=== PATIENT | female | born 1950 | race Caucasian/White ===

== ENCOUNTER → 2019-12-14 10:54 | Outpatient (BNVA) | payer MEDICARE, MEDICAID, SELFPAY | PROVIDERS: PCP Internal Medicine; Referring Provider Internal Medicine; Visit Provider Obstetrics & Gynecology | DX: N95.0 Postmenopausal bleeding (principal); R93.89 Abnormal findings on diagnostic imaging of other specified body structures | CPT/HCPCS: 99213 ==

== ENCOUNTER 2020-04-19 13:48 | Outpatient (REF) | payer MEDICARE, MEDICAID, SELFPAY ==
[2020-04-19 16:27] LABS: MANUAL DIFF FLAG NO
[2020-04-19 16:32] LABS: Basophils Percent Auto 0.4 % (0-2); Eosinophils Absolute Auto 0.1 X10*3/uL (0.0-0.4); Eosinophils Percent Auto 2.5 % (0-4); Hematocrit 36.3 % (37-47); Hemoglobin 11.8 g/dl (12.0-16.0); Imm Gran Abs Auto 0.02 X10*3/uL (0.00-0.03); Imm Gran Pct Auto 0.4 % (0.0-0.4); Lymphocytes Absolute Auto 1.5 X10*3/uL (1.2-4.9); Lymphocytes Percent Auto 26.3 % (20-40); Mean Corpuscular HGB Conc 32.5 g/dl (31.0-35.0); Mean Corpuscular Hemoglobin 32.2 pg (27.0-33.0); Mean Corpuscular Volume 98.9 fL (80-98); Mean Platelet Volume 9.1 fL (9.4-12.3); Monocytes Absolute Auto 0.5 X10*3/uL (0.1-1.2); Monocytes Percent Auto 9.2 % (2-11); Neutrophils Absolute Auto 3.4 X10*3/uL (2.0-8.3); Neutrophils Percent Auto 61.2 % (45-73); Platelet Count 276 X10*3/uL (160-400); Red Blood Count 3.67 X10*6/uL (4.20-5.50); Red Cell Distribution Width 13.1 % (11.0-16.0); White Blood Count 5.6 X10*3/uL (4.8-10.8)
[2020-04-19 16:45] LABS: Glucose Urine UA NEG (NEG); Leukocyte Esterase Urine NEG (NEG); Nitrite Urine NEG (NEG); PH 5.5 (5.0-8.0); Specific Gravity - Urine >= 1.030 (1.005-1.025); Urine Blood 3+ (NEG); Urine Ketones NEG (NEG); Urine Protein NEG (NEG-TRACE)
[2020-04-19 16:46] LABS: Appearance Urine CLEAR; Color Urine YELLOW
[2020-04-19 16:54] LABS: Bacteria Urine 1+ /LPF; Squamous Epithelial Cell Urine 1+ /LPF; WBC Urine 0 /HPF (0-4)
[2020-04-19 17:01] LABS: Alanine Aminotransferase 107 U/L (0-31); Alkaline Phosphatase 110 U/L (39-117); Anion Gap 14 (12-20); Aspartate Amino Transferase 84 U/L (5-31); Bilirubin Total 0.5 mg/dL (0.0-1.0); Blood Urea Nitrogen 18 mg/dL (9-16); C Reactive Protein 0.98 mg/dL (< or = 0.50); Calcium 8.7 mg/dL (8.4-10.2); Carbon Dioxide 25 mmol/L (22-29); Chloride 105 mmol/L (96-108); Estimated Glomerular Filt Rate > 60; Glucose Random 89 mg/dL (60-115); Lipase 36 U/L (8-78); Potassium 4.5 mmol/L (3.3-5.1); Sodium 139 mmol/L (135-145); Total Protein 7.8 g/dL (6.5-8.0)
== END 2020-04-19 13:49 | disposition home or self-care (01) ==
LOC: HO.HMGCLDS 13:48
PROVIDERS: PCP Internal Medicine; Visit Provider Internal Medicine
DX: R10.9 Unspecified abdominal pain (principal)
CPT/HCPCS: 36415; 80053; 81001; 83690; 85025; 86140

== ENCOUNTER → 2020-04-20 11:12 | Outpatient (BNV) | payer MEDICARE, MEDICAID, SELFPAY | PROVIDERS: PCP Internal Medicine; Visit Provider Internal Medicine | DX: D64.9 Anemia, unspecified (principal) | CPT/HCPCS: 99212; 99213; 99214; G2211 ==

== ENCOUNTER 2020-04-27 15:04 | Outpatient (REF) | payer MEDICARE, MEDICAID, SELFPAY | END 2020-04-27 15:05 | disposition home or self-care (01) | LOC: HO.CT 15:04 | PROVIDERS: PCP Internal Medicine; Visit Provider Internal Medicine | DX: Z13.89 Encounter for screening for other disorder (principal) ==

== ENCOUNTER → 2020-05-02 14:34 | Outpatient (BNVA) | payer MEDICARE, MEDICAID, SELFPAY | PROVIDERS: PCP Internal Medicine; Visit Provider Internal Medicine Cardiovascular Disease | DX: Z13.89 Encounter for screening for other disorder (principal) | CPT/HCPCS: 99212 ==

== ENCOUNTER 2020-05-03 12:36 | Outpatient (REF) | payer MEDICARE, MEDICAID, SELFPAY ==
--- NOTE | ~2020-05-03 | CT_ITS ---
EXAMINATION: CT ABDOMEN AND PELVIS WITH CONTRAST CLINICAL INFORMATION: Abdominal pain COMPARISON: Previous CT of the abdomen and pelvis June 2019 and pelvic ultrasound October 2019 and abdominal ultrasound October 2017 TECHNIQUE: Multidetector volumetric images were obtained from the superior aspect of the liver through the pubic symphysis following administration 85 mL of Omnipaque 350 intravenous contrast. Sagittal and coronal reformatted images were obtained on the technologist's workstation. Oral contrast: Yes This CT examination was performed using dose optimization techniques as appropriate, variously including the following: *Automated exposure control *Adjustment of mA and/or kV according to patient size (this includes techniques or standardized protocols for targeted exams where dose is matched to indication/reason for exam; i.e. extremities or head) *Use of iterative reconstruction technique DLP: 537 mGy-cm FINDINGS: LUNG BASES: There are increased peripheral interstitial markings at the lung bases suggestive of interstitial lung disease. LIVER, GALLBLADDER, AND BILIARY TREE: The liver is low in attenuation suggestive of fatty infiltration. The gallbladder is been removed. There is intra and extrahepatic biliary duct dilatation. This is unchanged from previous CT June 2019. The common bile duct measures 1.8 cm. The common bile tapers likely that of the pancreas. No common bile duct stone is appreciated. PANCREAS: Unremarkable. SPLEEN: Unremarkable. ADRENAL GLANDS: Unremarkable. KIDNEYS AND URETERS: There are small bilateral low-attenuation renal lesions probably representing cysts. The largest measures 1 cm in the lower pole of the right kidney. BLADDER: Not optimally distended. GASTROINTESTINAL TRACT: There are dilated fluid-filled loops of small bowel in the lower abdomen and pelvis. There is a some small bowel fecalization. Appearance is concerning for small bowel obstruction. There may be a transition zone in the pelvis. The distal ileum does not appear dilated. There are multiple surgical clips seen in the left pelvis and presacral region. There is a small amount of fluid in the pelvis. ABDOMINAL WALL: No significant hernia is appreciated. LYMPH NODES: Normal. VASCULAR: There is evidence of atherosclerotic disease. No aneurysm is seen. PELVIC VISCERA: There is low-attenuation seen in the central uterus questionable for endometrial fluid or thickening. This measures 1.1 cm in AP dimension. OSSEOUS STRUCTURES: There are degenerative changes of the spine. There are degenerative changes at the hip joints. CT/CT abdomen pelvis w con IMPRESSION: Dilated fluid-filled small bowel suggestive of distal small bowel obstruction. The level of obstruction may be in the pelvis adjacent to surgical clips. Small amount of fluid in the pelvis. Low-attenuation in the central uterus questionable for endometrial fluid or thickening. Follow-up pelvic ultrasound should be considered, particularly if there is history of vaginal bleeding. Post cholecystectomy. Intrahepatic and extrahepatic biliary duct dilatation similar to previous exam. Small renal cysts. Mild interstitial lung disease at the lung bases. Findings will be communicated by the [place] work flow systems navigator Brianna Gordon.
[2020-05-03] MEDS: Barium Sulfate Oral (Berry) 450 ML ORAL.SUSP 900 ML PO (15:15)
[2020-05-03] MEDS: iohexoL 350 MG/ML 100 ML INFUS..BTL IV (15:16)
== END 2020-05-03 12:37 | disposition home or self-care (01) ==
LOC: HO.CT 12:36
PROVIDERS: PCP Internal Medicine; Visit Provider Internal Medicine
DX: R10.9 Unspecified abdominal pain (principal)
CPT/HCPCS: 74177; Q3014; Q9967

== ENCOUNTER 2020-05-09 16:19 | Outpatient (REF) | payer MEDICARE, MEDICAID, SELFPAY ==
[2020-05-09 17:35] LABS: Amylase 79 U/L (28-100); Lactate Dehydrogenase 238 U/L (122-220); Lipase 36 U/L (8-78)
== END 2020-05-09 16:20 | disposition home or self-care (01) ==
LOC: HO.LAB 16:19
PROVIDERS: PCP Internal Medicine; Visit Provider Nurse Practitioner
DX: R31.9 Hematuria, unspecified (principal); R10.9 Unspecified abdominal pain; R63.4 Abnormal weight loss; R11.2 Nausea with vomiting, unspecified
CPT/HCPCS: 36415; 82150; 83615; 83690

== ENCOUNTER 2020-05-11 14:10 | Outpatient (REF) | payer MEDICARE, MEDICAID, SELFPAY ==
--- NOTE | ~2020-05-11 | US_ITS ---
EXAMINATION: US RETROPERITONEAL LIMITED (RENAL ONLY) CLINICAL INFORMATION: Hematuria. COMPARISON: CT abdomen pelvis 05/03/2020. Ultrasound abdomen 10/13/2018 and 10/22/2017. X-ray abdomen 06/06/2017. X-ray KUB 05/04/2016. TECHNIQUE: Real-time imaging of the kidneys. FINDINGS: RIGHT KIDNEY: 10.8 x 6.0 x 5.1 cm (SAG x AP x TRV). The kidney is normal in size, contour, and echogenicity. Renal cortical thickness is normal. There is a 1.2 x 1.4 x 1.4 cm cyst in the upper pole. No renal calculi or hydronephrosis. LEFT KIDNEY: 10.1 x 4.8 x 3.9 cm (SAG x AP x TRV). The kidney is normal in size, contour, and echogenicity. Renal cortical thickness is normal. There is a 1.2 x 1.1 x 0.9 cm cyst in the upper pole. No renal calculi or hydronephrosis. US/US renal BI IMPRESSION: Small bilateral renal cysts.
== END 2020-05-11 14:11 | disposition home or self-care (01) ==
LOC: HO.HMGCX 14:10
PROVIDERS: Visit Provider Nurse Practitioner
DX: R10.9 Unspecified abdominal pain (principal); R11.2 Nausea with vomiting, unspecified; R31.9 Hematuria, unspecified; R63.4 Abnormal weight loss
CPT/HCPCS: 76775

== ENCOUNTER 2020-05-19 09:05 | Outpatient (REF) | payer MEDICARE, MEDICAID, SELFPAY ==
--- NOTE | ~2020-05-19 | FL_ITS ---
EXAMINATION: FL UPPER GI SERIES AND SMALL BOWEL SERIES CLINICAL INFORMATION: R10.33 - Periumbilical pain COMPARISON: CT abdomen and pelvis 05/03/2020 TECHNIQUE: Upper GI series and small bowel follow-through and are performed using fluoroscopic evaluation in addition to multiple fluoroscopic spot views and overhead images. The patient is imaged both upright and prone and using both thick and thin barium sulfate along with effervescent granules. Fluoroscopy time: 1.4 minutes DAP: 33.17 Gycm2 Fluoroscopic spot images: 13 Overhead Images: 6 FINDINGS: Esophageal motility appears normal. There is no obstruction, stricture, or ulceration. Small sliding hiatal hernia is noted during fluoroscopy and there is spontaneous gastroesophageal reflux to the proximal thoracic esophagus. The stomach shows no thickened folds or ulcer crater or outlet obstruction. The duodenal bulb is pliable and without ulcer crater or scarring. The post bulbar duodenum is unremarkable. Contrast is followed through the small bowel and reaches the colon within 90 minutes. There is no small bowel dilatation, angulated or tethered loops, or abnormal thickening of small bowel folds. There are no fixed or rigid segments of small bowel on fluoroscopic exam with compression. No abnormal bowel seen in the deep pelvis in area of small bowel thickening noted on recent CT. The terminal ileum appears normal. FL/FL small bowel follow through IMPRESSION: 1. Small sliding hiatal hernia with spontaneous gastroesophageal reflux to the proximal thoracic esophagus. No ulceration or scarring or stricture. 2. Normal small bowel series.
--- NOTE | ~2020-05-19 | FL_ITS ---
EXAMINATION: FL UPPER GI SERIES AND SMALL BOWEL SERIES CLINICAL INFORMATION: R10.33 - Periumbilical pain COMPARISON: CT abdomen and pelvis 05/03/2020 TECHNIQUE: Upper GI series and small bowel follow-through and are performed using fluoroscopic evaluation in addition to multiple fluoroscopic spot views and overhead images. The patient is imaged both upright and prone and using both thick and thin barium sulfate along with effervescent granules. Fluoroscopy time: 1.4 minutes DAP: 33.17 Gycm2 Fluoroscopic spot images: 13 Overhead Images: 6 FINDINGS: Esophageal motility appears normal. There is no obstruction, stricture, or ulceration. Small sliding hiatal hernia is noted during fluoroscopy and there is spontaneous gastroesophageal reflux to the proximal thoracic esophagus. The stomach shows no thickened folds or ulcer crater or outlet obstruction. The duodenal bulb is pliable and without ulcer crater or scarring. The post bulbar duodenum is unremarkable. Contrast is followed through the small bowel and reaches the colon within 90 minutes. There is no small bowel dilatation, angulated or tethered loops, or abnormal thickening of small bowel folds. There are no fixed or rigid segments of small bowel on fluoroscopic exam with compression. No abnormal bowel seen in the deep pelvis in area of small bowel thickening noted on recent CT. The terminal ileum appears normal. FL/FL upper GI w air IMPRESSION: 1. Small sliding hiatal hernia with spontaneous gastroesophageal reflux to the proximal thoracic esophagus. No ulceration or scarring or stricture. 2. Normal small bowel series.
== END 2020-05-19 09:06 | disposition home or self-care (01) ==
LOC: HO.XRAY 09:05
PROVIDERS: PCP Internal Medicine; Visit Provider Nurse Practitioner
DX: R10.33 Periumbilical pain (principal); R31.9 Hematuria, unspecified; R10.9 Unspecified abdominal pain; R63.4 Abnormal weight loss; R11.2 Nausea with vomiting, unspecified
CPT/HCPCS: 74246; 74248; 74250

== ENCOUNTER 2020-05-30 14:36 | Outpatient (REF) | payer MEDICARE, MEDICAID, SELFPAY ==
--- NOTE | ~2020-05-30 | US_ITS ---
EXAMINATION: US PELVIC COMPLETE CLINICAL INFORMATION: Postmenopausal bleeding COMPARISON: None TECHNIQUE: Transabdominal and transvaginal ultrasound pelvis is performed. FINDINGS: The uterus is retroverted measuring 4.7 cm in length, 2.5 cm in AP and 3.2 cm wide. The uterus is homogeneous in echotexture. The endometrial thickness is 0.34 cm. Both ovaries are unremarkable. No focal lesion seen. There is no free fluid in the cul-de-sac. US/US pelvic complete IMPRESSION: Unremarkable uterus. Ovaries are not seen.
--- NOTE | ~2020-05-30 | US_ITS ---
EXAMINATION: US PELVIC COMPLETE CLINICAL INFORMATION: Postmenopausal bleeding COMPARISON: None TECHNIQUE: Transabdominal and transvaginal ultrasound pelvis is performed. FINDINGS: The uterus is retroverted measuring 4.7 cm in length, 2.5 cm in AP and 3.2 cm wide. The uterus is homogeneous in echotexture. The endometrial thickness is 0.34 cm. Both ovaries are unremarkable. No focal lesion seen. There is no free fluid in the cul-de-sac. US/US transvaginal IMPRESSION: Unremarkable uterus. Ovaries are not seen.
== END 2020-05-30 14:37 | disposition home or self-care (01) ==
LOC: HO.HMGCX 14:36
PROVIDERS: Visit Provider Internal Medicine
DX: N95.0 Postmenopausal bleeding (principal)
CPT/HCPCS: 76830; 76856

== ENCOUNTER 2020-06-01 14:51 | Outpatient (REF) | payer MEDICARE, MEDICAID, SELFPAY ==
[2020-06-01 16:56] LABS: Alanine Aminotransferase 109 U/L (0-31); Albumin Level 3.8 g/dL (3.5-5.0); Alkaline Phosphatase 111 U/L (39-117); Amylase 81 U/L (28-100); Anion Gap 14 (12-20); Aspartate Amino Transferase 100 U/L (5-31); Bilirubin Total 0.4 mg/dL (0.0-1.0); Blood Urea Nitrogen 22 mg/dL (9-16); Calcium 8.5 mg/dL (8.4-10.2); Carbon Dioxide 26 mmol/L (22-29); Chloride 105 mmol/L (96-108); Estimated Glomerular Filt Rate > 60; Glucose Random 103 mg/dL (60-115); Lipase 46 U/L (8-78); Potassium 4.3 mmol/L (3.3-5.1); Sodium 141 mmol/L (135-145); Total Protein 7.4 g/dL (6.5-8.0)
== END 2020-06-01 14:52 | disposition home or self-care (01) ==
LOC: HO.LAB 14:51
PROVIDERS: PCP Internal Medicine; Visit Provider Nurse Practitioner
DX: R10.33 Periumbilical pain (principal); R10.9 Unspecified abdominal pain; R31.9 Hematuria, unspecified; R11.2 Nausea with vomiting, unspecified; R63.4 Abnormal weight loss; Z87.19 Personal history of other diseases of the digestive system
CPT/HCPCS: 36415; 80053; 82150; 83690

== ENCOUNTER 2020-06-02 15:43 | Outpatient (REF) | payer MEDICARE, MEDICAID, SELFPAY | END 2020-06-02 15:44 | disposition home or self-care (01) | LOC: HO.LAB 15:43 | PROVIDERS: PCP Internal Medicine; Visit Provider Nurse Practitioner | DX: R10.33 Periumbilical pain (principal); R10.9 Unspecified abdominal pain; R31.9 Hematuria, unspecified; R11.2 Nausea with vomiting, unspecified; R63.4 Abnormal weight loss; Z87.19 Personal history of other diseases of the digestive system | CPT/HCPCS: 87338 ==

== ENCOUNTER 2020-06-08 12:26 | Outpatient (REF) | payer MEDICARE, MEDICAID, SELFPAY ==
--- NOTE | ~2020-06-08 | CT_ITS ---
EXAMINATION: CT ABDOMEN AND PELVIS WITH CONTRAST CLINICAL INFORMATION: Nausea and vomiting COMPARISON: 05/03/2020 CT. Fluoroscopy study from 05/19/2020. TECHNIQUE: Multidetector volumetric images were obtained from the superior aspect of the liver through the pubic symphysis following administration 85 mL of Omnipaque 350 intravenous contrast. Sagittal and coronal reformatted images were obtained on the technologist's workstation. Oral contrast: Yes This CT examination was performed using dose optimization techniques as appropriate, variously including the following: *Automated exposure control *Adjustment of mA and/or kV according to patient size (this includes techniques or standardized protocols for targeted exams where dose is matched to indication/reason for exam; i.e. extremities or head) *Use of iterative reconstruction technique DLP: 383 mGy-cm FINDINGS: LUNG BASES: Minimal bibasilar reticulation may represent atelectasis or mild fibrotic change. The visualized cardiac structures are unremarkable. LIVER, GALLBLADDER, AND BILIARY TREE: The liver is normal in size, shape, and attenuation. No focal hepatic lesion or intrahepatic biliary ductal dilatation is present. Cholecystectomy. Dilated appearance of the common bile duct is unchanged from prior. No ductal filling defect. PANCREAS: Unremarkable. SPLEEN: Unremarkable. ADRENAL GLANDS: Unremarkable. KIDNEYS AND URETERS: The kidneys are normal in size, shape, and attenuation. No hydronephrosis, hydroureter, or calculi seen. No perinephric stranding. Hypoattenuating lesions are seen in both kidneys, unchanged from prior and likely representing cysts. BLADDER: Decompressed with no gross abnormality. GASTROINTESTINAL TRACT: The stomach is unremarkable. The small bowel is normal in caliber. There is no obstruction. Contrast extends into the colon. No colonic wall thickening or acute inflammation. Mild to moderate colonic stool burden. No free air. Trace pelvic free fluid. ABDOMINAL WALL: No significant hernia is appreciated. LYMPH NODES: Normal. VASCULAR: Normal caliber aorta with mild atherosclerotic calcification. PELVIC VISCERA: Retroverted uterus. No adnexal mass. OSSEOUS STRUCTURES: No acute or suspicious osseous abnormality. Multilevel degenerative changes of the spine. Degenerative changes are seen at both hips. Increased trabeculation seen in both iliac bones near the sacroiliac joints. This is similar to previous imaging. This is nonspecific. Could be associated with Paget's disease. CT/CT abdomen pelvis w con IMPRESSION: No acute abnormality of the abdomen or pelvis. There is no obstruction. No inflammatory changes. Chronic findings, including renal cysts and dilatation of the common bile duct. Likely chronic changes at the lung bases.
== END 2020-06-08 12:27 | disposition home or self-care (01) ==
LOC: HO.CT 12:26
PROVIDERS: Visit Provider Nurse Practitioner
DX: R11.2 Nausea with vomiting, unspecified (principal)
CPT/HCPCS: 74177; Q9967

== ENCOUNTER → 2020-06-14 10:31 | Outpatient (BNVA) | payer MEDICARE, MEDICAID, SELFPAY | PROVIDERS: PCP Internal Medicine; Visit Provider Nurse Practitioner | DX: R10.33 Periumbilical pain (principal); R11.2 Nausea with vomiting, unspecified; R63.4 Abnormal weight loss; K21.00 Gastro-esophageal reflux disease with esophagitis, without bleeding; M54.6 Pain in thoracic spine; Z87.19 Personal history of other diseases of the digestive system; Z85.038 Personal history of other malignant neoplasm of large intestine | CPT/HCPCS: Q3014 ==

== ENCOUNTER 2020-06-16 17:00 | Outpatient (REF) | payer MEDICARE, MEDICAID, SELFPAY ==
[2020-06-16 17:38] LABS: Ammonia 47 umol/L (13-55)
[2020-06-16 18:11] LABS: MANUAL DIFF FLAG NO
[2020-06-16 18:28] LABS: Basophils Percent Auto 0.2 % (0-2); Eosinophils Absolute Auto 0.1 X10*3/uL (0.0-0.4); Hematocrit 34.8 % (37-47); Hemoglobin 11.7 g/dl (12.0-16.0); Imm Gran Abs Auto 0.04 X10*3/uL (0.00-0.03); Imm Gran Pct Auto 0.7 % (0.0-0.4); Lymphocytes Absolute Auto 1.3 X10*3/uL (1.2-4.9); Lymphocytes Percent Auto 21.4 % (20-40); Mean Corpuscular HGB Conc 33.6 g/dl (31.0-35.0); Mean Corpuscular Hemoglobin 32.7 pg (27.0-33.0); Mean Corpuscular Volume 97.2 fL (80-98); Monocytes Absolute Auto 0.4 X10*3/uL (0.1-1.2); Monocytes Percent Auto 7.1 % (2-11); Neutrophils Absolute Auto 4.1 X10*3/uL (2.0-8.3); Neutrophils Percent Auto 68.6 % (45-73); Platelet Count 283 X10*3/uL (160-400); Red Blood Count 3.58 X10*6/uL (4.20-5.50); Red Cell Distribution Width 13.2 % (11.0-16.0)
[2020-06-16 18:34] LABS: C Reactive Protein 0.39 mg/dL (< or = 0.50); Rheumatoid Factor 21.1 IU/mL (<15.0)
[2020-06-16 19:12] LABS: Erythrocyte Sedimentation Rate 69 MM/HR (0-20)
[2020-06-17 04:32] LABS: Hepatitis B Core Antibody Nonreactive (Nonreactive); ~HepC Num1 0.13 S/CO (0.00-0.79); ~Hepatitis A Antibody IgM Nonreactive (Nonreactive); ~Hepatitis C Antibody Nonreactive (Nonreactive)
[2020-06-17 04:57] LABS: HBS Num1 0.68 mIU/mL (0-7.99); Hepatitis B Surface Antigen Negative (Negative); ~Hepatitis B Surface Antibody NONREACTIVE (Nonreactive)
[2020-06-17 07:48] LABS: Monotest Negative (Negative)
[2020-06-19 22:37] LABS: Transglutaminase Ab IgG 6 U/mL; Transglutaminase IgA 1 U/mL
[2020-06-20 13:17] LABS: Gliadin Deamidated IgA Ab 6 Units; Gliadin Deamidated IgG Ab 2 Units
[2020-06-20 14:51] LABS: Mitochondrial Antibodies NEGATIVE (NEGATIVE)
[2020-06-20 22:01] LABS: Anti Nuclear Antibody Pattern Nuclear, Speckled; Anti Nuclear Antibody Screen POSITIVE (NEGATIVE)
[2020-06-23 12:47] LABS: Smooth Muscle Antibody <20 U (<20)
== END 2020-06-16 17:01 | disposition home or self-care (01) ==
LOC: HO.LAB 17:00
PROVIDERS: PCP Internal Medicine; Visit Provider Nurse Practitioner
DX: R10.9 Unspecified abdominal pain (principal); M54.6 Pain in thoracic spine
CPT/HCPCS: 36415; 82105; 82140; 83516; 85025; 85652; 86038; 86039; 86140; 86255; 86256; 86308; 86431; 86704; 86706; 86709; 86803; 87340

== ENCOUNTER 2020-06-23 14:33 | Outpatient (REF) | payer MEDICARE, MEDICAID, SELFPAY ==
--- NOTE | ~2020-06-23 | XR_ITS ---
EXAMINATION: XR THORACIC SPINE CLINICAL INFORMATION: Pain COMPARISON: None TECHNIQUE: 3 views of the thoracic spine were obtained. FINDINGS: There is mild curvature of the proximal thoracic spine to the right with apex at T4 and lower thoracic spine to the left with apex at T12. Bone alignment is otherwise normal. There is multilevel degenerative spondylosis and degenerative disc disease. There are degenerative changes of the visualized cervical spine. No acute fracture or dislocation is seen. Paraspinal soft tissues are normal. There are old right proximal rib fractures. XR/XR thoracic spine 3V IMPRESSION: Multilevel degenerative changes.
[2020-06-23 16:27] LABS: Appearance Urine CLEAR; Color Urine YELLOW; Estimated Average Glucose 100 mg/dL; Glucose Urine UA NEG (NEG); Hemoglobin A1c % 5.1 %; Leukocyte Esterase Urine NEG (NEG); Nitrite Urine NEG (NEG); PH 5.5 (5.0-8.0); Specific Gravity - Urine >= 1.030 (1.005-1.025); Urine Blood NEG (NEG); Urine Ketones NEG (NEG); Urine Protein NEG (NEG-TRACE)
[2020-06-23 16:42] LABS: Alanine Aminotransferase 89 U/L (0-31); Albumin Level 3.9 g/dL (3.5-5.0); Alkaline Phosphatase 106 U/L (39-117); Anion Gap 11 (12-20); Aspartate Amino Transferase 69 U/L (5-31); Bilirubin Total 0.4 mg/dL (0.0-1.0); Blood Urea Nitrogen 19 mg/dL (9-16); Carbon Dioxide 25 mmol/L (22-29); Chloride 108 mmol/L (96-108); Estimated Glomerular Filt Rate > 60; Glucose Random 71 mg/dL (60-115); Potassium 5.2 mmol/L (3.3-5.1); Sodium 139 mmol/L (135-145); Total Protein 7.5 g/dL (6.5-8.0)
== END 2020-06-23 14:34 | disposition home or self-care (01) ==
LOC: HO.HMGCLDS 14:33
PROVIDERS: Absent Provider Nurse Practitioner; PCP Internal Medicine; Visit Provider Internal Medicine
DX: R10.9 Unspecified abdominal pain (principal); E83.110 Hereditary hemochromatosis; R73.9 Hyperglycemia, unspecified; M54.9 Dorsalgia, unspecified
CPT/HCPCS: 36415; 72072; 80053; 81003; 83036

== ENCOUNTER → 2020-07-06 15:28 | Outpatient (BNVA) | payer MEDICARE, MEDICAID, SELFPAY | PROVIDERS: PCP Internal Medicine; Visit Provider Nurse Practitioner | DX: Z13.89 Encounter for screening for other disorder (principal) | CPT/HCPCS: Q3014 ==

== ENCOUNTER 2020-08-03 13:55 | Outpatient (REF) | payer MEDICARE, MEDICAID, SELFPAY ==
[2020-08-06 23:07] LABS: HPV 16 RNA NOT DETECTED (NOT DETECTED); HPV mRNA E6/E7 rflx Detected (Not Detected)
== END 2020-08-03 13:56 | disposition home or self-care (01) ==
LOC: HO.LAB 13:55
PROVIDERS: Visit Provider Obstetrics & Gynecology
DX: Z01.419 Encounter for gynecological examination (general) (routine) without abnormal findings (principal); Z11.51 Encounter for screening for human papillomavirus (HPV); N95.0 Postmenopausal bleeding; Z78.0 Asymptomatic menopausal state
CPT/HCPCS: 87624; 87625; 88142

== ENCOUNTER 2020-08-19 21:18 | Observation (INO) | payer MEDICARE, MEDICAID, SELFPAY ==
--- NOTE | 2020-08-19 | ECG_ITS ---
Test Reason : DIZZINESS Blood Pressure : / mmHG Vent. Rate : 077 BPM Atrial Rate : 077 BPM P-R Int : 152 ms QRS Dur : 100 ms QT Int : 406 ms P-R-T Axes : 035 -26 -02 degrees QTc Int : 459 ms Normal sinus rhythm Minimal voltage criteria for LVH, may be normal variant Cannot rule out Anterior infarct (cited on or before 19-AUG-2020) Abnormal ECG When compared with ECG of 12-MAR-2018 23:37, Incomplete right bundle branch block is no longer Present Referred By: Priscilla Doyle Electronically Signed By:MARGIE ALLEN MD
--- NOTE | ~2020-08-19 | CT_ITS ---
EXAMINATION: CT HEAD WITHOUT CONTRAST CLINICAL INFORMATION: Vertigo COMPARISON: 10/08/2017 TECHNIQUE: Contiguous axial imaging was performed from the skull base to vertex without intravenous administration of contrast. This CT examination was performed using dose optimization techniques as appropriate, variously including the following: *Automated exposure control *Adjustment of mA and/or kV according to patient size (this includes techniques or standardized protocols for targeted exams where dose is matched to indication/reason for exam; i.e. extremities or head) *Use of iterative reconstruction technique DLP: 638 mGy-cm FINDINGS: There is no evidence of acute intracranial hemorrhage or territorial infarction. No abnormal mass effect or midline shift is seen. Kerr to white matter differentiation is well preserved. No extra-axial fluid collections are identified. The ventricles are normal in size. Calcifications are noted in the bilateral basal ganglia and also in the bilateral centrum semiovale. The osseous structures and soft tissues are normal. The mastoid air cells and visualized portions of the paranasal sinuses are well aerated. CT/CT head/brain wo con IMPRESSION: No acute intracranial pathology.
--- NOTE | ~2020-08-19 | CT_ITS ---
EXAMINATION: CT ABDOMEN AND PELVIS WITHOUT CONTRAST CLINICAL INFORMATION: Abdominal pain COMPARISON: 06/08/2020 TECHNIQUE: Multidetector volumetric imaging was performed from the superior aspect of the liver through the pubic symphysis. Sagittal and coronal reformatted images were obtained on the technologist's workstation. This CT examination was performed using dose optimization techniques as appropriate, variously including the following: *Automated exposure control *Adjustment of mA and/or kV according to patient size (this includes techniques or standardized protocols for targeted exams where dose is matched to indication/reason for exam; i.e. extremities or head) *Use of iterative reconstruction technique DLP: 553 mGy-cm FINDINGS: The lack of intravenous contrast limits evaluation of the solid visceral organs including the liver, spleen, pancreas, and kidneys. LUNG BASES: Bibasilar peripheral reticulation again seen suggesting mild fibrosis. Normal heart size. LIVER, GALLBLADDER, AND BILIARY TREE: Liver has a nodular contour suggesting cirrhosis status post cholecystectomy. Chronic dilation of the common bile duct up to 1.7 cm. PANCREAS: Limited non-contrast evaluation is normal. No nadira-pancreatic fluid. SPLEEN: Limited non-contrast evaluation is normal. ADRENAL GLANDS: Normal; no adrenal mass. KIDNEYS AND URETERS: Limited non-contrast evaluation is normal. No hydronephrosis, hydroureter, or calculi seen. No perinephric stranding. GASTROINTESTINAL TRACT: Stomach and small bowel are nondilated. Tortuous colon. Scattered colonic diverticulosis. Again seen are surgical clips along the course of the sigmoid colon. Small volume of pelvic free fluid again seen similar perhaps slightly increased from the prior study 06/08/2020. ABDOMINAL WALL: No hernia seen. LYMPH NODES: No pathologically enlarged lymph nodes in the abdomen or pelvis. VASCULAR: Normal caliber abdominal aorta. BLADDER: Unremarkable. PELVIC VISCERA: Normal noncontrast appearance of the uterus and ovaries. OSSEOUS STRUCTURES: No acute or suspicious osseous abnormalities. CT/CT abdomen pelvis wo con IMPRESSION: No acute CT findings. Surgical clips adjacent the distal sigmoid colon. Chronic common bile duct dilation.
[2020-08-19 21:22] VITALS: BP 123/77; BP 146/82; PULSE 78; PULSE 87; RESP 18; TEMP 36.9; O2SAT 95; O2SAT 97; BMI 29.0
[2020-08-19 21:42] LABS: MANUAL DIFF FLAG NO
[2020-08-19 21:43] LABS: Basophils Percent Auto 0.2 % (0-2); Eosinophils Absolute Auto 0.1 X10*3/uL (0.0-0.4); Eosinophils Percent Auto 0.9 % (0-4); Hematocrit 33.4 % (37-47); Hemoglobin 11.2 g/dl (12.0-16.0); Imm Gran Abs Auto 0.02 X10*3/uL (0.00-0.03); Imm Gran Pct Auto 0.3 % (0.0-0.4); Mean Corpuscular HGB Conc 33.5 g/dl (31.0-35.0); Mean Corpuscular Hemoglobin 32.7 pg (27.0-33.0); Mean Corpuscular Volume 97.4 fL (80-98); Mean Platelet Volume 8.7 fL (9.4-12.3); Monocytes Absolute Auto 0.4 X10*3/uL (0.1-1.2); Monocytes Percent Auto 6.2 % (2-11); Neutrophils Absolute Auto 4.9 X10*3/uL (2.0-8.3); Neutrophils Percent Auto 76.4 % (45-73); Platelet Count 231 X10*3/uL (160-400); Red Blood Count 3.43 X10*6/uL (4.20-5.50); White Blood Count 6.5 X10*3/uL (4.8-10.8)
[2020-08-19 22:00] LABS: Glucose Urine UA NEG (NEG); Leukocyte Esterase Urine NEG (NEG); Nitrite Urine NEG (NEG); Specific Gravity - Urine <= 1.005 (1.005-1.025); Urine Blood NEG (NEG); Urine Ketones NEG (NEG); Urine Protein NEG (NEG-TRACE)
[2020-08-19 22:01] VITALS: BP 113/67; PULSE 70; RESP 24; TEMP 37.1; O2SAT 97
[2020-08-19 22:05] LABS: Appearance Urine CLEAR; Color Urine YELLOW
[2020-08-19 22:16] LABS: Alanine Aminotransferase 69 U/L (0-31); Albumin Level 3.9 g/dL (3.5-5.0); Alkaline Phosphatase 110 U/L (39-117); Anion Gap 11 (12-20); Aspartate Amino Transferase 62 U/L (5-31); Bilirubin Total 0.3 mg/dL (0.0-1.0); Blood Urea Nitrogen 18 mg/dL (9-16); Calcium 8.7 mg/dL (8.4-10.2); Carbon Dioxide 24 mmol/L (22-29); Chloride 106 mmol/L (96-108); Creatinine Clr Calc Pharmacy 66.8; Estimated Glomerular Filt Rate > 60; Glucose Random 100 mg/dL (60-115); Potassium 4.3 mmol/L (3.3-5.1); Sodium 137 mmol/L (135-145); Total Protein 7.4 g/dL (6.5-8.0)
[2020-08-19 22:21] LABS: Troponin-I High Sensitivity < 3.5 ng/L (<3.5-17.0)
--- NOTE | 2020-08-19 22:41 | ED.NAVMDI ---
HPI - Nausea/Vomiting/Diarrhea General Chief complaint: Nausea/Vomiting/Diarrhea Stated complaint: nausea vomiting Time Seen by Provider: 08/19/20 22:38 History of Present Illness HPI Narrative: Patient is a 71-year-old female. Presents today with having sudden onset of spinning sensation. The sensations worse with movement. Worse with turning her head. There is no chest pain. There is positive nausea vomiting. There is no focal weakness. Patient is from home. No history of similar symptoms. No changes in hearing. No cough no congestion or upper respiratory symptoms. Patient from home. No new medication. No travel history. Related Data Home Medications Medication Instructions Recorded Confirmed cetirizine 10 mg tablet 10 mg PO DAILY 12/09/19 07/19/20 dicyclomine 20 mg tablet 20 mg PO QID 12/09/19 07/19/20 epinephrine 0.3 mg/0.3 mL 0.3 mg IM USEASDIRECTD 12/09/19 07/19/20 injection, auto-injector metoprolol succinate 25 mg 25 mg PO DAILY 12/09/19 07/19/20 tablet,extended release 24 hr Previous Rx's Medication Instructions Recorded pantoprazole 40 mg tablet,delayed 40 mg PO DAILY #90 tab 02/12/20 release cholecalciferol (vitamin D3) 125 125 mcg PO DAILY #30 tab 03/02/20 mcg (5,000 unit) tablet [id number] 1 cap PO TID #90 cap 04/19/20 24,000-76,000-120,000 unit capsule,delayed rel hydrocortisone 2.5 % topical cream 1 appl MA BID PRN #30 g 05/03/20 with perineal applicator simethicone 180 mg capsule 180 mg PO QID 30 Days #120 cap 05/03/20 sucralfate 100 mg/mL oral 10 ml PO BID 30 Days #600 ml 05/03/20 suspension fluticasone propionate 50 50 mcg INTRANASAL DAILY #16 g 08/12/20 mcg/actuation nasal spray,suspension permethrin 1 % topical liquid 60 ml TOPICAL ONCE #59 ml 08/12/20 Allergies Allergy/AdvReac Type Severity Reaction Status Date / Time No Known Allergies Allergy Verified 08/03/20 14:05 [No Known Allergies*] Review of Systems Review of Systems: Constitutional: No Weight loss, No Fever, No Chills, No Night Sweats, No Fatigue, No Malaise ENT/Mouth: No Hearing loss, No Ear Pain, No Nasal Congestion, No Sinus Pain, No Hoarseness, No sore throat, No Rhinorrhea, No Swallowing Difficulty Eyes: No Eye Pain, No Swelling, No Redness, No Foreign Body, No Discharge, No Vision Changes Cardiovascular: No Chest Pain, No SOB, No Dyspnea on Exertion, No Orthopnea, No Edema, No Palpitations Respiratory: No Cough, No Sputum, No Wheezing, No Smoke Exposure, No Dyspnea Gastrointestinal: No Nausea, No Vomiting, No Diarrhea, No Constipation, No abdominal Pain, No Hematochezia, No Melena Genitourinary: no irregular bleeding, No Dysuria, No Urinary Frequency, No Hematuria, No Urinary Incontinence, No Urgency, No Flank Pain, No Urinary Flow Changes, No Hesitancy Musculoskeletal: No joint pain, No Myalgias, No Joint Swelling Skin: No Skin Lesions, No rash Neuro: Positive spinning sensation Psych: No Anxiety/Panic, No Depression, No SI/HI/AH/VH, No Social Issues, Heme/Lymph: No Bruising, No Bleeding,No Lymphadenopathy Endocrine: No Polyuria, No Polydipsia, No Temperature Intolerance [facility] Past Medical History Medical History Annual physical exam Colon cancer Hemochromatosis Hyperglycemia IBS (irritable bowel syndrome) Palpitation Recurrent intestinal obstruction Tubular adenoma Vaginal cancer Surgical History H/O colectomy H/O colonoscopy History of esophagogastroduodenoscopy (EGD) Family History Family History Father Dementia GSW (gunshot wound) CAD (coronary artery disease) Mother GSW (gunshot wound) Family/Other Diabetes mellitus Brother CAD (coronary artery disease) Sister No problems noted. Social History Social History Alcohol intake: current Alcohol intake frequency: 0-2 drinks per day Smoked in Last 30 Days: No Use of substances other than those prescribed or required for medical reasons: No Advance Directives: No Advance Directives Information Provided: No Sexual orientation: Straight/Heterosexual Gender identity: female Physical Exam Vital Signs: Vital Signs: Last Vital Signs Temp 98.7 F 08/19/20 22:01 Pulse 78 08/20/20 00:24 Resp 18 08/20/20 00:00 BP 133/77 08/20/20 00:24 Pulse Ox 100 08/20/20 00:00 Body Mass Index 29.0 Appearance: Alert. Oriented X3. No acute distress. Eyes: Pupils equal, round and reactive to light. ENT: Pharynx normal. Neck: Normal inspection. Neck supple. No lymph nodes noted. No crepitus CVS: Normal heart rate and rhythm. Pulses normal. Normal S1 and S2 Respiratory: No respiratory distress. Breath sounds normal. No Wheezing. No rales Abdomen: Soft and nontender. No rigidity. No distention. good BS x4 Skin: Skin warm and dry. Normal skin color. Normal skin turgor. Extremities: No lower extremity edema. Neurovascular intact to all extremities. No Lacerations. No Rash Neuro: Oriented X 3. No motor deficit. No sensory deficit. Moving all extermities. No slurred speech. Positive [place] Hallpike's test on turning patient's head to the right or to the left. This patient's symptoms were reproduced. MDM - Nausea/Vomiting/Diarrhea MDM Narrative Medical decision making narrative: Sudden onset of dizziness. Made worse with position. CT scan head was negative for any acute evidence of mass. Given Antivert here given Zofran and also Ativan. Only moderate relief. Unable to ambulate. Will admit patient for vertigo. Currently in stable condition. Medical Records Attestation: I reviewed the patient's medical records. Lab Data Attestation: I reviewed the patient's lab results. Result diagrams: 08/19/20 21:35 08/19/20 21:35 Labs: Lab Results 08/19/20 08/19/20 08/19/20 Range/Units 21:35 21:35 21:35 WBC 6.5 (4.8-10.8) X10*3/uL RBC 3.43 L (4.20-5.50) X10*6/uL Hgb 11.2 L (12.0-16.0) g/dl Hct 33.4 L (37-47) % MCV 97.4 (80-98) fL MCH 32.7 (27.0-33.0) pg MCHC 33.5 (31.0-35.0) g/dl RDW 13.0 (11.0-16.0) % Plt Count 231 (160-400) X10*3/uL MPV 8.7 L (9.4-12.3) fL Immature Gran % (Auto) 0.3 (0.0-0.4) % Neut % (Auto) 76.4 H (45-73) % Lymph % (Auto) 16.0 L (20-40) % [place] % (Auto) 6.2 (2-11) % Eos % (Auto) 0.9 (0-4) % Baso % (Auto) 0.2 (0-2) % Lymph # (Auto) 1.0 L (1.2-4.9) X10*3/uL [place] # (Auto) 0.4 (0.1-1.2) X10*3/uL Eos # (Auto) 0.1 (0.0-0.4) X10*3/uL Baso # (Auto) 0.0 (0.0-0.2) X10*3/uL Abs Immat Gran (auto) 0.02 (0.00-0.03) X10*3/uL Absolute Neuts (auto) 4.9 (2.0-8.3) X10*3/uL Absolute Nucleated RBC 0.000 (0.0-0.012) X10*3/uL Nucleated RBC % (auto) 0.0 (0.0-0.2) /100WBC Sodium 137 (135-145) mmol/L Potassium 4.3 (3.3-5.1) mmol/L Chloride 106 (96-108) mmol/L Carbon Dioxide 24 (22-29) mmol/L Anion Gap 11 L (12-20) BUN 18 H (9-16) mg/dL Creatinine 0.82 (0.5-1.4) mg/dL Estim Creat Clear Calc 66.8 Estimated GFR > 60 Random Glucose 100 D (60-115) mg/dL Calcium 8.7 (8.4-10.2) mg/dL Total Bilirubin 0.3 (0.0-1.0) mg/dL AST 62 H (5-31) U/L ALT 69 H (0-31) U/L Alkaline Phosphatase 110 (39-117) U/L Troponin I High Sens < 3.5 (<3.5-17.0) ng/L Total Protein 7.4 (6.5-8.0) g/dL Albumin 3.9 (3.5-5.0) g/dL Urine Color Urine Appearance Urine pH (5.0-8.0) Ur Specific Lynch (1.005-1.025) Urine Protein (NEG-TRACE) MG/DL Urine Glucose (UA) (NEG) MG/DL Urine Ketones (NEG) MG/DL Urine Blood (NEG) Urine Nitrite (NEG) Ur Leukocyte Esterase (NEG) 08/19/20 Range/Units 21:53 WBC (4.8-10.8) X10*3/uL RBC (4.20-5.50) X10*6/uL Hgb (12.0-16.0) g/dl Hct (37-47) % MCV (80-98) fL MCH (27.0-33.0) pg MCHC (31.0-35.0) g/dl RDW (11.0-16.0) % Plt Count (160-400) X10*3/uL MPV (9.4-12.3) fL Immature Gran % (Auto) (0.0-0.4) % Neut % (Auto) (45-73) % Lymph % (Auto) (20-40) % [place] % (Auto) (2-11) % Eos % (Auto) (0-4) % Baso % (Auto) (0-2) % Lymph # (Auto) (1.2-4.9) X10*3/uL [place] # (Auto) (0.1-1.2) X10*3/uL Eos # (Auto) (0.0-0.4) X10*3/uL Baso # (Auto) (0.0-0.2) X10*3/uL Abs Immat Gran (auto) (0.00-0.03) X10*3/uL Absolute Neuts (auto) (2.0-8.3) X10*3/uL Absolute Nucleated RBC (0.0-0.012) X10*3/uL Nucleated RBC % (auto) (0.0-0.2) /100WBC Sodium (135-145) mmol/L Potassium (3.3-5.1) mmol/L Chloride (96-108) mmol/L Carbon Dioxide (22-29) mmol/L Anion Gap (12-20) BUN (9-16) mg/dL Creatinine (0.5-1.4) mg/dL Estim Creat Clear Calc Estimated GFR Random Glucose (60-115) mg/dL Calcium (8.4-10.2) mg/dL Total Bilirubin (0.0-1.0) mg/dL AST (5-31) U/L ALT (0-31) U/L Alkaline Phosphatase (39-117) U/L Troponin I High Sens (<3.5-17.0) ng/L Total Protein (6.5-8.0) g/dL Albumin (3.5-5.0) g/dL Urine Color YELLOW Urine Appearance CLEAR Urine pH 6.0 (5.0-8.0) Ur Specific Lynch <= 1.005 (1.005-1.025) Urine Protein NEG (NEG-TRACE) MG/DL Urine Glucose (UA) NEG (NEG) MG/DL Urine Ketones NEG (NEG) MG/DL Urine Blood NEG (NEG) Urine Nitrite NEG (NEG) Ur Leukocyte Esterase NEG (NEG) Discharge Plan Discharge Prescriptions: No Action pantoprazole 40 mg tablet,delayed release (DR/EC) 40 mg PO DAILY Qty: 90 RF: 2 cholecalciferol (vitamin D3) [Vitamin D3] 125 mcg (5,000 unit) tablet 125 mcg PO DAILY Qty: 30 RF: 6 permethrin 1 % liquid 60 ml topical ONCE Qty: 59 RF: 1 fluticasone propionate 50 mcg/actuation spray,suspension 50 mcg intranasal DAILY Qty: 16 RF: 3 nrwnpv-bgrteumz-twkabbb 24,000-76,000 -120,000 unit capsule,delayed release(DR/EC) 1 cap PO TID Qty: 90 RF: 3 metoprolol succinate 25 mg tablet extended release 24 hr 25 mg PO DAILY RF: 0 cetirizine 10 mg tablet 10 mg PO DAILY RF: 0 dicyclomine 20 mg tablet 20 mg PO QID RF: 0 epinephrine 0.3 mg/0.3 mL auto-injector 0.3 mg IM USEASDIRECTD RF: 0 sucralfate [Carafate] 100 mg/mL suspension 10 ml PO BID 30 Days Qty: 600 RF: 6 hydrocortisone [Proctosol HC] 2.5 % cream with perineal applicator 1 appl MA BID PRN (Reason: hemorrhoids) Qty: 30 RF: 0 simethicone 180 mg capsule 180 mg PO QID 30 Days Qty: 120 RF: 3
[2020-08-19] MEDS: 0.9 % Sodium Chloride 1,000 ML 999 ML IV (22:44)
[2020-08-19] MEDS: Meclizine HCl 25 MG TABLET PO (22:44)
[2020-08-19] MEDS: ondansetron HCL 4 MG/2 ML VIAL IVPUSH (23:22)
[2020-08-20] VITALS (11 sets, daily range): BP systolic 109–134; BP diastolic 52–80; PULSE 60–92; RESP 16–20; TEMP 36.3–37.3; O2SAT 95–100
[2020-08-20] MEDS: LORazepam 2 MG/ML VIAL 0.5 MG IVPUSH (00:36)
--- NOTE | 2020-08-20 01:47 | PM.IMHP ---
History of Present Illness Date of Service: 08/20/20 Chief Complaint: Dizziness 70-year-old female with a past medical history of colon cancer, vaginal cancer, interval bowel syndrome, history of intestinal obstruction, presented to the hospital with a chief complaint of dizziness. Patient mentioned that this evening she was driving and suddenly felt disease subsequently she went home and laid down thinking it would improve but after she woke up her symptoms did not improve and she continued to have dizziness/room spinning. Mentions that every time she changes the position the dizziness worsens; when she tries to walk she felt wobbly. Had a fall denies any head strike or loss of consciousness. Denies any hip pain back pain. Given symptoms are not improving she decided to come to the ER for further evaluation. Denies any chest pain palpitations. Denies any numbness tingling. Denies any fever chills cough. Patient mentioned that when she had episodes of dizziness she had associated nausea and vomiting. Denies any blood in the vomitus. Review of all other systems is negative except mentioned above ER course: Per ER team patient exam was nonfocal CT head showed no acute findings labs were essentially benign; given a dose of meclizine as the patient continued to have symptoms decided to admit to the hospital for further management. [facility] Medical History (Updated 08/20/20 @ 15:46 by Miladys Garica RN) Colon cancer Hemochromatosis Hyperglycemia IBS (irritable bowel syndrome) Palpitation Recurrent intestinal obstruction Seasonal allergies Tubular adenoma Vaginal cancer Family History Father Dementia GSW (gunshot wound) CAD (coronary artery disease) Mother GSW (gunshot wound) Family/Other Diabetes mellitus Brother CAD (coronary artery disease) Sister No problems noted. Surgical History H/O colectomy H/O colonoscopy History of esophagogastroduodenoscopy (EGD) Social History Household Members: Other Housing: House Do you presently have visiting nurse or other home services: No Alcohol intake: current Alcohol intake frequency: 0-2 drinks per day Patient Tobacco Use Status: Never used Tobacco Smoked in Last 30 Days: No Use of substances other than those prescribed or required for medical reasons: No Currently Displaying Signs/Symptoms of Drug Intoxication Withdrawal: No Have you been hit, kicked, punched, or otherwise hurt by someone within the past year? If so, by whom?: No Do you feel safe in your current relationship?: No Current Relationship Is there a partner from a previous relationship who is making you feel unsafe now?: No Are you made to feel afraid or neglected: No Yazidi Healthcare Practices: Orthodox Advance Directives: No Advance Directives Information Provided: No Advance Directives on File: No Do you have thoughts of harming others: None Do you have a plan to hurt others: No Plan Recently lost weight without trying: No Nutrition Risks: No Nutritional Risk Patient : No : No Poor oral hygiene: No service: No Current occupational status: unemployed Sexual orientation: Straight/Heterosexual Gender identity: female Meds Allergies Allergy/AdvReac Type Severity Reaction Status Date / Time No Known Allergies Allergy Verified 08/03/20 14:05 [No Known Allergies*] Active Medications: Current Medications Generic Name Dose Route Start Last Admin Trade Name Freq PRN Reason Stop Dose Admin Acetaminophen 650 mg 08/20/20 01:43 Acetaminophen 325 Mg Tablet PO Q6H PRN Pain, Mild (Pain Scale 1-3) Sodium Chloride 1,000 mls @ 100 mls/hr 08/20/20 01:45 Ns IVCONT .Q10H FRANCISCO Magnesium Hydroxide 30 ml 08/20/20 01:43 Milk Of Magnesia 30 Ml Oral.Susp PO DAILY PRN Constipation Meclizine HCl 25 mg 08/20/20 01:43 Meclizine Hcl 25 Mg Tablet PO Q8H PRN dizziness Sodium Chloride 3 ml 08/20/20 08:00 0.9 % Sodium Chloride Flush 3 Ml Syringe IVFLUSH QSHIFT [facility] Home Medications Medication Instructions Recorded Confirmed Last Taken Type amoxicillin 1 cap PO BID 08/20/20 08/20/20 Unknown History fluticasone propionate 1 spray INTRANASAL DAILY 08/20/20 08/20/20 Unknown History [id number] [Creon] 1 cap PO TID 08/20/20 08/20/20 Unknown History pantoprazole 1 tab PO DAILY 08/20/20 08/20/20 Unknown History permethrin 1 appl TOPICAL ONCE 08/20/20 08/20/20 Unknown History sucralfate 10 ml PO BID 08/20/20 08/20/20 Unknown History Physical Exam Vital Signs and Narrative: Vital Signs: Last Vital Signs Temp 98.7 F 08/19/20 22:01 Pulse 78 08/20/20 00:24 Resp 18 08/20/20 00:00 BP 133/77 08/20/20 00:24 Pulse Ox 100 08/20/20 00:00 Body Mass Index 29.0 Gen: Appears be in no acute distress HEENT: NCAT, Moist mucosa. Pulmonary: Vesicular breath sounds, fair air entry CVS: Normal S1-S2 Abdomen: BS+, Soft, Nontender Extremities: Warm well perfused Neuro: Alert and awake. Nonfocal Results Labs CBC and Chem 7: 08/20/20 04:42 08/20/20 04:42 Labs: Laboratory Results - last 24 hr 08/19/20 08/19/20 08/19/20 21:35 21:35 21:35 MCV 97.4 MCH 32.7 MCHC 33.5 RDW 13.0 Plt Count 231 MPV 8.7 L Immature Gran % (Auto) 0.3 Neut % (Auto) 76.4 H Lymph % (Auto) 16.0 L [place] % (Auto) 6.2 Eos % (Auto) 0.9 Baso % (Auto) 0.2 Lymph # (Auto) 1.0 L [place] # (Auto) 0.4 Eos # (Auto) 0.1 Baso # (Auto) 0.0 Abs Immat Gran (auto) 0.02 Absolute Neuts (auto) 4.9 Absolute Nucleated RBC 0.000 Nucleated RBC % (auto) 0.0 Anion Gap 11 L Estim Creat Clear Calc 66.8 Estimated GFR > 60 Random Glucose 100 D Calcium 8.7 Total Bilirubin 0.3 AST 62 H ALT 69 H Alkaline Phosphatase 110 Troponin I High Sens < 3.5 Total Protein 7.4 Albumin 3.9 Urine Color Urine Appearance Urine pH Ur Specific [place] Urine Protein Urine Glucose (UA) Urine Ketones Urine Blood Urine Nitrite Ur Leukocyte Esterase 08/19/20 21:53 MCV MCH MCHC RDW Plt Count MPV Immature Gran % (Auto) Neut % (Auto) Lymph % (Auto) [place] % (Auto) Eos % (Auto) Baso % (Auto) Lymph # (Auto) [place] # (Auto) Eos # (Auto) Baso # (Auto) Abs Immat Gran (auto) Absolute Neuts (auto) Absolute Nucleated RBC Nucleated RBC % (auto) Anion Gap Estim Creat Clear Calc Estimated GFR Random Glucose Calcium Total Bilirubin AST ALT Alkaline Phosphatase Troponin I High Sens Total Protein Albumin Urine Color YELLOW Urine Appearance CLEAR Urine pH 6.0 Ur Specific [place] <= 1.005 Urine Protein NEG Urine Glucose (UA) NEG Urine Ketones NEG Urine Blood NEG Urine Nitrite NEG Ur Leukocyte Esterase NEG Imaging Radiologist's Impressions: Impressions Head CT 08/19/20 22:38 IMPRESSION: No acute intracranial pathology. Assessment and Plan (1) Dizziness: Status: Acute 70-year-old female with a past medical history of vaginal cancer, colon cancer, hemochromatosis, Eldepryl bowel syndrome presented to the hospital with a chief complaint of dizziness. Dizziness: Concern for possible BPPV. Exam was not nonfocal. Fall precautions. PT/OT eventually Meclizine p.r.n. Neurology consult Telemetry Cycle cardiac enzymes Echocardiogram DVT prophylaxis: SCD boots Code status: Full code
[2020-08-20] MEDS: 0.9 % Sodium Chloride 1,000 ML 100 ML IVCONT ×3 (02:24→22:38)
[2020-08-20 02:32] LABS: COVID-19 Test Negative (Negative); IDNOW Serial# 9DD0AD1C
[2020-08-20 05:16] LABS: MANUAL DIFF FLAG NO
[2020-08-20 05:27] LABS: Basophils Percent Auto 0.2 % (0-2); Eosinophils Absolute Auto 0.1 X10*3/uL (0.0-0.4); Eosinophils Percent Auto 2.8 % (0-4); Hematocrit 30.2 % (37-47); Hemoglobin 10.2 g/dl (12.0-16.0); Imm Gran Abs Auto 0.02 X10*3/uL (0.00-0.03); Imm Gran Pct Auto 0.4 % (0.0-0.4); Lymphocytes Absolute Auto 1.8 X10*3/uL (1.2-4.9); Lymphocytes Percent Auto 34.6 % (20-40); Mean Corpuscular HGB Conc 33.8 g/dl (31.0-35.0); Mean Corpuscular Hemoglobin 33.1 pg (27.0-33.0); Mean Corpuscular Volume 98.1 fL (80-98); Mean Platelet Volume 9.1 fL (9.4-12.3); Monocytes Absolute Auto 0.6 X10*3/uL (0.1-1.2); Monocytes Percent Auto 11.2 % (2-11); Neutrophils Absolute Auto 2.6 X10*3/uL (2.0-8.3); Neutrophils Percent Auto 50.8 % (45-73); Platelet Count 202 X10*3/uL (160-400); Red Blood Count 3.08 X10*6/uL (4.20-5.50); Red Cell Distribution Width 12.9 % (11.0-16.0); White Blood Count 5.1 X10*3/uL (4.8-10.8)
[2020-08-20 05:58] LABS: Anion Gap 15 (12-20); Blood Urea Nitrogen 17 mg/dL (9-16); Calcium 8.1 mg/dL (8.4-10.2); Carbon Dioxide 18 mmol/L (22-29); Chloride 109 mmol/L (96-108); Creatinine Clr Calc Pharmacy 77.2; Estimated Glomerular Filt Rate > 60; Glucose Random 81 mg/dL (60-115); Potassium 4.3 mmol/L (3.3-5.1); Sodium 138 mmol/L (135-145)
[2020-08-20 07:27] LABS: Glucose, Whole Blood 85 mg/dL (60-115)
[2020-08-20] MEDS: 0.9 % Sodium Chloride Flush 3 ML SYRINGE IVFLUSH ×3 (08:51→20:29)
--- NOTE | 2020-08-20 09:20 | PC.NURSE ---
pt seen by dr. alejo, pt aware of plan of care. pt has small scabbed areas (less than dime size) on multi areas to gen body dr. alejo and pedro luis shaw assess/eval , it is not scabies per md and palynette. pt aware of plan of care for admission to hosp.
[2020-08-20] MEDS: Lipase/Prot/Amylase 24/76/120K 1 CAP CAPSULE.DR PO ×3 (10:11→20:26)
[2020-08-20] MEDS: Omeprazole 20 MG CAPSULE.DR PO (10:11)
[2020-08-20] MEDS: Sucralfate Oral Suspension 1 GM/10 ML ORAL.SUSP PO ×2 (10:11→20:26)
[2020-08-20] MEDS: Amoxicillin 500 MG CAPSULE PO ×2 (10:11→18:30)
--- NOTE | 2020-08-20 10:50 | PC.NURSE ---
pt states that she is not diabetic. aware.
--- NOTE | 2020-08-20 14:06 | PM.NEUROCN ---
History of Present Illness Data of Consult Service Date: 08/20/20 Primary Care Provider: Unknown Physician 70 years old woman with underlying history of cancer hemochromatosis and cerebral microvascular disease came to hospital with sudden onset of dizziness that was unsteadiness and not able to walk well. She also reported seeing double and triple but only if she would close her left eye. It was not there when she had both eyes open. There was no particular headache. She denied any cold or flu-like illness or any focal weakness or speech language difficulty. Review of Systems Review of Systems: As per HPI. PMFSH Past Medical History Medical History Annual physical exam Colon cancer Hemochromatosis Hyperglycemia IBS (irritable bowel syndrome) Palpitation Recurrent intestinal obstruction Tubular adenoma Vaginal cancer Family History Family History Father Dementia GSW (gunshot wound) CAD (coronary artery disease) Mother GSW (gunshot wound) Family/Other Diabetes mellitus Brother CAD (coronary artery disease) Sister No problems noted. Surgical History Surgical History H/O colectomy H/O colonoscopy History of esophagogastroduodenoscopy (EGD) Social History Social History Alcohol intake: current Alcohol intake frequency: 0-2 drinks per day Smoked in Last 30 Days: No Use of substances other than those prescribed or required for medical reasons: No Advance Directives: No Advance Directives Information Provided: No Sexual orientation: Straight/Heterosexual Gender identity: female Meds Allergies Allergy/AdvReac Type Severity Reaction Status Date / Time No Known Allergies Allergy Verified 08/03/20 14:05 [No Known Allergies*] Active Medications: Current Medications Generic Name Dose Route Start Last Admin Trade Name Freq PRN Reason Stop Dose Admin Acetaminophen 650 mg 08/20/20 01:43 Acetaminophen 325 Mg Tablet PO Q6H PRN Pain, Mild (Pain Scale 1-3) Amoxicillin 500 mg 08/20/20 10:00 08/20/20 10:11 Amoxicillin 500 Mg Capsule PO 500 mg Q8H FRANCISCO Administration Lipase/Protease/Amylase 1 cap 08/20/20 09:00 08/20/20 10:11 Lipase/Prot/Amylase 24/76/120k 1 Cap Capsule. PO 1 cap TID FRANCISCO Administration Sodium Chloride 1,000 mls @ 100 mls/hr 08/20/20 01:45 08/20/20 12:07 Ns IVCONT 100 mls/hr .Q10H FRANCISCO Administration Magnesium Hydroxide 30 ml 08/20/20 01:43 Milk Of Magnesia 30 Ml Oral.Susp PO DAILY PRN Constipation Meclizine HCl 25 mg 08/20/20 01:43 Meclizine Hcl 25 Mg Tablet PO Q8H PRN dizziness Omeprazole 20 mg 08/20/20 09:00 08/20/20 10:11 Omeprazole 20 Mg Capsule. PO 20 mg DAILY FRANCISCO Administration Sodium Chloride 3 ml 08/20/20 08:00 08/20/20 08:51 0.9 % Sodium Chloride Flush 3 Ml Syringe IVFLUSH 3 ml QSHIFT FRANCISCO Administration Sucralfate 1 gm 08/20/20 09:00 08/20/20 10:11 Sucralfate Oral Suspension 1 Gm/10 Ml Oral.Susp PO 1 gm BID FRANCISCO Administration Home Medications Medication Instructions Recorded Confirmed Last Taken Type amoxicillin 1 cap PO BID 08/20/20 08/20/20 Unknown History fluticasone propionate 1 spray INTRANASAL DAILY 08/20/20 08/20/20 Unknown History [id number] [Creon] 1 cap PO TID 08/20/20 08/20/20 Unknown History pantoprazole 1 tab PO DAILY 08/20/20 08/20/20 Unknown History permethrin 1 appl TOPICAL ONCE 08/20/20 08/20/20 Unknown History sucralfate 10 ml PO BID 08/20/20 08/20/20 Unknown History Physical Exam Vital Signs: Vital Signs: Last Vital Signs Temp 98.5 F 08/20/20 10:33 Pulse 61 08/20/20 12:06 Resp 18 08/20/20 12:06 BP 111/64 08/20/20 12:06 Pulse Ox 96 08/20/20 12:06 Body Mass Index 29.0 She was alert and awake with normal spontaneity of speech fluency comprehension and affect. Pupils were equal and reactive to light and extraocular muscles were intact. Visual pineda are full to threat. Face was symmetrical. Tongue was midline. There was no pronator drift. Hmsoyr-kn-[id number] testing was normal. With the left eye close she was looking at television and stating that she was seeing shadow of an image. Deep tendon reflexes were trace with flexor plantars. Results Labs CBC & Chem 7: 08/20/20 04:42 08/20/20 04:42 Labs: Short CBC 08/19/20 08/20/20 Range/Units 21:35 04:42 WBC 6.5 5.1 (4.8-10.8) X10*3/uL Hgb 11.2 L 10.2 L (12.0-16.0) g/dl Hct 33.4 L 30.2 L (37-47) % Plt Count 231 202 (160-400) X10*3/uL BMP 08/19/20 08/20/20 21:35 04:42 Sodium 137 138 Potassium 4.3 4.3 Chloride 106 109 H Carbon Dioxide 24 18 L BUN 18 H 17 H Creatinine 0.82 0.71 Calcium 8.7 8.1 L D Liver Function 08/19/20 Range/Units 21:35 Total Bilirubin 0.3 (0.0-1.0) mg/dL AST 62 H (5-31) U/L ALT 69 H (0-31) U/L Alkaline Phosphatase 110 (39-117) U/L Albumin 3.9 (3.5-5.0) g/dL Urine 08/19/20 Range/Units 21:53 Urine Color YELLOW Urine Appearance CLEAR Urine pH 6.0 (5.0-8.0) Ur Specific [place] <= 1.005 (1.005-1.025) Urine Protein NEG (NEG-TRACE) MG/DL Urine Glucose (UA) NEG (NEG) MG/DL Her noncontrast head CT did not reveal any acute abnormality. Assessment and Plan (1) Dizziness: Status: Acute 70 years old woman with underlying history of cancer hemochromatosis and cerebrum a microvascular disease presented with sudden onset of dizziness that was nonspecific and did not particularly include any brainstem symptoms. The type of visual abnormality she was describing was typically from an ophthalmological problem. She reported that she was diagnosed with some retinal bleeding type of problem recently. An MRI of brain sometime can help in these cases but that was not available this weekend. At this time my recommendation is to continue anti-platelet agent and control of other vascular risk factors. Any nonneurological cause of dizziness such as systemic infection can also be looked at but at this time she did not seem to be infected or had any metabolic abnormality. Physical therapy and occupational therapy consultation can be obtained and if she was able to walk safely she could be discharged. Procedures Date of Service Date of Service: 08/20/20
--- NOTE | 2020-08-20 14:42 | PC.NURSE ---
Pt up to bedside chair, c/o dizziness but transfers steadily. Pt linen and gown changed, set up for bed bath and oral care. Pt denies further complaints or needs at this time.
[2020-08-20 16:32] LABS: Glucose, Whole Blood 85 mg/dL (60-115)
--- NOTE | 2020-08-20 18:43 | PC.NURSE ---
Patient reports 10/10 left upper quadrant pain radiating to left flank. Hospitalist notified, to order CT abd/pelv.
[2020-08-20] MEDS: HYDROmorphone HCl 0.5 MG/0.5 ML SYRINGE IVPUSH (20:26)
[2020-08-20 20:30] LABS: Glucose, Whole Blood 88 mg/dL (60-115)
[2020-08-20] MEDS: Meclizine HCl 25 MG TABLET PO (20:57)
[2020-08-21] VITALS (7 sets, daily range): BP systolic 118–133; BP diastolic 63–79; PULSE 72–81; RESP 18–20; TEMP 36.4–36.8; O2SAT 94–98
[2020-08-21] MEDS: Amoxicillin 500 MG CAPSULE PO ×3 (02:07→18:06)
[2020-08-21] MEDS: Omeprazole 20 MG CAPSULE.DR PO (08:45)
[2020-08-21] MEDS: Sucralfate Oral Suspension 1 GM/10 ML ORAL.SUSP PO ×2 (08:45→20:59)
[2020-08-21] MEDS: 0.9 % Sodium Chloride Flush 3 ML SYRINGE IVFLUSH (08:46)
[2020-08-21] MEDS: Lipase/Prot/Amylase 24/76/120K 1 CAP CAPSULE.DR PO ×3 (08:46→20:59)
[2020-08-21] MEDS: 0.9 % Sodium Chloride 1,000 ML 100 ML IVCONT ×2 (08:50→18:05)
--- NOTE | 2020-08-21 11:28 | HO.PM.IMPN ---
Subjective Subjective Date of Service: 08/21/20 Interval History: dizzyness improving, but still present, had luq abd pain yesterday, now resolved, cT was unremarkable Cardiovascular Cardiovascular: Reports no additional cardiovascular complaints Respiratory Respiratory: Reports no additional respiratory complaints Physical Exam Vital Signs: Vital Signs: Last Vital Signs Temp 97.9 F 08/21/20 07:13 Pulse 80 08/21/20 07:13 Resp 20 08/21/20 07:13 BP 130/69 08/21/20 07:13 Pulse Ox 94 08/21/20 07:13 Body Mass Index 29.0 General: AO X 3, no acute distress Resp: CTA bilateral CVS: S1,S2,RRR GI: soft, non tender, non distended Neuro: motor grossly intact Psych: appropriate affect Objective Data Current Medications Generic Name Dose Route Start Last Admin Trade Name Freq PRN Reason Stop Dose Admin Acetaminophen 650 mg 08/20/20 01:43 Acetaminophen 325 Mg Tablet PO Q6H PRN Pain, Mild (Pain Scale 1-3) Amoxicillin 500 mg 08/20/20 10:00 08/21/20 08:45 Amoxicillin 500 Mg Capsule PO 500 mg Q8H FRANCISCO Administration Lipase/Protease/Amylase 1 cap 08/20/20 09:00 08/21/20 08:46 Lipase/Prot/Amylase 24/76/120k 1 Cap Capsule. PO 1 cap TID FRANCISCO Administration Hydromorphone HCl 0.5 mg 08/20/20 18:42 08/20/20 20:26 Hydromorphone Hcl 0.5 Mg/0.5 Ml Syringe IVPUSH 0.5 mg Q4H PRN Administration Pain, Moderate (Pain Scale 4-6 Sodium Chloride 1,000 mls @ 100 mls/hr 08/20/20 01:45 08/21/20 08:50 Ns IVCONT 100 mls/hr .Q10H FRANCISCO Administration Magnesium Hydroxide 30 ml 08/20/20 01:43 Milk Of Magnesia 30 Ml Oral.Susp PO DAILY PRN Constipation Meclizine HCl 25 mg 08/20/20 01:43 08/20/20 20:57 Meclizine Hcl 25 Mg Tablet PO 25 mg Q8H PRN Administration dizziness Omeprazole 20 mg 08/20/20 09:00 08/21/20 08:45 Omeprazole 20 Mg Capsule. PO 20 mg DAILY FRANCISCO Administration Sodium Chloride 3 ml 08/20/20 08:00 08/21/20 08:46 0.9 % Sodium Chloride Flush 3 Ml Syringe IVFLUSH 3 ml QSHIFT FRANCISCO Administration Sucralfate 1 gm 08/20/20 09:00 08/21/20 08:45 Sucralfate Oral Suspension 1 Gm/10 Ml Oral.Susp PO 1 gm BID FRANCISCO Administration Labs CBC & Chem 7: 08/20/20 04:42 08/20/20 04:42 Assessment and Plan (1) Dizziness: Status: Acute Assessment and Plan: 70F presented with dizziness dizziness some concern for central cause if possible will try for inpatient MRI, otherwise will arrange outpatient continue aspirin hemochromatosis stable dental infection amoxil
[2020-08-21] MEDS: Acetaminophen 325 MG TABLET 650 MG PO (12:43)
--- NOTE | 2020-08-21 12:45 | MHC.CM.PN ---
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 PT REPORTS BEING FULLY INDEPENDENT WITH HER CARE AND MOBILITY AND DENIES USING DME OR SERVICES. PT HAS A HCP ON FILE AND REPORTS HER PCP IS CLIFF VELA. CURRENT DC PLAN IS HOME WITH NO SERVICES PT WILL SELF ARRANGE TRANSPORT
[2020-08-21 16:19] LABS: Glucose, Whole Blood 82 mg/dL (60-115)
[2020-08-21 20:17] LABS: Glucose, Whole Blood 130 mg/dL (60-115)
[2020-08-21] MEDS: HYDROmorphone HCl 0.5 MG/0.5 ML SYRINGE IVPUSH (20:59)
[2020-08-22] MEDS: HYDROmorphone HCl 0.5 MG/0.5 ML SYRINGE IVPUSH (01:19)
[2020-08-22] MEDS: 0.9 % Sodium Chloride 1,000 ML 100 ML IVCONT (01:20)
[2020-08-22] MEDS: Amoxicillin 500 MG CAPSULE PO ×2 (01:20→09:38)
[2020-08-22 04:00] VITALS: BP 124/61; PULSE 86; RESP 18; TEMP 36.9; O2SAT 97
[2020-08-22] MEDS: Acetaminophen 325 MG TABLET 650 MG PO (04:08)
[2020-08-22 07:08] VITALS: BP 123/58; PULSE 82; RESP 20; TEMP 35.5; O2SAT 97
[2020-08-22] MEDS: Aspirin Enteric Coated 81 MG TABLET.DR PO (09:38)
[2020-08-22] MEDS: Omeprazole 20 MG CAPSULE.DR PO (09:38)
[2020-08-22] MEDS: Sucralfate Oral Suspension 1 GM/10 ML ORAL.SUSP PO (09:38)
--- NOTE | 2020-08-22 10:11 | P.DS_ITS ---
DS: Providers Provider Date of Service: 08/22/20 Date of admission: 08/20/20 01:43 Primary care physician: Unknown Physician Consults: 08/20/20 01:43 Consult to Neurology Routine Consulting Provider: [facility] Reason for consultation: dizziness DS: Diagnosis Discharge Diagnosis (1) Dizziness: Status: Acute DS: Medications Discharge Medications Home Medications: Home Medications Medication Instructions Recorded Confirmed Creon 1 cap PO TID 08/20/20 08/20/20 amoxicillin 1 cap PO BID 08/20/20 08/20/20 fluticasone propionate 1 spray INTRANASAL DAILY 08/20/20 08/20/20 pantoprazole 1 tab PO DAILY 08/20/20 08/20/20 permethrin 1 appl TOPICAL ONCE 08/20/20 08/20/20 sucralfate 10 ml PO BID 08/20/20 08/20/20 Previous Rx's Medication Instructions Recorded aspirin 81 mg PO DAILY #0 tab 08/22/20 DS: Summary Hospital Course Hospital Course: Patient was admitted for dizziness. There was some concern that there may be central cause. She was evaluated by Neurology recommended starting antiplatelet and obtaining non emergent MRI. Unfortunately, MRI machine was down and was not felt urgent after require transfer to another facility. Patient should get MRI as outpatient and follow-up with Neurology. Dizziness is improving and she will be discharged home. Time Spent with Patient Time attestation: Total time spent providing and/or coordinating discharge services: Discharge coordination time: Greater than 30 minutes Quality: Stroke Does the patient have a stroke diagnosis?: No Physical Exam Vital Signs: Vital Signs: Last Vital Signs Temp 96 F L 08/22/20 07:08 Pulse 82 08/22/20 07:08 Resp 20 08/22/20 07:08 BP 123/58 L 08/22/20 07:08 Pulse Ox 97 08/22/20 07:08 Body Mass Index 29.0 General: AO X 3, no acute distress Resp: CTA bilateral CVS: S1,S2,RRR GI: soft, non tender, non distended Neuro: motor grossly intact Psych: appropriate affect DS: Data Data Completed and Pending Labs on day of discharge: Laboratory Results - last 24 hr 08/21/20 08/21/20 16:04 20:11 POC Glucose 82 130 H Discharge Plan Discharge Patient Disposition: Home, Self-Care Discharge Diagnosis: dizzy Referrals: Imelda Reyes MD [Physician] - 1 Week Physician,Unknown [Primary Care Provider] - 1 Week Discharge Medications: New aspirin 81 mg Tablet,Delayed Release (Dr/Ec) 81 mg PO DAILY Qty: 0 RF: 0 Continued amoxicillin 500 mg capsule 1 cap PO BID RF: 0 sucralfate 100 mg/mL suspension 10 ml PO BID RF: 0 permethrin 5 % cream 1 appl topical ONCE RF: 0 pantoprazole 40 mg tablet,delayed release (DR/EC) 1 tab PO DAILY RF: 0 fluticasone propionate 50 mcg/actuation spray,suspension 1 spray intranasal DAILY RF: 0 Creon 24,000-76,000 -120,000 unit capsule,delayed release(DR/EC) 1 cap PO TID RF: 0 Discharge Orders: Discharge Order (Routine); Ordered 08/22/20 Ordered By: Lalito Rico Diet: advance to usual diet Activity on Discharge: As tolerated Stand Alone Forms: Patient Portal Discharge page Care Plan Goals: recovery Health Concerns: dizzy Plan of Treatment: follow up neuro for mri, asa Assessment: see above
[2020-08-22] MEDS: Lipase/Prot/Amylase 24/76/120K 1 CAP CAPSULE.DR PO (10:12)
--- NOTE | 2020-08-22 10:21 | MHC.CM.PN ---
pt dcd today has own transportaion eri chalino sklillled servceis are indicated
[2020-08-22 11:10] VITALS: BP 126/74; PULSE 82; RESP 20; TEMP 36.1; O2SAT 97
== END 2020-08-22 13:00 | disposition home or self-care (01) ==
LOC: HO.ED 21:32 → HO.EDOVER 08-20 07:13 → HO.IMC 08-20 15:32 → HO.EDOVER 08-21 02:54
PROVIDERS: Admitting Provider Hospitalist; Emergency Provider Emergency Medicine Emergency Medical Services; PCP Internal Medicine; Visit Provider Internal Medicine
DX: R42 Dizziness and giddiness (principal); R11.2 Nausea with vomiting, unspecified; R10.9 Unspecified abdominal pain; E83.119 Hemochromatosis, unspecified; I67.9 Cerebrovascular disease, unspecified; R94.31 Abnormal electrocardiogram [ECG] [EKG]; D36.9 Benign neoplasm, unspecified site; Z20.822 Contact with and (suspected) exposure to COVID-19; Z90.49 Acquired absence of other specified parts of digestive tract; Z85.44 Personal history of malignant neoplasm of other female genital organs; Z85.038 Personal history of other malignant neoplasm of large intestine; Z79.899 Other long term (current) drug therapy
CPT/HCPCS: 36415; 70450; 74176; 80048; 80053; 81003; 82947; 84484; 85025; 87635; 93005; 96361; 96374; 96375; 97161; 99219; 99285; J1170; J2060; J2405

== ENCOUNTER 2020-09-15 15:10 | Outpatient (REF) | payer MEDICARE, MEDICAID, SELFPAY ==
[2020-09-15 16:26] LABS: Glucose Urine UA NEG (NEG); Leukocyte Esterase Urine NEG (NEG); Nitrite Urine NEG (NEG); Specific Gravity - Urine >= 1.030 (1.005-1.025); Urine Blood NEG (NEG); Urine Ketones NEG (NEG); Urine Protein NEG (NEG-TRACE)
[2020-09-15 16:27] LABS: Appearance Urine CLEAR; Color Urine YELLOW
== END 2020-09-15 15:11 | disposition home or self-care (01) ==
LOC: HO.HMGCLDS 15:10
PROVIDERS: PCP Internal Medicine; Visit Provider Internal Medicine
DX: R30.0 Dysuria (principal)
CPT/HCPCS: 81003

== ENCOUNTER → 2020-10-07 14:45 | Outpatient (BNVA) | payer MEDICARE, MEDICAID, SELFPAY | PROVIDERS: PCP Internal Medicine; Visit Provider Nurse Practitioner | DX: E83.110 Hereditary hemochromatosis (principal); R11.2 Nausea with vomiting, unspecified; R63.4 Abnormal weight loss; R10.33 Periumbilical pain; R76.8 Other specified abnormal immunological findings in serum; R74.02 Elevation of levels of lactic acid dehydrogenase [LDH]; R42 Dizziness and giddiness; K21.00 Gastro-esophageal reflux disease with esophagitis, without bleeding; K58.9 Irritable bowel syndrome, unspecified; K29.70 Gastritis, unspecified, without bleeding; M25.50 Pain in unspecified joint; Z87.19 Personal history of other diseases of the digestive system; Z85.038 Personal history of other malignant neoplasm of large intestine | CPT/HCPCS: Q3014 ==

== ENCOUNTER 2020-10-18 15:37 | Outpatient (REF) | payer MEDICARE, MEDICAID, SELFPAY ==
[2020-10-18 16:26] LABS: C Reactive Protein 0.43 mg/dL (< or = 0.50)
[2020-10-18 16:28] LABS: Rheumatoid Factor 23.7 IU/mL (<15.0)
[2020-10-18 17:10] LABS: Erythrocyte Sedimentation Rate 78 MM/HR (0-20)
[2020-10-20 23:06] LABS: Anti Nuclear Antibody Screen POSITIVE (NEGATIVE)
== END 2020-10-18 15:38 | disposition home or self-care (01) ==
LOC: HO.LAB 15:37
PROVIDERS: Absent Provider Internal Medicine; PCP Internal Medicine; Visit Provider Nurse Practitioner
DX: R76.8 Other specified abnormal immunological findings in serum (principal); R74.02 Elevation of levels of lactic acid dehydrogenase [LDH]; M25.50 Pain in unspecified joint
CPT/HCPCS: 36415; 85652; 86038; 86039; 86140; 86431

== ENCOUNTER 2020-10-25 15:37 | Outpatient (REF) | payer MEDICARE, MEDICAID, SELFPAY ==
--- NOTE | ~2020-10-25 | MM_ITS ---
EXAMINATION: MM SCREENING DIGITAL BREAST TOMOSYNTHESIS, BILATERAL CLINICAL INFORMATION: Screening. Asymptomatic. The lifetime risk of breast cancer based on the Tyrer-Cuzick Model is 3%. COMPARISON: Outside mammography 05/03/2017, 09/22/2014 ([facility]). TECHNIQUE: Digital breast tomosynthesis is performed in both the craniocaudal and mediolateral oblique views along with computer-aided detection (CAD). Synthesized 2D images are generated from the tomosynthesis. FINDINGS: There are scattered areas of fibroglandular density (ACR BI-RADS breast composition Category b). There are no significant masses, abnormal calcifications, or other abnormalities. Parenchymal pattern is similar to prior studies. No developing density. There are bulky benign calcifications again noted posterior 12:00 right breast. The axilla and skin contours are unremarkable. MM/MM tomosynthesis screening BI IMPRESSION: No mammographic evidence of malignancy. ASSESSMENT: BI-RADS 2: Benign RECOMMENDATION: Routine annual mammography screening. This patient's information was entered into a reminder system with a target due date for their next mammogram.
== END 2020-10-25 15:38 | disposition home or self-care (01) ==
LOC: HO.MAMMO 15:37
PROVIDERS: PCP Internal Medicine; Visit Provider Obstetrics & Gynecology
DX: Z12.31 Encounter for screening mammogram for malignant neoplasm of breast (principal)
CPT/HCPCS: 77063; 77067

== ENCOUNTER 2020-10-26 14:34 | Outpatient (REF) | payer MEDICARE, MEDICAID, SELFPAY | END 2020-10-26 14:35 | disposition home or self-care (01) | LOC: HO.LAB 14:34 | PROVIDERS: Visit Provider Obstetrics & Gynecology | DX: R87.615 Unsatisfactory cytologic smear of cervix (principal); R87.811 Vaginal high risk human papillomavirus (HPV) DNA test positive; N95.0 Postmenopausal bleeding; Z85.44 Personal history of malignant neoplasm of other female genital organs | CPT/HCPCS: 57454; 88142; 88300; 88305; 99212 ==

== ENCOUNTER → 2020-11-09 13:36 | Outpatient (BNVA) | payer MEDICARE, MEDICAID, SELFPAY | PROVIDERS: Visit Provider Obstetrics & Gynecology | DX: Z13.89 Encounter for screening for other disorder (principal) | CPT/HCPCS: Q3014 ==

== ENCOUNTER → 2021-01-03 14:06 | Outpatient (BNVA) | payer MEDICARE, MEDICAID, SELFPAY | PROVIDERS: Referring Provider Internal Medicine; Visit Provider Nurse Practitioner | DX: K90.89 Other intestinal malabsorption (principal); K21.00 Gastro-esophageal reflux disease with esophagitis, without bleeding | CPT/HCPCS: 99212 ==

== ENCOUNTER 2021-02-07 14:36 | Outpatient (REF) | payer MEDICARE, MEDICAID, SELFPAY ==
--- NOTE | ~2021-02-07 | XR_ITS ---
EXAMINATION: XR CHEST CLINICAL INFORMATION: Bronchitis and cough COMPARISON: Previous chest x-rays most recent June [address] October 2017 TECHNIQUE: 2 views of the chest were obtained. FINDINGS: The cardiac and mediastinal contours are stable. There are increased interstitial markings suggestive of interstitial lung disease. There is increased attenuation seen in the right upper lobe questionable for acute alveolitis related to interstitial lung disease or possible small pneumonia. There is question of a 5 mm right nodule extending over the right posterior eighth rib. The lungs are otherwise clear. There is no pleural effusion or pneumothorax. There are degenerative changes of the spine. XR/XR chest 2V IMPRESSION: Interstitial lung disease. New increased attenuation in the right upper lobe questionable for acute alveolitis related interstitial lung disease versus pneumonia. Question right base pulmonary nodule. Chest x-ray or chest CT follow-up recommended.
== END 2021-02-07 14:37 | disposition home or self-care (01) ==
LOC: HO.XRAY 14:36
PROVIDERS: PCP Internal Medicine; Visit Provider Internal Medicine
DX: R05.9 Cough, unspecified (principal); J47.9 Bronchiectasis, uncomplicated
CPT/HCPCS: 71046; 99202

== ENCOUNTER → 2021-02-13 14:47 | Outpatient (BNVA) | payer MEDICARE, MEDICAID, SELFPAY | PROVIDERS: PCP Internal Medicine; Referring Provider Internal Medicine; Visit Provider Nurse Practitioner | DX: K90.89 Other intestinal malabsorption (principal); K58.9 Irritable bowel syndrome, unspecified; K21.00 Gastro-esophageal reflux disease with esophagitis, without bleeding; R63.4 Abnormal weight loss; R76.8 Other specified abnormal immunological findings in serum | CPT/HCPCS: 99212 ==

== ENCOUNTER 2021-02-15 17:17 | Outpatient (REF) | payer MEDICARE, MEDICAID, SELFPAY ==
[2021-02-15 18:34] LABS: Hemoglobin 11.3 g/dl (12.0-16.0); Mean Corpuscular HGB Conc 33.2 g/dl (31.0-35.0); Mean Corpuscular Hemoglobin 32.5 pg (27.0-33.0); Mean Corpuscular Volume 97.7 fL (80.0-98.0); Mean Platelet Volume 9.1 fL (9.4-12.3); Platelet Count 282 X10*3/uL (160-400); Red Blood Count 3.48 X10*6/uL (4.20-5.50); Red Cell Distribution Width 13.2 % (11.0-16.0); White Blood Count 6.2 X10*3/uL (4.8-10.8)
[2021-02-15 19:18] LABS: Vitamin B12 383 pg/mL (200-900)
[2021-02-19 15:05] LABS: Vitamin D 25-OH, D2 6 ng/mL; Vitamin D 25-OH, D3 29 ng/mL; Vitamin D 25-OH, Total 35 ng/mL (30-100)
== END 2021-02-15 17:18 | disposition home or self-care (01) ==
LOC: HO.LAB 17:17
PROVIDERS: Absent Provider Internal Medicine; PCP Internal Medicine; Visit Provider Nurse Practitioner
DX: K90.89 Other intestinal malabsorption (principal); R53.83 Other fatigue; R05.9 Cough, unspecified
CPT/HCPCS: 36415; 82306; 82607; 85027

== ENCOUNTER 2021-03-27 16:42 | Outpatient (REF) | payer MEDICARE, MEDICAID, SELFPAY ==
[2021-03-27 17:45] LABS: Alanine Aminotransferase 107 U/L (0-31); Albumin Level 3.7 g/dL (3.5-5.0); Alkaline Phosphatase 122 U/L (39-117); Anion Gap 11 (12-20); Aspartate Amino Transferase 113 U/L (5-31); Bilirubin Total 0.6 mg/dL (0.0-1.0); Blood Urea Nitrogen 18 mg/dL (9-16); Calcium 9.2 mg/dL (8.4-10.2); Carbon Dioxide 24 mmol/L (22-29); Chloride 106 mmol/L (96-108); Estimated Glomerular Filt Rate > 60; Glucose Random 96 mg/dL (60-115); Potassium 4.4 mmol/L (3.3-5.1); Sodium 137 mmol/L (135-145)
== END 2021-03-27 16:43 | disposition home or self-care (01) ==
LOC: HO.LAB 16:42
PROVIDERS: Absent Provider Internal Medicine; PCP Internal Medicine; Visit Provider Nurse Practitioner
DX: K90.89 Other intestinal malabsorption (principal); R53.83 Other fatigue
CPT/HCPCS: 36415; 80053

== ENCOUNTER → 2021-03-28 15:52 | Outpatient (BNVA) | payer MEDICARE, MEDICAID, SELFPAY | PROVIDERS: PCP Internal Medicine; Referring Provider Internal Medicine; Visit Provider Nurse Practitioner | DX: K21.00 Gastro-esophageal reflux disease with esophagitis, without bleeding (principal); K90.89 Other intestinal malabsorption; R79.89 Other specified abnormal findings of blood chemistry; R63.4 Abnormal weight loss; R53.83 Other fatigue; L71.9 Rosacea, unspecified; Z87.19 Personal history of other diseases of the digestive system | CPT/HCPCS: 99212 ==

== ENCOUNTER 2021-03-30 14:02 | Outpatient (REF) | payer MEDICARE, MEDICAID, SELFPAY ==
--- NOTE | 2021-03-30 16:58 | PFT_ITS ---
FLOWS: FEV1 98% of predicted at 1.97 L. FVC 86% of predicted at 2.30 L. FEV1 to FVC ratio of 0.86. Positive bronchodilator response. LUNG VOLUMES: Total lung capacity 73% of predicted at 3.50 L. Residual volume 57% of predicted at 1.24 L. Slow vital capacity 86% of predicted at 2.26 L. Expiratory reserve volume 41% of predicted at 0.23 L. Diffusion capacity is moderately decreased, diffusion capacity corrects to normal after adjustment for alveolar ventilation. IMPRESSION: Mild restrictive ventilatory defect with positive bronchodilator response. Lg Garza MD AP/MODL / [id number]
== END 2021-03-30 14:03 | disposition home or self-care (01) ==
LOC: HO.RESP 14:02
PROVIDERS: PCP Internal Medicine; Visit Provider Internal Medicine
DX: R06.00 Dyspnea, unspecified (principal); R05.9 Cough, unspecified; J47.9 Bronchiectasis, uncomplicated; J45.909 Unspecified asthma, uncomplicated; J84.9 Interstitial pulmonary disease, unspecified
CPT/HCPCS: 94060; 94727; 94729; 99212

== ENCOUNTER 2021-04-14 14:08 | Outpatient (REF) | payer MEDICARE, MEDICAID, SELFPAY ==
--- NOTE | ~2021-04-14 | CT_ITS ---
EXAMINATION: CT CHEST WITHOUT CONTRAST CLINICAL INFORMATION: Interstitial pulmonary disease COMPARISON: Chest x-ray 02/07/2021, CT abdomen pelvis 08/20/[address] 11/05/2017 TECHNIQUE: Multidetector volumetric CT imaging of the chest was done. Axial MIP volume rendering provided. Sagittal and coronal reformatted images were obtained. This CT examination was performed using dose optimization techniques as appropriate, variously including the following: *Automated exposure control *Adjustment of mA and/or kV according to patient size (this includes techniques or standardized protocols for targeted exams where dose is matched to indication/reason for exam; i.e. extremities or head) *Use of iterative reconstruction technique DLP: 154 mGy-cm FINDINGS: The heart is normal in size. Coronary artery calcifications are present. Trace pericardial fluid without pericardial effusion. Normal caliber thoracic aorta. A few scattered prominent/mildly enlarged mediastinal lymph nodes are visualized, some of which are mildly increased in size from 2018 imaging. For example there is a 1.3 cm right paratracheal lymph node which previously measured 8 mm (image 19/57, series 7). Similar coarse calcification within the right breast. No axillary lymphadenopathy. Central airways are patent. Lungs are well aerated. Diffuse subpleural reticular changes are noted bilaterally which are overall mildly more prominent than 2018 cross-sectional imaging. Some minimal cystic changes are again noted within the posterior right lung base. No significant honeycombing demonstrated. No significant bronchiectasis. No suspicious pulmonary masses identified. There is no lobar consolidation present. No pleural effusion or pneumothorax. Visualized portions of the upper abdomen demonstrate surgical changes consistent with prior cholecystectomy. Moderate diffuse degenerative changes of the spine. CT/CT chest wo con IMPRESSION: Mild interval progression in diffuse interstitial lung disease. Mild interval increase in prominence of mediastinal lymph nodes are likely reactive in nature. Fleischner guidelines were followed.
[2021-04-14 15:34] LABS: Alanine Aminotransferase 75 U/L (0-31); Albumin Level 3.7 g/dL (3.5-5.0); Alkaline Phosphatase 132 U/L (39-117); Anion Gap 12 (12-20); Aspartate Amino Transferase 68 U/L (5-31); Bilirubin Total 0.5 mg/dL (0.0-1.0); Blood Urea Nitrogen 25 mg/dL (9-16); Calcium 9.2 mg/dL (8.4-10.2); Carbon Dioxide 24 mmol/L (22-29); Chloride 107 mmol/L (96-108); Estimated Glomerular Filt Rate > 60; Glucose Random 106 mg/dL (60-115); Potassium 5.2 mmol/L (3.3-5.1); Sodium 138 mmol/L (135-145)
[2021-04-14 15:54] LABS: Ferritin 173 ng/mL (10-250)
[2021-04-14 16:07] LABS: Folate 15.9 ng/mL (> or = 4.0); Vitamin B12 428 pg/mL (200-900)
== END 2021-04-14 14:09 | disposition home or self-care (01) ==
LOC: HO.CT 14:08
PROVIDERS: Absent Provider Nurse Practitioner; PCP Internal Medicine; Referring Provider Internal Medicine; Visit Provider Internal Medicine
DX: J45.909 Unspecified asthma, uncomplicated (principal); J47.9 Bronchiectasis, uncomplicated; J84.9 Interstitial pulmonary disease, unspecified; R53.83 Other fatigue; R63.4 Abnormal weight loss; R05.9 Cough, unspecified
CPT/HCPCS: 36415; 71250; 80053; 82607; 82728; 82746

== ENCOUNTER 2021-05-24 14:02 | Outpatient (REF) | payer MEDICARE, MEDICAID, SELFPAY ==
--- NOTE | ~2021-05-24 | MM_ITS ---
EXAMINATION: BONE DENSITOMETRY CLINICAL INDICATION: Asymptomatic menopausal state. COMPARISON: Baseline BD dated 04/24/2019. TECHNIQUE: Using a [employer] DXA System (software version: 13.1) manufactured by [employer], dual-energy x-ray absorptiometry was performed of the lumbar spine and left hip. The images are of good technical quality. Summary results are attached. FINDINGS: AP SPINE L1-L4: Current: BMD 0.903 g/cm2, Z-score -0.8, T-score -2.3, osteopenia, 0.1% increase from baseline (<5% change is not significant). Baseline: BMD 0.902 g/cm2. LEFT FEMUR, NECK: Current: BMD 1.037 g/cm2, Z-score 1.7, T-score 0.0, normal. Baseline: BMD 0.874 g/cm2. LEFT FEMUR, TOTAL: Current: BMD 0.970 g/cm2, Z-score 1.1, T-score -0.3, normal, 8.7% increase from baseline (<5% change is not significant). Baseline: BMD 0.892 g/cm2. IDENTIFIED RISK FACTORS: Osteoporosis, recurrent falls. Early menopause, secondary osteoporosis, history of fracture (adult). HISTORY OF FRACTURE: Clavicle. MEDICATIONS: Calcium supplements or multivitamin, vitamin D. MM/XR DEXA axial skeleton IMPRESSION: 1. DIAGNOSIS: Osteopenia based on the lowest T-score value of -2.3 in the lumbar spine applying World Health Organization criteria. 2. 10-YEAR FRACTURE RISK PREDICTION, FRAX: Major osteoporotic fracture (clinical spine, forearm, hip or shoulder) 11.3%. Hip fracture 0.7%. 3. Treatment Recommendations: NOF guidelines recommend consideration for treatment in postmenopausal women and men age 50 and older presenting with the following: -A hip or vertebral (clinical or morphometric) fracture. -T-score less than or equal to -2.5 at the femoral neck or spine after appropriate evaluation to exclude secondary causes. -Low bone mass at the hip or spine and a 10-year fracture probability by FRAX of greater than or equal to 3% for hip fracture or greater than or equal to 20% for major osteoporotic fracture based on the [place] adapted WHO algorithm. 4. Other Recommendations: All treatment decisions require clinical judgment and consideration of individual patient factors, including patient preferences, comorbidities, previous drug use, risk factors not captured in the FRAX model (e.g. frailty, falls, vitamin D deficiency, increased bone turnover, interval significant decline in bone density) and possible under or overestimation of fracture risk by FRAX. Additional medical evaluation for secondary cause of low bone mineral density may be appropriate. FUTURE SCAN RECOMMENDATION: People with diagnosed cases of osteoporosis or at high risk for fracture should have regular bone mineral density tests. For patients eligible for Medicare, routine testing is allowed once every 2 years. The testing frequency can be increased to one year for patients who have rapidly progressing disease, those who are receiving or discontinuing medical therapy to restore bone mass, or have additional risk factors.
== END 2021-05-24 14:03 | disposition home or self-care (01) ==
LOC: HO.MAMMO 14:02
PROVIDERS: Visit Provider Obstetrics & Gynecology
DX: Z13.820 Encounter for screening for osteoporosis (principal); M85.80 Other specified disorders of bone density and structure, unspecified site; Z78.0 Asymptomatic menopausal state; Z79.899 Other long term (current) drug therapy
CPT/HCPCS: 77080

== ENCOUNTER → 2021-06-07 13:39 | Outpatient (BNVA) | payer MEDICARE, MEDICAID, SELFPAY | PROVIDERS: Visit Provider Obstetrics & Gynecology | DX: Z13.89 Encounter for screening for other disorder (principal) | CPT/HCPCS: Q3014 ==

== ENCOUNTER → 2021-06-12 12:10 | Outpatient (BNVA) | payer MEDICARE, MEDICAID, SELFPAY | PROVIDERS: Referring Provider Internal Medicine; Visit Provider Nurse Practitioner | DX: K21.00 Gastro-esophageal reflux disease with esophagitis, without bleeding (principal); K58.0 Irritable bowel syndrome with diarrhea; R53.83 Other fatigue; R11.2 Nausea with vomiting, unspecified; L71.9 Rosacea, unspecified; E55.9 Vitamin D deficiency, unspecified; R76.8 Other specified abnormal immunological findings in serum; Z85.038 Personal history of other malignant neoplasm of large intestine; Z87.19 Personal history of other diseases of the digestive system | CPT/HCPCS: 99212 ==

== ENCOUNTER 2021-06-22 14:00 | Outpatient (REF) | payer MEDICARE, MEDICAID, SELFPAY ==
--- NOTE | ~2021-06-22 | CT_ITS ---
EXAMINATION: CT ABDOMEN AND PELVIS WITH CONTRAST CLINICAL INFORMATION: 71-year-old female with abnormal weight loss. COMPARISON: CT abdomen and pelvis from 08/20/2020 TECHNIQUE: Multidetector volumetric images were obtained from the superior aspect of the liver through the pubic symphysis following administration 85 mL of Omnipaque 350 intravenous contrast as well as oral contrast. Sagittal and coronal reformatted images were obtained on the technologist's workstation. This CT examination was performed using dose optimization techniques as appropriate, variously including the following: *Automated exposure control *Adjustment of mA and/or kV according to patient size (this includes techniques or standardized protocols for targeted exams where dose is matched to indication/reason for exam; i.e. extremities or head) *Use of iterative reconstruction technique DLP: 361 mGy-cm FINDINGS: LUNG BASES: Chronic subpleural reticular opacities of fibrosis with regions of mild traction bronchiectasis and/or subpleural honeycombing. The interstitial disease is unchanged compared to 08/20/2020. No basilar consolidation or pleural effusion. LIVER: The liver has slightly nodular surface contour, suspicious for cirrhosis, as noted on 08/20/2020. Small, 0.5 cm hypodense focus in the left hepatic lobe and 0.3 cm hypodense focus in the posterior hepatic segment are very likely cysts. No suspicious liver lesion. GALLBLADDER AND BILIARY TREE: Gallbladder is surgically absent. Common bile duct is chronically dilated; it measures up to approximately 1.3 cm maximum AP diameter on the axial images. There are no radiopaque calculi within the chronically dilated duct. PANCREAS: Normal. No edema, pancreatic ductal dilatation or mass. SPLEEN: Normal. ADRENAL GLANDS: Normal. KIDNEYS AND URETERS: The kidneys have normal size and cortical thickness. A few simple cysts of each kidney. No renal imaging follow-up is recommended for simple cysts. No perinephric fluid collection. No urolithiasis or hydroureteronephrosis. BLADDER: Normal. No calculi or wall thickening. BOWEL AND PERITONEUM: Stomach is underdistended. Small bowel is unremarkable. Moderate amount fecal material is present in the nondilated colon. There are surgical clips in the pelvis adjacent to the distal sigmoid and proximal rectum. ABDOMINAL WALL: Unremarkable. VASCULATURE: Unremarkable. LYMPH NODES: A prominent lymph node of the gastrohepatic ligament of 1.2 cm short axis dimension is stable compared to prior exams, such as 03/13/2018 and 08/20/2020 (image 16, series 3). No pathologic sized retroperitoneal lymph nodes. No iliac or inguinal lymphadenopathy. PELVIC VISCERA: Uterus is retroverted. No evidence of uterine or adnexal mass. Small amount of simple appearing free fluid is present in the posterior cul-de-sac. SKELETAL: Chronic multilevel discovertebral degenerative change of the visualized thoracic and lumbar spine. There is 0.3 cm of degenerative anterolisthesis at L3-L4. Mild osteoarthritis of the hips. No suspicious bone lesions. CT/CT abdomen pelvis w con IMPRESSION: * Chronic interstitial lung disease. * Chronic stable dilatation of the common duct, status post cholecystectomy. * Liver chronically has slightly nodular contour, suspicious for mild cirrhosis. * A mildly enlarged lymph node of the gastrohepatic ligament is unchanged in size compared to prior exams, including 03/13/2018 and 08/20/2020. There are no suspicious enlarging lymph nodes in the abdomen or pelvis.
[2021-06-22 14:41] LABS: MANUAL DIFF FLAG NO
[2021-06-22 14:58] LABS: Basophils Percent Auto 0.3 % (0-2); Eosinophils Absolute Auto 0.2 X10*3/uL (0.0-0.4); Eosinophils Percent Auto 1.9 % (0-4); Hematocrit 35.8 % (37.0-47.0); Hemoglobin 11.8 g/dl (12.0-16.0); Imm Gran Abs Auto 0.04 X10*3/uL (0.00-0.03); Imm Gran Pct Auto 0.4 % (0.0-0.4); Lymphocytes Absolute Auto 1.8 X10*3/uL (1.2-4.9); Lymphocytes Percent Auto 18.8 % (20-40); Mean Corpuscular Hemoglobin 32.2 pg (27.0-33.0); Mean Corpuscular Volume 97.5 fL (80.0-98.0); Mean Platelet Volume 8.7 fL (9.4-12.3); Monocytes Absolute Auto 0.8 X10*3/uL (0.1-1.2); Neutrophils Absolute Auto 6.9 x10*3/uL (2.0-8.3); Neutrophils Percent Auto 70.6 % (45-73); Platelet Count 295 X10*3/uL (160-400); Red Blood Count 3.67 X10*6/uL (4.20-5.50); Red Cell Distribution Width 12.9 % (11.0-16.0); White Blood Count 9.8 X10*3/uL (4.8-10.8)
[2021-06-22 15:10] LABS: Appearance Urine CLEAR; Color Urine YELLOW; Glucose Urine UA NEG (NEG); Leukocyte Esterase Urine NEG (NEG); Nitrite Urine NEG (NEG); Specific Gravity - Urine 1.025 (1.005-1.025); Urine Blood NEG (NEG); Urine Ketones NEG (NEG); Urine Protein NEG (NEG-TRACE)
[2021-06-22 15:19] LABS: Alanine Aminotransferase 79 U/L (0-31); Albumin Level 3.6 g/dL (3.5-5.0); Alkaline Phosphatase 125 U/L (39-117); Amylase 89 U/L (28-100); Anion Gap 13 (12-20); Aspartate Amino Transferase 91 U/L (5-31); Bilirubin Total 0.6 mg/dL (0.0-1.0); Blood Urea Nitrogen 20 mg/dL (9-16); Calcium 9.2 mg/dL (8.4-10.2); Carbon Dioxide 24 mmol/L (22-29); Chloride 105 mmol/L (96-108); Estimated Glomerular Filt Rate > 60; Glucose Random 67 mg/dL (60-115); Lipase 51 U/L (8-78); Potassium 5.1 mmol/L (3.3-5.1); Sodium 137 mmol/L (135-145); Total Protein 7.9 g/dL (6.5-8.0)
[2021-06-22] MEDS: iohexoL 350 MG/ML 100 ML INFUS..BTL IV (16:49)
[2021-06-22] MEDS: Barium Sulfate Oral (Vanilla) 450 ML ORAL.SUSP 900 ML PO (16:51)
[2021-06-27 12:42] LABS: Alpha Fetoprotein 2.6 ng/mL
[2021-06-27 16:21] LABS: Mitochondrial Antibodies NEGATIVE (NEGATIVE)
[2021-06-28 13:35] LABS: Smooth Muscle Antibody 23 U (<20)
== END 2021-06-22 14:01 | disposition home or self-care (01) ==
LOC: HO.CT 14:00
PROVIDERS: Absent Provider Internal Medicine; PCP Internal Medicine; Visit Provider Nurse Practitioner
DX: R10.9 Unspecified abdominal pain (principal); R11.2 Nausea with vomiting, unspecified; R63.4 Abnormal weight loss; Z87.19 Personal history of other diseases of the digestive system
CPT/HCPCS: 36415; 74177; 80053; 81003; 82105; 82150; 83690; 85025; 86015; 86255; 86256; Q9967

== ENCOUNTER → 2021-06-23 14:47 | Outpatient (BNVA) | payer MEDICARE, MEDICAID, SELFPAY | PROVIDERS: PCP Internal Medicine; Referring Provider Internal Medicine; Visit Provider Nurse Practitioner | DX: R63.4 Abnormal weight loss (principal); Z68.29 Body mass index [BMI] 29.0-29.9, adult; R11.2 Nausea with vomiting, unspecified; R10.33 Periumbilical pain; R76.8 Other specified abnormal immunological findings in serum | CPT/HCPCS: 99212 ==

== ENCOUNTER → 2021-07-25 14:08 | Outpatient (BNVA) | payer MEDICARE, MEDICAID, SELFPAY | PROVIDERS: PCP Internal Medicine; Visit Provider Internal Medicine | DX: J84.9 Interstitial pulmonary disease, unspecified (principal); J47.9 Bronchiectasis, uncomplicated; R05.9 Cough, unspecified | CPT/HCPCS: 99212 ==

== ENCOUNTER → 2021-07-28 14:35 | Outpatient (BNVA) | payer MEDICARE, MEDICAID, SELFPAY | PROVIDERS: PCP Internal Medicine; Referring Provider Internal Medicine; Visit Provider Nurse Practitioner | DX: K21.00 Gastro-esophageal reflux disease with esophagitis, without bleeding (principal); R63.4 Abnormal weight loss; R10.33 Periumbilical pain; R11.2 Nausea with vomiting, unspecified; E83.110 Hereditary hemochromatosis; R76.8 Other specified abnormal immunological findings in serum; K90.89 Other intestinal malabsorption; Z87.19 Personal history of other diseases of the digestive system | CPT/HCPCS: 99212 ==

== ENCOUNTER → 2021-09-05 14:31 | Outpatient (BNVA) | payer MEDICARE, MEDICAID, SELFPAY | PROVIDERS: PCP Internal Medicine; Visit Provider Internal Medicine | DX: J84.9 Interstitial pulmonary disease, unspecified (principal); J47.9 Bronchiectasis, uncomplicated; R05.9 Cough, unspecified; J45.909 Unspecified asthma, uncomplicated; Z79.899 Other long term (current) drug therapy | CPT/HCPCS: 99212 ==

== ENCOUNTER → 2021-10-11 15:34 | Outpatient (BNVA) | payer MEDICARE, MEDICAID, SELFPAY | PROVIDERS: PCP Internal Medicine; Visit Provider Nurse Practitioner | DX: R19.7 Diarrhea, unspecified (principal); R10.33 Periumbilical pain; R63.4 Abnormal weight loss; K21.00 Gastro-esophageal reflux disease with esophagitis, without bleeding; E83.110 Hereditary hemochromatosis; R76.8 Other specified abnormal immunological findings in serum; R79.89 Other specified abnormal findings of blood chemistry | CPT/HCPCS: 99212 ==

== ENCOUNTER 2021-10-18 15:25 | Outpatient (REF) | payer MEDICARE, MEDICAID, SELFPAY ==
[2021-10-26 14:56] LABS: HPV 16 RNA NOT DETECTED (NOT DETECTED); HPV mRNA E6/E7 rflx Detected (Not Detected)
== END 2021-10-18 15:26 | disposition home or self-care (01) ==
LOC: HO.LAB 15:25
PROVIDERS: Visit Provider Obstetrics & Gynecology
DX: Z01.419 Encounter for gynecological examination (general) (routine) without abnormal findings (principal); Z11.51 Encounter for screening for human papillomavirus (HPV)
CPT/HCPCS: 87624; 87625; 88142

== ENCOUNTER → 2021-10-23 14:48 | Outpatient (BNVA) | payer MEDICARE, MEDICAID, SELFPAY | PROVIDERS: PCP Internal Medicine; Visit Provider Internal Medicine | DX: J47.9 Bronchiectasis, uncomplicated (principal); J84.9 Interstitial pulmonary disease, unspecified; J32.9 Chronic sinusitis, unspecified; U09.9 Post COVID-19 condition, unspecified; Z79.899 Other long term (current) drug therapy | CPT/HCPCS: 99212 ==

== ENCOUNTER 2021-11-06 09:26 | Outpatient (REF) | payer MEDICARE, MEDICAID, SELFPAY ==
--- NOTE | ~2021-11-06 | XR_ITS ---
EXAMINATION: XR CHEST CLINICAL INFORMATION: Shortness of breath COMPARISON: Previous chest x-ray most recent January [address] most recent April 2021 TECHNIQUE: 2 views of the chest were obtained. FINDINGS: The cardiac and mediastinal contours are stable. There are increased interstitial markings seen in the lungs suggestive of interstitial lung disease. This may be slightly increased compared to prior exams. The lung volumes are low. No acute pulmonary finding is seen. There is no pleural effusion or pneumothorax. There are degenerative changes of the spine. There is a stable calcification in the right breast. XR/XR chest 2V IMPRESSION: Interstitial lung disease, question slightly increased from prior exams.
--- NOTE | ~2021-11-06 | XR_ITS ---
EXAMINATION: XR SINUSES CLINICAL INFORMATION: Chronic sinus pressure for stiffness COMPARISON: None TECHNIQUE: 3 views of the sinuses were obtained. FINDINGS: Paranasal sinuses are well aerated and clear. No opacification or air-fluid level to suggest sinusitis is seen. Bony structures are normal. XR/XR sinus min 3V IMPRESSION: Unremarkable examination.
[2021-11-06 16:10] LABS: Hemoglobin 11.4 g/dl (12.0-16.0); Imm Gran Abs Auto 0.03 X10*3/uL (0.00-0.03); Imm Gran Pct Auto 0.4 % (0.0-0.4); MANUAL DIFF FLAG SCAN; PLT CLUMP 1; Red Cell Distribution Width 13.3 % (11.0-16.0); SCAN SMEAR FLAG 1
[2021-11-06 16:12] LABS: Basophils Percent Auto 0.4 % (0-2); Eosinophils Absolute Auto 0.1 X10*3/uL (0.0-0.4); Eosinophils Percent Auto 1.5 % (0-4); Hematocrit 33.1 % (37.0-47.0); Lymphocytes Absolute Auto 1.6 X10*3/uL (1.2-4.9); Lymphocytes Percent Auto 23.7 % (20-40); Mean Corpuscular HGB Conc 34.4 g/dl (31.0-35.0); Mean Corpuscular Volume 95.9 fL (80.0-98.0); Mean Platelet Volume 9.3 fL (9.4-12.3); Monocytes Absolute Auto 0.4 X10*3/uL (0.1-1.2); Monocytes Percent Auto 6.4 % (2-11); Neutrophils Absolute Auto 4.7 x10*3/uL (2.0-8.3); Neutrophils Percent Auto 67.6 % (45-73); Red Blood Count 3.45 X10*6/uL (4.20-5.50)
[2021-11-06 16:33] LABS: Alanine Aminotransferase 59 U/L (0-31); Albumin Level 3.8 g/dL (3.5-5.0); Alkaline Phosphatase 102 U/L (39-117); Anion Gap 13 (12-20); Aspartate Amino Transferase 61 U/L (5-31); Bilirubin Total 0.4 mg/dL (0.0-1.0); Blood Urea Nitrogen 16 mg/dL (9-16); C Reactive Protein 0.31 mg/dL (< or = 0.50); Calcium 8.9 mg/dL (8.4-10.2); Carbon Dioxide 22 mmol/L (22-29); Chloride 107 mmol/L (96-108); Estimated Glomerular Filt Rate > 60; Glucose Random 113 mg/dL (60-115); Platelet Count 226 X10*3/uL (160-400); Potassium 4.3 mmol/L (3.3-5.1); Rheumatoid Factor 24.4 IU/mL (<15.0); Sodium 138 mmol/L (135-145); Total Protein 7.8 g/dL (6.5-8.0); White Blood Count 6.9 X10*3/uL (4.8-10.8)
[2021-11-06 16:34] LABS: SLIDE REVIEW VERIFIED
[2021-11-06 16:41] LABS: Erythrocyte Sedimentation Rate 78 MM/HR (0-20)
[2021-11-06 16:48] LABS: Gamma Glutamyl Transpeptidase 174 U/L (7-33)
[2021-11-08 12:53] LABS: Alpha Fetoprotein 3.2 ng/mL
[2021-11-10 17:47] LABS: Anti Nuclear Antibody Screen POSITIVE (NEGATIVE)
== END 2021-11-06 09:27 | disposition home or self-care (01) ==
LOC: HO.XRAY 09:26
PROVIDERS: Absent Provider Nurse Practitioner; PCP Internal Medicine; Visit Provider Internal Medicine
DX: J84.9 Interstitial pulmonary disease, unspecified (principal); J47.9 Bronchiectasis, uncomplicated; J40 Bronchitis, not specified as acute or chronic; J32.9 Chronic sinusitis, unspecified; R19.7 Diarrhea, unspecified; R63.4 Abnormal weight loss; R79.89 Other specified abnormal findings of blood chemistry
CPT/HCPCS: 36415; 70220; 71046; 80053; 81335; 81479; 82105; 82397; 82977; 83520; 85025; 85652; 86038; 86039; 86140; 86431; 88346; 88350; Q3014

== ENCOUNTER 2021-11-07 14:20 | Outpatient (REF) | payer MEDICARE, MEDICAID, SELFPAY | END 2021-11-07 14:21 | disposition home or self-care (01) | LOC: HO.LAB 14:20 | PROVIDERS: Visit Provider Obstetrics & Gynecology | DX: R87.810 Cervical high risk human papillomavirus (HPV) DNA test positive (principal); R87.610 Atypical squamous cells of undetermined significance on cytologic smear of cervix (ASC-US) | CPT/HCPCS: 57455; 88305 ==

== ENCOUNTER 2021-11-08 10:30 | Outpatient (REF) | payer MEDICARE, MEDICAID, SELFPAY ==
[2021-11-11 09:38] LABS: Campylobacter Not Detected (Not Detect.); E. coli EAEC Not Detected (Not Detect.); E. coli EPEC Not Detected (Not Detect.); E. coli ETEC Not Detected (Not Detect.); E. coli STEC Not Detected (Not Detect.); Plesiomonas shigelloides Not Detected (Not Detect.); Salmonella Not Detected (Not Detect.); Vibrio Not Detected (Not Detect.); Vibrio Cholerae Not Detected (Not Detect.); Yersinia enterocolitica Not Detected (Not Detect.)
[2021-11-11 09:39] LABS: Adenovirus F 40/41 Not Detected (Not Detect.); Astrovirus Not Detected (Not Detect.); Cryptosporidium Not Detected (Not Detect.); Cyclospora cayetanensis Not Detected (Not Detect.); Entamoeba histolytica Not Detected (Not Detect.); Giardia lamblia Not Detected (Not Detect.); Norovirus GI/GII Not Detected (Not Detect.); Rotavirus A Not Detected (Not Detect.); Sapovirus Not Detected (Not Detect.); Shigella sp./EIEC Not Detected (Not Detect.)
== END 2021-11-08 10:31 | disposition home or self-care (01) ==
LOC: HO.LNP 10:30
PROVIDERS: Visit Provider Nurse Practitioner
DX: J40 Bronchitis, not specified as acute or chronic (principal); R05.9 Cough, unspecified; R19.7 Diarrhea, unspecified; R63.4 Abnormal weight loss
CPT/HCPCS: 83993; 87070; 87205; 87507

== ENCOUNTER → 2021-11-09 16:01 | Outpatient (BNVA) | payer MEDICARE, MEDICAID, SELFPAY | PROVIDERS: PCP Internal Medicine; Visit Provider Nurse Practitioner | DX: K75.4 Autoimmune hepatitis (principal); E55.9 Vitamin D deficiency, unspecified; R74.02 Elevation of levels of lactic acid dehydrogenase [LDH]; R76.8 Other specified abnormal immunological findings in serum; E83.110 Hereditary hemochromatosis; R11.2 Nausea with vomiting, unspecified; K21.00 Gastro-esophageal reflux disease with esophagitis, without bleeding | CPT/HCPCS: 99212 ==

== ENCOUNTER 2021-11-10 16:13 | Outpatient (REF) | payer MEDICARE, MEDICAID, SELFPAY | END 2021-11-10 16:14 | disposition home or self-care (01) | LOC: HO.LNP 16:13 | PROVIDERS: Visit Provider Nurse Practitioner | DX: Z13.89 Encounter for screening for other disorder (principal) | CPT/HCPCS: 83993; 87070; 87205; 87507 ==

== ENCOUNTER → 2021-11-21 14:08 | Outpatient (BNVA) | payer MEDICARE, MEDICAID, SELFPAY | PROVIDERS: PCP Internal Medicine; Visit Provider Obstetrics & Gynecology | DX: R87.610 Atypical squamous cells of undetermined significance on cytologic smear of cervix (ASC-US) (principal); R87.810 Cervical high risk human papillomavirus (HPV) DNA test positive | CPT/HCPCS: 99212 ==

== ENCOUNTER → 2021-12-08 15:51 | Outpatient (BNVA) | payer MEDICARE, MEDICAID, SELFPAY | PROVIDERS: PCP Internal Medicine; Visit Provider Nurse Practitioner | DX: K75.4 Autoimmune hepatitis (principal); E83.110 Hereditary hemochromatosis; R76.8 Other specified abnormal immunological findings in serum; R87.610 Atypical squamous cells of undetermined significance on cytologic smear of cervix (ASC-US); R87.810 Cervical high risk human papillomavirus (HPV) DNA test positive; K90.89 Other intestinal malabsorption | CPT/HCPCS: 99212 ==

== ENCOUNTER 2022-01-05 12:42 | Outpatient (REF) | payer MEDICARE, MEDICAID, SELFPAY ==
[2022-01-05 13:39] LABS: Alanine Aminotransferase 53 U/L (0-31); Albumin Level 3.8 g/dL (3.5-5.0); Alkaline Phosphatase 119 U/L (39-117); Aspartate Amino Transferase 53 U/L (5-31); Bilirubin Direct 0.2 mg/dL (0.0-0.5); Bilirubin Total 0.3 mg/dL (0.0-1.0); Total Protein 7.8 g/dL (6.5-8.0)
[2022-01-05 13:59] LABS: Ferritin 110 ng/mL (10-250)
[2022-01-08 18:32] LABS: TS Negative Control Passed; TS Panel A 0; TS Panel B 0; TS Positive Control Passed; TSpotTB Negative (Negative)
== END 2022-01-05 12:43 | disposition home or self-care (01) ==
LOC: HO.LAB 12:42
PROVIDERS: Visit Provider Nurse Practitioner
DX: Z11.1 Encounter for screening for respiratory tuberculosis (principal); R10.33 Periumbilical pain; R11.2 Nausea with vomiting, unspecified; K21.00 Gastro-esophageal reflux disease with esophagitis, without bleeding; R63.4 Abnormal weight loss; K75.4 Autoimmune hepatitis; E83.110 Hereditary hemochromatosis; R76.8 Other specified abnormal immunological findings in serum; R74.02 Elevation of levels of lactic acid dehydrogenase [LDH]; Z85.038 Personal history of other malignant neoplasm of large intestine
CPT/HCPCS: 36415; 80076; 82728; 86481; 99212

== ENCOUNTER 2022-02-09 11:38 | Day surgery (SDC) | payer MEDICARE, MEDICAID, SELFPAY ==
--- NOTE | 2022-02-08 13:15 | P.CONAN_ITS ---
Documented by User: Shila Carbajal NP 02/08/22 13:16 [facility] Active Problems Active Problems: All Active Problems (Updated 01/05/22 @ 17:34 by SAM Ceja) Weight loss, abnormal (Acute) Rectal bleeding (Acute) Vitamin D deficiency (Acute) ASCUS with positive high risk HPV cervical (Acute) Sinusitis (Acute) Bronchitis (Acute) Post covid-19 condition, unspecified (Acute) Sinusitis (Acute) Well woman exam (Acute) Elevated LFTs (Acute) Diarrhea (Acute) Osteopenia (Acute) Interstitial lung disease (Acute) Asthma (Acute) Scabies (Acute) Rosacea (Acute) Fatigue (Acute) Low vitamin D level (Acute) Fatigue (Acute) Bronchiectasis (Acute) Bile salt-induced diarrhea (Acute) Cough (Acute) HPV test positive (Acute) Arthralgia (Acute) Gastritis (Acute) Shoulder pain, bilateral (Acute) Vertigo (Acute) Dysuria (Acute) Dizziness (Acute) Postmenopausal bleeding (Acute) IBS (irritable bowel syndrome) (Acute) Elevated LDH (Acute) Elevated rheumatoid factor (Acute) Elevated antinuclear antibody (SVETLANA) level (Acute) Hyperglycemia (Acute) Left-sided thoracic back pain (Acute) Left flank pain (Acute) Annual physical exam (Acute) Hemochromatosis (Acute) Hematuria (Acute) Flank pain (Acute) Nausea and vomiting (Acute) Weight loss, abnormal (Acute) Periumbilical abdominal pain (Acute) History of small bowel obstruction (Acute) History of colon cancer (Acute) GERD with esophagitis (Acute) Abdominal pain (Acute) Acute sinusitis (Acute) Postmenopausal bleeding (Acute) Past Medical History Medical History (Updated 01/05/22 @ 17:34 by SAM Ceja) Asthma Bronchiectasis Bronchitis Colon cancer Cough Dysuria Hemochromatosis Hyperglycemia Interstitial lung disease Palpitation Post covid-19 condition, unspecified Recurrent intestinal obstruction Seasonal allergies Shoulder pain, bilateral Sinusitis Sinusitis Tubular adenoma Vaginal cancer Vertigo Family History Family History Father Dementia GSW (gunshot wound) CAD (coronary artery disease) Mother GSW (gunshot wound) Family/Other Diabetes mellitus Brother CAD (coronary artery disease) Sister No problems noted. Surgical History Surgical History H/O colectomy H/O colonoscopy History of cholecystectomy History of esophagogastroduodenoscopy (EGD) Social History Social History Household Members: Other Housing: House Do you presently have visiting nurse or other home services: No Alcohol intake: current Alcohol intake frequency: 0-2 drinks per day Patient Tobacco Use Status: Never used Tobacco e-Cigarette/Vaping Use: Never Used Second Hand Smoke Exposure: Yes Advance Directives: No Advance Directives Information Provided: Yes service: No Current occupational status: unemployed Sexual orientation: Straight/Heterosexual Gender identity: Female Meds Allergies Allergy/AdvReac Type Severity Reaction Status Date / Time No Known Allergies Allergy Verified 01/05/22 15:48 [No Known Allergies*] Home Medications Medication Instructions Recorded Confirmed Last Taken Type fluticasone propionate 50 1 spray intranasal DAILY 08/20/20 11/06/21 Unknown History mcg/actuation nasal spray,suspension ascorbate calcium (vitamin C) 500 1 g PO Q6H 10/11/21 11/06/21 Unknown History mg tablet ketoconazole 2 % topical cream 1 appl topical 10/11/21 11/06/21 Unknown History prednisone 5 mg tablet 5 mg PO DAILY Interstitial Lung 10/23/21 11/06/21 Unknown History disease azithromycin 250 mg tablet 250 mg PO DAILY 01/05/22 Unknown History cholecalciferol (vitamin D3) 125 125 mcg PO DAILY 01/05/22 Unknown History mcg (5,000 unit) capsule Exam Exam Date and Time: February 08, 2022 1315 Pertinent Lab Results Pertinent Lab Results: Laboratory Tests 11/06/21 11/06/21 15:34 15:34 WBC 6.9 Hgb 11.4 L Hct 33.1 L Plt Count 226 Sodium 138 Potassium 4.3 Chloride 107 Carbon Dioxide 22 BUN 16 Creatinine 0.79 Narrative Narrative: EKG 03/2021 IMPRESSION:? Mild restrictive ventilatory defect with positive bronchodilator response. Assessment and Plan Assessment Anesthesia Assessment: Chart Reviewed Documented by User: Alessandra Davis MD 02/09/22 11:52 [facility] Past Medical History Medical History (Updated 01/05/22 @ 17:34 by SAM Ceja) Asthma Bronchiectasis Bronchitis Colon cancer Cough Dysuria Hemochromatosis Hyperglycemia Interstitial lung disease Palpitation Post covid-19 condition, unspecified Recurrent intestinal obstruction Seasonal allergies Shoulder pain, bilateral Sinusitis Sinusitis Tubular adenoma Vaginal cancer Vertigo Family History Family History Father Dementia GSW (gunshot wound) CAD (coronary artery disease) Mother GSW (gunshot wound) Family/Other Diabetes mellitus Brother CAD (coronary artery disease) Sister No problems noted. Family history of problems with anesthesia: No Surgical History Surgical History H/O colectomy H/O colonoscopy History of cholecystectomy History of esophagogastroduodenoscopy (EGD) History of Problems with Anesthesia: No Social History Social History Household Members: Other Housing: House Do you presently have visiting nurse or other home services: No Alcohol intake: current Alcohol intake frequency: 0-2 drinks per day Patient Tobacco Use Status: Never used Tobacco e-Cigarette/Vaping Use: Never Used Second Hand Smoke Exposure: Yes Advance Directives: No Advance Directives Information Provided: Yes service: No Current occupational status: unemployed Sexual orientation: Straight/Heterosexual Gender identity: Female Meds Allergies Allergy/AdvReac Type Severity Reaction Status Date / Time No Known Allergies Allergy Verified 01/05/22 15:48 [No Known Allergies*] Home Medications Medication Instructions Recorded Confirmed Last Taken Type fluticasone propionate 50 1 spray intranasal DAILY 08/20/20 11/06/21 Unknown History mcg/actuation nasal spray,suspension ascorbate calcium (vitamin C) 500 1 g PO Q6H 10/11/21 11/06/21 Unknown History mg tablet ketoconazole 2 % topical cream 1 appl topical 10/11/21 11/06/21 Unknown History prednisone 5 mg tablet 5 mg PO DAILY Interstitial Lung 10/23/21 11/06/21 Unknown History disease azithromycin 250 mg tablet 250 mg PO DAILY 01/05/22 Unknown History cholecalciferol (vitamin D3) 125 125 mcg PO DAILY 01/05/22 Unknown History mcg (5,000 unit) capsule Exam Airway Mallampati Class: II TM Dist: >3cm Neck ROM: Full Heart: rrr Lungs: cta Assessment and Plan Assessment Anesthesia Assessment: Anesthesia Plan Discussed and Chart Reviewed Final Anesthetic Review Family History of Problems with Anesthesia: No History of Problems with Anesthesia: No NPO: Yes ASA Class: III Final Preanesthetic Review: No Changes in Pt Med Stat, Meds/Allgs Chart Reviewed and Consent Obtained/Reviewed Patient Risk: Intermediate Procedure Risk: Intermediate Anesthetic Plan Anesthetic Plan: MAC:
[2022-02-09 12:13] VITALS: BP 122/85; PULSE 88; RESP 16; TEMP 36.9; O2SAT 97
[2022-02-09] MEDS: Lactated Ringers 1,000 ML 100 ML IVCONT (12:15)
--- NOTE | 2022-02-09 12:44 | MHC.SHP ---
Pre-Procedural Eval Section A Date of Service: 02/09/22 The patient is an INPATIENT: No The History & Physical has been completed within 30 days and I have reviewed it.: No Section B Chief Complaint: abdominal pain,reflux disease,hx malignant neoplas Details of Present Illness: colon cancer screen, history of colon cancer, abdominal pain, rectal bleeding Relevant Family History (Specify if Yes): No Relevant Social History: None Present Medications: see Short Stay Collaborative assessment Medical History: Significant History (Asthma Bronchiectasis Bronchitis Colon cancer Cough Dysuria Hemochromatosis Hyperglycemia Interstitial lung disease Palpitation Post covid-19 condition, unspecified Recurrent intestinal obstruction Seasonal allergies Shoulder pain, bilateral Sinusitis Sinusitis Tubular adenoma Vaginal cancer Vertigo) History of Previous Operations: Relevant previous surgery/procedure and date(s) (H/O colectomy H/O colonoscopy History of cholecystectomy History of esophagogastroduodenoscopy (EGD)) Allergies: Allergies Allergy/AdvReac Type Severity Reaction Status Date / Time No Known Allergies Allergy Verified 01/05/22 15:48 [No Known Allergies*] Review of Systems Sugical H&P ROS: Negative: Constitution, Cardiovascular and Respiratory and Yes, Specify: Gastrointestinal (abdominal pain, rectal bleeding) Exam Surgical H&P Exam: Normal: Heart, Normal: Lungs, Normal: Extremities and Normal: Abdomen Plan Diagnosis/Plan: Unchanged I have reviewed the history and physical and performed a pertinent physical examination on my patient. No changes have occurred unless specified.
[2022-02-09 12:56] VITALS: BMI 27.2
--- NOTE | 2022-02-09 13:06 | P.BOP_ITS ---
Brief Operative Note Date of Service: 02/09/22 Pre-op diagnosis: colon cancer screening, history of colon cancer, abdominal pain, rectal bleeding Post-op diagnosis: other (GERD, esophagitis, gastritis, gastric antral nodules, colon polyp, diverticulosis,radiation proctitis) Procedure: UPPER ENDOSCOPY WITH BIOPSIES COLONOSCOPY TO CECUM WITH BIOPSIES, SNARE POLYPECTOMY AND APC TREATMENT OF RADIATION PROCTITIS Surgeon: Ramiro Oconnor MD Anesthesia: MAC Was an Auto Mechanic Apprentice used for this Procedure?: Yes Auto Mechanic Apprentice: Paras Dickerson Estimated blood loss (mL): 0 Pathology: other ( A- SMALL BOWEL BXS R/O SPRU B- GASTRIC ANTRUM BXS C- GASTRIC ANTRAL NODULE D- GASTRIC BODY BXS E- CECAL POLYP F- ASCENDING COLON POLYPS G- TRANSVERS) Condition: stable Disposition: PACU
--- NOTE | 2022-02-09 13:07 | W.PM.OPN ---
Operative Note Operative Note Date of Service: 02/09/22 Narrative: Pre-op diagnosis: colon cancer screening, history of colon cancer, abdominal pain, rectal bleeding Post-op diagnosis:?other (GERD, esophagitis, gastritis, gastric antral nodules, colon polyp,? diverticulosis,radiation proctitis) Surgeon: Ramiro Oconnor MD Anesthesia:?MAC FLEXIBLE TRANSORAL UPPER GASTROINTESTINAL ENDOSCOPY WITH BIOPSIES AND COLONOSCOPY TILL CECUM WITH BIOPSIES, SNARE POLYPECTOMY AND APC TREATMENT OF RADIATION PROCTITIS UPPER ENDOSCOPY Consent: Indications for the procedure and potential complications of bleeding, perforation, reaction to medications and missed diagnosis were discussed with the patient and informed consent was obtained. Instrument: Olympus GIF H 190 mid size upper endoscope Monitoring: Vital signs and clinical assessment, continuous EKG monitoring, Pulse oximetry, Carbon Dioxide monitoring and blood pressure monitoring were done throughout the procedure. Procedure: The patient was placed in the left lateral decubitis position and pre-procedure medications were administered and a bite block was placed. The endoscope was inserted into the mouth and advanced under direct vision to the third part of duodenum. A careful inspection was made as the upper endoscope was withdrawn including a retroflexed examination of the proximal stomach; Findings and interventions are described below. Findings: Larynx: Normal Esophagus: GE junction at 36 cms. Focal esophagitis at GE junction with a 2 cms superficIal erosion. No Jalloh's. Stomach: Moderate diffuse gastric erythema with prominent gastric folds and submucosal hemorhages in the gastric body - biopsies obtained. Two 1.5 cms benign appearing nodules in the pre-pyloric area - biopsies were obtained. Antral biopsies were taken to check for H pylori Grade 2 flap valve on retroflexed examination of the cardia. Duodenum: Normal bulb and descending duodenum. Biopsies were obtained from 3rd part of the duodenum to check for celiac sprue Intervention: Biopsies as noted above COLONOSCOPY PROCEDURE NOTE Consent: Indications for the procedure and potential complications of bleeding, perforation, reaction to medications and missed diagnosis were discussed with the patient and informed consent was obtained. Instrument: Olympus PCF H 190 L variable stiffness pediatric colonoscope Monitoring: Vital signs and clinical assessment, intermittent blood pressure monitoring, continuous EKG monitoring, Pulse oximetry and Carbon Dioxide monitoring were done throughout the procedure. Colon withdrawl time was 24 minutes. Procedure: The patient was placed in the left lateral decubitis position and pre-procedure medications were administered. After a digital rectal examination of the ano-rectum, the video colonoscope was inserted into the rectum and advanced through the colon to the cecum. The colonoscope was slowly withdrawn in a retrograde panoramic fashion and the colon mucosa was carefully examined including a retroflexed view of the rectum. Findings and interventions are described below. Procedure Difficulty: : Without difficulty Findings: Terminal Ileum: Not evaluated Cecum: A 12 to 15 mm sessile polyp - removed with a hot snare. Ascending Colon: Two 5-6 mm sessile polyp in the distal AC - removed with the cold biopsy. Transverse Colon: Two 8 to 12 mm sessile polyps removed with a hot and a cold snare. Descending Colon: Normal Sigmoid Colon: Normal appearing anastomosis at 10 cms. One 10-12 mm sessile polyp removed with a hot snare. 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 Ano-rectum: Normal Colon preparation: Good Impression and Post Procedure Diagnosis: Endoscopy Findings: ESOPHAGUS: GE junction at 36 cms. Focal esophagitis at GE junction with a 2 cms superficIal erosion. No Jalloh's. STOMACH: Moderate diffuse gastric erythema with prominent gastric folds and submucosal hemorhages in the gastric body - biopsies obtained. Two 1.5 cms benign appearing nodules in the pre-pyloric area - biopsies were obtained. DUODENUM: Normal - biopsied to check for celiac sprue Colonoscopy Findings: Six small to medium sized polyps removed. Moderate diverticulosis seen in the sigmoid colon. 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 (Pt gives hx of radiation therapy in the past for Colon and gynecological cancer) Plan: Await pathology results Patient to schedule a FU appointment in the GI Clinic with Lelo Tabor NP. Repeat Colonoscopy interval based on path results - in 3-5 years if polyps are adenomatous and due to a personal hx of colon cancer. Above findings were reviewed with the patient and colon polyps and diverticulosis handouts were given in the discharge area Of note - Pt complained of abdominal pain after the procedure which improved after treatment with Fentanyl)
[2022-02-09 14:13] VITALS: BP 121/58; PULSE 82; RESP 20; TEMP 36.1; O2SAT 100
[2022-02-09 14:29] VITALS: BP 133/67; PULSE 79; RESP 20; O2SAT 98
[2022-02-09] MEDS: Simethicone 80 MG TAB.CHEW PO (14:42)
[2022-02-09 14:48] VITALS: BP 127/78; PULSE 74; RESP 18; TEMP 36.4; O2SAT 98
== END 2022-02-09 15:40 | disposition home or self-care (01) ==
PROVIDERS: PCP Internal Medicine; Visit Provider Internal Medicine Gastroenterology
PROC: (CPT 45385; principal; 2022-02-09 12:40)
DX: Z12.11 Encounter for screening for malignant neoplasm of colon (principal); Z85.038 Personal history of other malignant neoplasm of large intestine; Z90.49 Acquired absence of other specified parts of digestive tract; Z98.0 Intestinal bypass and anastomosis status; Z86.010 Personal history of colon polyps; K62.5 Hemorrhage of anus and rectum; K62.7 Radiation proctitis; Y84.2 Radiological procedure and radiotherapy as the cause of abnormal reaction of the patient, or of later complication, without mention of misadventure at the time of the procedure; D12.0 Benign neoplasm of cecum; D12.2 Benign neoplasm of ascending colon; D12.3 Benign neoplasm of transverse colon; D12.5 Benign neoplasm of sigmoid colon; K57.30 Diverticulosis of large intestine without perforation or abscess without bleeding; R10.9 Unspecified abdominal pain; K75.4 Autoimmune hepatitis; K90.89 Other intestinal malabsorption; Z85.44 Personal history of malignant neoplasm of other female genital organs; R87.610 Atypical squamous cells of undetermined significance on cytologic smear of cervix (ASC-US); R87.810 Cervical high risk human papillomavirus (HPV) DNA test positive; K21.00 Gastro-esophageal reflux disease with esophagitis, without bleeding; K29.50 Unspecified chronic gastritis without bleeding; K31.7 Polyp of stomach and duodenum; E83.119 Hemochromatosis, unspecified; R73.9 Hyperglycemia, unspecified; J84.9 Interstitial pulmonary disease, unspecified; J45.909 Unspecified asthma, uncomplicated; J47.9 Bronchiectasis, uncomplicated; R00.2 Palpitations; R76.8 Other specified abnormal immunological findings in serum; Z79.52 Long term (current) use of systemic steroids; Z86.16 Personal history of COVID-19; Z79.899 Other long term (current) drug therapy
CPT/HCPCS: 45385; 45380; 45382; 43239; 88305; 88342

== ENCOUNTER → 2022-03-23 15:58 | Outpatient (BNVA) | payer MEDICARE, MEDICAID, SELFPAY | PROVIDERS: Visit Provider Nurse Practitioner | DX: K62.7 Radiation proctitis (principal); D12.0 Benign neoplasm of cecum; D12.2 Benign neoplasm of ascending colon; D12.3 Benign neoplasm of transverse colon; D12.5 Benign neoplasm of sigmoid colon; K90.89 Other intestinal malabsorption; Z85.038 Personal history of other malignant neoplasm of large intestine; Z98.890 Other specified postprocedural states | CPT/HCPCS: 99212 ==

== ENCOUNTER → 2022-04-02 15:23 | Outpatient (BNVA) | payer MEDICARE, MEDICAID, SELFPAY | PROVIDERS: Visit Provider Internal Medicine | DX: J84.9 Interstitial pulmonary disease, unspecified (principal); J40 Bronchitis, not specified as acute or chronic; J47.9 Bronchiectasis, uncomplicated | CPT/HCPCS: 99212 ==

== ENCOUNTER 2022-04-08 03:59 | Inpatient (IN) | payer MEDICARE, MEDICAID, SELFPAY ==
[2022-04-08] VITALS (8 sets, daily range): BP systolic 89–144; BP diastolic 55–98; PULSE 91–98; RESP 16–22; TEMP 36.7–36.9; O2SAT 91–99; BMI 27.4; BMI 27.3
--- NOTE | ~2022-04-08 | CT_ITS ---
EXAMINATION: CT ABDOMEN AND PELVIS WITHOUT AND WITH CONTRAST GI BLEED CLINICAL INFORMATION: Status post colonoscopy, severe abdominal pain and rectal bleed COMPARISON: 06/22/2021 TECHNIQUE: Multidetector volumetric images were obtained from the superior aspect of the liver through the pubic symphysis prior to and following administration 80 mL of Omnipaque 350 intravenous contrast. Sagittal and coronal reformatted images were obtained on the technologist's workstation. Oral contrast: No This CT examination was performed using dose optimization techniques as appropriate, variously including the following: *Automated exposure control *Adjustment of mA and/or kV according to patient size (this includes techniques or standardized protocols for targeted exams where dose is matched to indication/reason for exam; i.e. extremities or head) *Use of iterative reconstruction technique DLP: 1360 mGy-cm FINDINGS: LUNG BASES: Peripheral reticulation and fibrosis suspicious for chronic lung disease with usual interstitial pneumonia pattern. LIVER, GALLBLADDER, AND BILIARY TREE: The liver has a mildly nodular contour. No focal hepatic lesion identified. Status post cholecystectomy with intrahepatic and extrahepatic biliary ductal dilatation which may be physiologic, similar to prior. PANCREAS: Unremarkable. SPLEEN: Unremarkable. ADRENAL GLANDS: Unremarkable. KIDNEYS AND URETERS: Bilateral nephrograms are symmetric. No hydronephrosis or obstructing calculus identified. Small hypodensities in bilateral kidneys favor cysts; no follow-up recommended. BLADDER: Unremarkable. GASTROINTESTINAL TRACT: No active gastrointestinal hemorrhage is seen. No significant bowel wall thickening. Moderate volume of stool is present. There are multiple fluid-filled, dilated loops of small bowel. Transition from dilated to nondilated small bowel is suspected to lie in the pelvis, and overall configuration is suspicious for small bowel obstruction. Trace pelvic free fluid noted. No free air is seen. ABDOMINAL WALL: No significant hernia is appreciated. LYMPH NODES: Persistent mildly enlarged gastrohepatic lymph node. VASCULAR: Scattered atherosclerotic calcifications. PELVIC VISCERA: Unremarkable. OSSEOUS STRUCTURES: Degenerative changes are noted in the spine. CT/CT gi bleed abd pel wo/w IVcon IMPRESSION: 1. No active gastrointestinal hemorrhage identified. 2. Multiple fluid-filled, dilated loops of small bowel with transition point in the pelvis, suspicious for small bowel obstruction. 3. Trace pelvic free fluid. 4. Intrahepatic and extrahepatic biliary ductal dilatation, which may be physiologic in the setting of prior cholecystectomy. 5. Chronic lung disease with usual interstitial pneumonia pattern.
--- NOTE | ~2022-04-08 | XR_ITS ---
EXAMINATION: XR CHEST CLINICAL INFORMATION: Shortness of breath and cough. COMPARISON: 11/06/2021 TECHNIQUE: 2 views of the chest were obtained. FINDINGS: There is diffuse interstitial lung disease present bilaterally with a more peripheral appearance. There is also a region of scarring within the mid right lung. Bronchial wall thickening is present. No new focus of confluent parenchymal disease is seen. No pneumothorax or pleural effusion. Heart normal size. No evidence of pulmonary edema. XR/XR chest 2V IMPRESSION: Chronic interstitial lung disease without significant change.
--- NOTE | ~2022-04-08 | FL_ITS ---
EXAMINATION: XR UPPER GI SERIES WITH SMALL BOWEL CLINICAL INFORMATION: Abdominal pain. Distal small bowel obstruction on recent CT. 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 COMPARISON: CT GI bleed exam 04/08/2022. TECHNIQUE: Upper GI series and small bowel follow-through and are performed using fluoroscopic evaluation in addition to fluoroscopic spot views and portable overhead images. The patient is imaged supine and oblique using approximately 16 ounces of dilute water-soluble contrast (50% Gastrografin/50% water). Fluoroscopy time: 1.81 minutes DAP: 36.249 Gycm2 Fluoroscopic spot and last image saved images: 23 FINDINGS: The blending supervisor images demonstrate surgical clips right upper quadrant and overlying the central pelvis. There is moderate stool in the colon. No gaseous dilatation of bowel. There is decreased primary esophageal peristaltic activity with tertiary contractions. No destruction or focal structure. There is borderline sliding hiatal hernia. Spontaneous gastroesophageal reflux is noted during fluoroscopy with contrast extending to mid thoracic esophagus. The stomach appears smooth in contour. No thickened folds or ulcer crater. No gastric outlet obstruction. The duodenal bulb and duodenum shows no focal abnormality. Contrast is followed through the small bowel and reaches the colon between 2 hours and 3 hours. There is no small bowel dilatation during the exam nor thickening of folds. No focal stricture is demonstrated in the area of suspected small bowel transition on the CT study. FL/FL upper GI small bowel IMPRESSION: -Esophageal dysmotility with tertiary contractions. -Borderline sliding hiatal hernia. Spontaneous gastroesophageal reflux. -No small bowel obstruction. No thickening of folds. Contrast reaches colon between 2-3 hours.
[2022-04-08 04:22] LABS: MANUAL DIFF FLAG NO
[2022-04-08 04:24] LABS: Basophils Percent Auto 0.3 % (0-2); Eosinophils Absolute Auto 0.2 X10*3/uL (0.0-0.4); Eosinophils Percent Auto 1.6 % (0-4); Hematocrit 34.2 % (37.0-47.0); Hemoglobin 11.7 g/dl (12.0-16.0); Imm Gran Abs Auto 0.03 X10*3/uL (0.00-0.03); Imm Gran Pct Auto 0.3 % (0.0-0.4); Lymphocytes Absolute Auto 1.2 X10*3/uL (1.2-4.9); Lymphocytes Percent Auto 12.7 % (20-40); Mean Corpuscular HGB Conc 34.2 g/dl (31.0-35.0); Mean Corpuscular Hemoglobin 32.9 pg (27.0-33.0); Mean Corpuscular Volume 96.1 fL (80.0-98.0); Mean Platelet Volume 8.9 fL (9.4-12.3); Monocytes Absolute Auto 0.7 X10*3/uL (0.1-1.2); Monocytes Percent Auto 7.5 % (2-11); Neutrophils Absolute Auto 7.2 x10*3/uL (2.0-8.3); Neutrophils Percent Auto 77.6 % (45-73); Platelet Count 252 X10*3/uL (160-400); Red Blood Count 3.56 X10*6/uL (4.20-5.50); Red Cell Distribution Width 13.2 % (11.0-16.0); White Blood Count 9.3 X10*3/uL (4.8-10.8)
--- NOTE | 2022-04-08 04:25 | ED.ABDPAIN ---
HPI - Abdominal Pain General Chief Complaint: Abdominal Pain Stated Complaint: MID ABD PAIN,CRAMPING,RECTAL BLEEDING PER EMS Time Seen by Provider: 04/08/22 04:15 Source: patient Mode of arrival: ambulatory Limitations: no limitations History of Present Illness HPI narrative: Patient comes to the emergency room complaining of severe abdominal pain. Patient states that approximately 3 hours ago, patient woke up from her sleep with severe abdominal pain. Patient states it feels the same like a smile bowel obstruction. Patient states she has history of small-bowel obstructions secondary to abdominal surgeries for small bowel and large bowel resections to cancer. Patient also states that approximately 2 weeks ago she had a colonoscopy. Patient states that she had been doing well until yesterday, patient started having rectal bleeding, large blood clots. Patient also complaining of nausea and vomiting. Related Data Home Medications Medication Instructions Recorded Confirmed fluticasone propionate 50 1 spray intranasal DAILY 08/20/20 11/06/21 mcg/actuation nasal spray,suspension ascorbate calcium (vitamin C) 500 1 g PO Q6H 10/11/21 11/06/21 mg tablet ketoconazole 2 % topical cream 1 appl topical 10/11/21 11/06/21 cholecalciferol (vitamin D3) 125 125 mcg PO DAILY 01/05/22 mcg (5,000 unit) capsule Previous Rx's Medication Instructions Recorded aspirin 81 mg tablet,delayed 81 mg PO DAILY #0 tabs 08/22/20 release metoprolol succinate 25 mg 25 mg PO DAILY #90 tabs 01/19/21 tablet,extended release 24 hr [id number] 1 cap PO .TIDAC #90 caps 03/28/21 24,000-76,000-120,000 unit capsule,delayed rel (Creon) pantoprazole 40 mg tablet,delayed 40 mg PO DAILY #30 tabs 03/28/21 release sucralfate 1 gram tablet 2 g PO DAILY #60 tabs 03/23/22 doxycycline hyclate 100 mg capsule 100 mg PO BID BRONCHITIS 10 days 04/02/22 #20 caps prednisone 10 mg tablet 10 mg PO BID 10 days #20 tabs 04/02/22 albuterol sulfate 90 mcg/actuation 2 puff inhalation Q4-6H PRN for 04/04/22 aerosol inhaler (Ventolin HFA) wheezing #18 ea budesonide-formoterol HFA 160 2 puff PO Q12H for asthma #10.2 ea 04/06/22 mcg-4.5 mcg/actuation aerosol inhaler (Symbicort) Allergies Allergy/AdvReac Type Severity Reaction Status Date / Time No Known Allergies Allergy Verified 04/02/22 15:59 [No Known Allergies*] Review of Systems Review of Systems Constitutional : No Weight loss, No Fever, No Chills, No Night Sweats, No Fatigue, No Malaise ENT/Mouth : No Hearing loss, No Ear Pain, No Nasal Congestion, No Sinus Pain, No Hoarseness, No sore throat, No Rhinorrhea, No Swallowing Difficulty Eyes: No Eye Pain, No Swelling, No Redness, No Foreign Body, No Discharge, No Vision Changes Cardiovascular : No Chest Pain, No SOB, No Dyspnea on Exertion, No Orthopnea, No Edema, No Palpitations Respiratory : No Cough, No Sputum, No Wheezing, No Smoke Exposure, No Dyspnea Gastrointestinal : Complaining of nausea, vomiting, bright red blood per rectum, diffuse abdominal pain 10/10 Genitourinary : no irregular bleeding, No Dysuria, No Urinary Frequency, No Hematuria, No Urinary Incontinence, No Urgency, No Flank Pain, No Urinary Flow Changes, No Hesitancy Musculoskeletal : No joint pain, No Myalgias, No Joint Swelling Skin : No Skin Lesions, No rash Neuro : No Weakness, No Numbness, No Paresthesias, No Loss of Consciousness, No Dizziness, No Headache Psych : No Anxiety/Panic, No Depression, No SI/HI/AH/VH, No Social Issues, Heme/Lymph: No Bruising, No Bleeding,No Lymphadenopathy Endocrine : No Polyuria, No Polydipsia, No Temperature Intolerance [facility] Past Medical History Medical History Asthma Bronchiectasis Bronchitis Bronchitis Colon cancer Cough Dysuria Hemochromatosis Hyperglycemia Interstitial lung disease Palpitation Post covid-19 condition, unspecified Recurrent intestinal obstruction Seasonal allergies Shoulder pain, bilateral Sinusitis Sinusitis Tubular adenoma Vaginal cancer Vertigo Surgical History H/O colectomy H/O colonoscopy History of cholecystectomy History of esophagogastroduodenoscopy (EGD) Family History Family History Father Dementia GSW (gunshot wound) CAD (coronary artery disease) Mother GSW (gunshot wound) Family/Other Diabetes mellitus Brother CAD (coronary artery disease) Sister No problems noted. Social History Social History Household Members: Other Housing: House Do you presently have visiting nurse or other home services: No Alcohol intake: current Alcohol intake frequency: does not drink Patient Tobacco Use Status: Never used Tobacco e-Cigarette/Vaping Use: Never Used Second Hand Smoke Exposure: Yes Advance Directives: Yes Advance Directives on File: Yes Advance Directives Date on File: 08/20/20 service: No Current occupational status: unemployed Sexual orientation: Straight/Heterosexual Gender identity: Female Physical Exam ED Vital Signs: Vital Signs - 24 hr 04/08/22 04:09 04/08/22 06:30 Temperature 98.5 F Pulse Rate 96 98 Respiratory Rate 22 H 16 Blood Pressure 133/75 120/74 Pulse Oximetry 99 96 Oxygen Delivery Method Room Air Room Air BMI result Body Mass Index 27.4 Const Other: Appearance: Alert. Oriented X3. Looks very uncomfortable Eyes: Pupils equal, round and reactive to light. ENT: Pharynx normal. Neck: Normal inspection. Neck supple. No lymph nodes noted. No crepitus CVS: Normal heart rate and rhythm. Pulses normal. Normal S1 and S2 Respiratory: No respiratory distress. Breath sounds normal. No Wheezing. No rales Abdomen: Soft, distended, mild rigidity, diffuse tenderness in all quadrants Skin: Skin warm and dry. Normal skin color. Normal skin turgor. Extremities: No lower extremity edema. No Lacerations. No Rash Neuro: Oriented X 3. No motor deficit. No sensory deficit. Moving all extremities. No slurred speech. CN 2 through 12 grossly intact Psych: calm, cooperative, normal affect Course Course Course Narrative: -patient receiving IV fluids, Zofran, morphine -of patient's labs and imaging pending. Medical Decision Making Medical Decision Making MDM Narrative: -I reviewed the patient's gastroenterology notes. Seems that the reason that patient has continued rectal bleeding is secondary to radiation proctitis. The GI team is trying to book the patient for an argon plasma facilities clerk procedure -CT scan shows multiple fluid levels, suspicious for small bowel obstruction. I discussed the patient with Dr. Gill, he will be in shortly to evaluate the patient. Patient stable Differential Diagnosis Differential Diagnoses: The differential diagnosis associated with the presentation includes (SBO, perforation) Admission/Observation Consideration of admission/observation: Escalation of care including admission/observation considered (Patient likely to be admitted, this would be either by surgery versus Medicine. Dr. Gill will evaluate the pt shortly) Consult Healthcare Provider Management of the patient was discussed with: Labor Supervisor (Arabella from surgery) Lab Data MDM Lab Attestation statement: I reviewed the patient's lab results. 04/08/22 04:18 04/08/22 04:18 Labs: Lab Results 04/08/22 04/08/22 04/08/22 Range/Units 04:18 04:32 04:32 WBC 9.3 (4.8-10.8) X10*3/uL RBC 3.56 L (4.20-5.50) X10*6/uL Hgb 11.7 L (12.0-16.0) g/dl Hct 34.2 L (37.0-47.0) % MCV 96.1 (80.0-98.0) fL MCH 32.9 (27.0-33.0) pg MCHC 34.2 (31.0-35.0) g/dl RDW 13.2 (11.0-16.0) % Plt Count 252 (160-400) X10*3/uL MPV 8.9 L (9.4-12.3) fL Immature Gran % (Auto) 0.3 (0.0-0.4) % Neut % (Auto) 77.6 H (45-73) % Lymph % (Auto) 12.7 L (20-40) % Stevens % (Auto) 7.5 (2-11) % Eos % (Auto) 1.6 (0-4) % Baso % (Auto) 0.3 (0-2) % Lymph # (Auto) 1.2 (1.2-4.9) X10*3/uL Stevens # (Auto) 0.7 (0.1-1.2) X10*3/uL Eos # (Auto) 0.2 (0.0-0.4) X10*3/uL Baso # (Auto) 0.0 (0.0-0.2) X10*3/uL Abs Immat Gran (auto) 0.03 (0.00-0.03) X10*3/uL Absolute Neuts (auto) 7.2 (2.0-8.3) x10*3/uL Absolute Nucleated RBC 0.000 (0.0-0.012) X10*3/uL Nucleated RBC % (auto) 0.0 (0.0-0.2) /100WBC PT 11.1 (10.0-13.1) SEC INR 1.0 (0.9-1.1) Sodium 137 (135-145) mmol/L Potassium 4.6 (3.3-5.1) mmol/L Chloride 107 (96-108) mmol/L Carbon Dioxide 19 L (22-29) mmol/L Anion Gap 16 (12-20) BUN 26 H (9-16) mg/dL Creatinine 0.86 (0.5-1.4) mg/dL Estim Creat Clear Calc 52.6 Estimated GFR > 60 Random Glucose 98 (60-115) mg/dL Lactic Acid (0.5-2.0) mmol/L Calcium 9.3 (8.4-10.2) mg/dL Magnesium 2.3 (1.6-2.6) mg/dL Total Bilirubin 0.4 (0.0-1.0) mg/dL Direct Bilirubin < 0.2 (0.0-0.5) mg/dL AST 66 H (5-31) U/L ALT 77 H (0-31) U/L Alkaline Phosphatase 156 H (39-117) U/L Total Protein 7.9 (6.5-8.0) g/dL Albumin 3.8 (3.5-5.0) g/dL Lipase 26 (8-78) U/L COVID-19 (S[facility]Y) (Negative) COVID-19 Clin Com 04/08/22 04/08/22 Range/Units 04:32 04:32 WBC (4.8-10.8) X10*3/uL RBC (4.20-5.50) X10*6/uL Hgb (12.0-16.0) g/dl Hct (37.0-47.0) % MCV (80.0-98.0) fL MCH (27.0-33.0) pg MCHC (31.0-35.0) g/dl RDW (11.0-16.0) % Plt Count (160-400) X10*3/uL MPV (9.4-12.3) fL Immature Gran % (Auto) (0.0-0.4) % Neut % (Auto) (45-73) % Lymph % (Auto) (20-40) % Stevens % (Auto) (2-11) % Eos % (Auto) (0-4) % Baso % (Auto) (0-2) % Lymph # (Auto) (1.2-4.9) X10*3/uL Stevens # (Auto) (0.1-1.2) X10*3/uL Eos # (Auto) (0.0-0.4) X10*3/uL Baso # (Auto) (0.0-0.2) X10*3/uL Abs Immat Gran (auto) (0.00-0.03) X10*3/uL Absolute Neuts (auto) (2.0-8.3) x10*3/uL Absolute Nucleated RBC (0.0-0.012) X10*3/uL Nucleated RBC % (auto) (0.0-0.2) /100WBC PT (10.0-13.1) SEC INR (0.9-1.1) Sodium (135-145) mmol/L Potassium (3.3-5.1) mmol/L Chloride (96-108) mmol/L Carbon Dioxide (22-29) mmol/L Anion Gap (12-20) BUN (9-16) mg/dL Creatinine (0.5-1.4) mg/dL Estim Creat Clear Calc Estimated GFR Random Glucose (60-115) mg/dL Lactic Acid 1.3 (0.5-2.0) mmol/L Calcium (8.4-10.2) mg/dL Magnesium (1.6-2.6) mg/dL Total Bilirubin (0.0-1.0) mg/dL Direct Bilirubin (0.0-0.5) mg/dL AST (5-31) U/L ALT (0-31) U/L Alkaline Phosphatase (39-117) U/L Total Protein (6.5-8.0) g/dL Albumin (3.5-5.0) g/dL Lipase (8-78) U/L COVID-19 (S[facility]Y) Negative (Negative) COVID-19 Clin Com See Note Independent Interpretation I performed an independent interpretation of an: CT Scan (My interpretation: Small bowel obstruction, air-fluid levels present) Radiology Impression Discussion of test interpretation with radiology: I have reviewed the radiologist's reading. Radiologist Impression: FINDINGS: LUNG BASES: Peripheral reticulation and fibrosis suspicious for chronic lung disease with usual interstitial pneumonia pattern.? LIVER, GALLBLADDER, AND BILIARY TREE: The liver has a mildly nodular contour. No focal hepatic lesion identified. Status post cholecystectomy with intrahepatic and extrahepatic biliary ductal dilatation which may be physiologic, similar to prior.? PANCREAS: Unremarkable.? SPLEEN: Unremarkable.? ADRENAL GLANDS: Unremarkable.? KIDNEYS AND URETERS: Bilateral nephrograms are symmetric. No hydronephrosis or obstructing calculus identified. Small hypodensities in bilateral kidneys favor cysts; no follow-up recommended. BLADDER: Unremarkable.? GASTROINTESTINAL TRACT: No active gastrointestinal hemorrhage is seen. No significant bowel wall thickening. Moderate volume of stool is present. There are multiple fluid-filled, dilated loops of small bowel. Transition from dilated to nondilated small bowel is suspected to lie in the pelvis, and overall configuration is suspicious for small bowel obstruction. Trace pelvic free fluid noted. No free air is seen. ABDOMINAL WALL: No significant hernia is appreciated.? LYMPH NODES: Persistent mildly enlarged gastrohepatic lymph node. VASCULAR: Scattered atherosclerotic calcifications. PELVIC VISCERA: Unremarkable.? OSSEOUS STRUCTURES: Degenerative changes are noted in the spine.? CT/CT gi bleed abd pel wo/w IVcon IMPRESSION: 1.? No active gastrointestinal hemorrhage identified. 2.? Multiple fluid-filled, dilated loops of small bowel with transition point in the pelvis, suspicious for small bowel obstruction. 3.? Trace pelvic free fluid. 4.? Intrahepatic and extrahepatic biliary ductal dilatation, which may be physiologic in the setting of prior cholecystectomy. 5.? Chronic lung disease with usual interstitial pneumonia pattern. ? External Record Review External record reviewed: Office record (I reviewed GI records, pt has chronic rectal bleeding from radiation, more procedures pending) Medications Administered Discontinued Medications Generic Name Dose Route Start Last Admin Trade Name Freq PRN Reason Stop Dose Admin Hydromorphone HCl 1 mg 04/08/22 05:08 04/08/22 05:19 Hydromorphone Hcl 1 Mg/Ml Syringe IVPUSH 04/08/22 05:09 1 mg ONCE ONE Administration Protocol Sodium Chloride 1,000 mls @ 999 mls/hr 04/08/22 04:21 04/08/22 06:17 Ns IVCONT 04/08/22 05:21 Infused .Q1H1M ONE Infusion Iohexol 80 ml 04/08/22 05:40 04/08/22 05:41 Iohexol 350 Mg/Ml 100 Ml Infus..Btl IV 04/08/22 05:41 80 ml ONCE ONE Administration Morphine Sulfate 4 mg 04/08/22 04:21 04/08/22 04:34 Morphine Sulfate 4 Mg/Ml Cartridge IVPUSH 04/08/22 04:22 4 mg ONCE ONE Administration Protocol Ondansetron HCl 4 mg 04/08/22 04:21 04/08/22 04:34 Ondansetron Hcl 4 Mg/2 Ml Vial IVPUSH 04/08/22 04:22 4 mg ONCE ONE Administration Critical Care Time Critical Care Time Critical Care Time: Yes Total Critical Care Time: 60 Attestation: I have personally provided critical care time. Time includes review of lab data, radiology results, discussion with consultants, and monitoring for potential decompensation. Intervention performed as documented. Discharge Plan Discharge Clinical Impression: SBO (small bowel obstruction) Patient Disposition: Admitted As Inpatient
[2022-04-08] MEDS: Morphine Sulfate 4 MG/ML CARTRIDGE IVPUSH (04:34)
[2022-04-08] MEDS: ondansetron HCL 4 MG/2 ML VIAL IVPUSH ×3 (04:34→14:35)
[2022-04-08] MEDS: 0.9 % Sodium Chloride 1,000 ML 999 ML IVCONT (04:36)
[2022-04-08 04:51] LABS: Lactic Acid 1.3 mmol/L (0.5-2.0)
[2022-04-08 04:56] LABS: Alanine Aminotransferase 77 U/L (0-31); Albumin Level 3.8 g/dL (3.5-5.0); Alkaline Phosphatase 156 U/L (39-117); Anion Gap 16 (12-20); Aspartate Amino Transferase 66 U/L (5-31); Bilirubin Direct < 0.2 mg/dL (0.0-0.5); Bilirubin Total 0.4 mg/dL (0.0-1.0); Blood Urea Nitrogen 26 mg/dL (9-16); Calcium 9.3 mg/dL (8.4-10.2); Carbon Dioxide 19 mmol/L (22-29); Chloride 107 mmol/L (96-108); Creatinine Clr Calc Pharmacy 52.6; Estimated Glomerular Filt Rate > 60; Glucose Random 98 mg/dL (60-115); Lipase 26 U/L (8-78); Magnesium 2.3 mg/dL (1.6-2.6); Potassium 4.6 mmol/L (3.3-5.1); Prothrombin Time 11.1 SEC (10.0-13.1); Sodium 137 mmol/L (135-145); Total Protein 7.9 g/dL (6.5-8.0)
[2022-04-08 05:14] LABS: COVID-19 Test Negative (Negative); IDNOW Serial# 6674DD1D
[2022-04-08] MEDS: HYDROmorphone HCl 1 MG/ML SYRINGE IVPUSH ×2 (05:19→07:05)
[2022-04-08] MEDS: iohexoL 350 MG/ML 100 ML INFUS..BTL 80 ML IV (05:41)
--- NOTE | 2022-04-08 06:18 | PC.NURSE ---
patient ambulatory to and from bathroom with steady gait. tried to obtain stool sample but patient unable to have BM. likely is obstructed. small blood clots noted on pad when patient went to bathroom. patient reports she is bleeding rectally and vaginally. 10/10 severe cramping pain to abdomen, very distended and hard to touch. patient states this feels very similar to her previous obstructions. waiting for CT results. will continue to monitor
--- NOTE | 2022-04-08 07:01 | PC.NURSE ---
assumed care of patient, pt aox3, calm and cooperative, VSS. pt c/o pain and nausea. plan for admission
[2022-04-08 07:40] LABS: OBS Int Ctl Valid YES; OBS1 POSITIVE (NEGATIVE)
--- NOTE | 2022-04-08 08:18 | P.HPGS_ITS ---
History of Present Illness History of Present Illness Date of Service: 04/08/22 Chief complaint: Bowel obstruction due to adhesions, partial Narrative: Erin Mooney is a 71 year old female presenting with complaints of abdominal pain 10/10 in severity located in the lower abdomen associated with bloody stool. She has had numerous previous episodes of small-bowel obstruction feels the symptoms agree similar to previous episodes. Many times the episodes resolve spontaneously without coming to the emergency department but this time the pain was too severe. She maintained herself on clear liquids without significant improvement. She subsequently presented to the emergency department and was noted to be tender in lower abdomen. Past history is significant for previous colon surgery followed by pelvic radiation. She has a known history of radiation proctitis. Laboratories revealed normal WBC, hemoglobin of 11.7, BUN of 26. While in the emergency department she reported nausea and vomiting. CT abdomen and pelvis revealed dilated loops of small bowel with air-fluid levels with a transition point in the pelvis at the site of previous surgery and radiation therapy. Findings were consistent with a partial small-bowel obstruction due to adhesions. Patient will be admitted to the surgical service for further management. Review of Systems Review of Systems: Yes all other systems are reviewed and are negative Constitutional: Constitutional: Denies chills, Denies fever(s), Denies headache(s), Reports poor appetite and Denies weakness ENT: Denies headache(s) Cardiovascular: Cardiovascular: Denies chest pain, Denies irregular heart rhythm, Denies palpitations and Denies dyspnea Respiratory: Respiratory: Denies cough, Denies excessive phlegm production and Denies dyspnea Gastrointestinal: Gastrointestinal: Reports abdominal pain, Reports bloating, Denies change in bowel habits, Reports change in stool character, Reports constipation, Denies heartburn, Denies diarrhea, Reports nausea, Reports vomiting and Denies hematemesis Genitourinary: Genitourinary: Denies urinary frequency Musculoskeletal: Musculoskeletal: Denies back pain, Denies muscle weakness and Denies numbness Integumentary/Breasts: Skin/Breast: Denies changing lesions and Denies unusual bruising Neurologic: Denies headache(s), Denies numbness, Denies paresthesias and Den ies weakness Psychiatric: Psychiatric: Denies anxiety and Denies depression Endocrine: Endocrine: Denies palpitations Hematologic/Lymphatic: Hematologic/Lymphatic: Denies lymphadenopathy [facility] Past Medical History Medical History Asthma Bronchiectasis Bronchitis Bronchitis Colon cancer Cough Dysuria Hemochromatosis Hyperglycemia Interstitial lung disease Palpitation Post covid-19 condition, unspecified Recurrent intestinal obstruction Seasonal allergies Shoulder pain, bilateral Sinusitis Sinusitis Tubular adenoma Vaginal cancer Vertigo Family History Family History Father Dementia GSW (gunshot wound) CAD (coronary artery disease) Mother GSW (gunshot wound) Family/Other Diabetes mellitus Brother CAD (coronary artery disease) Sister No problems noted. Surgical History Surgical History H/O colectomy H/O colonoscopy History of cholecystectomy History of esophagogastroduodenoscopy (EGD) Social History Social History Household Members: Other Housing: House Do you presently have visiting nurse or other home services: No Alcohol intake: current Alcohol intake frequency: does not drink Patient Tobacco Use Status: Never used Tobacco e-Cigarette/Vaping Use: Never Used Second Hand Smoke Exposure: Yes Advance Directives: Yes Advance Directives on File: Yes Advance Directives Date on File: 08/20/20 service: No Current occupational status: unemployed Sexual orientation: Straight/Heterosexual Gender identity: Female Meds Allergies Allergy/AdvReac Type Severity Reaction Status Date / Time No Known Allergies Allergy Verified 04/02/22 15:59 [No Known Allergies*] Active Medications: Current Medications Acetaminophen (Acetaminophen 325 Mg Tablet) 650 mg PO Q6H PRN PRN Reason: Pain, Mild (Pain Scale 1-3) Hydromorphone HCl (Hydromorphone Hcl 0.5 Mg/0.5 Ml Syringe) 0.5 mg IVPUSH Q3H PRN; Protocol PRN Reason: Pain, Severe (Pain Scale 7-10) Dextrose/Lactated Ringer's (D5lr) 1,000 mls @ 125 mls/hr IVCONT .Q8H [facility] Ondansetron HCl (Ondansetron Hcl 4 Mg/2 Ml Vial) 4 mg IVPUSH QID PRN PRN Reason: Nausea Pharmacy Consult (Consult Rx Perform Med Rec) 1 each MISCELLANE ONCE PRN PRN Reason: Consult order Simethicone (Simethicone 80 Mg Tab.Chew) 80 mg PO QIDWMHS PRN PRN Reason: Gas Sodium Chloride (0.9 % Sodium Chloride Flush 3 Ml Syringe) 3 ml IVFLUSH QSHIFT [facility] Zolpidem Tartrate (Zolpidem Tartrate 5 Mg Tablet) 5 mg PO BEDTIME PRN PRN Reason: Insomnia Home Medications Medication Instructions Recorded Confirmed Last Taken Type fluticasone propionate 50 1 spray intranasal DAILY 08/20/20 11/06/21 Unknown History mcg/actuation nasal spray,suspension ascorbate calcium (vitamin C) 500 1 g PO Q6H 10/11/21 11/06/21 Unknown History mg tablet ketoconazole 2 % topical cream 1 appl topical 10/11/21 11/06/21 Unknown History cholecalciferol (vitamin D3) 125 125 mcg PO DAILY 01/05/22 Unknown History mcg (5,000 unit) capsule Physical Exam Vital Signs: Vital Signs: Last Vital Signs Temp 98.5 F 04/08/22 04:09 Pulse 98 04/08/22 06:30 Resp 16 04/08/22 06:30 BP 120/74 04/08/22 06:30 Pulse Ox 96 04/08/22 06:30 O2 Del Method 04/08/22 06:30 BMI result Body Mass Index 27.4 Const: General: cooperative and no acute distress Nutritional Appearance: well nourished Orientation/consciousness: patient oriented x3 Limitations: no limitations HEENT: Head: Yes normocephalic and Yes atraumatic Ears: hearing grossly normal bilaterally Resp: Effort & Inspection: normal respiratory effort, no audible wheezes, no cough and no respiratory distress Auscultation: clear to auscultation bilaterally Cardio: Jugular venous distension: no JVD GI: Inspection: Yes normal to inspection, Yes distended and Yes scar Palpation (GI): Soft to palpation, Tenderness to palpation present (GI) in the LLQ and in the RLQ and No hepatosplenomegaly present Percussion: Yes tympanic to percussion Auscultation: normal bowel sounds Rectal Exam - Female: deferred Skin: Other: Warm, dry, no rash Neuro: General: patient oriented x3 Extrem: General: Yes no clubbing, cyanosis or edema Results Results Labs: Short CBC 04/08/22 Range/Units 04:18 WBC 9.3 (4.8-10.8) X10*3/uL Hgb 11.7 L (12.0-16.0) g/dl Hct 34.2 L (37.0-47.0) % Plt Count 252 (160-400) X10*3/uL BMP 04/08/22 04:32 Sodium 137 Potassium 4.6 Chloride 107 Carbon Dioxide 19 L BUN 26 H Creatinine 0.86 Calcium 9.3 Liver Function 04/08/22 Range/Units 04:32 Total Bilirubin 0.4 (0.0-1.0) mg/dL Direct Bilirubin < 0.2 (0.0-0.5) mg/dL AST 66 H (5-31) U/L ALT 77 H (0-31) U/L Alkaline Phosphatase 156 H (39-117) U/L Albumin 3.8 (3.5-5.0) g/dL Abdomen CT scan report/results: image reviewed CT scan - pelvis: image reviewed Assessment and Plan (1) SBO (small bowel obstruction): Status: Acute Patient returns with recurrence symptoms of abdominal distension, nausea, vomiting, constipation consistent with small-bowel obstruction. Examination reveals a distended abdomen with tympany to percussion with a large abdominal incision. CT abdomen and pelvis confirmed distended loops of small bowel with a probable partial obstruction occurring in the pelvis. The colon is full stool and not obstructed. There were decompressed loops of bowel In the distal small bowel. I reviewed the images in detail with the patient and recommended admission for bowel rest, IV hydration. As the patient is having on going nausea and vomiting, nasogastric tube decompression is also recommended. If symptoms do not improve over the next several days with non operative management, abdominal exploration may be warranted. (2) Bronchitis: Status: Acute Respiratory status appears stable at this time. Will consult hospitalist for further management. (3) Radiation proctitis: Status: Acute Prior history of radiation to the pelvis with subsequent radiation proctitis and rectal bleeding. Patient recently underwent upper endoscopy and colonoscopy with findings of multiple polyps and evidence of radiation proctitis. (4) Rectal bleeding: Status: Acute If continued rectal bleeding will re-consult Gastroenterology ( Dr. Oconnor). Time Spent With Patient Time: Total time managing care of this patient today _60___ minutes. Quality Stroke Does the patient have a stroke diagnosis?: No VTE Prior VTE?: No VTE Risk Level:: Surgical - moderate VTE Device Contraindication: N/A - Device Ordered VTE Drug Contraindication: Treatment Not Indicated Procedures Date of Service Date of Service: 04/08/22
--- NOTE | 2022-04-08 08:18 | MHC.EDTECH ---
Pt assisted to bathroom
[2022-04-08] MEDS: HYDROmorphone HCl 0.5 MG/0.5 ML SYRINGE IVPUSH ×2 (08:34→11:40)
[2022-04-08] MEDS: Dextrose 5 % and Lactated Ring 1,000 ML 125 ML IVCONT ×2 (08:34→14:52)
--- NOTE | 2022-04-08 08:58 | MHC.EDTECH ---
Blood bank tube collected and sent to lab
--- NOTE | 2022-04-08 11:02 | PHA.MEDREC ---
Pharmacy Consult ? Medication Reconciliation Pharmacy has completed the medication reconciliation. kaia spoke with patient in ED who knew all medications. Contacted [facility] on [facility]. Last time patient picked up metoprolol was 07/21/21 and last time patient picked up creon was 03/28/21 .
[2022-04-08] MEDS: HYDROmorphone HCl 0.5 MG/0.5 ML SYRINGE 1 MG IVPUSH ×2 (14:35→19:19)
[2022-04-08] MEDS: Acetaminophen 1,000 MG/100 ML PIGGYBACK 400 MG IV ×2 (14:35→20:17)
--- NOTE | 2022-04-08 16:24 | HO.PM.IMCN ---
History of Present Illness Data of Consult Service Date: 04/08/22 Primary Care Provider: None Physician HPI Reason for consult: Medication management Patient is a 71-year-old female with PMH significant for colon cancer with colectomy, vaginal cancer, interstitial lung disease, hx of SBO, who presetned to the ED with complaints of severe 10/10 abdominal pain lower abdomen associated with bloody stool. Workup and imaging were consistent partial small-bowel obstruction due to adhesions. NG tube was placed and patient was put on bowel rest. Patient seen and evaluated for a medical management. Patient currently has abdominal pain and bloating, reduced since admission, throat irritation, and dry lips. Nausea and vomiting has resolved since NG tube placement. Patient denies shortness of breath. No chest pain/pressure, palpitations. Review of Systems Review of Systems: Abdominal pain and bloating Sore throat Dry lips No shortness of breath Denies chest pain/pressure, palpitations Yes all other systems are reviewed and are negative PMFSH Medical History Asthma Bronchiectasis Bronchitis Bronchitis Colon cancer Cough Dysuria Hemochromatosis Hyperglycemia Interstitial lung disease Palpitation Post covid-19 condition, unspecified Recurrent intestinal obstruction Seasonal allergies Shoulder pain, bilateral Sinusitis Sinusitis Tubular adenoma Vaginal cancer Vertigo Family History Father Dementia GSW (gunshot wound) CAD (coronary artery disease) Mother GSW (gunshot wound) Family/Other Diabetes mellitus Brother CAD (coronary artery disease) Sister No problems noted. Surgical History H/O colectomy H/O colonoscopy History of cholecystectomy History of esophagogastroduodenoscopy (EGD) Social History Household Members: Other Housing: House Do you presently have visiting nurse or other home services: No Alcohol intake: current Alcohol intake frequency: does not drink Patient Tobacco Use Status: Never used Tobacco e-Cigarette/Vaping Use: Never Used Second Hand Smoke Exposure: Yes Advance Directives: Yes Advance Directives on File: Yes Advance Directives Date on File: 08/20/20 service: No Current occupational status: unemployed Sexual orientation: Straight/Heterosexual Gender identity: Female Meds Allergies Allergy/AdvReac Type Severity Reaction Status Date / Time No Known Allergies Allergy Verified 04/02/22 15:59 [No Known Allergies*] Active Medications: Current Medications Acetaminophen (Acetaminophen 325 Mg Tablet) 650 mg PO Q6H PRN PRN Reason: Pain, Mild (Pain Scale 1-3) Albuterol Sulfate (Albuterol Sulfate 90 Mcg 8 Gm Inhaler) 2 puff INHALE Q4-6H PRN PRN Reason: for wheezing Lipase/Protease/Amylase (Lipase/Prot/Amylase 24/76/120k 1 Cap Capsule.) 1 cap PO TIDAC [facility] Aspirin (Aspirin Enteric Coated 81 Mg Tablet.) 81 mg PO DAILY [facility] Fluticasone Propionate (Fluticasone Propionate Nasal 16 Gm [place]) 1 spray NOSTRIL-B DAILY PRN PRN Reason: Allergy Symptoms Guaifenesin (Guaifenesin La 600 Mg Tab.Er.12h) 600 mg PO Q12H PRN PRN Reason: Congestion Hydromorphone HCl (Hydromorphone Hcl 0.5 Mg/0.5 Ml Syringe) 1 mg IVPUSH Q3H PRN; Protocol PRN Reason: Pain, Severe (Pain Scale 7-10) Last Admin: 04/08/22 14:35 Dose: 1 mg Dextrose/Lactated Ringer's (D5lr) 1,000 mls @ 125 mls/hr IVCONT .Q8H [facility] Last Admin: 04/08/22 14:52 Dose: 125 mls/hr Acetaminophen (Ofirmev) 1,000 mg in 100 mls @ 400 mls/hr IV Q6H [facility] Stop: 04/09/22 08:44 Last Infusion: 04/08/22 14:51 Dose: Infused Metoprolol Succinate (Metoprolol Succinate Er 25 Mg Tab.Er.24h) 25 mg PO DAILY [facility]; Protocol Multivitamins/Vitamin C (Multivitamin Tablet) 1 tab PO DAILY [facility] Non-Formulary Medication (Budesonide-Formoterol [Symbicort]) 2 puff PO BID [facility] Non-Formulary Medication (Cholecalciferol (Vitamin D3)) 125 mcg PO DAILY [facility] Non-Formulary Medication (Doxycycline Hyclate) 100 mg PO BID [facility] Non-Formulary Medication (Pantoprazole) 40 mg PO DAILY@0630 [facility] Ondansetron HCl (Ondansetron Hcl 4 Mg/2 Ml Vial) 4 mg IVPUSH QID PRN PRN Reason: Nausea Last Admin: 04/08/22 14:35 Dose: 4 mg Pharmacy Consult (Consult Rx Perform Med Rec) 1 each MISCELLANE ONCE PRN PRN Reason: Consult order Simethicone (Simethicone 80 Mg Tab.Chew) 80 mg PO QIDWMHS PRN PRN Reason: Gas Sodium Chloride (0.9 % Sodium Chloride Flush 3 Ml Syringe) 3 ml IVFLUSH QSHIFT [facility] Last Admin: 04/08/22 14:52 Dose: Not Given Sucralfate (Sucralfate 1 Gm Tablet) 1 gm PO BID [facility] Zolpidem Tartrate (Zolpidem Tartrate 5 Mg Tablet) 5 mg PO BEDTIME PRN PRN Reason: Insomnia Home Medications Medication Instructions Recorded Confirmed Last Taken Type fluticasone propionate 50 1 spray intranasal DAILY PRN 08/20/20 04/08/22 Unknown History mcg/actuation nasal Allergy Symptoms spray,suspension cholecalciferol (vitamin D3) 125 125 mcg PO DAILY 01/05/22 04/08/22 04/07/22 History mcg (5,000 unit) capsule budesonide-formoterol HFA 160 2 puff PO BID for asthma 04/08/22 04/08/22 04/07/22 History mcg-4.5 mcg/actuation aerosol inhaler (Symbicort) guaifenesin 600 mg tablet, 600 mg PO Q12H PRN Congestion 04/08/22 04/08/22 Unknown History extended release 12 hr (Mucinex) [id number] 1 cap PO TIDAC 04/08/22 04/08/22 04/07/22 History 24,000-76,000-120,000 unit capsule,delayed rel (Creon) multivitamin 1 tab PO DAILY 04/08/22 04/08/22 Unknown History pantoprazole 40 mg tablet,delayed 40 mg PO DAILY@0630 04/08/22 04/08/22 04/07/22 History release sucralfate 1 gram tablet 1 g PO BID 04/08/22 04/08/22 Unknown History Physical Exam Vital Signs and Narrative: Vital Signs: Last Vital Signs Temp 98.3 F 04/08/22 15:33 Pulse 91 04/08/22 15:33 Resp 18 04/08/22 15:33 BP 89/55 L 04/08/22 15:33 Pulse Ox 91 L 04/08/22 15:33 O2 Del Method 04/08/22 15:33 BMI result Body Mass Index 27.4 General: AOx3, no acute distress, NGT in place with bilious output with a small amount of blood Resp: CTA bilaterally CVS: S1, S2, RRR GI: Hypoactive bowel sounds, lower abdomen tender, moderate distention Skin: No rash Neuro: Cranial nerves II-XII grossly intact. Motor grossly intact Extremities: No edema Psych: Appropriate affect Results Labs 04/08/22 04:18 04/08/22 04:32 Labs: Laboratory Results - last 24 hr 04/08/22 04/08/22 04/08/22 04:18 04:32 04:32 MCV 96.1 MCH 32.9 MCHC 34.2 RDW 13.2 Plt Count 252 MPV 8.9 L Immature Gran % (Auto) 0.3 Neut % (Auto) 77.6 H Lymph % (Auto) 12.7 L Lamar % (Auto) 7.5 Eos % (Auto) 1.6 Baso % (Auto) 0.3 Lymph # (Auto) 1.2 Lamar # (Auto) 0.7 Eos # (Auto) 0.2 Baso # (Auto) 0.0 Abs Immat Gran (auto) 0.03 Absolute Neuts (auto) 7.2 Absolute Nucleated RBC 0.000 Nucleated RBC % (auto) 0.0 PT 11.1 INR 1.0 Anion Gap 16 Estim Creat Clear Calc 52.6 Estimated GFR > 60 Random Glucose 98 Lactic Acid Calcium 9.3 Magnesium 2.3 Total Bilirubin 0.4 Direct Bilirubin < 0.2 AST 66 H ALT 77 H Alkaline Phosphatase 156 H Total Protein 7.9 Albumin 3.8 Lipase 26 Stool Occult Blood COVID-19 ([facility]Y) COVID-19 Clin Com Blood Type Antibody Screen Antibody Identification Crossmatch Enhanced Crossmatch 04/08/22 04/08/22 04/08/22 04:32 04:32 04:54 MCV MCH MCHC RDW Plt Count MPV Immature Gran % (Auto) Neut % (Auto) Lymph % (Auto) Lamar % (Auto) Eos % (Auto) Baso % (Auto) Lymph # (Auto) Lamar # (Auto) Eos # (Auto) Baso # (Auto) Abs Immat Gran (auto) Absolute Neuts (auto) Absolute Nucleated RBC Nucleated RBC % (auto) PT INR Anion Gap Estim Creat Clear Calc Estimated GFR Random Glucose Lactic Acid 1.3 Calcium Magnesium Total Bilirubin Direct Bilirubin AST ALT Alkaline Phosphatase Total Protein Albumin Lipase Stool Occult Blood COVID-19 (SANDY) Negative COVID-19 Clin Com See Note Blood Type O Positive Antibody Screen POSITIVE Antibody Identification Negative Crossmatch See Detail Enhanced Crossmatch See Detail 04/08/22 Unknown MCV MCH MCHC RDW Plt Count MPV Immature Gran % (Auto) Neut % (Auto) Lymph % (Auto) Lamar % (Auto) Eos % (Auto) Baso % (Auto) Lymph # (Auto) Lamar # (Auto) Eos # (Auto) Baso # (Auto) Abs Immat Gran (auto) Absolute Neuts (auto) Absolute Nucleated RBC Nucleated RBC % (auto) PT INR Anion Gap Estim Creat Clear Calc Estimated GFR Random Glucose Lactic Acid Calcium Magnesium Total Bilirubin Direct Bilirubin AST ALT Alkaline Phosphatase Total Protein Albumin Lipase Stool Occult Blood POSITIVE COVID-19 ([facility]Y) COVID-19 Clin Com Blood Type Antibody Screen Antibody Identification Crossmatch Enhanced Crossmatch Imaging Radiologist's Impressions: Impressions Abdomen/Pelvis CT 04/08/22 05:34 IMPRESSION: 1. No active gastrointestinal hemorrhage identified. 2. Multiple fluid-filled, dilated loops of small bowel with transition point in the pelvis, suspicious for small bowel obstruction. 3. Trace pelvic free fluid. 4. Intrahepatic and extrahepatic biliary ductal dilatation, which may be physiologic in the setting of prior cholecystectomy. 5. Chronic lung disease with usual interstitial pneumonia pattern. Assessment and Plan (1) SBO (small bowel obstruction): Status: Acute (2) Bronchitis: Status: Acute Plan Patient is a 71-year-old female with PMH significant for colon cancer with colectomy, vaginal cancer, interstitial lung disease, hx of SBO, who presetned to the ED with complaints of severe 10/10 abdominal pain lower abdomen associated with bloody stool. Workup and imaging were consistent partial small-bowel obstruction due to adhesions. Pt admitted by General Surgery for management of SBO. Hospital consult for medical management. Pt has no acute complaints outside of those relating to SBO. SBO Plan per general surgery team NGT with copious bilious output and a small amount of bloody output, likely secondary to nasal irritation from tube insertion Interstitial lung disease Continue home inhalers Monitor respiratory status Acute bronchitis Patient saw her PCP Dr. Loja on 04/02/2022 for cough and worsening SOB Chest x-ray showed traction bronchiectasis in both lungs mostly in the periphery in association with chronic interstitial lung disease Patient prescribed prednisone 10 mg b.i.d. times 10 days and doxycycline 100 mg b.i.d. times 10 days for acute bronchitis Patient declines to take prednisone Continue doxycycline 100 mg b.i.d. for 4 more days Monitor respiratory status Thank you for allowing us to participate in the care of this patient. We will continue to follow. Please let us know if there are any questions or acute complaints. Time Spent With Patient Time: Total time managing care of this patient today ____ minutes.
--- NOTE | 2022-04-08 17:47 | PC.NURSE ---
pt becoming anxious in room, c/o SOB however VSS speaking in full clear sentences, demanding to see a provider and would like her NGT out. DENISSE Collins made aware
--- NOTE | 2022-04-08 18:36 | PC.NURSE ---
NGT found to be out of patient. PA made aware. plan to keep out for now
[2022-04-08] MEDS: LORazepam 2 MG/ML VIAL 0.5 MG IVPUSH (19:29)
[2022-04-08] MEDS: Albuterol/Iprat 2.5/0.5MG 3 ML AMPUL.NEB INHALE (20:05)
[2022-04-08] MEDS: Doxycycline Monohydrate 100 MG CAPSULE PO (21:22)
[2022-04-08] MEDS: Sucralfate 1 GM TABLET PO (21:22)
[2022-04-09] VITALS (7 sets, daily range): BP systolic 112–129; BP diastolic 56–69; PULSE 78–86; RESP 15–18; TEMP 36.1–36.4; O2SAT 94–100
[2022-04-09] MEDS: Dextrose 5 % and Lactated Ring 1,000 ML 125 ML IVCONT ×3 (00:11→18:03)
[2022-04-09] MEDS: Acetaminophen 1,000 MG/100 ML PIGGYBACK 400 MG IV ×2 (01:50→09:05)
[2022-04-09] MEDS: HYDROmorphone HCl 0.5 MG/0.5 ML SYRINGE 1 MG IVPUSH ×4 (02:43→20:51)
[2022-04-09] MEDS: LORazepam 2 MG/ML VIAL 0.5 MG IVPUSH ×4 (02:43→20:58)
--- NOTE | 2022-04-09 02:56 | PC.NURSE ---
lab sent priority message for blood-culture (1st set) positive for gram-positive cocci, dr. Puckett notified.
[2022-04-09] MEDS: Omeprazole 20 MG CAPSULE.DR PO (05:43)
[2022-04-09 05:56] LABS: MANUAL DIFF FLAG NO
[2022-04-09 06:03] LABS: Basophils Percent Auto 0.2 % (0-2); Eosinophils Absolute Auto 0.1 X10*3/uL (0.0-0.4); Eosinophils Percent Auto 1.5 % (0-4); Hematocrit 29.2 % (37.0-47.0); Hemoglobin 9.5 g/dl (12.0-16.0); Imm Gran Abs Auto 0.03 X10*3/uL (0.00-0.03); Imm Gran Pct Auto 0.6 % (0.0-0.4); Lymphocytes Absolute Auto 1.5 X10*3/uL (1.2-4.9); Lymphocytes Percent Auto 27.5 % (20-40); Mean Corpuscular HGB Conc 32.5 g/dl (31.0-35.0); Mean Corpuscular Hemoglobin 32.1 pg (27.0-33.0); Mean Corpuscular Volume 98.6 fL (80.0-98.0); Mean Platelet Volume 9.1 fL (9.4-12.3); Monocytes Absolute Auto 0.6 X10*3/uL (0.1-1.2); Monocytes Percent Auto 11.3 % (2-11); Neutrophils Absolute Auto 3.1 x10*3/uL (2.0-8.3); Neutrophils Percent Auto 58.9 % (45-73); Platelet Count 195 X10*3/uL (160-400); Red Blood Count 2.96 X10*6/uL (4.20-5.50); Red Cell Distribution Width 13.6 % (11.0-16.0); White Blood Count 5.3 X10*3/uL (4.8-10.8)
[2022-04-09 06:24] LABS: Anion Gap 12 (12-20); Blood Urea Nitrogen 21 mg/dL (9-16); Calcium 8.1 mg/dL (8.4-10.2); Carbon Dioxide 23 mmol/L (22-29); Chloride 108 mmol/L (96-108); Creatinine Clr Calc Pharmacy 63.8; Estimated Glomerular Filt Rate > 60; Glucose Random 109 mg/dL (60-115); Potassium 4.1 mmol/L (3.3-5.1); Sodium 139 mmol/L (135-145)
--- NOTE | 2022-04-09 07:11 | P.PNGS_ITS ---
Subjective Subjective Date of Service: 04/09/22 Interval history: Overall patient feels improved this morning after passing some flatus and bowel movement. She still feels waves of pain which improved after pain medication. Nasogastric tube came out yesterday. Physical Exam Vital Signs: Vital Signs: Last Vital Signs Temp 97.6 F 04/09/22 03:54 Pulse 79 04/09/22 03:54 Resp 18 04/09/22 03:54 BP 112/58 L 04/09/22 03:54 Pulse Ox 94 04/09/22 03:54 O2 Del Method 04/09/22 03:54 BMI result Body Mass Index 27.3 Const: General: comfortable, no acute distress and anxious Nutritional Appearance: well nourished Orientation/consciousness: patient oriented x3 Limitations: no limitations Resp: Effort & Inspection: normal respiratory effort GI: Inspection: Yes normal to inspection Palpation (GI): Soft to palpation, nontender, no guarding and not rigid Percussion: Yes dullness to percussion Auscultation: normal bowel sounds Rectal Exam - Female: deferred Neuro: General: patient oriented x3 Extrem: General: Yes no clubbing, cyanosis or edema Objective Data Active Medications Acetaminophen (Acetaminophen 325 Mg Tablet) 650 mg PO Q6H PRN PRN Reason: Pain, Mild (Pain Scale 1-3) Albuterol Sulfate (Albuterol Sulfate 90 Mcg 8 Gm Inhaler) 2 puff INHALE Q4H PRN PRN Reason: for wheezing Albuterol/Ipratropium (Albuterol/Iprat 2.5/0.5mg 3 Ml Ampul.Neb) 3 ml INHALE RQ6H WHILE AWAKE [facility] Last Admin: 04/08/22 20:05 Dose: 3 ml Documented By: DAYSI Lipase/Protease/Amylase (Lipase/Prot/Amylase 24/76/120k 1 Cap Capsule.) 1 cap PO TIDAC [facility] Last Admin: 04/08/22 16:26 Dose: Not Given Documented By: PO Non-Admin Reason: NGT Aspirin (Aspirin Enteric Coated 81 Mg Tablet.) 81 mg PO DAILY [facility] Benzonatate (Benzonatate 100 Mg Capsule) 100 mg PO TID PRN PRN Reason: Cough Doxycycline Monohydrate (Doxycycline Monohydrate 100 Mg Capsule) 100 mg PO BID [facility] Last Admin: 04/08/22 21:22 Dose: 100 mg Documented By: SHAR Fluticasone Propionate (Fluticasone Propionate Nasal 16 Gm [place]) 1 spray NOSTRIL-B DAILY PRN PRN Reason: Allergy Symptoms Fluticasone/Vilanterol (Fluticasone/Vilanterol 200/25 Blst.W.Dev) 1 puff INHALE RDAILY [facility] Guaifenesin (Guaifenesin La 600 Mg Tab.Er.12h) 600 mg PO Q12H PRN PRN Reason: Congestion Hydromorphone HCl (Hydromorphone Hcl 0.5 Mg/0.5 Ml Syringe) 1 mg IVPUSH Q3H PRN; Protocol PRN Reason: Pain, Severe (Pain Scale 7-10) Last Admin: 04/09/22 02:43 Dose: 1 mg Documented By: SHAR Dextrose/Lactated Ringer's (D5lr) 1,000 mls @ 125 mls/hr IVCONT .Q8H [facility] Last Admin: 04/09/22 00:11 Dose: 125 mls/hr Documented By: SHAR Acetaminophen (Ofirmev) 1,000 mg in 100 mls @ 400 mls/hr IV Q6H [facility] Stop: 04/09/22 08:44 Last Infusion: 04/09/22 02:05 Dose: 0 mls/hr Documented By: SHAR Lorazepam (Lorazepam 2 Mg/Ml Vial) 0.5 mg IVPUSH Q6H PRN PRN Reason: Anxiety Last Admin: 04/09/22 02:43 Dose: 0.5 mg Documented By: SHAR Metoprolol Succinate (Metoprolol Succinate Er 25 Mg Tab.Er.24h) 25 mg PO DAILY [facility]; Protocol Multivitamins/Vitamin C (Multivitamin Tablet) 1 tab PO DAILY [facility] Omeprazole (Omeprazole 20 Mg Capsule.Dr) 20 mg PO DAILY@0630 [facility] Last Admin: 04/09/22 05:43 Dose: 20 mg Documented By: SHAR Ondansetron HCl (Ondansetron Hcl 4 Mg/2 Ml Vial) 4 mg IVPUSH QID PRN PRN Reason: Nausea Last Admin: 04/08/22 14:35 Dose: 4 mg Documented By: PO Pharmacy Consult (Consult Rx Perform Med Rec) 1 each MISCELLANE ONCE PRN PRN Reason: Consult order Prednisone (Prednisone 10 Mg Tablet) 10 mg PO BIDWM [facility] Simethicone (Simethicone 80 Mg Tab.Chew) 80 mg PO QIDWMHS PRN PRN Reason: Gas Sodium Chloride (0.9 % Sodium Chloride Flush 3 Ml Syringe) 3 ml IVFLUSH QSHIFT [facility] Last Admin: 04/08/22 21:24 Dose: Not Given Documented By: SHAR Non-Admin Reason: IV Running Sucralfate (Sucralfate 1 Gm Tablet) 1 gm PO BID [facility] Last Admin: 04/08/22 21:22 Dose: 1 gm Documented By: SHAR Vitamin D (Cholecalciferol (Vitamin D3) 25 Mcg Tablet) 125 mcg PO DAILY [facility] Zolpidem Tartrate (Zolpidem Tartrate 5 Mg Tablet) 5 mg PO BEDTIME PRN PRN Reason: Insomnia Labs 04/09/22 05:00 04/09/22 05:00 Labs: Laboratory Results - last 24 hr 04/08/22 04/08/22 04/09/22 04:54 Unknown 05:00 MCV 98.6 H MCH 32.1 MCHC 32.5 RDW 13.6 Plt Count 195 MPV 9.1 L Immature Gran % (Auto) 0.6 H Neut % (Auto) 58.9 Lymph % (Auto) 27.5 [place] % (Auto) 11.3 H Eos % (Auto) 1.5 Baso % (Auto) 0.2 Lymph # (Auto) 1.5 [place] # (Auto) 0.6 Eos # (Auto) 0.1 Baso # (Auto) 0.0 Abs Immat Gran (auto) 0.03 Absolute Neuts (auto) 3.1 Absolute Nucleated RBC 0.000 Nucleated RBC % (auto) 0.0 Anion Gap Estim Creat Clear Calc Estimated GFR Random Glucose Calcium Stool Occult Blood POSITIVE Blood Type O Positive Antibody Screen POSITIVE Antibody Identification Negative Crossmatch See Detail Enhanced Crossmatch See Detail 04/09/22 05:00 MCV MCH MCHC RDW Plt Count MPV Immature Gran % (Auto) Neut % (Auto) Lymph % (Auto) [place] % (Auto) Eos % (Auto) Baso % (Auto) Lymph # (Auto) [place] # (Auto) Eos # (Auto) Baso # (Auto) Abs Immat Gran (auto) Absolute Neuts (auto) Absolute Nucleated RBC Nucleated RBC % (auto) Anion Gap 12 Estim Creat Clear Calc 63.8 Estimated GFR > 60 Random Glucose 109 Calcium 8.1 L D Stool Occult Blood Blood Type Antibody Screen Antibody Identification Crossmatch Enhanced Crossmatch Microbiology Microbiology Results: Microbiology 04/08/22 04:32 Blood Culture - Preliminary Blood - Venous No growth after 24 hours. 04/08/22 04:32 Blood Culture - Preliminary Blood - Venous Prelim: GPC Gram Stain only Procedures Date of Service Date of Service: 04/09/22 Progress Note: A&P Assessment and plan (1) SBO (small bowel obstruction): Status: Acute Plan Patient returns with a recurrence small-bowel obstruction. Patient currently being treated with bowel rest and IV hydration. Nasogastric tube was inserted yesterday however subsequently fell out. Overall patient is improved this morning with abdomen being softer and less tender. She reports passing flatus and a small bowel movement. Will continue non operative management bowel rest and possible starting clear liquids later today. Time Spent With Patient Time: Total time managing care of this patient today ____ minutes. Quality Stroke Does the patient have a stroke diagnosis?: No VTE Prior VTE?: No VTE Risk Level:: Surgical - moderate VTE Device Contraindication: N/A - Device Ordered VTE Drug Contraindication: Treatment Not Indicated
[2022-04-09] MEDS: Albuterol/Iprat 2.5/0.5MG 3 ML AMPUL.NEB INHALE ×3 (07:36→19:06)
[2022-04-09] MEDS: Fluticasone/Vilanterol 200/25 BLST.W.DEV 1 PUFF INHALE (07:41)
[2022-04-09] MEDS: ondansetron HCL 4 MG/2 ML VIAL IVPUSH (09:05)
[2022-04-09] MEDS: Simethicone 80 MG TAB.CHEW PO ×2 (09:15→20:51)
[2022-04-09] MEDS: Metoprolol Succinate ER 25 MG TAB.ER.24H PO (09:15)
[2022-04-09] MEDS: Sucralfate 1 GM TABLET PO ×2 (09:15→20:39)
[2022-04-09] MEDS: Doxycycline Monohydrate 100 MG CAPSULE PO (09:15)
[2022-04-09] MEDS: 0.9 % Sodium Chloride Flush 3 ML SYRINGE IVFLUSH (09:16)
--- NOTE | 2022-04-09 10:21 | HO.PM.IMPN ---
Subjective Subjective Date of Service: 04/09/22 Interval History: Resting comfortably complaining of persistent abdominal pain received IV Dilaudid with good pain relief, denies nausea vomiting, had a small bowel movement, denies fever, no chills, no headache, no cough no sputum production, no urinary symptoms. Review of Systems Review of Systems: Yes all other systems are reviewed and are negative Physical Exam Vital Signs: Vital Signs: Last Vital Signs Temp 97.2 F 04/09/22 07:45 Pulse 86 04/09/22 07:45 Resp 18 04/09/22 07:45 BP 121/69 04/09/22 07:45 Pulse Ox 100 04/09/22 07:45 O2 Del Method 04/09/22 03:54 BMI result Body Mass Index 27.3 Const: Other: General resting comfortably in no acute distress. anicteric sclera Neck supple no JVD. CVS regular rate rhythm, Respiratory lungs clear to auscultation, no respiratory distress, no wheeze, no rhonchi. Gastrointestinal abdomen soft, mild mid abdominal tenderness to palpation, bowel sounds audible, no guarding , no rigidity. Extremities no edema. Neuro nonfocal . Skin no rash Objective Data Active Medications Acetaminophen (Acetaminophen 325 Mg Tablet) 650 mg PO Q6H PRN PRN Reason: Pain, Mild (Pain Scale 1-3) Albuterol Sulfate (Albuterol Sulfate 90 Mcg 8 Gm Inhaler) 2 puff INHALE Q4H PRN PRN Reason: for wheezing Albuterol/Ipratropium (Albuterol/Iprat 2.5/0.5mg 3 Ml Ampul.Neb) 3 ml INHALE RQ6H WHILE AWAKE [facility] Last Admin: 04/09/22 07:36 Dose: 3 ml Documented By: MOHAN Lipase/Protease/Amylase (Lipase/Prot/Amylase 24/76/120k 1 Cap Capsule.) 1 cap PO TIDAC [facility] Last Admin: 04/09/22 08:40 Dose: Not Given Documented By: YOLANDA Non-Admin Reason: NPO Aspirin (Aspirin Enteric Coated 81 Mg Tablet.) 81 mg PO DAILY [facility] Last Admin: 04/09/22 09:15 Dose: Not Given Documented By: YOLANDA Non-Admin Reason: Patient Refused Benzonatate (Benzonatate 100 Mg Capsule) 100 mg PO TID PRN PRN Reason: Cough Doxycycline Monohydrate (Doxycycline Monohydrate 100 Mg Capsule) 100 mg PO BID [facility] Last Admin: 04/09/22 09:15 Dose: 100 mg Documented By: YOLANDA Fluticasone Propionate (Fluticasone Propionate Nasal 16 Gm [place]) 1 spray NOSTRIL-B DAILY PRN PRN Reason: Allergy Symptoms Fluticasone/Vilanterol (Fluticasone/Vilanterol 200/25 Blst.W.Dev) 1 puff INHALE RDAILY [facility] Last Admin: 04/09/22 07:41 Dose: 1 puff Documented By: MOHAN Guaifenesin (Guaifenesin La 600 Mg Tab.Er.12h) 600 mg PO Q12H PRN PRN Reason: Congestion Hydromorphone HCl (Hydromorphone Hcl 0.5 Mg/0.5 Ml Syringe) 1 mg IVPUSH Q3H PRN; Protocol PRN Reason: Pain, Severe (Pain Scale 7-10) Last Admin: 04/09/22 09:04 Dose: 1 mg Documented By: YOLANDA Dextrose/Lactated Ringer's (D5lr) 1,000 mls @ 125 mls/hr IVCONT .Q8H [facility] Last Admin: 04/09/22 09:06 Dose: 125 mls/hr Documented By: YOLANDA Lorazepam (Lorazepam 2 Mg/Ml Vial) 0.5 mg IVPUSH Q6H PRN PRN Reason: Anxiety Last Admin: 04/09/22 09:05 Dose: 0.5 mg Documented By: YOLANDA Metoprolol Succinate (Metoprolol Succinate Er 25 Mg Tab.Er.24h) 25 mg PO DAILY [facility]; Protocol Last Admin: 04/09/22 09:15 Dose: 25 mg Documented By: YOLANDA Multivitamins/Vitamin C (Multivitamin Tablet) 1 tab PO DAILY [facility] Last Admin: 04/09/22 09:16 Dose: Not Given Documented By: YOLANDA Non-Admin Reason: Patient Refused Omeprazole (Omeprazole 20 Mg Capsule.) 20 mg PO DAILY@0630 [facility] Last Admin: 04/09/22 05:43 Dose: 20 mg Documented By: SHAR Ondansetron HCl (Ondansetron Hcl 4 Mg/2 Ml Vial) 4 mg IVPUSH QID PRN PRN Reason: Nausea Last Admin: 04/09/22 09:05 Dose: 4 mg Documented By: YOLANDA Pharmacy Consult (Consult Rx Perform Med Rec) 1 each MISCELLANE ONCE PRN PRN Reason: Consult order Prednisone (Prednisone 10 Mg Tablet) 10 mg PO BIDWM [facility] Last Admin: 04/09/22 08:41 Dose: Not Given Documented By: YOLANDA Non-Admin Reason: NPO Simethicone (Simethicone 80 Mg Tab.Chew) 80 mg PO QIDWMHS PRN PRN Reason: Gas Last Admin: 04/09/22 09:15 Dose: 80 mg Documented By: YOLANDA Sodium Chloride (0.9 % Sodium Chloride Flush 3 Ml Syringe) 3 ml IVFLUSH QSHIFT [facility] Last Admin: 04/09/22 09:16 Dose: 3 ml Documented By: YOLANDA Sucralfate (Sucralfate 1 Gm Tablet) 1 gm PO BID [facility] Last Admin: 04/09/22 09:15 Dose: 1 gm Documented By: YOLANDA Vitamin D (Cholecalciferol (Vitamin D3) 25 Mcg Tablet) 125 mcg PO DAILY [facility] Zolpidem Tartrate (Zolpidem Tartrate 5 Mg Tablet) 5 mg PO BEDTIME PRN PRN Reason: Insomnia Labs 04/09/22 05:00 04/09/22 05:00 Labs: Laboratory Results - last 24 hr 04/09/22 04/09/22 05:00 05:00 MCV 98.6 H MCH 32.1 MCHC 32.5 RDW 13.6 Plt Count 195 MPV 9.1 L Immature Gran % (Auto) 0.6 H Neut % (Auto) 58.9 Lymph % (Auto) 27.5 [place] % (Auto) 11.3 H Eos % (Auto) 1.5 Baso % (Auto) 0.2 Lymph # (Auto) 1.5 [place] # (Auto) 0.6 Eos # (Auto) 0.1 Baso # (Auto) 0.0 Abs Immat Gran (auto) 0.03 Absolute Neuts (auto) 3.1 Absolute Nucleated RBC 0.000 Nucleated RBC % (auto) 0.0 Anion Gap 12 Estim Creat Clear Calc 63.8 Estimated GFR > 60 Random Glucose 109 Calcium 8.1 L D Microbiology Microbiology Results: Microbiology 04/08/22 04:32 Blood Culture - Preliminary Blood - Venous Prelim: GPC Gram Stain only 04/08/22 04:32 Blood Culture - Preliminary Blood - Venous No growth after 24 hours. Assessment and Plan (1) SBO (small bowel obstruction): Status: Acute (2) Bronchitis: Status: Acute Plan 71-year-old female with PMH significant for colon cancer with colectomy, vaginal cancer, interstitial lung disease, hx of SBO, who presetned to the ED with complaints of severe 10/10 abdominal pain lower abdomen associated with bloody stool.? Workup and imaging were consistent partial small-bowel obstruction due to adhesions.? Pt admitted by General Surgery for management of SBO. Hospital consult for medical management. Pt has no acute complaints outside of those relating to SBO. SBO NG fell off, patient is NPO no further bouts of vomiting, complaining of abdominal discomfort passing flatus, further treatment plan as per General surgery Interstitial lung disease oxygenation stable 100% on room air continue home inhalers Acute bronchitis follows with advertising solicitor Dr. Loja last seen on 04/02/2022 for cough and worsening SOB, and was started on prednisone 10 mg b.i.d. x 10 days and doxycycline 100 mg b.i.d. times 10 days for acute bronchitis Clinically patient appears stable will DC prednisone Gram-positive cocci bacteremia questions source, no skin infection, afebrile, normal WBC count, CT abdomen showed multiple fluid-filled dilated loops of small bowel with transition point in the pelvis suspicious for small bowel obstruction intrahepatic and extrahepatic biliary ductal dilatation likely physiology goal due to prior cholecystectomy, no urinary symptoms, will DC doxycycline and place patient on vancomycin follow final blood culture report check urinalysis. DVT prophylaxis on compression boots Disposition as per General surgery. Time Spent With Patient Time: Total time managing care of this patient today ____ minutes. Quality Stroke Does the patient have a stroke diagnosis?: No VTE Prior VTE?: No VTE Risk Level:: Surgical - moderate VTE Device Contraindication: N/A - Device Ordered VTE Drug Contraindication: Treatment Not Indicated
[2022-04-09] MEDS: vancomycin HCL 1,000 MG, vancomycin HCL 750 MG in 0.9 % Sodium Chloride 500 ML 267.5 MG IV (12:15)
--- NOTE | 2022-04-09 12:24 | MHC.CM.PN ---
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 PT VERIFIES PCP IS [facility]IFF VELA, [facility]ER VACC X2, HCP ON FILE IS LEOLA MENDEZ HOWEVER PT HAS CHANGED IT TO HER SON REJI GOSSKarl [phone].
--- NOTE | 2022-04-09 12:33 | PHA.PROG ---
Admission Date/Time: April 08, 2022 08:13 Indication: Bacteremia Weight in k kg Adjusted body weight in K.2 kg [place] body weight in K.1 kg Obesity Dosing Indication % IBW: 135% Serum Creatinine - Last 168 Hours 04/08/22 04/09/22 04:32 05:00 Creatinine 0.86 0.71 Estimated CrCl and GFR - Last 168 Hours 04/08/22 04/09/22 04:32 05:00 Estim Creat Clear Calc 52.6 63.8 Estimated GFR > 60 > 60 Vancomycin Loading Dose: 1750 mg (25 mg /kg) Current Vancomycin Dosing Regimen: 1250 mg Q24H Date and Time for next Vancomycin Level to be drawn: 04/12 @ 1000 Pharmacist Comments on Vancomycin Plan: Patient is consider obese with %IBW > 130% Patient received an adequate load dose vanco 1750 mg on 04/09 @ 1215 Maintenance dose schedule to start 04/10 @ 1200. expected AUC 523 with a trough of 15.5. Trough to be drawn prior to 4th dose Pharmacy to monitor renal fucntion daily. Rozina Figueroa PharmD Vancomycin dosing will take advantage of [employer] as a clinical decision support tool that uses Bayesian modeling to calculate individual patient's pharmacokinetic parameters and forecast the patient's drug concentration time course with the target goal AUC 24 range of 400 - 600 mg/L/hr.
[2022-04-09 15:29] LABS: Appearance Urine Clear; Color Urine Dark Yellow; Glucose Urine UA Negative (Negative); Leukocyte Esterase Urine Negative (Negative); Nitrite Urine Negative (Negative); PH 5.5 (5.0-9.0); Specific Gravity - Urine >= 1.030 (1.005-1.025); UMIC TRIGGER UACC YES; Urine Blood Small (1+) (Negative); Urine Ketones Negative (Negative); Urine Protein Trace mg/dL (Neg-Trace)
[2022-04-09 15:31] LABS: Bacteria Urine None Seen (None Seen); Hyaline Casts Urine 0-2 /LPF (0-2); UACC Culture Trigger YES
[2022-04-10] VITALS (7 sets, daily range): BP systolic 121–146; BP diastolic 65–78; PULSE 70–94; RESP 18–20; TEMP 36.3–36.6; O2SAT 94–100
[2022-04-10] MEDS: HYDROmorphone HCl 0.5 MG/0.5 ML SYRINGE 1 MG IVPUSH ×6 (01:41→21:55)
[2022-04-10] MEDS: LORazepam 2 MG/ML VIAL 0.5 MG IVPUSH ×4 (02:07→21:55)
[2022-04-10] MEDS: Dextrose 5 % and Lactated Ring 1,000 ML 125 ML IVCONT (04:58)
[2022-04-10] MEDS: Omeprazole 20 MG CAPSULE.DR PO (06:33)
[2022-04-10 06:35] LABS: Creatinine Clr Calc Pharmacy 64.7; Estimated Glomerular Filt Rate > 60
[2022-04-10] MEDS: Fluticasone/Vilanterol 200/25 BLST.W.DEV 1 PUFF INHALE (07:52)
[2022-04-10] MEDS: Albuterol/Iprat 2.5/0.5MG 3 ML AMPUL.NEB INHALE ×3 (07:52→19:31)
--- NOTE | 2022-04-10 07:52 | PM.PNGS ---
Subjective Subjective Date of Service: 04/10/22 Interval history: Feels ok this morning. Tolerating clear liquids. Occasionally has some gas pains but relieved with gas-x. Passing flatus and now having small, soft BMs. Does not feel quite ready for solids yet. Physical Exam Vital Signs: Vital Signs: Last Vital Signs Temp 97.8 F 04/10/22 04:00 Pulse 70 04/10/22 04:00 Resp 18 04/10/22 04:00 BP 121/65 04/10/22 04:00 Pulse Ox 98 04/10/22 04:00 O2 Del Method 04/10/22 04:00 BMI result Body Mass Index 27.3 Const: General: comfortable, no acute distress and alert Orientation/consciousness: patient oriented x3 Resp: Effort & Inspection: normal respiratory effort GI: Inspection: No distended Palpation (GI): Soft to palpation, Tenderness to palpation present (GI) (mild diffuse), no guarding and not rigid Percussion: Yes normal to percussion Skin: General skin exam: no rashes or lesions noted Neuro: General: patient oriented x3 and moves all extremities Objective Data Active Medications Acetaminophen (Acetaminophen 325 Mg Tablet) 650 mg PO Q6H PRN PRN Reason: Pain, Mild (Pain Scale 1-3) Albuterol Sulfate (Albuterol Sulfate 90 Mcg 8 Gm Inhaler) 2 puff INHALE Q4H PRN PRN Reason: for wheezing Albuterol/Ipratropium (Albuterol/Iprat 2.5/0.5mg 3 Ml Ampul.Neb) 3 ml INHALE RQ6H WHILE AWAKE [facility] Last Admin: 04/10/22 07:52 Dose: 3 ml Documented By: TATYANA Lipase/Protease/Amylase (Lipase/Prot/Amylase 24/76/120k 1 Cap Capsule.) 1 cap PO TIDAC [facility] Last Admin: 04/09/22 17:49 Dose: Not Given Documented By: ROSALBA Non-Admin Reason: NPO Aspirin (Aspirin Enteric Coated 81 Mg Tablet.) 81 mg PO DAILY [facility] Last Admin: 04/09/22 09:15 Dose: Not Given Documented By: YOLANDA Non-Admin Reason: Patient Refused Benzonatate (Benzonatate 100 Mg Capsule) 100 mg PO TID PRN PRN Reason: Cough Fluticasone Propionate (Fluticasone Propionate Nasal 16 Gm [place]) 1 spray NOSTRIL-B DAILY PRN PRN Reason: Allergy Symptoms Fluticasone/Vilanterol (Fluticasone/Vilanterol 200/25 Blst.W.Dev) 1 puff INHALE RDAILY [facility] Last Admin: 04/09/22 07:41 Dose: 1 puff Documented By: MOHAN Guaifenesin (Guaifenesin La 600 Mg Tab.Er.12h) 600 mg PO Q12H PRN PRN Reason: Congestion Hydromorphone HCl (Hydromorphone Hcl 0.5 Mg/0.5 Ml Syringe) 1 mg IVPUSH Q3H PRN; Protocol PRN Reason: Pain, Severe (Pain Scale 7-10) Last Admin: 04/10/22 06:50 Dose: 1 mg Documented By: CHYNA Dextrose/Lactated Ringer's (D5lr) 1,000 mls @ 125 mls/hr IVCONT .Q8H [facility] Last Admin: 04/10/22 04:58 Dose: 125 mls/hr Documented By: CHYNA Vancomycin HCl 1,250 mg/ (Sodium Chloride) 250 mls @ 166.667 mls/hr IV Q24H [facility] Lorazepam (Lorazepam 2 Mg/Ml Vial) 0.5 mg IVPUSH Q6H PRN PRN Reason: Anxiety Last Admin: 04/10/22 02:07 Dose: 0.5 mg Documented By: CHYNA Metoprolol Succinate (Metoprolol Succinate Er 25 Mg Tab.Er.24h) 25 mg PO DAILY [facility]; Protocol Last Admin: 04/09/22 09:15 Dose: 25 mg Documented By: YOLANDA Multivitamins/Vitamin C (Multivitamin Tablet) 1 tab PO DAILY [facility] Last Admin: 04/09/22 09:16 Dose: Not Given Documented By: YOLANDA Non-Admin Reason: Patient Refused Omeprazole (Omeprazole 20 Mg [place].) 20 mg PO DAILY@0630 [facility] Last Admin: 04/10/22 06:33 Dose: 20 mg Documented By: CHYNA Ondansetron HCl (Ondansetron Hcl 4 Mg/2 Ml Vial) 4 mg IVPUSH QID PRN PRN Reason: Nausea Last Admin: 04/09/22 09:05 Dose: 4 mg Documented By: YOLANDA Pharmacy Consult (Consult Rx Perform Med Rec) 1 each MISCELLANE ONCE PRN PRN Reason: Consult order Pharmacy Consult (Consult Rx Vancomycin Dosing) 1 each MISCELLANE DAILY PRN PRN Reason: Consult order Simethicone (Simethicone 80 Mg Tab.Chew) 80 mg PO QIDWMHS PRN PRN Reason: Gas Last Admin: 04/09/22 20:51 Dose: 80 mg Documented By: ROSALBA Sodium Chloride (0.9 % Sodium Chloride Flush 3 Ml Syringe) 3 ml IVFLUSH QSHIFT [facility] Last Admin: 04/09/22 23:50 Dose: Not Given Documented By: CHYNA Non-Admin Reason: IV Running Sucralfate (Sucralfate 1 Gm Tablet) 1 gm PO BID [facility] Last Admin: 04/09/22 20:39 Dose: 1 gm Documented By: ROSALBA Vitamin D (Cholecalciferol (Vitamin D3) 25 Mcg Tablet) 125 mcg PO DAILY [facility] Last Admin: 04/09/22 10:51 Dose: Not Given Documented By: YOLANDA Non-Admin Reason: NPO Zolpidem Tartrate (Zolpidem Tartrate 5 Mg Tablet) 5 mg PO BEDTIME PRN PRN Reason: Insomnia Labs 04/09/22 05:00 04/10/22 04:59 Labs: Laboratory Results - last 24 hr 04/09/22 04/10/22 15:08 04:59 Estim Creat Clear Calc 64.7 Estimated GFR > 60 Urine Color Dark Yellow Urine Appearance Clear Urine pH 5.5 Ur Specific [place] >= 1.030 H Urine Protein Trace Urine Glucose (UA) Negative Urine Ketones Negative Urine Blood Small (1+) H Urine Nitrite Negative Ur Leukocyte Esterase Negative Urine RBC 11-20 H Urine WBC 6-10 H Ur Squamous Epith Cells 3-5 Urine Bacteria None Seen Hyaline Casts 0-2 Microbiology Microbiology Results: Microbiology 04/08/22 04:32 Blood Culture - Preliminary Blood - Venous No growth after 48 hours. 04/08/22 04:32 Blood Culture - Preliminary Blood - Venous Prelim: GPC Gram Stain only Procedures Date of Service Date of Service: 04/10/22 Progress Note: A&P Assessment and plan (1) SBO (small bowel obstruction): Status: Acute (2) Bronchitis: Status: Acute Plan Patient returns with a recurrence small-bowel obstruction. NGT came out over the weekend. Started on clears yesterday which she is tolerating and now has evidence of return of GI function. Will advance to full liquids today. Encouraged OOB/ambulation. Advance diet as tolerated. Time Spent With Patient Time: Total time managing care of this patient today ____ minutes. Quality Stroke Does the patient have a stroke diagnosis?: No VTE Prior VTE?: No VTE Risk Level:: Surgical - moderate VTE Device Contraindication: N/A - Device Ordered VTE Drug Contraindication: Treatment Not Indicated
[2022-04-10] MEDS: Sucralfate 1 GM TABLET PO ×2 (08:07→21:55)
[2022-04-10] MEDS: Lipase/Prot/Amylase 24/76/120K 1 CAP CAPSULE.DR PO ×3 (08:07→17:19)
[2022-04-10] MEDS: Cholecalciferol (Vitamin D3) 25 MCG TABLET 125 MCG PO (08:08)
[2022-04-10] MEDS: Metoprolol Succinate ER 25 MG TAB.ER.24H PO (08:08)
[2022-04-10] MEDS: Multivitamin TABLET 1 TAB PO (08:09)
[2022-04-10] MEDS: 0.9 % Sodium Chloride Flush 3 ML SYRINGE IVFLUSH ×2 (08:09→15:18)
[2022-04-10] MEDS: Simethicone 80 MG TAB.CHEW PO ×2 (08:18→17:19)
--- NOTE | 2022-04-10 09:06 | HE.PHANOTE ---
Vancomycin Dosing Patient's renal function is stable. Continue current regimen, vanco 1250 mg Q24H. Level scheduled for 04/12 @ 1000. Rozina Figueroa, HarmeetD
[2022-04-10] MEDS: vancomycin HCL 1,250 MG in 0.9 % Sodium Chloride 250 ML 166.67 MG IV (11:49)
--- NOTE | 2022-04-10 13:19 | HO.PM.IMPN ---
Subjective Subjective Date of Service: 04/10/22 Interval History: Overall feeling better tolerating full liquid diet, no nausea, no vomiting, complaining of gas pain, moving bowel, complaining of occasional cough, no fevers, no chills, no shortness of breath, no acute issues overnight. Review of Systems Review of Systems: Yes all other systems are reviewed and are negative Physical Exam Vital Signs: Vital Signs: Last Vital Signs Temp 97.9 F 04/10/22 08:00 Pulse 92 04/10/22 08:00 Resp 18 04/10/22 08:00 BP 139/78 04/10/22 08:00 Pulse Ox 97 04/10/22 08:00 O2 Del Method 04/10/22 08:00 BMI result Body Mass Index 27.3 Const: Other: General? resting c omfortably in no a cute distress. ani cteric sclera? Nec k supple no JVD. C VS? regular rate r hythm, Respiratory lungs clear to au scultation, no res piratory distress, no wheeze, no rho nchi. Gastrointest inal abdomen soft, no abdominal tend erness , bowel george nds audible, no gu arding , no rigidi ty. Extremities no edema. Neuro nonf ocal . Skin no shirin h Objective Data Active Medications Acetaminophen (Acetaminophen 325 Mg Tablet) 650 mg PO Q6H PRN PRN Reason: Pain, Mild (Pain Scale 1-3) Albuterol Sulfate (Albuterol Sulfate 90 Mcg 8 Gm Inhaler) 2 puff INHALE Q4H PRN PRN Reason: for wheezing Albuterol/Ipratropium (Albuterol/Iprat 2.5/0.5mg 3 Ml Ampul.Neb) 3 ml INHALE RQ6H WHILE AWAKE [facility] Last Admin: 04/10/22 07:52 Dose: 3 ml Documented By: TATYANA Lipase/Protease/Amylase (Lipase/Prot/Amylase 24/76/120k 1 Cap Capsule.) 1 cap PO TIDAC [facility] Last Admin: 04/10/22 11:51 Dose: 1 cap Documented By: ROSALBA Aspirin (Aspirin Enteric Coated 81 Mg Tablet.) 81 mg PO DAILY [facility] Last Admin: 04/10/22 08:09 Dose: Not Given Documented By: YOLANDA Non-Admin Reason: Patient Refused Benzonatate (Benzonatate 100 Mg Capsule) 100 mg PO TID PRN PRN Reason: Cough Fluticasone Propionate (Fluticasone Propionate Nasal 16 Gm [place]) 1 spray NOSTRIL-B DAILY PRN PRN Reason: Allergy Symptoms Fluticasone/Vilanterol (Fluticasone/Vilanterol 200/25 Blst.W.Dev) 1 puff INHALE RDAILY [facility] Last Admin: 04/10/22 07:52 Dose: 1 puff Documented By: TATYANA Guaifenesin (Guaifenesin La 600 Mg Tab.Er.12h) 600 mg PO Q12H PRN PRN Reason: Congestion Hydromorphone HCl (Hydromorphone Hcl 0.5 Mg/0.5 Ml Syringe) 1 mg IVPUSH Q3H PRN; Protocol PRN Reason: Pain, Severe (Pain Scale 7-10) Last Admin: 04/10/22 12:00 Dose: 1 mg Documented By: ROSALBA Dextrose/Lactated Ringer's (D5lr) 1,000 mls @ 125 mls/hr IVCONT .Q8H [facility] Last Admin: 04/10/22 04:58 Dose: 125 mls/hr Documented By: CHYNA Vancomycin HCl 1,250 mg/ (Sodium Chloride) 250 mls @ 166.667 mls/hr IV Q24H [facility] Last Admin: 04/10/22 11:49 Dose: 166.67 mls/hr Documented By: ROSALBA Lorazepam (Lorazepam 2 Mg/Ml Vial) 0.5 mg IVPUSH Q6H PRN PRN Reason: Anxiety Last Admin: 04/10/22 08:18 Dose: 0.5 mg Documented By: YOLANDA Metoprolol Succinate (Metoprolol Succinate Er 25 Mg Tab.Er.24h) 25 mg PO DAILY [facility]; Protocol Last Admin: 04/10/22 08:08 Dose: 25 mg Documented By: YOLANDA Multivitamins/Vitamin C (Multivitamin Tablet) 1 tab PO DAILY [facility] Last Admin: 04/10/22 08:09 Dose: 1 tab Documented By: YOLANDA Omeprazole (Omeprazole 20 Mg Capsule.) 20 mg PO DAILY@0630 [facility] Last Admin: 04/10/22 06:33 Dose: 20 mg Documented By: CHYNA Ondansetron HCl (Ondansetron Hcl 4 Mg/2 Ml Vial) 4 mg IVPUSH QID PRN PRN Reason: Nausea Last Admin: 04/09/22 09:05 Dose: 4 mg Documented By: YOLANDA Pharmacy Consult (Consult Rx Perform Med Rec) 1 each MISCELLANE ONCE PRN PRN Reason: Consult order Pharmacy Consult (Consult Rx Vancomycin Dosing) 1 each MISCELLANE DAILY PRN PRN Reason: Consult order Simethicone (Simethicone 80 Mg Tab.Chew) 80 mg PO QIDWMHS PRN PRN Reason: Gas Last Admin: 04/10/22 08:18 Dose: 80 mg Documented By: YOLANDA Sodium Chloride (0.9 % Sodium Chloride Flush 3 Ml Syringe) 3 ml IVFLUSH QSHIFT [facility] Last Admin: 04/10/22 08:09 Dose: 3 ml Documented By: YOLANDA Sucralfate (Sucralfate 1 Gm Tablet) 1 gm PO BID [facility] Last Admin: 04/10/22 08:07 Dose: 1 gm Documented By: YOLANDA Vitamin D (Cholecalciferol (Vitamin D3) 25 Mcg Tablet) 125 mcg PO DAILY [facility] Last Admin: 04/10/22 08:08 Dose: 125 mcg Documented By: YOLANDA Zolpidem Tartrate (Zolpidem Tartrate 5 Mg Tablet) 5 mg PO BEDTIME PRN PRN Reason: Insomnia Labs 04/09/22 05:00 04/10/22 04:59 Labs: Laboratory Results - last 24 hr 04/09/22 04/10/22 15:08 04:59 Estim Creat Clear Calc 64.7 Estimated GFR > 60 Urine Color Dark Yellow Urine Appearance Clear Urine pH 5.5 Ur Specific [place] >= 1.030 H Urine Protein Trace Urine Glucose (UA) Negative Urine Ketones Negative Urine Blood Small (1+) H Urine Nitrite Negative Ur Leukocyte Esterase Negative Urine RBC 11-20 H Urine WBC 6-10 H Ur Squamous Epith Cells 3-5 Urine Bacteria None Seen Hyaline Casts 0-2 Microbiology Microbiology Results: Microbiology 04/08/22 04:32 Blood Culture - Final Blood - Venous Coag negative Staphylococcus 04/09/22 Unknown Urine Culture - Final Urine clean catch - Clean Catch Midstream 04/08/22 04:32 Blood Culture - Preliminary Blood - Venous No growth after 48 hours. Assessment and Plan (1) SBO (small bowel obstruction): Status: Acute (2) Bronchitis: Status: Acute Plan 71-year-old female with PMH significant for colon cancer with colectomy, vaginal cancer, interstitial lung disease, hx of SBO, who presetned to the ED with complaints of severe 10/10 abdominal pain lower abdomen associated with bloody stool.? Workup and imaging were consistent partial small-bowel obstruction due to adhesions.? Pt admitted by General Surgery for management of SBO. Hospital consult for medical management. Pt has no acute complaints outside of those relating to SBO. SBO responding to conservative management, placed on full liquid diet as per General surgery, will DC IV fluids. Interstitial lung disease oxygenation stable on room air continue home inhalers Acute bronchitis follows with graphic art designer Dr. Loja last seen on 04/02/2022 for cough and worsening SOB, and was started on prednisone 10 mg b.i.d. x 10 days and doxycycline 100 mg b.i.d. times 10 days for acute bronchitis Clinically patient appears stable , will recommend to finish 10 day course of antibiotic Gram-positive cocci bacteremia final sensitive T showed coagulase-negative Staph will DC IV vancomycin, place back on doxycycline 100 b.i.d. for total 10 day course of treatment DVT prophylaxis on compression boots Disposition as per General surgery. Time Spent With Patient Time: Total time managing care of this patient today ____ minutes. Quality Stroke Does the patient have a stroke diagnosis?: No VTE Prior VTE?: No VTE Risk Level:: Surgical - moderate VTE Device Contraindication: N/A - Device Ordered VTE Drug Contraindication: Treatment Not Indicated
[2022-04-10] MEDS: Doxycycline Monohydrate 100 MG CAPSULE PO (17:19)
[2022-04-10] MEDS: ondansetron HCL 4 MG/2 ML VIAL IVPUSH (18:41)
[2022-04-10] MEDS: Fluticasone Propionate Nasal 16 GM SPRAY 1 SPRAY NOSTRIL-B (19:47)
--- NOTE | 2022-04-10 22:20 | PC.NURSE ---
Pt states she is feeling much better than yesterday, however she didnt not have a bm today. She is eating 15-25% of her meals. But complaining of gas and bloating after each meal. but it subsides w/ prn gas-x n time. she had one episode of Nausea and small emesis. Resolved w/ Zofran. Pt still Positive for bowel sounds in all for quadrants.
[2022-04-11] VITALS (7 sets, daily range): BP systolic 124–149; BP diastolic 76–88; PULSE 85–103; RESP 16–20; TEMP 36.4; O2SAT 93–98
[2022-04-11] MEDS: 0.9 % Sodium Chloride Flush 3 ML SYRINGE IVFLUSH ×4 (00:33→23:24)
[2022-04-11] MEDS: HYDROmorphone HCl 0.5 MG/0.5 ML SYRINGE 1 MG IVPUSH ×5 (01:05→19:49)
[2022-04-11] MEDS: Simethicone 80 MG TAB.CHEW PO ×2 (04:23→11:02)
[2022-04-11] MEDS: LORazepam 2 MG/ML VIAL 0.5 MG IVPUSH ×3 (04:23→17:58)
[2022-04-11 06:28] LABS: Hematocrit 29.1 % (37.0-47.0); Hemoglobin 9.3 g/dl (12.0-16.0); Mean Corpuscular Hemoglobin 32.3 pg (27.0-33.0); Platelet Count 175 X10*3/uL (160-400); Red Blood Count 2.88 X10*6/uL (4.20-5.50)
[2022-04-11] MEDS: Doxycycline Monohydrate 100 MG CAPSULE PO ×2 (06:32→17:47)
[2022-04-11] MEDS: Omeprazole 20 MG CAPSULE.DR PO (06:32)
[2022-04-11] MEDS: Albuterol/Iprat 2.5/0.5MG 3 ML AMPUL.NEB INHALE ×3 (07:27→19:53)
[2022-04-11] MEDS: Fluticasone/Vilanterol 200/25 BLST.W.DEV 1 PUFF INHALE (07:41)
[2022-04-11] MEDS: Lipase/Prot/Amylase 24/76/120K 1 CAP CAPSULE.DR PO ×3 (08:31→17:12)
[2022-04-11] MEDS: Cholecalciferol (Vitamin D3) 25 MCG TABLET 125 MCG PO (08:31)
[2022-04-11] MEDS: Multivitamin TABLET 1 TAB PO (08:31)
[2022-04-11] MEDS: Sucralfate 1 GM TABLET PO ×2 (08:31→19:49)
[2022-04-11] MEDS: Metoprolol Succinate ER 25 MG TAB.ER.24H PO (08:31)
--- NOTE | 2022-04-11 08:42 | P.PNGS_ITS ---
Subjective Subjective Date of Service: 04/11/22 <Vaishali Rodriguez PA-C - Last Filed: 04/11/22 08:46> 04/11/22 <Maximo Gill MD - Last Filed: 04/11/22 08:55> Interval history: Had some nausea with full liquids but was able to tolerate later on. Reports less pain this morning, continues to pass flatus and having small bowel movements. Does not feel quite ready for food. <Vaishali Rodriguez PA-C - Last Filed: 04/11/22 08:46> Physical Exam Vital Signs: Vital Signs: Last Vital Signs Temp 97.6 F 04/11/22 07:44 Pulse 85 04/11/22 07:44 Resp 18 04/11/22 07:44 BP 127/80 04/11/22 07:44 Pulse Ox 96 04/11/22 07:44 O2 Del Method 04/11/22 07:44 BMI result Body Mass Index 27.3 <Vaishali Rodriguez PA-C - Last Filed: 04/11/22 08:46> Const: General: comfortable, no acute distress and alert <Vaishali Rodriguez PA-C - Last Filed: 04/11/22 08:46> Orientation/consciousness: patient oriented x3 <Vaishali Rodriguez PA-C - Last Filed: 04/11/22 08:46> Resp: Effort & Inspection: normal respiratory effort <Vaishali Rodriguez PA-C - Last Filed: 04/11/22 08:46> GI: Inspection: No distended <Vaishali Rodriguez PA-C - Last Filed: 04/11/22 08:46> Palpation (GI): Soft to palpation, nontender, no guarding and not rigid <Vaishali Rodriguez PA-C - Last Filed: 04/11/22 08:46> Percussion: Yes normal to percussion <RONN Hernandez Last Filed: 04/11/22 08:46> Skin: General skin exam: no rashes or lesions noted <Vaishali Rodriguez PA-C - Last Filed: 04/11/22 08:46> Neuro: General: patient oriented x3 <Vaishali Rodriguez PA-C - Last Filed: 04/11/22 08:46> Objective Data Active Medications Acetaminophen (Acetaminophen 325 Mg Tablet) 650 mg PO Q6H PRN PRN Reason: Pain, Mild (Pain Scale 1-3) Albuterol Sulfate (Albuterol Sulfate 90 Mcg 8 Gm Inhaler) 2 puff INHALE Q4H PRN PRN Reason: for wheezing Albuterol/Ipratropium (Albuterol/Iprat 2.5/0.5mg 3 Ml Ampul.Neb) 3 ml INHALE RQ6H WHILE AWAKE [facility] Last Admin: 04/11/22 07:27 Dose: 3 ml Documented By: DALIA Lipase/Protease/Amylase (Lipase/Prot/Amylase 24/76/120k 1 Cap Capsule.) 1 cap PO TIDAC [facility] Last Admin: 04/11/22 08:31 Dose: 1 cap Documented By: YOLANDA Aspirin (Aspirin Enteric Coated 81 Mg Tablet.) 81 mg PO DAILY [facility] Last Admin: 04/11/22 08:34 Dose: Not Given Documented By: YOLANDA Non-Admin Reason: Patient Refused Benzonatate (Benzonatate 100 Mg Capsule) 100 mg PO TID PRN PRN Reason: Cough Doxycycline Monohydrate (Doxycycline Monohydrate 100 Mg Capsule) 100 mg PO Q12H [facility] Last Admin: 04/11/22 06:32 Dose: 100 mg Documented By: CHYNA Fluticasone Propionate (Fluticasone Propionate Nasal 16 Gm [place]) 1 spray NOSTRIL-B DAILY PRN PRN Reason: Allergy Symptoms Last Admin: 04/10/22 19:47 Dose: 1 spray Documented By: ROSALBA Fluticasone/Vilanterol (Fluticasone/Vilanterol 200/25 Blst.W.Dev) 1 puff INHALE RDAILY [facility] Last Admin: 04/11/22 07:41 Dose: 1 puff Documented By: DALIA Guaifenesin (Guaifenesin [place] 600 Mg Tab.Er.12h) 600 mg PO Q12H PRN PRN Reason: Congestion Hydromorphone HCl (Hydromorphone Hcl 0.5 Mg/0.5 Ml Syringe) 1 mg IVPUSH Q3H PRN; Protocol PRN Reason: Pain, Severe (Pain Scale 7-10) Last Admin: 04/11/22 06:41 Dose: 1 mg Documented By: CHYNA Lorazepam (Lorazepam 2 Mg/Ml Vial) 0.5 mg IVPUSH Q6H PRN PRN Reason: Anxiety Last Admin: 04/11/22 04:23 Dose: 0.5 mg Documented By: CHYNA Metoprolol Succinate (Metoprolol Succinate Er 25 Mg Tab.Er.24h) 25 mg PO DAILY [facility]; Protocol Last Admin: 04/11/22 08:31 Dose: 25 mg Documented By: YOLANDA Multivitamins/Vitamin C (Multivitamin Tablet) 1 tab PO DAILY [facility] Last Admin: 04/11/22 08:31 Dose: 1 tab Documented By: YOLANDA Omeprazole (Omeprazole 20 Mg Capsule.Dr) 20 mg PO DAILY@0630 [facility] Last Admin: 04/11/22 06:32 Dose: 20 mg Documented By: CHYNA Ondansetron HCl (Ondansetron Hcl 4 Mg/2 Ml Vial) 4 mg IVPUSH QID PRN PRN Reason: Nausea Last Admin: 04/10/22 18:41 Dose: 4 mg Documented By: ROSALBA Pharmacy Consult (Consult Rx Perform Med Rec) 1 each MISCELLANE ONCE PRN PRN Reason: Consult order Simethicone (Simethicone 80 Mg Tab.Chew) 80 mg PO QIDWMHS PRN PRN Reason: Gas Last Admin: 04/11/22 04:23 Dose: 80 mg Documented By: CHYNA Sodium Chloride (0.9 % Sodium Chloride Flush 3 Ml Syringe) 3 ml IVFLUSH QSHIFT [facility] Last Admin: 04/11/22 08:33 Dose: 3 ml Documented By: YOLANDA Sucralfate (Sucralfate 1 Gm Tablet) 1 gm PO BID [facility] Last Admin: 04/11/22 08:31 Dose: 1 gm Documented By: YOLANDA Vitamin D (Cholecalciferol (Vitamin D3) 25 Mcg Tablet) 125 mcg PO DAILY [facility] Last Admin: 04/11/22 08:31 Dose: 125 mcg Documented By: YOLANDA Zolpidem Tartrate (Zolpidem Tartrate 5 Mg Tablet) 5 mg PO BEDTIME PRN PRN Reason: Insomnia <Vaishali Michael, PA-C - Last Filed: 04/11/22 08:46> Labs CBC & Chem 7: 04/11/22 05:07 04/10/22 04:59 <Vaishali Rodriguez PA-C - Last Filed: 04/11/22 08:46> Labs: Laboratory Results - last 24 hr 04/11/22 05:07 MCV 101.0 H MCH 32.3 MCHC 32.0 RDW 13.0 Plt Count 175 MPV 9.0 L Absolute Nucleated RBC 0.000 Nucleated RBC % (auto) 0.0 <Vaishali Rodriguez PA-C - Last Filed: 04/11/22 08:46> Microbiology Microbiology Results: Microbiology 04/08/22 04:32 Blood Culture - Final Blood - Venous Coag negative Staphylococcus 04/09/22 Unknown Urine Culture - Final Urine clean catch - Clean Catch Midstream 04/08/22 04:32 Blood Culture - Preliminary Blood - Venous No growth after 48 hours. <Vaishali Rodriguez PA-C - Last Filed: 04/11/22 08:46> Procedures Date of Service Date of Service: 04/11/22 <Vaishali Rodriguez PA-C - Last Filed: 04/11/22 08:46> Progress Note: A&P Assessment and plan (1) SBO (small bowel obstruction): Status: Acute <RONN Hernandez Last Filed: 04/11/22 08:46> Assessment and Plan: 71 year old female admitted with recurrent SBO. Has return of GI function. Clinically appearing well. Abd benign soft, nondistended. Will continue full liquids for now and reassess later today for solid diet. <Vaishali Rodriguez PA-C - Last Filed: 04/11/22 08:46> 71 year old female admitted with recurrent SBO. Has return of GI function. Clinically appearing well. Abd benign soft, nondistended. Will continue full liquids for now and reassess later today for solid diet. Patient seen and examined. Making slow improvement and continues to pass flatus and bowel movement. Abdomen is soft and nondistended with no tympany to percussion. Small-bowel obstruction is resolving. Patient is requesting hot water with lemon juice which she feels helps her abdominal discomfort. Agree with the above assessment and plan. Continue full liquids. <Maximo Gill MD - Last Filed: 04/11/22 08:55> Time Spent With Patient Time: Total time managing care of this patient today ____ minutes. <Vaishali Rodriguez PA-C - Last Filed: 04/11/22 08:46> Quality Stroke Does the patient have a stroke diagnosis?: No <Vaishali Rodriguez PA-C - Last Filed: 04/11/22 08:46> VTE Prior VTE?: No <Vaishali Rodriguez PA-C - Last Filed: 04/11/22 08:46> VTE Risk Level:: Surgical - moderate <Vaishali Rodriguez PA-C - Last Filed: 04/11/22 08:46> VTE Device Contraindication: N/A - Device Ordered <Vaishali Rodriguez PA-C - Last Filed: 04/11/22 08:46> VTE Drug Contraindication: Treatment Not Indicated <Vaishali Rodriguez PA-C - Last Filed: 04/11/22 08:46>
[2022-04-11] MEDS: ondansetron HCL 4 MG/2 ML VIAL IVPUSH (11:02)
--- NOTE | 2022-04-11 11:48 | P.PNIM_ITS ---
Subjective Subjective Date of Service: 04/11/22 Interval History: Complaining of mild cough, tolerating full liquid diet passing flatus, moving bowels, had some nausea this morning now resolved, no fevers, no chills, no rigors remains on room air with stable oxygenation. Review of Systems Review of Systems: Yes all other systems are reviewed and are negative Physical Exam Vital Signs: Vital Signs: Last Vital Signs Temp 97.6 F 04/11/22 07:44 Pulse 85 04/11/22 07:44 Resp 18 04/11/22 07:44 BP 127/80 04/11/22 07:44 Pulse Ox 96 04/11/22 07:44 O2 Del Method 04/11/22 07:44 BMI result Body Mass Index 27.3 Const: Other: General? resting comfortably in no acute distress. anicteric sclera? Neck supple no JVD. CVS? regular rate rhythm, Respiratory lungs clear to auscultation, no respiratory distress, no wheeze, no rhonchi. Gastrointestinal abdomen soft, no abdominal tenderness , bowel sounds audible, no guarding , no rigidity. Extremities no edema. Neuro nonfocal . Skin no rash Objective Data Active Medications Acetaminophen (Acetaminophen 325 Mg Tablet) 650 mg PO Q6H PRN PRN Reason: Pain, Mild (Pain Scale 1-3) Albuterol Sulfate (Albuterol Sulfate 90 Mcg 8 Gm Inhaler) 2 puff INHALE Q4H PRN PRN Reason: for wheezing Albuterol/Ipratropium (Albuterol/Iprat 2.5/0.5mg 3 Ml Ampul.Neb) 3 ml INHALE RQ6H WHILE AWAKE [facility] Last Admin: 04/11/22 07:27 Dose: 3 ml Documented By: DALIA Lipase/Protease/Amylase (Lipase/Prot/Amylase 24/76/120k 1 Cap Capsule.) 1 cap PO TIDAC [facility] Last Admin: 04/11/22 11:02 Dose: 1 cap Documented By: YOLANDA Aspirin (Aspirin Enteric Coated 81 Mg Tablet.) 81 mg PO DAILY [facility] Last Admin: 04/11/22 08:34 Dose: Not Given Documented By: YOLANDA Non-Admin Reason: Patient Refused Benzonatate (Benzonatate 100 Mg Capsule) 100 mg PO TID PRN PRN Reason: Cough Doxycycline Monohydrate (Doxycycline Monohydrate 100 Mg Capsule) 100 mg PO Q12H [facility] Last Admin: 04/11/22 06:32 Dose: 100 mg Documented By: CHYNA Fluticasone Propionate (Fluticasone Propionate Nasal 16 Gm [place]) 1 spray NOSTRIL-B DAILY PRN PRN Reason: Allergy Symptoms Last Admin: 04/10/22 19:47 Dose: 1 spray Documented By: ROSALBA Fluticasone/Vilanterol (Fluticasone/Vilanterol 200/25 Blst.W.Dev) 1 puff INHALE RDAILY [facility] Last Admin: 04/11/22 07:41 Dose: 1 puff Documented By: DALIA Guaifenesin (Guaifenesin La 600 Mg Tab.Er.12h) 600 mg PO Q12H PRN PRN Reason: Congestion Hydromorphone HCl (Hydromorphone Hcl 0.5 Mg/0.5 Ml Syringe) 1 mg IVPUSH Q3H PRN; Protocol PRN Reason: Pain, Severe (Pain Scale 7-10) Last Admin: 04/11/22 11:02 Dose: 1 mg Documented By: YOLANDA Lorazepam (Lorazepam 2 Mg/Ml Vial) 0.5 mg IVPUSH Q6H PRN PRN Reason: Anxiety Last Admin: 04/11/22 11:02 Dose: 0.5 mg Documented By: YOLANDA Metoprolol Succinate (Metoprolol Succinate Er 25 Mg Tab.Er.24h) 25 mg PO DAILY [facility]; Protocol Last Admin: 04/11/22 08:31 Dose: 25 mg Documented By: YOLANDA Multivitamins/Vitamin C (Multivitamin Tablet) 1 tab PO DAILY [facility] Last Admin: 04/11/22 08:31 Dose: 1 tab Documented By: YOLANDA Omeprazole (Omeprazole 20 Mg Capsule.Dr) 20 mg PO DAILY@0630 [facility] Last Admin: 04/11/22 06:32 Dose: 20 mg Documented By: CHYNA Ondansetron HCl (Ondansetron Hcl 4 Mg/2 Ml Vial) 4 mg IVPUSH QID PRN PRN Reason: Nausea Last Admin: 04/11/22 11:02 Dose: 4 mg Documented By: YOLANDA Pharmacy Consult (Consult Rx Perform Med Rec) 1 each MISCELLANE ONCE PRN PRN Reason: Consult order Simethicone (Simethicone 80 Mg Tab.Chew) 80 mg PO QIDWMHS PRN PRN Reason: Gas Last Admin: 04/11/22 11:02 Dose: 80 mg Documented By: YOLANDA Sodium Chloride (0.9 % Sodium Chloride Flush 3 Ml Syringe) 3 ml IVFLUSH QSHIFT [facility] Last Admin: 04/11/22 08:33 Dose: 3 ml Documented By: YOLANDA Sucralfate (Sucralfate 1 Gm Tablet) 1 gm PO BID [facility] Last Admin: 04/11/22 08:31 Dose: 1 gm Documented By: YOLANDA Vitamin D (Cholecalciferol (Vitamin D3) 25 Mcg Tablet) 125 mcg PO DAILY [facility] Last Admin: 04/11/22 08:31 Dose: 125 mcg Documented By: YOLANDA Zolpidem Tartrate (Zolpidem Tartrate 5 Mg Tablet) 5 mg PO BEDTIME PRN PRN Reason: Insomnia Labs 04/11/22 05:07 04/10/22 04:59 Labs: Laboratory Results - last 24 hr 04/11/22 05:07 MCV 101.0 H MCH 32.3 MCHC 32.0 RDW 13.0 Plt Count 175 MPV 9.0 L Absolute Nucleated RBC 0.000 Nucleated RBC % (auto) 0.0 Microbiology Microbiology Results: Microbiology 04/08/22 04:32 Blood Culture - Final Blood - Venous Coag negative Staphylococcus 04/09/22 Unknown Urine Culture - Final Urine clean catch - Clean Catch Midstream Assessment and Plan (1) SBO (small bowel obstruction): Status: Acute (2) Bronchitis: Status: Acute Plan 71-year-old female with PMH significant for colon cancer with colectomy, vaginal cancer, interstitial lung disease, hx of SBO, who presetned to the ED with complaints of severe 10/10 abdominal pain lower abdomen associated with bloody stool.? Workup and imaging were consistent partial small-bowel obstruction due to adhesions.? Pt admitted by General Surgery for management of SBO. Hospital consult for medical management. Pt has no acute complaints outside of those relating to SBO. SBO responding to conservative management, on full liquid diet as per General surgery, strongly encourage ambulation Interstitial lung disease oxygenation stable on room air continue home inhalers Acute bronchitis improving continue doxycycline 100 mg b.i.d. for total 10 days, continue home inhalers and DuoNeb q.i.d., can resume albuterol inhaler at discharge. Gram-positive cocci bacteremia final sensitive showed coagulase-negative Staph Hemochromatosis stable, continue home medications DVT prophylaxis on compression boots. Disposition as per General surgery. Time Spent With Patient Time: Total time managing care of this patient today ____ minutes. Quality Stroke Does the patient have a stroke diagnosis?: No VTE Prior VTE?: No VTE Risk Level:: Surgical - moderate VTE Device Contraindication: N/A - Device Ordered VTE Drug Contraindication: Treatment Not Indicated
--- NOTE | 2022-04-11 14:25 | MHC.CM.PN ---
EMR REVIEWED, PT REMAINS ON FULL LIQUIDS AND C/O PAIN, NO PLAN FOR D/C TODAY, ANTC D/C ONCE PT TOLERATING A REGULAR DIET. D/C PLAN; HOME NO SERVICES [facility] FOR TRANSPORT
[2022-04-11] MEDS: Fluticasone Propionate Nasal 16 GM SPRAY 1 SPRAY NOSTRIL-B (15:14)
[2022-04-11] MEDS: Benzonatate 100 MG CAPSULE PO (15:14)
[2022-04-11] MEDS: Simethicone 80 MG TAB.CHEW 240 MG PO (17:47)
[2022-04-12] MEDS: LORazepam 2 MG/ML VIAL 0.5 MG IVPUSH ×3 (02:39→19:54)
[2022-04-12 03:39] VITALS: BP 142/77; PULSE 86; RESP 18; TEMP 36.7; O2SAT 95
[2022-04-12] MEDS: Omeprazole 20 MG CAPSULE.DR PO (06:18)
[2022-04-12] MEDS: Doxycycline Monohydrate 100 MG CAPSULE PO (06:18)
[2022-04-12 07:52] VITALS: BP 145/87; PULSE 84; RESP 18; TEMP 36.5; O2SAT 95
[2022-04-12 08:15] VITALS: PULSE 97; RESP 18; O2SAT 96
[2022-04-12] MEDS: Albuterol/Iprat 2.5/0.5MG 3 ML AMPUL.NEB INHALE ×2 (08:15→18:58)
[2022-04-12] MEDS: Fluticasone/Vilanterol 200/25 BLST.W.DEV 1 PUFF INHALE (08:28)
[2022-04-12] MEDS: Lipase/Prot/Amylase 24/76/120K 1 CAP CAPSULE.DR PO ×3 (08:42→15:53)
[2022-04-12] MEDS: HYDROmorphone HCl 0.5 MG/0.5 ML SYRINGE 1 MG IVPUSH ×4 (08:42→20:06)
[2022-04-12] MEDS: Cholecalciferol (Vitamin D3) 25 MCG TABLET 125 MCG PO (08:43)
[2022-04-12] MEDS: Simethicone 80 MG TAB.CHEW 240 MG PO (08:43)
[2022-04-12] MEDS: Metoprolol Succinate ER 25 MG TAB.ER.24H PO (08:43)
[2022-04-12] MEDS: Sucralfate 1 GM TABLET PO ×2 (08:43→19:53)
[2022-04-12] MEDS: Aspirin Enteric Coated 81 MG TABLET.DR PO (08:44)
[2022-04-12] MEDS: 0.9 % Sodium Chloride Flush 3 ML SYRINGE IVFLUSH ×3 (08:44→19:54)
[2022-04-12] MEDS: Multivitamin TABLET 1 TAB PO (08:44)
--- NOTE | 2022-04-12 11:27 | PM.PNGS ---
Subjective Subjective Date of Service: 04/12/22 Interval history: Continues to have intermittent abdominal pain and nausea. Passing some flatus. No BM since the other day. Ambulating in halls multiple times. Physical Exam Vital Signs: Vital Signs: Last Vital Signs Temp 97.7 F 04/12/22 07:52 Pulse 97 04/12/22 08:15 Resp 18 04/12/22 08:15 BP 145/87 H 04/12/22 07:52 Pulse Ox 95 04/12/22 07:52 O2 Del Method 04/12/22 07:52 BMI result Body Mass Index 27.3 Const: General: comfortable, no acute distress and alert Orientation/consciousness: patient oriented x3 Resp: Effort & Inspection: normal respiratory effort GI: Inspection: Yes distended (mildly) Palpation (GI): Soft to palpation, Tenderness to palpation present (GI) (mild ), no guarding and not rigid Percussion: Yes normal to percussion Skin: General skin exam: no rashes or lesions noted Neuro: General: patient oriented x3 and moves all extremities Objective Data Active Medications Acetaminophen (Acetaminophen 325 Mg Tablet) 650 mg PO Q6H PRN PRN Reason: Pain, Mild (Pain Scale 1-3) Albuterol Sulfate (Albuterol Sulfate 90 Mcg 8 Gm Inhaler) 2 puff INHALE Q4H PRN PRN Reason: for wheezing Albuterol/Ipratropium (Albuterol/Iprat 2.5/0.5mg 3 Ml Ampul.Neb) 3 ml INHALE RQ6H WHILE AWAKE [facility] Last Admin: 04/12/22 08:15 Dose: 3 ml Documented By: KRIS Lipase/Protease/Amylase (Lipase/Prot/Amylase 24/76/120k 1 Cap Capsule.) 1 cap PO TIDAC [facility] Last Admin: 04/12/22 11:06 Dose: 1 cap Documented By: LEILANI Aspirin (Aspirin Enteric Coated 81 Mg Tablet.) 81 mg PO DAILY [facility] Last Admin: 04/12/22 08:44 Dose: 81 mg Documented By: LEILANI Benzonatate (Benzonatate 100 Mg Capsule) 100 mg PO TID PRN PRN Reason: Cough Last Admin: 04/11/22 15:14 Dose: 100 mg Documented By: ROSALBA Doxycycline Monohydrate (Doxycycline Monohydrate 100 Mg Capsule) 100 mg PO Q12H [facility] Last Admin: 04/12/22 06:18 Dose: 100 mg Documented By: CHYNA Fluticasone Propionate (Fluticasone Propionate Nasal 16 Gm [place]) 1 spray NOSTRIL-B DAILY PRN PRN Reason: Allergy Symptoms Last Admin: 04/11/22 15:14 Dose: 1 spray Documented By: ROSALBA Fluticasone/Vilanterol (Fluticasone/Vilanterol 200/25 Blst.W.Dev) 1 puff INHALE RDAILY [facility] Last Admin: 04/12/22 08:28 Dose: 1 puff Documented By: KRIS Guaifenesin (Guaifenesin La 600 Mg Tab.Er.12h) 600 mg PO Q12H PRN PRN Reason: Congestion Hydromorphone HCl (Hydromorphone Hcl 0.5 Mg/0.5 Ml Syringe) 1 mg IVPUSH Q3H PRN; Protocol PRN Reason: Pain, Severe (Pain Scale 7-10) Last Admin: 04/12/22 08:42 Dose: 1 mg Documented By: LEILANI Lorazepam (Lorazepam 2 Mg/Ml Vial) 0.5 mg IVPUSH Q6H PRN PRN Reason: Anxiety Last Admin: 04/12/22 11:06 Dose: 0.5 mg Documented By: LEILANI Metoprolol Succinate (Metoprolol Succinate Er 25 Mg Tab.Er.24h) 25 mg PO DAILY [facility]; Protocol Last Admin: 04/12/22 08:43 Dose: 25 mg Documented By: LEILANI Multivitamins/Vitamin C (Multivitamin Tablet) 1 tab PO DAILY [facility] Last Admin: 04/12/22 08:44 Dose: 1 tab Documented By: LEILANI Omeprazole (Omeprazole 20 Mg Capsule.Dr) 20 mg PO DAILY@0630 [facility] Last Admin: 04/12/22 06:18 Dose: 20 mg Documented By: CHYNA Ondansetron HCl (Ondansetron Hcl 4 Mg/2 Ml Vial) 4 mg IVPUSH QID PRN PRN Reason: Nausea Last Admin: 04/12/22 00:00 Dose: 4 mg Documented By: CHYNA Pharmacy Consult (Consult Rx Perform Med Rec) 1 each MISCELLANE ONCE PRN PRN Reason: Consult order Simethicone (Simethicone 80 Mg Tab.Chew) 240 mg PO QIDWMHS PRN PRN Reason: Gas Last Admin: 04/12/22 08:43 Dose: 240 mg Documented By: LEILANI Sodium Chloride (0.9 % Sodium Chloride Flush 3 Ml Syringe) 3 ml IVFLUSH QSHIFT [facility] Last Admin: 04/12/22 08:44 Dose: 3 ml Documented By: LEILANI Sucralfate (Sucralfate 1 Gm Tablet) 1 gm PO BID [facility] Last Admin: 04/12/22 08:43 Dose: 1 gm Documented By: LEILANI Vitamin D (Cholecalciferol (Vitamin D3) 25 Mcg Tablet) 125 mcg PO DAILY [facility] Last Admin: 04/12/22 08:43 Dose: 125 mcg Documented By: LEILANI Zolpidem Tartrate (Zolpidem Tartrate 5 Mg Tablet) 5 mg PO BEDTIME PRN PRN Reason: Insomnia Labs 04/11/22 05:07 04/10/22 04:59 Procedures Date of Service Date of Service: 04/12/22 Progress Note: A&P Assessment and plan (1) SBO (small bowel obstruction): Status: Acute Plan 71 year old female admitted with recurrent SBO. Has had some improvement and is passing flatus but still with intermittent abd pain and nausea. Will obtain SB series today to further assess. Patient comfortable with plan. Time Spent With Patient Time: Total time managing care of this patient today ____ minutes. Quality Stroke Does the patient have a stroke diagnosis?: No VTE Prior VTE?: No VTE Risk Level:: Surgical - moderate VTE Device Contraindication: N/A - Device Ordered VTE Drug Contraindication: Treatment Not Indicated
--- NOTE | 2022-04-12 13:03 | P.PNIM_ITS ---
Subjective Subjective Date of Service: 04/12/22 Interval History: Complaining of congested cough, no shortness of breath, no fevers, no chills complaining of mild mid abdominal discomfort and nausea, no bowel movement in last 24 hours, has been ambulating and tolerating full liquid diet. Review of Systems Review of Systems: Yes all other systems are reviewed and are negative Physical Exam Vital Signs: Vital Signs: Last Vital Signs Temp 97.7 F 04/12/22 07:52 Pulse 97 04/12/22 08:15 Resp 18 04/12/22 08:15 BP 145/87 H 04/12/22 07:52 Pulse Ox 95 04/12/22 07:52 O2 Del Method 04/12/22 07:52 BMI result Body Mass Index 27.3 Const: Other: General? resting comfortably in no acute distress. anicteric sclera? Neck supple no JVD. CVS? regular rate rhythm, Respiratory lungs clear to auscultation, no respiratory distress, no wheeze, no rhonchi. Gastrointestinal abdomen soft, no abdominal tenderness , bowel sounds audible, no guarding , no rigidity. Extremities no edema. Neuro nonfocal . Skin no rash Objective Data Active Medications Acetaminophen (Acetaminophen 325 Mg Tablet) 650 mg PO Q6H PRN PRN Reason: Pain, Mild (Pain Scale 1-3) Albuterol Sulfate (Albuterol Sulfate 90 Mcg 8 Gm Inhaler) 2 puff INHALE Q4H PRN PRN Reason: for wheezing Albuterol/Ipratropium (Albuterol/Iprat 2.5/0.5mg 3 Ml Ampul.Neb) 3 ml INHALE RQ6H WHILE AWAKE [facility] Last Admin: 04/12/22 08:15 Dose: 3 ml Documented By: ULRICMaximo Lipase/Protease/Amylase (Lipase/Prot/Amylase 24/76/120k 1 Cap Capsule.) 1 cap PO TIDAC [facility] Last Admin: 04/12/22 11:06 Dose: 1 cap Documented By: LEILANI Aspirin (Aspirin Enteric Coated 81 Mg Tablet.) 81 mg PO DAILY [facility] Last Admin: 04/12/22 08:44 Dose: 81 mg Documented By: LEILANI Benzonatate (Benzonatate 100 Mg Capsule) 100 mg PO TID PRN PRN Reason: Cough Last Admin: 04/11/22 15:14 Dose: 100 mg Documented By: ROSALBA Doxycycline Monohydrate (Doxycycline Monohydrate 100 Mg Capsule) 100 mg PO Q12H [facility] Last Admin: 04/12/22 06:18 Dose: 100 mg Documented By: CHYNA Fluticasone Propionate (Fluticasone Propionate Nasal 16 Gm [place]) 1 spray NOSTRIL-B DAILY PRN PRN Reason: Allergy Symptoms Last Admin: 04/11/22 15:14 Dose: 1 spray Documented By: ROSALBA Fluticasone/Vilanterol (Fluticasone/Vilanterol 200/25 Blst.W.Dev) 1 puff INHALE RDAILY [facility] Last Admin: 04/12/22 08:28 Dose: 1 puff Documented By: KRIS Guaifenesin (Guaifenesin La 600 Mg Tab.Er.12h) 600 mg PO Q12H PRN PRN Reason: Congestion Hydromorphone HCl (Hydromorphone Hcl 0.5 Mg/0.5 Ml Syringe) 1 mg IVPUSH Q3H PRN; Protocol PRN Reason: Pain, Severe (Pain Scale 7-10) Last Admin: 04/12/22 08:42 Dose: 1 mg Documented By: LEILANI Lorazepam (Lorazepam 2 Mg/Ml Vial) 0.5 mg IVPUSH Q6H PRN PRN Reason: Anxiety Last Admin: 04/12/22 11:06 Dose: 0.5 mg Documented By: LEILANI Metoprolol Succinate (Metoprolol Succinate Er 25 Mg Tab.Er.24h) 25 mg PO DAILY [facility]; Protocol Last Admin: 04/12/22 08:43 Dose: 25 mg Documented By: LEILANI Multivitamins/Vitamin C (Multivitamin Tablet) 1 tab PO DAILY [facility] Last Admin: 04/12/22 08:44 Dose: 1 tab Documented By: LEILANI Omeprazole (Omeprazole 20 Mg Capsule.) 20 mg PO DAILY@0630 [facility] Last Admin: 04/12/22 06:18 Dose: 20 mg Documented By: CHYNA Ondansetron HCl (Ondansetron Hcl 4 Mg/2 Ml Vial) 4 mg IVPUSH QID PRN PRN Reason: Nausea Last Admin: 04/12/22 00:00 Dose: 4 mg Documented By: CHYNA Pharmacy Consult (Consult Rx Perform Med Rec) 1 each MISCELLANE ONCE PRN PRN Reason: Consult order Simethicone (Simethicone 80 Mg Tab.Chew) 240 mg PO QIDWMHS PRN PRN Reason: Gas Last Admin: 04/12/22 08:43 Dose: 240 mg Documented By: LEILANI Sodium Chloride (0.9 % Sodium Chloride Flush 3 Ml Syringe) 3 ml IVFLUSH QSHIFT [facility] Last Admin: 04/12/22 08:44 Dose: 3 ml Documented By: LEILANI Sucralfate (Sucralfate 1 Gm Tablet) 1 gm PO BID [facility] Last Admin: 04/12/22 08:43 Dose: 1 gm Documented By: LEILANI Vitamin D (Cholecalciferol (Vitamin D3) 25 Mcg Tablet) 125 mcg PO DAILY [facility] Last Admin: 04/12/22 08:43 Dose: 125 mcg Documented By: LEILANI Zolpidem Tartrate (Zolpidem Tartrate 5 Mg Tablet) 5 mg PO BEDTIME PRN PRN Reason: Insomnia Labs 04/11/22 05:07 04/10/22 04:59 Assessment and Plan (1) SBO (small bowel obstruction): Status: Acute (2) Bronchitis: Status: Acute Plan 71-year-old female with PMH significant for colon cancer with colectomy, vaginal cancer, interstitial lung disease, hx of SBO, who presetned to the ED with complaints of severe 10/10 abdominal pain lower abdomen associated with bloody stool.? Workup and imaging were consistent partial small-bowel obstruction due to adhesions.? Pt admitted by General Surgery for management of SBO. Hospital consult for medical management. Pt has no acute complaints outside of those relating to SBO. SBO passing flatus tolerating full liquid diet, ambulating, complaining of abdominal/gas pain , further treatment plan as per General surgery, strongly en courage ambulation Interstitial lung disease oxygenation stable on room air continue home inhalers Acute bronchitis improving continue doxycycline 100 mg b.i.d. day 12/18, continue home inhalers and dc DuoNeb q.i.d. Hemochromatosis stable, continue home medications DVT prophylaxis on compression boots. Disposition as per General surgery. Time Spent With Patient Time: Total time managing care of this patient today ____ minutes. Quality Stroke Does the patient have a stroke diagnosis?: No VTE Prior VTE?: No VTE Risk Level:: Surgical - moderate VTE Device Contraindication: N/A - Device Ordered VTE Drug Contraindication: Treatment Not Indicated
[2022-04-12 15:53] VITALS: BP 139/72; PULSE 84; RESP 18; TEMP 36.7; O2SAT 96
[2022-04-12] MEDS: ondansetron HCL 4 MG/2 ML VIAL IVPUSH ×2 (18:41)
[2022-04-12 19:02] VITALS: PULSE 84; RESP 18; O2SAT 96
[2022-04-12 19:17] VITALS: BP 141/81; PULSE 83; RESP 18; TEMP 36.8; O2SAT 94
[2022-04-12] MEDS: Benzonatate 100 MG CAPSULE PO (19:54)
[2022-04-12] MEDS: Fluticasone Propionate Nasal 16 GM SPRAY 1 SPRAY NOSTRIL-B (19:58)
[2022-04-13] MEDS: HYDROmorphone HCl 0.5 MG/0.5 ML SYRINGE 1 MG IVPUSH ×6 (02:05→20:59)
[2022-04-13 03:18] VITALS: BP 139/75; PULSE 83; RESP 18; TEMP 36.7; O2SAT 96
[2022-04-13] MEDS: LORazepam 2 MG/ML VIAL 0.5 MG IVPUSH ×3 (03:24→15:28)
[2022-04-13] MEDS: Lipase/Prot/Amylase 24/76/120K 1 CAP CAPSULE.DR PO ×3 (07:22→15:28)
[2022-04-13] MEDS: Metoprolol Succinate ER 25 MG TAB.ER.24H PO (07:22)
[2022-04-13] MEDS: Sucralfate 1 GM TABLET PO ×2 (07:22→20:58)
[2022-04-13] MEDS: Aspirin Enteric Coated 81 MG TABLET.DR PO (07:23)
[2022-04-13] MEDS: Multivitamin TABLET 1 TAB PO (07:23)
[2022-04-13] MEDS: 0.9 % Sodium Chloride Flush 3 ML SYRINGE IVFLUSH ×3 (07:23→20:59)
[2022-04-13] MEDS: Cholecalciferol (Vitamin D3) 25 MCG TABLET 125 MCG PO (07:23)
[2022-04-13] MEDS: Albuterol/Iprat 2.5/0.5MG 3 ML AMPUL.NEB INHALE (07:28)
[2022-04-13] MEDS: Fluticasone/Vilanterol 200/25 BLST.W.DEV 1 PUFF INHALE (07:29)
[2022-04-13 07:30] VITALS: BP 145/84; PULSE 89; RESP 18; TEMP 36.7; O2SAT 92
[2022-04-13 07:31] VITALS: PULSE 92; RESP 18; O2SAT 95
--- NOTE | 2022-04-13 08:05 | PM.PNGS ---
Subjective Subjective Date of Service: 04/13/22 Interval history: No improvement in her abdominal symptoms. She continues to have upper abdominal pain in waves. No BM for 2 days. GI study requested yesterday and pending today. Physical Exam Vital Signs: Vital Signs: Last Vital Signs Temp 98.0 F 04/13/22 07:30 Pulse 92 04/13/22 07:31 Resp 18 04/13/22 07:31 BP 145/84 H 04/13/22 07:30 Pulse Ox 92 04/13/22 07:30 O2 Del Method 04/13/22 07:30 BMI result Body Mass Index 27.3 Const: General: no acute distress and anxious Nutritional Appearance: well nourished Orientation/consciousness: patient oriented x3 Limitations: no limitations Resp: Effort & Inspection: normal respiratory effort and no respiratory distress GI: Inspection: Yes distended and Yes scar Palpation (GI): Soft to palpation, Tenderness to palpation present (GI) (Mild tenderness in the upper abdomen without rebound or guarding) and no masses Percussion: Yes dullness to percussion Auscultation: Hypoactive bowel sounds present Rectal Exam - Female: deferred Neuro: General: patient oriented x3 Extrem: General: Yes no pedal edema Objective Data Active Medications Acetaminophen (Acetaminophen 325 Mg Tablet) 650 mg PO Q6H PRN PRN Reason: Pain, Mild (Pain Scale 1-3) Albuterol Sulfate (Albuterol Sulfate 90 Mcg 8 Gm Inhaler) 2 puff INHALE Q4H PRN PRN Reason: for wheezing Albuterol/Ipratropium (Albuterol/Iprat 2.5/0.5mg 3 Ml Ampul.Neb) 3 ml INHALE TID [facility] Last Admin: 04/13/22 07:28 Dose: 3 ml Documented By: ULRICMaximo Lipase/Protease/Amylase (Lipase/Prot/Amylase 24/76/120k 1 Cap Capsule.) 1 cap PO TIDAC [facility] Last Admin: 04/13/22 07:22 Dose: 1 cap Documented By: LEILANI Aspirin (Aspirin Enteric Coated 81 Mg Tablet.) 81 mg PO DAILY [facility] Last Admin: 04/13/22 07:23 Dose: 81 mg Documented By: LEILANI Benzonatate (Benzonatate 100 Mg Capsule) 100 mg PO TID PRN PRN Reason: Cough Last Admin: 04/12/22 19:54 Dose: 100 mg Documented By: ZEB Fluticasone Propionate (Fluticasone Propionate Nasal 16 Gm [place]) 1 spray NOSTRIL-B DAILY PRN PRN Reason: Allergy Symptoms Last Admin: 04/12/22 19:58 Dose: 1 spray Documented By: ZEB Fluticasone/Vilanterol (Fluticasone/Vilanterol 200/25 Blst.W.Dev) 1 puff INHALE RDAILY [facility] Last Admin: 04/13/22 07:29 Dose: 1 puff Documented By: KRIS Guaifenesin (Guaifenesin La 600 Mg Tab.Er.12h) 600 mg PO Q12H PRN PRN Reason: Congestion Hydromorphone HCl (Hydromorphone Hcl 0.5 Mg/0.5 Ml Syringe) 1 mg IVPUSH Q3H PRN; Protocol PRN Reason: Pain, Severe (Pain Scale 7-10) Last Admin: 04/13/22 07:40 Dose: 1 mg Documented By: LEILANI Lorazepam (Lorazepam 2 Mg/Ml Vial) 0.5 mg IVPUSH Q6H PRN PRN Reason: Anxiety Last Admin: 04/13/22 03:24 Dose: 0.5 mg Documented By: ZEB Metoprolol Succinate (Metoprolol Succinate Er 25 Mg Tab.Er.24h) 25 mg PO DAILY [facility]; Protocol Last Admin: 04/13/22 07:22 Dose: 25 mg Documented By: LEILANI Multivitamins/Vitamin C (Multivitamin Tablet) 1 tab PO DAILY [facility] Last Admin: 04/13/22 07:23 Dose: 1 tab Documented By: LEILANI Omeprazole (Omeprazole 20 Mg Capsule.Dr) 20 mg PO DAILY@0630 [facility] Last Admin: 04/13/22 05:58 Dose: Not Given Documented By: ZEB Non-Admin Reason: pt was instructed NPO with a plan to do EGD Ondansetron HCl (Ondansetron Hcl 4 Mg/2 Ml Vial) 4 mg IVPUSH QID PRN PRN Reason: Nausea Last Admin: 04/12/22 18:41 Dose: 4 mg Documented By: LEILANI Pharmacy Consult (Consult Rx Perform Med Rec) 1 each MISCELLANE ONCE PRN PRN Reason: Consult order Simethicone (Simethicone 80 Mg Tab.Chew) 240 mg PO QIDWMHS PRN PRN Reason: Gas Last Admin: 04/12/22 08:43 Dose: 240 mg Documented By: LEILANI Sodium Chloride (0.9 % Sodium Chloride Flush 3 Ml Syringe) 3 ml IVFLUSH QSHIFT [facility] Last Admin: 04/13/22 07:23 Dose: 3 ml Documented By: LEILANI Sucralfate (Sucralfate 1 Gm Tablet) 1 gm PO BID [facility] Last Admin: 04/13/22 07:22 Dose: 1 gm Documented By: LEILANI Vitamin D (Cholecalciferol (Vitamin D3) 25 Mcg Tablet) 125 mcg PO DAILY [facility] Last Admin: 04/13/22 07:23 Dose: 125 mcg Documented By: LEILANI Zolpidem Tartrate (Zolpidem Tartrate 5 Mg Tablet) 5 mg PO BEDTIME PRN PRN Reason: Insomnia Labs 04/11/22 05:07 04/10/22 04:59 Microbiology Microbiology Results: Microbiology 04/08/22 04:32 Blood Culture - Final Blood - Venous No growth after 5 days. Procedures Date of Service Date of Service: 04/13/22 Progress Note: A&P Assessment and plan (1) SBO (small bowel obstruction): Status: Acute Plan 71-year-old female patient with persistent small-bowel obstruction due to adhesions. Previous episodes resolved non operatively however this current episode is taking longer to resolve. A GI study is pending today. Further management based on these results. Patient expressed understanding and agrees with the plan. Time Spent With Patient Time: Total time managing care of this patient today ____ minutes. No Severe Sepsis: No Severe Sepsis Quality Stroke Does the patient have a stroke diagnosis?: No VTE Prior VTE?: No VTE Risk Level:: Surgical - moderate VTE Device Contraindication: N/A - Device Ordered VTE Drug Contraindication: Treatment Not Indicated
--- NOTE | 2022-04-13 11:31 | P.PNIM_ITS ---
Subjective Subjective Date of Service: 04/13/22 Interval History: Complaining of mid abdominal discomfort, taking Gas-X and passing flatus, no bowel movement in last 48 hours tolerating full liquid diet, no shortness breath, mild cough, no fevers, no chills no other acute issues overnight. Review of Systems Review of Systems: Yes all other systems are reviewed and are negative Physical Exam Vital Signs: Vital Signs: Last Vital Signs Temp 98.0 F 04/13/22 07:30 Pulse 92 04/13/22 07:31 Resp 18 04/13/22 07:31 BP 145/84 H 04/13/22 07:30 Pulse Ox 92 04/13/22 07:30 O2 Del Method 04/13/22 07:30 BMI result Body Mass Index 27.3 Const: Other: General? resting c omfortably in no a cute distress. ani cteric sclera? Nec k supple no JVD. C VS? regular rate r hythm, Respiratory lungs clear to au scultation, no res piratory distress, no wheeze, no rho nchi. Gastrointest inal abdomen soft, mild abdominal di scomfort , bowel s ounds audible, no guarding , no rigi dity. Extremities no edema. Neuro no nfocal . Skin no r kush Objective Data Active Medications Acetaminophen (Acetaminophen 325 Mg Tablet) 650 mg PO Q6H PRN PRN Reason: Pain, Mild (Pain Scale 1-3) Albuterol Sulfate (Albuterol Sulfate 90 Mcg 8 Gm Inhaler) 2 puff INHALE Q4H PRN PRN Reason: for wheezing Albuterol/Ipratropium (Albuterol/Iprat 2.5/0.5mg 3 Ml Ampul.Neb) 3 ml INHALE TID [facility] Last Admin: 04/13/22 07:28 Dose: 3 ml Documented By: ULRICMaximo Lipase/Protease/Amylase (Lipase/Prot/Amylase 24/76/120k 1 Cap Capsule.) 1 cap PO TIDAC [facility] Last Admin: 04/13/22 07:22 Dose: 1 cap Documented By: LEILANI Aspirin (Aspirin Enteric Coated 81 Mg Tablet.) 81 mg PO DAILY [facility] Last Admin: 04/13/22 07:23 Dose: 81 mg Documented By: LEILANI Benzonatate (Benzonatate 100 Mg Capsule) 100 mg PO TID PRN PRN Reason: Cough Last Admin: 04/12/22 19:54 Dose: 100 mg Documented By: ZEB Fluticasone Propionate (Fluticasone Propionate Nasal 16 Gm [place]) 1 spray NOSTRIL-B DAILY PRN PRN Reason: Allergy Symptoms Last Admin: 04/12/22 19:58 Dose: 1 spray Documented By: ZEB Fluticasone/Vilanterol (Fluticasone/Vilanterol 200/25 Blst.W.Dev) 1 puff INHALE RDAILY [facility] Last Admin: 04/13/22 07:29 Dose: 1 puff Documented By: KRIS Guaifenesin (Guaifenesin La 600 Mg Tab.Er.12h) 600 mg PO Q12H PRN PRN Reason: Congestion Hydromorphone HCl (Hydromorphone Hcl 0.5 Mg/0.5 Ml Syringe) 1 mg IVPUSH Q3H PRN; Protocol PRN Reason: Pain, Severe (Pain Scale 7-10) Last Admin: 04/13/22 07:40 Dose: 1 mg Documented By: LEILANI Lorazepam (Lorazepam 2 Mg/Ml Vial) 0.5 mg IVPUSH Q6H PRN PRN Reason: Anxiety Last Admin: 04/13/22 09:35 Dose: 0.5 mg Documented By: LEILANI Metoprolol Succinate (Metoprolol Succinate Er 25 Mg Tab.Er.24h) 25 mg PO DAILY [facility]; Protocol Last Admin: 04/13/22 07:22 Dose: 25 mg Documented By: LEILANI Multivitamins/Vitamin C (Multivitamin Tablet) 1 tab PO DAILY [facility] Last Admin: 04/13/22 07:23 Dose: 1 tab Documented By: LEILANI Omeprazole (Omeprazole 20 Mg Capsule.Dr) 20 mg PO DAILY@0630 [facility] Last Admin: 04/13/22 05:58 Dose: Not Given Documented By: ZEB Non-Admin Reason: pt was instructed NPO with a plan to do EGD Ondansetron HCl (Ondansetron Hcl 4 Mg/2 Ml Vial) 4 mg IVPUSH QID PRN PRN Reason: Nausea Last Admin: 04/12/22 18:41 Dose: 4 mg Documented By: LEILANI Pharmacy Consult (Consult Rx Perform Med Rec) 1 each MISCELLANE ONCE PRN PRN Reason: Consult order Simethicone (Simethicone 80 Mg Tab.Chew) 240 mg PO QIDWMHS PRN PRN Reason: Gas Last Admin: 04/12/22 08:43 Dose: 240 mg Documented By: LEILANI Sodium Chloride (0.9 % Sodium Chloride Flush 3 Ml Syringe) 3 ml IVFLUSH QSHIFT [facility] Last Admin: 04/13/22 07:23 Dose: 3 ml Documented By: LEILANI Sucralfate (Sucralfate 1 Gm Tablet) 1 gm PO BID [facility] Last Admin: 04/13/22 07:22 Dose: 1 gm Documented By: LEILANI Vitamin D (Cholecalciferol (Vitamin D3) 25 Mcg Tablet) 125 mcg PO DAILY [facility] Last Admin: 04/13/22 07:23 Dose: 125 mcg Documented By: LEILANI Zolpidem Tartrate (Zolpidem Tartrate 5 Mg Tablet) 5 mg PO BEDTIME PRN PRN Reason: Insomnia Labs 04/11/22 05:07 04/10/22 04:59 Microbiology Microbiology Results: Microbiology 04/08/22 04:32 Blood Culture - Final Blood - Venous No growth after 5 days. Assessment and Plan (1) SBO (small bowel obstruction): Status: Acute (2) Bronchitis: Status: Acute Plan 71-year-old female with PMH significant for colon cancer with colectomy, vaginal cancer, interstitial lung disease, hx of SBO, who presetned to the ED with complaints of severe 10/10 abdominal pain lower abdomen associated with bloody stool.? Workup and imaging were consistent partial small-bowel obstruction due to adhesions.? Pt admitted by General Surgery for management of SBO. Hospital consult for medical management. Pt has no acute complaints outside of those relating to SBO. SBO no bowel movement in 48 hours, on full liquid diet, ambulating, complaining of abdominal/gas pain , upper GI x-ray report pending, further treatment plan as per General surgery, strongly encourage ambulation Interstitial lung disease oxygenation stable on room air continue home inhalers Acute bronchitis improving continue doxycycline 100 mg b.i.d. day 12/18, continue home inhalers and dc DuoNeb q.i.d. Hemochromatosis stable, continue home medications DVT prophylaxis on compression boots. Disposition as per General surgery. Time Spent With Patient Time: Total time managing care of this patient today ____ minutes. Quality Stroke Does the patient have a stroke diagnosis?: No VTE Prior VTE?: No VTE Risk Level:: Surgical - moderate VTE Device Contraindication: N/A - Device Ordered VTE Drug Contraindication: Treatment Not Indicated
[2022-04-13] MEDS: Mineral OiL enema 133 ML ENEMA PR (14:10)
[2022-04-13 15:12] VITALS: BP 118/78; PULSE 93; RESP 15; TEMP 36.5; O2SAT 96
[2022-04-13 19:14] VITALS: BP 127/76; PULSE 97; RESP 15; TEMP 36.8; O2SAT 95
[2022-04-14 02:04] VITALS: BP 135/75; PULSE 90; RESP 16; O2SAT 97
[2022-04-14] MEDS: HYDROmorphone HCl 0.5 MG/0.5 ML SYRINGE 1 MG IVPUSH ×5 (02:29→23:23)
[2022-04-14] MEDS: Omeprazole 20 MG CAPSULE.DR PO (06:09)
[2022-04-14] MEDS: Multivitamin TABLET 1 TAB PO (07:55)
[2022-04-14] MEDS: Sucralfate 1 GM TABLET PO ×2 (07:55→20:33)
[2022-04-14] MEDS: 0.9 % Sodium Chloride Flush 3 ML SYRINGE IVFLUSH ×3 (07:55→20:33)
[2022-04-14] MEDS: Aspirin Enteric Coated 81 MG TABLET.DR PO (07:55)
[2022-04-14] MEDS: Metoprolol Succinate ER 25 MG TAB.ER.24H PO (07:55)
[2022-04-14] MEDS: Lipase/Prot/Amylase 24/76/120K 1 CAP CAPSULE.DR PO ×3 (07:55→17:35)
[2022-04-14] MEDS: Cholecalciferol (Vitamin D3) 25 MCG TABLET 125 MCG PO (07:56)
[2022-04-14 08:00] VITALS: BP 119/68; PULSE 87; RESP 18; TEMP 36.6; O2SAT 94
[2022-04-14] MEDS: Fluticasone/Vilanterol 200/25 BLST.W.DEV 1 PUFF INHALE (08:23)
[2022-04-14 08:26] VITALS: PULSE 91; RESP 18; O2SAT 94
[2022-04-14] MEDS: Benzonatate 100 MG CAPSULE PO (08:46)
[2022-04-14] MEDS: guaiFENesin LA 600 MG TAB.ER.12H PO ×2 (08:47→23:22)
--- NOTE | 2022-04-14 09:57 | PM.PNGS ---
Subjective Subjective Date of Service: 04/14/22 Patient reports: no flatus Interval history: The patient is seen in coverage Patient reports that she is having some gas, bloating and indigestion like symptoms involving her epigastrium. She reports her last flatus and bowel movement was over a day ago. Chart reviewed and small-bowel follow-through confirmed patency, but the patient reports slow clinical progress. She notes that a family member brought in some simethicone and that seemed to be helping with her GI symptoms. She otherwise denies pain in her chest, difficulty breathing or shortness of breath. She is seen while doing her a.m. care and is in good spirits Physical Exam Vital Signs: Vital Signs: Last Vital Signs Temp 97.8 F 04/14/22 08:00 Pulse 91 04/14/22 08:26 Resp 18 04/14/22 08:26 BP 119/68 04/14/22 08:00 Pulse Ox 94 04/14/22 08:00 O2 Del Method 04/14/22 08:00 BMI result Body Mass Index 27.3 On exam, the patient is nontoxic Sclera anicteric She is in no respiratory distress Patient's abdomen is soft with no rebound, rigidity, guarding or focal tenderness. Mild epigastric discomfort is present. Objective Data Active Medications Acetaminophen (Acetaminophen 325 Mg Tablet) 650 mg PO Q6H PRN PRN Reason: Pain, Mild (Pain Scale 1-3) Albuterol Sulfate (Albuterol Sulfate 90 Mcg 8 Gm Inhaler) 2 puff INHALE Q4H PRN PRN Reason: for wheezing Lipase/Protease/Amylase (Lipase/Prot/Amylase 24/76/120k 1 Cap Capsule.) 1 cap PO TIDAC [facility] Last Admin: 04/14/22 07:55 Dose: 1 cap Documented By: JOHANA Aspirin (Aspirin Enteric Coated 81 Mg Tablet.) 81 mg PO DAILY [facility] Last Admin: 04/14/22 07:55 Dose: 81 mg Documented By: JOHANA Benzonatate (Benzonatate 100 Mg Capsule) 100 mg PO TID PRN PRN Reason: Cough Last Admin: 04/14/22 08:46 Dose: 100 mg Documented By: JOHANA Fluticasone Propionate (Fluticasone Propionate Nasal 16 Gm [place]) 1 spray NOSTRIL-B DAILY PRN PRN Reason: Allergy Symptoms Last Admin: 04/12/22 19:58 Dose: 1 spray Documented By: CASTILM Fluticasone/Vilanterol (Fluticasone/Vilanterol 200/25 Blst.W.Dev) 1 puff INHALE RDAILY [facility] Last Admin: 04/14/22 08:23 Dose: 1 puff Documented By: CHANTAL Guaifenesin (Guaifenesin La 600 Mg Tab.Er.12h) 600 mg PO Q12H PRN PRN Reason: Congestion Last Admin: 04/14/22 08:47 Dose: 600 mg Documented By: JOHANA Hydromorphone HCl (Hydromorphone Hcl 0.5 Mg/0.5 Ml Syringe) 1 mg IVPUSH Q3H PRN; Protocol PRN Reason: Pain, Severe (Pain Scale 7-10) Last Admin: 04/14/22 07:51 Dose: 1 mg Documented By: JOHANA Lorazepam (Lorazepam 2 Mg/Ml Vial) 0.5 mg IVPUSH Q6H PRN PRN Reason: Anxiety Last Admin: 04/13/22 15:28 Dose: 0.5 mg Documented By: LEILANI Metoprolol Succinate (Metoprolol Succinate Er 25 Mg Tab.Er.24h) 25 mg PO DAILY [facility]; Protocol Last Admin: 04/14/22 07:55 Dose: 25 mg Documented By: JOHANA Multivitamins/Vitamin C (Multivitamin Tablet) 1 tab PO DAILY [facility] Last Admin: 04/14/22 07:55 Dose: 1 tab Documented By: JOHANA Omeprazole (Omeprazole 20 Mg Capsule.) 20 mg PO DAILY@0630 [facility] Last Admin: 04/14/22 06:09 Dose: 20 mg Documented By: SHAR Ondansetron HCl (Ondansetron Hcl 4 Mg/2 Ml Vial) 4 mg IVPUSH QID PRN PRN Reason: Nausea Last Admin: 04/12/22 18:41 Dose: 4 mg Documented By: LEILANI Pharmacy Consult (Consult Rx Perform Med Rec) 1 each MISCELLANE ONCE PRN PRN Reason: Consult order Simethicone (Simethicone 80 Mg Tab.Chew) 240 mg PO QIDWMHS PRN PRN Reason: Gas Last Admin: 04/12/22 08:43 Dose: 240 mg Documented By: LEILANI Sodium Chloride (0.9 % Sodium Chloride Flush 3 Ml Syringe) 3 ml IVFLUSH QSHIFT [facility] Last Admin: 04/14/22 07:55 Dose: 3 ml Documented By: JOHANA Sucralfate (Sucralfate 1 Gm Tablet) 1 gm PO BID [facility] Last Admin: 04/14/22 07:55 Dose: 1 gm Documented By: JOHANA Vitamin D (Cholecalciferol (Vitamin D3) 25 Mcg Tablet) 125 mcg PO DAILY [facility] Last Admin: 04/14/22 07:56 Dose: 125 mcg Documented By: JOHANA Zolpidem Tartrate (Zolpidem Tartrate 5 Mg Tablet) 5 mg PO BEDTIME PRN PRN Reason: Insomnia Labs 04/11/22 05:07 04/10/22 04:59 Microbiology Microbiology Results: Microbiology 04/08/22 04:32 Blood Culture - Final Blood - Venous No growth after 5 days. Procedures Date of Service Date of Service: 04/14/22 Progress Note: A&P Assessment and plan (1) SBO (small bowel obstruction): Status: Acute (2) Radiation proctitis: Status: Acute Plan Add GI medicines as ordered and reassess tomorrow Patient requested staying on clears due to her GI distress and is concerned about advancing her diet. Will reassess diet advancement tomorrow Time Spent With Patient Time: Total time managing care of this patient today ____ minutes. Quality Stroke Does the patient have a stroke diagnosis?: No VTE Prior VTE?: No VTE Risk Level:: Surgical - moderate VTE Device Contraindication: N/A - Device Ordered VTE Drug Contraindication: Treatment Not Indicated
--- NOTE | 2022-04-14 12:45 | P.PNIM_ITS ---
Subjective Subjective Date of Service: 04/14/22 Interval History: Continues to complain mild abdominal pain and nausea; tolerating small amounts of clears Review of Systems Denies chest pain Denies shortness of breath Admits nausea denies vomiting diarrhea Denies fever chills Physical Exam Vital Signs: Vital Signs: Last Vital Signs Temp 97.8 F 04/14/22 08:00 Pulse 91 04/14/22 08:26 Resp 18 04/14/22 08:26 BP 119/68 04/14/22 08:00 Pulse Ox 94 04/14/22 08:00 O2 Del Method 04/14/22 08:00 BMI result Body Mass Index 27.3 Const: Other: Awake alert no acute distress Resp: Other: Clear to auscultation bilaterally no rales rhonchi or wheezes Cardio: Other: No S4; positive S1-S2; no S3 murmurs rubs or gallops GI: Other: Soft mildly tender without rebound. Bowel sounds quiet Extrem: Other: No edema bilaterally Objective Data Active Medications Acetaminophen (Acetaminophen 325 Mg Tablet) 650 mg PO Q6H PRN PRN Reason: Pain, Mild (Pain Scale 1-3) Al Hydroxide/Mg Hydroxide (Magnesium Hydrox/Alum Hydrox 30 Ml Oral.Susp) 30 ml PO Q4H PRN PRN Reason: GI Upset Albuterol Sulfate (Albuterol Sulfate 90 Mcg 8 Gm Inhaler) 2 puff INHALE Q4H PRN PRN Reason: for wheezing Lipase/Protease/Amylase (Lipase/Prot/Amylase 24/76/120k 1 Cap Capsule.) 1 cap PO TIDAC [facility] Last Admin: 04/14/22 12:38 Dose: 1 cap Documented By: JOHANA Aspirin (Aspirin Enteric Coated 81 Mg Tablet.) 81 mg PO DAILY [facility] Last Admin: 04/14/22 07:55 Dose: 81 mg Documented By: JOHANA Benzonatate (Benzonatate 100 Mg Capsule) 100 mg PO TID PRN PRN Reason: Cough Last Admin: 04/14/22 08:46 Dose: 100 mg Documented By: JOHANA Fluticasone Propionate (Fluticasone Propionate Nasal 16 Gm [place]) 1 spray NOSTRIL-B DAILY PRN PRN Reason: Allergy Symptoms Last Admin: 04/12/22 19:58 Dose: 1 spray Documented By: CASTILM Fluticasone/Vilanterol (Fluticasone/Vilanterol 200/25 Blst.W.Dev) 1 puff INHALE RDAILY [facility] Last Admin: 04/14/22 08:23 Dose: 1 puff Documented By: CHANTAL Guaifenesin (Guaifenesin La 600 Mg Tab.Er.12h) 600 mg PO Q12H PRN PRN Reason: Congestion Last Admin: 04/14/22 08:47 Dose: 600 mg Documented By: JOHANA Hydromorphone HCl (Hydromorphone Hcl 0.5 Mg/0.5 Ml Syringe) 1 mg IVPUSH Q3H PRN; Protocol PRN Reason: Pain, Severe (Pain Scale 7-10) Last Admin: 04/14/22 07:51 Dose: 1 mg Documented By: JOHANA Lorazepam (Lorazepam 2 Mg/Ml Vial) 0.5 mg IVPUSH Q6H PRN PRN Reason: Anxiety Last Admin: 04/13/22 15:28 Dose: 0.5 mg Documented By: LEILANI Metoprolol Succinate (Metoprolol Succinate Er 25 Mg Tab.Er.24h) 25 mg PO DAILY [facility]; Protocol Last Admin: 04/14/22 07:55 Dose: 25 mg Documented By: JOHANA Multivitamins/Vitamin C (Multivitamin Tablet) 1 tab PO DAILY [facility] Last Admin: 04/14/22 07:55 Dose: 1 tab Documented By: JOHANA Omeprazole (Omeprazole 20 Mg Capsule.Dr) 20 mg PO DAILY@0630 [facility] Last Admin: 04/14/22 06:09 Dose: 20 mg Documented By: SHAR Ondansetron HCl (Ondansetron Hcl 4 Mg/2 Ml Vial) 4 mg IVPUSH QID PRN PRN Reason: Nausea Last Admin: 04/12/22 18:41 Dose: 4 mg Documented By: LEILANI Pharmacy Consult (Consult Rx Perform Med Rec) 1 each MISCELLANE ONCE PRN PRN Reason: Consult order Simethicone (Simethicone 80 Mg Tab.Chew) 240 mg PO QIDWMHS PRN PRN Reason: Gas Last Admin: 04/12/22 08:43 Dose: 240 mg Documented By: LEILANI Sodium Chloride (0.9 % Sodium Chloride Flush 3 Ml Syringe) 3 ml IVFLUSH QSHIFT [facility] Last Admin: 04/14/22 07:55 Dose: 3 ml Documented By: JOHANA Sucralfate (Sucralfate 1 Gm Tablet) 1 gm PO BID [facility] Last Admin: 04/14/22 07:55 Dose: 1 gm Documented By: JOHANA Vitamin D (Cholecalciferol (Vitamin D3) 25 Mcg Tablet) 125 mcg PO DAILY [facility] Last Admin: 04/14/22 07:56 Dose: 125 mcg Documented By: JOHANA Zolpidem Tartrate (Zolpidem Tartrate 5 Mg Tablet) 5 mg PO BEDTIME PRN PRN Reason: Insomnia Labs 04/11/22 05:07 04/10/22 04:59 Assessment and Plan (1) SBO (small bowel obstruction): Status: Acute (2) Bronchitis: Status: Acute Plan 71-year-old female with PMH significant for colon cancer with colectomy, vaginal cancer, interstitial lung disease, hx of SBO, who presetned to the ED with c omplaints of severe 10/10 abdominal pain lower abdomen associated with bloody stool.? Workup and imaging were consistent partial small-bowel obstruction due to adhesions.? Pt admitted by General Surgery for management of SBO. Hospital consult for medical management. Pt has no acute complaints outside of those relating to SBO. 1.SBO -Still with mild nausea -further treatment as per surgery -continue current diet is ordered 2.Interstitial lung disease -acceptable room-air sats -continue Breo as ordered -albuterol for rescue 3.Acute bronchitis(resolved) -completed course of oral doxycycline. .. Asymptomatic compression boots. full code Disposition as per General surgery. Time Spent With Patient Time: Total time managing care of this patient today ____ minutes. Quality Stroke Does the patient have a stroke diagnosis?: No VTE Prior VTE?: No VTE Risk Level:: Surgical - moderate VTE Device Contraindication: N/A - Device Ordered VTE Drug Contraindication: Treatment Not Indicated
[2022-04-14 15:19] VITALS: BP 132/79; PULSE 70; RESP 16; TEMP 36.4; O2SAT 94
[2022-04-14] MEDS: Simethicone 80 MG TAB.CHEW 240 MG PO (17:42)
[2022-04-14] MEDS: Magnesium Hydrox/Alum Hydrox 30 ML ORAL.SUSP PO (17:42)
[2022-04-14 19:00] VITALS: BP 128/80; PULSE 73; RESP 15; TEMP 36.6; O2SAT 94
[2022-04-15] MEDS: LORazepam 2 MG/ML VIAL 0.5 MG IVPUSH (03:30)
[2022-04-15 03:50] VITALS: BP 133/68; PULSE 75; RESP 16; TEMP 36.8; O2SAT 98
[2022-04-15] MEDS: Omeprazole 20 MG CAPSULE.DR PO (05:04)
[2022-04-15 06:15] LABS: MANUAL DIFF FLAG NO
[2022-04-15 06:21] LABS: Basophils Percent Auto 0.2 % (0-2); Eosinophils Absolute Auto 0.1 X10*3/uL (0.0-0.4); Eosinophils Percent Auto 2.3 % (0-4); Hematocrit 31.6 % (37.0-47.0); Hemoglobin 10.4 g/dl (12.0-16.0); Imm Gran Abs Auto 0.02 X10*3/uL (0.00-0.03); Imm Gran Pct Auto 0.4 % (0.0-0.4); Lymphocytes Percent Auto 19.7 % (20-40); Mean Corpuscular HGB Conc 32.9 g/dl (31.0-35.0); Mean Corpuscular Hemoglobin 32.3 pg (27.0-33.0); Mean Corpuscular Volume 98.1 fL (80.0-98.0); Mean Platelet Volume 9.2 fL (9.4-12.3); Monocytes Absolute Auto 0.6 X10*3/uL (0.1-1.2); Monocytes Percent Auto 11.3 % (2-11); Neutrophils Absolute Auto 3.5 x10*3/uL (2.0-8.3); Neutrophils Percent Auto 66.1 % (45-73); Platelet Count 206 X10*3/uL (160-400); Red Blood Count 3.22 X10*6/uL (4.20-5.50); Red Cell Distribution Width 12.6 % (11.0-16.0); White Blood Count 5.3 X10*3/uL (4.8-10.8)
[2022-04-15 06:45] LABS: Alanine Aminotransferase 33 U/L (0-31); Albumin Level 3.2 g/dL (3.5-5.0); Alkaline Phosphatase 92 U/L (39-117); Anion Gap 13 (12-20); Aspartate Amino Transferase 40 U/L (5-31); Bilirubin Total 0.4 mg/dL (0.0-1.0); Blood Urea Nitrogen 10 mg/dL (9-16); Calcium 8.5 mg/dL (8.4-10.2); Carbon Dioxide 26 mmol/L (22-29); Chloride 102 mmol/L (96-108); Creatinine Clr Calc Pharmacy 63.8; Estimated Glomerular Filt Rate > 60; Glucose Fasting 75 mg/dL (60-99); Sodium 137 mmol/L (135-145); Total Protein 6.6 g/dL (6.5-8.0)
[2022-04-15 08:00] VITALS: BP 114/68; PULSE 87; RESP 18; TEMP 36.5; O2SAT 95
[2022-04-15] MEDS: Fluticasone/Vilanterol 200/25 BLST.W.DEV 1 PUFF INHALE (08:03)
[2022-04-15 08:05] VITALS: PULSE 96; RESP 18; O2SAT 93
[2022-04-15] MEDS: Aspirin Enteric Coated 81 MG TABLET.DR PO (08:32)
[2022-04-15] MEDS: Lipase/Prot/Amylase 24/76/120K 1 CAP CAPSULE.DR PO ×3 (08:32→17:12)
[2022-04-15] MEDS: Cholecalciferol (Vitamin D3) 25 MCG TABLET 125 MCG PO (08:33)
[2022-04-15] MEDS: Sucralfate 1 GM TABLET PO ×2 (08:33→21:31)
[2022-04-15] MEDS: 0.9 % Sodium Chloride Flush 3 ML SYRINGE IVFLUSH ×2 (08:34→21:48)
[2022-04-15] MEDS: Multivitamin TABLET 1 TAB PO (08:34)
[2022-04-15] MEDS: Metoprolol Succinate ER 25 MG TAB.ER.24H PO (08:34)
[2022-04-15] MEDS: Magnesium Hydrox/Alum Hydrox 30 ML ORAL.SUSP PO (08:57)
[2022-04-15] MEDS: Simethicone 80 MG TAB.CHEW 240 MG PO ×2 (08:57→14:18)
[2022-04-15] MEDS: ondansetron HCL 4 MG/2 ML VIAL IVPUSH (08:57)
[2022-04-15] MEDS: HYDROmorphone HCl 0.5 MG/0.5 ML SYRINGE 1 MG IVPUSH ×4 (08:58→21:40)
--- NOTE | 2022-04-15 10:43 | P.PNIM_ITS ---
Subjective Subjective Date of Service: 04/15/22 Interval History: Nausea improved. Asking to advance diet Review of Systems Denies chest pain Denies shortness of breath Denies nausea vomiting diarrhea Denies fever chills Physical Exam Vital Signs: Vital Signs: Last Vital Signs Temp 97.7 F 04/15/22 08:00 Pulse 96 04/15/22 08:05 Resp 18 04/15/22 08:05 BP 114/68 04/15/22 08:00 Pulse Ox 95 04/15/22 08:00 O2 Del Method 04/15/22 08:00 BMI result Body Mass Index 27.3 Const: Other: Awake alert no acute distress Resp: Other: Clear to auscultation bilaterally no rales rhonchi or wheezes Cardio: Other: No S4; positive S1-S2; no S3 murmurs rubs or gallops GI: Other: Soft mildly tender without rebound. Bowel sounds quiet Extrem: Other: No edema bilaterally Objective Data Active Medications Acetaminophen (Acetaminophen 325 Mg Tablet) 650 mg PO Q6H PRN PRN Reason: Pain, Mild (Pain Scale 1-3) Al Hydroxide/Mg Hydroxide (Magnesium Hydrox/Alum Hydrox 30 Ml Oral.Susp) 30 ml PO Q4H PRN PRN Reason: GI Upset Last Admin: 04/15/22 08:57 Dose: 30 ml Documented By: JOHANA Albuterol Sulfate (Albuterol Sulfate 90 Mcg 8 Gm Inhaler) 2 puff INHALE Q4H PRN PRN Reason: for wheezing Lipase/Protease/Amylase (Lipase/Prot/Amylase 24/76/120k 1 Cap Capsule.) 1 cap PO TIDAC [facility] Last Admin: 04/15/22 08:32 Dose: 1 cap Documented By: JOHANA Aspirin (Aspirin Enteric Coated 81 Mg Tablet.) 81 mg PO DAILY [facility] Last Admin: 04/15/22 08:32 Dose: 81 mg Documented By: JOHANA Benzonatate (Benzonatate 100 Mg Capsule) 100 mg PO TID PRN PRN Reason: Cough Last Admin: 04/14/22 08:46 Dose: 100 mg Documented By: JOHANA Fluticasone Propionate (Fluticasone Propionate Nasal 16 Gm [place]) 1 spray NOSTRIL-B DAILY PRN PRN Reason: Allergy Symptoms Last Admin: 04/12/22 19:58 Dose: 1 spray Documented By: ALISONILYael Fluticasone/Vilanterol (Fluticasone/Vilanterol 200/25 Blst.W.Dev) 1 puff INHALE RDAILY [facility] Last Admin: 04/15/22 08:03 Dose: 1 puff Documented By: CHANTAL Guaifenesin (Guaifenesin [place] 600 Mg Tab.Er.12h) 600 mg PO Q12H PRN PRN Reason: Congestion Last Admin: 04/14/22 23:22 Dose: 600 mg Documented By: SHAR Hydromorphone HCl (Hydromorphone Hcl 0.5 Mg/0.5 Ml Syringe) 1 mg IVPUSH Q3H PRN; Protocol PRN Reason: Pain, Severe (Pain Scale 7-10) Last Admin: 04/15/22 08:58 Dose: 1 mg Documented By: JOHANA Lorazepam (Lorazepam 2 Mg/Ml Vial) 0.5 mg IVPUSH Q6H PRN PRN Reason: Anxiety Last Admin: 04/15/22 03:30 Dose: 0.5 mg Documented By: SHAR Metoprolol Succinate (Metoprolol Succinate Er 25 Mg Tab.Er.24h) 25 mg PO DAILY [facility]; Protocol Last Admin: 04/15/22 08:34 Dose: 25 mg Documented By: JOHANA Multivitamins/Vitamin C (Multivitamin Tablet) 1 tab PO DAILY [facility] Last Admin: 04/15/22 08:34 Dose: 1 tab Documented By: JOHANA Omeprazole (Omeprazole 20 Mg Capsule.Dr) 20 mg PO DAILY@0630 [facility] Last Admin: 04/15/22 05:04 Dose: 20 mg Documented By: SHAR Ondansetron HCl (Ondansetron Hcl 4 Mg/2 Ml Vial) 4 mg IVPUSH QID PRN PRN Reason: Nausea Last Admin: 04/15/22 08:57 Dose: 4 mg Documented By: JOHANA Pharmacy Consult (Consult Rx Perform Med Rec) 1 each MISCELLANE ONCE PRN PRN Reason: Consult order Simethicone (Simethicone 80 Mg Tab.Chew) 240 mg PO QIDWMHS PRN PRN Reason: Gas Last Admin: 04/15/22 08:57 Dose: 240 mg Documented By: JOHANA Sodium Chloride (0.9 % Sodium Chloride Flush 3 Ml Syringe) 3 ml IVFLUSH QSHIFT [facility] Last Admin: 04/15/22 08:34 Dose: 3 ml Documented By: JOHANA Sucralfate (Sucralfate 1 Gm Tablet) 1 gm PO BID [facility] Last Admin: 04/15/22 08:33 Dose: 1 gm Documented By: JOHANA Vitamin D (Cholecalciferol (Vitamin D3) 25 Mcg Tablet) 125 mcg PO DAILY [facility] Last Admin: 04/15/22 08:33 Dose: 125 mcg Documented By: JOHANA Zolpidem Tartrate (Zolpidem Tartrate 5 Mg Tablet) 5 mg PO BEDTIME PRN PRN Reason: Insomnia Labs 04/15/22 05:01 04/15/22 05:01 Labs: Laboratory Results - last 24 hr 04/15/22 04/15/22 05:01 05:01 MCV 98.1 H MCH 32.3 MCHC 32.9 RDW 12.6 Plt Count 206 MPV 9.2 L Immature Gran % (Auto) 0.4 Neut % (Auto) 66.1 Lymph % (Auto) 19.7 L [place] % (Auto) 11.3 H Eos % (Auto) 2.3 Baso % (Auto) 0.2 Lymph # (Auto) 1.0 L [place] # (Auto) 0.6 Eos # (Auto) 0.1 Baso # (Auto) 0.0 Abs Immat Gran (auto) 0.02 Absolute Neuts (auto) 3.5 Absolute Nucleated RBC 0.000 Nucleated RBC % (auto) 0.0 Anion Gap 13 Estim Creat Clear Calc 63.8 Estimated GFR > 60 Fasting Glucose 75 Calcium 8.5 Total Bilirubin 0.4 AST 40 H ALT 33 H Alkaline Phosphatase 92 Total Protein 6.6 Albumin 3.2 L Assessment and Plan (1) SBO (small bowel obstruction): Status: Acute (2) Bronchitis: Status: Acute Plan 71-year-old female with PMH significant for colon cancer with colectomy, vaginal cancer, interstitial lung disease, hx of SBO, who presetned to the ED with complaints of severe 10/10 abdominal pain lower abdomen associated with bloody stool.? Workup and imaging were consistent partial small-bowel obstruction due to adhesions.? Pt admitted by General Surgery for management of SBO. Hospital consult for medical management. Pt has no acute complaints outside of those relating to SBO. 1.SBO -nausea improved. . . Requesting advancement of diet -further treatment as per surgery -continue current diet is ordered pending surgery eval 2.Interstitial lung disease -acceptable room-air sats -continue Breo as ordered -albuterol for rescue 3.Acute bronchitis(resolved) -completed course of oral doxycycline. .. Asymptomatic compression boots. full code Disposition as per General surgery. Time Spent With Patient Time: Total time managing care of this patient today ____ minutes. Quality Stroke Does the patient have a stroke diagnosis?: No VTE Prior VTE?: No VTE Risk Level:: Surgical - moderate VTE Device Contraindication: N/A - Device Ordered VTE Drug Contraindication: Treatment Not Indicated
--- NOTE | 2022-04-15 10:51 | P.PNGS_ITS ---
Subjective Subjective Date of Service: 04/15/22 Patient reports: feels better, still having pain and flatus Interval history: The patient is seen in coverage for Dr. Gill She reports that isn't drinking much of the clear liquids because they are too sweet and still is experiencing abdominal pain. She did have some flatus and a bowel movement and requested her diet be advanced to full liquids. She otherwise denies chest pain, difficulty breathing, shortness of breath. Physical Exam Vital Signs: Vital Signs: Last Vital Signs Temp 97.7 F 04/15/22 08:00 Pulse 96 04/15/22 08:05 Resp 18 04/15/22 08:05 BP 114/68 04/15/22 08:00 Pulse Ox 95 04/15/22 08:00 O2 Del Method 04/15/22 08:00 BMI result Body Mass Index 27.3 She is nontoxic and in good spirits She has no acute respiratory issues or distress Abdomen is soft and nontender she reports some vague cramps but no rebound, rigidity or guarding. No abdominal tympany is noted Objective Data Active Medications Acetaminophen (Acetaminophen 325 Mg Tablet) 650 mg PO Q6H PRN PRN Reason: Pain, Mild (Pain Scale 1-3) Al Hydroxide/Mg Hydroxide (Magnesium Hydrox/Alum Hydrox 30 Ml Oral.Susp) 30 ml PO Q4H PRN PRN Reason: GI Upset Last Admin: 04/15/22 08:57 Dose: 30 ml Documented By: JOHANA Albuterol Sulfate (Albuterol Sulfate 90 Mcg 8 Gm Inhaler) 2 puff INHALE Q4H PRN PRN Reason: for wheezing Lipase/Protease/Amylase (Lipase/Prot/Amylase 24/76/120k 1 Cap Capsule.) 1 cap PO TIDAC [facility] Last Admin: 04/15/22 08:32 Dose: 1 cap Documented By: JOHANA Aspirin (Aspirin Enteric Coated 81 Mg Tablet.) 81 mg PO DAILY [facility] Last Admin: 04/15/22 08:32 Dose: 81 mg Documented By: JOHANA Benzonatate (Benzonatate 100 Mg Capsule) 100 mg PO TID PRN PRN Reason: Cough Last Admin: 04/14/22 08:46 Dose: 100 mg Documented By: JOHANA Fluticasone Propionate (Fluticasone Propionate Nasal 16 Gm [place]) 1 spray NOSTRIL-B DAILY PRN PRN Reason: Allergy Symptoms Last Admin: 04/12/22 19:58 Dose: 1 spray Documented By: CASTILM Fluticasone/Vilanterol (Fluticasone/Vilanterol 200/25 Blst.W.Dev) 1 puff INHALE RDAILY [facility] Last Admin: 04/15/22 08:03 Dose: 1 puff Documented By: CHANTAL Guaifenesin (Guaifenesin La 600 Mg Tab.Er.12h) 600 mg PO Q12H PRN PRN Reason: Congestion Last Admin: 04/14/22 23:22 Dose: 600 mg Documented By: SHAR Hydromorphone HCl (Hydromorphone Hcl 0.5 Mg/0.5 Ml Syringe) 1 mg IVPUSH Q3H PRN; Protocol PRN Reason: Pain, Severe (Pain Scale 7-10) Last Admin: 04/15/22 08:58 Dose: 1 mg Documented By: JOHANA Lorazepam (Lorazepam 2 Mg/Ml Vial) 0.5 mg IVPUSH Q6H PRN PRN Reason: Anxiety Last Admin: 04/15/22 03:30 Dose: 0.5 mg Documented By: SHAR Metoprolol Succinate (Metoprolol Succinate Er 25 Mg Tab.Er.24h) 25 mg PO DAILY [facility]; Protocol Last Admin: 04/15/22 08:34 Dose: 25 mg Documented By: JOHANA Multivitamins/Vitamin C (Multivitamin Tablet) 1 tab PO DAILY [facility] Last Admin: 04/15/22 08:34 Dose: 1 tab Documented By: JOHANA Omeprazole (Omeprazole 20 Mg Capsule.Dr) 20 mg PO DAILY@0630 [facility] Last Admin: 04/15/22 05:04 Dose: 20 mg Documented By: SHAR Ondansetron HCl (Ondansetron Hcl 4 Mg/2 Ml Vial) 4 mg IVPUSH QID PRN PRN Reason: Nausea Last Admin: 04/15/22 08:57 Dose: 4 mg Documented By: JOHANA Pharmacy Consult (Consult Rx Perform Med Rec) 1 each MISCELLANE ONCE PRN PRN Reason: Consult order Simethicone (Simethicone 80 Mg Tab.Chew) 240 mg PO QIDWMHS PRN PRN Reason: Gas Last Admin: 04/15/22 08:57 Dose: 240 mg Documented By: JOHANA Sodium Chloride (0.9 % Sodium Chloride Flush 3 Ml Syringe) 3 ml IVFLUSH QSHIFT [facility] Last Admin: 04/15/22 08:34 Dose: 3 ml Documented By: JOHANA Sucralfate (Sucralfate 1 Gm Tablet) 1 gm PO BID [facility] Last Admin: 04/15/22 08:33 Dose: 1 gm Documented By: JOHANA Vitamin D (Cholecalciferol (Vitamin D3) 25 Mcg Tablet) 125 mcg PO DAILY [facility] Last Admin: 04/15/22 08:33 Dose: 125 mcg Documented By: JOHANA Zolpidem Tartrate (Zolpidem Tartrate 5 Mg Tablet) 5 mg PO BEDTIME PRN PRN Reason: Insomnia Labs 04/15/22 05:01 04/15/22 05:01 Labs: Laboratory Results - last 24 hr 04/15/22 04/15/22 05:01 05:01 MCV 98.1 H MCH 32.3 MCHC 32.9 RDW 12.6 Plt Count 206 MPV 9.2 L Immature Gran % (Auto) 0.4 Neut % (Auto) 66.1 Lymph % (Auto) 19.7 L [place] % (Auto) 11.3 H Eos % (Auto) 2.3 Baso % (Auto) 0.2 Lymph # (Auto) 1.0 L [place] # (Auto) 0.6 Eos # (Auto) 0.1 Baso # (Auto) 0.0 Abs Immat Gran (auto) 0.02 Absolute Neuts (auto) 3.5 Absolute Nucleated RBC 0.000 Nucleated RBC % (auto) 0.0 Anion Gap 13 Estim Creat Clear Calc 63.8 Estimated GFR > 60 Fasting Glucose 75 Calcium 8.5 Total Bilirubin 0.4 AST 40 H ALT 33 H Alkaline Phosphatase 92 Total Protein 6.6 Albumin 3.2 L Procedures Date of Service Date of Service: 04/15/22 Progress Note: A&P Assessment and plan (1) SBO (small bowel obstruction): Status: Acute (2) Radiation proctitis: Status: Acute Plan I have advanced the patient's diet to full liquids. Dr. Gill will resume care April 16, 2022. Time Spent With Patient Time: Total time managing care of this patient today ____ minutes. Quality Stroke Does the patient have a stroke diagnosis?: No VTE Prior VTE?: No VTE Risk Level:: Surgical - moderate VTE Device Contraindication: N/A - Device Ordered VTE Drug Contraindication: Treatment Not Indicated
[2022-04-15 15:27] VITALS: BP 129/67; PULSE 74; RESP 16; TEMP 36.1; O2SAT 98
[2022-04-15 19:03] VITALS: BP 117/72; PULSE 76; RESP 16; TEMP 36.9; O2SAT 97
[2022-04-16] MEDS: guaiFENesin LA 600 MG TAB.ER.12H PO ×2 (01:13→16:13)
[2022-04-16] MEDS: Benzonatate 100 MG CAPSULE PO ×3 (01:13→19:29)
[2022-04-16] MEDS: HYDROmorphone HCl 0.5 MG/0.5 ML SYRINGE 1 MG IVPUSH (01:19)
[2022-04-16 04:00] VITALS: BP 138/63; PULSE 83; RESP 16; TEMP 37; O2SAT 96
[2022-04-16] MEDS: Lipase/Prot/Amylase 24/76/120K 1 CAP CAPSULE.DR PO ×3 (06:36→16:13)
[2022-04-16] MEDS: Omeprazole 20 MG CAPSULE.DR PO (06:36)
[2022-04-16] MEDS: Fluticasone/Vilanterol 200/25 BLST.W.DEV 1 PUFF INHALE (07:55)
[2022-04-16 07:57] VITALS: PULSE 67; RESP 16; O2SAT 97
[2022-04-16 08:00] VITALS: BP 113/62; PULSE 84; RESP 18; TEMP 37; O2SAT 94
[2022-04-16] MEDS: Metoprolol Succinate ER 25 MG TAB.ER.24H PO (08:34)
[2022-04-16] MEDS: Sucralfate 1 GM TABLET PO ×2 (08:34→19:25)
[2022-04-16] MEDS: 0.9 % Sodium Chloride Flush 3 ML SYRINGE IVFLUSH ×3 (08:36→19:32)
[2022-04-16] MEDS: Multivitamin TABLET 1 TAB PO (08:36)
--- NOTE | 2022-04-16 09:45 | P.PNGS_ITS ---
Subjective Subjective Date of Service: 04/16/22 <Vaishali Rodriguez PA-C - Last Filed: 04/16/22 09:49> 04/16/22 <Maximo Gill MD - Last Filed: 04/16/22 10:11> Interval history: C/o dizziness and nausea. Thinks nausea is related to dizziness. Reports she has been dizzy for 6 months. has not seen PCP. Aggravated by position changes. Denies vision changes. Denies abd pain but reports tender when palpated. Passing flatus and last BM saturday. <Vaishali Rodriguez PA-C - Last Filed: 04/16/22 09:49> Physical Exam Vital Signs: Vital Signs: Last Vital Signs Temp 98.6 F 04/16/22 08:00 Pulse 84 04/16/22 08:00 Resp 18 04/16/22 08:00 BP 113/62 04/16/22 08:00 Pulse Ox 94 04/16/22 08:00 O2 Del Method 04/16/22 08:00 BMI result Body Mass Index 27.3 <Vaishali Rodriguez PA-C - Last Filed: 04/16/22 09:49> Const: General: comfortable, no acute distress and alert <RONN Hernandez Last Filed: 04/16/22 09:49> Orientation/consciousness: patient oriented x3 <RONN Hernandez Last Filed: 04/16/22 09:49> Resp: Effort & Inspection: normal respiratory effort <RONN Hernandez Last Filed: 04/16/22 09:49> GI: Inspection: No distended <RONN Hernandez Last Filed: 04/16/22 09:49> Palpation (GI): Soft to palpation, nontender, no guarding and not rigid <RONN Hernandez Last Filed: 04/16/22 09:49> Skin: General skin exam: no rashes or lesions noted <RONN Hernandez Last Filed: 04/16/22 09:49> Neuro: General: patient oriented x3 and moves all extremities <RONN Dangelo Last Filed: 04/16/22 09:49> Objective Data Active Medications Acetaminophen (Acetaminophen 325 Mg Tablet) 650 mg PO Q6H PRN PRN Reason: Pain, Mild (Pain Scale 1-3) Al Hydroxide/Mg Hydroxide (Magnesium Hydrox/Alum Hydrox 30 Ml Oral.Susp) 30 ml PO Q4H PRN PRN Reason: GI Upset Last Admin: 04/15/22 08:57 Dose: 30 ml Documented By: JOHANA Albuterol Sulfate (Albuterol Sulfate 90 Mcg 8 Gm Inhaler) 2 puff INHALE Q4H PRN PRN Reason: for wheezing Lipase/Protease/Amylase (Lipase/Prot/Amylase 24/76/120k 1 Cap Capsule.) 1 cap PO TIDAC [facility] Last Admin: 04/16/22 06:36 Dose: 1 cap Documented By: SVEN Aspirin (Aspirin Enteric Coated 81 Mg Tablet.) 81 mg PO DAILY [facility] Last Admin: 04/16/22 08:31 Dose: Not Given Documented By: GERALDO Non-Admin Reason: Patient Refused Benzonatate (Benzonatate 100 Mg Capsule) 100 mg PO TID PRN PRN Reason: Cough Last Admin: 04/16/22 01:13 Dose: 100 mg Documented By: SVEN Fluticasone Propionate (Fluticasone Propionate Nasal 16 Gm [place]) 1 spray NOSTRIL-B DAILY PRN PRN Reason: Allergy Symptoms Last Admin: 04/12/22 19:58 Dose: 1 spray Documented By: CASTILM Fluticasone/Vilanterol (Fluticasone/Vilanterol 200/25 Blst.W.Dev) 1 puff INHALE RDAILY [facility] Last Admin: 04/16/22 07:55 Dose: 1 puff Documented By: ROHAN Guaifenesin (Guaifenesin La 600 Mg Tab.Er.12h) 600 mg PO Q12H PRN PRN Reason: Congestion Last Admin: 04/16/22 01:13 Dose: 600 mg Documented By: SVEN Hydromorphone HCl (Hydromorphone Hcl 0.5 Mg/0.5 Ml Syringe) 1 mg IVPUSH Q3H PRN; Protocol PRN Reason: Pain, Severe (Pain Scale 7-10) Last Admin: 04/16/22 01:19 Dose: 1 mg Documented By: SVEN Lorazepam (Lorazepam 2 Mg/Ml Vial) 0.5 mg IVPUSH Q6H PRN PRN Reason: Anxiety Last Admin: 04/15/22 03:30 Dose: 0.5 mg Documented By: SHAR Metoprolol Succinate (Metoprolol Succinate Er 25 Mg Tab.Er.24h) 25 mg PO DAILY [facility]; Protocol Last Admin: 04/16/22 08:34 Dose: 25 mg Documented By: GERALDO Multivitamins/Vitamin C (Multivitamin Tablet) 1 tab PO DAILY [facility] Last Admin: 04/16/22 08:36 Dose: 1 tab Documented By: GERALDO Omeprazole (Omeprazole 20 Mg Capsule.Dr) 20 mg PO DAILY@0630 [facility] Last Admin: 04/16/22 06:36 Dose: 20 mg Documented By: SVEN Ondansetron HCl (Ondansetron Hcl 4 Mg/2 Ml Vial) 4 mg IVPUSH QID PRN PRN Reason: Nausea Last Admin: 04/15/22 08:57 Dose: 4 mg Documented By: JOHANA Pharmacy Consult (Consult Rx Perform Med Rec) 1 each MISCELLANE ONCE PRN PRN Reason: Consult order Simethicone (Simethicone 80 Mg Tab.Chew) 240 mg PO QIDWMHS PRN PRN Reason: Gas Last Admin: 04/15/22 14:18 Dose: 240 mg Documented By: JOHANA Sodium Chloride (0.9 % Sodium Chloride Flush 3 Ml Syringe) 3 ml IVFLUSH QSHIFT [facility] Last Admin: 04/16/22 08:36 Dose: 3 ml Documented By: GERALDO Sucralfate (Sucralfate 1 Gm Tablet) 1 gm PO BID [facility] Last Admin: 04/16/22 08:34 Dose: 1 gm Documented By: GERALDO Vitamin D (Cholecalciferol (Vitamin D3) 25 Mcg Tablet) 125 mcg PO DAILY [facility] Last Admin: 04/16/22 08:32 Dose: Not Given Documented By: GERALDO Non-Admin Reason: Patient Refused Zolpidem Tartrate (Zolpidem Tartrate 5 Mg Tablet) 5 mg PO BEDTIME PRN PRN Reason: Insomnia <Vaishali Rodriguez PA-C - Last Filed: 04/16/22 09:49> Labs CBC & Chem 7: 04/15/22 05:01 04/15/22 05:01 <Vaishali Rodriguez PA-C - Last Filed: 04/16/22 09:49> Procedures Date of Service Date of Service: 04/16/22 <Vaishali Rodriguez PA-C - Last Filed: 04/16/22 09:49> Progress Note: A&P Assessment and plan (1) SBO (small bowel obstruction): Status: Acute <Vaishali Rodriguez PA-C - Last Filed: 04/16/22 09:49> Assessment and Plan: 71 year old female admitted with SBO. Symptoms waxing and waning. SB s eries showed Sb patent, contrast in colon. Reports some improvement, last BM Saturday. Abd very benign today. Try low residue diet today. Meclizine for dizziness. Ask hospitalists to reassess regarding dizziness. Last set of labs WNL. <Vaishali Rodriguez PA-C - Last Filed: 04/16/22 09:49> 71 year old female admitted with SBO. Symptoms waxing and waning. SB series showed Sb patent, contrast in colon. Reports some improvement, last BM Saturday. Abd very benign today. Try low residue diet today. Meclizine for dizziness. Ask hospitalists to reassess regarding dizziness. Last set of labs WNL. Agree with the above assessment and plan. Overall patient feels improved after having several bowel movements over the weekend. She does have occasional episodes of abdominal pain but not as bad as previously experienced. She is to lerating full liquid diet and would like to try a regular diet today. Abdomen is soft and nondistended, nontender. <Maximo Gill MD - Last Filed: 04/16/22 10:11> Time Spent With Patient Time: Total time managing care of this patient today ____ minutes. <Vaishali Rodriguez PA-C - Last Filed: 04/16/22 09:49> Quality Stroke Does the patient have a stroke diagnosis?: No <Vaishali Rodriguez PA-C - Last Filed: 04/16/22 09:49> VTE Prior VTE?: No <Vaishali Rodriguez PA-C - Last Filed: 04/16/22 09:49> VTE Risk Level:: Surgical - moderate <RONN Hernandez Last Filed: 04/16/22 09:49> VTE Device Contraindication: N/A - Device Ordered <RONN Hernandez Last Filed: 04/16/22 09:49> VTE Drug Contraindication: Treatment Not Indicated <Vaishali Rodriguez PA-C - Last Filed: 04/16/22 09:49>
[2022-04-16] MEDS: Cholecalciferol (Vitamin D3) 25 MCG TABLET 125 MCG PO (10:33)
[2022-04-16] MEDS: LORazepam 2 MG/ML VIAL 0.5 MG IVPUSH ×2 (10:34→23:11)
[2022-04-16] MEDS: Meclizine HCl 25 MG TABLET PO ×2 (10:38→16:13)
--- NOTE | 2022-04-16 12:00 | HO.PM.IMPN ---
Subjective Subjective Date of Service: 04/16/22 Interval History: Doing fairly well with diet advancement. Complains of dizziness; this has been fully worked up as an outpatient and passed. Response to meclizine Review of Systems Denies chest pain Denies shortness of breath Denies nausea vomiting diarrhea Denies fever chills Physical Exam Vital Signs: Vital Signs: Last Vital Signs Temp 98.6 F 04/16/22 08:00 Pulse 84 04/16/22 08:00 Resp 18 04/16/22 08:00 BP 113/62 04/16/22 08:00 Pulse Ox 94 04/16/22 08:00 O2 Del Method 04/16/22 08:00 BMI result Body Mass Index 27.3 Const: Other: Awake alert no acute distress Resp: Other: Clear to auscultation bilaterally no rales rhonchi or wheezes Cardio: Other: No S4; positive S1-S2; no S3 murmurs rubs or gallops GI: Other: Soft mildly tender without rebound. Bowel sounds quiet Extrem: Other: No edema bilaterally Objective Data Active Medications Acetaminophen (Acetaminophen 325 Mg Tablet) 650 mg PO Q6H PRN PRN Reason: Pain, Mild (Pain Scale 1-3) Al Hydroxide/Mg Hydroxide (Magnesium Hydrox/Alum Hydrox 30 Ml Oral.Susp) 30 ml PO Q4H PRN PRN Reason: GI Upset Last Admin: 04/15/22 08:57 Dose: 30 ml Documented By: JOHANA Albuterol Sulfate (Albuterol Sulfate 90 Mcg 8 Gm Inhaler) 2 puff INHALE Q4H PRN PRN Reason: for wheezing Lipase/Protease/Amylase (Lipase/Prot/Amylase 24/76/120k 1 Cap Capsule.) 1 cap PO TIDAC [facility] Last Admin: 04/16/22 10:33 Dose: 1 cap Documented By: GERALDO Aspirin (Aspirin Enteric Coated 81 Mg Tablet.) 81 mg PO DAILY [facility] Last Admin: 04/16/22 08:31 Dose: Not Given Documented By: GERALDO Non-Admin Reason: Patient Refused Benzonatate (Benzonatate 100 Mg Capsule) 100 mg PO TID PRN PRN Reason: Cough Last Admin: 04/16/22 10:38 Dose: 100 mg Documented By: GERALDO Fluticasone Propionate (Fluticasone Propionate Nasal 16 Gm [place]) 1 spray NOSTRIL-B DAILY PRN PRN Reason: Allergy Symptoms Last Admin: 04/12/22 19:58 Dose: 1 spray Documented By: ZEB Fluticasone/Vilanterol (Fluticasone/Vilanterol 200/25 Blst.W.Dev) 1 puff INHALE [facility]DA[facility] Last Admin: 04/16/22 07:55 Dose: 1 puff Documented By: ROHAN Guaifenesin (Guaifenesin La 600 Mg Tab.Er.12h) 600 mg PO Q12H PRN PRN Reason: Congestion Last Admin: 04/16/22 01:13 Dose: 600 mg Documented By: SVEN Hydromorphone HCl (Hydromorphone Hcl 0.5 Mg/0.5 Ml Syringe) 1 mg IVPUSH Q3H PRN; Protocol PRN Reason: Pain, Severe (Pain Scale 7-10) Last Admin: 04/16/22 01:19 Dose: 1 mg Documented By: SVEN Lorazepam (Lorazepam 2 Mg/Ml Vial) 0.5 mg IVPUSH Q6H PRN PRN Reason: Anxiety Last Admin: 04/16/22 10:34 Dose: 0.5 mg Documented By: GERALDO Meclizine HCl (Meclizine Hcl 25 Mg Tablet) 25 mg PO Q6H PRN PRN Reason: dizziness Last Admin: 04/16/22 10:38 Dose: 25 mg Documented By: GERALDO Metoprolol Succinate (Metoprolol Succinate Er 25 Mg Tab.Er.24h) 25 mg PO DAILY [facility]; Protocol Last Admin: 04/16/22 08:34 Dose: 25 mg Documented By: GERALDO Multivitamins/Vitamin C (Multivitamin Tablet) 1 tab PO DAILY [facility] Last Admin: 04/16/22 08:36 Dose: 1 tab Documented By: GERALDO Omeprazole (Omeprazole 20 Mg Capsule.Dr) 20 mg PO DAILY@0630 [facility] Last Admin: 04/16/22 06:36 Dose: 20 mg Documented By: SVEN Ondansetron HCl (Ondansetron Hcl 4 Mg/2 Ml Vial) 4 mg IVPUSH QID PRN PRN Reason: Nausea Last Admin: 04/15/22 08:57 Dose: 4 mg Documented By: JOHANA Pharmacy Consult (Consult Rx Perform Med Rec) 1 each MISCELLANE ONCE PRN PRN Reason: Consult order Simethicone (Simethicone 80 Mg Tab.Chew) 240 mg PO QIDWMHS PRN PRN Reason: Gas Last Admin: 04/15/22 14:18 Dose: 240 mg Documented By: JOHANA Sodium Chloride (0.9 % Sodium Chloride Flush 3 Ml Syringe) 3 ml IVFLUSH QSHIFT [facility] Last Admin: 04/16/22 08:36 Dose: 3 ml Documented By: NASREEN-IDA Sucralfate (Sucralfate 1 Gm Tablet) 1 gm PO BID [facility] Last Admin: 04/16/22 08:34 Dose: 1 gm Documented By: GERALDO Vitamin D (Cholecalciferol (Vitamin D3) 25 Mcg Tablet) 125 mcg PO DAILY [facility] Last Admin: 04/16/22 10:33 Dose: 125 mcg Documented By: GERALDO Zolpidem Tartrate (Zolpidem Tartrate 5 Mg Tablet) 5 mg PO BEDTIME PRN PRN Reason: Insomnia Labs 04/15/22 05:01 04/15/22 05:01 Assessment and Plan (1) SBO (small bowel obstruction): Status: Acute (2) Bronchitis: Status: Acute Plan 71-year-old female with PMH significant for colon cancer with colectomy, vaginal cancer, interstitial lung disease, hx of SBO, who presetned to the ED with complaints of severe 10/10 abdominal pain lower abdomen associated with bloody stool.? Workup and imaging were consistent partial small-bowel obstruction due to adhesions.? Pt admitted by General Surgery for management of SBO. Hospital consult for medical management. Pt has no acute complaints outside of those relating to SBO. 1.SBO -nausea improved. . . Requesting advancement of diet -diet advanced to full liquids 2.Interstitial lung disease -acceptable room-air sats -continue Breo as ordered -albuterol for rescue 3.Acute bronchitis(resolved) -completed course of oral doxycycline. .. Asymptomatic compression boots. full code Disposition as per General surgery. Time Spent With Patient Time: Total time managing care of this patient today ____ minutes. Quality Stroke Does the patient have a stroke diagnosis?: No VTE Prior VTE?: No VTE Risk Level:: Surgical - moderate VTE Device Contraindication: N/A - Device Ordered VTE Drug Contraindication: Treatment Not Indicated
[2022-04-16 14:49] VITALS: BP 122/60; PULSE 84; RESP 18; O2SAT 100
[2022-04-16 19:11] VITALS: BP 122/84; PULSE 84; RESP 18; TEMP 36.3; O2SAT 98
[2022-04-16] MEDS: Simethicone 80 MG TAB.CHEW 240 MG PO (19:37)
[2022-04-17] MEDS: HYDROmorphone HCl 0.5 MG/0.5 ML SYRINGE 1 MG IVPUSH ×3 (01:19→23:33)
[2022-04-17 03:55] VITALS: RESP 20
[2022-04-17] MEDS: Omeprazole 20 MG CAPSULE.DR PO (05:47)
[2022-04-17] MEDS: Lipase/Prot/Amylase 24/76/120K 1 CAP CAPSULE.DR PO ×3 (05:47→17:57)
[2022-04-17 07:32] VITALS: BP 112/72; PULSE 82; RESP 20; TEMP 37.1; O2SAT 96
[2022-04-17 08:03] VITALS: PULSE 91; RESP 18; O2SAT 94
[2022-04-17] MEDS: Fluticasone/Vilanterol 200/25 BLST.W.DEV 1 PUFF INHALE (08:03)
[2022-04-17] MEDS: Cholecalciferol (Vitamin D3) 25 MCG TABLET 125 MCG PO (08:23)
[2022-04-17] MEDS: Metoprolol Succinate ER 25 MG TAB.ER.24H PO (08:23)
[2022-04-17] MEDS: Sucralfate 1 GM TABLET PO ×2 (08:23→19:35)
[2022-04-17] MEDS: 0.9 % Sodium Chloride Flush 3 ML SYRINGE IVFLUSH ×3 (08:24→19:35)
[2022-04-17] MEDS: Multivitamin TABLET 1 TAB PO (08:24)
[2022-04-17] MEDS: polyethylene glycoL 3350 17 GM POWD.PACK PO (08:51)
--- NOTE | 2022-04-17 09:01 | P.PNGS_ITS ---
Subjective Subjective Date of Service: 04/17/22 <Vaishali Rodriguez PA-C - Last Filed: 04/17/22 09:06> 04/17/22 <Maximo Gill MD - Last Filed: 04/17/22 10:54> Interval history: Feels better but feels as if food is not moving through . Passing flatus but no BM yesterday. Dizziness improved. Ambulating without difficulty. <Vaishali Rodriguez PA-C - Last Filed: 04/17/22 09:06> Physical Exam Vital Signs: Vital Signs: Last Vital Signs Temp 98.8 F 04/17/22 07:32 Pulse 91 04/17/22 08:03 Resp 18 04/17/22 08:03 BP 112/72 04/17/22 07:32 Pulse Ox 96 04/17/22 07:32 O2 Del Method 04/17/22 07:32 BMI result Body Mass Index 27.3 <Vaishali Rodriguez PA-C - Last Filed: 04/17/22 09:06> Const: General: no acute distress and alert <Vaishali Rodriguez PA-C - Last Filed: 04/17/22 09:06> Orientation/consciousness: patient oriented x3 <Vaishali Rodriguez PA-C - Last Filed: 04/17/22 09:06> Resp: Effort & Inspection: normal respiratory effort <Vaishali Rodriguez PA-C - Last Filed: 04/17/22 09:06> GI: Inspection: Yes distended (mild upper abd) <Vaishali Rodriguez PA-C - Last Filed: 04/17/22 09:06> Palpation (GI): Soft to palpation, nontender, no guarding and not rigid <Vaishali Rodriguez PA-C - Last Filed: 04/17/22 09:06> Skin: General skin exam: no rashes or lesions noted <RONN Hernandez Last Filed: 04/17/22 09:06> Neuro: General: patient oriented x3, moves all extremities and no focal motor deficits <RONN Hernandez Last Filed: 04/17/22 09:06> Objective Data Active Medications Acetaminophen (Acetaminophen 325 Mg Tablet) 650 mg PO Q6H PRN PRN Reason: Pain, Mild (Pain Scale 1-3) Al Hydroxide/Mg Hydroxide (Magnesium Hydrox/Alum Hydrox 30 Ml Oral.Susp) 30 ml PO Q4H PRN PRN Reason: GI Upset Last Admin: 04/15/22 08:57 Dose: 30 ml Documented By: JOHANA Albuterol Sulfate (Albuterol Sulfate 90 Mcg 8 Gm Inhaler) 2 puff INHALE Q4H PRN PRN Reason: for wheezing Lipase/Protease/Amylase (Lipase/Prot/Amylase 24/76/120k 1 Cap Capsule.) 1 cap PO TIDAC [facility] Last Admin: 04/17/22 05:47 Dose: 1 cap Documented By: SVEN Aspirin (Aspirin Enteric Coated 81 Mg Tablet.) 81 mg PO DAILY [facility] Last Admin: 04/17/22 08:22 Dose: Not Given Documented By: ТАТЬЯНА Non-Admin Reason: Patient Refused Benzonatate (Benzonatate 100 Mg Capsule) 100 mg PO TID PRN PRN Reason: Cough Last Admin: 04/16/22 19:29 Dose: 100 mg Documented By: SVEN Fluticasone Propionate (Fluticasone Propionate Nasal 16 Gm [place]) 1 spray NOSTRIL-B DAILY PRN PRN Reason: Allergy Symptoms Last Admin: 04/12/22 19:58 Dose: 1 spray Documented By: CASTDEE Fluticasone/Vilanterol (Fluticasone/Vilanterol 200/25 Blst.W.Dev) 1 puff INHALE RDAILY [facility] Last Admin: 04/17/22 08:03 Dose: 1 puff Documented By: ULDYAN Guaifenesin (Guaifenesin La 600 Mg Tab.Er.12h) 600 mg PO Q12H PRN PRN Reason: Congestion Last Admin: 04/16/22 16:13 Dose: 600 mg Documented By: NASREEN-RIVLA Hydromorphone HCl (Hydromorphone Hcl 0.5 Mg/0.5 Ml Syringe) 1 mg IVPUSH Q3H PRN; Protocol PRN Reason: Pain, Severe (Pain Scale 7-10) Last Admin: 04/17/22 01:19 Dose: 1 mg Documented By: SVEN Lorazepam (Lorazepam 2 Mg/Ml Vial) 0.5 mg IVPUSH Q6H PRN PRN Reason: Anxiety Last Admin: 04/16/22 23:11 Dose: 0.5 mg Documented By: SVEN Meclizine HCl (Meclizine Hcl 25 Mg Tablet) 25 mg PO Q6H PRN PRN Reason: dizziness Last Admin: 04/16/22 16:13 Dose: 25 mg Documented By: NASREEN-RIVCANDELARIO Metoprolol Succinate (Metoprolol Succinate Er 25 Mg Tab.Er.24h) 25 mg PO DAILY [facility]; Protocol Last Admin: 04/17/22 08:23 Dose: 25 mg Documented By: ТАТЬЯНА Multivitamins/Vitamin C (Multivitamin Tablet) 1 tab PO DAILY [facility] Last Admin: 04/17/22 08:24 Dose: 1 tab Documented By: ТАТЬЯНА Omeprazole (Omeprazole 20 Mg Capsule.Dr) 20 mg PO DAILY@0630 [facility] Last Admin: 04/17/22 05:47 Dose: 20 mg Documented By: SVEN Ondansetron HCl (Ondansetron Hcl 4 Mg/2 Ml Vial) 4 mg IVPUSH QID PRN PRN Reason: Nausea Last Admin: 04/15/22 08:57 Dose: 4 mg Documented By: JOHANA Pharmacy Consult (Consult Rx Perform Med Rec) 1 each MISCELLANE ONCE PRN PRN Reason: Consult order Polyethylene Glycol (Polyethylene Glycol 3350 17 Gm Powd.Pack) 17 gm PO DAILY [facility] Last Admin: 04/17/22 08:51 Dose: 17 gm Documented By: ТАТЬЯНА Simethicone (Simethicone 80 Mg Tab.Chew) 240 mg PO QIDWMHS PRN PRN Reason: Gas Last Admin: 04/16/22 19:37 Dose: 240 mg Documented By: SVEN Sodium Chloride (0.9 % Sodium Chloride Flush 3 Ml Syringe) 3 ml IVFLUSH QSHIFT [facility] Last Admin: 04/17/22 08:24 Dose: 3 ml Documented By: ТАТЬЯНА Sucralfate (Sucralfate 1 Gm Tablet) 1 gm PO BID [facility] Last Admin: 04/17/22 08:23 Dose: 1 gm Documented By: ТАТЬЯНА Vitamin D (Cholecalciferol (Vitamin D3) 25 Mcg Tablet) 125 mcg PO DAILY [facility] Last Admin: 04/17/22 08:23 Dose: 125 mcg Documented By: ТАТЬЯНА Zolpidem Tartrate (Zolpidem Tartrate 5 Mg Tablet) 5 mg PO BEDTIME PRN PRN Reason: Insomnia <Vaishali Rodriguez PA-C - Last Filed: 04/17/22 09:06> Labs CBC & Chem 7: 04/15/22 05:01 04/15/22 05:01 <Vaishali Rodriguez PA-C - Last Filed: 04/17/22 09:06> Procedures Date of Service Date of Service: 04/17/22 <Vaishali Rodriguez PA-C - Last Filed: 04/17/22 09:06> Progress Note: A&P Assessment and plan (1) SBO (small bowel obstruction): Status: Acute <RONN Hernandez Last Filed: 04/17/22 09:06> Assessment and Plan: 71 year old female admitted with partial SBO. Overall improved and tolerated solid diet yesterday and continues to pass flatus but reports increased bloating this morning after not moving bowels yesterday. Abd is soft, slightly rainey this morning but nontender. Will given enema, miralax. Dizziness improved with meclizine. If improved later today, will d/c on bowel regimen. <Vaishali Rodriguez PA-C - Last Filed: 04/17/22 09:06> 71 year old female admitted with partial SBO. Overall improved and tolerated solid diet yesterday and continues to pass flatus but reports increased bloating this morning after not moving bowels yesterday. Abd is soft, slightly rainey this morning but nontender. Will given enema, miralax. Dizziness improved with meclizine. If improved later today, will d/c on bowel regimen. Agree with the above assessment and plan. Patient is now tolerating regular diet. Feels full in the epigastrium; ? stool backup in transverse colon. Will try enema and Miralax. Recommend patient take Miralax daily as well. Agree with possible discharge later today. <Maximo Gill MD - Last Filed: 04/17/22 10:54> Time Spent With Patient Time: Total time managing care of this patient today ____ minutes. <Vaishali Rodriguez PA-C - Last Filed: 04/17/22 09:06> Quality Stroke Does the patient have a stroke diagnosis?: No <Vaishali Rodriguez PA-C - Last Filed: 04/17/22 09:06> VTE Prior VTE?: No <Vaishali Rodriguez PA-C - Last Filed: 04/17/22 09:06> VTE Risk Level:: Surgical - moderate <Vaishali Rodriguez PA-C - Last Filed: 04/17/22 09:06> VTE Device Contraindication: N/A - Device Ordered <Vaishali Rodriguez PA-C - Last Filed: 04/17/22 09:06> VTE Drug Contraindication: Treatment Not Indicated <Vaishali Rodriguez PA-C - Last Filed: 04/17/22 09:06>
[2022-04-17] MEDS: Mineral OiL enema 133 ML ENEMA PR (09:40)
[2022-04-17] MEDS: LORazepam 2 MG/ML VIAL 0.5 MG IVPUSH (10:29)
--- NOTE | 2022-04-17 12:36 | HO.PM.IMPN ---
Subjective Subjective Date of Service: 04/17/22 Interval History: Continues to complain of mild intermittent dizziness (was worked up as outpatient by PCP. .. Unremarkable) along with abdominal bloating. Review of Systems Denies chest pain Denies shortness of breath Denies nausea vomiting diarrhea Denies fever chills Physical Exam Vital Signs: Vital Signs: Last Vital Signs Temp 98.8 F 04/17/22 07:32 Pulse 91 04/17/22 08:03 Resp 18 04/17/22 08:03 BP 112/72 04/17/22 07:32 Pulse Ox 96 04/17/22 07:32 O2 Del Method 04/17/22 07:32 BMI result Body Mass Index 27.3 Const: Other: Awake alert no acute distress Resp: Other: Clear to auscultation bilaterally no rales rhonchi or wheezes Cardio: Other: No S4; positive S1-S2; no S3 murmurs rubs or gallops GI: Other: Soft mildly tender without rebound. Bowel sounds quiet Extrem: Other: No edema bilaterally Objective Data Active Medications Acetaminophen (Acetaminophen 325 Mg Tablet) 650 mg PO Q6H PRN PRN Reason: Pain, Mild (Pain Scale 1-3) Al Hydroxide/Mg Hydroxide (Magnesium Hydrox/Alum Hydrox 30 Ml Oral.Susp) 30 ml PO Q4H PRN PRN Reason: GI Upset Last Admin: 04/15/22 08:57 Dose: 30 ml Documented By: JOHANA Albuterol Sulfate (Albuterol Sulfate 90 Mcg 8 Gm Inhaler) 2 puff INHALE Q4H PRN PRN Reason: for wheezing Lipase/Protease/Amylase (Lipase/Prot/Amylase 24/76/120k 1 Cap Capsule.) 1 cap PO TIDAC [facility] Last Admin: 04/17/22 12:32 Dose: 1 cap Documented By: ТАТЬЯНА Aspirin (Aspirin Enteric Coated 81 Mg Tablet.) 81 mg PO DAILY [facility] Last Admin: 04/17/22 08:22 Dose: Not Given Documented By: ТАТЬЯНА Non-Admin Reason: Patient Refused Benzonatate (Benzonatate 100 Mg Capsule) 100 mg PO TID PRN PRN Reason: Cough Last Admin: 04/16/22 19:29 Dose: 100 mg Documented By: SVEN Fluticasone Propionate (Fluticasone Propionate Nasal 16 Gm [place]) 1 spray NOSTRIL-B DAILY PRN PRN Reason: Allergy Symptoms Last Admin: 04/12/22 19:58 Dose: 1 spray Documented By: CASTILM Fluticasone/Vilanterol (Fluticasone/Vilanterol 200/25 Blst.W.Dev) 1 puff INHALE RDAILY [facility] Last Admin: 04/17/22 08:03 Dose: 1 puff Documented By: KRIS Guaifenesin (Guaifenesin La 600 Mg Tab.Er.12h) 600 mg PO Q12H PRN PRN Reason: Congestion Last Admin: 04/16/22 16:13 Dose: 600 mg Documented By: GERALDO Hydromorphone HCl (Hydromorphone Hcl 0.5 Mg/0.5 Ml Syringe) 1 mg IVPUSH Q3H PRN; Protocol PRN Reason: Pain, Severe (Pain Scale 7-10) Last Admin: 04/17/22 01:19 Dose: 1 mg Documented By: SVEN Lorazepam (Lorazepam 2 Mg/Ml Vial) 0.5 mg IVPUSH Q6H PRN PRN Reason: Anxiety Last Admin: 04/17/22 10:29 Dose: 0.5 mg Documented By: ТАТЬЯНА Meclizine HCl (Meclizine Hcl 25 Mg Tablet) 25 mg PO Q6H PRN PRN Reason: dizziness Last Admin: 04/16/22 16:13 Dose: 25 mg Documented By: GERALDO Metoprolol Succinate (Metoprolol Succinate Er 25 Mg Tab.Er.24h) 25 mg PO DAILY [facility]; Protocol Last Admin: 04/17/22 08:23 Dose: 25 mg Documented By: ТАТЬЯНА Multivitamins/Vitamin C (Multivitamin Tablet) 1 tab PO DAILY [facility] Last Admin: 04/17/22 08:24 Dose: 1 tab Documented By: ТАТЬЯНА Omeprazole (Omeprazole 20 Mg Capsule.Dr) 20 mg PO DAILY@0630 [facility] Last Admin: 04/17/22 05:47 Dose: 20 mg Documented By: SVEN Ondansetron HCl (Ondansetron Hcl 4 Mg/2 Ml Vial) 4 mg IVPUSH QID PRN PRN Reason: Nausea Last Admin: 04/15/22 08:57 Dose: 4 mg Documented By: JOHANA Pharmacy Consult (Consult Rx Perform Med Rec) 1 each MISCELLANE ONCE PRN PRN Reason: Consult order Polyethylene Glycol (Polyethylene Glycol 3350 17 Gm Powd.Pack) 17 gm PO DAILY [facility] Last Admin: 04/17/22 08:51 Dose: 17 gm Documented By: ТАТЬЯНА Simethicone (Simethicone 80 Mg Tab.Chew) 240 mg PO QIDWMHS PRN PRN Reason: Gas Last Admin: 04/16/22 19:37 Dose: 240 mg Documented By: SVEN Sodium Chloride (0.9 % Sodium Chloride Flush 3 Ml Syringe) 3 ml IVFLUSH QSHIFT [facility] Last Admin: 04/17/22 08:24 Dose: 3 ml Documented By: ТАТЬЯНА Sucralfate (Sucralfate 1 Gm Tablet) 1 gm PO BID [facility] Last Admin: 04/17/22 08:23 Dose: 1 gm Documented By: ТАТЬЯНА Vitamin D (Cholecalciferol (Vitamin D3) 25 Mcg Tablet) 125 mcg PO DAILY [facility] Last Admin: 04/17/22 08:23 Dose: 125 mcg Documented By: ТАТЬЯНА Zolpidem Tartrate (Zolpidem Tartrate 5 Mg Tablet) 5 mg PO BEDTIME PRN PRN Reason: Insomnia Labs 04/15/22 05:01 04/15/22 05:01 Assessment and Plan (1) SBO (small bowel obstruction): Status: Acute (2) Constipation: Status: Acute Plan 71-year-old female with PMH significant for colon cancer with colectomy, vaginal cancer, interstitial lung disease, hx of SBO, who presetned to the ED with complaints of severe 10/10 abdominal pain lower abdomen associated with bloody stool.? Workup and imaging were consistent partial small-bowel obstruction due to adhesions.? Pt admitted by General Surgery for management of SBO. Hospital consult for medical management. Pt has no acute complaints outside of those relating to SBO. 1.SBO -nausea improved. . . No bowel movement per patient -diet advanced to full liquids 2.Interstitial lung disease -acceptable room-air sats -continue Breo as ordered -albuterol for rescue 3.Acute bronchitis(resolved) -completed course of oral doxycycline. .. Asymptomatic compression boots. full code Disposition as per General surgery. Time Spent With Patient Time: Total time managing care of this patient today ____ minutes. Quality Stroke Does the patient have a stroke diagnosis?: No VTE Prior VTE?: No VTE Risk Level:: Surgical - moderate VTE Device Contraindication: N/A - Device Ordered VTE Drug Contraindication: Treatment Not Indicated
[2022-04-17 14:50] VITALS: BP 100/59; PULSE 88; RESP 18; TEMP 37.4; O2SAT 94
[2022-04-17] MEDS: guaiFENesin LA 600 MG TAB.ER.12H PO (18:00)
[2022-04-17] MEDS: Benzonatate 100 MG CAPSULE PO (18:00)
[2022-04-17 19:22] VITALS: BP 121/66; PULSE 81; RESP 18; TEMP 37.1; O2SAT 95
[2022-04-17] MEDS: Lactulose 20 GM/30 ML SOLUTION PO (19:35)
[2022-04-17] MEDS: Zolpidem Tartrate 5 MG TABLET PO (23:36)
[2022-04-18 03:20] VITALS: BP 120/67; PULSE 84; RESP 18; TEMP 36.5; O2SAT 96
[2022-04-18] MEDS: Omeprazole 20 MG CAPSULE.DR PO (05:53)
[2022-04-18 07:25] VITALS: BP 133/76; PULSE 81; RESP 16; TEMP 36.6; O2SAT 95
[2022-04-18] MEDS: Fluticasone/Vilanterol 200/25 BLST.W.DEV 1 PUFF INHALE (07:28)
[2022-04-18 07:29] VITALS: PULSE 84; RESP 18; O2SAT 96
[2022-04-18] MEDS: 0.9 % Sodium Chloride Flush 3 ML SYRINGE IVFLUSH ×3 (07:43→20:11)
[2022-04-18] MEDS: Sucralfate 1 GM TABLET PO ×2 (07:44→20:11)
[2022-04-18] MEDS: Metoprolol Succinate ER 25 MG TAB.ER.24H PO (07:44)
[2022-04-18] MEDS: Lactulose 20 GM/30 ML SOLUTION PO ×3 (07:44→20:10)
[2022-04-18] MEDS: polyethylene glycoL 3350 17 GM POWD.PACK PO (07:44)
[2022-04-18] MEDS: Multivitamin TABLET 1 TAB PO (07:44)
[2022-04-18] MEDS: Lipase/Prot/Amylase 24/76/120K 1 CAP CAPSULE.DR PO ×3 (07:44→16:20)
[2022-04-18] MEDS: LORazepam 2 MG/ML VIAL 0.5 MG IVPUSH (08:55)
[2022-04-18] MEDS: guaiFENesin LA 600 MG TAB.ER.12H PO ×2 (08:56→20:11)
[2022-04-18] MEDS: Benzonatate 100 MG CAPSULE PO ×2 (08:57→20:11)
--- NOTE | 2022-04-18 12:31 | P.PNGS_ITS ---
Subjective Subjective Date of Service: 04/18/22 <Vaishali Rodriguez PA-C - Last Filed: 04/18/22 12:37> 04/18/22 <Maximo Gill MD - Last Filed: 04/18/22 14:39> Interval history: C/o anxiety and unable to catch breath. Given ativan this morning with relief. Thinks abdominal fullness is improved. Has moved bowels last night and this morning. Has been ambulating in halls. <Vaishali Rodriguez PA-C - Last Filed: 04/18/22 12:37> Physical Exam Vital Signs: Vital Signs: Last Vital Signs Temp 97.8 F 04/18/22 07:25 Pulse 84 04/18/22 07:29 Resp 18 04/18/22 07:29 BP 133/76 04/18/22 07:25 Pulse Ox 95 04/18/22 07:25 O2 Del Method 04/18/22 07:25 BMI result Body Mass Index 27.3 <Vaishali Rodriguez PA-C - Last Filed: 04/18/22 12:37> Const: General: comfortable, no acute distress and alert <Vaishali Rodriguez PA-C - Last Filed: 04/18/22 12:37> Orientation/consciousness: patient oriented x3 <Vaishali Rodriguez PA-C - Last Filed: 04/18/22 12:37> Resp: Effort & Inspection: normal respiratory effort <Vaishali Rodriguez PA-C - Last Filed: 04/18/22 12:37> GI: Inspection: No distended <Vaishali Rodriguez PA-C - Last Filed: 04/18/22 12:37> Palpation (GI): Soft to palpation, nontender, no guarding and not rigid <RONN Hernandez Last Filed: 04/18/22 12:37> Percussion: Yes normal to percussion <RONN Hernandez Last Filed: 04/18/22 12:37> Skin: General skin exam: no rashes or lesions noted <RONN Hernandez Last Filed: 04/18/22 12:37> Neuro: General: patient oriented x3 and moves all extremities <Vaishali Rodriguez PA-C - Last Filed: 04/18/22 12:37> Objective Data Active Medications Acetaminophen (Acetaminophen 325 Mg Tablet) 650 mg PO Q6H PRN PRN Reason: Pain, Mild (Pain Scale 1-3) Al Hydroxide/Mg Hydroxide (Magnesium Hydrox/Alum Hydrox 30 Ml Oral.Susp) 30 ml PO Q4H PRN PRN Reason: GI Upset Last Admin: 04/15/22 08:57 Dose: 30 ml Documented By: JOHANA Albuterol Sulfate (Albuterol Sulfate 90 Mcg 8 Gm Inhaler) 2 puff INHALE Q4H PRN PRN Reason: for wheezing Lipase/Protease/Amylase (Lipase/Prot/Amylase 24/76/120k 1 Cap Capsule.) 1 cap PO TIDAC [facility] Last Admin: 04/18/22 12:26 Dose: 1 cap Documented By: FELECIA Aspirin (Aspirin Enteric Coated 81 Mg Tablet.) 81 mg PO DAILY [facility] Last Admin: 04/18/22 10:25 Dose: Not Given Documented By: FELECIA Non-Admin Reason: Patient Refused Benzonatate (Benzonatate 100 Mg Capsule) 100 mg PO TID PRN PRN Reason: Cough Last Admin: 04/18/22 08:57 Dose: 100 mg Documented By: FELECIA Fluticasone Propionate (Fluticasone Propionate Nasal 16 Gm [place]) 1 spray NOSTRIL-B DAILY PRN PRN Reason: Allergy Symptoms Last Admin: 04/12/22 19:58 Dose: 1 spray Documented By: ZEB Fluticasone/Vilanterol (Fluticasone/Vilanterol 200/25 Blst.W.Dev) 1 puff INHALE RDAILY [facility] Last Admin: 04/18/22 07:28 Dose: 1 puff Documented By: DALIA Guaifenesin (Guaifenesin La 600 Mg Tab.Er.12h) 600 mg PO Q12H PRN PRN Reason: Congestion Last Admin: 04/18/22 08:56 Dose: 600 mg Documented By: FELECIA Hydromorphone HCl (Hydromorphone Hcl 0.5 Mg/0.5 Ml Syringe) 1 mg IVPUSH Q3H PRN; Protocol PRN Reason: Pain, Severe (Pain Scale 7-10) Last Admin: 04/17/22 23:33 Dose: 1 mg Documented By: OLEGARIO Lactulose (Lactulose 20 Gm/30 Ml Solution) 20 gm PO TID [facility] Last Admin: 04/18/22 07:44 Dose: 20 gm Documented By: FELECIA Lorazepam (Lorazepam 2 Mg/Ml Vial) 0.5 mg IVPUSH Q6H PRN PRN Reason: Anxiety Last Admin: 04/18/22 08:55 Dose: 0.5 mg Documented By: FELECIA Meclizine HCl (Meclizine Hcl 25 Mg Tablet) 25 mg PO Q6H PRN PRN Reason: dizziness Last Admin: 04/16/22 16:13 Dose: 25 mg Documented By: GERALDO Metoprolol Succinate (Metoprolol Succinate Er 25 Mg Tab.Er.24h) 25 mg PO DAILY [facility]; Protocol Last Admin: 04/18/22 07:44 Dose: 25 mg Documented By: FELECIA Multivitamins/Vitamin C (Multivitamin Tablet) 1 tab PO DAILY [facility] Last Admin: 04/18/22 07:44 Dose: 1 tab Documented By: FELECIA Omeprazole (Omeprazole 20 Mg Capsule.Dr) 20 mg PO DAILY@0630 [facility] Last Admin: 04/18/22 05:53 Dose: 20 mg Documented By: OLEGARIO Ondansetron HCl (Ondansetron Hcl 4 Mg/2 Ml Vial) 4 mg IVPUSH QID PRN PRN Reason: Nausea Last Admin: 04/15/22 08:57 Dose: 4 mg Documented By: JOHANA Oxycodone HCl (Oxycodone Hcl Immed Release 5 Mg Tablet) 5 mg PO Q4H PRN PRN Reason: Pain, Moderate (Pain Scale 4-6 Pharmacy Consult (Consult Rx Perform Med Rec) 1 each MISCELLANE ONCE PRN PRN Reason: Consult order Polyethylene Glycol (Polyethylene Glycol 3350 17 Gm Powd.Pack) 17 gm PO DAILY [facility] Last Admin: 04/18/22 07:44 Dose: 17 gm Documented By: FELECIA Simethicone (Simethicone 80 Mg Tab.Chew) 240 mg PO QIDWMHS PRN PRN Reason: Gas Last Admin: 04/16/22 19:37 Dose: 240 mg Documented By: SVEN Sodium Chloride (0.9 % Sodium Chloride Flush 3 Ml Syringe) 3 ml IVFLUSH QSHIFT [facility] Last Admin: 04/18/22 07:43 Dose: 3 ml Documented By: FELECIA Sucralfate (Sucralfate 1 Gm Tablet) 1 gm PO BID [facility] Last Admin: 04/18/22 07:44 Dose: 1 gm Documented By: FELECIA Vitamin D (Cholecalciferol (Vitamin D3) 25 Mcg Tablet) 125 mcg PO DAILY [facility] Last Admin: 04/17/22 08:23 Dose: 125 mcg Documented By: ТАТЬЯНА Zolpidem Tartrate (Zolpidem Tartrate 5 Mg Tablet) 5 mg PO BEDTIME PRN PRN Reason: Insomnia Last Admin: 04/17/22 23:36 Dose: 5 mg Documented By: SORENQC <Vaishali Rodriguez PA-C - Last Filed: 04/18/22 12:37> Labs CBC & Chem 7: 04/15/22 05:01 04/15/22 05:01 <Vaishali Rodriguez PA-C - Last Filed: 04/18/22 12:37> Procedures Date of Service Date of Service: 04/18/22 <Vaishali Rodriguez PA-C - Last Filed: 04/18/22 12:37> Progress Note: A&P Assessment and plan (1) Constipation: Status: Acute <RONN Hernandez Last Filed: 04/18/22 12:37> (2) SBO (small bowel obstruction): Status: Acute <Vaishali Rodriguez PA-C - Last Filed: 04/18/22 12:37> (3) Bronchitis: Status: Acute <RONN Hernandez Last Filed: 04/18/22 12:37> Assessment and Plan: 71 year old female admitted with partial SBO. Overall improved from GI standpoint- tolerating solid diet yesterday without fullness sensation and moving bowels. Abd benign. Will obtain CXR for SOB, cough. If WNL, ok for dc to home today on bowel regimen if symptomatically improved. <Vaishali Rodriguez PA-C - Last Filed: 04/18/22 12:37> Time Spent With Patient Time: Total time managing care of this patient today ____ minutes. <Vaishali Rodriguez PA-C - Last Filed: 04/18/22 12:37> Quality Stroke Does the patient have a stroke diagnosis?: No <Vaishali Rodriguez PA-C - Last Filed: 04/18/22 12:37> VTE Prior VTE?: No <Vaishali Rodriguez PA-C - Last Filed: 04/18/22 12:37> VTE Risk Level:: Surgical - moderate <Vaishali Rodriguez PA-C - Last Filed: 04/18/22 12:37> VTE Device Contraindication: N/A - Device Ordered <Vaishali Rodriguez PA-C - Last Filed: 04/18/22 12:37> VTE Drug Contraindication: Treatment Not Indicated <Vaishali Rodriguez PA-C - Last Filed: 04/18/22 12:37>
--- NOTE | 2022-04-18 13:38 | HO.PM.IMPN ---
Subjective Subjective Date of Service: 04/18/22 Interval History: Bloating improved; having bowel movements. No acute events Review of Systems Denies chest pain Denies shortness of breath Denies nausea vomiting diarrhea Denies fever chills Physical Exam Vital Signs: Vital Signs: Last Vital Signs Temp 97.8 F 04/18/22 07:25 Pulse 84 04/18/22 07:29 Resp 18 04/18/22 07:29 BP 133/76 04/18/22 07:25 Pulse Ox 95 04/18/22 07:25 O2 Del Method 04/18/22 07:25 BMI result Body Mass Index 27.3 Const: Other: Awake alert no acute distress Resp: Other: Clear to auscultation bilaterally no rales rhonchi or wheezes Cardio: Other: No S4; positive S1-S2; no S3 murmurs rubs or gallops GI: Other: Soft mildly tender without rebound. Bowel sounds quiet Extrem: Other: No edema bilaterally Objective Data Active Medications Acetaminophen (Acetaminophen 325 Mg Tablet) 650 mg PO Q6H PRN PRN Reason: Pain, Mild (Pain Scale 1-3) Al Hydroxide/Mg Hydroxide (Magnesium Hydrox/Alum Hydrox 30 Ml Oral.Susp) 30 ml PO Q4H PRN PRN Reason: GI Upset Last Admin: 04/15/22 08:57 Dose: 30 ml Documented By: JOHANA Albuterol Sulfate (Albuterol Sulfate 90 Mcg 8 Gm Inhaler) 2 puff INHALE Q4H PRN PRN Reason: for wheezing Lipase/Protease/Amylase (Lipase/Prot/Amylase 24/76/120k 1 Cap Capsule.) 1 cap PO TIDAC [facility] Last Admin: 04/18/22 12:26 Dose: 1 cap Documented By: FELECIA Aspirin (Aspirin Enteric Coated 81 Mg Tablet.) 81 mg PO DAILY [facility] Last Admin: 04/18/22 10:25 Dose: Not Given Documented By: FELECIA Non-Admin Reason: Patient Refused Benzonatate (Benzonatate 100 Mg Capsule) 100 mg PO TID PRN PRN Reason: Cough Last Admin: 04/18/22 08:57 Dose: 100 mg Documented By: FELECIA Fluticasone Propionate (Fluticasone Propionate Nasal 16 Gm [place]) 1 spray NOSTRIL-B DAILY PRN PRN Reason: Allergy Symptoms Last Admin: 04/12/22 19:58 Dose: 1 spray Documented By: CASTDEE Fluticasone/Vilanterol (Fluticasone/Vilanterol 200/25 Blst.W.Dev) 1 puff INHALE RDAILY [facility] Last Admin: 04/18/22 07:28 Dose: 1 puff Documented By: DALIA Guaifenesin (Guaifenesin La 600 Mg Tab.Er.12h) 600 mg PO Q12H PRN PRN Reason: Congestion Last Admin: 04/18/22 08:56 Dose: 600 mg Documented By: FELECIA Hydromorphone HCl (Hydromorphone Hcl 0.5 Mg/0.5 Ml Syringe) 1 mg IVPUSH Q3H PRN; Protocol PRN Reason: Pain, Severe (Pain Scale 7-10) Last Admin: 04/17/22 23:33 Dose: 1 mg Documented By: OLEGARIO Lactulose (Lactulose 20 Gm/30 Ml Solution) 20 gm PO TID [facility] Last Admin: 04/18/22 07:44 Dose: 20 gm Documented By: FELECIA Lorazepam (Lorazepam 1 Mg Tablet) 1 mg PO Q6H PRN PRN Reason: Anxiety Meclizine HCl (Meclizine Hcl 25 Mg Tablet) 25 mg PO Q6H PRN PRN Reason: dizziness Last Admin: 04/16/22 16:13 Dose: 25 mg Documented By: GERALDO Metoprolol Succinate (Metoprolol Succinate Er 25 Mg Tab.Er.24h) 25 mg PO DAILY [facility]; Protocol Last Admin: 04/18/22 07:44 Dose: 25 mg Documented By: FELECIA Multivitamins/Vitamin C (Multivitamin Tablet) 1 tab PO DAILY [facility] Last Admin: 04/18/22 07:44 Dose: 1 tab Documented By: FELECIA Omeprazole (Omeprazole 20 Mg Capsule.Dr) 20 mg PO DAILY@0630 [facility] Last Admin: 04/18/22 05:53 Dose: 20 mg Documented By: OLEGARIO Ondansetron HCl (Ondansetron Hcl 4 Mg/2 Ml Vial) 4 mg IVPUSH QID PRN PRN Reason: Nausea Last Admin: 04/15/22 08:57 Dose: 4 mg Documented By: JOHANA Oxycodone HCl (Oxycodone Hcl Immed Release 5 Mg Tablet) 5 mg PO Q4H PRN PRN Reason: Pain, Moderate (Pain Scale 4-6 Pharmacy Consult (Consult Rx Perform Med Rec) 1 each MISCELLANE ONCE PRN PRN Reason: Consult order Polyethylene Glycol (Polyethylene Glycol 3350 17 Gm Powd.Pack) 17 gm PO DAILY [facility] Last Admin: 04/18/22 07:44 Dose: 17 gm Documented By: FELECIA Simethicone (Simethicone 80 Mg Tab.Chew) 240 mg PO QIDWMHS PRN PRN Reason: Gas Last Admin: 04/16/22 19:37 Dose: 240 mg Documented By: SVEN Sodium Chloride (0.9 % Sodium Chloride Flush 3 Ml Syringe) 3 ml IVFLUSH QSHIFT [facility] Last Admin: 04/18/22 07:43 Dose: 3 ml Documented By: FELECIA Sucralfate (Sucralfate 1 Gm Tablet) 1 gm PO BID [facility] Last Admin: 04/18/22 07:44 Dose: 1 gm Documented By: FELECIA Vitamin D (Cholecalciferol (Vitamin D3) 25 Mcg Tablet) 125 mcg PO DAILY [facility] Last Admin: 04/17/22 08:23 Dose: 125 mcg Documented By: ТАТЬЯНА Zolpidem Tartrate (Zolpidem Tartrate 5 Mg Tablet) 5 mg PO BEDTIME PRN PRN Reason: Insomnia Last Admin: 04/17/22 23:36 Dose: 5 mg Documented By: SORENQC Labs 04/15/22 05:01 04/15/22 05:01 Assessment and Plan (1) SBO (small bowel obstruction): Status: Acute Plan 71-year-old female with PMH significant for colon cancer with colectomy, vaginal cancer, interstitial lung disease, hx of SBO, who presetned to the ED with complaints of severe 10/10 abdominal pain lower abdomen associated with bloody stool.? Workup and imaging were consistent partial small-bowel obstruction due to adhesions.? Pt admitted by General Surgery for management of SBO. Hospital consult for medical management. Pt has no acute complaints outside of those relating to SBO. 1.SBO -nausea improved. . . No bowel movement per patient -diet advanced -medically acceptable for discharge 2.Interstitial lung disease -acceptable room-air sats -continue Breo as ordered -albuterol for rescue 3.Acute bronchitis(resolved) -completed course of oral doxycycline. .. Asymptomatic compression boots. full code Disposition as per General surgery. Time Spent With Patient Time: Total time managing care of this patient today ____ minutes. Quality Stroke Does the patient have a stroke diagnosis?: No VTE Prior VTE?: No VTE Risk Level:: Surgical - moderate VTE Device Contraindication: N/A - Device Ordered VTE Drug Contraindication: Treatment Not Indicated
[2022-04-18] MEDS: oxyCODONE HCl Immed Release 5 MG TABLET PO ×2 (13:41→20:10)
[2022-04-18] MEDS: LORazepam 1 MG TABLET PO ×2 (15:11→22:24)
[2022-04-18 15:15] VITALS: BP 131/73; PULSE 81; RESP 20; TEMP 36.8; O2SAT 98
[2022-04-18 19:09] VITALS: BP 106/71; PULSE 96; RESP 18; TEMP 36.9; O2SAT 96
[2022-04-18] MEDS: ondansetron HCL 4 MG/2 ML VIAL IVPUSH (20:10)
[2022-04-18] MEDS: Simethicone 80 MG TAB.CHEW 240 MG PO (20:11)
[2022-04-18] MEDS: Zolpidem Tartrate 5 MG TABLET PO (22:24)
[2022-04-19 03:45] VITALS: BP 112/70; PULSE 88; RESP 16; TEMP 36.7; O2SAT 97
[2022-04-19] MEDS: Omeprazole 20 MG CAPSULE.DR PO (05:54)
[2022-04-19 07:41] VITALS: PULSE 92; RESP 18; O2SAT 98
[2022-04-19] MEDS: Fluticasone/Vilanterol 200/25 BLST.W.DEV 1 PUFF INHALE (07:41)
--- NOTE | 2022-04-19 07:54 | PM.PNGS ---
Subjective Subjective Date of Service: 04/19/22 Interval history: Denies abdominal pain. Reports anxiety attack yesterday. She feels ready to go home would like a prescription for the Ativan p.r.n. anxiety. Physical Exam Vital Signs: Vital Signs: Last Vital Signs Temp 98.1 F 04/19/22 03:45 Pulse 92 04/19/22 07:41 Resp 18 04/19/22 07:41 BP 112/70 04/19/22 03:45 Pulse Ox 97 04/19/22 03:45 O2 Del Method 04/19/22 03:45 BMI result Body Mass Index 27.3 Const: Other: Awake and alert, no acute distress Resp: Other: Breathing comfortably on room air, no shortness of breath GI: Other: Soft, nondistended, nontender, normal bowel sounds. Extrem: Other: No cyanosis or edema Objective Data Active Medications Acetaminophen (Acetaminophen 325 Mg Tablet) 650 mg PO Q6H PRN PRN Reason: Pain, Mild (Pain Scale 1-3) Al Hydroxide/Mg Hydroxide (Magnesium Hydrox/Alum Hydrox 30 Ml Oral.Susp) 30 ml PO Q4H PRN PRN Reason: GI Upset Last Admin: 04/15/22 08:57 Dose: 30 ml Documented By: JOHANA Albuterol Sulfate (Albuterol Sulfate 90 Mcg 8 Gm Inhaler) 2 puff INHALE Q4H PRN PRN Reason: for wheezing Lipase/Protease/Amylase (Lipase/Prot/Amylase 24/76/120k 1 Cap Capsule.) 1 cap PO TIDAC [facility] Last Admin: 04/18/22 16:20 Dose: 1 cap Documented By: FELECIA Aspirin (Aspirin Enteric Coated 81 Mg Tablet.) 81 mg PO DAILY [facility] Last Admin: 04/18/22 10:25 Dose: Not Given Documented By: FELECIA Non-Admin Reason: Patient Refused Benzonatate (Benzonatate 100 Mg Capsule) 100 mg PO TID PRN PRN Reason: Cough Last Admin: 04/18/22 20:11 Dose: 100 mg Documented By: OLEGARIO Fluticasone Propionate (Fluticasone Propionate Nasal 16 Gm [place]) 1 spray NOSTRIL-B DAILY PRN PRN Reason: Allergy Symptoms Last Admin: 04/12/22 19:58 Dose: 1 spray Documented By: ZEB Fluticasone/Vilanterol (Fluticasone/Vilanterol 200/25 Blst.W.Dev) 1 puff INHALE RDAILY [facility] Last Admin: 04/19/22 07:41 Dose: 1 puff Documented By: MOHAN Guaifenesin (Guaifenesin La 600 Mg Tab.Er.12h) 600 mg PO Q12H PRN PRN Reason: Congestion Last Admin: 04/18/22 20:11 Dose: 600 mg Documented By: OLEGARIO Hydromorphone HCl (Hydromorphone Hcl 0.5 Mg/0.5 Ml Syringe) 1 mg IVPUSH Q3H PRN; Protocol PRN Reason: Pain, Severe (Pain Scale 7-10) Last Admin: 04/17/22 23:33 Dose: 1 mg Documented By: OLEGARIO Lactulose (Lactulose 20 Gm/30 Ml Solution) 20 gm PO TID [facility] Last Admin: 04/18/22 20:10 Dose: 20 gm Documented By: OLEGARIO Lorazepam (Lorazepam 1 Mg Tablet) 1 mg PO Q6H PRN PRN Reason: Anxiety Last Admin: 04/18/22 22:24 Dose: 1 mg Documented By: OLEGARIO Meclizine HCl (Meclizine Hcl 25 Mg Tablet) 25 mg PO Q6H PRN PRN Reason: dizziness Last Admin: 04/16/22 16:13 Dose: 25 mg Documented By: GERALDO Metoprolol Succinate (Metoprolol Succinate Er 25 Mg Tab.Er.24h) 25 mg PO DAILY [facility]; Protocol Last Admin: 04/18/22 07:44 Dose: 25 mg Documented By: FELECIA Multivitamins/Vitamin C (Multivitamin Tablet) 1 tab PO DAILY [facility] Last Admin: 04/18/22 07:44 Dose: 1 tab Documented By: FELECIA Omeprazole (Omeprazole 20 Mg Capsule.Dr) 20 mg PO DAILY@0630 [facility] Last Admin: 04/19/22 05:54 Dose: 20 mg Documented By: OLEGARIO Ondansetron HCl (Ondansetron Hcl 4 Mg/2 Ml Vial) 4 mg IVPUSH QID PRN PRN Reason: Nausea Last Admin: 04/18/22 20:10 Dose: 4 mg Documented By: OLEGARIO Oxycodone HCl (Oxycodone Hcl Immed Release 5 Mg Tablet) 5 mg PO Q4H PRN PRN Reason: Pain, Moderate (Pain Scale 4-6 Last Admin: 04/18/22 20:10 Dose: 5 mg Documented By: OLEGARIO Pharmacy Consult (Consult Rx Perform Med Rec) 1 each MISCELLANE ONCE PRN PRN Reason: Consult order Polyethylene Glycol (Polyethylene Glycol 3350 17 Gm Powd.Pack) 17 gm PO DAILY [facility] Last Admin: 04/18/22 07:44 Dose: 17 gm Documented By: FELECIA Simethicone (Simethicone 80 Mg Tab.Chew) 240 mg PO QIDWMHS PRN PRN Reason: Gas Last Admin: 04/18/22 20:11 Dose: 240 mg Documented By: OLEGARIO Sodium Chloride (0.9 % Sodium Chloride Flush 3 Ml Syringe) 3 ml IVFLUSH QSHIFT [facility] Last Admin: 04/18/22 20:11 Dose: 3 ml Documented By: OLEGRAIO Sucralfate (Sucralfate 1 Gm Tablet) 1 gm PO BID [facility] Last Admin: 04/18/22 20:11 Dose: 1 gm Documented By: OLEGARIO Vitamin D (Cholecalciferol (Vitamin D3) 25 Mcg Tablet) 125 mcg PO DAILY [facility] Last Admin: 04/17/22 08:23 Dose: 125 mcg Documented By: ТАТЬЯНА Zolpidem Tartrate (Zolpidem Tartrate 5 Mg Tablet) 5 mg PO BEDTIME PRN PRN Reason: Insomnia Last Admin: 04/18/22 22:24 Dose: 5 mg Documented By: OLEGARIO Labs 04/15/22 05:01 04/15/22 05:01 Procedures Date of Service Date of Service: 04/19/22 Progress Note: A&P Assessment and plan (1) Constipation: Status: Acute Assessment and Plan: Continue bowel regimen including Colace and MiraLax upon discharge. (2) SBO (small bowel obstruction): Status: Acute Assessment and Plan: Small-bowel obstruction due to adhesions, partial, now resolved. (3) Bronchitis: Status: Acute Assessment and Plan: Chronic and stable. Patient will need PCP for follow-up. Plan Patient be discharged to home today. She will follow up my office in approximately 1 week which should call sooner for any new concerns. She will continue her usual meds. I have prescribed MiraLax and Ativan. Time Spent With Patient Time: Total time managing care of this patient today ____ minutes. Quality Stroke Does the patient have a stroke diagnosis?: No VTE Prior VTE?: No VTE Risk Level:: Surgical - moderate VTE Device Contraindication: N/A - Device Ordered VTE Drug Contraindication: Treatment Not Indicated
[2022-04-19 08:00] VITALS: BP 103/73; PULSE 87; RESP 18; TEMP 36.7; O2SAT 96
[2022-04-19] MEDS: Cholecalciferol (Vitamin D3) 25 MCG TABLET 125 MCG PO (08:14)
[2022-04-19] MEDS: Lactulose 20 GM/30 ML SOLUTION PO (08:14)
[2022-04-19] MEDS: Benzonatate 100 MG CAPSULE PO (08:14)
[2022-04-19] MEDS: Sucralfate 1 GM TABLET PO (08:14)
[2022-04-19] MEDS: Lipase/Prot/Amylase 24/76/120K 1 CAP CAPSULE.DR PO ×2 (08:14→11:35)
[2022-04-19] MEDS: Multivitamin TABLET 1 TAB PO (08:14)
[2022-04-19] MEDS: LORazepam 1 MG TABLET PO (08:15)
[2022-04-19] MEDS: Metoprolol Succinate ER 25 MG TAB.ER.24H PO (08:15)
[2022-04-19] MEDS: guaiFENesin LA 600 MG TAB.ER.12H PO (08:15)
[2022-04-19] MEDS: 0.9 % Sodium Chloride Flush 3 ML SYRINGE IVFLUSH (08:22)
--- NOTE | 2022-04-19 08:28 | MHC.CM.PN ---
PT MEDICALLY CLEARED FOR D/C HOME NO SERVICES W/[facility] FOR TRANSPORT.
--- NOTE | 2022-04-20 09:42 | P.DS_ITS ---
DS: Providers Provider Date of Service: 04/19/22 Date of admission: 04/08/22 08:13 Date of discharge: 04/19/22 Primary care physician: Piper Rushing MD Attending physician on admission: Maximo Gill Consults: 04/08/22 08:12 Consult to Hospitalist Routine Consulting Provider: Hospitalist Reason For Exam: SBO, asthma, med management Attending physician on discharge: Maximo Gill DS: Diagnosis Discharge Diagnosis (1) Constipation: Status: Acute (2) SBO (small bowel obstruction): Status: Acute (3) Bronchitis: Status: Acute DS: Summary Hospital Course Hospital Course: HPI AT ADMISSION: Erin Mooney is a 71 year old female presenting with complaints of abdominal pain 10/10 in severity located in the lower abdomen associated with bloody stool. She has had numerous previous episodes of small- bowel obstruction feels the symptoms agree similar to previous episodes. Many times the episodes resolve spontaneously without coming to the emergency department but this time the pain was too severe. She maintained herself on clear liquids without significant improvement. She subsequently presented to the emergency department and was noted to be tender in lower abdomen. Past history is significant for previous colon surgery followed by pelvic radiation. She has a known history of radiation proctitis. Laboratories revealed normal WBC, hemoglobin of 11.7, BUN of 26. While in the emergency department she reported nausea and vomiting. CT abdomen and pelvis revealed dilated loops of small bowel with air-fluid levels with a transition point in the pelvis at the site of previous surgery and radiation therapy. Findings were consistent with a partial small-bowel obstruction due to adhesions. HOSPITAL COURSE: Patient was admitted to the surgical service for further management of the SBO. She was managed nonoperatively with supportive measures. NGT was inserted in the ED and she was kept NPO and on IVF. Hospitalist consult was obtained for management of her medical comorbidities. That night, her NGT came out accidentally. Reinsertion was held as the patient felt improved symptomatically and began to pass flatus and had a BM. She was advanced to clear liquids. Solid food was attempted however she developed nausea and her diet was therefore deescalated. Her progressed waxed and waned for the next few days. SB series was therefore obtained which showed patent SB and contrast in the colon. She felt improved following this and had bowel movements however had persisent nausea and epigastric fullness. This was thought possibly secondary to stool backup in transverse colon as her imaging showed a large stool burden. She was given fleet enemas and started on miralax. She began to have large bowel movements. She was advanced to a solid diet. She felt better however developed severe anxiety and felt short of breath. Her anxiety improved with PRN ativan. CXR was obtained which showed no acute pathology. The following day, she denied abd pain and had good GI function and was tolerating a solid diet. Her anxiety and SOB was resolved. She felt ready for discharge. She was discharged to home on 04/19/22. Status at Discharge Functional status at discharge: independent ambulation Overall status at discharge: patient is back to baseline Time Spent with Patient Time attestation: Total time managing care of this patient today ____ minutes. Discharge coordination time: Greater than 30 minutes Quality: Safe Use of Opioids Does Pt have an Active Cancer Diagnosis on the Problem List?: No Quality: Stroke Does the patient have a stroke diagnosis?: No Physical Exam Vital Signs: Vital Signs: Last Vital Signs Temp 98.1 F 04/19/22 08:00 Pulse 87 04/19/22 08:00 Resp 18 04/19/22 08:00 BP 103/73 04/19/22 08:00 Pulse Ox 96 04/19/22 08:00 O2 Del Method 04/19/22 08:00 BMI result Body Mass Index 27.3 Discharge Plan Discharge Anticipated Discharge Date/Time: 04/19/22 07:49 Patient Disposition: Home, Self-Care Discharge Diagnosis: SBO Referrals: Piper Rushing MD [Primary Care Provider] - 1 Week Maximo Gill MD [Physician] - 1 Week Discharge Medications: New polyethylene glycol 3350 [Miralax] 17 gram/dose powder 17 g PO DAILY Qty: 119 0RF docusate sodium [Colace] 100 mg capsule 100 mg PO BID Qty: 30 0RF polyethylene glycol 3350 17 gram Powder In Packet 17 g PO DAILY Qty: 100 0RF lorazepam 1 mg Tablet 1 mg PO Q6H PRN (Reason: Anxiety) Qty: 20 0RF Continued metoprolol succinate 25 mg tablet extended release 24 hr 25 mg PO DAILY Qty: 90 3RF albuterol sulfate [Ventolin HFA] 90 mcg/actuation HFA aerosol inhaler 2 puff inhalation Q4-6H PRN (Reason: for wheezing) Qty: 18 2RF fluticasone propionate 50 mcg/actuation spray,suspension 1 spray intranasal DAILY PRN (Reason: Allergy Symptoms) aspirin 81 mg Tablet,Delayed Release (Dr/Ec) 81 mg PO DAILY Qty: 0 0RF multivitamin Tablet 1 tab PO DAILY sucralfate 1 gram tablet 1 g PO BID pantoprazole 40 mg tablet,delayed release (DR/EC) 40 mg PO DAILY@0630 budesonide-formoterol [Symbicort] 160-4.5 mcg/actuation HFA aerosol inhaler 2 puff PO BID Creon 24,000-76,000 -120,000 unit capsule,delayed release(DR/EC) 1 cap PO TIDAC guaifenesin [Mucinex] 600 mg Tablet Extended Release 12hr 600 mg PO Q12H PRN (Reason: Congestion) cholecalciferol (vitamin D3) 125 mcg (5,000 unit) capsule 125 mcg PO DAILY prednisone 10 mg tablet 10 mg PO BID 10 Days Qty: 20 0RF doxycycline hyclate 100 mg capsule 100 mg PO BID 10 Days Qty: 20 0RF Discharge Orders: Discharge Order (Routine); Ordered 04/19/22 Ordered By: Maximo Gill Diet: Low residue diet Activity on Discharge: As tolerated Stand Alone Forms: Patient Portal Discharge page Activity Restrictions/Additional Instructions: Follow up in office in a week. ([phone]) Call Your Doctor If: ? ? -Your temperature exceeds 101.5? F? ? ? -You experience excessive pain or swelling ? ? -You have an unexpected reaction to medication ? ? -You experience continued vomiting/nausea Care Plan Goals: Return to baseline health and resume activities. Health Concerns: Bronchitis SBO Plan of Treatment: Supportive measures: bowel rest, bowel regimen Assessment: Improved Discharge Date/Time: 04/19/22 15:00
== END 2022-04-19 15:00 | disposition home or self-care (01) | DRG 389 ==
LOC: HO.ED 06:48 → HO.EDOVER 08:20 → HO.S3 18:33
PROVIDERS: Hospitalist; Admitting Provider Surgery; Emergency Provider Emergency Medicine; PCP Internal Medicine; Visit Provider Surgery
DX: K56.51 Intestinal adhesions [bands], with partial obstruction (principal); J47.0 Bronchiectasis with acute lower respiratory infection; K62.5 Hemorrhage of anus and rectum; K62.7 Radiation proctitis; J20.9 Acute bronchitis, unspecified; E83.119 Hemochromatosis, unspecified; K59.00 Constipation, unspecified; Z20.822 Contact with and (suspected) exposure to COVID-19; Z98.0 Intestinal bypass and anastomosis status; Z85.038 Personal history of other malignant neoplasm of large intestine; Z85.44 Personal history of malignant neoplasm of other female genital organs; Z92.3 Personal history of irradiation; Z79.82 Long term (current) use of aspirin; Z79.51 Long term (current) use of inhaled steroids; Z79.52 Long term (current) use of systemic steroids; Z79.899 Other long term (current) drug therapy
CPT/HCPCS: 36415; 36430; 71046; 74178; 74240; 74248; 80048; 80053; 80076; 81001; 82272; 82565; 83605; 83690; 83735; 85025; 85027; 85610; 86850; 86870; 86900; 86901; 86920; 86921; 87040; 87086; 87147; 87205; 87635; 94640; 96361; 96374; 96375; 96376; 99285; J0131; J1170; J2060; J2270; J2405; J3370; J3371; Q9967

== ENCOUNTER 2022-06-16 21:40 | Emergency (ER) | payer MEDICARE, MEDICAID, SELFPAY ==
--- NOTE | 2022-06-16 | ECG_ITS ---
Test Reason : CP Blood Pressure : / mmHG Vent. Rate : 113 BPM Atrial Rate : 113 BPM P-R Int : 142 ms QRS Dur : 086 ms QT Int : 336 ms P-R-T Axes : 024 -29 004 degrees QTc Int : 460 ms Sinus tachycardia Possible Anterior infarct (cited on or before 19-AUG-2020) Abnormal ECG When compared with ECG of 19-AUG-2020 21:37, No significant change was found Referred By: Generic ED Physician Electronically Signed By:Gil Del Castillo
--- NOTE | ~2022-06-16 | XR_ITS ---
EXAMINATION: XR CHEST CLINICAL INFORMATION: Shortness of breath COMPARISON: Chest x-ray dated 04/18/2022 TECHNIQUE: 2 views of the chest were obtained. FINDINGS: Normal symmetric lung volumes. Stable chronic peripherally predominant lung markings with no pulmonary fibrosis. No parenchymal consolidation. No pleural effusion. No pneumothorax. Cardiomediastinal silhouette and pulmonary vascularity are within normal limits. No acute osseous abnormalities. XR/XR chest 2V IMPRESSION: No acute findings. Chronic interstitial lung disease redemonstrated.
--- NOTE | ~2022-06-16 | CT_ITS ---
EXAMINATION: CT HEAD WITHOUT CONTRAST CLINICAL INFORMATION: Pain COMPARISON: 08/19/2020 TECHNIQUE: Contiguous axial imaging was performed from the skull base to vertex without intravenous administration of contrast. This CT examination was performed using dose optimization techniques as appropriate, variously including the following: *Automated exposure control *Adjustment of mA and/or kV according to patient size (this includes techniques or standardized protocols for targeted exams where dose is matched to indication/reason for exam; i.e. extremities or head) *Use of iterative reconstruction technique DLP: 602 mGy-cm FINDINGS: There is no evidence of acute intracranial hemorrhage or territorial infarction. No abnormal mass effect or midline shift is seen. Kerr to white matter differentiation is well preserved. No extra-axial fluid collections are identified. No hydrocephalus. No significant volume loss. There is no abnormal attenuation within the brain parenchyma. Stable scattered linear calcifications redemonstrated in the bilateral centrum semiovale and walsh radiata. More dystrophic appearing calcifications redemonstrated in the left temporal lobe. Bilateral physiologic basal ganglia calcifications present as well. No acute osseous or soft tissue abnormality. The mastoid air cells and visualized portions of the paranasal sinuses are well aerated. CT/CT head/brain wo IV con IMPRESSION: No acute intracranial pathology.
[2022-06-16 21:46] VITALS: BP 131/78; PULSE 110; RESP 20; TEMP 37.2; O2SAT 96; BMI 27.3
[2022-06-16 22:17] LABS: MANUAL DIFF FLAG NO
[2022-06-16 22:21] LABS: Basophils Percent Auto 0.3 % (0-2); Eosinophils Absolute Auto 0.1 X10*3/uL (0.0-0.4); Eosinophils Percent Auto 2.4 % (0-4); Hematocrit 32.6 % (37.0-47.0); Hemoglobin 10.9 g/dl (12.0-16.0); Imm Gran Abs Auto 0.02 X10*3/uL (0.00-0.03); Imm Gran Pct Auto 0.3 % (0.0-0.4); Lymphocytes Absolute Auto 1.5 X10*3/uL (1.2-4.9); Lymphocytes Percent Auto 26.2 % (20-40); Mean Corpuscular HGB Conc 33.4 g/dl (31.0-35.0); Mean Corpuscular Hemoglobin 33.1 pg (27.0-33.0); Mean Corpuscular Volume 99.1 fL (80.0-98.0); Mean Platelet Volume 8.8 fL (9.4-12.3); Monocytes Absolute Auto 0.6 X10*3/uL (0.1-1.2); Monocytes Percent Auto 10.3 % (2-11); Neutrophils Absolute Auto 3.5 x10*3/uL (2.0-8.3); Neutrophils Percent Auto 60.5 % (45-73); Platelet Count 240 X10*3/uL (160-400); Red Blood Count 3.29 X10*6/uL (4.20-5.50); Red Cell Distribution Width 13.4 % (11.0-16.0); White Blood Count 5.9 X10*3/uL (4.8-10.8)
[2022-06-16 22:37] LABS: COVID-19 Test Negative (Negative); IDNOW Serial# 6674DD1D
[2022-06-16 22:38] LABS: Alanine Aminotransferase 53 U/L (0-31); Albumin Level 3.5 g/dL (3.5-5.0); Alkaline Phosphatase 141 U/L (39-117); Anion Gap 11 (12-20); Aspartate Amino Transferase 61 U/L (5-31); Bilirubin Total 0.3 mg/dL (0.0-1.0); Blood Urea Nitrogen 25 mg/dL (9-16); Calcium 8.6 mg/dL (8.4-10.2); Carbon Dioxide 22 mmol/L (22-29); Chloride 108 mmol/L (96-108); Creatinine Clr Calc Pharmacy 57.9; Estimated Glomerular Filt Rate > 60; Glucose Random 86 mg/dL (60-115); Potassium 4.8 mmol/L (3.3-5.1); Sodium 136 mmol/L (135-145); Total Protein 7.4 g/dL (6.5-8.0)
[2022-06-16 22:45] VITALS: BP 126/89; PULSE 106; RESP 17; TEMP 36.8; O2SAT 97
[2022-06-16 22:45] LABS: Troponin-I High Sensitivity < 2.7 ng/L (<3.5-17.0)
[2022-06-16 22:55] VITALS: PULSE 106
--- NOTE | 2022-06-16 23:31 | PC.NURSE ---
patient brought back from waiting room, reporting no chest pain but rather increasing headache as well as elevated blood pressure. Blood pressure at this time is stable. Awaiting provider at this time
[2022-06-17] MEDS: diphenhydrAMINE HCL 50 MG/ML VIAL 25 MG IVPUSH (00:01)
[2022-06-17] MEDS: Ketorolac Tromethamine 30 MG/ML VIAL IVPUSH (00:01)
[2022-06-17] MEDS: 0.9 % Sodium Chloride 1,000 ML 999 ML IV (00:01)
[2022-06-17] MEDS: Metoclopramide HCl 10 MG/2 ML VIAL IVPUSH (00:01)
--- NOTE | 2022-06-17 00:05 | ED.CHESTPAIN ---
HPI - Chest Pain General Chief Complaint: Chest Pain Stated Complaint: High BP Time Seen by Provider: 06/16/22 23:40 Source: patient, RN notes reviewed and old records reviewed Mode of arrival: EMS Limitations: no limitations History of Present Illness HPI narrative: 72-year-old female past medical history significant for asthma, history of colon cancer, radiation proctitis, elevated LFTs, interstitial lung disease gastritis, vertigo, IBS, who presents for evaluation of multiple complaints. Patient reports that she was feeling well earlier. In a month was called for her aunt. The patient was complaining of a headache to the EMT The patient reports that the EMT checked her blood pressure and he was ?250/130 and my heart rate was fast. ? The patient takes metoprolol for known history of tachycardia but does not have a diagnosed history of hypertension She then began to experience chest pain and back pain Denies any cardiac history Related Data Home Medications Medication Instructions Recorded Confirmed fluticasone propionate 50 1 spray intranasal DAILY PRN 08/20/20 04/08/22 mcg/actuation nasal Allergy Symptoms spray,suspension cholecalciferol (vitamin D3) 125 125 mcg PO DAILY 01/05/22 04/08/22 mcg (5,000 unit) capsule budesonide-formoterol HFA 160 2 puff PO BID for asthma 04/08/22 04/08/22 mcg-4.5 mcg/actuation aerosol inhaler (Symbicort) guaifenesin 600 mg tablet, 600 mg PO Q12H PRN Congestion 04/08/22 04/08/22 extended release 12 hr (Mucinex) zbvmpn-[id number]-jmoovpd 1 cap PO TIDAC 04/08/22 04/08/22 24,000-76,000-120,000 unit capsule,delayed rel (Creon) multivitamin 1 tab PO DAILY 04/08/22 04/08/22 pantoprazole 40 mg tablet,delayed 40 mg PO DAILY@0630 04/08/22 04/08/22 release sucralfate 1 gram tablet 1 g PO BID 04/08/22 04/08/22 Previous Rx's Medication Instructions Recorded aspirin 81 mg tablet,delayed 81 mg PO DAILY #0 tabs 08/22/20 release metoprolol succinate 25 mg 25 mg PO DAILY #90 tabs 01/19/21 tablet,extended release 24 hr doxycycline hyclate 100 mg capsule 100 mg PO BID BRONCHITIS 10 days 04/02/22 #20 caps prednisone 10 mg tablet 10 mg PO BID 10 days #20 tabs 04/02/22 albuterol sulfate 90 mcg/actuation 2 puff inhalation Q4-6H PRN for 04/04/22 aerosol inhaler (Ventolin HFA) wheezing #18 ea docusate sodium 100 mg capsule 100 mg PO BID #30 caps 04/17/22 (Colace) polyethylene glycol 3350 17 17 g PO DAILY #119 grams 04/17/22 gram/dose oral powder (Miralax) lorazepam 1 mg tablet 1 mg PO Q6H PRN Anxiety #20 tabs 04/19/22 polyethylene glycol 3350 17 gram 17 g PO DAILY #100 ea 04/19/22 oral powder packet Allergies Allergy/AdvReac Type Severity Reaction Status Date / Time No Known Allergies Allergy Verified 06/16/22 21:45 [No Known Allergies*] Review of Systems Constitutional: Constitutional: Reports as per HPI, Denies chills, Denies fatigue, Denies fever(s) and Reports headache(s) ENT: Reports headache(s) Cardiovascular: Cardiovascular: Reports chest pain and Denies dyspnea Respiratory: Respiratory: Reports cough and Denies dyspnea Gastrointestinal: Gastrointestinal: Denies abdominal pain, Denies constipation and Denies vomiting Genitourinary: Genitourinary: Denies dysuria Musculoskeletal: Musculoskeletal: Reports back pain Neurologic: Reports headache(s) and Denies focal weakness Endocrine: Endocrine: Denies fatigue [facility] Past Medical History Medical History Asthma Bronchiectasis Bronchitis Bronchitis Colon cancer Cough Dysuria Hemochromatosis Hyperglycemia Interstitial lung disease Palpitation Post covid-19 condition, unspecified Recurrent intestinal obstruction Seasonal allergies Shoulder pain, bilateral Sinusitis Sinusitis Tubular adenoma Vaginal cancer Vertigo Surgical History H/O colectomy H/O colonoscopy History of cholecystectomy History of esophagogastroduodenoscopy (EGD) Family History Family History Father Dementia GSW (gunshot wound) CAD (coronary artery disease) Mother GSW (gunshot wound) Family/Other Diabetes mellitus Brother CAD (coronary artery disease) Sister No problems noted. Social History Social History Household Members: Other Household Members Other:: 3 Housing: House Do you presently have visiting nurse or other home services: Yes Alcohol intake: current Alcohol intake frequency: holidays/special occasions only Patient Tobacco Use Status: Never used Tobacco Smoked in Last 30 Days: No e-Cigarette/Vaping Use: Never Used Second Hand Smoke Exposure: No Use of substances other than those prescribed or required for medical reasons: No Advance Directives: Yes Advance Directives on File: Yes Advance Directives Date on File: 04/09/22 service: No Current occupational status: unemployed Sexual orientation: Straight/Heterosexual Gender identity: Female Physical Exam Vital Signs: Vital Signs: Last Vital Signs Temp 98.3 F 06/16/22 22:45 Pulse 106 H 06/16/22 22:45 Resp 17 06/16/22 22:45 BP 126/89 06/16/22 22:45 Pulse Ox 97 06/16/22 22:45 O2 Del Method Room Air 06/16/22 22:45 BMI result Body Mass Index 27.3 Const: General: healthy appearing, comfortable, no acute distress, alert and awake Nutritional Appearance: well nourished Orientation/consciousness: patient oriented x3 HEENT: Head: Yes normocephalic and Yes atraumatic Throat: Yes posterior oropharynx normal Eyes: Eyelids: Yes eyelids normal Conjunctivae: conjunctivae normal Sclerae: sclerae normal Corneas: corneas normal Pupils: Equal, round and reactive pupils present EOM: EOMs intact bilaterally Neck: Neck: Yes full ROM Resp: Effort & Inspection: normal respiratory effort, able to speak in complete sentences, no audible wheezes and not labored Auscultation: clear to auscultation bilaterally Cardio: Rate: regular rate Rhythm: regular rhythm GI: Inspection: No distended Palpation (GI): Soft to palpation, not firm, nontender, no guarding and not rigid Auscultation: normoactive bowel sounds Skin: General skin exam: no rashes or lesions noted and elasticity normal Neuro: General: patient oriented x3 Cranial nerves: Yes CN's II-XII intact bilaterally, Yes Equal, round and reactive pupils present and Yes Bilaterally intact EOM present Cognition (Neuro): normal cognition Gait exam (Neuro): Normal gait present Motor exam (neuro): 5/5 motor strength present throughout Coordination: [id number] test normal Course Reevaluation(s) Reevaluation #1: Patient re-evaluated, her headache has resolved, she is no longer having chest pain. Her workup was largely unremarkable, discussed with the patient, she is due for discharge with follow-up with PCP Time: 01:18 Medications Administered Discontinued Medications Generic Name Dose Route Start Last Admin Trade Name Zion PRN Reason Stop Dose Admin Diphenhydramine HCl 25 mg 06/16/22 23:49 06/17/22 00:01 Diphenhydramine Hcl 50 Mg/Ml Vial IVPUSH 06/16/22 23:50 25 mg ONCE ONE Administration Sodium Chloride 1,000 mls @ 999 mls/hr 06/16/22 23:45 06/17/22 01:02 Ns IV 06/17/22 00:45 Infused .Q1H1M FRANCISCO Infusion Ketorolac Tromethamine 30 mg 06/16/22 23:49 06/17/22 00:01 Ketorolac Tromethamine 30 Mg/Ml Vial IVPUSH 06/16/22 23:50 30 mg ONCE ONE Administration Metoclopramide HCl 10 mg 06/16/22 23:49 06/17/22 00:01 Metoclopramide Hcl 10 Mg/2 Ml Vial IVPUSH 06/16/22 23:50 10 mg ONCE ONE Administration Medical Decision Making Medical Decision Making [facility] Narrative: RME 68 further female presents for evaluation of high blood pressure. She reported the wire mesh filter fabricator at her house told it was ?250/130. She has been normotensive thus far in the ER. She has been slightly tachycardic to 110 though she has a diagnosis history of tachycardia and is on a beta-merissa for that. The it appears the patient became anxious after the EMT got her house for her aunt. Or we will work the patient up for her chest pain including labs, EKG, chest x-ray. Will get a CT scan of the brain given the patient reports a headache which is abnormal for her. Patient was medicated for her headache with fluids, Reglan, Benadryl, Toradol. Differential Diagnosis Anxiety Hypertension Chest pain Tension headache Acute headache ACS less likely Lab Data [facility] Lab Attestation statement: I reviewed the patient's lab results. Mild baseline anemia, mild transaminitis. Otherwise unremarkable labs. Troponin negative 06/16/22 22:09 06/16/22 22:09 Labs: Lab Results 06/16/22 06/16/22 06/16/22 Range/Units 22:09 22:09 22:09 WBC 5.9 (4.8-10.8) X10*3/uL RBC 3.29 L (4.20-5.50) X10*6/uL Hgb 10.9 L (12.0-16.0) g/dl Hct 32.6 L (37.0-47.0) % MCV 99.1 H (80.0-98.0) fL MCH 33.1 H (27.0-33.0) pg MCHC 33.4 (31.0-35.0) g/dl RDW 13.4 (11.0-16.0) % Plt Count 240 (160-400) X10*3/uL MPV 8.8 L (9.4-12.3) fL Immature Gran % (Auto) 0.3 (0.0-0.4) % Neut % (Auto) 60.5 (45-73) % Lymph % (Auto) 26.2 (20-40) % Winkler % (Auto) 10.3 (2-11) % Eos % (Auto) 2.4 (0-4) % Baso % (Auto) 0.3 (0-2) % Lymph # (Auto) 1.5 (1.2-4.9) X10*3/uL Winkler # (Auto) 0.6 (0.1-1.2) X10*3/uL Eos # (Auto) 0.1 (0.0-0.4) X10*3/uL Baso # (Auto) 0.0 (0.0-0.2) X10*3/uL Abs Immat Gran (auto) 0.02 (0.00-0.03) X10*3/uL Absolute Neuts (auto) 3.5 (2.0-8.3) x10*3/uL Absolute Nucleated RBC 0.000 (0.0-0.012) X10*3/uL Nucleated RBC % (auto) 0.0 (0.0-0.2) /100WBC Sodium 136 (135-145) mmol/L Potassium 4.8 (3.3-5.1) mmol/L Chloride 108 (96-108) mmol/L Carbon Dioxide 22 (22-29) mmol/L Anion Gap 11 L (12-20) BUN 25 H (9-16) mg/dL Creatinine 0.74 (0.5-1.4) mg/dL Estim Creat Clear Calc 57.9 Estimated GFR > 60 Random Glucose 86 (60-115) mg/dL Calcium 8.6 (8.4-10.2) mg/dL Total Bilirubin 0.3 (0.0-1.0) mg/dL AST 61 H (5-31) U/L ALT 53 H (0-31) U/L Alkaline Phosphatase 141 H (39-117) U/L Troponin I High Sens < 2.7 (<3.5-17.0) ng/L Total Protein 7.4 (6.5-8.0) g/dL Albumin 3.5 (3.5-5.0) g/dL COVID-19 (SANDY) (Negative) COVID-19 Clin Com 06/16/22 Range/Units 22:09 WBC (4.8-10.8) X10*3/uL RBC (4.20-5.50) X10*6/uL Hgb (12.0-16.0) g/dl Hct (37.0-47.0) % MCV (80.0-98.0) fL MCH (27.0-33.0) pg MCHC (31.0-35.0) g/dl RDW (11.0-16.0) % Plt Count (160-400) X10*3/uL MPV (9.4-12.3) fL Immature Gran % (Auto) (0.0-0.4) % Neut % (Auto) (45-73) % Lymph % (Auto) (20-40) % Winkler % (Auto) (2-11) % Eos % (Auto) (0-4) % Baso % (Auto) (0-2) % Lymph # (Auto) (1.2-4.9) X10*3/uL Winkler # (Auto) (0.1-1.2) X10*3/uL Eos # (Auto) (0.0-0.4) X10*3/uL Baso # (Auto) (0.0-0.2) X10*3/uL Abs Immat Gran (auto) (0.00-0.03) X10*3/uL Absolute Neuts (auto) (2.0-8.3) x10*3/uL Absolute Nucleated RBC (0.0-0.012) X10*3/uL Nucleated RBC % (auto) (0.0-0.2) /100WBC Sodium (135-145) mmol/L Potassium (3.3-5.1) mmol/L Chloride (96-108) mmol/L Carbon Dioxide (22-29) mmol/L Anion Gap (12-20) BUN (9-16) mg/dL Creatinine (0.5-1.4) mg/dL Estim Creat Clear Calc Estimated GFR Random Glucose (60-115) mg/dL Calcium (8.4-10.2) mg/dL Total Bilirubin (0.0-1.0) mg/dL AST (5-31) U/L ALT (0-31) U/L Alkaline Phosphatase (39-117) U/L Troponin I High Sens (<3.5-17.0) ng/L Total Protein (6.5-8.0) g/dL Albumin (3.5-5.0) g/dL COVID-19 (SANDY) Negative (Negative) COVID-19 Clin Com See Note Independent Interpretation I performed an independent interpretation of an: EKG (Sinus tachycardia at a rate of 113 beats per minute. No ST segment elevations or depressions) and Plain X-Ray (No focal infiltrates) Radiology Impression Discussion of test interpretation with radiology: I have reviewed the radiologist's reading. Radiologist Impression: No acute pathology of the brain CT or chest x-ray a Discharge Plan Discharge Clinical Impression: Headache Patient Disposition: Home, Self-Care Instructions: Acute Headache (ED) Additional Instructions: Your blood pressure was within normal limits while you were in a hospital today. It was never high in the hospital. Your workup in the emergency department today was reassuring. Next this includes her brain CT, chest x-ray, EKG and lab work Follow-up with your primary doctor Prescriptions: No Action metoprolol succinate 25 mg tablet extended release 24 hr 25 mg PO DAILY Qty: 90 3RF albuterol sulfate [Ventolin HFA] 90 mcg/actuation HFA aerosol inhaler 2 puff inhalation Q4-6H PRN (Reason: for wheezing) Qty: 18 2RF fluticasone propionate 50 mcg/actuation spray,suspension 1 spray intranasal DAILY PRN (Reason: Allergy Symptoms) aspirin 81 mg Tablet,Delayed Release (Dr/Ec) 81 mg PO DAILY Qty: 0 0RF multivitamin Tablet 1 tab PO DAILY sucralfate 1 gram tablet 1 g PO BID pantoprazole 40 mg tablet,delayed release (DR/EC) 40 mg PO DAILY@0630 budesonide-formoterol [Symbicort] 160-4.5 mcg/actuation HFA aerosol inhaler 2 puff PO BID Creon 24,000-76,000 -120,000 unit capsule,delayed release(DR/EC) 1 cap PO TIDAC guaifenesin [Mucinex] 600 mg Tablet Extended Release 12hr 600 mg PO Q12H PRN (Reason: Congestion) polyethylene glycol 3350 [Miralax] 17 gram/dose powder 17 g PO DAILY Qty: 119 0RF docusate sodium [Colace] 100 mg capsule 100 mg PO BID Qty: 30 0RF polyethylene glycol 3350 17 gram Powder In Packet 17 g PO DAILY Qty: 100 0RF lorazepam 1 mg Tablet 1 mg PO Q6H PRN (Reason: Anxiety) Qty: 20 0RF cholecalciferol (vitamin D3) 125 mcg (5,000 unit) capsule 125 mcg PO DAILY prednisone 10 mg tablet 10 mg PO BID 10 Days Qty: 20 0RF doxycycline hyclate 100 mg capsule 100 mg PO BID 10 Days Qty: 20 0RF Interventions: ED Discharge Assessment Last Done: 06/17/22 01:25 Discharge Date/Time: 06/17/22 01:36
== END 2022-06-17 01:36 | disposition home or self-care (01) ==
PROVIDERS: Emergency Provider Student in an Organized Health Care Education/Training Program
DX: R51.9 Headache, unspecified (principal); Z20.822 Contact with and (suspected) exposure to COVID-19; E78.5 Hyperlipidemia, unspecified; Z85.038 Personal history of other malignant neoplasm of large intestine; Z79.899 Other long term (current) drug therapy; Z79.82 Long term (current) use of aspirin
CPT/HCPCS: 70450; 71046; 80053; 84484; 85025; 87635; 93005; 96361; 96374; 96375; 99284; 99285; J1200; J1885; J2765

== ENCOUNTER 2022-06-27 11:52 | Day surgery (SDC) | payer MEDICARE, MEDICAID, SELFPAY ==
--- NOTE | 2022-06-26 13:15 | HO.ANESPROP2 ---
HPI - Anesthesia Eval Consult details Narrative: 72yo F for Colonoscopy ERBE Jet 2 PMFSH Active Problems Active Problems: All Active Problems (Updated 06/18/22 @ 00:01 by Jordin Lucas) Bronchitis (Acute) Tubular adenoma of colon (Acute) Radiation proctitis (Acute) Weight loss, abnormal (Acute) Vitamin D deficiency (Acute) ASCUS with positive high risk HPV cervical (Acute) Sinusitis (Acute) Bronchitis (Acute) Post covid-19 condition, unspecified (Acute) Sinusitis (Acute) Well woman exam (Acute) Elevated LFTs (Acute) Diarrhea (Acute) Osteopenia (Acute) Interstitial lung disease (Acute) Asthma (Acute) Scabies (Acute) Rosacea (Acute) Fatigue (Acute) Low vitamin D level (Acute) Fatigue (Acute) Bronchiectasis (Acute) Bile salt-induced diarrhea (Acute) Cough (Acute) HPV test positive (Acute) Arthralgia (Acute) Gastritis (Acute) Shoulder pain, bilateral (Acute) Vertigo (Acute) Dysuria (Acute) Dizziness (Acute) Postmenopausal bleeding (Acute) IBS (irritable bowel syndrome) (Acute) Elevated LDH (Acute) Elevated rheumatoid factor (Acute) Elevated antinuclear antibody (SVETLANA) level (Acute) Hyperglycemia (Acute) Left-sided thoracic back pain (Acute) Left flank pain (Acute) Annual physical exam (Acute) Hemochromatosis (Acute) Hematuria (Acute) Flank pain (Acute) Nausea and vomiting (Acute) Weight loss, abnormal (Acute) Periumbilical abdominal pain (Acute) History of small bowel obstruction (Acute) History of colon cancer (Acute) GERD with esophagitis (Acute) Abdominal pain (Acute) Acute sinusitis (Acute) Postmenopausal bleeding (Acute) Past Medical History Medical History Asthma Bronchiectasis Bronchitis Bronchitis Colon cancer Cough Dysuria Hemochromatosis Hyperglycemia Interstitial lung disease Palpitation Post covid-19 condition, unspecified Recurrent intestinal obstruction Seasonal allergies Shoulder pain, bilateral Sinusitis Sinusitis Tubular adenoma Vaginal cancer Vertigo Family History Family History Father Dementia GSW (gunshot wound) CAD (coronary artery disease) Mother GSW (gunshot wound) Family/Other Diabetes mellitus Brother CAD (coronary artery disease) Sister No problems noted. Family history of problems with anesthesia: No Surgical History Surgical History H/O colectomy H/O colonoscopy History of cholecystectomy History of esophagogastroduodenoscopy (EGD) History of Problems with Anesthesia: No Social History Social History Household Members: Other Household Members Other:: 3 Housing: House Do you presently have visiting nurse or other home services: Yes Alcohol intake: current Alcohol intake frequency: holidays/special occasions only Patient Tobacco Use Status: Never used Tobacco e-Cigarette/Vaping Use: Never Used Second Hand Smoke Exposure: No Advance Directives: Yes Advance Directives on File: Yes Advance Directives Date on File: 04/09/22 service: No Current occupational status: unemployed Sexual orientation: Straight/Heterosexual Gender identity: Female Meds Allergies Allergy/AdvReac Type Severity Reaction Status Date / Time No Known Allergies Allergy Verified 06/16/22 21:45 [No Known Allergies*] Home Medications Medication Instructions Recorded Confirmed Last Taken Type fluticasone propionate 50 1 spray intranasal DAILY PRN 08/20/20 04/08/22 Unknown History mcg/actuation nasal Allergy Symptoms spray,suspension cholecalciferol (vitamin D3) 125 125 mcg PO DAILY 01/05/22 04/08/22 04/07/22 History mcg (5,000 unit) capsule budesonide-formoterol HFA 160 2 puff PO BID for asthma 04/08/22 04/08/22 04/07/22 History mcg-4.5 mcg/actuation aerosol inhaler (Symbicort) guaifenesin 600 mg tablet, 600 mg PO Q12H PRN Congestion 04/08/22 04/08/22 Unknown History extended release 12 hr (Mucinex) multivitamin 1 tab PO DAILY 04/08/22 04/08/22 Unknown History pantoprazole 40 mg tablet,delayed 40 mg PO DAILY@0630 04/08/22 04/08/22 04/07/22 History release Exam Exam Date and Time: June 26, 2022 1315 Pertinent Lab Results Pertinent Lab Results: Laboratory Tests 06/16/22 06/16/22 22:09 22:09 WBC 5.9 Hgb 10.9 L Hct 32.6 L Plt Count 240 Sodium 136 Potassium 4.8 Chloride 108 Carbon Dioxide 22 BUN 25 H Creatinine 0.74 Narrative Narrative: EKG 06/2022 Vent. Rate : 113 BPM ? ? Atrial Rate : 113 BPM ?? P-R Int : 142 ms? QRS Dur : 086 ms ? ? QT Int : 336 ms ? ? ? P-R-T Axes : 024 -29 004 degrees ?? QTc Int : 460 ms ? Sinus tachycardia Possible Anterior infarct (cited on or before 19-AUG-2020) Abnormal ECG When compared with ECG of 19-AUG-2020 21:37, No significant change was found Assessment and Plan Assessment Anesthesia Assessment: Chart Reviewed Final Anesthetic Review Family History of Problems with Anesthesia: No History of Problems with Anesthesia: No
[2022-06-27 12:01] VITALS: BP 129/85; PULSE 95; RESP 18; TEMP 35.8; O2SAT 95; BMI 29.2
[2022-06-27] MEDS: Lactated Ringers 1,000 ML 100 ML IVCONT (12:21)
--- NOTE | 2022-06-27 12:24 | PC.NURSE ---
no meds taken
--- NOTE | 2022-06-27 13:23 | P.CONAN_ITS ---
HPI - Anesthesia Eval Consult details Narrative: screening ho polyps PMFSH Active Problems Active Problems: All Active Problems (Updated 06/18/22 @ 00:01 by Jordin Lucas) Bronchitis (Acute) Tubular adenoma of colon (Acute) Radiation proctitis (Acute) Weight loss, abnormal (Acute) Vitamin D deficiency (Acute) ASCUS with positive high risk HPV cervical (Acute) Sinusitis (Acute) Bronchitis (Acute) Post covid-19 condition, unspecified (Acute) Sinusitis (Acute) Well woman exam (Acute) Elevated LFTs (Acute) Diarrhea (Acute) Osteopenia (Acute) Interstitial lung disease (Acute) Asthma (Acute) Scabies (Acute) Rosacea (Acute) Fatigue (Acute) Low vitamin D level (Acute) Fatigue (Acute) Bronchiectasis (Acute) Bile salt-induced diarrhea (Acute) Cough (Acute) HPV test positive (Acute) Arthralgia (Acute) Gastritis (Acute) Shoulder pain, bilateral (Acute) Vertigo (Acute) Dysuria (Acute) Dizziness (Acute) Postmenopausal bleeding (Acute) IBS (irritable bowel syndrome) (Acute) Elevated LDH (Acute) Elevated rheumatoid factor (Acute) Elevated antinuclear antibody (SVETLANA) level (Acute) Hyperglycemia (Acute) Left-sided thoracic back pain (Acute) Left flank pain (Acute) Annual physical exam (Acute) Hemochromatosis (Acute) Hematuria (Acute) Flank pain (Acute) Nausea and vomiting (Acute) Weight loss, abnormal (Acute) Periumbilical abdominal pain (Acute) History of small bowel obstruction (Acute) History of colon cancer (Acute) GERD with esophagitis (Acute) Abdominal pain (Acute) Acute sinusitis (Acute) Postmenopausal bleeding (Acute) Past Medical History Medical History Asthma Bronchiectasis Bronchitis Bronchitis Colon cancer Cough Dysuria Hemochromatosis Hyperglycemia Interstitial lung disease Palpitation Post covid-19 condition, unspecified Recurrent intestinal obstruction Seasonal allergies Shoulder pain, bilateral Sinusitis Sinusitis Tubular adenoma Vaginal cancer Vertigo Family History Family History Father Dementia GSW (gunshot wound) CAD (coronary artery disease) Mother GSW (gunshot wound) Family/Other Diabetes mellitus Brother CAD (coronary artery disease) Sister No problems noted. Family history of problems with anesthesia: No Surgical History Surgical History H/O colectomy H/O colonoscopy History of cholecystectomy History of esophagogastroduodenoscopy (EGD) History of Problems with Anesthesia: No Social History Social History Household Members: Other Household Members Other:: 3 Housing: House Do you presently have visiting nurse or other home services: Yes Alcohol intake: current Alcohol intake frequency: holidays/special occasions only Patient Tobacco Use Status: Never used Tobacco e-Cigarette/Vaping Use: Never Used Second Hand Smoke Exposure: No Advance Directives: Yes Advance Directives on File: Yes Advance Directives Date on File: 04/09/22 service: No Current occupational status: unemployed Sexual orientation: Straight/Heterosexual Gender identity: Female Meds Allergies Allergy/AdvReac Type Severity Reaction Status Date / Time No Known Allergies Allergy Verified 06/16/22 21:45 [No Known Allergies*] Active Medications: Current Medications Albuterol Sulfate (Albuterol Sulfate (0.083%) 2.5 Mg/3 Ml Vial.Neb) 2.5 mg INHALE ONCE PRN PRN Reason: Shortness of Breath/Wheezing Lactated Ringer's (Lr) 1,000 mls @ 100 mls/hr IVCONT .Q10H FRANCISCO Last Admin: 06/27/22 12:21 Dose: 100 mls/hr Home Medications Medication Instructions Recorded Confirmed Last Taken Type fluticasone propionate 50 1 spray intranasal DAILY PRN 08/20/20 04/08/22 Unknown History mcg/actuation nasal Allergy Symptoms spray,suspension cholecalciferol (vitamin D3) 125 125 mcg PO DAILY 01/05/22 04/08/22 04/07/22 History mcg (5,000 unit) capsule budesonide-formoterol HFA 160 2 puff PO BID for asthma 04/08/22 04/08/22 04/07/22 History mcg-4.5 mcg/actuation aerosol inhaler (Symbicort) guaifenesin 600 mg tablet, 600 mg PO Q12H PRN Congestion 04/08/22 04/08/22 Unknown History extended release 12 hr (Mucinex) multivitamin 1 tab PO DAILY 04/08/22 04/08/22 Unknown History pantoprazole 40 mg tablet,delayed 40 mg PO DAILY@0630 04/08/22 04/08/22 04/07/22 History release Exam Exam Date and Time: June 27, 2022 1323 Height,Weight and Vital Signs: Height 5 ft 2 in Weight 72.575 kg Last Vital Signs Temp 96.4 F L 06/27/22 12:01 Pulse 95 06/27/22 12:01 Resp 18 06/27/22 12:01 BP 129/85 06/27/22 12:01 Pulse Ox 95 06/27/22 12:01 O2 Del Method Room Air 06/27/22 12:01 Airway Mallampati Class: II TM Dist: >3cm Neck ROM: Full Heart: rr Lungs: cta Assessment and Plan Final Anesthetic Review Family History of Problems with Anesthesia: No History of Problems with Anesthesia: No NPO: Yes ASA Class: II Final Preanesthetic Review: No Changes in Pt Med Stat, Meds/Allgs Chart Reviewe d, Consent Obtained/Reviewed and Anes Risks/Benef Reviewed Patient Risk: Low Procedure Risk: Low Anesthetic Plan Anesthetic Plan: MAC: Disposition: Standard PACU
--- NOTE | 2022-06-27 13:38 | MHC.SHP ---
Pre-Procedural Eval Section A Date of Service: 06/27/22 The patient is an INPATIENT: No The History & Physical has been completed within 30 days and I have reviewed it.: No Section B Chief Complaint: Benign neoplasm of colon, unspecified,Hemochromato Relevant Family History (Specify if Yes): No Relevant Social History: None Present Medications: see Short Stay Collaborative assessment Medical History: Significant History (Bronchiectasis Bronchitis Colon cancer Cough Dysuria Hemochromatosis Hyperglycemia Interstitial lung disease Palpitation Post covid-19 condition, unspecified Recurrent intestinal obstruction Seasonal allergies Shoulder pain, bilateral Sinusitis Sinusitis Tubular adenoma Vaginal cancer Vertigo) History of Previous Operations: Relevant previous surgery/procedure and date(s) ((H/O colectomy H/O colonoscopy History of cholecystectomy History of esophagogastroduodenoscopy (EGD)) Allergies: Allergies Allergy/AdvReac Type Severity Reaction Status Date / Time No Known Allergies Allergy Verified 06/16/22 21:45 [No Known Allergies*] Review of Systems Sugical H&P ROS: Negative: Constitution, Cardiovascular and Respiratory and Yes, Specify: Gastrointestinal (rectal bleeding) Exam Surgical H&P Exam: Normal: Heart, Normal: Lungs, Normal: Extremities and Normal: Abdomen Plan Diagnosis/Plan: Unchanged I have reviewed the history and physical and performed a pertinent physical examination on my patient. No changes have occurred unless specified. Time Spent With Patient Time: Total time managing care of this patient today ____ minutes.
--- NOTE | 2022-06-27 13:46 | W.PM.OPN ---
Operative Note Operative Note Date of Service: 06/27/22 Narrative: FLEXIBLE SIGMOIDOSCOPY TILL 35 CMS WITH APC OF RADIATION PROCTITIS Pre-op diagnosis: Rectal bleeding/ fu of radiation proctitis Post-op diagnosis:?Radiation proctitis, diverticulosis Endoscopist:? Ramiro Oconnor MD Anesthesia:?MAC Consent: Indications for the procedure and potential complications of bleeding, perforation, reaction to medications and missed diagnosis were discussed with the patient and informed consent was obtained. Instrument: Olympus PCF H 190 L variable stiffness pediatric colonoscope Monitoring: Vital signs and clinical assessment, intermittent blood pressure monitoring, continuous EKG monitoring, Pulse oximetry and Carbon Dioxide monitoring were done throughout the procedure. Please see anesthesia flowsheet. Procedure: The patient was placed in the left lateral decubitis position and pre-procedure medications were administered. After a digital rectal examination of the ano-rectum, the video colonoscope was inserted into the rectum and advanced through the colon to 35 cms into the sigmoid colon. The colonoscope was slowly withdrawn in a retrograde panoramic fashion and the colon mucosa was carefully examined. Findings and interventions are described below. Procedure Difficulty: Without difficulty Findings: Sigmoid Colon: Normal appearing anastomosis at 10 cms. Moderate diverticulosis Rectum:??Mild residual changes of radiation proctitis in the distal rectum - treated with APC. Ano-rectum:??Normal Colon preparation: Good Impression and Post Procedure Diagnosis: Colonoscopy Findings: Mild residual changes of radiation proctitis in the distal rectum - treated/ablated with APC. Moderate diverticulosis seen in the sigmoid colon Plan: Patient has an appointment on 07/20/22 in the [facility] with Lelo Tabor NP. If patient continues to have iron def anemia, consider evaluation with a capsule endoscopy since radiation proctitis has been completely ablated with APC. Repeat Colonoscopy in 2 years due to hx of multiple adenomatous polyps on past colonoscopy. Above findings were reviewed with the patient.
[2022-06-27 14:14] VITALS: BP 93/50; PULSE 83; RESP 16; TEMP 36.9; O2SAT 96
[2022-06-27 14:29] VITALS: BP 104/71; PULSE 88; RESP 16; TEMP 36.9; O2SAT 95
== END 2022-06-27 15:13 | disposition home or self-care (01) ==
PROVIDERS: Visit Provider Internal Medicine Gastroenterology
PROC: (CPT 45334; principal; 2022-06-27 13:00)
DX: K62.7 Radiation proctitis (principal); K62.5 Hemorrhage of anus and rectum; Z86.010 Personal history of colon polyps; Z85.038 Personal history of other malignant neoplasm of large intestine; Z98.0 Intestinal bypass and anastomosis status; Z90.49 Acquired absence of other specified parts of digestive tract; K57.30 Diverticulosis of large intestine without perforation or abscess without bleeding; Z85.44 Personal history of malignant neoplasm of other female genital organs; E83.119 Hemochromatosis, unspecified; J84.9 Interstitial pulmonary disease, unspecified; J47.9 Bronchiectasis, uncomplicated; J40 Bronchitis, not specified as acute or chronic; J30.2 Other seasonal allergic rhinitis; R00.2 Palpitations; R73.9 Hyperglycemia, unspecified; Z86.16 Personal history of COVID-19
CPT/HCPCS: 45334

== ENCOUNTER → 2022-07-09 15:08 | Outpatient (BNVA) | payer MEDICARE, MEDICAID, SELFPAY | PROVIDERS: PCP Registered Nurse; Visit Provider Internal Medicine | DX: J47.9 Bronchiectasis, uncomplicated (principal); J84.9 Interstitial pulmonary disease, unspecified | CPT/HCPCS: 99212 ==

== ENCOUNTER → 2022-07-24 14:11 | Outpatient (BNVA) | payer MEDICARE, MEDICAID, SELFPAY | PROVIDERS: PCP Registered Nurse; Visit Provider Student in an Organized Health Care Education/Training Program | DX: M06.9 Rheumatoid arthritis, unspecified (principal); M32.9 Systemic lupus erythematosus, unspecified; M51.36 Other intervertebral disc degeneration, lumbar region; M19.041 Primary osteoarthritis, right hand; M19.042 Primary osteoarthritis, left hand; D68.61 Antiphospholipid syndrome; E83.119 Hemochromatosis, unspecified; R76.8 Other specified abnormal immunological findings in serum; J44.9 Chronic obstructive pulmonary disease, unspecified; J84.9 Interstitial pulmonary disease, unspecified; Z85.038 Personal history of other malignant neoplasm of large intestine; Z80.0 Family history of malignant neoplasm of digestive organs | CPT/HCPCS: 99202 ==

== ENCOUNTER 2022-09-05 15:50 | Outpatient (REF) | payer MEDICARE, MEDICAID, SELFPAY ==
[2022-09-05 17:06] LABS: MANUAL DIFF FLAG NO
[2022-09-05 18:00] LABS: Basophils Percent Auto 0.2 % (0-2); Eosinophils Absolute Auto 0.1 X10*3/uL (0.0-0.4); Eosinophils Percent Auto 1.9 % (0-4); Hematocrit 34.5 % (37.0-47.0); Hemoglobin 11.1 g/dl (12.0-16.0); Imm Gran Abs Auto 0.02 X10*3/uL (0.00-0.03); Imm Gran Pct Auto 0.3 % (0.0-0.4); Lymphocytes Absolute Auto 1.5 X10*3/uL (1.2-4.9); Lymphocytes Percent Auto 23.3 % (20-40); Mean Corpuscular HGB Conc 32.2 g/dl (31.0-35.0); Mean Corpuscular Volume 99.4 fL (80.0-98.0); Mean Platelet Volume 9.2 fL (9.4-12.3); Monocytes Absolute Auto 0.7 X10*3/uL (0.1-1.2); Monocytes Percent Auto 11.9 % (2-11); Neutrophils Absolute Auto 3.9 x10*3/uL (2.0-8.3); Neutrophils Percent Auto 62.4 % (45-73); Platelet Count 258 X10*3/uL (160-400); Red Blood Count 3.47 X10*6/uL (4.20-5.50); Red Cell Distribution Width 13.5 % (11.0-16.0); White Blood Count 6.2 X10*3/uL (4.8-10.8)
[2022-09-05 18:10] LABS: Prothrombin Time 10.9 SEC (10.0-13.1)
[2022-09-05 18:21] LABS: Appearance Urine Turbid; Glucose Urine UA Negative (Negative); Leukocyte Esterase Urine Large (3+) (Negative); Nitrite Urine Negative (Negative); PH 5.5 (5.0-9.0); Specific Gravity - Urine 1.025 (1.005-1.025); UMIC TRIGGER UACC YES; Urine Blood Large (3+) (Negative); Urine Ketones Negative (Negative); Urine Protein 100 (2+) mg/dL (Neg-Trace)
[2022-09-05 18:23] LABS: Bacteria Urine None Seen (None Seen); Hyaline Casts Urine 0-2 /LPF (0-2); RBC Urine >20 /HPF (0-2); UACC Culture Trigger YES; WBC Urine >50 /HPF (0-5)
[2022-09-05 18:24] LABS: Color Urine Yellow
== END 2022-09-05 15:51 | disposition home or self-care (01) ==
LOC: HO.LAB 15:50
PROVIDERS: Absent Provider Student in an Organized Health Care Education/Training Program; PCP Registered Nurse; Visit Provider Nurse Practitioner
DX: K62.7 Radiation proctitis (principal); K62.5 Hemorrhage of anus and rectum; K90.89 Other intestinal malabsorption; R20.0 Anesthesia of skin; N39.0 Urinary tract infection, site not specified
CPT/HCPCS: 36415; 81001; 85025; 85610; 87086; 87088; 87186; 99212

== ENCOUNTER 2022-09-23 12:09 | Inpatient (IN) | payer MEDICARE, MEDICAID, SELFPAY ==
[2022-09-23] VITALS (8 sets, daily range): BP systolic 115–141; BP diastolic 72–85; PULSE 94–101; RESP 16–18; TEMP 36–37; O2SAT 93–98; BMI 28.3
--- NOTE | ~2022-09-23 | CT_ITS ---
EXAMINATION: CT ABDOMEN AND PELVIS WITH CONTRAST CLINICAL INFORMATION: History of small bowel obstruction. Abdominal pain/vomiting. COMPARISON: CT GI bleed abdomen pelvis with contrast 04/08/2022 TECHNIQUE: Multidetector volumetric images were obtained from the superior aspect of the liver through the pubic symphysis following administration 85 mL of Omnipaque 350 intravenous contrast. Sagittal and coronal reformatted images were obtained on the technologist's workstation. Oral contrast: No This CT examination was performed using dose optimization techniques as appropriate, variously including the following: *Automated exposure control *Adjustment of mA and/or kV according to patient size (this includes techniques or standardized protocols for targeted exams where dose is matched to indication/reason for exam; i.e. extremities or head) *Use of iterative reconstruction technique DLP: 457 mGy-cm FINDINGS: LUNG BASES: There is bibasilar scarring and/or atelectasis. The heart size is normal. LIVER, GALLBLADDER, AND BILIARY TREE: The liver is normal in size, shape, and attenuation. No focal hepatic lesion or biliary ductal dilatation is present. The gallbladder has been surgically removed with mild prominence of CBD and proximal intrahepatic ducts a expected finding PANCREAS: Unremarkable. SPLEEN: Unremarkable. ADRENAL GLANDS: Unremarkable. KIDNEYS AND URETERS: The kidneys are normal in size, shape, and attenuation. No hydronephrosis, hydroureter, or calculi seen. No perinephric stranding. There is a 1.6 cm cyst midpole right kidney. BLADDER: Unremarkable. GASTROINTESTINAL TRACT: There is scattered stool and gas seen throughout the colon without distention. There are multiple dilated small bowel loops with air-fluid levels.. The transition segment appears to be in lower pelvis. There is mild free fluid in the pelvis minimally larger to previous study. The terminal ileum is normal caliber. The stomach is nondistended. Appendix is not seen ABDOMINAL WALL: No significant hernia is appreciated. LYMPH NODES: No abnormal-sized mesenteric lymph nodes seen. VASCULAR: The abdominal aorta is normal caliber. PELVIC VISCERA: Postsurgical deya in the left pelvis in the presacral space.. OSSEOUS STRUCTURES: There is degenerative disc changes L3-L4, L4-L5 and L5/S1 disc levels. No aggressive lytic or sclerotic process seen. CT/CT abdomen pelvis w IV con IMPRESSION: Multiple dilated small bowel air-fluid levels with this transition point likely in lower pelvis. The terminal ileum is normal. Exact etiology for small bowel obstruction is not known.. However this could be secondary to adhesions as there are multiple deya seen in the left pelvis. Mild free fluid in the cul-de-sac minimally increased since 08/24/2022 Fleischner guidelines were followed.
--- NOTE | ~2022-09-23 | CT_ITS ---
EXAMINATION: CT ABDOMEN AND PELVIS WITHOUT CONTRAST CLINICAL INFORMATION: Follow-up partial small bowel obstruction COMPARISON: Previous CT scans most recent 09/27/2022 TECHNIQUE: Multidetector volumetric imaging was performed from the superior aspect of the liver through the pubic symphysis following oral Gastrografin contrast. Sagittal and coronal reformatted images were obtained on the technologist's workstation. This CT examination was performed using dose optimization techniques as appropriate, variously including the following: *Automated exposure control *Adjustment of mA and/or kV according to patient size (this includes techniques or standardized protocols for targeted exams where dose is matched to indication/reason for exam; i.e. extremities or head) *Use of iterative reconstruction technique DLP: 626 mGy-cm FINDINGS: LUNG BASES: There are increased peripheral reticular markings at the lung bases. There are very small bilateral pleural effusions. The heart is slightly enlarged. There is a trace pericardial effusion. LIVER, GALLBLADDER, AND BILIARY TREE: The liver is normal in size, shape, and attenuation. The gallbladder has been removed. There is mild common bile duct dilatation, common bile duct measuring up to 1.5 cm. This tapers normally distally in the head of the pancreas. There is no intrahepatic biliary duct dilatation. PANCREAS: Unremarkable. SPLEEN: Unremarkable. ADRENAL GLANDS: Unremarkable. KIDNEYS AND URETERS: The kidneys are normal in size, shape, and attenuation. No hydronephrosis, hydroureter, or calculi seen. No perinephric stranding. BLADDER: Unremarkable. GASTROINTESTINAL TRACT: There is oral contrast seen in the small and large bowel. The large bowel is diffusely distended and filled with oral contrast demonstrate multiple air-fluid levels suggestive of an ileus. There is focal dilatation of small bowel loops in the pelvis, small bowel measuring up to 4.3 cm. Axial image 52 series 3. This is slightly increased in size from most recent exam when small bowel loops measure maximum 3.5 cm. There are small bowel air-fluid levels. There are several areas of caliber change in the small bowel in the mid pelvis, most pronounced axial image 63 series 3 questionable for site of partial small bowel obstruction. There is generalized small amount of ascites slightly increased from most recent exam. It is difficult to assess for small bowel wall thickening due to generalized ascites and lack of IV contrast. There is some fat stranding in the presacral space. The appendix is not seen. ABDOMINAL WALL: No significant hernia is appreciated. LYMPH NODES: Normal. VASCULAR: Unremarkable. PELVIC VISCERA: There are surgical clips in the pelvis. No pelvic mass. OSSEOUS STRUCTURES: Heterogeneous attenuation of the bones in the pelvis, question post radiation change. No suspicious focal bone lesion. Degenerative changes of the spine and hip joints. CT/CT abdomen pelvis wo IV con IMPRESSION: Distal partial small bowel obstruction in the pelvis. There is oral contrast in the more distal small bowel and large bowel and there is no evidence for complete obstruction. Small bowel dilatation is slightly increased compared to most recent exam 09/27/2022 Small amount of ascites slightly increased from 09/27/2022 exam. Mild common bile duct dilatation similar to previous exams. This may be normal postcholecystectomy. Correlation with liver function tests recommended. Fleischner guidelines were followed.
--- NOTE | ~2022-09-23 | XR_ITS ---
EXAMINATION: XR CHEST CLINICAL INFORMATION: Possible bowel obstruction. COMPARISON: Chest radiographs dated 06/17/2022. Chest CT scan dated 04/14/2021. TECHNIQUE: 2 views of the chest were obtained. FINDINGS: Coarsened interstitial markings are seen bilaterally. No focal consolidation or pleural effusions. The heart and mediastinal structures are unremarkable. XR/XR chest 2V IMPRESSION: Chronic interstitial changes correlating with previous studies without overt acute cardiopulmonary process.
--- NOTE | ~2022-09-23 | CT_ITS ---
EXAMINATION: CT ABDOMEN AND PELVIS WITH CONTRAST CLINICAL INFORMATION: ffup for PSBO COMPARISON: CT abdomen pelvis 09/23/2022 TECHNIQUE: Multidetector volumetric images were obtained from the superior aspect of the liver through the pubic symphysis following administration 85 mL of Omnipaque 350 intravenous contrast. Sagittal and coronal reformatted images were obtained on the technologist's workstation. Oral contrast: No This CT examination was performed using dose optimization techniques as appropriate, variously including the following: *Automated exposure control *Adjustment of mA and/or kV according to patient size (this includes techniques or standardized protocols for targeted exams where dose is matched to indication/reason for exam; i.e. extremities or head) *Use of iterative reconstruction technique DLP: 505 mGy-cm FINDINGS: LUNG BASES: Chronic interstitial lung disease with subpleural thickening of the interstitium in the lower lung bases bilaterally. No acute airspace disease. No pleural effusion. LIVER, GALLBLADDER, AND BILIARY TREE: The liver is normal in size, shape, and attenuation. No focal hepatic lesion or biliary ductal dilatation is present. Status post cholecystectomy. Chronic dilatation of the extrahepatic CBD similar prior study. PANCREAS: Unremarkable. SPLEEN: Unremarkable. ADRENAL GLANDS: Unremarkable. KIDNEYS AND URETERS: The kidneys are normal in size, shape, and attenuation. No hydronephrosis, hydroureter, or calculi seen. No perinephric stranding. Small cortical cyst lower pole right kidney. No follow-up imaging is recommended for simple renal cyst. MESENTERY: Small to moderate volume of abdominal ascites now present in the pelvis and upper abdomen. This is new since exam of 09/23/2022. No focal inflammation. No free air. No abscess. Surgical clips in the lower left pelvis. BLADDER: Unremarkable. GASTROINTESTINAL TRACT: There is continued dilatation of small bowel loops. The severity has improved since the exam of 09/23/2022. No bowel wall thickening or edema. No air in the bowel wall. No portal venous gas. Moderate volume of stool in the colon. The appendix is nonvisualized. The stomach is normal. There is no hiatal hernia. ABDOMINAL WALL: No significant hernia is appreciated. LYMPH NODES: Normal. VASCULAR: Scattered vascular calcifications of the distal aorta. No aneurysm. PELVIC VISCERA: Unremarkable. OSSEOUS STRUCTURES: Multilevel degenerative spondylosis spine. Heterogeneous mixed lucent and sclerotic changes of the subchondral bone adjacent to the right and left sacroiliac joints. This is progressed since studies of 03/30/2018. No bony ankylosis of sacroiliac joints. No cortical bone destruction. Degenerative joint disease of hips bilateral with subchondral lucencies of the acetabulum and marginal bone spurs of the femoral head and acetabulum. Degenerative changes worse on the left than right. This has progressed since prior studies. CT/CT abdomen pelvis w IV con IMPRESSION: 1. There is continued dilatation of small bowel loops. The severity has improved since the exam of 09/23/2022. 2. Abdominal ascites now present. 3. Status post cholecystectomy. Chronic dilatation of the extrahepatic CBD. Fleischner guidelines were followed.
--- NOTE | 2022-09-23 12:18 | ED_ITS ---
HPI - Abdominal Pain General Chief Complaint: Abdominal Pain Stated Complaint: obstruction? Time Seen by Provider: 09/23/22 12:24 Source: patient, family and EMS Mode of arrival: EMS Limitations: no limitations History of Present Illness HPI narrative: 72 yo female with past medical history of asthma, ILD, colon cancer s/p resection/radiation, multiple SBOs here with complaints of abdominal pain, multiple episodes of vomiting throughout the night. Last BM yesterday Related Data Home Medications Medication Instructions Recorded Confirmed fluticasone propionate 50 1 spray intranasal DAILY PRN 08/20/20 09/23/22 mcg/actuation nasal Allergy Symptoms spray,suspension cholecalciferol (vitamin D3) 125 125 mcg PO DAILY 01/05/22 09/23/22 mcg (5,000 unit) capsule guaifenesin 600 mg tablet, 600 mg PO Q12H PRN Congestion 04/08/22 09/23/22 extended release 12 hr (Mucinex) multivitamin 1 tab PO DAILY 04/08/22 09/23/22 escitalopram oxalate 10 mg tablet 10 mg PO DAILY 07/24/22 09/23/22 fluticasone furoate 200 1 ea inhalation DAILY 07/24/22 09/23/22 mcg-vilanterol 25 mcg/dose inhalation powder (Breo Ellipta) hydroxyzine HCl 25 mg tablet 25 mg PO BID PRN anxiety 07/24/22 09/23/22 albuterol sulfate 90 mcg/actuation 2 puff inhalation Q6H PRN for 09/23/22 09/23/22 aerosol inhaler (Ventolin HFA) wheezing docusate sodium 100 mg capsule 100 mg PO DAILY PRN Constipation 09/23/22 09/23/22 ipratropium 0.5 mg-albuterol 3 mg 3 ml inhalation Q6H PRN 09/23/22 09/23/22 (2.5 mg base)/3 mL nebulization BRONCHIECTASIS/BRONCHITIS soln lidocaine 5 % topical patch 1 patch topical DAILY PRN Pain 09/23/22 09/23/22 (Lidoderm) lorazepam 0.5 mg tablet 0.5 mg PO BEDTIME PRN Anxiety 09/23/22 09/23/22 pantoprazole 40 mg tablet,delayed 40 mg PO BID 09/23/22 09/23/22 release Previous Rx's Medication Instructions Recorded metoprolol succinate 25 mg 25 mg PO DAILY #90 tabs 01/19/21 tablet,extended release 24 hr sucralfate 1 gram tablet 2 g PO BID #120 tabs 09/05/22 Allergies Allergy/AdvReac Type Severity Reaction Status Date / Time ciprofloxacin [From Cipro] AdvReac Intermediate Facial Verified 09/23/22 12:18 redness, lip swelling Review of Systems Review of Systems Yes all other systems are reviewed and are negative Constitutional: Reports no additional constitutional complaints, Denies body ache(s), Denies chills, Denies fever(s), Denies headache(s) and Denies weakness Eyes: Reports no additional eye complaints and Denies change in vision Reports system reviewed and no additional complaints, except as documented, Denies dizziness, Denies headache(s), Denies nasal congestion, Denies nasal discharge and Denies neck pain Cardiovascular: Reports no additional cardiovascular complaints, Denies chest pain, Denies leg edema and Denies dyspnea Respiratory: Reports no additional respiratory complaints, Denies cough and Denies dyspnea Gastrointestinal: Reports no additional gastrointestinal complaints, Reports abdominal pain, Denies diarrhea, Reports nausea and Reports vomiting Genitourinary: Reports no additional female genitourinary complaints and Denies urinary incontinence Musculoskeletal: Reports no additional musculoskeletal complaints, Denies back pain, Denies arthralgias, Denies joint swelling, Denies neck pain, Denies numbness and Denies tingling Skin/Breast: Reports system reviewed and no additional complaints, except as docu and Denies rash Reports system reviewed and no additional complaints, except as documented, Denies dizziness, Denies headache(s), Denies numbness, Denies tingling and Denies weakness [facility] Past Medical History Attestation statement: The following information was validated with the patient. Source: old records reviewed and nursing notes reviewed Medical History Asthma Bronchiectasis Bronchitis Bronchitis Colon cancer COPD (chronic obstructive pulmonary disease) Cough Dysuria Hemochromatosis Hyperglycemia Interstitial lung disease Palpitation Post covid-19 condition, unspecified Rectal bleeding Recurrent intestinal obstruction SBO (small bowel obstruction) Seasonal allergies Shoulder pain, bilateral Sinusitis Sinusitis Tubular adenoma Vaginal cancer Vertigo Surgical History H/O colectomy H/O colonoscopy History of cholecystectomy History of esophagogastroduodenoscopy (EGD) Family History Family History Father Dementia GSW (gunshot wound) CAD (coronary artery disease) Mother GSW (gunshot wound) Family/Other Diabetes mellitus Brother CAD (coronary artery disease) Sister Multiple sclerosis Sister Rheumatoid arthritis Sister Rheumatoid arthritis Social History Social History Household Members: Other Household Members Other:: 3 Housing: House Do you presently have visiting nurse or other home services: Yes Alcohol intake: never Patient Tobacco Use Status: Never used Tobacco Smoked in Last 30 Days: No e-Cigarette/Vaping Use: Never Used Second Hand Smoke Exposure: No Use of substances other than those prescribed or required for medical reasons: No Advance Directives: Yes Advance Directives on File: Yes Advance Directives Date on File: 04/09/22 service: No Current occupational status: unemployed Sexual orientation: Straight/Heterosexual Gender identity: Female Physical Exam ED Vital Signs: Vital Signs - 24 hr 09/23/22 12:18 09/23/22 12:46 09/23/22 14:31 Temperature 96.8 F 98.0 F 98.3 F Pulse Rate 95 96 99 Respiratory Rate 18 18 18 Blood Pressure 115/77 122/72 140/81 H Pulse Oximetry 97 98 96 Oxygen Delivery Method Room Air Room Air Room Air 09/23/22 16:06 Temperature 98.2 F Pulse Rate 96 Respiratory Rate 18 Blood Pressure 141/84 H Pulse Oximetry 93 Oxygen Delivery Method Room Air BMI result Body Mass Index 28.3 Const General: cooperative, healthy appearing, comfortable and no acute distress Orientation/consciousness: patient oriented x3 Limitations: no limitations HENMT Head: Yes normal to inspection Ears: hearing grossly normal bilaterally Eyes General: appearance normal, both eyes and all related structures Pupils: Equal, round and reactive pupils present Neck Neck: Yes normal visual inspection and Yes full ROM Chest Chest palpation & inspection: normal inspection of the chest Resp Effort & Inspection: normal respiratory effort Auscultation: clear to auscultation bilaterally Cardio Rate: regular rate Rhythm: regular rhythm Peripheral pulses: Peripheral pulses 2+ throughout GI Inspection: Yes normal to inspection Palpation (GI): Soft to palpation, Tenderness to palpation present (GI) (diffusely tender) with no rebound tenderness and Guarding due to palpation present (GI) Auscultation: normal bowel sounds General: Yes no CVA tenderness Back/Spine/Pelvis Back: no CVA tenderness Thoracic/Lumbar Spine: thoracic and lumbar spine normal to inspection Skin General skin exam: no rashes or lesions noted Neuro General: patient oriented x3 and moves all extremities Cranial nerves: Yes Equal, round and reactive pupils present Cognition (Neuro): normal cognition Gait exam (Neuro): Normal gait present Extrem General: Yes normal to inspection Course Course Course Narrative: RME- 12:20pm - 72yoF with a PMHx of SBO's presenting to the ED with c/o of N/V and diffuse abd pain reports I have a bowel obstruction . Last time she had a BM was yesterday a small amount. She has been using OTC Gas X and no symptomatic treatment. Patient reports she has taken multiple medications for pain at home and no symptomatic relief. Denies any fevers, headaches, chest pain or shortness of breath, congestion, black or bloody emesis, diarrhea, dysuria, recent travel or sick contacts or any other symptoms complaints or concerns at this time. Patient has had multiple bowel obstructions in the past the last time she was seen and admitted here on 04/20/2022 for same complaint. Plan: Vital signs are stable patient will be brought to have labs, EKG, chest x-ray and will be sent to the ER for further evaluation and treatment. Medical Decision Making Medical Decision Making [facility] Narrative: 72 yo female with past medical history of asthma, ILD, colon cancer s/p resection/radiation, multiple SBOs here with complaints of abdominal pain, multiple episodes of vomiting throughout the night. Last BM yesterday. On exam diffuse abdominal pain with tenderness, guarding. Will need labs, UA, CTA A/P, IVF, antiemetic, analagesia Differential Diagnosis Differential Diagnoses: The differential diagnosis associated with the presentation includes SBO Admission/Observation Consideration of admission/observation: Escalation of care including admission/observation considered CT shows SBO-patient needs admission for further management Consult Healthcare Provider Management of the patient was discussed with: Elevator Service Mechanic Dr Ceballos [phone] will come in to see the patient [phone] will admit the patient to surgical service Lab Data [facility] Lab Attestation statement: I reviewed the patient's lab results. 09/23/22 13:08 09/23/22 13:08 Labs: Lab Results 09/23/22 09/23/22 09/23/22 Range/Units 13:08 13:08 13:08 WBC 10.5 (4.8-10.8) X10*3/uL RBC 3.30 L (4.20-5.50) X10*6/uL Hgb 10.9 L (12.0-16.0) g/dl Hct 32.0 L (37.0-47.0) % MCV 97.0 (80.0-98.0) fL MCH 33.0 (27.0-33.0) pg MCHC 34.1 (31.0-35.0) g/dl RDW 13.1 (11.0-16.0) % Plt Count 227 (160-400) X10*3/uL MPV 8.7 L (9.4-12.3) fL Immature Gran % (Auto) 0.4 (0.0-0.4) % Neut % (Auto) 86.3 H (45-73) % Lymph % (Auto) 7.5 L (20-40) % [place] % (Auto) 5.1 (2-11) % Eos % (Auto) 0.5 (0-4) % Baso % (Auto) 0.2 (0-2) % Lymph # (Auto) 0.8 L (1.2-4.9) X10*3/uL [place] # (Auto) 0.5 (0.1-1.2) X10*3/uL Eos # (Auto) 0.1 (0.0-0.4) X10*3/uL Baso # (Auto) 0.0 (0.0-0.2) X10*3/uL Abs Immat Gran (auto) 0.04 H (0.00-0.03) X10*3/uL Absolute Neuts (auto) 9.1 H (2.0-8.3) x10*3/uL Absolute Nucleated RBC 0.000 (0.0-0.012) X10*3/uL Nucleated RBC % (auto) 0.0 (0.0-0.2) /100WBC PT 10.9 (10.0-13.1) SEC INR 1.0 (0.9-1.1) Sodium 136 (135-145) mmol/L Potassium 4.4 (3.3-5.1) mmol/L Chloride 106 (96-108) mmol/L Carbon Dioxide 21 L (22-29) mmol/L Anion Gap 13 (12-20) BUN 22 H (9-16) mg/dL Creatinine 0.78 (0.5-1.4) mg/dL Estim Creat Clear Calc 55.8 Estimated GFR > 60 Random Glucose 115 (60-115) mg/dL Calcium 9.9 D (8.4-10.2) mg/dL Magnesium 2.1 (1.6-2.6) mg/dL Total Bilirubin 0.5 (0.0-1.0) mg/dL Direct Bilirubin 0.2 (0.0-0.5) mg/dL AST 58 H (5-31) U/L ALT 60 H (0-31) U/L Alkaline Phosphatase 131 H (39-117) U/L Total Protein 8.1 H (6.5-8.0) g/dL Albumin 3.6 (3.5-5.0) g/dL Lipase 15 (8-78) U/L Independent Interpretation I performed an independent interpretation of an: EKG, Plain X-Ray and CT Scan Interpretation: I independently reviewed the EKG which shows sinus rhythm with a rate of 91, normal LA, normal QRS, normal QT I independently reviewed the chest x-ray and CT A/P and agree with radiologist report Radiology Impression Discussion of test interpretation with radiology: I have reviewed the radiologist's reading. Radiologist Impression: [place] [id number] XRay Report Signed Patient: Erin Mooney MR#: [id number] : 1950 Acct:[id number] Age/Sex: 72 / F ADM Date: 09/23/22 Loc: HO.ED Attending Dr: Ordering Physician: Dolly Alvarez Date of Service: 09/23/22 Procedure(s): XR chest 2V Accession Number(s): [id number] cc: Dolly Alvarez~ EXAMINATION: XR CHEST CLINICAL INFORMATION: Possible bowel obstruction. COMPARISON: Chest radiographs dated 06/17/2022. Chest CT scan dated 04/14/2021. TECHNIQUE: 2 views of the chest were obtained. FINDINGS: Coarsened interstitial markings are seen bilaterally. No focal consolidation or pleural effusions. The heart and mediastinal structures are unremarkable. XR/XR chest 2V IMPRESSION: Chronic interstitial changes correlating with previous studies without overt acute cardiopulmonary process. [place] [address] CT Scan Report Signed Patient: Erin Mooney MR#: [id number] : 1950 Acct:[id number] Age/Sex: 72 / F ADM Date: 09/23/22 Loc: HO.ED Attending Dr: Ordering Physician: Elena Garcia NP Date of Service: 09/23/22 Procedure(s): CT abdomen pelvis w IV con Accession Number(s): [id number] cc: Elena Garcia NP~ EXAMINATION: CT ABDOMEN AND PELVIS WITH CONTRAST? CLINICAL INFORMATION: History of small bowel obstruction. Abdominal pain/vomiting.? COMPARISON: CT GI bleed abdomen pelvis with contrast 04/08/2022 TECHNIQUE: Multidetector volumetric images were obtained from the superior aspect of the liver through the pubic symphysis following administration 85 mL of Omnipaque 350 intravenous contrast. Sagittal and coronal reformatted images were obtained on the technologist's workstation.? Oral contrast: No This CT examination was performed using dose optimization techniques as appropriate, variously including the following: *Automated exposure control *Adjustment of mA and/or kV according to patient size (this includes techniques or standardized protocols for targeted exams where dose is matched to indication/reason for exam; i.e. extremities or head) *Use of iterative reconstruction technique DLP: 457 mGy-cm FINDINGS: LUNG BASES: There is bibasilar scarring and/or atelectasis. The heart size is normal.? LIVER, GALLBLADDER, AND BILIARY TREE: The liver is normal in size, shape, and attenuation. No focal hepatic lesion or biliary ductal dilatation is present. The gallbladder has been surgically removed with mild prominence of CBD and proximal intrahepatic ducts a expected finding PANCREAS: Unremarkable.? SPLEEN: Unremarkable.? ADRENAL GLANDS: Unremarkable.? KIDNEYS AND URETERS: The kidneys are normal in size, shape, and attenuation. No hydronephrosis, hydroureter, or calculi seen. No perinephric stranding. There is a 1.6 cm cyst midpole right kidney. BLADDER: Unremarkable.? GASTROINTESTINAL TRACT: There is scattered stool and gas seen throughout the colon without distention. There are multiple dilated small bowel loops with air-fluid levels.. The transition segment appears to be in lower pelvis. There is mild free fluid in the pelvis minimally larger to previous study. The terminal ileum is normal caliber. The stomach is nondistended. Appendix is not seen ABDOMINAL WALL: No significant hernia is appreciated.? LYMPH NODES: No abnormal-sized mesenteric lymph nodes seen. VASCULAR: The abdominal aorta is normal caliber. PELVIC VISCERA: Postsurgical deya in the left pelvis in the presacral space..? OSSEOUS STRUCTURES: There is degenerative disc changes L3-L4, L4-L5 and L5/S1 disc levels. No aggressive lytic or sclerotic process seen.? CT/CT abdomen pelvis w IV con IMPRESSION: Multiple dilated small bowel air-fluid levels with this transition point likely in lower pelvis. The terminal ileum is normal. Exact etiology for small bowel obstruction is not known.. However this could be secondary to adhesions as there are multiple deya seen in the left pelvis. ? Mild free fluid in the cul-de-sac minimally increased since 08/24/2022 ? Fleischner guidelines were followed. Independent Historian Clinical information obtained from an independent historian. History obtained from or confirmed by: EMS and Other (family member) Clinical information was obtained by family, EMS and confirmed by patient Medications Administered Discontinued Medications Generic Name Dose Route Start Last Admin Trade Name Freq PRN Reason Stop Dose Admin Albuterol Sulfate 2 puff 09/23/22 14:07 09/23/22 15:59 Albuterol Sulfate 90 Mcg 8 Gm Inhaler INHALE 09/23/22 14:08 Not Given ONCE ONE Hydromorphone HCl 0.5 mg 09/23/22 15:57 09/23/22 16:08 Hydromorphone Hcl 0.5 Mg/0.5 Ml Syringe IVPUSH 09/23/22 15:58 0.5 mg ONCE ONE Administration Protocol Iohexol 100 ml 09/23/22 14:30 09/23/22 14:30 Iohexol 350 Mg/Ml 100 Ml Infus..Btl IV 09/23/22 14:31 85 ml ONCE ONE Administration Lorazepam 0.5 mg 09/23/22 12:54 09/23/22 13:17 Lorazepam 2 Mg/Ml Vial IVPUSH 09/23/22 12:55 0.5 mg STAT STA Administration Morphine Sulfate 4 mg 09/23/22 12:54 09/23/22 13:17 Morphine Sulfate 4 Mg/Ml Cartridge IVPUSH 09/23/22 12:55 4 mg ONCE ONE Administration Protocol Morphine Sulfate 4 mg 09/23/22 14:35 09/23/22 14:46 Morphine Sulfate 4 Mg/Ml Cartridge IVPUSH 09/23/22 14:36 4 mg ONCE ONE Administration Protocol Ondansetron HCl 4 mg 09/23/22 12:54 09/23/22 13:17 Ondansetron Hcl 4 Mg/2 Ml Vial IVPUSH 09/23/22 12:55 4 mg ONCE ONE Administration Ondansetron HCl 4 mg 09/23/22 14:35 09/23/22 14:46 Ondansetron Hcl 4 Mg/2 Ml Vial IVPUSH 09/23/22 14:36 4 mg ONCE ONE Administration Discharge Plan Discharge Clinical Impression: Small bowel obstruction Patient Disposition: Admitted As Inpatient
--- NOTE | 2022-09-23 12:20 | ECG_ITS ---
Test Reason : ABD PAIN Blood Pressure : / mmHG Vent. Rate : 091 BPM Atrial Rate : 091 BPM P-R Int : 148 ms QRS Dur : 086 ms QT Int : 374 ms P-R-T Axes : 032 -19 009 degrees QTc Int : 460 ms Sinus rhythm with occasional Premature ventricular complexes Cannot rule out Anterior infarct (cited on or before 19-AUG-2020) Abnormal ECG When compared with ECG of 16-JUN-2022 21:59, Premature ventricular complexes are now Present Referred By: Dolly Alvarez Electronically Signed By:Gil Del Castillo
[2022-09-23 13:12] LABS: MANUAL DIFF FLAG NO
[2022-09-23 13:16] LABS: Basophils Percent Auto 0.2 % (0-2); Eosinophils Absolute Auto 0.1 X10*3/uL (0.0-0.4); Eosinophils Percent Auto 0.5 % (0-4); Hemoglobin 10.9 g/dl (12.0-16.0); Imm Gran Abs Auto 0.04 X10*3/uL (0.00-0.03); Imm Gran Pct Auto 0.4 % (0.0-0.4); Lymphocytes Absolute Auto 0.8 X10*3/uL (1.2-4.9); Lymphocytes Percent Auto 7.5 % (20-40); Mean Corpuscular HGB Conc 34.1 g/dl (31.0-35.0); Mean Platelet Volume 8.7 fL (9.4-12.3); Monocytes Absolute Auto 0.5 X10*3/uL (0.1-1.2); Monocytes Percent Auto 5.1 % (2-11); Neutrophils Absolute Auto 9.1 x10*3/uL (2.0-8.3); Neutrophils Percent Auto 86.3 % (45-73); Platelet Count 227 X10*3/uL (160-400); Red Cell Distribution Width 13.1 % (11.0-16.0); White Blood Count 10.5 X10*3/uL (4.8-10.8)
[2022-09-23] MEDS: ondansetron HCL 4 MG/2 ML VIAL IVPUSH ×3 (13:17→18:35)
[2022-09-23] MEDS: Morphine Sulfate 4 MG/ML CARTRIDGE IVPUSH ×2 (13:17→14:46)
[2022-09-23] MEDS: LORazepam 2 MG/ML VIAL 0.5 MG IVPUSH (13:17)
[2022-09-23 13:24] LABS: Prothrombin Time 10.9 SEC (10.0-13.1)
--- NOTE | 2022-09-23 13:29 | PC.NURSE ---
pt a&ox3. skin warm pink and dry. respirations even and unlabored. pt reporting excruciating abdominal pain for one day now. the abdominal pain started in the lower abdomen and it now in the upper abdomen. abdominal sounds hypoactive in all 4 quadrants and is tender to touch. abdomen is bloated. pt reports history of obstructions. last bowel movement was yesterday afternoon. patient has nausea and vomiting.
[2022-09-23 13:35] LABS: Alanine Aminotransferase 60 U/L (0-31); Albumin Level 3.6 g/dL (3.5-5.0); Alkaline Phosphatase 131 U/L (39-117); Anion Gap 13 (12-20); Aspartate Amino Transferase 58 U/L (5-31); Bilirubin Direct 0.2 mg/dL (0.0-0.5); Bilirubin Total 0.5 mg/dL (0.0-1.0); Blood Urea Nitrogen 22 mg/dL (9-16); Calcium 9.9 mg/dL (8.4-10.2); Carbon Dioxide 21 mmol/L (22-29); Chloride 106 mmol/L (96-108); Creatinine Clr Calc Pharmacy 55.8; Estimated Glomerular Filt Rate > 60; Glucose Random 115 mg/dL (60-115); Lipase 15 U/L (8-78); Magnesium 2.1 mg/dL (1.6-2.6); Potassium 4.4 mmol/L (3.3-5.1); Sodium 136 mmol/L (135-145); Total Protein 8.1 g/dL (6.5-8.0)
[2022-09-23] MEDS: iohexoL 350 MG/ML 100 ML INFUS..BTL IV (14:30)
--- NOTE | 2022-09-23 14:35 | PC.NURSE ---
pt reporting pain is increasing in the abdomen with nausea. provider notified.
--- NOTE | 2022-09-23 14:54 | PC.NURSE ---
inhaler not given because at this time patient states she does not need it.
--- NOTE | 2022-09-23 15:55 | PC.NURSE ---
pt reporting 8/10 pain, provider aware.
[2022-09-23] MEDS: HYDROmorphone HCl 0.5 MG/0.5 ML SYRINGE IVPUSH (16:08)
--- NOTE | 2022-09-23 16:26 | PHA.MEDREC ---
Pharmacy Consult ? Medication Reconciliation Pharmacy has completed the medication reconciliation. Spoke to patient to confirm meds. Per pharmacy, patient hasn't filled metoprolol succ 25mg daily since 07/2021. Per patient, however, they had stopped taking it for months due to hospitalizations and have recently stated taking it again.
--- NOTE | 2022-09-23 16:43 | PC.NURSE ---
since admission, pt has not vomited but has intermittent dry heaves with reported nausea.
--- NOTE | 2022-09-23 16:59 | PM.HPGS ---
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 Last night started having abdo pain again consistent with her psbo - had bm then no gas today. no unusual diet. came to ER and labs ok and ct scan showing findings c/w psbo prob due to adhesions. She is not vomiting now but did back at home. She wants to trial conservative care. Review of Systems Review of Systems: Yes all other systems are reviewed and are negative PMFSH Past Medical History Medical History Asthma Bronchiectasis Bronchitis Bronchitis Colon cancer COPD (chronic obstructive pulmonary disease) Cough Dysuria Hemochromatosis Hyperglycemia Interstitial lung disease Palpitation Post covid-19 condition, unspecified Rectal bleeding Recurrent intestinal obstruction SBO (small bowel obstruction) Seasonal allergies Shoulder pain, bilateral Sinusitis Sinusitis Tubular adenoma Vaginal cancer Vertigo Family History Family History Father Dementia GSW (gunshot wound) CAD (coronary artery disease) Mother GSW (gunshot wound) Family/Other Diabetes mellitus Brother CAD (coronary artery disease) Sister Multiple sclerosis Sister Rheumatoid arthritis Sister Rheumatoid arthritis Surgical History Surgical History H/O colectomy H/O colonoscopy History of cholecystectomy History of esophagogastroduodenoscopy (EGD) Social History Social History Household Members: Other Household Members Other:: 3 Housing: House Do you presently have visiting nurse or other home services: Yes Alcohol intake: never Patient Tobacco Use Status: Never used Tobacco Smoked in Last 30 Days: No e-Cigarette/Vaping Use: Never Used Second Hand Smoke Exposure: No Use of substances other than those prescribed or required for medical reasons: No Advance Directives: Yes Advance Directives on File: Yes Advance Directives Date on File: 04/09/22 service: No Current occupational status: unemployed Sexual orientation: Straight/Heterosexual Gender identity: Female Meds Allergies Allergy/AdvReac Type Severity Reaction Status Date / Time ciprofloxacin [From Cipro] AdvReac Intermediate Facial Verified 09/23/22 12:18 redness, lip swelling Active Medications: Current Medications Albuterol Sulfate (Albuterol Sulfate 90 Mcg 8 Gm Inhaler) 2 puff INHALE Q6H PRN PRN Reason: for wheezing Albuterol/Ipratropium (Albuterol/Iprat 2.5/0.5mg 3 Ml Ampul.Neb) 3 ml INHALE Q6H PRN PRN Reason: BRONCHIECTASIS/BRONCHITIS Enoxaparin Sodium (Enoxaparin Sodium 40 Mg/0.4 Ml Syringe) 40 mg SUBCUT Q24H [facility] Escitalopram Oxalate (Escitalopram Oxalate 10 Mg Tablet) 10 mg PO DAILY [facility] Fluticasone Propionate (Fluticasone Propionate Nasal 16 Gm [place]) 1 spray NOSTRIL-B DAILY PRN PRN Reason: Allergy Symptoms Fluticasone/Vilanterol (Fluticasone/Vilanterol 200/25 Blst.W.Dev) 1 puff INHALE RDAILY [facility] Hydroxyzine HCl (Hydroxyzine Hcl 25 Mg Tablet) 25 mg PO BID PRN PRN Reason: anxiety Sodium Chloride (Ns) 1,000 mls @ 125 mls/hr IVCONT .Q8H [facility] Lidocaine (Lidocaine 4 % Patch Adh..Patch) 1 patch TRANSDERMA DAILY PRN PRN Reason: Pain Lorazepam (Lorazepam 0.5 Mg Tablet) 0.5 mg PO BEDTIME PRN PRN Reason: Anxiety Metoprolol Succinate (Metoprolol Succinate Er 25 Mg Tab.Er.24h) 25 mg PO DAILY [facility]; Protocol Morphine Sulfate (Morphine Sulfate 2 Mg/Ml Cartridge) 2 mg IVPUSH Q4H PRN; Protocol PRN Reason: Pain, Severe (Pain Scale 7-10) Ondansetron HCl (Ondansetron Hcl 4 Mg/2 Ml Vial) 4 mg IVPUSH Q8H PRN PRN Reason: Nausea and Vomiting Pantoprazole Sodium (Pantoprazole Sodium 40 Mg/10 Ml Vial) 40 mg IVPUSH DAILY@0630 [facility] Pharmacy Consult (Consult Rx Perform Med Rec) 1 each MISCELLANE ONCE PRN PRN Reason: Consult order Sodium Chloride (0.9 % Sodium Chloride Flush 3 Ml Syringe) 3 ml IVFLUSH QSHIFT [facility] Home Medications Medication Instructions Recorded Confirmed Last Taken Type fluticasone propionate 50 1 spray intranasal DAILY PRN 08/20/20 09/23/22 Unknown History mcg/actuation nasal Allergy Symptoms spray,suspension cholecalciferol (vitamin D3) 125 125 mcg PO DAILY 01/05/22 09/23/22 09/22/22 History mcg (5,000 unit) capsule guaifenesin 600 mg tablet, 600 mg PO Q12H PRN Congestion 04/08/22 09/23/22 Unknown History extended release 12 hr (Mucinex) multivitamin 1 tab PO DAILY 04/08/22 09/23/22 09/22/22 History escitalopram oxalate 10 mg tablet 10 mg PO DAILY 07/24/22 09/23/22 09/22/22 History fluticasone furoate 200 1 ea inhalation DAILY 07/24/22 09/23/22 09/22/22 History mcg-vilanterol 25 mcg/dose inhalation powder (Breo Ellipta) hydroxyzine HCl 25 mg tablet 25 mg PO BID PRN anxiety 07/24/22 09/23/22 Unknown History albuterol sulfate 90 mcg/actuation 2 puff inhalation Q6H PRN for 09/23/22 09/23/22 Unknown History aerosol inhaler (Ventolin HFA) wheezing docusate sodium 100 mg capsule 100 mg PO DAILY PRN Constipation 09/23/22 09/23/22 Unknown History ipratropium 0.5 mg-albuterol 3 mg 3 ml inhalation Q6H PRN 09/23/22 09/23/22 Unknown History (2.5 mg base)/3 mL nebulization BRONCHIECTASIS/BRONCHITIS soln lidocaine 5 % topical patch 1 patch topical DAILY PRN Pain 09/23/22 09/23/22 09/22/22 History (Lidoderm) lorazepam 0.5 mg tablet 0.5 mg PO BEDTIME PRN Anxiety 09/23/22 09/23/22 Unknown History pantoprazole 40 mg tablet,delayed 40 mg PO BID 09/23/22 09/23/22 09/22/22 History release Physical Exam Vital Signs: Vital Signs: Last Vital Signs Temp 98.2 F 09/23/22 16:06 Pulse 96 09/23/22 16:06 Resp 18 09/23/22 16:06 BP 141/84 H 09/23/22 16:06 Pulse Ox 93 09/23/22 16:06 O2 Del Method Room Air 09/23/22 16:06 BMI result Body Mass Index 28.3 Const: General: cooperative, healthy appearing and in distress mild Orientation/consciousness: patient oriented x3 HEENT: Head: Yes normal to inspection Neck: Neck: Yes normal visual inspection and Yes full ROM Resp: Effort & Inspection: normal respiratory effort Auscultation: clear to auscultation bilaterally Cardio: Rate: regular rate Rhythm: regular rhythm GI: Other: soft nondistended mild diffuse tenderness hypo bowel sounds no hernias noted Skin: General skin exam: no rashes or lesions noted Neuro: General: patient oriented x3, moves all extremities and CN's II-XI intact bilaterally Extrem: General: Yes normal to inspection Psych: Appearance: grossly normal Mental Status: mental status grossly normal Speech and movement: Normal speech and movement present Affect: normal affect Attitude: cooperative Thought process: Normal thought process present Results Results Labs: Short CBC 09/23/22 Range/Units 13:08 WBC 10.5 (4.8-10.8) X10*3/uL Hgb 10.9 L (12.0-16.0) g/dl Hct 32.0 L (37.0-47.0) % Plt Count 227 (160-400) X10*3/uL BMP 09/23/22 13:08 Sodium 136 Potassium 4.4 Chloride 106 Carbon Dioxide 21 L BUN 22 H Creatinine 0.78 Calcium 9.9 D Liver Function 09/23/22 Range/Units 13:08 Total Bilirubin 0.5 (0.0-1.0) mg/dL Direct Bilirubin 0.2 (0.0-0.5) mg/dL AST 58 H (5-31) U/L ALT 60 H (0-31) U/L Alkaline Phosphatase 131 H (39-117) U/L Albumin 3.6 (3.5-5.0) g/dL Abdomen CT scan report/results: report reviewed and image reviewed CT scan - pelvis: report reviewed and image reviewed Assessment and Plan (1) Small bowel obstruction: Status: Acute Plan 72 year old female with multiple abdo surgeries in the past resulting in adhesions and multiple psbo also - now with probable other psbo - plan to keep npo, ivf, iv pain meds, check labs and abdo exams if nauseated and throws up then consider ngt placement but hold for now hopefully will resolve on own ambulate dvt and gi prophylaxis iv pain meds - minimize she understands and agrees with the plan Time Spent With Patient Time: Total time managing care of this patient today ____ minutes. Quality Stroke Does the patient have a stroke diagnosis?: No VTE Prior VTE?: No VTE Risk Level:: Surgical - moderate VTE Device Contraindication: N/A - Device Ordered VTE Drug Contraindication: N/A - Med Ordered Procedures Date of Service Date of Service: 09/23/22
[2022-09-23] MEDS: Metoprolol Succinate ER 25 MG TAB.ER.24H PO (17:05)
[2022-09-23] MEDS: Pantoprazole Sodium 40 MG/10 ML VIAL IVPUSH (17:05)
[2022-09-23] MEDS: 0.9 % Sodium Chloride 1,000 ML 125 ML IVCONT (17:33)
[2022-09-23] MEDS: Enoxaparin Sodium 40 MG/0.4 ML SYRINGE SUBCUT (18:04)
[2022-09-23] MEDS: Morphine Sulfate 2 MG/ML CARTRIDGE IVPUSH ×2 (18:35→23:30)
--- NOTE | 2022-09-23 18:37 | PC.NURSE ---
pt reporting 8/10 pain and is reporting nausea, pt actively vomiting. PRN zofran and morphine given.
--- NOTE | 2022-09-23 21:05 | PC.NURSE ---
pt reports that they have reported 5 times since being in the ER, no vomit noted in emesis bag. Previous RN report indicated that pt had not been vomiting.
[2022-09-23 21:10] LABS: Appearance Urine Clear; Color Urine Yellow; Glucose Urine UA Negative (Negative); Leukocyte Esterase Urine Negative (Negative); Nitrite Urine Negative (Negative); Specific Gravity - Urine >= 1.030 (1.005-1.025); UMIC TRIGGER UACC YES; Urine Blood Small (1+) (Negative); Urine Ketones Trace mg/dL (Negative); Urine Protein Trace mg/dL (Neg-Trace)
[2022-09-23 21:14] LABS: Bacteria Urine None Seen (None Seen); Hyaline Casts Urine 0-2 /LPF (0-2); RBC Urine >20 /HPF (0-2); Squamous Epithelial Cell Urine 0-2 /HPF (0-2); WBC Urine 0-5 /HPF (0-5)
--- NOTE | 2022-09-23 23:33 | PC.NURSE ---
pt medicated with PRN morphine, about 100ml of green vomit noted in emesis bag
--- NOTE | 2022-09-24 00:31 | PC.NURSE ---
assumed care of patient at 23:30
[2022-09-24] MEDS: 0.9 % Sodium Chloride 1,000 ML 125 ML IVCONT ×3 (02:35→19:36)
[2022-09-24] MEDS: ondansetron HCL 4 MG/2 ML VIAL IVPUSH (04:07)
[2022-09-24] MEDS: Morphine Sulfate 2 MG/ML CARTRIDGE IVPUSH ×5 (04:07→22:51)
--- NOTE | 2022-09-24 05:55 | PC.NURSE ---
late entry - pt medicated per may with morphine for pain and zofran for nausea. pt has only had 1 episode of vomiting since this RN took over at 2330 last night. pt resting comfortably on stretcher in no apparent distress. commode at bedside pt able to get self to and from. call davila within reach. will ctm.
[2022-09-24 06:07] LABS: MANUAL DIFF FLAG NO
[2022-09-24] MEDS: Pantoprazole Sodium 40 MG/10 ML VIAL IVPUSH (06:09)
[2022-09-24 06:11] VITALS: BP 104/57; PULSE 102; RESP 18; TEMP 37; O2SAT 95
[2022-09-24 06:14] LABS: Basophils Percent Auto 0.5 % (0-2); Hemoglobin 10.2 g/dl (12.0-16.0); Imm Gran Abs Auto 0.02 X10*3/uL (0.00-0.03); Imm Gran Pct Auto 0.3 % (0.0-0.4); Lymphocytes Absolute Auto 1.3 X10*3/uL (1.2-4.9); Lymphocytes Percent Auto 19.9 % (20-40); Mean Corpuscular HGB Conc 32.9 g/dl (31.0-35.0); Mean Corpuscular Hemoglobin 32.6 pg (27.0-33.0); Mean Platelet Volume 9.3 fL (9.4-12.3); Monocytes Absolute Auto 0.7 X10*3/uL (0.1-1.2); Neutrophils Absolute Auto 4.3 x10*3/uL (2.0-8.3); Neutrophils Percent Auto 68.3 % (45-73); Platelet Count 230 X10*3/uL (160-400); Red Blood Count 3.13 X10*6/uL (4.20-5.50); Red Cell Distribution Width 13.2 % (11.0-16.0); White Blood Count 6.3 X10*3/uL (4.8-10.8)
[2022-09-24 06:25] LABS: Anion Gap 11 (12-20); Blood Urea Nitrogen 22 mg/dL (9-16); Calcium 8.5 mg/dL (8.4-10.2); Carbon Dioxide 23 mmol/L (22-29); Chloride 107 mmol/L (96-108); Creatinine Clr Calc Pharmacy 55.1; Estimated Glomerular Filt Rate > 60; Glucose Random 100 mg/dL (60-115); Potassium 4.3 mmol/L (3.3-5.1); Sodium 137 mmol/L (135-145)
--- NOTE | 2022-09-24 06:58 | PC.NURSE ---
pt ambulatory to and from bathroom with steady gait
[2022-09-24 07:13] VITALS: BP 133/63; PULSE 105; RESP 18; TEMP 37.2; O2SAT 93
[2022-09-24] MEDS: hydrOXYzine HCL 25 MG TABLET PO ×2 (07:51→22:50)
--- NOTE | 2022-09-24 08:11 | PM.PNGS ---
Subjective Subjective Date of Service: 09/25/22 Interval history: vomitted last time at 3 am says she has passed flatus this AM still with some pain Physical Exam Vital Signs: Vital Signs: Last Vital Signs Temp 98.9 F 09/24/22 07:13 Pulse 105 H 09/24/22 07:13 Resp 18 09/24/22 07:13 BP 133/63 09/24/22 07:13 Pulse Ox 93 09/24/22 07:13 O2 Del Method Room Air 09/24/22 07:13 O2 Flow Rate 95 09/23/22 16:59 BMI result Body Mass Index 28.3 Const: General: comfortable and no acute distress Resp: Effort & Inspection: normal respiratory effort Cardio: Rate: regular rate GI: Palpation (GI): Soft to palpation, not firm and no guarding Objective Data Active Medications Albuterol Sulfate (Albuterol Sulfate 90 Mcg 8 Gm Inhaler) 2 puff INHALE Q6H PRN PRN Reason: for wheezing Albuterol/Ipratropium (Albuterol/Iprat 2.5/0.5mg 3 Ml Ampul.Neb) 3 ml INHALE Q6H PRN PRN Reason: BRONCHIECTASIS/BRONCHITIS Enoxaparin Sodium (Enoxaparin Sodium 40 Mg/0.4 Ml Syringe) 40 mg SUBCUT Q24H [facility] Last Admin: 09/23/22 18:04 Dose: 40 mg Documented By: LASHAUN Escitalopram Oxalate (Escitalopram Oxalate 10 Mg Tablet) 10 mg PO DAILY [facility] Fluticasone Propionate (Fluticasone Propionate Nasal 16 Gm [place]) 1 spray NOSTRIL-B DAILY PRN PRN Reason: Allergy Symptoms Fluticasone/Vilanterol (Fluticasone/Vilanterol 200/25 Blst.W.Dev) 1 puff INHALE RDAILY [facility] Hydroxyzine HCl (Hydroxyzine Hcl 25 Mg Tablet) 25 mg PO BID PRN PRN Reason: anxiety Last Admin: 09/24/22 07:51 Dose: 25 mg Documented By: JAKUB Sodium Chloride (Ns) 1,000 mls @ 125 mls/hr IVCONT .Q8H [facility] Last Admin: 09/24/22 02:35 Dose: 125 mls/hr Documented By: KATIE Lidocaine (Lidocaine 4 % Patch Adh..Patch) 1 patch TRANSDERMA DAILY PRN PRN Reason: Pain Lorazepam (Lorazepam 0.5 Mg Tablet) 0.5 mg PO BEDTIME PRN PRN Reason: Anxiety Metoprolol Succinate (Metoprolol Succinate Er 25 Mg Tab.Er.24h) 25 mg PO DAILY [facility]; Protocol Last Admin: 09/23/22 17:05 Dose: 25 mg Documented By: LASHAUN Morphine Sulfate (Morphine Sulfate 2 Mg/Ml Cartridge) 2 mg IVPUSH Q4H PRN; Protocol PRN Reason: Pain, Severe (Pain Scale 7-10) Last Admin: 09/24/22 07:50 Dose: 2 mg Documented By: JAKUB Ondansetron HCl (Ondansetron Hcl 4 Mg/2 Ml Vial) 4 mg IVPUSH Q8H PRN PRN Reason: Nausea and Vomiting Last Admin: 09/24/22 04:07 Dose: 4 mg Documented By: KTAIE Pantoprazole Sodium (Pantoprazole Sodium 40 Mg/10 Ml Vial) 40 mg IVPUSH DAILY@0630 [facility] Last Admin: 09/24/22 06:09 Dose: 40 mg Documented By: KATIE Pharmacy Consult (Consult Rx Perform Med Rec) 1 each MISCELLANE ONCE PRN PRN Reason: Consult order Sodium Chloride (0.9 % Sodium Chloride Flush 3 Ml Syringe) 3 ml IVFLUSH QSHIFT [facility] Last Admin: 09/24/22 00:32 Dose: Not Given Documented By: KATIE Non-Admin Reason: Previously Administered Labs 09/24/22 05:38 09/24/22 05:38 Labs: Laboratory Results - last 24 hr 09/23/22 09/23/22 09/23/22 13:08 13:08 13:08 MCV 97.0 MCH 33.0 MCHC 34.1 RDW 13.1 Plt Count 227 MPV 8.7 L Immature Gran % (Auto) 0.4 Neut % (Auto) 86.3 H Lymph % (Auto) 7.5 L [place] % (Auto) 5.1 Eos % (Auto) 0.5 Baso % (Auto) 0.2 Lymph # (Auto) 0.8 L [place] # (Auto) 0.5 Eos # (Auto) 0.1 Baso # (Auto) 0.0 Abs Immat Gran (auto) 0.04 H Absolute Neuts (auto) 9.1 H Absolute Nucleated RBC 0.000 Nucleated RBC % (auto) 0.0 PT 10.9 INR 1.0 Anion Gap 13 Estim Creat Clear Calc 55.8 Estimated GFR > 60 Random Glucose 115 Calcium 9.9 D Magnesium 2.1 Total Bilirubin 0.5 Direct Bilirubin 0.2 AST 58 H ALT 60 H Alkaline Phosphatase 131 H Total Protein 8.1 H Albumin 3.6 Lipase 15 Urine Color Urine Appearance Urine pH Ur Specific [place] Urine Protein Urine Glucose (UA) Urine Ketones Urine Blood Urine Nitrite Ur Leukocyte Esterase Urine RBC Urine WBC Ur Squamous Epith Cells Urine Bacteria Hyaline Casts 09/23/22 09/24/22 09/24/22 20:57 05:38 05:38 MCV 99.0 H MCH 32.6 MCHC 32.9 RDW 13.2 Plt Count 230 MPV 9.3 L Immature Gran % (Auto) 0.3 Neut % (Auto) 68.3 Lymph % (Auto) 19.9 L [place] % (Auto) 11.0 Eos % (Auto) 0.0 Baso % (Auto) 0.5 Lymph # (Auto) 1.3 [place] # (Auto) 0.7 Eos # (Auto) 0.0 Baso # (Auto) 0.0 Abs Immat Gran (auto) 0.02 Absolute Neuts (auto) 4.3 Absolute Nucleated RBC 0.000 Nucleated RBC % (auto) 0.0 PT INR Anion Gap 11 L Estim Creat Clear Calc 55.1 Estimated GFR > 60 Random Glucose 100 Calcium 8.5 D Magnesium Total Bilirubin Direct Bilirubin AST ALT Alkaline Phosphatase Total Protein Albumin Lipase Urine Color Yellow Urine Appearance Clear Urine pH 5.0 Ur Specific [place] >= 1.030 H Urine Protein Trace Urine Glucose (UA) Negative Urine Ketones Trace Urine Blood Small (1+) H Urine Nitrite Negative Ur Leukocyte Esterase Negative Urine RBC >20 H Urine WBC 0-5 Ur Squamous Epith Cells 0-2 Urine Bacteria None Seen Hyaline Casts 0-2 Procedures Date of Service Date of Service: 09/25/22 Progress Note: A&P Assessment and plan (1) Small bowel obstruction: Status: Acute Assessment and Plan: known to service says she is better wants to hold off on NGT keep NPO exam otherwise benign Time Spent With Patient Time: Total time managing care of this patient today ____ minutes. Quality Stroke Does the patient have a stroke diagnosis?: No VTE Prior VTE?: No VTE Risk Level:: Surgical - moderate VTE Device Contraindication: N/A - Device Ordered VTE Drug Contraindication: N/A - Med Ordered
[2022-09-24 12:20] VITALS: BP 107/69; PULSE 92; RESP 16; TEMP 37.2; O2SAT 94
[2022-09-24] MEDS: Escitalopram Oxalate 10 MG TABLET PO (12:37)
[2022-09-24] MEDS: Metoprolol Succinate ER 25 MG TAB.ER.24H PO (12:37)
--- NOTE | 2022-09-24 13:04 | MHC.CM.PN ---
Met with patient in regards to discharge planning. Patient lives alone, ambulates independently and receives 14 [employer] hours a week from [employer]. Patient still drives. No services anticipated to be needed at discharge because patient is not homebound. PCP verified. Copy of HCP verified to be on file. Patient received 1 Covid vaccine. IMM explained and signed. Patient's friend will transport patient home when medically stable. Continue to monitor for d/c needs.
[2022-09-24 14:43] VITALS: BP 101/59; PULSE 83; RESP 18; TEMP 36.1; O2SAT 94
--- NOTE | 2022-09-24 15:06 | MHC.CLN ---
NUTRITION CONSULT FOR WEIGHT LOSS. PATIENT CURRENTLY NPO DUE TO SBO. REVIEW OF WEIGHT HX SHOWS -6.3% WEIGHT LOSS X 3 MONTHS; -4.7% WEIGHT LOSS X ONE YEAR. WEIGHT LOSS NOT SIGNIFICANT. MONITOR FOR DIET ADVANCEMENT AND WEIGHT.
--- NOTE | 2022-09-24 15:52 | PM.EVENT ---
Event Note Date of Service: 09/24/22 Event Note: Seen on afternoon rounds She says she feels better Passing a little bit more flatus No more vomiting Still with some pain Abdomen soft, some diffuse tenderness but otherwise benign Keep NPO Time Spent With Patient Time: Total time managing care of this patient today ____ minutes.
[2022-09-24] MEDS: Enoxaparin Sodium 40 MG/0.4 ML SYRINGE SUBCUT (17:24)
[2022-09-24] MEDS: LORazepam 0.5 MG TABLET PO (19:50)
[2022-09-25] VITALS: BP 107/62; PULSE 77; RESP 16; TEMP 36.4; O2SAT 92
[2022-09-25] MEDS: 0.9 % Sodium Chloride 1,000 ML 125 ML IVCONT ×2 (03:45→13:17)
[2022-09-25] MEDS: Morphine Sulfate 2 MG/ML CARTRIDGE IVPUSH ×5 (03:52→22:00)
[2022-09-25] MEDS: Pantoprazole Sodium 40 MG/10 ML VIAL IVPUSH (05:41)
[2022-09-25 07:39] VITALS: BP 119/57; PULSE 71; RESP 16; TEMP 36.1; O2SAT 93
[2022-09-25] MEDS: Fluticasone/Vilanterol 200/25 BLST.W.DEV 1 PUFF INHALE (08:05)
[2022-09-25 08:22] VITALS: PULSE 71; RESP 16; O2SAT 97
[2022-09-25] MEDS: Escitalopram Oxalate 10 MG TABLET PO (08:29)
[2022-09-25] MEDS: Metoprolol Succinate ER 25 MG TAB.ER.24H PO (08:29)
--- NOTE | 2022-09-25 09:10 | P.PNGS_ITS ---
Subjective Subjective Date of Service: 09/25/22 Interval history: says she still has abdl pain but much better passing flatus no further nausea or vomitting Physical Exam Vital Signs: Vital Signs: Last Vital Signs Temp 97.0 F 09/25/22 07:39 Pulse 71 09/25/22 08:22 Resp 16 09/25/22 08:22 BP 119/57 L 09/25/22 07:39 Pulse Ox 93 09/25/22 07:39 O2 Del Method Room Air 09/25/22 07:39 O2 Flow Rate 95 09/23/22 16:59 BMI result Body Mass Index 28.3 Const: General: comfortable and no acute distress Resp: Effort & Inspection: normal respiratory effort Cardio: Rate: regular rate GI: Palpation (GI): Soft to palpation, Tenderness to palpation present (GI) (mild diffuse tenderness), no guarding and not rigid Objective Data Active Medications Albuterol Sulfate (Albuterol Sulfate 90 Mcg 8 Gm Inhaler) 2 puff INHALE Q6H PRN PRN Reason: for wheezing Albuterol/Ipratropium (Albuterol/Iprat 2.5/0.5mg 3 Ml Ampul.Neb) 3 ml INHALE Q6H PRN PRN Reason: BRONCHIECTASIS/BRONCHITIS Enoxaparin Sodium (Enoxaparin Sodium 40 Mg/0.4 Ml Syringe) 40 mg SUBCUT Q24H [facility] Last Admin: 09/24/22 17:24 Dose: 40 mg Documented By: REHANA Escitalopram Oxalate (Escitalopram Oxalate 10 Mg Tablet) 10 mg PO DAILY [facility] Last Admin: 09/25/22 08:29 Dose: 10 mg Documented By: ROSALBA Fluticasone Propionate (Fluticasone Propionate Nasal 16 Gm [place]) 1 spray NOSTRIL-B DAILY PRN PRN Reason: Allergy Symptoms Fluticasone/Vilanterol (Fluticasone/Vilanterol 200/25 Blst.W.Dev) 1 puff INHALE RDAILY [facility] Last Admin: 09/25/22 08:05 Dose: 1 puff Documented By: RAISSA Hydroxyzine HCl (Hydroxyzine Hcl 25 Mg Tablet) 25 mg PO BID PRN PRN Reason: anxiety Last Admin: 09/24/22 22:50 Dose: 25 mg Documented By: TRAMAINE Sodium Chloride (Ns) 1,000 mls @ 125 mls/hr IVCONT .Q8H [facility] Last Admin: 09/25/22 03:45 Dose: 125 mls/hr Documented By: TRAMAINE Lidocaine (Lidocaine 4 % Patch Adh..Patch) 1 patch TRANSDERMA DAILY PRN PRN Reason: Pain Lorazepam (Lorazepam 0.5 Mg Tablet) 0.5 mg PO BEDTIME PRN PRN Reason: Anxiety Last Admin: 09/24/22 19:50 Dose: 0.5 mg Documented By: TRAMAINE Metoprolol Succinate (Metoprolol Succinate Er 25 Mg Tab.Er.24h) 25 mg PO DAILY [facility]; Protocol Last Admin: 09/25/22 08:29 Dose: 25 mg Documented By: ROSALBA Morphine Sulfate (Morphine Sulfate 2 Mg/Ml Cartridge) 2 mg IVPUSH Q4H PRN; Protocol PRN Reason: Pain, Severe (Pain Scale 7-10) Last Admin: 09/25/22 08:34 Dose: 2 mg Documented By: ROSALBA Ondansetron HCl (Ondansetron Hcl 4 Mg/2 Ml Vial) 4 mg IVPUSH Q8H PRN PRN Reason: Nausea and Vomiting Last Admin: 09/24/22 04:07 Dose: 4 mg Documented By: KATIE Pantoprazole Sodium (Pantoprazole Sodium 40 Mg/10 Ml Vial) 40 mg IVPUSH DAILY@0630 [facility] Last Admin: 09/25/22 05:41 Dose: 40 mg Documented By: TRAMAINE Pharmacy Consult (Consult Rx Perform Med Rec) 1 each MISCELLANE ONCE PRN PRN Reason: Consult order Sodium Chloride (0.9 % Sodium Chloride Flush 3 Ml Syringe) 3 ml IVFLUSH QSHIFT [facility] Last Admin: 09/25/22 08:29 Dose: Not Given Documented By: ROSALBA Non-Admin Reason: IV Running Labs 09/24/22 05:38 09/24/22 05:38 Procedures Date of Service Date of Service: 09/25/22 Progress Note: A&P Assessment and plan (1) Small bowel obstruction: Status: Acute Assessment and Plan: symptoms much improved still has some abdl pain passing flatus ok to have sips of clear liquids will reeval later today encouraged to get OOB Time Spent With Patient Time: Total time managing care of this patient today ____ minutes. Quality Stroke Does the patient have a stroke diagnosis?: No VTE Prior VTE?: No VTE Risk Level:: Surgical - moderate VTE Device Contraindication: N/A - Device Ordered VTE Drug Contraindication: N/A - Med Ordered
[2022-09-25 15:00] VITALS: BP 124/58; PULSE 70; RESP 14; TEMP 36.4; O2SAT 93
[2022-09-25] MEDS: Lidocaine 4 % Patch ADH..PATCH 1 PATCH TRANSDERMA (15:07)
[2022-09-25] MEDS: Enoxaparin Sodium 40 MG/0.4 ML SYRINGE SUBCUT (17:58)
[2022-09-25] MEDS: LORazepam 0.5 MG TABLET PO (22:00)
[2022-09-25] MEDS: 0.9 % Sodium Chloride Flush 3 ML SYRINGE IVFLUSH (22:01)
[2022-09-25] MEDS: Lactated Ringers 1,000 ML 125 ML IVCONT (22:38)
[2022-09-25] MEDS: Albuterol Sulfate 90 MCG 8 GM INHALER 2 PUFF INHALE (23:46)
[2022-09-26] VITALS: BP 97/56; PULSE 78; RESP 16; TEMP 36.6; O2SAT 94
[2022-09-26 03:58] VITALS: BP 120/64
[2022-09-26] MEDS: Morphine Sulfate 2 MG/ML CARTRIDGE IVPUSH ×5 (04:03→21:04)
[2022-09-26] MEDS: Lactated Ringers 1,000 ML 125 ML IVCONT ×3 (06:17→21:56)
[2022-09-26] MEDS: Pantoprazole Sodium 40 MG/10 ML VIAL IVPUSH (06:19)
[2022-09-26 07:54] VITALS: BP 126/69; PULSE 72; RESP 16; TEMP 36.6; O2SAT 95
--- NOTE | 2022-09-26 08:00 | PM.PNGS ---
Subjective Subjective Date of Service: 09/26/22 Interval history: passing more flatus still having episodes of upper abdominal pain although better has had no vomiting or nausea Physical Exam Vital Signs: Vital Signs: Last Vital Signs Temp 97.9 F 09/26/22 07:54 Pulse 72 09/26/22 07:54 Resp 16 09/26/22 07:54 BP 126/69 09/26/22 07:54 Pulse Ox 95 09/26/22 07:54 O2 Del Method Room Air 09/26/22 07:54 O2 Flow Rate 95 09/23/22 16:59 BMI result Body Mass Index 28.3 Const: General: comfortable and no acute distress Resp: Effort & Inspection: normal respiratory effort Cardio: Rate: regular rate GI: Inspection: No distended Palpation (GI): Soft to palpation, not firm, nontender and no guarding Objective Data Active Medications Albuterol Sulfate (Albuterol Sulfate 90 Mcg 8 Gm Inhaler) 2 puff INHALE Q6H PRN PRN Reason: for wheezing Last Admin: 09/25/22 23:46 Dose: 2 puff Documented By: DAYSI Albuterol/Ipratropium (Albuterol/Iprat 2.5/0.5mg 3 Ml Ampul.Neb) 3 ml INHALE Q6H PRN PRN Reason: BRONCHIECTASIS/BRONCHITIS Enoxaparin Sodium (Enoxaparin Sodium 40 Mg/0.4 Ml Syringe) 40 mg SUBCUT Q24H [facility] Last Admin: 09/25/22 17:58 Dose: 40 mg Documented By: ROSALBA Escitalopram Oxalate (Escitalopram Oxalate 10 Mg Tablet) 10 mg PO DAILY [facility] Last Admin: 09/25/22 08:29 Dose: 10 mg Documented By: ROSALBA Fluticasone Propionate (Fluticasone Propionate Nasal 16 Gm [place]) 1 spray NOSTRIL-B DAILY PRN PRN Reason: Allergy Symptoms Fluticasone/Vilanterol (Fluticasone/Vilanterol 200/25 Blst.W.Dev) 1 puff INHALE RDAILY [facility] Last Admin: 09/25/22 08:05 Dose: 1 puff Documented By: RAISSA Hydroxyzine HCl (Hydroxyzine Hcl 25 Mg Tablet) 25 mg PO BID PRN PRN Reason: anxiety Last Admin: 09/24/22 22:50 Dose: 25 mg Documented By: TRAMAINE Lactated Ringer's (Lr) 1,000 mls @ 125 mls/hr IVCONT .Q8H [facility] Last Admin: 09/26/22 06:17 Dose: 125 mls/hr Documented By: TRAMAINE Lidocaine (Lidocaine 4 % Patch Adh..Patch) 1 patch TRANSDERMA DAILY PRN PRN Reason: Pain Last Admin: 09/25/22 15:07 Dose: 1 patch Documented By: ROSALBA Lorazepam (Lorazepam 0.5 Mg Tablet) 0.5 mg PO BEDTIME PRN PRN Reason: Anxiety Last Admin: 09/25/22 22:00 Dose: 0.5 mg Documented By: TRAMAINE Metoprolol Succinate (Metoprolol Succinate Er 25 Mg Tab.Er.24h) 25 mg PO DAILY [facility]; Protocol Last Admin: 09/25/22 08:29 Dose: 25 mg Documented By: ROSALBA Morphine Sulfate (Morphine Sulfate 2 Mg/Ml Cartridge) 2 mg IVPUSH Q4H PRN; Protocol PRN Reason: Pain, Severe (Pain Scale 7-10) Last Admin: 09/26/22 04:03 Dose: 2 mg Documented By: ANNETTE Ondansetron HCl (Ondansetron Hcl 4 Mg/2 Ml Vial) 4 mg IVPUSH Q8H PRN PRN Reason: Nausea and Vomiting Last Admin: 09/24/22 04:07 Dose: 4 mg Documented By: KATIE Pantoprazole Sodium (Pantoprazole Sodium 40 Mg/10 Ml Vial) 40 mg IVPUSH DAILY@0630 [facility] Last Admin: 09/26/22 06:19 Dose: 40 mg Documented By: TRAMAINE Pharmacy Consult (Consult Rx Perform Med Rec) 1 each MISCELLANE ONCE PRN PRN Reason: Consult order Sodium Chloride (0.9 % Sodium Chloride Flush 3 Ml Syringe) 3 ml IVFLUSH QSHIFT [facility] Last Admin: 09/26/22 06:58 Dose: Not Given Documented By: ROSALBA Non-Admin Reason: IV Running Labs 09/24/22 05:38 09/24/22 05:38 Procedures Date of Service Date of Service: 09/26/22 Progress Note: A&P Assessment and plan (1) Small bowel obstruction: Status: Acute Assessment and Plan: symptoms much improved good and consistent passage of flatus abdominal exam benign clear liquid diet and was slowly advanced as tolerated encourage ambulation Time Spent With Patient Time: Total time managing care of this patient today ____ minutes. Quality Stroke Does the patient have a stroke diagnosis?: No VTE Prior VTE?: No VTE Risk Level:: Surgical - moderate VTE Device Contraindication: N/A - Device Ordered VTE Drug Contraindication: N/A - Med Ordered
[2022-09-26] MEDS: Metoprolol Succinate ER 25 MG TAB.ER.24H PO (08:31)
[2022-09-26] MEDS: Escitalopram Oxalate 10 MG TABLET PO (08:31)
[2022-09-26] MEDS: Albuterol Sulfate 90 MCG 8 GM INHALER 2 PUFF INHALE ×3 (09:54→21:41)
[2022-09-26 15:41] VITALS: BP 109/62; PULSE 60; RESP 16; TEMP 37.2; O2SAT 97
[2022-09-26] MEDS: hydrOXYzine HCL 25 MG TABLET PO (16:33)
[2022-09-26] MEDS: Enoxaparin Sodium 40 MG/0.4 ML SYRINGE SUBCUT (17:41)
[2022-09-26 21:41] VITALS: PULSE 65; RESP 16; O2SAT 93
[2022-09-26] MEDS: LORazepam 0.5 MG TABLET PO (21:54)
[2022-09-27] VITALS: BP 120/58; PULSE 74; RESP 16; TEMP 36.8; O2SAT 93
[2022-09-27] MEDS: Morphine Sulfate 2 MG/ML CARTRIDGE IVPUSH ×5 (02:10→21:37)
[2022-09-27] MEDS: Lactated Ringers 1,000 ML 125 ML IVCONT ×3 (05:25→21:41)
[2022-09-27 07:31] VITALS: BP 132/67; PULSE 80; RESP 20; TEMP 36.1; O2SAT 94
--- NOTE | 2022-09-27 07:54 | PM.PNGS ---
Subjective Subjective Date of Service: 09/27/22 Interval history: no vomitting passing good flatus says she still has epigastric pain although not as bad as on admission Physical Exam Vital Signs: Vital Signs: Last Vital Signs Temp 96.9 F 09/27/22 07:31 Pulse 80 09/27/22 07:31 Resp 20 09/27/22 07:31 BP 132/67 09/27/22 07:31 Pulse Ox 94 09/27/22 07:31 O2 Del Method Room Air 09/27/22 07:31 O2 Flow Rate 95 09/23/22 16:59 BMI result Body Mass Index 28.3 Const: General: comfortable and no acute distress Resp: Effort & Inspection: normal respiratory effort Cardio: Rate: regular rate GI: Palpation (GI): Soft to palpation, not firm, Tenderness to palpation present (GI) (some tenderness in epigastric area) and no guarding Objective Data Active Medications Albuterol Sulfate (Albuterol Sulfate 90 Mcg 8 Gm Inhaler) 2 puff INHALE Q6H PRN PRN Reason: for wheezing Last Admin: 09/26/22 21:41 Dose: 2 puff Documented By: NORA Albuterol/Ipratropium (Albuterol/Iprat 2.5/0.5mg 3 Ml Ampul.Neb) 3 ml INHALE Q6H PRN PRN Reason: BRONCHIECTASIS/BRONCHITIS Enoxaparin Sodium (Enoxaparin Sodium 40 Mg/0.4 Ml Syringe) 40 mg SUBCUT Q24H [facility] Last Admin: 09/26/22 17:41 Dose: 40 mg Documented By: ROSALBA Escitalopram Oxalate (Escitalopram Oxalate 10 Mg Tablet) 10 mg PO DAILY [facility] Last Admin: 09/26/22 08:31 Dose: 10 mg Documented By: ROSALBA Fluticasone Propionate (Fluticasone Propionate Nasal 16 Gm [place]) 1 spray NOSTRIL-B DAILY PRN PRN Reason: Allergy Symptoms Fluticasone/Vilanterol (Fluticasone/Vilanterol 200/25 Blst.W.Dev) 1 puff INHALE RDAILY [facility] Last Admin: 09/27/22 07:54 Dose: Not Given Documented By: DALIA Non-Admin Reason: Patient Refused Hydroxyzine HCl (Hydroxyzine Hcl 25 Mg Tablet) 25 mg PO BID PRN PRN Reason: anxiety Last Admin: 09/26/22 16:33 Dose: 25 mg Documented By: ROSALBA Lactated Ringer's (Lr) 1,000 mls @ 125 mls/hr IVCONT .Q8H [facility] Last Admin: 09/27/22 05:25 Dose: 125 mls/hr Documented By: JOHANA Lidocaine (Lidocaine 4 % Patch Adh..Patch) 1 patch TRANSDERMA DAILY PRN PRN Reason: Pain Last Admin: 09/25/22 15:07 Dose: 1 patch Documented By: ROSALBA Lorazepam (Lorazepam 0.5 Mg Tablet) 0.5 mg PO BEDTIME PRN PRN Reason: Anxiety Last Admin: 09/26/22 21:54 Dose: 0.5 mg Documented By: JOHANA Metoprolol Succinate (Metoprolol Succinate Er 25 Mg Tab.Er.24h) 25 mg PO DAILY [facility]; Protocol Last Admin: 09/26/22 08:31 Dose: 25 mg Documented By: ROSALBA Morphine Sulfate (Morphine Sulfate 2 Mg/Ml Cartridge) 2 mg IVPUSH Q4H PRN; Protocol PRN Reason: Pain, Severe (Pain Scale 7-10) Last Admin: 09/27/22 02:10 Dose: 2 mg Documented By: JOHANA Ondansetron HCl (Ondansetron Hcl 4 Mg/2 Ml Vial) 4 mg IVPUSH Q8H PRN PRN Reason: Nausea and Vomiting Last Admin: 09/24/22 04:07 Dose: 4 mg Documented By: KATIE Pharmacy Consult (Consult Rx Perform Med Rec) 1 each MISCELLANE ONCE PRN PRN Reason: Consult order Sodium Chloride (0.9 % Sodium Chloride Flush 3 Ml Syringe) 3 ml IVFLUSH QSHIFT [facility] Last Admin: 09/26/22 21:59 Dose: Not Given Documented By: JOHANA Non-Admin Reason: IV Running Labs 09/24/22 05:38 09/24/22 05:38 Procedures Date of Service Date of Service: 09/27/22 Progress Note: A&P Assessment and plan (1) Small bowel obstruction: Status: Acute Assessment and Plan: seems resolved, with good flatus, BMs, no vomitting she still has some epigastric pain and feels anxious about this will repeat CT otherwise looks well and comfortable Time Spent With Patient Time: Total time managing care of this patient today ____ minutes. Quality Stroke Does the patient have a stroke diagnosis?: No VTE Prior VTE?: No VTE Risk Level:: Surgical - moderate VTE Device Contraindication: N/A - Device Ordered VTE Drug Contraindication: N/A - Med Ordered
[2022-09-27] MEDS: hydrOXYzine HCL 25 MG TABLET PO (08:16)
[2022-09-27] MEDS: Escitalopram Oxalate 10 MG TABLET PO (08:16)
[2022-09-27] MEDS: Metoprolol Succinate ER 25 MG TAB.ER.24H PO (08:16)
[2022-09-27] MEDS: 0.9 % Sodium Chloride Flush 3 ML SYRINGE IVFLUSH (08:17)
[2022-09-27] MEDS: Lidocaine 4 % Patch ADH..PATCH 1 PATCH TRANSDERMA (08:21)
[2022-09-27] MEDS: iohexoL 350 MG/ML 100 ML INFUS..BTL IV (10:06)
[2022-09-27] MEDS: Albuterol Sulfate 90 MCG 8 GM INHALER 2 PUFF INHALE (12:45)
[2022-09-27 12:47] VITALS: PULSE 68; RESP 18; O2SAT 92
[2022-09-27 15:19] VITALS: BP 108/59; PULSE 69; RESP 16; TEMP 36.6; O2SAT 95
[2022-09-27] MEDS: Enoxaparin Sodium 40 MG/0.4 ML SYRINGE SUBCUT (17:30)
[2022-09-27] MEDS: LORazepam 0.5 MG TABLET PO (21:36)
[2022-09-27 23:38] VITALS: BP 142/86; PULSE 77; RESP 16; TEMP 36.4; O2SAT 94
[2022-09-28] MEDS: Morphine Sulfate 2 MG/ML CARTRIDGE IVPUSH ×6 (02:35→23:53)
[2022-09-28 07:25] VITALS: BP 144/82; PULSE 71; RESP 16; TEMP 38.1; O2SAT 95
[2022-09-28 07:41] VITALS: PULSE 71; RESP 18; O2SAT 95
[2022-09-28] MEDS: Albuterol Sulfate 90 MCG 8 GM INHALER 2 PUFF INHALE (07:41)
[2022-09-28 08:25] VITALS: TEMP 36.8
[2022-09-28] MEDS: Escitalopram Oxalate 10 MG TABLET PO (08:26)
[2022-09-28] MEDS: Metoprolol Succinate ER 25 MG TAB.ER.24H PO (08:26)
--- NOTE | 2022-09-28 08:26 | P.PNGS_ITS ---
Subjective Subjective Date of Service: 10/03/22 Interval history: passing good flatus she feels constipated - passing small particles of hard stools no N/V still has upper abdl discomfort Physical Exam Vital Signs: Vital Signs: Last Vital Signs Temp 98.2 F 09/28/22 08:25 Pulse 71 09/28/22 07:41 Resp 18 09/28/22 07:41 BP 144/82 H 09/28/22 07:25 Pulse Ox 95 09/28/22 07:25 O2 Del Method Room Air 09/28/22 07:25 O2 Flow Rate 95 09/23/22 16:59 BMI result Body Mass Index 28.3 Const: General: comfortable and no acute distress Resp: Effort & Inspection: normal respiratory effort Cardio: Rate: regular rate GI: Palpation (GI): Soft to palpation, not firm, nontender and no guarding Objective Data Active Medications Acetaminophen (Acetaminophen 325 Mg Tablet) 650 mg PO Q6H PRN PRN Reason: Fever Albuterol Sulfate (Albuterol Sulfate 90 Mcg 8 Gm Inhaler) 2 puff INHALE Q6H PRN PRN Reason: for wheezing Last Admin: 09/28/22 07:41 Dose: 2 puff Documented By: DALIA Albuterol/Ipratropium (Albuterol/Iprat 2.5/0.5mg 3 Ml Ampul.Neb) 3 ml INHALE Q6H PRN PRN Reason: BRONCHIECTASIS/BRONCHITIS Enoxaparin Sodium (Enoxaparin Sodium 40 Mg/0.4 Ml Syringe) 40 mg SUBCUT Q24H [facility] Last Admin: 09/27/22 17:30 Dose: 40 mg Documented By: LEILANI Escitalopram Oxalate (Escitalopram Oxalate 10 Mg Tablet) 10 mg PO DAILY [facility] Last Admin: 09/27/22 08:16 Dose: 10 mg Documented By: LEILANI Fluticasone Propionate (Fluticasone Propionate Nasal 16 Gm [place]) 1 spray NOSTRIL-B DAILY PRN PRN Reason: Allergy Symptoms Fluticasone/Vilanterol (Fluticasone/Vilanterol 200/25 Blst.W.Dev) 1 puff INHALE RDAILY [facility] Last Admin: 09/28/22 07:40 Dose: Not Given Documented By: DALIA Non-Admin Reason: Patient Refused Hydroxyzine HCl (Hydroxyzine Hcl 25 Mg Tablet) 25 mg PO BID PRN PRN Reason: anxiety Last Admin: 09/27/22 08:16 Dose: 25 mg Documented By: LEILANI Lidocaine (Lidocaine 4 % Patch Adh..Patch) 1 patch TRANSDERMA DAILY PRN PRN Reason: Pain Last Admin: 09/27/22 08:21 Dose: 1 patch Documented By: LEILANI Lorazepam (Lorazepam 0.5 Mg Tablet) 0.5 mg PO BEDTIME PRN PRN Reason: Anxiety Last Admin: 09/27/22 21:36 Dose: 0.5 mg Documented By: MAR YLOU Metoprolol Succinate (Metoprolol Succinate Er 25 Mg Tab.Er.24h) 25 mg PO DAILY [facility]; Protocol Last Admin: 09/27/22 08:16 Dose: 25 mg Documented By: LEILANI Morphine Sulfate (Morphine Sulfate 2 Mg/Ml Cartridge) 2 mg IVPUSH Q4H PRN; Protocol PRN Reason: Pain, Severe (Pain Scale 7-10) Last Admin: 09/28/22 06:40 Dose: 2 mg Documented By: MARY LOU Ondansetron HCl (Ondansetron Hcl 4 Mg/2 Ml Vial) 4 mg IVPUSH Q8H PRN PRN Reason: Nausea and Vomiting Last Admin: 09/24/22 04:07 Dose: 4 mg Documented By: KATIE Pharmacy Consult (Consult Rx Perform Med Rec) 1 each MISCELLANE ONCE PRN PRN Reason: Consult order Sodium Chloride (0.9 % Sodium Chloride Flush 3 Ml Syringe) 3 ml IVFLUSH [facility] Last Admin: 09/28/22 00:06 Dose: Not Given Documented By: MARY LOU Non-Admin Reason: IV Running Labs 09/24/22 05:38 09/24/22 05:38 Labs: Laboratory Results WBC 6.3 X10*3/uL (4.8-10.8) 09/24/22 05:38 RBC 3.13 X10*6/uL (4.20-5.50) L 09/24/22 05:38 Hgb 10.2 g/dl (12.0-16.0) L 09/24/22 05:38 Hct 31.0 % (37.0-47.0) L 09/24/22 05:38 MCV 99.0 fL (80.0-98.0) H 09/24/22 05:38 MCH 32.6 pg (27.0-33.0) 09/24/22 05:38 MCHC 32.9 g/dl (31.0-35.0) 09/24/22 05:38 RDW 13.2 % (11.0-16.0) 09/24/22 05:38 Plt Count 230 X10*3/uL (160-400) 09/24/22 05:38 MPV 9.3 fL (9.4-12.3) L 09/24/22 05:38 Immature Gran % (Auto) 0.3 % (0.0-0.4) 09/24/22 05:38 Neut % (Auto) 68.3 % (45-73) 09/24/22 05:38 Lymph % (Auto) 19.9 % (20-40) L 09/24/22 05:38 [place] % (Auto) 11.0 % (2-11) 09/24/22 05:38 Eos % (Auto) 0.0 % (0-4) 09/24/22 05:38 Baso % (Auto) 0.5 % (0-2) 09/24/22 05:38 Lymph # (Auto) 1.3 X10*3/uL (1.2-4.9) 09/24/22 05:38 [place] # (Auto) 0.7 X10*3/uL (0.1-1.2) 09/24/22 05:38 Eos # (Auto) 0.0 X10*3/uL (0.0-0.4) 09/24/22 05:38 Baso # (Auto) 0.0 X10*3/uL (0.0-0.2) 09/24/22 05:38 Abs Immat Gran (auto) 0.02 X10*3/uL (0.00-0.03) 09/24/22 05:38 Absolute Neuts (auto) 4.3 x10*3/uL (2.0-8.3) 09/24/22 05:38 Absolute Nucleated RBC 0.000 X10*3/uL (0.0-0.012) 09/24/22 05:38 Nucleated RBC % (auto) 0.0 /100WBC (0.0-0.2) 09/24/22 05:38 PT 10.9 SEC (10.0-13.1) 09/23/22 13:08 INR 1.0 (0.9-1.1) 09/23/22 13:08 Sodium 137 mmol/L (135-145) 09/24/22 05:38 Potassium 4.3 mmol/L (3.3-5.1) 09/24/22 05:38 Chloride 107 mmol/L (96-108) 09/24/22 05:38 Carbon Dioxide 23 mmol/L (22-29) 09/24/22 05:38 Anion Gap 11 (12-20) L 09/24/22 05:38 BUN 22 mg/dL (9-16) H 09/24/22 05:38 Creatinine 0.79 mg/dL (0.5-1.4) 09/24/22 05:38 Estim Creat Clear Calc 55.1 09/24/22 05:38 Estimated GFR > 60 09/24/22 05:38 Random Glucose 100 mg/dL (60-115) 09/24/22 05:38 Calcium 8.5 mg/dL (8.4-10.2) D 09/24/22 05:38 Magnesium 2.1 mg/dL (1.6-2.6) 09/23/22 13:08 Total Bilirubin 0.5 mg/dL (0.0-1.0) 09/23/22 13:08 Direct Bilirubin 0.2 mg/dL (0.0-0.5) 09/23/22 13:08 AST 58 U/L (5-31) H 09/23/22 13:08 ALT 60 U/L (0-31) H 09/23/22 13:08 Alkaline Phosphatase 131 U/L (39-117) H 09/23/22 13:08 Total Protein 8.1 g/dL (6.5-8.0) H 09/23/22 13:08 Albumin 3.6 g/dL (3.5-5.0) 09/23/22 13:08 Lipase 15 U/L (8-78) 09/23/22 13:08 Urine Color Yellow 09/23/22 20:57 Urine Appearance Clear 09/23/22 20:57 Urine pH 5.0 (5.0-9.0) 09/23/22 20:57 Ur Specific Premium >= 1.030 (1.005-1.025) H 09/23/22 20:57 Urine Protein Trace mg/dL (Neg-Trace) 09/23/22 20:57 Urine Glucose (UA) Negative mg/dL (Negative) 09/23/22 20:57 Urine Ketones Trace mg/dL (Negative) 09/23/22 20:57 Urine Blood Small (1+) (Negative) H 09/23/22 20:57 Urine Nitrite Negative (Negative) 09/23/22 20:57 Ur Leukocyte Esterase Negative (Negative) 09/23/22 20:57 Urine RBC >20 /HPF (0-2) H 09/23/22 20:57 Urine WBC 0-5 /HPF (0-5) 09/23/22 20:57 Ur Squamous Epith Cells 0-2 /HPF (0-2) 09/23/22 20:57 Urine Bacteria None Seen (None Seen) 09/23/22 20:57 Hyaline Casts 0-2 /LPF (0-2) 09/23/22 20:57 Impressions Chest X-Ray 09/23/22 12:45 IMPRESSION: Chronic interstitial changes correlating with previous studies without overt acute cardiopulmonary process. Abdomen/Pelvis CT 09/27/22 10:07 IMPRESSION: 1. There is continued dilatation of small bowel loops. The severity has improved since the exam of 09/23/2022. 2. Abdominal ascites now present. 3. Status post cholecystectomy. Chronic dilatation of the extrahepatic CBD. Fleischner guidelines were followed. Procedures Date of Service Date of Service: 10/03/22 Progress Note: A&P Assessment and plan (1) Small bowel obstruction: Status: Acute Assessment and Plan: clinically not obstructed still has abdl discomfort will review ffup CT with radiologist - still with some SB dilatation although less will start on Colace for constipation exam remains benign Time Spent With Patient Time: Total time managing care of this patient today ____ minutes. Quality Stroke Does the patient have a stroke diagnosis?: No VTE Prior VTE?: No VTE Risk Level:: Surgical - moderate VTE Device Contraindication: N/A - Device Ordered VTE Drug Contraindication: N/A - Med Ordered
[2022-09-28] MEDS: 0.9 % Sodium Chloride Flush 3 ML SYRINGE IVFLUSH (08:27)
[2022-09-28] MEDS: Lactated Ringers 1,000 ML 80 ML IVCONT ×2 (08:37→20:16)
[2022-09-28] MEDS: Docusate Sodium 100 MG CAPSULE PO ×2 (08:37→20:09)
[2022-09-28] MEDS: hydrOXYzine HCL 25 MG TABLET PO (08:37)
--- NOTE | 2022-09-28 10:27 | MHC.CLN ---
F/U CLEAR LIQUID DIET SINCE 09/26. ADDING ENSURE CLEAR TID TO PROVIDE ADDITIONAL 720 KCALS, 24 G PROTEIN. MONITOR FOR DIET ADVANCEMENT AND INTAKE.
--- NOTE | 2022-09-28 14:40 | MHC.CM.PN ---
EMR REVIEWED, PT HAS NOT BEEN MEDICALLY CLEARED FOR DC (ABDOMINAL PAIN, CONSTIPATION) CM WILL CONTINUE TO FOLLOW FOR ANY CHANGE IN DC PLAN/NEEDS
[2022-09-28 15:15] VITALS: BP 136/67; PULSE 70; RESP 18; TEMP 36.5; O2SAT 94
--- NOTE | 2022-09-28 15:33 | PM.EVENT ---
Event Note Date of Service: 09/28/22 Event Note: ffup CT images reviewed again with radiologist Dr Gonzalez ? inflammatory changes around terminal ileum and cecum? recommended to repeat CT with gastrograffin pt continues to pass good flatus abd soft and benign although she says she still has upper abdl discomfort will order CT with gastrograffin PO tomorrow Time Spent With Patient Time: Total time managing care of this patient today ____ minutes.
[2022-09-28] MEDS: Enoxaparin Sodium 40 MG/0.4 ML SYRINGE SUBCUT (17:23)
[2022-09-28] MEDS: LORazepam 0.5 MG TABLET PO (23:53)
[2022-09-28] MEDS: ondansetron HCL 4 MG/2 ML VIAL IVPUSH (23:53)
[2022-09-29] VITALS: BP 130/60; PULSE 69; RESP 16; TEMP 36.8; O2SAT 95
[2022-09-29] MEDS: Morphine Sulfate 2 MG/ML CARTRIDGE IVPUSH ×4 (06:27→20:52)
[2022-09-29 07:28] VITALS: BP 118/63; PULSE 78; RESP 18; TEMP 36.1; O2SAT 92
[2022-09-29 07:35] VITALS: PULSE 72; RESP 18; O2SAT 94
[2022-09-29] MEDS: Albuterol Sulfate 90 MCG 8 GM INHALER 2 PUFF INHALE ×2 (07:35→20:50)
[2022-09-29] MEDS: Escitalopram Oxalate 10 MG TABLET PO (07:45)
[2022-09-29] MEDS: Metoprolol Succinate ER 25 MG TAB.ER.24H PO (07:45)
[2022-09-29] MEDS: Docusate Sodium 100 MG CAPSULE PO ×2 (07:46→20:51)
[2022-09-29] MEDS: 0.9 % Sodium Chloride Flush 3 ML SYRINGE IVFLUSH (07:47)
--- NOTE | 2022-09-29 09:18 | P.PNGS_ITS ---
Subjective Subjective Date of Service: 09/30/22 Interval history: feels well says she still has periodic upper abdl pain passing good amounts of flatus Physical Exam Vital Signs: Vital Signs: Last Vital Signs Temp 97.0 F 09/29/22 07:28 Pulse 72 09/29/22 07:35 Resp 18 09/29/22 07:35 BP 118/63 09/29/22 07:28 Pulse Ox 92 09/29/22 07:28 O2 Del Method Room Air 09/29/22 07:28 O2 Flow Rate 95 09/23/22 16:59 BMI result Body Mass Index 28.3 Const: General: comfortable and no acute distress Resp: Effort & Inspection: normal respiratory effort Cardio: Rate: regular rate GI: Palpation (GI): Soft to palpation, not firm, nontender and no guarding Objective Data Active Medications Acetaminophen (Acetaminophen 325 Mg Tablet) 650 mg PO Q6H PRN PRN Reason: Fever Albuterol Sulfate (Albuterol Sulfate 90 Mcg 8 Gm Inhaler) 2 puff INHALE Q6H PRN PRN Reason: for wheezing Last Admin: 09/29/22 07:35 Dose: 2 puff Documented By: DALIA Albuterol/Ipratropium (Albuterol/Iprat 2.5/0.5mg 3 Ml Ampul.Neb) 3 ml INHALE Q6H PRN PRN Reason: BRONCHIECTASIS/BRONCHITIS Docusate Sodium (Docusate Sodium 100 Mg Capsule) 100 mg PO BID [facility] Last Admin: 09/29/22 07:46 Dose: 100 mg Documented By: MELODY Enoxaparin Sodium (Enoxaparin Sodium 40 Mg/0.4 Ml Syringe) 40 mg SUBCUT Q24H [facility] Last Admin: 09/28/22 17:23 Dose: 40 mg Documented By: LEILANI Escitalopram Oxalate (Escitalopram Oxalate 10 Mg Tablet) 10 mg PO DAILY [facility] Last Admin: 09/29/22 07:45 Dose: 10 mg Documented By: MELODY Fluticasone Propionate (Fluticasone Propionate Nasal 16 Gm [place]) 1 spray NOSTRIL-B DAILY PRN PRN Reason: Allergy Symptoms Fluticasone/Vilanterol (Fluticasone/Vilanterol 200/25 Blst.W.Dev) 1 puff INHALE RDAILY [facility] Last Admin: 09/29/22 07:33 Dose: Not Given Documented By: DALIA Non-Admin Reason: Patient Refused Hydroxyzine HCl (Hydroxyzine Hcl 25 Mg Tablet) 25 mg PO BID PRN PRN Reason: anxiety Last Admin: 09/28/22 08:37 Dose: 25 mg Documented By: LEILANI Lactated Ringer's (Lr) 1,000 mls @ 80 mls/hr IVCONT .[id number] [facility] Last Admin: 09/28/22 20:16 Dose: 80 mls/hr Documented By: JOHANA Lidocaine (Lidocaine 4 % Patch Adh..Patch) 1 patch TRANSDERMA DAILY PRN PRN Reason: Pain Last Admin: 09/27/22 08:21 Dose: 1 patch Documented By: LEIALNI Lorazepam (Lorazepam 0.5 Mg Tablet) 0.5 mg PO BEDTIME PRN PRN Reason: Anxiety Last Admin: 09/28/22 23:53 Dose: 0.5 mg Documented By: JOHANA Metoprolol Succinate (Metoprolol Succinate Er 25 Mg Tab.Er.24h) 25 mg PO DAILY [facility]; Protocol Last Admin: 09/29/22 07:45 Dose: 25 mg Documented By: MELODY Morphine Sulfate (Morphine Sulfate 2 Mg/Ml Cartridge) 2 mg IVPUSH Q4H PRN; Protocol PRN Reason: Pain, Severe (Pain Scale 7-10) Last Admin: 09/29/22 06:27 Dose: 2 mg Documented By: JOHANA Ondansetron HCl (Ondansetron Hcl 4 Mg/2 Ml Vial) 4 mg IVPUSH Q8H PRN PRN Reason: Nausea and Vomiting Last Admin: 09/28/22 23:53 Dose: 4 mg Documented By: JOHANA Pharmacy Consult (Consult Rx Perform Med Rec) 1 each MISCELLANE ONCE PRN PRN Reason: Consult order Sodium Chloride (0.9 % Sodium Chloride Flush 3 Ml Syringe) 3 ml IVFLUSH QSHIFT [facility] Last Admin: 09/29/22 07:47 Dose: 3 ml Documented By: MELODY Labs 09/24/22 05:38 09/24/22 05:38 Procedures Date of Service Date of Service: 09/30/22 Progress Note: A&P Assessment and plan (1) Small bowel obstruction: Status: Acute Assessment and Plan: passing good amounts of flatus but says she still has periodic upper abdl pain Ct images reviewed - some SB dilatation, ?inflammatory changes around TI, cecum; CT with oral contrast recommended to further delineated bowel loops exam very benign will review ffup CT later check lytes tomorrow Time Spent With Patient Time: Total time managing care of this patient today ____ minutes. Quality Stroke Does the patient have a stroke diagnosis?: No VTE Prior VTE?: No VTE Risk Level:: Surgical - moderate VTE Device Contraindication: N/A - Device Ordered VTE Drug Contraindication: N/A - Med Ordered
[2022-09-29] MEDS: Diatrizoate Meglumine, Sodium 30 ML SOLUTION PO (11:05)
[2022-09-29] MEDS: Lactated Ringers 1,000 ML 80 ML IVCONT (12:00)
[2022-09-29 15:36] VITALS: BP 113/68; PULSE 68; RESP 18; TEMP 36.3; O2SAT 93
[2022-09-29] MEDS: Enoxaparin Sodium 40 MG/0.4 ML SYRINGE SUBCUT (17:38)
[2022-09-29] MEDS: hydrOXYzine HCL 25 MG TABLET PO (20:51)
[2022-09-30] VITALS: BP 134/61; PULSE 70; RESP 20; TEMP 36.6; O2SAT 95
[2022-09-30] MEDS: Lactated Ringers 1,000 ML 80 ML IVCONT ×3 (00:59→22:03)
[2022-09-30] MEDS: Morphine Sulfate 2 MG/ML CARTRIDGE IVPUSH ×5 (01:06→23:45)
[2022-09-30 07:26] VITALS: BP 129/67; PULSE 76; RESP 18; TEMP 36.1; O2SAT 96
[2022-09-30] MEDS: Albuterol Sulfate 90 MCG 8 GM INHALER 2 PUFF INHALE (07:41)
[2022-09-30 07:42] VITALS: PULSE 68; RESP 18; O2SAT 95
[2022-09-30] MEDS: Docusate Sodium 100 MG CAPSULE PO ×2 (08:18→20:05)
[2022-09-30] MEDS: Metoprolol Succinate ER 25 MG TAB.ER.24H PO (08:18)
[2022-09-30] MEDS: Escitalopram Oxalate 10 MG TABLET PO (08:18)
[2022-09-30 08:42] LABS: Anion Gap 11 (12-20); Blood Urea Nitrogen 5 mg/dL (9-16); Calcium 8.1 mg/dL (8.4-10.2); Carbon Dioxide 26 mmol/L (22-29); Chloride 104 mmol/L (96-108); Creatinine Clr Calc Pharmacy 71.3; Estimated Glomerular Filt Rate > 60; Glucose Random 71 mg/dL (60-115); Potassium 3.4 mmol/L (3.3-5.1); Sodium 138 mmol/L (135-145)
--- NOTE | 2022-09-30 09:46 | PM.PNGS ---
Subjective Subjective Date of Service: 09/30/22 Interval history: passing flatus well has BMs says she still has periodic upper abd pain with PO intake Physical Exam Vital Signs: Vital Signs: Last Vital Signs Temp 97.0 F 09/30/22 07:26 Pulse 68 09/30/22 07:42 Resp 18 09/30/22 07:42 BP 129/67 09/30/22 07:26 Pulse Ox 96 09/30/22 07:26 O2 Del Method Room Air 09/30/22 07:26 O2 Flow Rate 95 09/23/22 16:59 BMI result Body Mass Index 28.3 Const: General: comfortable and no acute distress Resp: Effort & Inspection: normal respiratory effort Cardio: Rate: regular rate GI: Palpation (GI): Soft to palpation, not firm and nontender Objective Data Active Medications Acetaminophen (Acetaminophen 325 Mg Tablet) 650 mg PO Q6H PRN PRN Reason: Fever Albuterol Sulfate (Albuterol Sulfate 90 Mcg 8 Gm Inhaler) 2 puff INHALE Q6H PRN PRN Reason: for wheezing Last Admin: 09/30/22 07:41 Dose: 2 puff Documented By: DALIA Albuterol/Ipratropium (Albuterol/Iprat 2.5/0.5mg 3 Ml Ampul.Neb) 3 ml INHALE Q6H PRN PRN Reason: BRONCHIECTASIS/BRONCHITIS Docusate Sodium (Docusate Sodium 100 Mg Capsule) 100 mg PO BID [facility] Last Admin: 09/30/22 08:18 Dose: 100 mg Documented By: MELODY Enoxaparin Sodium (Enoxaparin Sodium 40 Mg/0.4 Ml Syringe) 40 mg SUBCUT Q24H [facility] Last Admin: 09/29/22 17:38 Dose: 40 mg Documented By: MELODY Escitalopram Oxalate (Escitalopram Oxalate 10 Mg Tablet) 10 mg PO DAILY [facility] Last Admin: 09/30/22 08:18 Dose: 10 mg Documented By: MELODY Fluticasone Propionate (Fluticasone Propionate Nasal 16 Gm [place]) 1 spray NOSTRIL-B DAILY PRN PRN Reason: Allergy Symptoms Fluticasone/Vilanterol (Fluticasone/Vilanterol 200/25 Blst.W.Dev) 1 puff INHALE RDAILY [facility] Last Admin: 09/30/22 07:42 Dose: Not Given Documented By: DALIA Non-Admin Reason: Patient Refused Hydroxyzine HCl (Hydroxyzine Hcl 25 Mg Tablet) 25 mg PO BID PRN PRN Reason: anxiety Last Admin: 09/29/22 20:51 Dose: 25 mg Documented By: TRAMAINE Lactated Ringer's (Lr) 1,000 mls @ 80 mls/hr IVCONT .[id number] [facility] Last Admin: 09/30/22 00:59 Dose: 80 mls/hr Documented By: TRAMAINE Lidocaine (Lidocaine 4 % Patch Adh..Patch) 1 patch TRANSDERMA DAILY PRN PRN Reason: Pain Last Admin: 09/27/22 08:21 Dose: 1 patch Documented By: LEILANI Lorazepam (Lorazepam 0.5 Mg Tablet) 0.5 mg PO BEDTIME PRN PRN Reason: Anxiety Last Admin: 09/28/22 23:53 Dose: 0.5 mg Documented By: JOHANA Metoprolol Succinate (Metoprolol Succinate Er 25 Mg Tab.Er.24h) 25 mg PO DAILY [facility]; Protocol Last Admin: 09/30/22 08:18 Dose: 25 mg Documented By: MELODY Morphine Sulfate (Morphine Sulfate 2 Mg/Ml Cartridge) 2 mg IVPUSH Q4H PRN; Protocol PRN Reason: Pain, Severe (Pain Scale 7-10) Last Admin: 09/30/22 07:48 Dose: 2 mg Documented By: MELODY Ondansetron HCl (Ondansetron Hcl 4 Mg/2 Ml Vial) 4 mg IVPUSH Q8H PRN PRN Reason: Nausea and Vomiting Last Admin: 09/28/22 23:53 Dose: 4 mg Documented By: JOHANA Pharmacy Consult (Consult Rx Perform Med Rec) 1 each MISCELLANE ONCE PRN PRN Reason: Consult order Sodium Chloride (0.9 % Sodium Chloride Flush 3 Ml Syringe) 3 ml IVFLUSH QSHIFT [facility] Last Admin: 09/30/22 08:15 Dose: Not Given Documented By: MELODY Non-Admin Reason: IV Running Labs 09/24/22 05:38 09/30/22 06:53 Labs: Laboratory Results - last 24 hr 09/30/22 06:53 Anion Gap 11 L Estim Creat Clear Calc 71.3 Estimated GFR > 60 Random Glucose 71 Calcium 8.1 L Procedures Date of Service Date of Service: 10/02/22 Progress Note: A&P Assessment and plan (1) Small bowel obstruction: Status: Acute Assessment and Plan: passing flatus and BMs she feels she is not ready to eat real food as she has pain on upper abd with oral intake CT repeated with contrast - contrast has reached colon but possible PSBO in ileum clinically well otherwise lytes ok she is willing to try full liquids she has had no N/V Time Spent With Patient Time: Total time managing care of this patient today ____ minutes. Quality Stroke Does the patient have a stroke diagnosis?: No VTE Prior VTE?: No VTE Risk Level:: Surgical - moderate VTE Device Contraindication: N/A - Device Ordered VTE Drug Contraindication: N/A - Med Ordered
[2022-09-30 15:29] VITALS: BP 115/64; PULSE 73; RESP 16; TEMP 36.7; O2SAT 96
[2022-09-30] MEDS: Omeprazole 20 MG CAPSULE.DR PO (17:42)
[2022-09-30] MEDS: Enoxaparin Sodium 40 MG/0.4 ML SYRINGE SUBCUT (17:43)
[2022-09-30] MEDS: LORazepam 0.5 MG TABLET PO (20:11)
[2022-09-30 23:36] VITALS: BP 139/80; PULSE 66; RESP 16; TEMP 37.1; O2SAT 94
[2022-09-30] MEDS: hydrOXYzine HCL 25 MG TABLET PO (23:46)
[2022-10-01] MEDS: Morphine Sulfate 2 MG/ML CARTRIDGE IVPUSH ×5 (03:44→21:33)
[2022-10-01] MEDS: Albuterol Sulfate 90 MCG 8 GM INHALER 2 PUFF INHALE ×3 (03:51→21:30)
[2022-10-01 03:53] VITALS: PULSE 75; RESP 16; O2SAT 94
[2022-10-01] MEDS: Omeprazole 20 MG CAPSULE.DR PO ×2 (06:08→17:22)
[2022-10-01 07:05] VITALS: BP 141/67; PULSE 72; RESP 16; TEMP 36.1; O2SAT 94
[2022-10-01 07:45] VITALS: PULSE 67; RESP 18; O2SAT 95
--- NOTE | 2022-10-01 07:46 | PM.PNGS ---
Subjective Subjective Date of Service: 10/01/22 Interval history: seems to tolerate full liquids still has some episodic upper abdl pain she says PRilosec appears to be helping stools loose Physical Exam Vital Signs: Vital Signs: Last Vital Signs Temp 97 F 10/01/22 07:05 Pulse 72 10/01/22 07:05 Resp 16 10/01/22 07:05 BP 141/67 H 10/01/22 07:05 Pulse Ox 94 10/01/22 07:05 O2 Del Method Room Air 10/01/22 07:05 O2 Flow Rate 95 09/23/22 16:59 BMI result Body Mass Index 28.3 Const: General: comfortable and no acute distress Resp: Effort & Inspection: normal respiratory effort Cardio: Rate: regular rate GI: Palpation (GI): Soft to palpation, not firm, Tenderness to palpation present (GI) (mild tenderness upper abd) and no guarding Objective Data Active Medications Acetaminophen (Acetaminophen 325 Mg Tablet) 650 mg PO Q6H PRN PRN Reason: Fever Albuterol Sulfate (Albuterol Sulfate 90 Mcg 8 Gm Inhaler) 2 puff INHALE Q6H PRN PRN Reason: for wheezing Last Admin: 10/01/22 07:45 Dose: 2 puff Documented By: DALIA Docusate Sodium (Docusate Sodium 100 Mg Capsule) 100 mg PO BID [facility] Last Admin: 09/30/22 20:05 Dose: 100 mg Documented By: FLORENCIA Enoxaparin Sodium (Enoxaparin Sodium 40 Mg/0.4 Ml Syringe) 40 mg SUBCUT Q24H [facility] Last Admin: 09/30/22 17:43 Dose: 40 mg Documented By: MELODY Escitalopram Oxalate (Escitalopram Oxalate 10 Mg Tablet) 10 mg PO DAILY [facility] Last Admin: 09/30/22 08:18 Dose: 10 mg Documented By: MELODY Fluticasone Propionate (Fluticasone Propionate Nasal 16 Gm [place]) 1 spray NOSTRIL-B DAILY PRN PRN Reason: Allergy Symptoms Fluticasone/Vilanterol (Fluticasone/Vilanterol 200/25 Blst.W.Dev) 1 puff INHALE RDAILY [facility] Last Admin: 10/01/22 07:44 Dose: Not Given Documented By: DALIA Non-Admin Reason: Patient Refused Hydroxyzine HCl (Hydroxyzine Hcl 25 Mg Tablet) 25 mg PO BID PRN PRN Reason: anxiety Last Admin: 09/30/22 23:46 Dose: 25 mg Documented By: FLORENCIA Lactated Ringer's (Lr) 1,000 mls @ 80 mls/hr IVCONT .[id number] [facility] Last Admin: 09/30/22 22:03 Dose: 80 mls/hr Documented By: FLORENCIA Lidocaine (Lidocaine 4 % Patch Adh..Patch) 1 patch TRANSDERMA DAILY PRN PRN Reason: Pain Last Admin: 09/27/22 08:21 Dose: 1 patch Documented By: LEILANI Lorazepam (Lorazepam 0.5 Mg Tablet) 0.5 mg PO BEDTIME PRN PRN Reason: Anxiety Last Admin: 09/30/22 20:11 Dose: 0.5 mg Documented By: FLORENCIA Metoprolol Succinate (Metoprolol Succinate Er 25 Mg Tab.Er.24h) 25 mg PO DAILY [facility]; Protocol Last Admin: 09/30/22 08:18 Dose: 25 mg Documented By: MELODY Morphine Sulfate (Morphine Sulfate 2 Mg/Ml Cartridge) 2 mg IVPUSH Q4H PRN; Protocol PRN Reason: Pain, Severe (Pain Scale 7-10) Last Admin: 10/01/22 03:44 Dose: 2 mg Documented By: FLORENCIA Omeprazole (Omeprazole 20 Mg Capsule.Dr) 20 mg PO BID@0630,1630 [facility] Last Admin: 10/01/22 06:08 Dose: 20 mg Documented By: FLORENCIA Ondansetron HCl (Ondansetron Hcl 4 Mg/2 Ml Vial) 4 mg IVPUSH Q8H PRN PRN Reason: Nausea and Vomiting Last Admin: 09/28/22 23:53 Dose: 4 mg Documented By: JOHANA Pharmacy Consult (Consult Rx Perform Med Rec) 1 each MISCELLANE ONCE PRN PRN Reason: Consult order Sodium Chloride (0.9 % Sodium Chloride Flush 3 Ml Syringe) 3 ml IVFLUSH QSHIFT [facility] Last Admin: 09/30/22 22:03 Dose: Not Given Documented By: FLORENCIA Non-Admin Reason: IV Running Labs 09/24/22 05:38 09/30/22 06:53 Labs: Laboratory Results - last 24 hr 09/30/22 06:53 Anion Gap 11 L Estim Creat Clear Calc 71.3 Estimated GFR > 60 Random Glucose 71 Calcium 8.1 L Procedures Date of Service Date of Service: 10/02/22 Progress Note: A&P Assessment and plan (1) Small bowel obstruction: Status: Acute Assessment and Plan: tolerating full liquids BMs loose passing good flatus will review CT images - decreased caliber of SB in ileum but patent abd soft and benign Time Spent With Patient Time: Total time managing care of this patient today ____ minutes. Quality Stroke Does the patient have a stroke diagnosis?: No VTE Prior VTE?: No VTE Risk Level:: Surgical - moderate VTE Device Contraindication: N/A - Device Ordered VTE Drug Contraindication: N/A - Med Ordered
[2022-10-01] MEDS: Docusate Sodium 100 MG CAPSULE PO ×2 (07:59→21:31)
[2022-10-01] MEDS: Metoprolol Succinate ER 25 MG TAB.ER.24H PO (07:59)
[2022-10-01] MEDS: Escitalopram Oxalate 10 MG TABLET PO (07:59)
[2022-10-01] MEDS: 0.9 % Sodium Chloride Flush 3 ML SYRINGE IVFLUSH ×2 (08:00→21:32)
--- NOTE | 2022-10-01 09:59 | MHC.CLN ---
F/U DIET ADVANCED TO FULL LIQUIDS 09/30. TOLERATING FULL LIQUID DIET. ADDING ENSURE TID TO PROMOTE NUTRITIONAL INTAKE. PROVIDES 1050 KCALS, 609 G PROTEIN. MONITOR FOR DIET TOLERANCE/ADVANCEMENT.
--- NOTE | 2022-10-01 10:02 | MHC.CLN ---
F/U DIET ADVANCED TO FULL LIQUIDS 09/30. TOLERATING FULL LIQUID DIET. ADDING ENSURE TID TO PROMOTE NUTRITIONAL INTAKE. PROVIDES 1050 KCALS, 60 G PROTEIN. MONITOR FOR DIET TOLERANCE/ADVANCEMENT.
[2022-10-01] MEDS: Lactated Ringers 1,000 ML 80 ML IVCONT ×2 (12:44→22:41)
--- NOTE | 2022-10-01 13:44 | MHC.CM.PN ---
DP Home with resumption of [employer] services through [employer]. Patient has arranged for a friend to provide transportation home.
[2022-10-01 15:40] VITALS: BP 112/74; PULSE 66; RESP 18; TEMP 36.1; O2SAT 94
[2022-10-01] MEDS: Enoxaparin Sodium 40 MG/0.4 ML SYRINGE SUBCUT (17:23)
[2022-10-01] MEDS: LORazepam 0.5 MG TABLET PO (21:31)
[2022-10-01 23:43] VITALS: BP 147/70; PULSE 70; RESP 17; TEMP 36.8; O2SAT 97
[2022-10-02] MEDS: Morphine Sulfate 2 MG/ML CARTRIDGE IVPUSH ×6 (04:19→22:40)
[2022-10-02] MEDS: Omeprazole 20 MG CAPSULE.DR PO ×2 (04:20→16:32)
[2022-10-02 07:02] VITALS: BP 133/61; PULSE 68; RESP 16; TEMP 36.6; O2SAT 93
[2022-10-02] MEDS: Fluticasone/Vilanterol 200/25 BLST.W.DEV 1 PUFF INHALE (07:54)
[2022-10-02 07:55] VITALS: PULSE 72; RESP 16; O2SAT 97
--- NOTE | 2022-10-02 08:10 | P.PNGS_ITS ---
Subjective Subjective Date of Service: 10/03/22 Interval history: passing flatus well no N/V tolerating full lliquids gideon has upper abdl pain but says this is better she states she feels PRilosec has helped Physical Exam Vital Signs: Vital Signs: Last Vital Signs Temp 98 F 10/02/22 07:02 Pulse 72 10/02/22 07:55 Resp 16 10/02/22 07:55 BP 133/61 10/02/22 07:02 Pulse Ox 93 10/02/22 07:02 O2 Del Method Room Air 10/02/22 07:02 O2 Flow Rate 95 09/23/22 16:59 BMI result Body Mass Index 28.3 Const: General: comfortable and no acute distress Resp: Effort & Inspection: normal respiratory effort Cardio: Rate: regular rate GI: Palpation (GI): Soft to palpation, not firm, Tenderness to palpation present (GI) (mild on upper abd) and no guarding Objective Data Active Medications Acetaminophen (Acetaminophen 325 Mg Tablet) 650 mg PO Q6H PRN PRN Reason: Fever Albuterol Sulfate (Albuterol Sulfate 90 Mcg 8 Gm Inhaler) 2 puff INHALE Q6H PRN PRN Reason: for wheezing Last Admin: 10/01/22 21:30 Dose: 2 puff Documented By: FLORENCIA Docusate Sodium (Docusate Sodium 100 Mg Capsule) 100 mg PO BID [facility] Last Admin: 10/01/22 21:31 Dose: 100 mg Documented By: FLORENCIA Enoxaparin Sodium (Enoxaparin Sodium 40 Mg/0.4 Ml Syringe) 40 mg SUBCUT Q24H [facility] Last Admin: 10/01/22 17:23 Dose: 40 mg Documented By: ROBERT Escitalopram Oxalate (Escitalopram Oxalate 10 Mg Tablet) 10 mg PO DAILY [facility] Last Admin: 10/01/22 07:59 Dose: 10 mg Documented By: ROBERT Fluticasone Propionate (Fluticasone Propionate Nasal 16 Gm [place]) 1 spray NOSTRIL-B DAILY PRN PRN Reason: Allergy Symptoms Fluticasone/Vilanterol (Fluticasone/Vilanterol 200/25 Blst.W.Dev) 1 puff INHALE RDAILY [facility] Last Admin: 10/02/22 07:54 Dose: 1 puff Documented By: HO.GUBERE Hydroxyzine HCl (Hydroxyzine Hcl 25 Mg Tablet) 25 mg PO BID PRN PRN Reason: anxiety Last Admin: 09/30/22 23:46 Dose: 25 mg Documented By: FLORENCIA Lactated Ringer's (Lr) 1,000 mls @ 80 mls/hr IVCONT .[id number] [facility] Last Admin: 10/01/22 22:41 Dose: 80 mls/hr Documented By: FLORENCIA Lidocaine (Lidocaine 4 % Patch Adh..Patch) 1 patch TRANSDERMA DAILY PRN PRN Reason: Pain Last Admin: 09/27/22 08:21 Dose: 1 patch Documented By: LEILANI Lorazepam (Lorazepam 0.5 Mg Tablet) 0.5 mg PO BEDTIME PRN PRN Reason: Anxiety Last Admin: 10/01/22 21:31 Dose: 0.5 mg Documented By: FLORENCIA Metoprolol Succinate (Metoprolol Succinate Er 25 Mg Tab.Er.24h) 25 mg PO DAILY [facility]; Protocol Last Admin: 10/01/22 07:59 Dose: 25 mg Documented By: ROBERT Morphine Sulfate (Morphine Sulfate 2 Mg/Ml Cartridge) 2 mg IVPUSH Q4H PRN; Protocol PRN Reason: Pain, Severe (Pain Scale 7-10) Last Admin: 10/02/22 04:19 Dose: 2 mg Documented By: FLORENCIA Omeprazole (Omeprazole 20 Mg Capsule.Dr) 20 mg PO BID@0630,1630 [facility] Last Admin: 10/02/22 04:20 Dose: 20 mg Documented By: FLORENCIA Comments: per pt request Ondansetron HCl (Ondansetron Hcl 4 Mg/2 Ml Vial) 4 mg IVPUSH Q8H PRN PRN Reason: Nausea and Vomiting Last Admin: 09/28/22 23:53 Dose: 4 mg Documented By: JOHANA Pharmacy Consult (Consult Rx Perform Med Rec) 1 each MISCELLANE ONCE PRN PRN Reason: Consult order Sodium Chloride (0.9 % Sodium Chloride Flush 3 Ml Syringe) 3 ml IVFLUSH QSHIFT [facility] Last Admin: 10/02/22 07:54 Dose: Not Given Documented By: ELÍAS Non-Admin Reason: IV Running Labs 09/24/22 05:38 09/30/22 06:53 Procedures Date of Service Date of Service: 10/03/22 Progress Note: A&P Assessment and plan (1) Small bowel obstruction: Status: Acute Assessment and Plan: improving symptoms she says she is ready to try regular diet she states she usually stays in the hospital for many days whenever she has these episodes ambulating abd soft and benign she looks well Time Spent With Patient Time: Total time managing care of this patient today ____ minutes. Quality Stroke Does the patient have a stroke diagnosis?: No VTE Prior VTE?: No VTE Risk Level:: Surgical - moderate VTE Device Contraindication: N/A - Device Ordered VTE Drug Contraindication: N/A - Med Ordered
[2022-10-02] MEDS: Escitalopram Oxalate 10 MG TABLET PO (08:53)
[2022-10-02] MEDS: Metoprolol Succinate ER 25 MG TAB.ER.24H PO (08:53)
[2022-10-02] MEDS: Docusate Sodium 100 MG CAPSULE PO ×2 (08:53→20:17)
[2022-10-02] MEDS: Lactated Ringers 1,000 ML 80 ML IVCONT (15:19)
[2022-10-02 15:28] VITALS: BP 124/58; PULSE 71; RESP 20; TEMP 36.7; O2SAT 95
[2022-10-02] MEDS: Enoxaparin Sodium 40 MG/0.4 ML SYRINGE SUBCUT (16:33)
[2022-10-02] MEDS: Albuterol Sulfate 90 MCG 8 GM INHALER 2 PUFF INHALE (16:33)
[2022-10-02] MEDS: hydrOXYzine HCL 25 MG TABLET PO (20:31)
[2022-10-02] MEDS: LORazepam 0.5 MG TABLET PO (20:31)
[2022-10-02] MEDS: Acetaminophen 325 MG TABLET 650 MG PO (22:27)
[2022-10-02 23:56] VITALS: BP 119/65; PULSE 57; RESP 17; TEMP 36.8; O2SAT 91
[2022-10-03] MEDS: Lactated Ringers 1,000 ML 80 ML IVCONT (02:27)
[2022-10-03] MEDS: Morphine Sulfate 2 MG/ML CARTRIDGE IVPUSH ×5 (03:00→21:31)
[2022-10-03 07:05] VITALS: BP 136/78; PULSE 69; RESP 16; TEMP 36.6; O2SAT 95
[2022-10-03] MEDS: Metoprolol Succinate ER 25 MG TAB.ER.24H PO (07:55)
[2022-10-03] MEDS: Escitalopram Oxalate 10 MG TABLET PO (07:56)
[2022-10-03] MEDS: Docusate Sodium 100 MG CAPSULE PO ×2 (07:56→20:18)
--- NOTE | 2022-10-03 08:49 | PM.PNGS ---
Subjective Subjective Date of Service: 10/10/22 Interval history: Passing flatus No nausea or vomiting Occasional upper abdominal pain Wants to try regular food Physical Exam Vital Signs: Vital Signs: Last Vital Signs Temp 98 F 10/03/22 07:05 Pulse 69 10/03/22 07:05 Resp 16 10/03/22 07:05 BP 136/78 10/03/22 07:05 Pulse Ox 95 10/03/22 07:05 O2 Del Method Room Air 10/03/22 07:05 O2 Flow Rate 95 09/23/22 16:59 BMI result Body Mass Index 28.3 Const: General: comfortable and no acute distress Resp: Effort & Inspection: normal respiratory effort Cardio: Rate: regular rate GI: Palpation (GI): Soft to palpation, not firm and nontender Objective Data Active Medications Acetaminophen (Acetaminophen 325 Mg Tablet) 650 mg PO Q6H PRN PRN Reason: Fever Last Admin: 10/02/22 22:27 Dose: 650 mg Documented By: OLEGARIO Albuterol Sulfate (Albuterol Sulfate 90 Mcg 8 Gm Inhaler) 2 puff INHALE Q6H PRN PRN Reason: for wheezing Last Admin: 10/02/22 16:33 Dose: 2 puff Documented By: ELÍAS Docusate Sodium (Docusate Sodium 100 Mg Capsule) 100 mg PO BID [facility] Last Admin: 10/03/22 07:56 Dose: 100 mg Documented By: VALE Enoxaparin Sodium (Enoxaparin Sodium 40 Mg/0.4 Ml Syringe) 40 mg SUBCUT Q24H [facility] Last Admin: 10/02/22 16:33 Dose: 40 mg Documented By: ELÍAS Escitalopram Oxalate (Escitalopram Oxalate 10 Mg Tablet) 10 mg PO DAILY [facility] Last Admin: 10/03/22 07:56 Dose: 10 mg Documented By: VALE Fluticasone Propionate (Fluticasone Propionate Nasal 16 Gm [place]) 1 spray NOSTRIL-B DAILY PRN PRN Reason: Allergy Symptoms Fluticasone/Vilanterol (Fluticasone/Vilanterol 200/25 Blst.W.Dev) 1 puff INHALE RDAILY [facility] Last Admin: 10/03/22 08:33 Dose: Not Given Documented By: TATYANA Non-Admin Reason: Patient Refused Hydroxyzine HCl (Hydroxyzine Hcl 25 Mg Tablet) 25 mg PO BID PRN PRN Reason: anxiety Last Admin: 10/02/22 20:31 Dose: 25 mg Documented By: BLANK Lactated Ringer's (Lr) 1,000 mls @ 80 mls/hr IVCONT .[id number] [facility] Last Admin: 10/03/22 02:27 Dose: 80 mls/hr Documented By: BLANK Lidocaine (Lidocaine 4 % Patch Adh..Patch) 1 patch TRANSDERMA DAILY PRN PRN Reason: Pain Last Admin: 09/27/22 08:21 Dose: 1 patch Documented By: LEILANI Lorazepam (Lorazepam 0.5 Mg Tablet) 0.5 mg PO BEDTIME PRN PRN Reason: Anxiety Last Admin: 10/02/22 20:31 Dose: 0.5 mg Documented By: BLANK Metoprolol Succinate (Metoprolol Succinate Er 25 Mg Tab.Er.24h) 25 mg PO DAILY [facility]; Protocol Last Admin: 10/03/22 07:55 Dose: 25 mg Documented By: VALE Morphine Sulfate (Morphine Sulfate 2 Mg/Ml Cartridge) 2 mg IVPUSH Q4H PRN; Protocol PRN Reason: Pain, Severe (Pain Scale 7-10) Last Admin: 10/03/22 07:56 Dose: 2 mg Documented By: VALE Omeprazole (Omeprazole 20 Mg Capsule.Dr) 20 mg PO BID@0630,1630 [facility] Last Admin: 10/03/22 06:28 Dose: Not Given Documented By: BLANK Non-Admin Reason: Patient Asleep Ondansetron HCl (Ondansetron Hcl 4 Mg/2 Ml Vial) 4 mg IVPUSH Q8H PRN PRN Reason: Nausea and Vomiting Last Admin: 09/28/22 23:53 Dose: 4 mg Documented By: JOHANA Pharmacy Consult (Consult Rx Perform Med Rec) 1 each MISCELLANE ONCE PRN PRN Reason: Consult order Sodium Chloride (0.9 % Sodium Chloride Flush 3 Ml Syringe) 3 ml IVFLUSH QSHIFT [facility] Last Admin: 10/03/22 07:55 Dose: Not Given Documented By: VALE Non-Admin Reason: IV Running Labs 09/24/22 05:38 09/30/22 06:53 Procedures Date of Service Date of Service: 10/10/22 Progress Note: A&P Assessment and plan (1) Small bowel obstruction: Status: Acute Assessment and Plan: Passing flatus well Abdomen soft and benign Clinically not obstructed I have advanced her diet Continue proton pump inhibitor She has had chronic GI issues She states she usually stays for several days the hospital whenever she has this episode Time Spent With Patient Time: Total time managing care of this patient today ____ minutes. Quality Stroke Does the patient have a stroke diagnosis?: No VTE Prior VTE?: No VTE Risk Level:: Surgical - moderate VTE Device Contraindication: N/A - Device Ordered VTE Drug Contraindication: N/A - Med Ordered
--- NOTE | 2022-10-03 09:10 | MHC.CLN ---
F/U DIET ADVANCED TO REGULAR ON 10/02. APPEARS TO BE TOLERATING. ADDING ENSURE TID TO PROMOTE NUTRITIONAL INTAKE. PROVIDES 1050 KCALS, 60 G PROTEIN. MONITOR FOR DIET TOLERANCE AND INTAKE.
[2022-10-03] MEDS: Acetaminophen 325 MG TABLET 650 MG PO (13:11)
[2022-10-03] MEDS: 0.9 % Sodium Chloride Flush 3 ML SYRINGE IVFLUSH ×2 (15:00→20:19)
[2022-10-03 15:46] VITALS: BP 135/79; PULSE 62; RESP 14; TEMP 36.6; O2SAT 94
--- NOTE | 2022-10-03 16:46 | MHC.CM.PN ---
Patient not medically cleared for discharge. DP Home with resumption of [employer] services. Patient will arrange for a friend to provide transport home at discharge.
[2022-10-03] MEDS: Enoxaparin Sodium 40 MG/0.4 ML SYRINGE SUBCUT (17:08)
[2022-10-03] MEDS: Omeprazole 20 MG CAPSULE.DR PO (17:08)
[2022-10-03] MEDS: Albuterol Sulfate 90 MCG 8 GM INHALER 2 PUFF INHALE (20:22)
[2022-10-03] MEDS: LORazepam 0.5 MG TABLET PO (21:32)
[2022-10-03 23:33] VITALS: BP 127/67; PULSE 84; RESP 17; TEMP 36.8; O2SAT 95
[2022-10-04] MEDS: Morphine Sulfate 2 MG/ML CARTRIDGE IVPUSH ×4 (03:53→19:59)
[2022-10-04] MEDS: Omeprazole 20 MG CAPSULE.DR PO ×2 (05:33→15:27)
[2022-10-04 07:23] VITALS: BP 141/67; PULSE 72; RESP 18; TEMP 36.8; O2SAT 94
--- NOTE | 2022-10-04 08:05 | P.PNGS_ITS ---
Subjective Subjective Date of Service: 10/04/22 Interval history: feels ok occaional upper abdl pain, better passing good flatus says she is constipated tolerating regular diet Physical Exam Vital Signs: Vital Signs: Last Vital Signs Temp 98.2 F 10/04/22 07:23 Pulse 72 10/04/22 07:23 Resp 18 10/04/22 07:23 BP 141/67 H 10/04/22 07:23 Pulse Ox 94 10/04/22 07:23 O2 Del Method Room Air 10/04/22 07:23 O2 Flow Rate 95 09/23/22 16:59 BMI result Body Mass Index 28.3 Const: General: comfortable and no acute distress Resp: Effort & Inspection: normal respiratory effort Cardio: Rate: regular rate GI: Palpation (GI): Soft to palpation, not firm, Tenderness to palpation present (GI) (mild upper abdl tenderness) and no guarding Objective Data Active Medications Acetaminophen (Acetaminophen 325 Mg Tablet) 650 mg PO Q6H PRN PRN Reason: Fever Last Admin: 10/03/22 13:11 Dose: 650 mg Documented By: VALE Albuterol Sulfate (Albuterol Sulfate 90 Mcg 8 Gm Inhaler) 2 puff INHALE Q6H PRN PRN Reason: for wheezing Last Admin: 10/03/22 20:22 Dose: 2 puff Documented By: DWIGHT Docusate Sodium (Docusate Sodium 100 Mg Capsule) 100 mg PO BID [facility] Last Admin: 10/03/22 20:18 Dose: 100 mg Documented By: DWIGHT Enoxaparin Sodium (Enoxaparin Sodium 40 Mg/0.4 Ml Syringe) 40 mg SUBCUT Q24H [facility] Last Admin: 10/03/22 17:08 Dose: 40 mg Documented By: VALE Escitalopram Oxalate (Escitalopram Oxalate 10 Mg Tablet) 10 mg PO DAILY [facility] Last Admin: 10/03/22 07:56 Dose: 10 mg Documented By: VALE Fluticasone Propionate (Fluticasone Propionate Nasal 16 Gm [place]) 1 spray NOSTRIL-B DAILY PRN PRN Reason: Allergy Symptoms Fluticasone/Vilanterol (Fluticasone/Vilanterol 200/25 Blst.W.Dev) 1 puff INHALE RDAILY [facility] Last Admin: 10/03/22 08:33 Dose: Not Given Documented By: TATYANA Non-Admin Reason: Patient Refused Hydroxyzine HCl (Hydroxyzine Hcl 25 Mg Tablet) 25 mg PO BID PRN PRN Reason: anxiety Last Admin: 10/02/22 20:31 Dose: 25 mg Documented By: NASREEN-JOZEB Lidocaine (Lidocaine 4 % Patch Adh..Patch) 1 patch TRANSDERMA DAILY PRN PRN Reason: Pain Last Admin: 09/27/22 08:21 Dose: 1 patch Documented By: LEILANI Lorazepam (Lorazepam 0.5 Mg Tablet) 0.5 mg PO BEDTIME PRN PRN Reason: Anxiety Last Admin: 10/03/22 21:32 Dose: 0.5 mg Documented By: DWIGHT Metoprolol Succinate (Metoprolol Succinate Er 25 Mg Tab.Er.24h) 25 mg PO DAILY [facility]; Protocol Last Admin: 10/03/22 07:55 Dose: 25 mg Documented By: VALE Morphine Sulfate (Morphine Sulfate 2 Mg/Ml Cartridge) 2 mg IVPUSH Q4H PRN; Protocol PRN Reason: Pain, Severe (Pain Scale 7-10) Last Admin: 10/04/22 03:53 Dose: 2 mg Documented By: DWIGHT Omeprazole (Omeprazole 20 Mg Capsule.) 20 mg PO BID@0630,1630 [facility] Last Admin: 10/04/22 05:33 Dose: 20 mg Documented By: DWIGHT Ondansetron HCl (Ondansetron Hcl 4 Mg/2 Ml Vial) 4 mg IVPUSH Q8H PRN PRN Reason: Nausea and Vomiting Last Admin: 09/28/22 23:53 Dose: 4 mg Documented By: JOHANA Pharmacy Consult (Consult Rx Perform Med Rec) 1 each MISCELLANE ONCE PRN PRN Reason: Consult order Sodium Chloride (0.9 % Sodium Chloride Flush 3 Ml Syringe) 3 ml IVFLUSH [facility] Last Admin: 10/03/22 20:19 Dose: 3 ml Documented By: DWIGHT Labs 09/24/22 05:38 09/30/22 06:53 Procedures Date of Service Date of Service: 10/04/22 Progress Note: A&P Assessment and plan (1) Small bowel obstruction: Status: Acute Assessment and Plan: much improved has good flatus I have reviewed images with Dr. Noguera - mild SB dilatation, good air distally, no inflammatory changes pt feels constipated will add Miralal exam remains benign she looks well, has been ambulating Time Spent With Patient Time: Total time managing care of this patient today ____ minutes. Quality Stroke Does the patient have a stroke diagnosis?: No VTE Prior VTE?: No VTE Risk Level:: Surgical - moderate VTE Device Contraindication: N/A - Device Ordered VTE Drug Contraindication: N/A - Med Ordered
[2022-10-04] MEDS: Fluticasone/Vilanterol 200/25 BLST.W.DEV 1 PUFF INHALE (08:30)
[2022-10-04 08:32] VITALS: PULSE 68; RESP 16; O2SAT 95
[2022-10-04] MEDS: 0.9 % Sodium Chloride Flush 3 ML SYRINGE IVFLUSH ×3 (09:32→19:59)
[2022-10-04] MEDS: Docusate Sodium 100 MG CAPSULE PO ×2 (09:32→19:58)
[2022-10-04] MEDS: polyethylene glycoL 3350 17 GM POWD.PACK PO (09:32)
[2022-10-04] MEDS: Metoprolol Succinate ER 25 MG TAB.ER.24H PO (09:32)
[2022-10-04] MEDS: Escitalopram Oxalate 10 MG TABLET PO (09:32)
[2022-10-04 15:23] VITALS: BP 131/70; PULSE 72; RESP 18; TEMP 36.4; O2SAT 96
[2022-10-04] MEDS: Enoxaparin Sodium 40 MG/0.4 ML SYRINGE SUBCUT (19:16)
[2022-10-04 23:22] VITALS: BP 134/73; PULSE 75; RESP 18; TEMP 36.3; O2SAT 95
[2022-10-05] MEDS: Albuterol Sulfate 90 MCG 8 GM INHALER 2 PUFF INHALE (00:22)
[2022-10-05] MEDS: LORazepam 0.5 MG TABLET PO (00:22)
[2022-10-05] MEDS: Morphine Sulfate 2 MG/ML CARTRIDGE IVPUSH ×2 (00:25→08:00)
[2022-10-05] MEDS: Omeprazole 20 MG CAPSULE.DR PO (06:15)
[2022-10-05 07:29] VITALS: BP 138/90; PULSE 63; RESP 18; TEMP 36.1; O2SAT 94
[2022-10-05] MEDS: Fluticasone/Vilanterol 200/25 BLST.W.DEV 1 PUFF INHALE (07:49)
[2022-10-05 07:51] VITALS: PULSE 74; RESP 16; O2SAT 96
[2022-10-05] MEDS: Metoprolol Succinate ER 25 MG TAB.ER.24H PO (07:54)
[2022-10-05] MEDS: 0.9 % Sodium Chloride Flush 3 ML SYRINGE IVFLUSH (07:54)
[2022-10-05] MEDS: Docusate Sodium 100 MG CAPSULE PO (07:54)
[2022-10-05] MEDS: Escitalopram Oxalate 10 MG TABLET PO (07:54)
[2022-10-05] MEDS: polyethylene glycoL 3350 17 GM POWD.PACK PO (08:00)
--- NOTE | 2022-10-05 09:33 | PM.PNGS ---
Subjective Subjective Date of Service: 10/10/22 Interval history: feels well had BMs, flatus occasional upper abdl pain Physical Exam Vital Signs: Vital Signs: Last Vital Signs Temp 97.0 F 10/05/22 07:29 Pulse 74 10/05/22 07:51 Resp 16 10/05/22 07:51 BP 138/90 H 10/05/22 07:29 Pulse Ox 94 10/05/22 07:29 O2 Del Method Room Air 10/05/22 07:29 O2 Flow Rate 95 09/23/22 16:59 BMI result Body Mass Index 28.3 Const: General: comfortable and no acute distress Resp: Effort & Inspection: normal respiratory effort Cardio: Rate: regular rate GI: Palpation (GI): Soft to palpation, not firm and nontender Objective Data Active Medications Acetaminophen (Acetaminophen 325 Mg Tablet) 650 mg PO Q6H PRN PRN Reason: Fever Last Admin: 10/03/22 13:11 Dose: 650 mg Documented By: VALE Albuterol Sulfate (Albuterol Sulfate 90 Mcg 8 Gm Inhaler) 2 puff INHALE Q6H PRN PRN Reason: for wheezing Last Admin: 10/05/22 00:22 Dose: 2 puff Documented By: ODRISYael Docusate Sodium (Docusate Sodium 100 Mg Capsule) 100 mg PO BID [facility] Last Admin: 10/05/22 07:54 Dose: 100 mg Documented By: JERARDO Enoxaparin Sodium (Enoxaparin Sodium 40 Mg/0.4 Ml Syringe) 40 mg SUBCUT Q24H [facility] Last Admin: 10/04/22 19:16 Dose: 40 mg Documented By: VALE Escitalopram Oxalate (Escitalopram Oxalate 10 Mg Tablet) 10 mg PO DAILY [facility] Last Admin: 10/05/22 07:54 Dose: 10 mg Documented By: JERARDO Fluticasone Propionate (Fluticasone Propionate Nasal 16 Gm [place]) 1 spray NOSTRIL-B DAILY PRN PRN Reason: Allergy Symptoms Fluticasone/Vilanterol (Fluticasone/Vilanterol 200/25 Blst.W.Dev) 1 puff INHALE RDAILY [facility] Last Admin: 10/05/22 07:49 Dose: 1 puff Documented By: CHRIS Hydroxyzine HCl (Hydroxyzine Hcl 25 Mg Tablet) 25 mg PO BID PRN PRN Reason: anxiety Last Admin: 10/02/22 20:31 Dose: 25 mg Documented By: BLANK Lidocaine (Lidocaine 4 % Patch Adh..Patch) 1 patch TRANSDERMA DAILY PRN PRN Reason: Pain Last Admin: 09/27/22 08:21 Dose: 1 patch Documented By: LEILANI Lorazepam (Lorazepam 0.5 Mg Tablet) 0.5 mg PO BEDTIME PRN PRN Reason: Anxiety Last Admin: 10/05/22 00:22 Dose: 0.5 mg Documented By: DWIGHT Metoprolol Succinate (Metoprolol Succinate Er 25 Mg Tab.Er.24h) 25 mg PO DAILY [facility]; Protocol Last Admin: 10/05/22 07:54 Dose: 25 mg Documented By: JERARDO Morphine Sulfate (Morphine Sulfate 2 Mg/Ml Cartridge) 2 mg IVPUSH Q4H PRN; Protocol PRN Reason: Pain, Severe (Pain Scale 7-10) Last Admin: 10/05/22 08:00 Dose: 2 mg Documented By: JERARDO Omeprazole (Omeprazole 20 Mg Capsule.Dr) 20 mg PO BID@0630,1630 [facility] Last Admin: 10/05/22 06:15 Dose: 20 mg Documented By: DWIGHT Ondansetron HCl (Ondansetron Hcl 4 Mg/2 Ml Vial) 4 mg IVPUSH Q8H PRN PRN Reason: Nausea and Vomiting Last Admin: 09/28/22 23:53 Dose: 4 mg Documented By: JOHANA Pharmacy Consult (Consult Rx Perform Med Rec) 1 each MISCELLANE ONCE PRN PRN Reason: Consult order Polyethylene Glycol (Polyethylene Glycol 3350 17 Gm Powd.Pack) 17 gm PO DAILY PRN PRN Reason: Constipation Last Admin: 10/05/22 08:00 Dose: 17 gm Documented By: JERARDO Sodium Chloride (0.9 % Sodium Chloride Flush 3 Ml Syringe) [facility] Last Admin: 10/05/22 07:54 Dose: 3 ml Documented By: JERARDO Labs 09/24/22 05:38 09/30/22 06:53 Procedures Date of Service Date of Service: 10/10/22 Progress Note: A&P Assessment and plan (1) Small bowel obstruction: Status: Acute Assessment and Plan: continues to feel well tolerating diet has had no nausea or vomiting has BMs and flatus she now states she may be ready to go home today will re-evaluate later for discharge Time Spent With Patient Time: Total time managing care of this patient today ____ minutes. Quality Stroke Does the patient have a stroke diagnosis?: No VTE Prior VTE?: No VTE Risk Level:: Surgical - moderate VTE Device Contraindication: N/A - Device Ordered VTE Drug Contraindication: N/A - Med Ordered
--- NOTE | 2022-10-05 12:57 | MHC.CM.PN ---
PT WILL DC HOME TODAY WITH NO SERVICES. FRIEND TO TRANSPORT
--- NOTE | 2022-10-10 10:29 | PM.DS ---
DS: Providers Provider Date of Service: 10/05/22 Date of admission: 09/23/22 16:37 Primary care physician: Anaya Noguera DNP DS: Diagnosis Discharge Diagnosis (1) Small bowel obstruction: Status: Acute DS: Summary Hospital Course Hospital Course: 72-year-old female admitted by Dr. Rainey on 09/23/2022 because of abdominal pain and vomiting. Her CAT scan showed dilated small bowel loops with a possible transition point in the pelvis consistent with partial small-bowel obstruction. She has had multiple admissions in the past for this and has always undergone conservative treatment with NG tube and bowel rest. She had a remote history of colon resection for cancer and cholecystectomy and appendectomy She had an NG tube placed and was kept NPO with IV fluids. She actually was passing flatus but continued to have some pain although improving. Her NG tube was removed on her hospital day. She was solely started on clear liquids. She did had episodic pain so I had repeated her CT scan which showed a question of inflammatory changes in the right lower quadrant. She underwent a repeat CT scan with oral contrast to further define this but this was not seen. Review of her repeat CT scan showed some persistent small-bowel dilatation although this appeared to be patent throughout. She had good passage of flatus. She also had a problem with constipation so I had started on MiraLax and Colace. She had good response to this regimen I was eventually able to start her on regular food on her 10th hospital day. She had tolerated this. She had good bowel movements and was passing flatus and did not have any vomiting or nausea. I had also started her on a proton pump inhibitor because of her frequent epigastric pain and she says that she had improved with this On the day of her discharge on 10/05/2022, she was tolerating regular diet, had good bowel movements and was passing flatus. Her abdomen remained soft and benign. Time Spent with Patient Time attestation: Total time managing care of this patient today ____ minutes. Discharge coordination time: Less than 30 minutes Quality: Safe Use of Opioids Does Pt have an Active Cancer Diagnosis on the Problem List?: No Quality: Stroke Does the patient have a stroke diagnosis?: No Physical Exam Vital Signs: Vital Signs: Last Vital Signs Temp 97.0 F 10/05/22 07:29 Pulse 74 10/05/22 07:51 Resp 16 10/05/22 07:51 BP 138/90 H 10/05/22 07:29 Pulse Ox 94 10/05/22 07:29 O2 Del Method Room Air 10/05/22 07:29 O2 Flow Rate 95 09/23/22 16:59 BMI result Body Mass Index 28.3 Const: General: comfortable and no acute distress Orientation/consciousness: patient oriented x3 Neck: Neck: Yes no lymphadenopathy Resp: Auscultation: clear to auscultation bilaterally Cardio: Rhythm: regular rhythm GI: Palpation (GI): Soft to palpation, nontender and no guarding Neuro: General: patient oriented x3 DS: Data Data Completed and Pending Completed studies during hospitalization [Text1]: Laboratory Results WBC 6.3 X10*3/uL (4.8-10.8) 09/24/22 05:38 RBC 3.13 X10*6/uL (4.20-5.50) L 09/24/22 05:38 Hgb 10.2 g/dl (12.0-16.0) L 09/24/22 05:38 Hct 31.0 % (37.0-47.0) L 09/24/22 05:38 MCV 99.0 fL (80.0-98.0) H 09/24/22 05:38 MCH 32.6 pg (27.0-33.0) 09/24/22 05:38 MCHC 32.9 g/dl (31.0-35.0) 09/24/22 05:38 RDW 13.2 % (11.0-16.0) 09/24/22 05:38 Plt Count 230 X10*3/uL (160-400) 09/24/22 05:38 MPV 9.3 fL (9.4-12.3) L 09/24/22 05:38 Immature Gran % (Auto) 0.3 % (0.0-0.4) 09/24/22 05:38 Neut % (Auto) 68.3 % (45-73) 09/24/22 05:38 Lymph % (Auto) 19.9 % (20-40) L 09/24/22 05:38 [place] % (Auto) 11.0 % (2-11) 09/24/22 05:38 Eos % (Auto) 0.0 % (0-4) 09/24/22 05:38 Baso % (Auto) 0.5 % (0-2) 09/24/22 05:38 Lymph # (Auto) 1.3 X10*3/uL (1.2-4.9) 09/24/22 05:38 [place] # (Auto) 0.7 X10*3/uL (0.1-1.2) 09/24/22 05:38 Eos # (Auto) 0.0 X10*3/uL (0.0-0.4) 09/24/22 05:38 Baso # (Auto) 0.0 X10*3/uL (0.0-0.2) 09/24/22 05:38 Abs Immat Gran (auto) 0.02 X10*3/uL (0.00-0.03) 09/24/22 05:38 Absolute Neuts (auto) 4.3 x10*3/uL (2.0-8.3) 09/24/22 05:38 Absolute Nucleated RBC 0.000 X10*3/uL (0.0-0.012) 09/24/22 05:38 Nucleated RBC % (auto) 0.0 /100WBC (0.0-0.2) 09/24/22 05:38 PT 10.9 SEC (10.0-13.1) 09/23/22 13:08 INR 1.0 (0.9-1.1) 09/23/22 13:08 Sodium 138 mmol/L (135-145) 09/30/22 06:53 Potassium 3.4 mmol/L (3.3-5.1) D 09/30/22 06:53 Chloride 104 mmol/L (96-108) 09/30/22 06:53 Carbon Dioxide 26 mmol/L (22-29) 09/30/22 06:53 Anion Gap 11 (12-20) L 09/30/22 06:53 BUN 5 mg/dL (9-16) L 09/30/22 06:53 Creatinine 0.61 mg/dL (0.5-1.4) 09/30/22 06:53 Estim Creat Clear Calc 71.3 09/30/22 06:53 Estimated GFR > 60 09/30/22 06:53 Random Glucose 71 mg/dL (60-115) 09/30/22 06:53 Calcium 8.1 mg/dL (8.4-10.2) L 09/30/22 06:53 Magnesium 2.1 mg/dL (1.6-2.6) 09/23/22 13:08 Total Bilirubin 0.5 mg/dL (0.0-1.0) 09/23/22 13:08 Direct Bilirubin 0.2 mg/dL (0.0-0.5) 09/23/22 13:08 AST 58 U/L (5-31) H 09/23/22 13:08 ALT 60 U/L (0-31) H 09/23/22 13:08 Alkaline Phosphatase 131 U/L (39-117) H 09/23/22 13:08 Total Protein 8.1 g/dL (6.5-8.0) H 09/23/22 13:08 Albumin 3.6 g/dL (3.5-5.0) 09/23/22 13:08 Lipase 15 U/L (8-78) 09/23/22 13:08 Urine Color Yellow 09/23/22 20:57 Urine Appearance Clear 09/23/22 20:57 Urine pH 5.0 (5.0-9.0) 09/23/22 20:57 Ur Specific [place] >= 1.030 (1.005-1.025) H 09/23/22 20:57 Urine Protein Trace mg/dL (Neg-Trace) 09/23/22 20:57 Urine Glucose (UA) Negative mg/dL (Negative) 09/23/22 20:57 Urine Ketones Trace mg/dL (Negative) 09/23/22 20:57 Urine Blood Small (1+) (Negative) H 09/23/22 20:57 Urine Nitrite Negative (Negative) 09/23/22 20:57 Ur Leukocyte Esterase Negative (Negative) 09/23/22 20:57 Urine RBC >20 /HPF (0-2) H 09/23/22 20:57 Urine WBC 0-5 /HPF (0-5) 09/23/22 20:57 Ur Squamous Epith Cells 0-2 /HPF (0-2) 09/23/22 20:57 Urine Bacteria None Seen (None Seen) 09/23/22 20:57 Hyaline Casts 0-2 /LPF (0-2) 09/23/22 20:57 Impressions Chest X-Ray 09/23/22 12:45 IMPRESSION: Chronic interstitial changes correlating with previous studies without overt acute cardiopulmonary process. Abdomen/Pelvis CT 09/29/22 11:05 IMPRESSION: Distal partial small bowel obstruction in the pelvis. There is oral contrast in the more distal small bowel and large bowel and there is no evidence for complete obstruction. Small bowel dilatation is slightly increased compared to most recent exam 09/27/2022 Small amount of ascites slightly increased from 09/27/2022 exam. Mild common bile duct dilatation similar to previous exams. This may be normal postcholecystectomy. Correlation with liver function tests recommended. Fleischner guidelines were followed. Discharge Plan Discharge Anticipated Discharge Date/Time: 10/05/22 09:36 Patient Disposition: Home, Self-Care Discharge Diagnosis: small bowel obstruction Referrals: Anaya Noguera DNP [Primary Care Provider] - 1 Week Discharge Medications: New docusate sodium [Colace] 100 mg capsule 100 mg PO BID Qty: 60 2RF Continued metoprolol succinate 25 mg tablet extended release 24 hr 25 mg PO DAILY Qty: 90 3RF fluticasone propionate 50 mcg/actuation spray,suspension 1 spray intranasal DAILY PRN (Reason: Allergy Symptoms) multivitamin Tablet 1 tab PO DAILY guaifenesin [Mucinex] 600 mg Tablet Extended Release 12hr 600 mg PO Q12H PRN (Reason: Congestion) lorazepam 0.5 mg tablet 0.5 mg PO BEDTIME PRN (Reason: Anxiety) ipratropium-albuterol 0.5 mg-3 mg(2.5 mg base)/3 mL solution for nebulization 3 ml inhalation Q6H MDD BRONCHIECTASIS/BRONCHITIS PRN (Reason: BRONCHIECTASIS/BRONCHITIS) pantoprazole 40 mg tablet,delayed release (DR/EC) 40 mg PO BID lidocaine [Lidoderm] 5 % adhesive patch,medicated 1 patch topical DAILY PRN (Reason: Pain) Rx Instructions: leave on most painful area for up to 12 hours docusate sodium 100 mg capsule 100 mg PO DAILY PRN (Reason: Constipation) albuterol sulfate [Ventolin HFA] 90 mcg/actuation HFA aerosol inhaler 2 puff inhalation Q6H PRN (Reason: for wheezing) cholecalciferol (vitamin D3) 125 mcg (5,000 unit) capsule 125 mcg PO DAILY hydroxyzine HCl 25 mg tablet 25 mg PO BID PRN (Reason: anxiety) escitalopram oxalate 10 mg tablet 10 mg PO DAILY fluticasone furoate-vilanterol [Breo Ellipta] 200-25 mcg/dose blister with device 1 ea inhalation DAILY sucralfate 1 gram tablet 2 g PO BID Qty: 120 6RF Discharge Orders: Discharge Order (Routine); Ordered 10/05/22 Ordered By: Antonio Jean-Baptiste Diet: Advance to usual diet Activity on Discharge: As tolerated Stand Alone Forms: Patient Portal Discharge page Activity Restrictions/Additional Instructions: if with severe abdominal pain and vomitting, should return to ED Care Plan Goals: return to normal level of activities Health Concerns: recurrent small bowel obstruction Plan of Treatment: continue stool softeners for constipation ffup with PCP Assessment: much improved Discharge Date/Time: 10/05/22 14:56
== END 2022-10-05 14:56 | disposition home or self-care (01) | DRG 390 ==
LOC: HO.ED 15:32 → HO.EDOVER 16:45 → HO.S3 09-24 12:45
PROVIDERS: Physician Assistant Medical; Surgery; Admitting Provider Surgery; Emergency Provider Student in an Organized Health Care Education/Training Program; PCP Registered Nurse; Visit Provider Surgery
DX: K91.31 Postprocedural partial intestinal obstruction (principal); Z85.038 Personal history of other malignant neoplasm of large intestine; Z85.118 Personal history of other malignant neoplasm of bronchus and lung; Z92.3 Personal history of irradiation; Z79.899 Other long term (current) drug therapy
CPT/HCPCS: 36415; 71046; 74176; 74177; 80048; 80053; 81001; 82248; 83690; 83735; 85025; 85027; 85610; 93005; 94664; 99285; J1170; J1650; J2060; J2270; J2405; Q9967

== ENCOUNTER → 2022-09-23 12:20 | Outpatient (BNV) | payer MEDICARE, MEDICAID, SELFPAY | PROVIDERS: Admitting Provider Surgery; Emergency Provider Student in an Organized Health Care Education/Training Program; PCP Registered Nurse; Visit Provider Internal Medicine Cardiovascular Disease | DX: I49.3 Ventricular premature depolarization (principal); R94.31 Abnormal electrocardiogram [ECG] [EKG] | CPT/HCPCS: 93010 ==

== ENCOUNTER → 2022-09-23 16:37 | Outpatient (BNV) | payer MEDICARE, MEDICAID, SELFPAY | PROVIDERS: Admitting Provider Surgery; Emergency Provider Student in an Organized Health Care Education/Training Program; PCP Registered Nurse; Visit Provider Surgery | DX: K56.609 Unspecified intestinal obstruction, unspecified as to partial versus complete obstruction (principal) | CPT/HCPCS: 99222; 99231; 99232; 99238; 99499 ==

== ENCOUNTER 2022-10-24 14:34 | Outpatient (AMB) | payer MEDICARE, MEDICAID, SELFPAY ==
--- NOTE | 2022-10-24 14:35 | MHC.OFFVIS ---
Intake Vital Signs 10/24/22 14:36 Height 5 ft 2 in Weight 153 lb 0.013 oz BMI 28.0 BP 116/78 Blood Pressure Location Rt brachial Position Sitting Pulse 96 Pulse Source Pulse Oximeter Temp 97.7 F Temp Source Skin Pulse Oximetry (%) 96 Oxygen Delivery Method Room Air Intake Visit Reasons: SVETLANA +ve Intake Note: Here for +SVETLANA. c/o right shoulder pain, limited ROM Seen by [facility] 2 months ago Contact Center Manager Required: No Accompanied by: Self / Same As Patient Allergies ciprofloxacin [From Cipro] Adverse Reaction (Intermediate, Verified 10/24/22 14:36) Facial redness, lip swelling HPI HPI Comments History of Present Illness Details Patient returns for follow-up. She mentions that she was admitted to the hospital due to small bowel obstruction, related to her multiple surgeries. She continues to have diffuse pain especially in her right shoulder. She states that she was recently evaluated by Orthopedics and a right shoulder MRI was ordered. She also is having pain in both thumbs. Initial history: This is a 72-year-old female with complex past medical history presents as a new patient. She was referred for positive SVETLANA and positive rheumatoid factor. Patient has a history of hemochromatosis, COPD, [place] D, there was some suspicion of autoimmune hepatitis. Patient states that she has history of colon cancer and vaginal cancer and had radiation many years ago. States that she gets intermittent vaginal spotting, states that her the spotting has become a little bit worse recently and she feels a little dizzy today. Patient states that she has had diffuse pain for many years, affecting multiple areas including her hands, arms, hips, knees, back, feet. She has generalized morning stiffness that lasts 15-30 minutes. 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 She was told she has bilateral rotator cuff tendinopathy and surgery was suggested but that orthopedic surgeon had left the practice, she was evaluated by another orthopedic surgeon 5 years ago and was told that she was not a good surgical candidate due to her age. States that she has 2 sisters with rheumatoid arthritis FORMERLY [facility], [facility]1983 Medical History Asthma Bronchiectasis Bronchitis Bronchitis Colon cancer COPD (chronic obstructive pulmonary disease) Cough Dysuria Hemochromatosis Hyperglycemia Interstitial lung disease Palpitation Post covid-19 condition, unspecified Rectal bleeding Recurrent intestinal obstruction SBO (small bowel obstruction) Seasonal allergies Shoulder pain, bilateral Sinusitis Sinusitis Tubular adenoma Vaginal cancer Vertigo Surgical History H/O colectomy H/O colonoscopy History of cholecystectomy History of esophagogastroduodenoscopy (EGD) Family History Father Dementia GSW (gunshot wound) CAD (coronary artery disease) Mother GSW (gunshot wound) Family/Other Diabetes mellitus Brother CAD (coronary artery disease) Sister Multiple sclerosis Sister Rheumatoid arthritis Sister Rheumatoid arthritis Social History Household Members: None and Other Household Members Other:: aunt a 96 years old Housing: House Do you presently have visiting nurse or other home services: No Alcohol intake: never Patient Tobacco Use Status: Never used Tobacco e-Cigarette/Vaping Use: Never Used Second Hand Smoke Exposure: No Advance Directives Date on File: 04/09/22 service: No Current occupational status: unemployed Sexual orientation: Straight/Heterosexual Gender identity: Female Review of Systems Const Reports fatigue Musc Reports back pain, Reports arthralgias, Reports joint swelling, Reports limited range of motion, Reports numbness, Reports radiating pain into limb and Reports stiffness Skin/Breast Reports alopecia Neuro Reports numbness Endo Reports fatigue Physical Exam Vital Signs: Last Vital Signs Temp 97.7 F 10/24/22 14:36 Pulse 96 10/24/22 14:36 BP 116/78 10/24/22 14:36 Pulse Ox 96 10/24/22 14:36 Oxygen Delivery Method Room Air 10/24/22 14:36 BMI result Body Mass Index 28.0 Const General: cooperative, healthy appearing and comfortable Nutritional Appearance: overweight Orientation/consciousness: patient oriented x3 Limitations: no limitations HEENT Head: Yes normocephalic and Yes atraumatic Mouth: moist mucous membranes Resp Effort & Inspection: normal respiratory effort and able to speak in complete sentences Auscultation: crackles bilateral at the base Neuro General: patient oriented x3 Extrem Other: Bilateral osteoarthritic changes of both hands with prominent Heberden's, Lizeth's nodes and squaring of 1st CMC joint Bilateral 1st CMC joint tenderness Significantly limited abduction of both shoulders Assessment & Plan Assessment & Plan (1) SVETLANA positive: Code(s): R76.8 - Other specified abnormal immunological findings in serum Plan: This is a 72-year-old female with complex past medical history including heterozygosity for H63D mutation for hemochromatosis, bronchiectasis/COPD/ILD presents a for follow-up. There was some suspicion for autoimmune hepatitis as well. Labs showed high titer positive SVETLANA and positive rheumatoid factor. I had ordered comprehensive serology to screen for underlying autoimmune rheumatic disease last visit but patient was unable to complete the lab. Advised patient to get labs done before next visit. (2) Rotator cuff arthropathy of both shoulders: Code(s): M12.811 - Other specific arthropathies, not elsewhere classified, right shoulder; M12.812 - Other specific arthropathies, not elsewhere classified, left shoulder Plan: Follow-up with orthopedics (3) Osteoarthritis of hands, bilateral: Code(s): M19.041 - Primary osteoarthritis, right hand; M19.042 - Primary osteoarthritis, left hand Qualifiers: Osteoarthritis type: primary Qualified Code(s): M19.041 - Primary osteoarthritis, right hand; M19.042 - Primary osteoarthritis, left hand Plan: Voltaren gel trial Plan I spent 25 minutes reviewing patient's chart, evaluating patient, placing orders, counseling patient and documenting in the chart Medications: New lidocaine 5% (Lidoderm) leave on most painful area for up to 12 hours 1 patch topical DAILY PRN 30 ea 2RF Pain Jackson Perea MD Discontinued lidocaine 5% (Lidoderm) leave on most painful area for up to 12 hrs topical 30 ea 2RF M51.36 - Other intervertebral disc degeneration, lumbar region Wiliam Wendi ipratropium-albuterol 0.5 mg-3 mg(2.5 mg base)/3 mL 3 mL inhalation Q4-6H PRN 180 mL 1RF BRONCHIECTASIS/BRONCHITIS 30 days MDD BRONCHIECTASIS/BRONCHITIS NS J44.9 - Chronic obstructive pulmonary disease, unspecified Wiliam Wendi Ventolin HFA 90 mcg/actuation (albuterol sulfate) 2 puffs inhalation Q4-6H PRN 18 grams 2RF for wheezing NS Wiliam Wendi pantoprazole 40 mg PO DAILY@0630 30 tabs 6RF Wiliam Wendi docusate sodium 100 mg PO BID 60 caps 6RF Wiliam Adame Coding Level of Care Code Est Pt Level 4 (87732) Diagnoses SVETLANA positive R76.8 Rotator cuff arthropathy of both shoulders M12.811; M12.812 Osteoarthritis of hands, bilateral M19.041; M19.042 Osteoarthritis type: primary
[2022-10-24 14:36] VITALS: BP 116/78; PULSE 96; TEMP 36.5; O2SAT 96; BMI 28.0
== END 2022-10-24 15:16 | disposition home or self-care (01) ==
PROVIDERS: PCP Registered Nurse; Visit Provider Student in an Organized Health Care Education/Training Program
DX: R76.8 Other specified abnormal immunological findings in serum (principal); M18.0 Bilateral primary osteoarthritis of first carpometacarpal joints; M75.101 Unspecified rotator cuff tear or rupture of right shoulder, not specified as traumatic; M75.102 Unspecified rotator cuff tear or rupture of left shoulder, not specified as traumatic
CPT/HCPCS: 99214

== ENCOUNTER → 2022-10-24 14:34 | Outpatient (BNVA) | payer MEDICARE, MEDICAID, SELFPAY | PROVIDERS: PCP Registered Nurse; Visit Provider Student in an Organized Health Care Education/Training Program | DX: R76.8 Other specified abnormal immunological findings in serum (principal); M12.811 Other specific arthropathies, not elsewhere classified, right shoulder; M19.041 Primary osteoarthritis, right hand; M19.042 Primary osteoarthritis, left hand | CPT/HCPCS: 99212 ==

== ENCOUNTER 2023-01-01 02:03 | Inpatient (IN) | payer MEDICARE, MEDICAID, SELFPAY ==
[2023-01-01] VITALS (12 sets, daily range): BP systolic 116–146; BP diastolic 66–100; PULSE 70–99; RESP 14–20; TEMP 36.4–36.6; O2SAT 96–99; BMI 27.5; BMI 27.8
--- NOTE | ~2023-01-01 | CT_ITS ---
EXAMINATION: CT ABDOMEN AND PELVIS WITHOUT CONTRAST CLINICAL INFORMATION: Small bowel obstruction COMPARISON: 09/29/2022 TECHNIQUE: Multidetector volumetric imaging was performed from the superior aspect of the liver through the pubic symphysis. Sagittal and coronal reformatted images were obtained on the technologist's workstation. This CT examination was performed using dose optimization techniques as appropriate, variously including the following: *Automated exposure control *Adjustment of mA and/or kV according to patient size (this includes techniques or standardized protocols for targeted exams where dose is matched to indication/reason for exam; i.e. extremities or head) *Use of iterative reconstruction technique DLP: 584 mGy-cm FINDINGS: LUNG BASES: Redemonstrated findings of subpleural fibrosis. LIVER, GALLBLADDER, AND BILIARY TREE: Liver demonstrates a somewhat nodular hepatic contour. No focal lesion identified on this noncontrast exam. Status post cholecystectomy, with redemonstrated intrahepatic and extrahepatic biliary dilatation which may be physiologic. PANCREAS: Unremarkable. SPLEEN: Unremarkable. ADRENAL GLANDS: Unremarkable. KIDNEYS AND URETERS: No hydronephrosis or obstructing calculus identified. BLADDER: Unremarkable. GASTROINTESTINAL TRACT: There are multiple dilated, gas and fluid-filled small bowel loops within the abdomen/pelvis. In contrast, the distalmost small bowel is collapsed. Transition from dilated to nondilated small bowel is suspected to occur near a segment of fecalization in the pelvis, and overall appearance is consistent with a small bowel obstruction. Small volume of pelvic free fluid. No free air is seen. Mild to moderate stool in the colon. ABDOMINAL WALL: No significant hernia is appreciated. LYMPH NODES: Normal. VASCULAR: Mild to moderate atherosclerotic calcifications. PELVIC VISCERA: Unremarkable. OSSEOUS STRUCTURES: Degenerative changes are noted in the spine. CT/CT abdomen pelvis wo IV con IMPRESSION: 1. Small bowel obstruction with transition point suspected in the pelvis. Small volume of pelvic free fluid. 2. Redemonstrated intrahepatic and extrahepatic biliary dilatation, which may be physiologic in the setting of prior cholecystectomy. 3. Redemonstrated findings of pulmonary fibrosis.
--- NOTE | ~2023-01-01 | FL_ITS ---
EXAMINATION: FL SMALL BOWEL SERIES CLINICAL INFORMATION: Small bowel obstruction. COMPARISON: CT abdomen and pelvis 01/01/2023. TECHNIQUE: Following a hand bulldozer image of the abdomen, 2 cups of Gastrografin was administered orally, and interval abdominal radiographs were performed to assess for contrast progression through the small bowel. Following contrast transit through the small bowel and into the colon, the patient was placed on the fluoroscopy table, and multiple spot images were obtained. FINDINGS: National Sales Representative image of the abdomen demonstrates a normal bowel gas pattern. Multiple surgical clips are present in the pelvis. There is a mild scoliosis convex to the right. There is normal transit time of contrast material through the small bowel, with contrast present in the colon by the first 25-minute film. Small bowel loops are of normal caliber throughout the abdomen and pelvis. The jejunal and ileal fold patterns are normal, without evidence of abnormal thickening. No fixed regions of luminal narrowing are seen to suggest stricturing. The terminal ileum demonstrates a normal appearance. FLUOROSCOPY TIME: 1 minute 10 seconds DOSE AREA PRODUCT: 265.7 Gy-cm2 FL/FL small bowel follow through IMPRESSION: Normal small bowel series. No evidence of small bowel obstruction
--- NOTE | 2023-01-01 02:11 | ED.ABDPAIN ---
HPI - Abdominal Pain General Chief Complaint: Abdominal Pain Stated Complaint: abdominal pain/ nausea vommiting Time Seen by Provider: 01/01/23 02:11 Mode of arrival: ambulatory Limitations: no limitations History of Present Illness HPI narrative: patient is 72 years old with history of frequent bowel obstructions was admitted here on 09/23/22 for partial small-bowel obstruction treated conservatively with NG tube had remote history of colon resection for cancer and cholecystectomy and appendectomy comes here for increased abdominal discomfort nausea and vomiting multiple times not passing any gas Related Data Home Medications Medication Instructions Recorded Confirmed fluticasone propionate 50 1 spray intranasal DAILY PRN 08/20/20 09/23/22 mcg/actuation nasal Allergy Symptoms spray,suspension cholecalciferol (vitamin D3) 125 125 mcg PO DAILY 01/05/22 09/23/22 mcg (5,000 unit) capsule guaifenesin 600 mg tablet, 600 mg PO Q12H PRN Congestion 04/08/22 09/23/22 extended release 12 hr (Mucinex) multivitamin 1 tab PO DAILY 04/08/22 09/23/22 escitalopram oxalate 10 mg tablet 10 mg PO DAILY 07/24/22 09/23/22 fluticasone furoate 200 1 ea inhalation DAILY 07/24/22 09/23/22 mcg-vilanterol 25 mcg/dose inhalation powder (Breo Ellipta) hydroxyzine HCl 25 mg tablet 25 mg PO BID PRN anxiety 07/24/22 09/23/22 albuterol sulfate 90 mcg/actuation 2 puff inhalation Q6H PRN for 09/23/22 09/23/22 aerosol inhaler (Ventolin HFA) wheezing docusate sodium 100 mg capsule 100 mg PO DAILY PRN Constipation 09/23/22 09/23/22 ipratropium 0.5 mg-albuterol 3 mg 3 ml inhalation Q6H PRN 09/23/22 09/23/22 (2.5 mg base)/3 mL nebulization BRONCHIECTASIS/BRONCHITIS soln lorazepam 0.5 mg tablet 0.5 mg PO BEDTIME PRN Anxiety 09/23/22 09/23/22 pantoprazole 40 mg tablet,delayed 40 mg PO BID 09/23/22 09/23/22 release Previous Rx's Medication Instructions Recorded metoprolol succinate 25 mg 25 mg PO DAILY #90 tabs 01/19/21 tablet,extended release 24 hr sucralfate 1 gram tablet 2 g (2 x 1 gram) PO BID #120 tabs 09/05/22 docusate sodium 100 mg capsule 100 mg PO BID #60 caps 10/05/22 (Colace) lidocaine 5 % topical patch 1 patch topical DAILY PRN Pain #30 10/24/22 (Lidoderm) ea Allergies Allergy/AdvReac Type Severity Reaction Status Date / Time ciprofloxacin [From Cipro] AdvReac Intermediate Facial Verified 10/24/22 14:36 redness, lip swelling Review of Systems Review of Systems Yes all other systems are reviewed and are negative [facility] Past Medical History Medical History COPD (chronic obstructive pulmonary disease) SBO (small bowel obstruction) Bronchitis Rectal bleeding Sinusitis Bronchitis Post covid-19 condition, unspecified Sinusitis Interstitial lung disease Asthma Bronchiectasis Cough Shoulder pain, bilateral Vertigo Dysuria Seasonal allergies Hyperglycemia Palpitation Hemochromatosis Tubular adenoma Recurrent intestinal obstruction Colon cancer Vaginal cancer Surgical History History of cholecystectomy History of esophagogastroduodenoscopy (EGD) H/O colonoscopy H/O colectomy Family History Family History Father Dementia GSW (gunshot wound) CAD (coronary artery disease) Mother GSW (gunshot wound) Family/Other Diabetes mellitus Brother CAD (coronary artery disease) Sister Multiple sclerosis Sister Rheumatoid arthritis Sister Rheumatoid arthritis Social History Social History Household Members: None and Other Household Members Other:: aunt a 96 years old Housing: House Do you presently have visiting nurse or other home services: No Alcohol intake: never Patient Tobacco Use Status: Never used Tobacco Smoked in Last 30 Days: No e-Cigarette/Vaping Use: Never Used Second Hand Smoke Exposure: No Use of substances other than those prescribed or required for medical reasons: No Advance Directives: Yes Advance Directives on File: Yes Advance Directives Date on File: 04/09/22 service: No Current occupational status: unemployed Sexual orientation: Straight/Heterosexual Gender identity: Female Physical Exam ED Vital Signs: Vital Signs - 24 hr 01/01/23 02:12 01/01/23 02:33 01/01/23 03:14 Temperature 97.9 F Pulse Rate 86 99 Respiratory Rate 16 18 14 Blood Pressure 146/91 H 134/68 Pulse Oximetry 98 98 Oxygen Delivery Method Room Air Room Air 01/01/23 03:47 01/01/23 03:54 01/01/23 04:17 Temperature Pulse Rate 90 82 Respiratory Rate 17 16 16 Blood Pressure 127/82 Pulse Oximetry 96 Oxygen Delivery Method Room Air 01/01/23 05:57 Temperature Pulse Rate 92 Respiratory Rate 16 Blood Pressure 118/67 Pulse Oximetry 98 Oxygen Delivery Method Room Air BMI result Body Mass Index 27.5 Appearance: Alert. Oriented X3. in moderate distress. Eyes: no pallor or icterus ENT: Pharynx normal. Oral Mucosa moist Neck: Normal inspection. Neck supple. CVS: Normal heart rate and rhythm. Pulses normal. Respiratory: No respiratory distress. Equal air entry bilateral, no wheezing/rales/rhonchi Abdomen: Soft , diffuse tenderness with guarding in left lower quadrant no rebound tenderness Bowel sounds hyperactive no mass palpable, no CVA tenderness Skin: Skin warm and dry. Normal skin color. Normal skin turgor. Extremities: No lower extremity edema. No calf tenderness Neuro: Oriented X 3. Medical Decision Making Medical Decision Making MDM Narrative: Patient with recurrent small-bowel obstruction not requiring surgery comes in with similar episode of pain and vomiting felt better after vomiting CT scan of the abdomen showed dilated bowels with transition zone at pelvis area Patient feeling much comfortable after pain medication and vomited prior to arrival refusing to place NG tube at this time as past will admit patient for observation hydration Differential Diagnosis Differential Diagnoses: The differential diagnosis associated with the presentation includes Small-bowel obstruction/paralytic ileus/diverticulitis Consult Healthcare Provider Management of the patient was discussed with: Hospitalist and Farm Operations Manager Case discussed with Dr. Ray surgeon advised to admit to medical service Lab Data MDM Lab Attestation statement: I reviewed the patient's lab results. 01/01/23 02:26 01/01/23 02:26 Labs: Lab Results 01/01/23 01/01/23 01/01/23 Range/Units 02:26 02:29 03:18 WBC 8.1 (4.8-10.8) X10*3/uL RBC 3.50 L (4.20-5.50) X10*6/uL Hgb 11.3 L (12.0-16.0) g/dl Hct 34.3 L (37.0-47.0) % MCV 98.0 (80.0-98.0) fL MCH 32.3 (27.0-33.0) pg MCHC 32.9 (31.0-35.0) g/dl RDW 13.2 (11.0-16.0) % Plt Count 228 (160-400) X10*3/uL MPV 8.9 L (9.4-12.3) fL Immature Gran % (Auto) 0.4 (0.0-0.4) % Neut % (Auto) 79.1 H (45-73) % Lymph % (Auto) 13.2 L (20-40) % [place] % (Auto) 5.7 (2-11) % Eos % (Auto) 1.4 (0-4) % Baso % (Auto) 0.2 (0-2) % Lymph # (Auto) 1.1 L (1.2-4.9) X10*3/uL [place] # (Auto) 0.5 (0.1-1.2) X10*3/uL Eos # (Auto) 0.1 (0.0-0.4) X10*3/uL Baso # (Auto) 0.0 (0.0-0.2) X10*3/uL Abs Immat Gran (auto) 0.03 (0.00-0.03) X10*3/uL Absolute Neuts (auto) 6.4 (2.0-8.3) x10*3/uL Absolute Nucleated RBC 0.000 (0.0-0.012) X10*3/uL Nucleated RBC % (auto) 0.0 (0.0-0.2) /100WBC Sodium 140 (135-145) mmol/L Potassium 4.2 D (3.3-5.1) mmol/L Chloride 106 (96-108) mmol/L Carbon Dioxide 23 (22-29) mmol/L Anion Gap 15 (12-20) BUN 18 H (9-16) mg/dL Creatinine 0.75 (0.5-1.4) mg/dL Estim Creat Clear Calc 59.5 Estimated GFR > 60 Random Glucose 94 (60-115) mg/dL Lactic Acid 0.9 (0.5-2.0) mmol/L Calcium 9.6 D (8.4-10.2) mg/dL Lipase 30 (8-78) U/L Urine Color Yellow Urine Appearance Clear Urine pH 7.5 (5.0-9.0) Ur Specific [place] 1.015 (1.005-1.025) Urine Protein Negative (Neg-Trace) mg/dL Urine Glucose (UA) Negative (Negative) mg/dL Urine Ketones Negative (Negative) mg/dL Urine Blood Negative (Negative) Urine Nitrite Negative (Negative) Ur Leukocyte Esterase Negative (Negative) Medications Administered Discontinued Medications Generic Name Dose Route Start Last Admin Trade Name Freq PRN Reason Stop Dose Admin Hydromorphone HCl 2 mg 01/01/23 03:34 01/01/23 03:47 Hydromorphone Hcl 2 Mg/Ml Vial IVPUSH 01/01/23 03:35 2 mg ONCE ONE Administration Protocol Sodium Chloride 1,000 mls @ 999 mls/hr 01/01/23 02:29 01/01/23 04:00 Ns IV 01/01/23 03:29 Infused .Q1H1M ONE Infusion Morphine Sulfate 4 mg 01/01/23 02:29 01/01/23 02:33 Morphine Sulfate 4 Mg/Ml Cartridge IVPUSH 01/01/23 02:30 4 mg ONCE ONE Administration Protocol Ondansetron HCl 4 mg 01/01/23 02:29 01/01/23 02:34 Ondansetron Hcl 4 Mg/2 Ml Vial IVPUSH 01/01/23 02:30 4 mg ONCE ONE Administration Discharge Plan Discharge Clinical Impression: Small bowel obstruction Patient Disposition: Admitted As Inpatient
[2023-01-01 02:30] LABS: MANUAL DIFF FLAG NO
[2023-01-01 02:31] LABS: Basophils Percent Auto 0.2 % (0-2); Eosinophils Absolute Auto 0.1 X10*3/uL (0.0-0.4); Eosinophils Percent Auto 1.4 % (0-4); Hematocrit 34.3 % (37.0-47.0); Hemoglobin 11.3 g/dl (12.0-16.0); Imm Gran Abs Auto 0.03 X10*3/uL (0.00-0.03); Imm Gran Pct Auto 0.4 % (0.0-0.4); Lymphocytes Absolute Auto 1.1 X10*3/uL (1.2-4.9); Lymphocytes Percent Auto 13.2 % (20-40); Mean Corpuscular HGB Conc 32.9 g/dl (31.0-35.0); Mean Corpuscular Hemoglobin 32.3 pg (27.0-33.0); Mean Platelet Volume 8.9 fL (9.4-12.3); Monocytes Absolute Auto 0.5 X10*3/uL (0.1-1.2); Monocytes Percent Auto 5.7 % (2-11); Neutrophils Absolute Auto 6.4 x10*3/uL (2.0-8.3); Neutrophils Percent Auto 79.1 % (45-73); Platelet Count 228 X10*3/uL (160-400); Red Cell Distribution Width 13.2 % (11.0-16.0); White Blood Count 8.1 X10*3/uL (4.8-10.8)
[2023-01-01] MEDS: Morphine Sulfate 4 MG/ML CARTRIDGE IVPUSH (02:33)
[2023-01-01] MEDS: 0.9 % Sodium Chloride 1,000 ML 999 ML IV (02:34)
[2023-01-01] MEDS: ondansetron HCL 4 MG/2 ML VIAL IVPUSH ×3 (02:34→18:25)
[2023-01-01 02:44] LABS: Anion Gap 15 (12-20); Blood Urea Nitrogen 18 mg/dL (9-16); Calcium 9.6 mg/dL (8.4-10.2); Carbon Dioxide 23 mmol/L (22-29); Chloride 106 mmol/L (96-108); Creatinine Clr Calc Pharmacy 59.5; Estimated Glomerular Filt Rate > 60; Glucose Random 94 mg/dL (60-115); Lipase 30 U/L (8-78); Potassium 4.2 mmol/L (3.3-5.1); Sodium 140 mmol/L (135-145)
[2023-01-01 02:45] LABS: Lactic Acid 0.9 mmol/L (0.5-2.0)
[2023-01-01 03:25] LABS: Appearance Urine Clear; Color Urine Yellow; Glucose Urine UA Negative (Negative); Leukocyte Esterase Urine Negative (Negative); Nitrite Urine Negative (Negative); PH 7.5 (5.0-9.0); Specific Gravity - Urine 1.015 (1.005-1.025); Urine Blood Negative (Negative); Urine Ketones Negative (Negative); Urine Protein Negative (Neg-Trace)
[2023-01-01] MEDS: HYDROmorphone HCl 2 MG/ML VIAL IVPUSH (03:47)
--- NOTE | 2023-01-01 07:24 | P.HPHOSP_ITS ---
History of Present Illness Date of Service: 01/01/23 Chief Complaint: SBO 72 year old women with hx of multiple episodes of SBO following colon cancer. She reported nausea and vomiting and diffuse abdominal pain. She denied improperly cooked foods, recent travel, sick contacts. no fever or leukocytosis noted, all other labs within normal limits, vital signs stable. Abdominal CT showing SBO with transition point suspected in pelvic with small volume of free fluid in pelvic. She received IV fluids, pain medication and antiemetic in the ED. She will be admitted for further management and treatment of SBO. Review of Systems 2 Review of Systems: Denies any recent fever chills or decrease in appetite respiratory denies any shortness of breath coverage production cardiovascular Denied chest pain gastrointestinal denies any dysphagia abdominal pain nausea vomiting or diarrhea genitourinary denies any dysuria frequency or hematuria musculoskeletal denies any joint pain or swelling neuropsych denies any weakness or seizures all other systems reviewed are negative PMFSH Medical History COPD (chronic obstructive pulmonary disease) SBO (small bowel obstruction) Rectal bleeding Bronchitis Post covid-19 condition, unspecified Sinusitis Interstitial lung disease Asthma Bronchiectasis Shoulder pain, bilateral Vertigo Dysuria Seasonal allergies Hyperglycemia Palpitation Hemochromatosis Tubular adenoma Colon cancer Vaginal cancer Family History Father Dementia GSW (gunshot wound) CAD (coronary artery disease) Mother GSW (gunshot wound) Family/Other Diabetes mellitus Brother CAD (coronary artery disease) Sister Multiple sclerosis Sister Rheumatoid arthritis Sister Rheumatoid arthritis Surgical History History of cholecystectomy History of esophagogastroduodenoscopy (EGD) H/O colonoscopy H/O colectomy Social History Household Members: None and Other Household Members Other:: aunt a 96 years old Housing: House Do you presently have visiting nurse or other home services: No Alcohol intake: never Patient Tobacco Use Status: Never used Tobacco Smoked in Last 30 Days: No e-Cigarette/Vaping Use: Never Used Second Hand Smoke Exposure: No Use of substances other than those prescribed or required for medical reasons: No Advance Directives: Yes Advance Directives on File: Yes Advance Directives Date on File: 04/09/22 Nutrition Risks: No Nutritional Risk service: No Current occupational status: unemployed Sexual orientation: Straight/Heterosexual Gender identity: Female Meds Allergies Allergy/AdvReac Type Severity Reaction Status Date / Time ciprofloxacin [From Cipro] AdvReac Intermediate Facial Verified 10/24/22 14:36 redness, lip swelling Home Medications Medication Instructions Recorded Confirmed Last Taken Type cholecalciferol (vitamin D3) 125 125 mcg PO DAILY 01/05/22 01/01/23 09/22/22 History mcg (5,000 unit) capsule multivitamin 1 tab PO DAILY 04/08/22 01/01/23 09/22/22 History fluticasone furoate 200 1 ea inhalation DAILY 07/24/22 01/01/23 09/22/22 History mcg-vilanterol 25 mcg/dose inhalation powder (Breo Ellipta) albuterol sulfate 90 mcg/actuation 2 puff inhalation Q6H PRN for 09/23/22 01/01/23 Unknown History aerosol inhaler (Ventolin HFA) wheezing lorazepam 0.5 mg tablet 0.5 mg PO BEDTIME PRN Anxiety 09/23/22 01/01/23 Unknown History pantoprazole 40 mg tablet,delayed 40 mg PO BID 09/23/22 01/01/23 09/22/22 History release Physical Exam 2 Vital Signs and Narrative: Vital Signs: Last Vital Signs Temp 97.9 F 01/01/23 02:12 Pulse 92 01/01/23 05:57 Resp 16 01/01/23 05:57 BP 118/67 01/01/23 05:57 Pulse Ox 98 01/01/23 05:57 O2 Del Method Room Air 01/01/23 05:57 BMI result Body Mass Index 27.5 Results Labs 01/01/23 02:26 01/01/23 02:26 Labs: Laboratory Results - last 24 hr 01/01/23 01/01/23 01/01/23 02:26 02:29 03:18 MCV 98.0 MCH 32.3 MCHC 32.9 RDW 13.2 Plt Count 228 MPV 8.9 L Immature Gran % (Auto) 0.4 Neut % (Auto) 79.1 H Lymph % (Auto) 13.2 L [place] % (Auto) 5.7 Eos % (Auto) 1.4 Baso % (Auto) 0.2 Lymph # (Auto) 1.1 L [place] # (Auto) 0.5 Eos # (Auto) 0.1 Baso # (Auto) 0.0 Abs Immat Gran (auto) 0.03 Absolute Neuts (auto) 6.4 Absolute Nucleated RBC 0.000 Nucleated RBC % (auto) 0.0 Anion Gap 15 Estim Creat Clear Calc 59.5 Estimated GFR > 60 Random Glucose 94 Lactic Acid 0.9 Calcium 9.6 D Lipase 30 Urine Color Yellow Urine Appearance Clear Urine pH 7.5 Ur Specific [place] 1.015 Urine Protein Negative Urine Glucose (UA) Negative Urine Ketones Negative Urine Blood Negative Urine Nitrite Negative Ur Leukocyte Esterase Negative Imaging Radiologist's Impressions: Impressions Abdomen/Pelvis CT 01/01/23 03:40 IMPRESSION: 1. Small bowel obstruction with transition point suspected in the pelvis. Small volume of pelvic free fluid. 2. Redemonstrated intrahepatic and extrahepatic biliary dilatation, which may be physiologic in the setting of prior cholecystectomy. 3. Redemonstrated findings of pulmonary fibrosis. Assessment and Plan (1) Small bowel obstruction: Status: Acute Plan 72 year old women admitted with SBO with nausea and vomiting Small bowel obstruction Hx of previous episodes some nausea, no more vomiting IV pepcid for heartburn IV fluids pain management clear liquid diet for now general surgery>bowel rest and hydration, NGT if having ongoing vomiting. Significant stool burden with ? of radiation enteritis GI consult pending for possible radiation enteritis Hx of palpitations continue BB COPD no exacerbation albuterol as needed mental health continue home medications DVT prophylaxis with SCD boots for now Full code Patient requires 2 inpatient midnights for treatment of small-bowel obstruction requiring close monitoring, IV pain medication IV fluids Time Spent With Patient Time: Total time managing care of this patient today ____ minutes. Quality Stroke Does the patient have a stroke diagnosis?: No VTE Prior VTE?: No VTE Risk Level:: Medical - moderate - high VTE Device Contraindication: N/A - Device Ordered VTE Drug Contraindication: Treatment Not Indicated
--- NOTE | 2023-01-01 07:27 | PM.CNGS ---
History of Present Illness Consult details Consult date: 01/01/23 Reason for consult: abdominal pain Narrative: The patient is a 72-year-old woman with a history of multiple small-bowel obstructions after multiple abdominal operations, all of which have been managed non operatively. 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 She presented with another episode of abdominal pain and symptoms consistent with PE SBO and I was asked to consult to help direct her care. The patient notes a history of constipation and has been working with Lelo Tabor in Gastroenterology. Patient has been diagnosed with radiation proctitis and underwent RT for vaginal cancer in the . In reviewing the EMR, Dr. Hall notes indicate the patient had a low anterior resection for rectal cancer. Per Dr. Ellis notes and Gastroenterology from earlier this summer, the patient has radiation proctitis and it is conceivable she has small-bowel enteritis. Patient also notes a right rotator cuff problem and has been taking hydrocodone for the past 2 and half weeks. She reports her last bowel movement was yesterday and notes that she started passing gas earlier today and is having less bloating and no further vomiting. She denies any severe abdominal pain at the time of evaluation at 1300 and has been passing gas since this morning. Review of Systems Review of Systems: Yes all other systems are reviewed and are negative Constitutional: Constitutional: Reports as per [facility] Past Medical History Medical History COPD (chronic obstructive pulmonary disease) SBO (small bowel obstruction) Rectal bleeding Bronchitis Post covid-19 condition, unspecified Sinusitis Interstitial lung disease Asthma Bronchiectasis Shoulder pain, bilateral Vertigo Dysuria Seasonal allergies Hyperglycemia Palpitation Hemochromatosis Tubular adenoma Colon cancer Vaginal cancer Family History Family History Father Dementia GSW (gunshot wound) CAD (coronary artery disease) Mother GSW (gunshot wound) Family/Other Diabetes mellitus Brother CAD (coronary artery disease) Sister Multiple sclerosis Sister Rheumatoid arthritis Sister Rheumatoid arthritis Surgical History Surgical History History of cholecystectomy History of esophagogastroduodenoscopy (EGD) H/O colonoscopy H/O colectomy Social History Social History Household Members: None and Other Household Members Other:: aunt a 96 years old Housing: House Do you presently have visiting nurse or other home services: No Alcohol intake: never Patient Tobacco Use Status: Never used Tobacco Smoked in Last 30 Days: No e-Cigarette/Vaping Use: Never Used Second Hand Smoke Exposure: No Use of substances other than those prescribed or required for medical reasons: No Advance Directives: Yes Advance Directives on File: Yes Advance Directives Date on File: 04/09/22 Nutrition Risks: No Nutritional Risk service: No Current occupational status: unemployed Sexual orientation: Straight/Heterosexual Gender identity: Female Meds Allergies Allergy/AdvReac Type Severity Reaction Status Date / Time ciprofloxacin [From Cipro] AdvReac Intermediate Facial Verified 10/24/22 14:36 redness, lip swelling Active Medications: Current Medications Acetaminophen (Acetaminophen 325 Mg Tablet) 650 mg PO Q6H PRN PRN Reason: Pain, Mild (Pain Scale 1-3) Sodium Chloride (Ns) 1,000 mls @ 100 mls/hr IVCONT .Q10H [place] Ondansetron HCl (Ondansetron Hcl 4 Mg/2 Ml Vial) 4 mg IVPUSH Q8H PRN PRN Reason: Nausea and Vomiting Sodium Chloride (0.9 % Sodium Chloride Flush 3 Ml Syringe) 3 ml IVFLUSH QSHIFT [place] Home Medications Medication Instructions Recorded Confirmed Last Taken Type cholecalciferol (vitamin D3) 125 125 mcg PO DAILY 01/05/22 01/01/23 09/22/22 History mcg (5,000 unit) capsule multivitamin 1 tab PO DAILY 04/08/22 01/01/23 09/22/22 History fluticasone furoate 200 1 ea inhalation DAILY 07/24/22 01/01/23 09/22/22 History mcg-vilanterol 25 mcg/dose inhalation powder (Breo Ellipta) albuterol sulfate 90 mcg/actuation 2 puff inhalation Q6H PRN for 09/23/22 01/01/23 Unknown History aerosol inhaler (Ventolin HFA) wheezing lorazepam 0.5 mg tablet 0.5 mg PO BEDTIME PRN Anxiety 09/23/22 01/01/23 Unknown History pantoprazole 40 mg tablet,delayed 40 mg PO BID 09/23/22 01/01/23 09/22/22 History release Physical Exam Vital Signs: Vital Signs: Last Vital Signs Temp 97.9 F 01/01/23 02:12 Pulse 92 01/01/23 05:57 Resp 16 01/01/23 05:57 BP 118/67 01/01/23 05:57 Pulse Ox 98 01/01/23 05:57 O2 Del Method Room Air 01/01/23 05:57 BMI result Body Mass Index 27.5 The patient is non-toxic & in good spirits NC/AT, PERRLA, EOMI Mood, affect & judgment all appear appropriate Sclera anicteric conjunctiva pink and moist Oropharynx is clear with no aphthous ulcers, Mallampati class 4, mucous membranes moist Neck is supple with no masses, adenopathy or bruits Heart is regular, normal S1-S2 no rubs or murmurs Lungs are clear and equal anteriorly with no audible wheezing, rubs or dullness to percussion No CVA tenderness present Abdomen is overweight with no demonstrable hernias. No HSM, rebound, rigidity, guarding, masses or bruits are present. Rectal exam is deferred Skin has good turgor and is free of rashes Extremities free of cyanosis clubbing edema Results Labs 01/01/23 02:26 01/01/23 02:26 Labs: Abnormal lab results 01/01/23 Range/Units 02:26 RBC 3.50 L (4.20-5.50) X10*6/uL Hgb 11.3 L (12.0-16.0) g/dl Hct 34.3 L (37.0-47.0) % MPV 8.9 L (9.4-12.3) fL Neut % (Auto) 79.1 H (45-73) % Lymph % (Auto) 13.2 L (20-40) % Lymph # (Auto) 1.1 L (1.2-4.9) X10*3/uL BUN 18 H (9-16) mg/dL Short CBC 01/01/23 Range/Units 02:26 WBC 8.1 (4.8-10.8) X10*3/uL Hgb 11.3 L (12.0-16.0) g/dl Hct 34.3 L (37.0-47.0) % Plt Count 228 (160-400) X10*3/uL BMP 01/01/23 02:26 Sodium 140 Potassium 4.2 D Chloride 106 Carbon Dioxide 23 BUN 18 H Creatinine 0.75 Calcium 9.6 D Urine 01/01/23 Range/Units 03:18 Urine Color Yellow Urine Appearance Clear Urine pH 7.5 (5.0-9.0) Ur Specific [place] 1.015 (1.005-1.025) Urine Protein Negative (Neg-Trace) mg/dL Urine Glucose (UA) Negative (Negative) mg/dL All other labs normal. Imaging Abdomen CT scan report/results: report reviewed and image reviewed CT scan - pelvis: report reviewed and image reviewed Assessment and Plan (1) Small bowel obstruction: Status: Acute (2) COPD (chronic obstructive pulmonary disease): Status: Acute (3) Radiation enteritis: Status: Acute (4) History of colon cancer: Status: Acute Plan Would recommend bowel rest and hydration. NG for ongoing nausea or vomiting. The patient has a surprising stool burden and may have radiation enteritis. If there was failure to improve within 24 to 48 hours, discussion with Gastroenterology for the role regarding possible steroids in radiation enteritis may be helpful. Patient would be a significant operative risk given her multiple operations and radiation. Will follow Patient reports interval flatus since this morning. Her 2 and half weeks of narcotic use may be contributing to constipation which we discussed. At this time, she does not have an acute surgical abdomen and given her history of prior nonsurgical management is unlikely to require operative intervention given her benign abdomen and interval improvement. Time Spent With Patient Time: Total time managing care of this patient today ____ minutes. Procedures Date of Service Date of Service: 01/01/23
[2023-01-01] MEDS: 0.9 % Sodium Chloride Flush 3 ML SYRINGE IVFLUSH (07:45)
[2023-01-01] MEDS: 0.9 % Sodium Chloride 1,000 ML 100 ML IVCONT ×2 (07:45→18:25)
--- NOTE | 2023-01-01 08:17 | PC.NURSE ---
pt reporting 9/10 pain in her abd. reports nausea, has had limited vomiting since last anti-emetic dose last night. requesting pain meds at this time, [facility] sent to [facility] requesting PRN pain medications. awaiting orders at this time. pt resting in bed, some discomfort noted. IVF NS running at 100 ml/hr through a 20 in her L forearm. pt appears in NAD, respirations even and unlabored, skin PWD
--- NOTE | 2023-01-01 08:43 | PC.NURSE ---
awaiting orders for pain management, currently provided with warm compress and warm blankets
[2023-01-01] MEDS: HYDROmorphone HCl 0.5 MG/0.5 ML SYRINGE IVPUSH ×3 (09:47→18:26)
[2023-01-01] MEDS: Famotidine/PF 20 MG/2 ML VIAL IVPUSH ×2 (09:48→20:09)
--- NOTE | 2023-01-01 10:26 | MHC.CM.PN ---
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
--- NOTE | 2023-01-01 10:43 | MHC.CM.PN ---
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
--- NOTE | 2023-01-01 14:10 | PC.NURSE ---
12/18 abd. pain. +CMS. talking w/o distress. 138/83. hr 75
--- NOTE | 2023-01-01 15:18 | PM.GICN ---
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 Gastroenterology has been consulted for question of radiation enteritis. The patient reports that she was doing well yesterday, had a bowel movement in the evening, had dinner without any issues, then later in the night developed lower abdominal cramping and pain associated with nausea. By the early hours of morning, she had multiple episodes of vomiting and the pain became more diffuse. Since she has had small bowel obstruction and so many times, she knew that this was just another episode and therefore presented to the emergency room. No fevers, chills, blood in stool previous to this. At baseline, does not report any chronic abdominal pain, nausea, bloating, diarrhea. On initial presentation, was noted to be widely stable and afebrile. Labs were significant for elevated BUN. CT abdomen pelvis shows left pelvic transition point. This is similar to which she has had in the past. ?[place] from LAR noted in this area. Review of Systems Review of Systems: Yes all other systems are reviewed and are negative PMFSH Past Medical History Medical History COPD (chronic obstructive pulmonary disease) SBO (small bowel obstruction) Rectal bleeding Bronchitis Post covid-19 condition, unspecified Sinusitis Interstitial lung disease Asthma Bronchiectasis Shoulder pain, bilateral Vertigo Dysuria Seasonal allergies Hyperglycemia Palpitation Hemochromatosis Tubular adenoma Colon cancer Vaginal cancer Family History Family History Father Dementia GSW (gunshot wound) CAD (coronary artery disease) Mother GSW (gunshot wound) Family/Other Diabetes mellitus Brother CAD (coronary artery disease) Sister Multiple sclerosis Sister Rheumatoid arthritis Sister Rheumatoid arthritis Surgical History Surgical History History of cholecystectomy History of esophagogastroduodenoscopy (EGD) H/O colonoscopy H/O colectomy Social History Social History Household Members: None and Other Household Members Other:: aunt a 96 years old Housing: House Do you presently have visiting nurse or other home services: No Alcohol intake: never Patient Tobacco Use Status: Never used Tobacco Smoked in Last 30 Days: No e-Cigarette/Vaping Use: Never Used Second Hand Smoke Exposure: No Use of substances other than those prescribed or required for medical reasons: No Advance Directives: Yes Advance Directives on File: Yes Advance Directives Date on File: 04/09/22 Nutrition Risks: No Nutritional Risk service: No Current occupational status: unemployed Sexual orientation: Straight/Heterosexual Gender identity: Female Meds Allergies Allergy/AdvReac Type Severity Reaction Status Date / Time ciprofloxacin [From Cipro] AdvReac Intermediate Facial Verified 10/24/22 14:36 redness, lip swelling Active Medications: Current Medications Acetaminophen (Acetaminophen 325 Mg Tablet) 650 mg PO Q6H PRN PRN Reason: Pain, Mild (Pain Scale 1-3) Albuterol Sulfate (Albuterol Sulfate 90 Mcg 8 Gm Inhaler) 2 puff INHALE Q6H PRN PRN Reason: for wheezing Famotidine (Famotidine/Pf 20 Mg/2 Ml Vial) 20 mg IVPUSH BID [facility] Last Admin: 01/01/23 09:48 Dose: 20 mg Hydromorphone HCl (Hydromorphone Hcl 0.5 Mg/0.5 Ml Syringe) 0.5 mg IVPUSH Q4H PRN; Protocol PRN Reason: abdominal pain Last Admin: 01/01/23 14:05 Dose: 0.5 mg Sodium Chloride (Ns) 1,000 mls @ 100 mls/hr IVCONT .Q10H [facility] Last Admin: 01/01/23 07:45 Dose: 100 mls/hr Lorazepam (Lorazepam 0.5 Mg Tablet) 0.5 mg PO BEDTIME PRN PRN Reason: Anxiety Metoprolol Succinate (Metoprolol Succinate Er 25 Mg Tab.Er.24h) 25 mg PO DAILY [facility]; Protocol Ondansetron HCl (Ondansetron Hcl 4 Mg/2 Ml Vial) 4 mg IVPUSH Q8H PRN PRN Reason: Nausea and Vomiting Last Admin: 01/01/23 09:12 Dose: 4 mg Sodium Chloride (0.9 % Sodium Chloride Flush 3 Ml Syringe) 3 ml IVFLUSH QSHIFT [facility] Last Admin: 01/01/23 07:45 Dose: 3 ml Home Medications Medication Instructions Recorded Confirmed Last Taken Type cholecalciferol (vitamin D3) 125 125 mcg PO DAILY 01/05/22 01/01/23 09/22/22 History mcg (5,000 unit) capsule multivitamin 1 tab PO DAILY 04/08/22 01/01/23 09/22/22 History fluticasone furoate 200 1 ea inhalation DAILY 07/24/22 01/01/23 09/22/22 History mcg-vilanterol 25 mcg/dose inhalation powder (Breo Ellipta) albuterol sulfate 90 mcg/actuation 2 puff inhalation Q6H PRN for 09/23/22 01/01/23 Unknown History aerosol inhaler (Ventolin HFA) wheezing lorazepam 0.5 mg tablet 0.5 mg PO BEDTIME PRN Anxiety 09/23/22 01/01/23 Unknown History pantoprazole 40 mg tablet,delayed 40 mg PO BID 09/23/22 01/01/23 09/22/22 History release Physical Exam Vital Signs: Vital Signs: Last Vital Signs Temp 98 F 01/01/23 14:10 Pulse 75 01/01/23 14:10 Resp 18 01/01/23 14:10 BP 138/83 01/01/23 14:10 Pulse Ox 98 01/01/23 14:10 O2 Del Method Room Air 01/01/23 14:10 BMI result Body Mass Index 27.5 Gen appear: Nontoxic appearing HEENT: no icterus, no cervical lymphadenopathy Chest: No overt resp distress CVS: S1/S2, regular Abd: soft, mildly distended, tender diffusely Psych: Stable affect, answering questions appropriately Neuro: A/Ox3 noted to move all extremities spontaneously Ext: no peripheral edema Results Labs 01/01/23 02:26 01/01/23 02:26 Labs: Short CBC 01/01/23 Range/Units 02:26 WBC 8.1 (4.8-10.8) X10*3/uL Hgb 11.3 L (12.0-16.0) g/dl Hct 34.3 L (37.0-47.0) % Plt Count 228 (160-400) X10*3/uL BMP 01/01/23 02:26 Sodium 140 Potassium 4.2 D Chloride 106 Carbon Dioxide 23 BUN 18 H Creatinine 0.75 Calcium 9.6 D Urine 01/01/23 Range/Units 03:18 Urine Color Yellow Urine Appearance Clear Urine pH 7.5 (5.0-9.0) Ur Specific [place] 1.015 (1.005-1.025) Urine Protein Negative (Neg-Trace) mg/dL Urine Glucose (UA) Negative (Negative) mg/dL Assessment and Plan (1) Small bowel obstruction: Status: Acute Plan Presenting with another episode of small-bowel obstruction with transition point in the left pelvis. Given the absence of baseline chronic symptoms such as chronic abdominal pain, bloating, diarrhea, this argues against radiation enteritis. In addition, on review of imaging (CT scans from 2022), has not had any bowel wall thickening, hyperenhancement or fat stranding in the small bowel loops involved on any of these scans. Clinically low suspicion for radiation enteritis at this time as outlined above. Management of small bowel obstruction as per primary team. Consider NGT placement raisa if N/V worsens. Indication fot gastrograffin SBFT as per surgical team. Thank you for allowing me to participate in her care. Please do not hesitate to reach out for any questions or concerns. Time Spent With Patient Time: Total time managing care of this patient today ____ minutes. Procedures Date of Service Date of Service: 01/01/23
[2023-01-01] MEDS: Lidocaine 4 % Patch ADH..PATCH 1 PATCH TRANSDERMA (20:07)
[2023-01-02] MEDS: HYDROmorphone HCl 0.5 MG/0.5 ML SYRINGE IVPUSH ×5 (00:40→21:41)
[2023-01-02] MEDS: 0.9 % Sodium Chloride 1,000 ML 100 ML IVCONT ×3 (02:50→23:32)
[2023-01-02 03:20] VITALS: BP 122/66; PULSE 74; RESP 18; TEMP 36.7; O2SAT 94
--- NOTE | 2023-01-02 04:32 | PC.NURSE ---
Pt is kept NPO since admission. pain management with IV dilauded. IVF - NS at 100ml/hour for fluid maintenance infusing.
[2023-01-02 05:50] LABS: MANUAL DIFF FLAG NO
[2023-01-02 06:01] LABS: Basophils Percent Auto 0.4 % (0-2); Eosinophils Absolute Auto 0.1 X10*3/uL (0.0-0.4); Eosinophils Percent Auto 1.7 % (0-4); Hemoglobin 9.8 g/dl (12.0-16.0); Imm Gran Abs Auto 0.01 X10*3/uL (0.00-0.03); Imm Gran Pct Auto 0.2 % (0.0-0.4); Lymphocytes Absolute Auto 1.2 X10*3/uL (1.2-4.9); Lymphocytes Percent Auto 26.5 % (20-40); Mean Corpuscular HGB Conc 31.6 g/dl (31.0-35.0); Mean Corpuscular Hemoglobin 33.1 pg (27.0-33.0); Mean Corpuscular Volume 104.7 fL (80.0-98.0); Mean Platelet Volume 9.3 fL (9.4-12.3); Monocytes Absolute Auto 0.4 X10*3/uL (0.1-1.2); Monocytes Percent Auto 9.5 % (2-11); Neutrophils Absolute Auto 2.8 x10*3/uL (2.0-8.3); Neutrophils Percent Auto 61.7 % (45-73); Platelet Count 161 X10*3/uL (160-400); Red Blood Count 2.96 X10*6/uL (4.20-5.50); Red Cell Distribution Width 13.5 % (11.0-16.0); White Blood Count 4.6 X10*3/uL (4.8-10.8)
[2023-01-02 06:31] LABS: Anion Gap 11 (12-20); Blood Urea Nitrogen 11 mg/dL (9-16); Calcium 8.2 mg/dL (8.4-10.2); Carbon Dioxide 21 mmol/L (22-29); Chloride 108 mmol/L (96-108); Creatinine Clr Calc Pharmacy 70.1; Estimated Glomerular Filt Rate > 60; Glucose Random 76 mg/dL (60-115); Potassium 3.8 mmol/L (3.3-5.1); Sodium 136 mmol/L (135-145)
[2023-01-02 07:10] VITALS: BP 139/64; PULSE 91; RESP 16; TEMP 36.6; O2SAT 98
--- NOTE | 2023-01-02 07:29 | P.PNGS_ITS ---
Subjective Subjective Date of Service: 01/02/23 Patient reports: feels better, flatus and bowel movement Interval history: The patient reports interval improvement and notes that she is passing gas and had a small bowel movement this morning. She has had no further nausea, vomiting and denies any chest pain, difficulty breathing or shortness of breath. She has no new complaints/neurologic concern Physical Exam 2 Vital Signs: Vital Signs: Last Vital Signs Temp 98 F 01/02/23 07:10 Pulse 91 01/02/23 07:10 Resp 16 01/02/23 07:10 BP 139/64 01/02/23 07:10 Pulse Ox 98 01/02/23 07:10 O2 Del Method Room Air 01/02/23 07:10 BMI result Body Mass Index 27.8 On exam she is nontoxic She is having no respiratory difficulty Abdomen is less distended with no peritoneal sign and no significant tenderness. Rectal is deferred Objective Data Active Medications Acetaminophen (Acetaminophen 325 Mg Tablet) 650 mg PO Q6H PRN PRN Reason: Pain, Mild (Pain Scale 1-3) Albuterol Sulfate (Albuterol Sulfate 90 Mcg 8 Gm Inhaler) 2 puff INHALE Q6H PRN PRN Reason: for wheezing Famotidine (Famotidine/Pf 20 Mg/2 Ml Vial) 20 mg IVPUSH BID [facility] Last Admin: 01/01/23 20:09 Dose: 20 mg Documented By: MIKE Hydromorphone HCl (Hydromorphone Hcl 0.5 Mg/0.5 Ml Syringe) 0.5 mg IVPUSH Q4H PRN; Protocol PRN Reason: abdominal pain Last Admin: 01/02/23 00:40 Dose: 0.5 mg Documented By: MIKE Sodium Chloride (Ns) 1,000 mls @ 100 mls/hr IVCONT .Q10H [facility] Last Admin: 01/02/23 02:50 Dose: 100 mls/hr Documented By: MIKE Lorazepam (Lorazepam 0.5 Mg Tablet) 0.5 mg PO BEDTIME PRN PRN Reason: Anxiety Metoprolol Succinate (Metoprolol Succinate Er 25 Mg Tab.Er.24h) 25 mg PO DAILY [facility]; Protocol Ondansetron HCl (Ondansetron Hcl 4 Mg/2 Ml Vial) 4 mg IVPUSH Q8H PRN PRN Reason: Nausea and Vomiting Last Admin: 01/01/23 18:25 Dose: 4 mg Documented By: HUYEN Sodium Chloride (0.9 % Sodium Chloride Flush 3 Ml Syringe) 3 ml IVFLUSH QSHIFT [place] Last Admin: 01/02/23 00:20 Dose: Not Given Documented By: MIKE Non-Admin Reason: Previously Administered Labs 01/02/23 04:59 01/02/23 04:59 Labs: Laboratory Results - last 24 hr 01/02/23 04:59 MCV 104.7 H D MCH 33.1 H MCHC 31.6 RDW 13.5 Plt Count 161 D MPV 9.3 L Immature Gran % (Auto) 0.2 Neut % (Auto) 61.7 Lymph % (Auto) 26.5 [place] % (Auto) 9.5 Eos % (Auto) 1.7 Baso % (Auto) 0.4 Lymph # (Auto) 1.2 [place] # (Auto) 0.4 Eos # (Auto) 0.1 Baso # (Auto) 0.0 Abs Immat Gran (auto) 0.01 Absolute Neuts (auto) 2.8 Absolute Nucleated RBC 0.000 Nucleated RBC % (auto) 0.0 Anion Gap 11 L Estim Creat Clear Calc 70.1 Estimated GFR > 60 Random Glucose 76 Calcium 8.2 L D Procedures Date of Service Date of Service: 01/02/23 Progress Note: A&P Assessment and plan (1) Radiation enteritis: Status: Acute (2) Small bowel obstruction: Status: Acute (3) COPD (chronic obstructive pulmonary disease): Status: Acute (4) Radiation proctitis: Status: Acute Plan The patient reports interval improvement with resolution of nausea/vomiting, flatus and bowel movement. She stated she has had this course before and is not ready for liquids at this time and would like to be re-evaluated later today. This is reasonable given the stable labs and exam; diet as per patient's experience given these multiple episodes is also reasonable. Time Spent With Patient Time: Total time managing care of this patient today ____ minutes. Quality Stroke Does the patient have a stroke diagnosis?: No VTE Prior VTE?: No VTE Risk Level:: Medical - moderate - high VTE Device Contraindication: N/A - Device Ordered VTE Drug Contraindication: Treatment Not Indicated
--- NOTE | 2023-01-02 09:02 | MHC.CLN ---
NUTRITION CURRENTLY NPO. SIGNIFICANT WEIGHT LOSS REPORTED. REVIEW OF WEIGHT HX SHOWS WEIGHT ESSENTIALLY STABLE X ONE YEAR. MONITOR FOR DIET ADVANCEMENT.
[2023-01-02] MEDS: Famotidine/PF 20 MG/2 ML VIAL IVPUSH ×2 (09:03→20:19)
[2023-01-02] MEDS: Metoprolol Succinate ER 25 MG TAB.ER.24H PO (09:03)
[2023-01-02] MEDS: ondansetron HCL 4 MG/2 ML VIAL IVPUSH ×3 (09:04→21:59)
--- NOTE | 2023-01-02 11:19 | HO.PM.IMPN ---
Subjective Subjective Date of Service: 01/02/23 Interval History: Feeling better denies nausea, no vomiting since admission, passing flatus, abdominal pain is improving denies lightheadedness or dizziness complaining of congested cough, no shortness of breath, no palpitations, no fevers, no chills, no other acute issues overnight. Review of Systems Right shoulder pain chronic All other system reviewed and negative Physical Exam Vital Signs: Vital Signs: Last Vital Signs Temp 98 F 01/02/23 07:10 Pulse 91 01/02/23 07:10 Resp 16 01/02/23 07:10 BP 139/64 01/02/23 07:10 Pulse Ox 98 01/02/23 07:10 O2 Del Method Room Air 01/02/23 07:10 BMI result Body Mass Index 27.8 Const: Other: General? resting comfortably in no acute distress. anicteric sclera? Neck supple no JVD. CVS? regular rate rhythm, Respiratory lungs coarse breath sound, dry basilar cracklesi. Gastrointestinal abdomen soft, no abdominal tenderness , bowel sounds audible, no guarding , no rigidity. Extremities no edema. Neuro nonfocal . Skin no rash Psych appropriate affect Objective Data Active Medications Acetaminophen (Acetaminophen 325 Mg Tablet) 650 mg PO Q6H PRN PRN Reason: Pain, Mild (Pain Scale 1-3) Albuterol Sulfate (Albuterol Sulfate 90 Mcg 8 Gm Inhaler) 2 puff INHALE Q6H PRN PRN Reason: for wheezing Famotidine (Famotidine/Pf 20 Mg/2 Ml Vial) 20 mg IVPUSH BID [facility] Last Admin: 01/02/23 09:03 Dose: 20 mg Documented By: JAYLEEN Hydromorphone HCl (Hydromorphone Hcl 0.5 Mg/0.5 Ml Syringe) 0.5 mg IVPUSH Q4H PRN; Protocol PRN Reason: abdominal pain Last Admin: 01/02/23 07:26 Dose: 0.5 mg Documented By: JAYLEEN Sodium Chloride (Ns) 1,000 mls @ 100 mls/hr IVCONT .Q10H [facility] Last Admin: 01/02/23 02:50 Dose: 100 mls/hr Documented By: MIKE Lorazepam (Lorazepam 0.5 Mg Tablet) 0.5 mg PO BEDTIME PRN PRN Reason: Anxiety Metoprolol Succinate (Metoprolol Succinate Er 25 Mg Tab.Er.24h) 25 mg PO DAILY [facility]; Protocol Last Admin: 01/02/23 09:03 Dose: 25 mg Documented By: JAYLEEN Ondansetron HCl (Ondansetron Hcl 4 Mg/2 Ml Vial) 4 mg IVPUSH Q8H PRN PRN Reason: Nausea and Vomiting Last Admin: 01/02/23 09:04 Dose: 4 mg Documented By: JAYLEEN Sodium Chloride (0.9 % Sodium Chloride Flush 3 Ml Syringe) 3 ml IVFLUSH QSHIFT [facility] Last Admin: 01/02/23 07:34 Dose: Not Given Documented By: JAYLEEN Non-Admin Reason: IV Running Labs 01/02/23 04:59 01/02/23 04:59 Labs: Laboratory Results - last 24 hr 01/02/23 04:59 MCV 104.7 H D MCH 33.1 H MCHC 31.6 RDW 13.5 Plt Count 161 D MPV 9.3 L Immature Gran % (Auto) 0.2 Neut % (Auto) 61.7 Lymph % (Auto) 26.5 [place] % (Auto) 9.5 Eos % (Auto) 1.7 Baso % (Auto) 0.4 Lymph # (Auto) 1.2 [place] # (Auto) 0.4 Eos # (Auto) 0.1 Baso # (Auto) 0.0 Abs Immat Gran (auto) 0.01 Absolute Neuts (auto) 2.8 Absolute Nucleated RBC 0.000 Nucleated RBC % (auto) 0.0 Anion Gap 11 L Estim Creat Clear Calc 70.1 Estimated GFR > 60 Random Glucose 76 Calcium 8.2 L D Assessment and Plan (1) Small bowel obstruction: Status: Acute Plan 72 year old women admitted with SBO with nausea and vomiting Acute Small bowel obstruction Hx of previous episodes , resolved with conservative management, this episode likely exacerbated due to narcotic use Nausea ,vomiting resolved, passing flatus and had couple small bowel movement this am. NPO, IV fluid and IV pepcid for heartburn , resume PPI when obstruction resolves. Will give Fleet enema CT abdomen showed mild to moderate stool in colon, dilated gas and fluid-filled small bowel loops, small bowel collapse, findings consistent with small-bowel obstruction. Seen by General surgery they recommend bowel rest and hydration. Since patient symptoms improved rapidly will cancel GI consult for possible radiation enteritis . Reassess to resume diet. Hx of palpitations No recurrent symptoms, continue BB COPD /ILD no exacerbation , complaining of cough will add Mucinex and continue albuterol as needed mental health continue home medications Chronic macrocytic anemia with normal B12 and folate in the past. DVT prophylaxis with SCD boots Full code Patient requires continued inpatient hospitalization for treatment of small-bowel obstruction requiring close monitoring, IV pain medication IV fluids Time Spent With Patient Time: Total time managing care of this patient today ____ minutes. Quality Stroke Does the patient have a stroke diagnosis?: No VTE Prior VTE?: No VTE Risk Level:: Medical - moderate - high VTE Device Contraindication: N/A - Device Ordered VTE Drug Contraindication: Treatment Not Indicated
[2023-01-02] MEDS: Lidocaine 4 % Patch ADH..PATCH 1 PATCH TRANSDERMA (14:55)
[2023-01-02 16:00] VITALS: BP 110/66; PULSE 72; RESP 18; TEMP 36.2; O2SAT 96
[2023-01-02 19:58] VITALS: BP 116/68; PULSE 79; RESP 18; TEMP 36.3; O2SAT 97
[2023-01-02] MEDS: 0.9 % Sodium Chloride Flush 3 ML SYRINGE IVFLUSH (20:20)
[2023-01-02] MEDS: LORazepam 0.5 MG TABLET PO (21:41)
[2023-01-02] MEDS: guaiFENesin DM 200/20/10 ML 10 ML SYRUP PO (21:41)
[2023-01-02] MEDS: Albuterol Sulfate 90 MCG 8 GM INHALER 2 PUFF INHALE (21:41)
[2023-01-03] VITALS (8 sets, daily range): BP systolic 125–141; BP diastolic 66–78; PULSE 76–88; RESP 16–19; TEMP 36.3–37.1; O2SAT 95–97
[2023-01-03] MEDS: HYDROmorphone HCl 0.5 MG/0.5 ML SYRINGE IVPUSH ×5 (03:56→20:52)
--- NOTE | 2023-01-03 08:05 | PM.PNGS ---
Subjective Subjective Date of Service: 01/03/23 Patient reports: feels better, still having pain, pain is less, flatus, bowel movement and diarrhea Interval history: Ongoing flatus, bowel movements and denies any nausea or vomiting, however she notes that she continues to have lower abdominal pain and voiced concern over several weeks of vaginal bleeding. 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 We discussed options today including a small-bowel follow-through with Gastrografin verses a diet trial with clear liquids. I have ordered a stat SBFT with Gastrografin as the patient requested and explained that she may have either adhesions or small bowel injury from her pelvic radiation, but the data may direct her care. The importance of following up with her casino dealer regarding the casino dealer complaints was discussed especially since she has history of vaginal cancer. Physical Exam Vital Signs: Vital Signs: Last Vital Signs Temp 98 F 01/03/23 07:05 Pulse 76 01/03/23 07:05 Resp 16 01/03/23 07:05 BP 125/78 01/03/23 07:05 Pulse Ox 97 01/03/23 07:05 O2 Del Method Room Air 01/03/23 07:05 BMI result Body Mass Index 27.8 On exam she is nontoxic She is having no respiratory difficulty Abdomen is less distended with no peritoneal sign and no significant tenderness. Rectal is deferred Objective Data Active Medications Acetaminophen (Acetaminophen 325 Mg Tablet) 650 mg PO Q6H PRN PRN Reason: Pain, Mild (Pain Scale 1-3) Albuterol Sulfate (Albuterol Sulfate 90 Mcg 8 Gm Inhaler) 2 puff INHALE Q6H PRN PRN Reason: for wheezing Last Admin: 01/02/23 21:41 Dose: 2 puff Documented By: MIKE Famotidine (Famotidine/Pf 20 Mg/2 Ml Vial) 20 mg IVPUSH BID [facility] Last Admin: 01/02/23 20:19 Dose: 20 mg Documented By: MIKE Guaifenesin/Dextromethorphan (Guaifenesin Dm 200/20/10 Ml 10 Ml Syrup) 10 ml PO Q6H PRN PRN Reason: Cough Last Admin: 01/02/23 21:41 Dose: 10 ml Documented By: MIKE Hydromorphone HCl (Hydromorphone Hcl 0.5 Mg/0.5 Ml Syringe) 0.5 mg IVPUSH Q4H PRN; Protocol PRN Reason: abdominal pain Last Admin: 01/03/23 03:56 Dose: 0.5 mg Documented By: MIKE Lidocaine (Lidocaine 4 % Patch Adh..Patch) 1 patch TRANSDERMA DAILY [facility]; Protocol Last Admin: 01/02/23 14:55 Dose: 1 patch Documented By: JAYLEEN Lorazepam (Lorazepam 0.5 Mg Tablet) 0.5 mg PO BEDTIME PRN PRN Reason: Anxiety Last Admin: 01/02/23 21:41 Dose: 0.5 mg Documented By: MIKE Metoprolol Succinate (Metoprolol Succinate Er 25 Mg Tab.Er.24h) 25 mg PO DAILY [facility]; Protocol Last Admin: 01/02/23 09:03 Dose: 25 mg Documented By: JAYLEEN Ondansetron HCl (Ondansetron Hcl 4 Mg/2 Ml Vial) 4 mg IVPUSH Q4H PRN PRN Reason: Nausea and Vomiting Last Admin: 01/02/23 21:59 Dose: 4 mg Documented By: MIKE Sodium Chloride (0.9 % Sodium Chloride Flush 3 Ml Syringe) 3 ml IVFLUSH QSHIFT [facility] Last Admin: 01/03/23 07:04 Dose: Not Given Documented By: COTEMA Non-Admin Reason: IV Running Labs 01/02/23 04:59 01/02/23 04:59 Procedures Date of Service Date of Service: 01/03/23 Progress Note: A&P Assessment and plan (1) Small bowel obstruction: Status: Acute (2) Radiation enteritis: Status: Acute (3) COPD (chronic obstructive pulmonary disease): Status: Acute (4) Postmenopausal bleeding: Status: Acute (5) History of colon cancer: Status: Acute Plan While the patient is clinically improved, she notes that she feels different and express concerns regarding several weeks of casino dealer symptoms, specifically vaginal bleeding in the setting of a history of vaginal cancer. Patient also has a history of rectal cancer and is status post low anterior resection. We discussed dietary advancement verses a Gastrografin small-bowel follow-through which I ordered stat. I was contacted and told that there was no radiologist available to do the procedure today, so it will be done tomorrow. The other option would be a trial of clear liquids. Continue present management. Time Spent With Patient Time: Total time managing care of this patient today ____ minutes. Quality Stroke Does the patient have a stroke diagnosis?: No VTE Prior VTE?: No VTE Risk Level:: Medical - moderate - high VTE Device Contraindication: N/A - Device Ordered VTE Drug Contraindication: Treatment Not Indicated
[2023-01-03] MEDS: ondansetron HCL 4 MG/2 ML VIAL IVPUSH ×3 (08:11→20:52)
[2023-01-03] MEDS: Metoprolol Succinate ER 25 MG TAB.ER.24H PO (08:11)
[2023-01-03] MEDS: Famotidine/PF 20 MG/2 ML VIAL IVPUSH ×2 (08:11→20:52)
[2023-01-03] MEDS: Lidocaine 4 % Patch ADH..PATCH 1 PATCH TRANSDERMA (08:12)
--- NOTE | 2023-01-03 09:58 | HO.PM.IMPN ---
Subjective Subjective Date of Service: 01/03/23 Interval History: seen and examined this morning follow up for SBO had small BM yesterday, none today, hasn't passed gas today but overall pain improving Review of Systems Review of Systems: Yes all other systems are reviewed and are negative Constitutional Constitutional: Denies chills and Denies fever(s) ENT Ears, Nose, Mouth, and Throat: Denies dizziness Cardiovascular Cardiovascular: Denies chest pain, Denies palpitations and Denies dyspnea Respiratory Respiratory: Denies cough and Denies dyspnea Gastrointestinal Gastrointestinal: Reports abdominal pain, Denies nausea and Denies vomiting Neurologic Neurologic: Denies dizziness Endocrine Endocrine: Denies palpitations Physical Exam Vital Signs: Vital Signs: Last Vital Signs Temp 98 F 01/03/23 07:05 Pulse 76 01/03/23 07:05 Resp 18 01/03/23 08:11 BP 125/78 01/03/23 07:05 Pulse Ox 97 01/03/23 07:05 O2 Del Method Room Air 01/03/23 07:05 BMI result Body Mass Index 27.8 Const: General: cooperative, comfortable and alert Nutritional Appearance: average body habitus Orientation/consciousness: patient oriented x3 Resp: Effort & Inspection: normal respiratory effort, able to speak in complete sentences, no respiratory distress and no use of accessory muscles Cardio: Rate: regular rate GI: Other: +BS Inspection: No distended Palpation (GI): Soft to palpation Neuro: General: patient oriented x3, moves all extremities and CN's II-XI intact bilaterally Extrem: General: Yes no pedal edema Objective Data Active Medications Acetaminophen (Acetaminophen 325 Mg Tablet) 650 mg PO Q6H PRN PRN Reason: Pain, Mild (Pain Scale 1-3) Albuterol Sulfate (Albuterol Sulfate 90 Mcg 8 Gm Inhaler) 2 puff INHALE Q6H PRN PRN Reason: for wheezing Last Admin: 01/02/23 21:41 Dose: 2 puff Documented By: MIKE Famotidine (Famotidine/Pf 20 Mg/2 Ml Vial) 20 mg IVPUSH BID [facility] Last Admin: 01/03/23 08:11 Dose: 20 mg Documented By: COTMELISSA Guaifenesin/Dextromethorphan (Guaifenesin Dm 200/20/10 Ml 10 Ml Syrup) 10 ml PO Q6H PRN PRN Reason: Cough Last Admin: 01/02/23 21:41 Dose: 10 ml Documented By: KELLYSAIgnacio Hydromorphone HCl (Hydromorphone Hcl 0.5 Mg/0.5 Ml Syringe) 0.5 mg IVPUSH Q4H PRN; Protocol PRN Reason: abdominal pain Last Admin: 01/03/23 08:11 Dose: 0.5 mg Documented By: COTEMA Lidocaine (Lidocaine 4 % Patch Adh..Patch) 1 patch TRANSDERMA DAILY [facility]; Protocol Last Admin: 01/03/23 08:12 Dose: 1 patch Documented By: COTEMA Lorazepam (Lorazepam 0.5 Mg Tablet) 0.5 mg PO BEDTIME PRN PRN Reason: Anxiety Last Admin: 01/02/23 21:41 Dose: 0.5 mg Documented By: MIKE Metoprolol Succinate (Metoprolol Succinate Er 25 Mg Tab.Er.24h) 25 mg PO DAILY [facility]; Protocol Last Admin: 01/03/23 08:11 Dose: 25 mg Documented By: COTEMA Ondansetron HCl (Ondansetron Hcl 4 Mg/2 Ml Vial) 4 mg IVPUSH Q4H PRN PRN Reason: Nausea and Vomiting Last Admin: 01/03/23 08:11 Dose: 4 mg Documented By: COTEMA Sodium Chloride (0.9 % Sodium Chloride Flush 3 Ml Syringe) 3 ml IVFLUSH QSHICHI [facility] Last Admin: 01/03/23 07:04 Dose: Not Given Documented By: COTEMA Non-Admin Reason: IV Running Labs 01/03/23 10:25 01/03/23 10:24 Assessment and Plan (1) Small bowel obstruction: Status: Acute Plan 72 year old women admitted with SBO with nausea and vomiting Acute Small bowel obstruction with transition point Hx of previous episodes, resolved with conservative management, this episode likely exacerbated due to narcotic use Nausea ,vomiting resolved, passing flatus and had couple small bowel movement yesterday, non thus far today NPO, IV fluid and IV pepcid for heartburn , resume PPI when obstruction resolves. s/p Fleet enema 01/02 CT abdomen showed mild to moderate stool in colon, dilated gas and fluid-filled small bowel loops, small bowel collapse, findings consistent with small-bowel obstruction. Seen by General surgery they recommend bowel rest and hydration - plan for small bowel follow through today Since patient symptoms improved rapidly will cancel GI consult for possible radiation enteritis Hx of palpitations No recurrent symptoms, continue BB COPD /ILD no exacerbation, continue Mucinex and continue albuterol as needed mental health continue home medications Chronic macrocytic anemia with normal B12 and folate in the past. DVT prophylaxis with SCD boots Full code attending - dr. Santos Patient requires continued inpatient hospitalization for treatment of small-bowel obstruction requiring close monitoring, IV pain medication IV fluids Time Spent With Patient Time: Total time managing care of this patient today ____ minutes. Quality Stroke Does the patient have a stroke diagnosis?: No VTE Prior VTE?: No VTE Risk Level:: Medical - moderate - high VTE Device Contraindication: N/A - Device Ordered VTE Drug Contraindication: Treatment Not Indicated
[2023-01-03 10:33] LABS: Hematocrit 29.2 % (37.0-47.0); Hemoglobin 9.7 g/dl (12.0-16.0); Mean Corpuscular HGB Conc 33.2 g/dl (31.0-35.0); Mean Corpuscular Hemoglobin 32.8 pg (27.0-33.0); Mean Corpuscular Volume 98.6 fL (80.0-98.0); Mean Platelet Volume 8.9 fL (9.4-12.3); Platelet Count 154 X10*3/uL (160-400); Red Blood Count 2.96 X10*6/uL (4.20-5.50); Red Cell Distribution Width 13.1 % (11.0-16.0)
[2023-01-03 10:43] LABS: Anion Gap 11 (12-20); Blood Urea Nitrogen 9 mg/dL (9-16); Calcium 8.2 mg/dL (8.4-10.2); Carbon Dioxide 23 mmol/L (22-29); Chloride 107 mmol/L (96-108); Estimated Glomerular Filt Rate > 60; Glucose Random 73 mg/dL (60-115); Potassium 3.6 mmol/L (3.3-5.1); Sodium 137 mmol/L (135-145)
[2023-01-03] MEDS: 0.9 % Sodium Chloride 1,000 ML 100 ML IVCONT ×2 (11:08→23:31)
[2023-01-03] MEDS: Diatrizoate Meglumine, Sodium 120 ML SOLUTION 360 ML PO (13:11)
[2023-01-03 13:43] LABS: Hematocrit 34.1 % (37.0-47.0); Hemoglobin 11.5 g/dl (12.0-16.0)
[2023-01-03] MEDS: guaiFENesin DM 200/20/10 ML 10 ML SYRUP PO (20:51)
[2023-01-03] MEDS: LORazepam 0.5 MG TABLET PO (20:51)
[2023-01-03] MEDS: Albuterol Sulfate 90 MCG 8 GM INHALER 2 PUFF INHALE (20:58)
[2023-01-04] VITALS (7 sets, daily range): BP systolic 107–141; BP diastolic 69–75; PULSE 66–86; RESP 16–19; TEMP 36.1–36.4; O2SAT 96–97
[2023-01-04] MEDS: HYDROmorphone HCl 0.5 MG/0.5 ML SYRINGE IVPUSH ×4 (02:26→20:12)
[2023-01-04 05:54] LABS: Hematocrit 31.8 % (37.0-47.0); Hemoglobin 10.5 g/dl (12.0-16.0); Mean Corpuscular Hemoglobin 32.8 pg (27.0-33.0); Mean Corpuscular Volume 99.4 fL (80.0-98.0); Mean Platelet Volume 9.1 fL (9.4-12.3); Platelet Count 181 X10*3/uL (160-400); Red Cell Distribution Width 12.8 % (11.0-16.0); White Blood Count 4.5 X10*3/uL (4.8-10.8)
--- NOTE | 2023-01-04 07:08 | PM.PNGS ---
Subjective Subjective Date of Service: 01/04/23 Patient reports: no new complaints, feels better, pain is less, flatus and bowel movement Interval history: The patient reports interval improvement since evaluation yesterday. She has had ongoing flatus and bowel movements, has some residual cramping in her lower abdomen but overall is improved and requested a regular diet. She otherwise denies any headache, new localizing weakness or symptoms, any chest pain or, difficulty breathing or shortness of breath. Physical Exam Vital Signs: Vital Signs: Last Vital Signs Temp 97 F 01/04/23 06:47 Pulse 86 01/04/23 06:47 Resp 16 01/04/23 06:47 BP 107/69 01/04/23 06:47 Pulse Ox 97 01/04/23 06:47 O2 Del Method Room Air 01/04/23 06:47 BMI result Body Mass Index 27.8 On exam she is nontoxic She is having no respiratory difficulty Abdomen is less distended with no peritoneal sign and no significant tenderness. Rectal is deferred Objective Data Active Medications Acetaminophen (Acetaminophen 325 Mg Tablet) 650 mg PO Q6H PRN PRN Reason: Pain, Mild (Pain Scale 1-3) Albuterol Sulfate (Albuterol Sulfate 90 Mcg 8 Gm Inhaler) 2 puff INHALE Q6H PRN PRN Reason: for wheezing Last Admin: 01/03/23 20:58 Dose: 2 puff Documented By: ALIZAASY Famotidine (Famotidine/Pf 20 Mg/2 Ml Vial) 20 mg IVPUSH BID [facility] Last Admin: 01/03/23 20:52 Dose: 20 mg Documented By: ALIZAASY Guaifenesin/Dextromethorphan (Guaifenesin Dm 200/20/10 Ml 10 Ml Syrup) 10 ml PO Q6H PRN PRN Reason: Cough Last Admin: 01/03/23 20:51 Dose: 10 ml Documented By: ALIZAASY Hydromorphone HCl (Hydromorphone Hcl 0.5 Mg/0.5 Ml Syringe) 0.5 mg IVPUSH Q4H PRN; Protocol PRN Reason: abdominal pain Last Admin: 01/04/23 02:26 Dose: 0.5 mg Documented By: ALIZAASY Sodium Chloride (Ns) 1,000 mls @ 100 mls/hr IVCONT .Q10H [facility] Last Admin: 01/04/23 06:06 Dose: Not Given Documented By: LOVELY Non-Admin Reason: IV Running Lidocaine (Lidocaine 4 % Patch Adh..Patch) 1 patch TRANSDERMA DAILY [facility]; Protocol Last Admin: 01/03/23 08:12 Dose: 1 patch Documented By: COTEMA Lorazepam (Lorazepam 0.5 Mg Tablet) 0.5 mg PO BEDTIME PRN PRN Reason: Anxiety Last Admin: 01/03/23 20:51 Dose: 0.5 mg Documented By: LOVELY Metoprolol Succinate (Metoprolol Succinate Er 25 Mg Tab.Er.24h) 25 mg PO DAILY [facility]; Protocol Last Admin: 01/03/23 08:11 Dose: 25 mg Documented By: COTMELISSA Ondansetron HCl (Ondansetron Hcl 4 Mg/2 Ml Vial) 4 mg IVPUSH Q4H PRN PRN Reason: Nausea and Vomiting Last Admin: 01/03/23 20:52 Dose: 4 mg Documented By: LOVELY Sodium Chloride (0.9 % Sodium Chloride Flush 3 Ml Syringe) 3 ml IVFLUSH QSHIFT [facility] Last Admin: 01/03/23 23:31 Dose: Not Given Documented By: LOVELY Non-Admin Reason: IV Running Labs 01/04/23 04:56 01/03/23 10:24 Labs: Laboratory Results - last 24 hr 01/03/23 01/03/23 01/03/23 10:24 10:25 13:30 MCV 98.6 H D MCH 32.8 MCHC 33.2 RDW 13.1 Plt Count 154 L MPV 8.9 L Absolute Nucleated RBC 0.000 Nucleated RBC % (auto) 0.0 Anion Gap 11 L Estim Creat Clear Calc 66.0 Estimated GFR > 60 Random Glucose 73 Calcium 8.2 L Blood Type O Positive Antibody Screen POSITIVE Antibody Identification Cold Antibody Enhanced Crossmatch See Detail 01/04/23 04:56 MCV 99.4 H MCH 32.8 MCHC 33.0 RDW 12.8 Plt Count 181 MPV 9.1 L Absolute Nucleated RBC 0.000 Nucleated RBC % (auto) 0.0 Anion Gap Estim Creat Clear Calc Estimated GFR Random Glucose Calcium Blood Type Antibody Screen Antibody Identification Enhanced Crossmatch Imaging SBFT neg for SBO: Radiologist's impression: Impressions Upper GI and Small Bowel X-Ray 01/03/23 12:40 IMPRESSION: Normal small bowel series. No evidence of small bowel obstruction Procedures Date of Service Date of Service: 01/04/23 Progress Note: A&P Assessment and plan (1) Small bowel obstruction: Status: Acute (2) Radiation enteritis: Status: Acute (3) COPD (chronic obstructive pulmonary disease): Status: Acute (4) Radiation proctitis: Status: Acute (5) Asthma: Status: Acute Plan The patient has clinically improved and I have advanced her diet. I have encouraged her to discuss food options based on her prior experience with multiple hospitalizations and avoid foods that might upset her guts. Surgically, she is improved. Possibility of discharge later today versus tomorrow as discussed with the patient and her questions seemed to be satisfactorily answered. The importance of follow-up with her gynecology teacher regarding her ongoing concerns about pelvic pain, history of vaginal cancer and vaginal bleeding over the past few weeks was discussed and the patient seems to understand the importance of addressing this concern. Time Spent With Patient Time: Total time managing care of this patient today ____ minutes. Quality Stroke Does the patient have a stroke diagnosis?: No VTE Prior VTE?: No VTE Risk Level:: Medical - moderate - high VTE Device Contraindication: N/A - Device Ordered VTE Drug Contraindication: Treatment Not Indicated
[2023-01-04] MEDS: ondansetron HCL 4 MG/2 ML VIAL IVPUSH ×2 (08:58→16:02)
[2023-01-04] MEDS: Famotidine/PF 20 MG/2 ML VIAL IVPUSH ×2 (08:58→20:03)
[2023-01-04] MEDS: Metoprolol Succinate ER 25 MG TAB.ER.24H PO (08:59)
[2023-01-04] MEDS: Lidocaine 4 % Patch ADH..PATCH 1 PATCH TRANSDERMA (08:59)
--- NOTE | 2023-01-04 15:18 | MHC.CM.PN ---
Pt not yet medically cleared for DC. CM to follow and assist with DC plan.
--- NOTE | 2023-01-04 15:40 | HO.PM.IMPN ---
Subjective Subjective Date of Service: 01/04/23 Interval History: seen and examined this morning increased abdominal cramping after solid food no fever or chills Review of Systems Review of Systems: Yes all other systems are reviewed and are negative Constitutional Constitutional: Denies chills and Denies fever(s) Cardiovascular Cardiovascular: Denies chest pain, Denies palpitations and Denies dyspnea Respiratory Respiratory: Denies cough and Denies dyspnea Gastrointestinal Gastrointestinal: Reports abdominal pain, Reports nausea and Denies vomiting Endocrine Endocrine: Denies palpitations Physical Exam Vital Signs: Vital Signs: Last Vital Signs Temp 97 F 01/04/23 06:47 Pulse 86 01/04/23 06:47 Resp 19 01/04/23 08:59 BP 107/69 01/04/23 06:47 Pulse Ox 97 01/04/23 06:47 O2 Del Method Room Air 01/04/23 06:47 BMI result Body Mass Index 27.8 Const: General: cooperative, comfortable and alert Nutritional Appearance: average body habitus Orientation/consciousness: patient oriented x3 Resp: Effort & Inspection: normal respiratory effort, able to speak in complete sentences, no respiratory distress and no use of accessory muscles Cardio: Rate: regular rate GI: Other: +BS Inspection: No distended Palpation (GI): Soft to palpation Neuro: General: patient oriented x3, moves all extremities and CN's II-XI intact bilaterally Extrem: General: Yes no pedal edema Objective Data Active Medications Acetaminophen (Acetaminophen 325 Mg Tablet) 650 mg PO Q6H PRN PRN Reason: Pain, Mild (Pain Scale 1-3) Albuterol Sulfate (Albuterol Sulfate 90 Mcg 8 Gm Inhaler) 2 puff INHALE Q6H PRN PRN Reason: for wheezing Last Admin: 01/03/23 20:58 Dose: 2 puff Documented By: LOVELY Famotidine (Famotidine/Pf 20 Mg/2 Ml Vial) 20 mg IVPUSH BID [facility] Last Admin: 01/04/23 08:58 Dose: 20 mg Documented By: COTEMA Guaifenesin/Dextromethorphan (Guaifenesin Dm 200/20/10 Ml 10 Ml Syrup) 10 ml PO Q6H PRN PRN Reason: Cough Last Admin: 01/03/23 20:51 Dose: 10 ml Documented By: LOVELY Hydromorphone HCl (Hydromorphone Hcl 0.5 Mg/0.5 Ml Syringe) 0.5 mg IVPUSH Q4H PRN; Protocol PRN Reason: abdominal pain Last Admin: 01/04/23 08:59 Dose: 0.5 mg Documented By: CARLOS.COTEMA Lidocaine (Lidocaine 4 % Patch Adh..Patch) 1 patch TRANSDERMA DAILY [facility]; Protocol Last Admin: 01/04/23 08:59 Dose: 1 patch Documented By: COTEMA Lorazepam (Lorazepam 0.5 Mg Tablet) 0.5 mg PO BEDTIME PRN PRN Reason: Anxiety Last Admin: 01/03/23 20:51 Dose: 0.5 mg Documented By: TUMASY Metoprolol Succinate (Metoprolol Succinate Er 25 Mg Tab.Er.24h) 25 mg PO DAILY [facility]; Protocol Last Admin: 01/04/23 08:59 Dose: 25 mg Documented By: COTEMA Ondansetron HCl (Ondansetron Hcl 4 Mg/2 Ml Vial) 4 mg IVPUSH Q4H PRN PRN Reason: Nausea and Vomiting Last Admin: 01/04/23 08:58 Dose: 4 mg Documented By: COTEMA Sodium Chloride (0.9 % Sodium Chloride Flush 3 Ml Syringe) 3 ml IVFLUSH QSHIFT [facility] Last Admin: 01/04/23 07:16 Dose: Not Given Documented By: COTEMA Non-Admin Reason: IV Running Labs 01/04/23 04:56 01/03/23 10:24 Labs: Laboratory Results - last 24 hr 01/04/23 04:56 MCV 99.4 H MCH 32.8 MCHC 33.0 RDW 12.8 Plt Count 181 MPV 9.1 L Absolute Nucleated RBC 0.000 Nucleated RBC % (auto) 0.0 Assessment and Plan (1) Small bowel obstruction: Status: Acute Plan 72 year old women admitted with SBO with nausea and vomiting Acute Small bowel obstruction with transition point Hx of previous episodes, resolved with conservative management, this episode likely exacerbated due to narcotic use Nausea ,vomiting resolved s/p Fleet enema 01/02 CT abdomen showed mild to moderate stool in colon, dilated gas and fluid-filled small bowel loops, small bowel collapse, findings consistent with small-bowel obstruction. Seen by General surgery s/p small bowel follow through which showed no obstruction diet advanced but pain returned, will downgrade diet to full liquids and re-advance Hx of palpitations No recurrent symptoms, continue BB COPD /ILD no exacerbation, continue Mucinex and continue albuterol as needed mental health continue home medications Chronic macrocytic anemia with normal B12 and folate in the past. DVT prophylaxis with SCD boots Full code attending - dr. Santos Patient requires continued inpatient hospitalization for treatment of small-bowel obstruction requiring close monitoring, IV pain medication IV fluids Time Spent With Patient Time: Total time managing care of this patient today ____ minutes. Quality Stroke Does the patient have a stroke diagnosis?: No VTE Prior VTE?: No VTE Risk Level:: Medical - moderate - high VTE Device Contraindication: N/A - Device Ordered VTE Drug Contraindication: Treatment Not Indicated
[2023-01-04] MEDS: 0.9 % Sodium Chloride Flush 3 ML SYRINGE IVFLUSH (16:02)
[2023-01-04] MEDS: guaiFENesin DM 200/20/10 ML 10 ML SYRUP PO (16:07)
[2023-01-04] MEDS: Lactated Ringers 1,000 ML 80 ML IVCONT (18:18)
[2023-01-04] MEDS: LORazepam 0.5 MG TABLET PO (20:11)
[2023-01-05] MEDS: HYDROmorphone HCl 0.5 MG/0.5 ML SYRINGE IVPUSH ×3 (01:45→12:37)
[2023-01-05 04:08] VITALS: BP 149/77; PULSE 68; RESP 18; TEMP 36.3; O2SAT 95
[2023-01-05] MEDS: Lactated Ringers 1,000 ML 80 ML IVCONT (05:08)
[2023-01-05 07:53] VITALS: BP 148/74; PULSE 72; RESP 20; TEMP 36.7; O2SAT 96
[2023-01-05 07:58] VITALS: BP 125/61; PULSE 98; RESP 20; TEMP 36.6; O2SAT 94
[2023-01-05] MEDS: Lidocaine 4 % Patch ADH..PATCH 1 PATCH TRANSDERMA (08:08)
[2023-01-05] MEDS: Metoprolol Succinate ER 25 MG TAB.ER.24H PO (08:08)
[2023-01-05] MEDS: Famotidine/PF 20 MG/2 ML VIAL IVPUSH (08:08)
[2023-01-05] MEDS: 0.9 % Sodium Chloride Flush 3 ML SYRINGE IVFLUSH (08:09)
--- NOTE | 2023-01-05 08:14 | PM.PNGS ---
Subjective Subjective Date of Service: 01/05/23 Patient reports: no new complaints, feels better and flatus Interval history: The patient has tolerated her diet and is passing gas but wants to stay in the hospital until she has a bowel movement. She denies any new symptoms, chest pain, difficulty breathing or shortness of breath. Physical Exam Vital Signs: Vital Signs: Last Vital Signs Temp 97.8 F 01/05/23 07:58 Pulse 98 01/05/23 07:58 Resp 20 01/05/23 07:58 BP 125/61 01/05/23 07:58 Pulse Ox 94 01/05/23 07:58 O2 Del Method Room Air 01/05/23 07:58 BMI result Body Mass Index 27.8 Appearing in no acute distress head is normocephalic atraumatic eyes pupils are PERRLA sclera is anicteric mouth throat mucous membranes are intact and moist lung sounds are clear to auscultation heart regular rate rhythm, clear S1, S2 positive bowel sounds, abdomen is soft, nontender neuro patient is alert x3, no focal deficits Objective Data Active Medications Acetaminophen (Acetaminophen 325 Mg Tablet) 650 mg PO Q6H PRN PRN Reason: Pain, Mild (Pain Scale 1-3) Albuterol Sulfate (Albuterol Sulfate 90 Mcg 8 Gm Inhaler) 2 puff INHALE Q6H PRN PRN Reason: for wheezing Last Admin: 01/03/23 20:58 Dose: 2 puff Documented By: TUMAUBREE Docusate Sodium (Docusate Sodium 100 Mg Capsule) 100 mg PO BID [facility] Famotidine (Famotidine/Pf 20 Mg/2 Ml Vial) 20 mg IVPUSH BID [facility] Last Admin: 01/04/23 20:03 Dose: 20 mg Documented By: CROP Guaifenesin/Dextromethorphan (Guaifenesin Dm 200/20/10 Ml 10 Ml Syrup) 10 ml PO Q6H PRN PRN Reason: Cough Last Admin: 01/04/23 16:07 Dose: 10 ml Documented By: COTEMA Hydromorphone HCl (Hydromorphone Hcl 0.5 Mg/0.5 Ml Syringe) 0.5 mg IVPUSH Q4H PRN; Protocol PRN Reason: abdominal pain Last Admin: 01/05/23 01:45 Dose: 0.5 mg Documented By: ABBI Lactated Ringer's (Lr) 1,000 mls @ 80 mls/hr IVCONT .[id number] [facility] Last Admin: 01/05/23 05:08 Dose: 80 mls/hr Documented By: ABBI Lidocaine (Lidocaine 4 % Patch Adh..Patch) 1 patch TRANSDERMA DAILY [facility]; Protocol Last Admin: 01/04/23 08:59 Dose: 1 patch Documented By: COTEMA Lorazepam (Lorazepam 0.5 Mg Tablet) 0.5 mg PO BEDTIME PRN PRN Reason: Anxiety Last Admin: 01/04/23 20:11 Dose: 0.5 mg Documented By: ABBI Metoprolol Succinate (Metoprolol Succinate Er 25 Mg Tab.Er.24h) 25 mg PO DAILY [facility]; Protocol Last Admin: 01/04/23 08:59 Dose: 25 mg Documented By: COTEMA Ondansetron HCl (Ondansetron Hcl 4 Mg/2 Ml Vial) 4 mg IVPUSH Q4H PRN PRN Reason: Nausea and Vomiting Last Admin: 01/04/23 16:02 Dose: 4 mg Documented By: TRICIAEMA Sodium Chloride (0.9 % Sodium Chloride Flush 3 Ml Syringe) 3 ml IVFLUSH QSHIFT [facility] Last Admin: 01/04/23 20:17 Dose: Not Given Documented By: ABBI Non-Admin Reason: IV Running Labs 01/04/23 04:56 01/03/23 10:24 Procedures Date of Service Date of Service: 01/05/23 Progress Note: A&P Assessment and plan (1) Radiation enteritis: Status: Acute (2) Small bowel obstruction: Status: Acute Plan Surgically stable. Given the chronicity of this problem, the patient is unlikely to require surgery. She may have small-bowel radiation enteritis and is advised that this may be a recurring problem a. Okay for discharge surgically. Will sign off. Time Spent With Patient Time: Total time managing care of this patient today ____ minutes. Quality Stroke Does the patient have a stroke diagnosis?: No VTE Prior VTE?: No VTE Risk Level:: Medical - moderate - high VTE Device Contraindication: N/A - Device Ordered VTE Drug Contraindication: Treatment Not Indicated
[2023-01-05] MEDS: Docusate Sodium 100 MG CAPSULE PO (08:36)
--- NOTE | 2023-01-05 08:49 | P.DS_ITS ---
DS: Providers Provider Date of Service: 01/05/23 Date of admission: 01/01/23 07:23 Primary care physician: Anaya Noguera DNP Consults: 01/01/23 07:23 Consult to General Surgery [place]ine [place]ing [place] [facility] Reason for consultation: SBO Consult to General Surgery Stat Consulting Provider[place] [facility] Reason for consultation: sbo Has provider been notified: Yes DS: Diagnosis Discharge Diagnosis (1) Small bowel obstruction: Status: Acute DS: Summary Hospital Course Hospital Course: 72 year old women with hx of multiple episodes of SBO following colon cancer. She reported nausea and vomiting and diffuse abdominal pain. She denied improperly cooked foods, recent travel, sick contacts. no fever or leukocytosis noted, all other labs within normal limits, vital signs stable. Abdominal CT showing SBO with transition point suspected in pelvic with small volume of free fluid in pelvic. She received IV fluids, pain medication and antiemetic in the ED. She will be admitted for further management and treatment of SBO. 72 year old woman treated with acute on chronic small obstruction. History of multiple obstructions in the past. Seen General surgery, initially thought to have obstruction, patient had multiple episodes of vomiting and did not require NG tube. The vomiting did subside. She is passihn flatus and having bowel movements. She was tried on clear liquids, full liquids, regular diet at one point, brought back down to liquids due to continued pain. patient had a small- bowel follow-through which showed no obstruction. Diet was advanced and patient is recommended to stay on a bland diet, drink plenty of fluids. She is doing better today and is agreeable to discharge at this point. History of palpitations. Continue beta-merissa COPD/filed the. No exacerbation or admission. Continue home medications Mental health. Continue home medications History of chronic pelvic pain with history of vaginal cancer and vaginal bleeding. Patient encouraged to follow-up with her secondary education professor for any further workup for this. Patient in agreement. Time Spent with Patient Time attestation: Total time managing care of this patient today ____ minutes. Discharge coordination time: Greater than 30 minutes Quality: Safe Use of Opioids Does Pt have an Active Cancer Diagnosis on the Problem List?: No Quality: Stroke Does the patient have a stroke diagnosis?: No Physical Exam Vital Signs: Vital Signs: Last Vital Signs Temp 97.8 F 01/05/23 07:58 Pulse 98 01/05/23 07:58 Resp 20 01/05/23 07:58 BP 125/61 01/05/23 07:58 Pulse Ox 94 01/05/23 07:58 O2 Del Method Room Air 01/05/23 07:58 BMI result Body Mass Index 27.8 Appearing in no acute distress head is normocephalic atraumatic eyes pupils are PERRLA sclera is anicteric mouth throat mucous membranes are intact and moist lung sounds are clear to auscultation heart regular rate rhythm, clear S1, S2 positive bowel sounds, abdomen is soft, nontender neuro patient is alert x3, no focal deficits Discharge Plan Discharge Anticipated Discharge Date/Time: 01/05/23 08:46 Patient Disposition: Home Health Service Discharge Diagnosis: Small bowel obstruction Referrals: Anaya Noguera DNP [Primary Care Provider] - 1 Week Discharge Medications: Continued metoprolol succinate 25 mg tablet extended release 24 hr 25 mg PO DAILY Qty: 90 3RF multivitamin Tablet 1 tab PO DAILY lorazepam 0.5 mg tablet 0.5 mg PO BEDTIME PRN (Reason: Anxiety) pantoprazole 40 mg tablet,delayed release (DR/EC) 40 mg PO BID albuterol sulfate [Ventolin HFA] 90 mcg/actuation HFA aerosol inhaler 2 puff inhalation Q6H PRN (Reason: for wheezing) docusate sodium [Colace] 100 mg capsule 100 mg PO BID Qty: 60 2RF cholecalciferol (vitamin D3) 125 mcg (5,000 unit) capsule 125 mcg PO DAILY fluticasone furoate-vilanterol [Breo Ellipta] 200-25 mcg/dose blister with device 1 ea inhalation DAILY lidocaine [Lidoderm] 5 % adhesive patch,medicated 1 patch topical DAILY PRN (Reason: Pain) Qty: 30 2RF Rx Instructions: leave on most painful area for up to 12 hours Discharge Orders: Discharge Order (Routine); Ordered 01/05/23 Ordered By: Blanche Madsen Diet: Advance to usual diet Activity on Discharge: As tolerated Stand Alone Forms: Patient Portal Discharge page Care Plan Goals: Eat bland diet, drink plenty of fluids Continue with a good bowel regimen Health Concerns: Small bowel obstruction Plan of Treatment: Follow up up with primary care provider as needed Take all medications as prescribed Assessment: See discharge summary
[2023-01-05] MEDS: ondansetron HCL 4 MG/2 ML VIAL IVPUSH (12:34)
--- NOTE | 2023-01-05 15:16 | W.MHC.F2F ---
Service Date Service Date: 01/05/23 Encounter Date of encounter: 01/05/23 Reasons for Services Signs and symptoms assessed: Small bowel obstruction Reason for long-term: CV/CP assess and/or care Homebound: Leaving the home is medically contraindicated at this time without the asist of a device and/or another person due th the listed conditions above and below. Reason homebound: unsteady gait / fall risk Certification: Based on the above findings, I certify that this patient is confined to the home and needs intermittent long-term care, physical therapy and/or speech therapy, or continues to need occupational therapy. The patient is under my care, and I have initiated the establishment of the plan of care. The patient will be followed by a physician who will periodically review the plan of care. Time Spent With Patient Time: Total time managing care of this patient today ____ minutes.
--- NOTE | 2023-01-07 07:24 | P.CDIM_ITS ---
PROVIDER RESPONSE TEXT: To clarify, the appropriate diagnosis supported by the clinical indicators: Small bowel obstruction: ask surgery QUERY TEXT: PHYSICIAN'S DOCUMENTATION REQUEST Date of Query: 01/02/2023 12:33 PM EDT Patient Name: Erin Mooney Admit Date: 01/01/2023 Dear Meredith Vasquez, A review of the medical record indicates additional documentation may be needed. Please review below and update the documentation accordingly. Clinical Indicators: PN: Acute Small bowel obstruction History or previous episodes, this episode likely exacerbated due to narcotic use. NPO, IV fluid and IV pepcid, resume PPI when obstruction resolves. Based on the above, could you clarify any further specificity to the SBO: Small bowel obstruction complete, incomplete, partial, etc. Other (explain)Clinically unable to determine (explain)Thank you, Meghna Cohn, CCS, CDIS Use of terms such as suspected, likely, concern for, or probable (associated with a specific diagnosi s that is being evaluated, monitored, or treated as if it exists) are acceptable and can be coded in the inpatient se tting, when documented at the time of discharge. Please use your independent medical judgment in providing your response. THIS QUERY IS PART OF THE PERMANENT MEDICAL RECORD
== END 2023-01-05 15:02 | disposition home health service (06) | DRG 389 ==
LOC: HO.ED 07:22 → HO.EDOVER 07:28 → HO.S3 16:28
PROVIDERS: Physician Assistant Medical; Admitting Provider Nurse Practitioner Acute Care; Emergency Provider Internal Medicine; PCP Registered Nurse; Visit Provider Nurse Practitioner Acute Care
DX: K56.609 Unspecified intestinal obstruction, unspecified as to partial versus complete obstruction (principal); K52.0 Gastroenteritis and colitis due to radiation; K62.5 Hemorrhage of anus and rectum; J44.9 Chronic obstructive pulmonary disease, unspecified; N95.0 Postmenopausal bleeding; D53.9 Nutritional anemia, unspecified; K59.03 Drug induced constipation; T40.605A Adverse effect of unspecified narcotics, initial encounter; Z85.038 Personal history of other malignant neoplasm of large intestine; Z85.44 Personal history of malignant neoplasm of other female genital organs; Z79.51 Long term (current) use of inhaled steroids; Z79.899 Other long term (current) drug therapy
CPT/HCPCS: 36415; 74176; 74250; 80048; 81003; 83605; 83690; 85014; 85018; 85025; 85027; 86850; 86870; 86900; 86901; 86920; 86921; 99285; J1170; J2270; J2405

== ENCOUNTER → 2023-01-01 07:23 | Outpatient (BNV) | payer MEDICARE, MEDICAID, SELFPAY | PROVIDERS: Admitting Provider Nurse Practitioner Acute Care; Emergency Provider Internal Medicine; Visit Provider Internal Medicine | DX: K56.609 Unspecified intestinal obstruction, unspecified as to partial versus complete obstruction (principal) | CPT/HCPCS: 99231 ==

== ENCOUNTER → 2023-01-01 07:23 | Outpatient (BNV) | payer MEDICARE, MEDICAID, SELFPAY | PROVIDERS: Admitting Provider Nurse Practitioner Acute Care; Emergency Provider Internal Medicine; PCP Registered Nurse; Visit Provider Hospitalist | DX: K56.609 Unspecified intestinal obstruction, unspecified as to partial versus complete obstruction (principal) | CPT/HCPCS: 99223; 99232; 99233; 99239; G0180 ==

== ENCOUNTER → 2023-01-01 07:23 | Outpatient (BNV) | payer MEDICARE, MEDICAID, SELFPAY | PROVIDERS: Admitting Provider Nurse Practitioner Acute Care; Emergency Provider Internal Medicine; Visit Provider Surgery | DX: K52.0 Gastroenteritis and colitis due to radiation (principal); K56.609 Unspecified intestinal obstruction, unspecified as to partial versus complete obstruction | CPT/HCPCS: 99222; 99231; 99232 ==

== ENCOUNTER 2023-01-23 16:03 | Outpatient (REF) | payer MEDICARE, MEDICAID, SELFPAY ==
--- NOTE | ~2023-01-23 | XR_ITS ---
EXAMINATION: XR SHOULDER, RIGHT CLINICAL INFORMATION: Rheumatoid arthritis. COMPARISON: Radiographs dated 11/19/2018. TECHNIQUE: AP external rotation, Grashey, scapular Y, and axillary views of the right shoulder. FINDINGS: There is bony demineralization. The glenohumeral joint is intact and shows mild osteoarthritic change. There is inferior offset of the acromioclavicular joint by approximately one shaft width, suggesting an old injury. The coracoclavicular interval is widened to 1.7 cm. This appears stable from 11/19/2018. No fracture or dislocation is seen. There is no soft tissue calcification or foreign body. There is cortical irregularity of the greater tuberosity of the proximal right humerus. No right pneumothorax is seen. XR/XR shoulder RT min 2V IMPRESSION: 1. There is mild osteoarthritic change of the right acromioclavicular joint. 2. Findings are consistent with chronic right acromioclavicular and coracoclavicular separation injury. 3. Findings suggest right rotator cuff impingement. EXAMINATION: XR SHOULDER, LEFT CLINICAL INFORMATION: Rheumatoid arthritis. COMPARISON: None available. TECHNIQUE: AP external rotation, Grashey, scapular Y, and axillary views of the left shoulder. FINDINGS: There is bony demineralization. The glenohumeral joint is intact and shows mild osteoarthritic change. The acromioclavicular and coracoclavicular intervals are normal. No fracture or dislocation is seen. There is cortical irregularity of the greater tuberosity of the proximal left humerus. No left pneumothorax is seen. IMPRESSION: 1. There is mild osteoarthritic change of the left acromioclavicular joint. 2. Findings suggest left rotator cuff impingement.
--- NOTE | ~2023-01-23 | XR_ITS ---
EXAMINATION: XR HAND, RIGHT CLINICAL INFORMATION: Rheumatoid arthritis. COMPARISON: None available. TECHNIQUE: PA, lateral, and oblique views of the right hand. FINDINGS: There is generalized bony demineralization. There is a neutral ulnar variance. There is moderate arthritic change of the interphalangeal joint of the thumb and the second proximal interphalangeal joint. There is marked arthritic change of the fifth distal interphalangeal joint, with central erosions. There are arthritic changes of the first, second and fourth metacarpophalangeal joints. There is marked arthritic change of the first carpometacarpal joint. The proximal and distal carpal rows are intact. No fracture or dislocation is seen. There is no focal soft tissue swelling, gas or foreign body. XR/XR hand wrist LT IMPRESSION: There are multi-focal arthritic changes of the right hand and wrist. Central erosions are noted of the right fifth distal interphalangeal joint. No fracture or dislocation is seen. EXAMINATION: XR HAND, LEFT CLINICAL INFORMATION: Rheumatoid arthritis. COMPARISON: None available. TECHNIQUE: PA, lateral, and oblique views of the left hand. FINDINGS: There is bony demineralization. There is a neutral ulnar variance. There is mild arthritic change of the interphalangeal joint of the thumb. There is moderate to marked arthritic change of the second, third and fifth distal interphalangeal joints, with central erosions. There are mild to moderate degenerative changes of the second through fifth proximal interphalangeal joints. Mild degenerative change is seen of the second, fourth and fifth metacarpophalangeal joints. There is marked arthritic change of the first carpometacarpal joint. The proximal and distal carpal rows are intact. No ulnar styloid erosion is seen. No focal soft tissue swelling, gas or foreign body is seen. IMPRESSION: There are multi-focal arthritic changes of the left hand and wrist. Central erosions are noted within the left second, third and fifth distal interphalangeal joints. No fracture or dislocation is seen
--- NOTE | ~2023-01-23 | XR_ITS ---
EXAMINATION: XR HAND, RIGHT CLINICAL INFORMATION: Rheumatoid arthritis. COMPARISON: None available. TECHNIQUE: PA, lateral, and oblique views of the right hand. FINDINGS: There is generalized bony demineralization. There is a neutral ulnar variance. There is moderate arthritic change of the interphalangeal joint of the thumb and the second proximal interphalangeal joint. There is marked arthritic change of the fifth distal interphalangeal joint, with central erosions. There are arthritic changes of the first, second and fourth metacarpophalangeal joints. There is marked arthritic change of the first carpometacarpal joint. The proximal and distal carpal rows are intact. No fracture or dislocation is seen. There is no focal soft tissue swelling, gas or foreign body. XR/XR hand wrist RT IMPRESSION: There are multi-focal arthritic changes of the right hand and wrist. Central erosions are noted of the right fifth distal interphalangeal joint. No fracture or dislocation is seen. EXAMINATION: XR HAND, LEFT CLINICAL INFORMATION: Rheumatoid arthritis. COMPARISON: None available. TECHNIQUE: PA, lateral, and oblique views of the left hand. FINDINGS: There is bony demineralization. There is a neutral ulnar variance. There is mild arthritic change of the interphalangeal joint of the thumb. There is moderate to marked arthritic change of the second, third and fifth distal interphalangeal joints, with central erosions. There are mild to moderate degenerative changes of the second through fifth proximal interphalangeal joints. Mild degenerative change is seen of the second, fourth and fifth metacarpophalangeal joints. There is marked arthritic change of the first carpometacarpal joint. The proximal and distal carpal rows are intact. No ulnar styloid erosion is seen. No focal soft tissue swelling, gas or foreign body is seen. IMPRESSION: There are multi-focal arthritic changes of the left hand and wrist. Central erosions are noted within the left second, third and fifth distal interphalangeal joints. No fracture or dislocation is seen
--- NOTE | ~2023-01-23 | XR_ITS ---
EXAMINATION: XR CHEST CLINICAL INFORMATION: Bronchitis COMPARISON: 09/23/2022 chest radiograph, 01/01/[address] TECHNIQUE: 2 views of the chest were obtained. FINDINGS: Heart and mediastinum within normal limits. Again noted are diffusely increased interstitial markings in a predominantly bronchovascular distribution. Mild increase in markings right mid and lower lung zone on frontal view, overlying the inferior T10 on lateral view. No vascular congestion or effusions. Bony structures are intact. XR/XR chest 2V IMPRESSION: Right lower lobe opacity superimposed on chronic interstitial disease. Acute on chronic process/pneumonia questioned. Short-term radiographic follow-up recommended.
--- NOTE | ~2023-01-23 | XR_ITS ---
EXAMINATION: XR CERVICAL SPINE CLINICAL INFORMATION: Anesthesia of skin. COMPARISON: None available. TECHNIQUE: Frontal, odontoid and lateral views of the cervical spine were obtained. FINDINGS: There is bony demineralization. There is moderate to marked degenerative disc disease, spondylosis and facet arthropathy extending from C2-C3 through C7-T1. No acute fracture or spondylolisthesis is seen. The dens is intact. No prevertebral soft tissue swelling is seen. XR/XR cervical spine 2V IMPRESSION: There is moderately severe degenerative disc disease, spondylosis and facet arthropathy extending from C2-C3 through C7-T1.
--- NOTE | ~2023-01-23 | XR_ITS ---
EXAMINATION: XR SHOULDER, RIGHT CLINICAL INFORMATION: Rheumatoid arthritis. COMPARISON: Radiographs dated 11/19/2018. TECHNIQUE: AP external rotation, Grashey, scapular Y, and axillary views of the right shoulder. FINDINGS: There is bony demineralization. The glenohumeral joint is intact and shows mild osteoarthritic change. There is inferior offset of the acromioclavicular joint by approximately one shaft width, suggesting an old injury. The coracoclavicular interval is widened to 1.7 cm. This appears stable from 11/19/2018. No fracture or dislocation is seen. There is no soft tissue calcification or foreign body. There is cortical irregularity of the greater tuberosity of the proximal right humerus. No right pneumothorax is seen. XR/XR shoulder LT min 2V IMPRESSION: 1. There is mild osteoarthritic change of the right acromioclavicular joint. 2. Findings are consistent with chronic right acromioclavicular and coracoclavicular separation injury. 3. Findings suggest right rotator cuff impingement. EXAMINATION: XR SHOULDER, LEFT CLINICAL INFORMATION: Rheumatoid arthritis. COMPARISON: None available. TECHNIQUE: AP external rotation, Grashey, scapular Y, and axillary views of the left shoulder. FINDINGS: There is bony demineralization. The glenohumeral joint is intact and shows mild osteoarthritic change. The acromioclavicular and coracoclavicular intervals are normal. No fracture or dislocation is seen. There is cortical irregularity of the greater tuberosity of the proximal left humerus. No left pneumothorax is seen. IMPRESSION: 1. There is mild osteoarthritic change of the left acromioclavicular joint. 2. Findings suggest left rotator cuff impingement.
[2023-01-23 16:30] LABS: MANUAL DIFF FLAG NO
[2023-01-23 16:45] LABS: Basophils Percent Auto 0.2 % (0-2); Eosinophils Absolute Auto 0.1 X10*3/uL (0.0-0.4); Eosinophils Percent Auto 2.5 % (0-4); Hemoglobin 10.6 g/dl (12.0-16.0); Imm Gran Abs Auto 0.01 X10*3/uL (0.00-0.03); Imm Gran Pct Auto 0.2 % (0.0-0.4); Lymphocytes Absolute Auto 1.5 X10*3/uL (1.2-4.9); Lymphocytes Percent Auto 31.1 % (20-40); Mean Corpuscular HGB Conc 32.1 g/dl (31.0-35.0); Mean Corpuscular Hemoglobin 32.3 pg (27.0-33.0); Mean Corpuscular Volume 100.6 fL (80.0-98.0); Mean Platelet Volume 9.5 fL (9.4-12.3); Monocytes Absolute Auto 0.3 X10*3/uL (0.1-1.2); Monocytes Percent Auto 6.7 % (2-11); Neutrophils Absolute Auto 2.8 x10*3/uL (2.0-8.3); Neutrophils Percent Auto 59.3 % (45-73); Platelet Count 180 X10*3/uL (160-400); Red Blood Count 3.28 X10*6/uL (4.20-5.50); Red Cell Distribution Width 13.3 % (11.0-16.0); White Blood Count 4.8 X10*3/uL (4.8-10.8)
[2023-01-23 17:09] LABS: Alanine Aminotransferase 70 U/L (0-31); Albumin Level 3.6 g/dL (3.5-5.0); Alkaline Phosphatase 156 U/L (39-117); Anion Gap 10 (12-20); Aspartate Amino Transferase 78 U/L (5-31); Bilirubin Total 0.3 mg/dL (0.0-1.0); Blood Urea Nitrogen 19 mg/dL (9-16); C Reactive Protein 0.46 mg/dL (< or = 0.50); Calcium 9.1 mg/dL (8.4-10.2); Carbon Dioxide 25 mmol/L (22-29); Chloride 108 mmol/L (96-108); Estimated Glomerular Filt Rate > 60; Glucose Random 115 mg/dL (60-115); Potassium 4.1 mmol/L (3.3-5.1); Sodium 139 mmol/L (135-145); Total Protein 8.3 g/dL (6.5-8.0)
[2023-01-23 17:27] LABS: Erythrocyte Sedimentation Rate 88 MM/HR (0-20)
[2023-01-23 17:48] LABS: Appearance Urine Clear; Color Urine Yellow; Glucose Urine UA Negative (Negative); Leukocyte Esterase Urine Negative (Negative); Nitrite Urine Negative (Negative); Specific Gravity - Urine 1.015 (1.005-1.025); Urine Blood Negative (Negative); Urine Ketones Negative (Negative); Urine Protein Negative (Neg-Trace)
[2023-01-23 18:02] LABS: Creatinine Urine 64.61 mg/dL; Total Protein Urine Random < 7 mg/dL (<12)
[2023-01-24 08:33] LABS: HBS Num1 0.24 mIU/mL (0-7.99); HBc Num1 0.11 S/CO (0.00-0.79); HBsAGNum1 0.34 S/CO (0.00-0.99); Hepatitis A Antibody IgM 0.48 Index (0-0.79); Hepatitis B Core Antibody Nonreactive (Nonreactive); Hepatitis B Surface Antigen Negative (Negative); ~HepC Num1 0.14 S/CO (0.00-0.79); ~Hepatitis A Antibody IgM Nonreactive (Nonreactive); ~Hepatitis B Surface Antibody NONREACTIVE (Nonreactive); ~Hepatitis C Antibody Nonreactive (Nonreactive)
[2023-01-25 13:08] LABS: Complement C3 131 mg/dL (83-193); Cyclic Citrullinated Peptide <16 UNITS
[2023-01-25 20:28] LABS: Anti DNA DS Antibody 1 IU/mL; Antibody to SS-A Antigen >8.0 POS AI (<1.0 NEG); Antibody to SS-B Antigen >8.0 POS AI (<1.0 NEG); SM/Ribonucleoprotein Ab <1.0 NEG AI (<1.0 NEG); Smith Protein <1.0 NEG AI (<1.0 NEG)
[2023-01-26 00:54] LABS: TS Negative Control Passed; TS Panel A 0; TS Panel B 0; TS Positive Control Passed; TSpotTB Negative (Negative)
[2023-01-27 05:03] LABS: PTT (LAC) Screen 34 sec (<=40)
[2023-01-28 12:04] LABS: IgA 677 mg/dL (70-320); IgG 1966 mg/dL (600-1540); IgM 178 mg/dL (50-300)
[2023-01-28 18:23] LABS: Prot Elec - Albumin 3.6 g/dL (3.8-4.8); Prot Elec - Alpha1 0.3 g/dL (0.2-0.3); Prot Elec - Alpha2 0.9 g/dL (0.5-0.9); Prot Elec - Beta 1 0.5 g/dL (0.4-0.6); Prot Elec - Beta 2 0.6 g/dL (0.2-0.5); Prot Elec - Gamma 1.9 g/dL (0.8-1.7); Prot Elec - Total Protein 7.8 g/dL (6.1-8.1)
[2023-01-29 07:48] LABS: Cardiolipin IgG Ab <2.0 GPL-U/mL; Cardiolipin IgM Ab <2.0 MPL-U/mL
[2023-01-30 05:59] LABS: Beta-2 Glycoprotein IgA 2.5 U/mL (<20.0); Beta-2 Glycoprotein IgG <2.0 U/mL (<20.0); Beta-2 Glycoprotein IgM <2.0 U/mL (<20.0)
[2023-02-01 16:38] LABS: Centromere Protein A Ab <11 SI (<11); Centromere Protein B Ab <11 SI (<11); Fibrillarin Ab <11 SI (<11); PM SCL 100 Ab <11 SI (<11); PM SCL 75 Ab <11 SI (<11); RNA Polymerase III RP11 Ab <11 SI (<11); RNA Polymerase III RP155 Ab <11 SI (<11); SCL-70 Extractable Nuclear Ab <11 SI (<11); Th-To Ab <11 SI (<11); U1 SNRNP RNP 70KD <11 SI (<11); U1 SNRNP RNP A <11 SI (<11); U1 SNRNP RNP C <11 SI (<11)
[2023-02-05 19:02] LABS: Cytosolic 5'nuc 1A Ab IgG <5 Units; Ej Ab <11 SI (<11); HMGCR Ab IgG <2 CU (<20); Jo-1 Ab <11 SI (<11); MDA5 Ab <11 SI (<11); Mi-2 alpha Ab <11 SI (<11); Mi-2 beta Ab <11 SI (<11); NXP-2 (MJ) Ab <11 SI (<11); Oj Ab <11 SI (<11); Pl-12 Ab <11 SI (<11); Pl-7 Ab <11 SI (<11); SRP Ab <11 SI (<11); TIF1 gamma Ab <11 SI (<11)
== END 2023-01-23 16:04 | disposition home or self-care (01) ==
LOC: HO.LAB 16:03
PROVIDERS: Nurse Practitioner; Visit Provider Student in an Organized Health Care Education/Training Program
DX: R20.0 Anesthesia of skin (principal); M06.9 Rheumatoid arthritis, unspecified; J40 Bronchitis, not specified as acute or chronic; J84.9 Interstitial pulmonary disease, unspecified; J47.9 Bronchiectasis, uncomplicated; M32.9 Systemic lupus erythematosus, unspecified; M34.9 Systemic sclerosis, unspecified; D68.61 Antiphospholipid syndrome; Z11.59 Encounter for screening for other viral diseases; Z11.7 Encounter for testing for latent tuberculosis infection; Z72.89 Other problems related to lifestyle
CPT/HCPCS: 36415; 71046; 72040; 73030; 73110; 73130; 80053; 81003; 82570; 82784; 83516; 83520; 84156; 84165; 84182; 85025; 85597; 85598; 85613; 85652; 85730; 86140; 86146; 86147; 86160; 86200; 86225; 86235; 86334; 86481; 86704; 86706; 86709; 86803; 87340

== ENCOUNTER → 2023-03-22 16:01 | Outpatient (BNVA) | payer MEDICARE, MEDICAID, SELFPAY | PROVIDERS: PCP Registered Nurse; Visit Provider Nurse Practitioner | DX: K90.89 Other intestinal malabsorption (principal); R79.89 Other specified abnormal findings of blood chemistry; K21.00 Gastro-esophageal reflux disease with esophagitis, without bleeding; K62.7 Radiation proctitis; Z87.19 Personal history of other diseases of the digestive system | CPT/HCPCS: 99212 ==

== ENCOUNTER 2023-04-01 15:51 | Outpatient (AMB) | payer MEDICARE, MEDICAID, SELFPAY ==
--- NOTE | 2023-04-01 15:55 | A.OFFVIS_ITS ---
Intake Vital Signs 04/01/23 15:56 Height 5 ft 2 in Weight 147 lb 0.7 oz BMI 26.9 BP 102/68 Blood Pressure Location Lt brachial Position Sitting Pulse 66 Pulse Source Pulse Oximeter Pulse Oximetry (%) 98 Oxygen Delivery Method Room Air Intake Visit Reasons: copd Intake Note: pt is here for follow up and states her breathing seems to be little better, she gets a lot of mucous in am, but lemon water helps. 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 Is coming for her routine. Follow-up after more than 6 months She has intermittent cough with some mucus. She has been using Symbicort as well as the Ventolin p.r.n., also has nebulizer uses albuterol solution only once or twice a week. Luckily she has had no recent respiratory infection. She loves to use natural remedies. 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 She is nonsmoker. [facility] Medical History (Updated 04/01/23 @ 16:19 by Vane Loja MD) COPD (chronic obstructive pulmonary disease) Radiation proctitis Radiation enteritis Postmenopausal bleeding History of colon cancer SBO (small bowel obstruction) Rectal bleeding Bronchitis Post covid-19 condition, unspecified Sinusitis Interstitial lung disease Asthma Bronchiectasis Shoulder pain, bilateral Vertigo Dysuria Seasonal allergies Hyperglycemia Palpitation Hemochromatosis Tubular adenoma Colon cancer Vaginal cancer Surgical History History of cholecystectomy History of esophagogastroduodenoscopy (EGD) H/O colonoscopy H/O colectomy Family History Father Dementia GSW (gunshot wound) CAD (coronary artery disease) Mother GSW (gunshot wound) Family/Other Diabetes mellitus Brother CAD (coronary artery disease) Sister Multiple sclerosis Sister Rheumatoid arthritis Sister Rheumatoid arthritis Social History Household Members: None Household Members Other:: aunt a 96 years old Housing: House Do you presently have visiting nurse or other home services: No Alcohol intake: never Patient Tobacco Use Status: Never used Tobacco e-Cigarette/Vaping Use: Never Used Second Hand Smoke Exposure: No Advance Directives Date on File: 04/09/22 service: No Current occupational status: unemployed Sexual orientation: Straight/Heterosexual Gender identity: Female Review of Systems Const All systems reviewed & are unremarkable except as noted in HPI and below Eyes Reports no additional complaints ENT Reports nasal congestion (Mild intermittent) Card Denies chest pain, Denies irregular heart rhythm and Denies leg edema Resp Reports as per HPI GI Reports no additional complaints Reports no additional complaints Musc Reports no additional complaints Skin/Breast Reports system reviewed and no additional complaints, except as documented Neuro Reports no additional complaints Psych Reports no additional complaints Endo Reports no additional complaints Physical Exam Const General: comfortable, no acute distress, alert and awake Orientation/consciousness: patient oriented x3 HEENT Head: Yes normal to inspection General nose exam: No nasal polyps present and Other nasal findings present (MODERATE NASAL CONGESTION, SHE HAS COPIOUS POSTERIOR PHARYNGEAL MUCOUS) Face and sinus: Yes sinuses nontender Mouth: oropharynx normal Throat: No posterior oropharynx normal (HAS LOT OF MUCUS IN THE POSTERIOR PHARYNX.) Eyes General: appearance normal, both eyes and all related structures Neck Neck: Yes normal visual inspection, Yes no lymphadenopathy, Yes trachea midline and Yes no JVD Thyroid: Thyroid normal Chest Chest palpation & inspection: normal inspection of the chest, normal palpation of entire chest wall and no tenderness Resp Other: Percussion note resonant, breath sounds are slightly distant. No wheezes but she does have inspiratory crackles over the lower lobesON BOTH SIDES . Cardio Palpation: normal PMI Rate: regular rate Rhythm: regular rhythm Heart sounds: no gallops and no murmurs Peripheral pulses: Peripheral pulses 2+ throughout GI Palpation (GI): Soft to palpation, nontender, No hepatosplenomegaly present and no masses Auscultation: normal bowel sounds Back/Spine/Pelvis Thoracic/Lumbar Spine: thoracic and lumbar spine normal to inspection Skin General skin exam: no rashes or lesions noted Neuro General: patient oriented x3 and no focal motor deficits Cranial nerves: Yes CN's II-XII intact bilaterally Extrem General: Yes normal to inspection, Yes no clubbing, cyanosis or edema and Yes no calf tenderness Psych Speech and movement: Normal speech and movement present Assessment & Plan Assessment & Plan (1) Bronchiectasis: Comment: She has traction bronchiectasis in the lower lobes secondary to chronic fibrotic changes . Code(s): J47.9 - Bronchiectasis, uncomplicated Plan: Advised to use steam inhalation p.r.n. for mucus. During plenty of fluids. (2) Interstitial lung disease: Comment: Her previous chest x-ray and CT scan have shown evidence of INTERSTITIAL LUNG DISEASE WITH TRACTION BRONCHIECTASIS Code(s): J84.9 - Interstitial pulmonary disease, unspecified Plan: It is mild and relatively stable and does not need any active treatment at this time. (3) Cough: Comment: She has chronic cough secondary to interstitial lung disease/bronchiectasis. It is relatively controlled at this time. Code(s): R05.9 - Cough, unspecified Plan: OTC cough medicine p.r.n. (4) COPD (chronic obstructive pulmonary disease): Comment: Patient does have mild to moderate chronic obstructive pulmonary disease., is relatively stable except for symptoms of cough and mucus production. Code(s): J44.9 - Chronic obstructive pulmonary disease, unspecified Plan: [place]: Breo 200-251 inhalation daily Ventolin 2 puffs Q 4-6 hours p.r.n. Medications: New fluticasone furoate-vilanterol 200-25 mcg/dose (Breo Ellipta) 1 inh inhalation DAILY 60 ea 5RF copd 30 days albuterol sulfate 90 mcg/actuation (Ventolin HFA) 2 puffs inhalation Q4-6H PRN 8.5 grams 5RF shortness of breath or wheezing 30 days Coding Level of Care Code Est Pt Level 3 (61699) Diagnoses Bronchiectasis J47.9 Interstitial lung disease J84.9 Cough R05.9 COPD (chronic obstructive pulmonary disease) J44.9
[2023-04-01 15:56] VITALS: BP 102/68; PULSE 66; O2SAT 98; BMI 26.9
== END 2023-04-01 16:13 | disposition home or self-care (01) ==
PROVIDERS: PCP Registered Nurse; Visit Provider Internal Medicine
DX: J47.9 Bronchiectasis, uncomplicated (principal); J84.9 Interstitial pulmonary disease, unspecified; R05.9 Cough, unspecified; J44.9 Chronic obstructive pulmonary disease, unspecified
CPT/HCPCS: 99213

== ENCOUNTER → 2023-04-01 15:51 | Outpatient (BNVA) | payer MEDICARE, MEDICAID, SELFPAY | PROVIDERS: PCP Registered Nurse; Visit Provider Internal Medicine | DX: J47.9 Bronchiectasis, uncomplicated (principal); J44.9 Chronic obstructive pulmonary disease, unspecified; J84.9 Interstitial pulmonary disease, unspecified; R05.9 Cough, unspecified | CPT/HCPCS: 99212 ==

== ENCOUNTER 2023-05-21 13:37 | Outpatient (AMB) | payer MEDICARE, MEDICAID, SELFPAY ==
[2023-05-21 13:52] VITALS: BP 108/62; PULSE 79; O2SAT 96; BMI 27.9
--- NOTE | 2023-05-21 13:52 | A.OFFVIS_ITS ---
Intake Vital Signs 05/21/23 13:52 Height 5 ft 2 in Weight 152 lb 12.485 oz BMI 27.9 BP 108/62 Blood Pressure Location Lt brachial Position Sitting Pulse 79 Pulse Source Pulse Oximeter Pulse Oximetry (%) 96 Oxygen Delivery Method Room Air Intake Visit Reasons: SVETLANA + Intake Note: Patient last seen 10/24/22 presents today for follow up. Might need shoulder replacement with NEOS. Using castor oil and it helps. 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 Accompanied by: Self / Same As Patient Allergies ciprofloxacin [From Cipro] Adverse Reaction (Intermediate, Verified 05/21/23 13:56) Facial redness, lip swelling Medication List - Last Reconciled 05/21/23 by Jackson Perea MD albuterol sulfate 90 mcg/actuation (Ventolin HFA) 2 puffs inhalation Q4-6H PRN 30 days albuterol sulfate 90 mcg/actuation (Ventolin HFA) 2 puffs inhalation Q6H PRN cholecalciferol (vitamin D3) 125 mcg PO DAILY docusate sodium (Colace) 100 mg PO BID fluticasone furoate-vilanterol 200-25 mcg/dose (Breo Ellipta) 1 ea inhalation DAILY fluticasone furoate-vilanterol 200-25 mcg/dose (Breo Ellipta) 1 inh inhalation DAILY 30 days lidocaine 5% (Lidoderm) 1 patch topical DAILY PRN lorazepam 0.5 mg PO BEDTIME PRN metoprolol succinate ER 25 mg PO DAILY multivitamin 1 tab PO DAILY pantoprazole 40 mg PO BID HPI HPI Comments History of Present Illness Details Patient returns for follow-up after completion of her diagnostic workup. She states that she was recently evaluated by Orthopedics for her right shoulder osteoarthritis. Patient refused steroid injections. Shoulder replacement was discussed. She states that she has been using plenty of castor oil and it seems to be helpful. She applies it on her shoulder and her fingers and they helped. She states that her breathing is better overall. She has been using natural remedies. She uses turmeric. She denies any skin rashes. She denies any fevers. Initial history: This is a 72-year-old female with complex past medical history presents as a new patient. She was referred for positive SVETLANA and positive rheumatoid factor. Patient has a history of hemochromatosis, COPD, IL D, there was some suspicion of autoimmune hepatitis. Patient states that she has history of colon cancer and vaginal cancer and had radiation many years ago. States that she gets intermittent vaginal spotting, states that her the spotting has become a little bit worse recently and she feels a little dizzy today. Patient states that she has had diffuse pain for many years, affecting multiple areas including her hands, arms, hips, knees, back, feet. She has generalized morning stiffness that lasts 15-30 minutes. 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 She was told she has bilateral rotator cuff tendinopathy and surgery was suggested but that orthopedi c surgeon had left the practice, she was evaluated by another orthopedic surgeon 5 years ago and was told that she was not a good surgical candidate due to her age. States that she has 2 sisters with rheumatoid arthritis [facility] Medical History COPD (chronic obstructive pulmonary disease) Radiation proctitis Radiation enteritis Postmenopausal bleeding History of colon cancer SBO (small bowel obstruction) Rectal bleeding Bronchitis Post covid-19 condition, unspecified Sinusitis Interstitial lung disease Asthma Bronchiectasis Shoulder pain, bilateral Vertigo Dysuria Seasonal allergies Hyperglycemia Palpitation Hemochromatosis Tubular adenoma Colon cancer Vaginal cancer Surgical History History of cholecystectomy History of esophagogastroduodenoscopy (EGD) H/O colonoscopy H/O colectomy Family History Father Dementia GSW (gunshot wound) CAD (coronary artery disease) Mother GSW (gunshot wound) Family/Other Diabetes mellitus Brother CAD (coronary artery disease) Sister Multiple sclerosis Sister Rheumatoid arthritis Sister Rheumatoid arthritis Social History Household Members: None Household Members Other:: aunt a 96 years old Housing: House Do you presently have visiting nurse or other home services: No Alcohol intake: never Patient Tobacco Use Status: Never used Tobacco e-Cigarette/Vaping Use: Never Used Second Hand Smoke Exposure: No Advance Directives Date on File: 04/09/22 service: No Current occupational status: unemployed Sexual orientation: Straight/Heterosexual Gender identity: Female Review of Systems Card Denies dyspnea on exertion Resp Denies cough and Denies dyspnea on exertion Musc Reports arthralgias and Reports stiffness Skin/Breast Denies rash Physical Exam Vital Signs: Last Vital Signs Pulse 79 05/21/23 13:52 BP 108/62 05/21/23 13:52 Pulse Ox 96 05/21/23 13:52 Oxygen Delivery Method Room Air 05/21/23 13:52 BMI result Body Mass Index 27.9 Const General: cooperative, healthy appearing and comfortable Nutritional Appearance: overweight Orientation/consciousness: patient oriented x3 Limitations: no limitations HEENT Head: Yes normocephalic and Yes atraumatic Mouth: moist mucous membranes Resp Effort & Inspection: normal respiratory effort and able to speak in complete sentences Auscultation: crackles bilateral at the base Neuro General: patient oriented x3 Extrem Other: Bilateral osteoarthritic changes of both hands with prominent Heberden's, Lizeth's nodes and squaring of 1st CMC joint Bilateral 1st CMC joint tenderness Significantly limited abduction of both shoulders Assessment & Plan Assessment & Plan (1) SVETLANA positive: Code(s): R76.8 - Other specified abnormal immunological findings in serum Plan: This is a 73-year-old female with complex past medical history including heterozygosity for H63D mutation for hemochromatosis, bronchiectasis/COPD/ILD who presents a for follow-up after completion of her diagnostic workup. She was initially referred for a positive SVETLANA and positive rheumatoid factor. Labs showed positive anti SSA and anti SSB in high titers. There is no active synovitis on exam, no skin rashes, no sicca symptoms. No symptoms suggestive of SLE. Her serology is consistent with Sjogren's, but she does not have the classic sicca symptoms. She has known bronchiectasis is with ILD. The ILD was suspected to be related to radiation exposure. At this point, she might have ILD related to Sjogren's. Patient denies any new or worsening cough or shortness of breath. Will continue to monitor patient clinically. Repeat PFTs periodically. If there is significant worsening, immune suppression can be discussed. Follow-up in 6 months Plan I spent 25 minutes reviewing patient's chart, evaluating patient, placing orders, counseling patient and documenting in the chart Coding Level of Care Code Est Pt Level 4 (56011) Diagnoses SVETLANA positive R76.8
== END 2023-05-21 14:20 | disposition home or self-care (01) ==
LOC: HO.RHE 13:38
PROVIDERS: PCP Registered Nurse; Visit Provider Student in an Organized Health Care Education/Training Program
DX: R76.8 Other specified abnormal immunological findings in serum (principal)
CPT/HCPCS: 99214

== ENCOUNTER → 2023-05-21 13:37 | Outpatient (BNVA) | payer MEDICARE, MEDICAID, SELFPAY | PROVIDERS: PCP Registered Nurse; Visit Provider Student in an Organized Health Care Education/Training Program | DX: R76.8 Other specified abnormal immunological findings in serum (principal) | CPT/HCPCS: 99212 ==

== ENCOUNTER 2023-08-27 14:24 | Outpatient (AMB) | payer MEDICARE, MEDICAID, SELFPAY ==
--- NOTE | 2023-08-27 14:33 | MHC.OFFVIS ---
Vital Signs 08/27/23 14:36 Height 5 ft 2 in Weight 148 lb BMI 27.1 BP 114/65 Blood Pressure Location Lt brachial Position Sitting Pulse 65 Intake Visit Reasons: pt req appointment Intake Note: Patient req appt for today. Patient req Colonoscopy/EGD screening. Patient cc: body aches, N/V, dizziness, loosing weight, rectal bleeding and difficulty swallowing with abdominal pain. Logistician Required: No Accompanied by: Self / Same As Patient Allergies ciprofloxacin [From Cipro] Adverse Reaction (Intermediate, Verified 08/27/23 14:33) Facial redness, lip swelling HPI HPI pt req appointment: Details: Assessment & Plan (1) Diarrhea: Code(s): R19.7 - Diarrhea, unspecified (2) Elevated LFTs: Code(s): R79.89 - Other specified abnormal findings of blood chemistry (3) Bile salt-induced diarrhea: Code(s): K90.89 - Other intestinal malabsorption (4) GERD with esophagitis: Code(s): K21.00 - Gastro-esophageal reflux disease with esophagitis, without bleeding (5) History of small bowel obstruction: Code(s): Z87.19 - Personal history of other diseases of the digestive system (6) Radiation proctitis: Code(s): K62.7 - Radiation proctitis Plan She says I have had 2 more bowel obstructions since I last saw you. She has been rubbing castor oil on her stomach to cure my IBS. She feels this has helped. She is no longer on carafate, which is appropriate. She is only on protonix bid now and she says she is trying to use natural medications/traatments instead so she is not taking this consistently. 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 She is not inclined to have injection therapy. ROV 6 mos. Medications: New pantoprazole 40 mg PO BID 60 tabs 6RF CORRESPONDENCE On 08/22/23 @ 15:37 Luciana Mcgee Wrote To Patient called said her oncologist told her to call you that she needs and urgent referral from you to get a colonoscopy done gogo from Dr. Mejia in [place]. Would like you to call her. On 08/22/23 @ 11:43 Lelo Tabor Wrote To Lelo Tabor (2) Sure, tell her I am ordering an abdominal x-ray just to rule out obstruction and have her come do that gogo. On 08/22/23 @ 11:23 Geovanna Mcmanus Wrote To Lelo Tabor patient called and stated that she had an appointment with you on 09/19 but now it is cancelled and she is asking to see you sooner because she is vomiting a lot and also has rectal bleeding and she is very worried about this. can I find a place for her within the next couple of weeks? please advise TODAY'S VISIT She lost her PCP because [facility], she [facility] a [facility] but can 't get in for months. She is having rectal bleeding again. But she does not want any procedure via our service, she wants a referral to Dr. Mejia - which I can't provide as we are the same specialty. I encouraged her to call some of the provider she is currently seeing such as her glass beveler her oncologist. She is also c/o N/V and bone pain over the whole body. She has pain in the abd that seems to follow the left colon path. ROV prn. PFSH Medical History (Updated 08/27/23 @ 14:38 by SAM Ceja) Shoulder pain, bilateral UTI (urinary tract infection) Interstitial lung disease Arthralgia Dizziness Dysuria Acute sinusitis Abdominal pain Periumbilical abdominal pain Flank pain Left flank pain Annual physical exam IBS (irritable bowel syndrome) Gastritis Cough Bronchiectasis Fatigue Scabies Post covid-19 condition, unspecified Elevated LFTs Diarrhea Sinusitis Bronchitis Well woman exam COPD (chronic obstructive pulmonary disease) Radiation proctitis Radiation enteritis Postmenopausal bleeding History of colon cancer SBO (small bowel obstruction) Rectal bleeding Asthma Vertigo Seasonal allergies Hyperglycemia Palpitation Hemochromatosis Tubular adenoma Colon cancer Vaginal cancer Surgical History (Updated 08/27/23 @ 14:38 by SAM Ceja) History of cholecystectomy History of esophagogastroduodenoscopy (EGD) H/O colonoscopy H/O colectomy Family History Father Dementia GSW (gunshot wound) CAD (coronary artery disease) Mother GSW (gunshot wound) Family/Other Diabetes mellitus Brother CAD (coronary artery disease) Sister Multiple sclerosis Sister Rheumatoid arthritis Sister Rheumatoid arthritis Social History Household Members: None Household Members Other:: aunt a 96 years old Housing: House Do you presently have visiting nurse or other home services: No Alcohol intake: never Patient Tobacco Use Status: Never used Tobacco e-Cigarette/Vaping Use: Never Used Second Hand Smoke Exposure: No Advance Directives Date on File: 04/09/22 service: No Current occupational status: unemployed Sexual orientation: Straight/Heterosexual Gender identity: Female Review of Systems Const Denies fatigue, Denies fever(s), Denies night sweats, Denies poor appetite and Denies weight loss ENT Reports Normal hearing present, Denies dental pain, Denies dysphagia, Denies hearing loss, Denies mouth pain, Reports neck pain, Denies odynophagia, Denies throat swelling, Denies tongue swelling and Reports other (Dentition adequate) Card Reports no additional complaints and Reports dyspnea Resp Reports dyspnea and Reports wheezing GI Details: Reports abdominal pain, Denies melena, Denies bloating, Reports hematochezia, Denies constipation, Denies GI cramping, Denies dysphagia, Denies excessive flatus, Denies early satiety, Reports heartburn, Reports diarrhea, Reports nausea, Denies odynophagia, Reports vomiting and Denies hematemesis Musc Reports abnormal gait, Reports back pain, Reports myalgias, Reports arthralgias, Reports neck pain and Reports stiffness Skin/Breast Denies pruritus, Denies lesions, Denies rash and Denies jaundice Neuro Reports Normal hearing present, Denies Abnormal speech present and Reports abnormal gait Psych Reports anxiety Endo Denies fatigue Aller/Immun Reports seasonal rhinorrhea, Denies throat swelling, Denies tongue swelling and Reports wheezing Physical Exam Vital Signs: Last Vital Signs Pulse 65 08/27/23 14:36 BP 114/65 08/27/23 14:36 BMI result Body Mass Index 27.1 Const General: cooperative, no acute distress, well developed and well groomed Nutritional Appearance: average body habitus and well nourished Orientation/consciousness: oriented to person, oriented to place and oriented to time Limitations: No language barrier HEENT Head: Yes normocephalic and Yes atraumatic Eyes General: appearance normal, both eyes and all related structures Pupils: Equal, round and reactive pupils present Neck Neck: Yes normal visual inspection and Yes no lymphadenopathy Thyroid: Thyroid normal Resp Effort & Inspection: normal respiratory effort and able to speak in complete sentences GI Inspection: No distended and No Abdominal panniculus present Palpation (GI): Soft to palpation, Tenderness to palpation present (GI) in the LLQ and in the LUQ, no guarding, not rigid and No hepatosplenomegaly present Percussion: Yes normal to percussion Auscultation: normal bowel sounds Rectal Exam - Female: deferred Skin General skin exam: no rashes or lesions noted, turgor normal, skin not dry, no jaundice, No spider nevi and no striae Rashes: no rashes Nails: normal Neuro General: oriented to person, oriented to place and oriented to time Cranial nerves: Yes Equal, round and reactive pupils present and Yes Normal hearing present Speech: No Abnormal speech present Extrem General: Yes normal to inspection, No clubbing, No cyanosis and No edema Psych Appearance: grossly normal and well kempt Mental Status: mental status grossly normal Speech and movement: Pressured speech present Affect: Labile affect present Attitude: cooperative Thought process: Circumstantial thought process present, not confabulating and Perseverating thought process present Thought content: Normal thought content present Insight: Limited insight present (Psych) and Poor insight present (Psych) Judgement: Limited judgement present (Psych) and Poor judgement present (Psych) Assessment & Plan Assessment & Plan (1) Tubular adenoma of colon: Comment: 2021 scope= 4 TA is repeat in 3 years Code(s): D12.6 - Benign neoplasm of colon, unspecified Category: Medical (2) H/O colonoscopy: Comment: 2021, Elvin=4 TA's repeat 3 years, Dr. Mejia 09/2018 polyps, 07/04/2020 [facility] polyp Code(s): Z98.890 - Other specified postprocedural states Category: Surgical (3) Bile salt-induced diarrhea: Code(s): K90.89 - Other intestinal malabsorption Category: Medical (4) GERD with esophagitis: Code(s): K21.00 - Gastro-esophageal reflux disease with esophagitis, without bleeding Category: Medical (5) History of small bowel obstruction: Code(s): Z87.19 - Personal history of other diseases of the digestive system Category: Medical (6) Radiation proctitis: Code(s): K62.7 - Radiation proctitis Category: Medical (7) COPD (chronic obstructive pulmonary disease): Comment: Patient does have mild to moderate chronic obstructive pulmonary disease., is relatively stable except for symptoms of cough and mucus production. Code(s): J44.9 - Chronic obstructive pulmonary disease, unspecified Category: Medical Plan She [facility], [facility] but can 't get in for months. She is having rectal bleeding again. But she does not want any procedure via our service, she wants a referral to Dr. Mejia - which I can't provide as we are the same specialty. I encouraged her to call some of the provider she is currently seeing such as her glass beveler her oncologist. She is also c/o N/V and bone pain over the whole body. She has pain in the abd that seems to follow the left colon path. ROV prn. Coding Level of Care Code Est Pt Level 3 (37064) Diagnoses Tubular adenoma of colon D12.6 H/O colonoscopy Z98.890 Bile salt-induced diarrhea K90.89 GERD with esophagitis K21.00 History of small bowel obstruction Z87.19 Radiation proctitis K62.7 COPD (chronic obstructive pulmonary disease) J44.9
[2023-08-27 14:36] VITALS: BP 114/65; PULSE 65; BMI 27.1
== END 2023-08-27 15:11 | disposition home or self-care (01) ==
PROVIDERS: PCP Registered Nurse; Visit Provider Nurse Practitioner
DX: D12.6 Benign neoplasm of colon, unspecified (principal); Z98.890 Other specified postprocedural states; K90.89 Other intestinal malabsorption; K21.00 Gastro-esophageal reflux disease with esophagitis, without bleeding; Z87.19 Personal history of other diseases of the digestive system; K62.7 Radiation proctitis; J44.9 Chronic obstructive pulmonary disease, unspecified
CPT/HCPCS: 99213

== ENCOUNTER → 2023-08-27 14:24 | Outpatient (BNVA) | payer MEDICARE, MEDICAID, SELFPAY | PROVIDERS: PCP Registered Nurse; Visit Provider Nurse Practitioner | DX: K90.89 Other intestinal malabsorption (principal); K21.00 Gastro-esophageal reflux disease with esophagitis, without bleeding; K62.7 Radiation proctitis; J44.9 Chronic obstructive pulmonary disease, unspecified; Z86.010 Personal history of colon polyps; Z87.19 Personal history of other diseases of the digestive system | CPT/HCPCS: 99212 ==

== ENCOUNTER 2023-09-30 15:43 | Outpatient (AMB) | payer MEDICARE, MEDICAID, SELFPAY ==
[2023-09-30 15:48] VITALS: BP 110/70; PULSE 80; O2SAT 98; BMI 27.1
--- NOTE | 2023-09-30 15:48 | MHC.OFFVIS ---
Vital Signs 09/30/23 15:48 Height 5 ft 2 in Weight 148 lb BMI 27.1 BP 110/70 Blood Pressure Location Lt brachial Position Sitting Pulse 80 Pulse Source Pulse Oximeter Pulse Oximetry (%) 98 Oxygen Delivery Method Room Air Intake Visit Reasons: copd Intake Note: pt is here for follow up and states her breathing is not good, needs refill on inhalers. Food Products Tester Required: No Allergies ciprofloxacin [From Cipro] Adverse Reaction (Intermediate, Verified 09/30/23 16:12) Facial redness, lip swelling Medication List - Last Reconciled 09/30/23 by Vane Loja MD albuterol sulfate 90 mcg/actuation (Ventolin HFA) 2 puffs inhalation Q4-6H PRN 30 days cholecalciferol (vitamin D3) 125 mcg PO DAILY docusate sodium (Colace) 100 mg PO BID fluticasone furoate-vilanterol 200-25 mcg/dose (Breo Ellipta) 1 inh inhalation DAILY 30 days lidocaine 5% (Lidoderm) 1 patch topical DAILY PRN lorazepam 0.5 mg PO BEDTIME PRN metoprolol succinate ER 25 mg PO DAILY multivitamin 1 tab PO DAILY pantoprazole 40 mg PO BID Do you need a note to return to daycare/school/sports/work: No HPI HPI copd: Details: THIS 73 YEARS OLD VERY PLEASANT FEMALE WHO TAKES CARE OF ELDERLY CURRENTLY HAS ONLY 1 SENIOR CITIZEN THAT SHE IS TAKING CARE OF. SHE LOVES TO TAKE NATURAL MEDICINE AND DISCUSS ABOUT THE NATURAL REMEDIES, SHE DOES HAVE MILD COPD AND BRONCHIECTASIS WHICH IS REMAINING VERY STABLE. NOW THAT SHE HAS BEEN OUT OF BREO AND VENTOLIN FOR A WHILE , SHE IS HAVING INCREASED COUGH . BUT STILL DOES NOT HAVE ANY WHEEZING. SHORTNESS OF BREATH IS MINIMAL AND SHE REMAINS PHYSICALLY ACTIVE. [facility] Medical History (Updated 09/30/23 @ 16:20 by Vane Loja MD) Bronchiectasis Shoulder pain, bilateral UTI (urinary tract infection) Interstitial lung disease Arthralgia Dizziness Dysuria Acute sinusitis Abdominal pain Periumbilical abdominal pain Flank pain Left flank pain Annual physical exam IBS (irritable bowel syndrome) Gastritis Cough Fatigue Scabies Post covid-19 condition, unspecified Elevated LFTs Diarrhea Sinusitis Bronchitis Well woman exam COPD (chronic obstructive pulmonary disease) Radiation proctitis Radiation enteritis Postmenopausal bleeding History of colon cancer SBO (small bowel obstruction) Rectal bleeding Asthma Vertigo Seasonal allergies Hyperglycemia Palpitation Hemochromatosis Tubular adenoma Colon cancer Vaginal cancer Surgical History History of cholecystectomy History of esophagogastroduodenoscopy (EGD) H/O colonoscopy H/O colectomy Family History Father Dementia GSW (gunshot wound) CAD (coronary artery disease) Mother GSW (gunshot wound) Family/Other Diabetes mellitus Brother CAD (coronary artery disease) Sister Multiple sclerosis Sister Rheumatoid arthritis Sister Rheumatoid arthritis Social History Household Members: None Household Members Other:: aunt a 96 years old Housing: House Do you presently have visiting nurse or other home services: No Alcohol intake: never Patient Tobacco Use Status: Never used Tobacco e-Cigarette/Vaping Use: Never Used Second Hand Smoke Exposure: No Advance Directives Date on File: 04/09/22 service: No Current occupational status: unemployed Sexual orientation: Straight/Heterosexual Gender identity: Female Review of Systems Const All systems reviewed & are unremarkable except as noted in HPI and below Eyes Reports no additional complaints ENT Reports nasal congestion (Mild intermittent) Card Denies chest pain, Denies irregular heart rhythm and Denies leg edema Resp Reports as per HPI GI Reports no additional complaints Reports no additional complaints Musc Reports no additional complaints Skin/Breast Reports system reviewed and no additional complaints, except as documented Neuro Reports no additional complaints Psych Reports no additional complaints Endo Reports no additional complaints Physical Exam Vital Signs: Last Vital Signs Pulse 80 09/30/23 15:48 BP 110/70 09/30/23 15:48 Pulse Ox 98 09/30/23 15:48 Oxygen Delivery Method Room Air 09/30/23 15:48 BMI result Body Mass Index 27.1 Const General: comfortable, no acute distress, alert and awake Orientation/consciousness: patient oriented x3 HEENT Head: Yes normal to inspection General nose exam: No nasal polyps present and Other nasal findings present (MODERATE NASAL CONGESTION, SHE HAS COPIOUS POSTERIOR PHARYNGEAL MUCOUS) Face and sinus: Yes sinuses nontender Mouth: oropharynx normal Throat: No posterior oropharynx normal (HAS LOT OF MUCUS IN THE POSTERIOR PHARYNX.) Eyes General: appearance normal, both eyes and all related structures Neck Neck: Yes normal visual inspection, Yes no lymphadenopathy, Yes trachea midline and Yes no JVD Thyroid: Thyroid normal Chest Chest palpation & inspection: normal inspection of the chest, normal palpation of entire chest wall and no tenderness Resp Other: Percussion note resonant, breath sounds are slightly distant. No wheezes but she does have a few inspiratory crackles over the lower lobes on both sides . Cardio Palpation: normal PMI Rate: regular rate Rhythm: regular rhythm Heart sounds: no gallops and no murmurs Peripheral pulses: Peripheral pulses 2+ throughout GI Palpation (GI): Soft to palpation, nontender, No hepatosplenomegaly present and no masses Auscultation: normal bowel sounds Back/Spine/Pelvis Thoracic/Lumbar Spine: thoracic and lumbar spine normal to inspection Skin General skin exam: no rashes or lesions noted Neuro General: patient oriented x3 and no focal motor deficits Cranial nerves: Yes CN's II-XII intact bilaterally Extrem General: Yes normal to inspection, Yes no clubbing, cyanosis or edema and Yes no calf tenderness Psych Speech and movement: Normal speech and movement present Assessment & Plan Assessment & Plan (1) COPD (chronic obstructive pulmonary disease): Comment: Patient does have mild to moderate chronic obstructive pulmonary disease., is relatively stable except for symptoms of cough and mucus production. Code(s): J44.9 - Chronic obstructive pulmonary disease, unspecified Category: Medical Plan: Restart using Breo 200-251 inhalation daily. And use ProAir HFA 2 puffs Q 6 hours p.r.n. Also advised to drink plenty of fluid, And may use Mucinex 400 mg b.i.d. p.r.n. if she feels that the mucus is too thick. (2) Bronchiectasis: Comment: She has traction bronchiectasis in the lower lobes secondary to chronic fibrotic changes . Code(s): J47.9 - Bronchiectasis, uncomplicated Category: Medical Plan: Advised to drink plenty of fluids. May use steam inhalation b.i.d. p.r.n.. May use Mucinex 400 mg b.i.d. if she feels that the mucus is bothersome. We did talk about many herbal meds that she uses. Coding Level of Care Code Est Pt Level 3 (66416) Diagnoses COPD (chronic obstructive pulmonary disease) J44.9 Bronchiectasis J47.9
== END 2023-09-30 16:12 | disposition home or self-care (01) ==
PROVIDERS: PCP Nurse Practitioner Primary Care; Visit Provider Internal Medicine
DX: J44.9 Chronic obstructive pulmonary disease, unspecified (principal); J47.9 Bronchiectasis, uncomplicated
CPT/HCPCS: 99213

== ENCOUNTER → 2023-09-30 15:43 | Outpatient (BNVA) | payer MEDICARE, MEDICAID, SELFPAY | PROVIDERS: PCP Registered Nurse; Visit Provider Internal Medicine | DX: J44.9 Chronic obstructive pulmonary disease, unspecified (principal); J47.9 Bronchiectasis, uncomplicated | CPT/HCPCS: 99212 ==

== ENCOUNTER 2023-11-21 13:50 | Outpatient (AMB) | payer MEDICARE, MEDICAID, SELFPAY ==
--- NOTE | 2023-11-21 14:03 | MHC.OFFVIS ---
Vital Signs 11/21/23 14:07 Height 5 ft 1 in Weight 145 lb 15.136 oz BMI 27.6 BP 100/72 Blood Pressure Location Rt brachial Position Sitting Pulse 98 Pulse Source Pulse Oximeter Pulse Oximetry (%) 97 Oxygen Delivery Method Room Air Intake Visit Reasons: Sjogren's Intake Note: Patientv presents for Sjogren's. Allergies ciprofloxacin [From Cipro] Adverse Reaction (Intermediate, Verified 11/21/23 14:07) Facial redness, lip swelling Medication List - Last Reconciled 11/21/23 by Jackson Perea MD albuterol sulfate 90 mcg/actuation (Ventolin HFA) 2 puffs inhalation Q4-6H PRN 30 days cholecalciferol (vitamin D3) 125 mcg PO DAILY docusate sodium (Colace) 100 mg PO BID fluticasone furoate-vilanterol 200-25 mcg/dose (Breo Ellipta) 1 inh inhalation DAILY 30 days hydroxychloroquine 300 mg (1.5 x 200 mg) PO DAILY lidocaine 5% (Lidoderm) 1 patch topical DAILY PRN lorazepam 0.5 mg PO BEDTIME PRN metoprolol succinate ER 25 mg PO DAILY multivitamin 1 tab PO DAILY pantoprazole 40 mg PO BID HPI Comments Details: Patient returns for follow-up. She states that she has been more short of breath recently. Gets short of breath after walking 1 block. She has also been coughing. Sometimes bringing up greenish sputum. She is complaining of neck pain that intermittently radiates to her head. She has diffuse joint pain especially in his shoulders, hands, wrists. Initial history: This is a 72-year-old female with complex past medical history presents as a new patient. She was referred for positive SVETLANA and positive rheumatoid factor. Patient has a history of hemochromatosis, COPD, IL D, there was some suspicion of autoimmune hepatitis. Patient states that she has history of colon cancer and vaginal cancer and had radiation many years ago. States that she gets intermittent vaginal spotting, states that her the spotting has become a little bit worse recently and she feels a little dizzy today. Patient states that she has had diffuse pain for many years, affecting multiple areas including her hands, arms, hips, knees, back, feet. She has generalized morning stiffness that lasts 15-30 minutes. 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 She was told she has bilateral rotator cuff tendinopathy and surgery was suggested but that orthopedic surgeon had left the practice, she was evaluated by another orthopedic surgeon 5 years ago and was told that she was not a good surgical candidate due to her age. States that she has 2 sisters with rheumatoid arthritis [facility] Medical History Bronchiectasis Shoulder pain, bilateral UTI (urinary tract infection) Interstitial lung disease Arthralgia Dizziness Dysuria Acute sinusitis Abdominal pain Periumbilical abdominal pain Flank pain Left flank pain Annual physical exam IBS (irritable bowel syndrome) Gastritis Cough Fatigue Scabies Post covid-19 condition, unspecified Elevated LFTs Diarrhea Sinusitis Bronchitis Well woman exam COPD (chronic obstructive pulmonary disease) Radiation proctitis Radiation enteritis Postmenopausal bleeding History of colon cancer SBO (small bowel obstruction) Rectal bleeding Asthma Vertigo Seasonal allergies Hyperglycemia Palpitation Hemochromatosis Tubular adenoma Colon cancer Vaginal cancer Surgical History History of cholecystectomy History of esophagogastroduodenoscopy (EGD) H/O colonoscopy H/O colectomy Family History Father Dementia GSW (gunshot wound) CAD (coronary artery disease) Mother GSW (gunshot wound) Family/Other Diabetes mellitus Brother CAD (coronary artery disease) Sister Multiple sclerosis Sister Rheumatoid arthritis Sister Rheumatoid arthritis Social History Household Members: None Household Members Other:: aunt a 96 years old Housing: House Do you presently have visiting nurse or other home services: No Alcohol intake: never Patient Tobacco Use Status: Never used Tobacco e-Cigarette/Vaping Use: Never Used Second Hand Smoke Exposure: No Advance Directives Date on File: 04/09/22 service: No Current occupational status: unemployed Sexual orientation: Straight/Heterosexual Gender identity: Female Review of Systems Const Reports weight loss Eyes Denies dry eyes ENT Reports dry mouth and Reports neck pain Card Reports dyspnea on exertion Resp Reports cough and Reports dyspnea on exertion Musc Reports arthralgias, Reports joint swelling, Reports limited range of motion, Reports neck pain, Reports radiating pain into limb and Reports stiffness Physical Exam Vital Signs: Last Vital Signs Pulse 98 11/21/23 14:07 BP 100/72 11/21/23 14:07 Pulse Ox 97 11/21/23 14:07 Oxygen Delivery Method Room Air 11/21/23 14:07 BMI result Body Mass Index 27.6 Const General: cooperative, healthy appearing and comfortable Nutritional Appearance: overweight Orientation/consciousness: patient oriented x3 Limitations: no limitations HEENT Head: Yes normocephalic and Yes atraumatic Mouth: moist mucous membranes Resp Other: Coughs intermittently and coughs with deep breaths Effort & Inspection: normal respiratory effort and able to speak in complete sentences Auscultation: crackles Cardio Rate: regular rate Neuro General: patient oriented x3 Extrem Other: Bilateral osteoarthritic changes of both hands with prominent Heberden's, Lizeth's nodes and squaring of 1st CMC joint Bilateral 1st CMC joint tenderness Bilateral wrist tenderness and pain with flexion-extension Tenderness of MCPs and PIP is bilaterally No significant DIP tenderness Significantly limited abduction of both shoulders Assessment & Plan Assessment & Plan (1) SVETLANA positive: Code(s): R76.8 - Other specified abnormal immunological findings in serum Category: Medical Plan: This is a 73-year-old female with complex past medical history including heterozygosity for H63D mutation for hemochromatosis, bronchiectasis/COPD/ILD who presents a for follow-up She was initially referred for a positive SVETLANA and positive rheumatoid factor. Labs showed positive anti SSA and anti SSB in high titers. There is no skin rashes, no sicca symptoms. No symptoms suggestive of SLE. Her serology is consistent with Sjogren's, but she does not have the classic sicca symptoms. She has known bronchiectasis is with ILD. The ILD was suspected to be related to radiation exposure. At this point, she might have ILD related to Sjogren's. She has been having worsening cough or shortness of breath over the last few months. I will check a repeat CT chest as well as repeat PFTs. Will attempt to reach out to Dr. Loja to further discuss. ? Smoldering infection Her arthralgias are likely due to arthritis however may be an inflammatory component. Will start hydroxychloroquine therapeutic trial. Start hydroxychloroquine 300 mg daily. We discussed risks and benefits of it Labs before next visit in 3 months (2) Sjogren syndrome: Code(s): M35.00 - Sjogren syndrome, unspecified Category: Medical (3) Rotator cuff arthropathy of both shoulders: Code(s): M12.811 - Other specific arthropathies, not elsewhere classified, right shoulder; M12.812 - Other specific arthropathies, not elsewhere classified, left shoulder Category: Medical Plan: Referred to PT (4) Degenerative cervical disc: Code(s): M50.30 - Other cervical disc degeneration, unspecified cervical region Category: Medical Plan: Referred to PT (5) Long-term use of hydroxychloroquine: Code(s): Z79.899 - 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 Panel 3 Months M35.00 - Sjogren syndrome, unspecified Erythrocyte Sedimentation Rate 3 Months M35.00 - Sjogren syndrome, unspecified PFT pulmonary function test Today J44.9 - Chronic obstructive pulmonary disease, unspecified, J47.9 - Bronchiectasis, uncomplicated CT chest wo con - High Res Today J84.9 - Interstitial pulmonary disease, unspecified Medications: New hydroxychloroquine 300 mg (1.5 x 200 mg) PO DAILY 135 tabs 0RF Coding Level of Care Code Est Pt Level 5 (06071) Complex EM visit Add On G2211 Diagnoses SVETLANA positive R76.8 Sjogren syndrome M35.00 Rotator cuff arthropathy of both shoulders M12.811; M12.812 Degenerative cervical disc M50.30 Long-term use of hydroxychloroquine Z79.899
[2023-11-21 14:07] VITALS: BP 100/72; PULSE 98; O2SAT 97; BMI 27.6
== END 2023-11-21 14:38 | disposition home or self-care (01) ==
PROVIDERS: PCP Registered Nurse; Visit Provider Student in an Organized Health Care Education/Training Program
DX: M35.00 Sjogren syndrome, unspecified (principal); R76.8 Other specified abnormal immunological findings in serum; M12.811 Other specific arthropathies, not elsewhere classified, right shoulder; M12.812 Other specific arthropathies, not elsewhere classified, left shoulder; M50.30 Other cervical disc degeneration, unspecified cervical region; Z79.899 Other long term (current) drug therapy
CPT/HCPCS: 99215; G2211

== ENCOUNTER → 2023-11-21 13:50 | Outpatient (BNVA) | payer MEDICARE, MEDICAID, SELFPAY | PROVIDERS: PCP Registered Nurse; Visit Provider Student in an Organized Health Care Education/Training Program | DX: M35.00 Sjogren syndrome, unspecified (principal); R76.8 Other specified abnormal immunological findings in serum; M12.811 Other specific arthropathies, not elsewhere classified, right shoulder; M12.812 Other specific arthropathies, not elsewhere classified, left shoulder; M50.30 Other cervical disc degeneration, unspecified cervical region; Z79.899 Other long term (current) drug therapy | CPT/HCPCS: 99212 ==

== ENCOUNTER 2024-02-12 22:29 | Inpatient (IN) | payer MEDICARE, MEDICAID, SELFPAY ==
--- NOTE | ~2024-02-12 | XR_ITS ---
EXAMINATION: XR CHEST CLINICAL INFORMATION: dyspnea COMPARISON: January 23, 2023 TECHNIQUE: Frontal view of the chest was obtained. FINDINGS: The cardiomediastinal silhouette is stable. There is mild to moderate diffuse increased interstitial markings/interstitial coarsening grossly similar to prior. There is also vascular congestion similar to previous. There is a calcific granuloma right lower lung field. There are no significant pleural effusions. The bony structures and the soft tissues are unremarkable. XR/XR chest 1V IMPRESSION: Redemonstration of mild to moderate diffuse increased interstitial markings/interstitial coarsening and vascular congestion similar to prior. This may all be chronic however a component of interstitial edema is considered. Electronically signed by: Juwan Ott MD 02/13/2024 02:06 AM [facility]GU[facility]
--- NOTE | ~2024-02-12 | CT_ITS ---
EXAMINATION: CT ABDOMEN AND PELVIS WITH CONTRAST CLINICAL INFORMATION: Persistent epigastric pain. COMPARISON: Multiple priors, most recent CT abdomen/pelvis dated 02/13/2024. TECHNIQUE: Multidetector volumetric images were obtained from the superior aspect of the liver through the pubic symphysis following administration 85 mL of Omnipaque 350 intravenous contrast. Sagittal and coronal reformatted images were obtained on the technologist's workstation. Oral contrast: Yes This CT examination was performed using dose optimization techniques as appropriate, variously including the following: *Automated exposure control *Adjustment of mA and/or kV according to patient size (this includes techniques or standardized protocols for targeted exams where dose is matched to indication/reason for exam; i.e. extremities or head) *Use of iterative reconstruction technique DLP: 668 mGy-cm FINDINGS: LUNG BASES: Interstitial prominence within the periphery of the lung bases, similar when compared to the prior examination. LIVER, GALLBLADDER, AND BILIARY TREE: The liver is normal in size, shape, and attenuation. No focal hepatic parenchymal lesion. Status post cholecystectomy. Significant dilatation of the common bile duct measuring up to 1.6 cm. Mild intrahepatic biliary ductal dilatation. Findings are unchanged when compared to the prior examination. PANCREAS: Unremarkable. SPLEEN: Unremarkable. ADRENAL GLANDS: Unremarkable. KIDNEYS AND URETERS: The kidneys are normal in size, shape, and attenuation. No hydronephrosis, hydroureter, or calculi seen. No perinephric stranding. BLADDER: Nondistended and unremarkable. GASTROINTESTINAL TRACT: Small, sliding hiatal hernia. Oral contrast within the esophagus likely indicating a degree of gastroesophageal reflux. Circumferential wall thickening of the rectum is redemonstrated with prominent adjacent fat stranding, increased when compared to the prior examination and consistent with proctitis. No organized fluid collection or abscess formation. No extraluminal air to suggest perforation. Multiple surgical clips redemonstrated adjacent to the rectosigmoid junction. Moderate stool throughout the colon, which could indicate a degree of constipation. No additional bowel wall thickening or inflammatory change. No small or large bowel obstruction. Appendix not identified; however, no regular quadrant inflammatory change to suggest acute appendicitis. PERITONEAL CAVITY: Trace pelvic free fluid. No organized fluid collection or abscess formation. No intra-abdominal free air. ABDOMINAL WALL: No significant hernia is appreciated. LYMPH NODES: No lymphadenopathy. VASCULAR: No abdominal aortic dilatation or dissection. Atherosclerotic calcifications. Unremarkable IVC. PELVIC VISCERA: The uterus is atrophic. OSSEOUS STRUCTURES: No acute osseous abnormality. CT/CT abdomen pelvis w IV con IMPRESSION: 1. Circumferential wall thickening of the rectum with prominent adjacent fat stranding, increased when compared to the prior examination and consistent with proctitis. No organized fluid collection or abscess formation. No extraluminal air to suggest perforation. 2. Moderate stool throughout the colon, which could indicate a degree of constipation. No small or large bowel obstruction. 3. Trace pelvic free fluid. No organized fluid collection or abscess formation. No intra-abdominal free air. 4. Status post cholecystectomy. Stable dilatation of the common bile duct and intrahepatic biliary ducts, unchanged when compared to the prior examination. 5. Small, sliding hiatal hernia. Oral contrast within the esophagus, likely indicating a degree of gastroesophageal reflux. Fleischner guidelines were followed. Electronically signed by: Joel Odell MD 02/17/2024 10:17 AM [facility]
--- NOTE | ~2024-02-12 | CT_ITS ---
EXAMINATION: CT ABDOMEN AND PELVIS WITHOUT AND WITH CONTRAST CLINICAL INFORMATION: GI bleed. COMPARISON: January 01, 2023 TECHNIQUE: Multidetector volumetric imaging was performed of the abdomen and pelvis before and after the IV administration of 80 mL of Omnipaque 350 intravenous contrast. Sagittal and coronal reformatted images were obtained on the technologist's workstation. This CT examination was performed using dose optimization techniques as appropriate, variously including the following: *Automated exposure control *Adjustment of mA and/or kV according to patient size (this includes techniques or standardized protocols for targeted exams where dose is matched to indication/reason for exam; i.e. extremities or head) *Use of iterative reconstruction technique DLP: 1876 mGy-cm FINDINGS: LUNG BASES: There is interstitial coarsening at both lung bases similar to prior. LIVER, GALLBLADDER, AND BILIARY TREE: Liver is irregular in contour. No focal liver lesions are seen. There is no intrahepatic biliary duct dilatation. There has been a prior cholecystectomy. The common bile duct is again seen to be dilated up to 1.5 cm similar to prior. PANCREAS: Unremarkable SPLEEN: Unremarkable ADRENAL GLANDS: Unremarkable KIDNEYS AND URETERS: The kidneys are normal in size, shape, and attenuation. No hydronephrosis, hydroureter, or calculi seen. No perinephric stranding. There are a few bilateral renal cysts. BLADDER: Unremarkable GASTROINTESTINAL TRACT: There is retained stool. There is rectal thickening. The distal rectum appears to be hypervascular without definitive contrast extravasation. ABDOMINAL WALL: No significant hernia is appreciated. LYMPH NODES: Normal VASCULAR: There is atherosclerotic plaque of the abdominal aorta and proximal branches. PELVIC VISCERA: Surgical clips in the left adnexa similar to prior. OSSEOUS STRUCTURES: There is bilateral sacroiliac subchondral sclerosis. There is diffuse thoracolumbar degenerative change. There is bilateral hip degenerative change. CT/CT gi bleed abd pel wo/w IVcon IMPRESSION: 1. There is rectal wall thickening. The distal rectum appears to be hypervascular without definitive contrast extravasation. This could be seen in the setting of proctitis. 2. There is retained stool throughout the colon. 3. Irregular contour of the liver suggesting underlying cirrhosis. 4. Status post cholecystectomy with persistent dilatation of the common bile duct. Fleischner guidelines were followed. Electronically signed by: Juwan Ott MD 02/13/2024 06:36 AM EST
[2024-02-12 22:38] VITALS: BP 144/86; PULSE 108; O2SAT 98
[2024-02-12 22:41] VITALS: BP 111/71; PULSE 101; RESP 16; TEMP 36.8; O2SAT 96; BMI 25.6
[2024-02-12 23:10] LABS: MANUAL DIFF FLAG NO
--- NOTE | 2024-02-12 23:11 | ED.ABDPAIN ---
HPI - Abdominal Pain General Chief Complaint: Abdominal Pain Stated Complaint: R Flank pain, blood clot in toliet, v/n, hx cancer Time Seen by Provider: 02/12/24 23:09 Source: patient Mode of arrival: ambulatory Limitations: no limitations History of Present Illness ED Provider: HPI narrative: Patient's history of colon cancer with frequent small bowel upset had colonoscopy 2 months ago with polypectomy since then patient has been bleeding occasionally initially but for last 4 days patient been bleeding more often passing blood clots Related Data Home Medications ?Medication ?Instructions ?Recorded ?Confirmed cholecalciferol (vitamin D3) 125 125 mcg PO DAILY 01/05/22 09/30/23 mcg (5,000 unit) capsule multivitamin 1 tab PO DAILY 04/08/22 09/30/23 lorazepam 0.5 mg tablet 0.5 mg PO BEDTIME PRN Anxiety 09/23/22 09/30/23 Previous Rx's ?Medication ?Instructions ?Recorded metoprolol succinate 25 mg 25 mg PO DAILY #90 tabs 01/19/21 tablet,extended release 24 hr docusate sodium 100 mg capsule 100 mg PO BID #60 caps 10/05/22 (Colace) lidocaine 5 % topical patch 1 patch topical DAILY PRN Pain #30 10/24/22 (Lidoderm) ea pantoprazole 40 mg tablet,delayed 40 mg PO BID #60 tabs 03/22/23 release albuterol sulfate 90 mcg/actuation 2 puff inhalation Q4-6H PRN 04/01/23 aerosol inhaler (Ventolin HFA) shortness of breath or wheezing 30 days #8.5 grams hydroxychloroquine 200 mg tablet 300 mg (1.5 x 200 mg) PO DAILY 12/04/23 #135 tabs fluticasone furoate 200 1 inh inhalation DAILY copd 30 12/09/23 mcg-vilanterol 25 mcg/dose days #60 ea inhalation powder (Breo Ellipta) Allergies Allergy/AdvReac Type Severity Reaction Status Date / Time ciprofloxacin [From Cipro] AdvReac Intermediate Facial Verified 02/12/24 22:57 redness, lip swelling Review of Systems Review of Systems Yes all other systems are reviewed and are negative PMFSH Past Medical History Medical History (Updated 02/13/24 @ 07:11 by Qamar Reyes MD) Abdominal pain Bronchiectasis Shoulder pain, bilateral UTI (urinary tract infection) Interstitial lung disease Arthralgia Dizziness Dysuria Acute sinusitis Periumbilical abdominal pain Flank pain Left flank pain Annual physical exam IBS (irritable bowel syndrome) Gastritis Cough Fatigue Scabies Post covid-19 condition, unspecified Elevated LFTs Diarrhea Sinusitis Bronchitis Well woman exam COPD (chronic obstructive pulmonary disease) Radiation proctitis Radiation enteritis Postmenopausal bleeding History of colon cancer SBO (small bowel obstruction) Rectal bleeding Asthma Vertigo Seasonal allergies Hyperglycemia Palpitation Hemochromatosis Tubular adenoma Colon cancer Vaginal cancer Surgical History History of cholecystectomy History of esophagogastroduodenoscopy (EGD) H/O colonoscopy H/O colectomy Family History Family History Father Dementia GSW (gunshot wound) CAD (coronary artery disease) Mother GSW (gunshot wound) Family/Other Diabetes mellitus Brother CAD (coronary artery disease) Sister Multiple sclerosis Sister Rheumatoid arthritis Sister Rheumatoid arthritis Social History Social History Household Members: None Household Members Other:: aunt a 96 years old Housing: House Do you presently have visiting nurse or other home services: No Alcohol intake: never Patient Tobacco Use Status: Never used Tobacco Smoked in Last 30 Days: No e-Cigarette/Vaping Use: Never Used Second Hand Smoke Exposure: No Use of substances other than those prescribed or required for medical reasons: No Advance Directives: Yes Advance Directives on File: Yes Advance Directives Date on File: 04/09/22 Nutrition Risks: No Nutritional Risk service: No Current occupational status: unemployed Sexual orientation: Straight/Heterosexual Gender identity: Female Physical Exam ED Vital Signs: Vital Signs - 24 hr 02/12/24 22:41 02/13/24 00:36 02/13/24 02:22 Temperature 98.3 F 98.8 F 98.5 F Pulse Rate 101 H 90 97 Respiratory Rate 16 16 16 Blood Pressure 111/71 128/79 108/66 Pulse Oximetry 96 97 95 Oxygen Delivery Method Room Air Room Air Room Air 02/13/24 03:46 Temperature 98.4 F Pulse Rate 100 Respiratory Rate 16 Blood Pressure 130/81 Pulse Oximetry 97 Oxygen Delivery Method Room Air BMI result Body Mass Index 25.6 Appearance: Alert. Oriented X3. No acute distress. Eyes no pallor or icterus ENT: Pharynx normal. Oral Mucosa moist Neck: Normal inspection. Neck supple. CVS: Normal heart rate and rhythm. Pulses normal. Respiratory: No respiratory distress. Equal air entry bilateral, no wheezing/rales/rhonchi Abdomen: Soft and diffuse lower abdominal tenderness no rebound tenderness or guarding. Bowel sounds are present, no mass palpable, no CVA tenderness Skin: Skin warm and dry. Normal skin color. Normal skin turgor. Extremities: No lower extremity edema. No calf tenderness Neuro: Oriented X 3. No motor deficit. 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 02/12/24 23:05 02/12/24 23:05 Labs: Lab Results 02/12/24 02/13/24 Range/Units 23:05 00:40 WBC 5.4 (4.8-10.8) X10*3/uL RBC 3.33 L (4.20-5.50) X10*6/uL Hgb 11.3 L (12.0-16.0) g/dl Hct 32.5 L (37.0-47.0) % MCV 97.6 (80.0-98.0) fL MCH 33.9 H (27.0-33.0) pg MCHC 34.8 (31.0-35.0) g/dl RDW 13.4 (11.0-16.0) % Plt Count 216 (160-400) X10*3/uL MPV 8.5 L (9.4-12.3) fL Immature Gran % (Auto) 0.2 (0.0-0.4) % Neut % (Auto) 71.6 (45-73) % Lymph % (Auto) 18.1 L (20-40) % Worth % (Auto) 9.3 (2-11) % Eos % (Auto) 0.6 (0-4) % Baso % (Auto) 0.2 (0-2) % Lymph # (Auto) 1.0 L (1.2-4.9) X10*3/uL Worth # (Auto) 0.5 (0.1-1.2) X10*3/uL Eos # (Auto) 0.0 (0.0-0.4) X10*3/uL Baso # (Auto) 0.0 (0.0-0.2) X10*3/uL Abs Immat Gran (auto) 0.01 (0.00-0.03) X10*3/uL Absolute Neuts (auto) 3.9 (2.0-8.3) x10*3/uL Absolute Nucleated RBC 0.000 (0.0-0.012) X10*3/uL Nucleated RBC % (auto) 0.0 (0.0-0.2) /100WBC ESR 86 H (0-20) MM/HR Sodium 137 (135-145) mmol/L Potassium 4.5 (3.3-5.1) mmol/L Chloride 108 (96-108) mmol/L Carbon Dioxide 23 (22-29) mmol/L Anion Gap 11 L (12-20) BUN 19 H (9-16) mg/dL Creatinine 0.73 (0.5-1.4) mg/dL Estim Creat Clear Calc 58.2 Estimated GFR > 60 Random Glucose 86 (60-115) mg/dL Calcium 8.9 (8.4-10.2) mg/dL Total Bilirubin 0.4 (0.0-1.0) mg/dL AST 70 H (5-31) U/L ALT 62 H (0-31) U/L Alkaline Phosphatase 110 (39-117) U/L Total Protein 7.9 (6.5-8.0) g/dL Albumin 3.6 (3.5-5.0) g/dL Lipase 22 (8-78) U/L Urine Color Yellow Urine Appearance Clear Urine pH 6.0 (5.0-9.0) Ur Specific [place] 1.010 (1.005-1.025) Urine Protein Negative (Neg-Trace) mg/dL Urine Glucose (UA) Negative (Negative) mg/dL Urine Ketones Negative (Negative) mg/dL Urine Blood Trace H (Negative) Urine Nitrite Negative (Negative) Ur Leukocyte Esterase Negative (Negative) Urine RBC 0-2 (0-2) /HPF Urine WBC 0-5 (0-5) /HPF Ur Squamous Epith Cells 0-2 (0-2) /HPF Urine Bacteria None Seen (None Seen) Hyaline Casts 0-2 (0-2) /LPF Independent Interpretation I performed an independent interpretation of an: CT Scan Radiology Impression Discussion of test interpretation with radiology: I have reviewed the radiologist's reading. Radiologist Impression: CT/CT gi bleed abd pel wo/w IVcon IMPRESSION: 1. There is rectal wall thickening. The distal rectum appears to be hypervascular without definitive contrast extravasation. This could be seen in the setting of proctitis. 2. There is retained stool throughout the colon. 3. Irregular contour of the liver suggesting underlying cirrhosis. 4. Status post cholecystectomy with persistent dilatation of the common bile duct. Medications Administered Generic Name Dose Route Start Last Admin Trade Name Freq PRN Reason Stop Dose Admin Lactated Ringer's 1,000 mls @ 100 mls/hr 02/13/24 04:15 02/13/24 04:35 Lr IVCONT 100 mls/hr .Q10H FRANCISCO Administration Morphine Sulfate 4 mg 02/13/24 04:08 02/13/24 04:35 Morphine Sulfate 4 Mg/Ml Cartridge IVPUSH 4 mg Q4H PRN Administration Pain, Severe (Pain Scale 7-10) Protocol Pantoprazole Sodium 40 mg 02/13/24 06:30 02/13/24 06:30 Pantoprazole Sodium 40 Mg/10 Ml Vial IVPUSH 40 mg BID@0630,1630 FRANCISCO Administration Discontinued Medications Generic Name Dose Route Start Last Admin Trade Name Freq PRN Reason Stop Dose Admin Sodium Chloride 1,000 mls @ 999 mls/hr 02/13/24 01:10 02/13/24 02:30 Ns IV 02/13/24 02:10 Infused .Q1H1M ONE Infusion Iohexol 80 ml 02/13/24 01:56 02/13/24 01:59 Iohexol 350 Mg/Ml 100 Ml Infus..Btl IV 02/13/24 01:57 80 ml ONCE ONE Administration Morphine Sulfate 4 mg 02/13/24 01:10 02/13/24 01:24 Morphine Sulfate 4 Mg/Ml Cartridge IVPUSH 02/13/24 01:11 4 mg ONCE ONE Administration Protocol Ondansetron HCl 4 mg 02/13/24 01:10 02/13/24 01:24 Ondansetron Hcl 4 Mg/2 Ml Vial IVPUSH 02/13/24 01:11 4 mg ONCE ONE Administration Discharge Plan Discharge Clinical Impression: Acute lower gastrointestinal bleeding Patient Disposition: Admitted As Inpatient
[2024-02-12 23:12] LABS: Basophils Percent Auto 0.2 % (0-2); Eosinophils Percent Auto 0.6 % (0-4); Hematocrit 32.5 % (37.0-47.0); Hemoglobin 11.3 g/dl (12.0-16.0); Imm Gran Abs Auto 0.01 X10*3/uL (0.00-0.03); Imm Gran Pct Auto 0.2 % (0.0-0.4); Lymphocytes Percent Auto 18.1 % (20-40); Mean Corpuscular HGB Conc 34.8 g/dl (31.0-35.0); Mean Corpuscular Hemoglobin 33.9 pg (27.0-33.0); Mean Corpuscular Volume 97.6 fL (80.0-98.0); Mean Platelet Volume 8.5 fL (9.4-12.3); Monocytes Absolute Auto 0.5 X10*3/uL (0.1-1.2); Monocytes Percent Auto 9.3 % (2-11); Neutrophils Absolute Auto 3.9 x10*3/uL (2.0-8.3); Neutrophils Percent Auto 71.6 % (45-73); Platelet Count 216 X10*3/uL (160-400); Red Blood Count 3.33 X10*6/uL (4.20-5.50); Red Cell Distribution Width 13.4 % (11.0-16.0); White Blood Count 5.4 X10*3/uL (4.8-10.8)
[2024-02-12 23:26] LABS: Alanine Aminotransferase 62 U/L (0-31); Albumin Level 3.6 g/dL (3.5-5.0); Alkaline Phosphatase 110 U/L (39-117); Anion Gap 11 (12-20); Aspartate Amino Transferase 70 U/L (5-31); Bilirubin Total 0.4 mg/dL (0.0-1.0); Blood Urea Nitrogen 19 mg/dL (9-16); Calcium 8.9 mg/dL (8.4-10.2); Carbon Dioxide 23 mmol/L (22-29); Chloride 108 mmol/L (96-108); Creatinine Clr Calc Pharmacy 58.2; Estimated Glomerular Filt Rate > 60; Glucose Random 86 mg/dL (60-115); Lipase 22 U/L (8-78); Potassium 4.5 mmol/L (3.3-5.1); Sodium 137 mmol/L (135-145); Total Protein 7.9 g/dL (6.5-8.0)
[2024-02-12 23:47] LABS: Erythrocyte Sedimentation Rate 86 MM/HR (0-20)
[2024-02-13] VITALS (8 sets, daily range): BP systolic 99–130; BP diastolic 44–81; PULSE 78–100; RESP 16–20; TEMP 36.7–37.1; O2SAT 92–98; BMI 28.6
[2024-02-13 00:55] LABS: Appearance Urine Clear; Color Urine Yellow; Glucose Urine UA Negative (Negative); Leukocyte Esterase Urine Negative (Negative); Nitrite Urine Negative (Negative); UMIC TRIGGER UACC YES; Urine Blood Trace (Negative); Urine Ketones Negative (Negative); Urine Protein Negative (Neg-Trace)
[2024-02-13 01:00] LABS: Bacteria Urine None Seen (None Seen); Hyaline Casts Urine 0-2 /LPF (0-2); RBC Urine 0-2 /HPF (0-2); Squamous Epithelial Cell Urine 0-2 /HPF (0-2); WBC Urine 0-5 /HPF (0-5)
[2024-02-13] MEDS: 0.9 % Sodium Chloride 1,000 ML 999 ML IV (01:24)
[2024-02-13] MEDS: ondansetron HCL 4 MG/2 ML VIAL IVPUSH ×2 (01:24→19:38)
[2024-02-13] MEDS: Morphine Sulfate 4 MG/ML CARTRIDGE IVPUSH ×6 (01:24→23:44)
--- NOTE | 2024-02-13 01:29 | PC.NURSE ---
Medicated for RN Marcy, Notified JALEEL Gandhio
[2024-02-13] MEDS: iohexoL 350 MG/ML 100 ML INFUS..BTL 80 ML IV (01:59)
[2024-02-13] MEDS: Lactated Ringers 1,000 ML 100 ML IVCONT ×2 (04:35→19:39)
--- NOTE | 2024-02-13 04:37 | PM.IMHP ---
History of Present Illness Date of Service: 02/13/24 Attending physician on admission: Jonah Friedman Chief Complaint: rectal bleeding Patient is a 73-year-old female with a past medical history significant for combined asthma/COPD, radiation proctitis, colon cancer (s/p partial colectomy, last colonoscopy 2 months ago), hemochromatosis, vaginal cancer (s/p radiation) and history of small-bowel obstruction (s/p resesction), who presented to the ED with rectal bleeding, specifically dark clots for the past few days, worsening. She reports that this bleeding has been intermittent since her last colonoscopy 2 months ago however it has been worsening and now causing episodes of incontinence, therefore, she reported to the ED. 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 She describes generalized abdominal cramping, severe. She has been nauseous and vomiting without any hematemesis or coffee-ground emesis. She denies any fever or chills. She has had a left-sided headache and felt dizzy but has not been able to hydrate or tolerate much p.o. for the past few days. Review of Systems Constitutional: Constitutional: Denies chills, Denies fatigue, Denies fever(s) and Reports headache(s) Eyes: Eyes: Denies change in vision ENT: Reports dizziness, Reports headache(s), Denies nasal congestion, Denies nasal discharge and Denies sore throat Cardiovascular: Cardiovascular: Denies chest pain, Denies rapid heart rate, Denies leg edema and Denies dyspnea Respiratory: Respiratory: Denies cough, Denies dyspnea and Denies wheezing Gastrointestinal: Gastrointestinal: Reports as per HPI, Denies coffee ground emesis, Denies constipation, Reports fecal incontinence, Denies diarrhea, Reports nausea and Reports vomiting Genitourinary: Genitourinary: Denies dysuria and Denies urinary urgency Musculoskeletal: Musculoskeletal: Denies back pain Integumentary/Breasts: Skin/Breast: Denies rash Neurologic: Denies confusion, Reports dizziness and Reports headache(s) Psychiatric: Psychiatric: Denies confusion Endocrine: Endocrine: Denies fatigue Hematologic/Lymphatic: Hematologic/Lymphatic: Denies easy bruising Allergic/Immunologic: Allergic/Immunologic: Denies wheezing [facility] Medical History (Updated 02/13/24 @ 04:46 by Xochitl Pelaez PA-C) Abdominal pain Bronchiectasis Shoulder pain, bilateral UTI (urinary tract infection) Interstitial lung disease Arthralgia Dizziness Dysuria Acute sinusitis Periumbilical abdominal pain Flank pain Left flank pain Annual physical exam IBS (irritable bowel syndrome) Gastritis Cough Fatigue Scabies Post covid-19 condition, unspecified Elevated LFTs Diarrhea Sinusitis Bronchitis Well woman exam COPD (chronic obstructive pulmonary disease) Radiation proctitis Radiation enteritis Postmenopausal bleeding History of colon cancer SBO (small bowel obstruction) Rectal bleeding Asthma Vertigo Seasonal allergies Hyperglycemia Palpitation Hemochromatosis Tubular adenoma Colon cancer Vaginal cancer Functional capacity: independent ambulation Family History Father Dementia GSW (gunshot wound) CAD (coronary artery disease) Mother GSW (gunshot wound) Family/Other Diabetes mellitus Brother CAD (coronary artery disease) Sister Multiple sclerosis Sister Rheumatoid arthritis Sister Rheumatoid arthritis Surgical History History of cholecystectomy History of esophagogastroduodenoscopy (EGD) H/O colonoscopy H/O colectomy Social History Household Members: None Household Members Other:: aunt a 96 years old Housing: House Do you presently have visiting nurse or other home services: No Alcohol intake: never Patient Tobacco Use Status: Never used Tobacco e-Cigarette/Vaping Use: Never Used Second Hand Smoke Exposure: No Advance Directives: Yes Advance Directives on File: Yes Advance Directives Date on File: 04/09/22 service: No Current occupational status: unemployed Sexual orientation: Straight/Heterosexual Gender identity: Female Narrative: no etoh, smoking or drug use Meds Allergies Allergy/AdvReac Type Severity Reaction Status Date / Time ciprofloxacin [From Cipro] AdvReac Intermediate Facial Verified 02/12/24 22:57 redness, lip swelling Active Medications: Current Medications Acetaminophen (Acetaminophen 325 Mg Tablet) 650 mg PO Q6H PRN PRN Reason: Pain, Mild (Pain Scale 1-3), fever or headache Calcium Carbonate (Calcium Carbonate 750 Mg Tab.Chew) 750 mg PO Q4H PRN PRN Reason: Heartburn Lactated Ringer's (Lr) 1,000 mls @ 100 mls/hr IVCONT .Q10H [facility] Last Admin: 02/13/24 04:35 Dose: 100 mls/hr Magnesium Hydroxide (Milk Of Magnesia 30 Ml Oral.Susp) 30 ml PO DAILY PRN PRN Reason: Constipation Melatonin (Melatonin 3 Mg Tablet) 6 mg PO BEDTIME PRN PRN Reason: Insomnia Morphine Sulfate (Morphine Sulfate 4 Mg/Ml Cartridge) 4 mg IVPUSH Q4H PRN; Protocol PRN Reason: Pain, Severe (Pain Scale 7-10) Last Admin: 02/13/24 04:35 Dose: 4 mg Ondansetron HCl (Ondansetron Hcl 4 Mg/2 Ml Vial) 4 mg IVPUSH Q8H PRN PRN Reason: Nausea and Vomiting Pantoprazole Sodium (Pantoprazole Sodium 40 Mg/10 Ml Vial) 40 mg IVPUSH BID@0630,1630 [facility] Sodium Chloride (0.9 % Sodium Chloride Flush 3 Ml Syringe) 3 ml IVFLUSH QSHIFT [facility] Home Medications ?Medication ?Instructions ?Recorded ?Confirmed ?Last Taken ?Type cholecalciferol (vitamin D3) 125 125 mcg PO DAILY 01/05/22 09/30/23 09/22/22 History mcg (5,000 unit) capsule multivitamin 1 tab PO DAILY 04/08/22 09/30/23 09/22/22 History lorazepam 0.5 mg tablet 0.5 mg PO BEDTIME PRN Anxiety 09/23/22 09/30/23 Unknown History Physical Exam Vital Signs and Narrative: Vital Signs: Last Vital Signs Temp 98.4 F 02/13/24 03:46 Pulse 100 02/13/24 03:46 Resp 16 02/13/24 03:46 BP 130/81 02/13/24 03:46 Pulse Ox 97 02/13/24 03:46 O2 Del Method Room Air 02/13/24 03:46 BMI result Body Mass Index 25.6 General: AOx3, no acute distress Resp: CTA bilaterally CVS: S1, S2, RRR GI: hypoactive BS, mild generalized tenderness, no distention Skin: Warm, dry Extremities: No LE edema Psych: Appropriate affect Const: General: No confusion Orientation/consciousness: No confusion Neuro: General: No confusion Results Labs 02/12/24 23:05 02/12/24 23:05 Labs: Laboratory Results - last 24 hr 02/12/24 02/13/24 23:05 00:40 MCV 97.6 MCH 33.9 H MCHC 34.8 RDW 13.4 Plt Count 216 MPV 8.5 L Immature Gran % (Auto) 0.2 Neut % (Auto) 71.6 Lymph % (Auto) 18.1 L [place] % (Auto) 9.3 Eos % (Auto) 0.6 Baso % (Auto) 0.2 Lymph # (Auto) 1.0 L [place] # (Auto) 0.5 Eos # (Auto) 0.0 Baso # (Auto) 0.0 Abs Immat Gran (auto) 0.01 Absolute Neuts (auto) 3.9 Absolute Nucleated RBC 0.000 Nucleated RBC % (auto) 0.0 ESR 86 H Anion Gap 11 L Estim Creat Clear Calc 58.2 Estimated GFR > 60 Random Glucose 86 Calcium 8.9 Total Bilirubin 0.4 AST 70 H ALT 62 H Alkaline Phosphatase 110 Total Protein 7.9 Albumin 3.6 Lipase 22 Urine Color Yellow Urine Appearance Clear Urine pH 6.0 Ur Specific [place] 1.010 Urine Protein Negative Urine Glucose (UA) Negative Urine Ketones Negative Urine Blood Trace H Urine Nitrite Negative Ur Leukocyte Esterase Negative Urine RBC 0-2 Urine WBC 0-5 Ur Squamous Epith Cells 0-2 Urine Bacteria None Seen Hyaline Casts 0-2 Imaging Radiologist's Impressions: Impressions Chest X-Ray 02/12/24 23:10 IMPRESSION: Redemonstration of mild to moderate diffuse increased interstitial markings/interstitial coarsening and vascular congestion similar to prior. This may all be chronic however a component of interstitial edema is considered. Electronically signed by: Juwan Ott MD 02/13/2024 02:06 AM [facility] Assessment and Plan (1) GI bleed: Status: Acute (2) Abdominal pain: Status: Acute (3) Anemia: Status: Acute (4) History of colon cancer: Status: Chronic (5) Nausea and vomiting: Status: Acute Plan Patient is a 73-year-old female with a past medical history significant for combined asthma/COPD, radiation proctitis, colon cancer (s/p partial colectomy, last colonoscopy 2 months ago), hemochromatosis, vaginal cancer (s/p radiation) and history of small-bowel obstruction (s/p resesction), who presented to the ED with rectal bleeding, specifically dark clots for the past few days, worsening. GI bleed/abd pain/anemia/hx colon ca - last colonoscopy 2 months ago, likely proctitis - hemoglobin 11.3, no need for transfusion at this time - CTA pending, no obvious bleed on wet read from ED provider - CRISTAL negloive - pantoprazole 40mg BID - NPO - GI consult - morphine PRN for abd pain, zofran PRN for nausea - admit to med surg - monitor CBC combined asthma/COPD - no acute exacerbation - continue inhalers full code VTE prophy: pneumoboots Patient with acute GI bleed with abdominal pain and history of colon cancer requiring admission for further workup, monitoring and pain management for at least 2 midnights stay. Quality Stroke Does the patient have a stroke diagnosis?: No VTE Prior VTE?: No VTE Risk Level:: Medical - moderate - high VTE Device Contraindication: N/A - Device Ordered VTE Drug Contraindication: Treatment Not Indicated
[2024-02-13] MEDS: Pantoprazole Sodium 40 MG/10 ML VIAL IVPUSH ×2 (06:30→16:52)
--- NOTE | 2024-02-13 07:28 | PM.EVENT ---
Event Note Date of Service: 02/13/24 Event Note: 73-year-old female with a past medical history significant for COPD, radiation proctitis, colon cancer (s/p partial colectomy, last colonoscopy 2 months ago), hemochromatosis, vaginal cancer (s/p radiation) and history of small-bowel obstruction (s/p resesction), who presented to the ED with rectal bleeding, specifically dark clots for the past few days, worsening. Complaining of persistent abdominal pain localized to mid abdomen and passing dark black clots that comes out with coughing. On examination abdomen soft, nondistended, bowel sounds audible Acute GI bleed/abd pain/anemia/hx colon ca - last colonoscopy 2 months ago, status post radiation for vaginal cancer -likely due to proctitis, CT abdomen showed rectal wall thickening and hypervascular distal rectum without definite contrast extravasation, retained stools throughout the colon - no leukocytosis, stable hematocrit - continue IV pantoprazole 40mg BID - case discussed with Dr. Whiting she recommend clear liquid diet, NPO after midnight and Fleet enema at a.m. - morphine PRN for abd pain, zofran PRN for nausea -follow CBC and electrolytes COPD - no acute exacerbation - continue inhalers Mood disorder continue anxiolytics. Med rec. done full code VTE prophy: pneumoboots Patient with acute GI bleed with abdominal pain and history of colon cancer requiring admission for further workup, monitoring and pain management for at least 2 midnights stay. Time Spent With Patient Time: Total time managing care of this patient today ____ minutes.
--- NOTE | 2024-02-13 09:02 | PC.NURSE ---
pt is alert and oriented, skin pwd, respirations even and unlabored, ls clear, pt is reporting abd pain that starts on left upper abd pain and travels down the abd and across to the right side and the back, pt reports just going to the bathroom and passing more clots/blood
--- NOTE | 2024-02-13 09:30 | PHA.MEDREC ---
Pharmacy Consult ? Medication Reconciliation Pharmacy has completed the medication reconciliation. Spoke to patient and confirmed medication list. Patient said she no longer takes docusate nor metoprolol (stopped about a year ago). For hydroxychloroquine, she only takes 200 mg daily. For hydrocodone/apap 5 mg/325 mg, she takes half a tablet qid prn severe pain (last dose 4 days ago). For lorazepam 1mg, she takes half a tablet bid in the morning and at noon, and 1 tablet at bedtime prn. Last dose of maintenance meds was on saturday02/11/24.
--- NOTE | 2024-02-13 10:00 | P.CNGI_ITS ---
History of Present Illness Data of Consult Service Date: 02/13/24 Requesting physician: Meredith Vasuqez Primary Care Provider: Unknown Physician HPI Reason for consult: Rectal bleeding This is a 73-year-old female with past medical history of rectal adenocarcinoma status post LAR in 1985 with adjuvant radiation, also with history vaginal carcinoma treated with radiation therapy around 2014 in [facility], c/b radiation proctitis last tx with [facility] 06/2022 (Dr Oconnor) hemochromatosis with H63D homozygosity, multiple small-bowel obstructions, conservatively managed, thought to be due to adhesive disease, who presents to the hospital for abdominal pain and rectal bleeding. History was obtained from the patient, who states that a few days after she had the colonoscopy at [facility] (Dr. Mejia), she started noticing overt bleeding which she describes as small red to maroon clots with or without stooling. This was assoc with lower abd cramping. Over the past week she has also developed LUQ pain with nausea and vomiting. No hematemesis but does note the stool color to be black occasionally. Plan was outpatient evaluation through her GI however pt states she was unable to wait till her appt and therefore came to ER. Laboratory Tests 02/12/24 23:05 RBC 3.33 L Hgb 11.3 L Hct 32.5 L Plt Count 216 BUN 19 H Creatinine 0.73 AST 70 H ALT 62 H Review of Systems 2 Review of Systems: Yes all other systems are reviewed and are negative PMFSH Past Medical History Medical History (Updated 02/13/24 @ 15:56 by Dary Whiting MD) Abdominal pain Bronchiectasis Shoulder pain, bilateral UTI (urinary tract infection) Interstitial lung disease Arthralgia Dizziness Dysuria Acute sinusitis Periumbilical abdominal pain Flank pain Left flank pain Annual physical exam IBS (irritable bowel syndrome) Gastritis Cough Fatigue Scabies Post covid-19 condition, unspecified Elevated LFTs Diarrhea Sinusitis Bronchitis Well woman exam COPD (chronic obstructive pulmonary disease) Radiation proctitis Radiation enteritis Postmenopausal bleeding History of colon cancer SBO (small bowel obstruction) Rectal bleeding Asthma Vertigo Seasonal allergies Hyperglycemia Palpitation Hemochromatosis Tubular adenoma Colon cancer Vaginal cancer Family History Family History Father Dementia GSW (gunshot wound) CAD (coronary artery disease) Mother GSW (gunshot wound) Family/Other Diabetes mellitus Brother CAD (coronary artery disease) Sister Multiple sclerosis Sister Rheumatoid arthritis Sister Rheumatoid arthritis Surgical History Surgical History History of cholecystectomy History of esophagogastroduodenoscopy (EGD) H/O colonoscopy H/O colectomy Social History Social History Household Members: None Household Members Other:: aunt a 96 years old Housing: House Do you presently have visiting nurse or other home services: No Alcohol intake: never Patient Tobacco Use Status: Never used Tobacco e-Cigarette/Vaping Use: Never Used Second Hand Smoke Exposure: No Advance Directives Date on File: 04/09/22 service: No Current occupational status: unemployed Sexual orientation: Straight/Heterosexual Gender identity: Female Meds Allergies Allergy/AdvReac Type Severity Reaction Status Date / Time ciprofloxacin [From Cipro] AdvReac Intermediate Facial Verified 02/12/24 22:57 redness, lip swelling Active Medications: Current Medications Acetaminophen (Acetaminophen 325 Mg Tablet) 650 mg PO Q6H PRN PRN Reason: Pain, Mild (Pain Scale 1-3), fever or headache Calcium Carbonate (Calcium Carbonate 750 Mg Tab.Chew) 750 mg PO Q4H PRN PRN Reason: Heartburn Lactated Ringer's (Lr) 1,000 mls @ 100 mls/hr IVCONT .Q10H [facility] Last Admin: 02/13/24 04:35 Dose: 100 mls/hr Magnesium Hydroxide (Milk Of Magnesia 30 Ml Oral.Susp) 30 ml PO DAILY PRN PRN Reason: Constipation Melatonin (Melatonin 3 Mg Tablet) 6 mg PO BEDTIME PRN PRN Reason: Insomnia Morphine Sulfate (Morphine Sulfate 4 Mg/Ml Cartridge) 4 mg IVPUSH Q4H PRN; Protocol PRN Reason: Pain, Severe (Pain Scale 7-10) Last Admin: 02/13/24 08:51 Dose: 4 mg Ondansetron HCl (Ondansetron Hcl 4 Mg/2 Ml Vial) 4 mg IVPUSH Q8H PRN PRN Reason: Nausea and Vomiting Pantoprazole Sodium (Pantoprazole Sodium 40 Mg/10 Ml Vial) 40 mg IVPUSH BID@0630,1630 [facility] Last Admin: 02/13/24 06:30 Dose: 40 mg Sodium Chloride (0.9 % Sodium Chloride Flush 3 Ml Syringe) 3 ml IVFLUSH QSHIFT [facility] Last Admin: 02/13/24 08:52 Dose: Not Given Home Medications ?Medication ?Instructions ?Recorded ?Confirmed ?Last Taken ?Type cholecalciferol (vitamin D3) 125 125 mcg PO DAILY 01/05/22 02/13/24 02/11/24 History mcg (5,000 unit) capsule multivitamin 1 tab PO DAILY 04/08/22 02/13/24 02/11/24 History albuterol sulfate 90 mcg/actuation 2 puff inhalation Q4H PRN 02/13/24 02/13/24 Unknown History aerosol inhaler (Ventolin HFA) shortness of breath or wheezing hydrocodone 5 mg-acetaminophen 325 0.5 tab PO QID PRN severe pain 02/13/24 02/13/24 02/10/24 History mg tablet hydroxychloroquine 200 mg tablet 200 mg PO DAILY 02/13/24 02/13/24 02/11/24 History lorazepam 1 mg tablet 0.5 mg PO BID@0900,1200 PRN Anxiety 02/13/24 02/13/24 Unknown History lorazepam 1 mg tablet 1 mg PO BEDTIME PRN Anxiety 02/13/24 02/13/24 Unknown History Physical Exam 2 Vital Signs: Vital Signs: Last Vital Signs Temp 98.1 F 02/13/24 08:37 Pulse 83 02/13/24 08:37 Resp 18 02/13/24 08:37 BP 103/44 L 02/13/24 08:37 Pulse Ox 98 02/13/24 08:37 O2 Del Method Room Air 02/13/24 08:37 BMI result Body Mass Index 25.6 Elderly female NAD Abd soft, nondistended, diffuse tenderness, no guarding Results Labs 02/12/24 23:05 02/12/24 23:05 Labs: Short CBC 02/12/24 Range/Units 23:05 WBC 5.4 (4.8-10.8) X10*3/uL Hgb 11.3 L (12.0-16.0) g/dl Hct 32.5 L (37.0-47.0) % Plt Count 216 (160-400) X10*3/uL BMP 02/12/24 23:05 Sodium 137 Potassium 4.5 Chloride 108 Carbon Dioxide 23 BUN 19 H Creatinine 0.73 Calcium 8.9 Liver Function 02/12/24 Range/Units 23:05 Total Bilirubin 0.4 (0.0-1.0) mg/dL AST 70 H (5-31) U/L ALT 62 H (0-31) U/L Alkaline Phosphatase 110 (39-117) U/L Albumin 3.6 (3.5-5.0) g/dL Urine 02/13/24 Range/Units 00:40 Urine Color Yellow Urine Appearance Clear Urine pH 6.0 (5.0-9.0) Ur Specific [place] 1.010 (1.005-1.025) Urine Protein Negative (Neg-Trace) mg/dL Urine Glucose (UA) Negative (Negative) mg/dL Imaging CT scan - abdomen: Radiologist's impression: 1. There is rectal wall thickening. The distal rectum appears to be hypervascular without definitive contrast extravasation. This could be seen in the setting of proctitis. 2. There is retained stool throughout the colon. 3. Irregular contour of the liver suggesting underlying cirrhosis. 4. Status post cholecystectomy with persistent dilatation of the common bile duct. Assessment and Plan (1) Anemia: Status: Acute (2) Radiation proctitis: Status: Acute (3) Acute lower gastrointestinal bleeding: Status: Acute (4) Dilated bile duct: Status: Acute (5) LUQ abdominal pain: Status: Acute Plan 1. Presenting with a combination of upper GI symptoms as well as lower GI bleeding. Differentials include gastritis/duodenitis/PUD. Has known history of radiation proctitis. Plan: -ensure at least x2 peripheral IVs at all times. -monitor H/H BID -can have clear liquid diet today -EGD and flexible sigmoidoscopy tomorrow -we will also obtain colonoscopy records from [facility] -please keep NPO after midnight. Fleet enema to be given tomorrow morning. 2. Incidentally noted on chart review was dilated bile duct to 15 mm. LFTs are non-obstructive, and this finding is chronic dating back to at least 2020. However pt should discuss role of MRI/MRCP with her GI as outpatient. Thank you for allowing me to participate in her care. Please do not hesitate to reach out for any questions or concerns. Procedures Date of Service Date of Service: 02/13/24
--- NOTE | 2024-02-13 10:43 | MHC.CM.PN ---
Met with patient in regards to discharge planning. Patient lives alone, occasionally uses a walker for mobility, and had no services prior to coming to the hospital. PCP verified as Priscilla Isabel at [facility] in [place]. HCP verified to be on file. Patient typically is able to drive herself. However she has been asking friends to assist d/t recent dizziness. IMM explained and signed. Friend will transport patient home when medically stable. Continue to monitor for d/c needs.
[2024-02-13 16:10] LABS: Hematocrit 30.4 % (37.0-47.0); Hemoglobin 10.2 g/dl (12.0-16.0); Mean Corpuscular HGB Conc 33.6 g/dl (31.0-35.0); Mean Corpuscular Hemoglobin 33.8 pg (27.0-33.0); Mean Corpuscular Volume 100.7 fL (80.0-98.0); Mean Platelet Volume 8.3 fL (9.4-12.3); Platelet Count 173 X10*3/uL (160-400); Red Blood Count 3.02 X10*6/uL (4.20-5.50); Red Cell Distribution Width 13.8 % (11.0-16.0); White Blood Count 5.7 X10*3/uL (4.8-10.8)
[2024-02-13] MEDS: 0.9 % Sodium Chloride Flush 3 ML SYRINGE IVFLUSH (19:39)
[2024-02-14] VITALS (9 sets, daily range): BP systolic 101–130; BP diastolic 53–89; PULSE 77–86; RESP 16–20; TEMP 36.3–37.3; O2SAT 92–98
[2024-02-14] MEDS: Morphine Sulfate 4 MG/ML CARTRIDGE IVPUSH ×4 (03:53→21:00)
[2024-02-14 05:45] LABS: MANUAL DIFF FLAG NO
[2024-02-14 05:48] LABS: Basophils Percent Auto 0.5 % (0-2); Eosinophils Absolute Auto 0.1 X10*3/uL (0.0-0.4); Eosinophils Percent Auto 2.8 % (0-4); Hematocrit 30.8 % (37.0-47.0); Hemoglobin 10.1 g/dl (12.0-16.0); Imm Gran Abs Auto 0.01 X10*3/uL (0.00-0.03); Imm Gran Pct Auto 0.2 % (0.0-0.4); Lymphocytes Absolute Auto 1.2 X10*3/uL (1.2-4.9); Mean Corpuscular HGB Conc 32.8 g/dl (31.0-35.0); Mean Corpuscular Hemoglobin 32.9 pg (27.0-33.0); Mean Corpuscular Volume 100.3 fL (80.0-98.0); Mean Platelet Volume 8.7 fL (9.4-12.3); Monocytes Absolute Auto 0.5 X10*3/uL (0.1-1.2); Monocytes Percent Auto 10.7 % (2-11); Neutrophils Absolute Auto 2.5 x10*3/uL (2.0-8.3); Neutrophils Percent Auto 58.8 % (45-73); Platelet Count 189 X10*3/uL (160-400); Red Blood Count 3.07 X10*6/uL (4.20-5.50); Red Cell Distribution Width 13.5 % (11.0-16.0); White Blood Count 4.3 X10*3/uL (4.8-10.8)
[2024-02-14 06:04] LABS: Anion Gap 11 (12-20); Blood Urea Nitrogen 13 mg/dL (9-16); Calcium 8.5 mg/dL (8.4-10.2); Carbon Dioxide 25 mmol/L (22-29); Chloride 104 mmol/L (96-108); Creatinine Clr Calc Pharmacy 58.9; Estimated Glomerular Filt Rate > 60; Glucose Random 80 mg/dL (60-115); Potassium 4.2 mmol/L (3.3-5.1); Sodium 136 mmol/L (135-145)
[2024-02-14] MEDS: Pantoprazole Sodium 40 MG/10 ML VIAL IVPUSH ×2 (06:09→15:56)
[2024-02-14] MEDS: Lactated Ringers 1,000 ML 100 ML IVCONT ×2 (06:15→15:56)
[2024-02-14] MEDS: Sodium Phosphate,Mono-Dibasic 133 ML ENEMA PR ×2 (11:01→14:36)
--- NOTE | 2024-02-14 11:20 | P.PNIM_ITS ---
Subjective Subjective Date of Service: 02/14/24 Interval History: ongoing periumbilical pain and dark red clots per rectum no N/V Review of Systems Review of Systems: Yes all other systems are reviewed and are negative Physical Exam 2 Vital Signs: Vital Signs: Last Vital Signs Temp 98.5 F 02/14/24 07:22 Pulse 77 02/14/24 07:22 Resp 16 02/14/24 07:22 BP 108/58 L 02/14/24 07:22 Pulse Ox 96 02/14/24 07:22 O2 Del Method Room Air 02/14/24 07:22 BMI result Body Mass Index 28.6 Gen: in no acute distress HEENT: sclera anicteric, moist mucus membranes Neck: supple Lungs: clear to auscultation bilaterally Heart: regular rate and rhythm, no murmurs Abd: soft, tender mid-abd, non-distended Ext: no edema Skin: warm/well-perfused Neuro: alert and oriented x3, no focal findings Psych: appropriate affect Objective Data Active Medications Acetaminophen (Acetaminophen 325 Mg Tablet) 650 mg PO Q6H PRN PRN Reason: Pain, Mild (Pain Scale 1-3), fever or headache Albuterol Sulfate (Albuterol Sulfate 90 Mcg 8 Gm Inhaler) 2 puff INHALE Q4H PRN PRN Reason: shortness of breath or wheezing Calcium Carbonate (Calcium Carbonate 750 Mg Tab.Chew) 750 mg PO Q4H PRN PRN Reason: Heartburn Fluticasone/Vilanterol (Fluticasone/Vilanterol 200/25 Blst.W.Dev) 1 puff INHALE DAILY [facility] Last Admin: 02/14/24 07:37 Dose: Not Given Documented By: RUPINDER Non-Admin Reason: Med Not Available Lactated Ringer's (Lr) 1,000 mls @ 100 mls/hr IVCONT .Q10H [facility] Last Admin: 02/14/24 06:15 Dose: 100 mls/hr Documented By: CHYNA Lorazepam (Lorazepam 1 Mg Tablet) 1 mg PO BEDTIME PRN PRN Reason: Anxiety Lorazepam (Lorazepam 0.5 Mg Tablet) 0.5 mg PO BID@0900,1200 PRN PRN Reason: Anxiety Magnesium Hydroxide (Milk Of Magnesia 30 Ml Oral.Susp) 30 ml PO DAILY PRN PRN Reason: Constipation Melatonin (Melatonin 3 Mg Tablet) 6 mg PO BEDTIME PRN PRN Reason: Insomnia Morphine Sulfate (Morphine Sulfate 4 Mg/Ml Cartridge) 4 mg IVPUSH Q4H PRN; Protocol PRN Reason: Pain, Severe (Pain Scale 7-10) Last Admin: 02/14/24 08:53 Dose: 4 mg Documented By: ANNETTE Ondansetron HCl (Ondansetron Hcl 4 Mg/2 Ml Vial) 4 mg IVPUSH Q8H PRN PRN Reason: Nausea and Vomiting Last Admin: 02/13/24 19:38 Dose: 4 mg Documented By: CHYNA Pantoprazole Sodium (Pantoprazole Sodium 40 Mg/10 Ml Vial) 40 mg IVPUSH BID@0630,1630 [facility] Last Admin: 02/14/24 06:09 Dose: 40 mg Documented By: CHYNA Sodium Biphosphate/Sodium Phosphate (Sodium Phosphate,[place]-Dibasic 133 Ml Enema) 133 ml [place] ONCE [facility] Last Admin: 02/14/24 11:01 Dose: 133 ml Documented By: ANNETTE Sodium Chloride (0.9 % Sodium Chloride Flush 3 Ml Syringe) 3 ml IVFLUSH QSHIFT [facility] Last Admin: 02/14/24 07:18 Dose: Not Given Documented By: ANNETTE Non-Admin Reason: IV Running Labs 02/14/24 05:07 02/14/24 05:07 Labs: Laboratory Results - last 24 hr 02/13/24 02/14/24 16:01 05:07 MCV 100.7 H 100.3 H MCH 33.8 H 32.9 MCHC 33.6 32.8 RDW 13.8 13.5 Plt Count 173 189 MPV 8.3 L 8.7 L Immature Gran % (Auto) 0.2 Neut % (Auto) 58.8 Lymph % (Auto) 27.0 [place] % (Auto) 10.7 Eos % (Auto) 2.8 Baso % (Auto) 0.5 Lymph # (Auto) 1.2 [place] # (Auto) 0.5 Eos # (Auto) 0.1 Baso # (Auto) 0.0 Abs Immat Gran (auto) 0.01 Absolute Neuts (auto) 2.5 Absolute Nucleated RBC 0.000 0.000 Nucleated RBC % (auto) 0.0 0.0 Anion Gap 11 L Estim Creat Clear Calc 58.9 Estimated GFR > 60 Random Glucose 80 Calcium 8.5 Assessment and Plan (1) Acute lower gastrointestinal bleeding: Status: Acute Plan d2 73yo F with asthma/COPD, colon CA s/p partial colectomy, hemochromatosis, vaginal CA s/p XRT, hx SBO s/p resection presenting with acute/chronic bleeding per rectum that started intermittently since last C-scope 2mo ago but has become much worse and now associated with generalized abdominal cramping acute/chronic GI bleeding - CT with proctitis - continue IV PPI - GI consulted, plan EGD + C-scope today after am Fleet enema - monitor CBC COPD without acute exac - continue inhalers mood disorder - continue prn lorazepam VTE ppx - SCDs, no heparin given GIB dispo - eventual home In my clinical judgment, the patient requires continued inpatient hospitalization for the following reasons: active GI bleeding Total time managing care of this patient today: 40 minutes. Quality Stroke Does the patient have a stroke diagnosis?: No VTE Prior VTE?: No VTE Risk Level:: Medical - moderate - high VTE Device Contraindication: N/A - Device Ordered VTE Drug Contraindication: Treatment Not Indicated
--- NOTE | 2024-02-14 11:28 | MHC.CM.PN ---
IMM 02/13/24 Per MD rounds no discharge today. Patient is planned for scope today [facility] Home self-care. Patient will arrange for transportation home.
--- NOTE | 2024-02-14 13:24 | HO.ANESPROP2 ---
[facility] Active Problems Active Problems: All Active Problems LUQ abdominal pain (Acute) Dilated bile duct (Acute) Acute lower gastrointestinal bleeding (Acute) History of colon cancer (Chronic) Abdominal pain (Acute) GI bleed (Acute) Long-term use of hydroxychloroquine (Acute) Degenerative cervical disc (Acute) Sjogren syndrome (Acute) Anemia (Acute) Bronchiectasis (Acute) H/O colonoscopy (Acute) COPD (chronic obstructive pulmonary disease) (Acute) Radiation proctitis (Acute) Right arm numbness (Acute) SVETLANA positive (Acute) Rotator cuff arthropathy of both shoulders (Acute) Degenerative disc disease, lumbar (Acute) Osteoarthritis of hands, bilateral (Acute) Bronchitis (Acute) Tubular adenoma of colon (Acute) Weight loss, abnormal (Acute) Vitamin D deficiency (Acute) ASCUS with positive high risk HPV cervical (Acute) Sinusitis (Acute) Osteopenia (Acute) Rosacea (Acute) Fatigue (Acute) Low vitamin D level (Acute) Bile salt-induced diarrhea (Acute) HPV test positive (Acute) Vertigo (Acute) Elevated LDH (Acute) Elevated rheumatoid factor (Acute) Elevated antinuclear antibody (SVETLANA) level (Acute) Hyperglycemia (Acute) Left-sided thoracic back pain (Acute) Hemochromatosis (Acute) Hematuria (Acute) Nausea and vomiting (Acute) Weight loss, abnormal (Acute) History of small bowel obstruction (Acute) GERD with esophagitis (Acute) Postmenopausal bleeding (Acute) Past Medical History Medical History Abdominal pain Bronchiectasis Shoulder pain, bilateral UTI (urinary tract infection) Interstitial lung disease Arthralgia Dizziness Dysuria Acute sinusitis Periumbilical abdominal pain Flank pain Left flank pain Annual physical exam IBS (irritable bowel syndrome) Gastritis Cough Fatigue Scabies Post covid-19 condition, unspecified Elevated LFTs Diarrhea Sinusitis Bronchitis Well woman exam COPD (chronic obstructive pulmonary disease) Radiation proctitis Radiation enteritis Postmenopausal bleeding History of colon cancer SBO (small bowel obstruction) Rectal bleeding Asthma Vertigo Seasonal allergies Hyperglycemia Palpitation Hemochromatosis Tubular adenoma Colon cancer Vaginal cancer Functional capacity: independent ambulation Family History Family History Father Dementia GSW (gunshot wound) CAD (coronary artery disease) Mother GSW (gunshot wound) Family/Other Diabetes mellitus Brother CAD (coronary artery disease) Sister Multiple sclerosis Sister Rheumatoid arthritis Sister Rheumatoid arthritis Family history of problems with anesthesia: No Surgical History Surgical History History of cholecystectomy History of esophagogastroduodenoscopy (EGD) H/O colonoscopy H/O colectomy History of Problems with Anesthesia: No Social History Social History Household Members: None Household Members Other:: aunt a 96 years old Housing: House Are you a primary healthcare liaison to a significant other at home: No Do you presently have visiting nurse or other home services: No Alcohol intake: never Patient Tobacco Use Status: Never used Tobacco e-Cigarette/Vaping Use: Never Used Second Hand Smoke Exposure: No Advance Directives Date on File: 04/09/22 service: No Current occupational status: unemployed Sexual orientation: Straight/Heterosexual Gender identity: Female Meds Allergies Allergy/AdvReac Type Severity Reaction Status Date / Time ciprofloxacin [From Cipro] AdvReac Intermediate Facial Verified 02/14/24 12:53 redness, lip swelling Active Medications: Current Medications Acetaminophen (Acetaminophen 325 Mg Tablet) 650 mg PO Q6H PRN PRN Reason: Pain, Mild (Pain Scale 1-3), fever or headache Albuterol Sulfate (Albuterol Sulfate 90 Mcg 8 Gm Inhaler) 2 puff INHALE Q4H PRN PRN Reason: shortness of breath or wheezing Calcium Carbonate (Calcium Carbonate 750 Mg Tab.Chew) 750 mg PO Q4H PRN PRN Reason: Heartburn Fluticasone/Vilanterol (Fluticasone/Vilanterol 200/25 Blst.W.Dev) 1 puff INHALE DAILY [facility] Last Admin: 02/14/24 07:37 Dose: Not Given Lactated Ringer's (Lr) 1,000 mls @ 100 mls/hr IVCONT .Q10H [facility] Last Admin: 02/14/24 06:15 Dose: 100 mls/hr Lorazepam (Lorazepam 1 Mg Tablet) 1 mg PO BEDTIME PRN PRN Reason: Anxiety Lorazepam (Lorazepam 0.5 Mg Tablet) 0.5 mg PO BID@0900,1200 PRN PRN Reason: Anxiety Magnesium Hydroxide (Milk Of Magnesia 30 Ml Oral.Susp) 30 ml PO DAILY PRN PRN Reason: Constipation Melatonin (Melatonin 3 Mg Tablet) 6 mg PO BEDTIME PRN PRN Reason: Insomnia Morphine Sulfate (Morphine Sulfate 4 Mg/Ml Cartridge) 4 mg IVPUSH Q4H PRN; Protocol PRN Reason: Pain, Severe (Pain Scale 7-10) Last Admin: 02/14/24 08:53 Dose: 4 mg Ondansetron HCl (Ondansetron Hcl 4 Mg/2 Ml Vial) 4 mg IVPUSH Q8H PRN PRN Reason: Nausea and Vomiting Last Admin: 02/13/24 19:38 Dose: 4 mg Pantoprazole Sodium (Pantoprazole Sodium 40 Mg/10 Ml Vial) 40 mg IVPUSH BID@0630,1630 [facility] Last Admin: 02/14/24 06:09 Dose: 40 mg Sodium Biphosphate/Sodium Phosphate (Sodium Phosphate,[place]-Dibasic 133 Ml Enema) 133 ml [place] ONCE [facility] Last Admin: 02/14/24 11:01 Dose: 133 ml Sodium Chloride (0.9 % Sodium Chloride Flush 3 Ml Syringe) 3 ml IVFLUSH QSHIFT [facility] Last Admin: 02/14/24 07:18 Dose: Not Given Home Medications ?Medication ?Instructions ?Recorded ?Confirmed ?Last Taken ?Type cholecalciferol (vitamin D3) 125 125 mcg PO DAILY 01/05/22 02/13/24 02/11/24 History mcg (5,000 unit) capsule multivitamin 1 tab PO DAILY 04/08/22 02/13/24 02/11/24 History albuterol sulfate 90 mcg/actuation 2 puff inhalation Q4H PRN 02/13/24 02/13/24 Unknown History aerosol inhaler (Ventolin HFA) shortness of breath or wheezing hydrocodone 5 mg-acetaminophen 325 0.5 tab PO QID PRN severe pain 02/13/24 02/13/24 02/10/24 History mg tablet hydroxychloroquine 200 mg tablet 200 mg PO DAILY 02/13/24 02/13/24 02/11/24 History lorazepam 1 mg tablet 0.5 mg PO BID@0900,1200 PRN Anxiety 02/13/24 02/13/24 Unknown History lorazepam 1 mg tablet 1 mg PO BEDTIME PRN Anxiety 02/13/24 02/13/24 Unknown History Exam Height,Weight and Vital Signs: Height 5 ft 2 in Weight 70.9 kg Last Vital Signs Temp 99.2 F 02/14/24 13:11 Pulse 83 02/14/24 13:11 Resp 18 02/14/24 13:11 BP 130/89 02/14/24 13:11 Pulse Ox 97 02/14/24 13:11 O2 Del Method Room Air 02/14/24 13:11 Pertinent Lab Results Pertinent Lab Results: Laboratory Tests 02/12/24 02/13/24 02/13/24 23:05 00:40 16:01 WBC 5.4 5.7 RBC 3.33 L 3.02 L Hgb 11.3 L 10.2 L Hct 32.5 L 30.4 L MCV 97.6 100.7 H MCH 33.9 H 33.8 H MCHC 34.8 33.6 RDW 13.4 13.8 Plt Count 216 173 MPV 8.5 L 8.3 L Immature Gran % (Auto) 0.2 Neut % (Auto) 71.6 Lymph % (Auto) 18.1 L [place] % (Auto) 9.3 Eos % (Auto) 0.6 Baso % (Auto) 0.2 Lymph # (Auto) 1.0 L [place] # (Auto) 0.5 Eos # (Auto) 0.0 Baso # (Auto) 0.0 Abs Immat Gran (auto) 0.01 Absolute Neuts (auto) 3.9 Absolute Nucleated RBC 0.000 0.000 Nucleated RBC % (auto) 0.0 0.0 ESR 86 H Sodium 137 Potassium 4.5 Chloride 108 Carbon Dioxide 23 Anion Gap 11 L BUN 19 H Creatinine 0.73 Estim Creat Clear Calc 58.2 Estimated GFR > 60 Random Glucose 86 Calcium 8.9 Total Bilirubin 0.4 AST 70 H ALT 62 H Alkaline Phosphatase 110 Total Protein 7.9 Albumin 3.6 Lipase 22 Urine Color Yellow Urine Appearance Clear Urine pH 6.0 Ur Specific [place] 1.010 Urine Protein Negative Urine Glucose (UA) Negative Urine Ketones Negative Urine Blood Trace H Urine Nitrite Negative Ur Leukocyte Esterase Negative Urine RBC 0-2 Urine WBC 0-5 Ur Squamous Epith Cells 0-2 Urine Bacteria None Seen Hyaline Casts 0-2 02/14/24 05:07 WBC 4.3 L RBC 3.07 L Hgb 10.1 L Hct 30.8 L MCV 100.3 H MCH 32.9 MCHC 32.8 RDW 13.5 Plt Count 189 MPV 8.7 L Immature Gran % (Auto) 0.2 Neut % (Auto) 58.8 Lymph % (Auto) 27.0 [place] % (Auto) 10.7 Eos % (Auto) 2.8 Baso % (Auto) 0.5 Lymph # (Auto) 1.2 [place] # (Auto) 0.5 Eos # (Auto) 0.1 Baso # (Auto) 0.0 Abs Immat Gran (auto) 0.01 Absolute Neuts (auto) 2.5 Absolute Nucleated RBC 0.000 Nucleated RBC % (auto) 0.0 ESR Sodium 136 Potassium 4.2 Chloride 104 Carbon Dioxide 25 Anion Gap 11 L BUN 13 Creatinine 0.76 Estim Creat Clear Calc 58.9 Estimated GFR > 60 Random Glucose 80 Calcium 8.5 Total Bilirubin AST ALT Alkaline Phosphatase Total Protein Albumin Lipase Urine Color Urine Appearance Urine pH Ur Specific [place] Urine Protein Urine Glucose (UA) Urine Ketones Urine Blood Urine Nitrite Ur Leukocyte Esterase Urine RBC Urine WBC Ur Squamous Epith Cells Urine Bacteria Hyaline Casts Assessment and Plan Assessment Anesthesia Assessment: Anesthesia Plan Discussed and Chart Reviewed Final Anesthetic Review Family History of Problems with Anesthesia: No History of Problems with Anesthesia: No NPO: Yes ASA Class: III Final Preanesthetic Review: Meds/Allgs Chart Reviewed, Consent Obtained/Reviewed and Anes Risks/Benef Reviewed Patient Risk: Intermediate Procedure Risk: Intermediate Anesthetic Plan Anesthetic Plan: MAC: Disposition: Standard PACU
--- NOTE | 2024-02-14 14:42 | MHC.SHP ---
Pre-Procedural Eval Section A - 24 Hr Update-Section A only Date of Service: 02/14/24 The patient is an INPATIENT: Yes The patient has been examined within 24 hours of the surgical procedure. The History & Physical has been completed within 30 days and I have reviewed it.: Yes Section B - Complete if H&P > 30 days Chief Complaint: GI Bleed Allergies: Allergies Allergy/AdvReac Type Severity Reaction Status Date / Time ciprofloxacin [From Cipro] AdvReac Intermediate Facial Verified 02/14/24 12:53 redness, lip swelling Plan Diagnosis/Plan: Unchanged I have reviewed the history and physical and performed a pertinent physical examination on my patient. No changes have occurred unless specified. Time Spent With Patient Time: Total time managing care of this patient today ____ minutes.
--- NOTE | 2024-02-14 16:06 | P.OPN-COLO_ITS ---
Colonoscopy Operative Note Operative Note Date of Service: 02/14/24 Narrative: Procedure: Upper endoscopy and flexible sigmoidoscopy Indication: Abd pain, LGIB Endoscopist: Dary Whiting MD Anesthesia Provider: Mahi Rosa MD Anesthesia type: MAC Instrument: [id number] EGD Procedure:?? The procedure, indications, preparation and potential complications were reviewed with the patient, who indicated understanding and gave written informed consent to proceed. The endoscope was introduced through the mouth, and advanced to the 2nd part of the duodenum. The mucosa was carefully examined on slow withdrawal of the endoscope. The patient tolerated the procedure well. There were no immediate complications.? EGD Findings:? * Esophagus:? Normal esophageal mucosa was noted. The Z-line was at 36 cm. * Stomach:?Erythema and edema in fundus and cardia. Retroflexion was performed in the cardia. Random cold forceps biopsies were taken from the stomach. * Duodenum:? Normal duodenal mucosa. Cold forceps biopsies were taken from the duodenal bulb and 2nd portion of the duodenum to rule out celiac sprue. Colonoscopy Procedure:? The patient was then turned for the colonoscopy. A digital rectal exam was performed which was normal. The gastroscope was then inserted through the anus and advanced through the colon to distal sigmoid colon.?Mucosa was carefully examined under high definition white light as the instrument was slowly withdrawn in a retrograde panoramic fashion. Retroflexion was performed in rectum. The procedure was not difficult. Limitations: No limitations Findings: Mucosa: Scattered angioectasia throughout the rectum with one AVM with adherent clot that started bleeding after the clot was washed off. Using a straight fire catheter, APC was applied to the bleeding AVM as well as other visible AVMs. THe remaining mucosa was normal to the extent examined. Solid stool in distal rectum Protruding lesions: * Large internal hemorrhoids without stigmata of recent bleeding. Impression: 1. Normal esophagus 2. Gastritis (biopsy) 3. 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 Internal hemorrhoids Recommendations:?? * Abd pain likely 2/2 gastritis * Recommend omeprazole or pantoprazole 20 BID PO * LGIB 2/2 RAVE or radiation proctitis * Sucralfate enema: 20 mL of a 10 percent sucralfate suspension in water twice daily * Follow up path results Pictures could not be captured due to faulty endoscopic tower and printer and are being attached below from a digital device.
[2024-02-14] MEDS: ondansetron HCL 4 MG/2 ML VIAL IVPUSH (20:57)
[2024-02-14] MEDS: Sucralfate Oral Suspension 1 GM/10 ML ORAL.SUSP 2 GM PR (21:06)
[2024-02-15] VITALS (8 sets, daily range): BP systolic 98–140; BP diastolic 54–84; PULSE 82–97; RESP 16–20; TEMP 36.8–37.2; O2SAT 94–97
[2024-02-15] MEDS: Lactated Ringers 1,000 ML 100 ML IVCONT (01:16)
[2024-02-15] MEDS: Morphine Sulfate 4 MG/ML CARTRIDGE IVPUSH ×6 (01:17→20:42)
[2024-02-15] MEDS: Lidocaine 4 % Patch ADH..PATCH 1 PATCH TRANSDERMA ×2 (01:33→10:08)
[2024-02-15] MEDS: LORazepam 0.5 MG TABLET PO ×2 (05:35→09:12)
[2024-02-15] MEDS: Pantoprazole Sodium 40 MG/10 ML VIAL IVPUSH ×2 (05:40→15:59)
[2024-02-15 07:47] LABS: Hematocrit 29.1 % (37.0-47.0); Hemoglobin 9.9 g/dl (12.0-16.0); Mean Corpuscular Hemoglobin 33.3 pg (27.0-33.0); Platelet Count 152 X10*3/uL (160-400); Red Blood Count 2.97 X10*6/uL (4.20-5.50); Red Cell Distribution Width 12.9 % (11.0-16.0); White Blood Count 4.7 X10*3/uL (4.8-10.8)
[2024-02-15 08:02] LABS: Anion Gap 11 (12-20); Blood Urea Nitrogen 12 mg/dL (9-16); Calcium 8.2 mg/dL (8.4-10.2); Carbon Dioxide 22 mmol/L (22-29); Chloride 105 mmol/L (96-108); Creatinine Clr Calc Pharmacy 59.8; Estimated Glomerular Filt Rate > 60; Glucose Random 80 mg/dL (60-115); Potassium 3.8 mmol/L (3.3-5.1); Sodium 134 mmol/L (135-145)
[2024-02-15] MEDS: Sucralfate Oral Suspension 1 GM/10 ML ORAL.SUSP 2 GM PR ×2 (08:37→20:46)
[2024-02-15] MEDS: 0.9 % Sodium Chloride Flush 3 ML SYRINGE IVFLUSH ×3 (08:40→20:42)
--- NOTE | 2024-02-15 10:35 | HO.POSTANES ---
Post Anesthesia Evaluation Post Anesthesia Evaluation Date of Service: 02/15/24 Vital Signs: Vital Signs Temp Pulse Resp BP Pulse Ox O2 Del Method 02/15/24 07:59 98.6 F 82 18 104/64 96 Room Air 02/15/24 03:32 98.9 F 87 18 108/55 L 95 Room Air 02/15/24 00:00 98.2 F 86 20 123/68 97 Room Air Anesthesia: Monitored Mental Status: Awake Pain Control: Satisfactory Nausea/Vomiting: None Hydration: Adequate Anesthesia-Related Issues: No Anes. Related Issues
--- NOTE | 2024-02-15 12:26 | P.PNIM_ITS ---
Subjective Subjective Date of Service: 02/15/24 Interval History: continues to c/o epigastric pain and passing blood clots per rectum Review of Systems Review of Systems: Yes all other systems are reviewed and are negative Physical Exam 2 Vital Signs: Vital Signs: Last Vital Signs Temp 98.7 F 02/15/24 11:54 Pulse 82 02/15/24 11:54 Resp 20 02/15/24 11:54 BP 98/54 L 02/15/24 11:54 Pulse Ox 94 02/15/24 11:54 O2 Del Method Room Air 02/15/24 11:54 BMI result Body Mass Index 28.6 Gen: in no acute distress HEENT: sclera anicteric, moist mucus membranes Neck: supple Lungs: clear to auscultation bilaterally Heart: regular rate and rhythm, no murmurs Abd: soft, tender mid-abd, non-distended Ext: no edema Skin: warm/well-perfused Neuro: alert and oriented x3, no focal findings Psych: appropriate affect Objective Data Active Medications Acetaminophen (Acetaminophen 325 Mg Tablet) 650 mg PO Q6H PRN PRN Reason: Pain, Mild (Pain Scale 1-3), fever or headache Albuterol Sulfate (Albuterol Sulfate 90 Mcg 8 Gm Inhaler) 2 puff INHALE Q4H PRN PRN Reason: shortness of breath or wheezing Calcium Carbonate (Calcium Carbonate 750 Mg Tab.Chew) 750 mg PO Q4H PRN PRN Reason: Heartburn Fluticasone/Vilanterol (Fluticasone/Vilanterol 200/25 Blst.W.Dev) 1 puff INHALE DAILY [facility] Last Admin: 02/15/24 07:46 Dose: Not Given Documented By: MELISSA Non-Admin Reason: pharmacy called for med Lidocaine (Lidocaine 4 % Patch Adh..Patch) 1 patch TRANSDERMA DAILY [facility]; Protocol Last Admin: 02/15/24 10:08 Dose: 1 patch Documented By: MELODY Lorazepam (Lorazepam 1 Mg Tablet) 1 mg PO BEDTIME PRN PRN Reason: Anxiety Lorazepam (Lorazepam 0.5 Mg Tablet) 0.5 mg PO BID@0900,1200 PRN PRN Reason: Anxiety Last Admin: 02/15/24 09:12 Dose: 0.5 mg Documented By: MELODY Magnesium Hydroxide (Milk Of Magnesia 30 Ml Oral.Susp) 30 ml PO DAILY PRN PRN Reason: Constipation Melatonin (Melatonin 3 Mg Tablet) 6 mg PO BEDTIME PRN PRN Reason: Insomnia Morphine Sulfate (Morphine Sulfate 4 Mg/Ml Cartridge) 4 mg IVPUSH Q4H PRN; Protocol PRN Reason: Pain, Severe (Pain Scale 7-10) Last Admin: 02/15/24 09:14 Dose: 4 mg Documented By: MELODY Naloxone HCl (Naloxone Hcl 0.4 Mg/Ml Vial) 0.04 mg IVPUSH Q5M PRN PRN Reason: Excessive sedation or RR < 8 Ondansetron HCl (Ondansetron Hcl 4 Mg/2 Ml Vial) 4 mg IVPUSH Q8H PRN PRN Reason: Nausea and Vomiting Last Admin: 02/14/24 20:57 Dose: 4 mg Documented By: TRAMAINE Pantoprazole Sodium (Pantoprazole Sodium 40 Mg/10 Ml Vial) 40 mg IVPUSH BID@0630,1630 [facility] Last Admin: 02/15/24 05:40 Dose: 40 mg Documented By: TRAMAINE Sodium Biphosphate/Sodium Phosphate (Sodium Phosphate,[place]-Dibasic 133 Ml Enema) 133 ml [place] ONCE [facility] Last Admin: 02/14/24 11:01 Dose: 133 ml Documented By: ANNETTE Sodium Chloride (0.9 % Sodium Chloride Flush 3 Ml Syringe) 3 ml IVFLUSH QSHIFT [facility] Last Admin: 02/15/24 08:40 Dose: 3 ml Documented By: MELODY Sucralfate (Sucralfate Oral Suspension 1 Gm/10 Ml Oral.Susp) 2 gm [place] BID [facility] Last Admin: 02/15/24 08:37 Dose: 2 gm Documented By: MELODY Labs 02/15/24 07:20 02/15/24 07:21 Labs: Laboratory Results - last 24 hr 02/15/24 02/15/24 07:20 07:21 MCV 98.0 MCH 33.3 H MCHC 34.0 RDW 12.9 Plt Count 152 L MPV 9.0 L Absolute Nucleated RBC 0.000 Nucleated RBC % (auto) 0.0 Anion Gap 11 L Estim Creat Clear Calc 59.8 Estimated GFR > 60 Random Glucose 80 Calcium 8.2 L Blood Type O Positive Antibody Screen POSITIVE Antibody Identification Cold Antibody Enhanced Crossmatch See Detail Assessment and Plan (1) Acute lower gastrointestinal bleeding: Status: Acute Plan d3 73yo F with asthma/COPD, colon CA s/p partial colectomy, hemochromatosis, vaginal CA s/p XRT, hx SBO s/p resection presenting with acute/chronic bleeding per rectum that started intermittently since last C-scope 2mo ago but has become much worse and now associated with generalized abdominal cramping acute/chronic GI bleeding - CT with proctitis - continue IV PPI - GI consulted, EGD + C-scope 02/[address] Whiting: 1. Normal esophagus 2. Gastritis (biopsy) 3. 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 Internal hemorrhoids - APC was applied to the bleeding AVM as well as other visible AVMs - continue PPI as above - sucralfate enema bid - monitor CBC - advanced diet COPD without acute exac - continue inhalers mood disorder - continue prn lorazepam VTE ppx - SCDs, no heparin given GIB dispo - eventual home In my clinical judgment, the patient requires continued inpatient hospitalization for the following reasons: GI bleeding Total time managing care of this patient today: 40 minutes. Quality Stroke Does the patient have a stroke diagnosis?: No VTE Prior VTE?: No VTE Risk Level:: Medical - moderate - high VTE Device Contraindication: N/A - Device Ordered VTE Drug Contraindication: Treatment Not Indicated
[2024-02-15] MEDS: ondansetron HCL 4 MG/2 ML VIAL IVPUSH (16:00)
[2024-02-15] MEDS: LORazepam 1 MG TABLET PO (23:32)
[2024-02-16] VITALS (9 sets, daily range): BP systolic 111–150; BP diastolic 58–86; PULSE 62–104; RESP 16–20; TEMP 36.4–37.6; O2SAT 92–98
[2024-02-16] MEDS: Morphine Sulfate 4 MG/ML CARTRIDGE IVPUSH ×6 (00:52→22:10)
[2024-02-16] MEDS: Lidocaine 4 % Patch ADH..PATCH 1 PATCH TRANSDERMA ×2 (03:15→08:05)
[2024-02-16] MEDS: Pantoprazole Sodium 40 MG/10 ML VIAL IVPUSH ×2 (05:56→17:05)
[2024-02-16 07:09] LABS: Hematocrit 29.5 % (37.0-47.0); Hemoglobin 9.9 g/dl (12.0-16.0); Mean Corpuscular HGB Conc 33.6 g/dl (31.0-35.0); Mean Corpuscular Hemoglobin 33.6 pg (27.0-33.0); Mean Platelet Volume 9.2 fL (9.4-12.3); Platelet Count 158 X10*3/uL (160-400); Red Blood Count 2.95 X10*6/uL (4.20-5.50); Red Cell Distribution Width 13.1 % (11.0-16.0); White Blood Count 5.2 X10*3/uL (4.8-10.8)
[2024-02-16 07:31] LABS: Anion Gap 11 (12-20); Blood Urea Nitrogen 13 mg/dL (9-16); Calcium 8.5 mg/dL (8.4-10.2); Carbon Dioxide 26 mmol/L (22-29); Chloride 103 mmol/L (96-108); Creatinine Clr Calc Pharmacy 59.8; Estimated Glomerular Filt Rate > 60; Glucose Random 102 mg/dL (60-115); Sodium 136 mmol/L (135-145)
[2024-02-16] MEDS: Fluticasone/Vilanterol 200/25 BLST.W.DEV 1 PUFF INHALE (07:41)
[2024-02-16] MEDS: Sucralfate Oral Suspension 1 GM/10 ML ORAL.SUSP 2 GM PR ×2 (08:00→22:12)
[2024-02-16] MEDS: ondansetron HCL 4 MG/2 ML VIAL IVPUSH (08:01)
[2024-02-16] MEDS: LORazepam 1 MG TABLET PO ×2 (08:01→22:25)
[2024-02-16] MEDS: 0.9 % Sodium Chloride Flush 3 ML SYRINGE IVFLUSH ×3 (08:03→22:12)
--- NOTE | 2024-02-16 10:14 | HO.PM.IMPN ---
Subjective Subjective Date of Service: 02/16/24 Interval History: blood per rectum has decreased markedly but pt continues to c/o intermittent severe epigastric pain limiting PO intake some nausea, no vomiting Review of Systems Review of Systems: Yes all other systems are reviewed and are negative Physical Exam Vital Signs: Vital Signs: Last Vital Signs Temp 98.6 F 02/16/24 07:39 Pulse 62 02/16/24 07:42 Resp 18 02/16/24 07:42 BP 113/58 L 02/16/24 07:39 Pulse Ox 94 02/16/24 07:39 O2 Del Method Room Air 02/16/24 07:39 BMI result Body Mass Index 28.6 Gen: in no acute distress HEENT: sclera anicteric, moist mucus membranes Neck: supple Lungs: clear to auscultation bilaterally Heart: regular rate and rhythm, no murmurs Abd: soft, tender mid-abd + epigastrium, non-distended Ext: no edema Skin: warm/well-perfused Neuro: alert and oriented x3, no focal findings Psych: appropriate affect Objective Data Active Medications Acetaminophen (Acetaminophen 325 Mg Tablet) 650 mg PO Q6H PRN PRN Reason: Pain, Mild (Pain Scale 1-3), fever or headache Albuterol Sulfate (Albuterol Sulfate 90 Mcg 8 Gm Inhaler) 2 puff INHALE Q4H PRN PRN Reason: shortness of breath or wheezing Calcium Carbonate (Calcium Carbonate 750 Mg Tab.Chew) 750 mg PO Q4H PRN PRN Reason: Heartburn Fluticasone/Vilanterol (Fluticasone/Vilanterol 200/25 Blst.W.Dev) 1 puff INHALE DAILY [facility] Last Admin: 02/16/24 07:41 Dose: 1 puff Documented By: DALIA Lidocaine (Lidocaine 4 % Patch Adh..Patch) 1 patch TRANSDERMA DAILY [facility]; Protocol Last Admin: 02/16/24 08:05 Dose: 1 patch Documented By: MELODY Lorazepam (Lorazepam 1 Mg Tablet) 1 mg PO BEDTIME PRN PRN Reason: Anxiety Last Admin: 02/16/24 08:01 Dose: 1 mg Documented By: MELODY Lorazepam (Lorazepam 0.5 Mg Tablet) 0.5 mg PO BID@0900,1200 PRN PRN Reason: Anxiety Last Admin: 02/15/24 09:12 Dose: 0.5 mg Documented By: MELODY Magnesium Hydroxide (Milk Of Magnesia 30 Ml Oral.Susp) 30 ml PO DAILY PRN PRN Reason: Constipation Melatonin (Melatonin 3 Mg Tablet) 6 mg PO BEDTIME PRN PRN Reason: Insomnia Morphine Sulfate (Morphine Sulfate 4 Mg/Ml Cartridge) 4 mg IVPUSH Q4H PRN; Protocol PRN Reason: Pain, Severe (Pain Scale 7-10) Last Admin: 02/16/24 09:54 Dose: 4 mg Documented By: MELODY Naloxone HCl (Naloxone Hcl 0.4 Mg/Ml Vial) 0.04 mg IVPUSH Q5M PRN PRN Reason: Excessive sedation or RR < 8 Ondansetron HCl (Ondansetron Hcl 4 Mg/2 Ml Vial) 4 mg IVPUSH Q8H PRN PRN Reason: Nausea and Vomiting Last Admin: 02/16/24 08:01 Dose: 4 mg Documented By: MELODY Pantoprazole Sodium (Pantoprazole Sodium 40 Mg/10 Ml Vial) 40 mg IVPUSH BID@0630,1630 [facility] Last Admin: 02/16/24 05:56 Dose: 40 mg Documented By: TRAMAINE Sodium Biphosphate/Sodium Phosphate (Sodium Phosphate,[place]-Dibasic 133 Ml Enema) 133 ml RI ONCE [facility] Last Admin: 02/14/24 11:01 Dose: 133 ml Documented By: ANNETTE Sodium Chloride (0.9 % Sodium Chloride Flush 3 Ml Syringe) 3 ml IVFLUSH QSHIFT [facility] Last Admin: 02/16/24 08:03 Dose: 3 ml Documented By: MELODY Sucralfate (Sucralfate Oral Suspension 1 Gm/10 Ml Oral.Susp) 2 gm RI BID [facility] Last Admin: 02/16/24 08:00 Dose: 2 gm Documented By: MELODY Sucralfate (Sucralfate Oral Suspension 1 Gm/10 Ml Oral.Susp) 1 gm PO QIDACHS [facility] Labs 02/16/24 05:44 02/16/24 05:44 Labs: Laboratory Results - last 24 hr 02/15/24 02/16/24 07:20 05:44 MCV 100.0 H MCH 33.6 H MCHC 33.6 RDW 13.1 Plt Count 158 L MPV 9.2 L Absolute Nucleated RBC 0.000 Nucleated RBC % (auto) 0.0 Anion Gap 11 L Estim Creat Clear Calc 59.8 Estimated GFR > 60 Random Glucose 102 Calcium 8.5 Antibody Identification Cold Antibody Enhanced Crossmatch See Detail Assessment and Plan (1) Acute lower gastrointestinal bleeding: Status: Acute Plan d4 73yo F with asthma/COPD, colon CA s/p partial colectomy, hemochromatosis, vaginal CA s/p XRT, hx SBO s/p resection presenting with acute/chronic bleeding per rectum that started intermittently since last C-scope 2mo ago but has become much worse and now associated with generalized abdominal cramping acute/chronic GI bleeding - admission CT with proctitis - continue IV PPI - GI consulted, EGD + C-scope 02/[address] Whiting: 1. Normal esophagus 2. Gastritis (biopsy) 3. 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 Internal hemorrhoids - APC was applied to the bleeding AVM as well as other visible AVMs - continue PPI as above - sucralfate enema bid - monitor CBC - advanced diet COPD without acute exac - continue inhalers mood disorder - continue prn lorazepam VTE ppx - SCDs, no heparin given GIB dispo - eventual home In my clinical judgment, the patient requires continued inpatient hospitalization for the following reasons: GI bleeding Total time managing care of this patient today: 40 minutes. Quality Stroke Does the patient have a stroke diagnosis?: No VTE Prior VTE?: No VTE Risk Level:: Medical - moderate - high VTE Device Contraindication: N/A - Device Ordered VTE Drug Contraindication: Treatment Not Indicated
[2024-02-16 10:29] LABS: Alanine Aminotransferase 42 U/L (0-31); Albumin Level 3.1 g/dL (3.5-5.0); Alkaline Phosphatase 100 U/L (39-117); Anion Gap 11 (12-20); Aspartate Amino Transferase 46 U/L (5-31); Bilirubin Total 0.3 mg/dL (0.0-1.0); Blood Urea Nitrogen 12 mg/dL (9-16); C Reactive Protein 1.33 mg/dL (< or = 0.50); Calcium 8.4 mg/dL (8.4-10.2); Carbon Dioxide 24 mmol/L (22-29); Chloride 105 mmol/L (96-108); Creatinine Clr Calc Pharmacy 63.1; Estimated Glomerular Filt Rate > 60; Glucose Random 111 mg/dL (60-115); Lipase 15 U/L (8-78); Potassium 3.8 mmol/L (3.3-5.1); Sodium 136 mmol/L (135-145); Total Protein 7.1 g/dL (6.5-8.0)
[2024-02-16] MEDS: Diatrizoate Meglumine, Sodium 30 ML SOLUTION PO (11:38)
[2024-02-16] MEDS: Sucralfate Oral Suspension 1 GM/10 ML ORAL.SUSP PO ×3 (11:39→22:12)
[2024-02-16] MEDS: iohexoL 350 MG/ML 75 ML INFUS..BTL 85 ML IV (12:27)
[2024-02-16] MEDS: Docusate Sodium 100 MG CAPSULE 200 MG PO (22:25)
[2024-02-17] VITALS (8 sets, daily range): BP systolic 101–127; BP diastolic 59–73; PULSE 86–98; RESP 18; TEMP 36.3–36.8; O2SAT 95–97
[2024-02-17] MEDS: Morphine Sulfate 4 MG/ML CARTRIDGE IVPUSH ×5 (02:12→20:29)
[2024-02-17] MEDS: Pantoprazole Sodium 40 MG/10 ML VIAL IVPUSH (06:40)
[2024-02-17] MEDS: Sucralfate Oral Suspension 1 GM/10 ML ORAL.SUSP PO ×4 (07:24→20:29)
[2024-02-17] MEDS: 0.9 % Sodium Chloride Flush 3 ML SYRINGE IVFLUSH ×3 (07:24→23:53)
[2024-02-17] MEDS: Lidocaine 4 % Patch ADH..PATCH 1 PATCH TRANSDERMA (07:24)
[2024-02-17] MEDS: Fluticasone/Vilanterol 200/25 BLST.W.DEV 1 PUFF INHALE (07:43)
[2024-02-17] MEDS: Sucralfate Oral Suspension 1 GM/10 ML ORAL.SUSP 2 GM PR ×2 (10:12→20:29)
--- NOTE | 2024-02-17 10:41 | P.PNIM_ITS ---
Subjective Subjective Date of Service: 02/17/24 Interval History: Complaining of persistent epigastric discomfort, wants to know report of for endoscopy and colonoscopy, tolerating diet no nausea, no vomiting, last bowel movement on 02/13, denies fever, no chills, passed some dark blood per rectum last night. Review of Systems All other system reviewed and are negative. Physical Exam 2 Vital Signs: Vital Signs: Last Vital Signs Temp 97.3 F 02/17/24 07:55 Pulse 89 02/17/24 07:55 Resp 18 02/17/24 07:55 BP 127/68 02/17/24 07:55 Pulse Ox 96 02/17/24 07:55 O2 Del Method Room Air 02/17/24 07:55 BMI result Body Mass Index 28.6 Const: Other: Gen: in no acute distress HEENT: sclera anicteric, moist mucus membranes Neck: supple Lungs: clear to auscultation bilaterally Heart: regular rate and rhythm, no murmurs Abd: soft, epigastric tenderness, non-distended, positive bowel movement Ext: no edema Skin: warm/well-perfused Neuro: alert and oriented x3, no focal findings Psych: appropriate affect Objective Data Active Medications Acetaminophen (Acetaminophen 325 Mg Tablet) 650 mg PO Q6H PRN PRN Reason: Pain, Mild (Pain Scale 1-3), fever or headache Albuterol Sulfate (Albuterol Sulfate 90 Mcg 8 Gm Inhaler) 2 puff INHALE Q4H PRN PRN Reason: shortness of breath or wheezing Calcium Carbonate (Calcium Carbonate 750 Mg Tab.Chew) 750 mg PO Q4H PRN PRN Reason: Heartburn Docusate Sodium (Docusate Sodium 100 Mg Capsule) 200 mg PO BEDTIME PRN PRN Reason: Constipation Last Admin: 02/16/24 22:25 Dose: 200 mg Documented By: HAJA Fluticasone/Vilanterol (Fluticasone/Vilanterol 200/25 Blst.W.Dev) 1 puff INHALE DAILY [facility] Last Admin: 02/17/24 07:43 Dose: 1 puff Documented By: CHRIS Lidocaine (Lidocaine 4 % Patch Adh..Patch) 1 patch TRANSDERMA DAILY [facility]; Protocol Last Admin: 02/17/24 07:24 Dose: 1 patch Documented By: BARBIE Lorazepam (Lorazepam 1 Mg Tablet) 1 mg PO BEDTIME PRN PRN Reason: Anxiety Last Admin: 02/16/24 22:25 Dose: 1 mg Documented By: HAJA Comments: Dayshift admin 1mg at 8am on 02/15. Per tatiana Leon to give additional dose Lorazepam (Lorazepam 0.5 Mg Tablet) 0.5 mg PO BID@0900,1200 PRN PRN Reason: Anxiety Last Admin: 02/15/24 09:12 Dose: 0.5 mg Documented By: MELODY Magnesium Hydroxide (Milk Of Magnesia 30 Ml Oral.Susp) 30 ml PO DAILY PRN PRN Reason: Constipation Melatonin (Melatonin 3 Mg Tablet) 6 mg PO BEDTIME PRN PRN Reason: Insomnia Morphine Sulfate (Morphine Sulfate 4 Mg/Ml Cartridge) 4 mg IVPUSH Q4H PRN; Protocol PRN Reason: Pain, Severe (Pain Scale 7-10) Last Admin: 02/17/24 06:40 Dose: 4 mg Documented By: HAJA Naloxone HCl (Naloxone Hcl 0.4 Mg/Ml Vial) 0.04 mg IVPUSH Q5M PRN PRN Reason: Excessive sedation or RR < 8 Ondansetron HCl (Ondansetron Hcl 4 Mg/2 Ml Vial) 4 mg IVPUSH Q8H PRN PRN Reason: Nausea and Vomiting Last Admin: 02/16/24 08:01 Dose: 4 mg Documented By: MELODY Pantoprazole Sodium (Pantoprazole Sodium 40 Mg/10 Ml Vial) 40 mg IVPUSH BID@0630,1630 [facility] Last Admin: 02/17/24 06:40 Dose: 40 mg Documented By: HAJA Sodium Biphosphate/Sodium Phosphate (Sodium Phosphate,[place]-Dibasic 133 Ml Enema) 133 ml [place] ONCE [facility] Last Admin: 02/14/24 11:01 Dose: 133 ml Documented By: ANNETTE Sodium Chloride (0.9 % Sodium Chloride Flush 3 Ml Syringe) 3 ml IVFLUSH QSHIFT [facility] Last Admin: 02/17/24 07:24 Dose: 3 ml Documented By: BARBIE Sucralfate (Sucralfate Oral Suspension 1 Gm/10 Ml Oral.Susp) 2 gm [place] BID [facility] Last Admin: 02/17/24 10:12 Dose: 2 gm Documented By: BARBIE Sucralfate (Sucralfate Oral Suspension 1 Gm/10 Ml Oral.Susp) 1 gm PO QIDACHS [facility] Last Admin: 02/17/24 07:24 Dose: 1 gm Documented By: BARBIE Labs 02/16/24 05:44 02/16/24 09:26 Assessment and Plan (1) Acute lower gastrointestinal bleeding: Status: Acute Plan 73yo F with asthma/COPD, colon CA s/p partial colectomy, hemochromatosis, vaginal CA s/p XRT, hx SBO s/p resection presenting with acute/chronic bleeding per rectum that started intermittently since last C-scope 2mo ago but has become much worse and now associated with generalized abdominal cramping acute/chronic GI bleeding - admission CT with proctitis,on IV PPI - GI consulted, EGD + C-scope 02/[address] Whiting: 1. Normal esophagus 2. Gastritis (biopsy) 3. 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 Internal hemorrhoids - APC was applied to the bleeding AVM as well as other visible AVMs - tolerating regular diet complaining of persistent epigastric discomfort, continue PPI transitioned to by mouth, start sucralfate enema bid, add stool softeners H&H stable COPD without acute exac - continue inhalers mood disorder - continue prn lorazepam VTE ppx - SCDs, no heparin given GIB dispo - eventual home In my clinical judgment, the patient requires continued inpatient hospitalization for the following reasons: GI bleeding Quality Stroke Does the patient have a stroke diagnosis?: No VTE Prior VTE?: No VTE Risk Level:: Medical - moderate - high VTE Device Contraindication: N/A - Device Ordered VTE Drug Contraindication: Treatment Not Indicated
[2024-02-17] MEDS: ondansetron HCL 4 MG/2 ML VIAL IVPUSH (10:52)
[2024-02-17] MEDS: Docusate Sodium 100 MG CAPSULE 200 MG PO (11:01)
[2024-02-17] MEDS: LORazepam 0.5 MG TABLET PO (11:01)
[2024-02-17] MEDS: Omeprazole 20 MG CAPSULE.DR PO (16:03)
[2024-02-17] MEDS: LORazepam 1 MG TABLET PO (20:47)
[2024-02-18] VITALS (8 sets, daily range): BP systolic 103–124; BP diastolic 59–73; PULSE 86–108; RESP 12–18; TEMP 36.1–37.1; O2SAT 93–98
[2024-02-18] MEDS: Morphine Sulfate 4 MG/ML CARTRIDGE IVPUSH ×4 (00:29→14:15)
[2024-02-18] MEDS: Omeprazole 20 MG CAPSULE.DR PO ×2 (05:52→16:19)
[2024-02-18 08:08] LABS: Hematocrit 32.2 % (37.0-47.0); Hemoglobin 10.7 g/dl (12.0-16.0); Mean Corpuscular HGB Conc 33.2 g/dl (31.0-35.0); Mean Corpuscular Hemoglobin 33.5 pg (27.0-33.0); Mean Corpuscular Volume 100.9 fL (80.0-98.0); Platelet Count 198 X10*3/uL (160-400); Red Blood Count 3.19 X10*6/uL (4.20-5.50); Red Cell Distribution Width 13.1 % (11.0-16.0); White Blood Count 5.8 X10*3/uL (4.8-10.8)
[2024-02-18] MEDS: Fluticasone/Vilanterol 200/25 BLST.W.DEV 1 PUFF INHALE (08:08)
[2024-02-18] MEDS: 0.9 % Sodium Chloride Flush 3 ML SYRINGE IVFLUSH ×2 (08:52→16:19)
[2024-02-18] MEDS: Sucralfate Oral Suspension 1 GM/10 ML ORAL.SUSP 2 GM PR ×2 (08:52→21:51)
[2024-02-18] MEDS: Sucralfate Oral Suspension 1 GM/10 ML ORAL.SUSP PO ×3 (08:52→11:29)
[2024-02-18] MEDS: Lidocaine 4 % Patch ADH..PATCH 1 PATCH TRANSDERMA (08:53)
--- NOTE | 2024-02-18 09:00 | PC.NURSE ---
patient reported bleeding each time when using bathroom,picure taken and sent to Dr. Vasquez
[2024-02-18] MEDS: LORazepam 0.5 MG TABLET PO (09:05)
--- NOTE | 2024-02-18 11:56 | HO.PM.IMPN ---
Subjective Subjective Date of Service: 02/18/24 Interval History: Had 4 episodes of bloody bowel movement last night complaining of epigastric and lower abdominal discomfort concerned about urinary tract infection, also vomited this morning, no fevers no chills no headache no dizziness. Review of Systems All other system reviewed and are negative Physical Exam Vital Signs: Vital Signs: Last Vital Signs Temp 97.6 F 02/18/24 07:54 Pulse 86 02/18/24 08:10 Resp 18 02/18/24 08:10 BP 124/59 L 02/18/24 07:54 Pulse Ox 97 02/18/24 07:54 O2 Del Method Room Air 02/18/24 07:54 BMI result Body Mass Index 28.6 Const: Other: Gen:anxious, in no acute distress HEENT: sclera anicteric, moist mucus membranes Neck: supple Lungs: clear to auscultation bilaterally Heart: regular rate and rhythm, no murmurs Abd: soft, epigastric and upper abdomen tenderness, non-distended, no guarding, no rigidity, positive bowel movement Ext: no edema Skin: warm/well-perfused Neuro: alert and oriented x3, no focal findings Psych: appropriate affect Objective Data Active Medications Acetaminophen (Acetaminophen 325 Mg Tablet) 650 mg PO Q6H PRN PRN Reason: Pain, Mild (Pain Scale 1-3), fever or headache Albuterol Sulfate (Albuterol Sulfate 90 Mcg 8 Gm Inhaler) 2 puff INHALE Q4H PRN PRN Reason: shortness of breath or wheezing Calcium Carbonate (Calcium Carbonate 750 Mg Tab.Chew) 750 mg PO Q4H PRN PRN Reason: Heartburn Docusate Sodium (Docusate Sodium 100 Mg Capsule) 200 mg PO BEDTIME PRN PRN Reason: Constipation Last Admin: 02/16/24 22:25 Dose: 200 mg Documented By: HAJA Fluticasone/Vilanterol (Fluticasone/Vilanterol 200/25 Blst.W.Dev) 1 puff INHALE DAILY [facility] Last Admin: 02/18/24 08:08 Dose: 1 puff Documented By: CHRIS Lidocaine (Lidocaine 4 % Patch Adh..Patch) 1 patch TRANSDERMA DAILY [facility]; Protocol Last Admin: 02/18/24 08:53 Dose: 1 patch Documented By: BARBIE Lorazepam (Lorazepam 1 Mg Tablet) 1 mg PO BEDTIME PRN PRN Reason: Anxiety Last Admin: 02/17/24 20:47 Dose: 1 mg Documented By: PATRICK Lorazepam (Lorazepam 0.5 Mg Tablet) 0.5 mg PO BID@0900,1200 PRN PRN Reason: Anxiety Last Admin: 02/18/24 09:05 Dose: 0.5 mg Documented By: BARBIE Magnesium Hydroxide (Milk Of Magnesia 30 Ml Oral.Susp) 30 ml PO DAILY PRN PRN Reason: Constipation Melatonin (Melatonin 3 Mg Tablet) 6 mg PO BEDTIME PRN PRN Reason: Insomnia Morphine Sulfate (Morphine Sulfate 4 Mg/Ml Cartridge) 4 mg IVPUSH Q4H PRN; Protocol PRN Reason: Pain, Severe (Pain Scale 7-10) Last Admin: 02/18/24 09:05 Dose: 4 mg Documented By: BARBIE Naloxone HCl (Naloxone Hcl 0.4 Mg/Ml Vial) 0.04 mg IVPUSH Q5M PRN PRN Reason: Excessive sedation or RR < 8 Omeprazole (Omeprazole 20 Mg Capsule.Dr) 20 mg PO BID@0630,1630 [facility] Last Admin: 02/18/24 05:52 Dose: 20 mg Documented By: PATRICK Ondansetron HCl (Ondansetron Hcl 4 Mg/2 Ml Vial) 4 mg IVPUSH Q8H PRN PRN Reason: Nausea and Vomiting Last Admin: 02/17/24 10:52 Dose: 4 mg Documented By: BARBIE Sodium Biphosphate/Sodium Phosphate (Sodium Phosphate,[place]-Dibasic 133 Ml Enema) 133 ml CA ONCE [facility] Last Admin: 02/14/24 11:01 Dose: 133 ml Documented By: ANNETTE Sodium Chloride (0.9 % Sodium Chloride Flush 3 Ml Syringe) 3 ml IVFLUSH QSHIFT [facility] Last Admin: 02/18/24 08:52 Dose: 3 ml Documented By: BARBIE Sucralfate (Sucralfate Oral Suspension 1 Gm/10 Ml Oral.Susp) 2 gm CA BID [facility] Last Admin: 02/18/24 08:52 Dose: 2 gm Documented By: BARBIE Sucralfate (Sucralfate Oral Suspension 1 Gm/10 Ml Oral.Susp) 1 gm PO QIDACHS [facility] Last Admin: 02/18/24 11:29 Dose: 1 gm Documented By: BARBIE Labs 02/18/24 06:23 02/16/24 09:26 Labs: Laboratory Results - last 24 hr 02/18/24 06:23 MCV 100.9 H MCH 33.5 H MCHC 33.2 RDW 13.1 Plt Count 198 D MPV 9.0 L Absolute Nucleated RBC 0.000 Nucleated RBC % (auto) 0.0 Assessment and Plan (1) Acute lower gastrointestinal bleeding: Status: Acute Plan 73yo F with asthma/COPD, colon CA s/p partial colectomy, hemochromatosis, vaginal CA s/p XRT, hx SBO s/p resection presenting with acute/chronic bleeding per rectum that started intermittently since last C-scope 2mo ago but has become much worse and now associated with generalized abdominal cramping acute/chronic GI bleeding - admission CT with proctitis, GI consulted, EGD + C-scope 02/[address] Whiting: 1. Normal esophagus 2. Gastritis (biopsy) 3. 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 Internal hemorrhoids - APC was applied to the bleeding AVM as well as other visible AVMs - had multiple episodes of bloody stools last night, persistent epigastric and lower abdomen discomfort, continue PPI , sucralfate enema bid, Zofran for nausea H&H stable will follow CBC closely -case discussed with Dr. Whiting she recommend 4 weeks of sucralfate enemas, symptoms likely to improve with in 2- 4 weeks -check UA COPD without acute exac - continue inhalers mood disorder - continue prn lorazepam VTE ppx - SCDs, no heparin given GIB dispo - eventual home In my clinical judgment, the patient requires continued inpatient hospitalization for the following reasons: GI bleeding Quality Stroke Does the patient have a stroke diagnosis?: No VTE Prior VTE?: No VTE Risk Level:: Medical - moderate - high VTE Device Contraindication: N/A - Device Ordered VTE Drug Contraindication: Treatment Not Indicated
[2024-02-18 14:52] LABS: Appearance Urine Clear; Color Urine Yellow; Glucose Urine UA Negative (Negative); Leukocyte Esterase Urine Negative (Negative); Nitrite Urine Negative (Negative); UMIC TRIGGER UACC YES; Urine Blood Small (1+) (Negative); Urine Ketones Negative (Negative); Urine Protein Negative (Neg-Trace)
[2024-02-18 15:39] LABS: Bacteria Urine None Seen (None Seen); Hyaline Casts Urine 0-2 /LPF (0-2); Squamous Epithelial Cell Urine 0-2 /HPF (0-2); WBC Urine 0-5 /HPF (0-5)
[2024-02-18] MEDS: oxyCODONE HCl Immed Release 5 MG TABLET PO (18:43)
[2024-02-18] MEDS: Docusate Sodium 100 MG CAPSULE 200 MG PO (18:43)
[2024-02-19] VITALS (8 sets, daily range): BP systolic 104–127; BP diastolic 57–79; PULSE 84–106; RESP 16–20; TEMP 36.3–37.1; O2SAT 94–97
[2024-02-19] MEDS: 0.9 % Sodium Chloride Flush 3 ML SYRINGE IVFLUSH ×4 (00:06→23:23)
[2024-02-19] MEDS: Omeprazole 20 MG CAPSULE.DR PO ×2 (05:50→15:36)
--- NOTE | 2024-02-19 06:22 | PC.NURSE ---
patient had 5 small bloody bowel movements throughout the night and still complaining of epigastric/abdominal pain
[2024-02-19] MEDS: LORazepam 0.5 MG TABLET PO (06:34)
[2024-02-19 07:00] LABS: Hematocrit 31.6 % (37.0-47.0); Hemoglobin 10.5 g/dl (12.0-16.0); Mean Corpuscular HGB Conc 33.2 g/dl (31.0-35.0); Mean Corpuscular Hemoglobin 32.8 pg (27.0-33.0); Mean Corpuscular Volume 98.8 fL (80.0-98.0); Platelet Count 216 X10*3/uL (160-400); Red Cell Distribution Width 12.9 % (11.0-16.0); White Blood Count 5.3 X10*3/uL (4.8-10.8)
[2024-02-19 07:15] LABS: Anion Gap 11 (12-20); Blood Urea Nitrogen 15 mg/dL (9-16); Calcium 8.5 mg/dL (8.4-10.2); Carbon Dioxide 24 mmol/L (22-29); Chloride 104 mmol/L (96-108); Creatinine Clr Calc Pharmacy 58.9; Estimated Glomerular Filt Rate > 60; Glucose Random 88 mg/dL (60-115); Potassium 4.1 mmol/L (3.3-5.1); Sodium 135 mmol/L (135-145)
[2024-02-19] MEDS: Fluticasone/Vilanterol 200/25 BLST.W.DEV 1 PUFF INHALE (08:01)
[2024-02-19] MEDS: Sucralfate Oral Suspension 1 GM/10 ML ORAL.SUSP 2 GM PR ×2 (08:40→20:19)
[2024-02-19] MEDS: Lidocaine 4 % Patch ADH..PATCH 1 PATCH TRANSDERMA (08:42)
--- NOTE | 2024-02-19 11:59 | MHC.CM.PN ---
Per MD rounds patient is ready for discharge. Met with patient to obtain preferences for [facility]. Patients preference is [facility]. Medicare rights delivered. Patient states that she is not ready to discharge. She has continued bleeding abdominal pain + distention. Met with MD to discuss request to appeal discharge. MD contacted specialist with patients concerns. Spoke with patient and her sister again about discharge and appeal. They were informed that MD requested specialist to speak with patient. Patient her sister Maile and the MD understand that the patient may appeal discharge if concerns dare not resolved. CM will follow.
--- NOTE | 2024-02-19 13:17 | PM.GIPN ---
Subjective Subjective Date of Service: 02/19/24 Interval History: Pt seen and evaluated at bedside. Cont to report abd discomfort, bloating and decreased appetite. Has not had a BM in a few days and has hx of SBOs so worried if developing another one. Passing flatulence. Critical Care Time (minutes): 0 Physical Exam Vital Signs: Vital Signs: Last Vital Signs Temp 98.7 F 02/19/24 12:00 Pulse 96 02/19/24 12:00 Resp 16 02/19/24 12:00 BP 109/65 02/19/24 12:00 Pulse Ox 97 02/19/24 12:00 O2 Del Method Room Air 02/19/24 12:00 BMI result Body Mass Index 28.6 elderly female NAD abd soft, mildly distended Objective Data Labs 02/19/24 05:47 02/19/24 05:47 Labs: Laboratory Results - last 24 hr 02/18/24 02/19/24 14:40 05:47 WBC 5.3 RBC 3.20 L Hgb 10.5 L Hct 31.6 L MCV 98.8 H MCH 32.8 MCHC 33.2 RDW 12.9 Plt Count 216 MPV 9.0 L Absolute Nucleated RBC 0.000 Nucleated RBC % (auto) 0.0 Sodium 135 Potassium 4.1 Chloride 104 Carbon Dioxide 24 Anion Gap 11 L BUN 15 Creatinine 0.76 Estim Creat Clear Calc 58.9 Estimated GFR > 60 Random Glucose 88 Calcium 8.5 Urine Color Yellow Urine Appearance Clear Urine pH 6.0 Ur Specific [place] 1.010 Urine Protein Negative Urine Glucose (UA) Negative Urine Ketones Negative Urine Blood Small (1+) H Urine Nitrite Negative Ur Leukocyte Esterase Negative Urine RBC 6-10 H Urine WBC 0-5 Ur Squamous Epith Cells 0-2 Urine Bacteria None Seen Hyaline Casts 0-2 Procedures Date of Service Date of Service: 02/19/24 Progress Note: A&P Assessment and plan (1) LUQ abdominal pain: Status: Acute (2) Abdominal pain: Status: Acute (3) Radiation proctitis: Status: Acute (4) Constipation: Status: Resolved Plan 1. Constipation Pt reports not having a BM despite sucralfate enemas. Likely has abd bloating and nausea due to this compounded by gastritis. Plan: - Add bowel regimen - Low threshold to reimage if develops obstipation/N/V to r/o SBO 2. Radiation proctitis Bleeding does not appear to be clinically significant based on H/H trend. Educated that small amount of rectal bleeding may be expected for a few days. Plan: - Will need to cont sucralfate enema at least 4 weeks. - If still bleeding despite therapy, can consider repeat APC. 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 Time Spent With Patient Time: Total time managing care of this patient today ____ minutes. Quality Stroke Does the patient have a stroke diagnosis?: No VTE Prior VTE?: No VTE Risk Level:: Medical - moderate - high VTE Device Contraindication: N/A - Device Ordered VTE Drug Contraindication: Treatment Not Indicated
--- NOTE | 2024-02-19 13:53 | HO.PM.IMPN ---
Subjective Subjective Date of Service: 02/19/24 Interval History: Complaining of persistent abdominal pain, had 1 episode of bright red blood per rectum, complaining of constipation, decreased by mouth intake and no bowel movement, denies fever, no chills, no nausea, no vomiting today. Review of Systems All other system reviewed and are negative Physical Exam Vital Signs: Vital Signs: Last Vital Signs Temp 98.7 F 02/19/24 12:00 Pulse 96 02/19/24 12:00 Resp 16 02/19/24 12:00 BP 109/65 02/19/24 12:00 Pulse Ox 96 02/19/24 13:00 O2 Del Method Room Air 02/19/24 12:00 BMI result Body Mass Index 28.6 Const: Other: Gen:anxious, in no acute distress HEENT: sclera anicteric, moist mucus membranes Neck: supple Lungs: clear to auscultation bilaterally Heart: regular rate and rhythm, no murmurs Abd: soft, mild distention, non tender,, positive bowel movement Ext: no edema Skin: warm/well-perfused Neuro: alert and oriented x3, no focal findings Psych: appropriate affect Objective Data Active Medications Acetaminophen (Acetaminophen 325 Mg Tablet) 650 mg PO Q6H PRN PRN Reason: Pain, Mild (Pain Scale 1-3), fever or headache Albuterol Sulfate (Albuterol Sulfate 90 Mcg 8 Gm Inhaler) 2 puff INHALE Q4H PRN PRN Reason: shortness of breath or wheezing Calcium Carbonate (Calcium Carbonate 750 Mg Tab.Chew) 750 mg PO Q4H PRN PRN Reason: Heartburn Docusate Sodium (Docusate Sodium 100 Mg Capsule) 200 mg PO BEDTIME PRN PRN Reason: Constipation Last Admin: 02/18/24 18:43 Dose: 200 mg Documented By: BARBIE Fluticasone/Vilanterol (Fluticasone/Vilanterol 200/25 Blst.W.Dev) 1 puff INHALE DAILY [facility] Last Admin: 02/19/24 08:01 Dose: 1 puff Documented By: CHRIS Lidocaine (Lidocaine 4 % Patch Adh..Patch) 1 patch TRANSDERMA DAILY [facility]; Protocol Last Admin: 02/19/24 08:42 Dose: 1 patch Documented By: MELODY Lorazepam (Lorazepam 1 Mg Tablet) 1 mg PO BEDTIME PRN PRN Reason: Anxiety Last Admin: 02/17/24 20:47 Dose: 1 mg Documented By: PATRICK Lorazepam (Lorazepam 0.5 Mg Tablet) 0.5 mg PO BID@0900,1200 PRN PRN Reason: Anxiety Last Admin: 02/19/24 06:34 Dose: 0.5 mg Documented By: PATRICK Magnesium Hydroxide (Milk Of Magnesia 30 Ml Oral.Susp) 30 ml PO DAILY PRN PRN Reason: Constipation Melatonin (Melatonin 3 Mg Tablet) 6 mg PO BEDTIME PRN PRN Reason: Insomnia Naloxone HCl (Naloxone Hcl 0.4 Mg/Ml Vial) 0.04 mg IVPUSH Q5M PRN PRN Reason: Excessive sedation or RR < 8 Omeprazole (Omeprazole 20 Mg Capsule.Dr) 20 mg PO BID@0630,1630 [facility] Last Admin: 02/19/24 05:50 Dose: 20 mg Documented By: PATRICK Ondansetron HCl (Ondansetron Hcl 4 Mg/2 Ml Vial) 4 mg IVPUSH Q8H PRN PRN Reason: Nausea and Vomiting Last Admin: 02/17/24 10:52 Dose: 4 mg Documented By: BARBIE Oxycodone HCl (Oxycodone Hcl Immed Release 5 Mg Tablet) 5 mg PO Q4H PRN PRN Reason: Pain, Moderate(Pain Scale 4-6) Last Admin: 02/18/24 18:43 Dose: 5 mg Documented By: BARBIE Sodium Biphosphate/Sodium Phosphate (Sodium Phosphate,[place]-Dibasic 133 Ml Enema) 133 ml RI ONCE [facility] Last Admin: 02/14/24 11:01 Dose: 133 ml Documented By: ANNETTE Sodium Chloride (0.9 % Sodium Chloride Flush 3 Ml Syringe) 3 ml IVFLUSH QSHIFT [facility] Last Admin: 02/19/24 08:42 Dose: 3 ml Documented By: MELODY Sucralfate (Sucralfate Oral Suspension 1 Gm/10 Ml Oral.Susp) 2 gm RI BID [facility] Last Admin: 02/19/24 08:40 Dose: 2 gm Documented By: MELODY Labs 02/19/24 05:47 02/19/24 05:47 Labs: Laboratory Results - last 24 hr 02/18/24 02/19/24 14:40 05:47 MCV 98.8 H MCH 32.8 MCHC 33.2 RDW 12.9 Plt Count 216 MPV 9.0 L Absolute Nucleated RBC 0.000 Nucleated RBC % (auto) 0.0 Anion Gap 11 L Estim Creat Clear Calc 58.9 Estimated GFR > 60 Random Glucose 88 Calcium 8.5 Urine Color Yellow Urine Appearance Clear Urine pH 6.0 Ur Specific [place] 1.010 Urine Protein Negative Urine Glucose (UA) Negative Urine Ketones Negative Urine Blood Small (1+) H Urine Nitrite Negative Ur Leukocyte Esterase Negative Urine RBC 6-10 H Urine WBC 0-5 Ur Squamous Epith Cells 0-2 Urine Bacteria None Seen Hyaline Casts 0-2 Assessment and Plan (1) Acute lower gastrointestinal bleeding: Status: Acute (2) Abdominal pain: Status: Acute Plan 73yo F with asthma/COPD, colon CA s/p partial colectomy, hemochromatosis, vaginal CA s/p XRT, hx SBO s/p resection presenting with acute/chronic bleeding per rectum that started intermittently since last C-scope 2mo ago but has become much worse and now associated with generalized abdominal cramping acute/chronic GI bleeding Less frequent episode of rectal bleed, concerned about constipation, abdominal pain and bloating - admission CT with proctitis, GI consulted, EGD + C-scope 02/[address] Whiting: 1. Normal esophagus 2. Gastritis (biopsy) 3. 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 Internal hemorrhoids - APC was applied to the bleeding AVM as well as other visible AVMs - persistent abdomen discomfort, continue PPI , sucralfate enema bid, Zofran for nausea H&H stable will follow CBC closely -reassessed by GI they recommend to add stool softeners and continue 4 weeks of sucralfate enemas, symptoms likely to improve with in 2- 4 weeks -if persistent bleed than GI will reconsider repeat APC, outpatient follow-up with Gastroenterology scheduled for end of this month. Urinary frequency resolved UA unremarkable. COPD without acute exac - continue inhalers mood disorder - continue prn lorazepam VTE ppx - SCDs, no heparin given GIB dispo - eventual home In my clinical judgment, the patient requires continued inpatient hospitalization for the following reasons: GI bleeding Quality Stroke Does the patient have a stroke diagnosis?: No VTE Prior VTE?: No VTE Risk Level:: Medical - moderate - high VTE Device Contraindication: N/A - Device Ordered VTE Drug Contraindication: Treatment Not Indicated
[2024-02-19] MEDS: polyethylene glycoL 3350 17 GM POWD.PACK PO (14:17)
[2024-02-19] MEDS: Morphine Sulfate 4 MG/ML CARTRIDGE 3 MG IVPUSH ×2 (14:44→20:23)
[2024-02-19] MEDS: Milk of Magnesia 30 ML ORAL.SUSP PO (15:36)
[2024-02-19] MEDS: LORazepam 1 MG TABLET PO (23:22)
[2024-02-20 03:34] VITALS: BP 116/72; PULSE 88; RESP 18; TEMP 36.7; O2SAT 98
[2024-02-20] MEDS: Morphine Sulfate 4 MG/ML CARTRIDGE 3 MG IVPUSH (03:59)
[2024-02-20] MEDS: Omeprazole 20 MG CAPSULE.DR PO (05:50)
[2024-02-20 06:15] LABS: Hematocrit 31.3 % (37.0-47.0); Hemoglobin 10.7 g/dl (12.0-16.0); Mean Corpuscular HGB Conc 34.2 g/dl (31.0-35.0); Mean Corpuscular Hemoglobin 33.5 pg (27.0-33.0); Mean Corpuscular Volume 98.1 fL (80.0-98.0); Mean Platelet Volume 8.8 fL (9.4-12.3); Platelet Count 204 X10*3/uL (160-400); Red Blood Count 3.19 X10*6/uL (4.20-5.50); White Blood Count 5.1 X10*3/uL (4.8-10.8)
[2024-02-20 06:27] LABS: Anion Gap 13 (12-20); Blood Urea Nitrogen 13 mg/dL (9-16); Calcium 8.6 mg/dL (8.4-10.2); Carbon Dioxide 24 mmol/L (22-29); Chloride 105 mmol/L (96-108); Creatinine Clr Calc Pharmacy 63.1; Estimated Glomerular Filt Rate > 60; Glucose Random 78 mg/dL (60-115); Sodium 138 mmol/L (135-145)
[2024-02-20 07:30] VITALS: BP 111/72; PULSE 83; RESP 16; TEMP 37.2; O2SAT 98
[2024-02-20 07:51] VITALS: PULSE 96; RESP 16; O2SAT 94
[2024-02-20] MEDS: Fluticasone/Vilanterol 200/25 BLST.W.DEV 1 PUFF INHALE (07:51)
[2024-02-20] MEDS: 0.9 % Sodium Chloride Flush 3 ML SYRINGE IVFLUSH (09:19)
[2024-02-20] MEDS: LORazepam 0.5 MG TABLET PO (09:20)
[2024-02-20] MEDS: Sucralfate Oral Suspension 1 GM/10 ML ORAL.SUSP 2 GM PR (09:20)
[2024-02-20] MEDS: oxyCODONE HCl Immed Release 5 MG TABLET PO (09:20)
[2024-02-20] MEDS: polyethylene glycoL 3350 17 GM POWD.PACK PO (11:43)
[2024-02-20] MEDS: Lactulose 20 GM/30 ML SOLUTION PO (11:43)
--- NOTE | 2024-02-20 13:48 | P.DS_ITS ---
DS: Providers Provider Date of Service: 02/20/24 Date of admission: 02/13/24 04:09 Date of discharge: 02/20/24 Primary care physician: Catie Isabel CNP Consults: 02/13/24 04:11 Consult to Gastroenterology Routine Consulting Provider: Dary Whiting Reason for consultation: GI bleed, hx colon ca Has provider been notified: No DS: Diagnosis Discharge Diagnosis (1) Acute lower gastrointestinal bleeding: Status: Acute (2) Abdominal pain: Status: Acute DS: Summary Hospital Course Hospital Course: History of presenting illness: Attending physician on admission: Jonah Friedman Chief Complaint: rectal bleeding Patient is a 73-year-old female with a past medical history significant for combined asthma/COPD, radiation proctitis, colon cancer (s/p partial colectomy, last colonoscopy 2 months ago), hemochromatosis, vaginal cancer (s/p radiation) and history of small-bowel obstruction (s/p resesction), who presented to the ED with rectal bleeding, specifically dark clots for the past few days, worsening. She reports that this bleeding has been intermittent since her last colonoscopy 2 months ago however it has been worsening and now causing episodes of incontinence, therefore, she reported to the ED. 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 She describes generalized abdominal cramping, severe. She has been nauseous and vomiting without any hematemesis or coffee-ground emesis. She denies any fever or chills. She has had a left-sided headache and felt dizzy but has not been able to hydrate or tolerate much p.o. for the past few days. Hospital course: 73yo F with asthma/COPD, colon CA s/p partial colectomy, hemochromatosis, vaginal CA s/p XRT, hx SBO s/p resection,presented with acute/chronic bleeding per rectum that started intermittently since last C-scope 2mo ago but became much worse in last several days associated with generalized abdominal cramping patient admitted to [facility] with a diagnosis of acute/chronic GI bleeding was made NPO, placed on IV Protonix, IV fluids subsequently seen by Dr. Whiting and underwent EGD + C-scope 02/[address] Whiting:it showed Normal esophagus, Gastritis (biopsy), Normal duodenum (biopsy), Radiation associated vascular ectasia RAVE (APC), Internal hemorrhoids APC was applied to the bleeding AVM as well as other visible AVMs, postprocedure patient was treated with PPI, sucralfate felt enema twice daily, Zofran for nausea patient noted to have few episodes of bright red blood per rectum, H&H remains stable currently patient is tolerating diet had a normal bowel movement therefore being discharged home to continue sucralfate felt enema for total 4 weeks recommend outpatient follow-up with Gastroenterology Urinary frequency resolved UA unremarkable. COPD without acute exac recommend to continue home inhalers. Mood disorder no acute decompensation noted continue lorazepam Time Attestation Discharge Coordination Time (in mins): 40 Quality: Safe Use of Opioids Does Pt have an Active Cancer Diagnosis on the Problem List?: No Quality: Stroke Does the patient have a stroke diagnosis?: No Physical Exam Vital Signs: Vital Signs: Last Vital Signs Temp 98.9 F 02/20/24 07:30 Pulse 96 02/20/24 07:51 Resp 16 02/20/24 07:51 BP 111/72 02/20/24 07:30 Pulse Ox 98 02/20/24 07:30 O2 Del Method Room Air 02/20/24 07:30 BMI result Body Mass Index 28.6 Const: Other: Gen:anxious, in no acute distress HEENT: sclera anicteric, moist mucus membranes Neck: supple Lungs: clear to auscultation bilaterally Heart: regular rate and rhythm, no murmurs Abd: soft, , non tender,, positive bowel movement Ext: no edema Skin: warm/well-perfused Neuro: alert and oriented x3, no focal findings Psych: appropriate affect DS: Data Data Completed and Pending Completed studies during hospitalization [Text1]: Pending at discharge 02/14/24 15:11 Surgical [PTH] Routine Labs on day of discharge: Laboratory Results - last 24 hr 02/20/24 05:45 WBC 5.1 RBC 3.19 L Hgb 10.7 L Hct 31.3 L MCV 98.1 H MCH 33.5 H MCHC 34.2 RDW 13.0 Plt Count 204 MPV 8.8 L Absolute Nucleated RBC 0.000 Nucleated RBC % (auto) 0.0 Sodium 138 Potassium 4.0 Chloride 105 Carbon Dioxide 24 Anion Gap 13 BUN 13 Creatinine 0.71 Estim Creat Clear Calc 63.1 Estimated GFR > 60 Random Glucose 78 Calcium 8.6 Discharge Plan Discharge Anticipated Discharge Date/Time: 02/20/24 13:43 Patient Disposition: Home, Self-Care Discharge Diagnosis: Radiation proctitis Acute on chronic lower GI bleed Referrals: Catie Isabel CNP [Primary Care Provider] - 1 Week Discharge Medications: New sucralfate 100 mg/mL Suspension 2 g MS BID Qty: 1000 0RF polyethylene glycol 3350 17 gram Powder In Packet 17 g PO DAILY PRN (Reason: Constipation) Qty: 30 0RF Continued fluticasone furoate-vilanterol [Breo Ellipta] 200-25 mcg/dose blister with device 1 inh inhalation DAILY 30 Days Qty: 60 3RF multivitamin Tablet 1 tab PO DAILY hydroxychloroquine 200 mg tablet 200 mg PO DAILY albuterol sulfate [Ventolin HFA] 90 mcg/actuation HFA aerosol inhaler 2 puff inhalation Q4H PRN (Reason: shortness of breath or wheezing) hydrocodone-acetaminophen 5-325 mg tablet 0.5 tab PO QID PRN (Reason: severe pain) lorazepam 1 mg tablet 0.5 mg PO BID@0900,1200 PRN (Reason: Anxiety) lorazepam 1 mg tablet 1 mg PO BEDTIME PRN (Reason: Anxiety) cholecalciferol (vitamin D3) 125 mcg (5,000 unit) capsule 125 mcg PO DAILY pantoprazole 40 mg tablet,delayed release (DR/EC) 40 mg PO BID Qty: 60 6RF lidocaine [Lidoderm] 5 % adhesive patch,medicated 1 patch topical DAILY PRN (Reason: Pain) Qty: 30 2RF Rx Instructions: leave on most painful area for up to 12 hours Discharge Orders: Discharge Order (Routine); Ordered 02/20/24 Ordered By: Meredith Vasquez Diet: Advance to usual diet Activity on Discharge: As tolerated Stand Alone Forms: Patient Portal Discharge page Print Language: Thai Care Plan Goals: Take sucralfate enema 20 mL twice daily for 4 weeks total Take Protonix 1 tablet twice daily Health Concerns: Take all home medications as before Plan of Treatment: Outpatient follow-up with Gastroenterology call for appointment in next 1-2 weeks Assessment: As above Patient Instructions: Gastrointestinal Bleeding (DC)
== END 2024-02-20 14:26 | disposition home or self-care (01) | DRG 394 ==
LOC: HO.ED 23:19 → HO.EDOVER 02-13 04:21 → HO.S3 02-13 13:50
PROVIDERS: Family Medicine; Internal Medicine; Admitting Provider Physician Assistant; Emergency Provider Internal Medicine; PCP Nurse Practitioner Primary Care; Visit Provider Hospitalist
PROC: 0DB98ZX Excision of Duodenum, Via Natural or Artificial Opening Endoscopic, Diagnostic (ICD-10-PCS; principal; 2024-02-14 15:30)
DX: K62.7 Radiation proctitis (principal); K62.5 Hemorrhage of anus and rectum; K29.70 Gastritis, unspecified, without bleeding; Y84.2 Radiological procedure and radiotherapy as the cause of abnormal reaction of the patient, or of later complication, without mention of misadventure at the time of the procedure; D64.9 Anemia, unspecified; F39 Unspecified mood [affective] disorder; K59.00 Constipation, unspecified; J44.9 Chronic obstructive pulmonary disease, unspecified; K64.8 Other hemorrhoids; Z85.44 Personal history of malignant neoplasm of other female genital organs; Z85.038 Personal history of other malignant neoplasm of large intestine; Z79.899 Other long term (current) drug therapy
CPT/HCPCS: 36415; 71045; 74177; 74178; 80048; 80053; 81001; 83690; 85025; 85027; 85652; 86140; 86850; 86870; 86900; 86901; 86920; 88305; 88313; 88342; 99285; J2003; J2270; J2371; J2405; J2470; J2704; J7120; Q9967

== ENCOUNTER → 2024-02-13 04:09 | Outpatient (BNV) | payer MEDICARE, MEDICAID, SELFPAY | PROVIDERS: Admitting Provider Physician Assistant; Emergency Provider Internal Medicine; Visit Provider Physician Assistant | DX: K92.2 Gastrointestinal hemorrhage, unspecified (principal); R10.9 Unspecified abdominal pain | CPT/HCPCS: 99223; 99232; 99499 ==

== ENCOUNTER → 2024-02-13 04:09 | Outpatient (BNV) | payer MEDICARE, MEDICAID, SELFPAY | PROVIDERS: Admitting Provider Physician Assistant; Emergency Provider Internal Medicine; PCP Nurse Practitioner Primary Care; Visit Provider Internal Medicine | DX: R10.12 Left upper quadrant pain (principal); R10.9 Unspecified abdominal pain; K62.7 Radiation proctitis; K59.00 Constipation, unspecified | CPT/HCPCS: 43239; 45388; 99222; 99232 ==

== ENCOUNTER 2024-03-23 08:39 | Inpatient (IN) | payer MEDICARE, MEDICAID, SELFPAY ==
--- NOTE | ~2024-03-23 | XR_ITS ---
CLINICAL HISTORY: f up PSBO 1 view abdomen Comparison: CR/SR - XR KUB - 03/23/24 09:44 EST Findings: No pneumoperitoneum or pneumatosis. A few mildly dilated small bowel loops are seen over the central abdomen, similar to the prior exam. Surgical clips overlie the pelvis. Prior cholecystectomy. No abnormal calcifications. No acute fractures. IMPRESSION: No significant interval change. This document has been electronically signed by: Sowmya Reed MD on 03/27/2024 07:52:48
--- NOTE | ~2024-03-23 | CT_ITS ---
EXAMINATION: CT ABDOMEN PELVIS WITH IV CONTRAST HISTORY: abd pain concern for SBO COMPARISON: Comparison is made with the prior examination dated 02/16/2024. TECHNIQUE: CT scan of the abdomen and pelvis was performed following administration of 85 mL Omnipaque 350 using standard departmental protocol. Coronal and sagittal reformatted images were generated and reviewed. Oral contrast material was not administered at the request of the referring physician. This CT exam was performed with one or more of the following dose reduction techniques: automated exposure control, adjustment of the mA and/or kV according to patient size, use of iterative reconstruction technique. DLP: 733 mGy-cm FINDINGS: LOWER CHEST: There are fibrotic changes at the lung bases. There is no pleural effusion. CARDIOVASCULATURE: The heart is normal in size. There is no pericardial effusion. LIVER: The liver demonstrates a nodular contour, suggestive of cirrhosis. No liver mass is identified. The hepatic and portal veins are patent. GALLBLADDER / BILE DUCTS: The gallbladder is surgically absent. There is no intra or extrahepatic biliary ductal dilatation. SPLEEN: The spleen is normal in size. No focal splenic lesion is identified. PANCREAS: The pancreas is unremarkable in appearance. ADRENAL GLANDS: Within normal limits. KIDNEYS/RETROPERITONEUM: No renal calculi are identified. There is no hydronephrosis. There is a 1.4 cm cyst in the interpolar region of the right kidney. LYMPH NODES: No abdominal or pelvic lymphadenopathy. VASCULATURE: The abdominal aorta is normal in caliber. MESENTERY/PERITONEUM: No free fluid. No masses. There is no free intraperitoneal gas. STOMACH: The stomach is collapsed, limiting evaluation. SMALL BOWEL: Proximal small bowel loops are normal in caliber. However, there is dilatation of fluid-filled distal small bowel loops in the pelvis, compatible with obstruction. A definite transition point is not identified. COLON: There is a large amount of stool throughout the colon. APPENDIX: Appendix is not seen, however no inflammatory changes are seen adjacent to the cecum. URINARY BLADDER/PELVIC ORGANS: The urinary bladder is collapsed, limiting evaluation. The uterus is unremarkable. BONES / SOFT TISSUES: There is degenerative disc disease of the spine. CT/CT abdomen pelvis w IV con IMPRESSION: Findings consistent with distal small bowel obstruction in the pelvis. A definite transition point is not identified. Electronically signed by: Abner Fields MD 03/23/2024 11:47 AM EST
--- NOTE | ~2024-03-23 | XR_ITS ---
EXAMINATION: XR ABDOMEN KUB CLINICAL INDICATION: ?obstruction - abd pain COMPARISON: Correlated to CT dated February 16, 2024. TECHNIQUE: AP view of the abdomen. FINDINGS: Abundant stool throughout the large intestine. Questionable wall thickening descending colon. Few scattered air-fluid levels in the mid abdomen. Vascular clips in the left lower abdomen overlapping the sacrum. Dextroconvex curvature of the lumbar spine. Sclerosis and the sacroiliac joints. Vascular clips in the right upper quadrant abdomen. Osteopenia versus osteoporosis. XR/XR KUB IMPRESSION: Acute intra-abdominal process should be considered in the correct clinical settings. No gross intestinal obstruction pattern. Electronically signed by: Tristan Palomo MD 03/23/2024 09:56 AM EST
--- NOTE | ~2024-03-23 | FL_ITS ---
EXAMINATION: FLUOROSCOPIC SMALL BOWEL FOLLOW-THROUGH CLINICAL INFORMATION: Partial small bowel obstruction. Abdominal pain. COMPARISON: CT scan 03/23/2024. SMALL BOWEL SERIES: Sas Developer view demonstrates mildly dilated small bowel loops over the central and left abdomen, and superior right paramedian pelvis, measuring up to 3.8 cm diameter. Surgical clips are present in the pelvis. Right upper quadrant clips are also present. Imaging of the jejunum and ileum demonstrate mildly dilated small bowel loops in the left abdomen. No obvious strictures, or masses are seen. Contrast is seen in the right colon after 30 minutes. A large amount of Gastrografin remains in the stomach after 30 minutes. The patient had a rapid response event the department, therefore, a spot image was not obtained. FL/FL small bowel follow through IMPRESSION: 1. Mildly dilated small bowel loops in the left mid abdomen. Contrast is observed in the right colon after 30 minutes. After contrast was administered, no persistent small bowel dilatation was evident. These findings likely represent a partial small bowel obstruction, which may have resolved from osmotic load from contrast. 2. A large amount Gastrografin remains in the stomach after 30 minutes. This procedure was performed by Eduin Lozano PA-C and supervised by Dr. Alamo. Electronically signed by: Saul Alamo MD 03/27/2024 04:11 PM [facility]
--- NOTE | ~2024-03-23 | XR_ITS ---
CLINICAL HISTORY: Persistent coughing, blood tinged sputum 2 view chest x-ray Comparison: CR/SR - XR CHEST 2V - 01/23/23 17:13 EST Findings: No consolidation or effusion. Unchanged calcified granuloma of the right lower lung. Unchanged opacity of the right lower lobe medially. There is coarse increase of bilateral interstitial lung markings. Hyperinflation of the lungs. More prominent small opacity in the right mid lung. Normal size heart. No acute fracture. IMPRESSION: More prominent small opacity of the right mid lung. Pneumonia can not be excluded. Chest x-ray follow-up is recommended. This document has been electronically signed by: Hemanth Gamboa MD on 03/29/2024 16:14:28
[2024-03-23 08:51] VITALS: BP 103/68; PULSE 104; RESP 16; TEMP 36.7; O2SAT 98; BMI 26.5
[2024-03-23 09:11] LABS: MANUAL DIFF FLAG NO
[2024-03-23 09:17] LABS: Basophils Percent Auto 0.2 % (0-2); Eosinophils Absolute Auto 0.1 X10*3/uL (0.0-0.4); Eosinophils Percent Auto 1.5 % (0-4); Hematocrit 33.2 % (37.0-47.0); Hemoglobin 11.3 g/dl (12.0-16.0); Imm Gran Abs Auto 0.04 X10*3/uL (0.00-0.03); Imm Gran Pct Auto 0.4 % (0.0-0.4); Lymphocytes Absolute Auto 0.9 X10*3/uL (1.2-4.9); Lymphocytes Percent Auto 9.3 % (20-40); Mean Corpuscular Volume 97.1 fL (80.0-98.0); Mean Platelet Volume 8.6 fL (9.4-12.3); Monocytes Absolute Auto 0.6 X10*3/uL (0.1-1.2); Monocytes Percent Auto 6.7 % (2-11); Neutrophils Absolute Auto 7.5 x10*3/uL (2.0-8.3); Neutrophils Percent Auto 81.9 % (45-73); Platelet Count 229 X10*3/uL (160-400); Red Blood Count 3.42 X10*6/uL (4.20-5.50); Red Cell Distribution Width 13.8 % (11.0-16.0); White Blood Count 9.1 X10*3/uL (4.8-10.8)
[2024-03-23 09:33] LABS: Alanine Aminotransferase 69 U/L (0-31); Albumin Level 3.6 g/dL (3.5-5.0); Alkaline Phosphatase 137 U/L (39-117); Anion Gap 10 (12-20); Aspartate Amino Transferase 73 U/L (5-31); Bilirubin Total 0.5 mg/dL (0.0-1.0); Blood Urea Nitrogen 16 mg/dL (9-16); Carbon Dioxide 23 mmol/L (22-29); Chloride 108 mmol/L (96-108); Creatinine Clr Calc Pharmacy 55.4; Estimated Glomerular Filt Rate > 60; Glucose Random 118 mg/dL (60-115); Potassium 4.6 mmol/L (3.3-5.1); Sodium 136 mmol/L (135-145); Total Protein 8.1 g/dL (6.5-8.0)
--- NOTE | 2024-03-23 10:40 | ED.ABDPAIN ---
HPI - Abdominal Pain General Chief Complaint: Abdominal Pain Stated Complaint: obstruction Time Seen by Provider: 03/23/24 11:51 Source: patient, RN notes reviewed and old records reviewed Mode of arrival: ambulatory Limitations: no limitations History of Present Illness ED Provider: Mohsen HPI narrative: Patient is a 73-year-old female with history of asthma, ILD, colon CA s/p radiation/resection, multiple SBOs, recent unknown abdominal surgery at [facility] 2 weeks ago presenting with sudden onset abdominal pain which began around 1 am, began vomiting one hour after onset of pain. Denies hematemesis. States last normal bowel movement was a day before yesterday. Denies recent hematochezia/melena. Does report that she was having a significant amount of hematochezia which is what caused her to present to [facility], she then subsequently had a colonoscopy as well as an abdominal surgery though she is not able to state specifically what type of surgery. Reports chills but denies fever. MD elicited complaint: abdominal pain Pertinent past history: other Onset (ago): hour(s) Pain Consistency: constant Severity: severe Radiation: none Migration to: no migration Associated symptoms: nausea and vomiting Related Data Home Medications ?Medication ?Instructions ?Recorded ?Confirmed cholecalciferol (vitamin D3) 125 125 mcg PO DAILY 01/05/22 02/13/24 mcg (5,000 unit) capsule multivitamin 1 tab PO DAILY 04/08/22 02/13/24 albuterol sulfate 90 mcg/actuation 2 puff inhalation Q4H PRN 02/13/24 02/13/24 aerosol inhaler (Ventolin HFA) shortness of breath or wheezing hydrocodone 5 mg-acetaminophen 325 0.5 tab PO QID PRN severe pain 02/13/24 02/13/24 mg tablet hydroxychloroquine 200 mg tablet 200 mg PO DAILY 02/13/24 02/13/24 lorazepam 1 mg tablet 0.5 mg PO BID@0900,1200 PRN Anxiety 02/13/24 02/13/24 lorazepam 1 mg tablet 1 mg PO BEDTIME PRN Anxiety 02/13/24 02/13/24 Previous Rx's ?Medication ?Instructions ?Recorded lidocaine 5 % topical patch 1 patch topical DAILY PRN Pain #30 10/24/22 (Lidoderm) ea pantoprazole 40 mg tablet,delayed 40 mg PO BID #60 tabs 03/22/23 release fluticasone furoate 200 1 inh inhalation DAILY copd 30 12/09/23 mcg-vilanterol 25 mcg/dose days #60 ea inhalation powder (Breo Ellipta) polyethylene glycol 3350 17 gram 17 g PO DAILY PRN Constipation #30 02/20/24 oral powder packet ea sucralfate 100 mg/mL oral 2 g (20 mL) SC BID #1,000 mL 02/20/24 suspension Allergies Allergy/AdvReac Type Severity Reaction Status Date / Time ciprofloxacin [From Cipro] AdvReac Intermediate Facial Verified 03/23/24 08:53 redness, lip swelling Review of Systems Review of Systems As per HPI. Yes all other systems are reviewed and are negative Constitutional: Reports as per HPI PMFSH Past Medical History Medical History Abdominal pain Bronchiectasis Shoulder pain, bilateral UTI (urinary tract infection) Interstitial lung disease Arthralgia Dizziness Dysuria Acute sinusitis Periumbilical abdominal pain Flank pain Left flank pain Annual physical exam IBS (irritable bowel syndrome) Gastritis Cough Fatigue Scabies Post covid-19 condition, unspecified Elevated LFTs Diarrhea Sinusitis Bronchitis Well woman exam COPD (chronic obstructive pulmonary disease) Radiation proctitis Radiation enteritis Postmenopausal bleeding History of colon cancer SBO (small bowel obstruction) Rectal bleeding Asthma Vertigo Seasonal allergies Hyperglycemia Palpitation Hemochromatosis Tubular adenoma Colon cancer Vaginal cancer Surgical History History of cholecystectomy History of esophagogastroduodenoscopy (EGD) H/O colonoscopy H/O colectomy Family History Family History Father Dementia GSW (gunshot wound) CAD (coronary artery disease) Mother GSW (gunshot wound) Family/Other Diabetes mellitus Brother CAD (coronary artery disease) Sister Multiple sclerosis Sister Rheumatoid arthritis Sister Rheumatoid arthritis Social History Social History Household Members: None Household Members Other:: aunt a 96 years old Housing: House Are you a primary healthcare applications analyst to a significant other at home: No Do you presently have visiting nurse or other home services: No Alcohol intake: never Patient Tobacco Use Status: Never used Tobacco e-Cigarette/Vaping Use: Never Used Second Hand Smoke Exposure: No Advance Directives: Yes Advance Directives on File: Yes Advance Directives Date on File: 04/09/22 Do you have a plan to hurt others: No Plan service: No Current occupational status: unemployed Sexual orientation: Straight/Heterosexual Gender identity: Female Physical Exam ED Vital Signs: Vital Signs - 24 hr 03/23/24 08:51 Temperature 98.1 F Pulse Rate 104 H Respiratory Rate 16 Blood Pressure 103/68 Pulse Oximetry 98 Oxygen Delivery Method Room Air BMI result Body Mass Index 26.5 Vital signs have been reviewed and appear to be correct. Blood pressure normal. Heart rate slightly tachycardic. Respiratory rate normal. Temperature normal. Oxygen saturation normal. Const General: cooperative, healthy appearing and no acute distress Orientation/consciousness: oriented to person, oriented to place, oriented to time and patient oriented x3 Limitations: no limitations HENMT Head: Yes normocephalic and Yes atraumatic Ears: external ears normal General nose exam: Normal external nose present Face and sinus: Yes face symmetric Mouth: oropharynx normal and moist mucous membranes Throat: Yes uvula midline Eyes Pupils: Equal, round and reactive pupils present Neck Neck: Yes normal visual inspection and Yes supple Resp Effort & Inspection: normal respiratory effort and able to speak in complete sentences Auscultation: clear to auscultation bilaterally Cardio Rate: regular rate Rhythm: regular rhythm Heart sounds: S1 normal heart sound present and S2 normal heart sound present GI Palpation (GI): Soft to palpation, Tenderness to palpation present (GI) in the LLQ and suprapubicly, no guarding and No Rebound tenderness present Auscultation: normoactive bowel sounds General: Yes no CVA tenderness Back/Spine/Pelvis Back: no CVA tenderness Skin General skin exam: elasticity normal and turgor normal Neuro General: oriented to person, oriented to place, oriented to time, patient oriented x3, moves all extremities, no focal motor deficits and CN's II-XI intact bilaterally Cranial nerves: Yes Equal, round and reactive pupils present Cognition (Neuro): normal cognition Extrem General: Yes full ROM, Yes no pedal edema and Yes no calf tenderness Psych Mental Status: mental status grossly normal Affect: normal affect Thought process: Normal thought process present Course Course Course Narrative: 73 yo female with PMH colon cancer s/p treatment and surgery believes she is in remission but has some new lesions on imaging recently follows with [facility], anemia, COPD, GERD, SBO too many too count at this time noted pain yesterday with no BM since Saturday, n/v today with lack of flatus. Will order labs, CT scan for obstruction ordered. She is distended on exam. this is a RAPID medical screening exam the rest of the history and physical exam is to be done by the main provider. Medical Decision Making Medical Decision Making MDM Narrative: Patient is a 73-year-old female with history of asthma, ILD, colon CA s/p radiation/resection, multiple SBOs, recent unknown abdominal surgery at [facility] 2 weeks ago presenting with sudden onset abdominal pain which began around 1 am, began vomiting one hour after onset of pain. On exam patient is awake, A+Ox3, slightly tachycardic, VS otherwise WNL, afebrile, normal neurological exam without focal deficits, physical exam findings as above. Given reported symptoms and physical exam findings, initial differential includes but is not limited to bowel obstruction, perforation, abscess. Labs notable for mildly elevated transaminases, alk phos. Patient signed out to DENISSE Zuniga pending CT A/P. Lab Data 03/23/24 09:06 03/23/24 09:06 Labs: Lab Results 03/23/24 Range/Units 09:06 WBC 9.1 (4.8-10.8) X10*3/uL RBC 3.42 L (4.20-5.50) X10*6/uL Hgb 11.3 L (12.0-16.0) g/dl Hct 33.2 L (37.0-47.0) % MCV 97.1 (80.0-98.0) fL MCH 33.0 (27.0-33.0) pg MCHC 34.0 (31.0-35.0) g/dl RDW 13.8 (11.0-16.0) % Plt Count 229 (160-400) X10*3/uL MPV 8.6 L (9.4-12.3) fL Immature Gran % (Auto) 0.4 (0.0-0.4) % Neut % (Auto) 81.9 H (45-73) % Lymph % (Auto) 9.3 L (20-40) % [place] % (Auto) 6.7 (2-11) % Eos % (Auto) 1.5 (0-4) % Baso % (Auto) 0.2 (0-2) % Lymph # (Auto) 0.9 L (1.2-4.9) X10*3/uL [place] # (Auto) 0.6 (0.1-1.2) X10*3/uL Eos # (Auto) 0.1 (0.0-0.4) X10*3/uL Baso # (Auto) 0.0 (0.0-0.2) X10*3/uL Abs Immat Gran (auto) 0.04 H (0.00-0.03) X10*3/uL Absolute Neuts (auto) 7.5 (2.0-8.3) x10*3/uL Absolute Nucleated RBC 0.000 (0.0-0.012) X10*3/uL Nucleated RBC % (auto) 0.0 (0.0-0.2) /100WBC Sodium 136 (135-145) mmol/L Potassium 4.6 (3.3-5.1) mmol/L Chloride 108 (96-108) mmol/L Carbon Dioxide 23 (22-29) mmol/L Anion Gap 10 L (12-20) BUN 16 (9-16) mg/dL Creatinine 0.78 (0.5-1.4) mg/dL Estim Creat Clear Calc 55.4 Estimated GFR > 60 Random Glucose 118 H (60-115) mg/dL Calcium 9.0 (8.4-10.2) mg/dL Total Bilirubin 0.5 (0.0-1.0) mg/dL AST 73 H (5-31) U/L ALT 69 H (0-31) U/L Alkaline Phosphatase 137 H (39-117) U/L Total Protein 8.1 H (6.5-8.0) g/dL Albumin 3.6 (3.5-5.0) g/dL Lipase 22 (8-78) U/L Medications Administered Discontinued Medications Generic Name Dose Route Start Last Admin Trade Name Freq PRN Reason Stop Dose Admin Iohexol 100 ml 03/23/24 11:24 03/23/24 11:24 Iohexol 350 Mg/Ml 100 Ml Infus..Btl IV 03/23/24 11:25 85 ml ONCE ONE Administration Morphine Sulfate 4 mg 03/23/24 10:46 03/23/24 11:35 Morphine Sulfate 4 Mg/Ml Cartridge IVPUSH 03/23/24 10:47 4 mg ONCE ONE Administration Protocol Ondansetron HCl 4 mg 03/23/24 10:46 03/23/24 11:35 Ondansetron Hcl 4 Mg/2 Ml Vial IVPUSH 03/23/24 10:47 4 mg ONCE ONE Administration Discharge Plan Discharge Clinical Impression: Abdominal pain Patient Disposition: Still a Patient Prescriptions: No Action fluticasone furoate-vilanterol [Breo Ellipta] 200-25 mcg/dose blister with device 1 inh inhalation DAILY 30 Days Qty: 60 3RF multivitamin Tablet 1 tab PO DAILY hydroxychloroquine 200 mg tablet 200 mg PO DAILY albuterol sulfate [Ventolin HFA] 90 mcg/actuation HFA aerosol inhaler 2 puff inhalation Q4H PRN (Reason: shortness of breath or wheezing) hydrocodone-acetaminophen 5-325 mg tablet 0.5 tab PO QID PRN (Reason: severe pain) lorazepam 1 mg tablet 0.5 mg PO BID@0900,1200 PRN (Reason: Anxiety) lorazepam 1 mg tablet 1 mg PO BEDTIME PRN (Reason: Anxiety) sucralfate 100 mg/mL Suspension 2 g SC BID Qty: 1000 0RF polyethylene glycol 3350 17 gram Powder In Packet 17 g PO DAILY PRN (Reason: Constipation) Qty: 30 0RF cholecalciferol (vitamin D3) 125 mcg (5,000 unit) capsule 125 mcg PO DAILY pantoprazole 40 mg tablet,delayed release (DR/EC) 40 mg PO BID Qty: 60 6RF lidocaine [Lidoderm] 5 % adhesive patch,medicated 1 patch topical DAILY PRN (Reason: Pain) Qty: 30 2RF Rx Instructions: leave on most painful area for up to 12 hours Print Language: Lao
[2024-03-23 11:01] LABS: Lipase 22 U/L (8-78)
[2024-03-23] MEDS: iohexoL 350 MG/ML 100 ML INFUS..BTL IV (11:24)
[2024-03-23] MEDS: Morphine Sulfate 4 MG/ML CARTRIDGE IVPUSH ×2 (11:35→13:28)
[2024-03-23] MEDS: ondansetron HCL 4 MG/2 ML VIAL IVPUSH ×2 (11:35→20:55)
[2024-03-23 13:38] LABS: Appearance Urine Clear; Color Urine Yellow; Glucose Urine UA Negative (Negative); Leukocyte Esterase Urine Negative (Negative); Nitrite Urine Negative (Negative); Specific Gravity - Urine >= 1.030 (1.005-1.025); Urine Blood Negative (Negative); Urine Ketones Negative (Negative); Urine Protein Negative (Neg-Trace)
--- NOTE | 2024-03-23 14:29 | PHA.MEDREC ---
Addendum entered by Maggie Lam RPh 03/23/24 14:41: reviewed by [facility]. Original Note: Pharmacy Consult ? Medication Reconciliation Pharmacy has completed the medication reconciliation. Spoke to patient to confirm med list. Patient was able to name all her medications. Patient states she takes milk thisle and Anila 2 tab daily. Last time patient took her medication was yesterday.
[2024-03-23] MEDS: Lactated Ringers 1,000 ML 100 ML IVCONT (15:15)
--- NOTE | 2024-03-23 15:16 | P.HPGS_ITS ---
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 Patient was also had multiple admissions for partial small bowel obstruction, as well as recent issues with radiation proctitis was significant lower GI bleeding. She now presents with what she describes as a recurrence of her bowel obstruction type issues. She has colicky abdominal pain, abdominal distention, and failure to passively this is her stool over the last day or 2. CT scan findings demonstrates significant stool burden as well as dilated distal small bowel consistent with either an ileus or partial small bowel obstruction. Chart was reviewed and patient evaluated. [facility] Past Medical History Medical History Abdominal pain Bronchiectasis Shoulder pain, bilateral UTI (urinary tract infection) Interstitial lung disease Arthralgia Dizziness Dysuria Acute sinusitis Periumbilical abdominal pain Flank pain Left flank pain Annual physical exam IBS (irritable bowel syndrome) Gastritis Cough Fatigue Scabies Post covid-19 condition, unspecified Elevated LFTs Diarrhea Sinusitis Bronchitis Well woman exam COPD (chronic obstructive pulmonary disease) Radiation proctitis Radiation enteritis Postmenopausal bleeding History of colon cancer SBO (small bowel obstruction) Rectal bleeding Asthma Vertigo Seasonal allergies Hyperglycemia Palpitation Hemochromatosis Tubular adenoma Colon cancer Vaginal cancer Family History Family History Father Dementia GSW (gunshot wound) CAD (coronary artery disease) Mother GSW (gunshot wound) Family/Other Diabetes mellitus Brother CAD (coronary artery disease) Sister Multiple sclerosis Sister Rheumatoid arthritis Sister Rheumatoid arthritis Surgical History Surgical History History of cholecystectomy History of esophagogastroduodenoscopy (EGD) H/O colonoscopy H/O colectomy Social History Social History Household Members: None Household Members Other:: aunt a 96 years old Housing: House Are you a primary long term care social worker to a significant other at home: No Do you presently have visiting nurse or other home services: No Alcohol intake: never Patient Tobacco Use Status: Never used Tobacco e-Cigarette/Vaping Use: Never Used Second Hand Smoke Exposure: No Advance Directives: Yes Advance Directives on File: Yes Advance Directives Date on File: 04/09/22 Do you have a plan to hurt others: No Plan service: No Current occupational status: unemployed Sexual orientation: Straight/Heterosexual Gender identity: Female Meds Allergies Allergy/AdvReac Type Severity Reaction Status Date / Time ciprofloxacin [From Cipro] AdvReac Intermediate Facial Verified 03/23/24 08:53 redness, lip swelling Active Medications: Current Medications Acetaminophen (Acetaminophen 325 Mg Tablet) 650 mg PO Q6H PRN PRN Reason: Pain, Mild 1-3,fever,headache Calcium Carbonate (Calcium Carbonate 750 Mg Tab.Chew) 750 mg PO Q4H PRN PRN Reason: Heartburn Hydromorphone HCl (Hydromorphone Hcl 1 Mg/Ml Syringe) 0.5 mg IVPUSH Q4H PRN; Protocol PRN Reason: Pain, Severe (Pain Scale 7-10) Lactated Ringer's (Lr) 1,000 mls @ 100 mls/hr IVCONT .Q10H [facility] Last Admin: 03/23/24 15:15 Dose: 100 mls/hr Melatonin (Melatonin 3 Mg Tablet) 6 mg PO BEDTIME PRN PRN Reason: Insomnia Ondansetron HCl (Ondansetron Hcl 4 Mg/2 Ml Vial) 4 mg IVPUSH Q8H PRN PRN Reason: Nausea and Vomiting Oxycodone HCl (Oxycodone Hcl Immed Release 5 Mg Tablet) 5 mg PO Q4H PRN PRN Reason: Pain, Moderate(Pain Scale 4-6) Sodium Chloride (0.9 % Sodium Chloride Flush 3 Ml Syringe) 3 ml IVFLUSH QSHIFT [facility] Home Medications ?Medication ?Instructions ?Recorded ?Confirmed ?Last Taken ?Type cholecalciferol (vitamin D3) 125 125 mcg PO DAILY 01/05/22 03/23/24 03/22/24 History mcg (5,000 unit) capsule multivitamin 1 tab PO DAILY 04/08/22 03/23/24 03/22/24 History albuterol sulfate 90 mcg/actuation 2 puff inhalation Q4H PRN 02/13/24 03/23/24 03/22/24 History aerosol inhaler (Ventolin HFA) shortness of breath or wheezing hydrocodone 5 mg-acetaminophen 325 0.5 tab PO QID PRN severe pain 02/13/24 03/23/24 03/22/24 History mg tablet lorazepam 1 mg tablet 1 mg PO BEDTIME PRN Anxiety 02/13/24 03/23/24 03/22/24 History guaifenesin 600 mg tablet, 600 mg PO BID 03/23/24 03/23/24 03/22/24 History extended release 12 hr (Mucinex) hydroxychloroquine 200 mg tablet 300 mg PO DAILY 03/23/24 03/23/24 03/22/24 History mesalamine 1,000 mg rectal 1,000 mg CO BEDTIME 03/23/24 03/23/24 03/22/24 History suppository pantoprazole 40 mg tablet,delayed 40 mg PO BID@0630,1630 03/23/24 03/23/24 03/22/24 History release Physical Exam Vital Signs: Vital Signs: Last Vital Signs Temp 98.1 F 03/23/24 08:51 Pulse 104 H 03/23/24 08:51 Resp 16 03/23/24 08:51 BP 103/68 03/23/24 08:51 Pulse Ox 98 03/23/24 08:51 O2 Del Method Room Air 03/23/24 08:51 BMI result Body Mass Index 26.5 Const: Other: The patient is very conversant, nose or history quite well, and in no acute distress. GI: Other: Abdomen mildly distended. Midline and right lower quadrant scars. No evidence of any incisional hernias or groin hernias. Abdomen mildly tender in the periumbilical area but no evidence of any guarding, rebound, or rigidity. Results Results Labs: Short CBC 03/23/24 Range/Units 09:06 WBC 9.1 (4.8-10.8) X10*3/uL Hgb 11.3 L (12.0-16.0) g/dl Hct 33.2 L (37.0-47.0) % Plt Count 229 (160-400) X10*3/uL BMP 03/23/24 09:06 Sodium 136 Potassium 4.6 Chloride 108 Carbon Dioxide 23 BUN 16 Creatinine 0.78 Calcium 9.0 Liver Function 03/23/24 Range/Units 09:06 Total Bilirubin 0.5 (0.0-1.0) mg/dL AST 73 H (5-31) U/L ALT 69 H (0-31) U/L Alkaline Phosphatase 137 H (39-117) U/L Albumin 3.6 (3.5-5.0) g/dL Urine 03/23/24 Range/Units 13:31 Urine Color Yellow Urine Appearance Clear Urine pH 6.0 (5.0-9.0) Ur Specific [place] >= 1.030 H (1.005-1.025) Urine Protein Negative (Neg-Trace) mg/dL Urine Glucose (UA) Negative (Negative) mg/dL Assessment and Plan (1) History of small bowel obstruction: Status: Acute (2) Partial small bowel obstruction: Status: Acute Plan Current presumption is that the patient is having a recurrence of her partial small bowel obstruction. She is not having any nausea or vomiting so NG tube will be held for now. Current plan is for IV hydration, serial labs and exams. If there is progression of symptoms, consider contrast study but at present we will continue conservative therapy. All questions answered. Patient understands plan. Quality Stroke Does the patient have a stroke diagnosis?: No VTE Prior VTE?: No VTE Risk Level:: Medical - moderate - high VTE Device Contraindication: N/A - Device Ordered VTE Drug Contraindication: Treatment Not Tolerated Procedures Date of Service Date of Service: 03/23/24
[2024-03-23] MEDS: HYDROmorphone HCl 1 MG/ML SYRINGE 0.5 MG IVPUSH ×2 (15:34→20:55)
[2024-03-23] MEDS: 0.9 % Sodium Chloride Flush 3 ML SYRINGE IVFLUSH (17:06)
[2024-03-23] MEDS: Albuterol Sulfate 90 MCG 8 GM INHALER 2 PUFF INHALE (22:30)
[2024-03-24] MEDS: Sucralfate Oral Suspension 1 GM/10 ML ORAL.SUSP 2 GM PR ×3 (00:03→21:24)
[2024-03-24] MEDS: Pantoprazole Sodium 40 MG/10 ML VIAL IVPUSH ×3 (00:03→21:24)
[2024-03-24] MEDS: guaiFENesin LA 600 MG TAB.ER.12H PO ×3 (00:03→21:24)
[2024-03-24] MEDS: 0.9 % Sodium Chloride Flush 3 ML SYRINGE IVFLUSH (00:04)
[2024-03-24] MEDS: Lactated Ringers 1,000 ML 100 ML IVCONT ×3 (00:06→21:24)
[2024-03-24 01:08] VITALS: RESP 18
[2024-03-24] MEDS: HYDROmorphone HCl 1 MG/ML SYRINGE 0.5 MG IVPUSH ×2 (01:08→06:12)
[2024-03-24] MEDS: Albuterol Sulfate 90 MCG 8 GM INHALER 2 PUFF INHALE (06:15)
[2024-03-24 06:28] LABS: Anion Gap 10 (12-20); Blood Urea Nitrogen 16 mg/dL (9-16); Calcium 8.2 mg/dL (8.4-10.2); Carbon Dioxide 24 mmol/L (22-29); Chloride 107 mmol/L (96-108); Creatinine Clr Calc Pharmacy 52.1; Estimated Glomerular Filt Rate > 60; Glucose Random 85 mg/dL (60-115); Potassium 4.5 mmol/L (3.3-5.1); Sodium 136 mmol/L (135-145)
[2024-03-24 06:52] VITALS: BP 103/65; PULSE 100; RESP 12; TEMP 37.2; O2SAT 97
[2024-03-24 08:26] VITALS: BP 124/67; PULSE 66; RESP 18; TEMP 36.6; O2SAT 96
--- NOTE | 2024-03-24 08:44 | P.PNGS_ITS ---
Subjective Subjective Date of Service: 03/24/24 Interval history: Continues to c/o mid abd pain, no significant improvement. Passing small amt of flatus. Denies nausea. Physical Exam 2 Vital Signs: Vital Signs: Last Vital Signs Temp 98 F 03/24/24 08:26 Pulse 66 03/24/24 08:26 Resp 18 03/24/24 08:26 BP 124/67 03/24/24 08:26 Pulse Ox 96 03/24/24 08:26 O2 Del Method Room Air 03/24/24 08:26 BMI result Body Mass Index 26.5 Const: General: comfortable, no acute distress and alert O rientation/consciousness: patient oriented x3 GI: Inspection: Yes distended Palpation (GI): Soft to palpation, Tenderness to palpation present (GI) (mid abdomen) and no guarding Percussion: Yes tympanic to percussion Skin: General skin exam: no rashes or lesions noted Neuro: General: patient oriented x3 and moves all extremities Objective Data Active Medications Acetaminophen (Acetaminophen 325 Mg Tablet) 650 mg PO Q6H PRN PRN Reason: Pain, Mild 1-3,fever,headache Albuterol Sulfate (Albuterol Sulfate 90 Mcg 8 Gm Inhaler) 2 puff INHALE Q4H PRN PRN Reason: shortness of breath or wheezing Last Admin: 03/24/24 06:15 Dose: 2 puff Documented By: PETROS Calcium Carbonate (Calcium Carbonate 750 Mg Tab.Chew) 750 mg PO Q4H PRN PRN Reason: Heartburn Fluticasone/Vilanterol (Fluticasone/Vilanterol 200/25 Blst.W.Dev) 1 puff INHALE RDAILY [facility] Last Admin: 03/24/24 07:18 Dose: Not Given Documented By: MELISSA Non-Admin Reason: pharmacy called for med Guaifenesin (Guaifenesin La 600 Mg Tab.Er.12h) 600 mg PO BID [facility] Last Admin: 03/24/24 00:03 Dose: 600 mg Documented By: PETROS Hydromorphone HCl (Hydromorphone Hcl 1 Mg/Ml Syringe) 0.5 mg IVPUSH Q4H PRN; Protocol PRN Reason: Pain, Severe (Pain Scale 7-10) Last Admin: 03/24/24 06:12 Dose: 0.5 mg Documented By: PETROS Hydroxychloroquine Sulfate (Hydroxychloroquine Sulfate 200 Mg Tablet) 300 mg PO DAILY [facility] Lactated Ringer's (Lr) 1,000 mls @ 100 mls/hr IVCONT .Q10H [facility] Last Admin: 03/24/24 00:06 Dose: 100 mls/hr Documented By: PETROS Lorazepam (Lorazepam 2 Mg/Ml Vial) 0.5 mg IVPUSH BID PRN PRN Reason: Anxiety Melatonin (Melatonin 3 Mg Tablet) 6 mg PO BEDTIME PRN PRN Reason: Insomnia Non-Formulary Medication (Mesalamine) 1,000 mg MO BEDTIME [place] Ondansetron HCl (Ondansetron Hcl 4 Mg/2 Ml Vial) 4 mg IVPUSH Q8H PRN PRN Reason: Nausea and Vomiting Last Admin: 03/23/24 20:55 Dose: 4 mg Documented By: CHANELL Oxycodone HCl (Oxycodone Hcl Immed Release 5 Mg Tablet) 5 mg PO Q4H PRN PRN Reason: Pain, Moderate(Pain Scale 4-6) Pantoprazole Sodium (Pantoprazole Sodium 40 Mg/10 Ml Vial) 40 mg IVPUSH BID [facility] Last Admin: 03/24/24 00:03 Dose: 40 mg Documented By: PETROS Sodium Chloride (0.9 % Sodium Chloride Flush 3 Ml Syringe) 3 ml IVFLUSH QSHIFT [facility] Last Admin: 03/24/24 07:14 Dose: Not Given Documented By: JEAN Non-Admin Reason: Patient Asleep Sucralfate (Sucralfate Oral Suspension 1 Gm/10 Ml Oral.Susp) 2 gm MO BID [facility] Last Admin: 03/24/24 00:03 Dose: 2 gm Documented By: PETROS Labs 03/23/24 09:06 03/24/24 05:59 Labs: Laboratory Results - last 24 hr 03/23/24 03/23/24 03/24/24 09:06 13:31 05:59 MCV 97.1 MCH 33.0 MCHC 34.0 RDW 13.8 Plt Count 229 MPV 8.6 L Immature Gran % (Auto) 0.4 Neut % (Auto) 81.9 H Lymph % (Auto) 9.3 L [place] % (Auto) 6.7 Eos % (Auto) 1.5 Baso % (Auto) 0.2 Lymph # (Auto) 0.9 L [place] # (Auto) 0.6 Eos # (Auto) 0.1 Baso # (Auto) 0.0 Abs Immat Gran (auto) 0.04 H Absolute Neuts (auto) 7.5 Absolute Nucleated RBC 0.000 Nucleated RBC % (auto) 0.0 Anion Gap 10 L 10 L Estim Creat Clear Calc 55.4 52.1 Estimated GFR > 60 > 60 Random Glucose 118 H 85 Calcium 9.0 8.2 L D Total Bilirubin 0.5 AST 73 H ALT 69 H Alkaline Phosphatase 137 H Total Protein 8.1 H Albumin 3.6 Lipase 22 Urine Color Yellow Urine Appearance Clear Urine pH 6.0 Ur Specific [place] >= 1.030 H Urine Protein Negative Urine Glucose (UA) Negative Urine Ketones Negative Urine Blood Negative Urine Nitrite Negative Ur Leukocyte Esterase Negative Procedures Date of Service Date of Service: 03/24/24 Progress Note: A&P Assessment and plan (1) Partial small bowel obstruction: Status: Acute Plan No significant improvement in symptoms. Discussed proceeding with SBFT today however she wants to wait another today. Plan for SBFT tomorrow if no significant improvement in symptoms. Cont IVF, PRN analgesics. Encouraged OOB/ambulation. Patient comfortable with plan. Time Spent With Patient Time: Total time managing care of this patient today ____ minutes. Quality Stroke Does the patient have a stroke diagnosis?: No VTE Prior VTE?: No VTE Risk Level:: Medical - moderate - high VTE Device Contraindication: N/A - Device Ordered VTE Drug Contraindication: Treatment Not Tolerated
[2024-03-24] MEDS: Hydroxychloroquine Sulfate 200 MG TABLET 300 MG PO (09:18)
[2024-03-24] MEDS: Morphine Sulfate 4 MG/ML CARTRIDGE IVPUSH ×4 (10:43→23:30)
--- NOTE | 2024-03-24 13:27 | MHC.CM.PN ---
IMM 03/24/24 Patient lives by herself. She is independent w adls. She uses a walker. A HCP is on file. Preference for [facility] is [facility]. A referral has been sent. [facility] Home with or without [facility]NA services. Patient will arrange for transportation home.
[2024-03-24 15:29] VITALS: BP 102/57; PULSE 85; RESP 18; TEMP 36.6; O2SAT 97
[2024-03-24 19:22] VITALS: BP 107/60; PULSE 91; RESP 18; TEMP 37.1; O2SAT 91
[2024-03-24 19:44] VITALS: BP 142/73; PULSE 95; RESP 18; TEMP 36.5; O2SAT 95
[2024-03-24] MEDS: ondansetron HCL 4 MG/2 ML VIAL IVPUSH (23:27)
[2024-03-25] VITALS (8 sets, daily range): BP systolic 90–138; BP diastolic 54–84; PULSE 87–104; RESP 12–20; TEMP 36.6–37; O2SAT 94–98
[2024-03-25] MEDS: Albuterol Sulfate 90 MCG 8 GM INHALER 2 PUFF INHALE ×2 (00:19→20:07)
[2024-03-25] MEDS: Morphine Sulfate 4 MG/ML CARTRIDGE IVPUSH ×5 (03:39→21:53)
--- NOTE | 2024-03-25 06:45 | PM.PNGS ---
Subjective Subjective Date of Service: 03/25/24 <Mike Lindsey - Last Filed: 03/25/24 07:09> 03/25/24 <Vaishali Rodriguez PA-C - Last Filed: 03/25/24 08:19> 03/25/24 <Bertrand Liang MD - Last Filed: 03/25/24 08:27> Interval history: Patient reports feeling much better. She passed two well-formed, non-bloody stools yesterday as well as flatus. She is tolerating diet well and ambulates without difficulty. She continues to endorse 8/10 upper abdominal pain, mostly over RUQ. She denies fever, nausea or vomiting. <Mike Lindsey - Last Filed: 03/25/24 07:09> Physical Exam Vital Signs: Vital Signs: Last Vital Signs Temp 98.6 F 03/25/24 04:00 Pulse 99 03/25/24 04:00 Resp 18 03/25/24 04:00 BP 138/78 03/25/24 04:00 Pulse Ox 97 03/25/24 04:00 O2 Del Method Room Air 03/25/24 04:00 BMI result Body Mass Index 26.5 <Mike Lindsey - Last Filed: 03/25/24 07:09> Const: General: comfortable and no acute distress <Mike Lindsey - Last Filed: 03/25/24 07:09> Orientation/consciousness: patient oriented x3 <Mike Lindsey - Last Filed: 03/25/24 07:09> HEENT: Other: Moist mucous membranes. <Mike Lindsey - Last Filed: 03/25/24 07:09> Eyes: Other: No scleral icterus. <Mike Lindsey - Last Filed: 03/25/24 07:09> Resp: Effort & Inspection: normal respiratory effort <Mike Lidnsey - Last Filed: 03/25/24 07:09> Auscultation: clear to auscultation bilaterally, no crackles, no rhonchi and no wheezes <Mike Lindsey - Last Filed: 03/25/24 07:09> Cardio: Rate: regular rate <Mike Lindsey - Last Filed: 03/25/24 07:09> Rhythm: regular rhythm <Mikeyasmine Lindsey Last Filed: 03/25/24 07:09> Heart sounds: S1 normal heart sound present, S2 normal heart sound present, no gallops, no murmurs and no rubs <Mikeyasmine Lafleur Last Filed: 03/25/24 07:09> Peripheral pulses: Peripheral pulses 2+ throughout <Mikeyasmine Lafleur Last Filed: 03/25/24 07:09> GI: Other: Distended, diffusely tender to palpation, worse in RUQ without rebound or involuntary guarding. <Mike Miquel Last Filed: 03/25/24 07:09> Percussion: Yes normal to percussion <Mike Jinny Last Filed: 03/25/24 07:09> Auscultation: normal bowel sounds <Mikeyasmine Lafleur Last Filed: 03/25/24 07:09> Neuro: General: patient oriented x3 and moves all extremities <Mikeyasmine Lindsey Last Filed: 03/25/24 07:09> Extrem: Other: No leg edema. Skin warm and dry. <Mikeyasmine Lindsey Last Filed: 03/25/24 07:09> Objective Data Active Medications Acetaminophen (Acetaminophen 325 Mg Tablet) 650 mg PO Q6H PRN PRN Reason: Pain, Mild 1-3,fever,headache Albuterol Sulfate (Albuterol Sulfate 90 Mcg 8 Gm Inhaler) 2 puff INHALE Q4H PRN PRN Reason: shortness of breath or wheezing Last Admin: 03/25/24 00:19 Dose: 2 puff Documented By: NORA Calcium Carbonate (Calcium Carbonate 750 Mg Tab.Chew) 750 mg PO Q4H PRN PRN Reason: Heartburn Fluticasone/Vilanterol (Fluticasone/Vilanterol 200/25 Blst.W.Dev) 1 puff INHALE RDAILY [facility] Last Admin: 03/24/24 07:18 Dose: Not Given Documented By: MELISSA Non-Admin Reason: pharmacy called for med Guaifenesin (Guaifenesin La 600 Mg Tab.Er.12h) 600 mg PO BID [facility] Last Admin: 03/24/24 21:24 Dose: 600 mg Documented By: SVEN Hydroxychloroquine Sulfate (Hydroxychloroquine Sulfate 200 Mg Tablet) 300 mg PO DAILY [facility] Last Admin: 03/24/24 09:18 Dose: 300 mg Documented By: CHADWICK Comments: Lactated Ringer's (Lr) 1,000 mls @ 100 mls/hr IVCONT .Q10H [facility] Last Admin: 03/24/24 21:24 Dose: 100 mls/hr Documented By: SVEN Lorazepam (Lorazepam 2 Mg/Ml Vial) 0.5 mg IVPUSH BID PRN PRN Reason: Anxiety Melatonin (Melatonin 3 Mg Tablet) 6 mg PO BEDTIME PRN PRN Reason: Insomnia Morphine Sulfate (Morphine Sulfate 4 Mg/Ml Cartridge) 4 mg IVPUSH Q4H PRN; Protocol PRN Reason: Pain, Severe (Pain Scale 7-10) Last Admin: 03/25/24 03:39 Dose: 4 mg Documented By: SVEN Non-Formulary Medication (Mesalamine) 1,000 mg DE BEDTIME [facility] Ondansetron HCl (Ondansetron Hcl 4 Mg/2 Ml Vial) 4 mg IVPUSH Q8H PRN PRN Reason: Nausea and Vomiting Last Admin: 03/24/24 23:27 Dose: 4 mg Documented By: SVEN Oxycodone HCl (Oxycodone Hcl Immed Release 5 Mg Tablet) 5 mg PO Q4H PRN PRN Reason: Pain, Moderate(Pain Scale 4-6) Pantoprazole Sodium (Pantoprazole Sodium 40 Mg/10 Ml Vial) 40 mg IVPUSH BID [facility] Last Admin: 03/24/24 21:24 Dose: 40 mg Documented By: SVEN Sodium Chloride (0.9 % Sodium Chloride Flush 3 Ml Syringe) 3 ml IVFLUSH QSHIFT [facility] Last Admin: 03/25/24 00:05 Dose: Not Given Documented By: SVEN Non-Admin Reason: IV Running Sucralfate (Sucralfate Oral Suspension 1 Gm/10 Ml Oral.Susp) 2 gm DE BID [facility] Last Admin: 03/24/24 21:24 Dose: 2 gm Documented By: SVEN <Mike Lindsey - Last Filed: 03/25/24 07:09> Labs CBC & Chem 7: 03/23/24 09:06 03/24/24 05:59 <Mike Lindsey - Last Filed: 03/25/24 07:09> Procedures Date of Service Date of Service: 03/25/24 <Mike Lindsey - Last Filed: 03/25/24 07:09> 03/25/24 <Vaishali Rodriguez PA-C - Last Filed: 03/25/24 08:19> 03/25/24 <Bertrand Liang MD - Last Filed: 03/25/24 08:27> Progress Note: A&P Assessment and plan (1) Partial small bowel obstruction: Status: Acute <Mike Lindsey - Last Filed: 03/25/24 07:09> Assessment and Plan: (1) Partial small bowel obstruction: Status: Acute Plan Patient reports some return of bowel movements yesterday with flatus. Hydration status is good, she is afebrile, with normal HR and has no peritoneal signs. Continue with IVF, prn analgesics and encourage ambulation Can consider advancing diet as tolerated. Can consider Small bowel follow-through today. <Mike Lindsey - Last Filed: 03/25/24 07:09> (1) Partial small bowel obstruction: Status: Acute Plan Patient reports some return of bowel movements yesterday with flatus. Hydration status is good, she is afebrile, with normal HR and has no peritoneal signs. Continue with IVF, prn analgesics and encourage ambulation Can consider advancing diet as tolerated. Can consider Small bowel follow-through today. Seen independently from Mike Lindsey MS-3. PSBO resolving. She feels improved this morning with decreased abd pain. She has began to pass more flatus. Tolerating liquids without nausea, vomiting, increasing distention. Abd exam improved with less tenderness, distention. Will advance to full liquids. Cont OOB/ambulation. Patient requesting metamucil. <Vaishali Rodriguez PA-C - Last Filed: 03/25/24 08:19> (1) Partial small bowel obstruction: Status: Acute Plan Patient reports some return of bowel movements yesterday with flatus. Hydration status is good, she is afebrile, with normal HR and has no peritoneal signs. Continue with IVF, prn analgesics and encourage ambulation Can consider advancing diet as tolerated. Can consider Small bowel follow-through today. Seen independently from Mike Lindsey MS-3. PSBO resolving. She feels improved this morning with decreased abd pain. She has began to pass more flatus. Tolerating liquids without nausea, vomiting, increasing distention. Abd exam improved with less tenderness, distention. Will advance to full liquids. Cont OOB/ambulation. Patient requesting metamucil. As noted above <Bertrand Liang MD - Last Filed: 03/25/24 08:27> Time Spent With Patient Time: Total time managing care of this patient today ____ minutes. <Mike Lindsey - Last Filed: 03/25/24 07:09> Quality Stroke Does the patient have a stroke diagnosis?: No <Mike Lindsey - Last Filed: 03/25/24 07:09> VTE Prior VTE?: No <Mike Lindsey - Last Filed: 03/25/24 07:09> VTE Risk Level:: Medical - moderate - high <Mike Lindsey - Last Filed: 03/25/24 07:09> VTE Device Contraindication: N/A - Device Ordered <Mike Lindsey - Last Filed: 03/25/24 07:09> VTE Drug Contraindication: Treatment Not Tolerated <Mike Lindsey - Last Filed: 03/25/24 07:09>
[2024-03-25] MEDS: Lactated Ringers 1,000 ML 100 ML IVCONT (08:20)
[2024-03-25] MEDS: Sucralfate Oral Suspension 1 GM/10 ML ORAL.SUSP 2 GM PR ×2 (08:21→21:53)
[2024-03-25] MEDS: Hydroxychloroquine Sulfate 200 MG TABLET 300 MG PO (08:25)
[2024-03-25] MEDS: guaiFENesin LA 600 MG TAB.ER.12H PO ×2 (08:25→21:53)
[2024-03-25] MEDS: Fluticasone/Vilanterol 200/25 BLST.W.DEV 1 PUFF INHALE (08:27)
[2024-03-25] MEDS: Pantoprazole Sodium 40 MG/10 ML VIAL IVPUSH ×2 (08:27→21:53)
[2024-03-25] MEDS: ondansetron HCL 4 MG/2 ML VIAL IVPUSH ×2 (08:35→21:49)
[2024-03-25] MEDS: Psyllium seed 3.7 GM PACKET PO (08:38)
--- NOTE | 2024-03-25 15:41 | MHC.CM.PN ---
per rounds pt not ready for dc dc plan [facility] home
[2024-03-25] MEDS: oxyCODONE HCl Immed Release 5 MG TABLET PO (19:47)
[2024-03-25] MEDS: 0.9 % Sodium Chloride Flush 3 ML SYRINGE IVFLUSH (21:53)
[2024-03-26] MEDS: Morphine Sulfate 4 MG/ML CARTRIDGE IVPUSH ×5 (03:54→21:54)
[2024-03-26 04:00] VITALS: BP 108/55; PULSE 107; RESP 18; TEMP 37.3; O2SAT 93
--- NOTE | 2024-03-26 07:09 | P.PNGS_ITS ---
Subjective Subjective Date of Service: 03/26/24 <Mike Lindsey - Last Filed: 03/26/24 07:30> 03/26/24 <Vaishali Rodriguez PA-C - Last Filed: 03/26/24 09:47> 03/26/24 <Bertrand Liang MD - Last Filed: 03/26/24 09:50> Interval history: Patient continues to report improvement. She has passed one hard, non- bloody stool yesterday along with flatus and states that metamucil helped her greatly. She is requesting two doses of metamucil/day which she is adamant will help her. Her pain has slightly improved to a 7/10 and is mostly located in the mid/left-sided abdomen. She is ambulating well and has minimal cough and dyspnea which she says she sometimes uses albuterol prn at home to help with. Patient ate broth and frequently drinks water; she feels ready to try solid foods. Patient denies fever, nausea, vomiting. <Mike Lindsey - Last Filed: 03/26/24 07:30> Physical Exam 2 Vital Signs: Vital Signs: Last Vital Signs Temp 99.2 F 03/26/24 04:00 Pulse 107 H 03/26/24 04:00 Resp 18 03/26/24 04:00 BP 108/55 L 03/26/24 04:00 Pulse Ox 93 03/26/24 04:00 O2 Del Method Room Air 03/26/24 04:00 BMI result Body Mass Index 26.5 <Mike Lindsey - Last Filed: 03/26/24 07:30> Const: General: comfortable and no acute distress <Mike Lindsey - Last Filed: 03/26/24 07:30> Orientation/consciousness: patient oriented x3 <Mike Lindsey - Last Filed: 03/26/24 07:30> HEENT: Other: Mouth dry. No scleral icterus. <Mike Lindsey - Last Filed: 03/26/24 07:30> Resp: Effort & Inspection: normal respiratory effort <Mike Lindsey - Last Filed: 03/26/24 07:30> Auscultation: clear to auscultation bilaterally, no crackles, no rhonchi and no wheezes <Mike Corbinálvarokhadijah Last Filed: 03/26/24 07:30> Cardio: Rate: regular rate <Mike Lindsey Last Filed: 03/26/24 07:30> Rhythm: regular rhythm <Mike Lindsey Last Filed: 03/26/24 07:30> Heart sounds: S1 normal heart sound present, S2 normal heart sound present, no gallops, no murmurs and no rubs <Mike Lindsey Last Filed: 03/26/24 07:30> GI: Other: Abdomen slightly distended. Bowel sounds auscultated. Tender to palpation diffusely, more on left. No guarding or rigidity. <Mike Lindsey Last Filed: 03/26/24 07:30> Other: Abdomen slightly distended, soft. Bowel sounds auscultated. Mild tenderness to palpation diffusely, more on left. No guarding or rigidity. <Vaishali Rodriguez PA-C - Last Filed: 03/26/24 09:47> Skin: General skin exam: no rashes or lesions noted <Vaishali Rodriguez PA-C - Last Filed: 03/26/24 09:47> Neuro: General: patient oriented x3 <Mike Lindsey Last Filed: 03/26/24 07:30> Motor exam (neuro): 5/5 motor strength present throughout <Mike Corbinálvarokhadijah Last Filed: 03/26/24 07:30> Objective Data Active Medications Acetaminophen (Acetaminophen 325 Mg Tablet) 650 mg PO Q6H PRN PRN Reason: Pain, Mild 1-3,fever,headache Albuterol Sulfate (Albuterol Sulfate 90 Mcg 8 Gm Inhaler) 2 puff INHALE Q4H PRN PRN Reason: shortness of breath or wheezing Last Admin: 03/25/24 20:07 Dose: 2 puff Documented By: RAISSA Calcium Carbonate (Calcium Carbonate 750 Mg Tab.Chew) 750 mg PO Q4H PRN PRN Reason: Heartburn Fluticasone/Vilanterol (Fluticasone/Vilanterol 200/25 Blst.W.Dev) 1 puff INHALE [facility] Last Admin: 03/25/24 08:27 Dose: 1 puff Documented By: CHRIS Guaifenesin (Guaifenesin La 600 Mg Tab.Er.12h) 600 mg PO BID [facility] Last Admin: 03/25/24 21:53 Dose: 600 mg Documented By: SVEN Hydroxychloroquine Sulfate (Hydroxychloroquine Sulfate 200 Mg Tablet) 300 mg PO DAILY [facility] Last Admin: 03/25/24 08:25 Dose: 300 mg Documented By: KRYSTEN Lorazepam (Lorazepam 2 Mg/Ml Vial) 0.5 mg IVPUSH BID PRN PRN Reason: Anxiety Melatonin (Melatonin 3 Mg Tablet) 6 mg PO BEDTIME PRN PRN Reason: Insomnia Morphine Sulfate (Morphine Sulfate 4 Mg/Ml Cartridge) 4 mg IVPUSH Q4H PRN; Protocol PRN Reason: Pain, Severe (Pain Scale 7-10) Last Admin: 03/26/24 03:54 Dose: 4 mg Documented By: SVEN Non-Formulary Medication (Mesalamine) 1,000 mg [place] BEDTIME [facility] Ondansetron HCl (Ondansetron Hcl 4 Mg/2 Ml Vial) 4 mg IVPUSH Q8H PRN PRN Reason: Nausea and Vomiting Last Admin: 03/25/24 21:49 Dose: 4 mg Documented By: SVEN Oxycodone HCl (Oxycodone Hcl Immed Release 5 Mg Tablet) 5 mg PO Q4H PRN PRN Reason: Pain, Moderate(Pain Scale 4-6) Last Admin: 03/25/24 19:47 Dose: 5 mg Documented By: SVEN Pantoprazole Sodium (Pantoprazole Sodium 40 Mg/10 Ml Vial) 40 mg IVPUSH BID [facility] Last Admin: 03/25/24 21:53 Dose: 40 mg Documented By: SVEN Psyllium Hydrophilic Mucilloid (Psyllium Seed 3.7 Gm Packet) 3.7 gm PO DAILY [facility] Last Admin: 03/25/24 08:38 Dose: 3.7 gm Documented By: KRYSTEN Sodium Chloride (0.9 % Sodium Chloride Flush 3 Ml Syringe) 3 ml IVFLUSH QSHIFT [facility] Last Admin: 03/25/24 21:53 Dose: 3 ml Documented By: SVEN Sucralfate (Sucralfate Oral Suspension 1 Gm/10 Ml Oral.Susp) 2 gm [place] BID [facility] Last Admin: 03/25/24 21:53 Dose: 2 gm Documented By: SVEN <Mike Lindsey - Last Filed: 03/26/24 07:30> Labs CBC & Chem 7: 03/23/24 09:06 03/24/24 05:59 <Mike Lindsey - Last Filed: 03/26/24 07:30> Procedures Date of Service Date of Service: 03/26/24 <Mike Lindsey - Last Filed: 03/26/24 07:30> 03/26/24 <Vaishali Rodriguez PA-C - Last Filed: 03/26/24 09:47> 03/26/24 <Bertrand Liang MD - Last Filed: 03/26/24 09:50> Progress Note: A&P Assessment and plan (1) Partial small bowel obstruction: Status: Acute <Mike Lindsey - Last Filed: 03/26/24 07:30> Assessment and Plan: 1. Partial small bowel obstruction: Status: Acute Patient overall improving with BMs, flatus, pain control and ambulation. Will advance diet to solid foods as tolerated. Patient given incentive spirometer and encouraged to continue OOB/ambulation. We can give her metamucil x2 day as requested. <Mike Lindsey - Last Filed: 03/26/24 07:30> 1. Partial small bowel obstruction: Status: Acute Patient overall improving with BMs, flatus, pain control and ambulation. Will advance diet to solid foods as tolerated. Patient given incentive spirometer and encouraged to continue OOB/ambulation. Agree with above assessment and plan by Mike Lindsey MS3. Patient reports some improvement in abd pain and is passing flatus and a hard BM yesterday. Some occasional nausea. Will advance to solid diet as tolerated. Cont OOB/ambulation, IS use. Bowel regimen. <Vaishali Rodriguez PA-C - Last Filed: 03/26/24 09:47> Time Spent With Patient Time: Total time managing care of this patient today ____ minutes. <Mike Lindsey - Last Filed: 03/26/24 07:30> Quality Stroke Does the patient have a stroke diagnosis?: No <Mike Lindsey - Last Filed: 03/26/24 07:30> VTE Prior VTE?: No <Mike Lindsey - Last Filed: 03/26/24 07:30> VTE Risk Level:: Medical - moderate - high <Mike Lindsey - Last Filed: 03/26/24 07:30> VTE Device Contraindication: N/A - Device Ordered <Mike Lindsey - Last Filed: 03/26/24 07:30> VTE Drug Contraindication: Treatment Not Tolerated <Mike Lindsey - Last Filed: 03/26/24 07:30>
[2024-03-26 07:20] VITALS: BP 114/67; PULSE 95; RESP 16; TEMP 36.9; O2SAT 93
[2024-03-26] MEDS: Fluticasone/Vilanterol 200/25 BLST.W.DEV 1 PUFF INHALE (07:58)
[2024-03-26 08:01] VITALS: PULSE 98; RESP 17; O2SAT 96
[2024-03-26] MEDS: Psyllium seed 3.7 GM PACKET PO (08:29)
[2024-03-26] MEDS: Sucralfate Oral Suspension 1 GM/10 ML ORAL.SUSP 2 GM PR ×2 (08:30→21:53)
[2024-03-26] MEDS: guaiFENesin LA 600 MG TAB.ER.12H PO ×2 (08:31→21:53)
[2024-03-26] MEDS: Hydroxychloroquine Sulfate 200 MG TABLET 300 MG PO (08:31)
[2024-03-26] MEDS: 0.9 % Sodium Chloride Flush 3 ML SYRINGE IVFLUSH ×3 (08:32→21:54)
[2024-03-26] MEDS: Pantoprazole Sodium 40 MG/10 ML VIAL IVPUSH ×2 (08:34→21:54)
[2024-03-26] MEDS: ondansetron HCL 4 MG/2 ML VIAL IVPUSH (08:40)
[2024-03-26] MEDS: oxyCODONE HCl Immed Release 5 MG TABLET PO ×2 (11:41→16:37)
[2024-03-26 15:06] VITALS: BP 106/60; PULSE 81; RESP 18; TEMP 36.4; O2SAT 95
[2024-03-26] MEDS: Omeprazole 20 MG CAPSULE.DR PO (16:32)
[2024-03-26 19:28] VITALS: BP 134/74; PULSE 91; RESP 18; TEMP 36.5; O2SAT 96
[2024-03-27] VITALS (10 sets, daily range): BP systolic 102–122; BP diastolic 57–82; PULSE 77–101; RESP 16–20; TEMP 36–37.5; O2SAT 93–99
--- NOTE | 2024-03-27 | ECG_ITS ---
Test Reason : syncope Blood Pressure : */* mmHG Vent. Rate : 92 BPM Atrial Rate : 92 BPM P-R Int : 152 ms QRS Dur : 96 ms QT Int : 370 ms P-R-T Axes : 35 -30 1 degrees QTcB Int : 457 ms Normal sinus rhythm Left axis deviation Incomplete right bundle branch block Moderate voltage criteria for LVH, may be normal variant ( R in aVL , [place] product ) Possible Anterior infarct (cited on or before 12-Mar-2018) Abnormal ECG When compared with ECG of 23-Sep-2022 12:30, Premature ventricular complexes are no longer Present Referred By: Lalito Rico Electronically Signed By: MARGIE ALLEN MD
[2024-03-27] MEDS: ondansetron HCL 4 MG/2 ML VIAL IVPUSH ×2 (06:26→13:35)
[2024-03-27] MEDS: Omeprazole 20 MG CAPSULE.DR PO ×2 (06:26→17:15)
[2024-03-27] MEDS: Sennosides/Docusate Sodium TABLET 1 TAB PO (06:34)
[2024-03-27] MEDS: Morphine Sulfate 4 MG/ML CARTRIDGE IVPUSH ×3 (06:34→19:16)
[2024-03-27] MEDS: Fluticasone/Vilanterol 200/25 BLST.W.DEV 1 PUFF INHALE (07:37)
[2024-03-27] MEDS: Psyllium seed 3.7 GM PACKET PO (07:44)
[2024-03-27] MEDS: guaiFENesin LA 600 MG TAB.ER.12H PO ×2 (07:44→19:34)
[2024-03-27] MEDS: 0.9 % Sodium Chloride Flush 3 ML SYRINGE IVFLUSH ×2 (07:45→16:02)
[2024-03-27] MEDS: Sucralfate Oral Suspension 1 GM/10 ML ORAL.SUSP 2 GM PR ×2 (07:45→19:34)
--- NOTE | 2024-03-27 08:54 | PM.PNGS ---
Subjective Subjective Date of Service: 03/27/24 <Mike Lindsey - Last Filed: 03/27/24 10:13> 03/27/24 <Vaishali Rodriguez PA-C - Last Filed: 03/27/24 11:43> 03/27/24 <Bertrand Liang MD - Last Filed: 03/27/24 11:45> Interval history: Patient reports that she did not pass any BMs yesterday, only minimal flatus. She says that miscommunication with [employer] occured and she did not receive any dinner. Due to hunger she had one episode of nonbilious, non-bloody emesis. She endorses increased pain / which woke her up during the night. She endorses pressure in the left abdomen which she believes is impacted stool. Patient recieved one metamucil and one Senokot without relief; she states that previous occasions she has had enemas. Patient frequently ambulates and uses incentive spirometer; she was re-started on her home inhalers. She denies any fever, bloody stools. <Mike Lindsey - Last Filed: 03/27/24 10:13> Physical Exam Vital Signs: Vital Signs: Last Vital Signs Temp 97.4 F 03/27/24 07:39 Pulse 94 03/27/24 07:39 Resp 18 03/27/24 07:39 BP 119/64 03/27/24 07:39 Pulse Ox 94 03/27/24 07:39 O2 Del Method Room Air 03/27/24 07:39 BMI result Body Mass Index 26.5 <Mike Lindsey - Last Filed: 03/27/24 10:13> Const: General: comfortable, no acute distress, alert and awake <Mike Lindsey - Last Filed: 03/27/24 10:13> Eyes: Other: Non-icteric. <Mike Lindsey - Last Filed: 03/27/24 10:13> Resp: Effort & Inspection: normal respiratory effort <Mike Lindsey - Last Filed: 03/27/24 10:13> Auscultation: clear to auscultation bilaterally, no rales, no rhonchi and no wheezes <Mike Lindsey - Last Filed: 03/27/24 10:13> Cardio: Rate: regular rate [facility] Last Filed: 03/27/24 10:13> Rhythm: regular rhythm <[facility] Last Filed: 03/27/24 10:13> GI: Other: Moderately distended with firmness in LLQ. Tenderness diffuseley, worsen on left > right. No guarding or rigidity. <[facility] Last Filed: 03/27/24 10:13> Neuro: Motor exam (neuro): 5/5 motor strength present throughout <Mikeyasmine Lindsey Last Filed: 03/27/24 10:13> Objective Data Active Medications Acetaminophen (Acetaminophen 325 Mg Tablet) 650 mg PO Q6H PRN PRN Reason: Pain, Mild 1-3,fever,headache Albuterol Sulfate (Albuterol Sulfate 90 Mcg 8 Gm Inhaler) 2 puff INHALE Q4H PRN PRN Reason: shortness of breath or wheezing Last Admin: 03/25/24 20:07 Dose: 2 puff Documented By: RAISSA Calcium Carbonate (Calcium Carbonate 750 Mg Tab.Chew) 750 mg PO Q4H PRN PRN Reason: Heartburn Fluticasone/Vilanterol (Fluticasone/Vilanterol 200/25 Blst.W.Dev) 1 puff INHALE RDAILY [facility] Last Admin: 03/27/24 07:37 Dose: 1 puff Documented By: MELISSA Guaifenesin (Guaifenesin La 600 Mg Tab.Er.12h) 600 mg PO BID [facility] Last Admin: 03/27/24 07:44 Dose: 600 mg Documented By: ROBERT Hydroxychloroquine Sulfate (Hydroxychloroquine Sulfate 200 Mg Tablet) 300 mg PO DAILY [facility] Last Admin: 03/27/24 07:51 Dose: Not Given Documented By: ROBERT Non-Admin Reason: Patient Refused Lorazepam (Lorazepam 2 Mg/Ml Vial) 0.5 mg IVPUSH BID PRN PRN Reason: Anxiety Melatonin (Melatonin 3 Mg Tablet) 6 mg PO BEDTIME PRN PRN Reason: Insomnia Morphine Sulfate (Morphine Sulfate 4 Mg/Ml Cartridge) 4 mg IVPUSH Q4H PRN; Protocol PRN Reason: Pain, Severe (Pain Scale 7-10) Last Admin: 03/27/24 06:34 Dose: 4 mg Documented By: SVEN Non-Formulary Medication (Mesalamine) 1,000 mg [place] BEDTIME [facility] Omeprazole (Omeprazole 20 Mg Capsule.Dr) 20 mg PO BID@0630,1630 [facility] Last Admin: 03/27/24 06:26 Dose: 20 mg Documented By: SVEN Ondansetron HCl (Ondansetron Hcl 4 Mg/2 Ml Vial) 4 mg IVPUSH Q8H PRN PRN Reason: Nausea and Vomiting Last Admin: 03/27/24 06:26 Dose: 4 mg Documented By: SVEN Oxycodone HCl (Oxycodone Hcl Immed Release 5 Mg Tablet) 5 mg PO Q4H PRN PRN Reason: Pain, Moderate(Pain Scale 4-6) Last Admin: 03/26/24 16:37 Dose: 5 mg Documented By: KRYSTEN Psyllium Hydrophilic Mucilloid (Psyllium Seed 3.7 Gm Packet) 3.7 gm PO DAILY [facility] Last Admin: 03/27/24 07:44 Dose: 3.7 gm Documented By: ROBERT Senna/Docusate Sodium (Sennosides/Docusate Sodium Tablet) 1 tab PO BID PRN PRN Reason: Constipation Last Admin: 03/27/24 06:34 Dose: 1 tab Documented By: SVEN Sodium Chloride (0.9 % Sodium Chloride Flush 3 Ml Syringe) 3 ml IVFLUSH QSHIFT [facility] Last Admin: 03/27/24 07:45 Dose: 3 ml Documented By: ROBERT Sucralfate (Sucralfate Oral Suspension 1 Gm/10 Ml Oral.Susp) 2 gm OK BID [facility] Last Admin: 03/27/24 07:45 Dose: 2 gm Documented By: ROBERT <Mike Lindsey - Last Filed: 03/27/24 10:13> Labs CBC & Chem 7: 03/23/24 09:06 03/24/24 05:59 <Mike Lindsey - Last Filed: 03/27/24 10:13> Procedures Date of Service Date of Service: 03/27/24 <Mike Lindsey - Last Filed: 03/27/24 10:13> 03/27/24 <Vaishali Rodriguez PA-C - Last Filed: 03/27/24 11:43> 03/27/24 <Bertrand Liang MD - Last Filed: 03/27/24 11:45> Progress Note: A&P Assessment and plan (1) Partial small bowel obstruction: Status: Acute <Mike Lindsey - Last Filed: 03/27/24 10:13> Assessment and Plan: 1. Partial small bowel obstruction: Status: Acute Patient is on admission day 4 for SBO. She has only passed one small BM in last two days, continues to have flatus; has ongoing abdominal pain and left abdominal distention. Patient can continue on solid diet as tolerated. Can consider SBFT or enema as patient requested if she continues to not pass stool. Continue IS, home inhalers and OOB/ambulation. <Mike Lindsey - Last Filed: 03/27/24 10:13> 1. Partial small bowel obstruction: Status: Acute Patient is on admission day 4 for SBO. She has only passed one small BM in last two days, continues to have flatus; has ongoing abdominal pain and left abdominal distention. Patient can continue on solid diet as tolerated. Can consider SBFT or enema as patient requested if she continues to not pass stool. Continue IS, home inhalers and OOB/ambulation. Agree with above assessment and plan by Mike Lindsey. She has persistent abd pain and now nausea, abd distention on exam. Will obtain SBFT for further eval, hopefully which will be therapeutic as well. Repeat routine labs. Patient comfortable with plan. <Vaishali Rodriguez PA-C - Last Filed: 03/27/24 11:43> Time Spent With Patient Time: Total time managing care of this patient today ____ minutes. <Mike Lindsey - Last Filed: 03/27/24 10:13> Quality Stroke Does the patient have a stroke diagnosis?: No <Mike Lindsey - Last Filed: 03/27/24 10:13> VTE Prior VTE?: No <Mike Lindsey - Last Filed: 03/27/24 10:13> VTE Risk Level:: Medical - moderate - high <Mike Acosta Last Filed: 03/27/24 10:13> VTE Device Contraindication: N/A - Device Ordered <Mike Lindsey - Last Filed: 03/27/24 10:13> VTE Drug Contraindication: Treatment Not Tolerated <Mike Lindsey - Last Filed: 03/27/24 10:13>
--- NOTE | 2024-03-27 11:55 | MHC.CM.PN ---
Per MD rounds Patient is not medically cleared for discharge. Diet advanced. DP home woth or with out [facility]. She will arrange for a ride home.
[2024-03-27 12:42] LABS: Glucose, Whole Blood 111 mg/dL (60-115)
[2024-03-27] MEDS: Lactated Ringers 1,000 ML 999 ML IV (12:44)
--- NOTE | 2024-03-27 12:44 | P.CONIM_ITS ---
History of Present Illness Data of Consult Service Date: 03/27/24 Primary Care Provider: Catie Isabel CNP HPI Reason for consult: Rapid response for unresponsiveness 73F PMH COPD/moderate persistent asthma, radiation proctitis, colon cancer, hemochromatosis, vaginal cancer, history of small-bowel obstruction admitted to general surgery service on 03/23/2024 for small-bowel. Was passing small stools and flatus but still having abdominal pain and distention. Patient was getting small-bowel follow-through study, had taken oral contrast and was waiting for image and became unresponsive in [facility]. Rapid response was called. Patient was not responding even to deep sternal rub. Was breathing agonaly, had carotid pulse but radial pulse was not palpable. This lasted approximately 3 minutes, then patient suddenly sat up and began to vomit. Became more alert. Systolic blood pressure was in the 90s. Blood sugar was 111, EKG normal sinus. Review of Systems 2 Review of Systems: Yes all other systems are reviewed and are negative [facility] Medical History (Updated 03/27/24 @ 12:49 by Lalito Rico MD) Syncope Abdominal pain Bronchiectasis Shoulder pain, bilateral UTI (urinary tract infection) Interstitial lung disease Arthralgia Dizziness Dysuria Acute sinusitis Periumbilical abdominal pain Flank pain Left flank pain Annual physical exam IBS (irritable bowel syndrome) Gastritis Cough Fatigue Scabies Post covid-19 condition, unspecified Elevated LFTs Diarrhea Sinusitis Bronchitis Well woman exam COPD (chronic obstructive pulmonary disease) Radiation proctitis Radiation enteritis Postmenopausal bleeding History of colon cancer SBO (small bowel obstruction) Rectal bleeding Asthma Vertigo Seasonal allergies Hyperglycemia Palpitation Hemochromatosis Tubular adenoma Colon cancer Vaginal cancer Family History Father Dementia GSW (gunshot wound) CAD (coronary artery disease) Mother GSW (gunshot wound) Family/Other Diabetes mellitus Brother CAD (coronary artery disease) Sister Multiple sclerosis Sister Rheumatoid arthritis Sister Rheumatoid arthritis Surgical History History of cholecystectomy History of esophagogastroduodenoscopy (EGD) H/O colonoscopy H/O colectomy Social History Household Members: None Household Members Other:: aunt a 96 years old Housing: House Are you a primary point of care specialist to a significant other at home: No Do you presently have visiting nurse or other home services: No Unable to assess alcohol history related to: Unknown Alcohol intake: never Patient Tobacco Use Status: Never used Tobacco e-Cigarette/Vaping Use: Never Used Second Hand Smoke Exposure: No Advance Directives Date on File: 04/09/22 service: No Current occupational status: unemployed Sexual orientation: Straight/Heterosexual Gender identity: Female Meds Allergies Allergy/AdvReac Type Severity Reaction Status Date / Time ciprofloxacin [From Cipro] AdvReac Intermediate Facial Verified 03/23/24 08:53 redness, lip swelling Active Medications: Current Medications Acetaminophen (Acetaminophen 325 Mg Tablet) 650 mg PO Q6H PRN PRN Reason: Pain, Mild 1-3,fever,headache Albuterol Sulfate (Albuterol Sulfate 90 Mcg 8 Gm Inhaler) 2 puff INHALE Q4H PRN PRN Reason: shortness of breath or wheezing Last Admin: 03/25/24 20:07 Dose: 2 puff Calcium Carbonate (Calcium Carbonate 750 Mg Tab.Chew) 750 mg PO Q4H PRN PRN Reason: Heartburn Fluticasone/Vilanterol (Fluticasone/Vilanterol 200/25 Blst.W.Dev) 1 puff INHALE RDAILY [facility] Last Admin: 03/27/24 07:37 Dose: 1 puff Guaifenesin (Guaifenesin La 600 Mg Tab.Er.12h) 600 mg PO BID [facility] Last Admin: 03/27/24 07:44 Dose: 600 mg Hydroxychloroquine Sulfate (Hydroxychloroquine Sulfate 200 Mg Tablet) 300 mg PO DAILY [facility] Last Admin: 03/27/24 07:51 Dose: Not Given Lactated Ringer's (Lr) 1,000 mls @ 999 mls/hr IV .Q1H1M [facility] Stop: 03/27/24 13:45 Lorazepam (Lorazepam 2 Mg/Ml Vial) 0.5 mg IVPUSH BID PRN PRN Reason: Anxiety Melatonin (Melatonin 3 Mg Tablet) 6 mg PO BEDTIME PRN PRN Reason: Insomnia Morphine Sulfate (Morphine Sulfate 4 Mg/Ml Cartridge) 4 mg IVPUSH Q4H PRN; Protocol PRN Reason: Pain, Severe (Pain Scale 7-10) Last Admin: 03/27/24 06:34 Dose: 4 mg Non-Formulary Medication (Mesalamine) 1,000 mg [place] BEDTIME [facility] Omeprazole (Omeprazole 20 Mg Capsule.Dr) 20 mg PO BID@0630,1630 [facility] Last Admin: 03/27/24 06:26 Dose: 20 mg Ondansetron HCl (Ondansetron Hcl 4 Mg/2 Ml Vial) 4 mg IVPUSH Q8H PRN PRN Reason: Nausea and Vomiting Last Admin: 03/27/24 06:26 Dose: 4 mg Oxycodone HCl (Oxycodone Hcl Immed Release 5 Mg Tablet) 5 mg PO Q4H PRN PRN Reason: Pain, Moderate(Pain Scale 4-6) Last Admin: 03/26/24 16:37 Dose: 5 mg Psyllium Hydrophilic Mucilloid (Psyllium Seed 3.7 Gm Packet) 3.7 gm PO DAILY [facility] Last Admin: 03/27/24 07:44 Dose: 3.7 gm Senna/Docusate Sodium (Sennosides/Docusate Sodium Tablet) 1 tab PO BID PRN PRN Reason: Constipation Last Admin: 03/27/24 06:34 Dose: 1 tab Sodium Chloride (0.9 % Sodium Chloride Flush 3 Ml Syringe) 3 ml IVFLUSH QSHIFT [facility] Last Admin: 03/27/24 07:45 Dose: 3 ml Sucralfate (Sucralfate Oral Suspension 1 Gm/10 Ml Oral.Susp) 2 gm [place] BID [facility] Last Admin: 03/27/24 07:45 Dose: 2 gm Home Medications ?Medication ?Instructions ?Recorded ?Confirmed ?Last Taken ?Type cholecalciferol (vitamin D3) 125 125 mcg PO DAILY 01/05/22 03/23/24 03/22/24 History mcg (5,000 unit) capsule multivitamin 1 tab PO DAILY 04/08/22 03/23/24 03/22/24 History albuterol sulfate 90 mcg/actuation 2 puff inhalation Q4H PRN 02/13/24 03/23/24 03/22/24 History aerosol inhaler (Ventolin HFA) shortness of breath or wheezing hydrocodone 5 mg-acetaminophen 325 0.5 tab PO QID PRN severe pain 02/13/24 03/23/24 03/22/24 History mg tablet lorazepam 1 mg tablet 1 mg PO BEDTIME PRN Anxiety 02/13/24 03/23/24 03/22/24 History guaifenesin 600 mg tablet, 600 mg PO BID 03/23/24 03/23/24 03/22/24 History extended release 12 hr (Mucinex) hydroxychloroquine 200 mg tablet 300 mg PO DAILY 03/23/24 03/23/24 03/22/24 History mesalamine 1,000 mg rectal 1,000 mg [place] BEDTIME 03/23/24 03/23/24 03/22/24 History suppository pantoprazole 40 mg tablet,delayed 40 mg PO BID@0630,1630 03/23/24 03/23/24 03/22/24 History release Physical Exam 2 Vital Signs and Narrative: Vital Signs: Last Vital Signs Temp 97.4 F 03/27/24 07:39 Pulse 94 03/27/24 07:39 Resp 18 03/27/24 07:39 BP 119/64 03/27/24 07:39 Pulse Ox 94 03/27/24 07:39 O2 Del Method Room Air 03/27/24 07:39 BMI result Body Mass Index 26.5 General: Lethargic, oriented x3, diaphoretic ill-appearing Resp: CTA bilateral, no accessory muscles used CVS: S1,S2,RRR Neuro: motor grossly intact, alert Results Labs 03/23/24 09:06 03/24/24 05:59 Labs: Laboratory Results - last 24 hr 03/27/24 12:29 POC Glucose 111 Assessment and Plan (1) Syncope: Status: Acute Plan 73F PMH COPD/moderate persistent asthma, radiation proctitis, colon cancer, hemochromatosis, vaginal cancer, history of small-bowel obstruction admitted to general surgery service on 03/23/2024 for small-bowel, rapid response called for on response Syncope Suspect severe vasovagal, can not rule out arrhythmia Monitor on telemetry, follow-up labs including troponin, lactate 1L LR moinitor bp
[2024-03-27 13:09] LABS: Basophils Percent Auto 0.2 % (0-2); Eosinophils Absolute Auto 0.2 X10*3/uL (0.0-0.4); Eosinophils Percent Auto 2.2 % (0-4); Hematocrit 33.1 % (37.0-47.0); Hemoglobin 11.3 g/dl (12.0-16.0); Imm Gran Abs Auto 0.03 X10*3/uL (0.00-0.03); Imm Gran Pct Auto 0.4 % (0.0-0.4); Lymphocytes Absolute Auto 1.1 X10*3/uL (1.2-4.9); Lymphocytes Percent Auto 13.8 % (20-40); MANUAL DIFF FLAG NO; Mean Corpuscular HGB Conc 34.1 g/dl (31.0-35.0); Mean Corpuscular Hemoglobin 33.2 pg (27.0-33.0); Mean Corpuscular Volume 97.4 fL (80.0-98.0); Mean Platelet Volume 8.9 fL (9.4-12.3); Monocytes Absolute Auto 0.7 X10*3/uL (0.1-1.2); Monocytes Percent Auto 8.8 % (2-11); Neutrophils Percent Auto 74.6 % (45-73); Platelet Count 214 X10*3/uL (160-400); Red Cell Distribution Width 13.2 % (11.0-16.0); White Blood Count 8.1 X10*3/uL (4.8-10.8)
[2024-03-27 13:18] LABS: Lactic Acid 1.3 mmol/L (0.5-2.0)
[2024-03-27 13:20] LABS: Alanine Aminotransferase 37 U/L (0-31); Albumin Level 3.4 g/dL (3.5-5.0); Alkaline Phosphatase 119 U/L (39-117); Anion Gap 9 (12-20); Aspartate Amino Transferase 54 U/L (5-31); Bilirubin Direct 0.2 mg/dL (0.0-0.5); Bilirubin Total 0.6 mg/dL (0.0-1.0); Blood Urea Nitrogen 9 mg/dL (9-16); Calcium 8.6 mg/dL (8.4-10.2); Carbon Dioxide 23 mmol/L (22-29); Chloride 107 mmol/L (96-108); Creatinine Clr Calc Pharmacy 53.4; Estimated Glomerular Filt Rate > 60; Glucose Random 123 mg/dL (60-115); Potassium 4.3 mmol/L (3.3-5.1); Sodium 135 mmol/L (135-145); Total Protein 8.3 g/dL (6.5-8.0)
--- NOTE | 2024-03-27 13:21 | PC.NURSE ---
Rapid response called in radiology, see rapid response flow sheet for details.
[2024-03-27 13:25] LABS: Troponin-I High Sensitivity < 2.7 ng/L (<3.5-17.0)
--- NOTE | 2024-03-27 14:01 | PM.EVENT ---
Event Note Date of Service: 03/27/24 Event Note: Rapid response called in radiology after patient became unresponsive. Patient sat upright and vomited after sternal rub. VSS- BP somewhat soft and was given IVF bolus. CBC, BMP troponon WNL. EKG sinus rhythm. Hospitalists consulted and possible vasovagal episode. Alert and oriented x3, abd soft with mild diffuse tenderness on exam. She was having SBFT in radiology during which episode occurred which 30min pictures were obtained and contrast is in right colon. Cont to pass flatus and having BM. clinically not obstructed. Will make NPO with sips ok given vomiting. Cont IVF. Time Spent With Patient Time: Total time managing care of this patient today ____ minutes.
--- NOTE | 2024-03-27 15:33 | MHC.CM.PN ---
Per MD rounds patient is not medically cleared for discharge. She has been transferred to [facility] s/p Rapid Response code this afternoon (see event note).
[2024-03-27] MEDS: LORazepam 2 MG/ML VIAL 0.5 MG IVPUSH (16:01)
[2024-03-28] VITALS (7 sets, daily range): BP systolic 107–122; BP diastolic 67–77; PULSE 81–92; RESP 17–20; TEMP 36.3–37; O2SAT 97–100
[2024-03-28] MEDS: oxyCODONE HCl Immed Release 5 MG TABLET PO (00:09)
[2024-03-28] MEDS: 0.9 % Sodium Chloride Flush 3 ML SYRINGE IVFLUSH ×4 (00:11→22:00)
[2024-03-28] MEDS: Albuterol Sulfate 90 MCG 8 GM INHALER 2 PUFF INHALE ×3 (01:54→20:03)
[2024-03-28] MEDS: Morphine Sulfate 4 MG/ML CARTRIDGE IVPUSH ×4 (01:56→22:10)
[2024-03-28] MEDS: Omeprazole 20 MG CAPSULE.DR PO ×2 (06:23→17:20)
[2024-03-28] MEDS: Fluticasone/Vilanterol 200/25 BLST.W.DEV 1 PUFF INHALE (08:25)
[2024-03-28] MEDS: Sucralfate Oral Suspension 1 GM/10 ML ORAL.SUSP 2 GM PR ×2 (09:50→22:00)
[2024-03-28] MEDS: Psyllium seed 3.7 GM PACKET PO (09:51)
[2024-03-28] MEDS: guaiFENesin LA 600 MG TAB.ER.12H PO ×2 (09:51→22:00)
[2024-03-28] MEDS: Hydroxychloroquine Sulfate 200 MG TABLET 300 MG PO (09:51)
--- NOTE | 2024-03-28 14:07 | PM.PNGS ---
Subjective Subjective Date of Service: 03/28/24 Interval history: Patient feeling better status post syncopal episode. We discussed that her small-bowel follow-through was within normal limits. She is tolerating a liquid diet. I will be advanced. She is interested in going home. Physical Exam Vital Signs: Vital Signs: Last Vital Signs Temp 97.3 F 03/28/24 08:00 Pulse 81 03/28/24 08:29 Resp 20 03/28/24 08:29 BP 118/68 03/28/24 08:00 Pulse Ox 97 03/28/24 08:00 O2 Del Method Room Air 03/28/24 08:00 BMI result Body Mass Index 26.5 GI: Other: Abdomen is soft. Mildly distended. No evidence of any guarding, rebound, or rigidity. Improved from prior exams earlier in this week. Objective Data Active Medications Acetaminophen (Acetaminophen 325 Mg Tablet) 650 mg PO Q6H PRN PRN Reason: Pain, Mild 1-3,fever,headache Albuterol Sulfate (Albuterol Sulfate 90 Mcg 8 Gm Inhaler) 2 puff INHALE Q4H PRN PRN Reason: shortness of breath or wheezing Last Admin: 03/28/24 08:26 Dose: 2 puff Documented By: TATYANA Calcium Carbonate (Calcium Carbonate 750 Mg Tab.Chew) 750 mg PO Q4H PRN PRN Reason: Heartburn Fluticasone/Vilanterol (Fluticasone/Vilanterol 200/25 Blst.W.Dev) 1 puff INHALE RDAILY [facility] Last Admin: 03/28/24 08:25 Dose: 1 puff Documented By: TATYANA Guaifenesin (Guaifenesin La 600 Mg Tab.Er.12h) 600 mg PO BID [facility] Last Admin: 03/28/24 09:51 Dose: 600 mg Documented By: FANNY Hydroxychloroquine Sulfate (Hydroxychloroquine Sulfate 200 Mg Tablet) 300 mg PO DAILY [facility] Last Admin: 03/28/24 09:51 Dose: 300 mg Documented By: FANNY Lorazepam (Lorazepam 2 Mg/Ml Vial) 0.5 mg IVPUSH BID PRN PRN Reason: Anxiety Last Admin: 03/27/24 16:01 Dose: 0.5 mg Documented By: AJITH Melatonin (Melatonin 3 Mg Tablet) 6 mg PO BEDTIME PRN PRN Reason: Insomnia Morphine Sulfate (Morphine Sulfate 4 Mg/Ml Cartridge) 4 mg IVPUSH Q4H PRN; Protocol PRN Reason: Pain, Severe (Pain Scale 7-10) Last Admin: 03/28/24 09:50 Dose: 4 mg Documented By: FANNY Non-Formulary Medication (Mesalamine) 1,000 mg [place] BEDTIME [facility] Omeprazole (Omeprazole 20 Mg Capsule.Dr) 20 mg PO BID@0630,1630 [facility] Last Admin: 03/28/24 06:23 Dose: 20 mg Documented By: SHAINA Ondansetron HCl (Ondansetron Hcl 4 Mg/2 Ml Vial) 4 mg IVPUSH Q8H PRN PRN Reason: Nausea and Vomiting Last Admin: 03/27/24 13:35 Dose: 4 mg Documented By: ROBERT Oxycodone HCl (Oxycodone Hcl Immed Release 5 Mg Tablet) 5 mg PO Q4H PRN PRN Reason: Pain, Moderate(Pain Scale 4-6) Last Admin: 03/28/24 00:09 Dose: 5 mg Documented By: SHAINA Psyllium Hydrophilic Mucilloid (Psyllium Seed 3.7 Gm Packet) 3.7 gm PO DAILY [facility] Last Admin: 03/28/24 09:51 Dose: 3.7 gm Documented By: FANNY Senna/Docusate Sodium (Sennosides/Docusate Sodium Tablet) 1 tab PO BID PRN PRN Reason: Constipation Last Admin: 03/27/24 06:34 Dose: 1 tab Documented By: SVEN Sodium Chloride (0.9 % Sodium Chloride Flush 3 Ml Syringe) 3 ml IVFLUSH QSHIFT [facility] Last Admin: 03/28/24 09:51 Dose: 3 ml Documented By: FANNY Sucralfate (Sucralfate Oral Suspension 1 Gm/10 Ml Oral.Susp) 2 gm [place] BID [facility] Last Admin: 03/28/24 09:50 Dose: 2 gm Documented By: FANNY Labs 03/27/24 12:52 03/27/24 12:52 Procedures Date of Service Date of Service: 03/28/24 Progress Note: A&P Assessment and plan (1) Partial small bowel obstruction: Status: Acute Plan I spoke with the patient's hospitalist and Dr. Dickerson feels that the patient indeed just had a syncopal episode. All other vital signs and labs were within normal limits. Current plan is discharge patient home with follow-up with me in 1 week' time. Discharge instructions reviewed. All questions answered. Time Spent With Patient Time: Total time managing care of this patient today ____ minutes. Quality Stroke Does the patient have a stroke diagnosis?: No VTE Prior VTE?: No VTE Risk Level:: Medical - moderate - high VTE Device Contraindication: N/A - Device Ordered VTE Drug Contraindication: Treatment Not Tolerated
--- NOTE | 2024-03-28 14:20 | MHC.CM.PN ---
CM met with Patient at bedside after dc order was entered. IMM was addressed with Patient and the original was given to Patient and a copy has been placed on the chart.Patient stated that she feels that she shouldn't go home until she eats something and sees that everything is working properly, after she eats.CM reached out to Surgeon & RN; Surgeon indicated to give Patient lunch and dinner and if both are tolerated, patient can be dc'd. CM will follow.
--- NOTE | 2024-03-28 15:06 | MHC.CM.PN ---
CM met with Patient again, to answer questions regarding IMM. CM will follow.
[2024-03-29] VITALS (11 sets, daily range): BP systolic 108–139; BP diastolic 56–85; PULSE 85–113; RESP 17–20; TEMP 36.6–37.2; O2SAT 95–100
[2024-03-29] MEDS: Fluticasone/Vilanterol 200/25 BLST.W.DEV 1 PUFF INHALE (08:03)
[2024-03-29] MEDS: Albuterol Sulfate 90 MCG 8 GM INHALER 2 PUFF INHALE ×2 (08:04→14:15)
[2024-03-29] MEDS: Hydroxychloroquine Sulfate 200 MG TABLET 300 MG PO (09:29)
[2024-03-29] MEDS: Omeprazole 20 MG CAPSULE.DR PO ×2 (09:29→16:41)
[2024-03-29] MEDS: 0.9 % Sodium Chloride Flush 3 ML SYRINGE IVFLUSH ×2 (09:29→14:15)
[2024-03-29] MEDS: Psyllium seed 3.7 GM PACKET PO (09:29)
[2024-03-29] MEDS: guaiFENesin LA 600 MG TAB.ER.12H PO ×2 (09:29→21:24)
[2024-03-29] MEDS: Sucralfate Oral Suspension 1 GM/10 ML ORAL.SUSP 2 GM PR ×2 (09:29→21:23)
[2024-03-29] MEDS: Sennosides/Docusate Sodium TABLET 1 TAB PO (09:32)
[2024-03-29] MEDS: ondansetron HCL 4 MG/2 ML VIAL IVPUSH (09:38)
--- NOTE | 2024-03-29 13:31 | PM.PNGS ---
Subjective Subjective Date of Service: 03/29/24 Interval history: Patient was says she is feeling much better. Tolerating her diet. Having some flatus. No BM yet today. She wishes to be discharged. Physical Exam Vital Signs: Vital Signs: Last Vital Signs Temp 97.9 F 03/29/24 11:32 Pulse 91 03/29/24 11:32 Resp 18 03/29/24 11:32 BP 116/70 03/29/24 11:32 Pulse Ox 95 03/29/24 11:32 O2 Del Method Room Air 03/29/24 11:32 BMI result Body Mass Index 26.5 GI: Other: Abdomen is is soft and benign. Much improved from initial hospitalization. Objective Data Active Medications Acetaminophen (Acetaminophen 325 Mg Tablet) 650 mg PO Q6H PRN PRN Reason: Pain, Mild 1-3,fever,headache Albuterol Sulfate (Albuterol Sulfate 90 Mcg 8 Gm Inhaler) 2 puff INHALE Q4H PRN PRN Reason: shortness of breath or wheezing Last Admin: 03/29/24 08:04 Dose: 2 puff Documented By: TATYANA Calcium Carbonate (Calcium Carbonate 750 Mg Tab.Chew) 750 mg PO Q4H PRN PRN Reason: Heartburn Fluticasone/Vilanterol (Fluticasone/Vilanterol 200/25 Blst.W.Dev) 1 puff INHALE RDAILY [facility] Last Admin: 03/29/24 08:03 Dose: 1 puff Documented By: TATYANA Guaifenesin (Guaifenesin La 600 Mg Tab.Er.12h) 600 mg PO BID [facility] Last Admin: 03/29/24 09:29 Dose: 600 mg Documented By: FANNY Hydroxychloroquine Sulfate (Hydroxychloroquine Sulfate 200 Mg Tablet) 300 mg PO DAILY [facility] Last Admin: 03/29/24 09:29 Dose: 300 mg Documented By: FANNY Melatonin (Melatonin 3 Mg Tablet) 6 mg PO BEDTIME PRN PRN Reason: Insomnia Omeprazole (Omeprazole 20 Mg Capsule.) 20 mg PO BID@0630,1630 [facility] Last Admin: 03/29/24 09:29 Dose: 20 mg Documented By: FANNY Ondansetron HCl (Ondansetron Hcl 4 Mg/2 Ml Vial) 4 mg IVPUSH Q8H PRN PRN Reason: Nausea and Vomiting Last Admin: 03/29/24 09:38 Dose: 4 mg Documented By: FANNY Psyllium Hydrophilic Mucilloid (Psyllium Seed 3.7 Gm Packet) 3.7 gm PO DAILY [facility] Last Admin: 03/29/24 09:29 Dose: 3.7 gm Documented By: FANNY Senna/Docusate Sodium (Sennosides/Docusate Sodium Tablet) 1 tab PO BID PRN PRN Reason: Constipation Last Admin: 03/29/24 09:32 Dose: 1 tab Documented By: FANNY Sodium Chloride (0.9 % Sodium Chloride Flush 3 Ml Syringe) 3 ml IVFLUSH QSHIFT [facility] Last Admin: 03/29/24 09:29 Dose: 3 ml Documented By: FANNY Sucralfate (Sucralfate Oral Suspension 1 Gm/10 Ml Oral.Susp) 2 gm [place] BID [facility] Last Admin: 03/29/24 09:29 Dose: 2 gm Documented By: FANNY Labs 03/27/24 12:52 03/27/24 12:52 Procedures Date of Service Date of Service: 03/29/24 Progress Note: A&P Assessment and plan (1) Nausea and vomiting: Status: Acute (2) SBO (small bowel obstruction): Status: Acute Plan Discharge home. Instructions reviewed. Time Spent With Patient Time: Total time managing care of this patient today ____ minutes. Quality Stroke Does the patient have a stroke diagnosis?: No VTE Prior VTE?: No VTE Risk Level:: Medical - moderate - high VTE Device Contraindication: N/A - Device Ordered VTE Drug Contraindication: Treatment Not Tolerated
--- NOTE | 2024-03-29 14:19 | MHC.CM.PN ---
See Surgery's PN from today; Patient wishes to be dc'd to home today.
[2024-03-29] MEDS: Albuterol/Iprat 2.5/0.5MG 3 ML AMPUL.NEB INHALE ×2 (15:29→19:26)
[2024-03-29] MEDS: guaiFENesin 200 MG/10 ML 10 ML LIQUID PO (17:12)
[2024-03-29 18:03] LABS: Influenza A PCR NEGATIVE (Negative); Influenza B PCR NEGATIVE (Negative); Resp Syncy Virus RNA Qual PCR NEGATIVE (Negative); SARS COV2 PCR INHOUSE NEGATIVE (Negative)
[2024-03-29] MEDS: LORazepam 1 MG TABLET PO (22:06)
[2024-03-30] VITALS (9 sets, daily range): BP systolic 106–131; BP diastolic 57–68; PULSE 88–113; RESP 18–22; TEMP 36.3–36.8; O2SAT 94–98
[2024-03-30] MEDS: guaiFENesin 200 MG/10 ML 10 ML LIQUID PO ×3 (00:43→17:33)
[2024-03-30] MEDS: Omeprazole 20 MG CAPSULE.DR PO ×2 (05:49→17:31)
--- NOTE | 2024-03-30 08:20 | P.PNGS_ITS ---
Subjective Subjective Date of Service: 03/30/24 <Vaishali Rodriguez PA-C - Last Filed: 03/30/24 08:29> 03/30/24 <Bertrand Liang MD - Last Filed: 03/30/24 08:30> Interval history: Feels horrible . C/o congestion, cough. States she has lung, liver, pancreatic cysts/lesions that need to be biopsied per the medical providers at [facility] and thinks she is coughing due to this. She is refusing to leave until she sees pulmonology. States her cough is aggravating her abd pain. She is tolerating solid diet without nausea or vomiting, passing flatus and moving bowels. <RONN Hernandez Last Filed: 03/30/24 08:29> Physical Exam 2 Vital Signs: Vital Signs: Last Vital Signs Temp 98.3 F 03/30/24 03:24 Pulse 88 03/30/24 03:24 Resp 18 03/30/24 03:24 BP 131/68 03/30/24 03:24 Pulse Ox 95 03/30/24 03:24 O2 Del Method Room Air 03/30/24 03:24 BMI result Body Mass Index 26.5 <RONN Hernandez Last Filed: 03/30/24 08:29> Const: General: comfortable, no acute distress and alert <RONN Hernandez Last Filed: 03/30/24 08:29> Orientation/consciousness: patient oriented x3 <RONN Hernandez Last Filed: 03/30/24 08:29> Resp: Effort & Inspection: normal respiratory effort, Actively coughing, respiratory effort not decreased, not tachypneic and no use of accessory muscles <RONN Hernandez Last Filed: 03/30/24 08:29> GI: Inspection: No distended <RONN Hernandez Last Filed: 03/30/24 08:29> Palpation (GI): Soft to palpation and nontender <RONN Hernandez Last Filed: 03/30/24 08:29> Skin: General skin exam: no rashes or lesions noted <Vaishali Rodriguez PA-C - Last Filed: 03/30/24 08:29> Neuro: General: patient oriented x3 and moves all extremities <Vaishali Rodriguez PA-C - Last Filed: 03/30/24 08:29> Objective Data Active Medications Acetaminophen (Acetaminophen 325 Mg Tablet) 650 mg PO Q6H PRN PRN Reason: Pain, Mild 1-3,fever,headache Albuterol Sulfate (Albuterol Sulfate 90 Mcg 8 Gm Inhaler) 2 puff INHALE Q4H PRN PRN Reason: shortness of breath or wheezing Last Admin: 03/29/24 14:15 Dose: 2 puff Documented By: FANNY Albuterol/Ipratropium (Albuterol/Iprat 2.5/0.5mg 3 Ml Ampul.Neb) 3 ml INHALE RQ4H WHILE AWAKE [facility] Last Admin: 03/29/24 19:26 Dose: 3 ml Documented By: CHANTAL Calcium Carbonate (Calcium Carbonate 750 Mg Tab.Chew) 750 mg PO Q4H PRN PRN Reason: Heartburn Fluticasone/Vilanterol (Fluticasone/Vilanterol 200/25 Blst.W.Dev) 1 puff INHALE RDAILY [facility] Last Admin: 03/29/24 08:03 Dose: 1 puff Documented By: TATYANA Guaifenesin (Guaifenesin La 600 Mg Tab.Er.12h) 600 mg PO BID [facility] Last Admin: 03/29/24 21:24 Dose: 600 mg Documented By: JAMIL Guaifenesin (Guaifenesin 200 Mg/10 Ml 10 Ml Liquid) 10 ml PO Q4H PRN PRN Reason: Cough Last Admin: 03/30/24 05:49 Dose: 10 ml Documented By: JAMIL Hydroxychloroquine Sulfate (Hydroxychloroquine Sulfate 200 Mg Tablet) 300 mg PO DAILY [facility] Last Admin: 03/29/24 09:29 Dose: 300 mg Documented By: FANNY Melatonin (Melatonin 3 Mg Tablet) 6 mg PO BEDTIME PRN PRN Reason: Insomnia Omeprazole (Omeprazole 20 Mg Capsule.Dr) 20 mg PO BID@0630,1630 [facility] Last Admin: 03/30/24 05:49 Dose: 20 mg Documented By: JAMIL Ondansetron HCl (Ondansetron Hcl 4 Mg/2 Ml Vial) 4 mg IVPUSH Q8H PRN PRN Reason: Nausea and Vomiting Last Admin: 03/29/24 09:38 Dose: 4 mg Documented By: FANNY Psyllium Hydrophilic Mucilloid (Psyllium Seed 3.7 Gm Packet) 3.7 gm PO DAILY [facility] Last Admin: 03/29/24 09:29 Dose: 3.7 gm Documented By: FANNY Senna/Docusate Sodium (Sennosides/Docusate Sodium Tablet) 1 tab PO BID PRN PRN Reason: Constipation Last Admin: 03/29/24 09:32 Dose: 1 tab Documented By: FANNY Sodium Chloride (0.9 % Sodium Chloride Flush 3 Ml Syringe) 3 ml IVFLUSH QSHIFT [facility] Last Admin: 03/30/24 00:33 Dose: Not Given Documented By: JAMIL Non-Admin Reason: Previously Administered Sucralfate (Sucralfate Oral Suspension 1 Gm/10 Ml Oral.Susp) 2 gm [place] BID [facility] Last Admin: 03/29/24 21:23 Dose: 2 gm Documented By: JAMIL <Vaishali Rodriguez PA-C - Last Filed: 03/30/24 08:29> Labs CBC & Chem 7: 03/27/24 12:52 03/27/24 12:52 <Vaishali Rodriguez PA-C - Last Filed: 03/30/24 08:29> Labs: Laboratory Results - last 24 hr 03/29/24 17:16 Influenza Type A (PCR) NEGATIVE Influenza Type B (PCR) NEGATIVE RSV RNA Qual (PCR) NEGATIVE SARS-CoV-2 RNA (RT-PCR) NEGATIVE <Vaishali Rodriguez PA-C - Last Filed: 03/30/24 08:29> Procedures Date of Service Date of Service: 03/30/24 <Vaishali Rodriguez PA-C - Last Filed: 03/30/24 08:29> 03/30/24 <Bertrand Liang MD - Last Filed: 03/30/24 08:30> Progress Note: A&P Assessment and plan (1) Partial small bowel obstruction: Status: Acute <Vaishali Rodriguez PA-C - Last Filed: 03/30/24 08:29> Assessment and Plan: PSBO is resolved at this point and main complaint is respiratory symptoms. She is hemodynamically stable, no respiratory distress. Abd very benign. On her home inhalers, started on mucinex. Discussed she likely has URI, CXR yesterday shows no consolidation or effusion, unchanged opacity of the right lower lobe medially. Will consult pulmonology for her peace of mind but she is clinically stable. Unclear what she needs to have biospied as all her previous CT scans dont show any lesions of liver, pancreas, lungs (what is captured) and this was discussed with her. She can f/u with her PCP regarding this further. <Vaishali Rodriguez PA-C - Last Filed: 03/30/24 08:29> PSBO is resolved at this point and main complaint is respiratory symptoms. She is hemodynamically stable, no respiratory distress. Abd very benign. On her home inhalers, started on mucinex. Discussed she likely has URI, CXR yesterday shows no consolidation or effusion, unchanged opacity of the right lower lobe medially. Will consult pulmonology for her peace of mind but she is clinically stable. Unclear what she needs to have biospied as all her previous CT scans dont show any lesions of liver, pancreas, lungs (what is captured) and this was discussed with her. She can f/u with her PCP regarding this further. As noted above. Very challenging patient. Bordering unreasonable. <Bertrand Liang MD - Last Filed: 03/30/24 08:30> Time Spent With Patient Time: Total time managing care of this patient today ____ minutes. <Vaishali Rodriguez PA-C - Last Filed: 03/30/24 08:29> Quality Stroke Does the patient have a stroke diagnosis?: No <RONN Hernandez Last Filed: 03/30/24 08:29> VTE Prior VTE?: No <RONN Hernandez Last Filed: 03/30/24 08:29> VTE Risk Level:: Medical - moderate - high <RONN Hernandez Last Filed: 03/30/24 08:29> VTE Device Contraindication: N/A - Device Ordered <Vaishali Rodriguez PA-C - Last Filed: 03/30/24 08:29> VTE Drug Contraindication: Treatment Not Tolerated <Vaishali Rodriguez PA-C - Last Filed: 03/30/24 08:29>
--- NOTE | 2024-03-30 09:16 | P.CONPL_ITS ---
History of Present Illness History of Present Illness Consult date: 03/30/24 Chief complaint: PSBO Narrative: This is an inpatient pulmonary consultation. The patient is a 73-year-old female with history of asthma, ILD, colon CA s/p radiation/resection, multiple SBOs, recent unknown abdominal surgery at [facility] 2 weeks ago presenting with sudden onset abdominal pain which began around 1 am, began vomiting one hour after onset of pain. Denies hematemesis. She was admitted to the hospital had a general surgical evaluation. [place] to be stable. Although she continued to have a persistent productive cough. The cough is been occurring since January. She did take a course of antibiotics with some partial improvement then when she finished the antibiotics symptoms got worse. Her cough is indeed congested. Denies any hemoptysis. I did review her previous imaging studies including a CT scan of the chest from 2021 demonstrating peripheral reticular changes consistent with pulmonary fibrosis. She does have history of Sjogren's and therefore likely related to connective tissue disease interstitial lung disease. There seems to be some mild progression based on disease. She also had an x- ray from 03/29/2024 which I personally reviewed. This limited because of her underlying interstitial disease but appears to have increased opacity to the right lung area. Therefore is reasonable to treat her for infectious process. I do believe the starting her on Zithromax will be effective initially and then she can continue with azithromycin 3 times a week Saturday 250 mg dose to treat chronic bronchitis. 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 Review of Systems 2 Constitutional: Constitutional: Denies fever(s) Eyes: Eyes: Denies itchy eyes ENT: Reports system reviewed and no additional complaints, except as documented Cardiovascular: Cardiovascular: Denies chest pain Respiratory: Respiratory: Reports change in phlegm color, Reports chest congestion and Reports cough Gastrointestinal: Gastrointestinal: Reports as per HPI and Reports abdominal pain Musculoskeletal: Musculoskeletal: Reports no additional musculoskeletal complaints Psychiatric: Psychiatric: Reports no additional psychiatric complaints Hematologic/Lymphatic: Hematologic/Lymphatic: Reports no additional hematologic/lymphatic complaints Allergic/Immunologic: Allergic/Immunologic: Denies itchy eyes PMFSH Past Medical History Medical History (Updated 03/30/24 @ 09:23 by Lee Madsen MD) Interstitial lung disease SBO (small bowel obstruction) Syncope Abdominal pain Bronchiectasis Shoulder pain, bilateral UTI (urinary tract infection) Arthralgia Dizziness Dysuria Acute sinusitis Periumbilical abdominal pain Flank pain Left flank pain Annual physical exam IBS (irritable bowel syndrome) Gastritis Cough Fatigue Scabies Post covid-19 condition, unspecified Elevated LFTs Diarrhea Sinusitis Bronchitis Well woman exam COPD (chronic obstructive pulmonary disease) Radiation proctitis Radiation enteritis Postmenopausal bleeding History of colon cancer Rectal bleeding Asthma Vertigo Seasonal allergies Hyperglycemia Palpitation Hemochromatosis Tubular adenoma Colon cancer Vaginal cancer Family History Family History Father Dementia GSW (gunshot wound) CAD (coronary artery disease) Mother GSW (gunshot wound) Family/Other Diabetes mellitus Brother CAD (coronary artery disease) Sister Multiple sclerosis Sister Rheumatoid arthritis Sister Rheumatoid arthritis Surgical History Surgical History History of cholecystectomy History of esophagogastroduodenoscopy (EGD) H/O colonoscopy H/O colectomy Social History Social History Household Members: None Household Members Other:: aunt a 96 years old Housing: House Are you a primary healthcare receptionist to a significant other at home: No Do you presently have visiting nurse or other home services: No Unable to assess alcohol history related to: Unknown Alcohol intake: never Patient Tobacco Use Status: Never used Tobacco e-Cigarette/Vaping Use: Never Used Second Hand Smoke Exposure: No Advance Directives Date on File: 04/09/22 service: No Current occupational status: unemployed Sexual orientation: Straight/Heterosexual Gender identity: Female Meds Allergies Allergy/AdvReac Type Severity Reaction Status Date / Time ciprofloxacin [From Cipro] AdvReac Intermediate Facial Verified 03/23/24 08:53 redness, lip swelling Active Medications: Current Medications Acetaminophen (Acetaminophen 325 Mg Tablet) 650 mg PO Q6H PRN PRN Reason: Pain, Mild 1-3,fever,headache Albuterol Sulfate (Albuterol Sulfate 90 Mcg 8 Gm Inhaler) 2 puff INHALE Q4H PRN PRN Reason: shortness of breath or wheezing Last Admin: 03/29/24 14:15 Dose: 2 puff Albuterol/Ipratropium (Albuterol/Iprat 2.5/0.5mg 3 Ml Ampul.Neb) 3 ml INHALE RQ4H WHILE AWAKE ON LICENSE OF [facility] Last Admin: 03/30/24 08:42 Dose: Not Given Azithromycin (Azithromycin 500 Mg Tablet) 500 mg PO Q24H ON LICENSE OF [facility] Calcium Carbonate (Calcium Carbonate 750 Mg Tab.Chew) 750 mg PO Q4H PRN PRN Reason: Heartburn Fluticasone/Vilanterol (Fluticasone/Vilanterol 200/25 Blst.W.Dev) 1 puff INHALE RDAILY ON [facility] OF [facility] Last Admin: 03/30/24 08:42 Dose: Not Given Guaifenesin (Guaifenesin La 600 Mg Tab.Er.12h) 600 mg PO BID ON [facility] OF [facility] Last Admin: 03/29/24 21:24 Dose: 600 mg Guaifenesin (Guaifenesin 200 Mg/10 Ml 10 Ml Liquid) 10 ml PO Q4H PRN PRN Reason: Cough Last Admin: 03/30/24 05:49 Dose: 10 ml Hydroxychloroquine Sulfate (Hydroxychloroquine Sulfate 200 Mg Tablet) 300 mg PO DAILY ON [facility] Last Admin: 03/29/24 09:29 Dose: 300 mg Melatonin (Melatonin 3 Mg Tablet) 6 mg PO BEDTIME PRN PRN Reason: Insomnia Omeprazole (Omeprazole 20 Mg Capsule.Dr) 20 mg PO BID@0630,1630 [facility] Last Admin: 03/30/24 05:49 Dose: 20 mg Ondansetron HCl (Ondansetron Hcl 4 Mg/2 Ml Vial) 4 mg IVPUSH Q8H PRN PRN Reason: Nausea and Vomiting Last Admin: 03/29/24 09:38 Dose: 4 mg Psyllium Hydrophilic Mucilloid (Psyllium Seed 3.7 Gm Packet) 3.7 gm PO DAILY ON [facility] Last Admin: 03/29/24 09:29 Dose: 3.7 gm Senna/Docusate Sodium (Sennosides/Docusate Sodium Tablet) 1 tab PO BID PRN PRN Reason: Constipation Last Admin: 03/29/24 09:32 Dose: 1 tab Sodium Chloride (0.9 % Sodium Chloride Flush 3 Ml Syringe) 3 ml IVFLUSH QSHIFT ON LICENSE OF [facility] Last Admin: 03/30/24 00:33 Dose: Not Given Sucralfate (Sucralfate Oral Suspension 1 Gm/10 Ml Oral.Susp) 2 gm [place] BID [facility] Last Admin: 03/29/24 21:23 Dose: 2 gm Home Medications ?Medication ?Instructions ?Recorded ?Confirmed ?Last Taken ?Type cholecalciferol (vitamin D3) 125 125 mcg PO DAILY 01/05/22 03/23/24 03/22/24 History mcg (5,000 unit) capsule multivitamin 1 tab PO DAILY 04/08/22 03/23/24 03/22/24 History albuterol sulfate 90 mcg/actuation 2 puff inhalation Q4H PRN 02/13/24 03/23/24 03/22/24 History aerosol inhaler (Ventolin HFA) shortness of breath or wheezing hydrocodone 5 mg-acetaminophen 325 0.5 tab PO QID PRN severe pain 02/13/24 03/23/24 03/22/24 History mg tablet lorazepam 1 mg tablet 1 mg PO BEDTIME PRN Anxiety 02/13/24 03/23/24 03/22/24 History guaifenesin 600 mg tablet, 600 mg PO BID 03/23/24 03/23/24 03/22/24 History extended release 12 hr (Mucinex) hydroxychloroquine 200 mg tablet 300 mg PO DAILY 03/23/24 03/23/24 03/22/24 History mesalamine 1,000 mg rectal 1,000 mg [place] BEDTIME 03/23/24 03/23/24 03/22/24 History suppository pantoprazole 40 mg tablet,delayed 40 mg PO BID@0630,1630 03/23/24 03/23/24 03/22/24 History release Physical Exam 2 Vital Signs: Vital Signs: Last Vital Signs Temp 98.0 F 03/30/24 08:00 Pulse 94 03/30/24 08:00 Resp 18 03/30/24 08:00 BP 117/57 L 03/30/24 08:00 Pulse Ox 96 03/30/24 08:00 O2 Del Method Room Air 03/30/24 08:00 BMI result Body Mass Index 26.5 Const: General: comfortable, no acute distress and alert O rientation/consciousness: patient oriented x3 Chest: Chest palpation & inspection: normal inspection of the chest Resp: Effort & Inspection: normal respiratory effort, Actively coughing and respiratory effort not decreased GI: Palpation (GI): Soft to palpation and nontender Skin: General skin exam: no rashes or lesions noted Neuro: General: patient oriented x3 and moves all extremities Results Laboratory Findings 03/27/24 12:52 03/27/24 12:52 Abnormal lab findings: Abnormal Labs 03/23/24 03/23/24 03/24/24 09:06 13:31 05:59 RBC 3.42 L Hgb 11.3 L Hct 33.2 L MCH MPV 8.6 L Neut % (Auto) 81.9 H Lymph % (Auto) 9.3 L Lymph # (Auto) 0.9 L Abs Immat Gran (auto) 0.04 H Anion Gap 10 L 10 L Random Glucose 118 H Calcium 8.2 L D AST 73 H ALT 69 H Alkaline Phosphatase 137 H Total Protein 8.1 H Albumin Ur Specific Velma >= 1.030 H 03/27/24 12:52 RBC 3.40 L Hgb 11.3 L Hct 33.1 L MCH 33.2 H MPV 8.9 L Neut % (Auto) 74.6 H Lymph % (Auto) 13.8 L Lymph # (Auto) 1.1 L Abs Immat Gran (auto) Anion Gap 9 L Random Glucose 123 H Calcium AST 54 H ALT 37 H Alkaline Phosphatase 119 H Total Protein 8.3 H Albumin 3.4 L Ur Specific Velma Assessment and Plan (1) COPD (chronic obstructive pulmonary disease): Status: Acute (2) Bronchitis: Status: Acute (3) Interstitial lung disease: Status: Acute Plan continue respiratory therapy Start Azithromycin, please continue Azithromycin 250mg 3xweek upon discharge. Rx sent to the pharmacy please provide an [employer] CPT device prior to discharge F/U with outpt pulmonary (Dr Loja) Procedures Date of Service Date of Service: 03/30/24
[2024-03-30] MEDS: 0.9 % Sodium Chloride Flush 3 ML SYRINGE IVFLUSH ×3 (09:32→20:26)
[2024-03-30] MEDS: Sucralfate Oral Suspension 1 GM/10 ML ORAL.SUSP 2 GM PR ×2 (09:32→20:25)
[2024-03-30] MEDS: Azithromycin 500 MG TABLET PO (09:34)
[2024-03-30] MEDS: guaiFENesin LA 600 MG TAB.ER.12H PO ×2 (09:34→20:25)
[2024-03-30] MEDS: Hydroxychloroquine Sulfate 200 MG TABLET 300 MG PO (09:34)
[2024-03-30] MEDS: Albuterol/Iprat 2.5/0.5MG 3 ML AMPUL.NEB INHALE ×3 (11:42→21:20)
--- NOTE | 2024-03-30 12:34 | MHC.CM.PN ---
Pt has been medically cleared for DC. She will go home via private transport, plan is self care.
[2024-03-30] MEDS: LORazepam 1 MG TABLET PO (18:44)
[2024-03-31] MEDS: guaiFENesin 200 MG/10 ML 10 ML LIQUID PO ×3 (02:25→12:53)
[2024-03-31 03:28] VITALS: BP 122/65; PULSE 88; RESP 18; TEMP 37.2; O2SAT 97
[2024-03-31] MEDS: Omeprazole 20 MG CAPSULE.DR PO (06:19)
--- NOTE | 2024-03-31 06:38 | P.PNGS_ITS ---
Subjective Subjective Date of Service: 03/31/24 <Maribell Jose - Last Filed: 03/31/24 06:49> 03/31/24 <Vaishali Rodriguez PA-C - Last Filed: 03/31/24 07:50> Interval history: Pt reports she feels slightly better this morning. She feels less congested and reports coughing less. In terms of her PSBO, pt has had bowel movements and flatus. She denies any constant abdominal pain but states she has abdominal pain when she coughs. She endorses nausea but denies vomiting. She is able to tolerate solid foods. <Maribell Jose - Last Filed: 03/31/24 06:49> Physical Exam 2 Vital Signs: Vital Signs: Last Vital Signs Temp 98.9 F 03/31/24 03:28 Pulse 88 03/31/24 03:28 Resp 18 03/31/24 03:28 BP 122/65 03/31/24 03:28 Pulse Ox 97 03/31/24 03:28 O2 Del Method Room Air 03/31/24 03:28 BMI result Body Mass Index 26.5 <Maribell Jose - Last Filed: 03/31/24 06:49> Resp: Effort & Inspection: normal respiratory effort, able to speak in complete sentences, Actively coughing and other (No accessory muscle use) < Maribell Jose - Last Filed: 03/31/24 06:49> Cardio: Rate: regular rate <Maribell Jose - Last Filed: 03/31/24 06:49> Rhythm: regular rhythm <Maribell Jose - Last Filed: 03/31/24 06:49> Heart sounds: S1 normal heart sound present and S2 normal heart sound present <Maribell Jose - Last Filed: 03/31/24 06:49> GI: Inspection: Yes normal to inspection <Maribell Jose - Last Filed: 03/31/24 06:49> Palpation (GI): Soft to palpation and Tenderness to palpation present (GI) (tender throughout) <Maribell Jose - Last Filed: 03/31/24 06:49> Auscultation: normal bowel sounds <Maribell Jose - Last Filed: 03/31/24 06:49> Objective Data Active Medications Acetaminophen (Acetaminophen 325 Mg Tablet) 650 mg PO Q6H PRN PRN Reason: Pain, Mild 1-3,fever,headache Albuterol Sulfate (Albuterol Sulfate 90 Mcg 8 Gm Inhaler) 2 puff INHALE Q4H PRN PRN Reason: shortness of breath or wheezing Last Admin: 03/29/24 14:15 Dose: 2 puff Documented By: FANNY Albuterol/Ipratropium (Albuterol/Iprat 2.5/0.5mg 3 Ml Ampul.Neb) 3 ml INHALE RQ4H WHILE AWAKE [facility] Last Admin: 03/30/24 21:20 Dose: 3 ml Documented By: BETH Azithromycin (Azithromycin 500 Mg Tablet) 500 mg PO Q24H [facility] Last Admin: 03/30/24 09:34 Dose: 500 mg Documented By: AMY Calcium Carbonate (Calcium Carbonate 750 Mg Tab.Chew) 750 mg PO Q4H PRN PRN Reason: Heartburn Fluticasone/Vilanterol (Fluticasone/Vilanterol 200/25 Blst.W.Dev) 1 puff INHALE RDAILY [facility] Last Admin: 03/30/24 08:42 Dose: Not Given Documented By: MELISSA Non-Admin Reason: Patient Asleep Guaifenesin (Guaifenesin La 600 Mg Tab.Er.12h) 600 mg PO BID [facility] Last Admin: 03/30/24 20:25 Dose: 600 mg Documented By: LISETTE Guaifenesin (Guaifenesin 200 Mg/10 Ml 10 Ml Liquid) 10 ml PO Q4H PRN PRN Reason: Cough Last Admin: 03/31/24 06:22 Dose: 10 ml Documented By: LISETTE Hydroxychloroquine Sulfate (Hydroxychloroquine Sulfate 200 Mg Tablet) 300 mg PO DAILY [facility] Last Admin: 03/30/24 09:34 Dose: 300 mg Documented By: AMY Lorazepam (Lorazepam 1 Mg Tablet) 1 mg PO Q4H PRN PRN Reason: Anxiety Last Admin: 03/30/24 18:44 Dose: 1 mg Documented By: AMY Melatonin (Melatonin 3 Mg Tablet) 6 mg PO BEDTIME PRN PRN Reason: Insomnia Omeprazole (Omeprazole 20 Mg Capsule.) 20 mg PO BID@0630,1630 [facility] Last Admin: 03/31/24 06:19 Dose: 20 mg Documented By: LISETTE Ondansetron HCl (Ondansetron Hcl 4 Mg/2 Ml Vial) 4 mg IVPUSH Q8H PRN PRN Reason: Nausea and Vomiting Last Admin: 03/29/24 09:38 Dose: 4 mg Documented By: FANNY Psyllium Hydrophilic Mucilloid (Psyllium Seed 3.7 Gm Packet) 3.7 gm PO DAILY [facility] Last Admin: 03/30/24 09:39 Dose: Not Given Documented By: AMY Non-Admin Reason: Patient Refused Senna/Docusate Sodium (Sennosides/Docusate Sodium Tablet) 1 tab PO BID PRN PRN Reason: Constipation Last Admin: 03/29/24 09:32 Dose: 1 tab Documented By: FANNY Sodium Chloride (0.9 % Sodium Chloride Flush 3 Ml Syringe) 3 ml IVFLUSH QSHIFT [facility] Last Admin: 03/30/24 20:26 Dose: 3 ml Documented By: LISETTE Sucralfate (Sucralfate Oral Suspension 1 Gm/10 Ml Oral.Susp) 2 gm [place] BID [facility] Last Admin: 03/30/24 20:25 Dose: 2 gm Documented By: LISETTE <Maribell Jose - Last Filed: 03/31/24 06:49> Labs CBC & Chem 7: 03/27/24 12:52 03/27/24 12:52 <Maribell Jose - Last Filed: 03/31/24 06:49> Procedures Date of Service Date of Service: 03/31/24 <Maribell Jose - Last Filed: 03/31/24 06:49> 03/31/24 <Vaishali Rodriguez PA-C - Last Filed: 03/31/24 07:50> Progress Note: A&P Assessment and plan (1) Partial small bowel obstruction: Status: Acute <Maribell Jose - Last Filed: 03/31/24 06:49> Assessment and Plan: From a surgical standpoint, pt PSBO has resolved and she will not require surgery. Continue diet as tolerated. Continue incentive spirometry. Continue to encourage getting out of bed. Pt was more open to discussion of discharge today. Since her cough, congestion, and shortness of breath are improving on the guaifenesin and azithromycin, I believe this patient can be followed outpatient with a consult to outpatient pulmonology. <Maribell Jose - Last Filed: 03/31/24 06:49> From a surgical standpoint, pt PSBO has resolved and she will not require surgery. Continue diet as tolerated. Continue incentive spirometry. Continue to encourage getting out of bed. Pt was more open to discussion of discharge today. Since her cough, congestion, and shortness of breath are improving on the guaifenesin and azithromycin, I believe this patient can be followed outpatient with a consult to outpatient pulmonology. Agree with above assessment and plan. PSBO has resolved at this point and is tolerating solid diet with good GI function. She feels improved from respiratory standpoint and ready for discharge today. F/u with pulm and PCP upon discharge. Patient comfortable with plan. Cont azithromycin as per pulm. <Vaishali Rodriguez PA-C - Last Filed: 03/31/24 07:50> Time Spent With Patient Time: Total time managing care of this patient today ____ minutes. <Maribell Jose - Last Filed: 03/31/24 06:49> Quality Stroke Does the patient have a stroke diagnosis?: No <Maribell Jose - Last Filed: 03/31/24 06:49> VTE Prior VTE?: No <Maribell Jose - Last Filed: 03/31/24 06:49> VTE Risk Level:: Medical - moderate - high <Maribell Jose - Last Filed: 03/31/24 06:49> VTE Device Contraindication: N/A - Device Ordered <Maribell oJse - Last Filed: 03/31/24 06:49> VTE Drug Contraindication: Treatment Not Tolerated <Maribell Jose - Last Filed: 03/31/24 06:49>
--- NOTE | 2024-03-31 06:46 | PM.PNGS ---
Subjective Subjective Date of Service: 03/31/24 Physical Exam Vital Signs: Vital Signs: Last Vital Signs Temp 98.9 F 03/31/24 03:28 Pulse 88 03/31/24 03:28 Resp 18 03/31/24 03:28 BP 122/65 03/31/24 03:28 Pulse Ox 97 03/31/24 03:28 O2 Del Method Room Air 03/31/24 03:28 BMI result Body Mass Index 26.5 Objective Data Active Medications Acetaminophen (Acetaminophen 325 Mg Tablet) 650 mg PO Q6H PRN PRN Reason: Pain, Mild 1-3,fever,headache Albuterol Sulfate (Albuterol Sulfate 90 Mcg 8 Gm Inhaler) 2 puff INHALE Q4H PRN PRN Reason: shortness of breath or wheezing Last Admin: 03/29/24 14:15 Dose: 2 puff Documented By: FANNY Albuterol/Ipratropium (Albuterol/Iprat 2.5/0.5mg 3 Ml Ampul.Neb) 3 ml INHALE RQ4H WHILE AWAKE [facility] Last Admin: 03/30/24 21:20 Dose: 3 ml Documented By: BETH Azithromycin (Azithromycin 500 Mg Tablet) 500 mg PO Q24H [facility] Last Admin: 03/30/24 09:34 Dose: 500 mg Documented By: AMY Calcium Carbonate (Calcium Carbonate 750 Mg Tab.Chew) 750 mg PO Q4H PRN PRN Reason: Heartburn Fluticasone/Vilanterol (Fluticasone/Vilanterol 200/25 Blst.W.Dev) 1 puff INHALE RDAILY [facility] Last Admin: 03/30/24 08:42 Dose: Not Given Documented By: MELISSA Non-Admin Reason: Patient Asleep Guaifenesin (Guaifenesin La 600 Mg Tab.Er.12h) 600 mg PO BID [facility] Last Admin: 03/30/24 20:25 Dose: 600 mg Documented By: LISETTE Guaifenesin (Guaifenesin 200 Mg/10 Ml 10 Ml Liquid) 10 ml PO Q4H PRN PRN Reason: Cough Last Admin: 03/31/24 06:22 Dose: 10 ml Documented By: LISETTE Hydroxychloroquine Sulfate (Hydroxychloroquine Sulfate 200 Mg Tablet) 300 mg PO DAILY [facility] Last Admin: 03/30/24 09:34 Dose: 300 mg Documented By: AMY Lorazepam (Lorazepam 1 Mg Tablet) 1 mg PO Q4H PRN PRN Reason: Anxiety Last Admin: 03/30/24 18:44 Dose: 1 mg Documented By: AMY Melatonin (Melatonin 3 Mg Tablet) 6 mg PO BEDTIME PRN PRN Reason: Insomnia Omeprazole (Omeprazole 20 Mg Capsule.Dr) 20 mg PO BID@0630,1630 [facility] Last Admin: 03/31/24 06:19 Dose: 20 mg Documented By: LISETTE Ondansetron HCl (Ondansetron Hcl 4 Mg/2 Ml Vial) 4 mg IVPUSH Q8H PRN PRN Reason: Nausea and Vomiting Last Admin: 03/29/24 09:38 Dose: 4 mg Documented By: FANNY Psyllium Hydrophilic Mucilloid (Psyllium Seed 3.7 Gm Packet) 3.7 gm PO DAILY [facility] Last Admin: 03/30/24 09:39 Dose: Not Given Documented By: AMY Non-Admin Reason: Patient Refused Senna/Docusate Sodium (Sennosides/Docusate Sodium Tablet) 1 tab PO BID PRN PRN Reason: Constipation Last Admin: 03/29/24 09:32 Dose: 1 tab Documented By: FANNY Sodium Chloride (0.9 % Sodium Chloride Flush 3 Ml Syringe) 3 ml IVFLUSH QSHIFT [facility] Last Admin: 03/30/24 20:26 Dose: 3 ml Documented By: LISETTE Sucralfate (Sucralfate Oral Suspension 1 Gm/10 Ml Oral.Susp) 2 gm [place] BID [facility] Last Admin: 03/30/24 20:25 Dose: 2 gm Documented By: LISETTE Labs 03/27/24 12:52 03/27/24 12:52 Procedures Date of Service Date of Service: 03/31/24 Progress Note: A&P Time Spent With Patient Time: Total time managing care of this patient today ____ minutes. Quality Stroke Does the patient have a stroke diagnosis?: No VTE Prior VTE?: No VTE Risk Level:: Medical - moderate - high VTE Device Contraindication: N/A - Device Ordered VTE Drug Contraindication: Treatment Not Tolerated
[2024-03-31 07:10] VITALS: BP 129/72; PULSE 89; RESP 18; TEMP 37.2; O2SAT 94
[2024-03-31] MEDS: Hydroxychloroquine Sulfate 200 MG TABLET 300 MG PO (09:03)
[2024-03-31] MEDS: Azithromycin 500 MG TABLET PO (09:03)
[2024-03-31] MEDS: 0.9 % Sodium Chloride Flush 3 ML SYRINGE IVFLUSH (09:03)
[2024-03-31] MEDS: guaiFENesin LA 600 MG TAB.ER.12H PO (09:03)
[2024-03-31] MEDS: Sucralfate Oral Suspension 1 GM/10 ML ORAL.SUSP 2 GM PR (09:03)
[2024-03-31] MEDS: Sennosides/Docusate Sodium TABLET 1 TAB PO (09:07)
[2024-03-31] MEDS: LORazepam 1 MG TABLET PO (09:09)
[2024-03-31] MEDS: Albuterol/Iprat 2.5/0.5MG 3 ML AMPUL.NEB INHALE (11:46)
[2024-03-31 11:48] VITALS: PULSE 101; RESP 18; O2SAT 94
--- NOTE | 2024-03-31 12:31 | PM.DS ---
DS: Providers Provider Date of Service: 03/31/24 Date of admission: 03/23/24 14:15 Date of discharge: 03/31/24 Primary care physician: Catie Isabel CNP Attending physician on admission: Bertrand Liang Consults: 03/30/24 08:19 Consult to Pulmonology Routine Consulting Provider: [facility] Pulmonology Services Reason for consultation: pt of Dr. 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 Patient was also had multiple admissions for partial small bowel obstruction, as well as recent issues with radiation proctitis was significant lower GI bleeding. She now presents with what she describes as a recurrence of her bowel obstruction type issues. She has colicky abdominal pain, abdominal distention, and failure to passively this is her stool over the last day or 2. CT scan findings demonstrates significant stool burden as well as dilated distal small bowel consistent with either an ileus or partial small bowel obstruction. Chart was reviewed and patient evaluated. HOSPITAL COURSE: The patient was admitted to the surgical service for further treatment of the PSBO. Supportive measures were continued with bowel rest, IV hydration, serial abd exams. NG tube will be held for now. Current plan is for IV hydration, serial labs and exams. She had improvement in her symptoms and her diet was advanced however she had persistent intermittent abd pain. SBFT was therefore obtained which showed contrast in the right colon within 30 minutes. She however became unresponsive after drinking the contrast and a rapid response was called. She came to and vomited a large amount. SBP was soft and she was given an IVF bolus. Work up included CBC, BMP, troponin, EKG which all came back WNL. She was transferred to telemetry and hospitalists followed who felt this was a vasovagal episode. She remained stable during the remainder of her stay. Her abd pain improved and she began to pass continuous flatus and move her bowels. Her diet was advanced. She complained of worsening cough and pulmonology consult was obtained. They started azithromycin and azithromycin 250mg 3xweek was continued upon discharge. Aerobika CPT device was provided. On the day of discharge, she was tolerating a solid diet without nausea or vomiting, had good GI function. Her URI symptoms felt improved. Her abdomen was benign and she was hemodynamically stable. She was discharged to home on 03/31/24 in stable condition. She is to follow up with her PCP and Dr. Rodriguez (pulmonology) upon discharge. Status at Discharge Functional status at discharge: independent ambulation Overall status at discharge: patient is progressing back to baseline Time Attestation Discharge Coordination Time (in mins): 40 Quality: Safe Use of Opioids Does Pt have an Active Cancer Diagnosis on the Problem List?: No Quality: Stroke Does the patient have a stroke diagnosis?: No Physical Exam Vital Signs: Vital Signs: Last Vital Signs Temp 98.9 F 03/31/24 07:10 Pulse 101 H 03/31/24 11:48 Resp 18 03/31/24 11:48 BP 129/72 03/31/24 07:10 Pulse Ox 94 03/31/24 07:10 O2 Del Method Room Air 03/31/24 07:10 BMI result Body Mass Index 26.5 Const: General: comfortable, no acute distress and alert Orientation/consciousness: patient oriented x3 Resp: Effort & Inspection: normal respiratory effort GI: Inspection: No distended Palpation (GI): Soft to palpation and nontender Skin: General skin exam: no rashes or lesions noted Neuro: General: patient oriented x3 and moves all extremities DS: Data Data Completed and Pending Completed studies during hospitalization [Text1]: Procedures Control Bleeding in Gastrointestinal Tract, Via Natural or Artificial Opening Endoscopic (02/13/24) Destruction of Rectum, Via Natural or Artificial Opening Endoscopic (02/13/24) Excision of Duodenum, Via Natural or Artificial Opening Endoscopic, Diagnostic (02/13/24) Excision of Stomach, Pylorus, Via Natural or Artificial Opening Endoscopic, Diagnostic (02/13/24) Discharge Plan Discharge Anticipated Discharge Date/Time: 03/26/24 14:42 Patient Disposition: Home, Self-Care Discharge Diagnosis: PSBO Referrals: Vane Loja MD [Physician] - 1 Week (upon discharge) Catie Isabel CNP [Primary Care Provider] - 1 Week Discharge Medications: Continued fluticasone furoate-vilanterol [Breo Ellipta] 200-25 mcg/dose blister with device 1 inh inhalation DAILY 30 Days Qty: 60 3RF azithromycin 250 mg tablet 250 mg PO 3XW 28 Days Qty: 12 1RF Rx Instructions: Take 1 tablet on Saturday/Saturday/Saturday multivitamin Tablet 1 tab PO DAILY hydroxychloroquine 200 mg tablet 300 mg PO DAILY mesalamine 1,000 mg suppository 1,000 mg MN BEDTIME guaifenesin [Mucinex] 600 mg Tablet Extended Release 12hr 600 mg PO BID pantoprazole 40 mg tablet,delayed release (DR/EC) 40 mg PO BID@0630,1630 albuterol sulfate [Ventolin HFA] 90 mcg/actuation HFA aerosol inhaler 2 puff inhalation Q4H PRN (Reason: shortness of breath or wheezing) hydrocodone-acetaminophen 5-325 mg tablet 0.5 tab PO QID PRN (Reason: severe pain) lorazepam 1 mg tablet 1 mg PO BEDTIME PRN (Reason: Anxiety) sucralfate 100 mg/mL Suspension 2 g MN BID Qty: 1000 0RF polyethylene glycol 3350 17 gram Powder In Packet 17 g PO DAILY PRN (Reason: Constipation) Qty: 30 0RF cholecalciferol (vitamin D3) 125 mcg (5,000 unit) capsule 125 mcg PO DAILY lidocaine [Lidoderm] 5 % adhesive patch,medicated 1 patch topical DAILY PRN (Reason: Pain) Qty: 30 2RF Rx Instructions: leave on most painful area for up to 12 hours Discharge Orders: Discharge Order (Routine); Ordered 03/31/24 Ordered By: Vaishali Rodriguez Diet: Advance to usual diet Activity on Discharge: As tolerated Stand Alone Forms: Patient Portal Discharge page Print Language: Luxembourgish Activity Restrictions/Additional Instructions: Follow up with your PCP and Dr. Loja upon discharge. Continue respiratory care. Call Your Doctor If: ? ? -Your temperature exceeds 101.5? F? ? ? -You experience excessive pain or swelling ? ? -You have an unexpected reaction to medication ? ? -You experience continued vomiting/nausea Care Plan Goals: Return to baseline health and resume normal activities. Health Concerns: No new health issues Plan of Treatment: Convalescence Assessment: Stable Discharge Date/Time: 03/31/24 14:53
== END 2024-03-31 14:53 | disposition home or self-care (01) | DRG 390 ==
LOC: HO.ED 12:08 → HO.EDOVER 14:27 → HO.S3 03-24 07:08 → HO.IMC 03-27 14:16
PROVIDERS: Internal Medicine; Admitting Provider Physician Assistant Surgical; Emergency Provider Emergency Medicine; PCP Nurse Practitioner Primary Care; Visit Provider Surgery
DX: K56.600 Partial intestinal obstruction, unspecified as to cause (principal); J45.40 Moderate persistent asthma, uncomplicated; M35.02 Sjogren syndrome with lung involvement; J84.10 Pulmonary fibrosis, unspecified; J40 Bronchitis, not specified as acute or chronic; R55 Syncope and collapse; Z85.038 Personal history of other malignant neoplasm of large intestine; Z92.3 Personal history of irradiation; Z79.899 Other long term (current) drug therapy
CPT/HCPCS: 0241U; 36415; 71046; 74018; 74177; 74250; 80048; 80053; 80076; 81003; 82947; 83605; 83690; 84484; 85025; 85027; 93005; 94640; 94799; 99285; J1171; J2060; J2270; J2405; J2470; J7120; Q9967

== ENCOUNTER → 2024-03-23 09:30 | Outpatient (BNV) | payer MEDICARE, MEDICAID, SELFPAY | PROVIDERS: PCP Nurse Practitioner Primary Care; Visit Provider Radiology Diagnostic Radiology | DX: K56.699 Other intestinal obstruction unspecified as to partial versus complete obstruction (principal) | CPT/HCPCS: 74177 ==

== ENCOUNTER 2024-03-23 14:15 | Outpatient (BNV) | payer MEDICARE, MEDICAID, SELFPAY | END 2024-03-27 12:34 | PROVIDERS: Admitting Provider Physician Assistant Surgical; Emergency Provider Emergency Medicine; PCP Nurse Practitioner Primary Care; Visit Provider Internal Medicine Cardiovascular Disease | DX: R55 Syncope and collapse (principal); I45.19 Other right bundle-branch block; R94.31 Abnormal electrocardiogram [ECG] [EKG] | CPT/HCPCS: 93010 ==

== ENCOUNTER 2024-03-23 14:15 | Outpatient (BNV) | payer MEDICARE, MEDICAID, SELFPAY | END 2024-03-27 06:00 | PROVIDERS: Admitting Provider Physician Assistant Surgical; Emergency Provider Emergency Medicine; PCP Nurse Practitioner Primary Care; Visit Provider Radiology Diagnostic Radiology | DX: K56.609 Unspecified intestinal obstruction, unspecified as to partial versus complete obstruction (principal); R10.9 Unspecified abdominal pain | CPT/HCPCS: 74250 ==

== ENCOUNTER 2024-03-23 14:15 | Outpatient (BNV) | payer MEDICARE, MEDICAID, SELFPAY | END 2024-03-29 14:45 | PROVIDERS: Admitting Provider Physician Assistant Surgical; Emergency Provider Emergency Medicine; PCP Nurse Practitioner Primary Care; Visit Provider Nuclear Medicine | DX: R91.8 Other nonspecific abnormal finding of lung field (principal) | CPT/HCPCS: 71046 ==

== ENCOUNTER → 2024-03-23 14:15 | Outpatient (BNV) | payer MEDICARE, MEDICAID, SELFPAY | PROVIDERS: Admitting Provider Physician Assistant Surgical; Emergency Provider Emergency Medicine; PCP Nurse Practitioner Primary Care; Visit Provider Surgery | DX: K56.600 Partial intestinal obstruction, unspecified as to cause (principal); Z87.19 Personal history of other diseases of the digestive system | CPT/HCPCS: 99222 ==

== ENCOUNTER → 2024-03-23 14:15 | Outpatient (BNV) | payer MEDICARE, MEDICAID, SELFPAY | PROVIDERS: Admitting Provider Physician Assistant Surgical; Emergency Provider Emergency Medicine; PCP Nurse Practitioner Primary Care; Visit Provider Hospitalist | DX: J44.9 Chronic obstructive pulmonary disease, unspecified (principal); J40 Bronchitis, not specified as acute or chronic; J84.9 Interstitial pulmonary disease, unspecified | CPT/HCPCS: 99223 ==

== ENCOUNTER → 2024-03-23 14:15 | Outpatient (BNV) | payer MEDICARE, MEDICAID, SELFPAY | PROVIDERS: Admitting Provider Physician Assistant Surgical; Emergency Provider Emergency Medicine; PCP Nurse Practitioner Primary Care; Visit Provider Internal Medicine | DX: R55 Syncope and collapse (principal) | CPT/HCPCS: 99222 ==

== ENCOUNTER 2024-10-23 21:27 | Emergency (ER) | payer MEDICARE, MEDICAID, SELFPAY ==
--- NOTE | ~2024-10-23 | CT_ITS ---
CLINICAL HISTORY: dyspnea, tachycardia, hypoxia CT angiography chest with contrast. 3D Postprocessing. Comparison: CR - XR CHEST 2V - 03/29/24 15:49 EST Findings: Cardiomegaly. No pericardial effusion. Normal RV/LV ratio. Aortic atherosclerosis. No aneurysm. No central pulmonary embolus. More distal branches are not adequately assessed due to suboptimal opacification and motion artifact. The visualized thyroid and mediastinum are unremarkable. Bilateral predominantly peripheral honeycombing and ground-glass opacities concerning for fibrosis. No pleural effusion or pneumothorax. Cholecystectomy. No acute findings in the visualized upper abdomen. The bones are intact. Degenerative changes of the spine. IMPRESSION: 1. No acute pulmonary embolus in visualized central pulmonary arteries, with suboptimal evaluation of distal vessels. 2. Bilateral peripheral honeycombing and ground-glass opacities concerning for fibrosis. This document has been electronically signed by: Rajeev Cabrera MD on 10/23/2024 23:54:10
--- NOTE | ~2024-10-23 | US_ITS ---
CLINICAL HISTORY: pain, swelling Venous duplex ultrasound right lower extremity Comparison: None provided Findings: The visualized deep veins are fully compressible with normal Doppler color flow and spectral tracings. No popliteal cyst. IMPRESSION: 1. Negative for right lower extremity deep vein thrombosis. This document has been electronically signed by: Rajeev Cabrera MD on 10/23/2024 22:49:43
[2024-10-23 21:33] VITALS: BP 140/62; PULSE 107; RESP 22; O2SAT 97; BMI 25.6
--- NOTE | 2024-10-23 21:39 | ECG_ITS ---
Test Reason : DYSPNEA Blood Pressure : */* mmHG Vent. Rate : 113 BPM Atrial Rate : 113 BPM P-R Int : 146 ms QRS Dur : 86 ms QT Int : 350 ms P-R-T Axes : 36 -38 11 degrees QTcB Int : 480 ms Sinus tachycardia with occasional Premature ventricular complexes Left axis deviation Possible Inferior infarct , age undetermined Possible Anterolateral infarct (cited on or before 12-Mar-2018) Abnormal ECG When compared with ECG of 27-Mar-2024 12:34, Premature ventricular complexes are now Present Incomplete right bundle branch block is no longer Present Referred By: Deisy Emerson Electronically Signed By: Gil Del Castillo
--- NOTE | 2024-10-23 21:40 | PC.NURSE ---
Triaged, then escorted via wheelchair to ED 16. aware of chief complaint and vitals.
[2024-10-23] MEDS: Albuterol Sulfate (0.083%) 2.5 MG/3 ML VIAL.NEB INHALE (21:49)
[2024-10-23] MEDS: Magnesium Sulfate/H2O 2 GM/50 ML PIGGYBACK IV (21:53)
[2024-10-23 21:54] LABS: MANUAL DIFF FLAG NO
[2024-10-23 21:56] LABS: Hematocrit 31.5 % (37.0-47.0); Hemoglobin 10.5 g/dl (12.0-16.0); Imm Gran Abs Auto 0.02 X10*3/uL (0.00-0.03); Imm Gran Pct Auto 0.4 % (0.0-0.4); Lymphocytes Absolute Auto 1.0 X10*3/uL (1.2-4.9); Mean Corpuscular HGB Conc 33.3 g/dl (31.0-35.0); Mean Corpuscular Hemoglobin 33.2 pg (27.0-33.0); Mean Corpuscular Volume 99.7 fL (80.0-98.0); NRBC Abs Auto 0.000 X10*3/uL (0.0-0.012); NRBC Pct Auto 0.0 /100WBC (0.0-0.2); Platelet Count 217 X10*3/uL (160-400); Red Blood Count 3.16 X10*6/uL (4.20-5.50); White Blood Count 5.4 X10*3/uL (4.8-10.8)
[2024-10-23 22:02] LABS: VBG HCO3 24 mmol/L (22-26); VBG O2 % Saturation 59.0 %
[2024-10-23 22:03] LABS: Venous Blood Gas Refer to POC result
--- NOTE | 2024-10-23 22:06 | PC.NURSE ---
PT refusing COVID swab. Provider made aware.
--- NOTE | 2024-10-23 22:15 | PC.NURSE ---
abx delay d/t needing 2nd set of BC
[2024-10-23 22:16] LABS: B Type Natriuretic Peptide 32 pg/mL (<100)
[2024-10-23 22:17] VITALS: BP 98/50; PULSE 113; RESP 18; TEMP 36.7; O2SAT 95
[2024-10-23 22:18] VITALS: PULSE 113
[2024-10-23 22:18] LABS: Alanine Aminotransferase 35 U/L (0-31); Albumin Level 3.6 g/dL (3.5-5.0); Alkaline Phosphatase 141 U/L (39-117); Anion Gap 12 (12-20); Aspartate Amino Transferase 62 U/L (5-31); Blood Urea Nitrogen 21 mg/dL (9-16); Calcium 9.0 mg/dL (8.4-10.2); Carbon Dioxide 22 mmol/L (22-29); Chloride 107 mmol/L (96-108); Creatinine Clr Calc Pharmacy 48.1; Estimated Glomerular Filt Rate > 60; Magnesium 2.2 mg/dL (1.6-2.6); Potassium 4.7 mmol/L (3.3-5.1); Sodium 136 mmol/L (135-145); Total Protein 8.2 g/dL (6.5-8.0); Troponin-I High Sensitivity < 2.7 ng/L (<3.5-17.0)
--- OUTSIDE RECORDS SUMMARY | 2024-10-23 22:20 | XMS_ITS | Patient Health Record ---
Author Organization [facility] Address [address] [place] [id number] Care Team Providers Care Community Manager Name Role Phone Leyla Gonsales Unavailable [phone] Reason For Referral No Information Plan Of Treatment No Information Insurance Providers Payer Name Payer Address Payer Phone Subscriber Number Group Number Insured Name Patient Relationship to Insured Coverage Start Date Coverage End Date MEDICARE [address] [place], [place] [id number] VINCENZO URBANO Self - patient is the insured
--- OUTSIDE RECORDS SUMMARY | 2024-10-23 22:20 | XMS_ITS | Clinical Summary ---
Author Organization [address] Address [address] [place] [phone] Phone Care Team Providers Care Hall Monitor Name Role Phone Nile Rodarte DO Primary Care Provider [phone] Allergies No known active allergies Medications PREMARIN 0.625 mg/gram Crea 03/08/2015 Active meclizine (ANTIVERT) 25 mg tablet 03/17/2015 Active permethrin (ELIMITE) 5 % cream APPLY AND KEEP ON OVERNIGHT, RINSE OFF IN THE MORNING. THEN REPEAT IN 1 WEEK 1 05/09/2015 Active NASONEX 50 mcg/actuation [place] USE 2 SPRAYS IN EACH NOSTRIL ONCE DAILY 5 05/14/2015 Active ranitidine (ZANTAC) 300 MG tablet TAKE ONE TABLET BY MOUTH AT BEDTIME 5 05/14/2015 Active Active Problems Problem Noted Date Diagnosed Date Strain of left rotator cuff capsule, initial enc ounter 05/01/2015 Overview (11/22/2015): IMO 2016 R2.1 update change Strain of right rotator cuff capsule, initial en counter 05/01/2015 Overview (11/22/2015): IMO 2016 R2.1 update change Social History Tobacco Use Types Packs/Day Years Used Date Smoking Tobacco: Never Alcohol Use Standard Drinks/Week Comments No 0 (1 standard drink = 0.6 oz pur e alcohol) Comments No Sex and Gender Information Value Date Recorded Sex Assigned at Not on file Legal Sex Female 2:15 PM EST Gender Identity Not on file Sexual Orientation Not on file Last Filed Vital Signs Vital Sign Reading Time Taken Comments Blood Pressure 130/80 06/01/2015 2:24 PM EDT Pulse 101 04/27/2015 2:09 PM EST Temperature - - Respiratory Rate - - Oxygen Saturation - - Inhaled Oxygen Concentration - - Weight 74.8 kg (165 lb) 06/01/2015 2:24 PM EDT Height 157.5 cm (5' 2 ) 06/01/2015 2:24 PM EDT Body Mass Index 30.18 06/01/2015 2:24 PM EDT Plan of Treatment Health Maintenance Due Date Last Done Comments HIV screening 1961 Hepatitis C screening 1966 Tetanus adult (Td q 10,TDAP once) 1968 Lipid disorder screening 1988 Diabetes screening 1993 Pneumococcal Vaccine (50+ ye ars) (1 of 1 - PCV) 1998 Shingles vaccine (Shingrix) (1 of 2 - Shingrix (RZV) 2 Dose Standard Series) 1998 Osteoporosis screening (bone density) 2013 RSV Immunization (1 - 1-dose 75+ series) 2023 Covid-19 vaccine series ( - 2023-25 season) 2023 Influenza vaccine 11/09/2024 Breast cancer screening Discontinued Cervical cancer screening Discontinued Colon cancer screening, Colonoscopy Discontinued Meningococcal Vaccine Aged Out No esdras vanesa eligible based on patient's age to complete this topic Insurance MEDICARE COMMERCIAL GENERIC MEDICARE Member Subscriber Plan / Payer ( fective 2013-Present) Name:DanielBrandie joyae Nathan Member ID:[id number] Relation to Subscriber:Self Name:DanielmernaLuh mainne Nathan Subscriber ID:[id number] Payer ID:[id number] Group ID:Not on file Type:Not on file Address: [place] [id number] [employer] GENERIC MEDICARE COMMERCIAL GENERIC MEDICARE COMMERCIAL GENERIC Care Teams Hall Monitor Relationship Specialty Start Date End Date Nile Rodarte DO PCP - General Internal Medicine 04/12/15
--- OUTSIDE RECORDS SUMMARY | 2024-10-23 22:20 | XMS_ITS | Clinical Summary ---
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 She confirmed several times she has tolerated IV contrast and she just had it a few weeks ago without requiring premedication and with no adverse effects Yoon Acosta [facility] DENISSE Medications VENTOLIN HFA 90 mcg/actuation inhaler Inhale 2 puffs into the lungs every 6 (six) hours as needed for wheezing. 01/31/20 24 Active BREO ELLIPTA 200-25 mcg/dose inhaler Inhale 1 puff into the lungs daily. 01/31/20 24 Active sucralfate (CARAFATE) 1 gram tablet PLEASE SEE ATTACHED FOR DETAILED DIRECTIONS 03/10/20 24 Active aluminum-magnesium hydroxide-simethic one (MAALOX) 200-200-20 mg/5 mL Susp Take 30 mL by mouth every 6 (six) hours as needed (indigestion, heartburn). Shake Well 05/14/19 25 Active docusate sodium (COLACE) 100 MG capsule Take 2 capsules (200 mg total) by mouth 2 (two) times a day. 05/14/19 25 Active ondansetron (ZOFRAN-ODT) 4 MG disintegrating tablet Take 1 tablet (4 mg total) by mouth every 6 (six) hours as needed for nausea. 05/14/19 25 Active acetaminophen (TYLENOL) 325 mg tablet Take 2 tablets (650 mg total) by mouth every 6 (six) hours. 05/30/19 Active ibuprofen (ADVIL,MOTRIN) 400 MG tablet Take 1 tablet (400 mg total) by mouth every 6 (six) hours. 05/30/19 Active HYDROcodone-acetam inophen (NORCO) 5-325 mg per tablet Take 1 tablet by mouth every 6 (six) hours as needed for pain (specific location in comments). Partial fill ok 8 tablet 07/13/19 Active Additional Information Patient taking differently:1 tablet OralEvery 12 hours PRN, pain (specific location in comments), Partial fill ok, Reported on 08/13/2024 gabapentin (NEURONTIN) 100 MG capsule Take 3 capsules (300 mg total) by mouth 3 (three) times a day for 7 days. 63 capsule 07/31/19 Active LORazepam (ATIVAN) 1 MG tablet Take 1 mg by mouth 2 (two) times a day as needed for anxiety. Active mesalamine (CANASA) [address] 1,000 mg rectally nightly at bedtime. 07/14/19 25 Active Active Problems Problem Noted Date Diagnosed Date IPMN (intraductal papillary mucinous neoplasm) 0 08/15/2024 Assessment & Plan (08/22/2024 11:53 AM EDT): Last Had mri 03/2024 Assessment & Plan (08/21/2024 9:17 AM EDT): Last Had mri 03/2024 Assessment & Plan (08/20/2024 1:01 PM EDT): Last Had mri 03/2024 Assessment & Plan (08/19/2024 4:10 PM EDT): Last Had mri 03/2024 Assessment & Plan (08/18/2024 3:17 PM EDT): Last Had mri 03/2024 Assessment & Plan (08/17/2024 3:45 PM EDT): Last Had mri 03/2024 Assessment & Plan (08/16/2024 1:00 PM EDT): Last Had mri 03/2024 Assessment & Plan (08/15/2024 12:45 PM EDT): Had mri 03/2024 Cirrhosis 08/14/2024 Assessment & Plan (08/22/2024 11:53 AM EDT): being followed by [facility]. June 2024 had fibrosis test consistent with advanced disease. Patient says she has a follow-up with [facility] samson Assessment & Plan (08/21/2024 9:17 AM EDT): being followed by [facility]. June 2024 had fibrosis test consistent with advanced disease. Patient says she has a follow-up with [facility] samson Assessment & Plan (08/20/2024 1:01 PM EDT): being followed by [facility]. June 2024 had fibrosis test consistent with advanced disease. Patient says she has a follow-up with [facility] samson Assessment & Plan (08/19/2024 4:10 PM EDT): being followed by [facility]. June 2024 had fibrosis test consistent with advanced disease. Patient says she has a follow-up with [facility] samson Assessment & Plan (08/18/2024 3:17 PM EDT): being followed by [facility]. June 2024 had fibrosis test consistent with advanced disease. Patient says she has a follow-up with [facility] samson Assessment & Plan (08/17/2024 3:45 PM EDT): being followed by [facility]. June 2024 had fibrosis test consistent with advanced disease. Patient says she has a follow-up with [facility] samson Assessment & Plan (08/16/2024 1:00 PM EDT): being followed by [facility]. June 2024 had fibrosis test consistent with advanced disease. Patient says she has a follow-up with [facility] samson Assessment & Plan (08/15/2024 12:45 PM EDT): being followed by GI. June 2024 had fibrosis test consistent with advanced disease. Patient says she has a follow-up with [facility] stauffer Assessment & Plan (08/14/2024 1:56 PM EDT): being followed by GI. June 2024 had fibrosis test showing consistent with advanced disease Shingles 08/13/2024 Assessment & Plan (08/22/2024 11:53 AM EDT): Recent episode of shingles left lateral chest wall, she had completed a course of Valtrex for 7 days and then completed a second course. On gabapentin for pain -- Had been receiving IV hydromorphone, and transition to p.o. Continue efforts to taper -- Continue Lidoderm patch, gabapentin Assessment & Plan (08/21/2024 2:50 PM EDT): Recent episode of shingles left lateral chest wall, she had completed a course of Valtrex for 7 days and is now on another 7-day course, - continue. Also started on gabapentin. -- Had been receiving IV hydromorphone, and transition to p.o. Continue efforts to taper --Lidoderm patch Assessment & Plan (08/20/2024 1:01 PM EDT): Recent episode of shingles left lateral chest wall, she had completed a course of Valtrex for 7 days and is now on another 7-day course, - continue. Also started on gabapentin. -- Had been receiving IV hydromorphone, now transition to p.o. Patient in support of tapering opioids, understands can contribute to slowing of bowel function Assessment & Plan (08/19/2024 4:10 PM EDT): Recent episode of shingles left lateral chest wall, she had completed a course of Valtrex for 7 days and is now on another 7-day course, - continue. Also started on gabapentin. -- Has been receiving IV hydromorphone which may be slowing bowel motility, will transition to p.o. and de escalate Assessment & Plan (08/18/2024 3:17 PM EDT): Recent episode of shingles left lateral chest wall, she had completed a course of Valtrex for 7 days and is now on another 7-day course, - continue. Also started on gabapentin. Patient has a lot of pain. using Dilaudid for this she reports Assessment & Plan (08/17/2024 3:45 PM EDT): Recent episode of shingles left lateral chest wall, she had completed a course of Valtrex for 7 days and is now on another 7-day course, - continue. Also started on gabapentin. Patient has a lot of pain. using Dilaudid for this she reports Assessment & Plan (08/16/2024 12:50 PM EDT): Recent episode of shingles left lateral chest wall, she had completed a course of Valtrex for 7 days and is now on another 7-day course, - continue. Also started on gabapentin. Patient has a lot of pain. using Dilaudid for this she reports Assessment & Plan (08/15/2024 12:45 PM EDT): Recent episode of shingles left lateral chest wall, she had completed a course of Valtrex for 7 days and is now on another 7-day course, - continue. Also started on gabapentin. Patient has a lot of pain. Mainly using Dilaudid for this she shares today Assessment & Plan (08/14/2024 1:52 PM EDT): Recent episode of shingles, she has completed a course of Valtrex for 7 days and is now on another 7-day course, we will continue. Assessment & Plan (08/13/2024 11:41 AM EDT): Recent episode of shingles, she has completed a course of Valtrex for 7 days and is now on another 7-day course, we will continue. Anemia 04/29/2024 Assessment & Plan (05/12/2024 4:01 PM EST): Anemia likely multifactorial. 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 B12, iron, folate in normal range. Patient continues to have small BRBPR from her radiation proctitis. Was scheduled for APC therapy with colonoscopy recently with Dr Ware however prep inadequate and rescheduled for June. Had EGD at [facility] in fall 2023 showing gastritis at that time also had treatment for radiation proctitis. Admitted here in February 2024 with bloody stool. Had APC therapy. Rectal mesalamine started. Hemoglobin with initial drop but stable since (Had incidental findings on CT during admission in 02/2024 at [facility] cirrhosis hypodensity in pancreatic neck hypodensity left lobe of the liver. Had follow-up MRI in March reassuring, of note does have chronic intrahepatic biliary dilation chronic prominent common bile duct, cirrhosis not mentioned pancreatic cystic lesion no abnormal enhancement, consistent with IPMN, renal cysts , liver lesion no abnormal enhancement----PCP problem list has JUAN, no cirrhosis on that list ) Assessment & Plan (05/11/2024 8:30 PM EST): Anemia likely multifactorial. 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 Was scheduled for APC therapy with colonoscopy recently with Dr Ware however prep inadequate and rescheduled for June. Had EGD at [facility] in fall 2023 showing gastritis at that time also had treatment for radiation proctitis. Admitted here in February 2024 with bloody stool. Had APC therapy. Rectal mesalamine started Hemoglobin with initial drop but stable since (Had incidental findings on CT during admission in 02/2024 at [facility] cirrhosis hypodensity in pancreatic neck hypodensity left lobe of the liver. Had follow-up MRI in March reassuring, of note does have chronic intrahepatic biliary dilation chronic prominent common bile duct, cirrhosis not mentioned pancreatic cystic lesion no abnormal enhancement, consistent with IPMN, renal cysts , liver lesion no abnormal enhancement----PCP problem list has JUAN, no cirrhosis on that list ) Assessment & Plan (05/10/2024 2:19 PM EST): Anemia likely multifactorial. 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 Was scheduled for APC therapy with colonoscopy recently with Dr Ware however prep inadequate and rescheduled for June. Had EGD at [facility] in fall 2023 showing gastritis at that time also had treatment for radiation proctitis. Admitted here in February 2024 with bloody stool. Had APC therapy. Rectal mesalamine started Hemoglobin with initial drop but stable since (Had incidental findings on CT during admission in 02/2024 at [facility] cirrhosis hypodensity in pancreatic neck hypodensity left lobe of the liver. Had follow-up MRI in March reassuring, of note does have chronic intrahepatic biliary dilation chronic prominent common bile duct, cirrhosis not mentioned pancreatic cystic lesion no abnormal enhancement, consistent with IPMN, renal cysts , liver lesion no abnormal enhancement----PCP problem list has JUAN, no cirrhosis on that list ) Assessment & Plan (05/09/2024 10:35 AM EST): Anemia likely multifactorial. 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 Was scheduled for APC therapy with colonoscopy recently with Dr Ware however prep inadequate and rescheduled for June. Had EGD at [facility] in fall 2023 showing gastritis at that time also had treatment for radiation proctitis. Admitted here in February 2024 with bloody stool. Had APC therapy. Rectal mesalamine started Hemoglobin with initial drop but stable since (Had incidental findings on CT during admission in 02/2024 at [facility] cirrhosis hypodensity in pancreatic neck hypodensity left lobe of the liver. Had follow-up MRI in March reassuring, of note does have chronic intrahepatic biliary dilation chronic prominent common bile duct, cirrhosis not mentioned pancreatic cystic lesion no abnormal enhancement, consistent with IPMN, renal cysts , liver lesion no abnormal enhancement----PCP problem list has JUAN, no cirrhosis on that list ) Assessment & Plan (05/08/2024 6:41 PM EST): Anemia likely multifactorial. 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 Was scheduled for APC therapy with colonoscopy recently with dr ware however prep inadequate and rescheduled for June. Had EGD at [facility] in fall 2023 showing gastritis at that time also had treatment for radiation proctitis. Admitted here in February 2024 with bloody stool. Had APC therapy. Rectal mesalamine started Hemoglobin with initial drop but stable since (Had incidental findings on CT during admission in 02/2024 at [facility] cirrhosis hypodensity in pancreatic neck hypodensity left lobe of the liver. Had follow-up MRI in March reassuring, of note does have chronic intrahepatic biliary dilation chronic prominent common bile duct, cirrhosis not mentioned pancreatic cystic lesion no abnormal enhancement, consistent with IPMN, renal cysts , liver lesion no abnormal enhancement----PCP problem list has JUAN, no cirrhosis on that list ) Assessment & Plan (05/07/2024 4:54 PM EST): Anemia likely multifactorial. 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 Was scheduled for APC therapy with colonoscopy recently with dr ware however prep inadequate and rescheduled for June. Had EGD at [facility] in fall 2023 showing gastritis at that time also had treatment for radiation proctitis. Admitted here in February 2024 with bloody stool. Had APC therapy. Rectal mesalamine started Hemoglobin with initial drop but stable since (Had incidental findings on CT during admission in 02/2024 at [facility] cirrhosis hypodensity in pancreatic neck hypodensity left lobe of the liver. Had follow-up MRI in March reassuring, of note does have chronic intrahepatic biliary dilation chronic prominent common bile duct, cirrhosis not mentioned pancreatic cystic lesion no abnormal enhancement, consistent with IPMN, renal cysts , liver lesion no abnormal enhancement----PCP problem list has JUAN, no cirrhosis on that list ) Assessment & Plan (05/06/2024 10:20 AM EST): Anemia likely multifactorial. 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 Was scheduled for APC therapy with colonoscopy recently with dr ware however prep inadequate and rescheduled for June. Had EGD at [facility] in fall 2023 showing gastritis at that time also had treatment for radiation proctitis. Admitted here in February 2024 with bloody stool. Had APC therapy. Rectal mesalamine started Hemoglobin with initial drop but stable since (Had incidental findings on CT during admission in 02/2024 at [facility] cirrhosis hypodensity in pancreatic neck hypodensity left lobe of the liver. Had follow-up MRI in March reassuring, of note does have chronic intrahepatic biliary dilation chronic prominent common bile duct, cirrhosis not mentioned pancreatic cystic lesion no abnormal enhancement, consistent with IPMN, renal cysts , liver lesion no abnormal enhancement----PCP problem list has JUAN, no cirrhosis on that list ) Assessment & Plan (05/05/2024 4:47 PM EST): Anemia likely multifactorial. 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 Was scheduled for APC therapy with colonoscopy recently with dr ware however prep inadequate and rescheduled for June. Had EGD at [facility] in fall 2023 showing gastritis at that time also had treatment for radiation proctitis. Admitted here in February 2024 with bloody stool. Had APC therapy. Rectal mesalamine started Hemoglobin with initial drop but stable since (Had incidental findings on CT during admission in 02/2024 at [facility] cirrhosis hypodensity in pancreatic neck hypodensity left lobe of the liver. Had follow-up MRI in March reassuring, of note does have chronic intrahepatic biliary dilation chronic prominent common bile duct, cirrhosis not mentioned pancreatic cystic lesion no abnormal enhancement, consistent with IPMN, renal cysts , liver lesion no abnormal enhancement----PCP problem list has JUAN, no cirrhosis on that list ) Assessment & Plan (05/04/2024 1:00 PM EST): Anemia likely multifactorial. 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 Was scheduled for APC therapy with colonoscopy recently with dr ware however prep inadequate and rescheduled for June. Had EGD at [facility] in fall 2023 showing gastritis at that time also had treatment for radiation proctitis. Admitted here in February 2024 with bloody stool. Had APC therapy. Rectal mesalamine started Hemoglobin with initial drop but stable since (Had incidental findings on CT during admission in 02/2024 at [facility] cirrhosis hypodensity in pancreatic neck hypodensity left lobe of the liver. Had follow-up MRI in March reassuring, of note does have chronic intrahepatic biliary dilation chronic prominent common bile duct, cirrhosis not mentioned pancreatic cystic lesion no abnormal enhancement, consistent with IPMN, renal cysts , liver lesion no abnormal enhancement----PCP problem list has JUAN, no cirrhosis on that list ) Assessment & Plan (05/03/2024 3:29 PM EST): Anemia likely multifactorial. 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 Was scheduled for APC therapy with colonoscopy recently however prep inadequate and rescheduled for June. Had EGD at [facility] in fall 2023 showing gastritis at that time also had treatment for radiation proctitis. Admitted here in February 2024 with bloody stool. Had APC therapy. Rectal mesalamine started Hemoglobin with initial drop but stable since (Had incidental findings on CT during admission in 02/2024 at [facility] cirrhosis hypodensity in pancreatic neck hypodensity left lobe of the liver. Had follow-up MRI in March reassuring, of note does have chronic intrahepatic biliary dilation chronic prominent common bile duct, cirrhosis not mentioned pancreatic cystic lesion no abnormal enhancement, consistent with IPMNrenal cysts liver lesion no abnormal enhancement----PCP notes list JUAN) Assessment & Plan (05/03/2024 12:42 PM EST): Anemia likely multifactorial. 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 Was scheduled for APC therapy with colonoscopy recently however prep inadequate and rescheduled for June. Had EGD at [facility] in fall 2023 showing gastritis at that time also had treatment for radiation proctitis. Admitted here in February 2024 with bloody stool. Had APC therapy. Rectal mesalamine started Hemoglobin with initial drop but stable since (Had incidental findings on CT during admission in 02/2024 at [facility] cirrhosis hypodensity in pancreatic neck hypodensity left lobe of the liver. Had follow-up MRI in March reassuring, of note does have chronic intrahepatic biliary dilation chronic prominent common bile duct, cirrhosis not mentioned pancreatic cystic lesion no abnormal enhancement, consistent with IPMNrenal cysts liver lesion no abnormal enhancement----PCP notes list JUAN) Assessment & Plan (05/02/2024 3:17 PM EST): Anemia likely multifactorial. 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 Was scheduled for APC therapy with colonoscopy recently however prep inadequate and rescheduled for June. Had EGD at [facility] in fall 2023 showing gastritis at that time also had treatment for radiation proctitis. Admitted here in February 2024 with bloody stool. Had APC therapy. Rectal mesalamine started Hemoglobin with initial drop but stable since (Had incidental findings on CT during admission in 02/2024 at [facility] cirrhosis hypodensity in pancreatic neck hypodensity left lobe of the liver. Had follow-up MRI in March reassuring, of note does have chronic intrahepatic biliary dilation chronic prominent common bile duct, cirrhosis not mentioned pancreatic cystic lesion no abnormal enhancement, consistent with IPMNrenal cysts liver lesion no abnormal enhancement----PCP notes list JUAN) Assessment & Plan (05/01/2024 1:27 PM EST): Anemia likely multifactorial. In part due to chronic blood loss due to radiation proctitis B12 iron folate in normal range Patient continues to have some blood in her stool from her radiation proctitis. Was scheduled for APC therapy with colonoscopy recently however prep inadequate and rescheduled for June. Had EGD at [facility] in fall 2023 showing gastritis at that time also had treatment for radiation proctitis. Admitted here in February 2024 with bloody stool. Had APC therapy. Rectal mesalamine started (Had incidental findings on CT during admission in 02/2024 at [facility] cirrhosis hypodensity in pancreatic neck hypodensity left lobe of the liver. Had follow-up MRI in March reassuring, of note does have chronic intrahepatic biliary dilation chronic prominent common bile duct, cirrhosis not mentioned pancreatic cystic lesion no abnormal enhancement, consistent with IPMNrenal cysts liver lesion no abnormal enhancement) Assessment & Plan (04/30/2024 2:26 PM EST): Anemia likely multifactorial. In part due to chronic blood loss due to radiation proctitis B12 iron folate in normal range Patient continues to have some blood in her stool from her radiation proctitis. Was scheduled for APC therapy with colonoscopy recently however prep inadequate and rescheduled for June. Had EGD at [facility] in fall 2023 showing gastritis at that time also had treatment for radiation proctitis. Admitted here in February 2024 with bloody stool. Had APC therapy. Rectal mesalamine started (Had incidental findings on CT during admission in 02/2024 at [facility]. Had follow-up MRI in March reassuring, of note does have chronic intrahepatic biliary dilation chronic prominent common bile duct) Assessment & Plan (04/29/2024 11:47 AM EST): Developing macrocytic anemia, presented with hemoglobin of 11.7 and has since down trended to 9.6. No rectal bleeding overnight. Vital stable. She reports prior history of ulcer disease. No epigastric pain currently. -Iron studies, B12, folate pending -Parietal ab, intrinsic ab pening -Trend Hemochromatosis 04/29/2024 Assessment & Plan (05/12/2024 4:01 PM EST): Pt Reports history of hemochromatosis. She denies having had any phlebotomy for this though family members have been treated with this. Review of records in [facility] does not reveal a diagnosis of hemochromatosis Fe 44 ferritin 119 Assessment & Plan (05/11/2024 8:30 PM EST): Pt Reports history of hemochromatosis. She denies having had any phlebotomy for this though family members have been treated with this. Review of records in [facility] does not reveal a diagnosis of hemochromatosis Fe 44 ferritin 119 Assessment & Plan (05/10/2024 2:19 PM EST): Pt Reports history of hemochromatosis. She denies having had any phlebotomy for this though family members have been treated with this. Review of records in [facility] does not reveal a diagnosis of hemochromatosis Fe 44 ferritin 119 Assessment & Plan (05/09/2024 10:35 AM EST): Pt Reports history of hemochromatosis. She denies having had any phlebotomy for this though family members have been treated with this. Review of records in [facility] does not reveal a diagnosis of hemochromatosis Fe 44 ferritin 119 Assessment & Plan (05/08/2024 6:41 PM EST): Pt Reports history of hemochromatosis. She denies having had any phlebotomy for this though family members have been treated with this. Review of records in [facility] does not reveal a diagnosis of hemochromatosis Fe 44 ferritin 119 Assessment & Plan (05/07/2024 4:54 PM EST): Pt Reports history of hemochromatosis. She denies having had any phlebotomy for this though family members have been treated with this. Review of records in [facility] does not reveal a diagnosis of hemochromatosis This week iron panel checked, Fe 44 ferritin 119 Assessment & Plan (05/06/2024 10:20 AM EST): Pt Reports history of hemochromatosis. She denies having had any phlebotomy for this though family members have been treated with this. Review of records in [facility] does not reveal a diagnosis of hemochromatosis This week iron panel checked, Fe 44 ferritin 119 Assessment & Plan (05/05/2024 4:47 PM EST): Pt Reports history of hemochromatosis. She denies having had any phlebotomy for this though family members have been treated with this. Review of records in [facility] does not reveal a diagnosis of hemochromatosis This week iron panel checked, Fe 44 ferritin 119 Assessment & Plan (05/04/2024 1:00 PM EST): Pt Reports history of hemochromatosis. She denies having had any phlebotomy for this though family members have been treated with this. Review of records in [facility] does not reveal a diagnosis of hemochromatosis This week iron panel checked, Fe 44 ferritin 119 Assessment & Plan (05/03/2024 3:29 PM EST): Reports history of hemochromatosis. She denies having had any phlebotomy for this though family members have been treated with this. Fe 44 ferritin 119 Assessment & Plan (05/03/2024 12:42 PM EST): Reports history of hemochromatosis. She denies having had any phlebotomy for this though family members have been treated with this. Fe 44 ferritin 119 Assessment & Plan (05/02/2024 1:13 PM EST): Reports history of hemochromatosis. She denies having had any phlebotomy for this though family members have been treated with this. Fe 44 ferritin 119 Assessment & Plan (05/01/2024 1:27 PM EST): Reports history of hemochromatosis. She denies having had any phlebotomy for this though family members have been treated with this. Fe 44 ferritin 119 Assessment & Plan (04/30/2024 2:26 PM EST): Reports history of hemochromatosis. She denies having had any phlebotomy for this though family members have been treated with this. Fe 44 ferritin 119 Assessment & Plan (04/29/2024 10:36 AM EST): Reports history of hemochromatosis. She denies having had any phlebotomy for this though family members have been treated with this. 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 Usually managed medically but in May admitted to [facility] with sbo but failed conservative treatment, transferred from [facility] to [facility].CT with partial SBO with multifocal stricturing , and foci concerning for carcinomatosis At [facility] Underwent diagnostic laparoscopy, no visual evidence cancer.per opnote There was. 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 Surgeon did not intervene at all as patient not completely obstructed, would need a major laparotomy with significant risk if proceeded, adhesions vascularized significantly cirrhotic liver. (Ascites sent for path, no cancer) Presented to [facility] ED 08/13 with several days of abdominal pain. Also reported vomiting CT showed small bowel obstruction with transition point involving distal small bowel loops in the pelvis, cirrhotic liver with small volume ascites [facility] surgeon contacted, said patient could transfer but pt declined. Patient seen by [facility] surgeon. Admitted w/ conservative treatment -n.p.o. IV fluid bowel rest. She is showing gradual signs of improvement, but bowel function has not fully normalized. She is still having left-sided abdominal pain, exacerbated by eating. Otherwise advancing diet and passing small amounts of stool -- Will continue to monitor. 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 Usually managed medically but in May admitted to [facility] with sbo but failed conservative treatment, transferred from [facility] to [facility].CT with partial SBO with multifocal stricturing , and foci concerning for carcinomatosis At [facility] Underwent diagnostic laparoscopy, no visual evidence cancer.per opnote There was. 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 Surgeon did not intervene at all as patient not completely obstructed, would need a major laparotomy with significant risk if proceeded, adhesions vascularized significantly cirrhotic liver. (Ascites sent for path, no cancer) Presented to [facility] ED 08/13 with several days of abdominal pain. Also reported vomiting CT showed small bowel obstruction with transition point involving distal small bowel loops in the pelvis, cirrhotic liver with small volume ascites [facility] surgeon contacted, said patient could transfer but pt declined. Patient seen by [facility] surgeon. Admitted w/ conservative treatment -n.p.o. IV fluid bowel rest. She is showing gradual signs of improvement, but bowel function has not fully normalized. Reports episode of diarrhea today and increasing left-sided abdominal pain -- Will continue close observation today. If she fails to make further progress or worsens, then low threshold to reimage (CT abd) -- Will continue diet as tolerated. 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 Usually managed medically but in May admitted to [facility] with sbo but failed conservative treatment, transferred from [facility] to [facility].CT with partial SBO with multifocal stricturing , and foci concerning for carcinomatosis At [facility] Underwent diagnostic laparoscopy, no visual evidence cancer.per opnote There was. 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 Surgeon did not intervene at all as patient not completely obstructed, would need a major laparotomy with significant risk if proceeded, adhesions vascularized significantly cirrhotic liver. (Ascites sent for path, no cancer) Presented to [facility] ED 08/13 with several days of abdominal pain. Also reported vomiting CT showed small bowel obstruction with transition point involving distal small bowel loops in the pelvis, cirrhotic liver with small volume ascites [facility] surgeon contacted, said patient could transfer but pt declined. Patient seen by [facility] surgeon. Admitted w/ conservative treatment -n.p.o. IV fluid bowel rest. She is showing gradual signs of improvement. Passing small amounts of stool and flatus. 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 Usually managed medically but in May admitted to [facility] with sbo but failed conservative treatment, transferred from [facility] to [facility]CT with partial SBO with multifocal stricturing , and foci concerning for carcinomatosis At [facility] Underwent diagnostic laparoscopy, no visual evidence cancer.per opnote There was. 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 Surgeon did not intervene at all as patient not completely obstructed, would need a major laparotomy with significant risk if proceeded, adhesions vascularized significantly cirrhotic liver. (Ascites sent for path, no cancer) Presented to [facility] ED 08/13 with several days of abdominal pain. Also reported vomiting CT showed small bowel obstruction with transition point involving distal small bowel loops in the pelvis, cirrhotic liver with small volume ascites [facility] surgeon contacted, said patient could transfer but pt declined. Patient seen by [facility] surgeon. Admitted w/ conservative treatment -n.p.o. IV fluid bowel rest. She has shown signs of improvement, advancing diet and passing small amounts of stool in a.m. 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 Usually managed medically but in May admitted to [facility] with sbo but failed conservative treatment, transferred from [facility] to [facility]CT with partial SBO with multifocal stricturing , and foci concerning for carcinomatosis At [facility] Underwent diagnostic laparoscopy, no visual evidence cancer.per opnote There was. 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 Surgeon did not intervene at all as patient not completely obstructed, would need a major laparotomy with significant risk if proceeded, adhesions vascularized significantly cirrhotic liver. (Ascites sent for path, no cancer) Presented to [facility] ED 6 with several days of abdominal pain. Also reported vomiting CT showed small bowel obstruction with transition point involving distal small bowel loops in the pelvis, cirrhotic liver with small volume ascites [facility] surgeon contacted, said patient could transfer but pt declined. Patient seen by [facility] surgeon. Admitted w/ conservative treatment -n.p.o. IV fluid bowel rest. Patient seems to have improved some. has bowel sounds has had stool flatus has no vomiting, still has some nausea, lower abdominal pain still using IV Dilaudid for painTolerating clears Continue small meals, will continue IVF tonight. 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 Usually managed medically but in May admitted to [facility] with sbo but failed conservative treatment, transferred from [facility] to [facility]CT with partial SBO with multifocal stricturing , and foci concerning for carcinomatosis At [facility] Underwent diagnostic laparoscopy, no visual evidence cancer.per opnote There was. 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 Surgeon did not intervene at all as patient not completely obstructed, would need a major laparotomy with significant risk if proceeded, adhesions vascularized significantly cirrhotic liver. (Ascites sent for path, no cancer) Presented to [facility] ED 08/13 with several days of abdominal pain. Also reported vomiting CT showed small bowel obstruction with transition point involving distal small bowel loops in the pelvis, cirrhotic liver with small volume ascites [facility] surgeon contacted, said patient could transfer but pt declined. Patient seen by [facility] surgeon. Admitted w/ conservative treatment -n.p.o. IV fluid bowel rest. Patient seems to have improved some. 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 Usually managed medically but in May admitted to [facility] with sbo but failed conservative treatment, transferred from [facility] to [facility]CT with partial SBO with multifocal stricturing , and foci concerning for carcinomatosis At [facility] Underwent diagnostic laparoscopy, no visual evidence cancer.per opnote There was. 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 Surgeon did not intervene at all as patient not completely obstructed, would need a major laparotomy with significant risk if proceeded, adhesions vascularized significantly cirrhotic liver. (Ascites sent for path, no cancer) Presented to [facility] ED 6/5 with several days of abdominal pain. Also reported vomiting CT showed small bowel obstruction with transition point involving distal small bowel loops in the pelvis, cirrhotic liver with small volume ascites [facility] surgeon contacted, said patient could transfer but pt declined. Patient seen by [facility] surgeon. Admitted w/ conservative treatment -n.p.o. IV fluid bowel rest. Patient seems to have improved some. 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 Usually managed medically but in May admitted to [facility] with sbo but failed conservative treatment, transferred from [facility] to [facility]CT with partial SBO with multifocal stricturing , foci concerning for carcinomatosis At [facility] Underwent diagnostic laparoscopy, no cancer.. 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 Surgeon did not intervene at all.. At that time also had cystoscopy and placement of ureteral stents. Since removed Presented to [facility] ED 6/5 with several days of abdominal pain. Also reported vomiting CT showed small bowel obstruction with transition point involving distal small bowel loops in the pelvis, cirrhotic liver with small volume ascites [facility] surgeon contacted, said patient could transfer but pt declined. Patient seen by [facility] surgeon. Admitted w/ conservative treatment -n.p.o. IV fluid bowel rest. Patient seems improved today. has many bowel sounds has had stool flatus has no nausea vomiting minimal pain.. Diet changes per surgery, started on clears today Cont suppos, colace Assessment & Plan (08/14/2024 1:56 PM EDT): Complicated past medical history with colorectal cancer status post resection radiation therapy radiation proctitis and history of multiple bowel obstructions about 1-2 times per year for 30 years. Usually managed medically but in May failed conservative treatment, transferred from [facility] to [facility]. CT with partial SBO with multifocal stricturing , foci concerning for carcinomatosis Underwent diagnostic laparoscopy, no cancer.. 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 Surgeon did not intervene at all.. At that time also had cystoscopy and placement of ureteral stents. Presented to [facility] ED 08/13 with several days of abdominal pain. Also reported vomiting CT showed small bowel obstruction with transition point involving distal small bowel loops in the pelvis, cirrhotic liver with small volume ascites [facility] surgeon contacted, felt patient could transfer but pt declined. Patient seen by [facility] surgeon. Admitted. Plan for conservative treatment n.p.o. IV fluid bowel rest. Patient seems improved today. Diet changes per surgery (When were r stents removed?) Assessment & Plan (08/13/2024 11:18 PM EDT): This is a 74-year-old female with an extensive history of cirrhosis, colon cancer status post radiation and numerous SBO's who recently underwent diagnostic laparoscopy and cystoscopy placement with ureteral stent at [facility] in May for recurrent small bowel obstruction. That operation was aborted due to significant multi quadrant adhesive disease and evidence of radiation related changes diffusely with cirrhotic appearing liver and ascites putting her at major risk if a laparotomy was performed. Fortunately tonight patient reports passing flatus. Her abdominal exam continues to demonstrate significant distention but she reports that her pain has improved. No nausea or or vomiting therefore will hold on NG tube placement. Hopefully her SBO will spontaneously resolve, however if she develops further pain or clinically decompensates she understands that she would need to be transferred to a tertiary care center. General surgery will continue to follow. Assessment & Plan (08/13/2024 3:04 PM EDT): 10 days of abdominal pain. Vomiting at the time of arrival in triage, bilious emesis Her last bowel movement was yesterday has not passed any gas or a bowel movement since then. Complicated past medical history with colorectal cancer status post resection radiation therapy radiation proctitis and history of multiple bowel obstructions about 1-2 times per year for 30 years. Usually managed medically but in May failed conservative treatment with CT showing partial SBO with multifocal stricturing. Underwent diagnostic laparoscopy cystoscopy and placement of ureteral stents. Findings were significant multi quadrant adhesive disease evidence of radiation related changes diffusely involving serosa small bowel omentum peritoneum and bladder On admission vital signs and labs are stable, mild hyponatremia CT shows small bowel obstruction with transition point involving distal small bowel loops in the pelvis, cirrhotic liver with small volume ascites B was called by the emergency room physician, still awaiting formal information regarding recommendations, patient states that they felt she could stay at [facility] Plan Bowel rest Surgical consult initiated in the emergency department IV fluid Follow labs vital signs and serial exams Antiemetics analgesics [id number] surgeon felt patient could transfer but she declined. She would transfer if her clinical condition worsen or she were to need surgery. My attending physician called surgeon on-call to consult., Dr Giraldo Assessment & Plan (05/12/2024 4:01 PM EST): Recurrent SBO, hx abd surgery and abd radiation therapy Presented on 04/28 with nausea [address] vomiting. CT abdomen pelvis revealed SBO with transition point in the lower pelvis. Initially n.p.o. with IV fluids. She was moving bowels and passing flatus, diet was advanced slowly to low-fiber on 05/02. However developed more bloating and discomfort following initiation of solids, so diet changed back to clears 05/03. Moving bowels and passing flatus again, so diet was again slowly advanced to full liquids on 05/07. On 05/08 she had toast and again on 05/10 overnight and developed worsening abd pain and bloating. Trial of gastrografin 05/11, however worsening abd pain and vomiting. NGT placed 05/12 morning. Patient is now NPO with NGT. Artificial nutrition: PPN 05/02-, resumed on 05/12. TPN to start Failing medical management. Recommended for transfer for surgical management. Call out to [facility] transfer line, requesting facility with SICU. - NGT to suction - planing gastrografin trial this afternoon per general surgery - She is ordered for glycerin suppositories daily - Continue efforts to ambulate Assessment & Plan (05/11/2024 8:30 PM EST): Recurrent SBO, hx abd surgery and abd radiation therapy CT abdomen pelvis revealed SBO with transition point in the lower pelvis. Initially n.p.o. with IV fluids started on clears at end of week, next day transitioned to full liquid ---->low fiber as having some stools and feeling improvement with less pain Developed more bloating and discomfort following low fiber diet so diet changed back to clears. Started on PPN 05/02. PPN stopped 05/08 She is slowly advancing diet. P.o. intake still limited due to intermittent symptoms of abdominal pain, bloating and burping. Last BM was yesterday 05/09 -- pulling back on diet today due to increased symptoms. - planing gastrografin trial this afternoon per general surgery -- She is ordered for glycerin suppositories daily -- Continue efforts to ambulate Assessment & Plan (05/10/2024 3:06 PM EST): Recurrent SBO, hx abd surgery and abd radiation therapy CT abdomen pelvis revealed SBO with transition point in the lower pelvis. Initially n.p.o. with IV fluids started on clears at end of week, next day transitioned to full liquid ---->low fiber as having some stools and feeling improvement with less pain Developed more bloating and discomfort following low fiber diet so diet changed back to clears. Started on PPN 05/02. PPN stopped 05/08 She is slowly advancing diet. P.o. intake still limited due to intermittent symptoms of abdominal pain, bloating and burping. Last BM was yesterday 05/09 -- Continue efforts to advance diet. Monitoring intake and supplements have been ordered -- She is ordered for glycerin suppositories twice daily. Will decrease to daily -- Continue efforts to ambulate Addendum: Spoke with Dr Steven. Will give Gastrografin 60 cc x 1 (give slowly 30 cc q 15-30 min) Assessment & Plan (05/09/2024 10:35 AM EST): Recurrent SBO, hx abd surgery and abd radiation therapy CT abdomen pelvis revealed SBO with transition point in the lower pelvis. Initially n.p.o. with IV fluids started on clears at end of week, next day transitioned to full liquid ---->low fiber as having some stools and feeling improvement with less pain Developed more bloating and discomfort following low fiber diet so diet changed back to clears. Started on PPN 2/22. PPN stopped 05/08 -- Continue efforts to advance diet --Nutrition following and nutritional intake being monitored. Continue supplements --Ambulation encouraged Assessment & Plan (05/08/2024 6:41 PM EST): Recurrent SBO, hx abd surgery and abd radiation therapy CT abdomen pelvis revealed SBO with transition point in the lower pelvis. Initially n.p.o. with IV fluids started on clears at end of week, next day transitioned to full liquid ---->low fiber as having some stools and feeling improvement with less pain Developed more bloating and discomfort following low fiber diet so diet changed back to clears. Started on PPN 05/02. Getting PPN at this time, 90% of nutrition needs. PPN to stop per nutrition. If additional artificial nutrition is needed, consider TPN. Diet advanced to full liquids, seems to be tolerating well. Per surgeon, can advance diet as tolerated. Assessment & Plan (05/07/2024 4:54 PM EST): Recurrent SBO, hx abd surgery and abd radiation therapy CT abdomen pelvis revealed SBO with transition point in the lower pelvis. Initially n.p.o. with IV fluids started on clears at end of week, next day transitioned to full liquid ---->low fiber as having some stools and feeling improvement with less pain Developed more bloating and discomfort following low fiber diet so diet changed back to clears. Started on PPN 05/02. Getting PPN at this time, 90% of nutrition needs Continue additional 1L IVF today with potassium Diet advanced to full liquids, seems to be tolerating well Assessment & Plan (05/06/2024 10:20 AM EST): Recurrent SBO, hx abd surgery and abd radiation therapy CT abdomen pelvis revealed SBO with transition point in the lower pelvis. Initially n.p.o. with IV fluids started on clears at end of week, next day transitioned to full liquid ---->low fiber as having some stools and feeling improvement with less pain Developed more bloating and discomfort following low fiber diet so diet changed back to clears. Started on PPN 05/02. Getting PPN at this time, 90% of nutrition needs Continue additional IVF today Diet advanced to CLD today Assessment & Plan (05/05/2024 4:47 PM EST): Recurrent SBO, hx abd surgery and abd radiation therapy CT abdomen pelvis revealed SBO with transition point in the lower pelvis. Initially n.p.o. with IV fluids started on clears at end of week, next day transitioned to full liquid ---->low fiber as having some stools and feeling improvement with less pain Developed more bloating and discomfort following low fiber diet so diet changed back to clears. Started on PPN Even more uncomfortable this morning. Diet changed to NPO. Continue PPN, dietitian says ideally should only have 5 days of PPN if needs more than 5 days should transition to TPN. Getting fluid needs in PPN at this time, 90% of nutrition needs Assessment & Plan (05/04/2024 1:00 PM EST): Recurrent SBO, hx abd surgery and abd radiation therapy CT abdomen pelvis revealed SBO with transition point in the lower pelvis. Initially n.p.o. with IV fluids started on clears at end of week, next day transitioned to full liquid ---->low fiber as having some stools and feeling improvement with less pain Developed more bloating and discomfort following low fiber diet so diet changed back to clears. Started on PPN Even more uncomfortable this morning. Diet changed to NPO. Continue PPN, dietitian says ideally should only have 5 days of PPN if needs more than 5 days should transition to TPN. Getting fluid needs in PPN at this time, 90% of nutrition needs Assessment & Plan (05/03/2024 3:29 PM EST): Recurrent SBO hx abd surgery and radiation therapy CT abdomen pelvis revealed SBO with transition point in the lower pelvis. Initially n.p.o. with IV fluids started on clears at end of week Started on full liquid yesterday by surgery and transitioned to low fiber, also started PPN More bloating and discomfort following fiber diet so surgery reduced diet back to clears. Continue PPN Assessment & Plan (05/03/2024 12:42 PM EST): Recurrent SBO hx abd surgery and radiation therapy CT abdomen pelvis revealed SBO with transition point in the lower pelvis. Initially n.p.o. with IV fluids started on clears at end of week Started on full liquid yesterday by surgery and transitioned to low fiber, also started PPN Spoke with dietitian about nutritional status. Recommended PPN 1 more day, Assessment & Plan (05/02/2024 1:13 PM EST): Recurrent SBO secondary to extensive intra-abdominal surgical history and radiation therapy CT abdomen pelvis revealed SBO with transition point in the lower pelvis. Still having pain but has a few more bowel sounds than initially Continue conservative treatment continue n.p.o. except sips warm liquids IV fluid, GI suggested clears but surgery recommended going very slowly with introduction of orals so only sips of warm liquids ordered Spoke with dietitian about nutritional status. Recommended PPN, started today Assessment & Plan (05/01/2024 1:28 PM EST): Recurrent SBO secondary to extensive intra-abdominal surgical history and radiation therapy CT abdomen pelvis revealed SBO with transition point in the lower pelvis. Still having pain but has a few more bowel sounds today Continue conservative treatment continue n.p.o. except sips warm liquids IV fluid, GI suggested clears but surgery recommended going very slowly with introduction of orals so only sips of warm liquids ordered Spoke with dietitian about nutritional status. Assessment & Plan (04/30/2024 2:26 PM EST): Recurrent SBO secondary to extensive intra-abdominal surgical history and radiation therapy CT abdomen pelvis revealed SBO with transition point in the lower pelvis. Having cramps this morning and nausea. Plan conservative treatment continue n.p.o. except ice IV fluid Assessment & Plan (04/29/2024 10:36 AM EST): Likely secondary to extensive intra-abdominal surgical history and radiation therapy likely leading to lysis and increased risk of recurrent SBO. Recurrent SBO episode at this time. CT abdomen pelvis revealed SBO with transition point in the lower pelvis. 04/29: Patient passed gas overnight, IV with bowel movement. Unfortunately did not appear to be on IV fluids overnight. No nausea or vomiting currently. Abdominal pain graded 7 out of 10 in intensity, improved from yesterday. She feels she is slowly improving. We discussed mobilization, she will try to do this today. She agreed to glycerin suppository to help promote BM. -Surgery consulted appreciated -N.p.o. except medications No indication for NG tube at this time -IVF hydration with LR 100 cc an hour -Mobilization every shift -Goal magnesium greater than 2, potassium greater than 4 -Daily glycerin suppository -Follow-up TSH Assessment & Plan (04/28/2024 6:47 PM EST): -Likely secondary to extensive intra-abdominal surgical history and radiation therapy likely leading to lysis and increased risk of recurrent SBO. Recurrent SBO episode at this time -CT abdomen pelvis revealed SBO with transition point in the lower pelvis. -No further episodes of vomiting at this time Plan: Surgery consulted appreciated N.p.o. except medications IVF hydration with LR 100 cc an hour Continue clinical monitoring No indication for NG tube placement at this time. Arthritis 02/23/2024 Assessment & Plan (08/22/2024 11:53 AM EDT): Sees a open hearth melter regularly. Has an appointment scheduled soon Assessment & Plan (08/21/2024 9:17 AM EDT): Sees a open hearth melter regularly. Has an appointment scheduled soon Assessment & Plan (08/20/2024 1:01 PM EDT): Sees a open hearth melter regularly. Has an appointment scheduled soon Assessment & Plan (08/19/2024 4:10 PM EDT): Sees a open hearth melter regularly. Has an appointment scheduled soon Assessment & Plan (08/18/2024 3:17 PM EDT): Sees a open hearth melter regularly. Has an appointment scheduled soon Assessment & Plan (08/17/2024 3:45 PM EDT): Sees a open hearth melter regularly. Has an appointment scheduled soon Assessment & Plan (08/16/2024 12:50 PM EDT): Sees a open hearth melter regularly. Has an appointment scheduled soon Assessment & Plan (02/28/2024 6:57 PM EST): Unclear subtype, pt says OA Plaquinil was recently sent to her pharmacy 02/14 but she notes she doesn't take it and [facility] 2023. Assessment & Plan (02/27/2024 6:24 PM EST): Unclear subtype, pt says OA Plaquinil was recently sent to her pharmacy 02/14 but she notes she doesn't take it and [facility] 2023. Assessment & Plan (02/26/2024 10:40 PM EST): Unclear subtype, pt says OA Plaquinil was recently sent to her pharmacy 02/14 but she notes she doesn't take it and [facility] time [facility] oct 2023. Assessment & Plan (02/25/2024 3:34 PM EST): Unclear subtype, pt says OA Plaquinil was recently sent to her pharmacy 02/14 but she notes she doesn't take it and [facility] 2023. Assessment & Plan (02/24/2024 2:17 PM EST): Unclear subtype, pt says OA Plaquinil was recently sent to her pharmacy 02/14 but she notes she doesn't take it and [facility] time [facility] 2023. 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 pts follows with rheum Plaquinil was recently sent to her pharmacy 02/14 but she notes she doesn't take it and [facility] 2023. Also notes has not had eyes checked in years Will not order for now. ? If sent to pharmacy after last hospital admission as was on her list. Hyponatremia 02/22/2024 Assessment & Plan (08/22/2024 11:53 AM EDT): Initial sodium was 131, likely due to dehydration. Sodium now 136 Assessment & Plan (08/21/2024 9:17 AM EDT): Initial sodium was 131, likely due to dehydration. Sodium now 136 Assessment & Plan (08/20/2024 1:01 PM EDT): Initial sodium was 131, likely due to dehydration. Sodium now 136 Assessment & Plan (08/19/2024 4:10 PM EDT): Initial sodium was 131, likely due to dehydration. Sodium now 136 Assessment & Plan (08/18/2024 3:17 PM EDT): Likely due to dehydration. Sodium level first changed by about 8 millequivalents in 24 hours, acceptable. Continue maintenance fluid until taking p.o. well. Following sodium- stable Assessment & Plan (08/17/2024 3:45 PM EDT): Likely due to dehydration. Sodium level first changed by about 8 millequivalents in 24 hours, acceptable. Continue maintenance fluid until taking p.o. well. Following sodium- stable Assessment & Plan (08/16/2024 12:50 PM EDT): Likely due to dehydration. Sodium level first changed by about 8 millequivalents in 24 hours, acceptable. Continue maintenance fluid until taking p.o. well. Following sodium- stable Assessment & Plan (08/15/2024 12:45 PM EDT): Likely due to dehydration. Sodium level first changed by about 8 millequivalents in 24 hours, acceptable. Continue maintenance fluid until taking p.o. well. Following sodium- stable Assessment & Plan (08/14/2024 1:52 PM EDT): Likely due to dehydration. Similar level changed by about 8 millequivalents in 24 hours. Recheck this afternoon. Continue maintenance fluid Assessment & Plan (08/13/2024 11:41 AM EDT): Mild, may be secondary to nausea and vomiting. Will hydrate and follow BMP later this evening to avoid rapid overcorrection Assessment & Plan (02/23/2024 2:10 PM EST): Resolved. Assessment & Plan (02/22/2024 10:03 PM EST): Mild hyponatremia sodium 130, continue monitoring repeat BMP in the a.m. Anxiety 10/01/2023 Assessment & Plan (02/28/2024 6:57 PM EST): Continue lorazepam Assessment & Plan (02/27/2024 6:24 PM EST): Continue lorazepam Assessment & Plan (02/26/2024 10:40 PM EST): Continue lorazepam Assessment & Plan (02/25/2024 3:34 PM EST): Continue lorazepam Assessment & Plan (02/24/2024 2:17 PM EST): Continue lorazepam Assessment & Plan (02/23/2024 3:19 PM EST): Continue lorazepam Assessment & Plan (02/22/2024 10:03 PM EST): Continue lorazepam GERD (gastroesophageal reflux disease) 9 Assessment & Plan (08/22/2024 11:53 AM EDT): Cont ppi sucralfate Assessment & Plan (08/21/2024 9:17 AM EDT): Cont ppi sucralfate Assessment & Plan (08/20/2024 1:01 PM EDT): Cont ppi sucralfate Assessment & Plan (08/19/2024 4:10 PM EDT): Cont ppi sucralfate Assessment & Plan (08/18/2024 3:17 PM EDT): Cont ppi sucralfate Assessment & Plan (08/17/2024 3:45 PM EDT): Cont ppi sucralfate Assessment & Plan (08/16/2024 12:50 PM EDT): Cont ppi sucralfate Assessment & Plan (08/15/2024 12:45 PM EDT): Cont ppi sucralfate Assessment & Plan (02/28/2024 6:57 PM EST): Continue pantoprazole 40 mg twice daily, added sucralfate. Patient complains of some epigastric discomfort. She did have gastritis on her EGD done at [facility] recently. She says the epigastric discomfort is not new Assessment & Plan (02/27/2024 6:24 PM EST): Continue pantoprazole 40 mg twice daily, added sucralfate. Patient complains of some epigastric discomfort. She did have gastritis on her EGD done at [facility] recently. She says the epigastric discomfort is not new Assessment & Plan (02/26/2024 10:40 PM EST): Continue pantoprazole 40 mg twice daily, added sucralfate. Patient complains of some epigastric discomfort. She did have gastritis on her EGD done at [facility] recently. She says the epigastric discomfort is not new Assessment & Plan (02/25/2024 3:29 PM EST): Continue pantoprazole 40 mg twice daily, added sucralfate. Patient complains of some epigastric discomfort. She did have gastritis on her EGD done at [facility] recently. She says the epigastric discomfort is not new She did have some nausea vomiting this morning and requested not to be discharged Assessment & Plan (02/24/2024 2:17 PM EST): Continue pantoprazole 40 mg twice daily, add sucralfate Assessment & Plan (02/23/2024 3:19 PM EST): Continue pantoprazole 40 mg twice daily Assessment & Plan (02/22/2024 10:03 PM EST): Continue pantoprazole 40 mg twice daily Malignant neoplasm of rectum 05/31/2014 Overview (02/15/2015): Malignant tumor of rectum Interstitial lung disease Overview (08/13/2024): controlled with inhalers Assessment & Plan (08/22/2024 11:53 AM EDT): No acute issues Advair substituted for Jer alston Was started on prednisone 08/17. I am unclear if this was for a pulmonary reason. Breathing appears stable. Will hold Assessment & Plan (08/21/2024 9:17 AM EDT): No acute issues Advair substituted for Jer alston Assessment & Plan (08/20/2024 1:01 PM EDT): No acute issues Advair substituted for Jer alston Assessment & Plan (08/19/2024 4:10 PM EDT): No acute issues Advair substituted for Jer alston Assessment & Plan (08/18/2024 3:17 PM EDT): No acute issues Advair substituted for Jer alston Assessment & Plan (08/17/2024 3:45 PM EDT): No acute issues Advair substituted for Jer alston Assessment & Plan (08/16/2024 1:00 PM EDT): No acute issues Advair substituted for Jer alston Assessment & Plan (08/15/2024 12:45 PM EDT): No acute issues Advair substituted for Jer alston Assessment & Plan (08/14/2024 1:52 PM EDT): Usually maintained on inhalers for this, denies exacerbation of symptoms Assessment & Plan (08/13/2024 11:41 AM EDT): Usually maintained on inhalers for this, denies exacerbation of symptoms Encounters Date Type Department Care Team Description 08/13/2024 6:46 AM EDT - 08/23/2024 4:32 PM EDT Hospital Encounter [facility] [id number] [address] [place] [address] Sergey Alejo MD Miskovsky, Glenn E, MD Preston, MD Tennille Saunders Eli, MD Green, Ruthie Heredia MD Discharge Disposition: Home or Self Care 08/13/2024 Procedure [facility], [facility] Scan [address] [address] 07/30/2024 11:27 AM EDT - 07/30/2024 4:38 PM EDT Emergency [facility] Emergency [address] [place] [id number] Discharge Disposition: Home or Self Care 07/30/2024 Telephone [facility] Emergency [address] [place] [id number] Yoon Shelley PA-C 07/30/2024 Procedure [facility], [address] [address] from Last 3 Months Social History Tobacco Use Types Packs/Day Years Used Date Smoking Tobacco: Never Smokeless Tobacco: Never Tobacco Cessation:Counseling Given: Not Answered Alcohol Use Standard Drinks/Week Comments Not Currently 0 (1 standard drink = 0.6 oz pur e alcohol) Education Answer Date Recorded Are you interested in more education? Not on vazquez e 07/05/2022 Are you concerned about learning? Not on file 07/05/2022 No 07/05/2022 No 07/05/2022 Food Answer Date Recorded Within the past 6 months we worried whether our food would run out before we got money to buy more. Never True 08/13/2024 Within the past 6 months the food we bought just didn't last and we didn't have enough money to get more. Never True Residential Stability Answer Date Recor ded What is your housing situation today? I have jozef sing 08/13/2024 How many times have you move d in the past 12 months? Zero (I did not move) 08/13/2024 Paying for Meds Answer Date Recorded Do you have trouble paying for medicines? No 08/13/2024 Paying Utility Bills Answer Date Record ed Do you have trouble paying your heating or elect ricity bill? Yes 08/13/2024 Transportation Answer Date Recorded Has the lack of transportati on kept you from medical appointments or from getting medications? No 08/13/2024 Digital Access Answer Date Recorded No 08/13/2024 Yes 08/13/2024 Do you have reliable internet access at home? Ye s 08/13/2024 Do you have a device (e.g., phone, tablet, computer) with a working camera? Yes 08/13/2024 Intimate Partner Violence Answer Date R ecorded Are you denied basic needs s uch as food, clothing, or medical care? No 08/13/2024 In the past 12 months have y ou been in a relationship with a person who hurts, threatens, or tries to control you? No 08/13/2024 Are you denied basic needs s uch as food, clothing, or medical care? No 08/13/2024 In the past 12 months have y ou been in a relationship with a person who hurts, threatens, or tries to control you? No 08/13/2024 Comments No Sex and Gender Information Value Date Recorded Sex Assigned at Female 04/28/2024 1:10 PM EST Legal Sex Female 7:55 PM EST Gender Identity Female 04/28/2024 1:10 PM EST Sexual Orientation Not on file Last Filed Vital Signs Vital Sign Reading Time Taken Comments Blood Pressure 148/70 08/23/2024 4:19 PM EDT Pulse 89 08/23/2024 4:19 PM EDT Temperature 36.2 C (97.2 F) 08/23/2024 4:19 PM EDT Respiratory Rate 22 08/23/2024 4:19 PM EDT Oxygen Saturation 96% 08/23/2024 4:19 PM EDT Inhaled Oxygen Concentration - - Weight 67.1 kg (148 lb) 08/22/2024 6:18 AM EDT Height 157.5 cm (5' 2 ) 08/13/2024 9:16 AM EDT Body Mass Index 27.07 08/13/2024 9:16 AM EDT Plan of Treatment Health Maintenance Due Date Last Done Comments Adult Td,Tdap Booster 1948 LIPID PANEL 1948 DEPRESSION SCREENING 1960 HEPATITIS C SCREENING 1966 HEPATITIS A VACCINES (1 of 2 - Risk 2-dose series) 1967 PNEUMOCOCCAL VACCINES (50+ y ears) (1 of 2 - PCV) 1967 ZOSTER VACCINES (1 of 2) 1967 OSTEOPOROSIS SCREENING INITI AL (ONE-TIME) 2013 RSV VACCINE (1 - 1-dose 75+ series) 2023 COVID-19 VACCINE ( - 2023-2 5 season) 2023 SMOKING STATUS SCREENING (On ce After 26 Yrs) Completed 04/17/2024 HIB VACCINES Aged Out No longer eligi ble based on patient's age to complete this topic MENINGOCOCCAL VACCINES (ACWY) Aged Out No longer eligible based on patient's age to complete this topic MENINGOCOCCAL VACCINES (B) Aged Out N o longer eligible based on patient's age to complete this topic Medical Devices Not on file Procedures Procedure Name Priority Date/Time Associated Diagnosis Comments BASIC METABOLIC PANEL Routine 08/22/2024 6:25 AM EDT CBC AND DIFFERENTIAL Routine 08/22/2024 6:25 AM EDT POCT GLUCOSE Routine 08/20/2024 11:50 AM EDT PHOSPHORUS Routine 08/19/2024 5:24 AM EDT MAGNESIUM Routine 08/19/2024 5:24 AM EDT BASIC METABOLIC PANEL Routine 08/19/2024 5:24 AM EDT CBC Routine 08/19/2024 5:24 AM EDT MAGNESIUM Routine 08/18/2024 5:47 AM EDT BASIC METABOLIC PANEL Routine 08/18/2024 5:47 AM EDT BASIC METABOLIC PANEL Routine 08/17/2024 5:15 AM EDT BASIC METABOLIC PANEL Routine 08/16/2024 6:55 AM EDT HEMOGLOBIN Routine 08/15/2024 5:42 AM EDT BASIC METABOLIC PANEL Routine 08/15/2024 5:42 AM EDT MRSA PCR SCREEN Routine 08/14/2024 5:30 AM EDT PHOSPHORUS Routine 08/14/2024 5:12 AM EDT MAGNESIUM Routine 08/14/2024 5:12 AM EDT COMPREHENSIVE METABOLIC PANEL Routine 08/14/2024 5:12 AM EDT CBC AND DIFFERENTIAL Routine 08/14/2024 5:12 AM EDT BASIC METABOLIC PANEL Timed 08/13/2024 7:53 PM EDT URINE SEDIMENT STAT 08/13/2024 9:02 AM EDT URINALYSIS W/REFLEX URINE CULTURE STAT 08/13/2024 9:[address] ABDOMEN/PELVIS WITHOUT CONTRAST Routine 08/13/2024 8:02 AM EDT MAGNESIUM STAT 08/13/2024 7:14 AM EDT LACTIC ACID (LACTATE) STAT 08/13/2024 7:14 AM EDT LFTS (HEPATIC PANEL) STAT 08/13/2024 7:14 AM EDT BASIC METABOLIC PANEL STAT 08/13/2024 7:14 AM EDT CBC AND DIFFERENTIAL STAT 08/13/2024 7:14 AM EDT XR CHEST PA AND LATERAL 2 VIEWS Routine 07/30/2024 1:[address] ABDOMEN/PELVIS WITH CONTRAST Routine 07/30/2024 1:08 PM EDT URINE SEDIMENT STAT 07/30/2024 11:41 AM EDT URINALYSIS W/REFLEX URINE CULTURE STAT 07/30/2024 11:41 AM EDT LIPASE STAT 07/30/2024 11:34 AM EDT LFTS (HEPATIC PANEL) STAT 07/30/2024 11:34 AM EDT BASIC METABOLIC PANEL STAT 07/30/2024 11:34 AM EDT CBC AND DIFFERENTIAL STAT 07/30/2024 11:34 AM EDT ECG 12-LEAD STAT 07/30/2024 11:25 AM EDT from Last 3 Months Results * (ABNORMAL) CBC and differential (08/22/2024 6:25 AM EDT) Only the most recent of4 resultswithin the time period is included. WBC 7.61 4.00 - 11.00 K/uL [facility] RBC 3.01(L) 4.00 - 5.20 M/uL [facility] HGB 9.7(L) 12.0 - 16.0 g/dL [facility] HCT 30.5(L) 36.0 - 46.0 % [facility] PLT 203 150 - 450 K/uL [facility] MCV 101.3(H) 80.0 - 100.0 fL [facility] MCH 32.2(H) 27.0 - 31.0 pg [facility] MCHC 31.8(L) 32.0 - 36.0 g/dL [facility] RDW 15.5(H) 11.5 - 14.5 % [facility] MPV 8.9 8.4 - 12.0 fL [facility] NRBC 0.00 0.00 /100 WBCs [facility] ABSOLUTE NRBC 0.00 0.00 K/uL [facility] DIFF METHOD Auto [facility] NEUTS 70.1 48.0 - 76.0 % [facility] LYMPHS 18.8 18.0 - 41.0 % [facility] MONOS 7.5 4.0 - 11.0 % [facility] EOS 2.8 0.0 - 5.0 % [facility] BASOS 0.3 0.0 - 1.5 % [facility] Granulocytes, immature (%) 0.5 0.0 - 0.9 % [facility] ABSOLUTE NEUTS 5.34 1.92 - 7.60 K/uL [facility] ABSOLUTE LYMPHS 1.43 0.72 - 4.10 K/uL [facility] ABSOLUTE MONOS 0.57 0.16 - 1.10 K/uL [facility] ABSOLUTE EOS 0.21 0.00 - 0.50 K/uL [facility] ABSOLUTE BASOS 0.02 0.00 - 0.15 K/uL [facility] Granulocytes, immature 0.04 0.00 - 0.09 K/uL [facility] Blood 08/22/2024 6:25 AM EDT 08/22/2024 6:28 AM EDT us Ruthie Ernst MD LAB BLOOD ORDERABLES Final Resu lt [facility] [address] [place] [address] * Basic metabolic panel (08/22/2024 6:25 AM EDT) Only the most recent of9 resultswithin the time period is included. SODIUM 136 133 - 146 mmol/L [facility] CHLORIDE 100 96 - 108 mmol/L [facility] POTASSIUM 3.6 3.3 - 5.1 mmol/L [facility] CO2 30 21 - 35 mmol/L [facility] BUN 11 6 - 19 mg/dL [facility] CREATININE 0.60 0.5 - 1.5 mg/dL [facility] GLUCOSE 96 70 - 99 mg/dL [facility] CALCIUM 8.8 8.4 - 10.3 mg/dL [facility] EGFR 93 >59 mL/min/1.7 3m2 [facility] Comment:Estimated glomerular filtration rate calculated using the CKD-EPI refit equation. ANION GAP 10 10 - 20 mmol/L [facility] Blood 08/22/2024 6:25 AM EDT 08/22/2024 6:28 AM EDT us Ruthie Ernst MD LAB BLOOD ORDERABLES Final Resu lt [address] [address] [address] * (ABNORMAL) POCT Glucose (08/20/2024 11:50 AM EDT) Glucose, POCT 105(H) 70 - 100 mg/dL [facility] 08/20/2024 11:5 0 AM EDT 08/20/2024 11:52 AM EDT us Ruthie Ernst MD POINT OF CARE TEST ORDERABLES F inal Result Performing Organization Address City/[facility]/ZIP Co de Phone Number [address] [address] * (ABNORMAL) CBC (08/19/2024 5:24 AM EDT) WBC 5.12 4.00 - 11.00 K/uL [facility] RBC 2.91(L) 4.00 - 5.20 M/uL [facility] HGB 9.3(L) 12.0 - 16.0 g/dL [facility] HCT 30.0(L) 36.0 - 46.0 % [facility] PLT 130(L) 150 - 450 K/uL [facility] MCV 103.1(H) 80.0 - 100.0 fL [facility] MCH 32.0(H) 27.0 - 31.0 pg [facility] MCHC 31.0(L) 32.0 - 36.0 g/dL [facility] RDW 14.9(H) 11.5 - 14.5 % [facility] MPV 9.6 8.4 - 12.0 fL [facility] NRBC 0.00 0.00 /100 WBCs [facility] ABSOLUTE NRBC 0.00 0.00 K/uL [facility] Blood 08/19/2024 5:24 AM EDT 08/19/2024 6:11 AM EDT Ida Null MD LAB BLOOD ORDERABLES Final Result [address] [address] * (ABNORMAL) Phosphorus (08/19/2024 5:24 AM EDT) Only the most recent of2 resultswithin the time period is included. PHOSPHORUS 2.2(L) 2.7 - 4.5 mg/dL [facility] Blood 08/19/2024 5:24 AM EDT 08/19/2024 6:11 AM EDT Ida Null MD LAB BLOOD ORDERABLES Final Result [address] [address] * Magnesium (08/19/2024 5:24 AM EDT) Only the most recent of4 resultswithin the time period is included. MAGNESIUM 1.6 1.6 - 2.6 mg/dL [facility] Blood 08/19/2024 5:24 AM EDT 08/19/2024 6:11 AM EDT Ida Null MD LAB BLOOD ORDERABLES Final Result Performing Organization Address [facility]/ZIP Co de Phone Number [address] [address] * (ABNORMAL) Hemoglobin (08/15/2024 5:42 AM EDT) [facility] HGB 9.0(L) 12.0 - 16.0 g/dL [facility] Blood 08/15/2024 5:42 AM EDT 08/15/2024 6:00 AM EDT Lo Miller MD LAB BLOOD ORDERABLES Final Re sult Performing Organization Address [facility] Co de Phone Number [address] [address] * (ABNORMAL) MRSA PCR SCREEN (08/14/2024 5:30 AM EDT) [facility] MRSA PCR SCREEN Positive(A ) Negative [facility] Comment:The Xpert MRSA Assay is intended to aid in the prevention and control of MRSA infections in healthcare settings. The assay is not intended to diagnose nor to guide or monitor treatment for MRSA infections. 08/14/2024 5:30 AM EDT 08/14/2024 6:35 AM EDT Lo Miller MD NON CULTURE MICROBIOLOGY Lupis l Result Performing Organization Address [facility] Co de Phone Number [address] [address] * (ABNORMAL) Comprehensive metabolic panel (08/14/2024 5:12 AM EDT) [facility] SODIUM 135 133 - 146 mmol/L [facility] POTASSIUM 4.4 3.3 - 5.1 mmol/L [facility] CHLORIDE 102 96 - 108 mmol/L [facility] CO2 23 21 - 35 mmol/L [facility] BUN 18 6 - 19 mg/dL [facility] CREATININE 0.60 0.5 - 1.5 mg/dL [facility] GLUCOSE 88 70 - 99 mg/dL [facility] ALBUMIN 3.0(L) 3.9 - 4.8 g/dL [facility] TOTAL PROTEIN 6.9 6.5 - 8.0 g/dL [facility] CALCIUM 8.4 8.4 - 10.3 mg/dL [facility] ALKALINE PHOSPHATASE 114 39 - 117 U/L [facility] TOTAL BILIRUBIN 0.5 0.0 - 1.2 mg/dL [facility] AST 32 0 - 37 U/L [facility] ALT 19 0 - 40 U/L [facility] GLOBULIN 3.9 1 - 4.8 g/dL [facility] EGFR 93 >59 mL/min/1.7 3m2 [facility] Comment:Estimated glomerular filtration rate calculated using the CKD-EPI refit equation. ANION GAP 14 10 - 20 mmol/L [facility] Blood 08/14/2024 5:12 AM EDT 08/14/2024 5:29 AM EDT us Anaya Valdez NP LAB BLOOD ORDERABLES Fi nal Result [address] [address] * (ABNORMAL) Urinalysis w/reflex Urine Culture (08/13/2024 9:02 AM EDT) Only the most recent of2 resultswithin the time period is included. COLOR Yellow Yellow [facility] CLARITY Clear [facility] GLUCOSE Negative Negative [facility] BILI Negative Negative [facility] KETONES Negative Negative [facility] SPECIFIC GRAVITY 1.025 1.005 - 1.030 [facility] BLOOD 1+(A) Negative [facility] PH 6.0 5.0 - 8.0 [facility] Protein-UA Negative Negative [facility] NITRITE Negative Negative [facility] Leukocyte esterase, ur Negative Negative [facility] Urine (Urine) 08/13/2024 9:0 2 AM EDT 08/13/2024 9:16 AM EDT Sergey Alejo MD URINE ORDERABLES F inal Result Performing Organization Address [facility] Co de Phone Number [address] [address] * (ABNORMAL) Urine sediment (08/13/2024 9:02 AM EDT) Only the most recent of2 resultswithin the time period is included. WBC 0-4(A) NONE SEEN /hpf [facility] RBC 6-10(A) NONE SEEN /hpf [facility] URINE EPITHELIAL 0-4(A) NONE SEEN [facility] MUCUS Trace(A) NONE SEEN /hpf [facility] BACTERIA Trace(A) NONE SEEN /hpf [facility] 08/13/2024 9:02 AM EDT 08/13/2024 9:16 AM EDT Sergey Alejo MD URINE ORDERABLES F inal Result Performing Organization Address [facility] Co de Phone Number [address] [address] * CT ABDOMEN/PELVIS WITHOUT CONTRAST (08/13/2024 8:02 AM EDT) Anatomical Region Laterality Modality Abdomen, Pelvis Computed Tomogra phy 08/13/2024 9:10 AM EDT Impressions 08/13/2024 9:58 AM EDT 1. Small bowel obstruction with transition point involving distal small bowel loops in the pelvis. 2. Cirrhotic liver with small volume ascites. ATTESTATION: I, Ryan Manuel as teaching physician, have reviewed the images for this case and if necessary edited the report originally created by Daniel Aleman. Narrative 08/13/2024 9:[address] ABDOMEN/PELVIS WITHOUT CONTRAST Referring clinician's provided indication for this examination in [facility]: * Abdominal distension TECHNIQUE: Multidetector-row CT of the abdomen and pelvis was performed without administration of intravenous contrast using tailored dose modulation techniques. Images were reconstructed in the axial, coronal, and sagittal planes. COMPARISON: CT ABDOMEN/PELVIS WITH CONTRAST FINDINGS: Limited evaluation of the solid organs and vasculature without intravenous contrast. Lower Chest: No consolidation or pleural effusions. Bilateral subpleural reticular opacities with associated traction bronchiolectasis, corresponding with known interstitial lung disease. Small hiatal hernia. Liver: Cirrhotic morphology with contour nodularity. Biliary: Prior cholecystectomy. Unchanged CBD dilatation, likely secondary to reservoir effect. Spleen: No splenomegaly. Pancreas: No ductal dilatation. 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 Adrenal Glands: No nodules. Kidneys/Ureters: No collecting system dilatation. No urinary tract calculus. Small hemorrhagic cysts. Bowel: Prior sigmoid colectomy. There are multiple dilated small bowel loops up to 4.4 cm with transition point involving distal small bowel loops in the pelvis. Peritoneum/Retroperitoneum: Small ascites. No pneumoperitoneum. Lymph Nodes: None enlarged. Pelvic Organs/Bladder: Decompressed bladder. Vessels: Aortic atherosclerosis. No aortic aneurysm. Bones/Soft Tissues: Degenerative changes of the spine and bilateral hip joints, more prominent on the left. Procedure Note Ryan Manuel MD - 08/13/2024 CT ABDOMEN/PELVIS WITHOUT CONTRAST Referring clinician's provided indication for this examination in [facility]: *Abdominal distension TECHNIQUE: Multidetector-row CT of the abdomen and pelvis was performedwithout administration of intravenous contrast using tailored dosemodulation techniques. Images were reconstructed in the axial, coronal,and sagittal planes. COMPARISON: CT ABDOMEN/PELVIS WITH CONTRAST FINDINGS: Limited evaluation of the solid organs and vasculature withoutintravenous contrast. Lower Chest: No consolidation or pleural effusions. Bilateral subpleuralreticular opacities with associated traction bronchiolectasis,corresponding with known interstitial lung disease. Small hiatal hernia. Liver: Cirrhotic morphology with contour nodularity. Biliary: Prior cholecystectomy. Unchanged CBD dilatation, likely secondaryto reservoir effect. Spleen: No splenomegaly. Pancreas: No ductal dilatation. Unchanged 6 mm cystic lesion in thepancreatic neck likely an IPMN (2:30). Adrenal Glands: No nodules. Kidneys/Ureters: No collecting system dilatation. No urinary tractcalculus. Small hemorrhagic cysts. Bowel: Prior sigmoid colectomy. There are multiple dilated small bowelloops up to 4.4 cm with transition point involving distal small bowelloops in the pelvis. Peritoneum/Retroperitoneum: Small ascites. No pneumoperitoneum. Lymph Nodes: None enlarged. Pelvic Organs/Bladder: Decompressed bladder. Vessels: Aortic atherosclerosis. No aortic aneurysm. Bones/Soft Tissues: Degenerative changes of the spine and bilateral hipjoints, more prominent on the left. IMPRESSION: 1. Small bowel obstruction with transition point involving distal smallbowel loops in the pelvis. 2. Cirrhotic liver with small volume ascites. ATTESTATION: I, Ryan Manuel as teaching physician, have reviewed theimages for this case and if necessary edited the report originally createdby Daniel Aleman. Sergey Alejo MD IMG CT ABD/PELVIS Final Result * (ABNORMAL) LFTs (hepatic panel) (08/13/2024 7:14 AM EDT) Only the most recent of2 resultswithin the time period is included. ALKALINE PHOSPHATASE 166(H) 39 - 117 U/L [facility] TOTAL BILIRUBIN 0.3 0.0 - 1.2 mg/dL [facility] DIRECT BILIRUBIN 0.1 0.0 - 0.2 mg/dL [facility] Bilirubin (Indirect) NOT CALCULATED 0 - 1.5 mg/dL [facility] AST 47(H) 0 - 37 U/L [facility] ALT 27 0 - 40 U/L [facility] TOTAL PROTEIN 8.3(H) 6.5 - 8.0 g/dL [facility] ALBUMIN 3.5(L) 3.9 - 4.8 g/dL [facility] GLOBULIN 4.8 1 - 4.8 g/dL [facility] A/G Ratio 0.73(L) 1.00 - 4.80 RATIO [facility] Blood 08/13/2024 7:14 AM EDT 08/13/2024 7:19 AM EDT Sergey Alejo MD LAB BLOOD ORDERABL ES Final Result Performing Organization Address City/[facility]/ZIP Co de Phone Number [address] [address] * Lactate (08/13/2024 7:14 AM EDT) LACTATE 0.93 0.50 - 2.20 mmol/L [facility] Blood 08/13/2024 7:14 AM EDT 08/13/2024 7:19 AM EDT Sergey Alejo MD LAB BLOOD ORDERABL ES Final Result Performing Organization Address [facility] Co de Phone Number [address] [address] * XR CHEST PA AND LATERAL 2 VIEWS (07/30/2024 1:20 PM EDT) Anatomical Region Laterality Modality Chest Computed Radiogr aphy 07/30/2024 2:00 PM EDT Impressions 07/30/2024 2:02 PM EDT No new consolidation. Narrative 07/30/2024 2:02 PM EDT XR CHEST PA AND LATERAL 2 VIEWS Referring clinician's provided indication for this examination in Epic: Cough; Dyspnea (Shortness of Breath); hx ILD COMPARISON: July 11, 2024, CT chest dated May 14, 2024 FINDINGS: Devices/Tubes/Lines: None. Lungs: Diffusely coarsened interstitial markings are similar to prior in keeping with known pulmonary fibrosis. No new consolidation. Pleura: No pleural effusion or pneumothorax. Heart/Mediastinum: The size of the cardiac silhouette is within normal limits. Bones/Soft Tissues: The bony thorax is grossly intact. Procedure Note Maggie Enriquez MD - 07/30/2024 XR CHEST PA AND LATERAL 2 VIEWS Referring clinician's provided indication for this examination in [facility]:Cough; Dyspnea (Shortness of Breath); hx ILD COMPARISON: July 11, 2024, CT chest dated May 14, 2024 FINDINGS: Devices/Tubes/Lines: None. Lungs: Diffusely coarsened interstitial markings are similar to prior inkeeping with known pulmonary fibrosis. No new consolidation. Pleura: No pleural effusion or pneumothorax. Heart/Mediastinum: The size of the cardiac silhouette is within normallimits. Bones/Soft Tissues: The bony thorax is grossly intact. IMPRESSION: No new consolidation. us Yoon Shelley PA-C IMG XR CHEST Final Resul t * CT ABDOMEN/PELVIS WITH CONTRAST (07/30/2024 1:08 PM EDT) Anatomical Region Laterality Modality Abdomen, Pelvis Computed Tomogra phy 07/30/2024 1:57 PM EDT Impressions 07/30/2024 3:37 PM EDT 1. Urinary bladder wall thickening and mucosal hyperemia likely cystitis. Suggest correlation with urinalysis. 2. No other acute abnormality in the abdomen or pelvis. ATTESTATION: I, Daniel Philippe as teaching physician, have reviewed the images for this case and if necessary edited the report originally created by Shahid Monique MD. Narrative 07/30/2024 3:[address] ABDOMEN/PELVIS WITH CONTRAST Referring clinician's provided indication for this examination in [facility]: * Flank pain, kidney stone suspected; * LUQ abdominal pain; hx ILD TECHNIQUE: Multidetector-row CT of the abdomen and pelvis was performed after administration of intravenous contrast using tailored dose modulation techniques. Images were reconstructed in the axial, coronal, and sagittal planes. COMPARISON: CT ABDOMEN/PELVIS WITH CONTRAST FINDINGS: Lower Chest: Unchanged reticular opacities in the bilateral lung bases, consistent with known interstitial lung disease. Liver: Cirrhotic morphology. Unchanged subcentimeter hypodensities too small to characterize. Biliary: Status post cholecystectomy. Biliary ductal dilatation with common bile duct measuring up to 1.8 cm, likely reservoir effect. Spleen: No splenomegaly or focal lesions. Pancreas: Unchanged cystic lesion in the pancreatic neck likely an IPMN. No masses or ductal dilatation. Adrenal Glands: No nodules. Kidneys/Ureters: Right interpolar cyst measuring 1.2 cm. Subcentimeter cortical intermediate density lesion at left upper pole likely a hemorrhagic/proteinaceous cyst. Additional bilateral hypodensities which are too small to characterize. No solid masses, stones, or hydronephrosis. Bowel: Intact large bowel anastomosis in the pelvis. Prior appendectomy. No bowel obstruction, bowel wall thickening or abnormal enhancement. Peritoneum/Retroperitoneum: No masses, pneumoperitoneum, or fluid. Lymph Nodes: No lymphadenopathy. Pelvic Organs/Bladder: Decompressed bladder showing mild wall thickening and mucosal hyperemia. No mass. Vessels: Aortic atherosclerosis. No aortic aneurysm. Bones/Soft Tissues: Multilevel degenerative changes of the spine. Procedure Note Daniel Philippe MBBS - 07/30/2024 CT ABDOMEN/PELVIS WITH CONTRAST Referring clinician's provided indication for this examination in Epic: *Flank pain, kidney stone suspected; * LUQ abdominal pain; hx ILD TECHNIQUE: Multidetector-row CT of the abdomen and pelvis was performedafter administration of intravenous contrast using tailored dosemodulation techniques. Images were reconstructed in the axial, coronal,and sagittal planes. COMPARISON: CT ABDOMEN/PELVIS WITH CONTRAST FINDINGS: Lower Chest: Unchanged reticular opacities in the bilateral lung bases,consistent with known interstitial lung disease. Liver: Cirrhotic morphology. Unchanged subcentimeter hypodensities toosmall to characterize. Biliary: Status post cholecystectomy. Biliary ductal dilatation withcommon bile duct measuring up to 1.8 cm, likely reservoir effect. Spleen: No splenomegaly or focal lesions. Pancreas: Unchanged cystic lesion in the pancreatic neck likely an IPMN.No masses or ductal dilatation. Adrenal Glands: No nodules. Kidneys/Ureters: Right interpolar cyst measuring 1.2 cm. Subcentimetercortical intermediate density lesion at left upper pole likely ahemorrhagic/proteinaceous cyst. Additional bilateral hypodensities whichare too small to characterize. No solid masses, stones, or hydronephrosis. Bowel: Intact large bowel anastomosis in the pelvis. Prior appendectomy.No bowel obstruction, bowel wall thickening or abnormal enhancement. Peritoneum/Retroperitoneum: No masses, pneumoperitoneum, or fluid. Lymph Nodes: No lymphadenopathy. Pelvic Organs/Bladder: Decompressed bladder showing mild wall thickeningand mucosal hyperemia. No mass. Vessels: Aortic atherosclerosis. No aortic aneurysm. Bones/Soft Tissues: Multilevel degenerative changes of the spine. IMPRESSION: 1. Urinary bladder wall thickening and mucosal hyperemia likely cystitis.Suggest correlation with urinalysis. 2. No other acute abnormality in the abdomen or pelvis. ATTESTATION: I, Daniel Philippe as teaching physician, have reviewed theimages for this case and if necessary edited the report originally createdby Shahid Monique MD. us Yoon Shelley PA-C IMG CT ABD/PELVIS Final Res ult * Lipase (07/30/2024 11:34 AM EDT) LIPASE 41 16 - 63 U/L [facility] Blood 07/30/2024 11:3 4 AM EDT 07/30/2024 11:37 AM EDT us Sunil Ornelas MD LAB BLOOD ORDERABLES Final Result [address] [address] * ECG 12-LEAD (07/30/2024 11:25 AM EDT) Ventricular Rate EKG/MIN 104 BPM [facility] Atrial Rate 104 BPM [facility] IA Interval 142 ms [facility] QRS Duration 90 ms [facility] QT Interval 348 ms [facility] QTC Interval 457 ms [facility] P [place] 32 degrees [facility] R Wave [place] -34 degrees [facility] T Wave [place] 0 degrees [facility] 07/30/2024 11:2 5 AM EDT 07/31/2024 11:02 AM EDT Narrative [facility] - 07/31/2024 11:02 AM EDT Sinus tachycardia Possible Left atrial enlargement Left axis deviation Possible Anterior infarct (cited on or before 11-Jul-2024) Abnormal ECG When compared with ECG of 11-Jul-2024 21:29, No significant change was found Confirmed by Lamberto Foster ([id number]) on 07/31/2024 11:02:05 AM us Sunil Ornelas MD ECG ORDERABLES Final Resul t [facility] from Last 3 Months Additional Health Concerns Infection Onset Date Last Indicated 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 08/14/2024 Insurance MEDICARE PART A & B [facility] B [place] [facility] PART [facility] & B [facility] & B [facility] & [facility] & B [employer] MEDICARE PART A [place] [id number] Advance Directives For more information, please contact: [phone] (9AM - 5PM [place], Saturday-Saturday) * Full Code (Latest Code Status on File) Date Activated Date Inactivated Comments 08/13/2024 11:51 AM Question Answer Comments Code Status Confirmed With: Patient * Full Code Date Activated Date Inactivated Comments 05/14/2024 12:29 AM 08/13/2024 11:51 AM Question Answer Comments Code Status Confirmed With: Patient * Full Code Date Activated Date Inactivated Comments 04/28/2024 8:34 PM 05/14/2024 12:29 AM Question Answer Comments Code Status Confirmed With: Patient Code Status Communicated To: Inpatient Attending * Full Code Date Activated Date Inactivated Comments 02/22/2024 10:19 PM 04/28/2024 8:34 PM Question Answer Comments Code Status Confirmed With: Patient Code Status Communicated To: Inpatient Attending 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 It is not the complete legal health record.[facility]
[2024-10-23 22:33] LABS: Procalcitonin 0.02 ng/mL
--- NOTE | 2024-10-23 22:43 | ED.SOB ---
HPI - SOB/Dyspnea General Chief Complaint: General Medical Stated Complaint: difficulty breathing, R leg pain Time Seen by Provider: 10/23/24 21:38 Source: patient and old records reviewed Mode of arrival: ambulatory Limitations: no limitations History of Present Illness ED Provider: WILLIAM ONEILL Narrative: 74 yo female with PMH of GIB, SBO, ILD, anemia, sjogren syndrome, COPD not on home O2, GERD, n/v who comes in with c/o R leg pain for 4 days and calf cramp she thinks she bumped her leg. She is not on blood thinners. She has not traveled recently - she notes tonight she went to see friends felt fine and all of a sudden felt wheezing, dyspnea, chest tightness. It came out of nowhere. She is worried she has a clot in her lungs. No recent fevers, sputum production. Had a normal day. She did try albuterol [employer] but no relief MD elicited complaint: shortness of breath Pertinent past history: COPD Onset (ago): hour(s) (1) Context: other Timing: constant Severity: moderate Exacerbating factors: exertion and coughing Relieving factors: nothing Known history of: COPD Associated symptoms: other (calf pain) Treatment prior to arrival: bronchodilator Related Data Home Medications ?Medication ?Instructions ?Recorded ?Confirmed cholecalciferol (vitamin D3) 125 125 mcg PO DAILY 01/05/22 03/23/24 mcg (5,000 unit) capsule multivitamin 1 tab PO DAILY 04/08/22 03/23/24 hydrocodone 5 mg-acetaminophen 325 0.5 tab PO QID PRN severe pain 02/13/24 03/23/24 mg tablet lorazepam 1 mg tablet 1 mg PO BEDTIME PRN Anxiety 02/13/24 03/23/24 guaifenesin 600 mg tablet, 600 mg PO BID 03/23/24 03/23/24 extended release 12 hr (Mucinex) mesalamine 1,000 mg rectal 1,000 mg DC BEDTIME 03/23/24 03/23/24 suppository pantoprazole 40 mg tablet,delayed 40 mg PO BID@0630,1630 03/23/24 03/23/24 release Previous Rx's ?Medication ?Instructions ?Recorded lidocaine 5 % topical patch 1 patch topical DAILY PRN Pain #30 10/24/22 (Lidoderm) ea fluticasone furoate 200 1 inh inhalation DAILY copd 30 12/09/23 mcg-vilanterol 25 mcg/dose days #60 ea inhalation powder (Breo Ellipta) polyethylene glycol 3350 17 gram 17 g PO DAILY PRN Constipation #30 02/20/24 oral powder packet ea sucralfate 100 mg/mL oral 2 g (20 mL) DC BID #1,000 mL 02/20/24 suspension azithromycin 250 mg tablet 250 mg PO 3XW 28 days #12 tabs 03/30/24 albuterol sulfate 90 mcg/actuation 2 puff inhalation Q4H PRN 04/17/24 aerosol inhaler (Ventolin HFA) shortness of breath or wheezing #1 ea hydroxychloroquine 200 mg tablet 300 mg (1.5 x 200 mg) PO DAILY 90 05/28/24 days #135 tabs prednisone 10 mg tablet See Taper PO DIRECTED #20 tabs 10/24/24 Allergies Allergy/AdvReac Type Severity Reaction Status Date / Time ciprofloxacin (From Cipro) AdvReac Intermediate Facial Verified 10/23/24 21:35 redness, lip swelling Review of Systems Review of Systems: Constitutional : No Fever, No Chills ENT/Mouth : No sore throat, No Rhinorrhea, No Swallowing Difficulty Eyes: No Eye Pain, No Swelling, No Redness Cardiovascular : No Chest Pain, positive SOB, No Orthopnea, no Edema Respiratory : No Cough, No Sputum, No Wheezing, positive dyspnea Gastrointestinal : No Nausea, No Vomiting, No Diarrhea, No abdominal Pain, No Hematochezia, No Melena Genitourinary : No Dysuria, No Urinary Frequency, No Hematuria Musculoskeletal : No joint pain, No Myalgias, pos calf pain Skin : No Skin Lesions, No rash Neuro : No Weakness, No Numbness, No Dizziness, No Headache All other systems reviewed and are negative PMFSH Past Medical History Attestation statement: The following information was validated with the patient. Source: old records reviewed Medical History Interstitial lung disease SBO (small bowel obstruction) Syncope Abdominal pain Bronchiectasis Shoulder pain, bilateral UTI (urinary tract infection) Arthralgia Dizziness Dysuria Acute sinusitis Periumbilical abdominal pain Flank pain Left flank pain Annual physical exam IBS (irritable bowel syndrome) Gastritis Cough Fatigue Scabies Post covid-19 condition, unspecified Elevated LFTs Diarrhea Sinusitis Bronchitis Well woman exam COPD (chronic obstructive pulmonary disease) Radiation proctitis Radiation enteritis Postmenopausal bleeding History of colon cancer Rectal bleeding Asthma Vertigo Seasonal allergies Hyperglycemia Palpitation Hemochromatosis Tubular adenoma Colon cancer Vaginal cancer Surgical History History of cholecystectomy History of esophagogastroduodenoscopy (EGD) H/O colonoscopy H/O colectomy Family History Family History Father Dementia GSW (gunshot wound) CAD (coronary artery disease) Mother GSW (gunshot wound) Family/Other Diabetes mellitus Brother CAD (coronary artery disease) Sister Multiple sclerosis Sister Rheumatoid arthritis Sister Rheumatoid arthritis Social History Social History Household Members: None Household Members Other:: aunt a 96 years old Housing: House Are you a primary healthcare receptionist to a significant other at home: No Do you presently have visiting nurse or other home services: No Unable to assess alcohol history related to: Unknown Alcohol intake: never Patient Tobacco Use Status: Never used Tobacco Smoked in Last 30 Days: No e-Cigarette/Vaping Use: Never Used Second Hand Smoke Exposure: No Use of substances other than those prescribed or required for medical reasons: No Advance Directives: Yes Advance Directives on File: Yes Advance Directives Date on File: 04/09/22 service: No Current occupational status: unemployed Sexual orientation: Straight/Heterosexual Gender identity: Female Physical Exam Vital Signs: Vital Signs: Last Vital Signs Temp 98.0 F 10/24/24 00:01 Pulse 108 H 10/24/24 00:01 Resp 20 10/24/24 00:01 BP 146/77 H 10/24/24 00:01 Pulse Ox 96 10/24/24 00:01 O2 Del Method Room Air 10/24/24 00:01 BMI result Body Mass Index 25.6 Appearance: Alert. Oriented X3. No acute distress. Eyes: Pupils equal, round and reactive to light. ENT: Pharynx normal. Neck: Normal inspection. Neck supple. CVS: tachycardic heart rate and rhythm. Pulses normal. Respiratory: No respiratory distress. Breath sounds diffuse exp wheezes Abdomen: Soft and nontender. Skin: Skin warm and dry. Normal skin color. Normal skin turgor. Extremities: No lower extremity edema. R calf ttp no infection, normal pulses Neuro: Oriented X 3. No motor deficit. No sensory deficit. CN2-12 intact Medications Administered Generic Name Dose Route Start Last Admin Trade Name Freq PRN Reason Stop Dose Admin Guaifenesin/Codeine Phosphate 5 ml 10/24/24 00:01 10/24/24 00:49 Guaifen/Codeine Sf 200/20/10ml 10 Ml Liquid PO 5 ml Q4H PRN Administration Cough Discontinued Medications Generic Name Dose Route Start Last Admin Trade Name Freq PRN Reason Stop Dose Admin Albuterol Sulfate 2.5 mg 10/23/24 21:47 10/23/24 21:49 Albuterol Sulfate (0.083%) 2.5 Mg/3 Ml Vial.Neb INHALE 10/23/24 21:48 2.5 mg ONCE ONE Administration Albuterol/Ipratropium 3 ml 10/24/24 00:23 10/24/24 00:25 Albuterol/Iprat 2.5/0.5mg 3 Ml Ampul.Neb INHALE 10/24/24 00:24 3 ml ONCE ONE Administration Ceftriaxone Sodium 1 gm 10/23/24 21:40 10/23/24 22:45 Ceftriaxone Sodium 1 Gm Vial IVPUSH 10/23/24 21:41 1 gm ONCE ONE Administration Magnesium Sulfate 2 gm in 50 mls @ 150 mls/hr 10/23/24 21:38 10/23/24 22:15 Magnesium Sulfate/H2o IV 10/23/24 21:57 Infused ONCE ONE Infusion Iohexol 75 ml 10/23/24 23:01 10/23/24 23:05 Iohexol 350 Mg/Ml 100 Ml Infus..Btl IV 10/23/24 23:02 75 ml ONCE ONE Administration Methylprednisolone Sodium Succinate 60 mg 10/23/24 21:38 10/23/24 21:53 Methylprednisolone Sod Succ 125 Mg/2 Ml Vial IVPUSH 10/23/24 21:39 60 mg ONCE ONE Administration Medical Decision Making Medical Decision Making MDM Narrative: 74 yo female with PMH of GIB, SBO, ILD, anemia, sjogren syndrome, COPD not on home O2, GERD, n/v here with reported R leg pain after bumping it - she has abrupt onset dyspnea at this time will need labs, DVT study, CTA:PE, IV steroids, neb therapy possible ILD/COPD, bronchitis, PE, DVT. Will monitor. Differential Diagnosis Differential Diagnoses: The differential diagnosis associated with the presentation includes DVT, VTE, ILD, COPD Admission/Observation Consideration of admission/observation: Escalation of care including admission/observation considered no hypoxia feels better given anti tussive and repeat nebs tachycardia from nebs given neg DVT study doubt PE tachcyardia due to nebs, clear lungs, eager to go home, O2 ambulation trial > 95% her friend is going to stay with her tonight Lab Data MDM Lab Attestation statement: I reviewed the patient's lab results. 10/23/24 21:48 10/23/24 21:48 Labs: Lab Results 10/23/24 10/23/24 10/24/24 Range/Units 21:48 21:55 00:07 WBC 5.4 (4.8-10.8) X10*3/uL RBC 3.16 L (4.20-5.50) X10*6/uL Hgb 10.5 L (12.0-16.0) g/dl Hct 31.5 L (37.0-47.0) % MCV 99.7 H (80.0-98.0) fL MCH 33.2 H (27.0-33.0) pg MCHC 33.3 (31.0-35.0) g/dl RDW 15.7 (11.0-16.0) % Plt Count 217 (160-400) X10*3/uL MPV 9.3 L (9.4-12.3) fL Immature Gran % (Auto) 0.4 (0.0-0.4) % Neut % (Auto) 68.3 (45-73) % Lymph % (Auto) 18.8 L (20-40) % [place] % (Auto) 10.1 (2-11) % Eos % (Auto) 2.0 (0-4) % Baso % (Auto) 0.4 (0-2) % Lymph # (Auto) 1.0 L (1.2-4.9) X10*3/uL [place] # (Auto) 0.6 (0.1-1.2) X10*3/uL Eos # (Auto) 0.1 (0.0-0.4) X10*3/uL Baso # (Auto) 0.0 (0.0-0.2) X10*3/uL Abs Immat Gran (auto) 0.02 (0.00-0.03) X10*3/uL Absolute Neuts (auto) 3.7 (2.0-8.3) x10*3/uL Absolute Nucleated RBC 0.000 (0.0-0.012) X10*3/uL Nucleated RBC % (auto) 0.0 (0.0-0.2) /100WBC Hold Blue Top SEE NOTE VBG pH 7.44 H (7.32-7.43) VBG pCO2 35 mmHg VBG pO2 40 mmHg VBG HCO3 24 (22-26) mmol/L VBG O2 Saturation 59.0 % VBG Base Excess 1.2 mmol/L Sodium 136 (135-145) mmol/L Potassium 4.7 (3.3-5.1) mmol/L Chloride 107 (96-108) mmol/L Carbon Dioxide 22 (22-29) mmol/L Anion Gap 12 (12-20) BUN 21 H (9-16) mg/dL Creatinine 0.87 (0.5-1.4) mg/dL Estim Creat Clear Calc 48.1 Estimated GFR > 60 Random Glucose 84 (60-115) mg/dL Lactic Acid 0.9 (0.5-2.0) mmol/L Calcium 9.0 (8.4-10.2) mg/dL Magnesium 2.2 (1.6-2.6) mg/dL Total Bilirubin 0.3 (0.0-1.0) mg/dL Direct Bilirubin 0.1 (0.0-0.5) mg/dL AST 62 H (5-31) U/L ALT 35 H (0-31) U/L Alkaline Phosphatase 141 H (39-117) U/L Troponin I High Sens < 2.7 (<3.5-17.0) ng/L C-Reactive Protein 0.28 (< or = 0.50) mg/dL B-Natriuretic Peptide 32 (<100) pg/mL Total Protein 8.2 H (6.5-8.0) g/dL Albumin 3.6 (3.5-5.0) g/dL Procalcitonin 0.02 ng/mL Urine Color Yellow Urine Appearance Clear Urine pH 5.5 (5.0-9.0) Ur Specific [place] >= 1.030 H (1.005-1.025) Urine Protein Negative (Neg-Trace) mg/dL Urine Glucose (UA) Negative (Negative) mg/dL Urine Ketones Negative (Negative) mg/dL Urine Blood Small (1+) H (Negative) Urine Nitrite Negative (Negative) Ur Leukocyte Esterase Trace H (Negative) Urine RBC 3-5 H (0-2) /HPF Urine WBC 0-5 (0-5) /HPF Ur Squamous Epith Cells 0-2 (0-2) /HPF Urine Bacteria None Seen (None Seen) Hyaline Casts 0-2 (0-2) /LPF Independent Interpretation I performed an independent interpretation of an: EKG, Ultrasound (normal ) and CT Scan (no pneumonia no VTE) Interpretation: Rate: 113 Rhythm: sinus tach with occ PVCs [place]: left Normal P waves. Normal SERGEY. Normal QRS complex. ST T wave : normal no ZAIDA qTC: 480 prior studies: no acute disease The study has been interpreted contemporaneously by me. . Radiology Impression Discussion of test interpretation with radiology: I have reviewed the radiologist's reading. Independent Historian Clinical information obtained from an independent historian. History obtained from or confirmed by: Friend External Record Review External record reviewed: Outpatient record Prescription Management I considered prescription management with: Antibiotic and Other Discharge Plan Discharge Clinical Impression: COPD (chronic obstructive pulmonary disease) Qualifiers: COPD type: COPD with acute exacerbation Qualified Code(s): J44.1 - Chronic obstructive pulmonary disease with (acute) exacerbation Patient Disposition: Home, Self-Care Instructions: COPD (Chronic Obstructive Pulmonary Disease) (ED) Additional Instructions: your labs are reassuring EKG was reassuring no blood clot in R leg and no blood clots or pneumonia in lungs the CT scan does show some fibrosis of the lungs which means they are more hard not elastic you need to rest and take your nebs as needed return for any worsening symptoms or concerns. Prescriptions: New prednisone 10 mg tablet See Taper PO DIRECTED Qty: 20 0RF Taper: Prednisone 40 mg daily for 2 Days and 0 Hour 30 mg daily for 2 Days and 0 Hour 20 mg daily for 2 Days and 0 Hour 10 mg daily for 2 Days and 0 Hour No Action fluticasone furoate-vilanterol [Breo Ellipta] 200-25 mcg/dose blister with device 1 inh inhalation DAILY 30 Days Qty: 60 3RF azithromycin 250 mg tablet 250 mg PO 3XW 28 Days Qty: 12 1RF Rx Instructions: Take 1 tablet on Saturday/Saturday/Saturday albuterol sulfate [Ventolin HFA] 90 mcg/actuation HFA aerosol inhaler 2 puff inhalation Q4H PRN (Reason: shortness of breath or wheezing) Qty: 1 4RF hydroxychloroquine 200 mg tablet 300 mg PO DAILY 90 Days Qty: 135 0RF multivitamin Tablet 1 tab PO DAILY mesalamine 1,000 mg suppository 1,000 mg DC BEDTIME guaifenesin [Mucinex] 600 mg Tablet Extended Release 12hr 600 mg PO BID pantoprazole 40 mg tablet,delayed release (DR/EC) 40 mg PO BID@0630,1630 hydrocodone-acetaminophen 5-325 mg tablet 0.5 tab PO QID PRN (Reason: severe pain) lorazepam 1 mg tablet 1 mg PO BEDTIME PRN (Reason: Anxiety) sucralfate 100 mg/mL Suspension 2 g DC BID Qty: 1000 0RF polyethylene glycol 3350 17 gram Powder In Packet 17 g PO DAILY PRN (Reason: Constipation) Qty: 30 0RF cholecalciferol (vitamin D3) 125 mcg (5,000 unit) capsule 125 mcg PO DAILY lidocaine [Lidoderm] 5 % adhesive patch,medicated 1 patch topical DAILY PRN (Reason: Pain) Qty: 30 2RF Rx Instructions: leave on most painful area for up to 12 hours Print Language: German
[2024-10-23] MEDS: iohexoL 350 MG/ML 100 ML INFUS..BTL 75 ML IV (23:05)
[2024-10-24 00:01] VITALS: BP 146/77; PULSE 108; RESP 20; TEMP 36.7; O2SAT 96
--- NOTE | 2024-10-24 00:02 | PC.NURSE ---
Notified Dr. Emerson of complaining of increase cough.
--- NOTE | 2024-10-24 00:08 | MHC.EDTECH ---
Patient refused SARS/FLU/RSV nasal swabs
[2024-10-24 00:16] LABS: Appearance Urine Clear; Glucose Urine UA Negative (Negative); PH 5.5 (5.0-9.0); Specific Gravity - Urine >= 1.030 (1.005-1.025); UMIC TRIGGER UACC YES
--- NOTE | 2024-10-24 00:22 | PC.NURSE ---
respiratory called for a breathing treatment.
[2024-10-24] MEDS: Albuterol/Iprat 2.5/0.5MG 3 ML AMPUL.NEB INHALE (00:25)
[2024-10-24] MEDS: guaiFEN/Codeine SF 200/20/10ML 10 ML LIQUID 5 ML PO (00:49)
--- NOTE | 2024-10-24 00:50 | PC.NURSE ---
medicated per mar.
--- NOTE | 2024-10-24 01:25 | PC.NURSE ---
reviewed discharge instructions with pt. pt verbalized understanding, no sign of respiratory distress upon discharge.
[2024-10-24 01:26] VITALS: BP 146/77; PULSE 108; RESP 20; TEMP 36.7; O2SAT 96
== END 2024-10-24 01:27 | disposition home or self-care (01) ==
PROVIDERS: Emergency Provider Emergency Medicine
DX: J44.1 Chronic obstructive pulmonary disease with (acute) exacerbation (principal); R00.0 Tachycardia, unspecified; R60.0 Localized edema; R06.02 Shortness of breath; M79.604 Pain in right leg; J44.9 Chronic obstructive pulmonary disease, unspecified; R94.31 Abnormal electrocardiogram [ECG] [EKG]; Z79.899 Other long term (current) drug therapy
CPT/HCPCS: 36415; 71275; 80048; 80076; 81001; 82803; 83605; 83735; 83880; 84145; 84484; 85025; 86140; 87040; 93005; 93971; 96365; 96375; 99284; 99285; J0696; J2919; J3475; Q9967

== ENCOUNTER → 2024-10-23 21:39 | Outpatient (BNV) | payer MEDICARE, MEDICAID, SELFPAY | PROVIDERS: Emergency Provider Emergency Medicine; Visit Provider Internal Medicine Cardiovascular Disease | DX: I49.3 Ventricular premature depolarization (principal); R00.0 Tachycardia, unspecified | CPT/HCPCS: 93010 ==

== ENCOUNTER → 2024-10-23 21:45 | Outpatient (BNV) | payer MEDICARE, MEDICAID, SELFPAY | PROVIDERS: Emergency Provider Emergency Medicine; Visit Provider Radiology Diagnostic Radiology | DX: M79.604 Pain in right leg (principal); R22.41 Localized swelling, mass and lump, right lower limb | CPT/HCPCS: 71275; 93971 ==

== ENCOUNTER 2024-11-12 15:28 | Outpatient (AMB) | payer MEDICARE, MEDICAID, SELFPAY ==
--- NOTE | 2024-11-12 15:31 | A.OFFVIS_ITS ---
Vital Signs 11/12/24 15:32 Height 5 ft 2 in Weight 144 lb 6.444 oz BMI 26.4 BP 120/64 Blood Pressure Location Lt brachial Position Sitting Pulse 107 H Pulse Source Pulse Oximeter Pulse Oximetry (%) 95 Oxygen Delivery Method Room Air Intake Visit Reasons: copd Intake Note: pt is here for follow up and has been through a lot of health issues in the past 6 months, she is having short of breath with any exertion, stairs is very fatigued. 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 Allergies ciprofloxacin (From Cipro) Adverse Reaction (Intermediate, Verified 11/12/24 16:03) Facial redness, lip swelling Medication List - Last Reconciled 11/12/24 by Vane Loja MD albuterol sulfate 90 mcg/actuation (Ventolin HFA) 2 puffs inhalation Q4H PRN cholecalciferol (vitamin D3) 125 mcg PO DAILY fluticasone propionate 50 mcg/actuation 2 sprays intranasal DAILY gabapentin 300 mg PO TID guaifenesin ER (Mucinex) 600 mg PO BID hydrocodone-acetaminophen 5-325 mg 0.5 tabs PO QID PRN hydroxychloroquine 300 mg (1.5 x 200 mg) PO DAILY 90 days ipratropium-albuterol 0.5 mg-3 mg(2.5 mg base)/3 mL 3 mL inhalation Q6H PRN lidocaine 5% (Lidoderm) 1 patch topical DAILY PRN lorazepam 1 mg PO BEDTIME PRN mesalamine 1,000 mg RI BEDTIME multivitamin 1 tab PO DAILY pantoprazole 40 mg PO BID@0630,1630 polyethylene glycol 3350 17 grams PO DAILY PRN sucralfate 2 grams (20 mL) RI BID Do you need a note to return to daycare/school/sports/work: Yes HPI HPI copd: Details: VINCENZO IS 74 YEARS OLD FEMALE, WITH PAST HISTORY OF SMOKING, AND HAS BEEN TREATED FOR CHRONIC OBSTRUCTIVE PULMONARY DISEASE IN THE PAST . SHE HAS NOT COME FOR FOLLOW-UP FOR ALMOST 1 YEAR. ON 10/23 SHE WAS SEEN IN THE EMERGENCY ROOM WITH INCREASED SHORTNESS OF BREATH, SWELLING OF THE LEG, AND HAD CTA OF THE CHEST IN THE EMERGENCY ROOM. WHICH SHOWED EXTENSIVE INTERSTITIAL LUNG DISEASE/ ALVEOLITIS , BUT NO PULMONARY EMBOLISM. SHE WAS ADVISED TO COME HERE FOR FOLLOW-UP THIS PATIENT ALSO HAS RHEUMATOID ARTHRITIS BEING TREATED WITH HYDRO CHLOROQUINE 300 MG P.O. DAILY SHE DENIES HAVING ANY ACUTE VIRUS INFECTION LATELY. IN THE PAST SHE USED TO USE THE IPRATROPIUM-ALBUTEROL SOLUTION IN THE NEBULIZER NEEDED BUT SHE HAS BEEN OUT OF THIS SUPPLY. TODAY SHE COMES FOR PULMONARY FOLLOW-UP AND COMPLAINS THAT SHE GETS SHORT OF BREATH ON LIGHT EXERTION. SHE HAS INCREASED COUGH BUT NOT MUCH EXPECTORATION. 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 [facility] Medical History Interstitial lung disease SBO (small bowel obstruction) Syncope Abdominal pain Bronchiectasis Shoulder pain, bilateral UTI (urinary tract infection) Arthralgia Dizziness Dysuria Acute sinusitis Periumbilical abdominal pain Flank pain Left flank pain Annual physical exam IBS (irritable bowel syndrome) Gastritis Cough Fatigue Scabies Post covid-19 condition, unspecified Elevated LFTs Diarrhea Sinusitis Bronchitis Well woman exam COPD (chronic obstructive pulmonary disease) Radiation proctitis Radiation enteritis Postmenopausal bleeding History of colon cancer Rectal bleeding Asthma Vertigo Seasonal allergies Hyperglycemia Palpitation Hemochromatosis Tubular adenoma Colon cancer Vaginal cancer Surgical History History of cholecystectomy History of esophagogastroduodenoscopy (EGD) H/O colonoscopy H/O colectomy Family History Father Dementia GSW (gunshot wound) CAD (coronary artery disease) Mother GSW (gunshot wound) Family/Other Diabetes mellitus Brother CAD (coronary artery disease) Sister Multiple sclerosis Sister Rheumatoid arthritis Sister Rheumatoid arthritis Social History Household Members: None Household Members Other:: aunt a 96 years old Housing: House Are you a primary direct care provider to a significant other at home: No Do you presently have visiting nurse or other home services: No Unable to assess alcohol history related to: Unknown Alcohol intake: never Patient Tobacco Use Status: Never used Tobacco e-Cigarette/Vaping Use: Never Used Second Hand Smoke Exposure: No Advance Directives Date on File: 04/09/22 service: No Current occupational status: unemployed Sexual orientation: Straight/Heterosexual Gender identity: Female Review of Systems Const All systems reviewed & are unremarkable except as noted in HPI and below Eyes Reports no additional complaints ENT Reports nasal congestion (Mild intermittent) Card Denies chest pain, Denies irregular heart rhythm and Denies leg edema Resp Reports as per HPI GI Reports no additional complaints Reports no additional complaints Musc Reports no additional complaints Skin/Breast Reports system reviewed and no additional complaints, except as documented Neuro Reports no additional complaints Psych Reports no additional complaints Endo Reports no additional complaints Physical Exam Const General: comfortable, no acute distress, alert and awake Orientation/consciousness: patient oriented x3 HEENT Head: Yes normal to inspection General nose exam: No nasal polyps present and Other nasal findings present (MODERATE NASAL CONGESTION, SHE HAS COPIOUS POSTERIOR PHARYNGEAL MUCOUS) Face and sinus: Yes sinuses nontender Mouth: oropharynx normal Throat: No posterior oropharynx normal (HAS LOT OF MUCUS IN THE POSTERIOR PHARYNX.) Eyes General: appearance normal, both eyes and all related structures Neck Neck: Yes normal visual inspection, Yes no lymphadenopathy, Yes trachea midline and Yes no JVD Thyroid: Thyroid normal Chest Chest palpation & inspection: normal inspection of the chest, normal palpation of entire chest wall and no tenderness Resp Other: Percussion note resonant, breath sounds are slightly distant. No wheezes but she does have a few inspiratory crackles over the lower lobes on both sides . Cardio Palpation: normal PMI Rate: regular rate Rhythm: regular rhythm Heart sounds: no gallops and no murmurs Peripheral pulses: Peripheral pulses 2+ throughout GI Palpation (GI): Soft to palpation, nontender, No hepatosplenomegaly present and no masses Auscultation: normal bowel sounds Back/Spine/Pelvis Thoracic/Lumbar Spine: thoracic and lumbar spine normal to inspection Skin General skin exam: no rashes or lesions noted Neuro General: patient oriented x3 and no focal motor deficits Cranial nerves: Yes CN's II-XII intact bilaterally Extrem General: Yes normal to inspection, Yes no clubbing, cyanosis or edema and Yes no calf tenderness Psych Speech and movement: Normal speech and movement present Results Reviewed Results Reviewed: CTA OF CHEST 10/23/24 IMPRESSION: 1. No acute pulmonary embolus in visualized central pulmonary arteries, with suboptimal evaluation of distal vessels. 2. Bilateral peripheral honeycombing and ground-glass opacities concerning for fibrosis. Assessment & Plan Assessment & Plan (1) COPD (chronic obstructive pulmonary disease): Comment: Patient does have mild to moderate chronic obstructive pulmonary disease., it was relatively stable and she has not come for follow-up during the past 1 year. Lately for the last month or so her symptoms are worse . She This is in addition to her interstitial lung disease getting much worse. Code(s): J44.9 - Chronic obstructive pulmonary disease, unspecified Category: Medical Qualifiers: COPD type: COPD with acute exacerbation Qualified Code(s): J44.1 - Chronic obstructive pulmonary disease with (acute) exacerbation Plan: I advised her to use the nebulizer with ipratropium and albuterol solution at least 3 times a day (2) Interstitial lung disease: Comment: Her previous chest x-ray and CT scan have shown evidence of INTERSTITIAL LUNG DISEASE WITH TRACTION BRONCHIECTASIS . The CTA of the chest on 10/23 [place] when she went to emergency room, shows extensive interstitial lung disease with pattern of alveolitis. This may be due to recent respiratory infections , or progression of her previously diagnosed ILD Code(s): J84.9 - Interstitial pulmonary disease, unspecified Category: Medical Plan: She will be treated with a course of prednisone , and doxycycline. . I ordered prednisone 10 mg b.i.d. for 2 weeks then prednisone 10 mg daily for 2 weeks Also ordered doxycycline 100 b.i.d. for 10 days. (3) Bronchiectasis: Comment: She has traction bronchiectasis in the lower lobes secondary to chronic fibrotic changes . This makes her a high risk for recurrent respiratory infections. Code(s): J47.9 - Bronchiectasis, uncomplicated Category: Medical Plan: Treatment as under interstitial lung disease . Medications: New prednisone 1 tab. (10 mg ) bid for 14 days , then 10 mg once a day to continue 10 mg PO DIRECTED 28 tabs 1RF ILD/ ALVEOLITIS 4 weeks doxycycline hyclate 100 mg PO DAILY 10 tabs 0RF Alveolitis 10 days Coding Level of Care Code Est Pt Level 4 (72774) Diagnoses COPD (chronic obstructive pulmonary disease) J44.1 COPD type: COPD with acute exacerbation Interstitial lung disease J84.9 Bronchiectasis J47.9
[2024-11-12 15:32] VITALS: BP 120/64; PULSE 107; O2SAT 95; BMI 26.4
--- OUTSIDE RECORDS SUMMARY | 2024-11-12 16:27 | XMS_ITS | Clinical Summary ---
Author Organization [facility] Address [address] [place], [place] [id number] Phone Care Team Providers Care Lot Porter Name Role Phone Catie Isabel EMERGENCY SPILL RESPONSE TECHNICIAN Primary Care Provider [phone] Allergies Active Allergy Reactions Criticality Noted Date Comments Diatrizoate Rebeka-Diatrizoat Sod 05/22/2024 She does not. She confirmed several times she has tolerated IV contrast and she just had it a few weeks ago without requiring premedication and with no adverse effects Yoon Acosta [facility] DENISSE Medications VENTOLIN HFA 90 mcg/actuation inhaler [...] and rescheduled for June. Had EGD at [facility] in fall 2023 showing gastritis at that time also had treatment for radiation proctitis. Admitted here in February 2024 with bloody stool. Had APC therapy. Rectal mesalamine started. Hemoglobin with initial drop but stable since (Had incidental findings on CT during admission in 02/2024 at [facility] cirrhosis hypodensity in pancreatic neck hypodensity left [...] and rescheduled for June. Had EGD at [facility] in fall 2023 showing gastritis at that time also had treatment for radiation proctitis. Admitted here in February 2024 with bloody stool. Had APC therapy. Rectal mesalamine started Hemoglobin with initial drop but stable since (Had incidental findings on CT during admission in 02/2024 at [facility] cirrhosis hypodensity in pancreatic neck hypodensity left [...] and rescheduled for June. Had EGD at [facility] in fall 2023 showing gastritis at that time also had treatment for radiation proctitis. Admitted here in February 2024 with bloody stool. Had APC therapy. Rectal mesalamine started Hemoglobin with initial drop but stable since (Had incidental findings on CT during admission in 02/2024 at [facility] cirrhosis hypodensity in pancreatic neck hypodensity left [...] and rescheduled for June. Had EGD at [facility] in fall 2023 showing gastritis at that time also had treatment for radiation proctitis. Admitted here in February 2024 with bloody stool. Had APC therapy. Rectal mesalamine started Hemoglobin with initial drop but stable since (Had incidental findings on CT during admission in 02/2024 at [facility] cirrhosis hypodensity in pancreatic neck hypodensity left [...] and rescheduled for June. Had EGD at [facility] in fall 2023 showing gastritis at that time also had treatment for radiation proctitis. Admitted here in February 2024 with bloody stool. Had APC therapy. Rectal mesalamine started Hemoglobin with initial drop but stable since (Had incidental findings on CT during admission in 02/2024 at [facility] cirrhosis hypodensity in pancreatic neck hypodensity left [...] and rescheduled for June. Had EGD at [facility] in fall 2023 showing gastritis at that time also had treatment for radiation proctitis. Admitted here in February 2024 with bloody stool. Had APC therapy. Rectal mesalamine started Hemoglobin with initial drop but stable since (Had incidental findings on CT during admission in 02/2024 at [facility] cirrhosis hypodensity in pancreatic neck hypodensity left [...] and rescheduled for June. Had EGD at [facility] in fall 2023 showing gastritis at that time also had treatment for radiation proctitis. Admitted here in February 2024 with bloody stool. Had APC therapy. Rectal mesalamine started Hemoglobin with initial drop but stable since (Had incidental findings on CT during admission in 02/2024 at [facility] cirrhosis hypodensity in pancreatic neck hypodensity left [...] and rescheduled for June. Had EGD at [facility] in fall 2023 showing gastritis at that time also had treatment for radiation proctitis. Admitted here in February 2024 with bloody stool. Had APC therapy. Rectal mesalamine started Hemoglobin with initial drop but stable since (Had incidental findings on CT during admission in 02/2024 at [facility] cirrhosis hypodensity in pancreatic neck hypodensity left [...] and rescheduled for June. Had EGD at [facility] in fall 2023 showing gastritis at that time also had treatment for radiation proctitis. Admitted here in February 2024 with bloody stool. Had APC therapy. Rectal mesalamine started Hemoglobin with initial drop but stable since (Had incidental findings on CT during admission in 02/2024 at [facility] cirrhosis hypodensity in pancreatic neck hypodensity left [...] and rescheduled for June. Had EGD at [facility] in fall 2023 showing gastritis at that time also had treatment for radiation proctitis. Admitted here in February 2024 with bloody stool. Had APC therapy. Rectal mesalamine started Hemoglobin with initial drop but stable since (Had incidental findings on CT during admission in 02/2024 at [facility] cirrhosis hypodensity in pancreatic neck hypodensity left [...] and rescheduled for June. Had EGD at [facility] in fall 2023 showing gastritis at that time also had treatment for radiation proctitis. Admitted here in February 2024 with bloody stool. Had APC therapy. Rectal mesalamine started Hemoglobin with initial drop but stable since (Had incidental findings on CT during admission in 02/2024 at [facility] cirrhosis hypodensity in pancreatic neck hypodensity left [...] and rescheduled for June. Had EGD at [facility] in fall 2023 showing gastritis at that time also had treatment for radiation proctitis. Admitted here in February 2024 with bloody stool. Had APC therapy. Rectal mesalamine started Hemoglobin with initial drop but stable since (Had incidental findings on CT during admission in 02/2024 at [facility] cirrhosis hypodensity in pancreatic neck hypodensity left [...] and rescheduled for June. Had EGD at [facility] in fall 2023 showing gastritis at that time also had treatment for radiation proctitis. Admitted here in February 2024 with bloody stool. Had APC therapy. Rectal mesalamine started (Had incidental findings on CT during admission in 02/2024 at [facility] cirrhosis hypodensity in pancreatic neck hypodensity left [...] and rescheduled for June. Had EGD at [facility] in fall 2023 showing gastritis at that time also had treatment for radiation proctitis. Admitted here in February 2024 with bloody stool. Had APC therapy. Rectal mesalamine started (Had incidental findings on CT during admission in 02/2024 at [facility]. Had follow-up MRI in March reassuring, of [...] treated with this. Review of records in [facility] does not reveal a diagnosis of hemochromatosis Fe 44 ferritin 119 Assessment & Plan (05/11/2024 8:30 PM EST): Pt Reports history of hemochromatosis. She denies having had any phlebotomy for this though family members have been treated with this. Review of records in [facility] does not reveal a diagnosis of hemochromatosis Fe 44 ferritin 119 Assessment & Plan (05/10/2024 2:19 PM EST): Pt Reports history of hemochromatosis. She denies having had any phlebotomy for this though family members have been treated with this. Review of records in [facility] does not reveal a diagnosis of hemochromatosis Fe 44 ferritin 119 Assessment & Plan (05/09/2024 10:35 AM EST): Pt Reports history of hemochromatosis. She denies having had any phlebotomy for this though family members have been treated with this. Review of records in [facility] does not reveal a diagnosis of hemochromatosis Fe 44 ferritin 119 Assessment & Plan (05/08/2024 6:41 PM EST): Pt Reports history of hemochromatosis. She denies having had any phlebotomy for this though family members have been treated with this. Review of records in [facility] does not reveal a diagnosis of hemochromatosis Fe 44 ferritin 119 Assessment & Plan (05/07/2024 4:54 PM EST): Pt Reports history of hemochromatosis. She denies having had any phlebotomy for this though family members have been treated with this. Review of records in [facility] does not reveal a diagnosis of hemochromatosis This week iron panel checked, Fe 44 ferritin 119 Assessment & Plan (05/06/2024 10:20 AM EST): Pt Reports history of hemochromatosis. She denies having had any phlebotomy for this though family members have been treated with this. Review of records in [facility] does not reveal a diagnosis of hemochromatosis This week iron panel checked, Fe 44 ferritin 119 Assessment & Plan (05/05/2024 4:47 PM EST): Pt Reports history of hemochromatosis. She denies having had any phlebotomy for this though family members have been treated with this. Review of records in [facility] does not reveal a diagnosis of hemochromatosis This week iron panel checked, Fe 44 ferritin 119 Assessment & Plan (05/04/2024 1:00 PM EST): Pt Reports history of hemochromatosis. She denies having had any phlebotomy for this though family members have been treated with this. Review of records in [facility] does not reveal a diagnosis of [...] managed medically but in May admitted to [facility] with sbo but failed conservative treatment, transferred from [facility] to [email or web address] with partial SBO with multifocal stricturing , and foci concerning for carcinomatosis At [facility] Underwent diagnostic laparoscopy, no visual evidence cancer.per [...] sent for path, no cancer) Presented to [facility] ED 08/13 with several days of abdominal pain. Also reported vomiting CT showed small bowel obstruction with transition point involving distal small bowel loops in the pelvis, cirrhotic liver with small volume ascites [facility] surgeon contacted, said patient could transfer but pt declined. Patient seen by [facility] surgeon. Admitted w/ conservative treatment -n.p.o. IV [...] managed medically but in May admitted to [facility] with sbo but failed conservative treatment, transferred from [facility] to [email or web address] with partial SBO with multifocal stricturing , and foci concerning for carcinomatosis At [facility] Underwent diagnostic laparoscopy, no visual evidence cancer.per [...] sent for path, no cancer) Presented to [facility] ED 08/13 with several days of abdominal pain. Also reported vomiting CT showed small bowel obstruction with transition point involving distal small bowel loops in the pelvis, cirrhotic liver with small volume ascites [facility] surgeon contacted, said patient could transfer but pt declined. Patient seen by [facility] surgeon. Admitted w/ conservative treatment -n.p.o. IV [...] managed medically but in May admitted to [facility] with sbo but failed conservative treatment, transferred from [facility] to [email or web address] with partial SBO with multifocal stricturing , and foci concerning for carcinomatosis At [facility] Underwent diagnostic laparoscopy, no visual evidence cancer.per [...] sent for path, no cancer) Presented to [facility] ED 08/13 with several days of abdominal pain. Also reported vomiting CT showed small bowel obstruction with transition point involving distal small bowel loops in the pelvis, cirrhotic liver with small volume ascites [facility] surgeon contacted, said patient could transfer but pt declined. Patient seen by [facility] surgeon. Admitted w/ conservative treatment -n.p.o. IV [...] managed medically but in May admitted to [facility] with sbo but failed conservative treatment, transferred from [facility] to [email or web address] with partial SBO with multifocal stricturing , and foci concerning for carcinomatosis At [facility] Underwent diagnostic laparoscopy, no visual evidence cancer.per [...] sent for path, no cancer) Presented to [facility] ED 08/13 with several days of abdominal pain. Also reported vomiting CT showed small bowel obstruction with transition point involving distal small bowel loops in the pelvis, cirrhotic liver with small volume ascites [facility] surgeon contacted, said patient could transfer but pt declined. Patient seen by [facility] surgeon. Admitted w/ conservative treatment -n.p.o. IV [...] managed medically but in May admitted to [facility] with sbo but failed conservative treatment, transferred from [facility] to [email or web address] with partial SBO with multifocal stricturing , and foci concerning for carcinomatosis At [facility] Underwent diagnostic laparoscopy, no visual evidence cancer.per [...] sent for path, no cancer) Presented to [facility] ED 6 with several days of abdominal pain. Also reported vomiting CT showed small bowel obstruction with transition point involving distal small bowel loops in the pelvis, cirrhotic liver with small volume ascites [facility] surgeon contacted, said patient could transfer but pt declined. Patient seen by [facility] surgeon. Admitted w/ conservative treatment -n.p.o. IV [...] managed medically but in May admitted to [facility] with sbo but failed conservative treatment, transferred from [facility] to [email or web address] with partial SBO with multifocal stricturing , and foci concerning for carcinomatosis At [facility] Underwent diagnostic laparoscopy, no visual evidence cancer.per [...] sent for path, no cancer) Presented to [facility] ED 08/13 with several days of abdominal pain. Also reported vomiting CT showed small bowel obstruction with transition point involving distal small bowel loops in the pelvis, cirrhotic liver with small volume ascites [facility] surgeon contacted, said patient could transfer but pt declined. Patient seen by [facility] surgeon. Admitted w/ conservative treatment -n.p.o. IV [...] managed medically but in May admitted to [facility] with sbo but failed conservative treatment, transferred from [facility] to [email or web address] with partial SBO with multifocal stricturing , and foci concerning for carcinomatosis At [facility] Underwent diagnostic laparoscopy, no visual evidence cancer.per [...] sent for path, no cancer) Presented to [facility] ED 6/5 with several days of abdominal pain. Also reported vomiting CT showed small bowel obstruction with transition point involving distal small bowel loops in the pelvis, cirrhotic liver with small volume ascites [facility] surgeon contacted, said patient could transfer but pt declined. Patient seen by [facility] surgeon. Admitted w/ conservative treatment -n.p.o. IV [...] managed medically but in May admitted to [facility] with sbo but failed conservative treatment, transferred from [facility] to [email or web address] with partial SBO with multifocal stricturing , foci concerning for carcinomatosis At [facility] Underwent diagnostic laparoscopy, no cancer.. 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 Surgeon did not intervene at all.. At that time also had cystoscopy and placement of ureteral stents. Since removed Presented to [facility] ED 6/5 with several days of abdominal pain. Also reported vomiting CT showed small bowel obstruction with transition point involving distal small bowel loops in the pelvis, cirrhotic liver with small volume ascites [facility] surgeon contacted, said patient could transfer but pt declined. Patient seen by [facility] surgeon. Admitted w/ conservative treatment -n.p.o. IV [...] in May failed conservative treatment, transferred from [facility] to [facility]. CT with partial SBO with multifocal stricturing , foci concerning for carcinomatosis Underwent diagnostic laparoscopy, no cancer.. 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 Surgeon did not intervene at all.. At that time also had cystoscopy and placement of ureteral stents. Presented to [facility] ED 08/13 with several days of abdominal pain. Also reported vomiting CT showed small bowel obstruction with transition point involving distal small bowel loops in the pelvis, cirrhotic liver with small volume ascites [facility] surgeon contacted, felt patient could transfer but pt declined. Patient seen by [facility] surgeon. Admitted. Plan for conservative treatment n.p.o. IV fluid bowel rest. Patient seems improved today. Diet changes per surgery (When were r stents removed?) Assessment & Plan (08/13/2024 11:18 PM EDT): This is a 74-year-old female with an extensive history of cirrhosis, colon cancer status post radiation and numerous SBO's who recently underwent diagnostic laparoscopy and cystoscopy placement with ureteral stent at [facility] in May for recurrent small bowel obstruction. [...] that they felt she could stay at [facility] Plan Bowel rest Surgical consult initiated in the emergency department IV fluid Follow labs vital signs and serial exams Antiemetics analgesics [id number] surgeon felt patient could transfer but she [...] transfer for surgical management. Call out to [facility] transfer line, requesting facility with SICU. - [...] Plan (08/22/2024 11:53 AM EDT): Sees a monomer recovery operator regularly. Has an appointment scheduled soon Assessment & Plan (08/21/2024 9:17 AM EDT): Sees a monomer recovery operator regularly. Has an appointment scheduled soon Assessment & Plan (08/20/2024 1:01 PM EDT): Sees a monomer recovery operator regularly. Has an appointment scheduled soon Assessment & Plan (08/19/2024 4:10 PM EDT): Sees a monomer recovery operator regularly. Has an appointment scheduled soon Assessment & Plan (08/18/2024 3:17 PM EDT): Sees a monomer recovery operator regularly. Has an appointment scheduled soon Assessment & Plan (08/17/2024 3:45 PM EDT): Sees a monomer recovery operator regularly. Has an appointment scheduled soon Assessment & Plan (08/16/2024 12:50 PM EDT): Sees a monomer recovery operator regularly. Has an appointment scheduled soon Assessment [...] have gastritis on her EGD done at [place] recently. She says the epigastric discomfort is not new Assessment & Plan (02/27/2024 6:24 PM EST): Continue pantoprazole 40 mg twice daily, added sucralfate. Patient complains of some epigastric discomfort. She did have gastritis on her EGD done at [place] recently. She says the epigastric discomfort is not new Assessment & Plan (02/26/2024 10:40 PM EST): Continue pantoprazole 40 mg twice daily, added sucralfate. Patient complains of some epigastric discomfort. She did have gastritis on her EGD done at [place] recently. She says the epigastric discomfort is not new Assessment & Plan (02/25/2024 3:29 PM EST): Continue pantoprazole 40 mg twice daily, added sucralfate. Patient complains of some epigastric discomfort. She did have gastritis on her EGD done at [place] recently. She says the epigastric discomfort is [...] - 08/23/2024 4:32 PM EDT Hospital Encounter [facility] [address] [place] [address] Sergey Alejo MD Miskovsky, MD Paul Pompa, MD Tennille Saunders Eli, MD Green, Ruthie Farley MD Discharge Disposition: Home or Self Care 08/13/2024 Procedure Pass [facility], Ct Scan - [facility] [address] [place] [address] from Last 3 Months Social History Tobacco [...] VACCINE ( - 2023-2 5 season) 2023 INFLUENZA VACCINE (#1) 2024 SMOKING STATUS SCREENING (On ce After 26 [...] AND DIFFERENTIAL STAT 08/13/2024 7:14 AM EDT from Last 3 Months Results * (ABNORMAL) CBC and differential (08/22/2024 6:25 AM EDT) Only the most recent of3 resultswithin the time period is included. WBC 7.61 4.00 - 11.00 K/uL [facility] RBC 3.01(L) 4.00 - 5.20 M/uL [facility] HGB 9.7(L) 12.0 - 16.0 g/dL [facility] HCT 30.5(L) 36.0 - 46.0 % [facility] PLT 203 150 - 450 K/uL [facility] MCV 101.3(H) 80.0 - 100.0 fL [facility] MCH 32.2(H) 27.0 - 31.0 pg [facility] MCHC 31.8(L) 32.0 - 36.0 g/dL [facility] RDW 15.5(H) 11.5 - 14.5 % [facility] MPV 8.9 8.4 - 12.0 fL [facility] NRBC 0.00 0.00 /100 WBCs [facility] ABSOLUTE NRBC 0.00 0.00 K/uL [facility] DIFF METHOD Auto [facility] NEUTS 70.1 48.0 - 76.0 % [facility] LYMPHS 18.8 18.0 - 41.0 % [facility] MONOS 7.5 4.0 - 11.0 % [facility] EOS 2.8 0.0 - 5.0 % [facility] BASOS 0.3 0.0 - 1.5 % [facility] Granulocytes, immature (%) 0.5 0.0 - 0.9 % [facility] ABSOLUTE NEUTS 5.34 1.92 - 7.60 K/uL [facility] ABSOLUTE LYMPHS 1.43 0.72 - 4.10 K/uL [facility] ABSOLUTE MONOS 0.57 0.16 - 1.10 K/uL [facility] ABSOLUTE EOS 0.21 0.00 - 0.50 K/uL [facility] ABSOLUTE BASOS 0.02 0.00 - 0.15 K/uL [facility] Granulocytes, immature 0.04 0.00 - 0.09 K/uL [facility] Blood 08/22/2024 6:25 AM EDT 08/22/2024 6:28 AM EDT us Ruthie Ernst MD LAB BLOOD ORDERABLES Final Resu lt Performing Organization Address City/[facility]/ZIP Co de Phone Number [address] [id number] * Basic metabolic panel (08/22/2024 6:25 AM EDT) Only the most recent of8 resultswithin the time period is included. SODIUM 136 133 - 146 mmol/L [facility] CHLORIDE 100 96 - 108 mmol/L [facility] POTASSIUM 3.6 3.3 - 5.1 mmol/L [facility] CO2 30 21 - 35 mmol/L [facility] BUN 11 6 - 19 mg/dL [facility] CREATININE 0.60 0.5 - 1.5 mg/dL [facility] GLUCOSE 96 70 - 99 mg/dL [facility] CALCIUM 8.8 8.4 - 10.3 mg/dL [facility] EGFR 93 >59 mL/min/1.7 3m2 [facility] Comment:Estimated glomerular filtration rate calculated using the CKD-EPI refit equation. ANION GAP 10 10 - 20 mmol/L [facility] Blood 08/22/2024 6:25 AM EDT 08/22/2024 6:28 AM EDT us Ruthie Ernst MD LAB BLOOD ORDERABLES Final Resu lt [address] [address] * (ABNORMAL) POCT Glucose (08/20/2024 11:50 AM EDT) Glucose, POCT 105(H) 70 - 100 mg/dL [facility] 08/20/2024 11:5 0 AM EDT 08/20/2024 11:52 AM EDT us Ruthie Ernst MD POINT OF CARE TEST ORDERABLES F inal Result Performing Organization Address [facility]/ZIP Co de Phone Number [address] [address] * (ABNORMAL) CBC (08/19/2024 5:24 AM EDT) WBC 5.12 4.00 - 11.00 K/uL [facility] RBC 2.91(L) 4.00 - 5.20 M/uL [facility] HGB 9.3(L) 12.0 - 16.0 g/dL [facility] HCT 30.0(L) 36.0 - 46.0 % [facility] PLT 130(L) 150 - 450 K/uL [facility] MCV 103.1(H) 80.0 - 100.0 fL [facility] MCH 32.0(H) 27.0 - 31.0 pg [facility] MCHC 31.0(L) 32.0 - 36.0 g/dL [facility] RDW 14.9(H) 11.5 - 14.5 % [facility] MPV 9.6 8.4 - 12.0 fL [facility] NRBC 0.00 0.00 /100 WBCs [facility] ABSOLUTE NRBC 0.00 0.00 K/uL [facility] Blood 08/19/2024 5:24 AM EDT 08/19/2024 6:11 AM EDT us Ida Null MD LAB BLOOD ORDERABLES Final Result [address] [address] * (ABNORMAL) Phosphorus (08/19/2024 5:24 AM EDT) Only the most recent of2 resultswithin the time period is included. PHOSPHORUS 2.2(L) 2.7 - 4.5 mg/dL [facility] Blood 08/19/2024 5:24 AM EDT 08/19/2024 6:11 AM EDT Ida Null MD LAB BLOOD ORDERABLES Final Result Performing Organization Address [facility] Co de Phone Number [address] [address] * Magnesium (08/19/2024 5:24 AM EDT) Only the most recent of4 resultswithin the time period is included. Pathologist [facility] MAGNESIUM 1.6 1.6 - 2.6 mg/dL [facility] Blood 08/19/2024 5:24 AM EDT 08/19/2024 6:11 AM EDT Ida Null MD LAB BLOOD ORDERABLES Final Result Performing Organization Address [facility] de Phone Number [address] [address] * (ABNORMAL) Hemoglobin (08/15/2024 5:42 AM EDT) [facility] HGB 9.0(L) 12.0 - 16.0 g/dL [facility] Blood 08/15/2024 5:42 AM EDT 08/15/2024 6:00 AM EDT Lo Miller MD LAB BLOOD ORDERABLES Final Re sult Performing Organization Address [facility] de Phone Number [address] [address] * (ABNORMAL) MRSA PCR SCREEN (08/14/2024 5:30 AM EDT) Pathologist [facility] MRSA PCR SCREEN Positive(A ) Negative [facility] Comment:The Xpert MRSA Assay is intended to aid in the prevention and control of MRSA infections in healthcare settings. The assay is not intended to diagnose nor to guide or monitor treatment for MRSA infections. 08/14/2024 5:30 AM EDT 08/14/2024 6:35 AM EDT us Lo Miller MD NON CULTURE MICROBIOLOGY Lupis farley Result Performing Organization Address City/[facility]/ZIP Co de Phone Number [address] [address] * (ABNORMAL) Comprehensive metabolic panel (08/14/2024 5:12 AM EDT) SODIUM 135 133 - 146 mmol/L [facility] POTASSIUM 4.4 3.3 - 5.1 mmol/L [facility] CHLORIDE 102 96 - 108 mmol/L [facility] CO2 23 21 - 35 mmol/L [facility] BUN 18 6 - 19 mg/dL [facility] CREATININE 0.60 0.5 - 1.5 mg/dL [facility] GLUCOSE 88 70 - 99 mg/dL [facility] ALBUMIN 3.0(L) 3.9 - 4.8 g/dL [facility] TOTAL PROTEIN 6.9 6.5 - 8.0 g/dL [facility] CALCIUM 8.4 8.4 - 10.3 mg/dL [facility] ALKALINE PHOSPHATASE 114 39 - 117 U/L [facility] TOTAL BILIRUBIN 0.5 0.0 - 1.2 mg/dL [facility] AST 32 0 - 37 U/L [facility] ALT 19 0 - 40 U/L [facility] GLOBULIN 3.9 1 - 4.8 g/dL [facility] EGFR 93 >59 mL/min/1.7 3m2 [facility] Comment:Estimated glomerular filtration rate calculated using the CKD-EPI refit equation. ANION GAP 14 10 - 20 mmol/L [facility] Blood 08/14/2024 5:12 AM EDT 08/14/2024 5:29 AM EDT us Anaya Valdez EMERGENCY SPILL RESPONSE TECHNICIAN LAB BLOOD ORDERABLES Fi nal Result Performing Organization Address City/[facility]/ZIP Co de Phone Number [address] [address] * (ABNORMAL) Urinalysis w/reflex Urine Culture (08/13/2024 9:02 AM EDT) COLOR Yellow Yellow [facility] CLARITY Clear [facility] GLUCOSE Negative Negative [facility] BILI Negative Negative [facility] KETONES Negative Negative [facility] SPECIFIC GRAVITY 1.025 1.005 - 1.030 [facility] BLOOD 1+(A) Negative [facility] PH 6.0 5.0 - 8.0 [facility] Protein-UA Negative Negative [facility] NITRITE Negative Negative [facility] Leukocyte esterase, ur Negative Negative [facility] Urine (Urine) 08/13/2024 9:0 2 AM EDT 08/13/2024 9:16 AM EDT Sergey Alejo MD URINE ORDERABLES F inal Result Performing Organization Address [facility]/ZIP Co de Phone Number [address] [address] * (ABNORMAL) Urine sediment (08/13/2024 9:02 AM EDT) WBC 0-4(A) NONE SEEN /hpf [facility] RBC 6-10(A) NONE SEEN /hpf [facility] URINE EPITHELIAL 0-4(A) NONE SEEN [facility] MUCUS Trace(A) NONE SEEN /hpf [facility] BACTERIA Trace(A) NONE SEEN /hpf [facility] 08/13/2024 9:02 AM EDT 08/13/2024 9:16 AM EDT Sergey Alejo MD URINE ORDERABLES F inal Result Performing Organization Address [facility]/ZIP Co de Phone Number [address] [address] * CT ABDOMEN/PELVIS WITHOUT CONTRAST (08/13/2024 8:02 AM EDT) Anatomical Region Laterality Modality Abdomen, Pelvis Computed Tomogra phy 08/13/2024 9:1 0 AM EDT Impressions 08/13/2024 9:58 AM EDT [...] provided indication for this examination in Epic: * Abdominal distension TECHNIQUE: Multidetector-row CT of [...] clinician's provided indication for this examination in [facility]: *Abdominal distension TECHNIQUE: Multidetector-row CT [...] LFTs (hepatic panel) (08/13/2024 7:14 AM EDT) ALKALINE PHOSPHATASE 166(H) 39 - 117 U/L [facility] TOTAL BILIRUBIN 0.3 0.0 - 1.2 mg/dL [facility] DIRECT BILIRUBIN 0.1 0.0 - 0.2 mg/dL [facility] Bilirubin (Indirect) NOT CALCULATED 0 - 1.5 mg/dL [facility] AST 47(H) 0 - 37 U/L [facility] ALT 27 0 - 40 U/L [facility] TOTAL PROTEIN 8.3(H) 6.5 - 8.0 g/dL [facility] ALBUMIN 3.5(L) 3.9 - 4.8 g/dL [facility] GLOBULIN 4.8 1 - 4.8 g/dL [facility] A/G Ratio 0.73(L) 1.00 - 4.80 RATIO [facility] Blood 08/13/2024 7:14 AM EDT 08/13/2024 7:19 AM EDT Sergey Alejo MD LAB BLOOD ORDERABL ES Final Result [address] [address] * Lactate (08/13/2024 7:14 AM EDT) LACTATE 0.93 0.50 - 2.20 mmol/L [facility] Blood 08/13/2024 7:14 AM EDT 08/13/2024 7:19 AM EDT Sergey Alejo MD LAB BLOOD ORDERABL ES Final Result Performing Organization Address [facility] Co de Phone Number [address] [address] from Last 3 Months Additional Health Concerns Infection Onset Date Last Indicated 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 08/14/2024 Insurance MEDICARE PART A & B [facility] MEDIC[facility] PART A & [facility] MED[facility] PART [place] & B [place] [facility] [place] [facility] [place] [facility] MEDICARE PART A & B HEALTH MEDICARE PART A & B [id number] [place], [place] [address] [id number] MEDICARE PART A & B [facility] [place] [id number] Advance Directives For more information, please contact: [phone] (9AM - 5PM [facility], Saturday-Saturday) * Full Code (Latest Code Status [...] Status Communicated To: Inpatient Attending Care Teams Lot Porter Relationship Specialty Start Date End Date Catie Isabel NP [address] [place] [address] PCP - General Nurse Practitioner 02/22/24 Additional Source Comments The information contained in this document represents components of the legal health record. It is not the complete legal health record.[facility]
--- OUTSIDE RECORDS SUMMARY | 2024-11-12 16:27 | XMS_ITS | Patient Health Record ---
Author Organization [facility] Address [address] [place] [id number] Care Team Providers Care Machine Binding Folder Name Role Phone Leyla Gonsales Unavailable [phone] Reason For Referral No Information Plan Of Treatment No Information Insurance Providers Payer Name Payer Address Payer Phone Subscriber Number Group Number Insured Name Patient Relationship to Insured Coverage Start Date Coverage End Date MEDICARE [address] [place], [place] [id number] VINCENZO URBANO Self - patient is the insured
--- OUTSIDE RECORDS SUMMARY | 2024-11-12 16:27 | XMS_ITS | Encounter Summary ---
Author Organization [facility] Address [address] [place] [address] Phone Care Team Providers Care Room Inspector Name Role Phone Catie Isabel BOOKBINDING MACHINE OPERATOR Primary Care Provider [phone] Encounter Details Date Type Department Care Team (Late st Contact Info) Description 08/13/2024 Procedure Pass [facility], Ct Scan - [address] [address] Social History Tobacco Use Types Packs/Day Years Used Date Smoking Tobacco: Never Smokeless Tobacco: Never Alcohol Use Standard Drinks/Week Comments Not Currently [...] PM EST Sexual Orientation Not on file documented as of this encounter Functional Status * Calculated C-SSRS Risk Score (Lifetime/Recent) Answer Date of Assessment Author No Risk Indicated 08/13/2024 6:44 AM Horacio Cohen RN * [place] Suicide Severity Rating Scale (Screener/Recent Self-Report) Question Answer Date of Assessment Author 1. Wish to be (Past 1 Month) No 025 6:44 AM Alexander Cohen RN 2. Non-Specific Active Suici tamir Thoughts (Past 1 Month) No 08/13/2024 6:44 AM Alexander Cohen RN 6. Suicidal Behavior (Lifetime) No 6:44 AM Alexander Cohen RN documented as of this encounter Plan of Treatment Not on file documented as of this encounter Visit Diagnoses Not on filedocumented in this encounter Additional Health Concerns Infection Onset Date Last Indicated Resolved Time 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 08/14/2024 documented as of this encounter Care Teams Room Inspector Relationship Specialty Start Date End Date Catie Isabel NP [address] [place] [address] PCP - General Nurse Practitioner 02/22/24 documented as of this encounter Additional Source Comments The information contained in this document represents components of the legal health record. It is not the complete legal health record.[facility]
--- OUTSIDE RECORDS SUMMARY | 2024-11-12 16:27 | XMS_ITS | Encounter Summary ---
Author Organization [facility] Address [address] [place] [address] Care Team Providers Care Nematologist Name Role Phone Catie Isabel NP Primary Care Provider [phone] Reason for Visit * Reason Onset Date Comments Results 11/11/2024 Encounter Details Date Type Department Care Team ([facility] Contact Info) Description 11/11/2024 Telephone Internal Medicine - [address] [place] [address] Xochitl Degroot MA Social History Tobacco Use Types Packs/Day Years Used Date Smoking Tobacco: Never Alcohol Use Standard Drinks/Week Comments No 0 (1 standard drink = 0.6 oz pur e alcohol) Comments No Sex and Gender Information Value Date Recorded Sex Assigned at Female 09/08/2024 3:52 PM EDT Legal Sex Female 2:55 PM EST Gender Identity Female 09/08/2024 3:52 PM EDT Sexual Orientation Straight 09/08/2024 3: 52 PM EDT documented as of this encounter Progress Notes * Xochitl Degroot MA - 11/11/2024 11:44 AM EDT Pts sister Maile returned call and was given results of Ct scan. She will call pts GI and give him results. * Xochitl Degroot MA - 11/11/2024 11:00 AM EDT Lvm to return call forward to ext [phone] or A side * Xochitl Degroot MA - 11/11/2024 11:00 AM EDT ----- Message from A CHANCE Isabel sent at 11/10/2024 12:02 PM EDT ----- There is an abnormality on the CT this patient had done in September, with thickening in the gastroesophageal junction and enlarged lymph nodes. An endoscopy was recommended for further evaluation. I knowthe patient does follow with GI, I just want to make her aware of this finding in case she was not told about it yet and make sure she is following up with GI for recommended testing. ----- Message ----- From: Sowmya Cardoso RN Sent: 11/06/2024 6:17 PM EDT To: Catie Isabel NP FIND is tracking this radiology exam. Follow-up is recommended with an ENDOSCOPY if appropriate. Please reply: __Addressed with patient-no follow-up required __Follow-up imaging/consult ordered __Follow-up completed Thank you! [facility] FIND (Following Incidental Disease) Program [phone] N [phone] documented in this encounter Plan of Treatment Upcoming Encounters Date Type Department Care Team (Late st Contact Info) Description 01/25/2025 12:45 PM EST Ancillary Procedure [address] [phone] 01/28/2025 2:45 PM EST Office Visit [address] [phone] Marisa Viveros MD [address] [address] documented as of this encounter Visit Diagnoses Not on filedocumented in this encounter Additional Health Concerns Assessment Noted Time PHQ-9 Depression Total Score: 0 01/16/20 2:37 PM EST A fall risk assessment has been complete d for the patient 01/16/2024 2:32 PM EST documented as of this encounter Care Teams Nematologist Relationship Specialty Start Date End Date Catie Isabel NP [address] [place] [address] PCP - General 09/30/23 documented as of this encounter
--- OUTSIDE RECORDS SUMMARY | 2024-11-12 16:27 | XMS_ITS | Encounter Summary ---
Author Organization [facility] Address [address] [place] [address] Care Team Providers Care Set Up Technician Name Role Phone Catie Isabel NP Primary Care Provider [phone] Reason for Visit * Reason Onset Date Comments call back 11/11/2024 Encounter Details Date Type Department Care Team ([facility] Contact Info) Description 11/11/2024 [facility]phone [facility] [place] [address] [address] Marisa Viveros MD [address] [address] Social History Tobacco Use Types Packs/Day Years [...] as of this encounter Progress Notes * Rosie Alston - 11/11/2024 4:34 PM EDT Patients sister Maile is calling because she would like to know the results of patients testing . I did inform her the only testing she had done was a pft in September. She is asking if provider can give her a call to go over results because sister was denied for falls church program. She is aware provider won't be in office until Saturday. Please advise documented in this encounter Plan of Treatment Upcoming Encounters Date Type Department Care Team (Late st Contact Info) Description 01/25/2025 12:45 PM EST Ancillary Procedure [facility] [address] [phone] 01/28/2025 2:45 PM EST Office Visit [facility] [address] [phone] Marisa Viveros MD [address] [address] documented as of this encounter Visit Diagnoses Not on filedocumented in this encounter Additional Health Concerns Assessment Noted Time PHQ-9 Depression Total Score: 0 01/16/20 2:37 PM EST A fall risk assessment has been complete d for the patient 01/16/2024 2:32 PM EST documented as of this encounter Care Teams Set Up Technician Relationship Specialty Start Date End Date Catie Isabel NP [address] [place] [address] PCP - General 09/30/23 documented as of this encounter
--- OUTSIDE RECORDS SUMMARY | 2024-11-12 16:28 | XMS_ITS | Encounter Summary ---
Author Organization [facility] Address [address] [place] [address] Phone Care Team Providers Care Sole Conforming Machine Operator Name Role Phone Catie Isabel AUTO BODY BUILDER APPRENTICE Primary Care Provider [phone] Encounter Details Date Type Department Care Team (Late st Contact Info) Description 07/11/2024 Procedure Pass [facility], Ct Scan - [address] [address] Social History Tobacco Use Types Packs/Day Years [...] got money to buy more. Never True 05/13/2024 Within the past 6 months the food we bought just didn't last and we didn't have enough money to get more. Never True Residential Stability Answer Date Recor ded What is your housing situation today? I have jozef sing 05/13/2024 How many times have you move d in the past 12 months? Zero (I did not move) 05/13/2024 Paying for Meds Answer Date Recorded Do you have trouble paying for medicines? No 05/13/2024 Paying Utility Bills Answer Date Record ed Do you have trouble paying your heating or elect ricity bill? No 05/13/2024 Transportation Answer Date Recorded Has the lack of transportati on kept you from medical appointments or from getting medications? No 05/13/2024 Digital Access Answer Date Recorded Yes 05/13/2024 Yes 05/13/2024 Do you have reliable internet access at home? No 05/13/2024 Do you have a device (e.g., phone, tablet, computer) with a working camera? Yes 05/13/2024 Intimate Partner Violence Answer Date R ecorded Are you denied basic needs s uch as food, clothing, or medical care? No 07/11/2024 In the past 12 months have y ou been in a relationship with a person who hurts, threatens, or tries to control you? No 07/11/2024 Are you denied basic needs s uch as food, clothing, or medical care? No 07/11/2024 In the past 12 months have y ou been in a relationship with a person who hurts, threatens, or tries to control you? No 07/11/2024 Comments No Sex and Gender Information Value Date Recorded Sex Assigned at Female 04/28/2024 1:10 PM EST Legal Sex Female 7:55 PM EST Gender Identity Female 04/28/2024 1:10 PM EST Sexual Orientation Not on file documented as of this encounter Functional Status * Calculated C-SSRS Risk Score (Lifetime/Recent) Answer Date of Assessment Author No Risk Indicated 07/11/2024 9:31 PM Meg Ortiz RN * [place] Suicide Severity Rating Scale (Screener/Recent Self-Report) Question Answer Date of Assessment Author 1. Wish to be (Past 1 Month) No 025 9:31 PM Meg Ortiz RN 2. Non-Specific Active Suici tamir Thoughts (Past 1 Month) No 07/11/2024 9:31 PM Ericka Ortiz, JALEEL 6. Suicidal Behavior (Lifetime) No 9:31 PM Meg Ortiz, JALEEL documented as of this encounter Plan of Treatment Not on file documented as of this encounter Visit Diagnoses Not on filedocumented in this encounter Additional Health Concerns Infection Onset Date Last Indicated Resolved Time 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 08/14/2024 documented as of this encounter Care Teams Sole Conforming Machine Operator Relationship Specialty Start Date End Date Caite Isabel NP [address] [place] [address] PCP - General Nurse Practitioner 02/22/24 documented as of this encounter Additional Source Comments The information contained in this document represents components of the legal health record. It is not the complete legal health record.[facility]
--- OUTSIDE RECORDS SUMMARY | 2024-11-12 16:28 | XMS_ITS | Clinical Summary ---
Author Organization [address] [facility] [address] Address [address] [place] [phone] Phone Care Team Providers Care Waistline Joiner Lockstitch Name Role Phone Catie Isabel NP Primary Care Provider [phone] Allergies Active Allergy Reactions Criticality Noted Date Comments Ciprofloxacin 06/22/2024 lips swelling Diatrizoate Rebeka-Diatrizoat Sod 05/22 Medications Ventolin HFA 90 mcg/actuation inhaler Inhale 2 puffs by mouth 1 (one) time each day. 6.7 g 3 2024 Active fluticasone propionate (FLONASE) 50 mcg/actuation nasal spray Administer 2 sprays into each nostril 1 (one) time each day. Shake gently. Before first use, prime pump. After use, clean tip and replace cap. 16 g 5 06/05 Active fluticasone furoate-vilanter oL (Breo Ellipta) 200-25 mcg/dose inhalerIndicatio ns:Chronic bronchitis, unspecified chronic bronchitis type (CMS/HCC V24, CMS/HCC V28) Inhale 1 puff by mouth 1 (one) time each day. 3 each 3 07/10 Active ondansetron ODT (ZOFRAN-ODT) 4 mg disintegrating tabletIndication s:SBO (small bowel obstruction) (CMS/HCC V24, CMS/HCC V28) Dissolve 1 tablet (4 mg total) on top of the tongue every 8 (eight) hours if needed for nausea or vomiting. 20 tablet 2024 Active polyethylene glycol (MIRALAX) 17 gram packet Take 17 g by mouth 1 (one) time each day. 510 g 2 11/25 Active mesalamine (CANASA) 1,000 mg suppository Insert 1 suppository (1,000 mg total) into the rectum at bedtime. Use as directed 90 suppository 2024 Active ipratropium-albu teroL (DUONEB) 0.5-2.5 mg/3 mL nebulizer solution TAKE 3 ML BY NEBULIZER EVERY 6 HOURS NEEDED FOR WHEEZE 360 mL 11 2024 Active HYDROcodone-acet aminophen (NORCO) 5-325 mg per tabletIndication s:Primary osteoarthritis involving multiple joints Take 1 tablet by mouth 2 (two) times a day if needed for severe pain. Max Daily Amount: 2 tablets 56 tablet 2024 Active gabapentin (NEURONTIN) 300 mg capsule Take 1 capsule (300 mg total) by mouth 3 (three) times a day if needed (back pain). 2024 Active LORazepam (ATIVAN) 1 mg tablet Take 1 tablet (1 mg total) by mouth 2 (two) times a day if needed for anxiety. Max Daily Amount: 2 mg 56 tablet 2024 Active umeclidinium (Incruse Ellipta) 62.5 mcg/actuation inhalation Inhale 1 puff by mouth 1 (one) time each day. 1 each 2 02/08 Active predniSONE (DELTASONE) 10 mg tablet Take 2 tablets (20 mg total) by mouth See administration instructions. 30 tablet 10/25 tiotropium (Spiriva Respimat) 2.5 mcg/actuation inhalation spray Inhale 2 puffs by mouth 1 (one) time each day. 1 each 12 11/10 Discontinued Active Problems Problem Noted Date Diagnosed Date Bowel incontinence 09/18/2024 Pelvic pain 09/18/2024 Disorder of rotator cuff 09/18/2024 Hypovitaminosis D 09/18/2024 Malignant neoplasm of vagina (CMS/HCC V24, CMS/H CC V28) 09/18/2024 Obesity 09/18/2024 Skin excoriation 09/18/2024 PMB (postmenopausal bleeding) 09/18/2024 Vaginal bleeding 09/18/2024 Vulvar itching 09/18/2024 IPMN (intraductal papillary mucinous neoplasm) 0 08/15/2024 Cirrhosis (CMS/HCC V24, [facility]/HCC V28) 08/14/2024 Shingles 08/13/2024 Interstitial lung disease (CMS/HCC V24, CMS/HCC V28) 07/20/2024 Recurrent intestinal obstruction (CMS/HCC V24, [facility]/HCC V28) 07/20/2024 Anemia 04/29/2024 Hyponatremia 02/22/2024 Primary osteoarthritis involving multiple joints 10/09/2023 Primary osteoarthritis of right shoulder 024 Anxiety 10/01/2023 Allergic rhinitis 09/24/2018 Aortic atherosclerosis ([facility] V24) 09/24/2018 Diverticulosis 09/24/2018 Elevated LFTs 09/24/2018 GERD (gastroesophageal reflux disease) 9 Hemochromatosis, hereditary ([facility] V24) 2018 Hypertension 09/24/2018 IBS (irritable bowel syndrome) 09/24/2018 Intrahepatic bile duct dilation 09/24/2018 Overview (12/25/2023): 03/2018 CT & common bile duct (1.5 cm), Both Stable JUAN (nonalcoholic steatohepatitis) 09/24/2018 Osteoarthritis 09/24/2018 Overview (12/25/2023): Thoracic, & Lumbosacral Spine, Hips Osteopenia 09/24/2018 Pancreatic insufficiency 09/24/2018 Pancreatitis 09/24/2018 Overview (12/25/2023): history Tubular adenoma 09/24/2018 Overview (12/25/2023): 12/2014 CN Tubular adenoma of colon 09/11/2016 Overview (09/18/2024): repeat screening colonoscopy in 2021 Strain of left rotator cuff capsule 05/01/2015 Overview (09/18/2024): IMO 2016 R2.1 update change Strain of right rotator cuff capsule 05/01/2015 Overview (09/18/2024): IMO 2016 R2.1 update change Encounters Date Type Department Care Team Description 11/11/2024 Telephone Pulmonolgy [facility] [address] [facility] [address] [place] [phone] Marisa Viveros MD 11/11/2024 Telephone Internal Medicine - [facility] [place], [place] [phone] Xochitl Degroot MA 11/06/2024 3:30 PM EDT [facility] [address] [facility] [address] [place] [phone] Marisa Viveros MD Dyspnea, unspecified type (Primary Dx); Pulmonary fibrosis (CMS/HCC V24, CMS/HCC V28); Moderate persistent asthma, unspecified whether complicated 10/16/2024 Telephone Internal Medicine - [place] [address] [place], [place] [phone] Catie Isabel NP 10/12/2024 Telephone Internal Medicine - [facility] [address] [place], [place] [phone] Catie Isabel NP 10/06/2024 Telephone Internal Medicine - [place] [address] [place], [place] [phone] Catie Isabel NP 10/06/2024 Telephone Internal Medicine - [facility] [address] [place], [place] [phone] Catie Isabel NP 10/02/2024 Telephone Internal Medicine - [facility] [address] [place], [place] [phone] Catie Isabel NP 10/02/2024 Telephone Internal Medicine - [facility] [address] [place], [place] [phone] Catie Isabel NP 09/30/2024 2:30 PM EDT Office Visit Internal Medicine - [address] [phone] Catie Isabel, CHANCE Other cirrhosis of liver ([facility]/HCC V24, [facility]/HCC V28) (Primary Dx); Interstitial lung disease ([facility] V24, [facility] V28); IPMN (intraductal papillary mucinous neoplasm); Anemia, unspecified type 09/25/2024 3:45 PM EDT [facility] [address] [phone] Marisa Viveros MD Dyspnea, unspecified type (Primary Dx); ILD (interstitial lung disease) ([facility] V24, [facility] V28) 09/25/2024 3:30 PM EDT Procedure visit [address]mon[address] [phone] Dyspnea, unspecified type 09/24/2024 1:46 PM EDT - 09/24/2024 11:59 PM EDT Hospital Encounter [facility] CT Scan [address] [place] [phone] ILD (interstitial lung disease) ([facility] V24, [facility] V28) Discharge Disposition: Home or Self Care 09/21/2024 Telephone Gastroenterology - [place] [address] [phone] Lori Vicente NP 09/15[facility] [address] [phone] Marisa Viveros MD 09/09/2024 Telephone Pulmonolgy [facility] [address] [phone] Marisa Viveros MD 09/08/2024 10:30 AM EDT [facility] [address] [phone] Marisa Viveros MD ILD (interstitial lung disease) ([facility] V24, [facility] V28) (Primary Dx); Chronic bronchitis, unspecified chronic bronchitis type ([facility] V24, [facility] V28); Moderate persistent asthma, unspecified whether complicated; Bronchiectasis without acute exacerbation ([facility] V24, [facility] V28); Lung nodules 09/08/2024 10:15 AM EDT Clinical Support Pulmonolgy [facility] [address] [phone] Interstitial lung disease ([facility] V24, [facility] V28) (Primary Dx) 09/08/2024 Telephone Internal Medicine - [address] [phone] Catie Isabel NP 09/01/2024 3:00 PM EDT [facility] [address] [phone] Lori Vicente, CHANCE Antimitochondrial antibody positive (Primary Dx); Pancreatic cyst; History of cirrhosis of liver; Elevated alkaline phosphatase level 09/01/2024 Telephone Gastroenterology [facility] 175 [facility] [address] [phone] Lori Vicente, CHANCE 09/01/2024 [facility] [address] [phone] Marisa Viveros MD 08/31/2024 Telephone Gastroenterology [facility] 175 [facility] [address] [phone] Lori Vicente NP 08/27/2024 1:30 PM EDT Office Visit Internal Medicine - [address] [phone] Elizabeth Thorpe MD Hospital discharge follow-up (Primary Dx); Recurrent intestinal obstruction ([facility] V24, [facility] V28); Herpes zoster with other complication; Primary hypertension; Hemochromatosis, hereditary ([facility] V24); Gastroesophageal reflux disease without esophagitis; Interstitial lung disease (CMS/HCC V24, CMS/HCC V28); Primary osteoarthritis involving multiple joints; Hepatic cirrhosis, unspecified hepatic cirrhosis type, unspecified whether ascites present (CMS/HCC V24, CMS/HCC V28); Dysuria 08/27/2024 Telephone Internal Medicine - [place] [address] [place] [phone] Catie Isabel NP 08/24/2024 Telephone Internal Medicine - [place] [address] [place] [phone] Catie Isabel NP from Last 3 Months Surgical History Surgery Date Site/Laterality Comments OTHER SURGICAL HISTORY 1985 PROCEDURE: LA COLECTOMY PARTIAL W/ANASTOMOSIS; COMMENT: colon cancer COLONOSCOPY 12/2014 PROCEDURE: HISTORICAL COLONOSCOPY; COMMENT: Tubular adenoma & hyperplastic polyps, Repeat 3 yrs CHOLECYSTECTOMY 1993 PROCEDURE: HISTORICAL CHOLECYSTECTOMY APPENDECTOMY PROCEDURE: HISTORICAL APPENDECTOMY UPPER GASTROINTESTINAL ENDOSCOPY 01/2018 PROCEDURE: LA UPPER GI ENDOSCOPY PERFORMED COLONOSCOPY 1997 PROCEDURE: HISTORICAL COLONOSCOPY COLONOSCOPY 01/2018 PROCEDURE: HISTORICAL COLONOSCOPY Medical History Medical History Date Comments GERD (gastroesophageal reflux disease) 09/24/2018 DX:GERD (gastroesophageal reflux disease) Hypertension 09/24/2018 DX:Hypertension Tubular adenoma 09/24/2018 DX:Tubular adeno ma; COMMENT: 12/2014 CN Intrahepatic bile duct dilation 09/24/2018 DX:Intrahepatic bile duct dilation; COMMENT: 03/2018 CT & common bile duct (1.5 cm), Both Stable Diverticulosis 09/24/2018 DX:Diverticulosi s Aortic atherosclerosis ([facility]/HCC V24) 09/24/2018 DX:Aortic atherosclerosis (HCC) Osteoarthritis 09/24/2018 DX:Osteoarthriti s; COMMENT: Thoracic, & Lumbosacral Spine, Hips Osteopenia 09/24/2018 DX:Osteopenia IBS (irritable bowel syndrome) 09/24/2018 D X:IBS (irritable bowel syndrome) Elevated LFTs 09/24/2018 DX:Elevated LFTs Pancreatitis 09/24/2018 DX:Pancreatitis; COMMENT: history H/O small bowel obstruction 09/24/2018 DX:H /O small bowel obstruction Hemochromatosis, hereditary ([facility]/HCC V24) 09/24/2018 DX:Hemochromatosis, heredita ry (HCC) JUAN (nonalcoholic steatohepatitis) 09/24/2018 DX:JUAN (nonalcoholic steatohepatitis) Pancreatic insufficiency 09/24/2018 DX:Panc reatic insufficiency History of cancer of vagina 09/18/2018 DX:H istory of cancer of vagina; COMMENT: s/p radiation History of colon cancer 09/18/2018 DX:Histo ry of colon cancer; COMMENT: 1985 Allergic rhinitis 09/24/2018 DX:Allergic rh initis Family History Medical History Relation Name Comments Dementia Father GSW, age 6 7 Heart attack Father Other Mother GSW murder/suic aron Breast cancer Other Colon CancerDM , CAD- Siblings 9 brothers, 8 sisters Relation Name Status Comments Brother x9 Father Mother Other Sister x8 Social History Tobacco Use Types Packs/Day Years Used Date Smoking Tobacco: Never Tobacco Cessation:Counseling Given: Not Answered Alcohol Use Standard Drinks/Week Comments No 0 (1 standard drink = 0.6 oz pur e alcohol) Comments No Sex and Gender Information Value Date Recorded Sex Assigned at Female 09/08/2024 3:52 PM EDT Legal Sex Female 2:55 PM EST Gender Identity Female 09/08/2024 3:52 PM EDT Sexual Orientation Straight 09/08/2024 3: 52 PM EDT Obstetrics History Last Filed Vital Signs Vital Sign Reading Time Taken Comments Blood Pressure 100/68 11/06/2024 3:31 PM EDT Pulse 78 11/06/2024 3:31 PM EDT Temperature 36.8 C (98.2 F) 11/06/2024 3:31 PM EDT Respiratory Rate 20 09/25/2024 3:52 PM EDT Oxygen Saturation 98% 11/06/2024 3:31 PM EDT Inhaled Oxygen Concentration - - Weight 65.6 kg (144 lb 9.6 oz) 11/06/2024 3:31 P M EDT Height 157.5 cm (5' 2 ) 11/06/2024 3:31 PM EDT Body Mass Index 26.45 11/06/2024 3:31 PM EDT Plan of Treatment Upcoming Encounters Date Type Department Care Team (Late st Contact Info) Description 01/25/2025 12:45 PM EST Ancillary Procedure Pulmonolgy - [address] [place] [phone] 01/28/2025 2:45 PM EST Office Visit Pulmonolgy - [place] [address] [facility] [address] [place] [phone] Marisa Viveros MD [address] [phone] Health Maintenance Due Date Last Done Comments COVID-19 Vaccine (#1) 1955 DTaP,Tdap,and Td Vaccines (1 - Tdap) 1967 Hepatitis A Vaccines (1 of 2 - Risk 2-dose series) 1967 Pneumococcal Vaccine: 50+ Years (1 of 2 - PCV) 1967 Zoster Vaccines (1 of 2) 1967 Hepatitis B Vaccines (1 of 3 - Risk 3-dose series) 2008 Cholesterol Screening (Lipid Panel) 02/17/2022 Osteoporosis Screening (Bone Density Screening) 02/17/2022 Social Influencers of Health Screening 02/17/2022 RSV Immunization Adult Patients (1 - 1-dose 75+ series) 2023 Depression Screening 03/11/2024 01/16/2024 Influenza Vaccine (#1) 2024 Falls Risk Assessment 01/15/2025 01/16/2024 Medicare Annual Wellness Visit 01/15/2025 01/16/2024 Hypertension/CHF/CAD Annual BMP Blood Test 10/12/2025 10/12/2024, 08/14/2024, 05/13/2024, Additional history exists Colorectal Cancer Screening: Colonoscopy 10/27/2028 10/28/2023 Hepatitis C Screening Completed 08/05/2024 HIB Vaccines Aged Out No longer eligi ble based on patient's age to complete this topic HPV Vaccines Aged Out No longer eligi ble based on patient's age to complete this topic IPV Vaccines Aged Out No longer eligi ble based on patient's age to complete this topic MMR Vaccines Aged Out No longer eligi ble based on patient's age to complete this topic Meningococcal ACWY Vaccine Aged Out N o longer eligible based on patient's age to complete this topic Meningococcal B Vaccine Aged Out No l onger eligible based on patient's age to complete this topic RSV Immunization Patients Under 20 months Aged Out No longer eligible based on patient's age to complete this topic Varicella Vaccines Aged Out No longer eligible based on patient's age to complete this topic Procedures Procedure Name Priority Date/Time Associated Diagnosis Comments OVA AND PARASITE EXAMINATION Routine 10/12/2024 2:42 PM EDT Diarrhea, unspecified type Generalized abdominal pain CBC WITH AUTO DIFFERENTIAL Routine 10/12/2024 11:56 AM EDT Anemia, unspecified type LIPASE Routine 10/12/2024 11:56 AM EDT Liver disease AMYLASE Routine 10/12/2024 11:56 AM EDT Liver disease CBC AND DIFFERENTIAL Routine 10/12/2024 11:56 AM EDT Anemia, unspecified type COMPREHENSIVE METABOLIC PANEL Routine 10/12/2024 11:56 AM EDT Liver disease OVA AND PARASITE EXAMINATION Routine 10/11/2024 12:00 AM EDT Diarrhea, unspecified type Generalized abdominal pain OVA AND PARASITE EXAMINATION Routine 10/10/2024 12:00 AM EDT Diarrhea, unspecified type Generalized abdominal pain SIX MINUTE WALK TEST Routine 10/05/2024 2:43 PM EDT Dyspnea, unspecified type CBC WITH AUTO DIFFERENTIAL Routine 09/30/2024 2:12 PM EDT Anemia, unspecified type ALANINE AMINOTRANSFERASE Routine 2:12 PM EDT Other cirrhosis of liver (CMS/HCC V24, CMS/HCC V28) ASPARTATE AMINOTRANSFERASE Routine 09/30/2024 2:12 PM EDT Other cirrhosis of liver (CMS/HCC V24, CMS/HCC V28) CBC AND DIFFERENTIAL Routine 09/30/2024 2:12 PM EDT Anemia, unspecified type IRON AND TIBC Routine 09/30/2024 2:12 PM EDT Anemia, unspecified type PULMONARY FUNCTION TESTING Routine 09/25/2024 4:28 PM EDT Dyspnea, unspecified type CT CHEST WO CONTRAST Routine 09/24/2024 2:07 PM EDT ILD (interstitial lung disease) (CMS/HCC V24, CMS/HCC V28) SIX MINUTE WALK TEST Routine 09/08/2024 10:38 AM EDT ILD (interstitial lung disease) (CMS/HCC V24, CMS/HCC V28) KERR URINE CULTURE TUBE Routine 08/28/19 2:50 PM EDT Dysuria URINALYSIS WITH REFLEX MICROSCOPIC AND CULTURE Routine 08/27/2024 2:50 PM EDT Dysuria URINALYSIS WITH REFLEX MICROSCOPIC AND CULTURE Routine 08/27/2024 2:50 PM EDT Dysuria CULTURE URINE Routine 08/27/2024 2:50 PM EDT Dysuria EXTERNAL CLINICAL LAB 08/22/2024 HEPATITIS C ANTIBODY Routine 08/05/2024 2:25 PM EDT History of cirrhosis of liver HM COLONOSCOPY Routine 10/28/2023 from Last 3 Months or Most Recently Relevant to Health Maintenance Results * Ova and parasite examination (10/12/2024 2:42 PM EDT) Only the most recent of3 resultswithin the time period is included. Ova and Parasite No Ova or Parasite seen. 10/18/2024 2:51 PM EDT [facility] Stool Stool / Unknown Non-blood Collection / Unknown 10/12/2024 2:42 PM EDT 10/12/2024 2:42 PM EDT Narrative [facility] - 10/18/2024 2:51 PM EDT Special test request required for Coccidia and Microsporidia. Lori Vicente CHANCE LAB MICROBIOLOGY - GENERAL TIFFANIE AGUILAR Final Result [facility] [address] [place] [address], * (ABNORMAL) CBC auto differential (10/12/2024 11:56 AM EDT) Only the most recent of2 resultswithin the time period is included. WBC 6.4 4.8 - 10.8 K/mcL LAB HEMETOLOGY METHOD 10/12/2024 4:15 PM EDT [facility] RBC 3.60(L) 3.80 - 4.80 M/mcL LAB HEMETOLOGY METHOD 10/12/2024 4:15 PM EDT [facility] Hemoglobin 11.6 11.5 - 16.0 g/dL LAB HEMETOLOGY METHOD 10/12/2024 4:15 PM EDT [facility] Hematocrit 36.3 35.0 - 47.0 % LAB HEMETOLOGY METHOD 10/12/2024 4:15 PM EDT [facility] MCV 101.7(H) 79.0 - 98.0 FL LAB HEMETOLOGY METHOD 10/12/2024 4:15 PM EDT [facility] MCH 32.5(H) 27.0 - 32.0 pcg LAB HEMETOLOGY METHOD 10/12/2024 4:15 PM EDT [facility] MCHC 32.0 32.0 - 37.0 g/dL LAB HEMETOLOGY METHOD 10/12/2024 4:15 PM EDT [facility] RDW 16.6(H) 11.0 - 15.0 % LAB HEMETOLOGY METHOD 10/12/2024 4:15 PM EDT [facility] Platelets 199 130 - 400 K/mcL LAB HEMETOLOGY METHOD 10/12/2024 4:15 PM EDT [facility] MPV 9.2 7.0 - 11.0 FL LAB HEMETOLOGY METHOD 10/12/2024 4:15 PM EDT [facility] NRBC 0.0 <1.0 % LAB HEMETOLOGY METHOD 10/12/2024 4:15 PM EDT [facility] NRBC Absolute 0.00 <0.10 K/mcL LAB HEMETOLOGY METHOD 10/12/2024 4:15 PM EDT [facility] Neutrophils Relative 71.6 % LAB HEMETOLOGY METHOD 10/12/2024 4:15 PM EDT [facility] Lymphocytes Relative 16.1 % LAB HEMETOLOGY METHOD 10/12/2024 4:15 PM EDT [facility] Monocytes Relative 9.9 % LAB HEMETOLOGY METHOD 10/12/2024 4:15 PM EDT [facility] Eosinophils Relative 1.7 % LAB HEMETOLOGY METHOD 10/12/2024 4:15 PM EDT [facility] Basophils Relative 0.2 % LAB HEMETOLOGY METHOD 10/12/2024 4:15 PM EDT [facility] Immature Granulocytes Relative 0.5 % LAB HEMETOLOGY METHOD 10/12/2024 4:15 PM EDT [facility] Neutrophils Absolute 4.55 1.50 - 7.00 K/mcL LAB HEMETOLOGY METHOD 10/12/2024 4:15 PM EDT [facility] Lymphocytes Absolute 1.02 1.00 - 5.00 K/mcL LAB HEMETOLOGY METHOD 10/12/2024 4:15 PM EDT [facility] Monocytes Absolute 0.63 0.20 - 1.00 K/mcL LAB HEMETOLOGY METHOD 10/12/2024 4:15 PM EDT [facility] Eosinophils Absolute 0.11 0.00 - 0.50 K/mcL LAB HEMETOLOGY METHOD 10/12/2024 4:15 PM EDT [facility] Basophils Absolute 0.01 0.00 - 0.20 K/[facility] LAB HEMETOLOGY METHOD 10/12/2024 4:15 PM EDT [facility] Immature Granulocytes Absolute 0.03 0.00 - 0.03 K/[facility] LAB HEMETOLOGY METHOD 10/12/2024 4:15 PM EDT [facility] Blood Venous blood specimen / Unknown Venipuncture / Unknown 10/12/2024 11:56 AM EDT 10/12/2024 11:56 AM EDT Catie Isabel LAB BLOOD ORDERABLES Final Resu lt Performing Organization Address City/[facility]/ZIP Co de Phone Number [facility] [address] [place] [address], [place] [phone] * Lipase (10/12/2024 11:56 AM EDT) Lipase 33 13 - 75 unit/L LAB CHEMISTRY METHOD 10/12/2024 4:26 PM EDT [facility] Blood Venous blood specimen / Unknown Venipuncture / Unknown 10/12/2024 11:56 AM EDT 10/12/2024 11:56 AM EDT Catie Isabel [facility] LAB BLOOD ORDERABLES Final Resu lt [facility] [address] [place] [address], [place] [phone] * Amylase (10/12/2024 11:56 AM EDT) Amylase 77 25 - 115 unit/L LAB CHEMISTRY METHOD 10/12/2024 4:26 PM EDT [facility] Blood Venous blood specimen / Unknown Venipuncture / Unknown 10/12/2024 11:56 AM EDT 10/12/2024 11:56 AM EDT us Catie Isabel NP LAB BLOOD ORDERABLES Final Resu lt [facility] [address] [place] [address], * (ABNORMAL) Comprehensive metabolic panel (10/12/2024 11:56 AM EDT) Sodium 138 133 - 145 mmol/L LAB CHEMISTRY METHOD [facility]24 [facility] Potassium 4.2 3.5 - 5.5 mmol/L LAB CHEMISTRY METHOD 10/12/2024 4:26 PM [facility] Chloride 107 96 - 110 mmol/L LAB CHEMISTRY METHOD 10/12/2024 4:26 PM [facility] CO2 25 21 - 32 mmol/L LAB CHEMISTRY METHOD 10/12/2024 4:26 PM [facility] Anion Gap 6 3 - 11 LAB CHEMISTRY METHOD 10/12/2024 4:26 PM [facility] Glucose 94 70 - 100 mg/dL LAB CHEMISTRY METHOD 10/12/2024 4:26 PM [facility] BUN 22 5 - 25 mg/dL LAB CHEMISTRY METHOD 10/12/2024 4:26 PM [facility] Creatinine 0.79 0.50 - 1.10 mg/dL LAB CHEMISTRY METHOD 10/12/2024 4:26 PM [facility] eGFR 78 >=60 mL/min/1. 73m2 LAB CHEMISTRY METHOD 10/12/2024 4:26 PM [facility] Comment:Calculation based on the Chronic Kidney Disease Epidemiology Collaboration (CKD-EPI) equation refit without adjustment for race. BUN/Creatinine Ratio 27.8 LAB CHEMISTRY METHOD 10/12/2024 4:26 PM [facility] Calcium 9.2 8.5 - 10.5 mg/dL LAB CHEMISTRY METHOD 10/12/2024 4:26 PM EDT [facility] AST (SGOT) 51(H) 10 - 42 unit/L LAB CHEMISTRY METHOD 10/12/2024 4:26 PM EDT [facility] ALT (SGPT) 49 10 - 60 unit/L LAB CHEMISTRY METHOD 10/12/2024 4:26 PM EDT [facility] Alkaline Phosphatase 164(H) 42 - 121 unit/L LAB CHEMISTRY METHOD 10/12/2024 4:26 PM EDT [facility] Total Protein 7.3 6.0 - 8.0 g/dL LAB CHEMISTRY METHOD 10/12/2024 4:26 PM EDT [facility] Albumin 3.1(L) 3.2 - 5.0 g/dL LAB CHEMISTRY METHOD 10/12/2024 4:26 PM T [facility] Total Bilirubin 0.4 0.0 - 1.4 mg/dL LAB CHEMISTRY METHOD 10/12/2024 4:26 PM T [facility] Blood Venous blood specimen / Unknown Venipuncture / Unknown 10/12/2024 11:56 AM EDT 10/12/2024 11:56 AM EDT us Catie Isabel NP LAB BLOOD ORDERABLES Final Resu lt [facility] [address] [place] [address], * 6 minute walk test (10/05/2024 2:43 PM EDT) Impressions Samia Vallejo MD - 10/05/2024 2:43 PM EDT 09/08/24 Walked three minutes and twenty eight seconds covering (30m/98ft) without Leg Fatigue, Mild SOB Lowest oxygen saturation was 93%. Returned to PFT lab for Rest & Recovery. After 1 min RaSpO2 = 97% HR = 70; After 2 min RaSpO2 = 99% HR = 64. No indication for supplemental Oxygen for activity. Marisa Viveros MD IN CLINIC/BEDSIDE ORDERABLES Fin al Result * Iron and TIBC (09/30/2024 2:12 PM EDT) Pathologist [facility] Iron 86 40 - 150 mcg/dL LAB CHEMISTRY METHOD 09/30/2024 7:09 PM EDT [facility] TIBC 344 250 - 450 mcg/dL LAB CHEMISTRY METHOD 09/30/2024 7:09 PM EDT [facility] Iron Saturation 25 15 - 50 % LAB CHEMISTRY METHOD 09/30/2024 7:09 PM EDT [facility] Blood Venous blood specimen / Unknown Venipuncture / Unknown 09/30/2024 2:12 PM EDT 09/30/2024 2:12 PM EDT Catie Isabel NP LAB BLOOD ORDERABLES Final Resu lt Performing Organization Address [facility]/ZIP Co de Phone Number [facility] [address] [place] [address], [place] [phone] * Alanine aminotransferase (09/30/2024 2:12 PM EDT) Pathologist [facility] ALT (SGPT) 38 10 - 60 unit/L LAB CHEMISTRY METHOD 09/30/2024 7:07 PM EDT [facility] Blood Venous blood specimen / Unknown Venipuncture / Unknown 09/30/2024 2:12 PM EDT 09/30/2024 2:12 PM EDT Catie Isabel NP LAB BLOOD ORDERABLES Final Resu lt Performing Organization Address City/[facility]/ZIP Co de Phone Number [facility] [address] [place] [address], [place] [phone] * (ABNORMAL) Aspartate aminotransferase (09/30/2024 2:12 PM EDT) AST (SGOT) 46(H) 10 - 42 unit/L LAB CHEMISTRY METHOD 09/30/2024 7:07 PM EDT [facility] Blood Venous blood specimen / Unknown Venipuncture / Unknown 09/30/2024 2:12 PM EDT 09/30/2024 2:12 PM EDT Catie Isabel NP LAB BLOOD ORDERABLES Final Resu lt [facility] [address] [place] [address], [place] [phone] * Pulmonary function testing: Carbon Monoxide Diffusing Capacity, Nitrogen Wash Out, Spirometry with Bronchodilator, Vital Capacity Test (09/25/2024 4:28 PM EDT) Impressions Samia Vallejo MD - 09/25/2024 4:28 PM EDT Pulmonary function test interpretation. Spirometry reveals FEV1 of 1.57 which is 83% of the predicted value, FVC is 1.59 which is 63% of the predicted value, FEV1 to FVC ratio is 132% of the predicted value, there is no bronchodilator response. Flow volume is consistent with restrictive pattern. Static lung volumes including total lung capacity is moderately reduced, diffusion lung capacity is moderately reduced and was moderately reduced after correction for alveolar volume. This study is consistent with normal spirometry, with moderate restrictive lung disease for which clinical correlation is advised. Simple pulmonary exercise testing interpretation. Patient ambulated for total of 500 feet, due to significant leg fatigue starting on room air saturating around 92%, after walking due to leg fatigue rested for 1 minute, during rest his heart rate was 111 bpm, oxygen saturation was 92%, subsequently his oxygen saturation was 93% on room air. This is a limited study, due to patient's lack fatigue, however on the basis of the study at present FiO2 requirement is not indicated. Clinical correlation however is advised. 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 Thickening of the gastroesophageal junction with gastrohepatic lymphadenopathy. Endoscopy is recommended to evaluate for possible neoplasm. Cirrhosis. A copy of this report will be provided to the [facility] [employer] Program. -------- FINAL REPORT -------- Dictated By: YURIY GAN Dictated Date: 09/25/2024 16:40 ET Assigned Physician: YURIY GAN Reviewed and Electronically Signed By: YURIY GAN Signed Date: 09/25/2024 16:55 ET Workstation ID: [id number] Transcribed By: Self Edit Transcribed Date: 09/25/2024 16:40 ET Narrative 09/25/2024 4:55 PM EDT PROCEDURE: Chest CT INDICATION: Interstitial lung disease TECHNIQUE: Chest CT without contrast. Multi planar reformats were created and interpreted. The examination was performed utilizing dose reduction techniques. Total DLP 433 COMPARISON: 05/14/2024 FINDINGS: LUNGS/PLEURA: Central airways are patent. Basilar predominant subpleural reticulation, architectural distortion, and traction bronchiectasis is similar compared to the prior exam. Honeycombing is unchanged, most notable in the lingula. No suspicious pulmonary nodule, pleural effusion, or pneumothorax. MEDIASTINUM: Thyroid gland is normal. No mediastinal or hilar lymphadenopathy. Thoracic aorta is normal in size. Mild coronary artery calcifications. Thickening of the gastroesophageal junction with prominent gastrohepatic lymph node measuring 14 mm. Cardiac chambers are normal in size. No pericardial effusion CHEST WALL: No axillary lymphadenopathy or superficial hematoma. UPPER ABDOMEN:Cirrhotic liver morphology. Cholecystectomy. Subcentimeter hemorrhagic/proteinaceous left upper pole renal cyst. BONES: No acute fracture. Scattered degenerative changes seen throughout the bones. Procedure Note Yuriy Gan MD - 09/25/2024 PROCEDURE: Chest CT INDICATION: Interstitial lung disease TECHNIQUE: Chest CT without contrast. Multi planar reformats were createdand interpreted. The examination was performed utilizing dose reductiontechniques. Total DLP 433 COMPARISON: 05/14/2024 FINDINGS: LUNGS/PLEURA: Central airways are patent. Basilar predominant subpleuralreticulation, architectural distortion, and traction bronchiectasis issimilar compared to the prior exam. Honeycombing is unchanged, mostnotable in the lingula. No suspicious pulmonary nodule, pleural effusion,or pneumothorax. MEDIASTINUM: Thyroid gland is normal. No mediastinal or hilarlymphadenopathy. Thoracic aorta is normal in size. Mild coronary arterycalcifications. Thickening of the gastroesophageal junction withprominent gastrohepatic lymph node measuring 14 mm. Cardiac chambers arenormal in size. No pericardial effusion CHEST WALL: No axillary lymphadenopathy or superficial hematoma. UPPER ABDOMEN:Cirrhotic liver morphology. Cholecystectomy. Subcentimeterhemorrhagic/proteinaceous left upper pole renal cyst. BONES: No acute fracture. Scattered degenerative changes seen throughoutthe bones. IMPRESSION: No change in basilar predominant chronic interstitial lung disease with aUIP pattern. Thickening of the gastroesophageal junction with gastrohepaticlymphadenopathy. Endoscopy is recommended to evaluate for possibleneoplasm. Cirrhosis. A copy of this report will be provided to the [facility] [employer]. -------- FINAL REPORT -------- Dictated By: YURIY GAN Dictated Date: 09/25/2024 16:40 ET Assigned Physician: YURIY GAN Reviewed and Electronically Signed By: YURIY GAN Signed Date: 09/25/2024 16:55 ET Workstation ID: [id number] Transcribed By: Self Edit Transcribed Date: 09/25/2024 16:40 ET Marisa Viveros MD [facility] [place] [facility] PROCEDURES Final Result * (ABNORMAL) Urinalysis with reflex microscopic and culture (08/27/2024 2:50 PM EDT) Specific [place] Urine 1.019 1.003 - 1.030 LAB URINALYSIS - AUTOMATED METHOD 08/27/2024 6:54 PM EDT [facility] pH, Urine 6.0 5.0 - 8.0 pH LAB URINALYSIS - AUTOMATED METHOD 08/27/2024 6:54 PM EDT [facility] Leukocytes, Urine Large(A) Negative LAB URINALYSIS - AUTOMATED METHOD 08/27/2024 6:54 PM EDT [facility] Nitrite, Urine Negative Negative LAB URINALYSIS - AUTOMATED METHOD 08/27/2024 6:54 PM [facility] Protein, Urine 30(A) <=Trace mg/dL LAB URINALYSIS - AUTOMATED METHOD 08/27/2024 6:54 PM [facility] Glucose, Urine Negative Negative mg/dL LAB URINALYSIS - AUTOMATED METHOD 08/27/2024 6:54 PM [facility] Ketones, Urine Negative Negative mg/dL LAB URINALYSIS - AUTOMATED METHOD 08/27/2024 6:54 PM [facility] Urobilinogen, Urine 1.0 0.2 - 1.0 mg/dL LAB URINALYSIS - AUTOMATED METHOD 08/27/2024 6:54 PM [facility] Bilirubin, Urine Negative Negative LAB URINALYSIS - AUTOMATED METHOD 08/27/2024 6:54 PM [facility] Blood, Urine Small(A) Negative LAB URINALYSIS - AUTOMATED METHOD 08/27/2024 6:54 PM [facility] RBC, Urine 21.9(H) 0 - 4 /HPF LAB URINALYSIS - AUTOMATED METHOD 08/27/2024 6:54 PM [facility] WBC, Urine 327.6(H) 0 - 4 /HPF LAB URINALYSIS - AUTOMATED METHOD 08/27/2024 6:54 PM [facility] Squamous Epithelial, Urine 10 0 - 60 /LPF LAB URINALYSIS - AUTOMATED METHOD 08/27/2024 6:54 PM [facility] Bacteria, Urine Many(A) Negative /HPF LAB URINALYSIS - AUTOMATED METHOD 08/27/2024 6:54 PM [facility] Hyaline Casts, Urine 0.0 0 - 3 /LPF LAB URINALYSIS - AUTOMATED METHOD 08/27/2024 6:54 PM [facility] Urine Urine specimen obtained by clean catch procedure / Unknown Non-blood Collection / Unknown 08/27/2024 2:50 PM EDT 08/27/2024 2:50 PM EDT Elizabeth Thorpe MD LAB URINE ORDERABLES Final Res ult Performing Organization Address [facility]/ZIP Co de Phone Number [facility] [address] [place] [address], [place] [phone] * Kerr urine culture tube (08/27/2024 2:50 PM EDT) Extra Tube Hold for add-ons. 08/27/2024 8:01 PM EDT [facility] Comment:Auto resulted. Urine Urine specimen obtained by clean catch procedure / Unknown Non-blood Collection / Unknown 08/27/2024 2:50 PM EDT 08/27/2024 2:50 PM EDT Elizabeth Thorpe MD LAB URINE ORDERABLES Final Res ult Performing Organization Address [facility] Co de Phone Number [facility] [address] [place] [address], [place] [phone] * (ABNORMAL) Culture urine (08/27/2024 2:50 PM EDT) Culture, Urine 50,000-100,000 CFU/mL Escherichia coli(A) DEBBIE 08/29/2024 10:57 AM EDT [facility] Urine Urine specimen obtained by clean catch procedure / Unknown Non-blood Collection / Unknown 08/27/2024 2:50 PM EDT 08/27/2024 6:54 PM EDT Narrative Organism Antibiotic Method Susceptibility Escherichia coli Amoxicillin/Clavulanate DEBBIE <=2 ug/ml: Susceptible Escherichia coli Ampicillin/Sulbactam DEBBIE <=2 ug/ml: Susceptible Escherichia coli Piperacillin/Tazobactam DEBBIE <=4 ug/ml: Susceptible Escherichia coli Cefazolin (Urine) DEBBIE 2 ug/ml: Susceptible Escherichia coli Cefoxitin DEBBIE <=4 ug/ml: Susceptible Escherichia coli Ceftazidime DEBBIE <=0.5 ug/ml: Susceptible Escherichia coli Ceftriaxone DEBBIE <=0.25 ug/ml: Susceptible Escherichia coli Cefepime DEBBIE <=0.12 ug/ml: Susceptible Escherichia coli Meropenem DEBBIE <=0.25 ug/ml: Susceptible Escherichia coli Amikacin DEBBIE 2 ug/ml: Susceptible Escherichia coli Gentamicin DEBBIE <=1 ug/ml: Susceptible Escherichia coli Ciprofloxacin DEBBIE <=0.06 ug/ml: Susceptible Escherichia coli Levofloxacin DEBBIE <=0.12 ug/ml: Susceptible Escherichia coli Nitrofurantoin DEBBIE <=16 ug/ml: Susceptible Escherichia coli Trimethoprim/Sulfamethoxazole DEBBIE <=20 ug/ml: Susceptible Elizabeth Thorpe MD LAB MICROBIOLOGY - GENERAL ORD ERABLES Final Result Performing Organization Address [facility]/ZIP Co de Phone Number [facility] [address] [place] [address], [place] [phone] * External clinical lab (08/22/2024) Provider Helen Onbase LAB BLOOD ORDERABLES Fin al Result * Hepatitis C antibody (08/05/2024 2:25 PM EDT) [facility] Hepatitis C Antibody Negative Negative LAB CHEMISTRY METHOD 08/05/2024 10:04 PM EDT [facility] Blood Venous blood specimen / Unknown Venipuncture / Unknown 08/05/2024 2:25 PM EDT 08/05/2024 2:25 PM EDT Lori Vicente NP LAB BLOOD ORDERABLES Final Resu lt Performing Organization Address City/[facility]/ZIP Co de Phone Number [facility] [address] [place] [address], [place] [phone] * Hm Colonoscopy (10/28/2023) Pathologist [facility] Colonoscopy no interpretation , abstracted Anatomical Region Laterality Modality Other Historical Provider HEALTH MAINTENANCE Final Result from Last 3 Months or Most Recently Relevant to Health Maintenance Insurance MEDICARE [place]ICAID [place] Care Teams Waistline Joiner Lockstitch Relationship Specialty Start Date End Date Catie Isabel NP [address] [place] [id number] PCP - General 09/30/23
--- OUTSIDE RECORDS SUMMARY | 2024-11-12 16:28 | XMS_ITS | Encounter Summary ---
Author Organization [facility] Address [address] [facility] [address] [place] [address] Phone Care Team Providers Care Decontamination Technician Name Role Phone Catie Isabel CHARGE RN Primary Care Provider [phone] Encounter Details Date Type Department Care Team (Late st Contact Info) Description 05/14/2024 Procedure Pass [facility] [place] [address] [place] [address] Social History Tobacco Use Types Packs/Day Years [...] as food, clothing, or medical care? No 05/13/2024 In the past 12 months have y ou been in a relationship with a person who hurts, threatens, or tries to control you? No 05/13/2024 Are you denied basic needs s uch as food, clothing, or medical care? No 05/13/2024 In the past 12 months have y ou been in a relationship with a person who hurts, threatens, or tries to control you? No 05/13/2024 Comments Unknown Sex and Gender Information Value Date Recorded Sex Assigned at Female 04/28/2024 1:10 PM EST Legal Sex Female 7:55 PM EST Gender Identity Female 04/28/2024 1:10 PM EST Sexual Orientation Not on file documented as of this encounter Plan of Treatment Not on file documented as of this encounter Visit Diagnoses Not on filedocumented in this encounter Additional Health Concerns Infection Onset Date Last Indicated Resolved Time 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 08/14/2024 documented as of this encounter Care Teams Decontamination Technician Relationship Specialty Start Date End Date Catie Isabel NP [address] [place] [id number] PCP - General Nurse Practitioner 02/22/24 documented as of this encounter Additional Source Comments The information contained in this document represents components of the legal health record. It is not the complete legal health record.[facility]
--- OUTSIDE RECORDS SUMMARY | 2024-11-12 16:28 | XMS_ITS | Encounter Summary ---
Author Organization [facility] Address [address] [facility] [address] [place] [address] Phone Care Team Providers Care Thermometer Production Worker Name Role Phone Catie Isabel MOLDER MACHINE TENDER Primary Care Provider [phone] Encounter Details Date Type Department Care Team (Late st Contact Info) Description 05/14/2024 Procedure Pass [facility] Emergency Imaging, Main [address] [place] [address] Social History Tobacco Use Types Packs/Day Years [...] documented as of this encounter Care Teams Thermometer Production Worker Relationship Specialty Start Date End Date Catie Isabel NP [address] [place] [id number] PCP - General Nurse Practitioner 02/22/24 documented as of this encounter Additional Source Comments The information contained in this document represents components of the legal health record. It is not the complete legal health record.[facility]
--- OUTSIDE RECORDS SUMMARY | 2024-11-12 16:28 | XMS_ITS | Clinical Summary ---
Author Organization [address] Address [address] [place] [phone] Phone Care Team Providers Care Readers' Advisory Service Librarian Name Role Phone Nile Rodarte DO Primary Care Provider [phone] Allergies No known active allergies Medications PREMARIN 0.625 mg/gram Crea 03/08/2015 Active meclizine (ANTIVERT) 25 mg tablet 03/17/2015 Active permethrin (ELIMITE) 5 % cream APPLY AND KEEP ON OVERNIGHT, RINSE OFF IN THE MORNING. THEN REPEAT IN 1 WEEK 1 05/09/2015 Active NASONEX 50 mcg/actuation [place] USE 2 SPRAYS IN EACH NOSTRIL ONCE [...] series) 2023 Covid-19 vaccine series ( - 2023- season) 2024 Influenza vaccine 11/09/2024 Breast cancer screening Discontinued Cervical cancer screening Discontinued Colon cancer screening, Colonoscopy Discontinued Meningococcal B Vaccine Aged Out No l onger eligible based on patient's age to complete this topic Meningococcal Vaccine Aged Out No esdras vanesa eligible based on patient's age to complete this topic Insurance MEDICARE COMMERCIAL GENERIC MEDICARE [employer] GENERIC MEDICARE COMMERCIAL GENERIC MEDICARE COMMERCIAL GENERIC Care Teams Readers' Advisory Service Librarian Relationship Specialty Start Date End Date Nile Rodarte DO PCP - General Internal Medicine 04/12/15
--- OUTSIDE RECORDS SUMMARY | 2024-11-12 16:28 | XMS_ITS | Encounter Summary ---
Author Organization [facility] Address [address] [place] [address] Phone Care Team Providers Care Grinding Wheel Operator Name Role Phone Catie Isabel LICENSED PRACTICAL NURSE Primary Care Provider [phone] Encounter Details Date Type Department Care Team (Late st Contact Info) Description 04/17/2024 Procedure Pass [facility] Endoscopy Admitting Dept Virtual Department [address] [place] [id number] Social History Tobacco Use Types Packs/Day Years Used Date Smoking Tobacco: Never Smokeless Tobacco: Never Alcohol Use Standard Drinks/Week Comments Not Currently 0 (1 standard drink = 0.6 oz pur e alcohol) Education Answer Date Recorded Are you interested in more education? Not on vazquez e 07/05/2022 Are you concerned about learning? Not on file 07/05/2022 No 07/05/2022 No 07/05/2022 Digital Access Answer Date Recorded No 08/06/2022 No 08/06/2022 Reliable internet access at home? Not on file 08/06/2022 Device with a working camera? Not on file Intimate Partner Violence Answer Date R ecorded Are you denied basic needs s uch as food, clothing, or medical care? No 04/16/2024 In the past 12 months have y ou been in a relationship with a person who hurts, threatens, or tries to control you? No 04/16/2024 Are you denied basic needs s uch as food, clothing, or medical care? No 04/16/2024 In the past 12 months have y ou been in a relationship with a person who hurts, threatens, or tries to control you? No 04/16/2024 Comments Unknown Sex and Gender Information Value [...] documented as of this encounter Care Teams Grinding Wheel Operator Relationship Specialty Start Date End Date Catie Isabel NP [address] [place] [address] PCP - General Nurse Practitioner 02/22/24 documented as of this encounter Additional Source Comments The information contained in this document represents components of the legal health record. It is not the complete legal health record.[facility]
--- OUTSIDE RECORDS SUMMARY | 2024-11-12 16:28 | XMS_ITS | Encounter Summary ---
Author Organization [facility] Address [address] [place] [phone] Care Team Providers Care Correspondence School Teacher Name Role Phone Nile Rodarte DO Primary Care Provider [phone] Encounter Details Date Type Department Care Team (Late st Contact Info) Description 05/16/2015 Scanned Document [facility] at [address] [address] Stuart Tracy MD [address] [place] [address] Social History Tobacco Use Types Packs/Day Years Used Date Smoking Tobacco: Never Alcohol Use Standard Drinks/Week Comments No 0 (1 standard drink = 0.6 oz pur e alcohol) Comments No Sex and Gender Information Value Date Recorded Sex Assigned at Not on file Legal Sex Female 2:15 PM EST Gender Identity Not on file Sexual Orientation Not on file documented as of this encounter Plan of Treatment Not on file documented as of this encounter Procedures Procedure Name Priority Date/Time Associated Diagnosis Comments MRI RESULT SCAN Routine 05/16/2015 documented in this encounter Results * MRI Result Scan (05/16/2015) Stuart Tracy MD IMG SCAN REPORTS Final Result [facility] [place], [facility] documented in this encounter Visit Diagnoses Not on filedocumented in this encounter Care Teams Correspondence School Teacher Relationship Specialty Start Date End Date Nile Rodarte DO PCP - General Internal Medicine 04/12/15 documented as of this encounter
--- OUTSIDE RECORDS SUMMARY | 2024-11-12 16:28 | XMS_ITS | Encounter Summary ---
Author Organization [facility] Address [address] [address] Phone Care Team Providers Care Postbed Stitcher Name Role Phone Catie Isabel WIRE SPRING RELAY ADJUSTER Primary Care Provider [phone] Encounter Details Date Type Department Care Team (Late st Contact Info) Description 05/13/2024 Procedure Pass [facility] Cardiovascular And Interventional Radiology [address] [place] [address] Social History Tobacco Use Types Packs/Day Years [...] Date of Assessment Author No Risk Indicated 05/13/2024 10:00 PM Jazmin Ferrer RN * [place] Suicide Severity Rating Scale (Screener/Recent Self-Report) Question Answer Date of Assessment Author 1. Wish to be (Past 1 Month) No 025 10:00 PM Jazmin Ferrer RN 2. Non-Specific Active Suici tamir Thoughts (Past 1 Month) No 05/13/2024 10:00 PM Jazmin Ferrer RN 6. Suicidal Behavior (Lifetime) No 10:00 PM Jazmin Ferrer RN documented as of this encounter Plan of Treatment Not on file documented as of this encounter Visit Diagnoses Not on filedocumented in this encounter Additional Health Concerns Infection Onset Date Last Indicated Resolved Time 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 08/14/2024 documented as of this encounter Care Teams Postbed Stitcher Relationship Specialty Start Date End Date Catie Isabel NP [address] [place] [id number] PCP - General Nurse Practitioner 02/22/24 documented as of this encounter Additional Source Comments The information contained in this document represents components of the legal health record. It is not the complete legal health record.[facility]
--- OUTSIDE RECORDS SUMMARY | 2024-11-12 16:28 | XMS_ITS | Encounter Summary ---
Author Organization [facility] Address [address] [facility] [address] [place] [address] Phone Care Team Providers Care Structurer Name Role Phone Catie Isabel LEGAL DIRECTOR Primary Care Provider +1- [phone] Encounter Details Date Type Department Care Team (Late st Contact Info) Description 04/28/2024 Procedure Pass [facility], Ct Scan - [address] [address] Social History Tobacco Use Types Packs/Day Years [...] got money to buy more. Never True 04/28/2024 Within the past 6 months the food we bought just didn't last and we didn't have enough money to get more. Never True Residential Stability Answer Date Recor ded What is your housing situation today? I have jozef sing 04/28/2024 How many times have you move d in the past 12 months? Zero (I did not move) 04/28/2024 Paying for Meds Answer Date Recorded Do you have trouble paying for medicines? No 04/28/2024 Paying Utility Bills Answer Date Record ed Do you have trouble paying your heating or elect ricity bill? Yes 04/28/2024 Transportation Answer Date Recorded Has the lack of transportati on kept you from medical appointments or from getting medications? No 04/28/2024 Digital Access Answer Date Recorded No 04/28/2024 Yes 04/28/2024 Do you have reliable internet access at home? Ye s 04/28/2024 Do you have a device (e.g., phone, tablet, computer) with a working camera? Yes 04/28/2024 Intimate Partner Violence Answer Date R ecorded Are you denied basic needs s uch as food, clothing, or medical care? No 04/28/2024 In the past 12 months have y ou been in a relationship with a person who hurts, threatens, or tries to control you? No 04/28/2024 Are you denied basic needs s uch as food, clothing, or medical care? No 04/28/2024 In the past 12 months have y ou been in a relationship with a person who hurts, threatens, or tries to control you? No 04/28/2024 Comments Unknown Sex and Gender Information Value Date Recorded Sex Assigned at Female 04/28/2024 1:10 PM EST Legal Sex Female 7:55 PM EST Gender Identity Female 04/28/2024 1:10 PM EST Sexual Orientation Not on file documented as of this encounter Functional Status * Calculated C-SSRS Risk Score (Lifetime/Recent) Answer Date of Assessment Author No Risk Indicated 04/28/2024 1:10 PM Laila Booker RN * [place] Suicide Severity Rating Scale (Screener/Recent Self-Report) Question Answer Date of Assessment Author 1. Wish to be (Past 1 Month) No 025 1:10 PM Laila Booker RN 2. Non-Specific Active Suici tamir Thoughts (Past 1 Month) No 04/28/2024 1:10 PM Laila Booker, JALEEL 6. Suicidal Behavior (Lifetime) No 5 1:10 PM Laila Booker, JALEEL documented as of this encounter Plan of Treatment Not on file documented as of this encounter Visit Diagnoses Not on filedocumented in this encounter Additional Health Concerns Infection Onset Date Last Indicated Resolved Time 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 08/14/2024 documented as of this encounter Care Teams Structurer Relationship Specialty Start Date End Date Catie Isabel NP [address] [facility] [place] [address] PCP - General Nurse Practitioner 02/22/24 documented as of this encounter Additional Source Comments The information contained in this document represents components of the legal health record. It is not the complete legal health record.[facility]
--- OUTSIDE RECORDS SUMMARY | 2024-11-12 16:28 | XMS_ITS | Encounter Summary ---
Author Organization [facility] Address [address] [place] [address] Phone Care Team Providers Care Statistics Professor Name Role Phone Catie Isabel BODY PAINTER Primary Care Provider +1- [phone] Encounter Details Date Type Department Care Team (Late st Contact Info) Description 02/24/2024 Procedure Pass [facility] Endoscopy Admitting Dept Virtual Department [address] [place] [address] Social History Tobacco Use Types Packs/Day Years [...] as food, clothing, or medical care? No 02/22/2024 In the past 12 months have y ou been in a relationship with a person who hurts, threatens, or tries to control you? No 02/22/2024 Are you denied basic needs s uch as food, clothing, or medical care? No 02/22/2024 In the past 12 months have y ou been in a relationship with a person who hurts, threatens, or tries to control you? No 02/22/2024 Comments Unknown Sex and Gender Information Value [...] documented as of this encounter Care Teams Statistics Professor Relationship Specialty Start Date End Date Catie Isabel NP [address] [place] [address] PCP - General Nurse Practitioner 02/22/24 documented as of this encounter Additional Source Comments The information contained in this document represents components of the legal health record. It is not the complete legal health record.[facility]
--- OUTSIDE RECORDS SUMMARY | 2024-11-12 16:28 | XMS_ITS | Encounter Summary ---
Author Organization [facility] Address [address] [address] Phone Care Team Providers Care Road Tester Name Role Phone Catie Isabel FOREIGN LANGUAGE INSTRUCTOR Primary Care Provider +1- [phone] Encounter Details Date Type Department Care Team (Late st Contact Info) Description 06/04/2024 Procedure Pass [facility] Endoscopy Admitting Dept Virtual Department [address] [place] [address] Social History Tobacco Use Types Packs/Day Years [...] as food, clothing, or medical care? No 05/20/2024 In the past 12 months have y ou been in a relationship with a person who hurts, threatens, or tries to control you? No 05/20/2024 Are you denied basic needs s uch as food, clothing, or medical care? No 05/20/2024 In the past 12 months have y ou been in a relationship with a person who hurts, threatens, or tries to control you? No 05/20/2024 Comments No Sex and Gender Information Value [...] documented as of this encounter Care Teams Road Tester Relationship Specialty Start Date End Date Catie Isabel NP [address] [place] [address] PCP - General Nurse Practitioner 02/22/24 documented as of this encounter Additional Source Comments The information contained in this document represents components of the legal health record. It is not the complete legal health record.[facility]
--- OUTSIDE RECORDS SUMMARY | 2024-11-12 16:28 | XMS_ITS | Encounter Summary ---
Author Organization [facility] Address [address] [facility] [address] [place] [address] Phone Care Team Providers Care Resort Manager Name Role Phone Catie Isabel SOIL CONSERVATIONIST Primary Care Provider +1- [phone] Encounter Details Date Type Department Care Team (Late st Contact Info) Description 05/14/2024 Procedure Pass [facility] [place] [address] [facility], 6th [place] [address] Social History Tobacco Use Types Packs/Day Years [...] documented as of this encounter Care Teams Resort Manager Relationship Specialty Start Date End Date Catie Isabel NP [address] [place] [address] PCP - General Nurse Practitioner 02/22/24 documented as of this encounter Additional Source Comments The information contained in this document represents components of the legal health record. It is not the complete legal health record.[facility]
--- OUTSIDE RECORDS SUMMARY | 2024-11-12 16:28 | XMS_ITS | Encounter Summary ---
Author Organization [facility] Address [address] [facility] [address] [place] [address] Phone Care Team Providers Care Paving Bed Maker Name Role Phone Catie Isabel INFORMATION AND DATA ARCHITECT ANALYST Primary Care Provider +1- [phone] Encounter Details Date Type Department Care Team ([facility] st Contact Info) Description 05/20/2024 Procedure Pass [facility] PERIOPERATIVE DEPT [address] [place] [id number] Social History Tobacco Use Types Packs/Day Years [...] documented as of this encounter Care Teams Paving Bed Maker Relationship Specialty Start Date End Date Catie Isabel NP [address] [place] [address] PCP - General Nurse Practitioner 02/22/24 documented as of this encounter Additional Source Comments The information contained in this document represents components of the legal health record. It is not the complete legal health record.[facility]
--- OUTSIDE RECORDS SUMMARY | 2024-11-12 16:28 | XMS_ITS | Encounter Summary ---
Author Organization [facility] Address [address] [place], [place] [id number] Phone Care Team Providers Care Manager Operations Research Name Role Phone Catie Isabel HAT IRONER Primary Care Provider +1- [phone] Encounter Details Date Type Department Care Team (Late st Contact Info) Description 02/23/2024 Procedure Pass [facility], Ct Scan - [address] [address] Social History Tobacco Use Types Packs/Day Years [...] documented as of this encounter Care Teams Manager Operations Research Relationship Specialty Start Date End Date Catie Isabel NP [address] [place] [address] PCP - General Nurse Practitioner 02/22/24 documented as of this encounter Additional Source Comments The information contained in this document represents components of the legal health record. It is not the complete legal health record.[facility]
--- OUTSIDE RECORDS SUMMARY | 2024-11-12 16:28 | XMS_ITS | Encounter Summary ---
Author Organization [facility] Address 399 [facility] [address] [place] [address] Phone Care Team Providers Care Wet Silk Hanger Name Role Phone Catie Isabel COLLECTION MANAGER Primary Care Provider +1- [phone] Encounter Details Date Type Department Care Team (Late st Contact Info) Description 07/30/2024 Procedure Pass [facility], Ct Scan - [address] [address] Social History Tobacco Use Types Packs/Day Years [...] got money to buy more. Never True 07/30/2024 Within the past 6 months the food we bought just didn't last and we didn't have enough money to get more. Never True Residential Stability Answer Date Recor ded What is your housing situation today? I have jozef sing 07/30/2024 How many times have you move d in the past 12 months? Zero (I did not move) 07/30/2024 Paying for Meds Answer Date Recorded Do you have trouble paying for medicines? No 07/30/2024 Paying Utility Bills Answer Date Record ed Do you have trouble paying your heating or elect ricity bill? Yes 07/30/2024 Transportation Answer Date Recorded Has the lack of transportati on kept you from medical appointments or from getting medications? No 07/30/2024 Digital Access Answer Date Recorded No 07/30/2024 Yes 07/30/2024 Do you have reliable internet access at home? Ye s 07/30/2024 Do you have a device (e.g., phone, tablet, computer) with a working camera? Yes 07/30/2024 Intimate Partner Violence Answer Date R ecorded Are you denied basic needs s uch as food, clothing, or medical care? No 07/30/2024 In the past 12 months have y ou been in a relationship with a person who hurts, threatens, or tries to control you? No 07/30/2024 Are you denied basic needs s uch as food, clothing, or medical care? No 07/30/2024 In the past 12 months have y ou been in a relationship with a person who hurts, threatens, or tries to control you? No 07/30/2024 Comments No Sex and Gender Information Value Date Recorded Sex Assigned at Female 04/28/2024 1:10 PM EST Legal Sex Female 7:55 PM EST Gender Identity Female 04/28/2024 1:10 PM EST Sexual Orientation Not on file documented as of this encounter Functional Status * Calculated C-SSRS Risk Score (Lifetime/Recent) Answer Date of Assessment Author No Risk Indicated 07/30/2024 11:26 AM Laila Go RN * [place] Suicide Severity Rating Scale (Screener/Recent Self-Report) Question Answer Date of Assessment Author 1. Wish to be (Past 1 Month) No 025 11:26 AM Laila Go, JALEEL 2. Non-Specific Active Suici tamir Thoughts (Past 1 Month) No 07/30/2024 11:26 AM Laila Go , JALEEL 6. 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 It is not the complete legal health record.[facility]
== END 2024-11-12 15:54 | disposition home or self-care (01) ==
LOC: HO.HPS 15:29
PROVIDERS: Visit Provider Internal Medicine
DX: J44.1 Chronic obstructive pulmonary disease with (acute) exacerbation (principal); J84.9 Interstitial pulmonary disease, unspecified; J47.9 Bronchiectasis, uncomplicated
CPT/HCPCS: 99214

== ENCOUNTER → 2024-11-12 15:28 | Outpatient (BNVA) | payer MEDICARE, MEDICAID, SELFPAY | PROVIDERS: Visit Provider Internal Medicine | DX: J47.9 Bronchiectasis, uncomplicated (principal); J84.9 Interstitial pulmonary disease, unspecified; J44.1 Chronic obstructive pulmonary disease with (acute) exacerbation | CPT/HCPCS: 99212 ==

== ENCOUNTER 2024-11-26 20:43 | Emergency (ER) | payer MEDICARE, MEDICAID, SELFPAY ==
--- NOTE | ~2024-11-26 | XR_ITS ---
CLINICAL HISTORY: shortness of breath chest and back pain 2 view chest x-ray Comparison: CT/SR - CT ANGIO CHEST PE PROTOCOL - 10/23/24 22:56 EDT CR - XR CHEST 2V - 03/29/24 15:49 EST Findings: Normal-sized heart. Fibrotic lung disease. No focal consolidation, pleural effusion, or pneumothorax. Degenerative change of both shoulders. Cholecystectomy clips. IMPRESSION: Fibrotic lung disease without acute findings This document has been electronically signed by: Oz Jaramillo MD on 11/26/2024 22:11:37
--- NOTE | ~2024-11-26 | CT_ITS ---
CLINICAL HISTORY: abdominal pain CT abdomen and pelvis with contrast Comparison: CT/SR - CT ANGIO CHEST PE PROTOCOL - 10/23/24 22:[address] of the abdomen and pelvis with contrast 09/27/22. Findings: Honeycombing again noted in the lung bases consistent with fibrosis. No consolidation or pneumothorax in the visualized portions. Status post cholecystectomy with intrahepatic and extrahepatic biliary tree dilation. No radiopaque biliary stones are visualized. Nodular contour of the liver with prominence of the left hepatic lobe, suggestive of fibrosis. No liver masses visualized. The portal, mesenteric, and splenic veins are patent. Other solid organs unremarkable. No bowel obstruction, pneumoperitoneum, or pneumatosis. Appendix not visualized. No secondary signs of acute appendicitis. Surgical clips again seen in the left lower pelvis. Pelvic contents otherwise unremarkable. Osteopenia. Bilateral avascular necrosis of the femoral heads. Degenerative changes of the visualized spine. IMPRESSION: No acute findings. Nodular contour of the liver and prominence of the left hepatic lobe suggestive of fibrosis. Patent portal veins. This document has been electronically signed by: Oz Jaramillo MD on 11/27/2024 03:03:54
--- NOTE | 2024-11-26 20:46 | ECG_ITS ---
Test Reason : CHEST PAIN Blood Pressure : */* mmHG Vent. Rate : 98 BPM Atrial Rate : 98 BPM P-R Int : 146 ms QRS Dur : 88 ms QT Int : 358 ms P-R-T Axes : 29 -27 7 degrees QTcB Int : 457 ms Normal sinus rhythm Possible Anterior infarct (cited on or before 12-Mar-2018) Abnormal ECG When compared with ECG of 23-Oct-2024 22:17, Premature ventricular complexes are no longer Present Borderline criteria for Inferior infarct are no longer Present Referred By: Frannie Mcallister Electronically Signed By: NEEL CHEN
[2024-11-26 20:56] VITALS: BP 114/57; PULSE 95; RESP 18; TEMP 36.7; O2SAT 97; BMI 26.2
[2024-11-26 22:03] LABS: Alanine Aminotransferase 53 U/L (0-31); Albumin Level 3.7 g/dL (3.5-5.0); Alkaline Phosphatase 129 U/L (39-117); Anion Gap 13 (12-20); Aspartate Amino Transferase 64 U/L (5-31); Blood Urea Nitrogen 23 mg/dL (9-16); Calcium 9.0 mg/dL (8.4-10.2); Carbon Dioxide 22 mmol/L (22-29); Chloride 109 mmol/L (96-108); Creatinine Clr Calc Pharmacy 48.1; Estimated Glomerular Filt Rate > 60; Magnesium 2.4 mg/dL (1.6-2.6); Potassium 5.0 mmol/L (3.3-5.1); Sodium 139 mmol/L (135-145); Total Protein 8.1 g/dL (6.5-8.0)
[2024-11-26 22:09] LABS: NT Pro B Type Natriuretic Pept 77.7 pg/mL (<300)
[2024-11-26 22:10] LABS: Troponin-I High Sensitivity < 2.7 ng/L (<3.5-17.0)
[2024-11-26 22:19] LABS: Hematocrit 32.6 % (37.0-47.0); Hemoglobin 11.0 g/dl (12.0-16.0); Mean Corpuscular HGB Conc 33.7 g/dl (31.0-35.0); Mean Corpuscular Hemoglobin 33.6 pg (27.0-33.0); Mean Corpuscular Volume 99.7 fL (80.0-98.0); NRBC Abs Auto 0.000 X10*3/uL (0.0-0.012); NRBC Pct Auto 0.0 /100WBC (0.0-0.2); Platelet Count 240 X10*3/uL (160-400); Red Blood Count 3.27 X10*6/uL (4.20-5.50); White Blood Count 6.5 X10*3/uL (4.8-10.8)
--- OUTSIDE RECORDS SUMMARY | 2024-11-26 22:35 | XMS_ITS | Encounter Summary ---
Author Organization [facility] Address [address] [facility] [address] [place] [address] Phone Care Team Providers Care Forestry Crew Chief Name Role Phone Catie Isabel FAIRING MAN Primary Care Provider +1- [phone] Encounter Details Date Type Department Care Team ([facility] st Contact Info) Description 05/20/2024 Procedure Pass [facility] PERIOPERATIVE DEPT [address] [place] [id number] Social History Tobacco Use Types Packs/Day [...] documented as of this encounter Care Teams Forestry Crew Chief Relationship Specialty Start Date End Date Catie Isabel NP [address] [place] [address] PCP - General Nurse Practitioner 02/22/24 documented as of this encounter Additional Source Comments The information contained in this document represents components of the legal health record. It is not the complete legal health record.[facility]
--- OUTSIDE RECORDS SUMMARY | 2024-11-26 22:35 | XMS_ITS | Encounter Summary ---
Author Organization [facility] Address [address] [place] [phone] Care Team Providers Care Armored Transport Service Manager Name Role Phone Nile Rodarte DO Primary Care Provider [phone] Encounter Details Date Type Department Care Team (Late st Contact Info) Description 05/16/2015 Scanned Document [facility] at [address] [address] Stuart Tracy MD [address] [place] [address] Social History Tobacco Use Types Packs/Day Years [...] Tracy MD IMG SCAN REPORTS Final Result [facility] [place], [place], [facility] documented in this encounter Visit Diagnoses Not on filedocumented in this encounter Care Teams Armored Transport Service Manager Relationship Specialty Start Date End Date Nile Rodarte DO PCP - General Internal Medicine 04/12/15 documented as of this encounter
--- OUTSIDE RECORDS SUMMARY | 2024-11-26 22:35 | XMS_ITS | Encounter Summary ---
Author Organization [facility] Address [address] [place], [place] [id number] Phone Care Team Providers Care Jet Mechanic Name Role Phone Catie Isabel SUSTAINABLE SYSTEMS ANALYST Primary Care Provider +1- [phone] Encounter Details Date Type Department Care Team (Late st Contact Info) Description 02/23/2024 Procedure Pass [facility], Ct Scan - [address] [address] Social History Tobacco Use Types Packs/Day Years [...] documented as of this encounter Care Teams Jet Mechanic Relationship Specialty Start Date End Date Catie Isabel NP [address] [place] [address] PCP - General Nurse Practitioner 02/22/24 documented as of this encounter Additional Source Comments The information contained in this document represents components of the legal health record. It is not the complete legal health record.[facility]
--- OUTSIDE RECORDS SUMMARY | 2024-11-26 22:35 | XMS_ITS | Encounter Summary ---
Author Organization [facility] Address [address] [address] Phone Care Team Providers Care Medical Researcher Name Role Phone Catie Isabel SATELLITE TV TECHNICIAN INSTALLER Primary Care Provider +1- [phone] Encounter Details Date Type Department Care Team (Late st Contact Info) Description 06/04/2024 Procedure Pass [facility] Endoscopy Admitting Dept Virtual Department [address] [place] [address] Social History Tobacco Use Types Packs/Day Years [...] documented as of this encounter Care Teams Medical Researcher Relationship Specialty Start Date End Date Catie Isabel NP [address] [place] [address] PCP - General Nurse Practitioner 02/22/24 documented as of this encounter Additional Source Comments The information contained in this document represents components of the legal health record. It is not the complete legal health record.[facility]
--- OUTSIDE RECORDS SUMMARY | 2024-11-26 22:35 | XMS_ITS | Encounter Summary ---
Author Organization [facility] Address [address] [facility] [address] [place] [address] Phone Care Team Providers Care Distribution Sales Representative Name Role Phone Catie Isabel CAR CHECKER Primary Care Provider +1- [phone] Encounter Details Date Type Department Care Team (Late st Contact Info) Description 05/14/2024 Procedure Pass [facility] Emergency Imaging, Main [address], Floor 1 [place] [address] Social History Tobacco Use Types Packs/Day Years [...] documented as of this encounter Care Teams Distribution Sales Representative Relationship Specialty Start Date End Date Catie Isabel NP [address] [place] [address] PCP - General Nurse Practitioner 02/22/24 documented as of this encounter Additional Source Comments The information contained in this document represents components of the legal health record. It is not the complete legal health record.[facility]
--- OUTSIDE RECORDS SUMMARY | 2024-11-26 22:35 | XMS_ITS | Encounter Summary ---
Author Organization [facility] Address [address] [facility] [address] [place] [address] Phone Care Team Providers Care Manager Gallery Name Role Phone Catie Isabel ANESTHESIOLOGY RESIDENT Primary Care Provider +1- [phone] Encounter Details Date Type Department Care Team (Late st Contact Info) Description 08/13/2024 Procedure Pass [facility], Ct Scan - [address] [address] Social History Tobacco Use Types Packs/Day Years [...] 08/13/2024 6:44 AM Horacio Cohen RN * [place] Suicide Severity Rating Scale (Screener/Recent Self-Report) Question [...] as of this encounter Care Teams Manager Gallery Relationship Specialty Start Date End Date Catie Isabel NP [address] [place] [address] PCP - General Nurse Practitioner 02/22/24 documented as of this encounter Additional Source Comments The information contained in this document represents components of the legal health record. It is not the complete legal health record.[facility]
--- OUTSIDE RECORDS SUMMARY | 2024-11-26 22:35 | XMS_ITS | Encounter Summary ---
Author Organization [facility] Address [address] [address] Phone Care Team Providers Care Cook Ice Cream Name Role Phone Catie Isabel CAMPUS PRESIDENT Primary Care Provider +1- [phone] Encounter Details Date Type Department Care Team (Late st Contact Info) Description 05/13/2024 Procedure Pass [facility] [address] [place] [address] Social History Tobacco Use Types Packs/Day Years [...] 05/13/2024 10:00 PM Jazmin Ferrer RN * [place] Suicide Severity Rating Scale (Screener/Recent Self-Report) Question [...] documented as of this encounter Care Teams Cook Ice Cream Relationship Specialty Start Date End Date Catie Isabel NP [address] [place] [address] PCP - General Nurse Practitioner 02/22/24 documented as of this encounter Additional Source Comments The information contained in this document represents components of the legal health record. It is not the complete legal health record.[facility]
--- OUTSIDE RECORDS SUMMARY | 2024-11-26 22:35 | XMS_ITS | Encounter Summary ---
Author Organization [facility] Address [address] [facility] [address] [place] [address] Phone Care Team Providers Care Computer Lab Aide Name Role Phone Catie Isabel SALES AND TRAINING SPECIALIST Primary Care Provider +1- [phone] Encounter Details Date Type Department Care Team (Late st Contact Info) Description 07/11/2024 Procedure Pass [facility], Ct Scan - [address] [address] Social History Tobacco Use Types Packs/Day Years [...] No Risk Indicated 07/11/2024 9:31 PM Meg Oritz RN * [place] Suicide Severity Rating Scale (Screener/Recent Self-Report) Question [...] documented as of this encounter Care Teams Computer Lab Aide Relationship Specialty Start Date End Date Catie Isabel NP [address] [place] [address] PCP - General Nurse Practitioner 02/22/24 documented as of this encounter Additional Source Comments The information contained in this document represents components of the legal health record. It is not the complete legal health record.[facility]
--- OUTSIDE RECORDS SUMMARY | 2024-11-26 22:35 | XMS_ITS | Encounter Summary ---
Author Organization [facility] Address [address] [facility] [address] [place] [address] Phone Care Team Providers Care Sales Financial Analyst Name Role Phone Catie Isabel WHEELMAN Primary Care Provider +1- [phone] Encounter Details Date Type Department Care Team (Late st Contact Info) Description 04/28/2024 Procedure Pass [facility], Ct Scan - [address] [address] Social History Tobacco Use Types Packs/Day Years [...] 04/28/2024 1:10 PM Laila Booker RN * [place] Suicide Severity Rating Scale (Screener/Recent Self-Report) Question [...] documented as of this encounter Care Teams Sales Financial Analyst Relationship Specialty Start Date End Date Catie Isabel NP [address] [facility] [place] [address] PCP - General Nurse Practitioner 02/22/24 documented as of this encounter Additional Source Comments The information contained in this document represents components of the legal health record. It is not the complete legal health record.[facility]
--- OUTSIDE RECORDS SUMMARY | 2024-11-26 22:35 | XMS_ITS | Clinical Summary ---
Author Organization [address] Address [address] [place] [id number] Phone Care Team Providers Care Outside Solar Sales Consultant Name Role Phone Nile Rodarte DO Primary Care Provider [phone] Allergies No known active allergies Medications PREMARIN 0.625 mg/gram Crea 03/08/2015 Active meclizine (ANTIVERT) 25 mg tablet 03/17/2015 Active permethrin (ELIMITE) 5 % cream APPLY AND KEEP ON OVERNIGHT, RINSE OFF IN THE MORNING. THEN REPEAT IN 1 WEEK 1 05/09/2015 Active NASONEX 50 mcg/actuation [place] USE 2 SPRAYS IN EACH NOSTRIL ONCE [...] Immunization (1 - 1-dose 75+ series) 2023 Influenza vaccine 10/09/2024 Covid-19 vaccine series (2023- season) 2024 Breast cancer screening Discontinued Cervical cancer screening Discontinued Colon cancer screening, Colonoscopy Discontinued Meningococcal B Vaccine Aged Out No l onger eligible based on patient's age to complete this topic Meningococcal Vaccine Aged Out No esdras vanesa eligible based on patient's age to complete this topic Insurance MEDICARE COMMERCIAL GENERIC MEDICARE [employer] GENERIC MEDICARE COMMERCIAL GENERIC MEDICARE COMMERCIAL GENERIC Care Teams Outside Solar Sales Consultant Relationship Specialty Start Date End Date Nile Rodarte DO PCP - General Internal Medicine 04/12/15
--- OUTSIDE RECORDS SUMMARY | 2024-11-26 22:35 | XMS_ITS | Encounter Summary ---
Author Organization [facility] Address [address] [facility] [address] [place] [address] Phone Care Team Providers Care Sugar Controller Name Role Phone Catie Isabel MISSION COORDINATOR Primary Care Provider [phone] Encounter Details Date Type Department Care Team (Late st Contact Info) Description 07/30/2024 Procedure Pass [facility], Ct Scan - [address] [address] Social History Tobacco Use Types Packs/Day Years [...] 07/30/2024 11:26 AM Laila Go RN * [place] Suicide Severity Rating Scale (Screener/Recent Self-Report) Question [...] documented as of this encounter Care Teams Sugar Controller Relationship Specialty Start Date End Date Catie Isabel NP [address] [place] [address] PCP - General Nurse Practitioner 02/22/24 documented as of this encounter Additional Source Comments The information contained in this document represents components of the legal health record. It is not the complete legal health record.[facility]
--- OUTSIDE RECORDS SUMMARY | 2024-11-26 22:35 | XMS_ITS | Encounter Summary ---
Author Organization [facility] Address [address] [place] [address] Phone Care Team Providers Care Head Of Sales And Marketing Name Role Phone Catie Isabel SEATING CAPTAIN Primary Care Provider [phone] Encounter Details Date Type Department Care Team (Late st Contact Info) Description 04/17/2024 Procedure Pass [facility] Endoscopy Admitting Dept Virtual Department [address] [place] [phone] Social History Tobacco Use Types Packs/Day Years [...] documented as of this encounter Care Teams Head Of Sales And Marketing Relationship Specialty Start Date End Date Catie Isabel NP [address] [place] [address] PCP - General Nurse Practitioner 02/22/24 documented as of this encounter Additional Source Comments The information contained in this document represents components of the legal health record. It is not the complete legal health record.[facility]
--- OUTSIDE RECORDS SUMMARY | 2024-11-26 22:35 | XMS_ITS | Encounter Summary ---
Author Organization [facility] Address [address] [place] [address] Phone Care Team Providers Care Wool Hat Finisher Name Role Phone Catie Isabel RETURNED GOODS RECEIVING CLERK Primary Care Provider [phone] Encounter Details Date Type Department Care Team (Late st Contact Info) Description 02/24/2024 Procedure Pass [facility] Endoscopy Admitting Dept Virtual Department [address] [place] [address] Social History Tobacco Use Types Packs/Day Years [...] documented as of this encounter Care Teams Wool Hat Finisher Relationship Specialty Start Date End Date Catie Isabel NP [address] [place] [address] PCP - General Nurse Practitioner 02/22/24 documented as of this encounter Additional Source Comments The information contained in this document represents components of the legal health record. It is not the complete legal health record.[facility]
--- OUTSIDE RECORDS SUMMARY | 2024-11-26 22:35 | XMS_ITS | Encounter Summary ---
Author Organization [facility] Address [address] [facility] [address] [place] [address] Phone Care Team Providers Care Wood Flooring Specialist Name Role Phone Catie Isabel CAR RENTAL MANAGER Primary Care Provider [phone]- [phone] Encounter Details Date Type Department Care Team (Late st Contact Info) Description 05/14/2024 Procedure Pass [facility] [place] [facility], [address] [facility] [place] [address] Social History Tobacco Use Types Packs/Day Years [...] documented as of this encounter Care Teams Wood Flooring Specialist Relationship Specialty Start Date End Date Caite Isabel NP [address] [place] [address] PCP - General Nurse Practitioner 02/22/24 documented as of this encounter Additional Source Comments The information contained in this document represents components of the legal health record. It is not the complete legal health record.[facility]
--- OUTSIDE RECORDS SUMMARY | 2024-11-26 22:35 | XMS_ITS | Clinical Summary ---
Author Organization [facility] Address [address] [place], [place] [id number] Phone Care Team Providers Care Paint Process Engineer Name Role Phone Catie Isabel JOB CHECKER Primary Care Provider [phone]- [phone] Allergies Active Allergy Reactions Criticality Noted Date Comments Diatrizoate Rebeka-Diatrizoat Sod 05/22/2024 She does not. She confirmed several times she has tolerated IV contrast and she just had it a few weeks ago without requiring premedication and with no adverse effects Yoon Acosta [facility] DENISSE Medications VENTOLIN HFA 90 mcg/actuation [...] and rescheduled for June. Had EGD at [facility] in fall 2023 showing gastritis at that time also had treatment for radiation proctitis. Admitted here in February 2024 with bloody stool. Had APC therapy. Rectal mesalamine started. Hemoglobin with initial drop but stable since (Had incidental findings on CT during admission in 02/2024 at [facility] cirrhosis hypodensity in pancreatic neck hypodensity [...] and rescheduled for June. Had EGD at [facility] in fall 2023 showing gastritis at that time also had treatment for radiation proctitis. Admitted here in February 2024 with bloody stool. Had APC therapy. Rectal mesalamine started Hemoglobin with initial drop but stable since (Had incidental findings on CT during admission in 02/2024 at [facility] cirrhosis hypodensity in pancreatic neck hypodensity [...] and rescheduled for June. Had EGD at [facility] in fall 2023 showing gastritis at that time also had treatment for radiation proctitis. Admitted here in February 2024 with bloody stool. Had APC therapy. Rectal mesalamine started Hemoglobin with initial drop but stable since (Had incidental findings on CT during admission in 02/2024 at [facility] cirrhosis hypodensity in pancreatic neck hypodensity [...] and rescheduled for June. Had EGD at [facility] in fall 2023 showing gastritis at that time also had treatment for radiation proctitis. Admitted here in February 2024 with bloody stool. Had APC therapy. Rectal mesalamine started Hemoglobin with initial drop but stable since (Had incidental findings on CT during admission in 02/2024 at [facility] cirrhosis hypodensity in pancreatic neck hypodensity [...] and rescheduled for June. Had EGD at [facility] in fall 2023 showing gastritis at that time also had treatment for radiation proctitis. Admitted here in February 2024 with bloody stool. Had APC therapy. Rectal mesalamine started Hemoglobin with initial drop but stable since (Had incidental findings on CT during admission in 02/2024 at [facility] cirrhosis hypodensity in pancreatic neck hypodensity [...] and rescheduled for June. Had EGD at [facility] in fall 2023 showing gastritis at that time also had treatment for radiation proctitis. Admitted here in February 2024 with bloody stool. Had APC therapy. Rectal mesalamine started Hemoglobin with initial drop but stable since (Had incidental findings on CT during admission in 02/2024 at [facility] cirrhosis hypodensity in pancreatic neck hypodensity [...] and rescheduled for June. Had EGD at [facility] in fall 2023 showing gastritis at that time also had treatment for radiation proctitis. Admitted here in February 2024 with bloody stool. Had APC therapy. Rectal mesalamine started Hemoglobin with initial drop but stable since (Had incidental findings on CT during admission in 02/2024 at [facility] cirrhosis hypodensity in pancreatic neck hypodensity [...] and rescheduled for June. Had EGD at [facility] in fall 2023 showing gastritis at that time also had treatment for radiation proctitis. Admitted here in February 2024 with bloody stool. Had APC therapy. Rectal mesalamine started Hemoglobin with initial drop but stable since (Had incidental findings on CT during admission in 02/2024 at [facility] cirrhosis hypodensity in pancreatic neck hypodensity [...] and rescheduled for June. Had EGD at [facility] in fall 2023 showing gastritis at that time also had treatment for radiation proctitis. Admitted here in February 2024 with bloody stool. Had APC therapy. Rectal mesalamine started Hemoglobin with initial drop but stable since (Had incidental findings on CT during admission in 02/2024 at [facility] cirrhosis hypodensity in pancreatic neck hypodensity [...] and rescheduled for June. Had EGD at [facility] in fall 2023 showing gastritis at that time also had treatment for radiation proctitis. Admitted here in February 2024 with bloody stool. Had APC therapy. Rectal mesalamine started Hemoglobin with initial drop but stable since (Had incidental findings on CT during admission in 02/2024 at [facility] cirrhosis hypodensity in pancreatic neck hypodensity [...] and rescheduled for June. Had EGD at [facility] in fall 2023 showing gastritis at that time also had treatment for radiation proctitis. Admitted here in February 2024 with bloody stool. Had APC therapy. Rectal mesalamine started Hemoglobin with initial drop but stable since (Had incidental findings on CT during admission in 02/2024 at [facility] cirrhosis hypodensity in pancreatic neck hypodensity [...] and rescheduled for June. Had EGD at [facility] in fall 2023 showing gastritis at that time also had treatment for radiation proctitis. Admitted here in February 2024 with bloody stool. Had APC therapy. Rectal mesalamine started Hemoglobin with initial drop but stable since (Had incidental findings on CT during admission in 02/2024 at [facility] cirrhosis hypodensity in pancreatic neck hypodensity [...] and rescheduled for June. Had EGD at [facility] in fall 2023 showing gastritis at that time also had treatment for radiation proctitis. Admitted here in February 2024 with bloody stool. Had APC therapy. Rectal mesalamine started (Had incidental findings on CT during admission in 02/2024 at [facility] cirrhosis hypodensity in pancreatic neck hypodensity [...] and rescheduled for June. Had EGD at [facility] in fall 2023 showing gastritis at that time also had treatment for radiation proctitis. Admitted here in February 2024 with bloody stool. Had APC therapy. Rectal mesalamine started (Had incidental findings on CT during admission in 02/2024 at [facility]. Had follow-up MRI in March reassuring, [...] treated with this. Review of records in [facility] does not reveal a diagnosis of hemochromatosis Fe 44 ferritin 119 Assessment & Plan (05/11/2024 8:30 PM EST): Pt Reports history of hemochromatosis. She denies having had any phlebotomy for this though family members have been treated with this. Review of records in [facility] does not reveal a diagnosis of hemochromatosis Fe 44 ferritin 119 Assessment & Plan (05/10/2024 2:19 PM EST): Pt Reports history of hemochromatosis. She denies having had any phlebotomy for this though family members have been treated with this. Review of records in [facility] does not reveal a diagnosis of hemochromatosis Fe 44 ferritin 119 Assessment & Plan (05/09/2024 10:35 AM EST): Pt Reports history of hemochromatosis. She denies having had any phlebotomy for this though family members have been treated with this. Review of records in [facility] does not reveal a diagnosis of hemochromatosis Fe 44 ferritin 119 Assessment & Plan (05/08/2024 6:41 PM EST): Pt Reports history of hemochromatosis. She denies having had any phlebotomy for this though family members have been treated with this. Review of records in [facility] does not reveal a diagnosis of hemochromatosis Fe 44 ferritin 119 Assessment & Plan (05/07/2024 4:54 PM EST): Pt Reports history of hemochromatosis. She denies having had any phlebotomy for this though family members have been treated with this. Review of records in [facility] does not reveal a diagnosis of hemochromatosis This week iron panel checked, Fe 44 ferritin 119 Assessment & Plan (05/06/2024 10:20 AM EST): Pt Reports history of hemochromatosis. She denies having had any phlebotomy for this though family members have been treated with this. Review of records in [facility] does not reveal a diagnosis of hemochromatosis This week iron panel checked, Fe 44 ferritin 119 Assessment & Plan (05/05/2024 4:47 PM EST): Pt Reports history of hemochromatosis. She denies having had any phlebotomy for this though family members have been treated with this. Review of records in [facility] does not reveal a diagnosis of hemochromatosis This week iron panel checked, Fe 44 ferritin 119 Assessment & Plan (05/04/2024 1:00 PM EST): Pt Reports history of hemochromatosis. She denies having had any phlebotomy for this though family members have been treated with this. Review of records in [facility] does not reveal a diagnosis of [...] managed medically but in May admitted to [facility] with sbo but failed conservative treatment, transferred from [facility] [place] [facility] with partial SBO with multifocal stricturing , and foci concerning for carcinomatosis At [facility] Underwent diagnostic laparoscopy, no visual evidence cancer.per [...] sent for path, no cancer) Presented to [facility] ED 08/13 with several days of abdominal pain. Also reported vomiting CT showed small bowel obstruction with transition point involving distal small bowel loops in the pelvis, cirrhotic liver with small volume ascites [facility] surgeon contacted, said patient could transfer but pt declined. Patient seen by [facility] surgeon. Admitted w/ conservative treatment -n.p.o. [...] managed medically but in May admitted to [facility] with sbo but failed conservative treatment, transferred from [facility] [place] [facility] with partial SBO with multifocal stricturing , and foci concerning for carcinomatosis At [facility] Underwent diagnostic laparoscopy, no visual evidence cancer.per [...] sent for path, no cancer) Presented to [facility] ED 08/13 with several days of abdominal pain. Also reported vomiting CT showed small bowel obstruction with transition point involving distal small bowel loops in the pelvis, cirrhotic liver with small volume ascites [facility] surgeon contacted, said patient could transfer but pt declined. Patient seen by [facility] surgeon. Admitted w/ conservative treatment -n.p.o. [...] managed medically but in May admitted to [facility] with sbo but failed conservative treatment, transferred from [facility] [place] [facility] with partial SBO with multifocal stricturing , and foci concerning for carcinomatosis At [facility] Underwent diagnostic laparoscopy, no visual evidence cancer.per [...] sent for path, no cancer) Presented to [facility] ED 08/13 with several days of abdominal pain. Also reported vomiting CT showed small bowel obstruction with transition point involving distal small bowel loops in the pelvis, cirrhotic liver with small volume ascites [facility] surgeon contacted, said patient could transfer but pt declined. Patient seen by [facility] surgeon. Admitted w/ conservative treatment -n.p.o. [...] managed medically but in May admitted to [facility] with sbo but failed conservative treatment, transferred from [facility] [place] [facility] with partial SBO with multifocal stricturing , and foci concerning for carcinomatosis At [facility] Underwent diagnostic laparoscopy, no visual evidence cancer.per [...] sent for path, no cancer) Presented to [facility] ED 08/13 with several days of abdominal pain. Also reported vomiting CT showed small bowel obstruction with transition point involving distal small bowel loops in the pelvis, cirrhotic liver with small volume ascites [facility] surgeon contacted, said patient could transfer but pt declined. Patient seen by [facility] surgeon. Admitted w/ conservative treatment -n.p.o. [...] managed medically but in May admitted to [facility] with sbo but failed conservative treatment, transferred from [facility] [place] [facility] with partial SBO with multifocal stricturing , and foci concerning for carcinomatosis At [facility] Underwent diagnostic laparoscopy, no visual evidence cancer.per [...] sent for path, no cancer) Presented to [facility] ED 6 with several days of abdominal pain. Also reported vomiting CT showed small bowel obstruction with transition point involving distal small bowel loops in the pelvis, cirrhotic liver with small volume ascites [facility] surgeon contacted, said patient could transfer but pt declined. Patient seen by [facility] surgeon. Admitted w/ conservative treatment -n.p.o. [...] managed medically but in May admitted to [facility] with sbo but failed conservative treatment, transferred from [facility] [place] [facility] with partial SBO with multifocal stricturing , and foci concerning for carcinomatosis At [facility] Underwent diagnostic laparoscopy, no visual evidence cancer.per [...] sent for path, no cancer) Presented to [facility] ED 08/13 with several days of abdominal pain. Also reported vomiting CT showed small bowel obstruction with transition point involving distal small bowel loops in the pelvis, cirrhotic liver with small volume ascites [facility] surgeon contacted, said patient could transfer but pt declined. Patient seen by [facility] surgeon. Admitted w/ conservative treatment -n.p.o. [...] managed medically but in May admitted to [facility] with sbo but failed conservative treatment, transferred from [facility] [place] [facility] with partial SBO with multifocal stricturing , and foci concerning for carcinomatosis At [facility] Underwent diagnostic laparoscopy, no visual evidence cancer.per [...] sent for path, no cancer) Presented to [facility] ED 6/5 with several days of abdominal pain. Also reported vomiting CT showed small bowel obstruction with transition point involving distal small bowel loops in the pelvis, cirrhotic liver with small volume ascites [facility] surgeon contacted, said patient could transfer but pt declined. Patient seen by [facility] surgeon. Admitted w/ conservative treatment -n.p.o. [...] managed medically but in May admitted to [facility] with sbo but failed conservative treatment, transferred from [facility] [place] [facility] with partial SBO with multifocal stricturing , foci concerning for carcinomatosis At [facility] Underwent diagnostic laparoscopy, no cancer.. 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 Surgeon did not intervene at all.. At that time also had cystoscopy and placement of ureteral stents. Since removed Presented to [facility] ED 6/5 with several days of abdominal pain. Also reported vomiting CT showed small bowel obstruction with transition point involving distal small bowel loops in the pelvis, cirrhotic liver with small volume ascites [facility] surgeon contacted, said patient could transfer but pt declined. Patient seen by [facility] surgeon. Admitted w/ conservative treatment -n.p.o. [...] in May failed conservative treatment, transferred from [facility] to [facility] [place] with partial SBO with multifocal stricturing , foci concerning for carcinomatosis Underwent diagnostic laparoscopy, no cancer.. 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 Surgeon did not intervene at all.. At that time also had cystoscopy and placement of ureteral stents. Presented to [facility] ED 08/13 with several days of abdominal pain. Also reported vomiting CT showed small bowel obstruction with transition point involving distal small bowel loops in the pelvis, cirrhotic liver with small volume ascites [facility] surgeon contacted, felt patient could transfer but pt declined. Patient seen by [facility] surgeon. Admitted. Plan for conservative treatment n.p.o. IV fluid bowel rest. Patient seems improved today. Diet changes per surgery (When were r stents removed?) Assessment & Plan (08/13/2024 11:18 PM EDT): This is a 74-year-old female with an extensive history of cirrhosis, colon cancer status post radiation and numerous SBO's who recently underwent diagnostic laparoscopy and cystoscopy placement with ureteral stent at [facility] in May for recurrent small bowel obstruction. [...] that they felt she could stay at [facility] Plan Bowel rest Surgical consult initiated in the emergency department IV fluid Follow labs vital signs and serial exams Antiemetics analgesics [id number] surgeon felt patient could transfer but she [...] transfer for surgical management. Call out to [facility] transfer line, requesting facility with SICU. - [...] Plan (08/22/2024 11:53 AM EDT): Sees a personal care aide regularly. Has an appointment scheduled soon Assessment & Plan (08/21/2024 9:17 AM EDT): Sees a personal care aide regularly. Has an appointment scheduled soon Assessment & Plan (08/20/2024 1:01 PM EDT): Sees a personal care aide regularly. Has an appointment scheduled soon Assessment & Plan (08/19/2024 4:10 PM EDT): Sees a personal care aide regularly. Has an appointment scheduled soon Assessment & Plan (08/18/2024 3:17 PM EDT): Sees a personal care aide regularly. Has an appointment scheduled soon Assessment & Plan (08/17/2024 3:45 PM EDT): Sees a personal care aide regularly. Has an appointment scheduled soon Assessment & Plan (08/16/2024 12:50 PM EDT): Sees a personal care aide regularly. Has an appointment scheduled soon Assessment [...] have gastritis on her EGD done at [place] recently. She says the epigastric discomfort is not new Assessment & Plan (02/27/2024 6:24 PM EST): Continue pantoprazole 40 mg twice daily, added sucralfate. Patient complains of some epigastric discomfort. She did have gastritis on her EGD done at [place] recently. She says the epigastric discomfort is not new Assessment & Plan (02/26/2024 10:40 PM EST): Continue pantoprazole 40 mg twice daily, added sucralfate. Patient complains of some epigastric discomfort. She did have gastritis on her EGD done at [place] recently. She says the epigastric discomfort is not new Assessment & Plan (02/25/2024 3:29 PM EST): Continue pantoprazole 40 mg twice daily, added sucralfate. Patient complains of some epigastric discomfort. She did have gastritis on her EGD done at [place] recently. She says the epigastric discomfort is [...] inhalers for this, denies exacerbation of symptoms Social History Tobacco Use Types Packs/Day Years [...] this topic Medical Devices Not on file Additional Health Concerns Infection Onset Date Last Indicated 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 08/14/2024 Insurance MEDICARE PART A & B [facility] MEDICARE PART A & [place] [facility] [place] [facility] & B [id number] [place] [address] MEDICARE PART A & B [facility] B [facility] Advance Directives For more information, please contact: [phone] (9AM - 5PM [place], Saturday-Saturday) * Full Code (Latest Code Status [...] Status Communicated To: Inpatient Attending Care Teams Paint Process Engineer Relationship Specialty Start Date End Date Catie Isabel NP [address] [facility] [place] [address] PCP - General Nurse Practitioner 02/22/24 Additional Source Comments The information contained in this document represents components of the legal health record. It is not the complete legal health record.[facility]
--- OUTSIDE RECORDS SUMMARY | 2024-11-26 22:35 | XMS_ITS | Encounter Summary ---
Author Organization [facility] Address [address] [place] [id number] Phone Care Team Providers Care Butcher Assistant Name Role Phone Catie Isabel FOOD TECHNOLOGY TEACHER Primary Care Provider [phone]- [phone] Encounter Details Date Type Department Care Team (Late st Contact Info) Description 05/14/2024 Procedure Pass [facility] [address] [place] [address] Social History Tobacco Use Types Packs/Day Years [...] documented as of this encounter Care Teams Butcher Assistant Relationship Specialty Start Date End Date Catie Isabel NP [address] [place] [id number] PCP - General Nurse Practitioner 02/22/24 documented as of this encounter Additional Source Comments The information contained in this document represents components of the legal health record. It is not the complete legal health record.[facility]
[2024-11-26 22:48] VITALS: PULSE 102; RESP 24; O2SAT 96
--- NOTE | 2024-11-26 22:54 | ED.GENADULT ---
HPI - General Adult General Chief complaint: Anxiety Stated complaint: chest pain,cough sob Time Seen by Provider: 11/26/24 22:54 Source: patient Mode of arrival: ambulatory Limitations: no limitations History of Present Illness ED Provider: Dr. Yates HPI narrative: 74-year-old female history of interstitial lung disease pulmonary fibrosis Sjogren syndrome presented hospital today for evaluation of abdominal pain. Patient stated that she is having anxiety attack and shortness of breath associated with this as well. She patient describes this is a pain underneath her left breast that radiates down to her left ovaries. Patient stated that she is having some nausea associated with this. She is also complaining of some shortness of breath attributed to her pulmonary fibrosis anxiety. She is not currently on any immunomodulators for her fibrosis. Related Data Home Medications ?Medication ?Instructions ?Recorded ?Confirmed cholecalciferol (vitamin D3) 125 125 mcg PO DAILY 01/05/22 11/12/24 mcg (5,000 unit) capsule multivitamin 1 tab PO DAILY 04/08/22 11/12/24 hydrocodone 5 mg-acetaminophen 325 0.5 tab PO QID PRN severe pain 02/13/24 11/12/24 mg tablet lorazepam 1 mg tablet 1 mg PO BEDTIME PRN Anxiety 02/13/24 11/12/24 guaifenesin 600 mg tablet, 600 mg PO BID 03/23/24 11/12/24 extended release 12 hr (Mucinex) mesalamine 1,000 mg rectal 1,000 mg NE BEDTIME 03/23/24 11/12/24 suppository pantoprazole 40 mg tablet,delayed 40 mg PO BID@0630,1630 03/23/24 11/12/24 release fluticasone propionate 50 2 spray intranasal DAILY 11/12/24 11/12/24 mcg/actuation nasal spray,suspension gabapentin 100 mg capsule 300 mg PO TID 11/12/24 11/12/24 ipratropium 0.5 mg-albuterol 3 mg 3 ml inhalation Q6H PRN wheezing 11/12/24 11/12/24 (2.5 mg base)/3 mL nebulization soln Previous Rx's ?Medication ?Instructions ?Recorded lidocaine 5 % topical patch 1 patch topical DAILY PRN Pain #30 10/24/22 (Lidoderm) ea polyethylene glycol 3350 17 gram 17 g PO DAILY PRN Constipation #30 02/20/24 oral powder packet ea sucralfate 100 mg/mL oral 2 g (20 mL) NE BID #1,000 mL 02/20/24 suspension hydroxychloroquine 200 mg tablet 300 mg (1.5 x 200 mg) PO DAILY 90 05/28/24 days #135 tabs doxycycline hyclate 100 mg tablet 100 mg PO DAILY Alveolitis 10 11/12/24 days #10 tabs prednisone 10 mg tablet 10 mg PO DIRECTED ILD/ 11/12/24 ALVEOLITIS 4 weeks #28 tabs albuterol sulfate 90 mcg/actuation 2 puff inhalation Q4H PRN 11/17/24 aerosol inhaler (Ventolin HFA) shortness of breath or wheezing #18 ea lorazepam 1 mg tablet (Ativan) 1 mg PO DAILY PRN anxiety 7 days 11/27/24 #7 tabs peg 3350-electrolytes 236 240 ml PO Q10M #4,000 mL 11/27/24 gram-22.74 gram-6.74 gram-5.86 gram solution (GaviLyte-G) Allergies Allergy/AdvReac Type Severity Reaction Status Date / Time ciprofloxacin (From Cipro) AdvReac Intermediate Facial Verified 11/26/24 21:02 redness, lip swelling Review of Systems Review of Systems: Pertinent review of systems as mentioned in HPI. All other system otherwise negative. [facility] Past Medical History [facility] Narrative: Medical history as mentioned in HPI Medical History (Updated 11/27/24 @ 05:18 by Georgie Yates DO) Fibrosing alveolitis Interstitial lung disease SBO (small bowel obstruction) Syncope Abdominal pain Bronchiectasis Shoulder pain, bilateral UTI (urinary tract infection) Arthralgia Dizziness Dysuria Acute sinusitis Periumbilical abdominal pain Flank pain Left flank pain Annual physical exam IBS (irritable bowel syndrome) Gastritis Cough Fatigue Scabies Post covid-19 condition, unspecified Elevated LFTs Diarrhea Sinusitis Bronchitis Well woman exam COPD (chronic obstructive pulmonary disease) Radiation proctitis Radiation enteritis Postmenopausal bleeding History of colon cancer Rectal bleeding Asthma Vertigo Seasonal allergies Hyperglycemia Palpitation Hemochromatosis Tubular adenoma Colon cancer Vaginal cancer Surgical History History of cholecystectomy History of esophagogastroduodenoscopy (EGD) H/O colonoscopy H/O colectomy Family History Family History Father Dementia GSW (gunshot wound) CAD (coronary artery disease) Mother GSW (gunshot wound) Family/Other Diabetes mellitus Brother CAD (coronary artery disease) Sister Multiple sclerosis Sister Rheumatoid arthritis Sister Rheumatoid arthritis Social History Social History Household Members: None Household Members Other:: aunt a 96 years old Housing: House Are you a primary nurse behavioral health care to a significant other at home: No Do you presently have visiting nurse or other home services: No Unable to assess alcohol history related to: Unknown Alcohol intake: never Patient Tobacco Use Status: Never used Tobacco Smoked in Last 30 Days: No e-Cigarette/Vaping Use: Never Used Second Hand Smoke Exposure: No Use of substances other than those prescribed or required for medical reasons: No Advance Directives: Yes Advance Directives Information Provided: Yes Advance Directives on File: Yes Advance Directives Date on File: 04/09/22 service: No Current occupational status: unemployed Sexual orientation: Straight/Heterosexual Gender identity: Female Physical Exam ED Exam Exam: General: Pleasant, no distress, interacting appropriately Head: Normacephalic, atraumatic ENT: oral mucosa moist, neck supple, no tracheal deviation Cardiovascular: regular rate, regular rhythm, no murmurs, rubbing, gallops Respiratory: Wheezing bilaterally, diminished lung sounds bilaterally Gastrointestinal: Soft, non distended, left-sided flank pain Extremities: No limb pain or swelling, no calf tenderness Neurological: Awake and alert, no facial droop noted Skin: Warm and dry Psychiatric: Appropriate mood and thoughts Vital Signs: Vital Signs - 24 hr 11/26/24 20:56 11/26/24 22:48 11/26/24 23:47 Temperature 98.1 F 98.5 F Pulse Rate 95 102 H 110 H Respiratory Rate 18 24 H 18 Blood Pressure 114/57 L 100/49 L Pulse Oximetry 97 94 Oxygen Delivery Method Room Air Room Air 11/27/24 02:56 11/27/24 04:30 Temperature 98.5 F 98.9 F Pulse Rate 103 H 95 Respiratory Rate 18 18 Blood Pressure 113/56 L 114/66 Pulse Oximetry 99 97 Oxygen Delivery Method Room Air Room Air BMI result Body Mass Index 26.2 Medications Administered Discontinued Medications Generic Name Dose Route Start Last Admin Trade Name [place] PRN Reason Stop Dose Admin Levalbuterol HCl 2.5 mg/ 0 mg 11/26/24 22:39 11/26/24 22:56 Ipratropium [place] 0.5 mg INHALE 11/26/24 22:40 1 dose ONCE ONE Administration Famotidine 20 mg 11/26/24 23:30 11/27/24 00:01 Famotidine/Pf 20 Mg/2 Ml Vial IVPUSH 11/26/24 23:31 20 mg ONCE ONE Administration Sodium Chloride 1,000 mls @ 999 mls/hr 11/26/24 23:30 11/27/24 01:51 Ns IV 11/27/24 00:30 Infused .Q1H1M [place] Infusion Sodium Chloride 500 mls @ 500 mls/hr 11/27/24 04:15 11/27/24 04:59 Ns IV 11/27/24 05:14 Not Given .Q1H [place] Iohexol 85 ml 11/27/24 01:53 11/27/24 01:54 Iohexol 350 Mg/Ml 100 Ml Infus..Btl IV 11/27/24 01:54 85 ml ONCE ONE Administration Lorazepam 1 mg 11/26/24 23:31 11/27/24 00:01 Lorazepam 1 Mg Tablet PO 11/26/24 23:32 1 mg ONCE ONE Administration Magnesium Citrate 300 ml 11/27/24 02:43 11/27/24 03:08 Magnesium Citrate 300 Ml Solution PO 11/27/24 02:44 300 ml ONCE ONE Administration Morphine Sulfate 4 mg 11/26/24 23:30 11/27/24 00:01 Morphine Sulfate 4 Mg/Ml Cartridge IVPUSH 11/26/24 23:31 4 mg ONCE ONE Administration Protocol Morphine Sulfate 4 mg 11/27/24 03:02 11/27/24 03:23 Morphine Sulfate 4 Mg/Ml Cartridge IVPUSH 11/27/24 03:03 4 mg ONCE ONE Administration Protocol Ondansetron HCl 4 mg 11/26/24 23:30 11/27/24 00:01 Ondansetron Hcl 4 Mg/2 Ml Vial IVPUSH 11/26/24 23:31 4 mg ONCE ONE Administration Prednisone 40 mg 11/26/24 23:31 11/27/24 00:01 Prednisone 20 Mg Tablet PO 11/26/24 23:32 40 mg ONCE ONE Administration Medical Decision Making Medical Decision Making [facility] Narrative: This is a 74-year-old female history of pulmonary fibrosis and surgical lung disease presented hospital today for evaluation of shortness of breath anxiety and abdominal pain with long with nausea and vomiting. Review patient's lab work. No sign of leukocytosis slight anemia at 11.0. Patient's chemistries unremarkable, does have elevated BUN to creatinine ratio, patient's has slight transaminitis. She has reported that she has history of cirrhosis in the past. She states she has a lesion on her liver in the past. She does complain of more bloating as well. Troponin is negative here. BNP is not elevated. Review patient's EKG. EKG shows normal sinus rhythm. No STEMI. Chest x-ray showed fibrotic changes no signs of pneumonia. Similar to previous chest x-ray review on 03/29/2024. The patient does appear to be nauseous we will obtain a CT abdomen and pelvis to further assess the cause of her nausea. CT imaging did not show any signs of acute findings. She does have signs of fibrosis of liver consistent with history of cirrhosis. Patient does appear to be improved. No longer tachycardic. Patient appears to be much more comfortable at this time. I did review patient's CT imaging. I did notice a large amount of stool burden. We will plan to discharge patient with the [facility]. Discussed this with the patient as well. She agrees and understands this plan. Short course of Ativan will be prescribed the patient for her anxiety. She does have a follow up appointment with her doctor on December 09. Differential Diagnosis Differential Diagnoses: The differential diagnosis associated with the presentation includes Neoplasm, cholecystitis, gastritis, nausea vomiting Lab Data [facility] Lab Attestation statement: I reviewed the patient's lab results. 11/26/24 21:43 11/26/24 21:43 Labs: Lab Results 11/26/24 Range/Units 21:43 WBC 6.5 (4.8-10.8) X10*3/uL RBC 3.27 L (4.20-5.50) X10*6/uL Hgb 11.0 L (12.0-16.0) g/dl Hct 32.6 L (37.0-47.0) % MCV 99.7 H (80.0-98.0) fL MCH 33.6 H (27.0-33.0) pg MCHC 33.7 (31.0-35.0) g/dl RDW 14.4 (11.0-16.0) % Plt Count 240 (160-400) X10*3/uL MPV 9.0 L (9.4-12.3) fL Absolute Nucleated RBC 0.000 (0.0-0.012) X10*3/uL Nucleated RBC % (auto) 0.0 (0.0-0.2) /100WBC Sodium 139 (135-145) mmol/L Potassium 5.0 (3.3-5.1) mmol/L Chloride 109 H (96-108) mmol/L Carbon Dioxide 22 (22-29) mmol/L Anion Gap 13 (12-20) BUN 23 H (9-16) mg/dL Creatinine 0.88 (0.5-1.4) mg/dL Estim Creat Clear Calc 48.1 Estimated GFR > 60 Random Glucose 82 (60-115) mg/dL Calcium 9.0 (8.4-10.2) mg/dL Magnesium 2.4 (1.6-2.6) mg/dL Total Bilirubin 0.3 (0.0-1.0) mg/dL AST 64 H (5-31) U/L ALT 53 H (0-31) U/L Alkaline Phosphatase 129 H (39-117) U/L Troponin I High Sens < 2.7 (<3.5-17.0) ng/L NT-Pro-B Natriuret Pep 77.7 (<300) pg/mL Total Protein 8.1 H (6.5-8.0) g/dL Albumin 3.7 (3.5-5.0) g/dL Independent Interpretation I performed an independent interpretation of an: CT Scan Radiology Impression Discussion of test interpretation with radiology: I have reviewed the radiologist's reading. Chronic Conditions Pulmonary fibrosis, cirrhosis Discharge Plan Discharge Clinical Impression: Constipation Qualifiers: Constipation type: unspecified constipation type Qualified Code(s): K59.00 - Constipation, unspecified Patient Disposition: Home, Self-Care Prescriptions: New peg 3350-electrolytes [GaviLyte-G] 236-22.74-6.74 -5.86 gram recon soln 240 ml PO Q10M Qty: 4000 0RF Rx Instructions: until fecal effluent is clear lorazepam [Ativan] 1 mg tablet 1 mg PO DAILY PRN (Reason: anxiety) 7 Days Qty: 7 0RF No Action hydroxychloroquine 200 mg tablet 300 mg PO DAILY 90 Days Qty: 135 0RF albuterol sulfate [Ventolin HFA] 90 mcg/actuation HFA aerosol inhaler 2 puff inhalation Q4H PRN (Reason: shortness of breath or wheezing) Qty: 18 4RF multivitamin Tablet 1 tab PO DAILY mesalamine 1,000 mg suppository 1,000 mg NE BEDTIME guaifenesin [Mucinex] 600 mg Tablet Extended Release 12hr 600 mg PO BID pantoprazole 40 mg tablet,delayed release (DR/EC) 40 mg PO BID@0630,1630 hydrocodone-acetaminophen 5-325 mg tablet 0.5 tab PO QID PRN (Reason: severe pain) lorazepam 1 mg tablet 1 mg PO BEDTIME PRN (Reason: Anxiety) sucralfate 100 mg/mL Suspension 2 g NE BID Qty: 1000 0RF polyethylene glycol 3350 17 gram Powder In Packet 17 g PO DAILY PRN (Reason: Constipation) Qty: 30 0RF cholecalciferol (vitamin D3) 125 mcg (5,000 unit) capsule 125 mcg PO DAILY ipratropium-albuterol 0.5 mg-3 mg(2.5 mg base)/3 mL solution for nebulization 3 ml inhalation Q6H PRN (Reason: wheezing) gabapentin 100 mg capsule 300 mg PO TID fluticasone propionate 50 mcg/actuation spray,suspension 2 spray intranasal DAILY prednisone 10 mg tablet 10 mg PO DIRECTED 28 Days Qty: 28 1RF Rx Instructions: 1 tab. (10 mg ) bid for 14 days , then 10 mg once a day to continue doxycycline hyclate 100 mg tablet 100 mg PO DAILY 10 Days Qty: 10 0RF lidocaine [Lidoderm] 5 % adhesive patch,medicated 1 patch topical DAILY PRN (Reason: Pain) Qty: 30 2RF Rx Instructions: leave on most painful area for up to 12 hours Print Language: Haitian
[2024-11-26] MEDS: levalbuterol HCL 2.5 MG, Ipratropium Bromide 0.5 MG INHALE (22:56)
[2024-11-26 23:47] VITALS: BP 100/49; PULSE 110; RESP 18; TEMP 36.9; O2SAT 94
[2024-11-27] MEDS: iohexoL 350 MG/ML 100 ML INFUS..BTL 85 ML IV (01:54)
[2024-11-27 02:56] VITALS: BP 113/56; PULSE 103; RESP 18; TEMP 36.9; O2SAT 99
[2024-11-27 04:30] VITALS: BP 114/66; PULSE 95; RESP 18; TEMP 37.2; O2SAT 97
[2024-11-27 05:37] VITALS: BP 99/59; PULSE 100; RESP 18; TEMP 37.1; O2SAT 96
[2024-11-27] MEDS: oxyCODONE HCl Immed Release 5 MG TABLET PO (05:39)
[2024-11-27 06:01] VITALS: BP 99/59; PULSE 100; RESP 18; TEMP 37.1; O2SAT 96
== END 2024-11-27 06:01 | disposition home or self-care (01) ==
PROVIDERS: Emergency Provider Student in an Organized Health Care Education/Training Program
DX: K59.00 Constipation, unspecified (principal); F41.9 Anxiety disorder, unspecified; D64.9 Anemia, unspecified; K74.60 Unspecified cirrhosis of liver; M35.00 Sjogren syndrome, unspecified; Z87.09 Personal history of other diseases of the respiratory system; Z87.19 Personal history of other diseases of the digestive system
CPT/HCPCS: 36415; 71046; 74177; 80053; 83735; 83880; 84484; 85027; 93005; 94640; 96361; 96374; 96375; 96376; 99285; J1308; J2270; J2405; Q9967

== ENCOUNTER → 2024-11-26 20:46 | Outpatient (BNV) | payer MEDICARE, MEDICAID, SELFPAY | PROVIDERS: Emergency Provider Student in an Organized Health Care Education/Training Program; Visit Provider Internal Medicine | DX: R94.31 Abnormal electrocardiogram [ECG] [EKG] (principal); R07.9 Chest pain, unspecified | CPT/HCPCS: 93010 ==

== ENCOUNTER 2024-12-11 20:07 | Inpatient (IN) | payer MEDICARE, MEDICAID, SELFPAY ==
--- OUTSIDE RECORDS SUMMARY | 2024-12-09 14:30 | XMS_ITS | Encounter Summary ---
Author Organization [facility] Address [address] [place] [address] Care Team Providers Care Kaiwhakahaere Name Role Phone Catie Isabel MEDICAL BILLING AND CODING SPECIALIST Primary Care Provider [phone] Reason for Visit * Reason Comments Cirrhosis Encounter Details Date Type Department Care Team (Late st Contact Info) Description 12/09/2024 2:30 PM EDT Office Visit Internal [facility] [address] [place] [address] Catie Isabel NP [address] [facility] [place] [address] Primary osteoarthritis involving multiple joints (Primary Dx); Interstitial lung disease (CMS/HCC V24, CMS/HCC V28); Recurrent intestinal obstruction (CMS/HCC V24, CMS/HCC V28); Hepatic cirrhosis, unspecified hepatic cirrhosis type, unspecified whether ascites present (CMS/HCC V24, CMS/HCC V28); History of cancer of vagina Social History Tobacco Use Types Packs/Day Years Used Date Smoking Tobacco: Never Alcohol Use Standard Drinks/Week Comments No 0 (1 standard drink = 0.6 oz pur e alcohol) Interpersonal Safety Answer Date Record ed Physical Abuse Unrecognized value 12/02/2024 Verbal Abuse Unrecognized value 12/02/2024 Comments No Sex and Gender Information Value Date Recorded Sex Assigned at Female 09/08/2024 3:52 PM EDT Legal Sex Female 2:55 PM EST Gender Identity Female 09/08/2024 3:52 PM EDT Sexual Orientation Straight 09/08/2024 3: 52 PM EDT documented as of this encounter Last Filed Vital Signs Vital Sign Reading Time Taken Comments Blood Pressure 103/66 12/09/2024 2:20 PM EDT A Pulse 97 12/09/2024 2:20 PM EDT Temperature - - Respiratory Rate - - Oxygen Saturation - - Inhaled Oxygen Concentration - - Weight 65.3 kg (144 lb) 12/09/2024 2:20 PM EDT Height 157.5 cm (5' 2 ) 12/09/2024 2:20 PM EDT Body Mass Index 26.34 12/09/2024 2:20 PM EDT documented in this encounter Progress Notes * Catie Isabel NP - 12/09/2024 2:30 PM EDT CHIEF COMPLAINT: Cirrhosis IDENTIFIER: Erin Mooney is a 74 y.o. old female. HPI: Erin Mooney is here requesting forms to be completed. She has a history of cirrhosis, recently diagnosed with esophageal varices and chordal hypertensive gastropathy after completing a recent endoscopy. 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 She has also been hospitalized multiple times this year for intestinal obstructions. Her latest labs revealed a stable H&H. She is following up with the gastroenterology team next week to review endoscopy results. She also has interstitial lung disease, this causes dyspnea on exertion. She follows with Dr. Viveros.She is on Breo Ellipta and DuoNebs for management. She is requesting a form to submit to her [employer] stating that she has serious chronic medical condition requiring use of an electronic device i.e. nebulizer that is essential to her chronic condition management. She is also on contract for Vicodin use as needed for severe osteoarthritis of multiple joints. Dueto her cirrhosis, she was switched to oxycodone to eliminate the acetaminophen but did not toleratethis stating it made her feel sick. She trialed tramadol but stated it was not effective at managing her pain. She understands the risks associated with continued acetaminophen use and liver disease. She is planning to go to [place] to meet with stem cell office support specialist there but was not cleared to fly due to her lung disease. She has since found a local stem cell treatment center and will be meeting with them later this month. She is hoping treatment will help her interstitial lung disease and cirrhosis. ROS: Constitutional: no weakness fever/ sweats, or weight change HEENT: no acute vision changes, ear pain, sore throat, nasal discharge. Respiratory: Chronic shortness of breath cardiovascular:no chest pain or palpitations, no orthopnea or edema GI: abdominal pain, current GI bleed MSK: no joint or muscle pain, swelling or impaired ROM Neuro: no acute headaches, dizziness, weakness. PAST MEDICAL HISTORY: Patient Active Problem List Diagnosis Date Noted Secondary esophageal varices without bleeding ([facility] V24, [facility] V28) 12/09/2024 Portal hypertensive gastropathy ([facility] V24, [facility] V28) 12/09/2024 Bowel incontinence 09/18/2024 Pelvic pain 09/18/2024 Disorder of rotator cuff 09/18/2024 Hypovitaminosis D 09/18/2024 History of cancer of vagina 09/18/2024 Obesity 09/18/2024 Skin excoriation 09/18/2024 PMB (postmenopausal bleeding) 09/18/2024 Vaginal bleeding 09/18/2024 Vulvar itching 09/18/2024 IPMN (intraductal papillary mucinous neoplasm) 08/15/2024 Cirrhosis ([facility] V24, [facility] V28) 08/14/2024 Shingles 08/13/2024 Interstitial lung disease ([facility] V24, [facility] V28) 07/20/2024 Recurrent intestinal obstruction ([facility] V24, [facility] V28) 07/20/2024 Anemia 04/29/2024 Hyponatremia 02/22/2024 Primary osteoarthritis involving multiple joints 10/09/2023 Primary osteoarthritis of right shoulder 10/09/2023 Anxiety 10/01/2023 Allergic rhinitis 09/24/2018 Aortic atherosclerosis ([facility] V24) 09/24/2018 Diverticulosis 09/24/2018 Elevated LFTs 09/24/2018 GERD (gastroesophageal reflux disease) 09/24/2018 Hemochromatosis, hereditary ([facility] V24) 09/24/2018 Hypertension 09/24/2018 IBS (irritable bowel syndrome) 09/24/2018 Intrahepatic bile duct dilation 09/24/2018 JUAN (nonalcoholic steatohepatitis) 09/24/2018 Osteoarthritis 09/24/2018 Osteopenia 09/24/2018 Pancreatic insufficiency 09/24/2018 Pancreatitis 09/24/2018 Tubular adenoma 09/24/2018 Tubular adenoma of colon 09/11/2016 Strain of left rotator cuff capsule 05/01/2015 Strain of right rotator cuff capsule 05/01/2015 ACTIVE MEDICATIONS: Medications Taking[1] ALLERGIES: Allergies[2] PHYSICAL EXAM: Visit Vitals BP 103/66 Comment: A Pulse 97 Ht 1.575 m (62 ) Wt 65.3 kg (144 lb) BMI 26.34 kg/m?? OB Status Postmenopausal Smoking Status Never BSA 1.66 m?? General: the patient is awake, alert, cooperative and in no acute distress. Head/Neck: Neck supple, PERRLA, EOMI Lungs: clear to auscultation without increased respiratory rate or effort. Heart: RRR. S1 and S2 heard, no MRG Extremities: no edema, motor/sensory intact, +equal pulses b/l NEURO: AAOx3, CN intact SKIN: skin intact without obvious rashes, sores or lesions. LABS: Lab Results Component Value Date NA 138 10/12/2024 K 4.2 10/12/2024 CL 107 10/12/2024 CO2 25 10/12/2024 GLUCOSE 94 10/12/2024 BUN 22 10/12/2024 CREATININE 0.79 10/12/2024 CALCIUM 9.2 10/12/2024 PROT 7.3 10/12/2024 ALBUMIN 3.1 (L) 10/12/2024 BILITOT 0.4 10/12/2024 AST 51 (H) 10/12/2024 ALT 49 10/12/2024 ALKPHOS 164 (H) 10/12/2024 EGFR 78 10/12/2024 IMPRESSION: 1. Primary osteoarthritis involving multiple joints 2. Interstitial lung disease (CMS/HCC V24, CMS/HCC V28) 3. Recurrent intestinal obstruction (CMS/HCC V24, CMS/HCC V28) 4. Hepatic cirrhosis, unspecified hepatic cirrhosis type, unspecified whether ascites present (CMS/HCC V24, CMS/HCC V28) 5. History of cancer of vagina ASSESMENT/ PLAN: Primary osteoarthritis: Patient continues Vicodin as needed. She is on contract. Interstitial lung disease with chronic dyspnea on exertion. Letter provided to the patient today tosupply to her [employer] stating she does have a chronic medical condition that requires nebulizer treatments. Continue follow-up with pulmonology. Hepatic cirrhosis with esophageal varices and portal hypertensive gastropathy: Suspect this is contributing to her chronic abdominal pain. She will follow-up with GI this month. 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 I have maintained a long-term, longitudinal relationship with this patient, overseeing care of chronic conditions including osteoarthritis ILD hepatic cirrhosis. This care relationship has significantly influenced my decision making and treatment plans during today's encounter. Medication and lab orders: No orders of the defined types were placed in this encounter. Other orders: None Catie Isabel NP on 12/09/2024 at 2:51 PM EDT Today's documentation was made using voice recognition software.This note may contain grammatical errors secondary to this software. [1] Outpatient Medications Marked as Taking for the 12/09/24 encounter (Office Visit) with Catie Isabel NP Medication Sig Dispense Refill castor oiL 100 % Take by mouth 1 (one) time each day if needed for constipation. fluticasone furoate-vilanteroL (Breo Ellipta) 200-25 mcg/dose inhaler Inhale 1 puff by mouth 1 (one) time each day. 3 each 3 fluticasone propionate (FLONASE) 50 mcg/actuation nasal spray Administer 2 sprays into each nostril1 (one) time each day. Shake gently. Before first use, prime pump. After use, clean tip and replacecap. 16 g 5 gabapentin (NEURONTIN) 300 mg capsule Take 1 capsule (300 mg total) by mouth 3 (three) times a day if needed (back pain). HYDROcodone-acetaminophen (NORCO) 5-325 mg per tablet Take 1 tablet by mouth 2 (two) times a day ifneeded for severe pain. Max Daily Amount: 2 tablets 56 tablet 0 ipratropium-albuteroL (DUONEB) 0.5-2.5 mg/3 mL nebulizer solution TAKE 3 ML BY NEBULIZER EVERY 6 HOURS NEEDED FOR WHEEZE 360 mL 11 LORazepam (ATIVAN) 1 mg tablet Take 1 tablet (1 mg total) by mouth 2 (two) times a day if needed for anxiety. Max Daily Amount: 2 mg 56 tablet 0 mesalamine (CANASA) 1,000 mg suppository Insert 1 suppository (1,000 mg total) into the rectum at bedtime. Use as directed 90 suppository 0 ondansetron ODT (ZOFRAN-ODT) 4 mg disintegrating tablet Dissolve 1 tablet (4 mg total) on top of the tongue every 8 (eight) hours if needed for nausea or vomiting. 20 tablet 0 pantoprazole (PROTONIX) 40 mg EC tablet Take 1 tablet (40 mg total) by mouth. umeclidinium (Incruse Ellipta) 62.5 mcg/actuation inhalation Inhale 1 puff by mouth 1 (one) time each day. 1 each 2 Ventolin HFA 90 mcg/actuation inhaler Inhale 2 puffs by mouth 1 (one) time each day. 6.7 g 3 [2] Allergies Allergen Reactions Diatrizoate Rebeka-Diatrizoat Sod Other unresponsive documented in this encounter Plan of Treatment Upcoming Encounters Date Type Department Care Team (Late st Contact Info) Description 12/16/2024 2:20 PM EDT Office Visit Gastroenterology - [address] [address] Lori Vicente NP [address] [place] [address] 01/25/2025 12:45 PM EST Ancillary Procedure Pulmonology - [address] [phone] 01/28/2025 2:45 PM EST Office Visit Pulmonology - [address] [address] Marisa Viveros MD [address] [address] documented as of this encounter Visit Diagnoses Diagnosis Primary osteoarthritis involving multiple joints- Primary Interstitial lung disease (CMS/HCC V24, CMS/HCC V28) Postinflammatory pulmonary fibrosis Recurrent intestinal obstruction (CMS/HCC V24, CMS/HCC V28) Unspecified intestinal obstruction Hepatic cirrhosis, unspecified hepatic cirrhosis type, unspecified whether ascites present (CMS/HCC V24, CMS/HCC V28) History of cancer of vagina documented in this encounter Additional Health Concerns Assessment Noted Time PHQ-9 Depression Total Score: 0 01/16/20 2:37 PM EST A fall risk assessment has been complete d for the patient 01/16/2024 2:32 PM EST documented as of this encounter Care Teams Kaiwhakahaere Relationship Specialty Start Date End Date Catie Isabel NP [address] [place] [address] PCP - General 09/30/23 documented as of this encounter
--- NOTE | ~2024-12-11 | CT_ITS ---
CLINICAL HISTORY: bilateral lower quad pain, hx partial colectomy CT abdomen and pelvis with contrast Comparison: CT/REG/SR - CT ABDOMEN PELVIS W IV CON - 11/27/2024 12:57 AM EDT Findings: Chronic lung changes/scarring identified within the visualized portions of the bilateral lung bases. The liver is nodular in contour, consistent with cirrhosis. The gallbladder is surgically absent. Stable appearance of the biliary tree. The spleen, pancreas, and bilateral adrenal glands are within normal limits for appearance. solid organs are within normal limits. No hydronephrosis or hydroureter. No free intraperitoneal air. Mildly dilated small bowel loop with an internal air-fluid level present at the lower abdomen near the midline, measuring up to 3.4 cm in maximum diameter on axial image number 68 of series 3. There appear to be postsurgical changes of the rectum. There is mild inferior displacement of the rectum, suggesting sequela of pelvic organ prolapse. Mild rectal wall thickening present. [id number]-[id number] colonic stool burden. Pelvic contents unremarkable. The bladder is underdistended, mildly limiting its evaluation. Minimal gas is identified within the nondependent portion of the bladder lumen. The appendix is not confidently visualized on this exam. No acute fracture visualized. Multilevel degenerative disc disease/vacuum disc phenomenon present at the lumbar spine. IMPRESSION: 1. Mildly dilated small bowel loop with an internal air-fluid level present at the lower abdomen near the midline, measuring up to 3.4 cm in maximum diameter. A developing low-grade/partial small bowel obstruction or mild, focal bowel ileus is not excluded. No CT evidence for high-grade bowel obstruction. 2. Minimal gas identified within the nondependent portion of the bladder lumen. This is nonspecific but may be iatrogenic in the setting of recent intervention/catheterization. Alternatively, infection may produce a similar appearance. Clinical correlation is advised. 3. Mild inferior displacement of the rectum, suggesting sequela of pelvic organ prolapse. There is mild rectal wall thickening which may be related to rectal underdistention or a subtle proctitis. This document has been electronically signed by: Chidi Howell MD on 12/12/2024 02:44:39
--- NOTE | ~2024-12-11 | MR_ITS ---
EXAMINATION: MR ABDOMEN WITHOUT CONTRAST CLINICAL INFORMATION: Increasing common bile duct dilatation COMPARISON: Previous CT of the abdomen and pelvis most recent December 12, 2024 and MR of the abdomen February 2017 TECHNIQUE: MR abdomen is performed without gadolinium contrast. R CP sequences were performed. FINDINGS: LUNG BASES: The visualized lung bases are unremarkable. LIVER, GALLBLADDER, AND BILIARY TREE: The liver is normal in size and signal. The liver is slightly irregular contour suggestive of mild cirrhosis. No focal lesion. There is intra and extrahepatic biliary duct dilatation. There is low insertion of the cystic duct. Common hepatic duct measures up to 1.8 cm increased from 1.1 and 1.6 cm on prior exam. This tapers smoothly distally and the head of the pancreas. The distal common bile duct does not appear dilated measuring 5 mm. The cystic duct remnant is dilated measuring 10.4 mm. This is similar to previous exam. PANCREAS: There is a cyst in the head of the pancreas measuring 7 x 7 x 10 mm there are additional smaller cysts scattered throughout the pancreas for example measuring 2 to 3 mm in the body coronal image 13 and 14 series 3. This is new from prior MRI. The main pancreatic duct does not appear dilated. No filling defect seen. SPLEEN: Unremarkable. ADRENAL GLANDS: Unremarkable. KIDNEYS AND URETERS: 1 cm intermediate signal T1 low signal T2 lesion in the posterior upper pole of the left kidney. This is new from prior MRI and indeterminate. There are additional small low signal T1 and high signal T2 lesions throughout both kidneys probably representing cysts. No hydronephrosis. GASTROINTESTINAL TRACT: No bowel obstruction. No ascites or fluid collection. ABDOMINAL WALL: No significant hernia is appreciated. LYMPH NODES: No lymphadenopathy. VASCULAR: Unremarkable. OSSEOUS STRUCTURES: Marrow signal normal. Degenerative changes of the spine and mild scoliosis. MR/MR MRCP IMPRESSION: Increasing intra and extrahepatic biliary duct dilatation. The common hepatic duct measures up to 1.8 cm and the distal bile duct tapers smoothly distally in the head of the pancreas measuring 5 mm. No filling defect. Dilated cystic duct remnant measuring 11 mm similar to previous exam. No filling defect. Mild cirrhotic changes of the liver. Several pancreatic cysts, largest measuring 7 x 7 x 11 mm in the head of the pancreas. These are new from previous MRI exams. 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 1 cm indeterminate lesion in the posterior upper pole of the left kidney. Recommend follow-up MRI exam with IV contrast for evaluation of bile ducts, pancreatic cyst and left renal lesion. Electronically signed by: Karol Noguera MD 12/14/2024 04:30 PM EDT
--- NOTE | ~2024-12-11 | CT_ITS ---
EXAMINATION: CT CHEST WITH IV CONTRAST INDICATION: chest pain, difficulty breathing COMPARISON: Comparison is made with the prior examination dated 10/23/2024. TECHNIQUE: Helical CT scan of the chest was performed following administration of intravenous contrast. Coronal and sagittal reformatted images were generated and reviewed. This CT exam was performed with one or more of the following dose reduction techniques: automated exposure control, adjustment of the mA and/or kV according to patient size, use of iterative reconstruction technique. DLP: 266 mGy-cm CHEST: THYROID: The thyroid is unremarkable. LUNGS: Again seen is moderate to severe pulmonary fibrosis with peripheral honeycombing and traction bronchiectasis. No focal airspace opacities are identified. There are no pulmonary nodules. MEDIASTINUM: There is a 1.5 cm precarinal lymph node without change. AIMEE: There is no hilar lymphadenopathy. CARDIOVASCULATURE: The heart is enlarged. There is no pericardial effusion. The thoracic aorta is normal in caliber. DEGREE OF CORONARY CALCIFICATION: none PLEURA: There is no pleural effusion. No pneumothorax. MAIN AIRWAYS: The mainstem bronchi and proximal branches are patent. AXILLA: There is no axillary lymphadenopathy. BONES AND SOFT TISSUES: There is degenerative disc disease of the spine. UPPER ABDOMEN: The visualized portion of the liver demonstrates a nodular contour of cirrhosis. CT/CT chest w IV con IMPRESSION: Moderate to severe pulmonary fibrosis. No focal airspace opacity is identified. Electronically signed by: Abner Fields MD 12/16/2024 02:41 PM EDT
--- NOTE | 2024-12-11 20:11 | ECG_ITS ---
Test Reason : CP Blood Pressure : */* mmHG Vent. Rate : 101 BPM Atrial Rate : 101 BPM P-R Int : 140 ms QRS Dur : 86 ms QT Int : 354 ms P-R-T Axes : 20 -37 1 degrees QTcB Int : 459 ms Sinus tachycardia Left axis deviation Abnormal ECG When compared with ECG of 26-Nov-2024 20:51, No significant change was found Referred By: Generic ED Physician Electronically Signed By: NEEL CHEN
[2024-12-11 20:59] VITALS: BP 99/74; PULSE 94; RESP 22; TEMP 37; O2SAT 97; BMI 26.1
[2024-12-11 21:20] LABS: MANUAL DIFF FLAG NO
[2024-12-11 21:21] LABS: Hematocrit 31.8 % (37.0-47.0); Hemoglobin 10.9 g/dl (12.0-16.0); Imm Gran Abs Auto 0.02 X10*3/uL (0.00-0.03); Imm Gran Pct Auto 0.3 % (0.0-0.4); Lymphocytes Absolute Auto 1.0 X10*3/uL (1.2-4.9); Mean Corpuscular HGB Conc 34.3 g/dl (31.0-35.0); Mean Corpuscular Hemoglobin 33.6 pg (27.0-33.0); Mean Corpuscular Volume 98.1 fL (80.0-98.0); NRBC Abs Auto 0.000 X10*3/uL (0.0-0.012); NRBC Pct Auto 0.0 /100WBC (0.0-0.2); Platelet Count 194 X10*3/uL (160-400); Red Blood Count 3.24 X10*6/uL (4.20-5.50); White Blood Count 5.8 X10*3/uL (4.8-10.8)
[2024-12-11 21:29] LABS: Appearance Urine Clear; Glucose Urine UA Negative (Negative); PH 5.5 (5.0-9.0); Specific Gravity - Urine 1.025 (1.005-1.025); UMIC TRIGGER UACC YES
[2024-12-11 21:35] LABS: Alanine Aminotransferase 45 U/L (0-31); Albumin Level 3.7 g/dL (3.5-5.0); Alkaline Phosphatase 126 U/L (39-117); Anion Gap 10 (12-20); Aspartate Amino Transferase 61 U/L (5-31); Blood Urea Nitrogen 23 mg/dL (9-16); Calcium 8.9 mg/dL (8.4-10.2); Carbon Dioxide 23 mmol/L (22-29); Chloride 109 mmol/L (96-108); Creatinine Clr Calc Pharmacy 57.1; Estimated Glomerular Filt Rate > 60; Potassium 4.4 mmol/L (3.3-5.1); Sodium 138 mmol/L (135-145); Total Protein 7.5 g/dL (6.5-8.0)
--- OUTSIDE RECORDS SUMMARY | 2024-12-11 22:20 | XMS_ITS | Encounter Summary ---
Author Organization [facility] Address [address] [facility] [address] [place] [address] Phone Care Team Providers Care Reference Investigator Name Role Phone Catie Isabel CONSULTANT TEACHER Primary Care Provider [phone] Encounter Details Date Type Department Care Team (Late st Contact Info) Description 08/13/2024 Procedure Pass [facility], Ct Scan - [address] [address] Social History Tobacco Use Types Packs/Day Years [...] 08/13/2024 6:44 AM Horacio Cohen RN * Ralph Suicide Severity Rating Scale (Screener/Recent Self-Report) Question [...] documented as of this encounter Care Teams Reference Investigator Relationship Specialty Start Date End Date Catie Isabel NP [address] [place] [address] PCP - General Nurse Practitioner 02/22/24 documented as of this encounter Additional Source Comments The information contained in this document represents components of the legal health record. It is not the complete legal health record.[facility]
--- OUTSIDE RECORDS SUMMARY | 2024-12-11 22:21 | XMS_ITS | Clinical Summary ---
Author Organization [address] Address [address] [place] [address] Phone Care Team Providers Care Veterinary Medicine Teacher Name Role Phone Nile Rodarte DO Primary Care Provider [phone] Allergies No known active allergies Medications PREMARIN 0.625 mg/gram Crea 03/08/2015 Active meclizine (ANTIVERT) 25 mg tablet 03/17/2015 Active permethrin (ELIMITE) 5 % cream APPLY AND KEEP ON OVERNIGHT, RINSE OFF IN THE MORNING. THEN REPEAT IN 1 WEEK 1 05/09/2015 Active NASONEX 50 mcg/actuation [place] USE 2 SPRAYS IN EACH NOSTRIL ONCE [...] this topic Insurance MEDICARE COMMERCIAL GENERIC MEDICARE Speed Dating by [employer] GENERIC MEDICARE COMMERCIAL GENERIC MEDICARE COMMERCIAL GENERIC Care Teams Veterinary Medicine Teacher Relationship Specialty Start Date End Date Nile Rodarte DO PCP - General Internal Medicine 04/12/15
--- OUTSIDE RECORDS SUMMARY | 2024-12-11 22:21 | XMS_ITS | Encounter Summary ---
Author Organization [facility] Address [address] [facility] [address] [place] [phone] Phone Care Team Providers Care Manager Online Name Role Phone Catie Isabel BUSINESS AREA MANAGER Primary Care Provider [phone] Encounter Details Date Type Department Care Team (Late st Contact Info) Description 05/14/2024 Procedure Pass [facility], [address] [facility] [place] [address] Social History Tobacco Use Types Packs/Day Years [...] as of this encounter Care Teams Manager Online Relationship Specialty Start Date End Date Catie Isabel NP [address] [place] [address] PCP - General Nurse Practitioner 02/22/24 documented as of this encounter Additional Source Comments The information contained in this document represents components of the legal health record. It is not the complete legal health record.[facility]
--- OUTSIDE RECORDS SUMMARY | 2024-12-11 22:21 | XMS_ITS | Encounter Summary ---
Author Organization [facility] Address [address] [address] Phone Care Team Providers Care Plaster And Stucco Worker Name Role Phone Catie Isabel ENVIRONMENTAL ENGINEERING PROFESSOR Primary Care Provider [phone] Encounter Details Date Type Department Care Team (Late st Contact Info) Description 06/04/2024 Procedure Pass [facility] Endoscopy Admitting Dept Virtual Department [address] [place] [address] Social History Tobacco Use Types Packs/Day Years [...] documented as of this encounter Care Teams Plaster And Stucco Worker Relationship Specialty Start Date End Date Catie Isabel NP [address] [place] [address] PCP - General Nurse Practitioner 02/22/24 documented as of this encounter Additional Source Comments The information contained in this document represents components of the legal health record. It is not the complete legal health record.[facility]
--- OUTSIDE RECORDS SUMMARY | 2024-12-11 22:21 | XMS_ITS | Patient Health Record ---
Author Organization [facility] Address [address] [place] [address] Care Team Providers Care Needlemaker Name Role Phone Leyla Gonsales Unavailable [phone] Reason For Referral No Information Plan Of Treatment No Information Insurance Providers Payer Name Payer Address Payer Phone Subscriber Number Group Number Insured Name Patient Relationship to Insured Coverage Start Date Coverage End Date MEDICARE [address] [place], [place] [id number] VINCENZO URBANO Self - patient is the insured
--- OUTSIDE RECORDS SUMMARY | 2024-12-11 22:21 | XMS_ITS | Encounter Summary ---
Author Organization [facility] Address [address] [place] [address] Phone Care Team Providers Care Strap Sewer Name Role Phone Catie Isabel NUCLEAR REACTOR TECHNICIAN Primary Care Provider [phone] Encounter Details Date Type Department Care Team (Late st Contact Info) Description 04/17/2024 Procedure Pass [facility] Endoscopy Admitting Dept Virtual Department [address] [place] [place] [phone] Social History Tobacco Use Types Packs/Day Years [...] documented as of this encounter Care Teams Strap Sewer Relationship Specialty Start Date End Date Catie Isabel NP [address] [place] [address] PCP - General Nurse Practitioner 02/22/24 documented as of this encounter Additional Source Comments The information contained in this document represents components of the legal health record. It is not the complete legal health record.[facility]
--- OUTSIDE RECORDS SUMMARY | 2024-12-11 22:21 | XMS_ITS | Clinical Summary ---
Author Organization [place] [address] [facility] Address [address] [place], [place] [address] [address] Phone Care Team Providers Care Slat Twister Name Role Phone Catie Isabel NP Primary Care Provider [phone] Allergies Active Allergy Reactions Criticality Noted Date Comments Diatrizoate Rebeka-Diatrizoat Sod Other 05/22 unresponsive Medications Ventolin HFA 90 mcg/actuation inhaler Inhale 2 puffs by mouth 1 (one) time each day. 6.7 g 3 06/06/19 25 Active fluticasone propionate (FLONASE) 50 mcg/actuation nasal spray Administer 2 sprays into each nostril 1 (one) time each day. Shake gently. Before first use, prime pump. After use, clean tip and replace cap. 16 g 5 06/06/19 25 2025 Active fluticasone furoate-vilantero L (Breo Ellipta) 200-25 mcg/dose inhalerIndication s:Chronic bronchitis, unspecified chronic bronchitis type (CMS/HCC V24, CMS/HCC V28) Inhale 1 puff by mouth 1 (one) time each day. 3 each 3 07/11/19 25 2025 Active ondansetron ODT (ZOFRAN-ODT) 4 mg disintegrating tabletIndications :SBO (small bowel obstruction) (CMS/HCC V24, CMS/HCC V28) Dissolve 1 tablet (4 mg total) on top of the tongue every 8 (eight) hours if needed for nausea or vomiting. 20 tablet 08/01/19 25 Active mesalamine (CANASA) 1,000 mg suppository Insert 1 suppository (1,000 mg total) into the rectum at bedtime. Use as directed 90 suppository 08/28/19 Active ipratropium-albut Jarad (DUONEB) 0.5-2.5 mg/3 mL nebulizer solution TAKE 3 ML BY NEBULIZER EVERY 6 HOURS NEEDED FOR WHEEZE 360 mL 11 09/10/19 Active gabapentin (NEURONTIN) 300 mg capsule Take 1 capsule (300 mg total) by mouth 3 (three) times a day if needed (back pain). 10/01/19 Active umeclidinium (Incruse Ellipta) 62.5 mcg/actuation inhalation Inhale 1 puff by mouth 1 (one) time each day. 1 each 2 11/11/19 25 2024 Active LORazepam (ATIVAN) 1 mg tablet Take 1 tablet (1 mg total) by mouth 2 (two) times a day if needed for anxiety. Max Daily Amount: 2 mg 56 tablet 11/20/19 25 Active HYDROcodone-aceta minophen (NORCO) 5-325 mg per tabletIndications :Primary osteoarthritis involving multiple joints Take 1 tablet by mouth 2 (two) times a day if needed for severe pain. Max Daily Amount: 2 tablets 56 tablet 11/20/19 25 Active castor oiL 100 % Take by mouth 1 (one) time each day if needed for constipation. Active pantoprazole (PROTONIX) 40 mg EC tablet Take 1 tablet (40 mg total) by mouth. 04/11/19 Active predniSONE (DELTASONE) 10 mg tablet PLEASE SEE ATTACHED FOR DETAILED DIRECTIONS 11/13/19 Active doxycycline hyclate (VIBRA-TABS) 100 mg tablet TAKE 1 TABLET BY MOUTH EVERY DAY FOR ALVEOLITIS FOR 10 DAYS 11/13/19 Active Gavilax 17 gram/dose oral powder take 17 grams by mouth once every day 09/24/19 Active polyethylene glycol (MIRALAX) 17 gram packet Take 17 g by mouth 1 (one) time each day. 510 g 2 08/28/19 25 2024 HYDROcodone-aceta minophen (NORCO) 5-325 mg per tabletIndications :Primary osteoarthritis involving multiple joints Take 1 tablet by mouth 2 (two) times a day if needed for severe pain. Max Daily Amount: 2 tablets 56 tablet 09/26/19 25 2024 Discontin ued(Reord er) LORazepam (ATIVAN) 1 mg tablet Take 1 tablet (1 mg total) by mouth 2 (two) times a day if needed for anxiety. Max Daily Amount: 2 mg 56 tablet 10/01/19 25 2024 Discontin ued(Reord er) Active Problems Problem Noted Date Diagnosed Date Carcinoma of vagina ([facility] V24, [facility] V28) 1 Secondary esophageal varices without bleeding ([facility] V24, [facility] V28) 12/09/2024 Portal hypertensive gastropathy ([facility] V24, S/[facility] V28) 12/09/2024 Bowel incontinence 09/18/2024 Pelvic pain 09/18/2024 Disorder of rotator cuff 09/18/2024 Hypovitaminosis D 09/18/2024 History of cancer of vagina 09/18/2024 Obesity 09/18/2024 Skin excoriation 09/18/2024 PMB (postmenopausal bleeding) 09/18/2024 Vaginal bleeding 09/18/2024 Vulvar itching 09/18/2024 IPMN (intraductal papillary mucinous neoplasm) 0 08/15/2024 Cirrhosis ([facility] V24, [facility] V28) 08/14/2024 Shingles 08/13/2024 Interstitial lung disease ([facility] V24, [facility] V28) 07/20/2024 Recurrent intestinal obstruction ([facility] V24, [place] V28) 07/20/2024 Anemia 04/29/2024 Hyponatremia 02/22/2024 Primary osteoarthritis involving multiple joints 10/09/2023 Primary osteoarthritis of right shoulder 024 Anxiety 10/01/2023 Allergic rhinitis 09/24/2018 Aortic atherosclerosis ([facility] V24) 09/24/2018 Diverticulosis 09/24/2018 Elevated LFTs 09/24/2018 GERD (gastroesophageal reflux disease) 9 Hemochromatosis, hereditary ([facility] V24) 2018 Hypertension 09/24/2018 IBS (irritable bowel [...] Encounters Date Type Department Care Team Description 12/09/2024 2:30 PM EDT Office Visit [facility] [address] [place] [address] Catie Isabel, CHANCE Primary osteoarthritis involving multiple joints (Primary Dx); Interstitial lung disease (CMS/HCC V24, CMS/HCC V28); Recurrent intestinal obstruction (CMS/HCC V24, CMS/HCC V28); Hepatic cirrhosis, unspecified hepatic cirrhosis type, unspecified whether ascites present (CMS/HCC V24, CMS/HCC V28); History of cancer of vagina 12/02/2024 12:30 PM EDT Anesthesia Event [facility] [address] [place] [phone] Phil Scanlon MD Hayes, Brett L, STEVIE 12/02/2024 11:20 AM EDT - 12/02/2024 11:59 PM EDT Hospital Encounter [facility] [address] [place] [phone] Charles Steinberg MD Hayes, Brett L, CRNA Saliga, Jesse L, MD Abnormal CT of the abdomen Discharge Disposition: Home or Self Care 12/01/2024 Telephone Internal Medicine - [facility] [address] [facility] [place] [place] [phone] Catie Isabel NP 11/30/2024 Telephone Internal Medicine - [facility] [address] [place] [address] Catie Isabel NP 11/23/2024 Telephone Infectious Disease - [place] [address] [phone] Jenn Whiting MD 11/23/2024 Telephone Gastroenterology - [place] 175 [facility] [address] [phone] Lori Vicente NP 11/23/2024 Telephone Gastroenterology - [place] 175 [facility] [address] [phone] Lori Vicente NP 11/23/2024 Telephone [facility] [address] [place] [address] Catie Isabel NP 11/13/2024 Telephone Gastroenterology - [place] 175 [facility] [address] [phone] Lori Vicente NP 11/11/2024 Telephone Pulmonology - [place] [address] [phone] Marisa Viveros MD 11/11/2024 Telephone [facility] [address] [place] [address] Xochitl Degroot [place] 11/06/2024 3:30 PM EDT Office Visit Pulmonology - [place] [address] [phone] Marisa Viveros MD Dyspnea, unspecified type (Primary Dx); Pulmonary fibrosis (CMS/HCC V24, CMS/HCC V28); Moderate persistent asthma, unspecified whether complicated 10/16/2024 Telephone Internal Medicine - [facility] [address] [place], [place] [address], [place] [phone] Catie Isabel NP 10/12/2024 Telephone [facility] [address] [place], [place] [address], [place] [phone] Catie Isabel NP 10/06/2024 Telephone [facility] [address] [place] [address] Catie Isabel NP 10/06/2024 Telephone [facility] [phone] Catie Isabel NP 10/02/2024 Telephone [facility] [phone] Catie Isabel NP 10/02/2024 [place] [facility] [phone] Catie Isabel NP 09/30/2024 2:30 PM EDT Office Visit Internal Medicine - [address] [phone] Catie Isabel, CHANCE Other cirrhosis of liver (CMS/HCC V24, CMS/HCC V28) (Primary Dx); Interstitial lung disease (CMS/HCC V24, CMS/HCC V28); IPMN (intraductal papillary mucinous neoplasm); Anemia, unspecified type 09/25/2024 3:45 PM EDT Office Visit Pulmonology - [place] [address] [phone] Marisa Viveros MD Dyspnea, unspecified type (Primary Dx); ILD (interstitial lung disease) (CMS/HCC V24, CMS/HCC V28) 09/25/2024 3:30 PM EDT Procedure visit Pulmonology - [place] 175 [facility] [address] [place] [phone] Dyspnea, unspecified type 09/24/2024 1:46 PM EDT - 09/24/2024 11:59 PM EDT Hospital Encounter [facility] CT Scan [address] [place] [phone] ILD (interstitial lung disease) (CMS/HCC V24, CMS/HCC V28) Discharge Disposition: Home or Self Care 09/21/2024 Telephone Gastroenterology - [place] 175 [facility] 175 [facility] [address] [place] [phone] Lori Vicente NP 09/15/2024 Telephone Pulmonology - [place] 175 [facility] [address] [place] [address] Marisa Viveros MD from Last 3 Months Surgical History Surgery Date Site/Laterality Comments OTHER SURGICAL HISTORY 1985 PROCEDURE: HI COLECTOMY PARTIAL W/ANASTOMOSIS; COMMENT: colon cancer COLONOSCOPY 12/2014 PROCEDURE: HISTORICAL COLONOSCOPY; COMMENT: Tubular adenoma & hyperplastic polyps, Repeat 3 yrs CHOLECYSTECTOMY 1993 PROCEDURE: HISTORICAL CHOLECYSTECTOMY APPENDECTOMY PROCEDURE: HISTORICAL APPENDECTOMY UPPER GASTROINTESTINAL ENDOSCOPY 01/2018 PROCEDURE: HI UPPER GI ENDOSCOPY PERFORMED COLONOSCOPY 1997 PROCEDURE: [...] Stable Diverticulosis 09/24/2018 DX:Diverticulosi s Aortic atherosclerosis (CMS/HCC V24) 09/24/2018 DX:Aortic atherosclerosis ([facility]) Osteoarthritis 09/24/2018 DX:Osteoarthriti s; COMMENT: Thoracic, & Lumbosacral Spine, Hips Osteopenia 09/24/2018 DX:Osteopenia IBS (irritable bowel syndrome) 09/24/2018 D X:IBS (irritable bowel syndrome) Elevated LFTs 09/24/2018 DX:Elevated LFTs Pancreatitis 09/24/2018 DX:Pancreatitis; COMMENT: history H/O small bowel obstruction 09/24/2018 DX:H /O small bowel obstruction Hemochromatosis, hereditary (CMS/HCC V24) 09/24/2018 DX:Hemochromatosis, heredita ry (HCC) JUAN (nonalcoholic steatohepatitis) 09/24/2018 DX:JUAN (nonalcoholic steatohepatitis) Pancreatic insufficiency 09/24/2018 DX:Panc reatic insufficiency History of cancer of vagina 09/18/2018 DX:H istory of cancer of vagina; COMMENT: s/p radiation History of colon cancer 09/18/2018 DX:Histo ry of colon cancer; COMMENT: 1986 Allergic rhinitis 09/24/2018 DX:Allergic rh initis Interstitial lung disease (C MS/HCC V24, CMS/HCC V28) Family History Medical History Relation Name Comments [...] Pulse 97 12/09/2024 2:20 PM EDT Temperature 36.2 C (97.2 F) 12/02/2024 12:14 PM EDT Respiratory Rate 18 12/02/2024 12:59 PM EDT Oxygen Saturation 97% 12/02/2024 12:59 PM EDT Inhaled Oxygen Concentration - - Weight 65.3 kg (144 lb) 12/09/2024 2:20 PM EDT Height 157.5 cm (5' 2 ) 12/09/2024 2:20 PM EDT Body Mass Index 26.34 12/09/2024 2:20 PM EDT Plan of Treatment Upcoming Encounters Date Type Department Care Team ([facility] st Contact Info) Description 12/16/2024 2:20 PM EDT Office Visit Gastroenterology - [place] [address] [phone] Lori Vicente NP [address] [address] 01/25/2025 12:45 PM EST Ancillary Procedure Pulmonology - [place] [address] [phone] 01/28/2025 2:45 PM EST Office Visit Pulmonology - [place] [address] [phone] Marisa Viveros MD [address] [address] Health Maintenance Due Date Last Done Comments [...] Screening 03/11/2024 01/16/2024 Influenza Vaccine (#1) 2024 Medicare Annual Wellness Visit 01/15/2025 01/16/2024 Hypertension/CHF/CAD Annual BMP Blood Test 10/12/2025 10/12/2024, 08/14/2024, 05/13/2024, Additional history exists Falls Risk Assessment 12/02/2025 12/02/2024, 024 Colorectal Cancer Screening: Colonoscopy 10/27/2028 10/28/2023 Hepatitis [...] Procedure Name Priority Date/Time Associated Diagnosis Comments EGD Routine 12/02/2024 12:[address] of the abdomen OVA AND PARASITE EXAMINATION Routine 10/12/2024 2:42 [...] EDT Anemia, unspecified type ALANINE AMINOTRANSFERASE Routine 025 2:12 PM EDT Other cirrhosis of liver [...] (interstitial lung disease) (CMS/HCC V24, CMS/HCC V28) HEPATITIS C ANTIBODY Routine 08/05/2024 2:25 PM EDT History of cirrhosis of liver COLONOSCOPY Routine 10/28/2023 from Last 3 Months or Most Recently Relevant to Health Maintenance Results * EGD Anesthesia - MAC; [facility] ENDOSCOPY (12/02/2024 12:38 PM EDT) Anatomical Region Laterality Modality Endoscopy 12/02/2024 12:2 8 PM EDT Impressions 12/02/2024 12:40 PM EDT - Grade I esophageal varices. - Portal hypertensive gastropathy. - Normal examined duodenum. - No specimens collected. Recommendation: - Continue present medications. - Repeat upper endoscopy in 1 year for surveillance. Narrative 12/02/2024 12:40 PM EDT [facility] GI Patient Name: Erin Mooney Procedure Date: 12/02/2024 12:28 PM Date of : 1950 Age: 74 Room: ROOM 16 Gender: Female Note Status: Finalized Attending MD: Charles Steinberg MD, Procedure Date No Time: 12/02/2024 Procedure: Upper GI endoscopy Indications: Cirrhosis rule out esophageal varices, Abnormal CT of the GI tract, Follow-up of small bowel obstruction Providers: Charles Steinberg MD Referring MD: Eliel Mejia MD Medicines: Propofol per Anesthesia Complications: No immediate complications. Estimated Blood Loss: Estimated blood loss: none. Procedure: Pre-Anesthesia Assessment: - ASA Grade Assessment: III - A patient with severe systemic disease. After obtaining informed consent, the endoscope was passed under direct vision. Throughout the procedure, the patient's blood pressure, pulse, and oxygen saturations were monitored continuously.The Olympus Gastroscope was introduced through the mouth, and advanced to the second part of duodenum. The upper GI endoscopy was accomplished without difficulty. The patient tolerated the procedure well. Findings: Grade I varices were found in the lower third of the esophagus. They were 3 mm in largest diameter. Moderate portal hypertensive gastropathy was found in the cardia and in the gastric fundus. The exam of the stomach was otherwise normal. The examined duodenum was normal. Procedure Code(s): --- Professional --- 89814, Esophagogastroduodenoscopy, flexible, transoral; diagnostic, including collection of specimen(s) by brushing or washing, when performed (separate procedure) Diagnosis Code(s): --- Professional --- K74.60, Unspecified cirrhosis of liver I85.10, Secondary esophageal varices without bleeding K31.89, Other diseases of stomach and duodenum K76.6, Portal hypertension K56.609, Unspecified intestinal obstruction, unspecified as to partial versus complete obstruction R93.3, Abnormal findings on diagnostic imaging of other parts of digestive tract CPT copyright 2020 [employer]. All rights reserved. The codes documented in this report are preliminary and upon human resource analyst review may be revised to meet current compliance requirements. Charles Steinberg MD 12/02/2024 12:40:34 PM This report has been signed electronically.Charles Steinberg MD Number of Addenda: 0 Note Initiated On: 12/02/2024 12:28 PM Scope In: Scope Out: Endoscopy Department at [facility] - [address] [place] [phone] Procedure Note Charles Steinberg MD - 12/02/2024 [facility] GI Patient Name: Erin Mooney Procedure Date: 12/02/2024 12:28 PM Date of : 1950 Age: 74 Room: ROOM 16 Gender: Female Note Status: Finalized Attending MD: Charles Steinberg MD, Procedure Date No Time: 12/02/2024 Procedure: Upper GI endoscopy Indications: Cirrhosis rule out esophageal varices, Abnormal CTof the GI tract, Follow-up of small bowelobstruction Providers: Charles Steinberg MD Referring MD: Eliel Mejia MD Medicines: Propofol per Anesthesia Complications: No immediate complications. Estimated Blood Loss: Estimated blood loss: none. Procedure: Pre-Anesthesia Assessment: - ASA Grade Assessment: III - A patient with severe systemic disease. After obtaining informed consent, the endoscope was passed under direct vision. Throughout theprocedure, the patient's blood pressure, pulse, and oxygen saturations were monitored continuously.The Olympus Gastroscope was introduced through the mouth, and advanced to the second part of duodenum. The upperGI endoscopy was accomplished without difficulty. The patient tolerated the procedure well. Findings: Grade I varices were found in the lower third ofthe esophagus. They were 3 mm in largest diameter. Moderate portal hypertensive gastropathy was foundin the cardia and in the gastric fundus. The exam of the stomach was otherwise normal. The examined duodenum was normal. Procedure Code(s): --- Professional --- 20413, Esophagogastroduodenoscopy, flexible, transoral; diagnostic, including collection of specimen(s) by brushing or washing, when performed (separate procedure) Diagnosis Code(s): --- Professional --- K74.60, Unspecified cirrhosis of liver I85.10, Secondary esophageal varices withoutbleeding K31.89, Other diseases of stomach and duodenum K76.6, Portal hypertension K56.609, Unspecified intestinal obstruction, unspecified as to partial versus completeobstruction R93.3, Abnormal findings on diagnostic imaging of other parts of digestive tract CPT copyright 2020 [employer]. All rights reserved. The codes documented in this report are preliminary and upon human resource analyst reviewmay be revised to meet current compliance requirements. Charles Steinberg MD 12/02/2024 12:40:34 PM This report has been signed electronically.Charles Steinberg MD Number of Addenda: 0 Note Initiated On: 12/02/2024 12:28 PM Scope In: Scope Out: Endoscopy Department at [facility] - [address] [place] [phone] IMPRESSION: - Grade I esophageal varices. - Portal hypertensive gastropathy. - Normal examined duodenum. - No specimens collected. Recommendation: - Continue present medications. - Repeat upper endoscopy in 1 year forsurveillance. Eliel Mejia MD GI~PROCEDURE ORDERABLES Final Re sult * Ova and parasite examination (10/12/2024 2:42 PM EDT) Only the most recent of3 resultswithin the time period is included. Ova and Parasite No Ova or Parasite seen. 10/18/2024 2:51 PM EDT [facility] Stool Stool / Unknown Non-blood Collection / Unknown 10/12/2024 2:42 PM EDT 10/12/2024 2:42 PM EDT Narrative [facility] - 10/18/2024 2:51 PM EDT Special test request required for Coccidia and Microsporidia. Lori Vicente NP LAB MICROBIOLOGY - GENERAL TIFFANIE AGUILAR Final Result [facility] [address] [place] [address], * (ABNORMAL) CBC auto differential (10/12/2024 11:56 AM EDT) Only the most recent of2 resultswithin the time period is included. [facility] Signature WBC 6.4 4.8 - 10.8 K/mcL LAB HEMETOLOGY METHOD 10/12/2024 4:15 PM [facility] RBC 3.60(L) 3.80 - 4.80 M/mcL LAB HEMETOLOGY METHOD 10/12/2024 4:15 PM [facility] Hemoglobin 11.6 11.5 - 16.0 g/dL LAB HEMETOLOGY METHOD 10/12/2024 4:15 PM [facility] Hematocrit 36.3 35.0 - 47.0 % LAB HEMETOLOGY METHOD 10/12/2024 4:15 PM [facility] MCV 101.7(H) 79.0 - 98.0 FL LAB HEMETOLOGY METHOD 10/12/2024 4:15 PM [facility] MCH 32.5(H) 27.0 - 32.0 pcg LAB HEMETOLOGY METHOD 10/12/2024 4:15 PM [facility] MCHC 32.0 32.0 - 37.0 g/dL LAB HEMETOLOGY METHOD 10/12/2024 4:15 PM [facility] RDW 16.6(H) 11.0 - 15.0 % LAB HEMETOLOGY METHOD 10/12/2024 4:15 PM [facility] Platelets 199 130 - 400 K/mcL LAB HEMETOLOGY METHOD 10/12/2024 4:15 PM [facility] MPV 9.2 7.0 - 11.0 FL LAB HEMETOLOGY METHOD 10/12/2024 4:15 PM [facility] NRBC 0.0 <1.0 % LAB HEMETOLOGY METHOD 10/12/2024 4:15 PM [facility] NRBC Absolute 0.00 <0.10 K/mcL LAB HEMETOLOGY METHOD 10/12/2024 4:15 PM EDT [facility] Neutrophils Relative 71.6 % LAB HEMETOLOGY METHOD 10/12/2024 4:15 PM [facility] Lymphocytes Relative 16.1 % LAB [facility]EMETOLOGY [facility] Monocytes Relative 9.9 % LAB HEMETOLOGY METHOD 10/12/2024 4:15 PM [facility] Eosinophils Relative 1.7 % LAB HEMETOLOGY METHOD 10/12/2024 4:15 PM [facility] Basophils Relative 0.2 % LAB HEMETOLOGY METHOD 10/12/2024 4:15 PM [facility] Immature Granulocytes Relative 0.5 % LAB HEMETOLOGY METHOD 10/12/2024 4:15 PM [facility] Neutrophils Absolute 4.55 1.50 - 7.00 K/mcL LAB HEMETOLOGY METHOD 10/12/2024 4:15 PM [facility] Lymphocytes Absolute 1.02 1.00 - 5.00 K/mcL LAB HEMETOLOGY METHOD 10/12/2024 4:15 PM [facility] Monocytes Absolute 0.63 0.20 - 1.00 K/mcL LAB HEMETOLOGY METHOD 10/12/2024 4:15 PM [facility] Eosinophils Absolute 0.11 0.00 - 0.50 K/mcL LAB HEMETOLOGY METHOD 10/12/2024 4:15 PM [facility] Basophils Absolute 0.01 0.00 - 0.20 K/mcL LAB HEMETOLOGY METHOD 10/12/2024 4:15 PM [facility] Immature Granulocytes Absolute 0.03 0.00 - 0.03 K/mcL LAB HEMETOLOGY METHOD 10/12/2024 4:15 PM EDT [facility] Blood Venous blood specimen / Unknown Venipuncture / Unknown 10/12/2024 11:56 AM EDT 10/12/2024 11:56 AM EDT Catie Gallowayti [employer] LAB BLOOD ORDERABLES Final Resu lt [facility] [address] [place] [address], [place] [phone] * Lipase (10/12/2024 11:56 AM EDT) Lipase 33 13 - 75 unit/L LAB CHEMISTRY METHOD 10/12/2024 4:26 PM EDT [facility] Blood Venous blood specimen / Unknown Venipuncture / Unknown 10/12/2024 11:56 AM EDT 10/12/2024 11:56 AM EDT Catie Gallowayti LUSTER REPAIRER LAB BLOOD ORDERABLES Final Resu lt Performing Organization Address City/[facility]/ZIP Co de Phone Number [facility] [address] [place] [address], [place] [phone] * Amylase (10/12/2024 11:56 AM EDT) Amylase 77 25 - 115 unit/L LAB CHEMISTRY METHOD 10/12/2024 4:26 PM EDT [facility] Blood Venous blood specimen / Unknown Venipuncture / Unknown 10/12/2024 11:56 AM EDT 10/12/2024 11:56 AM EDT Catie Gallowayti [employer] REPA[employer] LAB BLOOD ORDERABLES Final Resu lt [facility] [address] [place] [address], [place] [phone] * (ABNORMAL) Comprehensive metabolic panel (10/12/2024 11:56 AM EDT) Sodium 138 133 - 145 mmol/L LAB CHEMISTRY METHOD 10/12/2024 4:26 PM [facility] Potassium 4.2 3.5 - 5.5 mmol/L LAB CHEMISTRY METHOD 10/12/2024 4:26 PM [facility] Chloride 107 96 - 110 mmol/L LAB CHEMISTRY METHOD 10/12/2024 4:26 PM [facility] CO2 25 21 - 32 mmol/L LAB CHEMISTRY METHOD 10/12/2024 4:26 PM [facility] Anion Gap 6 3 - 11 LAB CHEMISTRY METHOD 10/12/2024 4:26 PM [facility] Glucose 94 70 - 100 mg/dL LAB CHEMISTRY METHOD 10/12/2024 4:26 PM [facility] BUN 22 5 - 25 mg/dL LAB CHEMISTRY METHOD 10/12/2024 4:26 PM [facility] Creatinine 0.79 0.50 - 1.10 mg/dL LAB CHEMISTRY METHOD 10/12/2024 4:26 PM [facility] eGFR 78 >=60 mL/min/1. 73m2 LAB CHEMISTRY METHOD 10/12/2024 4:26 PM [facility] Comment:Calculation based on the Chronic Kidney Disease Epidemiology Collaboration (CKD-EPI) equation refit without adjustment for race. BUN/Creatinine Ratio 27.8 LAB CHEMISTRY METHOD 10/12/2024 4:26 PM [facility] Calcium 9.2 8.5 - 10.5 mg/dL LAB CHEMISTRY METHOD 10/12/2024 4:26 PM [facility] AST (SGOT) 51(H) 10 - 42 unit/L LAB CHEMISTRY METHOD 10/12/2024 4:26 PM [facility] ALT (SGPT) 49 10 - 60 unit/L LAB CHEMISTRY METHOD 10/12/2024 4:26 PM EDT [facility] Alkaline Phosphatase 164(H) 42 - 121 unit/L LAB CHEMISTRY METHOD 10/12/2024 4:26 PM EDT [facility] Total Protein 7.3 6.0 - 8.0 g/dL LAB CHEMISTRY METHOD 10/12/2024 4:26 PM EDT [facility] Albumin 3.1(L) 3.2 - 5.0 g/dL LAB CHEMISTRY METHOD 10/12/2024 4:26 PM EDT [facility] Total Bilirubin 0.4 0.0 - 1.4 mg/dL LAB CHEMISTRY METHOD 10/12/2024 4:26 PM EDT [facility] Blood Venous blood specimen / Unknown Venipuncture / Unknown 10/12/2024 11:56 AM EDT 10/12/2024 11:56 AM EDT us Catie Isabel LUSTER REPAIRER LAB BLOOD ORDERABLES Final Resu lt [facility] [address] [place] [address], [place] [phone] * 6 minute walk test (10/05/2024 2:43 [...] Iron and TIBC (09/30/2024 2:12 PM EDT) Iron 86 40 - 150 mcg/dL LAB CHEMISTRY METHOD 09/30/2024 7:09 PM EDT [facility] TIBC 344 250 - 450 mcg/dL LAB CHEMISTRY METHOD 09/30/2024 7:09 PM EDT [facility] Iron Saturation 25 15 - 50 % LAB CHEMISTRY METHOD 09/30/2024 7:09 PM EDT [facility] Blood Venous blood specimen / Unknown Venipuncture / Unknown 09/30/2024 2:12 PM EDT 09/30/2024 2:12 PM EDT Catie Isabel NP LAB BLOOD ORDERABLES Final Resu lt Performing Organization Address City/[facility]/ZIP Co de Phone Number [facility] [address] [place] [address], [place] [phone] * Alanine aminotransferase (09/30/2024 2:12 PM EDT) ALT (SGPT) 38 10 - 60 unit/L LAB CHEMISTRY METHOD 09/30/2024 7:07 PM EDT [facility] Blood Venous blood specimen / Unknown Venipuncture / Unknown 09/30/2024 2:12 PM EDT 09/30/2024 2:12 PM EDT us Catie Isabel NP LAB BLOOD ORDERABLES Final Resu lt [facility] [address] [place] [address], [place] [phone] * (ABNORMAL) Aspartate aminotransferase (09/30/2024 2:12 PM EDT) AST (SGOT) 46(H) 10 - 42 unit/L LAB CHEMISTRY METHOD 09/30/2024 7:07 PM EDT [facility] Blood Venous blood specimen / Unknown Venipuncture / Unknown 09/30/2024 2:12 PM EDT 09/30/2024 2:12 PM EDT us Catie Chalo LUSTER REPAIRER LAB BLOOD ORDERABLES Final Resu lt [facility] [address] [place] [address], [place] [phone] * Pulmonary function testing: Carbon Monoxide Diffusing Capacity, Nitrogen Wash Out, Spirometry with Bronchodilator, Vital Capacity Test (09/25/2024 4:28 PM EDT) Impressions Samia Valljeo MD - 09/25/2024 4:28 PM EDT Pulmonary [...] not indicated. Clinical correlation however is advised. Marisa Viveros MD PFT ORDERABLES Final Result [...] this report will be provided to the [facility] FIND Program. -------- FINAL REPORT -------- Dictated By: YURIY GAN Dictated Date: 09/25/2024 16:40 ET Assigned Physician: YURIY GAN Reviewed and Electronically Signed By: YURIY GAN Signed Date: 09/25/2024 16:55 ET Workstation ID: [id number] Transcribed By: Self Edit Transcribed Date: 09/25/2024 [...] this report will be provided to the [facility] FINDProgram. -------- FINAL REPORT -------- Dictated By: YURIY GAN Dictated Date: 09/25/2024 16:40 ET Assigned Physician: YURIY GAN Reviewed and Electronically Signed By: YURIY GAN Signed Date: 09/25/2024 16:55 ET Workstation ID: [id number] Transcribed By: Self Edit Transcribed Date: 09/25/2024 16:40 ET Marisa Viveros MD IMG CT PROCEDURES Final Result * Hepatitis C antibody (08/05/2024 2:25 PM EDT) Pathologist [facility] Hepatitis C Antibody Negative Negative LAB CHEMISTRY METHOD 08/05/2024 10:04 PM EDT [facility] Blood Venous blood specimen / Unknown Venipuncture / Unknown 08/05/2024 2:25 PM EDT 08/05/2024 2:25 PM EDT Lori Vicente LUSTER REPAIRER LAB BLOOD ORDERABLES Final Resu lt [facility] [address] [place] [address], [place] [phone] * Colonoscopy (10/28/2023) Pathologist [facility] Colonoscopy no interpretation , abstracted Anatomical Region Laterality Modality Other Historical Provider HEALTH MAINTENANCE Final Result from Last 3 Months or Most Recently Relevant to Health Maintenance Insurance MEDICAID - [place] MEDICARE Care Teams Slat Twister Relationship Specialty Start Date End Date Catie Isabel NP [address] [place] [address] PCP - General 09/30/23
--- OUTSIDE RECORDS SUMMARY | 2024-12-11 22:21 | XMS_ITS | Encounter Summary ---
Author Organization [facility] Address [address] [place] [address] Phone Care Team Providers Care Office Machines Teacher Name Role Phone Catie Isabel RECEPTION INTERVIEWER Primary Care Provider [phone] Encounter Details Date Type Department Care Team (Late st Contact Info) Description 02/24/2024 Procedure Pass [facility] Endoscopy Admitting Dept Virtual Department [address] [place] [address] Social History Tobacco Use Types Packs/Day Years [...] documented as of this encounter Care Teams Office Machines Teacher Relationship Specialty Start Date End Date Catie Isabel NP [address] [place] [address] PCP - General Nurse Practitioner 02/22/24 documented as of this encounter Additional Source Comments The information contained in this document represents components of the legal health record. It is not the complete legal health record.[facility]
--- OUTSIDE RECORDS SUMMARY | 2024-12-11 22:21 | XMS_ITS | Encounter Summary ---
Author Organization [facility] Address [address] [place] [address] Care Team Providers Care Carrier Associate Name Role Phone Catie Isabel NP Primary Care Provider [phone] Reason for Visit * Reason Onset Date Comments Referral 11/23/2024 Encounter Details Date Type Department Care Team ([facility] st Contact Info) Description 11/23/2024 Telephone Infectious Disease - [place] [address] [facility] [address] [place] [phone] Jenn Whiting MD [address] [facility] [address] [place] [address] Social History Tobacco Use Types Packs/Day Years [...] Progress Notes * Xochitl Degroot MA - 11/27/2024 3:50 PM EDT Lvm to return call * Carrie Burdick MA - 11/26/2024 9:21 AM EDT Lmom for callback Adult Med A [id number] * Catie Isabel NP - 11/25/2024 4:50 PM EDT Can we please verify what the patient was asking for referral to infectious disease for in the first place? If it is a rash she should be seen by dermatology and not ID * Anaya Dubon RN - 11/25/2024 2:45 PM EDT Please see above * Anaya Dubon RN - 11/25/2024 11:[address] Whiting, referral received please review for scheduling. I sent a secure chat to referring providerto confirm diagnosis of rash as reason for consult. * Anaya Dubon RN - 11/24/2024 9:51 AM EDT I left a message for patient. Referral was placed yesterday and not yet in w/q. MD will have to review after it is received. * Rosie Alston - 11/23/2024 2:11 PM EDT Patient is calling because she would like to schedule consult with provider. She stated afternoons are the best and as soon as possible because she isn't feeling well. She does a referral in chart. Please advise documented in this encounter Plan of Treatment Upcoming Encounters Date Type Department Care Team (Late st Contact Info) Description 12/16/2024 2:20 PM EDT Office Visit Gastroenterology - [place] [address] [facility] [address] [phone] Lori Vicente NP [address] [address] 01/25/2025 12:45 PM EST Ancillary Procedure Pulmonology - [address] [phone] 01/28/2025 2:45 PM EST Office Visit Pulmonology - [place] [address] [phone] Marisa Viveros MD [address] [address] documented as of this encounter Visit Diagnoses Diagnosis Rash- Primary Rash and other nonspecific skin eruption documented in this encounter Additional Health Concerns Assessment Noted Time PHQ-9 Depression Total Score: 0 01/16/20 2:37 PM EST A fall risk assessment has been complete d for the patient 01/16/2024 2:32 PM EST documented as of this encounter Care Teams Carrier Associate Relationship Specialty Start Date End Date Catie Isabel NP [address] [place] [address] PCP - General 09/30/23 documented as of this encounter
--- OUTSIDE RECORDS SUMMARY | 2024-12-11 22:21 | XMS_ITS | Encounter Summary ---
Author Organization [facility] Address [address] [place] [address] Phone Care Team Providers Care Supervisor Paper Products Name Role Phone Catie Isabel BIN CLEANER Primary Care Provider [phone]- [phone] Encounter Details Date Type Department Care Team (Late st Contact Info) Description 04/28/2024 Procedure Pass [facility], Ct Scan - [address] [address] Social History Tobacco Use Types Packs/Day Years [...] 04/28/2024 1:10 PM Laila Booker RN * [place] Suicide Severity Rating Scale (Screener/Recent Self-Report) Question [...] documented as of this encounter Care Teams Supervisor Paper Products Relationship Specialty Start Date End Date Catie Isabel NP [address] [facility] [place] [address] PCP - General Nurse Practitioner 02/22/24 documented as of this encounter Additional Source Comments The information contained in this document represents components of the legal health record. It is not the complete legal health record.[facility]
--- OUTSIDE RECORDS SUMMARY | 2024-12-11 22:21 | XMS_ITS | Encounter Summary ---
Author Organization [facility] Address [address] [facility] [address] [place] [address] Phone Care Team Providers Care Filtration Supervisor Name Role Phone Catie Isabel MEDICAL TECHNOLOGIST CHIEF Primary Care Provider [phone]- [phone] Encounter Details Date Type Department Care Team (Late st Contact Info) Description 07/11/2024 Procedure Pass [facility], Ct Scan - [address] [address] Social History Tobacco Use Types Packs/Day Years [...] 07/11/2024 9:31 PM Meg Ortiz RN * [place] Suicide Severity Rating Scale (Screener/Recent Self-Report) Question [...] documented as of this encounter Care Teams Filtration Supervisor Relationship Specialty Start Date End Date Catie Isabel NP [address] [place] [address] PCP - General Nurse Practitioner 02/22/24 documented as of this encounter Additional Source Comments The information contained in this document represents components of the legal health record. It is not the complete legal health record.[facility]
--- OUTSIDE RECORDS SUMMARY | 2024-12-11 22:21 | XMS_ITS | Encounter Summary ---
Author Organization [facility] Address [address] [place] [phone] Care Team Providers Care Roll Repairer Name Role Phone Nile Rodarte DO Primary Care Provider [phone] Encounter Details Date Type Department Care Team (Late st Contact Info) Description 05/16/2015 Scanned Document Orthopaedics & Rehabilitation at [address] [address] Stuart Tracy MD [address] [place] [address] Social History Tobacco Use Types Packs/Day Years [...] Tracy MD IMG SCAN REPORTS Final Result [facility] [place], [place], [facility] documented in this encounter Visit Diagnoses Not on filedocumented in this encounter Care Teams Roll Repairer Relationship Specialty Start Date End Date Nile Rodarte DO PCP - General Internal Medicine 04/12/15 documented as of this encounter
--- OUTSIDE RECORDS SUMMARY | 2024-12-11 22:21 | XMS_ITS | Encounter Summary ---
Author Organization [facility] Address [address] [place] [address] Care Team Providers Care Radioisotope Production Operator Name Role Phone Catie Isabel AUTOMATION TEST ENGINEER Primary Care Provider [phone] Reason for Visit * Reason Onset Date Comments Abdominal Pain 12/01/2024 Encounter Details Date Type Department Care Team (Late st Contact Info) Description 12/01/2024 Telephone Internal Medicine - [place] [address] [place] [address] Catie Isabel NP [address] [place] [address] Social History Tobacco Use Types Packs/Day Years [...] as of this encounter Progress Notes * Cecile Beasley RN - 12/03/2024 8:52 AM EDT 3 rd attempt to contact patient reached VM please re message * Cecile Beasley RN - 12/02/2024 10:16 AM EDT 2 nd attempt to call patient reached please re message * Cecile Beasley RN - 12/01/2024 3:12 PM EDT Attempted to contact patient reached please re message * Jacquelin Vela - 12/01/2024 2:43 PM EDT Pt returning missed call. previous encounter closed. Patient call requires triage: Symptoms patient is presenting: pt says she's bleeding both vaginally and rectally . Says she's having a lot of pain in her abdomen. How long has patient had these symptoms?: For ALL patients calling to schedule any appointment (routine, sick visit, follow up, consult, etc.) in the outpatient setting please ask the following questions: Do you have fever of higher than 101, sore throat with difficulty swallowing or severe shortness ofbreath? no If YES to any of these above symptoms, send a message to triage and do not book. Red dot. If no, an audio or video visit should be booked. Have you had close contact with someone with Coronavirus in the last 14 days? no Have you traveled abroad? no Have you traveled recently to another state outside of [place], [place], [place], [place], [place], [place], [place]? no o If yes, did you quarantine for 14 days or have a negative covid test? no If yes to any of the above, patient is not to be scheduled in office until after 14 day quarantine or negative covid test. If pain or injury related was it due to an accident at work or from a motor vehicle accident? If yes, date of accident/Injury: No If yes, gather 3rd democrat insurance information Third Libertarian Information: not applicable PCP: Catie Isabel NP Payor: MEDICARE / Plan: MEDICARE PART A & B / Product Type: Medicare / documented in this encounter Plan of Treatment Upcoming Encounters Date Type Department Care Team (Late st Contact Info) Description 12/16/2024 2:20 PM EDT Office Visit Gastroenterology - [place] 175 [facility] 175 [facility] 200 [place] [phone] Lori Vicente NP 175 [facility] [address] [place] [address] 01/25/2025 12:45 PM EST Ancillary Procedure Pulmonology - [place] 175 [facility] 200 [place] [phone] 01/28/2025 2:45 PM EST Office Visit Pulmonology - [place] [address] [phone] Marisa Viveros MD 175 [place] [address] [place] [address] documented as of this encounter Visit Diagnoses Not on filedocumented in this encounter Additional Health Concerns Assessment Noted Time PHQ-9 Depression Total Score: 0 01/16/20 2:37 PM EST A fall risk assessment has been complete d for the patient 01/16/2024 2:32 PM EST documented as of this encounter Care Teams Radioisotope Production Operator Relationship Specialty Start Date End Date Catie Isabel NP [address] [place] [address] PCP - General 09/30/23 documented as of this encounter
--- OUTSIDE RECORDS SUMMARY | 2024-12-11 22:21 | XMS_ITS | Encounter Summary ---
Author Organization [facility] Address [address] [facility] [address] [place] [address] Phone Care Team Providers Care Wash Crew Person Name Role Phone Catie Isabel POACHER WRINGER OPERATOR Primary Care Provider [phone]- [phone] Encounter Details Date Type Department Care Team (Late st Contact Info) Description 05/20/2024 Procedure Pass [facility] [address] [place] [address] Social History Tobacco Use Types Packs/Day [...] documented as of this encounter Care Teams Wash Crew Person Relationship Specialty Start Date End Date Catie Isabel NP [address] [place] [address] PCP - General Nurse Practitioner 02/22/24 documented as of this encounter Additional Source Comments The information contained in this document represents components of the legal health record. It is not the complete legal health record.[facility]
--- OUTSIDE RECORDS SUMMARY | 2024-12-11 22:21 | XMS_ITS | Encounter Summary ---
Author Organization [facility] Address [address] [place], [place] [phone] Phone Care Team Providers Care Firepot Operator And Tender Name Role Phone Catie Isabel MANAGER DISH Primary Care Provider [phone] Encounter Details Date Type Department Care Team (Late st Contact Info) Description 02/23/2024 Procedure Pass [facility], Ct Scan - [address] [address] Social History Tobacco Use Types Packs/Day Years [...] documented as of this encounter Care Teams Firepot Operator And Tender Relationship Specialty Start Date End Date Catie Isabel NP [address] [place] [address] PCP - General Nurse Practitioner 02/22/24 documented as of this encounter Additional Source Comments The information contained in this document represents components of the legal health record. It is not the complete legal health record.[facility]
--- OUTSIDE RECORDS SUMMARY | 2024-12-11 22:21 | XMS_ITS | Encounter Summary ---
Author Organization [facility] Address [address] [address] Phone Care Team Providers Care Angledozer Operator Name Role Phone Catie Isabel SINGEING TORCH OPERATOR Primary Care Provider [phone]- [phone] Encounter Details Date Type Department Care Team (Late st Contact Info) Description 05/13/2024 Procedure Pass [facility]ovascular [facility] Interventional Radiology [address] [place] [address] Social History Tobacco Use Types Packs/Day Years [...] 05/13/2024 10:00 PM Jazmin Ferrer RN * [place] Suicide Severity Rating Scale (Screener/Recent Self-Report) Question [...] documented as of this encounter Care Teams Angledozer Operator Relationship Specialty Start Date End Date Catie Isabel NP [address] [place] [address] PCP - General Nurse Practitioner 02/22/24 documented as of this encounter Additional Source Comments The information contained in this document represents components of the legal health record. It is not the complete legal health record.[facility]
--- OUTSIDE RECORDS SUMMARY | 2024-12-11 22:21 | XMS_ITS | Encounter Summary ---
Author Organization [facility] Address [address] [facility] [address] [place] [address] Phone Care Team Providers Care Outcomes Manager Name Role Phone Catie Isabel TECHNICAL ADMINISTRATIVE ASSISTANT Primary Care Provider [phone] Encounter Details Date Type Department Care Team (Late st Contact Info) Description 07/30/2024 Procedure Pass [facility], Ct Scan - [address] [address] Social History Tobacco Use Types Packs/Day Years [...] 07/30/2024 11:26 AM Laila Go RN * [place] Suicide Severity Rating Scale (Screener/Recent Self-Report) Question [...] documented as of this encounter Care Teams Outcomes Manager Relationship Specialty Start Date End Date Catie Isabel NP [address] [place] [address] PCP - General Nurse Practitioner 02/22/24 documented as of this encounter Additional Source Comments The information contained in this document represents components of the legal health record. It is not the complete legal health record.[facility]
--- OUTSIDE RECORDS SUMMARY | 2024-12-11 22:21 | XMS_ITS | Encounter Summary ---
Author Organization [facility] Address [address] [facility] [address] [place] [address] Phone Care Team Providers Care Hydro Electric Station Operator Name Role Phone Catie Isabel CRYSTAL CALIBRATOR Primary Care Provider [phone]- [phone] Encounter Details Date Type Department Care Team (Late st Contact Info) Description 05/14/2024 Procedure Pass [facility], Main [address] [place] [address] Social History Tobacco Use Types Packs/Day Years [...] documented as of this encounter Care Teams Hydro Electric Station Operator Relationship Specialty Start Date End Date Catie Isabel NP [address] [place] [address] PCP - General Nurse Practitioner 02/22/24 documented as of this encounter Additional Source Comments The information contained in this document represents components of the legal health record. It is not the complete legal health record.[facility]
--- OUTSIDE RECORDS SUMMARY | 2024-12-11 22:21 | XMS_ITS | Encounter Summary ---
Author Organization [facility] Address [address] [facility] [address] [place] [address] Phone Care Team Providers Care Engraver Wood Name Role Phone Catie Isabel JEWELRY SALES Primary Care Provider [phone]- [phone] Encounter Details Date Type Department Care Team (Late st Contact Info) Description 05/14/2024 Procedure Pass [facility] [place] [address] [place] [address] Social History Tobacco Use Types Packs/Day Years [...] documented as of this encounter Care Teams Engraver Wood Relationship Specialty Start Date End Date Catie Isabel NP [address] [place] [address] PCP - General Nurse Practitioner 02/22/24 documented as of this encounter Additional Source Comments The information contained in this document represents components of the legal health record. It is not the complete legal health record.[facility]
[2024-12-11 22:38] VITALS: BP 118/74; PULSE 95; RESP 18; O2SAT 97
--- NOTE | 2024-12-11 23:04 | MHC.EDTECH ---
Went to do a covid swab and flu swab on the pt. Pt refused to have the tests done. She said shes doesnt have that and shes not getting tested for it
[2024-12-11 23:20] VITALS: PULSE 100; RESP 16; O2SAT 98
[2024-12-11] MEDS: Albuterol/Iprat 2.5/0.5MG 3 ML AMPUL.NEB INHALE (23:23)
[2024-12-11 23:45] VITALS: RESP 18
[2024-12-11] MEDS: diazePAM 10 MG/2 ML CARTRIDGE 2.5 MG IVPUSH (23:45)
[2024-12-11 23:50] LABS: Lipase 34 U/L (8-78)
[2024-12-12] VITALS (8 sets, daily range): BP systolic 109–122; BP diastolic 50–70; PULSE 77–103; RESP 16–20; TEMP 36–37; O2SAT 93–97; BMI 26.0
[2024-12-12] MEDS: iohexoL 350 MG/ML 100 ML INFUS..BTL 85 ML IV (01:27)
--- NOTE | 2024-12-12 03:44 | PC.NURSE ---
fluids are not infusing alone- RN had to put a pressure bag.
--- NOTE | 2024-12-12 03:54 | ED.GENADULT ---
HPI - General Adult General Chief complaint: General Medical Stated complaint: abd pain, difficulty pain, cp Time Seen by Provider: 12/11/24 23:04 Source: patient Mode of arrival: ambulatory Limitations: no limitations History of Present Illness ED Provider: Dr. Shaneka Colón HPI narrative: patient comes to the emergency room complaining of abdominal pain. Patient states that the abdominal pain is bilateral in the upper quadrants and radiates towards the lower quadrants. Patient reports that she has been saying blood with urination, especially when she wipes. Patient complaining of nausea, no vomiting, no diarrhea or constipation. Patient states that she has does not feel right. Patient states that she has had multiple small-bowel obstructions in the past. Patient states that at this time, the pain is not as bad as when she actually has a small bowel obstruction Related Data Home Medications ?Medication ?Instructions ?Recorded ?Confirmed cholecalciferol (vitamin D3) 125 125 mcg PO DAILY 01/05/22 11/12/24 mcg (5,000 unit) capsule multivitamin 1 tab PO DAILY 04/08/22 11/12/24 hydrocodone 5 mg-acetaminophen 325 0.5 tab PO QID PRN severe pain 02/13/24 11/12/24 mg tablet lorazepam 1 mg tablet 1 mg PO BEDTIME PRN Anxiety 02/13/24 11/12/24 guaifenesin 600 mg tablet, 600 mg PO BID 03/23/24 11/12/24 extended release 12 hr (Mucinex) mesalamine 1,000 mg rectal 1,000 mg DE BEDTIME 03/23/24 11/12/24 suppository pantoprazole 40 mg tablet,delayed 40 mg PO BID@0630,1630 03/23/24 11/12/24 release fluticasone propionate 50 2 spray intranasal DAILY 11/12/24 11/12/24 mcg/actuation nasal spray,suspension gabapentin 100 mg capsule 300 mg PO TID 11/12/24 11/12/24 ipratropium 0.5 mg-albuterol 3 mg 3 ml inhalation Q6H PRN wheezing 11/12/24 11/12/24 (2.5 mg base)/3 mL nebulization soln Previous Rx's ?Medication ?Instructions ?Recorded lidocaine 5 % topical patch 1 patch topical DAILY PRN Pain #30 10/24/22 (Lidoderm) ea polyethylene glycol 3350 17 gram 17 g PO DAILY PRN Constipation #30 02/20/24 oral powder packet ea sucralfate 100 mg/mL oral 2 g (20 mL) DE BID #1,000 mL 02/20/24 suspension hydroxychloroquine 200 mg tablet 300 mg (1.5 x 200 mg) PO DAILY 90 05/28/24 days #135 tabs doxycycline hyclate 100 mg tablet 100 mg PO DAILY Alveolitis 10 11/12/24 days #10 tabs prednisone 10 mg tablet 10 mg PO DIRECTED ILD/ 11/12/24 ALVEOLITIS 4 weeks #28 tabs albuterol sulfate 90 mcg/actuation 2 puff inhalation Q4H PRN 11/17/24 aerosol inhaler (Ventolin HFA) shortness of breath or wheezing #18 ea lorazepam 1 mg tablet (Ativan) 1 mg PO DAILY PRN anxiety 7 days 11/27/24 #7 tabs peg 3350-electrolytes 236 240 ml PO Q10M #4,000 mL 11/27/24 gram-22.74 gram-6.74 gram-5.86 gram solution (GaviLyte-G) Allergies Allergy/AdvReac Type Severity Reaction Status Date / Time ciprofloxacin (From Cipro) AdvReac Intermediate Facial Verified 12/11/24 21:06 redness, lip swelling Review of Systems Review of Systems: Constitutional : No Weight loss, No Fever, No Chills, No Night Sweats, No Fatigue, No Malaise ENT/Mouth : No Hearing loss, No Ear Pain, No Nasal Congestion, No Sinus Pain, No Hoarseness, No sore throat, No Rhinorrhea, No Swallowing Difficulty Eyes: No Eye Pain, No Swelling, No Redness, No Foreign Body, No Discharge, No Vision Changes Cardiovascular : No Chest Pain, No SOB, No Dyspnea on Exertion, No Orthopnea, No Edema, No Palpitations Respiratory : No Cough, No Sputum, No Wheezing, No Smoke Exposure, No Dyspnea Gastrointestinal : patient complaining of nausea, no vomiting or diarrhea, no constipation. Complaining of abdominal pain, starts from bilateral upper abdomen towards the lower abdomen Genitourinary : no irregular bleeding, No Dysuria, No Urinary Frequency, No Hematuria, No Urinary Incontinence, No Urgency, No Flank Pain, No Urinary Flow Changes, No Hesitancy Musculoskeletal : No joint pain, No Myalgias, No Joint Swelling Skin : No Skin Lesions, No rash Neuro : No Weakness, No Numbness, No Paresthesias, No Loss of Consciousness, No Dizziness, No Headache Psych : No Anxiety/Panic, No Depression, No SI/HI/AH/VH, No Social Issues, Heme/Lymph: No Bruising, No Bleeding,No Lymphadenopathy Endocrine : No Polyuria, No Polydipsia, No Temperature Intolerance [facility] Past Medical History Medical History Fibrosing alveolitis Interstitial lung disease SBO (small bowel obstruction) Syncope Abdominal pain Bronchiectasis Shoulder pain, bilateral UTI (urinary tract infection) Arthralgia Dizziness Dysuria Acute sinusitis Periumbilical abdominal pain Flank pain Left flank pain Annual physical exam IBS (irritable bowel syndrome) Gastritis Cough Fatigue Scabies Post covid-19 condition, unspecified Elevated LFTs Diarrhea Sinusitis Bronchitis Well woman exam COPD (chronic obstructive pulmonary disease) Radiation proctitis Radiation enteritis Postmenopausal bleeding History of colon cancer Rectal bleeding Asthma Vertigo Seasonal allergies Hyperglycemia Palpitation Hemochromatosis Tubular adenoma Colon cancer Vaginal cancer Surgical History History of cholecystectomy History of esophagogastroduodenoscopy (EGD) H/O colonoscopy H/O colectomy Family History Family History Father Dementia GSW (gunshot wound) CAD (coronary artery disease) Mother GSW (gunshot wound) Family/Other Diabetes mellitus Brother CAD (coronary artery disease) Sister Multiple sclerosis Sister Rheumatoid arthritis Sister Rheumatoid arthritis Social History Social History Household Members: None Household Members Other:: aunt a 96 years old Housing: House Are you a primary youth career specialist to a significant other at home: No Do you presently have visiting nurse or other home services: No Alcohol intake: never Patient Tobacco Use Status: Never used Tobacco Smoked in Last 30 Days: No e-Cigarette/Vaping Use: Never Used Second Hand Smoke Exposure: No Use of substances other than those prescribed or required for medical reasons: No Advance Directives: Yes Advance Directives on File: Yes Advance Directives Date on File: 04/09/22 service: No Current occupational status: unemployed Sexual orientation: Straight/Heterosexual Gender identity: Female Physical Exam ED Exam Exam: Appearance: Alert. Oriented X3. No acute distress. Eyes: Pupils equal, round and reactive to light. ENT: Pharynx normal. Neck: Normal inspection. Neck supple. No lymph nodes noted. No crepitus CVS: Normal heart rate and rhythm. Pulses normal. Normal S1 and S2 Respiratory: No respiratory distress. mild bilateral wheezing, no rales or crackles Abdomen: Soft , slightly distended, complaining of tenderness to palpation in bilateral lower quadrants, no rebound or guarding. Skin: Skin warm and dry. Normal skin color. Normal skin turgor. Extremities: No lower extremity edema. No Lacerations. No Rash Neuro: Oriented X 3. No motor deficit. No sensory deficit. Moving all extremities. No slurred speech. CN 2 through 12 grossly intact Psych: calm, cooperative, normal affect Vital Signs: Vital Signs - 24 hr 12/11/24 20:59 12/11/24 22:38 12/11/24 23:20 Temperature 98.6 F Pulse Rate 94 95 100 Respiratory Rate 22 H 18 16 Blood Pressure 99/74 118/74 Pulse Oximetry 97 97 Oxygen Delivery Method Room Air Room Air 12/11/24 23:45 12/12/24 02:56 Temperature Pulse Rate Respiratory Rate 18 18 Blood Pressure Pulse Oximetry Oxygen Delivery Method BMI result Body Mass Index 26.1 Medications Administered Discontinued Medications Generic Name Dose Route Start Last Admin Trade Name Freq PRN Reason Stop Dose Admin Albuterol/Ipratropium 3 ml 12/11/24 23:19 12/11/24 23:23 Albuterol/Iprat 2.5/0.5mg 3 Ml Ampul.Neb INHALE 12/11/24 23:20 3 ml ONCE ONE Administration Diazepam 2.5 mg 12/11/24 23:18 12/11/24 23:45 Diazepam 10 Mg/2 Ml Cartridge IVPUSH 12/11/24 23:19 2.5 mg STAT STA Administration Hydromorphone HCl 1 mg 12/12/24 02:44 12/12/24 02:56 Hydromorphone Hcl 1 Mg/Ml Syringe IVPUSH 12/12/24 02:45 1 mg ONCE ONE Administration Protocol Sodium Chloride 1,000 mls @ 999 mls/hr 12/11/24 23:18 12/11/24 23:46 Ns IVCONT 12/12/24 00:18 999 mls/hr .Q1H1M ONE Administration Iohexol 85 ml 12/12/24 01:23 12/12/24 01:27 Iohexol 350 Mg/Ml 100 Ml Infus..Btl IV 12/12/24 01:24 85 ml ONCE ONE Administration Morphine Sulfate 2 mg 12/11/24 23:18 12/11/24 23:45 Morphine Sulfate 2 Mg/Ml Cartridge IVPUSH 12/11/24 23:19 2 mg ONCE ONE Administration Protocol Ondansetron HCl 4 mg 12/11/24 23:18 12/11/24 23:45 Ondansetron Hcl 4 Mg/2 Ml Vial IVPUSH 12/11/24 23:19 4 mg ONCE ONE Administration Medical Decision Making Medical Decision Making [facility] Narrative: My interpretation of labs: No Acute abnormality in patient's hematology or chemistry, patient has chronic anemia, patient has chronically slightly elevated LFTs, urinalysis negative for UTI, no blood in the urine. CT scan of the abdomen shows suspicion for low-grade small-bowel obstruction versus ileus patient has not been vomiting or retching here in the emergency room. Vitals are stable patient needed to doses of medication to control the pain, morphine and Dilaudid. I discussed the patient with our hospitalist Dr. Pelaez and surgeon Dr. Rainey. patient will be admitted by surgery and Medicine we will consult patient agrees with plan since patient has not been vomiting at this time, no over extension of the stomach on CAT scan, at this time we will hold off inserting an NG-tube. Differential Diagnosis Differential Diagnoses: The differential diagnosis associated with the presentation includes ( Pancreatitis, cholecystitis, small-bowel obstruction, diverticulitis) Admission/Observation Consideration of admission/observation: Escalation of care including admission/observation considered Consult Healthcare Provider Management of the patient was discussed with: Hospitalist and Pneumatic Systems Operator Lab Data [facility] Lab Attestation statement: I reviewed the patient's lab results. 12/11/24 21:17 12/11/24 21:17 Labs: Lab Results 12/11/24 12/11/24 Range/Units 21:17 21:22 WBC 5.8 (4.8-10.8) X10*3/uL RBC 3.24 L (4.20-5.50) X10*6/uL Hgb 10.9 L (12.0-16.0) g/dl Hct 31.8 L (37.0-47.0) % MCV 98.1 H (80.0-98.0) fL MCH 33.6 H (27.0-33.0) pg MCHC 34.3 (31.0-35.0) g/dl RDW 13.9 (11.0-16.0) % Plt Count 194 (160-400) X10*3/uL MPV 8.8 L (9.4-12.3) fL Immature Gran % (Auto) 0.3 (0.0-0.4) % Neut % (Auto) 71.3 (45-73) % Lymph % (Auto) 16.7 L (20-40) % [place] % (Auto) 9.3 (2-11) % Eos % (Auto) 2.1 (0-4) % Baso % (Auto) 0.3 (0-2) % Lymph # (Auto) 1.0 L (1.2-4.9) X10*3/uL [place] # (Auto) 0.5 (0.1-1.2) X10*3/uL Eos # (Auto) 0.1 (0.0-0.4) X10*3/uL Baso # (Auto) 0.0 (0.0-0.2) X10*3/uL Abs Immat Gran (auto) 0.02 (0.00-0.03) X10*3/uL Absolute Neuts (auto) 4.2 (2.0-8.3) x10*3/uL Absolute Nucleated RBC 0.000 (0.0-0.012) X10*3/uL Nucleated RBC % (auto) 0.0 (0.0-0.2) /100WBC Sodium 138 (135-145) mmol/L Potassium 4.4 (3.3-5.1) mmol/L Chloride 109 H (96-108) mmol/L Carbon Dioxide 23 (22-29) mmol/L Anion Gap 10 L (12-20) BUN 23 H (9-16) mg/dL Creatinine 0.74 (0.5-1.4) mg/dL Estim Creat Clear Calc 57.1 Estimated GFR > 60 Random Glucose 81 (60-115) mg/dL Calcium 8.9 (8.4-10.2) mg/dL Total Bilirubin 0.3 (0.0-1.0) mg/dL AST 61 H (5-31) U/L ALT 45 H (0-31) U/L Alkaline Phosphatase 126 H (39-117) U/L Total Protein 7.5 (6.5-8.0) g/dL Albumin 3.7 (3.5-5.0) g/dL Lipase 34 (8-78) U/L Urine Color Yellow Urine Appearance Clear Urine pH 5.5 (5.0-9.0) Ur Specific [place] 1.025 (1.005-1.025) Urine Protein Negative (Neg-Trace) mg/dL Urine Glucose (UA) Negative (Negative) mg/dL Urine Ketones Negative (Negative) mg/dL Urine Blood Negative (Negative) Urine Nitrite Negative (Negative) Ur Leukocyte Esterase Trace H (Negative) Urine RBC 0-2 (0-2) /HPF Urine WBC 0-5 (0-5) /HPF Ur Squamous Epith Cells 0-2 (0-2) /HPF Urine Bacteria None Seen (None Seen) Hyaline Casts 0-2 (0-2) /LPF Independent Interpretation I performed an independent interpretation of an: EKG and CT Scan Interpretation: my interpretation of EKG: Sinus tachycardia, heart rate 101, no ST segment depression or elevation, nonspecific T-wave inversion in lead 3, QTC 459 Radiology Impression Discussion of test interpretation with radiology: I have reviewed the radiologist's reading. Radiologist Impression: Chronic lung changes/scarring identified within the visualized portions of the bilateral lung bases. The liver is nodular in contour, consistent with cirrhosis. The gallbladder is surgically absent. Stable appearance of the biliary tree. The spleen, pancreas, and bilateral adrenal glands are within normal limits for appearance. solid organs are within normal limits. No hydronephrosis or hydroureter. No free intraperitoneal air. Mildly dilated small bowel loop with an internal air-fluid level present at the lower abdomen near the midline, measuring up to 3.4 cm in maximum diameter on axial image number 68 of series 3. There appear to be postsurgical changes of the rectum. There is mild inferior displacement of the rectum, suggesting sequela of pelvic organ prolapse. Mild rectal wall thickening present. Qzhi-[id number]-eiguvwnm colonic stool burden. Pelvic contents unremarkable. The bladder is underdistended, mildly limiting its evaluation. Minimal gas is identified within the nondependent portion of the bladder lumen. The appendix is not confidently visualized on this exam. No acute fracture visualized. Multilevel degenerative disc disease/vacuum disc phenomenon present at the lumbar spine. IMPRESSION: 1. Mildly dilated small bowel loop with an internal air-fluid level present at the lower abdomen near the midline, measuring up to 3.4 cm in maximum diameter. A developing low-grade/partial small bowel obstruction or mild, focal bowel ileus is not excluded. No CT evidence for high-grade bowel obstruction. 2. Minimal gas identified within the nondependent portion of the bladder lumen. This is nonspecific but may be iatrogenic in the setting of recent intervention/catheterization. Alternatively, infection may produce a similar appearance. Clinical correlation is advised. 3. Mild inferior displacement of the rectum, suggesting sequela of pelvic organ prolapse. There is mild rectal wall thickening which may be related to rectal underdistention or a subtle proctitis. Critical Care Time Critical Care Time Critical Care Time: Yes Total Critical Care Time: 50 Attestation: I have personally provided critical care time. Time includes review of lab data, radiology results, discussion with consultants, and monitoring for potential decompensation. Intervention performed as documented. Discharge Plan Discharge Clinical Impression: SBO (small bowel obstruction) Patient Disposition: Admitted As Inpatient Print Language: Gabonese
--- NOTE | 2024-12-12 05:41 | PC.NURSE ---
MD ordered morphine subq for pt- RN reached out to MD before administering as she has never seen an order like this for morphine- MD stated to disregard that order and they would place an IV order. MD did not place it- RN reached out again- MD gave verbal order for RN to put a 1x order for morphine 2 mg IV. RN also asked provided to kindly place a prn order for pt to have medication on days to address pain.
--- NOTE | 2024-12-12 05:46 | HO.PM.IMCN ---
History of Present Illness Data of Consult Service Date: 12/12/24 Requesting physician: Cindy Rainey Primary Care Provider: Catie Isabel CNP [facility] Reason for consult: medical mgmt Pt is a 74 yo female with PMH COPD/moderate persistent asthma, she is being evaluated for stem cell transplant, radiation proctitis, colon cancer, hemochromatosis, UTI, vaginal cancer, history of small-bowel obstruction admitted to general surgery service on 12/12/24 for small-bowel obstruction/ ileus. Patient currently nausea free as she received Zofran and reports 2 bowel movements since admission. Pt offers no specific medical needs at this time in regards to her usual medical issues. Patient does not use oxygen at home and uses albuterol nebulizers as needed for her interstitial lung disease. Patient is a nonsmoker and does not use alcohol and does not use marijuana. Patient has no history of substance use. Patient denies any recent falls or injuries. Patient has no new open wounds. Patient denies any burning or pain with urination. Patient denies any urinary or bowel incontinence. Review of Systems Review of Systems: Pt reports mild abdominal pain, previous mild nausea currently resolved after receiving medication. Pt denies any vomiting. Pt is not having chest pain, dizziness, SOB. Patient reports 2 bowel movements since admission. Patient denies any diarrhea. Yes all other systems are reviewed and are negative PMFSH Medical History Fibrosing alveolitis Interstitial lung disease SBO (small bowel obstruction) Syncope Abdominal pain Bronchiectasis Shoulder pain, bilateral UTI (urinary tract infection) Arthralgia Dizziness Dysuria Acute sinusitis Periumbilical abdominal pain Flank pain Left flank pain Annual physical exam IBS (irritable bowel syndrome) Gastritis Cough Fatigue Scabies Post covid-19 condition, unspecified Elevated LFTs Diarrhea Sinusitis Bronchitis Well woman exam COPD (chronic obstructive pulmonary disease) Radiation proctitis Radiation enteritis Postmenopausal bleeding History of colon cancer Rectal bleeding Asthma Vertigo Seasonal allergies Hyperglycemia Palpitation Hemochromatosis Tubular adenoma Colon cancer Vaginal cancer Functional capacity: independent ambulation Patient : No Family History Father Dementia GSW (gunshot wound) CAD (coronary artery disease) Mother GSW (gunshot wound) Family/Other Diabetes mellitus Brother CAD (coronary artery disease) Sister Multiple sclerosis Sister Rheumatoid arthritis Sister Rheumatoid arthritis Surgical History History of cholecystectomy History of esophagogastroduodenoscopy (EGD) H/O colonoscopy H/O colectomy Social History Household Members: None Household Members Other:: aunt a 96 years old Housing: House Are you a primary direct care provider to a significant other at home: No Do you presently have visiting nurse or other home services: No Alcohol intake: never Patient Tobacco Use Status: Never used Tobacco Smoked in Last 30 Days: No e-Cigarette/Vaping Use: Never Used Second Hand Smoke Exposure: No Use of substances other than those prescribed or required for medical reasons: No Advance Directives: Yes Advance Directives on File: Yes Advance Directives Date on File: 04/09/22 Nutrition Risks: No Nutritional Risk Patient : No service: No Current occupational status: unemployed Sexual orientation: Straight/Heterosexual Gender identity: Female Meds Allergies Allergy/AdvReac Type Severity Reaction Status Date / Time ciprofloxacin (From Cipro) AdvReac Intermediate Facial Verified 12/11/24 21:06 redness, lip swelling Active Medications: Current Medications Acetaminophen (Acetaminophen 325 Mg Tablet) 650 mg PO Q6H PRN PRN Reason: Pain, Mild 1-3,fever,headache Sodium Chloride (Ns) 1,000 mls @ 100 mls/hr IVCONT .Q10H [place]ANCIS[place] Melatonin (Melatonin 3 Mg Tablet) 6 mg PO BEDTIME PRN PRN Reason: Insomnia Ondansetron HCl (Ondansetron Hcl 4 Mg/2 Ml Vial) 4 mg IVPUSH RQ6H PRN PRN Reason: Nausea and Vomiting Sodium Chloride (0.9 % Sodium Chloride Flush 3 Ml Syringe) 3 ml IVFLUSH QSHIFT [facility] Home Medications ?Medication ?Instructions ?Recorded ?Confirmed ?Last Taken ?Type cholecalciferol (vitamin D3) 125 125 mcg PO DAILY 01/05/22 11/12/24 03/22/24 History mcg (5,000 unit) capsule multivitamin 1 tab PO DAILY 04/08/22 11/12/24 03/22/24 History hydrocodone 5 mg-acetaminophen 325 0.5 tab PO QID PRN severe pain 02/13/24 11/12/24 03/22/24 History mg tablet lorazepam 1 mg tablet 1 mg PO BEDTIME PRN Anxiety 02/13/24 11/12/24 03/22/24 History guaifenesin 600 mg tablet, 600 mg PO BID 03/23/24 11/12/24 03/22/24 History extended release 12 hr (Mucinex) mesalamine 1,000 mg rectal 1,000 mg TX BEDTIME 03/23/24 11/12/24 03/22/24 History suppository pantoprazole 40 mg tablet,delayed 40 mg PO BID@0630,1630 03/23/24 11/12/24 03/22/24 History release fluticasone propionate 50 2 spray intranasal DAILY 11/12/24 11/12/24 Unknown History mcg/actuation nasal spray,suspension gabapentin 100 mg capsule 300 mg PO TID 11/12/24 11/12/24 Unknown History ipratropium 0.5 mg-albuterol 3 mg 3 ml inhalation Q6H PRN wheezing 11/12/24 11/12/24 Unknown History (2.5 mg base)/3 mL nebulization soln Physical Exam Vital Signs and Narrative: Vital Signs: Last Vital Signs Temp 98.6 F 12/12/24 05:13 Pulse 103 H 12/12/24 05:13 Resp 20 12/12/24 05:13 BP 109/59 L 12/12/24 05:13 Pulse Ox 93 12/12/24 05:13 O2 Del Method Room Air 12/12/24 05:13 BMI result Body Mass Index 26.1 Alert and orientated X3, able to give good history., appears very energetic Neuro: CN II-X11 intact, no deficits, visual acuity intact EYES: PERRLA, EOM intact, sclerae nonicteric, conjunctiva pink, glasses on ENT: hearing intact, no issues with swallowing, uvula midline, lips moist, nares patent no epistaxis Cardiac: S1 S2 RRR, rate 90, no murmur, no JVD, no edema in Lower ext Pulmonary: lungs diminished bilateral Abdominal: BS hypo active, no guarding, tenderness, rebounding with the exam MSK: strength 5/5 upper and lower extremities : no CVA tenderness no bladder distension Extremities: no edema in lower extremities, PT and DP pulses palpable +2 Psych: mood stable, judgement and insight good Skin: No new rashes or lesions Results Labs 12/11/24 21:17 12/11/24 21:17 Labs: Laboratory Results - last 24 hr 12/11/24 12/11/24 21:17 21:22 MCV 98.1 H MCH 33.6 H MCHC 34.3 RDW 13.9 Plt Count 194 MPV 8.8 L Immature Gran % (Auto) 0.3 Neut % (Auto) 71.3 Lymph % (Auto) 16.7 L [place] % (Auto) 9.3 Eos % (Auto) 2.1 Baso % (Auto) 0.3 Lymph # (Auto) 1.0 L [place] # (Auto) 0.5 Eos # (Auto) 0.1 Baso # (Auto) 0.0 Abs Immat Gran (auto) 0.02 Absolute Neuts (auto) 4.2 Absolute Nucleated RBC 0.000 Nucleated RBC % (auto) 0.0 Anion Gap 10 L Estim Creat Clear Calc 57.1 Estimated GFR > 60 Random Glucose 81 Calcium 8.9 Total Bilirubin 0.3 AST 61 H ALT 45 H Alkaline Phosphatase 126 H Total Protein 7.5 Albumin 3.7 Lipase 34 Urine Color Yellow Urine Appearance Clear Urine pH 5.5 Ur Specific [place] 1.025 Urine Protein Negative Urine Glucose (UA) Negative Urine Ketones Negative Urine Blood Negative Urine Nitrite Negative Ur Leukocyte Esterase Trace H Urine RBC 0-2 Urine WBC 0-5 Ur Squamous Epith Cells 0-2 Urine Bacteria None Seen Hyaline Casts 0-2 ECG Attestation: I personally reviewed and interpreted this ECG as follows: (Sinus tachycardia with left axis deviation QTC 459) Prior ECG tracings: available for review Imaging Radiologist's Impressions: CT abdomen and pelvis IMPRESSION: 1. Mildly dilated small bowel loop with an internal air-fluid level present at the lower abdomen near the midline, measuring up to 3.4 cm in maximum diameter. A developing low-grade/partial small bowel obstruction or mild, focal bowel ileus is not excluded. No CT evidence for high-grade bowel obstruction. 2. Minimal gas identified within the nondependent portion of the bladder lumen. This is nonspecific but may be iatrogenic in the setting of recent intervention/catheterization. Alternatively, infection may produce a similar appearance. Clinical correlation is advised. 3. Mild inferior displacement of the rectum, suggesting sequela of pelvic organ prolapse. There is mild rectal wall thickening which may be related to rectal underdistention or a subtle proctitis. Assessment and Plan (1) SBO (small bowel obstruction): Status: Acute Plan Pt is a 74 yo female with PMH COPD/moderate persistent asthma, interstitial lung disease, radiation proctitis, colon cancer, hemochromatosis, UTI, vaginal cancer, history of small-bowel obstruction admitted to general surgery service on 12/12/24 for small-bowel obstruction. Hospitalist consulted for medical mgmt. Patient denies any diabetes or specific cardiac history. SBO MGMT Per surgery Pt is NPO Pain currently controlled Patient has had 2 bowel movements since admission Tachycardia Sinus on EKG Hydration provided Patient not normally on beta-merissa Continue to monitor on telemetry TSH and Mag are pending GERD Protonix IV Aniety Valium IV prn Patient states her anxiety is well controlled ILD Duoenbs prn steroids prn No acute hypoxic respirartory failure Oxygen prn, patient does not use oxygen at home Continuous Pulse Oximetry Patient defers need for COVID, RSV and flu Patient undergoing workup for stem cell transplant for ILD DVT prophylaxis: per surgery Full Code status Hospitalist group will continue to follow with surgery for patient's medical needs. In the interim please reach out with any questions or concerns.
[2024-12-12 06:41] LABS: Magnesium 2.1 mg/dL (1.6-2.6)
[2024-12-12 06:50] LABS: Thyroid Stimulating Hormone 1.91 uIU/mL (0.32-4.0)
--- NOTE | 2024-12-12 07:37 | PC.NURSE ---
patient a&ox3, IVF running per order, library monitor intact- nsr 90s on monitor, rr equal/non labored- lungs diminished, pt c/o lower abd pain 8/10 pain- will notify provider as there is no PRN medications ordered for pain. pt ambulatory with steady gait, call davila within reach, plan of care ongoing.
--- NOTE | 2024-12-12 07:49 | HO.NURTONUR ---
Addendum entered by Sade Titus RN 12/12/24 07:53: there is no NG tube presently. Original Note: patient a&ox3, ambulatory with steady gait. Pt comes from home with diffuse abd pain/bilat ovarian pain with nausea. CT showed ? ilius vs sbo. RR equal/non labored, lungs diminished/clear, IVF NS@100 running through 20G in Lt AC. Pt ast/alt elevated denies ETOH use. wood getter intact- presently nsr. Pt NPO. She has c/o 8/10 pain there is no PRN pain medications ordered as of yet- Dr. Rainey was notified- no new orders given as of yet.
--- NOTE | 2024-12-12 08:42 | PHA.MEDREC ---
Pharmacy Consult ? Medication Reconciliation Pharmacy has completed the medication reconciliation. Spoke to patient at bedside, able to name most medications. Says she uses an inhaler that is a disc but was unsure of name. Uses lidocaine patch on leg, and only take Vicodin about twice a week.
--- NOTE | 2024-12-12 12:21 | PM.HPGS ---
History of Present Illness History of Present Illness Date of Service: 12/12/24 Chief complaint: Abdo Pain Narrative: Pt is a 74 yo female with PMH COPD/moderate persistent asthma, she is being evaluated for stem cell transplant, radiation proctitis, colon cancer, hemochromatosis, UTI, vaginal cancer, history of small-bowel obstruction. She came into the ER today complaining of abdominal pain more right upper quadrant with some nausea no vomiting - she had been having bowel movements and passing gas but here CT scan of her abdomen and plevis showed distended small bowel consistent with low grade SBO- pt says this feels a litel like her previous episodes which have resolved with conservative care but at the same time different. Not as nauseated more pain - she has had her GB out in the past. Since admission she has passed gas and stool and denies nausea Review of Systems Review of Systems: Yes all other systems are reviewed and are negative [facility] Past Medical History Medical History Fibrosing alveolitis Interstitial lung disease SBO (small bowel obstruction) Syncope Abdominal pain Bronchiectasis Shoulder pain, bilateral UTI (urinary tract infection) Arthralgia Dizziness Dysuria Acute sinusitis Periumbilical abdominal pain Flank pain Left flank pain Annual physical exam IBS (irritable bowel syndrome) Gastritis Cough Fatigue Scabies Post covid-19 condition, unspecified Elevated LFTs Diarrhea Sinusitis Bronchitis Well woman exam COPD (chronic obstructive pulmonary disease) Radiation proctitis Radiation enteritis Postmenopausal bleeding History of colon cancer Rectal bleeding Asthma Vertigo Seasonal allergies Hyperglycemia Palpitation Hemochromatosis Tubular adenoma Colon cancer Vaginal cancer Family History Family History Father Dementia GSW (gunshot wound) CAD (coronary artery disease) Mother GSW (gunshot wound) Family/Other Diabetes mellitus Brother CAD (coronary artery disease) Sister Multiple sclerosis Sister Rheumatoid arthritis Sister Rheumatoid arthritis Surgical History Surgical History History of cholecystectomy History of esophagogastroduodenoscopy (EGD) H/O colonoscopy H/O colectomy Social History Social History Household Members: None Household Members Other:: aunt a 96 years old Housing: House Are you a primary home health care respiratory therapist to a significant other at home: No Do you presently have visiting nurse or other home services: No Alcohol intake: never Patient Tobacco Use Status: Never used Tobacco e-Cigarette/Vaping Use: Never Used Second Hand Smoke Exposure: No Advance Directives Date on File: 04/09/22 service: No Current occupational status: unemployed Sexual orientation: Straight/Heterosexual Gender identity: Female Meds Allergies Allergy/AdvReac Type Severity Reaction Status Date / Time ciprofloxacin (From Cipro) AdvReac Intermediate Facial Verified 12/11/24 21:06 redness, lip swelling Active Medications: Current Medications Acetaminophen (Acetaminophen 325 Mg Tablet) 650 mg PO Q6H PRN PRN Reason: Pain, Mild 1-3,fever,headache Albuterol Sulfate (Albuterol Sulfate 90 Mcg 8 Gm Inhaler) 2 puff INHALE Q4H PRN PRN Reason: shortness of breath or wheezing Albuterol/Ipratropium (Albuterol/Iprat 2.5/0.5mg 3 Ml Ampul.Neb) 3 ml INHALE RQ4H WHILE AWAKE PRN PRN Reason: Shortness of Breath/Wheezing Albuterol/Ipratropium (Albuterol/Iprat 2.5/0.5mg 3 Ml Ampul.Neb) 3 ml INHALE Q6H PRN PRN Reason: Wheezing Diazepam (Diazepam 10 Mg/2 Ml Cartridge) 2.5 mg IVPUSH Q4H PRN PRN Reason: Anxiety Fluticasone Propionate (Fluticasone Propionate Nasal 16 Gm [place]) 2 spray NOSTRIL-B DAILY PRN PRN Reason: Allergic Symptoms Sodium Chloride (Ns) 1,000 mls @ 100 mls/hr IVCONT .Q10H FRANCISCO Last Admin: 12/12/24 06:05 Dose: 100 mls/hr Lorazepam (Lorazepam 1 Mg Tablet) 1 mg PO BEDTIME PRN PRN Reason: Anxiety Melatonin (Melatonin 3 Mg Tablet) 6 mg PO BEDTIME PRN PRN Reason: Insomnia Morphine Sulfate (Morphine Sulfate 2 Mg/Ml Cartridge) 2 mg IVPUSH Q4H PRN; Protocol PRN Reason: Pain, Severe (Pain Scale 7-10) Non-Formulary Medication (Umeclidinium [Incruse Ellipta]) 1 inhalation INHALE DAILY PRN PRN Reason: Shortness Of Breath Non-Formulary Medication (Lidocaine [Lidoderm]) 1 patch TOPICAL DAILY PRN PRN Reason: Pain Non-Formulary Medication (Mesalamine) 1,000 mg TX BEDTIME [place]ANCISCO Non-Formulary Medication (Pantoprazole) 40 mg PO BID@0630,1630 [facility] Ondansetron HCl (Ondansetron Hcl 4 Mg/2 Ml Vial) 4 mg IVPUSH RQ6H PRN PRN Reason: Nausea and Vomiting Last Admin: 12/12/24 06:09 Dose: 4 mg Oxycodone HCl (Oxycodone Hcl Immed Release 5 Mg Tablet) 5 mg PO Q4H PRN PRN Reason: Pain, Moderate(Pain Scale 4-6) Pantoprazole Sodium (Pantoprazole Sodium 40 Mg/10 Ml Vial) 40 mg IVPUSH DAILY@0630 [facility] Last Admin: 12/12/24 06:04 Dose: 40 mg Sodium Chloride (0.9 % Sodium Chloride Flush 3 Ml Syringe) 3 ml IVFLUSH QSHIFT [facility] Last Admin: 12/12/24 07:26 Dose: Not Given Home Medications ?Medication ?Instructions ?Recorded ?Confirmed ?Last Taken ?Type cholecalciferol (vitamin D3) 125 125 mcg PO DAILY 01/05/22 12/12/24 03/22/24 History mcg (5,000 unit) capsule multivitamin 1 tab PO DAILY 04/08/22 12/12/24 03/22/24 History hydrocodone 5 mg-acetaminophen 325 0.5 tab PO DAILY PRN severe pain 02/13/24 12/12/24 03/22/24 History mg tablet lorazepam 1 mg tablet 1 mg PO BEDTIME PRN Anxiety 02/13/24 12/12/24 03/22/24 History mesalamine 1,000 mg rectal 1,000 mg TX BEDTIME 03/23/24 12/12/24 03/22/24 History suppository pantoprazole 40 mg tablet,delayed 40 mg PO BID@0630,1630 03/23/24 12/12/24 03/22/24 History release fluticasone propionate 50 2 spray intranasal DAILY PRN 11/12/24 12/12/24 Unknown History mcg/actuation nasal Allergic Symptoms spray,suspension ipratropium 0.5 mg-albuterol 3 mg 3 ml inhalation Q6H PRN wheezing 11/12/24 12/12/24 Unknown History (2.5 mg base)/3 mL nebulization soln umeclidinium 62.5 mcg/actuation 1 inh inhalation DAILY PRN 12/12/24 12/12/24 Unknown History blister powder for inhalation Shortness Of Breath (Incruse Ellipta) Physical Exam Vital Signs: Vital Signs: Last Vital Signs Temp 97.4 F 12/12/24 10:25 Pulse 83 12/12/24 10:25 Resp 16 12/12/24 10:25 BP 121/66 12/12/24 10:25 Pulse Ox 95 12/12/24 10:25 O2 Del Method Room Air 12/12/24 10:25 BMI result Body Mass Index 26.0 Const: General: cooperative, healthy appearing, comfortable and no acute distress Neck: Neck: Yes normal visual inspection Resp: Effort & Inspection: normal respiratory effort Auscultation: clear to auscultation bilaterally Cardio: Rate: regular rate Rhythm: regular rhythm GI: Other: abdomen is soft tender in right upper quadrant mildly with no guarding or rebound - no masses and active bowel sounds lots of scars and incisions on abdomen Results Results Labs: Short CBC 12/11/24 Range/Units 21:17 WBC 5.8 (4.8-10.8) X10*3/uL Hgb 10.9 L (12.0-16.0) g/dl Hct 31.8 L (37.0-47.0) % Plt Count 194 (160-400) X10*3/uL BMP 12/11/24 21:17 Sodium 138 Potassium 4.4 Chloride 109 H Carbon Dioxide 23 BUN 23 H Creatinine 0.74 Calcium 8.9 Liver Function 12/11/24 Range/Units 21:17 Total Bilirubin 0.3 (0.0-1.0) mg/dL AST 61 H (5-31) U/L ALT 45 H (0-31) U/L Alkaline Phosphatase 126 H (39-117) U/L Albumin 3.7 (3.5-5.0) g/dL Urine 12/11/24 Range/Units 21:22 Urine Color Yellow Urine Appearance Clear Urine pH 5.5 (5.0-9.0) Ur Specific [place] 1.025 (1.005-1.025) Urine Protein Negative (Neg-Trace) mg/dL Urine Glucose (UA) Negative (Negative) mg/dL Abdomen CT scan report/results: report reviewed and image reviewed CT scan - pelvis: report reviewed and image reviewed Additional studies: Ordering Physician: Shaneka Colón MD Date of Service: 12/12/24 Procedure(s): CT abdomen pelvis w IV con Accession Number(s): [id number] cc: Shaneka Colón MD; Catie Isabel [facility]~ Report Number: [id number]: Total DLP = 564.00 mGy-cm Reason for Exam: bilateral lower quad pain, hx partial colectomy ADDENDUMThis document has been electronically signed by: Chidi Howell MD on 12/12/2024 02:44:39 ADDENDUM: This report was discussed with Shaneka Colón MD on Dec 12, 2024 02:45:00 EDT. This document has been electronically signed by: Nadia Fernandez on 12/12/2024 02:45:20 Addendum Dictated By: Chidi Howell MD Addendum Signed By: <Electronically signed by Chidi Howell MD in [place]> 12/12/24245 Addendum Cosigned By: DD/ /04/243 TD/TT: 12/12/2407/03/244 CLINICAL HISTORY: bilateral lower quad pain, hx partial colectomy CT abdomen and pelvis with contrast Comparison: CT/REG/SR - CT ABDOMEN PELVIS W IV CON - 11/27/2024 12:57 AM EDT Findings: Chronic lung changes/scarring identified within the visualized portions of the bilateral lung bases. The liver is nodular in contour, consistent with cirrhosis. The gallbladder is surgically absent. Stable appearance of the biliary tree. The spleen, pancreas, and bilateral adrenal glands are within normal limits for appearance. solid organs are within normal limits. No hydronephrosis or hydroureter. No free intraperitoneal air. Mildly dilated small bowel loop with an internal air-fluid level present at the lower abdomen near the midline, measuring up to 3.4 cm in maximum diameter on axial image number 68 of series 3. There appear to be postsurgical changes of the rectum. There is mild inferior displacement of the rectum, suggesting sequela of pelvic organ prolapse. Mild rectal wall thickening present. [id number] colonic stool burden. Pelvic contents unremarkable. The bladder is underdistended, mildly limiting its evaluation. Minimal gas is identified within the nondependent portion of the bladder lumen. The appendix is not confidently visualized on this exam. No acute fracture visualized. Multilevel degenerative disc disease/vacuum disc phenomenon present at the lumbar spine. IMPRESSION: 1. Mildly dilated small bowel loop with an internal air-fluid level present at the lower abdomen near the midline, measuring up to 3.4 cm in maximum diameter. A developing low-grade/partial small bowel obstruction or mild, focal bowel ileus is not excluded. No CT evidence for high-grade bowel obstruction. 2. Minimal gas identified within the nondependent portion of the bladder lumen. This is nonspecific but may be iatrogenic in the setting of recent intervention/catheterization. Alternatively, infection may produce a similar appearance. Clinical correlation is advised. 3. Mild inferior displacement of the rectum, suggesting sequela of pelvic organ prolapse. There is mild rectal wall thickening which may be related to rectal underdistention or a subtle proctitis. This document has been electronically signed by: Chidi Howell MD on 12/12/2024 02:44:39 Dictated By: Chidi Howell MD Signed By: <Electronically signed by Chidi Howell MD in [place]> 12/12/24244 DD/ 3 TD/TT: 12/12/24243 System Support Specialist: Assessment and Plan (1) SBO (small bowel obstruction): Status: Acute Plan 74 year old female with complicatd pst surgical hx of colon cancer and colectomy and radiation to the rectum etc - with psbo episodes in the past - this isnt quite the same but pt too uncomfortable to go home so admitted with plan to observe and treat conservatively - will get med team on board. Abdomen is benign Quality Stroke Does the patient have a stroke diagnosis?: No VTE Prior VTE?: No VTE Risk Level:: Surgical - low VTE Device Contraindication: N/A - Device Ordered VTE Drug Contraindication: N/A - Med Ordered Procedures Date of Service Date of Service: 12/12/24
[2024-12-12] MEDS: Albuterol/Iprat 2.5/0.5MG 3 ML AMPUL.NEB INHALE (14:07)
--- NOTE | 2024-12-12 14:34 | MHC.CM.PN ---
PT REPORTS SHE LIVES ALONE AND HAS DAILY [employer] SHE USES A WALKER AND NO OTHER DME SHE HAS A HCP ON FILE PCP: RASHI CANTRELL IMM DELIVERED DCP: HOME, RESUME [employer] FAMILY TO TRANSPORT
[2024-12-12] MEDS: 0.9 % Sodium Chloride Flush 3 ML SYRINGE IVFLUSH (17:40)
[2024-12-12] MEDS: Albuterol Sulfate 90 MCG 8 GM INHALER 2 PUFF INHALE (18:25)
[2024-12-12] MEDS: oxyCODONE HCl Immed Release 5 MG TABLET PO (20:08)
[2024-12-12] MEDS: Magnesium Hydrox/Alum Hydrox 30 ML ORAL.SUSP 15 ML PO (22:42)
[2024-12-13] VITALS (7 sets, daily range): BP systolic 109–127; BP diastolic 50–74; PULSE 81–92; RESP 16–18; TEMP 36–36.8; O2SAT 94–97
--- NOTE | 2024-12-13 06:23 | PC.NURSE ---
At first encounter, pt was seen on bed alert and oriented, c/o upper abdl pain and nausea even after an hour of prn meds, Dr. Pelaez was notified, offered Compazine for nausea but pt refused, prn Oxycodone given. Pt has a small formed BM, prn Lorazepam given,slept fairly after.
[2024-12-13] MEDS: oxyCODONE HCl Immed Release 5 MG TABLET PO ×2 (08:53→18:50)
[2024-12-13] MEDS: Albuterol Sulfate 90 MCG 8 GM INHALER 2 PUFF INHALE (12:46)
--- NOTE | 2024-12-13 15:19 | P.PNGS_ITS ---
Subjective Subjective Date of Service: 12/14/24 Interval history: Patient feeling better in regards to nausea and vomiting obstructive picture but still having pain in her right side and going towards her back. Has had several bowel movements passing gas. No fevers or chills Physical Exam 2 Vital Signs: Vital Signs: Last Vital Signs Temp 96.8 F 12/13/24 12:00 Pulse 83 12/13/24 12:00 Resp 16 12/13/24 12:00 BP 127/74 12/13/24 12:00 Pulse Ox 95 12/13/24 12:00 O2 Del Method Room Air 12/13/24 12:00 BMI result Body Mass Index 26.0 Const: General: cooperative, healthy appearing, comfortable and no acute distress GI: Other: Abdomen is soft nondistended active bowel sounds nontender to deep palpation no guarding no rebound Objective Data Active Medications Acetaminophen (Acetaminophen 325 Mg Tablet) 650 mg PO Q6H PRN PRN Reason: Pain, Mild 1-3,fever,headache Albuterol Sulfate (Albuterol Sulfate 90 Mcg 8 Gm Inhaler) 2 puff INHALE Q4H PRN PRN Reason: shortness of breath or wheezing Last Admin: 12/13/24 12:46 Dose: 2 puff Documented By: BURJosselin Albuterol/Ipratropium (Albuterol/Iprat 2.5/0.5mg 3 Ml Ampul.Neb) 3 ml INHALE RQ4H WHILE AWAKE PRN PRN Reason: Shortness of Breath/Wheezing Last Admin: 12/12/24 14:07 Dose: 3 ml Documented By: SCOVILRegla Albuterol/Ipratropium (Albuterol/Iprat 2.5/0.5mg 3 Ml Ampul.Neb) 3 ml INHALE Q6H PRN PRN Reason: Wheezing Diazepam (Diazepam 10 Mg/2 Ml Cartridge) 2.5 mg IVPUSH Q4H PRN PRN Reason: Anxiety Fluticasone Propionate (Fluticasone Propionate Nasal 16 Gm [place]) 2 spray NOSTRIL-B DAILY PRN PRN Reason: Allergic Symptoms Sodium Chloride (Ns) 1,000 mls @ 100 mls/hr IVCONT .Q10H [place] Last Admin: 12/13/24 06:17 Dose: 100 mls/hr Documented By: HO.CASTILM Lidocaine (Lidocaine 4 % Patch Adh..Patch) 1 patch TRANSDERMA DAILY PRN PRN Reason: Pain Lorazepam (Lorazepam 1 Mg Tablet) 1 mg PO BEDTIME PRN PRN Reason: Anxiety Last Admin: 12/12/24 22:52 Dose: 1 mg Documented By: ZEB Melatonin (Melatonin 3 Mg Tablet) 6 mg PO BEDTIME PRN PRN Reason: Insomnia Morphine Sulfate (Morphine Sulfate 2 Mg/Ml Cartridge) 2 mg IVPUSH Q4H PRN; Protocol PRN Reason: Pain, Severe (Pain Scale 7-10) Last Admin: 12/13/24 12:39 Dose: 2 mg Documented By: JOSUÉ Non-Formulary Medication (Mesalamine) 1,000 mg ID BEDTIME [place] Ondansetron HCl (Ondansetron Hcl 4 Mg/2 Ml Vial) 4 mg IVPUSH RQ6H PRN PRN Reason: Nausea and Vomiting Last Admin: 12/13/24 12:46 Dose: 4 mg Documented By: JOSUÉ Oxycodone HCl (Oxycodone Hcl Immed Release 5 Mg Tablet) 5 mg PO Q4H PRN PRN Reason: Pain, Moderate(Pain Scale 4-6) Last Admin: 12/13/24 08:53 Dose: 5 mg Documented By: JOSUÉ Pantoprazole Sodium (Pantoprazole Sodium 40 Mg/10 Ml Vial) 40 mg IVPUSH DAILY@0630 [facility] Last Admin: 12/13/24 06:09 Dose: 40 mg Documented By: ZEB Prochlorperazine Edisylate (Prochlorperazine Edisylate 10 Mg/2 Ml Vial) 5 mg IVPUSH Q6H PRN PRN Reason: Nausea and Vomiting Sodium Chloride (0.9 % Sodium Chloride Flush 3 Ml Syringe) 3 ml IVFLUSH QSHIFT [facility] Last Admin: 12/13/24 08:54 Dose: Not Given Documented By: JOSUÉ Non-Admin Reason: IV Running Tiotropium [place] (Tiotropium [place] 2.5 Mcg 1 Puff/2.5 Mcg Mist.Inhal) 2 puff INHALE RDAILY PRN PRN Reason: Shortness Of Breath Labs 12/13/24 16:01 12/13/24 16:01 Procedures Date of Service Date of Service: 12/14/24 Progress Note: A&P Assessment and plan (1) Nausea and vomiting: Status: Acute Plan Patient admitted with possible early small-bowel obstruction but has improved clinically from that perspective still having abdominal pain and back pain question the etiology. Medical team following along. At this point plan will be to advance her diet since she is passing gas and stool. She is in agreement with trying to eat. Time Spent With Patient Time: Total time managing care of this patient today ____ minutes. Quality Stroke Does the patient have a stroke diagnosis?: No VTE Prior VTE?: No VTE Risk Level:: Surgical - low VTE Device Contraindication: N/A - Device Ordered VTE Drug Contraindication: N/A - Med Ordered
--- NOTE | 2024-12-13 15:49 | HO.PM.IMCN ---
History of Present Illness Data of Consult Service Date: 12/13/24 Requesting physician: Cindy Rainey Primary Care Provider: Catie Isabel CNP [facility] Reason for consult: persistent abdominal pain Patient has complaints of persistent abdominal pain and discomfort. Is it difficult to elicudate the details of her abdominal pain, as she has multiple sites of complaints, history changes regarding her abdominal pain and represents a challenging historian. The patient endorses epigastric pain, similar to prior; complaints of pressure like sensation. She also reports pain in her back - which she reports is due to the epigastric pain radiating through her abdomen to her back, but that she also suffers with separate -similar pain in her back, unrelated to her current epigastric pain. She reports bilateral pelvic pressure, and pain around the inguinal ligaments. She also reports umbilical pain and bloating relieved with gas and stooling; she reports constipation. She endorsed to the RN today that she experienced chest pain (retrosternal discomfort) that is nonpleuritic, with radiation to her left arm. The patient appears comfortable on evaluation and examination today; 15/10 pain scale subjectively reported by patient. Eating well, but reports pain abdominally postprandially. Review of Systems Review of Systems: Yes Other (thompson positive ROS) [facility] Medical History Fibrosing alveolitis Interstitial lung disease SBO (small bowel obstruction) Syncope Abdominal pain Bronchiectasis Shoulder pain, bilateral UTI (urinary tract infection) Arthralgia Dizziness Dysuria Acute sinusitis Periumbilical abdominal pain Flank pain Left flank pain Annual physical exam IBS (irritable bowel syndrome) Gastritis Cough Fatigue Scabies Post covid-19 condition, unspecified Elevated LFTs Diarrhea Sinusitis Bronchitis Well woman exam COPD (chronic obstructive pulmonary disease) Radiation proctitis Radiation enteritis Postmenopausal bleeding History of colon cancer Rectal bleeding Asthma Vertigo Seasonal allergies Hyperglycemia Palpitation Hemochromatosis Tubular adenoma Colon cancer Vaginal cancer Functional capacity: independent ambulation Family History Father Dementia GSW (gunshot wound) CAD (coronary artery disease) Mother GSW (gunshot wound) Family/Other Diabetes mellitus Brother CAD (coronary artery disease) Sister Multiple sclerosis Sister Rheumatoid arthritis Sister Rheumatoid arthritis Surgical History History of cholecystectomy History of esophagogastroduodenoscopy (EGD) H/O colonoscopy H/O colectomy Social History Household Members: None Household Members Other:: aunt a 96 years old Housing: House Are you a primary day care aide to a significant other at home: No Do you presently have visiting nurse or other home services: No Alcohol intake: never Patient Tobacco Use Status: Never used Tobacco e-Cigarette/Vaping Use: Never Used Second Hand Smoke Exposure: No Advance Directives Date on File: 04/09/22 service: No Current occupational status: unemployed Sexual orientation: Straight/Heterosexual Gender identity: Female Meds Allergies Allergy/AdvReac Type Severity Reaction Status Date / Time ciprofloxacin (From Cipro) AdvReac Intermediate Facial Verified 12/11/24 21:06 redness, lip swelling Active Medications: Current Medications Acetaminophen (Acetaminophen 325 Mg Tablet) 650 mg PO Q6H PRN PRN Reason: Pain, Mild 1-3,fever,headache Albuterol Sulfate (Albuterol Sulfate 90 Mcg 8 Gm Inhaler) 2 puff INHALE Q4H PRN PRN Reason: shortness of breath or wheezing Last Admin: 12/13/24 12:46 Dose: 2 puff Albuterol/Ipratropium (Albuterol/Iprat 2.5/0.5mg 3 Ml Ampul.Neb) 3 ml INHALE RQ4H WHILE AWAKE PRN PRN Reason: Shortness of Breath/Wheezing Last Admin: 12/12/24 14:07 Dose: 3 ml Albuterol/Ipratropium (Albuterol/Iprat 2.5/0.5mg 3 Ml Ampul.Neb) 3 ml INHALE Q6H PRN PRN Reason: Wheezing Diazepam (Diazepam 10 Mg/2 Ml Cartridge) 2.5 mg IVPUSH Q4H PRN PRN Reason: Anxiety Fluticasone Propionate (Fluticasone Propionate Nasal 16 Gm [employer]) 2 spray NOSTRIL-B DAILY PRN PRN Reason: Allergic Symptoms Sodium Chloride (Ns) 1,000 mls @ 100 mls/hr IVCONT .Q10H [place] Last Admin: 12/13/24 06:17 Dose: 100 mls/hr Lidocaine (Lidocaine 4 % Patch Adh..Patch) 1 patch TRANSDERMA DAILY PRN PRN Reason: Pain Lorazepam (Lorazepam 1 Mg Tablet) 1 mg PO BEDTIME PRN PRN Reason: Anxiety Last Admin: 12/12/24 22:52 Dose: 1 mg Melatonin (Melatonin 3 Mg Tablet) 6 mg PO BEDTIME PRN PRN Reason: Insomnia Morphine Sulfate (Morphine Sulfate 2 Mg/Ml Cartridge) 2 mg IVPUSH Q4H PRN; Protocol PRN Reason: Pain, Severe (Pain Scale 7-10) Last Admin: 12/13/24 12:39 Dose: 2 mg Non-Formulary Medication (Mesalamine) 1,000 mg [place] BEDTIME [place] Ondansetron HCl (Ondansetron Hcl 4 Mg/2 Ml Vial) 4 mg IVPUSH RQ6H PRN PRN Reason: Nausea and Vomiting Last Admin: 12/13/24 12:46 Dose: 4 mg Oxycodone HCl (Oxycodone Hcl Immed Release 5 Mg Tablet) 5 mg PO Q4H PRN PRN Reason: Pain, Moderate(Pain Scale 4-6) Last Admin: 12/13/24 08:53 Dose: 5 mg Pantoprazole Sodium (Pantoprazole Sodium 40 Mg/10 Ml Vial) 40 mg IVPUSH DAILY@0630 [facility] Last Admin: 12/13/24 06:09 Dose: 40 mg Prochlorperazine Edisylate (Prochlorperazine Edisylate 10 Mg/2 Ml Vial) 5 mg IVPUSH Q6H PRN PRN Reason: Nausea and Vomiting Sodium Chloride (0.9 % Sodium Chloride Flush 3 Ml Syringe) 3 ml IVFLUSH QSHIFT [facility] Last Admin: 12/13/24 08:54 Dose: Not Given Tiotropium [place] (Tiotropium [place] 2.5 Mcg 1 Puff/2.5 Mcg Mist.Inhal) 2 puff INHALE RDAILY PRN PRN Reason: Shortness Of Breath Home Medications ?Medication ?Instructions ?Recorded ?Confirmed ?Last Taken ?Type cholecalciferol (vitamin D3) 125 125 mcg PO DAILY 01/05/22 12/12/24 03/22/24 History mcg (5,000 unit) capsule multivitamin 1 tab PO DAILY 04/08/22 12/12/24 03/22/24 History hydrocodone 5 mg-acetaminophen 325 0.5 tab PO DAILY PRN severe pain 02/13/24 12/12/24 03/22/24 History mg tablet lorazepam 1 mg tablet 1 mg PO BEDTIME PRN Anxiety 02/13/24 12/12/24 03/22/24 History mesalamine 1,000 mg rectal 1,000 mg VT BEDTIME 03/23/24 12/12/24 03/22/24 History suppository pantoprazole 40 mg tablet,delayed 40 mg PO BID@0630,1630 03/23/24 12/12/24 03/22/24 History release fluticasone propionate 50 2 spray intranasal DAILY PRN 11/12/24 12/12/24 Unknown History mcg/actuation nasal Allergic Symptoms spray,suspension ipratropium 0.5 mg-albuterol 3 mg 3 ml inhalation Q6H PRN wheezing 11/12/24 12/12/24 Unknown History (2.5 mg base)/3 mL nebulization soln umeclidinium 62.5 mcg/actuation 1 inh inhalation DAILY PRN 12/12/24 12/12/24 Unknown History blister powder for inhalation Shortness Of Breath (Incruse Ellipta) Physical Exam Vital Signs and Narrative: Vital Signs: Last Vital Signs Temp 97.2 F 12/13/24 15:44 Pulse 88 12/13/24 15:44 Resp 16 12/13/24 15:44 BP 119/68 12/13/24 15:44 Pulse Ox 94 12/13/24 15:44 O2 Del Method Room Air 12/13/24 15:44 BMI result Body Mass Index 26.0 General: A&O x3, oriented to time place person and situation, comfortable, no pain Cardiac: S1, S2 auscultated with no S3/4, no MRG. Well perfused. Respiratory: Normal breath sounds auscultated throughout all lung zones, without wheezing, rales. Normal rate. GI/ : No abdominal pain on palpation, no masses or distentions. MSK: Normal ambulation without pain at bony prominences or musculature Neurological: Normal neurological examination on overview, without obvious CN II-XII abnormalities. 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 Hospitalist consulted for Medical management and differential for abdominal pain. Multifactorial abdominal pain SBO patient describes multiple possible etiologies for her epigastric /abdominal pain. Represents poor historian, difficult to elucidate possible osteolysis for abdominal pain Multiple CT scans of abdomen and pelvis have been performed, revealing no significant arterial disease that could account for multiple etiologies of pain SBO is possible. Pancreatitis is unlikely. GERD is likely Ketosis as possible, however the patient is eating reliably RECOMMENDATIONS would hold off further imaging for now, other than repeating KUB to evaluate SBO PPI 40 mg OD PO blood work ordered to evaluate for other causes ensure daily bowel motions: Docusate, senna, MiraLax cardiac workup to be conducted to ensure no other diagnosis is overlooked Total time managing care of this patient today: 45 minutes.
[2024-12-13] MEDS: 0.9 % Sodium Chloride Flush 3 ML SYRINGE IVFLUSH ×2 (15:51→21:09)
--- NOTE | 2024-12-13 15:56 | PC.NURSE ---
Patient continues to complain of epigastric pain and newly radiating to left shoulder, down left arm and to back. Patient reports severe pain, reporting the 2mg of Morphine is not really working, they usually give me 4 , patient has unlabored breathing, conversing in complete sentences and ambulating self to bathroom with ease. Patient keeps saying I think it's my pancreas . Informed Provider Marvin, labs ordered and additional 2mg Morphine ordered for pain. Provider Brigid informed of patient symptoms as well.
[2024-12-13 16:06] LABS: MANUAL DIFF FLAG NO
[2024-12-13 16:08] LABS: Hematocrit 26.9 % (37.0-47.0); Hemoglobin 9.1 g/dl (12.0-16.0); Imm Gran Abs Auto 0.02 X10*3/uL (0.00-0.03); Imm Gran Pct Auto 0.5 % (0.0-0.4); Lymphocytes Absolute Auto 0.6 X10*3/uL (1.2-4.9); Mean Corpuscular HGB Conc 33.8 g/dl (31.0-35.0); Mean Corpuscular Hemoglobin 33.2 pg (27.0-33.0); Mean Corpuscular Volume 98.2 fL (80.0-98.0); NRBC Abs Auto 0.000 X10*3/uL (0.0-0.012); NRBC Pct Auto 0.0 /100WBC (0.0-0.2); Platelet Count 141 X10*3/uL (160-400); Red Blood Count 2.74 X10*6/uL (4.20-5.50); White Blood Count 3.7 X10*3/uL (4.8-10.8)
[2024-12-13 16:32] LABS: Troponin-I High Sensitivity < 2.7 ng/L (<3.5-17.0)
[2024-12-13 16:38] LABS: Alanine Aminotransferase 39 U/L (0-31); Albumin Level 3.0 g/dL (3.5-5.0); Alkaline Phosphatase 99 U/L (39-117); Amylase 46 U/L (28-100); Anion Gap 9 (12-20); Aspartate Amino Transferase 59 U/L (5-31); Blood Urea Nitrogen 10 mg/dL (9-16); Calcium 7.8 mg/dL (8.4-10.2); Carbon Dioxide 23 mmol/L (22-29); Chloride 109 mmol/L (96-108); Creatinine Clr Calc Pharmacy 62.9; Estimated Glomerular Filt Rate > 60; Lipase 12 U/L (8-78); Potassium 4.3 mmol/L (3.3-5.1); Sodium 137 mmol/L (135-145); Total Protein 6.1 g/dL (6.5-8.0)
[2024-12-13] MEDS: Magnesium Hydrox/Alum Hydrox 30 ML ORAL.SUSP PO (19:45)
[2024-12-14] MEDS: Albuterol Sulfate 90 MCG 8 GM INHALER 2 PUFF INHALE ×2 (00:45→21:58)
[2024-12-14] MEDS: diazePAM 10 MG/2 ML CARTRIDGE 2.5 MG IVPUSH (00:51)
[2024-12-14 03:24] VITALS: BP 103/70; PULSE 88; RESP 17; TEMP 36.7; O2SAT 95
[2024-12-14 06:50] VITALS: BP 133/69; PULSE 88; RESP 17; TEMP 36.6; O2SAT 96
--- NOTE | 2024-12-14 07:02 | PC.NURSE ---
Refusing Fall risk interventions.
[2024-12-14] MEDS: oxyCODONE HCl Immed Release 5 MG TABLET PO ×4 (07:38→20:04)
--- NOTE | 2024-12-14 07:39 | P.PNIM_ITS ---
Subjective Subjective Date of Service: 12/14/24 Interval History: Follow up with pt reporting chest pain/discomfort yesterday Pt admitted under general surgery for SBO Complains of upper abd pain like a band wrapping around to back Some nausea, no vomiting Has been tolerating small amount of full diet BM yesterday, none today Reports passed large amount of dark red blood with clots per rectum Review of Systems Review of Systems: Yes all other systems are reviewed and are negative Physical Exam 2 Exam: Exam: General: AOx3, no acute distress Resp: CTA bilaterally CVS: S1, S2, RRR GI: +BS, no distention, upper abd tenderness Skin: Warm, dry Neuro: Cranial nerves II-XII grossly intact bilaterally. Motor grossly intact bilaterally Extremities: No edema Psych: Appropriate affect Vital Signs: Vital Signs: Last Vital Signs Temp 97.8 F 12/14/24 06:50 Pulse 88 12/14/24 06:50 Resp 17 12/14/24 06:50 BP 133/69 12/14/24 06:50 Pulse Ox 96 12/14/24 06:50 O2 Del Method Room Air 12/14/24 06:50 BMI result Body Mass Index 26.0 Objective Data Active Medications Acetaminophen (Acetaminophen 325 Mg Tablet) 650 mg PO Q6H PRN PRN Reason: Pain, Mild 1-3,fever,headache Albuterol Sulfate (Albuterol Sulfate 90 Mcg 8 Gm Inhaler) 2 puff INHALE Q4H PRN PRN Reason: shortness of breath or wheezing Last Admin: 12/14/24 00:45 Dose: 2 puff Documented By: OLEGARIO Albuterol/Ipratropium (Albuterol/Iprat 2.5/0.5mg 3 Ml Ampul.Neb) 3 ml INHALE RQ4H WHILE AWAKE PRN PRN Reason: Shortness of Breath/Wheezing Last Admin: 12/12/24 14:07 Dose: 3 ml Documented By: BEATRIZ Albuterol/Ipratropium (Albuterol/Iprat 2.5/0.5mg 3 Ml Ampul.Neb) 3 ml INHALE Q6H PRN PRN Reason: Wheezing Diazepam (Diazepam 10 Mg/2 Ml Cartridge) 2.5 mg IVPUSH Q4H PRN PRN Reason: Anxiety Last Admin: 12/14/24 00:51 Dose: 2.5 mg Documented By: OLEGARIO Fluticasone Propionate (Fluticasone Propionate Nasal 16 Gm [place]) 2 spray NOSTRIL-B DAILY PRN PRN Reason: Allergic Symptoms Lidocaine (Lidocaine 4 % Patch Adh..Patch) 1 patch TRANSDERMA DAILY PRN PRN Reason: Pain Lorazepam (Lorazepam 1 Mg Tablet) 1 mg PO BEDTIME PRN PRN Reason: Anxiety Last Admin: 12/12/24 22:52 Dose: 1 mg Melatonin (Melatonin 3 Mg Tablet) 6 mg PO BEDTIME PRN PRN Reason: Insomnia Morphine Sulfate (Morphine Sulfate 2 Mg/Ml Cartridge) 2 mg IVPUSH Q4H PRN; Protocol PRN Reason: Pain, Severe (Pain Scale 7-10) Last Admin: 12/14/24 05:00 Dose: 2 mg Documented By: OLEGARIO Non-Formulary Medication (Mesalamine) 1,000 mg [place] BEDTIME [place] Ondansetron HCl (Ondansetron Hcl 4 Mg/2 Ml Vial) 4 mg IVPUSH RQ6H PRN PRN Reason: Nausea and Vomiting Last Admin: 12/14/24 00:51 Dose: 4 mg Documented By: OLEGARIO Oxycodone HCl (Oxycodone Hcl Immed Release 5 Mg Tablet) 5 mg PO Q4H PRN PRN Reason: Pain, Moderate(Pain Scale 4-6) Last Admin: 12/13/24 18:50 Dose: 5 mg Documented By: JOSUÉ Pantoprazole Sodium (Pantoprazole Sodium 40 Mg/10 Ml Vial) 40 mg IVPUSH DAILY@0630 [facility] Last Admin: 12/14/24 05:01 Dose: 40 mg Documented By: OLEGARIO Prochlorperazine Edisylate (Prochlorperazine Edisylate 10 Mg/2 Ml Vial) 5 mg IVPUSH Q6H PRN PRN Reason: Nausea and Vomiting Sodium Chloride (0.9 % Sodium Chloride Flush 3 Ml Syringe) 3 ml IVFLUSH QSHIFT [facility] Last Admin: 12/14/24 06:58 Dose: Not Given Documented By: BALJINDER Non-Admin Reason: IV Running Tiotropium [place] (Tiotropium [place] 2.5 Mcg 1 Puff/2.5 Mcg Mist.Inhal) 2 puff INHALE RDAILY PRN PRN Reason: Shortness Of Breath Labs 12/13/24 16:01 12/13/24 16:01 Labs: Laboratory Results - last 24 hr 12/13/24 16:01 MCV 98.2 H MCH 33.2 H MCHC 33.8 RDW 13.7 Plt Count 141 L D MPV 9.1 L Immature Gran % (Auto) 0.5 H Neut % (Auto) 68.4 Lymph % (Auto) 16.2 L Cache % (Auto) 11.0 Eos % (Auto) 3.6 Baso % (Auto) 0.3 Lymph # (Auto) 0.6 L [place] # (Auto) 0.4 Eos # (Auto) 0.1 Baso # (Auto) 0.0 Abs Immat Gran (auto) 0.02 Absolute Neuts (auto) 2.5 Absolute Nucleated RBC 0.000 Nucleated RBC % (auto) 0.0 Anion Gap 9 L Estim Creat Clear Calc 62.9 Estimated GFR > 60 Random Glucose 78 Lactic Acid 0.9 Calcium 7.8 L D Total Bilirubin 0.3 AST 59 H ALT 39 H Alkaline Phosphatase 99 Troponin I High Sens < 2.7 Total Protein 6.1 L Albumin 3.0 L Amylase 46 Lipase 12 Beta-Hydroxybutyrate 0.14 Assessment and Plan (1) SBO (small bowel obstruction): Status: Acute Plan Pt is a 74 yo female with PMH COPD/moderate persistent asthma, interstitial lung disease, radiation proctitis, colon cancer, hemochromatosis, UTI, vaginal cancer, history of small-bowel obstruction admitted to general surgery service on 12/12/24 for small-bowel obstruction. Hospitalist consulted for medical mgmt. SBO Plan as per general surgery Diet has been advanced to full Pain currently controlled Had bowel movement yesterday, none today Dark red blood per rectum Reports passed large amount of dark red blood with clots per rectum starting today GI consult Monitor H&H GERD PPI Aniety Continue home Valium prn ILD Duoenbs prn steroids prn No acute hypoxic respirartory failure Patient undergoing workup for stem cell transplant for ILD Quality Stroke Does the patient have a stroke diagnosis?: No VTE Prior VTE?: No VTE Risk Level:: Surgical - low VTE Device Contraindication: N/A - Device Ordered VTE Drug Contraindication: N/A - Med Ordered
--- NOTE | 2024-12-14 08:22 | P.PNGS_ITS ---
Subjective Subjective Date of Service: 12/14/24 <Vaishali Rodriguez PA-C - Last Filed: 12/14/24 08:38> 12/14/24 <Antonio Jean-Baptiste MD - Last Filed: 12/14/24 09:33> Interval history: Passing flatus and has moved her bowels since admission. Now having more upper abdomen pain that feels different than her obstructions. She reports its worse after eating. Reports history of GERD and had upper endoscopy recently - she is unsure why or of results. <Vaishali Rodriguez PA-C - Last Filed: 12/14/24 08:38> Physical Exam 2 Vital Signs: Vital Signs: Last Vital Signs Temp 97.8 F 12/14/24 06:50 Pulse 88 12/14/24 06:50 Resp 17 12/14/24 06:50 BP 133/69 12/14/24 06:50 Pulse Ox 96 12/14/24 06:50 O2 Del Method Room Air 12/14/24 06:50 BMI result Body Mass Index 26.0 <Vaishali Rodriguez PA-C - Last Filed: 12/14/24 08:38> Const: General: comfortable, no acute distress and alert <RONN Hernandez Last Filed: 12/14/24 08:38> Orientation/consciousness: patient oriented x3 <RONN Hernandez Last Filed: 12/14/24 08:38> Resp: Effort & Inspection: normal respiratory effort <RONN Hernandez Last Filed: 12/14/24 08:38> GI: Other: mild upper abdominal tenderness R>L <RONN Hernandez Last Filed: 12/14/24 08:38> Inspection: No distended <RONN Hernandez Last Filed: 12/14/24 08:38> Palpation (GI): Soft to palpation and no guarding <RONN Hernandez Last Filed: 12/14/24 08:38> Percussion: Yes normal to percussion <RONN Hernandez Last Filed: 12/14/24 08:38> Skin: General skin exam: no rashes or lesions noted and no jaundice < Vaishali Rodriguez PA-C - Last Filed: 12/14/24 08:38> Neuro: General: patient oriented x3 <Vaishali Rodriguez PA-C - Last Filed: 12/14/24 08:38> Objective Data Active Medications Acetaminophen (Acetaminophen 325 Mg Tablet) 650 mg PO Q6H PRN PRN Reason: Pain, Mild 1-3,fever,headache Albuterol Sulfate (Albuterol Sulfate 90 Mcg 8 Gm Inhaler) 2 puff INHALE Q4H PRN PRN Reason: shortness of breath or wheezing Last Admin: 12/14/24 00:45 Dose: 2 puff Documented By: OLEGARIO Albuterol/Ipratropium (Albuterol/Iprat 2.5/0.5mg 3 Ml Ampul.Neb) 3 ml INHALE RQ4H WHILE AWAKE PRN PRN Reason: Shortness of Breath/Wheezing Last Admin: 12/12/24 14:07 Dose: 3 ml Documented By: BEATRIZ Albuterol/Ipratropium (Albuterol/Iprat 2.5/0.5mg 3 Ml Ampul.Neb) 3 ml INHALE Q6H PRN PRN Reason: Wheezing Diazepam (Diazepam 10 Mg/2 Ml Cartridge) 2.5 mg IVPUSH Q4H PRN PRN Reason: Anxiety Last Admin: 12/14/24 00:51 Dose: 2.5 mg Documented By: OLEGARIO Fluticasone Propionate (Fluticasone Propionate Nasal 16 Gm [place]) 2 spray NOSTRIL-B DAILY PRN PRN Reason: Allergic Symptoms Lidocaine (Lidocaine 4 % Patch Adh..Patch) 1 patch TRANSDERMA DAILY PRN PRN Reason: Pain Lorazepam (Lorazepam 1 Mg Tablet) 1 mg PO BEDTIME PRN PRN Reason: Anxiety Last Admin: 12/12/24 22:52 Dose: 1 mg Melatonin (Melatonin 3 Mg Tablet) 6 mg PO BEDTIME PRN PRN Reason: Insomnia Morphine Sulfate (Morphine Sulfate 2 Mg/Ml Cartridge) 2 mg IVPUSH Q4H PRN; Protocol PRN Reason: Pain, Severe (Pain Scale 7-10) Last Admin: 12/14/24 05:00 Dose: 2 mg Documented By: OLEGARIO Non-Formulary Medication (Mesalamine) 1,000 mg [place] BEDTIME [facility] Ondansetron HCl (Ondansetron Hcl 4 Mg/2 Ml Vial) 4 mg IVPUSH RQ6H PRN PRN Reason: Nausea and Vomiting Last Admin: 12/14/24 07:39 Dose: 4 mg Documented By: BALJINDER Oxycodone HCl (Oxycodone Hcl Immed Release 5 Mg Tablet) 5 mg PO Q4H PRN PRN Reason: Pain, Moderate(Pain Scale 4-6) Last Admin: 12/14/24 07:38 Dose: 5 mg Documented By: BALJINDER Pantoprazole Sodium (Pantoprazole Sodium 40 Mg/10 Ml Vial) 40 mg IVPUSH DAILY@0630 [facility] Last Admin: 12/14/24 05:01 Dose: 40 mg Documented By: OLEGARIO Polyethylene Glycol (Polyethylene Glycol 3350 17 Gm Powd.Pack) 17 gm PO DAILY [facility] Last Admin: 12/14/24 07:51 Dose: 17 gm Documented By: BALJINDER Prochlorperazine Edisylate (Prochlorperazine Edisylate 10 Mg/2 Ml Vial) 5 mg IVPUSH Q6H PRN PRN Reason: Nausea and Vomiting Sodium Chloride (0.9 % Sodium Chloride Flush 3 Ml Syringe) 3 ml IVFLUSH QSHIFT [facility] Last Admin: 12/14/24 06:58 Dose: Not Given Documented By: BALJINDER Non-Admin Reason: IV Running Tiotropium [place] (Tiotropium [place] 2.5 Mcg 1 Puff/2.5 Mcg Mist.Inhal) 2 puff INHALE RDAILY PRN PRN Reason: Shortness Of Breath <Vaishali Rodriguez PA-C - Last Filed: 12/14/24 08:38> Labs CBC & Chem 7: 12/13/24 16:01 12/13/24 16:01 <Vaishali Rodriguez PA-C - Last Filed: 12/14/24 08:38> Labs: Laboratory Results - last 24 hr 12/13/24 16:01 MCV 98.2 H MCH 33.2 H MCHC 33.8 RDW 13.7 Plt Count 141 L D MPV 9.1 L Immature Gran % (Auto) 0.5 H Neut % (Auto) 68.4 Lymph % (Auto) 16.2 L [place] % (Auto) 11.0 Eos % (Auto) 3.6 Baso % (Auto) 0.3 Lymph # (Auto) 0.6 L [place] # (Auto) 0.4 Eos # (Auto) 0.1 Baso # (Auto) 0.0 Abs Immat Gran (auto) 0.02 Absolute Neuts (auto) 2.5 Absolute Nucleated RBC 0.000 Nucleated RBC % (auto) 0.0 Anion Gap 9 L Estim Creat Clear Calc 62.9 Estimated GFR > 60 Random Glucose 78 Lactic Acid 0.9 Calcium 7.8 L D Total Bilirubin 0.3 AST 59 H ALT 39 H Alkaline Phosphatase 99 Troponin I High Sens < 2.7 Total Protein 6.1 L Albumin 3.0 L Amylase 46 Lipase 12 Beta-Hydroxybutyrate 0.14 <Vaishali Rodriguez PA-C - Last Filed: 12/14/24 08:38> Procedures Date of Service Date of Service: 12/14/24 <Vaishali Rodriguez PA-C - Last Filed: 12/14/24 08:38> 12/14/24 <Antonio Jean-Baptiste MD - Last Filed: 12/14/24 09:33> Progress Note: A&P Assessment and plan (1) Dilated bile duct: Status: Acute <Vaishali Rodriguez PA-C - Last Filed: 12/14/24 08:38> Assessment and Plan: Says he had mild upper abdominal pain No nausea or vomiting Abdomen is soft and benign Hemoglobin has drifted down but no obvious evidence of any GI bleed Follow up CBC Okay to try clear liquids and slowly advanced PPI Seen and examined independently <Antonio Jean-Baptiste MD - Last Filed: 12/14/24 09:33> Assessment and Plan: Now with upper abd pain. Had mild transaminitis, bili normal. CBD appears significantly more dilated then on previous scan in March of this year. Will order MRCP to assess. Patient comfortable with plan. <Vaishali Rodriguez PA-C - Last Filed: 12/14/24 08:38> Time Spent With Patient Time: Total time managing care of this patient today ____ minutes. <RONN Hernandez Last Filed: 12/14/24 08:38> Quality Stroke Does the patient have a stroke diagnosis?: No <Vaishali Rodriguez PA-C - Last Filed: 12/14/24 08:38> VTE Prior VTE?: No <Vaishali Rodriguez PA-C - Last Filed: 12/14/24 08:38> VTE Risk Level:: Surgical - low <Vaishali Rodriguez PA-C - Last Filed: 12/14/24 08:38> VTE Device Contraindication: N/A - Device Ordered <Vaishali Rodriguez PA-C - Last Filed: 12/14/24 08:38> VTE Drug Contraindication: N/A - Med Ordered <Vaishali Rodriguez PA-C - Last Filed: 12/14/24 08:38>
[2024-12-14 11:03] VITALS: BP 103/55; PULSE 86; RESP 17; TEMP 36.6; O2SAT 96
--- NOTE | 2024-12-14 14:03 | MHC.CM.PN ---
EMR REVIEWED. PT WILL UNDERGO MCRP, NOT YET MEDICALLY CLEARED FOR DC HOME. CM WILL CONTINUE TO FOLLOW.
[2024-12-14 15:48] VITALS: BP 129/84; PULSE 87; RESP 19; TEMP 36.3; O2SAT 94
[2024-12-14] MEDS: 0.9 % Sodium Chloride Flush 3 ML SYRINGE IVFLUSH ×2 (15:52→19:38)
--- NOTE | 2024-12-14 17:13 | PC.NURSE ---
pt had a small BM, about the size of a quarter, noted a little bloody, PA notified.
[2024-12-14 20:00] VITALS: BP 124/76; PULSE 81; RESP 19; TEMP 36.2; O2SAT 96
[2024-12-15] VITALS (7 sets, daily range): BP systolic 109–126; BP diastolic 50–81; PULSE 82–93; RESP 18–20; TEMP 36.8–37.2; O2SAT 94–97
[2024-12-15 06:13] LABS: Hematocrit 27.9 % (37.0-47.0); Hemoglobin 9.2 g/dl (12.0-16.0); Mean Corpuscular HGB Conc 33.0 g/dl (31.0-35.0); Mean Corpuscular Hemoglobin 32.9 pg (27.0-33.0); Mean Corpuscular Volume 99.6 fL (80.0-98.0); NRBC Abs Auto 0.000 X10*3/uL (0.0-0.012); NRBC Pct Auto 0.0 /100WBC (0.0-0.2); Platelet Count 137 X10*3/uL (160-400); Red Blood Count 2.80 X10*6/uL (4.20-5.50); White Blood Count 3.7 X10*3/uL (4.8-10.8)
--- NOTE | 2024-12-15 09:03 | PM.PNGS ---
Subjective Subjective Date of Service: 12/15/24 <Vaishali Rodriguez PA-C - Last Filed: 12/15/24 10:10> 12/15/24 <Antonio Jean-Baptiste MD - Last Filed: 12/15/24 09:56> Interval history: Has persistent upper abdominal pain that wraps around to her back. Some associated nausea but tolerating solid diet. Passing flatus and reports of passing large clot yesterday. 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 Is due for repeat screening due to PH of colon CA. <Vaishali Rodriguez PA-C - Last Filed: 12/15/24 10:10> Physical Exam Vital Signs: Vital Signs: Last Vital Signs Temp 98.4 F 12/15/24 07:55 Pulse 84 12/15/24 07:55 Resp 18 12/15/24 07:55 BP 111/67 12/15/24 07:55 Pulse Ox 96 12/15/24 07:55 O2 Del Method Room Air 12/15/24 07:55 BMI result Body Mass Index 26.0 <Vaishali Rodriguez PA-C - Last Filed: 12/15/24 10:10> Const: General: comfortable, no acute distress and alert <RONN Hernandez Last Filed: 12/15/24 10:10> Orientation/consciousness: patient oriented x3 <Vaishali Rodriguez PA-C - Last Filed: 12/15/24 10:10> Resp: Effort & Inspection: normal respiratory effort <RONN Hernandez Last Filed: 12/15/24 10:10> GI: Inspection: No distended <RONN Hernandez Last Filed: 12/15/24 10:10> Palpation (GI): Soft to palpation, Tenderness to palpation present (GI) (mild upper abdomen) and no guarding <RONN Hernandez Last Filed: 12/15/24 10:10> Skin: General skin exam: no rashes or lesions noted <RONN Hernandez Last Filed: 12/15/24 10:10> Neuro: General: patient oriented x3 and moves all extremities <Vaishali Rodriguez PA-C - Last Filed: 12/15/24 10:10> Objective Data Active Medications Acetaminophen (Acetaminophen 325 Mg Tablet) 650 mg PO Q6H PRN PRN Reason: Pain, Mild 1-3,fever,headache Albuterol Sulfate (Albuterol Sulfate 90 Mcg 8 Gm Inhaler) 2 puff INHALE Q4H PRN PRN Reason: shortness of breath or wheezing Last Admin: 12/14/24 21:58 Dose: 2 puff Documented By: TR Albuterol/Ipratropium (Albuterol/Iprat 2.5/0.5mg 3 Ml Ampul.Neb) 3 ml INHALE RQ4H WHILE AWAKE PRN PRN Reason: Shortness of Breath/Wheezing Last Admin: 12/12/24 14:07 Dose: 3 ml Documented By: BEATRIZ Albuterol/Ipratropium (Albuterol/Iprat 2.5/0.5mg 3 Ml Ampul.Neb) 3 ml INHALE Q6H PRN PRN Reason: Wheezing Diazepam (Diazepam 10 Mg/2 Ml Cartridge) 2.5 mg IVPUSH Q4H PRN PRN Reason: Anxiety Last Admin: 12/14/24 00:51 Dose: 2.5 mg Documented By: OLEGARIO Fluticasone Propionate (Fluticasone Propionate Nasal 16 Gm [place]) 2 spray NOSTRIL-B DAILY PRN PRN Reason: Allergic Symptoms Lidocaine (Lidocaine 4 % Patch Adh..Patch) 1 patch TRANSDERMA DAILY PRN PRN Reason: Pain Lorazepam (Lorazepam 1 Mg Tablet) 1 mg PO BEDTIME PRN PRN Reason: Anxiety Last Admin: 12/14/24 21:58 Dose: 1 mg Documented By: TR Melatonin (Melatonin 3 Mg Tablet) 6 mg PO BEDTIME PRN PRN Reason: Insomnia Morphine Sulfate (Morphine Sulfate 2 Mg/Ml Cartridge) 2 mg IVPUSH Q4H PRN; Protocol PRN Reason: Pain, Severe (Pain Scale 7-10) Last Admin: 12/15/24 08:18 Dose: 2 mg Documented By: EDWIN Non-Formulary Medication (Mesalamine) 1,000 mg [place] BEDTIME [facility] Ondansetron HCl (Ondansetron Hcl 4 Mg/2 Ml Vial) 4 mg IVPUSH RQ6H PRN PRN Reason: Nausea and Vomiting Last Admin: 12/15/24 08:18 Dose: 4 mg Documented By: EDWIN Oxycodone HCl (Oxycodone Hcl Immed Release 5 Mg Tablet) 5 mg PO Q4H PRN PRN Reason: Pain, Moderate(Pain Scale 4-6) Last Admin: 12/14/24 20:04 Dose: 5 mg Documented By: TR Polyethylene Glycol (Polyethylene Glycol 3350 17 Gm Powd.Pack) 17 gm PO DAILY [facility] Last Admin: 12/15/24 08:13 Dose: 17 gm Documented By: EDWIN Prochlorperazine Edisylate (Prochlorperazine Edisylate 10 Mg/2 Ml Vial) 5 mg IVPUSH Q6H PRN PRN Reason: Nausea and Vomiting Last Admin: 12/14/24 10:19 Dose: 5 mg Documented By: BALJINDER Sodium Chloride (0.9 % Sodium Chloride Flush 3 Ml Syringe) [facility] Last Admin: 12/14/24 19:38 Dose: 3 ml Documented By: TR Tiotropium [place] (Tiotropium [place] 2.5 Mcg 1 Puff/2.5 Mcg Mist.Inhal) 2 puff INHALE RDAILY PRN PRN Reason: Shortness Of Breath <Vaishali Rodriguez PA-C - Last Filed: 12/15/24 10:10> Labs CBC & Chem 7: 12/15/24 05:35 12/13/24 16:01 <Vaishali Rodriguez PA-C - Last Filed: 12/15/24 10:10> Labs: Laboratory Results - last 24 hr 12/15/24 05:35 MCV 99.6 H MCH 32.9 MCHC 33.0 RDW 13.3 Plt Count 137 L MPV 9.4 Absolute Nucleated RBC 0.000 Nucleated RBC % (auto) 0.0 <Vaishali Rodriguez PA-C - Last Filed: 12/15/24 10:10> Procedures Date of Service Date of Service: 12/15/24 <Vaishali Rodriguez PA-C - Last Filed: 12/15/24 10:10> 12/15/24 <Antonio Jean-Baptiste MD - Last Filed: 12/15/24 09:56> Progress Note: A&P Assessment and plan (1) Abdominal pain: Status: Acute <Vaishali Rodriguez PA-C - Last Filed: 12/15/24 10:10> Assessment and Plan: Feels much better Tolerating diet Abdomen is soft and benign Hemoglobin stable MRCP reviewed - pancreatic cyst seen, with recommendations to do follow up with IV contrast down the line I reminded her that she may benefit from colonoscopy as she seems to be due Looks well overall No clinical signs of obstruction Possible DC home later today or tomorrow Seen and examined independently <Antonio Jean-Baptiste MD - Last Filed: 12/15/24 09:56> Assessment and Plan: GI consulted by hospitalist service. Will await input. Patient has history of RAVE. H/H is stable. MRCP yesterday with multiple pancreatic cysts and recommend repeat with IV contrast- can be done as outpatient. Will obtain records from [facility] regarding upper endoscopy as she is unsure of the results. Otherwise clinically appearing well and possibly home if cont to tolerate diet, no further bleeding. <Vaishali Rodriguez PA-C - Last Filed: 12/15/24 10:10> Time Spent With Patient Time: Total time managing care of this patient today ____ minutes. <Vaishali Rodriguez PA-C - Last Filed: 12/15/24 10:10> Quality Stroke Does the patient have a stroke diagnosis?: No <Vaishali Rodriguez PA-C - Last Filed: 12/15/24 10:10> VTE Prior VTE?: No <Vaishali Rodriguez PA-C - Last Filed: 12/15/24 10:10> VTE Risk Level:: Surgical - low <Vaishali Rodriguez PA-C - Last Filed: 12/15/24 10:10> VTE Device Contraindication: N/A - Device Ordered <Vaishali Rodriguez PA-C - Last Filed: 12/15/24 10:10> VTE Drug Contraindication: N/A - Med Ordered <Vaishali Rodriguez PA-C - Last Filed: 12/15/24 10:10>
--- NOTE | 2024-12-15 09:05 | P.CNGI_ITS ---
History of Present Illness Data of Consult Service Date: 12/15/24 Primary Care Provider: Catie Isabel CNP HPI 74 yo female with PMH COPD/moderate persistent asthma/ILD, she is being evaluated for stem cell transplant, radiation proctitis, colon cancer, hemochromatosis, UTI, vaginal cancer, history of small-bowel obstruction who I am seeing for rectal bleeding. Patient was intially admitted for 10/10 RUQ pain going into the back like a band and worse with food. CT imaging was suspcious for low grade SBO so she was managed conservatively and the pain is now minimal, she has been passing gas and stools. She had a few episodes of bloody stools with clots but nothing today. HGB slightly lower than baseline also has a pancytopenia which is new. LFT elevated. She had colonoscopy 03/03 with FAISAL and had APC treatment. MRCP done this admission with dilated CBD but no filling defects and pancreatic cysts. Review of Systems 2 Review of Systems: Constitutional : No Weight loss, No Fever, No Chills ENT/Mouth : No sore throat, No Rhinorrhea Eyes: No Swelling, No Redness Cardiovascular : No Chest Pain, No SOB, No Edema Respiratory : No Cough, No Sputum, No Wheezing Gastrointestinal : see HPI Genitourinary : NO Dysuria, No Urinary Frequency, No Hematuria, No Urgency Musculoskeletal : + joint pain, No Myalgias, No Joint Swelling Skin : No Skin Lesions, No rash Neuro : No Weakness, No Numbness, No Dizziness, No Headache Psych : No Anxiety/Panic, No Depression Heme/Lymph: No Bruising, No Lymphadenopathy Endocrine : No Polyuria, No Polydipsia All other systems reviewed and are negative. [facility] Past Medical History Medical History (Updated 12/15/24 @ 09:55 by Antonio Jean-Baptiste MD) Abdominal pain Fibrosing alveolitis Interstitial lung disease SBO (small bowel obstruction) Syncope Abdominal pain Bronchiectasis Shoulder pain, bilateral UTI (urinary tract infection) Arthralgia Dizziness Dysuria Acute sinusitis Periumbilical abdominal pain Flank pain Left flank pain Annual physical exam IBS (irritable bowel syndrome) Gastritis Cough Fatigue Scabies Post covid-19 condition, unspecified Elevated LFTs Diarrhea Sinusitis Bronchitis Well woman exam COPD (chronic obstructive pulmonary disease) Radiation proctitis Radiation enteritis Postmenopausal bleeding History of colon cancer Rectal bleeding Asthma Vertigo Seasonal allergies Hyperglycemia Palpitation Hemochromatosis Tubular adenoma Colon cancer Vaginal cancer Family History Family History Father Dementia GSW (gunshot wound) CAD (coronary artery disease) Mother GSW (gunshot wound) Family/Other Diabetes mellitus Brother CAD (coronary artery disease) Sister Multiple sclerosis Sister Rheumatoid arthritis Sister Rheumatoid arthritis Surgical History Surgical History History of cholecystectomy History of esophagogastroduodenoscopy (EGD) H/O colonoscopy H/O colectomy Social History Social History Household Members: None Household Members Other:: aunt a 96 years old Housing: House Are you a primary palliative care physician to a significant other at home: No Do you presently have visiting nurse or other home services: No Alcohol intake: never Comment: pt refuses Patient Tobacco Use Status: Never used Tobacco Smoked in Last 30 Days: No e-Cigarette/Vaping Use: Never Used Patient Interested in Nicotine Replacement: No Patient Given Instructions on How to Stop Smoking: No Second Hand Smoke Exposure: No Use of substances other than those prescribed or required for medical reasons: No Currently Displaying Signs/Symptoms of Drug Intoxication Withdrawal: No Have you been hit, kicked, punched, or otherwise hurt by someone within the past year? If so, by whom?: No Do you feel safe in your current relationship?: No Current Relationship Is there a partner from a previous relationship who is making you feel unsafe now?: No Are you made to feel afraid or neglected: No Advance Directives: Yes Advance Directives on File: Yes Advance Directives Date on File: 04/09/22 Do you have a plan to hurt others: No Plan Recently lost weight without trying: No Nutrition Risks: No Nutritional Risk Patient : No : No Poor oral hygiene: No service: No Current occupational status: unemployed Sexual orientation: Straight/Heterosexual Gender identity: Female Meds Allergies Allergy/AdvReac Type Severity Reaction Status Date / Time ciprofloxacin (From Cipro) AdvReac Intermediate Facial Verified 12/11/24 21:06 redness, lip swelling Active Medications: Current Medications Acetaminophen (Acetaminophen 325 Mg Tablet) 650 mg PO Q6H PRN PRN Reason: Pain, Mild 1-3,fever,headache Albuterol Sulfate (Albuterol Sulfate 90 Mcg 8 Gm Inhaler) 2 puff INHALE Q4H PRN PRN Reason: shortness of breath or wheezing Last Admin: 12/14/24 21:58 Dose: 2 puff Albuterol/Ipratropium (Albuterol/Iprat 2.5/0.5mg 3 Ml Ampul.Neb) 3 ml INHALE RQ4H WHILE AWAKE PRN PRN Reason: Shortness of Breath/Wheezing Last Admin: 12/12/24 14:07 Dose: 3 ml Albuterol/Ipratropium (Albuterol/Iprat 2.5/0.5mg 3 Ml Ampul.Neb) 3 ml INHALE Q6H PRN PRN Reason: Wheezing Diazepam (Diazepam 10 Mg/2 Ml Cartridge) 2.5 mg IVPUSH Q4H PRN PRN Reason: Anxiety Last Admin: 12/14/24 00:51 Dose: 2.5 mg Fluticasone Propionate (Fluticasone Propionate Nasal 16 Gm [place]) 2 spray NOSTRIL-B DAILY PRN PRN Reason: Allergic Symptoms Lidocaine (Lidocaine 4 % Patch Adh..Patch) 1 patch TRANSDERMA DAILY PRN PRN Reason: Pain Lorazepam (Lorazepam 1 Mg Tablet) 1 mg PO BEDTIME PRN PRN Reason: Anxiety Last Admin: 12/14/24 21:58 Dose: 1 mg Melatonin (Melatonin 3 Mg Tablet) 6 mg PO BEDTIME PRN PRN Reason: Insomnia Morphine Sulfate (Morphine Sulfate 2 Mg/Ml Cartridge) 2 mg IVPUSH Q4H PRN; Protocol PRN Reason: Pain, Severe (Pain Scale 7-10) Last Admin: 12/15/24 08:18 Dose: 2 mg Non-Formulary Medication (Mesalamine) 1,000 mg [place] BEDTIME [facility] Ondansetron HCl (Ondansetron Hcl 4 Mg/2 Ml Vial) 4 mg IVPUSH RQ6H PRN PRN Reason: Nausea and Vomiting Last Admin: 12/15/24 08:18 Dose: 4 mg Oxycodone HCl (Oxycodone Hcl Immed Release 5 Mg Tablet) 5 mg PO Q4H PRN PRN Reason: Pain, Moderate(Pain Scale 4-6) Last Admin: 12/14/24 20:04 Dose: 5 mg Polyethylene Glycol (Polyethylene Glycol 3350 17 Gm Powd.Pack) 17 gm PO DAILY [facility] Last Admin: 12/15/24 08:13 Dose: 17 gm Prochlorperazine Edisylate (Prochlorperazine Edisylate 10 Mg/2 Ml Vial) 5 mg IVPUSH Q6H PRN PRN Reason: Nausea and Vomiting Last Admin: 12/14/24 10:19 Dose: 5 mg Sodium Chloride (0.9 % Sodium Chloride Flush 3 Ml Syringe) 3 ml IVFLUSH QSHIFT [facility] Last Admin: 12/14/24 19:38 Dose: 3 ml Tiotropium [place] (Tiotropium [place] 2.5 Mcg 1 Puff/2.5 Mcg Mist.Inhal) 2 puff INHALE RDAILY PRN PRN Reason: Shortness Of Breath Home Medications ?Medication ?Instructions ?Recorded ?Confirmed ?Last Taken ?Type cholecalciferol (vitamin D3) 125 125 mcg PO DAILY 12/1012/12/24 03/22/24 History mcg (5,000 unit) capsule multivitamin 1 tab PO DAILY 04/08/2207/0303/22/24 History hydrocodone 5 mg-acetaminophen 325 0.5 tab PO DAILY [place] N severe pain 02/13/24 12/12/24 03/22/24 History mg tablet lorazepam 1 mg tablet 1 mg PO BEDTIME PRN Anxiety 02/13/24 12/12/24 03/22/24 History mesalamine 1,000 mg rectal 1,000 mg [place] BEDTIME 5 12/12/24 03/22/24 History suppository pantoprazole 40 mg tablet,delayed 40 mg PO BID@0630,16 30 03/23/24 12/12/24 03/22/24 History release fluticasone propionate 50 2 spray intranasal DAILY PRN 11/12/24 12/12/24 Unknown History mcg/actuation nasal Allergic Symptoms spray,suspension ipratropium 0.5 mg-albuterol 3 mg 3 ml inhalation Q6H PRN wheezing 11/12/24 12/12/24 Unknown History (2.5 mg base)/3 mL nebulization soln umeclidinium 62.5 mcg/actuation 1 inh inhalation DAILY PRN 12/12/24 12/12/24 Unknown History blister powder for inhalation Shortness Of Breath (Incruse Ellipta) Physical Exam 2 Exam: Exam: EXAM: GENERAL: The patient is well developed and nontoxic. VITAL SIGNS:see workflow HEENT: Nonicteric sclerae, PERRLA, EOMI. Oropharynx clear. Moist mucous membranes. Conjunctivae appear well perfused. No thyroid mass. CHEST: Chest wall is nontender. HEART: Regular rate and rhythm without murmurs. LUNGS: Clear to auscultation bilaterally. ABDOMEN: Soft, positive bowel sounds, nontender, no organomegaly.no flank tenderness SKIN: No rash, no excessive bruising, petechiae, or purpura. NEUROLOGIC: Cranial nerves II-XII intact without motor/sensory deficit. Psych: normal affect Vital Signs: Vital Signs: Last Vital Signs Temp 98.4 F 12/15/24 07:55 Pulse 84 12/15/24 07:55 Resp 18 12/15/24 07:55 BP 111/67 12/15/24 07:55 Pulse Ox 96 12/15/24 07:55 O2 Del Method Room Air 12/15/24 07:55 BMI result Body Mass Index 26.0 Results Labs 12/15/24 05:35 12/13/24 16:01 Labs: Short CBC 12/15/24 Range/Units 05:35 WBC 3.7 L (4.8-10.8) X10*3/uL Hgb 9.2 L (12.0-16.0) g/dl Hct 27.9 L (37.0-47.0) % Plt Count 137 L (160-400) X10*3/uL Imaging MRI - abdomen: Attestation: I personally reviewed and interpreted this imaging study as follows: (dilated CBD and intrahepatic ducts, panc cysts) Assessment and Plan (1) Radiation proctitis: Status: Acute Plan 1/ Rectal bleeding, most likely 2/2 RAVE 2/Abn LFT with CBD dilation and 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
[2024-12-15] MEDS: Pramoxine HCl 1 % Rectal Foam 15 GM 1 APPL PR (14:12)
[2024-12-15] MEDS: 0.9 % Sodium Chloride Flush 3 ML SYRINGE IVFLUSH ×2 (17:05→21:54)
[2024-12-15] MEDS: oxyCODONE HCl Immed Release 5 MG TABLET PO (20:00)
[2024-12-15] MEDS: Albuterol Sulfate 90 MCG 8 GM INHALER 2 PUFF INHALE (20:03)
[2024-12-15] MEDS: diazePAM 10 MG/2 ML CARTRIDGE 2.5 MG IVPUSH (21:54)
[2024-12-16 02:53] VITALS: BP 135/50; PULSE 84; RESP 18; TEMP 36.1; O2SAT 95
[2024-12-16 07:14] VITALS: BP 120/70; PULSE 86; RESP 16; TEMP 36.1; O2SAT 95
[2024-12-16] MEDS: oxyCODONE HCl Immed Release 5 MG TABLET PO (07:16)
--- NOTE | 2024-12-16 08:00 | PM.PNGS ---
Subjective Subjective Date of Service: 12/17/24 Interval history: Says she still has some upper abdominal/epigastric pain Tolerating diet Has BMs Physical Exam Vital Signs: Vital Signs: Last Vital Signs Temp 97 F 12/16/24 07:14 Pulse 86 12/16/24 07:14 Resp 16 12/16/24 07:14 BP 120/70 12/16/24 07:14 Pulse Ox 95 12/16/24 07:14 O2 Del Method Room Air 12/16/24 07:14 BMI result Body Mass Index 26.0 Const: General: comfortable and no acute distress Resp: Effort & Inspection: normal respiratory effort Cardio: Rate: regular rate GI: Palpation (GI): Soft to palpation, not firm, Tenderness to palpation present (GI) (Very minimal tenderness to deep palpation) and no guarding Objective Data Active Medications Acetaminophen (Acetaminophen 325 Mg Tablet) 650 mg PO Q6H PRN PRN Reason: Pain, Mild 1-3,fever,headache Albuterol Sulfate (Albuterol Sulfate 90 Mcg 8 Gm Inhaler) 2 puff INHALE Q4H PRN PRN Reason: shortness of breath or wheezing Last Admin: 12/15/24 20:03 Dose: 2 puff Documented By: OLEGARIO Albuterol/Ipratropium (Albuterol/Iprat 2.5/0.5mg 3 Ml Ampul.Neb) 3 ml INHALE RQ4H WHILE AWAKE PRN PRN Reason: Shortness of Breath/Wheezing Last Admin: 12/12/24 14:07 Dose: 3 ml Documented By: [email or web address] Albuterol/Ipratropium (Albuterol/Iprat 2.5/0.5mg 3 Ml Ampul.Neb) 3 ml INHALE Q6H PRN PRN Reason: Wheezing Diazepam (Diazepam 10 Mg/2 Ml Cartridge) 2.5 mg IVPUSH Q4H PRN PRN Reason: Anxiety Last Admin: 12/15/24 21:54 Dose: 2.5 mg Documented By: OLEGARIO Dicyclomine HCl (Dicyclomine Hcl 10 Mg Capsule) 10 mg PO TIDAC FRANCISCO Last Admin: 12/16/24 07:16 Dose: 10 mg Documented By: ANNETTE Fluticasone Propionate (Fluticasone Propionate Nasal 16 Gm [place]) 2 spray NOSTRIL-B DAILY PRN PRN Reason: Allergic Symptoms Lidocaine (Lidocaine 4 % Patch Adh..Patch) 1 patch TRANSDERMA DAILY PRN PRN Reason: Pain Lorazepam (Lorazepam 1 Mg Tablet) 1 mg PO BEDTIME PRN PRN Reason: Anxiety Last Admin: 12/15/24 20:01 Dose: 1 mg Documented By: OLEGARIO Melatonin (Melatonin 3 Mg Tablet) 6 mg PO BEDTIME PRN PRN Reason: Insomnia Morphine Sulfate (Morphine Sulfate 2 Mg/Ml Cartridge) 2 mg IVPUSH Q4H PRN; Protocol PRN Reason: Pain, Severe (Pain Scale 7-10) Last Admin: 12/16/24 01:55 Dose: 2 mg Documented By: OLEGARIO Non-Formulary Medication (Mesalamine) 1,000 mg SC BEDTIME FRANCISCO Ondansetron HCl (Ondansetron Hcl 4 Mg/2 Ml Vial) 4 mg IVPUSH RQ6H PRN PRN Reason: Nausea and Vomiting Last Admin: 12/15/24 08:18 Dose: 4 mg Documented By: EDWIN Oxycodone HCl (Oxycodone Hcl Immed Release 5 Mg Tablet) 5 mg PO Q4H PRN PRN Reason: Pain, Moderate(Pain Scale 4-6) Last Admin: 12/16/24 07:16 Dose: 5 mg Documented By: ANNETTE Polyethylene Glycol (Polyethylene Glycol 3350 17 Gm Powd.Pack) 17 gm PO DAILY [facility] Last Admin: 12/16/24 07:16 Dose: 17 gm Documented By: ANNETTE Prochlorperazine Edisylate (Prochlorperazine Edisylate 10 Mg/2 Ml Vial) 5 mg IVPUSH Q6H PRN PRN Reason: Nausea and Vomiting Last Admin: 12/15/24 12:35 Dose: 5 mg Documented By: EDWIN Sodium Chloride (0.9 % Sodium Chloride Flush 3 Ml Syringe) 3 ml IVFLUSH QSHIFT [facility] Last Admin: 12/16/24 07:17 Dose: Not Given Documented By: ANNETTE Non-Admin Reason: Previously Administered Tiotropium [place] (Tiotropium [place] 2.5 Mcg 1 Puff/2.5 Mcg Mist.Inhal) 2 puff INHALE RDAILY PRN PRN Reason: Shortness Of Breath Labs 12/15/24 05:35 12/13/24 16:01 Procedures Date of Service Date of Service: 12/17/24 Progress Note: A&P Assessment and plan (1) Abdominal pain: Status: Acute Assessment and Plan: Uncertain etiology Clinically not obstructed Currently tolerating diet She is uncertain if she is ready to go home today She says she would like to have ensure H&H low this is chronic - she has had EGDs and colonoscopy We will re-evaluate later today if she is ready to be discharged I explained to her that she should have a follow up MRI as an outpatient at some point Abdomen is soft and benign otherwise Time Spent With Patient Time: Total time managing care of this patient today ____ minutes. Quality Stroke Does the patient have a stroke diagnosis?: No VTE Prior VTE?: No VTE Risk Level:: Surgical - low VTE Device Contraindication: N/A - Device Ordered VTE Drug Contraindication: N/A - Med Ordered
[2024-12-16 11:15] VITALS: BP 141/78; PULSE 88; RESP 16; TEMP 36.7; O2SAT 96
--- NOTE | 2024-12-16 12:25 | MHC.CM.PN ---
Patient with abdominal pain is tolerating diet. She has been seen by GI. Outpatient follow up planned. DP Home with resumption of [facility] services. She has arranged for private transport. She continues with IV pain medication at this time.
--- NOTE | 2024-12-16 13:02 | PM.EVENT ---
Event Note Date of Service: 12/16/24 Event Note: She feels that she isn't ready to be discharged she says that she has this vague chest pain on the lower sternal area radiating to the right side as well as the left side She says that she does not have any abdominal pain She is insisting on a CAT scan of her chest We will order for this Otherwise tolerating diet Clinically looks well Time Spent With Patient Time: Total time managing care of this patient today ____ minutes.
[2024-12-16] MEDS: iohexoL 350 MG/ML 100 ML INFUS..BTL IV (14:22)
[2024-12-16 15:53] VITALS: BP 134/59; PULSE 86; RESP 20; TEMP 36.6; O2SAT 96
[2024-12-16] MEDS: 0.9 % Sodium Chloride Flush 3 ML SYRINGE IVFLUSH ×2 (16:06→22:43)
[2024-12-16] MEDS: Albuterol Sulfate 90 MCG 8 GM INHALER 2 PUFF INHALE ×2 (18:19→22:50)
[2024-12-16] MEDS: diazePAM 10 MG/2 ML CARTRIDGE 2.5 MG IVPUSH ×2 (18:26→22:50)
[2024-12-16 19:09] VITALS: BP 109/71; PULSE 89; RESP 18; TEMP 36.3; O2SAT 96
[2024-12-17] VITALS: BP 118/75; PULSE 90; RESP 18; TEMP 36.3; O2SAT 94
[2024-12-17] MEDS: Albuterol Sulfate 90 MCG 8 GM INHALER 2 PUFF INHALE ×3 (03:30→08:04)
[2024-12-17 04:00] VITALS: BP 114/72; PULSE 88; RESP 18; TEMP 36.2; O2SAT 95
--- NOTE | 2024-12-17 08:02 | P.PNGS_ITS ---
Subjective Subjective Date of Service: 12/17/24 Interval history: No events overnight Tolerating diet Says she is okay this morning Minimal pain, described as lower chest Has BMs Physical Exam 2 Vital Signs: Vital Signs: Last Vital Signs Temp 97.1 F 12/17/24 04:00 Pulse 88 12/17/24 04:00 Resp 18 12/17/24 04:00 BP 114/72 12/17/24 04:00 Pulse Ox 95 12/17/24 04:00 O2 Del Method Room Air 12/17/24 04:00 BMI result Body Mass Index 26.0 Const: Other: Looks well General: comfortable and no acute distress Resp: Effort & Inspection: normal respiratory effort Cardio: Rate: regular rate GI: Palpation (GI): Soft to palpation, not firm, nontender and no guarding Objective Data Active Medications Acetaminophen (Acetaminophen 325 Mg Tablet) 650 mg PO Q6H PRN PRN Reason: Pain, Mild 1-3,fever,headache Albuterol Sulfate (Albuterol Sulfate 90 Mcg 8 Gm Inhaler) 2 puff INHALE TID [facility] Albuterol/Ipratropium (Albuterol/Iprat 2.5/0.5mg 3 Ml Ampul.Neb) 3 ml INHALE RQ4H WHILE AWAKE PRN PRN Reason: Shortness of Breath/Wheezing Last Admin: 12/12/24 14:07 Dose: 3 ml Documented By: BEATRIZ Albuterol/Ipratropium (Albuterol/Iprat 2.5/0.5mg 3 Ml Ampul.Neb) 3 ml INHALE Q6H PRN PRN Reason: Wheezing Diazepam (Diazepam 10 Mg/2 Ml Cartridge) 2.5 mg IVPUSH Q4H PRN PRN Reason: Anxiety Last Admin: 12/16/24 22:50 Dose: 2.5 mg Documented By: YAAKOV Dicyclomine HCl (Dicyclomine Hcl 10 Mg Capsule) 10 mg PO TIDAC FRANCISCO Last Admin: 12/16/24 16:06 Dose: 10 mg Documented By: ROSALBA Fluticasone Propionate (Fluticasone Propionate Nasal 16 Gm [place]) 2 spray NOSTRIL-B DAILY PRN PRN Reason: Allergic Symptoms Lidocaine (Lidocaine 4 % Patch Adh..Patch) 1 patch TRANSDERMA DAILY PRN PRN Reason: Pain Lorazepam (Lorazepam 1 Mg Tablet) 1 mg PO BEDTIME PRN PRN Reason: Anxiety Last Admin: 12/15/24 20:01 Dose: 1 mg Documented By: OLEGARIO Melatonin (Melatonin 3 Mg Tablet) 6 mg PO BEDTIME PRN PRN Reason: Insomnia Morphine Sulfate (Morphine Sulfate 2 Mg/Ml Cartridge) 2 mg IVPUSH Q4H PRN; Protocol PRN Reason: Pain, Severe (Pain Scale 7-10) Last Admin: 12/17/24 03:30 Dose: 2 mg Documented By: YAAKOV Non-Formulary Medication (Mesalamine) 1,000 mg SC BEDTIME [facility] Omeprazole (Omeprazole 20 Mg Capsule.Dr) 20 mg PO BID@0630,1630 [facility] Last Admin: 12/17/24 05:30 Dose: 20 mg Documented By: YAAKOV Ondansetron HCl (Ondansetron Hcl 4 Mg/2 Ml Vial) 4 mg IVPUSH RQ6H PRN PRN Reason: Nausea and Vomiting Last Admin: 12/15/24 08:18 Dose: 4 mg Documented By: EDWIN Oxycodone HCl (Oxycodone Hcl Immed Release 5 Mg Tablet) 5 mg PO Q4H PRN PRN Reason: Pain, Moderate(Pain Scale 4-6) Last Admin: 12/16/24 07:16 Dose: 5 mg Documented By: ANNETTE Polyethylene Glycol (Polyethylene Glycol 3350 17 Gm Powd.Pack) 17 gm PO DAILY [facility] Last Admin: 12/16/24 07:16 Dose: 17 gm Documented By: ANNETTE Prochlorperazine Edisylate (Prochlorperazine Edisylate 10 Mg/2 Ml Vial) 5 mg IVPUSH Q6H PRN PRN Reason: Nausea and Vomiting Last Admin: 12/15/24 12:35 Dose: 5 mg Documented By: EDWIN Sodium Chloride (0.9 % Sodium Chloride Flush 3 Ml Syringe) 3 ml IVFLUSH QSHIFT [facility] Last Admin: 12/16/24 22:43 Dose: 3 ml Documented By: YAAKOV Tiotropium Saline (Tiotropium Saline 2.5 Mcg 1 Puff/2.5 Mcg Mist.Inhal) 2 puff INHALE TID [facility] Labs 12/15/24 05:35 12/13/24 16:01 Procedures Date of Service Date of Service: 12/17/24 Progress Note: A&P Assessment and plan (1) Abdominal pain: Status: Acute Assessment and Plan: Tolerating diet well Denies any abdominal pain currently CT of the chest done yesterday patient says that her pain is on the sternal area - shows [id number] pulmonary fibrosis Patient has had this diagnosis and is being followed by Dr. Loja she says she is ready to be discharged today I instructed her to make sure that she has a follow up with pulmonology as well as GI Chest pain not cardiac She looks well overall Time Spent With Patient Time: Total time managing care of this patient today ____ minutes. Quality Stroke Does the patient have a stroke diagnosis?: No VTE Prior VTE?: No VTE Risk Level:: Surgical - low VTE Device Contraindication: N/A - Device Ordered VTE Drug Contraindication: N/A - Med Ordered
[2024-12-17 08:04] VITALS: PULSE 88; RESP 17; O2SAT 95
[2024-12-17] MEDS: 0.9 % Sodium Chloride Flush 3 ML SYRINGE IVFLUSH (08:24)
[2024-12-17 08:27] VITALS: BP 102/68; PULSE 80; RESP 15; TEMP 36.8; O2SAT 96
--- NOTE | 2024-12-17 09:56 | MHC.CM.PN ---
Addendum entered by Mellissa Abbott 12/17/24 09:58: [facility] will resume services. Original Note: IMM 12/17/24 Patient discharged to home self care. She has arranged for private transport home.
[2024-12-17] MEDS: Morphine Sulfate Immed Release 15 MG TABLET PO (11:49)
[2024-12-17 12:00] VITALS: BP 110/65; PULSE 82; RESP 18; TEMP 36.7; O2SAT 96
--- NOTE | 2024-12-17 12:36 | PM.DS ---
DS: Providers Provider Date of Service: 12/17/24 Date of admission: 12/12/24 04:20 Date of discharge: 12/17/24 Primary care physician: Catie Isabel CNP Attending physician on admission: Cindy Rainey Consults: 12/12/24 04:25 Consult to Hospitalist Routine Comment: [place]ing [place] [facility] Reason For Exam: med management 12/14/24 22:54 Consult to Gastroenterology Routine Consulting Provider[place] [facility] Reason for consultation: Bright red blood with clots per rectum Attending physician on discharge: Antonio Jean-Baptiste DS: Diagnosis Discharge Diagnosis (1) Abdominal pain: Status: Acute DS: Summary Hospital Course Hospital Course: HPI AT ADMISSION: 74 yo female with PMH COPD/moderate persistent asthma, she is being evaluated for stem cell transplant, radiation proctitis, colon cancer, hemochromatosis, UTI, vaginal cancer, history of small-bowel obstruction. She came into the ER today complaining of abdominal pain more right upper quadrant with some nausea no vomiting - she had been having bowel movements and passing gas but here CT scan of her abdomen and plevis showed distended small bowel consistent with low grade SBO- pt says this feels a litel like her previous episodes which have resolved with conservative care but at the same time different. Not as nauseated more pain - she has had her GB out in the past. Since admission she has passed gas and stool and denies nausea. HOSPITAL COURSE: She was admitted to the surgical service for further treatment of her abdominal pain. She felt too uncomfortable to go home so she was admitted with plan for conservative treatment. Her abdomen was benign. Medicine was consulted for management of her medical comorbidities. She had some improvement in her symptoms however had persistent upper abdominal/RUQ pain that spread to her back. Her clinical picture was very unclear. She was continued on a bowel regimen. MRCP was obtained due to her dilated biliary ducts which showed several pancreatic cysts and MRCP with IV contrast for further evaluation was recommended. She also had small amount of clots per rectum. Her H/H remained stable. 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 They also recommended dicyclomine TID with meals for possible sphincter of oddi dysfunction, type 1. She was advanced to a solid diet which she was tolerating without worsening pain however she still had pain and refused to go home and said it was more in her chest. Chest CT was therefore obtained which showed moderate to severe pulmonary fibrosis without any acute pathology. She was reassured by this. She was reassessed later in the day and was discharged to home on 12/17/24. She is to follow up with her GI provider, brush material preparer and PCP. She needs MRI with IV contrast to further evaluate her pancreatic cysts. She was discharged on new meds of protcofoam AL daily and dicyclomine 10mg PO TID with meals. Status at Discharge Functional status at discharge: independent ambulation Overall status at discharge: patient is progressing back to baseline Time Attestation Discharge Coordination Time (in mins): 45 Quality: Safe Use of Opioids Does Pt have an Active Cancer Diagnosis on the Problem List?: No Quality: Stroke Does the patient have a stroke diagnosis?: No Physical Exam Vital Signs: Vital Signs: Last Vital Signs Temp 98.0 F 12/17/24 14:30 Pulse 83 12/17/24 14:30 Resp 20 12/17/24 14:30 BP 107/73 12/17/24 14:30 Pulse Ox 96 12/17/24 14:30 O2 Del Method Room Air 12/17/24 14:30 BMI result Body Mass Index 26.0 DS: Data Data Completed and Pending Completed studies during hospitalization [Text1]: Procedures Control Bleeding in Gastrointestinal Tract, Via Natural or Artificial Opening Endoscopic (02/13/24) Destruction of Rectum, Via Natural or Artificial Opening Endoscopic (02/13/24) Excision of Duodenum, Via Natural or Artificial Opening Endoscopic, Diagnostic (02/13/24) Excision of Stomach, Pylorus, Via Natural or Artificial Opening Endoscopic, Diagnostic (02/13/24) Discharge Plan Discharge Anticipated Discharge Date/Time: 12/15/24 13:51 Patient Disposition: Home, Self-Care Discharge Diagnosis: sbo, rectal bleeding, pancreatic cysts, sphincter of oddi dysfunction Referrals: Catie Isabel CNP [Primary Care Provider, Family Practice] - 1 Week Referral Note: Several pancreatic cysts, largest measuring 7 x 7 x 11 mm in the head of the pancreas, new from previous MRI exams, 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 Recommend follow up with MRI with IV contrast. Discharge Medications: New pramoxine [Proctofoam] 1 % foam 1 appl AL DAILY Qty: 15 0RF dicyclomine 10 mg capsule 10 mg PO TID Qty: 90 0RF Continued albuterol sulfate [Ventolin HFA] 90 mcg/actuation HFA aerosol inhaler 2 puff inhalation Q4H PRN (Reason: shortness of breath or wheezing) Qty: 18 4RF multivitamin Tablet 1 tab PO DAILY mesalamine 1,000 mg suppository 1,000 mg AL BEDTIME pantoprazole 40 mg tablet,delayed release (DR/EC) 40 mg PO BID@0630,1630 hydrocodone-acetaminophen 5-325 mg tablet 0.5 tab PO DAILY PRN (Reason: severe pain) lorazepam 1 mg tablet 1 mg PO BEDTIME PRN (Reason: Anxiety) polyethylene glycol 3350 17 gram Powder In Packet 17 g PO DAILY PRN (Reason: Constipation) Qty: 30 0RF Incruse Ellipta 62.5 mcg/actuation blister with device 1 inh INHALATION DAILY PRN (Reason: Shortness Of Breath) cholecalciferol (vitamin D3) 125 mcg (5,000 unit) capsule 125 mcg PO DAILY ipratropium-albuterol 0.5 mg-3 mg(2.5 mg base)/3 mL solution for nebulization 3 ml inhalation Q6H PRN (Reason: wheezing) fluticasone propionate 50 mcg/actuation spray,suspension 2 spray intranasal DAILY PRN (Reason: Allergic Symptoms) lidocaine [Lidoderm] 5 % adhesive patch,medicated 1 patch topical DAILY PRN (Reason: Pain) Qty: 30 2RF Rx Instructions: leave on most painful area for up to 12 hours Discharge Orders: Discharge Order (Routine); Ordered 12/17/24 Ordered By: Vaishali Rodriguez Diet: Advance to usual diet Activity on Discharge: As tolerated Stand Alone Forms: Patient Portal Discharge page Print Language: Pashto Activity Restrictions/Additional Instructions: Follow up with your PCP and brush material preparer. You will need to schedule an outpatient MRI with IV contrast to further evaluate your pancreatic cysts. Follow up with your secretary. New medications: Proctofoam once daily. Dicyclomine 10mg PO three times a day with meals. Call Your Doctor If: ? ? -Your temperature exceeds 101.5? F? ? ? -You experience excessive pain or swelling ? ? -You have an unexpected reaction to medication ? ? -You experience continued vomiting/nausea Care Plan Goals: Return to baseline health and resume normal activities. Health Concerns: SBO radiation procitis history of colon CA GERD sphincter of oddi dysfunction, type 1 Plan of Treatment: Diet as tolerated Proctofoam AL once daily and dicyclomine orally three times a day, f/u with GI provider Follow up with brush material preparer Follow up with PCP regarding MRI with IV contrast Assessment: Improved Discharge Date/Time: 12/17/24 14:32
[2024-12-17 14:30] VITALS: BP 107/73; PULSE 83; RESP 20; TEMP 36.7; O2SAT 96
== END 2024-12-17 14:32 | disposition home or self-care (01) | DRG 394 ==
LOC: HO.ED 12-12 04:21 → HO.EDOVER 12-12 04:26 → HO.S3 12-12 07:45
PROVIDERS: Hospitalist; Nurse Practitioner Family; Surgery; Admitting Provider Surgery; Emergency Provider Emergency Medicine; PCP Nurse Practitioner Primary Care; Visit Provider Surgery
DX: K62.7 Radiation proctitis (principal); K62.5 Hemorrhage of anus and rectum; K86.2 Cyst of pancreas; J47.9 Bronchiectasis, uncomplicated; K83.8 Other specified diseases of biliary tract; J84.10 Pulmonary fibrosis, unspecified; Y84.2 Radiological procedure and radiotherapy as the cause of abnormal reaction of the patient, or of later complication, without mention of misadventure at the time of the procedure; J45.40 Moderate persistent asthma, uncomplicated; K21.9 Gastro-esophageal reflux disease without esophagitis; F41.9 Anxiety disorder, unspecified; Z85.038 Personal history of other malignant neoplasm of large intestine; Z85.44 Personal history of malignant neoplasm of other female genital organs; Z79.899 Other long term (current) drug therapy
CPT/HCPCS: 36415; 71260; 74177; 74181; 80053; 81001; 82010; 82150; 83605; 83690; 83735; 84443; 84484; 85025; 85027; 93005; 94640; 94664; 99285; J0737; J1171; J2270; J2405; J2470; J3360; Q9967

== ENCOUNTER → 2024-12-11 20:11 | Outpatient (BNV) | payer MEDICARE, MEDICAID, SELFPAY | PROVIDERS: Admitting Provider Surgery; Emergency Provider Emergency Medicine; PCP Nurse Practitioner Primary Care; Visit Provider Internal Medicine | DX: R00.0 Tachycardia, unspecified (principal) | CPT/HCPCS: 93010 ==

== ENCOUNTER → 2024-12-12 00:31 | Outpatient (BNV) | payer MEDICARE, MEDICAID, SELFPAY | PROVIDERS: Emergency Provider Emergency Medicine; PCP Nurse Practitioner Primary Care; Visit Provider Radiology Diagnostic Radiology | DX: R10.31 Right lower quadrant pain (principal); R10.32 Left lower quadrant pain; K62.89 Other specified diseases of anus and rectum | CPT/HCPCS: 74177 ==

== ENCOUNTER 2024-12-12 04:20 | Outpatient (BNV) | payer MEDICARE, MEDICAID, SELFPAY | END 2024-12-16 14:18 | PROVIDERS: Admitting Provider Surgery; Emergency Provider Emergency Medicine; PCP Nurse Practitioner Primary Care; Visit Provider Radiology Diagnostic Radiology | DX: R06.00 Dyspnea, unspecified (principal) | CPT/HCPCS: 71260 ==

== ENCOUNTER 2024-12-12 04:20 | Outpatient (BNV) | payer MEDICARE, MEDICAID, SELFPAY | END 2024-12-14 14:30 | PROVIDERS: Admitting Provider Surgery; Emergency Provider Emergency Medicine; PCP Nurse Practitioner Primary Care; Visit Provider Radiology Diagnostic Radiology | DX: K83.8 Other specified diseases of biliary tract (principal); K86.2 Cyst of pancreas | CPT/HCPCS: 74181 ==

== ENCOUNTER → 2024-12-12 04:20 | Outpatient (BNV) | payer MEDICARE, MEDICAID, SELFPAY | PROVIDERS: Admitting Provider Surgery; Emergency Provider Emergency Medicine; PCP Nurse Practitioner Primary Care; Visit Provider Internal Medicine Gastroenterology | DX: K62.7 Radiation proctitis (principal) | CPT/HCPCS: 99223 ==

== ENCOUNTER → 2024-12-12 04:20 | Outpatient (BNV) | payer MEDICARE, MEDICAID, SELFPAY | PROVIDERS: Admitting Provider Surgery; Emergency Provider Emergency Medicine; PCP Nurse Practitioner Primary Care; Visit Provider Surgery | DX: R10.13 Epigastric pain (principal) | CPT/HCPCS: 99222; 99231; 99232; 99499 ==

== ENCOUNTER → 2024-12-12 04:20 | Outpatient (BNV) | payer MEDICARE, MEDICAID, SELFPAY | PROVIDERS: Admitting Provider Surgery; Emergency Provider Emergency Medicine; PCP Nurse Practitioner Primary Care; Visit Provider Nurse Practitioner Family | DX: K56.609 Unspecified intestinal obstruction, unspecified as to partial versus complete obstruction (principal) | CPT/HCPCS: 99223; 99233 ==

== ENCOUNTER 2025-01-19 15:35 | Outpatient (AMB) | payer MEDICARE, MEDICAID, SELFPAY ==
--- NOTE | 2025-01-19 15:51 | MHC.OFFVIS ---
Vital Signs 01/19/25 15:52 Height 5 ft 2 in Weight 144 lb 6.444 oz BMI 26.4 BP 110/70 Blood Pressure Location Lt brachial Position Sitting Pulse 110 H Pulse Source Pulse Oximeter Pulse Oximetry (%) 94 Oxygen Delivery Method Room Air Intake Visit Reasons: short of breath Intake Note: pt is here for sick visit, and she states she just cannot breath, mucous in chest, she feels lousy, a lot going on. Heel Scourer Required: No Timber Management Specialist: Timber Management Specialist offered & declined Allergies ciprofloxacin (From Cipro) Adverse Reaction (Intermediate, Verified 01/19/25 16:34) Facial redness, lip swelling Medication List - Last Reconciled 01/19/25 by Vane Loja MD albuterol sulfate 90 mcg/actuation (Ventolin HFA) 2 puffs inhalation Q4H PRN cholecalciferol (vitamin D3) 125 mcg PO DAILY dicyclomine 10 mg PO TID fluticasone propionate 50 mcg/actuation 2 sprays intranasal DAILY PRN hydrocodone-acetaminophen 5-325 mg 0.5 tabs PO DAILY PRN ipratropium-albuterol 0.5 mg-3 mg(2.5 mg base)/3 mL 3 mL inhalation Q6H PRN lidocaine 5% (Lidoderm) 1 patch topical DAILY PRN lorazepam 1 mg PO BEDTIME PRN mesalamine 1,000 mg NV BEDTIME multivitamin 1 tab PO DAILY pantoprazole 40 mg PO BID@0630,1630 polyethylene glycol 3350 17 grams PO DAILY PRN pramoxine 1% (Proctofoam) 1 appl NV DAILY umeclidinium 62.5 mcg/actuation (Incruse Ellipta) 1 inh inhalation DAILY PRN Do you need a note to return to daycare/school/sports/work: No HPI HPI short of breath: Details: ENDER IS 74 YEARS OLD FEMALE, COMES FOR ROUTINE FOLLOW-UP, BUT BEFORE THIS HAS BEEN IN THE HOSPITAL FOR HER GI PROBLEMS AND DIAGNOSED TO HAVE CIRRHOSIS OF THE LIVER. SHE HAD CTA WELL PLAIN CT SCAN OF THE CHEST DURING HER RECENT HOSPITALIZATION. SHE HAS EXTENSIVE PULMONARY FIBROSIS WITH PERIPHERAL HONEYCOMBING AND ALSO TRACTION BRONCHIECTASIS. PREVIOUSLY HE HAS BEEN USING ALBUTEROL HFA 2 PUFFS Q 6 HOURS P.R.N. AND SHE ALSO HAS IPRATROPIUM-ALBUTEROL SOLUTION WHICH SHE USES IN THE NEBULIZER 2 TO 3 TIMES A DAY SHE COMPLAINS OF INCREASED AMOUNT OF COUGH WITH EXPECTORATION. NOW HER SHORTNESS OF BREATH IS WORSE WHEN SHE WALKS AROUND. SHE HAS NOT USED OXYGEN AT HOME . SINCE HER DISCHARGE FROM THE HOSPITAL SHE RESEARCHED ONLINE ABOUT LIVER FIBROSIS WELL LUNG FIBROSIS. SHE FOUND THAT 1 COMPANY IN [place] DOES STEM THERAPY WITH UMBILICAL CORD BLOOD. SHE ASKED THEM TO SEND 1 SUPPLY WHY A UPS. AND WENT TO A CLINIC IN [place] WHERE SHE HAD THE BLOOD SAMPLE INJECTED SO FAR SHE HAS NOT NOTICED ANY BIG DIFFERENCE BUT SHE WAS TOLD THAT SHE HAS TO WAIT FOR 2-3 MONTHS TO SEE THE DIFFERENCE. SHE COMPLAINS OF GETTING SHORT OF BREATH ON WALKING SHORT DISTANCE WHICH IS WORSE THAN BEFORE . AND THUS WE PLAN TO DO A 6 MINUTES WALK TEST. [facility] Medical History Exercise hypoxemia Abdominal pain Fibrosing alveolitis Interstitial lung disease SBO (small bowel obstruction) Syncope Abdominal pain Bronchiectasis Shoulder pain, bilateral UTI (urinary tract infection) Arthralgia Dizziness Dysuria Acute sinusitis Periumbilical abdominal pain Flank pain Left flank pain Annual physical exam IBS (irritable bowel syndrome) Gastritis Cough Fatigue Scabies Post covid-19 condition, unspecified Elevated LFTs Diarrhea Sinusitis Bronchitis Well woman exam COPD (chronic obstructive pulmonary disease) Radiation proctitis Radiation enteritis Postmenopausal bleeding History of colon cancer Rectal bleeding Asthma Vertigo Seasonal allergies Hyperglycemia Palpitation Hemochromatosis Tubular adenoma Colon cancer Vaginal cancer Surgical History History of cholecystectomy History of esophagogastroduodenoscopy (EGD) H/O colonoscopy H/O colectomy Family History Father Dementia GSW (gunshot wound) CAD (coronary artery disease) Mother GSW (gunshot wound) Family/Other Diabetes mellitus Brother CAD (coronary artery disease) Sister Multiple sclerosis Sister Rheumatoid arthritis Sister Rheumatoid arthritis Social History Household Members: None Household Members Other:: aunt a 96 years old Housing: House Are you a primary pharmacy customer care specialist to a significant other at home: No Do you presently have visiting nurse or other home services: No Alcohol intake: never Comment: pt refuses Patient Tobacco Use Status: Never used Tobacco e-Cigarette/Vaping Use: Never Used Second Hand Smoke Exposure: No Advance Directives Date on File: 04/09/22 service: No Current occupational status: unemployed Sexual orientation: Straight/Heterosexual Gender identity: Female Review of Systems Const All systems reviewed & are unremarkable except as noted in HPI and below Eyes Reports no additional complaints ENT Reports nasal congestion (Mild intermittent) Card Denies chest pain, Denies irregular heart rhythm and Denies leg edema Resp Reports as per HPI GI Reports no additional complaints Reports no additional complaints Musc Reports no additional complaints Skin/Breast Reports system reviewed and no additional complaints, except as documented Neuro Reports no additional complaints Psych Reports no additional complaints Endo Reports no additional complaints Physical Exam Vital Signs: Last Vital Signs Pulse 110 H 01/19/25 15:52 BP 110/70 01/19/25 15:52 Pulse Ox 94 01/19/25 15:52 Oxygen Delivery Method Room Air 01/19/25 15:52 BMI result Body Mass Index 26.4 Const General: comfortable, no acute distress, alert and awake Orientation/consciousness: patient oriented x3 HEENT Head: Yes normal to inspection General nose exam: No nasal polyps present and Other nasal findings present (MODERATE NASAL CONGESTION, SHE HAS COPIOUS POSTERIOR PHARYNGEAL MUCOUS) Face and sinus: Yes sinuses nontender Mouth: oropharynx normal Throat: No posterior oropharynx normal (HAS LOT OF MUCUS IN THE POSTERIOR PHARYNX.) Eyes General: appearance normal, both eyes and all related structures Neck Neck: Yes normal visual inspection, Yes no lymphadenopathy, Yes trachea midline and Yes no JVD Thyroid: Thyroid normal Chest Chest palpation & inspection: normal inspection of the chest, normal palpation of entire chest wall and no tenderness Resp Other: Percussion note resonant, breath sounds are slightly distant. No wheezes but she does have a inspiratory crackles over the lower lobes on both sides . Cardio Palpation: normal PMI Rate: regular rate Rhythm: regular rhythm Heart sounds: no gallops and no murmurs Peripheral pulses: Peripheral pulses 2+ throughout GI Palpation (GI): Soft to palpation, nontender, No hepatosplenomegaly present and no masses Auscultation: normal bowel sounds Back/Spine/Pelvis Thoracic/Lumbar Spine: thoracic and lumbar spine normal to inspection Skin General skin exam: no rashes or lesions noted Neuro General: patient oriented x3 and no focal motor deficits Cranial nerves: Yes CN's II-XII intact bilaterally Extrem General: Yes normal to inspection, Yes no clubbing, cyanosis or edema and Yes no calf tenderness Psych Appearance: grossly normal and well kempt Speech and movement: Normal speech and movement present Affect: Anxious affect present Office Procedures 6 Minute Walk Time:: 16:30 SPO2 % at rest: 95 Pulse at rest: 93 SPO2 % during excercise: 88 Pulse during excercise: 120 SPO2 % after excercise: 95 Pulse after excercise: 113 Distance in yards walked: 320 Supplemental Oxygen: 2 l Performance Observations:: pt. walked on ra, spo2 decreased to 88% with an increase in h.r. of 120, also increase in coughing. placed on 2 l oxygen spo2 stayed at 95-96%, hr 110-113, [place]. [address] - 6 Minute Walk Spirometry Testing Spirometry Comments: esme done prior [place]uval 65651- Spirometry Results Reviewed Results Reviewed: CT SCAN OF THE CHEST FINDINGS ARE REVIEWED. SHE HAS RELATIVELY EXTENSIVE BILATERAL PULMONARY FIBROSIS WITH HONEYCOMBING, AND TRACTION BRONCHIECTASIS. CT SCAN 12/16 IMPRESSION: Moderate to severe pulmonary fibrosis. No focal airspace opacity is identified. 6 MINUTES WALK TEST, SHE DOES DESATURATE DOWN TO 88%, THEN STARTED ON OXYGEN AND SHE FELT MUCH BETTER. Assessment & Plan Assessment & Plan (1) Interstitial lung disease: Comment: Her previous chest x-ray and CT scan have shown evidence of INTERSTITIAL LUNG DISEASE WITH TRACTION BRONCHIECTASIS The CTA of the chest on 10/23 DONE when she went to emergency room, shows extensive interstitial lung disease with pattern of alveolitis. This may be due to recent respiratory infections , or progression of her previously diagnosed ILD CT SCAN OF THE CHEST ON 12/16 AGAIN SHOWS BILATERAL PULMONARY FIBROSIS WITH PERIPHERAL RETICULATION AND ALSO TRACTION BRONCHIECTASIS. Code(s): J84.9 - Interstitial pulmonary disease, unspecified Category: Medical Plan: HAD A DETAILED DISCUSSION WITH THE PATIENT. DISCUSS ABOUT THE FINDINGS ON CT SCAN OF THE CHEST. WAS STARTED IN THE BEGINNING PATTERN OF FIBROSING ALVEOLITIS, IS NOW CYDNEY PULMONARY FIBROSIS WITH HONEYCOMBING AND BRONCHIECTASIS. DISCUSSED THE TREATMENT OPTIONS, EXPLAINED TO HER ABOUT THE USE OF ANTIFIBROTIC AGENTS. * THE PATIENT TOLD ME THAT SHE AND HER SISTER HAVE ALREADY INVESTIGATED INTO STEM CELL TREATMENT, BY CONTACTING THE LUNG CENTER IN [place], SHE HAS ALREADY RECEIVED 1 TREATMENT OF UMBILICAL CORD BLOOD SAMPLE. SHE HAS BEEN TOLD THAT IT MIGHT TAKE A FEW MONTHS BEFORE SHE SEES IMPROVEMENT. I DISCUSSED WITH HER THAT SHE COULD USE STEROIDS FOR SHORT PERIOD, AND THEN IF SHE WOULD LIKE TO WE CAN START HER ON ANTIFIBROTIC AGENTS. HOWEVER SHE WANTS TO SEE WHAT KIND OF PROGRESS SHE MAKES WITH THE STEM CELL THERAPY. HER SISTER ALSO CALLED AND TALKED TO ME IN DETAIL AND SHE SEEMS TO BE MORE IN FAVOR OF STEM-CELL TREATMENT. I SAID THAT IS OKAY THEN WE WILL WAIT FOR A FEW MONTHS AND SEE HOW SHE PROGRESSES. BUT IF THERE IS NO POSITIVE OUTCOME FROM THE STEM-CELL TREATMENT THEN WE WILL PROCEED WITH ANTIFIBROTIC AGENTS (2) Bronchiectasis: Comment: She has traction bronchiectasis in the lower lobes secondary to chronic fibrotic changes . This makes her a high risk for recurrent respiratory infections. There is no evidence of active infection at this time. Code(s): J47.9 - Bronchiectasis, uncomplicated Category: Medical Plan: She may use Mucinex 600 mg b.i.d.. (3) COPD (chronic obstructive pulmonary disease): Comment: Patient does have mild to moderate chronic obstructive pulmonary disease., it was relatively stable and she has not come for follow-up during the past 1 year. Lately for the last month or so her symptoms are worse She claims to be more short of breath chest on minimal walking . I think this is probably due to progressive interstitial lung disease. Code(s): J44.9 - Chronic obstructive pulmonary disease, unspecified Category: Medical Qualifiers: COPD type: COPD with acute exacerbation Qualified Code(s): J44.1 - Chronic obstructive pulmonary disease with (acute) exacerbation Plan: She can use Ventolin HFA 2 puffs Q 6 hours prn if there is an acute distress. Also use ipratropium-albuterol solution in the nebulizer q.6 hours PRN OK to continue using Incruse Ellipta 1 inhalation daily. (4) Exercise hypoxemia: Comment: In the hospital while she was using oxygen she felt better. Now she states that her shortness of breath gets worse when she walks around. She did have 6 minutes walk and she said desaturated down to 88% on walking. She was put on oxygen supplement 2 L/minute and she felt much better. Code(s): R09.02 - Hypoxemia Category: Medical Plan: She is going to be started on O2 2 L/minute with the portable unit, and advised to use O2 with any physical activity or when she goes outdoors. Orders: Orders AMB Spirometry Testing 01/19/25 J84.9 - Interstitial pulmonary disease, unspecified AMB 6 minute walk 01/19/25 J84.9 - Interstitial pulmonary disease, unspecified Coding Level of Care Code Est Pt Level 4 (71773) Diagnoses Interstitial lung disease J84.9 Bronchiectasis J47.9 COPD (chronic obstructive pulmonary disease) J44.1 COPD type: COPD with acute exacerbation Exercise hypoxemia R09.02 CPT Codes Coding ([id number]) Spirometry - CPT: 80606- Spirometry ([id number])
[2025-01-19 15:52] VITALS: BP 110/70; PULSE 110; O2SAT 94; BMI 26.4
[2025-01-19 17:04] VITALS: PULSE 93; O2SAT 95
--- OUTSIDE RECORDS SUMMARY | 2025-01-19 17:11 | XMS_ITS | Encounter Summary ---
Author Organization [facility] Address [address] [place] [address] Care Team Providers Care Therapy Coordinator Name Role Phone Catie Isabel INSTRUMENT REPAIRER HELPER Primary Care Provider [phone] Reason for Visit * Reason Onset Date Comments Rectal Bleeding 01/18/2025 Encounter Details Date Type Department Care Team (Late Contact Info) Description 01/18/2025 Telephone Internal Medicine - [place] [address] [place] [address] Catie Isabel NP [address] [place] [address] Social History Tobacco Use Types Packs/Day Years [...] as of this encounter Progress Notes * Colette Palma LPN - 01/19/2025 11:01 AM EST Left message on voicemail. Please re-message to Triage. * Judy Oshea - 01/19/2025 10:53 AM EST Pt returned call, she said she didn't answer because it showed as spam, I instructed her to answer even if it shows spam. Please call when your available thank you * Pema Schreiber RN - 01/18/2025 3:10 PM EST [facility] to [facility]. Also to call GI clinic for triage/appt as she cancelled last appt. * Judy Oshea - 01/18/2025 2:26 PM EST Patient call requires triage: Symptoms patient is presenting: rectal bleeding/a lot pt is not feeling well at all How long has patient had these symptoms?: 2 days For ALL patients calling to schedule any [...] traveled recently to another state outside of [place], [place], [place], [place], [place], [place]? no o If yes, did you quarantine [...] of accident/Injury: No If yes, gather 3rd constitution party insurance information Third Republican Information: not applicable PCP: Catie Isabel NP Payor: MEDICARE / Plan: MEDICARE PART A & B / Product Type: Medicare / documented in this encounter Plan of Treatment Upcoming Encounters Date Type Department Care Team (Late st Contact Info) Description 01/25/2025 12:45 PM EST Ancillary Procedure Pulmonology - [place] [address] [facility] [address] [place] [address] 01/28/2025 2:45 PM EST Office Visit Pulmonology [facility] [address] [facility] [address] [place] [address] Marisa Viveros MD [address] [place] [address] [phone] documented as of this encounter Visit Diagnoses Not on filedocumented in this encounter Additional Health Concerns Assessment Noted Time PHQ-9 Depression Total Score: 0 01/16/20 2:37 PM EST A fall risk assessment has been complete d for the patient 01/16/2024 2:32 PM EST documented as of this encounter Care Teams Therapy Coordinator Relationship Specialty Start Date End Date Catie Isabel NP [address] [place] [address] PCP - General 09/30/23 documented as of this encounter
--- OUTSIDE RECORDS SUMMARY | 2025-01-19 17:11 | XMS_ITS | Encounter Summary ---
Author Organization [facility] Address [address] [facility] [address] [place] [address] Phone Care Team Providers Care Portable Machine Cutter Name Role Phone Catie Isabel TRUCKSMITH Primary Care Provider [phone] Encounter Details Date Type Department Care Team (Late st Contact Info) Description 05/14/2024 Procedure Pass [facility] Emergency Imaging, Main [address] [place] [address] Social History Tobacco Use Types Packs/Day Years [...] documented as of this encounter Care Teams Portable Machine Cutter Relationship Specialty Start Date End Date Catie Isabel NP [address] [place] [address] PCP - General Nurse Practitioner 02/22/24 documented as of this encounter Additional Source Comments The information contained in this document represents components of the legal health record. It is not the complete legal health record.[facility]
--- OUTSIDE RECORDS SUMMARY | 2025-01-19 17:11 | XMS_ITS | Encounter Summary ---
Author Organization [facility] Address [address] [facility] [address] [phone] Phone Care Team Providers Care Relations Mgr Name Role Phone Catie Isabel RECORDAK OPERATOR Primary Care Provider [phone] Encounter Details Date Type Department Care Team (Late st Contact Info) Description 04/28/2024 Procedure Pass [facility], Ct Scan - [address] [address] Social History Tobacco Use Types Packs/Day Years [...] 04/28/2024 1:10 PM Laila Booker RN * [place] Suicide Severity Rating Scale (Screener/Recent Self-Report) Question [...] documented as of this encounter Care Teams Relations Mgr Relationship Specialty Start Date End Date Catie Isabel NP [address] [facility] [place] [address] PCP - General Nurse Practitioner 02/22/24 documented as of this encounter Additional Source Comments The information contained in this document represents components of the legal health record. It is not the complete legal health record.[facility]
--- OUTSIDE RECORDS SUMMARY | 2025-01-19 17:11 | XMS_ITS | Encounter Summary ---
Author Organization [facility] Address [address] [place] [address] Phone Care Team Providers Care Customer Success Intern Name Role Phone Catie Isabel FARMWORKER CRANBERRY Primary Care Provider [phone] Encounter Details Date Type Department Care Team (Late st Contact Info) Description 04/17/2024 Procedure Pass [facility] Endoscopy Admitting Dept Virtual Department [address] [place] [address] Social History Tobacco Use Types Packs/Day Years [...] documented as of this encounter Care Teams Customer Success Intern Relationship Specialty Start Date End Date Catie Isabel NP [address] [place] [address] PCP - General Nurse Practitioner 02/22/24 documented as of this encounter Additional Source Comments The information contained in this document represents components of the legal health record. It is not the complete legal health record.[facility]
--- OUTSIDE RECORDS SUMMARY | 2025-01-19 17:11 | XMS_ITS | Encounter Summary ---
Author Organization [facility] Address [address] [facility] [address] [place] [address] Phone Care Team Providers Care Food Vendor Name Role Phone Catie Isabel JUMPBASTING COLLAR BASTER Primary Care Provider [phone] Encounter Details Date Type Department Care Team (Late st Contact Info) Description 05/14/2024 Procedure Pass [facility] [address] [place] [address] Social History Tobacco Use Types Packs/Day Years [...] documented as of this encounter Care Teams Food Vendor Relationship Specialty Start Date End Date Catie Isabel NP [address] [place] [address] PCP - General Nurse Practitioner 02/22/24 documented as of this encounter Additional Source Comments The information contained in this document represents components of the legal health record. It is not the complete legal health record.[facility]
--- OUTSIDE RECORDS SUMMARY | 2025-01-19 17:11 | XMS_ITS | Encounter Summary ---
Author Organization [facility] Address [address] [place] [phone] Care Team Providers Care Soldering Machine Tender Name Role Phone Nile Rodarte DO Primary Care Provider [phone] Encounter Details Date Type Department Care Team (Late st Contact Info) Description 05/16/2015 Scanned Document Orthopa[facility]ics [facility] at [address] [address] Stuart Tracy MD [address] [place] [address] Social History Tobacco Use Types Packs/Day Years [...] Tracy MD IMG SCAN REPORTS Final Result [facility] [place], [place], [facility] documented in this encounter Visit Diagnoses Not on filedocumented in this encounter Care Teams Soldering Machine Tender Relationship Specialty Start Date End Date Nile Rodarte DO PCP - General Internal Medicine 04/12/15 documented as of this encounter
--- OUTSIDE RECORDS SUMMARY | 2025-01-19 17:11 | XMS_ITS | Clinical Summary ---
Author Organization [place] [address] Matthew [facility] Address [address] [place], [place] [address] [address] Phone Care Team Providers Care Electronic Controls Repairer Supervisor Name Role Phone Caite Isabel NP Primary Care Provider [phone] Allergies Active Allergy Reactions Criticality Noted Date Comments Diatrizoate Rebeka-Diatrizoat Sod Other 05/22 unresponsive Medications Ventolin HFA 90 mcg/actuation inhaler Inhale 2 puffs by mouth 1 (one) time each day. 6.7 g 3 025 Active fluticasone furoate-vilantero L (Breo Ellipta) 200-25 mcg/dose inhalerIndication s:Chronic bronchitis, unspecified chronic bronchitis type (CMS/[facility] V24, CMS/[facility] V28) Inhale 1 puff by mouth 1 (one) time each day. 3 each 3 025 2025 Active ondansetron ODT (ZOFRAN-ODT) 4 mg disintegrating tabletIndications :SBO (small bowel obstruction) (CMS/HCC V24, CMS/[facility] V28) Dissolve 1 tablet (4 mg total) on top of the tongue every 8 (eight) hours if needed for nausea or vomiting. 20 tablet 025 Active ipratropium-albut Jarad (DUONEB) 0.5-2.5 mg/3 mL nebulizer solution TAKE 3 ML BY NEBULIZER EVERY 6 HOURS NEEDED FOR WHEEZE 360 mL 11 07/02/2 025 Active gabapentin (NEURONTIN) 300 mg capsule Take 1 capsule (300 mg total) by mouth 3 (three) times a day if needed (back pain). Active umeclidinium (Incruse Ellipta) 62.5 mcg/actuation inhalation Inhale 1 puff by mouth 1 (one) time each day. 1 each 2 025 2024 Active castor oiL 100 % Take by mouth 1 (one) time each day if needed for constipation. Active pantoprazole (PROTONIX) 40 mg EC tablet Take 1 tablet (40 mg total) by mouth. Active LORazepam (ATIVAN) 1 mg tablet Take 1 tablet (1 mg total) by mouth 2 (two) times a day if needed for anxiety for up to 28 days. Max Daily Amount: 2 mg 56 tablet Active predniSONE (DELTASONE) 10 mg tablet PLEASE SEE ATTACHED FOR DETAILED DIRECTIONS Active doxycycline hyclate (VIBRA-TABS) 100 mg tablet TAKE 1 TABLET BY MOUTH EVERY DAY FOR ALVEOLITIS FOR 10 DAYS Active Gavilax 17 gram/dose oral powder take 17 grams by mouth once every day Active fluticasone propionate (FLONASE) 50 mcg/actuation nasal spray SPRAY 2 SPRAYS INTO EACH NOSTRIL EVERY DAY SHAKE GENTLY. CLEAN TIP AND REPLACE CAP AFTER USE. 48 mL 1 Active mesalamine (CANASA) 1,000 mg suppository INSERT 1 SUPPOSITORY (1,000 MG TOTAL) INTO THE RECTUM AT BEDTIME. USE DIRECTED 90 suppository Active oxyCODONE (ROXICODONE) 5 mg immediate release tablet Take 1 tablet (5 mg total) by mouth 2 (two) times a day if needed for severe pain. Max Daily Amount: 10 mg 56 tablet Active mesalamine (CANASA) 1,000 mg suppository Insert 1 suppository (1,000 mg total) into the rectum at bedtime. Use as directed 90 suppository 025 2024 Discontinued HYDROcodone-aceta minophen (NORCO) 5-325 mg per tabletIndications :Primary osteoarthritis involving multiple joints Take 1 tablet by mouth 2 (two) times a day if needed for severe pain for up to 28 days. Max Daily Amount: 2 tablets 56 tablet 025 2024 oxyCODONE (ROXICODONE) 5 mg immediate release tablet Take 1 tablet (5 mg total) by mouth 2 (two) times a day if needed for severe pain. Max Daily Amount: 10 mg 56 tablet 025 2024 Discontinued Active Problems Problem Noted Date Diagnosed Date Carcinoma of vagina ([facility] V24, [facility] V28) 1 Secondary esophageal varices without bleeding ([facility] V24, [facility] V28) 12/09/2024 Portal hypertensive gastropathy ([facility] V24, [facility] V28) 12/09/2024 Bowel incontinence 09/18/2024 Pelvic pain 09/18/2024 Disorder of rotator cuff 09/18/2024 Hypovitaminosis D 09/18/2024 History of cancer of vagina 09/18/2024 Obesity 09/18/2024 Skin excoriation 09/18/2024 PMB (postmenopausal bleeding) 09/18/2024 Vaginal bleeding 09/18/2024 Vulvar itching 09/18/2024 IPMN (intraductal papillary mucinous neoplasm) 0 08/15/2024 Cirrhosis ([facility] V24, [facility] V28) 08/14/2024 Shingles 08/13/2024 Interstitial lung disease ([facility] V24, [facility] V28) 07/20/2024 Recurrent intestinal obstruction ([facility] V24, [facility] V28) 07/20/2024 Anemia 04/29/2024 Hyponatremia 02/22/2024 Primary osteoarthritis involving multiple joints 10/09/2023 Primary osteoarthritis of right shoulder 024 Anxiety 10/01/2023 Allergic rhinitis 09/24/2018 Aortic atherosclerosis ([facility] V24) 09/24/2018 Diverticulosis 09/24/2018 Elevated LFTs 09/24/2018 GERD (gastroesophageal reflux disease) 9 Hemochromatosis, hereditary ([facility] V24) 2018 Hypertension 09/24/2018 IBS [...] Encounters Date Type Department Care Team Description 01/18/2025 Telephone Internal [facility] [address] [place] [address] Catie Isabel NP 01/18/2025 Telephone Internal Medicine - [facility] [address] [place] [phone] Catie Isabel NP 01/04/2025 Telephone Internal Medicine - [facility] [address] [place] [address] Catie Isabel NP 12/18/2024 Telephone Internal Medicine - [facility] [address] [place] [address] Catie Isabel NP 12/09/2024 2:30 PM EDT Office Visit Internal Medicine - [facility] [address] [place] [phone] Catie Isabel NP Primary osteoarthritis involving multiple joints (Primary Dx); Interstitial lung disease (CMS/HCC V24, CMS/HCC V28); Recurrent intestinal obstruction (CMS/HCC V24, CMS/HCC V28); Hepatic cirrhosis, unspecified hepatic cirrhosis type, unspecified whether ascites present (CMS/HCC V24, CMS/HCC V28); History of cancer of vagina 12/02/2024 12:30 PM EDT Anesthesia Event [facility] [address] [place] [address] Phil Scanlon MD Hayes, Brett L, STEVIE 12/02/2024 11:20 AM EDT - 12/02/2024 11:59 PM EDT Hospital Encounter [facility] [address] [place] [address] Charles Steinberg MD Hayes, Brett L, SLITTER CREASER SLOTTER OPERATOR Phil Scanlon MD Abnormal CT of the abdomen Discharge Disposition: Home or Self Care 12/01/2024 Telephone Internal Medicine - [facility] [address] [place] [address] Catie Isabel NP 11/30/2024 [facility] [address] [place] [address] Catie Isabel NP 11/23/2024 Telephone Infectious Disease - [place] [address] [phone] Jenn Whiting MD 11/23/2024 Telephone Gastroenterology - [place] 175 [facility] [address] [phone] Lori Vicente NP 11/23/2024 Telephone Gastroenterology - [place] 175 [facility] [address] [phone] Lori Vicente NP 11/23/2024 [facility]phone [facility] [address] [place] [address] Catie Isabel NP 11/13/2024 Telephone Gastroenterology - [place] 175 [place] 175 [facility] [address] [place] [address] Lori Vicente NP 11/11/2024 Telephone Pulmonology - [place] 175 [facility] [address] [place] [phone] Marisa Viveros MD 11/11/2024 [facility] [address] [facility] [place] [phone] Zane Xochitl, [place] 11/06/2024 3:30 PM EDT Office Visit Pulmonology - [place] 175 [facility] [address] [place] [phone] Marisa Viveros MD Dyspnea, unspecified type (Primary Dx); Pulmonary fibrosis (CMS/HCC V24, CMS/HCC V28); Moderate persistent asthma, unspecified whether complicated from Last 3 Months Surgical History Surgery Date Site/Laterality Comments OTHER SURGICAL HISTORY 1985 PROCEDURE: SD COLECTOMY PARTIAL W/ANASTOMOSIS; COMMENT: colon cancer COLONOSCOPY 12/2014 PROCEDURE: HISTORICAL COLONOSCOPY; COMMENT: Tubular adenoma & hyperplastic polyps, Repeat 3 yrs CHOLECYSTECTOMY 1993 PROCEDURE: HISTORICAL CHOLECYSTECTOMY APPENDECTOMY PROCEDURE: HISTORICAL APPENDECTOMY UPPER GASTROINTESTINAL ENDOSCOPY 01/2018 PROCEDURE: SD UPPER GI ENDOSCOPY PERFORMED COLONOSCOPY 1997 PROCEDURE: [...] Aortic atherosclerosis (CMS/HCC V24) 09/24/2018 DX:Aortic atherosclerosis (HCC) Osteoarthritis 09/24/2018 [...] 01/25/2025 12:45 PM EST Ancillary Procedure Pulmonology [facility] 175 [facility] [address] [place] [address] 01/28/2025 2:45 PM EST Office Visit Pulmonology [facility] 175 [facility] [address] [place] [phone] Marisa Viveros MD [address] [place] [phone] Health Maintenance Due Date Last Done Comments [...] PM EDT Abnormal CT of the abdomen COMPREHENSIVE METABOLIC PANEL Routine 10/12/2024 11:56 AM EDT Liver disease HEPATITIS C ANTIBODY Routine 08/05/2024 2:25 PM EDT History of cirrhosis of liver HM COLONOSCOPY Routine 10/28/2023 from Last 3 Months or Most Recently Relevant to Health Maintenance Results * EGD Anesthesia - MAC; [facility] ENDOSCOPY (12/02/2024 12:38 PM EDT) Anatomical Region Laterality Modality Endoscopy 12/02/2024 12:2 8 PM EDT Impressions 12/02/2024 12:40 PM EDT - Grade I esophageal varices. - Portal hypertensive gastropathy. - Normal examined duodenum. - No specimens collected. Recommendation: - Continue present medications. - Repeat upper endoscopy in 1 year for surveillance. Narrative 12/02/2024 12:40 PM EDT [facility] GI Patient Name: Erin Mooney Procedure Date: [...] was normal. Procedure Code(s): --- Professional --- 75189, Esophagogastroduodenoscopy, flexible, transoral; diagnostic, including collection of [...] parts of digestive tract CPT copyright 2020 [employer]. All rights reserved. The codes documented in this report are preliminary and upon actuarial internship review may be revised to meet current compliance requirements. Charles Steinberg MD 12/02/2024 12:40:34 PM This report has been signed electronically.Charles Steinberg MD Number of Addenda: 0 Note Initiated On: 12/02/2024 12:28 PM Scope In: Scope Out: Endoscopy Department at [facility] - [address] [place] [phone] Procedure Note Charles Steinberg MD - 12/02/2024 [facility] Patient Name: Erin Mooney Procedure Date: [...] was normal. Procedure Code(s): --- Professional --- 68787, Esophagogastroduodenoscopy, flexible, transoral; diagnostic, including collection of [...] parts of digestive tract CPT copyright 2020 [employer]. All rights reserved. The codes documented in this report are preliminary and upon actuarial internship reviewmay be revised to meet current compliance requirements. Charles Steinberg MD 12/02/2024 12:40:34 PM This report has been signed electronically.Charles Steinberg MD Number of Addenda: 0 Note Initiated On: 12/02/2024 12:28 PM Scope In: Scope Out: Endoscopy Department at [facility] - [address] [place] [phone] IMPRESSION: - Grade I esophageal varices. - Portal hypertensive gastropathy. - Normal examined duodenum. - No specimens collected. Recommendation: - Continue present medications. - Repeat upper endoscopy in 1 year forsurveillance. Eliel Mejia MD GI~PROCEDURE ORDERABLES Final Re sult * (ABNORMAL) Comprehensive metabolic panel (10/12/2024 11:56 AM EDT) Sodium 138 133 - 145 mmol/L LAB CHEMISTRY METHOD 10/12/2024 4:26 PM [facility] Potassium 4.2 3.5 - 5.5 [...] 27.8 LAB CHEMISTRY METHOD 10/12/2024 4:26 PM EDT [facility] Calcium 9.2 8.5 - 10.5 mg/dL LAB CHEMISTRY METHOD 10/12/2024 4:26 PM [facility] AST (SGOT) 51(H) 10 - 42 unit/L LAB CHEMISTRY METHOD 10/12/2024 4:26 PM [facility] ALT (SGPT) 49 10 - 60 unit/L LAB CHEMISTRY METHOD 10/12/2024 4:26 PM [facility] Alkaline Phosphatase 164(H) 42 - 121 unit/L LAB CHEMISTRY METHOD 10/12/2024 4:26 PM [facility] Total Protein 7.3 6.0 - 8.0 g/dL LAB CHEMISTRY METHOD 10/12/2024 4:26 PM [facility] Albumin 3.1(L) 3.2 - 5.0 g/dL LAB CHEMISTRY METHOD 10/12/2024 4:26 PM [facility] Total Bilirubin 0.4 0.0 - 1.4 mg/dL LAB CHEMISTRY METHOD 10/12/2024 4:26 PM [facility] Blood Venous blood specimen / Unknown Venipuncture / Unknown 10/12/2024 11:56 AM EDT 10/12/2024 11:56 AM EDT us Catie Isabel NP LAB BLOOD ORDERABLES Final Resu lt [facility] [address] [place] [address], * Hepatitis C antibody (08/05/2024 2:25 PM EDT) Hepatitis C Antibody Negative Negative LAB CHEMISTRY METHOD 08/05/2024 10:04 PM EDT [facility] Blood Venous blood specimen / Unknown Venipuncture / Unknown 08/05/2024 2:25 PM EDT 08/05/2024 2:25 PM EDT Lori Vicente NP LAB BLOOD ORDERABLES Final Resu lt [facility] [address] [place] [address], * Colonoscopy (10/28/2023) Colonoscopy no interpretation , abstracted Anatomical Region Laterality Modality Other Historical Provider MD HEALTH MAINTENANCE Final Result from Last 3 Months or Most Recently Relevant to Health Maintenance Insurance MEDICARE [place]ICAID [place] Care Teams Electronic Controls Repairer Supervisor Relationship Specialty Start Date End Date Catie Isabel NP [address] [place] [address] PCP - General 09/30/23
--- OUTSIDE RECORDS SUMMARY | 2025-01-19 17:11 | XMS_ITS | Clinical Summary ---
Author Organization [address] Address [address] [place] [phone] Phone Care Team Providers Care Metal Temperer Name Role Phone Nile Rodarte DO Primary Care Provider [phone] Allergies No known active allergies Medications PREMARIN 0.625 mg/gram Crea 03/08/2015 Active meclizine (ANTIVERT) 25 mg tablet 03/17/2015 Active permethrin (ELIMITE) 5 % cream APPLY AND KEEP ON OVERNIGHT, RINSE OFF IN THE MORNING. THEN REPEAT IN 1 WEEK 1 05/09/2015 Active NASONEX 50 mcg/actuation [place] USE 2 SPRAYS IN EACH NOSTRIL ONCE [...] 2023 Influenza vaccine 10/09/2024 Covid-19 vaccine series (2024- season) 2024 Breast cancer screening Discontinued Cervical cancer screening Discontinued Colon cancer screening, Colonoscopy Discontinued Meningococcal B Vaccine Aged Out No l onger eligible based on patient's age to complete this topic Meningococcal Vaccine Aged Out No esdras vanesa eligible based on patient's age to complete this topic Insurance MEDICARE COMMERCIAL GENERIC MEDICARE [place] GENERIC MEDICARE COMMERCIAL GENERIC MEDICARE COMMERCIAL GENERIC Care Teams Metal Temperer Relationship Specialty Start Date End Date Nile Rodarte DO PCP - General Internal Medicine 04/12/15
--- OUTSIDE RECORDS SUMMARY | 2025-01-19 17:11 | XMS_ITS | Encounter Summary ---
Author Organization [facility] Address [address] [facility] [address] [place] [phone] Phone Care Team Providers Care Storekeeper Helper Name Role Phone Catie Isabel ASSISTANT GROCERY STORE MANAGER Primary Care Provider [phone] Encounter Details Date Type Department Care Team ([facility] st Contact Info) Description 05/20/2024 Procedure Pass [facility] PERIOPERATIVE DEPT [address] [place] [phone] Social History Tobacco Use Types Packs/Day [...] documented as of this encounter Care Teams Storekeeper Helper Relationship Specialty Start Date End Date Catie Isabel NP [address] [place] [address] PCP - General Nurse Practitioner 02/22/24 documented as of this encounter Additional Source Comments The information contained in this document represents components of the legal health record. It is not the complete legal health record.[facility]
--- OUTSIDE RECORDS SUMMARY | 2025-01-19 17:11 | XMS_ITS | Encounter Summary ---
Author Organization [facility] Address [address] [facility] [address] [place] [address] Phone Care Team Providers Care Member Of The Legislative [employer] Name Role Phone Catie Isabel RECORDS ANALYST Primary Care Provider [phone] Encounter Details Date Type Department Care Team (Late st Contact Info) Description 07/11/2024 Procedure Pass [facility], Ct Scan - [address] [address] Social History Tobacco Use Types Packs/Day Years [...] 07/11/2024 9:31 PM Meg Ortiz RN * [place] Suicide Severity Rating Scale (Screener/Recent Self-Report) Question [...] documented as of this encounter Care Teams Member Of [place] Legislative [employer] Relationship Specialty Start Date End Date Catie Isabel NP [address] [place] [address] PCP - General Nurse Practitioner 02/22/24 documented as of this encounter Additional Source Comments The information contained in this document represents components of the legal health record. It is not the complete legal health record.[facility]
--- OUTSIDE RECORDS SUMMARY | 2025-01-19 17:11 | XMS_ITS | Encounter Summary ---
Author Organization [facility] Address [address] [address] Phone Care Team Providers Care Film Technician Name Role Phone Catie Isabel PICKER BOX OPERATOR Primary Care Provider [phone] Encounter Details Date Type Department Care Team (Late st Contact Info) Description 05/13/2024 Procedure Pass [facility] [address] [place] [address] Social History Tobacco Use Types Packs/Day Years [...] 05/13/2024 10:00 PM Jazmin Ferrer RN * [place] Suicide Severity Rating Scale (Screener/Recent Self-Report) Question [...] documented as of this encounter Care Teams Film Technician Relationship Specialty Start Date End Date Catie Isabel NP [address] [place] [address] PCP - General Nurse Practitioner 02/22/24 documented as of this encounter Additional Source Comments The information contained in this document represents components of the legal health record. It is not the complete legal health record.[facility]
--- OUTSIDE RECORDS SUMMARY | 2025-01-19 17:11 | XMS_ITS | Encounter Summary ---
Author Organization [facility] Address [address] [place], [place] [phone] Phone Care Team Providers Care Steward/Stewardess Third Name Role Phone Catie Isabel PROGRAM MANAGEMENT MANAGER Primary Care Provider [phone]- [phone] Encounter Details Date Type Department Care Team (Late st Contact Info) Description 02/23/2024 Procedure Pass [facility], Ct Scan - [address] [address] Social History Tobacco Use Types Packs/Day Years [...] documented as of this encounter Care Teams Steward/Stewardess Third Relationship Specialty Start Date End Date Catie Isabel NP [address] [place] [address] PCP - General Nurse Practitioner 02/22/24 documented as of this encounter Additional Source Comments The information contained in this document represents components of the legal health record. It is not the complete legal health record.[facility]
--- OUTSIDE RECORDS SUMMARY | 2025-01-19 17:11 | XMS_ITS | Encounter Summary ---
Author Organization [facility] Address [address] [facility] [address] [place] [address] Phone Care Team Providers Care Paper Slitter Name Role Phone Catie Isabel FOREST WORKER Primary Care Provider [phone]- [phone] Encounter Details Date Type Department Care Team (Late st Contact Info) Description 08/13/2024 Procedure Pass [facility], Ct Scan - [address] [address] Social History Tobacco Use Types Packs/Day Years [...] 08/13/2024 6:44 AM Horacio Cohen RN * [place] Suicide Severity Rating Scale (Screener/Recent Self-Report) Question [...] documented as of this encounter Care Teams Paper Slitter Relationship Specialty Start Date End Date Catie Isabel NP [address] [place] [address] PCP - General Nurse Practitioner 02/22/24 documented as of this encounter Additional Source Comments The information contained in this document represents components of the legal health record. It is not the complete legal health record.[facility]
--- OUTSIDE RECORDS SUMMARY | 2025-01-19 17:11 | XMS_ITS | Encounter Summary ---
Author Organization [facility] Address [address] [place] [address] Care Team Providers Care Window/Distribution Clerk Name Role Phone Catie Isabel FINANCE EXECUTIVE Primary Care Provider [phone] Reason for Visit * Reason Onset Date Comments Medication Problem 01/18/2025 Encounter Details Date Type Department Care Team ([facility] Contact Info) Description 01/18/2025 Telephone Internal Medicine - [facility] [place] [address] Catie Isabel NP [address] [place] [address] Social History Tobacco Use Types Packs/Day Years [...] PM EDT documented as of this encounter Ordered Prescriptions Prescription Sig Dispense Quantity Refills Last Filled Start Date End Date oxyCODONE (ROXICODONE) 5 mg immediate release tablet Take 1 tablet (5 mg total) by mouth 2 (two) times a day if needed for severe pain. Max Daily Amount: 10 mg 56 tablet 01/18/2025 oxyCODONE (ROXICODONE) 5 mg immediate release tablet Take 1 tablet (5 mg total) by mouth 2 (two) times a day if needed for severe pain. Max Daily Amount: 10 mg 56 tablet 01/18/2025 01/18/2025 documented in this encounter Progress Notes * Xochitl Degroot MA - 01/18/2025 4:13 PM EST Pharmacy did not get script. * Catie Isabel NP - 01/18/2025 3:36 PM EST Prescription printed locally. Can you confirm if the pharmacy received the order * Catie Isabel NP - 01/18/2025 3:26 PM EST If I order the oxycodone she needs to ensure that she will not take it with the Vicodin. * Anushka Pate MA - 01/18/2025 2:34 PM EST Pt is currently on CSC for hydrocodone she is calling to switch to oxycodone as discussed with PCP.Pt was last seen 12/09 with no upcoming appt. PCP is booked into February would you like pt to come back into the office to further discuss CSC before switching medication? * Judy Oshea - 01/18/2025 2:30 PM EST Medication Problem: What is the name of the medication patient is having a problem with?: hydrocodone-acetaminophen What is the problem?: pt stated that switching her to oxycodone would be a better choice for her, per discussion with Catie Isabel she is asking to switch to this rx. Who is calling about the problem? : The patient Is this a NEW medication?: no How long has the patient been taking this medication? unknown Who prescribed this medication for the patient? Scotty parrish Who is patients PCP?: Catie Isabel NP Payor: MEDICARE / Plan: MEDICARE PART A & B / Product Type: Medicare / documented in this encounter Plan of Treatment Upcoming Encounters Date Type Department Care Team (Late st Contact Info) Description 01/25/2025 12:45 PM EST Ancillary Procedure Pulmonology [address] [phone] 01/28/2025 2:45 PM EST [facility] [address] [phone] Marisa Viveros MD [address] [place] [phone] documented as of this encounter Visit Diagnoses Not on filedocumented in this encounter Discontinued Medications Medication Sig Discontinue Reason Start Date End Da te oxyCODONE (ROXICODONE) 5 mg immediate release tablet Take 1 tablet (5 mg total) by mouth 2 (two) times a day if needed for severe pain. Max Daily Amount: 10 mg 01/18/2025 01/18/2025 documented as of this encounter Additional Health Concerns Assessment Noted Time PHQ-9 Depression Total Score: 0 01/16/20 2:37 PM EST A fall risk assessment has been complete d for the patient 01/16/2024 2:32 PM EST documented as of this encounter Care Teams Window/Distribution Clerk Relationship Specialty Start Date End Date Catie Isabel NP [address] [place] [address] PCP - General 09/30/23 documented as of this encounter
--- OUTSIDE RECORDS SUMMARY | 2025-01-19 17:11 | XMS_ITS | Patient Health Record ---
Author Organization [facility] Address [address] [place] [phone] Care Team Providers Care Web Developer Name Role Phone Leyla Gonsales Unavailable [phone] Reason For Referral No Information Plan Of Treatment No Information Insurance Providers Payer Name Payer Address Payer Phone Subscriber Number Group Number Insured Name Patient Relationship to Insured Coverage Start Date Coverage End Date MEDICARE [address] [place], [place] [id number] VINCENZO URBANO Self - patient is the insured
--- OUTSIDE RECORDS SUMMARY | 2025-01-19 17:11 | XMS_ITS | Encounter Summary ---
Author Organization [facility] Address [address] [place] [address] Care Team Providers Care Channel Business Manager Name Role Phone Catie Isabel [employer] Primary Care Provider [phone] Reason for Visit * Reason Onset Date Comments vna 12/18/2024 Encounter Details Date Type Department Care Team (Late Contact Info) Description 12/18/2024 Telephone Internal Medicine - [facility] [address] [place] [address] Catie Isabel NP [address] [place] [address] Social History Tobacco Use Types Packs/Day Years [...] as of this encounter Progress Notes * Jacquelin Vela - 12/18/2024 10:04 AM EDT FYI VNA CALL Which VNA office is calling? Claire johnson Full name of caller: lexie The caller is A nurse Is the caller at the patients home?: no Reason for call: she went to do an evaluation for vna services and pt declined. Says she's doing fine. Does caller need an urgent call back? no Was CONTACT Telephone # obtained above?: yes #: [phone] documented in this encounter Plan of Treatment Upcoming Encounters Date Type Department Care Team (Late st Contact Info) Description 01/25/2025 12:45 PM EST Ancillary Procedure Pulmonology [address] [phone] 01/28/2025 2:45 PM EST Office Visit [address] [phone] Marisa Viveros MD [address] [place] [phone] documented as of this encounter Visit Diagnoses Not on filedocumented in this encounter Additional Health Concerns Assessment Noted Time PHQ-9 Depression Total Score: 0 01/16/20 2:37 PM EST A fall risk assessment has been complete d for the patient 01/16/2024 2:32 PM EST documented as of this encounter Care Teams Channel Business Manager Relationship Specialty Start Date End Date Catie Isabel NP [address] [place] [address] PCP - General 09/30/23 documented as of this encounter
--- OUTSIDE RECORDS SUMMARY | 2025-01-19 17:11 | XMS_ITS | Encounter Summary ---
Author Organization [facility] Address [address] [place] [address] Phone Care Team Providers Care Field Contractor Name Role Phone Catie Isabel FUNCTIONAL SUPPORT ANALYST Primary Care Provider [phone] Encounter Details Date Type Department Care Team (Late st Contact Info) Description 02/24/2024 Procedure Pass [facility] Endoscopy Admitting Dept Virtual Department [address] [place] [address] Social History Tobacco Use Types Packs/Day Years [...] documented as of this encounter Care Teams Field Contractor Relationship Specialty Start Date End Date Catie Isabel NP [address] [place] [address] PCP - General Nurse Practitioner 02/22/24 documented as of this encounter Additional Source Comments The information contained in this document represents components of the legal health record. It is not the complete legal health record.[facility]
--- OUTSIDE RECORDS SUMMARY | 2025-01-19 17:11 | XMS_ITS | Encounter Summary ---
Author Organization [facility] Address [address] [address] Phone Care Team Providers Care County Commissioner Name Role Phone Catie Isabel FLORICULTURE PROFESSOR Primary Care Provider [phone] Encounter Details Date Type Department Care Team (Late st Contact Info) Description 06/04/2024 Procedure Pass [facility] Endoscopy Admitting Dept Virtual Department [address] [place] [address] Social History Tobacco Use Types Packs/Day Years [...] documented as of this encounter Care Teams County Commissioner Relationship Specialty Start Date End Date Catie Isabel NP [address] [place] [address] PCP - General Nurse Practitioner 02/22/24 documented as of this encounter Additional Source Comments The information contained in this document represents components of the legal health record. It is not the complete legal health record.[facility]
--- OUTSIDE RECORDS SUMMARY | 2025-01-19 17:11 | XMS_ITS | Encounter Summary ---
Author Organization [facility] Address [address] [facility] [address] [place] [address] Phone Care Team Providers Care Theatre Director Name Role Phone Catie Isabel ASSISTANT HOUSEKEEPING MANAGER Primary Care Provider [phone] Encounter Details Date Type Department Care Team (Late st Contact Info) Description 07/30/2024 Procedure Pass [facility], Ct Scan - [address] [address] Social History Tobacco Use Types Packs/Day Years [...] 07/30/2024 11:26 AM Laila Go RN * [place] Suicide Severity Rating Scale (Screener/Recent Self-Report) Question [...] documented as of this encounter Care Teams Theatre Director Relationship Specialty Start Date End Date Catie Isabel NP [address] [place] [address] PCP - General Nurse Practitioner 02/22/24 documented as of this encounter Additional Source Comments The information contained in this document represents components of the legal health record. It is not the complete legal health record.[facility]
--- OUTSIDE RECORDS SUMMARY | 2025-01-19 17:11 | XMS_ITS | Encounter Summary ---
Author Organization [facility] Address [address] [facility] [address] [place] [address] Phone Care Team Providers Care Steward/Stewardess Third Name Role Phone Catie Isabel DIGITAL ASSISTANT Primary Care Provider [phone] Encounter Details Date Type Department Care Team (Late st Contact Info) Description 05/14/2024 Procedure Pass [facility] [place] [address] [facility], [address] [place] [address] Social History Tobacco Use Types Packs/Day Years [...] Date End Date Catie Isabel NP [address] [place] [address] PCP - General Nurse Practitioner 02/22/24 documented as of this encounter Additional Source Comments The information contained in this document represents components of the legal health record. It is not the complete legal health record.[facility]
--- OUTSIDE RECORDS SUMMARY | 2025-01-19 17:11 | XMS_ITS | Clinical Summary ---
Author Organization [facility] Address [address] [place], [place] [id number] Phone Care Team Providers Care Park Recreation Manager Name Role Phone Catie Isabel PEARL DIGGER Primary Care Provider [phone] Allergies Active Allergy Reactions Criticality Noted Date Comments Diatrizoate Rebeka-Diatrizoat Sod 05/22/2024 She does not. She confirmed several times she has tolerated IV contrast and she just had it a few weeks ago without requiring premedication and with no adverse effects Yoon Acosta [facility] DENISSE Medications VENTOLIN HFA 90 mcg/actuation [...] and rescheduled for June. Had EGD at [facility] in fall 2023 showing gastritis at that time also had treatment for radiation proctitis. Admitted here in February 2024 with bloody stool. Had APC therapy. Rectal mesalamine started. Hemoglobin with initial drop but stable since (Had incidental findings on CT during admission in 02/2024 at [facility] cirrhosis hypodensity in pancreatic neck hypodensity [...] and rescheduled for June. Had EGD at [facility] in fall 2023 showing gastritis at that time also had treatment for radiation proctitis. Admitted here in February 2024 with bloody stool. Had APC therapy. Rectal mesalamine started Hemoglobin with initial drop but stable since (Had incidental findings on CT during admission in 02/2024 at [facility] cirrhosis hypodensity in pancreatic neck hypodensity [...] and rescheduled for June. Had EGD at [facility] in fall 2023 showing gastritis at that time also had treatment for radiation proctitis. Admitted here in February 2024 with bloody stool. Had APC therapy. Rectal mesalamine started Hemoglobin with initial drop but stable since (Had incidental findings on CT during admission in 02/2024 at [facility] cirrhosis hypodensity in pancreatic neck hypodensity [...] and rescheduled for June. Had EGD at [facility] in fall 2023 showing gastritis at that time also had treatment for radiation proctitis. Admitted here in February 2024 with bloody stool. Had APC therapy. Rectal mesalamine started Hemoglobin with initial drop but stable since (Had incidental findings on CT during admission in 02/2024 at [facility] cirrhosis hypodensity in pancreatic neck hypodensity [...] and rescheduled for June. Had EGD at [facility] in fall 2023 showing gastritis at that time also had treatment for radiation proctitis. Admitted here in February 2024 with bloody stool. Had APC therapy. Rectal mesalamine started Hemoglobin with initial drop but stable since (Had incidental findings on CT during admission in 02/2024 at [facility] cirrhosis hypodensity in pancreatic neck hypodensity [...] and rescheduled for June. Had EGD at [facility] in fall 2023 showing gastritis at that time also had treatment for radiation proctitis. Admitted here in February 2024 with bloody stool. Had APC therapy. Rectal mesalamine started Hemoglobin with initial drop but stable since (Had incidental findings on CT during admission in 02/2024 at [facility] cirrhosis hypodensity in pancreatic neck hypodensity [...] and rescheduled for June. Had EGD at [facility] in fall 2023 showing gastritis at that time also had treatment for radiation proctitis. Admitted here in February 2024 with bloody stool. Had APC therapy. Rectal mesalamine started Hemoglobin with initial drop but stable since (Had incidental findings on CT during admission in 02/2024 at [facility] cirrhosis hypodensity in pancreatic neck hypodensity [...] and rescheduled for June. Had EGD at [facility] in fall 2023 showing gastritis at that time also had treatment for radiation proctitis. Admitted here in February 2024 with bloody stool. Had APC therapy. Rectal mesalamine started Hemoglobin with initial drop but stable since (Had incidental findings on CT during admission in 02/2024 at [facility] cirrhosis hypodensity in pancreatic neck hypodensity [...] and rescheduled for June. Had EGD at [facility] in fall 2023 showing gastritis at that time also had treatment for radiation proctitis. Admitted here in February 2024 with bloody stool. Had APC therapy. Rectal mesalamine started Hemoglobin with initial drop but stable since (Had incidental findings on CT during admission in 02/2024 at [facility] cirrhosis hypodensity in pancreatic neck hypodensity [...] and rescheduled for June. Had EGD at [facility] in fall 2023 showing gastritis at that time also had treatment for radiation proctitis. Admitted here in February 2024 with bloody stool. Had APC therapy. Rectal mesalamine started Hemoglobin with initial drop but stable since (Had incidental findings on CT during admission in 02/2024 at [facility] cirrhosis hypodensity in pancreatic neck hypodensity [...] and rescheduled for June. Had EGD at [facility] in fall 2023 showing gastritis at that time also had treatment for radiation proctitis. Admitted here in February 2024 with bloody stool. Had APC therapy. Rectal mesalamine started Hemoglobin with initial drop but stable since (Had incidental findings on CT during admission in 02/2024 at [facility] cirrhosis hypodensity in pancreatic neck hypodensity [...] and rescheduled for June. Had EGD at [facility] in fall 2023 showing gastritis at that time also had treatment for radiation proctitis. Admitted here in February 2024 with bloody stool. Had APC therapy. Rectal mesalamine started Hemoglobin with initial drop but stable since (Had incidental findings on CT during admission in 02/2024 at [facility] cirrhosis hypodensity in pancreatic neck hypodensity [...] and rescheduled for June. Had EGD at [facility] in fall 2023 showing gastritis at that time also had treatment for radiation proctitis. Admitted here in February 2024 with bloody stool. Had APC therapy. Rectal mesalamine started (Had incidental findings on CT during admission in 02/2024 at [facility] cirrhosis hypodensity in pancreatic neck hypodensity [...] and rescheduled for June. Had EGD at [facility] in fall 2023 showing gastritis at that time also had treatment for radiation proctitis. Admitted here in February 2024 with bloody stool. Had APC therapy. Rectal mesalamine started (Had incidental findings on CT during admission in 02/2024 at [facility]. Had follow-up MRI in March reassuring, [...] treated with this. Review of records in [facility] does not reveal a diagnosis of hemochromatosis Fe 44 ferritin 119 Assessment & Plan (05/11/2024 8:30 PM EST): Pt Reports history of hemochromatosis. She denies having had any phlebotomy for this though family members have been treated with this. Review of records in [facility] does not reveal a diagnosis of hemochromatosis Fe 44 ferritin 119 Assessment & Plan (05/10/2024 2:19 PM EST): Pt Reports history of hemochromatosis. She denies having had any phlebotomy for this though family members have been treated with this. Review of records in [facility] does not reveal a diagnosis of hemochromatosis Fe 44 ferritin 119 Assessment & Plan (05/09/2024 10:35 AM EST): Pt Reports history of hemochromatosis. She denies having had any phlebotomy for this though family members have been treated with this. Review of records in [facility] does not reveal a diagnosis of hemochromatosis Fe 44 ferritin 119 Assessment & Plan (05/08/2024 6:41 PM EST): Pt Reports history of hemochromatosis. She denies having had any phlebotomy for this though family members have been treated with this. Review of records in [facility] does not reveal a diagnosis of hemochromatosis Fe 44 ferritin 119 Assessment & Plan (05/07/2024 4:54 PM EST): Pt Reports history of hemochromatosis. She denies having had any phlebotomy for this though family members have been treated with this. Review of records in [facility] does not reveal a diagnosis of hemochromatosis This week iron panel checked, Fe 44 ferritin 119 Assessment & Plan (05/06/2024 10:20 AM EST): Pt Reports history of hemochromatosis. She denies having had any phlebotomy for this though family members have been treated with this. Review of records in [facility] does not reveal a diagnosis of hemochromatosis This week iron panel checked, Fe 44 ferritin 119 Assessment & Plan (05/05/2024 4:47 PM EST): Pt Reports history of hemochromatosis. She denies having had any phlebotomy for this though family members have been treated with this. Review of records in [facility] does not reveal a diagnosis of hemochromatosis This week iron panel checked, Fe 44 ferritin 119 Assessment & Plan (05/04/2024 1:00 PM EST): Pt Reports history of hemochromatosis. She denies having had any phlebotomy for this though family members have been treated with this. Review of records in [facility] does not reveal a diagnosis of hemochromatosis [...] in May admitted to [facility] with sbo but failed conservative treatment, transferred from [facility] to [facility] with partial SBO with multifocal stricturing , and foci concerning for carcinomatosis At [facility] Underwent diagnostic laparoscopy, no visual evidence cancer.per [...] sent for path, no cancer) Presented to [facility] ED 08/13 with several days of abdominal pain. Also reported vomiting CT showed small bowel obstruction with transition point involving distal small bowel loops in the pelvis, cirrhotic liver with small volume ascites [facility] surgeon contacted, said patient could transfer but pt declined. Patient seen by [facility] surgeon. Admitted w/ conservative treatment -n.p.o. [...] in May admitted to [facility] with sbo but failed conservative treatment, transferred from [facility] to [facility] with partial SBO with multifocal stricturing , and foci concerning for carcinomatosis At [facility] Underwent diagnostic laparoscopy, no visual evidence cancer.per [...] sent for path, no cancer) Presented to [facility] ED 08/13 with several days of abdominal pain. Also reported vomiting CT showed small bowel obstruction with transition point involving distal small bowel loops in the pelvis, cirrhotic liver with small volume ascites [facility] surgeon contacted, said patient could transfer but pt declined. Patient seen by [facility] surgeon. Admitted w/ conservative treatment -n.p.o. [...] in May admitted to [facility] with sbo but failed conservative treatment, transferred from [facility] to [facility] with partial SBO with multifocal stricturing , and foci concerning for carcinomatosis At [facility] Underwent diagnostic laparoscopy, no visual evidence cancer.per [...] sent for path, no cancer) Presented to [facility] ED 08/13 with several days of abdominal pain. Also reported vomiting CT showed small bowel obstruction with transition point involving distal small bowel loops in the pelvis, cirrhotic liver with small volume ascites [facility] surgeon contacted, said patient could transfer but pt declined. Patient seen by [facility] surgeon. Admitted w/ conservative treatment -n.p.o. [...] in May admitted to [facility] with sbo but failed conservative treatment, transferred from [facility] to [facility] with partial SBO with multifocal stricturing , and foci concerning for carcinomatosis At [facility] Underwent diagnostic laparoscopy, no visual evidence cancer.per [...] sent for path, no cancer) Presented to [facility] ED 08/13 with several days of abdominal pain. Also reported vomiting CT showed small bowel obstruction with transition point involving distal small bowel loops in the pelvis, cirrhotic liver with small volume ascites [facility] surgeon contacted, said patient could transfer but pt declined. Patient seen by [facility] surgeon. Admitted w/ conservative treatment -n.p.o. [...] in May admitted to [facility] with sbo but failed conservative treatment, transferred from [facility] to [facility] with partial SBO with multifocal stricturing , and foci concerning for carcinomatosis At [facility] Underwent diagnostic laparoscopy, no visual evidence cancer.per [...] sent for path, no cancer) Presented to [facility] ED 6 with several days of abdominal pain. Also reported vomiting CT showed small bowel obstruction with transition point involving distal small bowel loops in the pelvis, cirrhotic liver with small volume ascites [facility] surgeon contacted, said patient could transfer but pt declined. Patient seen by [facility] surgeon. Admitted w/ conservative treatment -n.p.o. [...] in May admitted to [facility] with sbo but failed conservative treatment, transferred from [facility] to [facility] with partial SBO with multifocal stricturing , and foci concerning for carcinomatosis At [facility] Underwent diagnostic laparoscopy, no visual evidence cancer.per [...] sent for path, no cancer) Presented to [facility] ED 08/13 with several days of abdominal pain. Also reported vomiting CT showed small bowel obstruction with transition point involving distal small bowel loops in the pelvis, cirrhotic liver with small volume ascites [facility] surgeon contacted, said patient could transfer but pt declined. Patient seen by [facility] surgeon. Admitted w/ conservative treatment -n.p.o. [...] in May admitted to [facility] with sbo but failed conservative treatment, transferred from [facility] to [facility] with partial SBO with multifocal stricturing , and foci concerning for carcinomatosis At [facility] Underwent diagnostic laparoscopy, no visual evidence cancer.per [...] sent for path, no cancer) Presented to [facility] ED 6/5 with several days of abdominal pain. Also reported vomiting CT showed small bowel obstruction with transition point involving distal small bowel loops in the pelvis, cirrhotic liver with small volume ascites [facility] [place], said patient could transfer but pt declined. Patient seen by [facility] surgeon. Admitted w/ conservative treatment -n.p.o. [...] in May admitted to [facility] with sbo but failed conservative treatment, transferred from [facility] to [facility] with partial SBO with multifocal stricturing , foci concerning for carcinomatosis At [facility] Underwent diagnostic laparoscopy, no cancer.. 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 Surgeon did not intervene at all.. At that time also had cystoscopy and placement of ureteral stents. Since removed Presented to [facility] ED 6/5 with several days of abdominal pain. Also reported vomiting CT showed small bowel obstruction with transition point involving distal small bowel loops in the pelvis, cirrhotic liver with small volume ascites [facility] [place], said patient could transfer but pt declined. Patient seen by [facility] surgeon. Admitted w/ conservative treatment -n.p.o. [...] in May failed conservative treatment, transferred from [facility] to [facility] with partial SBO with multifocal stricturing , foci concerning for carcinomatosis Underwent diagnostic laparoscopy, no cancer.. 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 Surgeon did not intervene at all.. At that time also had cystoscopy and placement of ureteral stents. Presented to [facility] ED 08/13 with several days of abdominal pain. Also reported vomiting CT showed small bowel obstruction with transition point involving distal small bowel loops in the pelvis, cirrhotic liver with small volume ascites [facility] [place] contacted, felt patient could transfer but pt declined. Patient seen by [facility] surgeon. Admitted. Plan for conservative treatment n.p.o. IV fluid bowel rest. Patient seems improved today. Diet changes per surgery (When were r stents removed?) Assessment & Plan (08/13/2024 11:18 PM EDT): This is a 74-year-old female with an extensive history of cirrhosis, colon cancer status post radiation and numerous SBO's who recently underwent diagnostic laparoscopy and cystoscopy placement with ureteral stent at [facility] in May for recurrent small bowel obstruction. [...] that they felt she could stay at [facility] Plan Bowel rest Surgical consult initiated in the emergency department IV fluid Follow labs vital signs and serial exams Antiemetics analgesics [id number] surgeon felt patient could transfer but she [...] transfer for surgical management. [place] [facility] [place], requesting facility with SICU. - [...] Plan (08/22/2024 11:53 AM EDT): Sees a broach trouble shooter regularly. Has an appointment scheduled soon Assessment & Plan (08/21/2024 9:17 AM EDT): Sees a broach trouble shooter regularly. Has an appointment scheduled soon Assessment & Plan (08/20/2024 1:01 PM EDT): Sees a broach trouble shooter regularly. Has an appointment scheduled soon Assessment & Plan (08/19/2024 4:10 PM EDT): Sees a broach trouble shooter regularly. Has an appointment scheduled soon Assessment & Plan (08/18/2024 3:17 PM EDT): Sees a broach trouble shooter regularly. Has an appointment scheduled soon Assessment & Plan (08/17/2024 3:45 PM EDT): Sees a broach trouble shooter regularly. Has an appointment scheduled soon Assessment & Plan (08/16/2024 12:50 PM EDT): Sees a broach trouble shooter regularly. Has an appointment scheduled soon Assessment [...] have gastritis on her EGD done at [place] recently. She says the epigastric discomfort is not new Assessment & Plan (02/27/2024 6:24 PM EST): Continue pantoprazole 40 mg twice daily, added sucralfate. Patient complains of some epigastric discomfort. She did have gastritis on her EGD done at [facility] recently. She says the epigastric discomfort is not new Assessment & Plan (02/26/2024 10:40 PM EST): Continue pantoprazole 40 mg twice daily, added sucralfate. Patient complains of some epigastric discomfort. She did have gastritis on her EGD done at [facility] recently. She says the epigastric discomfort is not new Assessment & Plan (02/25/2024 3:29 PM EST): Continue pantoprazole 40 mg twice daily, added sucralfate. Patient complains of some epigastric discomfort. She did have gastritis on her EGD done at [facility] recently. She says the epigastric discomfort is [...] VACCINE (1 - 1-dose 75+ series) 2023 INFLUENZA VACCINE (#1) 2024 COVID-19 VACCINE (2024-2 6 season) 2024 SMOKING STATUS SCREENING (On ce After 26 Yrs) Completed 04/17/2024 HIB VACCINES Aged Out No longer eligi ble based on patient's age to complete this topic IPV VACCINES Aged Out No longer eligi ble [...] 08/14/2024 Insurance MEDICARE PART A & B [facility] MEDICARE PART A & B HEALTH MEDICARE PART A & B MEDICARE PART [place] & [place] [facility] & B [facility] MEDICARE PART A & B [facility] Advance Directives For more information, please contact: [phone] (9AM - 5PM [place], Saturday-Saturday) * Full Code (Latest Code Status [...] Status Communicated To: Inpatient Attending Care Teams Park Recreation Manager Relationship Specialty Start Date End Date Catie Isabel NP [address] [place] [id number] PCP - General Nurse Practitioner 02/22/24 Additional Source Comments The information contained in this document represents components of the legal health record. It is not the complete legal health record.[facility]
== END 2025-01-19 17:00 | disposition home or self-care (01) ==
PROVIDERS: PCP Nurse Practitioner Primary Care; Visit Provider Internal Medicine
DX: J84.9 Interstitial pulmonary disease, unspecified (principal); J47.9 Bronchiectasis, uncomplicated; J44.1 Chronic obstructive pulmonary disease with (acute) exacerbation; R09.02 Hypoxemia
CPT/HCPCS: 99214

== ENCOUNTER → 2025-01-19 15:35 | Outpatient (BNVA) | payer MEDICARE, MEDICAID, SELFPAY | PROVIDERS: PCP Nurse Practitioner Primary Care; Visit Provider Internal Medicine | DX: J84.9 Interstitial pulmonary disease, unspecified (principal); J47.9 Bronchiectasis, uncomplicated; J44.1 Chronic obstructive pulmonary disease with (acute) exacerbation; R09.02 Hypoxemia; Z99.81 Dependence on supplemental oxygen | CPT/HCPCS: 94010; 94618; 99212 ==

== ENCOUNTER 2025-03-01 14:02 | Outpatient (AMB) | payer MEDICARE, MEDICAID, SELFPAY ==
--- NOTE | 2025-03-01 14:10 | A.OFFVIS_ITS ---
Vital Signs 03/01/25 14:11 Height 5 ft 2 in Weight 143 lb 4.807 oz BMI 26.2 BP 102/64 Blood Pressure Location Lt brachial Position Sitting Pulse 103 H Pulse Source Pulse Oximeter Pulse Oximetry (%) 96 Oxygen Delivery Method Room Air Intake Visit Reasons: pulmonary fibrosis Intake Note: pt is here for follow up and states she is still not feeling that great, still has a lot of thick mucous, and a o lot of fatigue, can you send in refill for incruse. Hot Dip Galvanizer Required: No Chinese Medicine Practitioner: Chinese Medicine Practitioner offered & declined Allergies ciprofloxacin (From Cipro) Adverse Reaction (Intermediate, Verified 03/01/25 15:17) Facial redness, lip swelling Medication List - Last Reconciled 03/01/25 by Vane Loja MD albuterol sulfate 90 mcg/actuation (Ventolin HFA) 2 puffs inhalation Q4-6H PRN 30 days cholecalciferol (vitamin D3) 125 mcg PO DAILY dicyclomine 10 mg PO TID fluticasone propionate 50 mcg/actuation 2 sprays intranasal DAILY PRN hydrocodone-acetaminophen 5-325 mg 0.5 tabs PO DAILY PRN ipratropium-albuterol 0.5 mg-3 mg(2.5 mg base)/3 mL 3 mL inhalation Q6H PRN lidocaine 5% (Lidoderm) 1 patch topical DAILY PRN lorazepam 1 mg PO BEDTIME PRN mesalamine 1,000 mg CO BEDTIME multivitamin 1 tab PO DAILY pantoprazole 40 mg PO BID@0630,1630 polyethylene glycol 3350 17 grams PO DAILY PRN pramoxine 1% (Proctofoam) 1 appl CO DAILY umeclidinium 62.5 mcg/actuation (Incruse Ellipta) 1 inh inhalation DAILY PRN HPI HPI pulmonary fibrosis: Details: ENDER COMES AFTER 6 WEEKS FOR FOLLOW-UP. SINCE HER LAST VISIT SHE DID COMPLETE HER STEM-CELL THERAPY AT A FACILITY IN [place]. SHE SAY IS SYMPTOMATICALLY SHE HAS GRADUALLY IMPROVED. HER MAIN SYMPTOM IS ONGOING COUGH, WITH MODERATE AMOUNT OF MUCUS PRODUCTION. IT IS MOSTLY IN THE MORNING, THE EXPECTORATION IS WHITE, SOMEWHAT THICK. SHE IS USING HERBAL TEA,( MOLLEN) ONCE OR TWICE A DAY AND IT IS HELPING TO EXPECTORATE THE MUCUS. SHE DENIES ANY WHEEZING. SHE CAN WALK LONGER DISTANCE WITHOUT GETTING SHORT OF BREATH. SHE DOES HAVE THE CONCENTRATOR AT HOME BUT SHE HAS NOT NEEDED TO USE THE OXYGEN MUCH. HER O2 SAT USUALLY STAYS ABOVE 90%. SOMETIMES WHEN SHE DOES SOME HEAVY WORK THEN AFTER THAT SHE SITS DOWN AND USES O2 FOR A WHILE JUST TO REFRESH HERSELF. [facility] Medical History Exercise hypoxemia Abdominal pain Fibrosing alveolitis Interstitial lung disease SBO (small bowel obstruction) Syncope Abdominal pain Bronchiectasis Shoulder pain, bilateral UTI (urinary tract infection) Arthralgia Dizziness Dysuria Acute sinusitis Periumbilical abdominal pain Flank pain Left flank pain Annual physical exam IBS (irritable bowel syndrome) Gastritis Cough Fatigue Scabies Post covid-19 condition, unspecified Elevated LFTs Diarrhea Sinusitis Bronchitis Well woman exam COPD (chronic obstructive pulmonary disease) Radiation proctitis Radiation enteritis Postmenopausal bleeding History of colon cancer Rectal bleeding Asthma Vertigo Seasonal allergies Hyperglycemia Palpitation Hemochromatosis Tubular adenoma Colon cancer Vaginal cancer Surgical History History of cholecystectomy History of esophagogastroduodenoscopy (EGD) H/O colonoscopy H/O colectomy Family History Father Dementia GSW (gunshot wound) CAD (coronary artery disease) Mother GSW (gunshot wound) Family/Other Diabetes mellitus Brother CAD (coronary artery disease) Sister Multiple sclerosis Sister Rheumatoid arthritis Sister Rheumatoid arthritis Social History Household Members: None Household Members Other:: aunt a 96 years old Housing: House Are you a primary care provider to a significant other at home: No Do you presently have visiting nurse or other home services: No Alcohol intake: never Comment: pt refuses Patient Tobacco Use Status: Never used Tobacco e-Cigarette/Vaping Use: Never Used Second Hand Smoke Exposure: No Advance Directives Date on File: 04/09/22 service: No Current occupational status: unemployed Sexual orientation: Straight/Heterosexual Gender identity: Female Review of Systems Const All systems reviewed & are unremarkable except as noted in HPI and below Eyes Reports no additional complaints ENT Reports nasal congestion (Mild intermittent) Card Denies chest pain, Denies irregular heart rhythm and Denies leg edema Resp Reports as per HPI GI Reports no additional complaints Reports no additional complaints Musc Reports no additional complaints Skin/Breast Reports system reviewed and no additional complaints, except as documented Neuro Reports no additional complaints Psych Reports no additional complaints Endo Reports no additional complaints Physical Exam Vital Signs: Last Vital Signs Pulse 103 H 03/01/25 14:11 BP 102/64 03/01/25 14:11 Pulse Ox 96 03/01/25 14:11 Oxygen Delivery Method Room Air 03/01/25 14:11 BMI result Body Mass Index 26.2 Const General: comfortable, no acute distress, alert and awake Orientation/consciousness: patient oriented x3 HEENT Head: Yes normal to inspection General nose exam: No nasal polyps present and Other nasal findings present (MODERATE NASAL CONGESTION, SHE HAS COPIOUS POSTERIOR PHARYNGEAL MUCOUS) Face and sinus: Yes sinuses nontender Mouth: oropharynx normal Throat: No posterior oropharynx normal (HAS LOT OF MUCUS IN THE POSTERIOR PHARYNX.) Eyes General: appearance normal, both eyes and all related structures Neck Neck: Yes normal visual inspection, Yes no lymphadenopathy, Yes trachea midline and Yes no JVD Thyroid: Thyroid normal Chest Chest palpation & inspection: normal inspection of the chest, normal palpation of entire chest wall and no tenderness Resp Other: Percussion note resonant, breath sounds are slightly distant. No wheezes but she does have a few inspiratory crackles over the lower lobes on both sides . Cardio Palpation: normal PMI Rate: regular rate Rhythm: regular rhythm Heart sounds: no gallops and no murmurs Peripheral pulses: Peripheral pulses 2+ throughout GI Palpation (GI): Soft to palpation, nontender, No hepatosplenomegaly present and no masses Auscultation: normal bowel sounds Back/Spine/Pelvis Thoracic/Lumbar Spine: thoracic and lumbar spine normal to inspection Skin General skin exam: no rashes or lesions noted Neuro General: patient oriented x3 and no focal motor deficits Cranial nerves: Yes CN's II-XII intact bilaterally Extrem General: Yes normal to inspection, Yes no clubbing, cyanosis or edema and Yes no calf tenderness Psych Appearance: grossly normal and well kempt Speech and movement: Normal speech and movement present Affect: Anxious affect present Assessment & Plan Assessment & Plan (1) Interstitial lung disease: Comment: Her previous chest x-ray and CT scan have shown evidence of INTERSTITIAL LUNG DISEASE WITH TRACTION BRONCHIECTASIS The CTA of the chest on 10/23 DONE when she went to emergency room, shows extensive interstitial lung disease with pattern of alveolitis. This may be due to recent respiratory infections , or progression of her previously diagnosed ILD CT SCAN OF THE CHEST ON 12/16 AGAIN SHOWS BILATERAL PULMONARY FIBROSIS WITH PERIPHERAL RETICULATION AND ALSO TRACTION BRONCHIECTASIS. Patient has been exploring, treatment regimens, on her own. She has had 1 stem cell infusion, subjectively feeling better. Code(s): J84.9 - Interstitial pulmonary disease, unspecified Category: Medical Plan: I told her that cough is the main symptom at this time, and she can continue to use herbal perhaps to reduce the cough. (2) Bronchiectasis: Comment: She has traction bronchiectasis in the lower lobes secondary to chronic fibrotic changes . This makes her a high risk for recurrent respiratory infections. There is no evidence of active infection at this time. Code(s): J47.9 - Bronchiectasis, uncomplicated Category: Medical Plan: Continue to watch for any super added infection. (3) COPD (chronic obstructive pulmonary disease): Comment: Patient does have mild to moderate chronic obstructive pulmonary disease., it was relatively stable and she has not come for follow-up during the past 1 year. Lately for the last month or so her symptoms are worse She claims to be more short of breath chest on minimal walking . I think this is probably due to progressive interstitial lung disease. She is using Incruse Ellipta once a day, and ipratropium-albuterol solution in the nebulizer only p.r.n. , if develops any wheezing. Code(s): J44.9 - Chronic obstructive pulmonary disease, unspecified Category: Medical Qualifiers: COPD type: COPD with acute exacerbation Qualified Code(s): J44.1 - Chronic obstructive pulmonary disease with (acute) exacerbation Plan: Continue Incruse. Ellipta once a day Use ipratropium-albuterol solution in the nebulizer Q 6 hours p.r.n., also Ventolin inhaler 2 puffs Q 4-6 hours p.r.n. when outdoors. (4) Exercise hypoxemia: Comment: In the hospital while she was using oxygen she felt better. Now she states that her shortness of breath gets worse when she walks around. She did have 6 minutes walk and she said desaturated down to 88% on walking. She was put on oxygen supplement 2 L/minute and she felt much better. Code(s): R09.02 - Hypoxemia Category: Medical Plan: Patient does have O2 concentrator at home, and also portable unit. But she needs to use it only once in a while. She is walking short distances without getting much short of breath. Coding Level of Care Code Est Pt Level 3 (99756) Diagnoses Interstitial lung disease J84.9 Bronchiectasis J47.9 COPD (chronic obstructive pulmonary disease) J44.1 COPD type: COPD with acute exacerbation Exercise hypoxemia R09.02
[2025-03-01 14:11] VITALS: BP 102/64; PULSE 103; O2SAT 96; BMI 26.2
--- OUTSIDE RECORDS SUMMARY | 2025-03-01 17:29 | XMS_ITS | Encounter Summary ---
Author Organization [facility] Address [address] [facility] [address] [place] [id number] Phone Care Team Providers Care Historic Sites Supervisor Name Role Phone Catie Isabel ATTENDING RADIOLOGIST Primary Care Provider [phone] Encounter Details Date Type Department Care Team (Late st Contact Info) Description 07/30/2024 Procedure Pass [facility], Ct Scan - [address] [address] Social History Tobacco Use Types Packs/Day Years [...] documented as of this encounter Care Teams Historic Sites Supervisor Relationship Specialty Start Date End Date Catie Isabel NP [address] [place] [phone] PCP - General Nurse Practitioner 02/22/24 documented as of this encounter Additional Source Comments The information contained in this document represents components of the legal health record. It is not the complete legal health record.[facility]
--- OUTSIDE RECORDS SUMMARY | 2025-03-01 17:29 | XMS_ITS | Patient Health Record ---
Author Organization [facility] Address [address] [place] [id number] Care Team Providers Care Associate Professor Of Philosophy Name Role Phone Leyla Gonsales Unavailable [phone] Reason For Referral No Information Plan Of Treatment No Information Insurance Providers Payer Name Payer Address Payer Phone Subscriber Number Group Number Insured Name Patient Relationship to Insured Coverage Start Date Coverage End Date MEDICARE [address] [place], [place] [id number] [phone] VINCENZO URBANO Self - patient is the insured
--- OUTSIDE RECORDS SUMMARY | 2025-03-01 17:29 | XMS_ITS | Encounter Summary ---
Author Organization [facility] Address [address] [facility] [address] [place] [address] Phone Care Team Providers Care Irrigator Valve Pipe Name Role Phone Catie Isabel CAREER TECHNICAL EDUCATION TEACHER Primary Care Provider [phone]- [phone] Encounter Details Date Type Department Care Team ([facility] st Contact Info) Description 05/20/2024 Procedure Pass [facility] [place] [facility] [address] [place] [id number] Social History Tobacco Use Types Packs/Day [...] documented as of this encounter Care Teams Irrigator Valve Pipe Relationship Specialty Start Date End Date Catie Isabel NP [address] [place] [id number] PCP - General Nurse Practitioner 02/22/24 documented as of this encounter Additional Source Comments The information contained in this document represents components of the legal health record. It is not the complete legal health record.[facility]
--- OUTSIDE RECORDS SUMMARY | 2025-03-01 17:29 | XMS_ITS | Clinical Summary ---
Author Organization [facility] Address [address] [place], [place] [id number] Phone Care Team Providers Care Route Cdl Driver Name Role Phone Catie Isabel ELECTROMECHANICAL TECHNOLOGIST Primary Care Provider [phone]- [phone] Allergies Active Allergy Reactions Criticality Noted Date Comments Diatrizoate Rebeka-Diatrizoat Sod 05/22/2024 She does not. She confirmed several times she has tolerated IV contrast and she just had it a few weeks ago without requiring premedication and with no adverse effects Yoon Acosta [facility] DENISSE Medications VENTOLIN HFA 90 [...] and rescheduled for June. Had EGD at [facility] in fall 2023 showing gastritis at that time also had treatment for radiation proctitis. Admitted here in February 2024 with bloody stool. Had APC therapy. Rectal mesalamine started. Hemoglobin with initial drop but stable since (Had incidental findings on CT during admission in 02/2024 at [facility] cirrhosis hypodensity in pancreatic neck [...] and rescheduled for June. Had EGD at [facility] in fall 2023 showing gastritis at that time also had treatment for radiation proctitis. Admitted here in February 2024 with bloody stool. Had APC therapy. Rectal mesalamine started Hemoglobin with initial drop but stable since (Had incidental findings on CT during admission in 02/2024 at [facility] cirrhosis hypodensity in pancreatic neck [...] and rescheduled for June. Had EGD at [facility] in fall 2023 showing gastritis at that time also had treatment for radiation proctitis. Admitted here in February 2024 with bloody stool. Had APC therapy. Rectal mesalamine started Hemoglobin with initial drop but stable since (Had incidental findings on CT during admission in 02/2024 at [facility] cirrhosis hypodensity in pancreatic neck [...] and rescheduled for June. Had EGD at [facility] in fall 2023 showing gastritis at that time also had treatment for radiation proctitis. Admitted here in February 2024 with bloody stool. Had APC therapy. Rectal mesalamine started Hemoglobin with initial drop but stable since (Had incidental findings on CT during admission in 02/2024 at [facility] cirrhosis hypodensity in pancreatic neck [...] and rescheduled for June. Had EGD at [facility] in fall 2023 showing gastritis at that time also had treatment for radiation proctitis. Admitted here in February 2024 with bloody stool. Had APC therapy. Rectal mesalamine started Hemoglobin with initial drop but stable since (Had incidental findings on CT during admission in 02/2024 at [facility] cirrhosis hypodensity in pancreatic neck [...] and rescheduled for June. Had EGD at [facility] in fall 2023 showing gastritis at that time also had treatment for radiation proctitis. Admitted here in February 2024 with bloody stool. Had APC therapy. Rectal mesalamine started Hemoglobin with initial drop but stable since (Had incidental findings on CT during admission in 02/2024 at [facility] cirrhosis hypodensity in pancreatic neck [...] and rescheduled for June. Had EGD at [facility] in fall 2023 showing gastritis at that time also had treatment for radiation proctitis. Admitted here in February 2024 with bloody stool. Had APC therapy. Rectal mesalamine started Hemoglobin with initial drop but stable since (Had incidental findings on CT during admission in 02/2024 at [facility] cirrhosis hypodensity in pancreatic neck [...] and rescheduled for June. Had EGD at [facility] in fall 2023 showing gastritis at that time also had treatment for radiation proctitis. Admitted here in February 2024 with bloody stool. Had APC therapy. Rectal mesalamine started Hemoglobin with initial drop but stable since (Had incidental findings on CT during admission in 02/2024 at [facility] cirrhosis hypodensity in pancreatic neck [...] and rescheduled for June. Had EGD at [facility] in fall 2023 showing gastritis at that time also had treatment for radiation proctitis. Admitted here in February 2024 with bloody stool. Had APC therapy. Rectal mesalamine started Hemoglobin with initial drop but stable since (Had incidental findings on CT during admission in 02/2024 at [facility] cirrhosis hypodensity in pancreatic neck [...] and rescheduled for June. Had EGD at [facility] in fall 2023 showing gastritis at that time also had treatment for radiation proctitis. Admitted here in February 2024 with bloody stool. Had APC therapy. Rectal mesalamine started Hemoglobin with initial drop but stable since (Had incidental findings on CT during admission in 02/2024 at [facility] cirrhosis hypodensity in pancreatic neck [...] and rescheduled for June. Had EGD at [facility] in fall 2023 showing gastritis at that time also had treatment for radiation proctitis. Admitted here in February 2024 with bloody stool. Had APC therapy. Rectal mesalamine started Hemoglobin with initial drop but stable since (Had incidental findings on CT during admission in 02/2024 at [facility] cirrhosis hypodensity in pancreatic neck [...] and rescheduled for June. Had EGD at [facility] in fall 2023 showing gastritis at that time also had treatment for radiation proctitis. Admitted here in February 2024 with bloody stool. Had APC therapy. Rectal mesalamine started Hemoglobin with initial drop but stable since (Had incidental findings on CT during admission in 02/2024 at [facility] cirrhosis hypodensity in pancreatic neck [...] and rescheduled for June. Had EGD at [facility] in fall 2023 showing gastritis at that time also had treatment for radiation proctitis. Admitted here in February 2024 with bloody stool. Had APC therapy. Rectal mesalamine started (Had incidental findings on CT during admission in 02/2024 at [facility] cirrhosis hypodensity in pancreatic neck [...] and rescheduled for June. Had EGD at [facility] in fall 2023 showing gastritis at that time also had treatment for radiation proctitis. Admitted here in February 2024 with bloody stool. Had APC therapy. Rectal mesalamine started (Had incidental findings on CT during admission in 02/2024 at [facility]. Had follow-up MRI in March [...] treated with this. Review of records in [facility] does not reveal a diagnosis of hemochromatosis Fe 44 ferritin 119 Assessment & Plan (05/11/2024 8:30 PM EST): Pt Reports history of hemochromatosis. She denies having had any phlebotomy for this though family members have been treated with this. Review of records in [facility] does not reveal a diagnosis of hemochromatosis Fe 44 ferritin 119 Assessment & Plan (05/10/2024 2:19 PM EST): Pt Reports history of hemochromatosis. She denies having had any phlebotomy for this though family members have been treated with this. Review of records in [facility] does not reveal a diagnosis of hemochromatosis Fe 44 ferritin 119 Assessment & Plan (05/09/2024 10:35 AM EST): Pt Reports history of hemochromatosis. She denies having had any phlebotomy for this though family members have been treated with this. Review of records in [facility] does not reveal a diagnosis of hemochromatosis Fe 44 ferritin 119 Assessment & Plan (05/08/2024 6:41 PM EST): Pt Reports history of hemochromatosis. She denies having had any phlebotomy for this though family members have been treated with this. Review of records in [facility] does not reveal a diagnosis of hemochromatosis Fe 44 ferritin 119 Assessment & Plan (05/07/2024 4:54 PM EST): Pt Reports history of hemochromatosis. She denies having had any phlebotomy for this though family members have been treated with this. Review of records in [facility] does not reveal a diagnosis of hemochromatosis This week iron panel checked, Fe 44 ferritin 119 Assessment & Plan (05/06/2024 10:20 AM EST): Pt Reports history of hemochromatosis. She denies having had any phlebotomy for this though family members have been treated with this. Review of records in [facility] does not reveal a diagnosis of hemochromatosis This week iron panel checked, Fe 44 ferritin 119 Assessment & Plan (05/05/2024 4:47 PM EST): Pt Reports history of hemochromatosis. She denies having had any phlebotomy for this though family members have been treated with this. Review of records in [facility] does not reveal a diagnosis of hemochromatosis This week iron panel checked, Fe 44 ferritin 119 Assessment & Plan (05/04/2024 1:00 PM EST): Pt Reports history of hemochromatosis. She denies having had any phlebotomy for this though family members have been treated with this. Review of records in [facility] does not reveal a diagnosis of [...] managed medically but in May admitted to [facility] with sbo but failed conservative treatment, transferred from [facility] to [facility].CT with partial SBO with multifocal stricturing , and foci concerning for carcinomatosis At [facility] Underwent diagnostic laparoscopy, no visual evidence cancer.per [...] sent for path, no cancer) Presented to [facility] ED 08/13 with several days of abdominal pain. Also reported vomiting CT showed small bowel obstruction with transition point involving distal small bowel loops in the pelvis, cirrhotic liver with small volume ascites [facility] surgeon contacted, said patient could transfer but pt declined. Patient seen by [facility] surgeon. Admitted w/ conservative treatment [...] managed medically but in May admitted to [facility] with sbo but failed conservative treatment, transferred from [facility] to [facility].CT with partial SBO with multifocal stricturing , and foci concerning for carcinomatosis At [facility] Underwent diagnostic laparoscopy, no visual evidence cancer.per [...] sent for path, no cancer) Presented to [facility] ED 08/13 with several days of abdominal pain. Also reported vomiting CT showed small bowel obstruction with transition point involving distal small bowel loops in the pelvis, cirrhotic liver with small volume ascites [facility] surgeon contacted, said patient could transfer but pt declined. Patient seen by [facility] surgeon. Admitted w/ conservative treatment [...] managed medically but in May admitted to [facility] with sbo but failed conservative treatment, transferred from [facility] to [facility].CT with partial SBO with multifocal stricturing , and foci concerning for carcinomatosis At [facility] Underwent diagnostic laparoscopy, no visual evidence cancer.per [...] sent for path, no cancer) Presented to [facility] ED 08/13 with several days of abdominal pain. Also reported vomiting CT showed small bowel obstruction with transition point involving distal small bowel loops in the pelvis, cirrhotic liver with small volume ascites [facility] surgeon contacted, said patient could transfer but pt declined. Patient seen by [facility] surgeon. Admitted w/ conservative treatment [...] managed medically but in May admitted to [facility] with sbo but failed conservative treatment, transferred from [facility] to [facility].CT with partial SBO with multifocal stricturing , and foci concerning for carcinomatosis At [facility] Underwent diagnostic laparoscopy, no visual evidence cancer.per [...] sent for path, no cancer) Presented to [facility] ED 08/13 with several days of abdominal pain. Also reported vomiting CT showed small bowel obstruction with transition point involving distal small bowel loops in the pelvis, cirrhotic liver with small volume ascites [facility] surgeon contacted, said patient could transfer but pt declined. Patient seen by [facility] surgeon. Admitted w/ conservative treatment [...] managed medically but in May admitted to [facility] with sbo but failed conservative treatment, transferred from [facility] to [facility].CT with partial SBO with multifocal stricturing , and foci concerning for carcinomatosis At [facility] Underwent diagnostic laparoscopy, no visual evidence cancer.per [...] sent for path, no cancer) Presented to [facility] ED 6 with several days of abdominal pain. Also reported vomiting CT showed small bowel obstruction with transition point involving distal small bowel loops in the pelvis, cirrhotic liver with small volume ascites [facility] surgeon contacted, said patient could transfer but pt declined. Patient seen by [facility] surgeon. Admitted w/ conservative treatment [...] managed medically but in May admitted to [facility] with sbo but failed conservative treatment, transferred from [facility] to [facility].CT with partial SBO with multifocal stricturing , and foci concerning for carcinomatosis At [facility] Underwent diagnostic laparoscopy, no visual evidence cancer.per [...] sent for path, no cancer) Presented to [facility] ED 08/13 with several days of abdominal pain. Also reported vomiting CT showed small bowel obstruction with transition point involving distal small bowel loops in the pelvis, cirrhotic liver with small volume ascites [facility] surgeon contacted, said patient could transfer but pt declined. Patient seen by [facility] surgeon. Admitted w/ conservative treatment [...] managed medically but in May admitted to [facility] with sbo but failed conservative treatment, transferred from [facility] to [facility].CT with partial SBO with multifocal stricturing , and foci concerning for carcinomatosis At [facility] Underwent diagnostic laparoscopy, no visual evidence cancer.per [...] sent for path, no cancer) Presented to [facility] ED 6/5 with several days of abdominal pain. Also reported vomiting CT showed small bowel obstruction with transition point involving distal small bowel loops in the pelvis, cirrhotic liver with small volume ascites [facility] surgeon contacted, said patient could transfer but pt declined. Patient seen by [facility] surgeon. Admitted w/ conservative treatment [...] managed medically but in May admitted to [facility] with sbo but failed conservative treatment, transferred from [facility] to [facility].CT with partial SBO with multifocal stricturing , foci concerning for carcinomatosis At [facility] Underwent diagnostic laparoscopy, no cancer.. 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 Surgeon did not intervene at all.. At that time also had cystoscopy and placement of ureteral stents. Since removed Presented to [facility] ED 6/5 with several days of abdominal pain. Also reported vomiting CT showed small bowel obstruction with transition point involving distal small bowel loops in the pelvis, cirrhotic liver with small volume ascites [facility] surgeon contacted, said patient could transfer but pt declined. Patient seen by [facility] surgeon. Admitted w/ conservative treatment [...] in May failed conservative treatment, transferred from [facility] to [facility]. CT with partial SBO with multifocal stricturing , foci concerning for carcinomatosis Underwent diagnostic laparoscopy, no cancer.. 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 Surgeon did not intervene at all.. At that time also had cystoscopy and placement of ureteral stents. Presented to [facility] ED 08/13 with several days of abdominal pain. Also reported vomiting CT showed small bowel obstruction with transition point involving distal small bowel loops in the pelvis, cirrhotic liver with small volume ascites [facility] surgeon contacted, felt patient could transfer but pt declined. Patient seen by [facility] surgeon. Admitted. Plan for conservative [...] and cystoscopy placement with ureteral stent at [facility] in May for recurrent small bowel obstruction. [...] that they felt she could stay at [facility] Plan Bowel rest Surgical consult initiated in the emergency department IV fluid Follow labs vital signs and serial exams Antiemetics analgesics [id number] surgeon felt patient could transfer but she [...] transfer for surgical management. Call out to [facility] transfer line, requesting facility [...] Plan (08/22/2024 11:53 AM EDT): Sees a order takers supervisor regularly. Has an appointment scheduled soon Assessment & Plan (08/21/2024 9:17 AM EDT): Sees a order takers supervisor regularly. Has an appointment scheduled soon Assessment & Plan (08/20/2024 1:01 PM EDT): Sees a order takers supervisor regularly. Has an appointment scheduled soon Assessment & Plan (08/19/2024 4:10 PM EDT): Sees a order takers supervisor regularly. Has an appointment scheduled soon Assessment & Plan (08/18/2024 3:17 PM EDT): Sees a order takers supervisor regularly. Has an appointment scheduled soon Assessment & Plan (08/17/2024 3:45 PM EDT): Sees a order takers supervisor regularly. Has an appointment scheduled soon Assessment & Plan (08/16/2024 12:50 PM EDT): Sees a order takers supervisor regularly. Has an appointment scheduled soon Assessment [...] have gastritis on her EGD done at [place] recently. She says the epigastric discomfort is not new Assessment & Plan (02/27/2024 6:24 PM EST): Continue pantoprazole 40 mg twice daily, added sucralfate. Patient complains of some epigastric discomfort. She did have gastritis on her EGD done at [place] recently. She says the epigastric discomfort is not new Assessment & Plan (02/26/2024 10:40 PM EST): Continue pantoprazole 40 mg twice daily, added sucralfate. Patient complains of some epigastric discomfort. She did have gastritis on her EGD done at [place] recently. She says the epigastric discomfort is not new Assessment & Plan (02/25/2024 3:29 PM EST): Continue pantoprazole 40 mg twice daily, added sucralfate. Patient complains of some epigastric discomfort. She did have gastritis on her EGD done at [place] recently. She says the epigastric discomfort is [...] 08/14/2024 Insurance MEDICARE PART A & B [facility] MEDICARE PART A & B [place] [facility] [place] [facility] PART A & B [facility] A & B [id number] [place] [address] MEDICARE PART A & B [facility] & B [employer] MEDICARE PART A & B [facility] Advance Directives For more information, please contact: [phone] (9AM - 5PM [place], Saturday-Saturday) * Full Code (Latest Code Status [...] Status Communicated To: Inpatient Attending Care Teams Route Cdl Driver Relationship Specialty Start Date End Date Catie Isabel NP [address] [place] [address] PCP - General Nurse Practitioner 02/22/24 Additional Source Comments The information contained in this document represents components of the legal health record. It is not the complete legal health record.[facility]
--- OUTSIDE RECORDS SUMMARY | 2025-03-01 17:29 | XMS_ITS | Encounter Summary ---
Author Organization [facility] Address [address] [place] [address] Phone Care Team Providers Care Char Filter Operator Helper Name Role Phone Catie Isabel HEAD OF MARKETING ANALYTICS Primary Care Provider +1- [phone] Encounter Details Date Type Department Care Team (Late st Contact Info) Description 08/13/2024 Procedure Pass [facility], Ct Scan - [address] [address] Social History Tobacco Use Types Packs/Day Years [...] documented as of this encounter Care Teams Char Filter Operator Helper Relationship Specialty Start Date End Date Catie Isabel NP [address] [place] [id number] PCP - General Nurse Practitioner 02/22/24 documented as of this encounter Additional Source Comments The information contained in this document represents components of the legal health record. It is not the complete legal health record.[facility]
--- OUTSIDE RECORDS SUMMARY | 2025-03-01 17:30 | XMS_ITS | Encounter Summary ---
Author Organization [facility] Address [address] [place] [phone] Phone Care Team Providers Care Collar Sewer Name Role Phone Catie Isabel FIRE COORDINATOR Primary Care Provider +1- [phone] Encounter Details Date Type Department Care Team (Late st Contact Info) Description 04/28/2024 Procedure Pass [facility], Ct Scan - [address] [address] Social History Tobacco Use Types Packs/Day Years [...] documented as of this encounter Care Teams Collar Sewer Relationship Specialty Start Date End Date Catie Isabel NP [address] [place] [id number] PCP - General Nurse Practitioner 02/22/24 documented as of this encounter Additional Source Comments The information contained in this document represents components of the legal health record. It is not the complete legal health record.[facility]
--- OUTSIDE RECORDS SUMMARY | 2025-03-01 17:30 | XMS_ITS | Encounter Summary ---
Author Organization [facility] Address [address] [place] [phone] Phone Care Team Providers Care Developmental Psychologist Name Role Phone Catie Isabel CNC OPERATOR PROGRAMMER Primary Care Provider +1- [phone] Encounter Details Date Type Department Care Team (Late st Contact Info) Description 04/17/2024 Procedure Pass [facility] Endoscopy Admitting Dept Virtual Department [address] [place] [id number] Social History Tobacco Use Types Packs/Day Years [...] documented as of this encounter Care Teams Developmental Psychologist Relationship Specialty Start Date End Date Catie Isabel NP [address] [place] [address] PCP - General Nurse Practitioner 02/22/24 documented as of this encounter Additional Source Comments The information contained in this document represents components of the legal health record. It is not the complete legal health record.[facility]
--- OUTSIDE RECORDS SUMMARY | 2025-03-01 17:30 | XMS_ITS | Encounter Summary ---
Author Organization [facility] Address [address] [facility] [address] [place] [address] Phone Care Team Providers Care Social Service Assistant Name Role Phone Catie Isabel ARTIFICIAL FLOWER MAKER Primary Care Provider [phone]- [phone] Encounter Details Date Type Department Care Team (Late st Contact Info) Description 05/14/2024 Procedure Pass [facility] Cardiac Ultrasound [address] [place] [address] Social History Tobacco Use Types Packs/Day Years [...] documented as of this encounter Care Teams Social Service Assistant Relationship Specialty Start Date End Date Catie Isabel NP [address] [place] [address] PCP - General Nurse Practitioner 02/22/24 documented as of this encounter Additional Source Comments The information contained in this document represents components of the legal health record. It is not the complete legal health record.[facility]
--- OUTSIDE RECORDS SUMMARY | 2025-03-01 17:30 | XMS_ITS | Encounter Summary ---
Author Organization [facility] Address [address] [place] [address] Care Team Providers Care Knife Setter Assembler Name Role Phone Catie Isabel SOFTWARE CONSULTANT Primary Care Provider Reason for Visit * Reason Onset Date Comments Info Needed 02/24/2025 Encounter Details Date Type Department Care Team ([facility] Contact Info) Description 02/24/2025 Telephone Internal Medicine - [facility] [address] [place], [place] [phone] Catie Isabel NP [address] [place] [address] Social History Tobacco Use Types Packs/Day Years [...] as of this encounter Progress Notes * Mary Jo Patel MA - 02/26/2025 9:26 AM EST Msg left for pt to return my call. * Lucille Aviles MA - 02/25/2025 8:41 AM EST Attempted to contact pt / no answer Lm to cb. Pt has 2 messages to be addressed. * Colette Palma LPN - 02/24/2025 2:56 PM EST Left message on Lumora. Please re-message to Message Pool * Adan Del Castillo - 02/24/2025 1:48 PM EST Caller requesting call back from provider: Is the caller the patient? YES If caller is not the patient, what is the callers name? N/A Callers relationship to patient? N/A If person calling is not the patient themselves, is there a verbal release in FYI or permanent comments for this person: NO Reason for call back: pt asking if Catie has ever referred her to a Amortization Clerk. 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
--- OUTSIDE RECORDS SUMMARY | 2025-03-01 17:30 | XMS_ITS | Encounter Summary ---
Author Organization [facility] Address [address] [place] [address] Care Team Providers Care Veterinary Medical Officer Name Role Phone Catie Isabel GROCERY STORE MANAGER Primary Care Provider [phone] Reason for Visit * Reason Onset Date Comments Lab Results 02/24/2025 Pt does not have MyChart. Please call her [phone] Encounter Details Date Type Department Care Team ([facility] Contact Info) Description 02/24/2025 Telephone Internal Medicine - [facility] [address] [place] [address] Catie Isabel NP [address] [place] [address] Social History Tobacco Use Types Packs/Day Years [...] call. * Lucille Aviles MA - 02/25/2025 8:43 AM EST Attempted to contact pt / no answer Lm to cb Pt has 2 messages to be addressed. * Colette Palma LPN - 02/24/2025 2:52 PM EST Left message on [employer]. Please re-message to Message Pool * Adan Del Castillo - 02/24/2025 1:41 PM EST nInform patient: ANY URGENT OR ABNORMAL RESULTS WIILL RESULT IN A CALL BACK TO THE PATIENT KLAUDIA. Pt does not have MyChart. Please call her [phone] Type of test: :labs Date test was performed: 02-17-25 Where was the test performed: [address] [facility] Who ordered this test?: Catie Isabel Is the doctor here today?: Yes Can the message wait until the doctor returns?: no IF PATIENT'S PCP IS NOT IN INSTRUCT PATIENT THAT THEY WILL RECEIVE A CALL BACK WHEN THE PCP IS IN THE OFFICE NEXT. Pt does not have MyChart. 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
--- OUTSIDE RECORDS SUMMARY | 2025-03-01 17:30 | XMS_ITS | Encounter Summary ---
Author Organization [facility] Address [address] [facility] [address] [place] [address] Phone Care Team Providers Care Court Worker Name Role Phone Catie Isabel ROTARY CUTTER FEEDER Primary Care Provider [phone] Encounter Details Date Type Department Care Team (Late st Contact Info) Description 05/14/2024 Procedure Pass [facility] Emergency Imaging, Main [address] [place] [address] Social History Tobacco Use Types Packs/Day Years [...] documented as of this encounter Care Teams Court Worker Relationship Specialty Start Date End Date Catie Isabel NP [address] [place] [address] PCP - General Nurse Practitioner 02/22/24 documented as of this encounter Additional Source Comments The information contained in this document represents components of the legal health record. It is not the complete legal health record.[facility]
--- OUTSIDE RECORDS SUMMARY | 2025-03-01 17:30 | XMS_ITS | Encounter Summary ---
Author Organization [facility] Address [address] [facility] [address] [place] [address] Phone Care Team Providers Care Surveyor Geophysical Prospecting Name Role Phone Catie Isabel PEARL STRINGER Primary Care Provider [phone] Encounter Details Date Type Department Care Team (Late st Contact Info) Description 05/14/[address] [facility] [address], [address] [facility], [address]th [place] [address] Social History Tobacco Use Types Packs/Day Years [...] documented as of this encounter Care Teams Surveyor Geophysical Prospecting Relationship Specialty Start Date End Date Catie Isabel NP [address] [place] [address] PCP - General Nurse Practitioner 02/22/24 documented as of this encounter Additional Source Comments The information contained in this document represents components of the legal health record. It is not the complete legal health record.[facility]
--- OUTSIDE RECORDS SUMMARY | 2025-03-01 17:30 | XMS_ITS | Encounter Summary ---
Author Organization [facility] Address [address] [place] [address] Care Team Providers Care Correctional Probation Officer Name Role Phone Catie Isabel NP Primary Care Provider [phone] Encounter Details Date Type Department Care Team (Late Contact Info) Description 02/18/2025 Results Follow-Up Gastroenterology - [address] [id number] Lori Vicente NP [address] [address] Social History Tobacco Use Types Packs/Day Years [...] as of this encounter Progress Notes * Richelle Yan MA - 02/18/2025 1:59 PM EST Patient informed. 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
--- OUTSIDE RECORDS SUMMARY | 2025-03-01 17:30 | XMS_ITS | Encounter Summary ---
Author Organization [facility] Address [address] [place] [address] Care Team Providers Care Fitness Sales Associate Name Role Phone Catie Isabel NP Primary Care Provider [phone] Encounter Details Date Type Department Care Team (Late st Contact Info) Description 02/18/2025 Results Follow-Up Internal Medicine - [facility] [address] [place], [place] [address] [place] [address] Xochitl Degroot [place] Social History Tobacco Use [...] as of this encounter Progress Notes * Catie Isabel NP - 02/19/2025 10:53 AM EST My chart message sent. documented in this encounter Plan of Treatment Upcoming Encounters Date Type Department Care Team (Late st Contact Info) Description 05/18/2025 2:30 PM EDT Office Visit Internal Medicine - [facility] [address] 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
--- OUTSIDE RECORDS SUMMARY | 2025-03-01 17:30 | XMS_ITS | Encounter Summary ---
Author Organization [facility] Address [address] [address] Phone Care Team Providers Care Business Programmer Name Role Phone Catie Isabel BONDING EQUIPMENT OPERATOR Primary Care Provider [phone] Encounter Details Date Type Department Care Team (Late st Contact Info) Description 06/04/2024 Procedure Pass [facility] Endoscopy Admitting Dept Virtual Department [address] [place] [address] Social History Tobacco Use Types Packs/Day Years [...] documented as of this encounter Care Teams Business Programmer Relationship Specialty Start Date End Date Catie Isabel NP [address] [place] [address] PCP - General Nurse Practitioner 02/22/24 documented as of this encounter Additional Source Comments The information contained in this document represents components of the legal health record. It is not the complete legal health record.[facility]
--- OUTSIDE RECORDS SUMMARY | 2025-03-01 17:30 | XMS_ITS | Encounter Summary ---
Author Organization [facility] Address [address] [place] [address] Care Team Providers Care Aprn Name Role Phone Catie Isabel IT TELECOM TECHNICIAN Primary Care Provider [phone] Reason for Visit * Reason Onset Date Comments Nausea 01/25/2025 Encounter Details Date Type Department Care Team ([facility] Contact Info) Description 01/25/2025 Telephone Internal Medicine - [facility] [address] [place], [place] [phone] Catie Isabel NP [address] [place] [address] Social History Tobacco Use Types Packs/Day Years [...] Progress Notes * Cecile Beasley RN - 01/27/2025 8:46 AM EST 3 rd attempt to contact patient reached VM please re message * Cecile Beasley RN - 01/26/2025 9:38 AM EST 2 nd attempt to contact patient reached VM please re message * Pema Schreiber RN - 01/25/2025 2:35 PM EST Attempted to call pt;[facility] for phone triage. * Kim Davis - 01/25/2025 2:09 PM EST Patient call requires triage: Symptoms patient is presenting: nauseous, would like some meds Pt came into office thought she had an appt w pcp How long has patient had these symptoms?: long time For ALL patients calling to schedule any [...] traveled recently to another state outside of [place], [place], [place], [place], [place], [place], [place]? no o If yes, did you quarantine [...] of accident/Injury: No If yes, gather 3rd green party insurance information Third Green Party Information: not applicable PCP: Catie Isabel NP Payor: MEDICARE / Plan: MEDICARE PART A & B / Product Type: Medicare / documented in this encounter Plan of Treatment Upcoming Encounters Date Type Department Care Team (Late st Contact Info) Description 05/18/2025 2:30 PM EDT Office Visit Internal Medicine - [facility] [address] [place], [place] [phone] Catie Isabel NP [address] [place] [address] documented as of this encounter Visit Diagnoses Not on filedocumented in this encounter Additional Health Concerns Infection Onset Date Last Indicated Resolved Time Gastrointestinal Rule-Out 02/17/2025 02/17/2025 8:04 PM EST 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
--- OUTSIDE RECORDS SUMMARY | 2025-03-01 17:30 | XMS_ITS | Encounter Summary ---
Author Organization [facility] Address [address] [place] [address] Phone Care Team Providers Care Order Entry Administrator Name Role Phone Catie Isabel M48 M60 ARMOR CREWMAN Primary Care Provider [phone] Encounter Details Date Type Department Care Team (Late st Contact Info) Description 02/24/2024 Procedure Pass [facility] Endoscopy Admitting Dept Virtual Department [address] [place] [address] Social History Tobacco Use Types Packs/Day Years [...] documented as of this encounter Care Teams Order Entry Administrator Relationship Specialty Start Date End Date Catie Isabel NP [address] [place] [address] PCP - General Nurse Practitioner 02/22/24 documented as of this encounter Additional Source Comments The information contained in this document represents components of the legal health record. It is not the complete legal health record.[facility]
--- OUTSIDE RECORDS SUMMARY | 2025-03-01 17:30 | XMS_ITS | Encounter Summary ---
Author Organization [facility] Address [address] [address] Phone Care Team Providers Care Bank Reconciliator Name Role Phone Catie Isabel MANAGER FIELD INVESTIGATIONS Primary Care Provider [phone] Encounter Details Date Type Department Care Team (Late st Contact Info) Description 05/13/2024 Procedure Pass [facility] [address] [place] [address] Social History Tobacco Use Types Packs/Day Years [...] documented as of this encounter Care Teams Bank Reconciliator Relationship Specialty Start Date End Date Catie Isabel NP [address] [place] [address] PCP - General Nurse Practitioner 02/22/24 documented as of this encounter Additional Source Comments The information contained in this document represents components of the legal health record. It is not the complete legal health record.[facility]
--- OUTSIDE RECORDS SUMMARY | 2025-03-01 17:30 | XMS_ITS | Clinical Summary ---
Author Organization [place] [address] [facility] Address [address] [place], [place] [address], [place] [address] Phone Care Team Providers Care Director Of Vendor Management Name Role Phone Catie Isabel NP Primary Care Provider Allergies Active Allergy Reactions Criticality Noted Date Comments Diatrizoate Rebeka-Diatrizoat Sod Other 05/22 unresponsive Medications Ventolin HFA 90 mcg/actuation inhaler Inhale 2 puffs by mouth 1 (one) time each day. 6.7 g 3 025 Active fluticasone furoate-vilantero L (Breo Ellipta) 200-25 mcg/dose inhalerIndication s:Chronic bronchitis, unspecified chronic bronchitis type (CMS/[facility] V24, CMS/[facility] V28) Inhale 1 puff by mouth 1 (one) time each day. 3 each 3 025 2025 Active ondansetron ODT (ZOFRAN-ODT) 4 mg disintegrating tabletIndications :SBO (small bowel obstruction) (CMS/HCC V24, CMS/[facility] V28) Dissolve 1 tablet (4 mg total) on top of the tongue every 8 (eight) hours if needed for nausea or vomiting. 20 tablet 025 Active ipratropium-albut Jarad (DUONEB) 0.5-2.5 mg/3 mL nebulizer solution TAKE 3 ML BY NEBULIZER EVERY 6 HOURS NEEDED FOR WHEEZE 360 mL 11 07/02/2 025 Active umeclidinium (Incruse Ellipta) 62.5 mcg/actuation inhalation Inhale 1 puff by mouth 1 (one) time each day. 1 each 2 Active castor oiL 100 % Take by mouth 1 (one) time each day if needed for constipation. Active pantoprazole (PROTONIX) 40 mg EC tablet Take 1 tablet (40 mg total) by mouth. Active predniSONE (DELTASONE) 10 mg tablet PLEASE [...] Daily Amount: 10 mg 56 tablet Active LORazepam (ATIVAN) 1 mg tablet Take 1 tablet (1 mg total) by mouth 2 (two) times a day if needed for anxiety. Max Daily Amount: 2 mg 56 tablet 2 2025 Active albuterol 2.5 mg /3 mL (0.083 %) nebulizer solution Take 3 mL (2.5 mg total) by nebulization every 6 (six) hours if needed for wheezing. 360 mL 11 2025 Active gabapentin (NEURONTIN) 300 mg capsule Take 1 capsule (300 mg total) by mouth 3 (three) times a day if needed (back pain). 90 capsule 3 Active cholecalciferol (Vitamin D3) 5,000 Units tablet Take 1 tablet (5,000 Units total) by mouth 1 (one) time each day. 30 each 2 025 2025 Active gabapentin (NEURONTIN) 300 mg capsule Take 1 capsule (300 mg total) by mouth 3 (three) times a day if needed (back pain). 025 2024 Discontin ued(Reord er) azithromycin (Zithromax) 500 mg tablet Take 2 tablets (1,000 mg total) by mouth 1 (one) time each day for 1 day, THEN 1 tablet (500 mg total) 1 (one) time each day for 3 days. 5 each 025 2024 Active Problems Problem Noted Date Diagnosed Date Secondary esophageal varices without bleeding Portal hypertensive gastropathy 12/09/2024 Bowel incontinence 09/18/2024 Pelvic pain 09/18/2024 Disorder of rotator cuff 09/18/2024 Hypovitaminosis D 09/18/2024 Obesity 09/18/2024 Skin excoriation 09/18/2024 PMB (postmenopausal bleeding) 09/18/2024 Vaginal bleeding 09/18/2024 Vulvar itching 09/18/2024 IPMN (intraductal papillary mucinous neoplasm) 0 08/15/2024 Cirrhosis 08/14/2024 Shingles 08/13/2024 Interstitial lung disease 07/20/2024 Recurrent intestinal obstruction 07/20/2024 Anemia 04/29/2024 Hyponatremia 02/22/2024 Primary osteoarthritis involving multiple joints 10/09/2023 Primary osteoarthritis of right shoulder 024 Anxiety 10/01/2023 Allergic rhinitis 09/24/2018 Aortic atherosclerosis 09/24/2018 Diverticulosis 09/24/2018 Elevated LFTs 09/24/2018 GERD (gastroesophageal reflux disease) 9 Hemochromatosis, hereditary 09/24/2018 Hypertension 09/24/2018 IBS (irritable bowel syndrome) [...] Overview (09/18/2024): IMO 2016 R2.1 update change Resolved Problems Problem Noted Date Diagnosed Date Resolved Date Carcinoma of vagina 12/10/2024 02/18/20 25 History of cancer of vagina 09/18/2024 02/17/2025 Encounters Date Type Department Care Team Description 02/24/2025 Telephone Internal [facility] - [facility] [address] [place], [place] [phone] Catie Isabel NP 02/24/2025 Telephone Internal Medicine - [facility] [address] [place], [place] [phone] Catie Isabel NP 02/18/2025 Telephone Internal Medicine - [facility] [address] [place], [place] [phone] Catie Isabel NP 02/18/2025 Results Follow-Up Gastroenterology - [address] [place] [phone] Lori Vicente NP 02/18/2025 Results Follow-Up Internal Medicine - [facility] [address] [place], [place] [phone] Xochitl Degroot [place] 02/17/2025 3:35 PM EST Lab Draw Station - [place] [address] [place], [place] Long-term use of high-risk medication; Elevated LFTs; Hepatic cirrhosis, unspecified hepatic cirrhosis type, unspecified whether ascites present (CMS/HCC V24, CMS/HCC V28); JUAN (nonalcoholic steatohepatitis); Diarrhea, unspecified type; Generalized abdominal pain; Small intestinal fungal overgrowth 02/17/2025 2:45 PM EST Office Visit Internal Medicine - [address] [phone] Catie Isabel NP Interstitial lung disease (CMS/HCC V24, CMS/HCC V28) (Primary Dx); Long-term use of high-risk medication; Hepatic cirrhosis, unspecified hepatic cirrhosis type, unspecified whether ascites present (CMS/HCC V24, CMS/HCC V28); JUAN (nonalcoholic steatohepatitis); Elevated LFTs; Gastroesophageal reflux disease without esophagitis; Hypovitaminosis D; Polyarthralgia; Anxiety 01/25/2025 [facility] [phone] Catie Isabel NP 01/21/2025 Telephone Gastroenterology [facility] 175 [facility] [address] [place] [phone] Lori Vicente NP 01/21/2025 Telephone Internal Medicine - [address] [phone] Catie Isabel NP 01/20/2025 [facility] [address] [phone] Catie Isabel NP 01/20/2025 Telephone Internal Medicine - [address] [phone] Catie Isabel NP 01/18/2025 Telephone Internal Medicine - [address] [phone] Catie Isabel NP 01/18/2025 Telephone Internal Medicine - [address] [phone] Catie Isabel NP 01/04/2025 Telephone Internal Medicine - [address] [phone] Catie Isabel NP 12/18/2024 Telephone Internal Medicine - [address] [phone] Catie Isabel NP 12/09/2024 2:30 PM EDT Office Visit Internal Medicine - [address] [phone] Catie Isabel NP Primary osteoarthritis involving multiple joints (Primary Dx); Interstitial lung disease (CMS/HCC V24, CMS/HCC V28); Recurrent intestinal obstruction (CMS/HCC V24, CMS/HCC V28); Hepatic cirrhosis, unspecified hepatic cirrhosis type, unspecified whether ascites present (CMS/HCC V24, CMS/HCC V28); History of cancer of vagina 12/02/2024 12:30 PM EDT Anesthesia Event [facility] [address] [place] [phone] Phil Scanlon MD Hayes, Brett L, STEVIE 12/02/2024 11:20 AM EDT - 12/02/2024 11:59 PM EDT Hospital Encounter [facility] [address] [place] [phone] Charles Steinberg MD Hayes, Brett L, Phil Box MD Abnormal CT of the abdomen Discharge Disposition: Home or Self Care 12/01/2024 Telephone Internal Medicine - [address] [phone] Catie Isabel NP 11/30/2024 Telephone Internal Medicine - [address] [phone] Catie Isabel NP from Last 3 Months [...] History Medical History Date Comments GERD (gastroesophageal reflu x disease) 09/24/2018 DX:GERD (gastroesophageal re flux disease) Hypertension 09/24/2018 DX:Hypertension Tubular adenoma 09/24/2018 [...] 1985 Allergic rhinitis 09/24/2018 DX:Allergic rh initis Interstitial lung disease (C MS/HCC V24, CMS/HCC V28) History of cancer of vagina 09/18/2024 Family History Medical History Relation Name Comments [...] Orientation Straight 09/08/2024 3: 52 PM EDT Last Filed Vital Signs Vital Sign Reading Time Taken Comments Blood Pressure 108/74 02/17/2025 3:02 PM EST A Pulse 98 02/17/2025 3:02 PM EST Temperature 36.2 C (97.2 F) 12/02/2024 12:14 PM EDT Respiratory Rate 18 12/02/2024 12:59 PM EDT Oxygen Saturation 97% 12/02/2024 12:59 PM EDT Inhaled Oxygen Concentration - - Weight 64 kg (141 lb) 02/17/2025 3:02 PM EST Height 157.5 cm (5' 2 ) 02/17/2025 3:02 PM EST Body Mass Index 25.79 02/17/2025 3:02 PM EST Plan of Treatment Upcoming Encounters Date Type Department Care Team (Late st Contact Info) Description 05/18/2025 2:30 PM EDT Office Visit Internal Medicine - [facility] [address] [place], [place] [phone] Catie Isabel NP [address] [place], [place] Health Maintenance Due Date Last Done Comments Naloxone Order 1950 Non-Opioid Controlled Substance Agreement 1948 Opioid Substance Agreement 1948 Pain Assessment 1948 COVID-19 Vaccine (#1) 1953 DTaP,Tdap,and Td Vaccines [...] Patients (1 - 1-dose 75+ series) 2023 Influenza Vaccine (#1) 2024 Medicare Annual Wellness Visit 01/15/2025 01/16/2024 Falls Risk Assessment 12/02/2025 12/02/2024, 024 Drug Screen 02/17/2026 02/17/2025 Hypertension/CHF/CAD Annual BMP Blood Test 02/17/2026 02/17/2025, 10/12/2024, 08/14/2024, Additional history exists Colorectal Cancer Screening: Colonoscopy 10/27/2028 10/28/2023 Hepatitis C Screening Completed 08/05/2024 Depression Screening Completed 02/17/2025 HIB Vaccines Aged Out No longer eligi [...] Procedure Name Priority Date/Time Associated Diagnosis Comments GASTROINTESTINAL PATHOGENS BY PCR Routine 02/17/2025 3:54 PM EST Diarrhea, unspecified type Generalized abdominal pain Small intestinal fungal overgrowth CBC WITH AUTO DIFFERENTIAL Routine 02/17/2025 3:40 PM EST Hepatic cirrhosis, unspecified hepatic cirrhosis type, unspecified whether ascites present (CMS/HCC V24, CMS/HCC V28) JUAN (nonalcoholic steatohepatitis) CBC AND DIFFERENTIAL Routine 02/17/2025 3:40 PM EST Hepatic cirrhosis, unspecified hepatic cirrhosis type, unspecified whether ascites present (CMS/HCC V24, CMS/HCC V28) JUAN (nonalcoholic steatohepatitis) COMPREHENSIVE METABOLIC PANEL Routine 02/17/2025 3:40 PM EST Elevated LFTs DRUG ABUSE SCREEN 8A PANEL, URINE Routine 02/17/2025 3:40 PM EST Long-term use of high-risk medication EGD Routine 12/02/2024 12:[address] of the abdomen HEPATITIS C ANTIBODY Routine 08/05/2024 2:25 PM EDT History of cirrhosis of liver HM COLONOSCOPY Routine 10/28/2023 from Last 3 Months or Most Recently Relevant to Health Maintenance Results * (ABNORMAL) Gastrointestinal pathogens molecular study (02/17/2025 3:54 PM EST) Campylobacter Detection by PCR Not Detected Not Detected LAB MICROBIOLOGY METHOD 5 8:04 PM [facility] Plesiomonas shigelloides Detection by PCR Not Detected Not Detected LAB MICROBIOLOGY METHOD 5 8:04 PM [facility] Salmonella Detection by PCR Not Detected Not Detected LAB MICROBIOLOGY METHOD 5 8:04 PM [facility] Vibrio Detection by PCR Not Detected Not Detected LAB MICROBIOLOGY METHOD 5 8:04 PM [facility] Vibrio cholerae Detection by PCR Not Detected Not Detected LAB MICROBIOLOGY METHOD 5 8:04 PM [facility] Yersinia enterocolitica Detection by PCR Not Detected Not Detected LAB MICROBIOLOGY METHOD 5 8:04 PM [facility] Enteroaggregative E coli EAEC Detection by PCR Detected(A ) Not Detected LAB MICROBIOLOGY METHOD 5 8:04 PM [facility] Enteropathogenic E coli EPEC Detection Not Detected Not Detected LAB MICROBIOLOGY METHOD 5 8:04 PM [facility] Enterotoxigenic E coli ETEC LTST Detection Not Detected Not Detected LAB MICROBIOLOGY METHOD 5 8:04 PM [facility] Shiga-like toxin producing E coli STEC STX1 STX2 Det Not Detected Not Detected LAB MICROBIOLOGY METHOD 5 8:04 PM [facility] Shigella Enteroinvasive E coli EIEC Detection Not Detected Not Detected LAB MICROBIOLOGY METHOD 5 8:04 PM [facility] Cryptosporidium Detection by PCR Not Detected Not Detected LAB MICROBIOLOGY METHOD 5 8:04 PM [facility] Cyclospora cayetanensis Detection by PCR Not Detected Not Detected LAB MICROBIOLOGY METHOD 5 8:04 PM [facility] Entamoeba histolytica Detection by PCR Not Detected Not Detected LAB MICROBIOLOGY METHOD 5 8:04 PM [facility] Giardia lamblia Detection by PCR Not Detected Not Detected LAB MICROBIOLOGY METHOD 5 8:04 PM [facility] Adenovirus F 40 41 Detection by PCR Not Detected Not Detected LAB MICROBIOLOGY METHOD 5 8:04 PM [facility] Astrovirus Detection by PCR Not Detected Not Detected LAB MICROBIOLOGY METHOD 5 8:04 PM [facility] Norovirus GI GII Detection by PCR Not Detected Not Detected LAB MICROBIOLOGY METHOD 5 8:04 PM [facility] Sapovirus Detection by PCR Not Detected Not Detected LAB MICROBIOLOGY METHOD 5 8:04 PM [facility] Rotavirus A Detection by PCR Not Detected Not Detected LAB MICROBIOLOGY METHOD 8:04 PM [facility] Stool Rectum structure / Unknown Non-blood Collection / Unknown 02/17/2025 3:54 PM EST 02/17/2025 3:54 PM EST [facility] - 02/17/2025 8:04 PM EST PCR testing is much more sensitive than traditional techniques and allows for the detection of low numbers of stool pathogens. The clinical correlation of PCR results with the need for treatment and clinical outcomes has not been established. Therefore the results of PCR testing for stool pathogens must be taken into clinical context when making treatment decisions. This is a diagnostic test only, repeat testing for cure is not advised. You may consider infectious disease consult for additional guidance. Testing Performed by [facility] Lori Vicente NP LAB MICROBIOLOGY - GENERAL TIFFANIE AGUILAR Final Result [facility] [address] [place] [address], * (ABNORMAL) Drug abuse screen 8a panel, urine (02/17/2025 3:40 PM EST) Amphetamine Screen, Ur Negative Negative 02/17/2025 7:09 PM [facility] Comment:Certain OTC medicati ons containing ephedrine, phenylephrine, pseudoephedrine and phenylpropanolamine can cause false positive results. Barbiturate Screen, Ur Negative Negative 02/17/2025 7:09 PM [facility] Benzodiazepine Screen, Ur Negative Negative 02/17/2025 7:09 PM [facility] Cocaine Screen, Ur Negative Negative 2024 7:09 PM [facility] Opiate Screen, Ur Positive(A ) Negative 02/17/2025 7:09 PM [facility] Cannabinoid (THC) Screen, Ur Negative Negative 02/17/2025 7:09 PM [facility] Comment:Specimens from patie nts taking pantoprazole sodium (Protonix) have been shown to produce false positive results. Oxycodone Screen, Ur Positive(A ) Negative 02/17/2025 7:09 PM [facility] Fentanyl, Ur Negative Negative 02/17/2025 7:09 PM [facility] Urine Urine specimen obtained by clean catch procedure / Unknown Non-blood Collection / Unknown 02/17/2025 3:40 PM EST 02/17/2025 3:40 PM EST [facility] - 02/17/2025 7:09 PM EST Assay cutoffs: Amphetamines 1000 ng/mL Barbiturates 200 ng/mL Benzodiazepines 200 ng/mL Cocaine 300 ng/mL Fentanyl 1 ng/mL Opiates 300 ng/mL Oxycodone 100 ng/mL THC 50 ng/mL Semi-quantitative assay for screening purposes only. Unconfirmed screening result should not be used for non-medical purposes. *ALTERNATE METHOD CONFIRMATION DONE UPON REQUEST ONLY* Catie Isabel NP LAB URINE ORDERABLES Final Resu lt [facility] [address] [place] [address], * (ABNORMAL) CBC auto differential (02/17/2025 3:40 PM EST) WBC 5.8 4.8 - 10.8 K/mcL LAB HEMETOLOGY METHOD 02/17/2025 6:34 PM [facility] RBC 3.20(L) 3.80 - 4.80 M/mcL LAB HEMETOLOGY METHOD 02/17/2025 6:34 PM [facility] Hemoglobin 10.5(L) 11.5 - 16.0 g/dL LAB HEMETOLOGY METHOD 02/17/2025 6:34 PM [facility] Hematocrit 31.7(L) 35.0 - 47.0 % LAB HEMETOLOGY METHOD 02/17/2025 6:34 PM [facility] MCV 100.6(H) 79.0 - 98.0 FL LAB HEMETOLOGY METHOD 02/17/2025 6:34 PM [facility] MCH 33.3(H) 27.0 - 32.0 pcg LAB HEMETOLOGY METHOD 02/17/2025 6:34 PM [facility] MCHC 33.1 32.0 - 37.0 g/dL LAB HEMETOLOGY METHOD 02/17/2025 6:34 PM [facility] RDW 14.8 11.0 - 15.0 % LAB HEMETOLOGY METHOD 02/17/2025 6:34 PM [facility] Platelets 221 130 - 400 K/mcL LAB HEMETOLOGY METHOD 02/17/2025 6:34 PM [facility] MPV 9.2 7.0 - 11.0 FL LAB HEMETOLOGY METHOD 02/17/2025 6:34 PM [facility] NRBC 0.0 <1.0 % LAB HEMETOLOGY METHOD 02/17/2025 6:34 PM [facility] NRBC Absolute 0.00 <0.10 K/mcL LAB HEMETOLOGY METHOD 02/17/2025 6:34 PM [facility] Neutrophils Relative 71.0 % LAB HEMETOLOGY METHOD 02/17/2025 6:34 PM [facility] Lymphocytes Relative 16.3 % LAB HEMETOLOGY METHOD 02/17/2025 6:34 PM [facility] Monocytes Relative 10.2 % LAB HEMETOLOGY METHOD 02/17/2025 6:34 PM [facility] Eosinophils Relative 1.9 % LAB HEMETOLOGY METHOD 02/17/2025 6:34 PM [facility] Basophils Relative 0.3 % LAB HEMETOLOGY METHOD 02/17/2025 6:34 PM EST [facility] Immature Granulocytes Relative 0.3 % LAB HEMETOLOGY METHOD 02/17/2025 6:34 PM EST [facility] Neutrophils Absolute 4.08 1.50 - 7.00 K/mcL LAB HEMETOLOGY METHOD 02/17/2025 6:34 PM [facility] Lymphocytes Absolute 0.94(L) 1.00 - 5.00 K/mcL LAB HEMETOLOGY METHOD 02/17/2025 6:34 PM EST [facility] Monocytes Absolute 0.59 0.20 - 1.00 K/mcL LAB HEMETOLOGY METHOD 02/17/2025 6:34 PM [facility] Eosinophils Absolute 0.11 0.00 - 0.50 K/mcL LAB HEMETOLOGY METHOD 02/17/2025 6:34 PM [facility] Basophils Absolute 0.02 0.00 - 0.20 K/mcL LAB HEMETOLOGY METHOD 02/17/2025 6:34 PM EST [facility] Immature Granulocytes Absolute 0.02 0.00 - 0.03 K/mcL LAB HEMETOLOGY METHOD 02/17/2025 6:34 PM [facility] Blood Venous blood specimen / Unknown Venipuncture / Unknown 02/17/2025 3:40 PM EST 02/17/2025 3:40 PM EST Catie Isabel RETAIL SPECIALIST LAB BLOOD ORDERABLES Final Resu lt [facility] [address] [place] [address], * (ABNORMAL) Comprehensive metabolic panel (02/17/2025 3:40 PM EST) Sodium 139 133 - 145 mmol/L 02/17/2025 6:57 PM EST [facility] Potassium 4.4 3.5 - 5.5 mmol/L 02/17/2025 6:57 PM [facility] Chloride 103 96 - 110 mmol/L 02/17/2025 6:57 PM [facility] CO2 26 21 - 32 mmol/L 02/17/2025 6:57 PM [facility] Anion Gap 10 3 - 11 02/17/2025 6:57 PM [facility] Glucose 59(L) 70 - 100 mg/dL 02/17/2025 6:57 PM [facility] BUN 22 5 - 25 mg/dL 02/17/2025 6:57 PM [facility] Creatinine 0.85 0.50 - 1.10 mg/dL 02/17/2025 6:57 PM [facility] eGFR 71 >=60 mL/min/1. 73m2 02/17/2025 6:57 PM [facility] Comment:Calculation based on the Chronic Kidney Disease Epidemiology Collaboration (CKD-EPI) equation refit without adjustment for race. BUN/Creatinine Ratio 25.9 02/17/2025 6:57 PM [facility] Calcium 8.7 8.5 - 10.5 mg/dL 02/17/2025 6:57 PM [facility] AST (SGOT) 50(H) 10 - 42 unit/L 02/17/2025 6:57 PM [facility] ALT (SGPT) 39 10 - 60 unit/L 02/17/2025 6:57 PM [facility] Alkaline Phosphatase 140(H) 42 - 121 unit/L 02/17/2025 6:57 PM [facility] Total Protein 7.6 6.0 - 8.0 g/dL 02/17/2025 6:57 PM [facility] Albumin 3.7 3.2 - 5.0 g/dL 02/17/2025 6:57 PM EST [facility] Total Bilirubin 0.5 0.0 - 1.4 mg/dL 02/17/2025 6:57 PM EST [facility] Blood Venous blood specimen / Unknown Venipuncture / Unknown 02/17/2025 3:40 PM EST 02/17/2025 3:40 PM EST us Catie Isabel RETAIL SPECIALIST LAB BLOOD ORDERABLES Final Resu lt [facility] [address] [place] [address], * EGD Anesthesia - MAC; [facility] ENDOSCOPY (12/02/2024 12:38 PM EDT) Anatomical Region Laterality Modality Endoscopy 12/02/2024 12:2 8 PM EDT Impressions 12/02/2024 12:40 PM EDT - Grade I esophageal varices. - Portal hypertensive gastropathy. - Normal examined duodenum. - No specimens collected. Recommendation: - Continue present medications. - Repeat upper endoscopy in 1 year for surveillance. Narrative 12/02/2024 12:40 PM EDT [facility] Patient Name: Erin Mooney Procedure Date: [...] was normal. Procedure Code(s): --- Professional --- 78355, Esophagogastroduodenoscopy, flexible, transoral; diagnostic, including collection of [...] parts of digestive tract CPT copyright 2020 [employer]. All rights reserved. The codes documented in this report are preliminary and upon grounding engineer review may be revised to meet current compliance requirements. Charles Steinberg MD 12/02/2024 12:40:34 PM This report has been signed electronically.Charles Steinberg MD Number of Addenda: 0 Note Initiated On: 12/02/2024 12:28 PM Scope In: Scope Out: Endoscopy Department at [facility] - [address] [place] [phone] Procedure Note Charles Steinberg MD - 12/02/2024 [facility] Patient Name: Erin Mooney Procedure Date: [...] was normal. Procedure Code(s): --- Professional --- 12997, Esophagogastroduodenoscopy, flexible, transoral; diagnostic, including collection of [...] parts of digestive tract CPT copyright 2020 [employer]. All rights reserved. The codes documented in this report are preliminary and upon grounding engineer reviewmay be revised to meet current compliance requirements. Charles Steinberg MD 12/02/2024 12:40:34 PM This report has been signed electronically.Charles Steinberg MD Number of Addenda: 0 Note Initiated On: 12/02/2024 12:28 PM Scope In: Scope Out: Endoscopy Department at [facility] - [address] [place] [phone] IMPRESSION: - Grade I esophageal varices. - Portal hypertensive gastropathy. - Normal examined duodenum. - No specimens collected. Recommendation: - Continue present medications. - Repeat upper endoscopy in 1 year forsurveillance. Eliel Mejia MD GI~PROCEDURE ORDERABLES Final Re sult * Hepatitis C antibody (08/05/2024 2:25 PM EDT) Pathologist [facility] [place] Hepatitis C Antibody Negative Negative LAB CHEMISTRY METHOD 08/05/2024 10:04 PM EDT [facility] Blood Venous blood specimen / Unknown Venipuncture / Unknown 08/05/2024 2:25 PM EDT 08/05/2024 2:25 PM EDT Lori Vicente RETAIL SPECIALIST LAB BLOOD ORDERABLES Final Resu lt [facility] [address] [place] [address], * Colonoscopy (10/28/2023) Pathologist [facility] Colonoscopy no interpretation , abstracted Anatomical Region Laterality Modality Other Historical Provider HEALTH MAINTENANCE Final Result from Last 3 Months or Most Recently Relevant to Health Maintenance Additional Health Concerns Infection Onset Date Last Indicated Enteroaggregative E. coli (EAEC) 02/17/2025 02/17/2025 Insurance [place] - [place] Care Teams Director Of Vendor Management Relationship Specialty Start Date End Date Catie Isabel NP [address] [place] [address] PCP - General 09/30/23
--- OUTSIDE RECORDS SUMMARY | 2025-03-01 17:30 | XMS_ITS | Encounter Summary ---
Author Organization [facility] Address [address] [place], [place] [id number] Phone Care Team Providers Care Lead Technologist In Cytogenetics Name Role Phone Catie Isabel TELESALES MANAGER Primary Care Provider [phone]- [phone] Encounter Details Date Type Department Care Team (Late st Contact Info) Description 02/23/2024 Procedure Pass [facility], Ct Scan - [address] [address] Social History Tobacco Use Types Packs/Day Years [...] documented as of this encounter Care Teams Lead Technologist In Cytogenetics Relationship Specialty Start Date End Date Catie Isabel NP [address] [place] [address] PCP - General Nurse Practitioner 02/22/24 documented as of this encounter Additional Source Comments The information contained in this document represents components of the legal health record. It is not the complete legal health record.[facility]
--- OUTSIDE RECORDS SUMMARY | 2025-03-01 17:30 | XMS_ITS | Encounter Summary ---
Author Organization [facility] Address [address] [place] [id number] Phone Care Team Providers Care Vascular Technologist Name Role Phone Catie Isabel PLANTING MACHINE OPERATOR Primary Care Provider [phone]- [phone] Encounter Details Date Type Department Care Team (Late st Contact Info) Description 07/11/2024 Procedure Pass [facility], Ct Scan - [address] [address] Social History Tobacco Use Types Packs/Day Years [...] documented as of this encounter Care Teams Vascular Technologist Relationship Specialty Start Date End Date Catie Isabel NP [address] [place] [id number] PCP - General Nurse Practitioner 02/22/24 documented as of this encounter Additional Source Comments The information contained in this document represents components of the legal health record. It is not the complete legal health record.[facility]
== END 2025-03-01 14:50 | disposition home or self-care (01) ==
LOC: HO.HPS 14:02
PROVIDERS: PCP Nurse Practitioner Primary Care; Visit Provider Internal Medicine
DX: J84.9 Interstitial pulmonary disease, unspecified (principal); J47.9 Bronchiectasis, uncomplicated; J44.1 Chronic obstructive pulmonary disease with (acute) exacerbation; R09.02 Hypoxemia
CPT/HCPCS: 99213

== ENCOUNTER → 2025-03-01 14:02 | Outpatient (BNVA) | payer MEDICARE, MEDICAID, SELFPAY | PROVIDERS: PCP Nurse Practitioner Primary Care; Visit Provider Internal Medicine | DX: J84.9 Interstitial pulmonary disease, unspecified (principal); J47.9 Bronchiectasis, uncomplicated; J44.9 Chronic obstructive pulmonary disease, unspecified; R09.02 Hypoxemia | CPT/HCPCS: 99212 ==